=== PATIENT | female | born 1940 | race Caucasian/White ===

== ENCOUNTER 2022-05-01 08:39 | Outpatient (CLI) | payer MEDICARE, BC, SELFPAY ==
--- NOTE | 2022-05-01 | NM_ITS ---
Final Report Patient: ELISE GARCIA Facility:?[facility] Patient ID:?[id number] :?[id number] Study:?NM Cardiac Procedure MYOCARDIAL PERFUSION-05/01/2022 11:14:39 AM Ordering Physician:QUIANA MENDES Final Report: [facility] ? [facility] MYOCARDIAL PERFUSION SCAN, 05/01/2022 CLINICAL HISTORY: 81-year-old female. Dyspnea. Hypertension. Hyperlipidemia. Left bundle branch block. 5 feet 3 inches. 220 pounds. TECHNIQUE: (Resting SPECT and Stress Gated SPECT with wall motion and ejection fraction) Stress: Pharmacologic ? Walking Lexiscan (0.4 mg) (IV) Dose (Stress/Rest): 32.3 mCi / 8.2 mCi Tc-99m Sestamibi Comparison: None FINDINGS: There is good uptake of activity by the left ventricle. No left ventricular enlargement is noted. There is soft tissue attenuation. No other significant fixed or reversible defects are identified. The gated images demonstrate a normal left ventricular ejection fraction of 62 percent. No regional wall motion abnormalities are identified. IMPRESSION: 1) There is no evidence of significant myocardial ischemia or infarction. 2) Normal left ventricular ejection fraction of 62 percent. This study was jointly reviewed by radiology and cardiology. KALLIE NUNES M.D. [employer] [email or web address] VERO/josé luis D& Transcribed: 3:53 p.m. NIKO HARP M.D. Department of Cardiology josé luis/Dictated by: Kallie Nunes MD @ 05/01/2022 2:00:00 PM (Electronic Signature)
[2022-05-01 11:16] VITALS: BP 166/84; PULSE 82; RESP 16
[2022-05-01] MEDS: SODIUM CHLORIDE 0.9 % (FLUSH) 10 ML SYRINGE IVF (11:20)
[2022-05-01] MEDS: REGADENOSON 0.4 MG/5 ML SYRINGE IVP (11:21)
--- NOTE | 2022-05-01 14:55 | PM.ST ---
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 Blood pressure is 163/94 ventricular rate was 72. Standard Lexiscan protocol is done over the total 5 minute course. He had no symptoms at all was able to walk through these. There is no change of her pre-existing ST wave abnormality she saw. Impression: Negative a Lexiscan with no electrographic changes Follow up suggested: Await read from nuclear Medicine and Cardiology on nuclear portion, clinical correlation with this will be needed. Patient left this testing facility in excellent condition
== END 2022-05-01 08:40 | disposition home or self-care (01) ==
LOC: STRESS 08:39
PROVIDERS: PCP Nurse Practitioner Family; Visit Provider Nurse Practitioner Family
DX: R06.00 Dyspnea, unspecified (principal); I10 Essential (primary) hypertension; E78.5 Hyperlipidemia, unspecified; I44.7 Left bundle-branch block, unspecified
CPT/HCPCS: 78452; 93016; 93017; A9500; J2785

== ENCOUNTER 2022-05-23 14:21 | Outpatient (CLI) | payer MEDICARE, SELFPAY ==
--- NOTE | 2022-05-23 14:40 | CRLHL7_ITS ---
For Patients: As a result of the Cures Act, medical imaging exams and procedure reports are released immediately into your electronic medical record. You may view this report before your referring provider. If you have questions, please contact your health care provider. BILATERAL DIGITAL SCREENING MAMMOGRAM WITH COMPUTER-AIDED DETECTION AND TOMOSYNTHESIS, 05/23/2022 CLINICAL HISTORY: Routine screening exam. COMPARISON: 04/11/2020, 04/07/2019, 02/24/2018, 02/22/2017. TECHNIQUE: Digital mammogram in CC and MLO projections including computer-aided detection (CAD) and tomosynthesis. BREAST COMPOSITION: Scattered fibroglandular densities. FINDINGS: RIGHT Breast: No suspicious findings. LEFT Breast: Irregular lesion with distortion upper-outer quadrant 5 cm from the nipple. IMPRESSION: LEFT breast asymmetry/mass. RECOMMENDATIONS: Additional mammographic views of the LEFT breast including 3D spot-compression CC/MLO. LEFT breast ultrasound may also be required. The [facility] will contact the patient for follow-up. BI-RADS Category 0: Incomplete: Need Additional Imaging Evaluation and/or Prior Mammograms for Comparison Dictated by Jj Bates MD @ 06/12/2022 9:12:18 AM JR/Dictated by: Jj Bates MD @ 06/12/2022 9:12:00 AM (Electronically Signed)
== END 2022-05-23 14:22 | disposition home or self-care (01) ==
LOC: MAMMO 14:23
PROVIDERS: PCP Nurse Practitioner Family; Visit Provider Nurse Practitioner Family
DX: Z12.31 Encounter for screening mammogram for malignant neoplasm of breast (principal); N63.20 Unspecified lump in the left breast, unspecified quadrant
CPT/HCPCS: 77063; 77067

== ENCOUNTER 2022-06-19 10:30 | Outpatient (CLI) | payer MEDICARE, BC, SELFPAY ==
--- NOTE | 2022-06-19 10:45 | CRLHL7_ITS ---
For Patients: As a result of the Cures Act, medical imaging exams and procedure reports are released immediately into your electronic medical record. You may view this report before your referring provider. If you have questions, please contact your health care provider. LEFT DIGITAL DIAGNOSTIC MAMMOGRAM WITH TOMOSYNTHESIS AND COMPUTER-AIDED DETECTION, 06/19/2022 LEFT BREAST ULTRASOUND, 06/19/2022 CLINICAL HISTORY: LEFT breast mass/asymmetry. COMPARISON: 05/23/2022 TECHNIQUE: Digital LEFT mammogram in two projections with tomosynthesis and computer-aided detection. Real-time ultrasound imaging of LEFT breast with imaging documentation. BREAST COMPOSITION: There are scattered areas of fibroglandular density. FINDINGS: 3D spot compression CC/MLO LEFT breast mammogram submitted. Spiculated mass within the upper outer quadrant. Benign calcifications. Targeted sonogram performed to the upper outer quadrant LEFT breast at 2 o`clock 4 cm from the nipple. In this location, there is a taller than wide, hypoechoic, spiculated mass measuring 1.5 x 0.8 x 0.9 cm. LEFT axillary lymph node is present with preserved hilum. IMPRESSION: Suspicious spiculated, taller than wide mass in LEFT breast at 2 o`clock 4 cm from the nipple measuring 1.5 cm. RECOMMENDATION: Ultrasound-guided core needle biopsy. BI-RADS Category 5: Highly Suggestive of Malignancy Results and recommendations discussed with the patient. A lay language report of this examination will be provided to the patient. Dictated by Jj Bates MD @ 06/19/2022 11:46:23 AM CRL:aubrie RD/Dictated by: Jj Bates MD @ 06/19/2022 11:46:00 AM (Electronically Signed)
--- NOTE | 2022-06-19 11:15 | CRLHL7_ITS ---
For Patients: As a result of the Century Cures Act, medical imaging exams and procedure reports are released immediately into your electronic medical record. You may view this report before your referring provider. If you have questions, please contact your health care provider. PLEASE SEE LEFT DIAGNOSTIC MAMMOGRAM OF SAME DAY FOR COMBINED REPORT. CRL:aubrie RD/Dictated by: Jj Bates MD @ 06/19/2022 11:46:00 AM (Electronically Signed)
== END 2022-06-19 10:31 | disposition home or self-care (01) ==
LOC: MAMMO 10:34
PROVIDERS: PCP Nurse Practitioner Family; Visit Provider Nurse Practitioner Family
DX: N63.20 Unspecified lump in the left breast, unspecified quadrant (principal); R92.8 Other abnormal and inconclusive findings on diagnostic imaging of breast
CPT/HCPCS: 76642; 77065; G0279

== ENCOUNTER 2022-06-22 10:00 | Outpatient (CLI) | payer MEDICARE, BC, SELFPAY ==
--- NOTE | 2022-06-22 10:15 | CRLHL7_ITS ---
For Patients: As a result of the Century Cures Act, medical imaging exams and procedure reports are released immediately into your electronic medical record. You may view this report before your referring provider. If you have questions, please contact your health care provider. ULTRASOUND-GUIDED BREAST BIOPSY AND POST-BIOPSY DIGITAL MAMMOGRAM FOR BIOPSY MARKER PLACEMENT CLINICAL HISTORY: Suspicious lesion. COMPARISON STUDIES: 06/19/2022 TECHNIQUE: Real-time ultrasound with image documentation was used for targeting the breast lesion. Core biopsy specimens were obtained using an automated gun with a 18-gauge biopsy needle. Post-biopsy CC and ML digital mammograms were obtained to document position of the biopsy marker. CONSENT and TIME OUT: The procedure, risks, and alternatives were explained to the patient and a consent was signed. [place] Protocol was followed including pre-procedure verification that relevant information/documentation was available, reviewed and properly matched to the patient; consent accurate and complete; and equipment and supplies available. Time Out was conducted just prior to starting procedure to verify the four required elements: patient identity, correct side/site marked (if applicable), procedure, relevant images/results properly labeled and displayed (if applicable). PROCEDURE: The patient was positioned supine on the ultrasound table. The breast was prepped with ChloraPrep. 8 cc 1 percent lidocaine used for local anesthesia. Core samples were obtained. A sterile metal biopsy clip was placed percutaneously to narinder the lesion position within the breast. The specimens were placed in 10% formalin and sent to the pathology department. Pressure was held on the biopsy site until all bleeding subsided. The skin incision was closed with Steri-Strips. An ice pack was positioned over the biopsy site. Post-biopsy instructions were reviewed with the patient, and a written copy was given to her. LATERALITY: LEFT breast. LESION: Hypoechoic taller than wide spiculated mass measuring 1.5 x 0.8 x 0.9 cm at mid depth at 2 o`clock 4 cm from the nipple. SUSPICION FOR MALIGNANCY: High. NUMBER OF SAMPLES: 5 BIOPSY CLIP SHAPE: Coil. PROXIMITY OF CLIP TO TARGET: Within the lesion. IMPRESSION: Ultrasound-guided breast biopsy. When the pathology report is available, an addendum to this report will be made. ACR not applicable Dictated by Jj Bates MD @ 06/22/2022 11:03:13 AM/gamal RADHA/Dictated by: Jj Bates MD @ 06/22/2022 11:03:00 AM ----- ADDENDUM ----- Pathology consistent with invasive ductal carcinoma. This is concordant. Appropriate action recommended. Dictated by Jj Bates MD @ Jun 22 2022 11:03AM Signed by:?Jj Bates MD @06/22/2022 3:12:08 PM (Electronically Signed)
--- NOTE | 2022-06-22 10:30 | CRLHL7_ITS ---
For Patients: As a result of the Century Cures Act, medical imaging exams and procedure reports are released immediately into your electronic medical record. You may view this report before your referring provider. If you have questions, please contact your health care provider. PLEASE SEE LEFT ULTRASOUND-GUIDED BIOPSY OF SAME DAY. CRL:gamal RADHA/Dictated by: Jj Bates MD @ 06/22/2022 11:03:00 AM (Electronically Signed)
--- NOTE | 2022-07-02 15:50 | ONC.NURNOTE ---
Accompanied pt to surgical consult with Dr. Lamas and pt's son Anirudh and friend Betty. Per Dr. Lamas, pt to choose whether or not to have Breast MRI, as it would not likely affect surgical plan of either lumpectomy or mastectomy. Pt consider type of surgery and also whether to pursue genetic counseling as she does have a granddaughter. She will call BNN in a few days; BNN to f/u.
== END 2022-06-22 10:01 | disposition home or self-care (01) ==
PROVIDERS: PCP Nurse Practitioner Family; Visit Provider Nurse Practitioner Family
DX: C50.912 Malignant neoplasm of unspecified site of left female breast (principal); Z17.0 Estrogen receptor positive status [ER+]
CPT/HCPCS: 19083; 77065; 88305; 88360; 88361; A4648; A4649

== ENCOUNTER 2022-07-10 08:14 | Outpatient (CLI) | payer MEDICARE, BC, SELFPAY ==
--- OUTSIDE RECORDS SUMMARY | 2022-07-10 08:17 | XMS_ITS | Encounter Summary ---
:1940 Author Organization [facility] Address [address] [place] [address] Care Team Providers Name Role Phone Igor Horn P.A.-C. Primary Care Provider [phone] Encounter Details Date Type Department Care Team Description 10/23/2021 Clinical Communication Department of Igor Byrd, Medicine, Bertha Langley [facility], in [address] [address] [place], [place] [phone] (Work) [phone] Social History Tobacco Use Types Packs/Day Years Used Date Smoking Tobacco: Never Smokeless Tobacco: Never Alcohol Use Standard Drinks/Week Comments Yes 1 (1 standard drink = 0.6 oz pure alcoho l) very rarely Alcohol Habits Answer Date Recorded How often do you have a drink containing Monthly or less 03/16/2022 alcohol? How many drinks containing alcohol do you have Patient does not drink 03/16/2022 on a typical day when you are drinking? How often do you have six or more drinks on one Never 03/16/2022 occasion? Comment: very rarely 02/06/2018 Social Isolation Answer Date Recorded In a typical week, how many times do you More than three bisi es a week 03/16/2022 talk on the phone with family, friends, or neighbors? How often do you get together with friends Once a week 03/16/2022 or relatives? How often do you attend judaism or More than 4 times per year 03/16/2022 adventism services? Do you belong to any clubs or Yes 03/16/2022 organizations such as judaism groups, unions, fraternal or athletic groups, or school groups? How often do you attend meetings of the More than 4 times [facility] year 03/16/2022 clubs or organizations you belong to? Are you now , , , 03/16/2022 , never or living with a partner? Physical Activity Answer Date Recorded On average, how many days per week do you engage in moderate to 5 days 03/16/2022 strenuous exercise (like walking fast, running, jogging, dancing, swimming, biking, or other activities that cause a light or heavy sweat)? On average, how many minutes do you engage in exercise at is 30 min 03/16/2022 level? Stress Answer Date Recorded Do you feel stress - tense, restless, nervous, or Only a lit tle 03/16/2022 anxious, or unable to sleep at night because your mind is troubled all the time - these days? Financial Resource Strain Answer Date Recorded How hard is it for you to pay for the very basics like Not h sheyla at all 03/16/2022 food, housing, medical care, and heating? Intimate Partner Violence Answer Date Recorded Within the last year, have you been afraid of your partner o r No 03/16/2022 ex-partner? Within the last year, have you been humiliated or emotionall y No 03/16/2022 abused in other ways by your partner or ex-partner? Within the last year, have you been kicked, hit, slapped, or No 03/16/2022 otherwise physically hurt by your partner or ex-partner? Within the last year, have you been raped or forced to have any No 03/16/2022 kind of sexual activity by your partner or ex-partner? Food Insecurity Answer Date Recorded Within the past 12 months, you worried that your food would Never true 03/16/2022 run out before you got money to buy more. Within the past 12 months, the food you bought just didn't N ever true 03/16/2022 last and you didn't have money to get more. Transportation Needs Answer Date Recorded In the past 12 months, has lack of transportation kept you f rom No 03/16/2022 medical appointments or from getting medications? In the past 12 months, has lack of transportation kept you f rom No 03/16/2022 meetings, work, or getting things needed for daily living? Housing Stability Answer Date Recorded In the last 12 months, was there a time when you were not ab le No 03/16/2022 to pay the mortgage or rent on time? In the last 12 months, how many places have you lived? 2 02/15/2021 In the last 12 months, was there a time when you did not hav e a No 03/16/[address] or slept in a long term (including now)? Education Answer Date Recorded What is the highest level of school Master's degree (e.g., M Yady, MS, 02/15/2021 you have completed or the highest Roland, MEd, FINANCE OFFICER, MARIE) degree you have received? Sex Assigned at Date Recorded Female 06/26/2021 8:35 AM CDT documented as of this encounter Plan of Treatment Not on filedocumented as of this encounter Visit Diagnoses Not on filedocumented in this encounter Care Teams Supervisor [employer]umping [employer] Relationship Specialty Start Date End Date Igor Horn P.A.-C. PCP - General 06/14/18 03/15/22 [address] [place] [phone] documented as of this encounter
--- OUTSIDE RECORDS SUMMARY | 2022-07-10 08:17 | XMS_ITS | Encounter Summary ---
:1940 Author Organization [facility] Address [address] [place] [address] Care Team Providers Name Role Phone Igor Horn P.A.-C. Primary Care Provider [phone] Reason for Visit Reason Comments Med Refill Encounter Details Date Type Department Care Team Description 02/16/2022 Refill Department of Family Medicine, Igor Ross P.A.-C. Med Refill [facility], in [address] [place] [phone] [place] [address] [place] [address] [phone] Social History Tobacco Use Types Packs/Day Years [...] or relatives? How often do you attend mu-ism or More than 4 times per year 03/16/2022 methodist services? Do you belong to any clubs or Yes 03/16/2022 organizations such as mu-ism groups, unions, fraternal or athletic groups, or school groups? How often do you attend meetings of the More than 4 times pe r year 03/16/2022 clubs or organizations you belong [...] minutes do you engage in exercise at th is 30 min 03/16/2022 level? Stress Answer [...] place to sleep or slept in a penitentiary (including now)? Education Answer Date Recorded What is the highest level of school Master's degree (e.g., M A, MS, 02/15/2021 you have completed or the highest Roland, MEd, PROCUREMENT ENGINEER, MARIE) degree you have received? Sex Assigned at Date Recorded Female 06/26/2021 8:35 AM CDT documented as of this encounter Plan of Treatment Not on filedocumented as of this encounter Visit Diagnoses Not on filedocumented in this encounter Care Teams Mortgage Underwriter Relationship Specialty Start Date End Date Igor Horn P.A.-C. PCP - General 06/14/18 03/15/22 [address] [place] [phone] documented as of this encounter
--- OUTSIDE RECORDS SUMMARY | 2022-07-10 08:17 | XMS_ITS | Encounter Summary ---
:1940 Author Organization [facility] Address [address] [place] [address] Care Team Providers Name Role Phone Igor Horn P.A.-C. Primary Care Provider [phone] Reason for Visit Reason Comments Med Refill Encounter Details Date Type Department Care Team Description 02/17/2022 Refill Department of Family Medicine, Igor Ross P.A.-C. Med Refill [facility], in [address] [place] [phone] [place] [address] [place] [address] [phone] Social History Tobacco Use Types Packs/Day Years [...] or relatives? How often do you attend congregation or More than 4 times per year 03/16/2022 nondenominational services? Do you belong to any clubs or Yes 03/16/2022 organizations such as congregation groups, unions, fraternal or athletic groups, or [...] place to sleep or slept in a jail (including now)? Education Answer Date Recorded What is the highest level of school Master's degree (e.g., M A, MS, 02/15/2021 you have completed or the highest Roland, MEd, HOUSECALLS NURSE, MARIE) degree you have received? Sex Assigned at Date Recorded Female 06/26/2021 8:35 AM CDT documented as of this encounter Miscellaneous Notes Telephone Encounter - Jacob Parish - 02/19/2022 7:18 AM CDT Added to another encounter documented in this encounter Plan of Treatment Not on filedocumented as of this encounter Visit Diagnoses Not on filedocumented in this encounter Care Teams Broomcorn Scraper Relationship Specialty Start Date End Date Igor Horn P.A.-C. PCP - General 06/14/18 03/15/22 [address] [place] [phone] documented as of this encounter
--- OUTSIDE RECORDS SUMMARY | 2022-07-10 08:17 | XMS_ITS | Encounter Summary ---
:1940 Author Organization [facility] Address [address] [place] [address] Care Team Providers Name Role Phone Igor Horn P.A.-C. Primary Care Provider [phone] Encounter Details Date Type Department Care Team Description 02/19/2022 Clinical Communication Department of Igor Byrd, Medicine, Bertha Langley [facility], in [address] [address] [place], [place] [phone] (Work) [phone] Social History Tobacco Use Types Packs/Day Years [...] or relatives? How often do you attend synagogue or More than 4 times per year 03/16/2022 cheondoism services? Do you belong to any clubs or Yes 03/16/2022 organizations such as synagogue groups, unions, fraternal or athletic groups, or school groups? How often do you attend meetings of the More than 4 times [facility] year 03/16/2022 clubs or organizations you belong [...] place to sleep or slept in a fpc (including now)? Education Answer Date Recorded What is the highest level of school Master's degree (e.g., M A, MS, 02/15/2021 you have completed or the highest Roland, MEd, VOCATIONAL REHABILITATION CONSULTANT, MARIE) degree you have received? Sex Assigned at Date Recorded Female 06/26/2021 8:35 AM CDT documented as of this encounter Miscellaneous Notes Telephone Encounter - Clarice Reaves LAntwanP.N. - 02/19/2022 9:40 AM CDT Taken care of in a portal message. Telephone Encounter - Fide Ventura - 02/19/2022 9:30 AM CDT Reason for Communication: Patient calling states she was diagnosed with COVID. She does has asthma. Inquiring if she would be a candidate for the Paxlovid medication? Please advise. Current Can Nursing/Provider leave a detailed message?: no Did the patient refuse triage through Nurse line? (for symptom based concerns): n/a Action Needed: Call back Name of Medication (if relevant): [facility] Please send all scheduling replies to scheduling pool. documented in this encounter Plan of Treatment Not on filedocumented as of this encounter Visit Diagnoses Not on filedocumented in this encounter Care Teams Draw String Knotter Relationship Specialty Start Date End Date Igor Horn P.A.-C. PCP - General 06/14/18 03/15/22 [address] [place] [phone] documented as of this encounter
--- OUTSIDE RECORDS SUMMARY | 2022-07-10 08:17 | XMS_ITS | Encounter Summary ---
:1940 Author Organization [facility] Address [address] [place] [address] Care Team Providers Name Role Phone Igor Horn P.A.-C. Primary Care Provider [phone] Reason for Referral Outpatient (Routine) - Closed Specialty Diagnoses / Procedures Referred By Contact Refer red To Contact Diagnoses Asthma Intrinsic (HCC) Valdemar Ma M.D. [facility] Procedures Spirometry [address] [place] [phone] Referral ID Status Reason Start Date Expiration Date Visits Requ ested Visits Authorized [id number] Closed 02/12/2022 02/12/2023 1 1 Encounter Details Date Type Department Care Team Description 02/12/2022 Clinical Communication Division of Allergic Valdemar Ma Diseases in Geovani Ryder M.D. [address] [place] [phone] Social History Tobacco Use Types Packs/Day Years [...] or relatives? How often do you attend restoration or More than 4 times per year 03/16/2022 rastafarian services? Do you belong to any clubs or Yes 03/16/2022 organizations such as restoration groups, unions, fraternal or athletic groups, or [...] place to sleep or slept in a longterm (including now)? Education Answer Date Recorded What is the highest level of school Master's degree (e.g., M A, MS, 02/15/2021 you have completed or the highest Roland, MEd, WATER TREATMENT PLANT MECHANIC, MARIE) degree you have received? Sex Assigned at Date Recorded Female 06/26/2021 8:35 AM CDT documented as of this encounter Miscellaneous Notes Telephone Encounter - Fabiana Mejia - 02/12/2022 10:12 AM CDT Cale Ma, Patient is coming back to follow up with you. Last Seen: 03/07/21 Future Appointment Date: 03/20/22 Prior Indication(s):Asthma New Symptoms: No Testing Order: Please order breathing test Thank you! documented in this encounter Plan of Treatment Not on filedocumented as of this encounter Results Spirometry (03/20/2022 8:51 AM CDT) [facility] Time Signature VC MAX POST 2.57 L 03/20/2022 [place] [facility] 2:58 PM CDT SUITE PostFVC 2.31 L 03/20/2022 [place] [facility] 2:58 PM CDT SUITE PostFEV1 1.59 L 03/20/2022 [place] [facility] 2:58 PM CDT SUITE FEV1/FVC POST 68.91 % 03/20/2022 [place] [facility] 2:58 PM CDT SUITE FEF 25-75 % 0.97 L/s 03/20/2022 [place] [facility] 2:58 PM CDT SUITE PEF POST 4.78 L/s 03/20/2022 [place] 2:58 PM CDT SUITE FET POST 16.80 sec 03/20/2022 [place] [facility] 2:58 PM CDT SUITE VC MAX PRE 2.24 L 03/20/2022 [place] [facility] 2:58 PM CDT SUITE FVC 2.12 L 03/20/2022 [place] [facility] 2:58 PM CDT SUITE FEV1 1.40 L 03/20/2022 [place] 2:58 PM CDT SUITE FEV1/FVC 66.11 % 03/20/2022 [place] [facility] 2:58 PM CDT SUITE LLJ00-13% 0.82 L/s 03/20/2022 [place] [facility] 2:58 PM CDT SUITE PEF PRE 4.64 L/s 03/20/2022 [place] 2:58 PM CDT SUITE FET PRE 18.40 sec 03/20/2022 [place] 2:58 PM CDT SUITE SUBSTANCE POST Albuterol 03/20/2022 [place] 2:58 PM CDT SUITE DOSE POST 2 Puff 03/20/2022 [place] 2:58 PM CDT SUITE % PRED VC MAX 91 % % 03/20/2022 [place] 2:58 PM CDT SUITE FVC% 86 % % 03/20/2022 [place] 2:58 PM CDT SUITE FEV1% 75 % % 03/20/2022 [place] [facility] 2:58 PM CDT SUITE % PRED 86 % % 03/20/2022 [facility] FEV1/FVC 2:58 PM CDT SUITE % PRED FEF 54 % % 03/20/2022 [place] [facility] 25-75% 2:58 PM CDT SUITE % PRED PEF 91 % % 03/20/2022 [facility] 2:58 PM CDT SUITE PRED VC MAX 2.46 03/20/2022 [facility] 2:58 PM CDT SUITE PRED FVC 2.46 03/20/2022 [facility] 2:58 PM CDT SUITE PRED FEV 1 1.87 03/20/2022 [facility] 2:58 PM CDT SUITE PRED FEV1/FVC 77.2 03/20/2022 [facility] 2:58 PM CDT SUITE PRED FEF 1.53 03/20/2022 [facility] 25-75% 2:58 PM CDT SUITE PRED PEF 5.1 03/20/2022 [facility] 2:58 PM CDT SUITE Specimen (Source) Anatomical Collection Method Collection Time Re ceived Time Location / / Volume Laterality 03/20/2022 8:51 AM CDT Impressions [facility] - 03/20/2022 2:58 PM C DT within normal limits Narrative This result has an attachment that is no t available. Procedure Note Valdemar Ma M.D. - 03/20/2022For matting of this note might be different from the original. IMPRESSION: within normal limits Valdemar Ma M.D. PFT ORDERABLES Performing Organization Address City/State/ZIP Code Phon e Number [facility] NA documented in this encounter Visit Diagnoses Diagnosis Asthma Intrinsic (HCC) - Primary Asthma Intrinsic (HCC) documented in this encounter Care Teams Night Worker Relationship Specialty Start Date End Date Igor Horn P.A.-C. PCP - General 06/14/18 03/15/[address] [place] [phone] documented as of this encounter
--- OUTSIDE RECORDS SUMMARY | 2022-07-10 08:17 | XMS_ITS | Encounter Summary ---
:1940 Author Organization [facility] Address [address] [place] [address] Care Team Providers Name Role Phone Igor Horn P.A.-C. Primary Care Provider [phone] Reason for Visit Reason Onset Date Comments Testing For Upper Respiratory Virus Symptoms 10/23/2021 Encounter Details Date Type Department Care Team Description 10/23/2021 External Outreach Department of [facility] Kartik Jimenez Contact With And (Suspected) Exposure To COVID-19; Medicine, [facility] John Durant Infection Upper Respiratory Building, in [address] [place], [place] [address] [facility] [address] [place], [place] [phone] (Work) [phone] Social History Tobacco Use Types Packs/Day Years [...] or relatives? How often do you attend restorationist or More than 4 times per year 03/16/2022 jehovah's witness services? Do you belong to any clubs or Yes 03/16/2022 organizations such as restorationist groups, unions, fraternal or athletic groups, or [...] place to sleep or slept in a nursing home (including now)? Education Answer Date Recorded What is the highest level of school Master's degree (e.g., M A, MS, 02/15/2021 you have completed or the highest Roland, MEd, HISTOPATH TECH, MARIE) degree you have received? Sex Assigned at Date Recorded Female 06/26/2021 8:35 AM CDT documented as of this encounter Progress Notes Trang Bueno, R.N. - 10/23/2021 9:57 AM CST Encounter created for symptomatic infectious disease screening with possible COVID, Influenza, RSV, and/or Group A Strep testing. N MAKER HAND documented in this encounter Plan of Treatment Not on filedocumented as of this encounter Procedures Procedure Name Priority Date/Time Associated Diagnosis Comme nts SARS CORONAVIRUS-2 Routine 10/23/2021 2:57 PM Contact With And Results for this RNA, V CHAIN MAKER HAND (Suspected) Exposure procedu re are in To COVID-19 the results section. SARS-COV-2, FLU Routine 10/23/2021 2:56 PM Result s for this A+B, AND RSV PCR, V CHAIN MAKER HAND procedur e are in the results section. RSV RNA PCR DETECT, Routine 10/23/2021 2:56 PM Re sults for this V CHAIN MAKER HAND procedure are i n the results section. documented in this encounter Results SARS Coronavirus-2 RNA, V Symptomatic (10/23/2021 2:57 PM CHAIN MAKER HAND) [facility] gist Method Time Signature SARS-CoV-2 Swab, 10/24/2021 MKTO Specimen Nasopharynx 12:21 PM Source CHAIN MAKER HAND SARS CoV-2 Undetected Undetected 10/24/2021 MKTO RNA, TMA 12:21 PM CHAIN MAKER HAND Comment: SARS-CoV-2 RNA absent. This result does not rule out COVID-19 in the patient, as the sensitivity of the test depends o n the timing of the specimen collection and the quality of the specim en. Result should be correlated with patient's history and clinical presentat ion. ----ADDITIONAL INFORMATION---- This molecular amplification test was pe rformed using the Aptima SARS-CoV-2 assay ([employer] Inc[employer] on the Fu[employer] Solutionss tem under emergency use authorization (EUA) by the U.S. Food and Drug Administ ration. Fact sheets for this EUA assay can be fo und at the following links: For Healthcare Providers: https://www.fd a.gov/media/830971/download For Patients: https://www.fda.gov/media/ 178664/download Specimen Anatomical Collection Method Collection Time Receive d Time (Source) Location / / Volume Laterality Varies 10/23/2021 2:57 PM 2 (Nasopharynx) CHAIN MAKER HAND 10:30 PM CHAIN MAKER HAND Kartik Jimenez D.O. LAB MICROBIOLOGY - GENERAL O RDERABLES Performing Organization Address City/State/ZIP Code Phon e Number [facility]- [address] [place] [phone] [place] [address] System in [place] [address] [place] [address] RSV RNA PCR Detect, V (10/23/2021 2:56 PM CHAIN MAKER HAND) Analysis Performed At [facility] logist Time Signature RSV RNA PCR Undetected Undetected 10/25/2021 SDS 1:08 PM CHAIN MAKER HAND Comment: RSV RNA is absent. RSV Specimen Source Nasopharynx 10/25/2021 1:08 PM CHAIN MAKER HAND SDSC Comment: ----ADDITIONAL INFORMATION---- Testing was performed using the leann In fluenza A/B & RSV UC assay ([employer] on the leann 68 00 / 8800 System, and only the RSV portion of this assay has been validated for testing. This test was developed and its performa nce characteristics determined by [facility] in a manner consistent with CLIA requirements. This test has not been cleared or approved by the U.S. Mark d and Drug Administration. Specimen Anatomical Collection Method Collection Time Receive d Time (Source) Location / / Volume Laterality Varies 10/23/2021 2:56 PM 6:15 CHAIN MAKER HAND PM CHAIN MAKER HAND Kartik Jimenez D.O. LAB MICROBIOLOGY - GENERAL O RDERABLES Performing Organization Address City/State/ZIP Code Phon e Number [facility] [address] [place], [place] [address] SUPPORT CENTER [facility] [place] [address] Laboratory Medicine and Pathology [address] [place] (ABNORMAL) SARS-CoV-2, Flu A+B, and RSV PCR, V (10/23/2021 2:56 PM CHAIN MAKER HAND) [facility] Method Time Signature Influenza A Detected (A) Undetected 10/24/2021 [facility] RNA PCR 11:22 PM CHAIN MAKER HAND Comment: Influenza A RNA present. Influenza B RNA PCR Undetected Undetected 10/24/2021 11:22 P M CHAIN MAKER HAND [facility] Comment: Influenza B RNA absent. SARS CoV-2 RNA PCR Undetected Undetected 10/24/2021 11:22 PM CHAIN MAKER HAND [facility] Comment: SARS-CoV-2 RNA absent. This result does not rule out COVID-19 in the patient, as the sensitivity of the test depends o n the timing of the specimen collection and the quality of the specim en. Result should be correlated with patient's history and clinical presentat ion. SARS-CoV-2 & Flu A/B Specimen Source Nasopharynx 0 10/24/2021 11:22 PM CHAIN MAKER HAND [facility] Comment: ----ADDITIONAL INFORMATION---- This PCR test is performed using the cob as SARS-CoV-2 & Influenza A/B assay ([employer]enn[employer] on the c bala 6800 / 8800 Systems, and it has received Emergency Use Authorization (EU A) by the U.S. Food and Drug Administration. Fact sheets for this Emergency Use Autho rization (EUA) assay can be found at the following links: https://www.fda.gov/media/442185/downloa d for Healthcare Providers https://www.fda.gov/media/413337/downloa d for Patients Specimen Anatomical Collection Method Collection Time Receive d Time (Source) Location / / Volume Laterality Varies 10/23/2021 2:56 PM 6:15 CHAIN MAKER HAND PM CHAIN MAKER HAND Kartik Jimenez D.O. LAB MICROBIOLOGY - GENERAL O RDERAGIOVANI Performing Organization Address City/State/[facility] Code Phon e Number [facility] [address] [place], [place] [address] SUPPORT CENTER [facility] [address] Laboratory Medicine and Pathology [address] [place] documented in this encounter Visit Diagnoses Diagnosis Contact With And (Suspected) Exposure To COVID-19 Infection Upper Respiratory documented in this encounter Additional Health Concerns Infection Onset Date Last Indicated Resolved Time COVID19 Pending 10/23/2021 10/23/2021 10/24/2021 12:22 PM CHAIN MAKER HAND documented as of this encounter Care Teams Programming Development Project Manager Relationship Specialty Start Date End Date Igor Horn P.A.-C. PCP - General 06/14/18 03/15/22 [address] [place] [phone] documented as of this encounter
--- OUTSIDE RECORDS SUMMARY | 2022-07-10 08:17 | XMS_ITS | Encounter Summary ---
:1940 Author Organization [facility] Address [address] [place] [address] Care Team Providers Name Role Phone Igor Horn P.A.-C. Primary Care Provider [phone] Reason for Visit Reason Comments Med Refill Encounter Details Date Type Department Care Team Description 02/16/2022 Refill Department of Family Medicine, Igor Ross P.A.-C. Med Refill [facility], in [address] [place] [phone] [place] [address] [place] [address] [phone] Social History Tobacco Use Types Packs/Day Years [...] or relatives? How often do you attend sikh or More than 4 times per year 03/16/2022 taoism services? Do you belong to any clubs or Yes 03/16/2022 organizations such as sikh groups, unions, fraternal or athletic groups, or [...] place to sleep or slept in a care home (including now)? Education Answer Date Recorded What is the highest level of school Master's degree (e.g., M A, MS, 02/15/2021 you have completed or the highest Roland, MEd, DELICATESSEN DEPARTMENT MANAGER, MARIE) degree you have received? Sex Assigned at Date Recorded Female 06/26/2021 8:35 AM CDT documented as of this encounter Plan of Treatment Not on filedocumented as of this encounter Visit Diagnoses Not on filedocumented in this encounter Care Teams Transcription Specialist Relationship Specialty Start Date End Date Igor Horn P.A.-C. PCP - General 06/14/18 03/15/22 [address] [place] [phone] documented as of this encounter
--- OUTSIDE RECORDS SUMMARY | 2022-07-10 08:17 | XMS_ITS | Encounter Summary ---
:1940 Author Organization [facility] Address [address] [place] [address] Care Team Providers Name Role Phone Igor Horn P.A.-C. Primary Care Provider [phone] Reason for Visit Reason Comments Med Refill Encounter Details Date Type Department Care Team Description 02/18/2022 Refill Department of Family Medicine, Igor Ross P.A.-C. Med Refill [facility], in [address] [place] [phone] [place] [address] [place] [address] [phone] Social History Tobacco Use Types Packs/Day Years [...] or relatives? How often do you attend rastafarian or More than 4 times per year 03/16/2022 rastafari services? Do you belong to any clubs or Yes 03/16/2022 organizations such as rastafarian groups, unions, fraternal or athletic groups, or [...] have completed or the highest Roland, MEd, ALPACA FARMER, MARIE) degree you have received? Sex Assigned at Date Recorded Female 06/26/2021 8:35 AM CDT documented as of this encounter Miscellaneous Notes Telephone Encounter - Jacob Parish - 02/19/2022 7:19 AM CDT Pravastatin is Lab Results Component Value Date TSH 2.8 02/15/2021 TSH lab already scheduled documented in this encounter Plan of Treatment Not on filedocumented as of this encounter Visit Diagnoses Not on filedocumented in this encounter Care Teams Nursing Consultant Relationship Specialty Start Date End Date Igor Horn P.A.-C. PCP - General 06/14/18 03/15/22 [address] [place] [phone] documented as of this encounter
--- OUTSIDE RECORDS SUMMARY | 2022-07-10 08:17 | XMS_ITS | Encounter Summary ---
:1940 Author Organization [facility] Address [address] [place] [address] Care Team Providers Name Role Phone Elsewhere, Pcp Primary Care Provider Unavailable Reason for Visit Reason Comments Pre-visit Intake Encounter Details Date Type Department Care Team Description 03/16/2022 Clinical Communication Visit Review in Pr e-visit Intake [address] [address] Social History Tobacco Use Types Packs/Day Years [...] or relatives? How often do you attend holiness or More than 4 times per year 03/16/2022 mandaen services? Do you belong to any clubs or Yes 03/16/2022 organizations such as holiness groups, unions, fraternal or athletic groups, or [...] place to sleep or slept in a senior care (including now)? Education Answer Date Recorded What is the highest level of school Master's degree (e.g., Giuliano Conteh, MS, 02/15/2021 you have completed or the highest Roland, MEd, ENGINEERING PROJECT MANAGER, MARIE) degree you have received? Sex Assigned at Date Recorded Female 06/26/2021 8:35 AM CDT documented as of this encounter Plan of Treatment Not on filedocumented as of this encounter Visit Diagnoses Not on filedocumented in this encounter Additional Health Concerns Infection Onset Date Last Indicated Resolved Time COVID19 Pending 03/16/2022 03/16/2022 03/16/2022 11:54 PM CDT documented as of this encounter Care Teams Bicycle Repairman Relationship Specialty Start Date End Date Elsewhere, Pcp PCP - General Internal Medicine 03/16/22 documented as of this encounter
--- OUTSIDE RECORDS SUMMARY | 2022-07-10 08:17 | XMS_ITS | Encounter Summary ---
:1940 Author Organization [facility] Address [address] [place] [address] Care Team Providers Name Role Phone Elsewhere, Pcp Primary Care Provider Unavailable Reason for Visit Reason Comments Allergy Testing Spirometry Outpatient (Routine) - Closed Specialty Diagnoses / Procedures Referred By Contact Refer red To Contact Diagnoses Asthma Intrinsic ([facility]) Valdemar Ma M.D. [facility] Procedures Spirometry [address] [place] [phone] Referral ID Status Reason Start Date Expiration Date Visits Requ ested Visits Authorized [id number] Closed 02/12/2022 02/12/2023 1 1 Encounter Details Date Type Department Care Team Description 03/20/2022 Clinical Support Division of Allergic Valdemar Ma M.D. [address] [place] [phone] Asthma Intrinsic Diseases in [place] Dominique R.N. ([facility]) [place], [place] [address] [place] [phone] Social History Tobacco Use Types Packs/Day Years [...] or relatives? How often do you attend jain or More than 4 times per year 03/16/2022 synagogue services? Do you belong to any clubs or Yes 03/16/2022 organizations such as jain groups, unions, fraEpiSensor or athletic groups, or school groups? How [...] have completed or the highest Roland, MEd, SIGN MAINTENANCE, MARIE) degree you have received? Sex Assigned at Date Recorded Female 06/26/2021 8:35 AM CDT documented as of this encounter Plan of Treatment Not on filedocumented as of this encounter Procedures Procedure Name Priority Date/Time Associated Comments Diagnosis NC BRONCHODILATION Routine 03/20/2022 8:51 Asthma Intrinsic Re sults for this RESPONSIVENESS AM CDT (HCC) procedure are in the results section. documented in this encounter Results Spirometry (03/20/2022 8:51 AM CDT) Analysis Performed At Patho logist Time Signature VC MAX POST 2.57 L 03/20/2022 [facility] 2:58 PM CDT SUITE PostFVC 2.31 L 03/20/2022 [facility] 2:58 PM CDT SUITE PostFEV1 1.59 L 03/20/2022 [facility] 2:58 PM CDT SUITE FEV1/FVC POST 68.91 % 03/20/2022 [place] [facility] 2:58 PM CDT SUITE FEF 25-75 % 0.97 L/s 03/20/2022 [place] [facility] 2:58 PM CDT SUITE PEF POST 4.78 L/s 03/20/2022 [place] 2:58 PM CDT SUITE FET POST 16.80 sec 03/20/2022 [place] [facility] 2:58 PM CDT SUITE VC MAX PRE 2.24 L 03/20/2022 [place] [facility] 2:58 PM CDT SUITE FVC 2.12 L 03/20/2022 [place] [facility] 2:58 PM CDT SUITE FEV1 1.40 L 03/20/2022 [place] [facility] 2:58 PM CDT SUITE FEV1/FVC 66.11 % 03/20/2022 [place] [facility] 2:58 PM CDT SUITE PET25-97% 0.82 L/s 03/20/2022 [place] [facility] 2:58 PM CDT SUITE PEF PRE 4.64 L/s 03/20/2022 [place] [facility] 2:58 PM CDT SUITE FET PRE 18.40 sec 03/20/2022 [place] [facility] 2:58 PM CDT SUITE SUBSTANCE POST Albuterol 03/20/2022 [place] [facility] 2:58 PM CDT SU[address] DOSE POST 2 Puff 03/20/2022 [place] [facility] 2:58 PM CDT SUITE % PRED VC MAX 91 % % 03/20/2022 [place] [facility] 2:58 PM CDT SUITE FVC% 86 % % 03/20/2022 [place] [facility] 2:58 PM CDT SUITE FEV1% 75 % % 03/20/2022 [place] [facility] 2:58 PM CDT SUITE % PRED 86 % % 03/20/2022 [place] [facility] FEV1/FVC 2:58 PM CDT SUITE % PRED FEF 54 % % 03/20/2022 [facility] 25-75% 2:58 PM CDT SUITE % PRED PEF 91 % % 03/20/2022 [place] [facility] 2:58 PM CDT SUITE PRED VC MAX 2.46 03/20/2022 [place] [facility] 2:58 PM CDT SUITE PRED FVC 2.46 03/20/2022 [facility] 2:58 PM CDT SUITE PRED FEV 1 1.87 03/20/2022 [place] [facility] 2:58 PM CDT SUITE PRED FEV1/FVC 77.2 03/20/2022 [facility] 2:58 PM CDT SU[address] PRED FEF 1.53 03/20/2022 [facility] 25-75% 2:58 PM CD[address] SU[address] PRED PEF 5.1 03/20/2022 [facility] 2:58 PM CDT SUITE Specimen (Source) Anatomical Collection Method Collection Time Re ceived Time Location / / Volume Laterality 03/20/2022 8:51 AM CDT Impressions [facility] - 03/20/2022 2:58 PM C DT within normal limits Narrative This result has an attachment that is no t available. Procedure Note Valdemar Ma M.D. - 03/20/2022For matting of this note might be different from the original. IMPRESSION: within normal limits Valdemar Ma M.D. PFT ORDERABLES Performing Organization Address City/State/ZIP Code Phon e Number [facility] NA documented in this encounter Visit Diagnoses Diagnosis Asthma Intrinsic (HCC) documented in this encounter Care Teams Flexographic Printing Press Operator Relationship Specialty Start Date End Date Elsewhere, Pcp PCP - General Internal Medicine 03/16/22 documented as of this encounter
--- OUTSIDE RECORDS SUMMARY | 2022-07-10 08:17 | XMS_ITS | Encounter Summary ---
:1940 Author Organization [facility] Address [address] [place] [address] Care Team Providers Name Role Phone Elsewhere, Pcp Primary Care Provider Unavailable Reason for Visit Reason Comments Med Refill Encounter Details Date Type Department Care Team Description 02/19/2022 Refill Department of Family Medicine, Igor Ross P.A.-C. Med Refill [facility], in [address] [place] [phone] [place] [address] [place] [address] [phone] Social History Tobacco Use Types Packs/Day Years [...] or relatives? How often do you attend hindu or More than 4 times per year 03/16/2022 tenriism services? Do you belong to any clubs or Yes 03/16/2022 organizations such as hindu groups, unions, fraternal or athletic groups, or [...] place to sleep or slept in a fdc (including now)? Education Answer Date Recorded What is the highest level of school Master's degree (e.g., Giuliano Conteh, MS, 02/15/2021 you have completed or the highest Roland, MEd, MACHINE GUN MECHANIC, MARIE) degree you have received? Sex [...] documented as of this encounter Care Teams Oracle Database Developer Relationship Specialty Start Date End Date Elsewhere, Pcp PCP - General Internal Medicine 03/16/22 documented as of this encounter
--- OUTSIDE RECORDS SUMMARY | 2022-07-10 08:17 | XMS_ITS | Encounter Summary ---
:1940 Author Organization [facility] Address [address] [place] [address] Care Team Providers Name Role Phone Igor Horn P.A.-C. Primary Care Provider [phone] Encounter Details Date Type Department Care Team Description 10/25/2021 Orders Only [facility] Express Care Nimisha Deutsch at [facility] MISA, C.N.P., M.S.N. [address] [place] [address] [place] [address] [place] [address] [phone] (Wo rk) Social History Tobacco Use Types Packs/Day Years [...] or relatives? How often do you attend adventist or More than 4 times per year 03/16/2022 congregational services? Do you belong to any clubs or Yes 03/16/2022 organizations such as adventist groups, unions, fraternal or athletic groups, or [...] place to sleep or slept in a usp (including now)? Education Answer Date Recorded What is the highest level of school Master's degree (e.g., M A, MS, 02/15/2021 you have completed or the highest Roland, MEd, TERRAZZO MECHANIC, MARIE) degree you have received? Sex Assigned at Date Recorded Female 06/26/2021 8:35 AM CDT documented as of this encounter Plan of Treatment Not on filedocumented as of this encounter Visit Diagnoses Not on filedocumented in this encounter Care Teams Government Instructor Relationship Specialty Start Date End Date Igor Horn P.A.-C. PCP - General 06/14/18 03/15/22 [address] [place] [phone] documented as of this encounter
--- OUTSIDE RECORDS SUMMARY | 2022-07-10 08:17 | XMS_ITS | Encounter Summary ---
:1940 Author Organization [facility] Address [address] [place] [address] Care Team Providers Name Role Phone Igor Horn P.A.-C. Primary Care Provider [phone] Reason for Visit Reason Comments Med Refill Encounter Details Date Type Department Care Team Description 02/23/2022 Refill Department of Family Medicine, Igor Ross P.A.-C. Med Refill [facility], in [address] [place] [phone] [place] [address] [place] [address] [phone] Social History Tobacco Use Types Packs/Day Years [...] or relatives? How often do you attend pentecostalism or More than 4 times per year 03/16/2022 shinto services? Do you belong to any clubs or Yes 03/16/2022 organizations such as pentecostalism groups, unions, fraternal or athletic groups, or [...] place to sleep or slept in a half-way (including now)? Education Answer Date Recorded What is the highest level of school Master's degree (e.g., M A, MS, 02/15/2021 you have completed or the highest Roland, MEd, ELEMENTARY SCHOOL PRINCIPAL, MARIE) degree you have received? Sex Assigned at Date Recorded Female 06/26/2021 8:35 AM CDT documented as of this encounter Miscellaneous Notes Telephone Encounter - Lauren Hidalgo - 02/23/2022 10:06 AM CDT Rhett Alcantara - Pt will out on Saturday, please send to [facility] documented in this encounter Plan of Treatment Not on filedocumented as of this encounter Visit Diagnoses Not on filedocumented in this encounter Care Teams Morgue Technician Relationship Specialty Start Date End Date Igor Horn P.A.-C. PCP - General 06/14/18 03/15/22 [address] [place] [phone] documented as of this encounter
--- OUTSIDE RECORDS SUMMARY | 2022-07-10 08:17 | XMS_ITS | Clinical Summary ---
:1940 Author Organization [facility] Address [address] [place] [id number] Care Team Providers Name Role Phone Elsewhere, Pcp Primary Care Provider Unavailable Source Comments Patient records contain information from all sites at [facility]. For routine questions regarding patient records, call [phone] during business hours, M-F 8:00 AM - 5:00 PM Central Time. Record requests for emergency care only can be directed to [phone] at any time.[facility] Allergies Active Allergy Reactions Severity Noted Date Comments Animal Dander Shortness of breath 04/05/2016 Cat Dander Other (see comments) 12/21/2009 No reac tion noted in [facility] Codeine Other (see comments) 11/18/2014 No reac tion noted in [facility] House Dust Mite Other (see comments) 08/23/2010 No r eaction noted in [facility] Hydrocodone GI intolerance 02/06/2018 Prochlorperazine Other (see comments) 12/21/2009 No reaction noted in [facility] Medications Medication Sig Dispensed Refills Start Date End Date Status CALCIUM CARB/VIT Take 1 tablet by 0 11/05/2011 Active D3/MINERALS mouth 2 (two) (CALCIUM-VITAMIN D ORAL) times a day. DOCOSAHEXANOIC ACID/EPA 3 (three) times 0 12/21/2009 Active (FISH OIL ORAL) a day. 2 in AM 1 capsule in PM amoxicillin (AMOXIL) 500 Take 2,000 mg by 0 09/27/20 16 Active mg capsule mouth. celecoxib (CeleBREX) 200 Take 1 Capsule 90 capsule 3 1 Active mg capsule (200 mg) by mouth once daily with a meal. triamcinolone (KENALOG) Apply to 30 g 0 06/15/2021 Active 0.1 % cream affected area 1-2 times daily as needed. Avoid face and groin. triamcinolone (KENALOG) Apply to 30 g 0 06/14/2021 Active 0.1 % cream affected area 1-2 times daily as needed. Avoid face and groin. ketoconazole (NIZORAL) 2 Apply 1 60 g 06/30/2021 Active % creamIndications: application Intertrigo topically 2 (two) times a day. Apply to red areas between folds of skin. ketoconazole (NIZORAL) 2 Apply 1 120 mL 06/30/2021 Active % shampooIndications: application Intertrigo topically 3 (three) times a week. Apply to damp skin, lather, leave on 5 minutes, and rinse predniSONE (DELTASONE) Take 1 tablet 20 tablet 0 10/02/2021 Active 10 mg tabletIndications: (10 mg total) by Asthma Intrinsic (HCC) mouth daily. fluticasone propionate Administer 1 16 g 0 10/02/2021 Active (FLONASE) 50 spray into each mcg/actuation nasal nostril daily as sprayIndications: Asthma needed for Intrinsic (HCC) rhinitis or allergies. albuterol 90 Inhale 2 Puffs 54 g 02/16/2022 A ctive mcg/actuation inhaler by mouth every 4 hours if needed for wheezing. albuterol 90 Inhale 2 Puffs 54 g 3 02/16/2022 A ctive mcg/actuation inhaler by mouth every 4 hours if needed for wheezing. hydroCHLOROthiazide Take 1 Tablet 90 tablet 3 02/19/2022 Active (HYDRODIURIL) 25 mg (25 mg) by mouth tablet once daily. lisinopriL Take 1 Tablet 90 tablet 3 02/19/2022 Acti ve (PRINIVIL,ZESTRIL) 30 mg (30 mg) by mouth tablet once daily. levothyroxine Take 1 Tablet 90 tablet 3 02/19/2022 A ctive (SYNTHROID, LEVOTHROID) (75 mcg) by 75 mcg tablet mouth once daily. pravastatin (PRAVACHOL) Take 1 Tablet 90 tablet 3 02/19/2022 Active 40 mg tablet (40 mg) by mouth once daily. montelukast (SINGULAIR) Take 1 tablet 90 tablet 3 02/19/2022 Active 10 mg tablet (10 mg total) by mouth daily. fluticasone Inhale 1 Puff by 180 each 3 02/23/2022 Active propion-salmeteroL mouth once (Advair Diskus) 100-50 daily. mcg/actuation diskus inhaler azelastine (ASTELIN) 137 Administer 2 30 mL 12 03/20/2022 Active mcg/spray (0.1 %) nasal sprays into each spray nostril 2 (two) times a day. Use in each nostril as directed Active Problems Problem Noted Date Obesity Body Mass Index 30-39.9 Adult 09/28/2019 Bundle Branch Block Left 09/28/2019 Rhinitis Allergic 09/12/2012 Asthma Intrinsic 12/21/2009 Overview: Asthma, Instrinsic, unspecified Hypertension Essential Primary 12/21/2009 Overview: Hypertension Essential, Benign Hyperlipidemia 06/10/2003 Hypothyroidism Primary 06/10/2003 Resolved Problems Problem Noted Date Resolved Date Malignant Neoplasm Of Forearm Squamous Cell Carcinoma Right 02/05/2017 02/24/2020 Pain Knee Right 08/01/2012 09/28/2019 Asthma NOS 02/09/2010 08/25/2018 Adjustment disorder with mixed anxiety and depressed mood 08/25/2018 Encounters Date Type Specialty Care Team Description 05/29/2022 Office Visit Dermatology Mervat Guy A, Keratosi s Seborrheic (Primary Dx); RESOURCE ANALYST, C.N.P., D.N.P. Screeni ng Examination Skin Cancer; Dermatoheliosis ; Personal Histor y Of Other Malignant Neoplasm Of Skin from Last 3 Months Immunizations Name Administration Dates Next Due DTaP (Infanrix, Tripedia) 07/25/2007 H1N1 All Forms 09/22/2009 HZV (ZOSTAVAX) 07/26/2009 HepA Adult 02/12/2019, 03/19/2011 HepB Adult 02/12/2019 HepB, Unspecified 05/23/2011, 05/23/2011, 03/19/2011, 03/19/2011 IPV 03/19/2011 Influenza Split 07/07/2014, 07/31/2012, 08/23/2010, 08/28/1996 Influenza, Injectable, Quadrivalent 07/17/2016, 08/02/2015 Influenza, Quadrivalent, Adjuvanted, 06/29/2020 Preservative Free Influenza, Seasonal, Injectable 07/19/2011, 09/12/2004, 04/2004, 10/21/2000, 10/21/2000, 08/28/1996 Influenza, Unspecified 08/03/2015, 07/02/2014, 07/21/2012, 08/26/2011 MMR 03/19/2011 PCV13 06/10/2015 PPSV23 09/15/2008 RZV (SHINGRIX) 08/05/2020, 04/26/2020 Td Preservative Free (TENIVAC, 02/12/2019 DECAVAC) Td, (Adult) Unspecified 12/31/1997 Tdap 07/25/2007, 07/25/2007 influenza high dose (65 years or 07/21/2019, 07/28/2018, 03/2017 older) (PF) influenza vaccine quad 07/01/2014 (FLUZONE/FLUARIX) (6 months and older)(PF) Family History Medical History Relation Name Comments Asthma Brother Hypertension Brother Lung cancer Brother Asthma Father Hypertension Father Lung cancer Father Colon cancer Maternal Grandfather Heart attack Mother Relation Name Status Comments Brother Father Maternal Grandfather Mother Social History Tobacco Use Types Packs/Day Years Used Date Smoking Tobacco: Never Smokeless Tobacco: Never Tobacco Cessation: Counseling Given: No Alcohol Use Standard Drinks/Week Comments Yes 1 [...] or relatives? How often do you attend temple or More than 4 times per year 03/16/2022 anabaptism services? Do you belong to any clubs or Yes 03/16/2022 organizations such as temple groups, unions, fraternal or athletic groups, or [...] place to sleep or slept in a assisted (including now)? Education Answer Date Recorded What is the highest level of school Master's degree (e.g., M Yady, MS, 02/15/2021 you have completed or the highest Roland, MEd, CHORUS DANCER, MARIE) degree you have received? Sex Assigned at Date Recorded Female 06/26/2021 8:35 AM CDT Last Filed Vital Signs Vital Sign Reading Time Taken Comments Blood Pressure 130/62 02/15/2021 9:32 AM CDT Pulse 80 02/15/2021 9:32 AM CDT Temperature 36.9 ??C (98.4 ??F) 03/20/2022 8:54 AM CDT Respiratory Rate 12 02/15/2021 9:32 AM CDT Oxygen Saturation 97% 09/28/2019 10:15 AM ASSET PROTECTION LEAD Inhaled Oxygen Concentration - - Weight 99.5 kg (219 lb 4 oz) 03/20/2022 8:54 AM CDT Height 159.6 cm (5' 2.84) 03/20/2022 8:54 AM CDT Body Mass Index 39.04 03/20/2022 8:54 AM CDT Plan of Treatment Health Maintenance Due Date Last Done Comments Hepatitis C Screening 1940 COVID-19 Vaccine (4 - Booster for 09/25/2021 07/31/2021, , Moderna series) 11/18/2020 Depression Screening (Annual 10/07/2021 PHQ-2) Fall Risk Screen (Annual) 10/07/2021 Creatinine Level 02/15/2022 02/15/2021, 02/18/2020, 04/30/2019, Additional history exists Office Visit for Blood Pressure 02/15/2022 02/15/2021 Check / Re-check Potassium Level 02/15/2022 02/15/2021, 02/18/2020, 04/30/2019, Additional history exists Sodium Level 02/15/2022 02/15/2021, 02/18/2020, 04/30/2019, Additional history exists Thyroid Stimulating Hormone (TSH) 02/15/2022 02/15/2021, , test for thyroid function 02/09/2019, Additional history exists Influenza Vaccine (#1) 2022 07/06/2021, 06/29/2020, 07/21/2019, Additional history exists DTaP,Tdap,and Td Vaccines (4 - Td 02/12/2029 02/12/2019, , or Tdap) 07/25/2007, Additional history exists Pneumococcal vaccine (65+ years) Completed 06/10/2015, 07/2008 Zoster Vaccines Completed 08/05/2020, 04/26/2020, 07/26/2009 Procedures Procedure Name Priority Date/Time Associated Diagnosis Comme nts OUTSIDE MG Routine 05/23/2022 2:50 PM Results f or this MAMMOGRAM CDT procedure are i n the results section. from Last 3 Months Results MM screening mammo BI-Outside Mammogram (05/23/2022 2:50 PM CDT) Specimen (Source) Anatomical Location Collection Method / Collectio n Time Received Time / Laterality Volume Narrative IIMS - 06/04/2022 7:04 AM CDT This order has been created and auto-finalized to support the import of outside images. If available, original i nterpretation can be found on the Media Tab in Chart Review, in Document V iewer, or as an image in QREADS. If a re-interpretation or overread is re quired please follow defined workflow. ?? Provider Not In System IMG BI PROCEDURES Performing Organization Address City/State/ZIP Code Phon e Number IIMS IIMS NA from Last 3 Months Insurance Payer Benefit Plan Subscriber ID Effective Phone Address Typ e / Group Dates MEDICARE MEDICARE A [id number] 2007-Pres [address] [place] [address] BLUE CROSS BC[employer] [place] [id number] 2016-Pres [phone] [address] [place] X Cost Share BLUE SHIELD BLUE COST ent [phone] [facility] [place] [id number] Care Teams Med Dir Relationship Specialty Start Date End Date Elsewhere, Pcp PCP - General Internal Medicine 03/16/22
--- OUTSIDE RECORDS SUMMARY | 2022-07-10 08:17 | XMS_ITS | Encounter Summary ---
:1940 Author Organization [facility] Address [address] [place] [address] Care Team Providers Name Role Phone Elsewhere, Pcp Primary Care Provider Unavailable Reason for Referral Outpatient (Routine) - Authorized Specialty Diagnoses / Procedures Referred By Contact Refer red To Contact Allergy and Immunology Valdemar Ma [place] M.D. [address] [place] [address] Referral ID Status Reason Start Date Expiration Date Visits V isits Requested Authorized [id number] Authorized 03/20/2022 03/20/2023 1 1 Outpatient (Routine) - Authorized Specialty Diagnoses / Procedures Referred By Contact Refer red To Contact Diagnoses Asthma Intrinsic (HCC) Valdemar Ma M.D. [facility] Procedures Spirometry [address] [place], [place] [address] Referral ID Status Reason Start Date Expiration Date Visits V isits Requested Authorized [id number] Authorized 03/20/2022 03/20/2023 1 1 Reason for Visit Outpatient (Routine) - Closed Specialty Diagnoses / Procedures Referred By Contact Refer red To Contact Allergy and Immunology Valdemar Ma [place] M.D. [address] [place] [address] Referral ID Status Reason Start Date Expiration Date Visits Requ ested Visits Authorized [id number] Closed 03/07/2021 03/07/2022 1 1 Encounter Details Date Type Department Care Team Description 03/20/2022 Office Visit Division of Allergic Valdemar Ma hma Intrinsic (HCC) Diseases in Geovani Ryder M.D. (Primary Dx) [place] [address] [place] [phone] Social History Tobacco Use Types Packs/Day Years [...] More than 4 times per year 03/16/2022 buddhist services? Do you belong to any clubs [...] place to sleep or slept in a custodial (including now)? Education Answer Date Recorded What is the highest level of school Master's degree (e.g., Giuliano Conteh, , 02/15/2021 you have completed or the highest Roland, Katie, VEHICLE DISMANTLER, MARIE) degree you have received? Sex Assigned at Date Recorded Female 06/26/2021 8:35 AM CDT documented as of this encounter Last Filed Vital Signs Vital Sign Reading Time Taken Comments Blood Pressure - - Pulse - - Temperature 36.9 ??C (98.4 ??F) 03/20/2022 8:54 AM CDT Respiratory Rate - - Oxygen Saturation - - Inhaled Oxygen Concentration - - Weight 99.5 kg (219 lb 4 oz) 03/20/2022 8:54 AM CDT Height 159.6 cm (5' 2.84) 03/20/2022 8:54 AM CDT Body Mass Index 39.04 03/20/2022 8:54 AM CDT documented in this encounter Consult Notes Valdemar Ma M.D. - 03/20/2022 10:30 AM CDT SUBJECTIVE REASON FOR CONSULT Asthma, rhinitis. HISTORY OF PRESENT ILLNESS Ms. Cedeño is a 81-year-old female who spends March through August in [place] and the remaining months in [place] who was last seen in the division approximately 1 year ago. Overall, things have been relatively stable this past year, though she has noticed more shortness ofbreath with exertion. She will note this primarily when walking uphill or with inclines. She does not have trouble when walking level. In addition, she does chair aerobics that is combined with other aerobic activity for 45 minutes and does not have breathing problems with this. With the incline walking, she feels that after a couple minutes she will have shortness of breath and it takes about 2 minutes to recover. The longest time it took her to recover was approximately 5-10minutes. She does not note any obvious wheezing with this. At times she has used an albuterol inhaler and felt that it was helpful. For her asthma, she continues on her current usual regimen of Advair 100/50 one puff daily and montelukast 10 mg a day. She does feel that she is having more allergy-type symptoms, particularly in [place] and also here where she will notice increased postnasal drainage. For this she has been using primarily Claritin andfluticasone. This past February she noticed fatigue and because of the fatigue did get a COVID test and was positive on February 18 and February 25 with subsequent one negative. Fortunately, she does not feel that she had anyother COVID symptoms during that time. For her exertional shortness of breath she is getting further evaluated locally and reports that candice had a chest x-ray, EKG, and echo that all have not shown significant abnormalities. Past medical history, medications, review of systems were reviewed. OBJECTIVE PHYSICAL EXAMINATION Vital Signs: Temperature 36.9, respiratory rate 14. General: A very pleasant female in no distress. Skin: Negative. Eyes: Negative. ENT : There is cerumen in the left ear canal, the right is clear. Both tympanic membranes show good light reflex. Nose, no polyps are seen. Lungs: Clear to auscultation in all boyer. Heart: Regular rate and rhythm without murmur. DIAGNOSTICS Further evaluation includes current flow volume loop. Overall, this is essentially within normal limits with her FEV1 baseline 1.4 L or 75% of predicted. There is 13% improvement with bronchodilator to1.59 L. The FEV1/FVC ratio is 66.1, which is 86% of predicted. This is compared to her previous PFT from 2018. At that time, FEV1 was 72% of predicted with 8% improvement in bronchodilator and going back over the last few years she typically has run in the 70% of predicted range. ASSESSMENT / PLAN #1 Asthma, stable Overall, I do not think her asthma is likely playing a major role in her current dyspnea on exertiongiven the timing that occurs with this and the quick resolution. She is being evaluated further for this locally from a cardiac standpoint. We discussed our options at present. Given that she does have a bronchodilator response, we did discuss increasing her baseline regimen and we will start with using the Advair 100/50 one puff twice a day and to give this approximately a month trial to see if this makes a difference with her symptoms. She will continue to have the albuterol on hand for use on an as-needed basis. While here, her blood pressure was elevated. She is monitoring this and she was encouraged to keep monitoring this as this also has the potential to play a role with some of the symptoms that she has been having and she will be following up with her primary provider for that. #2 Rhinitis with postnasal drip She does a lot of outdoor activities and does get exposed. We discussed using Astelin nasal spray 2 squirts each nostril up to twice a day as this may help more from the postnasal drainage standpoint. Valdemar Ma M.D. CT CT Job ID: [id number] documented in this encounter Plan of Treatment Scheduled Orders Name Type Priority Associated Diagnoses Order S chedule Spirometry PFT Routine Asthma Intrinsic (HCC) Expec michelle: 03/20/2023 (Approximate), Expires: 2022 Scheduled Referrals Name Type Priority Associated Order Schedule Diagnoses Allergy and Outpatient Referral Routine Expected : Immunology office 03/20/2023 visit (clinic) (Approximate) , Expires: 06/20/2023 documented as of this encounter Visit Diagnoses Diagnosis Asthma Intrinsic (HCC) - Primary documented in this encounter Care Teams General Scrap Worker Relationship Specialty Start Date End Date Elsewhere, Pcp PCP - General Internal Medicine 03/16/22 documented as of this encounter
--- OUTSIDE RECORDS SUMMARY | 2022-07-10 08:17 | XMS_ITS | Encounter Summary ---
:1940 Author Organization [facility] Address [address] [place] [address] Care Team Providers Name Role Phone Elsewhere, Pcp Primary Care Provider Unavailable Reason for Visit Appointment Request (Routine) - Closed Specialty Diagnoses / Procedures Referred By Contact Refer red To Contact Dermatology Diagnoses Screening Examination Skin Cancer Referral ID Status Reason Start Date Expiration Date Visits Requ ested Visits Authorized [id number] Closed 04/12/2022 04/12/2023 1 1 Encounter Details Date Type Department Care Team Description 05/29/2022 Office Visit Department of Brooks, Mervat Keratosis Seborrheic (Primary Dx); Dermatology in [place], SUPERVISOR CAR AND YARD, C.N.P., Screening Examination Skin Cancer; [place], [place] D.N.P. Dermatoheliosis; [address] [facility] 200 [facility] Personal History Of Other Malignant [place] [phone] Social History Tobacco Use Types Packs/Day Years [...] or relatives? How often do you attend scientology or More than 4 times per year 03/16/2022 rastafarian services? Do you belong to any clubs or Yes 03/16/2022 organizations such as scientology groups, unions, fraternal or athletic groups, or [...] have completed or the highest Roland, MEd, HARD ROCK MINER, MARIE) degree you have received? Sex Assigned at Date Recorded Female 06/26/2021 8:35 AM CDT documented as of this encounter Consult Notes Mervat Guy APRN, D.N.P., M.S.N., R.N. - 05/29/2022 11:20 AM CDT REFERRED BY No ref. provider found CHIEF COMPLAINT/REASON FOR VISIT History of nonmelanoma skin cancer HISTORY OF PRESENT ILLNESS Ms. Ainsley Cedeño is a pleasant 81 y.o. female who presents today for a full skin cancer screening examination. The patient has a history of multiple nonmelanoma skin cancers, as detailed below. Concerns today involve a spot on the left shoulder. She states this was raised on the skin in itched. She does believe she scratched this off by accident. It is no longer present or bothersome. Allergies Allergen Reactions Animal Dander Shortness of breath Cat Dander Other (see comments) No reaction noted in [place] Codeine Other (see comments) No reaction noted in [facility] House Dust Mite Other (see comments) No reaction noted in [place] Hydrocodone GI intolerance Prochlorperazine Other (see comments) No reaction noted in [facility] PAST DERMATOLOGIC HISTORY 1. Basal cell carcinoma, left upper back, 1996 2. Basal cell carcinoma, right mid back, 1996 3. Metatypical basal cell carcinoma, left forehead, 1996 4. Squamous cell carcinoma in situ, right forearm, 2001 5. Superficial nodular basal cell carcinoma, right lower paraspinal back, 2020, s/p ED&C FAMILY DERMATOLOGIC HISTORY Negative for skin cancer PHYSICAL EXAM General: Awake, alert, in no acute distress, and with appropriate affect. Eyes: No scleral injection or icterus. No eyelid abnormalities. Lymph: No lower extremity edema. Skin: I have examined the scalp, face, neck, chest, abdomen, back, bilateral upper extremities, and bilateral lower extremities. Torres skin type II. There is evidence of dermatoheliosis in sun-exposed areas. Throughout the body are waxy brown, stuck on appearing papules. On the trunk and extremities are red dome-shaped papules consistent with salmeron angiomas. There is erythema involving the left inframammary. IMPRESSION/REPORT/PLAN #1 Skin cancer screening examination #2 Dermatoheliosis #3 History of nonmelanoma skin cancer Sun protection and sun avoidance were reviewed with the patient. Educational materials were providedregarding skin self-examination, the warning signs and symptoms of skin cancer, and the proper use of sunscreens. I would recommend a full skin cancer screening examination with an appropriately trained clinician every year. #4 Seborrheic keratoses #5 Salmeron angiomas The benign nature of the skin lesion(s) was discussed with the patient. No treatment is required. I recommend continued observation. Should symptoms or changes develop related to this condition, I would recommend a return visit for reassessment. #6 Intertrigo, breast and abdominal folds Utilizes ketoconazole 2% cream with good result. PATIENT EDUCATION Ready to learn. No apparent learning barriers were identified. Learning preferences include listening. Explained diagnosis and treatment plan; patient/guardian of patient expressed understanding of thecontent. documented in this encounter Plan of Treatment Not on filedocumented as of this encounter Visit Diagnoses Diagnosis Keratosis Seborrheic - Primary Screening Examination Skin Cancer Dermatoheliosis Personal History Of Other Malignant Neop lasm Of Skin documented in this encounter Care Teams Assortment Planner Relationship Specialty Start Date End Date Elsewhere, Pcp PCP - General Internal Medicine 03/16/22 documented as of this encounter
--- OUTSIDE RECORDS SUMMARY | 2022-07-10 08:17 | XMS_ITS | Encounter Summary ---
:1940 Author Organization [facility] Address [address] [place] [address] Care Team Providers Name Role Phone Igor Horn P.A.-C. Primary Care Provider [phone] Encounter Details Date Type Department Care Team Description 10/23/2021 Admin Visit Department of Family Medicine, [address] [address] [facility] [phone] Social History Tobacco Use Types Packs/Day Years [...] or relatives? How often do you attend samaritan or More than 4 times per year 03/16/2022 yazidi services? Do you belong to any clubs or Yes 03/16/2022 organizations such as samaritan groups, unions, fraternal or athletic groups, or [...] have completed or the highest Roland, MEd, RF MICROWAVE ENGINEER, MARIE) degree you have received? 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 PCP - General 06/14/18 03/15/22 [address] [place] [address] documented as of this encounter
--- OUTSIDE RECORDS SUMMARY | 2022-07-10 08:17 | XMS_ITS | Encounter Summary ---
:1940 Author Organization [facility] Address [address] [place] [address] Care Team Providers Name Role Phone Elsewhere, Pcp Primary Care Provider Unavailable Encounter Details Date Type Department Care Team Description 03/16/2022 [facility] [place], Encounter For [place] [facility] [address] Examination (COVID-19) [place] [address] [address] [place], [place] [phone] (Wo rk) Social History Tobacco Use Types [...] or relatives? How often do you attend evangelical or More than 4 times per year 03/16/2022 jewish services? Do you belong to any clubs or Yes 03/16/2022 organizations such as evangelical groups, unions, fraternal or athletic groups, or [...] place to sleep or slept in a snf (including now)? Education Answer Date Recorded What is the highest level of school Master's degree (e.g., M Yady, MS, 02/15/2021 you have completed or the highest Roland, MEd, AUTOMOBILE SERVICE WRITER, MARIE) degree you have received? Sex Assigned at Date Recorded Female 06/26/2021 8:35 AM CDT documented as of this encounter Plan of Treatment Not on filedocumented as of this encounter Procedures Procedure Name Priority Date/Time Associated Diagnosis Comme nts SARS CORONAVIRUS-2 STAT 03/16/2022 9:16 AM Encounter For Re sults for this RNA, V CDT Preprocedural procedure are in Laboratory Examination the r esults (COVID-19) section. documented in this encounter Results SARS Coronavirus-2 RNA, V Asymptomatic (03/16/2022 9:16 AM CDT) [facility] Method Time Signature SARS-CoV-2 Swab, 03/16/2022 MKTO Specimen Nasopharynx 11:53 PM Source CDT SARS CoV-2 Undetected Undetected 03/16/2022 MKTO RNA, TMA 11:53 PM CDT Comment: SARS-CoV-2 RNA absent. This result does not rule out COVID-19 in the patient, as the sensitivity of the test depends o n the timing of the specimen collection and the quality of the specim en. Result should be correlated with patient's history and clinical presentat ion. ----ADDITIONAL INFORMATION---- This molecular amplification test was pe rformed using the Aptima SARS-CoV-2 assay ([employer] on the Purchexts tem under emergency use authorization (EUA) by the U.S. Food and Drug Administ ration. Fact sheets for this EUA assay can be fo und at the following links: For Healthcare Providers: https://www.fd a.gov/media/003002/download For Patients: https://www.fda.gov/media/ 474998/download Specimen Anatomical Collection Method Collection Time Receive d Time (Source) Location / / Volume Laterality Varies 03/16/2022 9:16 AM 2:57 (Nasopharynx) CDT PM CDT Valdemar Ma M.D. LAB MICROBIOLOGY - GENERAL O RDERABLES Performing Organization Address City/State/[facility] Phon e Number [facility]- [address] [place] [address] [place] [address] System in [address] documented in this encounter Visit Diagnoses Diagnosis Encounter For Preprocedural Laboratory E xamination (COVID-19) documented in this encounter Additional Health Concerns Infection Onset Date Last Indicated Resolved Time COVID19 Pending 03/16/2022 03/16/2022 03/16/2022 11:54 PM CDT documented as of this encounter Care Teams Technology And Engineering Teacher Relationship Specialty Start Date End Date Elsewhere, Pcp PCP - General Internal Medicine 03/16/22 documented as of this encounter
--- OUTSIDE RECORDS SUMMARY | 2022-07-10 08:18 | XMS_ITS | Encounter Summary ---
:1940 Author Organization [facility] Address [address] [place] [address] Care Team Providers Name Role Phone Igor Horn P.A.-C. Primary Care Provider [phone] Reason for Visit Reason Comments Med Refill Encounter Details Date Type Department Care Team Description 05/22/2021 Refill Department of Family Medicine, Igor Ross P.A.-C. Med Refill [facility], in [address] [place] [phone] [place] [address] [place] [address] [phone] Social History Tobacco Use Types Packs/Day Years [...] or relatives? How often do you attend religion or More than 4 times per year 03/16/2022 episcopal services? Do you belong to any clubs or Yes 03/16/2022 organizations such as religion groups, unions, fraternal or athletic groups, or [...] place to sleep or slept in a correction (including now)? Education Answer Date Recorded What is the highest level of school Master's degree (e.g., M A, MS, 02/15/2021 you have completed or the highest Roland, MEd, OPHTHALMIC MEDICAL TECHNICIAN, MARIE) degree you have received? Sex Assigned at Date Recorded Female 06/26/2021 8:35 AM CDT documented as of this encounter Miscellaneous Notes Telephone Encounter - Kta Valenzuela, L.P.N. - 05/25/2021 4:19 PM CDT Patient responded to portal message her arthritis started bothering her when she came back to [place] and restarted the Celebrex 200 mg daily Telephone Encounter - Latonia Milligan - 05/24/2021 7:48 AM CDT Nurse review: Unable to forward request to provider; Discrepancy: Verification Required. Medication Discontinued. Primary Provider: Igor Horn P.A.-C. Requested Prescriptions Pending Prescriptions Disp Refills ??? celecoxib (CeleBREX) 200 mg capsule [Pharmacy Med Name: celecoxib 200 mg capsule (CELEBREX)] 90 capsule 3 Sig: Take 1 Capsule (200 mg) by mouth once daily with a meal. Pharmacy: [facility] documented in this encounter Plan of Treatment Not on filedocumented as of this encounter Visit Diagnoses Not on filedocumented in this encounter Care Teams Academic Support Coordinator Relationship Specialty Start Date End Date Igor Horn P.A.-C. PCP - General 06/14/18 03/15/22 [address] [place] [address] documented as of this encounter
--- OUTSIDE RECORDS SUMMARY | 2022-07-10 08:18 | XMS_ITS | Encounter Summary ---
:1940 Author Organization [facility] Address [address] [place] [address] Care Team Providers Name Role Phone Igor Horn P.A.-C. Primary Care Provider [phone] Reason for Visit Reason Comments COVID Inquiry Encounter Details Date Type Department Care Team Description 10/23/2021 Clinical Communication Department of MELANIA Byrd [facility], in [address] [address] [place], [place] [phone] (Work) [phone] Social History Tobacco Use Types Packs/Day Years [...] or relatives? How often do you attend latter-day or More than 4 times per year 03/16/2022 methodist services? Do you belong to any clubs or Yes 03/16/2022 organizations such as latter-day groups, unions, fraternal or athletic groups, or [...] place to sleep or slept in a skilled nursing (including now)? Education Answer Date Recorded What is the highest level of school Master's degree (e.g., M A, MS, 02/15/2021 you have completed or the highest Roland, MEd, KNOWLEDGE ARCHITECT, MARIE) degree you have received? Sex Assigned at Date Recorded Female 06/26/2021 8:35 AM CDT documented as of this encounter Miscellaneous Notes Telephone Encounter - Diana Lawson - 10/23/2021 8:32 AM CST What is the purpose of the call?: Symptomatic (Calling PCP Office) Calling [place] PCP Office What region is the patient calling from? : [place] Have you tested positive for COVID-19 in the last 20 days? : No In the past 14 days are any of the following symptoms new to you and not related to an existing health condition?: New shortness of breath, New cough, New sore throat, Fever*, New chills, New myalgias (muscle aches), New headache, New respiratory distress (fast breathing) (runny nose) Because of symptoms, transfer patient to: : [place] COVID Nurse Line (End Screening) Symptom Onset Date of symptom onset: 10/21/21 Plan: Endpoint recommendation: Transferred to Nursing/COVID Line/Care Team *Reminder if sending patient for testing in [facility] or [facility], route encounter to the correct testing pool. POUR SUPERVISOR documented in this encounter Plan of Treatment Not on filedocumented as of this encounter Visit Diagnoses Not on filedocumented in this encounter Care Teams Practice Professional Relationship Specialty Start Date End Date Igor Horn P.A.-C. PCP - General 06/14/18 03/15/22 [address] [place] [address] documented as of this encounter
--- OUTSIDE RECORDS SUMMARY | 2022-07-10 08:18 | XMS_ITS | Encounter Summary ---
:1940 Author Organization [facility] Address [address] [place] [address] Care Team Providers Name Role Phone Igor Horn P.A.-C. Primary Care Provider [phone] Reason for Referral Outpatient (Routine) - Closed Specialty Diagnoses / Procedures Referred By Contact Refer red To Contact Family Medicine Igor Horn P. A.-C. [facility] [address] [address] Referral ID Status Reason Start Date Expiration Date Visits Requ ested Visits Authorized [id number] Closed 02/15/2021 02/15/2022 1 1 Reason for Visit Reason Comments Med Management Discuss Pravastatin 1. Labs completed, No other concerns. Outpatient (Routine) - Closed Specialty Diagnoses / Procedures Referred By Contact Refer marifer To Contact Family Igor Winter P. A.-C. [facility] [address] [phone] Referral ID Status Reason Start Date Expiration Date Visits Requ ested Visits Authorized [id number] Closed 02/24/2020 02/23/2021 1 1 Encounter Details Date Type Department Care Team Description 02/15/2021 Comprehensive Visit Department of Coreen Horn (BREANNE) (Primary Dx); Family Igor Little Screening C ancer Colon; [facility], P.[facility].-C. Hypertension Essential Primary; in [place], [address] Hyperlipidemia; [place], [place] Hypothyroidism Primary; [address] [address] Rhinitis Allergic; [place], [place] [phone] General Medica l Examination Adult; [address] (Work) Screening Mammogram Breast Cancer [phone] Social History Tobacco Use Types Packs/Day Years [...] or relatives? How often do you attend sabianist or More than 4 times per year 03/16/2022 holiness services? Do you belong to any clubs or Yes 03/16/2022 organizations such as sabianist groups, unions, fraternal or athletic groups, or [...] place to sleep or slept in a halfway (including now)? Education Answer Date Recorded What is the highest level of school Master's degree (e.g., M Yady, MS, 02/15/2021 you have completed or the highest Roalnd, MEd, LONG WALL MINING MACHINE TENDER, MARIE) degree you have received? Sex Assigned at Date Recorded Female 06/26/2021 8:35 AM CDT documented as of this encounter Last Filed Vital Signs Vital Sign Reading Time Taken Comments Blood Pressure 130/62 02/15/2021 9:32 AM CDT Pulse 80 02/15/2021 9:32 AM CDT Temperature 36.8 ??C (98.2 ??F) 02/15/2021 9:32 AM CDT Respiratory Rate 12 02/15/2021 9:32 AM CDT Oxygen Saturation - - Inhaled Oxygen Concentration - - Weight 96.1 kg (211 lb 13.8 oz) 02/15/2021 9:32 AM CDT Height 165.5 cm (5' 5.16) 02/15/2021 9:32 AM CDT Body Mass Index 35.09 02/15/2021 9:32 AM CDT documented in this encounter H&P Notes Igor Horn P.A.-C. - 02/15/2021 9:30 AM CDT CHIEF COMPLAINT / REASON FOR VISIT Ainsley Cedeño is a 80 y.o. female who presents for evaluation of Med Management (Discuss Pravastatin 11.30.2020. Labs completed, No other concerns.). HISTORY OF PRESENT ILLNESS Ainsley presents today for her yearly medication review. She has asthma that has been bothering her but for the most part has been well controlled. It bothers her more when she was in [place]. Fortunately when she was in [place] her arthritis was much improved. She says this may be getting a little worse now that she is back in [place]. She has been trying some tumeric. She had her blood drawn prior to this visit. Unfortunately we do not yet have the results. She does need refills of her medications. We discussed preventative medicine and what she is due for as well. PAST MEDICAL HISTORY: Patient Active Problem List Diagnosis ??? Asthma Intrinsic (HCC) ??? Hypertension Essential Primary ??? Hyperlipidemia ??? Hypothyroidism Primary ??? Rhinitis Allergic ??? Obesity Body Mass Index 30-39.9 Adult ??? Bundle Branch Block Left PAST SURGICAL HISTORY: Past Surgical History: Procedure Laterality Date ??? DILATATION AND CURETTAGE ??? EPICONDYLECTOMY ELBOW Right 1986 right lateral ??? EXCISION OF PERIPHERAL NERVE N/A 03/21/1982 Excision of neuroma; digital nerve, 1 or both, same digit.. ??? EXTRACAPSULAR CATARACT EXTRACTION AND INSERTION OF INTRAOCULAR LENS Bilateral 2004 XCAPSL CTRC RMVL INSJ LENS PROSTH 1 STG ??? HYSTERECTOMY N/A 1990 Uterinectomy ??? JOINT REPLACEMENT Left 2015 Knee ??? OTHER CONVERTED SHX (SEE COMMENT) N/A 10/09/1991 Dilatation and curettage. >Vaginal hysterectomy. ??? OTHER CONVERTED SHX (SEE COMMENT) N/A 01/15/1994 Intra-oral exploration. >Excision of prominent orbicularis artery. ??? OTHER CONVERTED SHX (SEE COMMENT) N/A 12/07/1996 >Excision of biopsy site (4 mm), right suprabrow area. ??? OTHER CONVERTED SHX (SEE COMMENT) N/A 12/01/2007 >Injection. ??? OTHER CONVERTED SHX (SEE COMMENT) N/A 07/05/1993 >Laser photothermolysis. ??? OTHER CONVERTED SHX (SEE COMMENT) N/A 05/23/1993 >Removal. SOCIAL HISTORY: Social History Tobacco Use ??? Smoking status: Never Smoker ??? Smokeless tobacco: Never Used Substance Use Topics ??? Alcohol use: Yes Alcohol/week: 1.0 standard drinks Types: 1 Shots of liquor per week Comment: very rarely ??? Drug use: No FAMILY HISTORY: Family History Problem Relation Age of Onset ??? Hypertension Father ??? Asthma Father ??? Lung cancer Father ??? Lung cancer Brother ??? Hypertension Brother ??? Asthma Brother ??? Heart attack Mother ??? Colon cancer Maternal Grandfather REVIEW OF SYSTEMS: General: Denies recent fever, weight loss, or extreme fatigue. Eyes: Denies double vision or sudden loss of vision. ENT: Denies sore throat, runny nose, ear pain, or hearing loss. Heart:: Denies chest pain or irregular heartbeats. Respiratory: Denies cough, wheezing, shortness of breath. Digestion: Denies nausea, vomiting, diarrhea or constipation. Genito/Urinary: Denies frequent or painful urination. Skin: Denies rash, sores, excessive bruising, or change of a mole. Nerves/Brain: Denies headache, persistent weakness or numbness. Endocrine: Denies excessive thirst or urination, cold or heat intolerance. Blood: Denies unusual bruising or bleeding or enlarged lymph nodes. MEDICATIONS: Current Outpatient Medications Medication Sig Dispense Refill ??? Advair Diskus 100-50 mcg/act diskus inhaler Inhale 1 Puff by mouth once daily. 60 each 11 ??? albuterol (Ventolin HFA) 90 mcg/actuation inhaler Inhale 2 puffs every 4 (four) hours as needed for wheezing. 18 g 11 ??? amoxicillin (AMOXIL) 500 mg capsule Take 2,000 mg by mouth. ??? CALCIUM CARB/VIT D3/MINERALS (CALCIUM-VITAMIN D ORAL) Take 1 tablet by mouth 2 (two) times a day. ??? DOCOSAHEXANOIC ACID/EPA (FISH OIL ORAL) 3 (three) times a day. 2 in AM 1 capsule in PM ??? fluticasone propionate (FLONASE) 50 mcg/actuation nasal spray Daily as needed ??? hydroCHLOROthiazide (HYDRODIURIL) 25 mg tablet Take 1 tablet (25 mg total) by mouth daily. 90 tablet 3 ??? levothyroxine (SYNTHROID, LEVOTHROID) 75 mcg tablet Take 1 tablet (75 mcg total) by mouth daily.90 tablet 3 ??? lisinopriL (PRINIVIL,ZESTRIL) 30 mg tablet Take 1 tablet (30 mg total) by mouth daily. 90 tablet3 ??? montelukast (SINGULAIR) 10 mg tablet Take 1 tablet (10 mg total) by mouth daily. 90 tablet 3 ??? pravastatin (PRAVACHOL) 40 mg tablet Take 1 tablet (40 mg total) by mouth daily. 90 tablet 3 ??? predniSONE (DELTASONE) 10 mg tablet Take 1 tablet (10 mg total) by mouth daily. (Patient taking differently: Take 10 mg by mouth 2 (two) times a day as needed. ) 20 tablet 2 No current facility-administered medications for this visit. ALLERGIES: Allergies Allergen Reactions ??? Animal Dander Shortness of breath ??? Cat Dander Other (see comments) No reaction noted in Cerner ??? Codeine Other (see comments) No reaction noted in Cerner ??? House Dust Mite Other (see comments) No reaction noted in Cerner ??? Hydrocodone GI intolerance ??? Prochlorperazine Other (see comments) No reaction noted in Cerner OBJECTIVE Vitals: 02/15/21 0932 BP: 130/62 BP Location: Left arm Patient Position: Sitting Cuff Size: Large Pulse: 80 Resp: 12 Temp: 36.8 ??C TempSrc: Temporal Weight: 96.1 kg Height: 165.5 cm Body mass index is 35.09 kg/m??. PHYSICAL EXAMINATION General: Patient appears in no acute distress. ENT: TMs no erythema. Throat no erythema. Neck: No lymphadenopathy. No thyroid masses. Heart: Regular rate and rhythm. No murmurs. Lungs: Clear to auscultation. Abdomen: Soft and nontender to palpation. Breast exam deferred by patient IMPRESSION / REPORT / PLAN #1 Asthma Intrinsic (HCC) Asthma seems to be doing okay. Will have her continue on her current medical regimen she says this seems to be doing better when she is in [place] #2 Screening Cancer Colon We did discuss colon cancer screening. She is of average risk. She has had normal colonoscopy in [facility]. We did discuss continuing to do screening Will put through colo guard for her today. #3 Hypertension Essential Primary Blood pressure is well controlled continue her current medical regimen #4 Hyperlipidemia Continue on her statin. We recently cut this back from 60-40. Will wait to see what her lipids show today #5 Hypothyroidism Primary TSH was drawn do not have the results will keep her on the same dose of Synthroid for now #6 Rhinitis Allergic Continue on her current medical regimen #7 General Medical Examination Adult I stressed the importance of her continuing her active lifestyle #8 Screening Mammogram Breast Cancer She will continue with regular mammography. Total time spent 30 minutes Igor Horn P.A.-C. documented in this encounter Plan of Treatment Scheduled Orders Name Type Priority Associated Diagnoses Order S chedule Comprehensive Metabolic Lab Routine Hypertension Esse ntial Expected: 02/15/2022 Panel Primary (Approximate), Hyperlipidemia Expires: 02/15/2023 Hypothyroidism Primary Lipid Panel Lab Routine Hypertension Essential Expec michelle: 02/15/2022 Primary (Approximate), Hyperlipidemia Expires: 02/15/2023 Hypothyroidism Primary S-TSH (Thyroid-Stimulating Lab Routine Hypertension E ssential Expected: 02/15/2022 Hormone - Sensitive) Primary (Approximate), Hyperlipidemia Expires: 02/15/2023 Hypothyroidism Primary Scheduled Referrals Name Type Priority Associated Diagnoses [facility] Medicine Outpatient Referral Routine Expec michelle: office visit 02/15/2022 (clinic) (Approximate), Expires: 02/16/2024 documented as of this encounter Procedures Procedure Name Priority Date/Time Associated Diagnosis Comme nts COLOGUARD Routine 02/27/2021 9:55 PM Screening Cancer Resul ts for this CDT Colon procedure are i n the results section . documented in this encounter Results Cologuard-Sent Out Lab (02/27/2021 9:55 PM CDT) [facility] Signature Result Negative Not Applicable 03/03/2021 EXLI 5:13 PM CDT Comment: A negative result indicates a low likeli reddy that a colorectal cancer (CRC) or an advanced a denoma (adenomatous polyps with more advanced pre-malignant features) is present. The chance that a person with a negative Cologuard test has a colorectal cancer is less juan j n 1 in 1500 (negative predictive value >99.9%) or gant s an advanced adenoma is less than 5.3% (negative pred ictive value 94.7%). These data are based on a [facility] cross-sectional screening study of 10,00 0 individuals at average risk for colorectal cancer who w ere screened with both Cologuard and colonoscopy. (June Dumas et al, N Engl J Med 2014;370(14):8307-3787) The normal value (reference range) for this assay is negative. COLOG UARD RE-SCREENING RECOMMENDATION: Periodic routine colorec riya cancer screening is an important part of preven tive healthcare for asymptomatic persons at average risk for colorectal cancer. Following a negative Cologuard result, enoch ramirez [employer] Cancer Society and U.S. Multi-Society Task Forc e screening guidelines recommend a Cologuard re-scre ening interval of 3 years. References: [place] Cancer Socie ty (ACS). Colorectal cancer prevention and early d etection. [place], [place]: [place] [employer] Society; [updated Jan 28]. https://www.cancer.org/cancer/colon-rect al-cancer/detection- diagnosis-staging/acs-recommendations.ht ml. Accessed June 06, 2018; Yung DK, Med CR, Ernesto DurantK , Colorectal Cancer Screening: Recommendations for Physician s and Patients from the U.S. Multi-Society Task Force on Col orectal Cancer Screening, Am J Gastroenterology 2017; 1 12:3793-5560. TEST TYPE: Composite algorithmic analysi s of stool DNA-biomarkers with hemoglobin immunoass ay. ??Quantitative values of individual biomarkers are not reportable and are not associated with individual biomarker result reference ranges. PRECAUTIONS AND LIMITATIONS: Cologuard i s intended for colorectal cancer screening of adults of either sex, 45 years or older, who are at average-risk for colorectal cancer (CRC). Cologuard has been approve d for use by the U.S. FDA. Cologuard may produce a false negative or false positive result. A negative Cologuard te st result does not guarantee the absence of CRC or advanced adenoma (pre-cancer). Patients with a negative C ologuard test result should be advised to continue par ticipating in a colorectal cancer screening program. The screening interval for Cologuard is currently recommended a t an interval of every 3 years by the [place] Cancer Soc iety and U.S. Multi-Society Task Force. A false positi ve result occurs when Cologuard produces a positive resul t, even though a colonoscopy may not find colorectal canc er or precancerous polyps. The performance of Cologuard has been established in a cross sectional study (i.e., single point in time) of average-risk adults aged 50-84. Cologuar d performance in patients ages 45 to 49 years was estimat ed by sub-group analysis of near-age groups. Cologuard p erformance data in a 10,000 patient pivotal study using col onoscopy as the reference method can be accessed at the following location: www.[employer]/results. Additional de scription of the Cologuard test process, warnings and pre cautions can be found at www.cologuardtest.com. Rx only. Specimen Anatomical Collection Method Collection Time Receive d Time (Source) Location / / Volume Laterality Stool (Stool) 02/27/2021 9:55 PM 03/01/20 21 3:38 CDT PM CDT Igor Horn P.A.-C. LAB BODY FLUIDS AND STOOLS O RDERABLES Performing Organization Address City/State/ZIP Code Phon e Number [address] [place], [place] [address] [place] [address] Laboratories [address] [facility], [address] documented in this encounter Visit Diagnoses Diagnosis Asthma Intrinsic (HCC) - Primary Screening Cancer Colon Hypertension Essential Primary Hyperlipidemia Hypothyroidism Primary Rhinitis Allergic General Medical Examination Adult Screening Mammogram Breast Cancer documented in this encounter Care Teams City Councilman Relationship Specialty Start Date End Date Igor Horn P.A.-C. PCP - General 06/14/18 03/15/22 [address] [place] [address] documented as of this encounter
--- OUTSIDE RECORDS SUMMARY | 2022-07-10 08:18 | XMS_ITS | Encounter Summary ---
:1940 Author Organization [facility] Address [address] [place] [address] Care Team Providers Name Role Phone Igor Horn P.A.-C. Primary Care Provider [phone] Reason for Visit Reason Comments MELANIA Nurse Line Encounter Details Date Type Department Care Team Description 07/24/2020 Clinical Communication Division of MELANIA Crabtree Nurse [facility] Internal Cecilia Cordova Medicine, Kishore Gr, R.N. [facility], in [address] [place] [phone] [place] [address] [place], [place] (Work) [phone] Social History Tobacco Use Types Packs/Day Years [...] or relatives? How often do you attend advent or More than 4 times per year 03/16/2022 temple services? Do you belong to any clubs or Yes 03/16/2022 organizations such as advent groups, unions, fraternal or athletic groups, or school groups? How often do you attend meetings of the More than 4 times [facility] year 03/16/2022 clubs or organizations you belong [...] place to sleep or slept in a [place] health care facility (including now)? Education Answer Date Recorded What is the highest level of Professional school degree (e.g ., , 02/19/2020 school you have completed or the DDS, DVM, DEBORAH) highest degree you have received? Sex Assigned at Date Recorded Female 06/26/2021 8:35 AM CDT documented as of this encounter Miscellaneous Notes Telephone Encounter - Cecilia Crabtree R.N. - 07/24/2020 12:49 PM CDT COVID-19 Nurse Line Screening ASSESSMENT COVID 19 Screening Have you had close contact with a person who has a LABORATORY CONFIRMED case of COVID-19 in the past14 days?: Yes - Continue screening. In the last 48 hours have you had any of the following symptoms?: No - Complete screening. Symptom based testing criteria not met. Provided instructions to self-isolate for 14 days and contact their provider with any new symptoms. May have Asymptomatic testing for public health pre-determined criteria. PLAN Endpoint recommendation: Screening negative, testing not indicated at this time Care Points provided: STANDARD PRECAUTIONS FOR ALL PATIENTS: Wash hands often with soap and water for at least 20 seconds, especially after blowing your nose, coughing, sneezing, or having been in a public place. If soap and water aren't available, use a hand engineer chief that contains at least 60% alcohol. Avoid close contact with anyone who may be exhibiting respiratory symptoms such as coughing and sneezing. Avoid touching your eyes, nose and mouth. Clean and disinfect frequently touched surfaces daily. Cover your mouth and nose with a cloth face cover when around others or in public. The cloth face cover is not a substitute for social distancing. Continue to keep about 6 feet between yourself andothers. Monitor for symptoms. Do not take your temperature within 30 minutes of exercise. If your test or screen is negative and new symptoms develop please contact your provider if it has been greaterthan 72 hours since you were tested. Educational Resource: https://www.cdc.gov/coronavirus/2019-ncov/ otjvuou-nzydegd-fmxx/index.html Education: Patient/caregiver able to teach back Patient agreeable to plan of care: Yes The following references were used: [facility] novel coronavirus (COVID- 19) resources CDC web site https://www.cdc.gov/coronavirus/2019-ncov/summary.html Nursing judgement documented in this encounter Plan of Treatment Not on filedocumented as of this encounter Visit Diagnoses Not on filedocumented in this encounter Care Teams Crew Caller Relationship Specialty Start Date End Date Igor Horn P.A.-C. PCP - General 06/14/18 03/15/[address] [place] [phone] documented as of this encounter
--- OUTSIDE RECORDS SUMMARY | 2022-07-10 08:18 | XMS_ITS | Encounter Summary ---
:1940 Author Organization [facility] Address [address] [place] [address] Care Team Providers Name Role Phone Igor Horn P.A.-C. Primary Care Provider [phone] Encounter Details Date Type Department Care Team Description 05/16/2020 Orders Only Department of Family Tammy Garvin APR N, Medicine, [facility], C.N. P. in [facility] [address] [place] [phone] [place] [address] [phone] Social History Tobacco Use Types Packs/Day Years [...] or relatives? How often do you attend hoahaoism or More than 4 times per year 03/16/2022 catholic services? Do you belong to any clubs or Yes 03/16/2022 organizations such as hoahaoism groups, unions, fraternal or athletic groups, or [...] on filedocumented in this encounter Care Teams Brass Pickler Relationship Specialty Start Date End Date Igor Horn P.A.-C. PCP - General 06/14/18 03/15/22 [address] [place] [phone] documented as of this encounter
--- OUTSIDE RECORDS SUMMARY | 2022-07-10 08:18 | XMS_ITS | Encounter Summary ---
:1940 Author Organization [facility] Address [address] [place] [address] Care Team Providers Name Role Phone Igor Horn P.A.-C. Primary Care Provider [phone] Encounter Details Date Type Department Care Team Description 01/10/2021 Clinical Communication Division of Allergic [facility] in Geovani Ryder M.D. [address] [place] [phone] Social History Tobacco Use Types Packs/Day Years [...] or relatives? How often do you attend latter day or More than 4 times per year 03/16/2022 congregation services? Do you belong to any clubs or Yes 03/16/2022 organizations such as latter day groups, unions, fraternal or athletic groups, or [...] on filedocumented in this encounter Care Teams Mechanical Maintenance Technician Relationship Specialty Start Date End Date Igor Horn P.A.-C. PCP - General 06/14/18 03/15/22 [address] [place] [address] documented as of this encounter
--- OUTSIDE RECORDS SUMMARY | 2022-07-10 08:18 | XMS_ITS | Encounter Summary ---
:1940 Author Organization [facility] Address [address] [place] [address] Care Team Providers Name Role Phone Igor Horn P.A.-C. Primary Care Provider [phone] Reason for Visit Reason Comments COVID Nurse Line Triage Encounter Details Date Type Department Care Team Description 10/23/2021 Nurse Triage Department of [facility] Niharika Live C OVID Nurse Line; Medicine, [facility], in [place], [place] Contact At Once![facility]) [address] [place] [address] Social History Tobacco Use Types Packs/Day Years [...] More than 4 times per year 03/16/2022 latter day services? Do you belong to any clubs [...] have completed or the highest Roland, MEd, VETERINARY PARASITOLOGIST, MARIE) degree you have received? Sex Assigned at Date Recorded Female 06/26/2021 8:35 AM CDT documented as of this encounter Miscellaneous Notes Telephone Encounter - Niharika Evans, RAntwanN. - 10/23/2021 8:46 AM AREA SECRETARY Chief Complaint / Reason for Call Patient is a 80 y.o. female calling regarding COVID Nurse Line and Triage. Assessment Concern: Fever 101, cough Present for: Saturday Home cares tried: Mucinex Calling to request: Covid19 testing The recommended disposition is The following treatment or testing is indicated by a health care provider in the next 24 hours. COVID-19 Nurse Line Screening ASSESSMENT Initial Screening Pathway Select appropriate pathway: : Adult In the last 48 hours, have you had a fever* OR symptoms that are unrelated to a preexisting illness?: Fever, New cough, New shortness of breath, New sore throat, New chills Date of symptom onset: 10/21/21 COVID Symptomatic Screening Do you have any of the following urgent symptoms?: No urgent symptoms noted (Continue Screening) Have you received a COVID-19 vaccine in the last 72 hours? : No vaccine received (Continue Screening) Have you had close contact* with a person who has a LABORATORY CONFIRMED case of COVID-19 in the past 14 days?: No (Continue Screening) Have you tested positive for COVID-19 in the last 45 days?: No. COVID-19 testing is indicated (Continue Screening for Additional Testing) Additional Screening for Influenza, RSV and Strep Select appropriate region: : [place] Do you have any of the following respiratory syntonical virus (RSV) complications? : No complications noted (Continue Screening) Do you have any of the following high risk influenza criteria?: Age 65 years or older, Chronic pulmonary disease including asthma or COPD, 1 or more high risk flu complications are noted. (Continue Screening) Based on your last response, you are considered high risk for Influenza complications and may benefit taking a medication called Tamiflu?? (Oseltamivir). Are you interested in pursuing a prescription for Tamiflu?? (Oseltamivir)?: Yes and patient is an established [facility] patient*. When screening complete, run the Influenza Management protocol. (Continue Screening) Are all of the following Strep criteria met? : Age is between 18-75 years, No, all criteria are not met. Influenza testing is indicated. (End Screening) Symptom Onset Date of symptom onset: 10/21/21 Testing Recommendation Endpoint Is testing recommended? : Recommended to test PLAN Endpoint recommendation: Symptomatic testing indicated, advised to be swabbed for COVID-19 and Influenza, sent to [facility] located at [address] [place] [address] ([facility]). An appointment is required for testing, please call [phone] Saturday-Saturday 7am to 6pm and Saturday & Saturday 9am to 4pm to schedule an appointment. Testing hours are 8am - 4:30pm daily. You can also schedule via your Patient Online Services account., Please avoid using public transportation per CDC recommendation. If you do not have personal transportation please self-quarantine until a personal transportation option is available. Standard Care Points -Wash hands frequently with soap and water, use hand bisque cleaner if soap and water aren't available. -Wear a mask over your nose and mouth to help protect yourself and others if not fully vaccinated and having no symptoms -Stay 6 feet between yourself and others who don't live with you. -Avoid crowds and poorly ventilated indoor spaces. -Seek emergent care if any of the following occur Trouble breathing Bluish lips or face Persistent pain or pressure in the chest New confusion or inability to rouse. -Notify your regular care provider of any new or worsening symptoms. Symptomatic Carepoints: Stay home and separate yourself from others and stay in a specific sick room if able. Avoid sharing personal or household items. Rest. Hydrate. Take Acetaminophen/Ibuprofen asneeded to control fever and muscles aches. Use over the counter medications as needed for other symptoms. Gargle with 8 ounces of warm salt water several times a day for throat discomfort (1/4 tsp regular salt to 8 ounces or 1 cup warm water). Do not swallow the salt water. Throat lozenges will help keep the throat lubricated. Hard candy, lollipops, and throat lozenges are equally effective. Use a humidifier. If you have received a negative COVID-19 test result and continue to have new or worsening symptoms after 72 hours please call the COVID Nurse Line to assess if you need repeat testing or reach out to your Primary Care Provider for guidance. If you received a prescription for Oseltamivir (Tamiflu) and your influenza test result comes back negative, stop taking Tamiflu. Education: Patient/caregiver able to teach back Patient agreeable to plan of care: Yes The following references were used: [facility] novel coronavirus (COVID- 19) resources CDC web site https://www.cdc.gov/coronavirus/2019-ncov/your-health/index.html Nursing judgement SECRETARY documented in this encounter Plan of Treatment Not on filedocumented as of this encounter Visit Diagnoses Not on filedocumented in this encounter Care Teams Fish Agent Relationship Specialty Start Date End Date Igor Horn P.A.-C. PCP - General 06/14/18 03/15/22 [address] [place] [address] documented as of this encounter
--- OUTSIDE RECORDS SUMMARY | 2022-07-10 08:18 | XMS_ITS | Encounter Summary ---
:1940 Author Organization [facility] Address [address] [place] [address] Care Team Providers Name Role Phone Igor Horn P.A.-C. Primary Care Provider [phone] Encounter Details Date Type Department Care Team Description 05/12/2020 Orders Only Department of Family Igor Horn Dy suria (Primary Dx) Medicine, [place] [employer], in [address] [address] [place], [place] [phone] [address] (Work) [phone] Social History Tobacco Use Types Packs/Day Years [...] or relatives? How often do you attend christianity or More than 4 times per year 03/16/2022 jew services? Do you belong to any clubs or Yes 03/16/2022 organizations such as christianity groups, unions, fraternal or athletic groups, or [...] on filedocumented as of this encounter Results (ABNORMAL) Bacterial Culture, Aerobic + Susc, Urine (05/12/2020 11:31 AM CDT) [facility] gist Method Time Signature Urine Culture ESCHERICHIA COLI 05/14/2020 MKTO >100,000 cfu/mL 8:03 AM CDT (A) Specimen Anatomical Collection Method Collection Time Receive d Time (Source) Location / / Volume Laterality Urine (Urine, 05/12/2020 11:31 05/12/2020 2:07 Midstream) AM CDT PM CDT Comment: Specimen Source Site: Urine Organism Antibiotic Method Susceptibility Escherichia coli Ampicillin SUSCEPTIBILITY, <=2 mcg/mL: Barbara ceptible ALEJANDRA (MCG/ML) Escherichia coli Ampicillin + Sulbactam SUSCEPTIBILITY, <=2 mcg/ mL: Susceptible ALEJANDRA (MCG/ML) Escherichia coli Piperacillin + Tazobactam SUSCEPTIBILITY, <=4 m cg/mL: Susceptible ALEJANDRA (MCG/ML) Escherichia coli Cefazolin SUSCEPTIBILITY, <=4 mcg/mL: Barbara ceptible ALEJANDRA (MCG/ML) Escherichia coli Ceftazidime SUSCEPTIBILITY, <=1 mcg/mL: Barbara ceptible ALEJANDRA (MCG/ML) Escherichia coli Ceftriaxone SUSCEPTIBILITY, <=1 mcg/mL: Barabra ceptible ALEJANDRA (MCG/ML) Escherichia coli Cefepime SUSCEPTIBILITY, <=1 mcg/mL: Barbara ceptible ALEJANDRA (MCG/ML) Escherichia coli Aztreonam SUSCEPTIBILITY, <=1 mcg/mL: Barbara ceptible ALEJANDRA (MCG/ML) Escherichia coli Ertapenem SUSCEPTIBILITY, <=0.5 mcg/mL: ALEJANDRA (MCG/ML) Susceptible Escherichia coli Meropenem SUSCEPTIBILITY, <=0.25 mcg/mL: ALEJANDRA (MCG/ML) Susceptible Escherichia coli Gentamicin SUSCEPTIBILITY, <=1 mcg/mL: Barbara ceptible ALEJANDRA (MCG/ML) Escherichia coli Tobramycin SUSCEPTIBILITY, <=1 mcg/mL: Barbara ceptible ALEJANDRA (MCG/ML) Escherichia coli Levofloxacin SUSCEPTIBILITY, 0.25 mcg/mL: Ann sceptible ALEJANDRA (MCG/ML) Escherichia coli Nitrofurantoin SUSCEPTIBILITY, <=16 mcg/mL: Ann sceptible ALEJANDRA (MCG/ML) Escherichia coli Trimethoprim + SUSCEPTIBILITY, <=20 mcg/mL: Ann sceptible Sulfamethoxazole ALEJANDRA (MCG/ML) Igor Horn P.A.-C. LAB MICROBIOLOGY - GENERAL O RDERABLES Performing Organization Address City/State/ZIP Code Phon e Number [facility]- [address] [place] [address] [place] [address] System in [address] (ABNORMAL) Urinalysis with Microscopic if Indicated (05/12/2020 11:31 AM CDT) P athologist Signature Source Midstream 05/12/2020 FB60 11:41 AM CDT Clarity Cloudy (A) Clear 05/12/2020 FB60 11:41 AM CDT Color Yellow 05/12/2020 FB60 11:41 AM CDT Comment: ----REFERENCE VALUE---- Colorless Yellow Dayanna Blood Trace (A) Negative 05/12/2020 11:41 AM CDT FB60 Nitrite Positive (A) Negative 05/12/2020 11:41 AM CDT FB6 0 Leukocyte Esterase Large (A) Negative 05/12/2020 11:41 AM C DT FB60 Protein Negative mg/dL 05/12/2020 11:41 AM CDT FB60 Comment: ----REFERENCE VALUE---- Negative Trace Glucose Negative Negative mg/dL 05/12/2020 11:41 AM CDT F B60 Ketones, QI(U) Negative Negative mg/dL 05/12/2020 11:41 AM CDT FB60 Bilirubin Negative Negative 05/12/2020 11:41 AM CDT FB60 pH 7.0 5.0 - 8.0 05/12/2020 11:41 AM CDT FB60 Specific [place] 1.020 1.001 - 1.035 05/12/2020 11:41 AM CDT FB60 Urobilinogen 0.2 0.2 - 1.0 mg/dL 05/12/2020 11:41 AM C DT FB60 Specimen Anatomical Collection Method Collection Time Receive d Time (Source) Location / / Volume Laterality Urine (Urine, 05/12/2020 11:31 05/12/2020 Clean Catch) AM CDT 11:37 AM CDT Igor Horn P.A.-C. LAB URINE ORDERABLES Performing Organization Address City/State/ZIP Code Phon e Number [address] [place] [address] [facility] FB60 [place] [address] [address] documented in this encounter Visit Diagnoses Diagnosis Dysuria - Primary documented in this encounter Care Teams Certified Medical Coder Relationship Specialty Start Date End Date Igor Horn P.A.-C. PCP - General 06/14/18 03/15/22 [address] [place] [address] documented as of this encounter
--- OUTSIDE RECORDS SUMMARY | 2022-07-10 08:18 | XMS_ITS | Encounter Summary ---
:1940 Author Organization [facility] Address [address] [place] [address] Care Team Providers Name Role Phone Igor Horn P.A.-C. Primary Care Provider [phone] Encounter Details Date Type Department Care Team Description 03/03/2021 Clinical Communication Division of Allergic [facility] in [place]ani Ryder M.D. [address] [place] [phone] Social History Tobacco Use Types Packs/Day Years [...] or relatives? How often do you attend lutheran or More than 4 times per year 03/16/2022 mormon services? Do you belong to any clubs or Yes 03/16/2022 organizations such as lutheran groups, unions, fraternal or athletic groups, or [...] place to sleep or slept in a long-term (including now)? Education Answer Date Recorded What is the highest level of school Master's degree (e.g., M Yady, MS, 02/15/2021 you have completed or the highest Roland, MEd, LIFE SCIENCE TEACHER, MARIE) degree you have received? Sex Assigned at Date Recorded Female 06/26/2021 8:35 AM CDT documented as of this encounter Plan of Treatment Not on filedocumented as of this encounter Visit Diagnoses Not on filedocumented in this encounter Care Teams Reading Efficiency Course Director Relationship Specialty Start Date End Date Igor Horn P.A.-C. PCP - General 06/14/18 03/15/22 [address] [place] [phone] documented as of this encounter
--- OUTSIDE RECORDS SUMMARY | 2022-07-10 08:18 | XMS_ITS | Encounter Summary ---
:1940 Author Organization [facility] Address [address] [place] [address] Care Team Providers Name Role Phone Igor Horn P.A.-C. Primary Care Provider [phone] Encounter Details Date Type Department Care Team Description 05/10/2020 Nurse Triage Department of [facility] Rodriguez Mcneil [facility], [facility], [address] [place] [address] [place] [address] [address] [place] [address] Social History Tobacco Use Types Packs/Day Years [...] or relatives? How often do you attend mandaen or More than 4 times per year 03/16/2022 caodaism services? Do you belong to any clubs or Yes 03/16/2022 organizations such as mandaen groups, unions, fraternal or athletic groups, or [...] on filedocumented in this encounter Care Teams Cook Chili Relationship Specialty Start Date End Date Igor Horn P.A.-C. PCP - General 06/14/18 03/15/[address] [place] [phone] documented as of this encounter
--- OUTSIDE RECORDS SUMMARY | 2022-07-10 08:18 | XMS_ITS | Encounter Summary ---
:1940 Author Organization [facility] Address [address] [place] [address] Care Team Providers Name Role Phone Igor Horn P.A.-C. Primary Care Provider Reason for Visit Reason Comments Med Refill Encounter Details Date Type Department Care Team Description 02/06/2021 Refill Department of Family Medicine, Igor Ross P.A.-C. Med Refill [facility], in [address] [place] [phone] [place] [address] [place] [address] [phone] Social History Tobacco Use Types Packs/Day Years [...] or relatives? How often do you attend yazdanism or More than 4 times per year 03/16/2022 anglican services? Do you belong to any clubs or Yes 03/16/2022 organizations such as yazdanism groups, unions, fraternal or athletic groups, or [...] for the very basics like Not h shyela at all 03/16/2022 food, housing, medical care, [...] this encounter Miscellaneous Notes Telephone Encounter - Kristal Alva - 02/06/2021 12:56 PM CDT Lab Results Component Value Date TSH 1.9 02/18/2020 Labs currently scheduled 02/15 documented in this encounter Plan of Treatment Not on filedocumented as of this encounter Visit Diagnoses Not on filedocumented in this encounter Care Teams Seat Mender Relationship Specialty Start Date End Date Igor Horn P.A.-C. PCP - General 06/14/18 03/15/22 [address] [place] [address] documented as of this encounter
--- OUTSIDE RECORDS SUMMARY | 2022-07-10 08:18 | XMS_ITS | Encounter Summary ---
:1940 Author Organization [facility] Address [address] [place] [address] Care Team Providers Name Role Phone Igor Horn P.A.-C. Primary Care Provider [phone] Reason for Referral Outpatient (Routine) - Closed Specialty Diagnoses / Procedures Referred By Contact Refer red To Contact Allergy and Immunology Valdemar Ma [place] M.D. [address] [place] [phone] Referral ID Status Reason Start Date Expiration Date Visits Requ ested Visits Authorized [id number] Closed 01/10/2021 01/10/2022 1 1 Scheduling Instructions Patient prefers mid-morning appointments after February 09, 2021 Reason for Visit Reason Comments Symptom Assessment Encounter Details Date Type Department Care Team Description 01/09/2021 Clinical Communication Division of Kat Spain ptom Assessment Allergic Diseases D, R.N. in [place], [address] [place] [address] [place] [address] [place], [place] [phone] (Work) [phone] Social History Tobacco Use Types Packs/Day Years [...] or relatives? How often do you attend jewish or More than 4 times per year 03/16/2022 lutheran services? Do you belong to any clubs or Yes 03/16/2022 organizations such as jewish groups, unions, fraternal or athletic groups, or [...] place to sleep or slept in a intermediate (including now)? Education Answer Date Recorded What is the highest level of Professional school degree (e.g ., , 02/19/2020 school you have completed or the DDS, DVM, DEBORAH) highest degree you have received? Sex Assigned at Date Recorded Female 06/26/2021 8:35 AM CDT documented as of this encounter Miscellaneous Notes Telephone Encounter - Mai Abraham - 01/09/2021 1:24 PM CDT . Rosario Cedeño called to notify you that she did go to urgent care today. She was examinedby a Nurse Practitioner who thinks she has a sinus condition/infection that has settled down in her throat. Her larynx is swollen. She was not prescribed an anti-biotic since her sputum has been clear.She was prescribed 40mg Prednisone to take once daily for 1 week and to continue using her rescue inhaler as needed. Telephone Encounter - Kat Spain R.N. - 01/09/2021 11:12 AM CDT Return call to patient to provide an update. Explained to Rosario that Dr. Ma recommends that shebe seen in her local clinic today, given the thick, yellow sputum and increased need for albuterol to be sure that other causes like infection, are not missed. Patient expresses understanding and is agreeable to the plan. Patient states that she has access to a local urgent care center and will seek an appointment today. Reviewed signs/symptoms of an asthma attack and when to seek emergency care. Rosario expressed understanding of these symptoms and how to seek care. Additionally, Rosario will receive a call to schedule a follow-up appointment with Dr. Ma upon return to [place]. She expressed that she will return February 09 and prefers mid-morning appointments. Telephone Encounter - Valdemar Ma M.D. - 01/09/2021 11:10 AM CDT Reviewed. Given the combination of current symptoms, do not feel comfortable prescribing treatment without an examination. Recommend that she be seen locally to be assessed and managed. Thanks. Telephone Encounter - Kat Spain R.N. - 01/09/2021 10:41 AM CDT CHIEF COMPLAINT/REASON FOR VISIT Rosario Cedeño calling to report symptoms of asthma. HISTORY OF PRESENT ILLNESS Rosario Cedeño denies having emergency asthma symptoms of: persistent wheezing aftera treatment, difficulty breathing, weakness, listlessness, cyanosis of lips and/or nose, inability to complete full sentences, inability to breathe laying down or struggling to breathe several minutes after taking quick-relief medication. Rosario Cedeño was last seen in the Department of Allergic Diseases for asthma on August 19, [address] Valdemar Ma. Asthma symptoms include a cough and shortness of breath and symptoms are new and began one week ago. she has not been ill recently. Fever is not present. Patient has been coughing. Reports cough characteristics as productive of dark, thick and yellow sputum. Rosario Cedeño has been using Albuterol inhaler. Last dose was today at 10:30. She reports using Albuterol approx. 3-4 times per day a few days of this last week. she reports it did relieve asthma symptoms, but not completely. she is not waking at night with asthma symptoms. she is notable to walk across the room without getting winded. slightly more than at baseline. She does not use peak flow meter at baseline. Rosario Cedeño reports taking the following medications for asthma: short-acting beta-agonists, inhaled steroids and leukotriene inhibitors. Last oral steroid use was December 2019. she does not have a local primary care provider she can be seen for asthma symptoms while in [place] for the winter. ASSESSMENT/PLAN The following home care recommendations have been provided to the patient: Increase fluid intake; consume water and clear fluids. Avoid know triggers (I.e. animal dander, body and hair products and cleaning solvents) Disposition/Recommendation: notified provider and awaiting recommendations Education: patient/caller able to teach back Caller agreeable to plan of care: yes The following references were used: nursing clinical judgement and nursing guidelines/procedures: asthma triage documented in this encounter Plan of Treatment Scheduled Referrals Name Type Priority Associated Order Schedule Diagnoses Allergy and Outpatient Referral Routine Expected : Immunology office 03/10/2021 visit (clinic) (Approximate) , Expires: 01/10/2024 documented as of this encounter Visit Diagnoses Not on filedocumented in this encounter Care Teams Implant Coordinator Relationship Specialty Start Date End Date Igor Horn P.A.-C. PCP - General 06/14/18 03/15/22 [address] [place] [address] documented as of this encounter
--- OUTSIDE RECORDS SUMMARY | 2022-07-10 08:18 | XMS_ITS | Encounter Summary ---
:1940 Author Organization [facility] Address [address] [place] [address] Care Team Providers Name Role Phone Igor Horn P.A.-C. Primary Care Provider [phone] Encounter Details Date Type Department Care Team Description 12/02/2020 Orders Only Department of [facility] Igor Horn, Medicine, [facility], PNeda Jones in [facility] [address] [place] [address] [place] [address] [phone] Social History Tobacco Use Types Packs/Day Years [...] or relatives? How often do you attend taoism or More than 4 times per year 03/16/2022 sabianism services? Do you belong to any clubs or Yes 03/16/2022 organizations such as taoism groups, unions, fraternal or athletic groups, or school groups? How often do you attend meetings of the More than 4 times [facility] year 03/16/2022 clubs or organizations [...] place to sleep or slept in a [facility] (including now)? Education Answer Date Recorded What [...] on filedocumented in this encounter Care Teams Radiotelegrapher Relationship Specialty Start Date End Date Igor Horn P.A.-C. PCP - General 06/14/18 03/15/22 [address] [place] [address] documented as of this encounter
--- OUTSIDE RECORDS SUMMARY | 2022-07-10 08:18 | XMS_ITS | Encounter Summary ---
:[address] [facility] Address [address] [place] [address] Care Team Providers Name Role Phone Igor Horn P.A.-C. Primary Care Provider [phone] Encounter Details Date Type Department Care Team Description 08/01/2021 Orders Only [facility] PCP [facility] Sa tanisha Arora M.D. [address] [place], [place] [phone] (Wo rk) Social History Tobacco Use Types [...] More than 4 times per year 03/16/2022 religion services? Do you belong to any clubs [...] have completed or the highest Roland, MEd, ANIMAL CARE SERVICE WORKER, MARIE) degree you have received? Sex Assigned at Date Recorded Female 06/26/2021 8:35 AM CDT documented as of this encounter Plan of Treatment Not on filedocumented as of this encounter Visit Diagnoses Not on filedocumented in this encounter Care Teams Game Trapper Relationship Specialty Start Date End Date Igor Horn P.A.-C. PCP - General 06/14/18 03/15/22 [address] [place] [phone] documented as of this encounter
--- OUTSIDE RECORDS SUMMARY | 2022-07-10 08:18 | XMS_ITS | Encounter Summary ---
:1940 Author Organization [facility] Address [address] [place] [address] Care Team Providers Name Role Phone Igor Horn P.A.-C. Primary Care Provider [phone] Reason for Visit Reason Comments Med Refill Encounter Details Date Type Department Care Team Description 12/28/2020 Refill Department of Family Medicine, Igor Ross P.A.-C. Med Refill [facility], in [address] [place] [phone] [place] [address] [place] [address] [phone] Social History Tobacco Use Types Packs/Day Years [...] or relatives? How often do you attend zoroastrian or More than 4 times per year 03/16/2022 gnosticist services? Do you belong to any clubs or Yes 03/16/2022 organizations such as zoroastrian groups, unions, fraternal or athletic groups, or [...] on filedocumented in this encounter Care Teams Map Colorer Relationship Specialty Start Date End Date Igor Horn P.A.-C. PCP - General 06/14/18 03/15/22 [address] [place] [address] documented as of this encounter
--- OUTSIDE RECORDS SUMMARY | 2022-07-10 08:18 | XMS_ITS | Encounter Summary ---
:1940 Author Organization [facility] Address [address] [place] [address] Care Team Providers Name Role Phone Igor Horn P.A.-C. Primary Care Provider [phone] Reason for Visit Reason Comments Communication symptoms Encounter Details Date Type Department Care Team Description 05/10/2020 Clinical Department of Steve Horn [facility], [facility] [address] [facility] [address] [place], [place] [phone] (Work) [phone] Social History Tobacco Use Types Packs/Day Years [...] or relatives? How often do you attend gnosticism or More than 4 times per year 03/16/2022 yazidi services? Do you belong to any clubs or Yes 03/16/2022 organizations such as gnosticism groups, unions, fraternal or athletic groups, or [...] this encounter Miscellaneous Notes Telephone Encounter - Rhona Chatman R.N. - 05/10/2020 10:24 AM CDT Concern already addressed by Dr. Astorga via patient portal. Telephone Encounter - Diana Lawson - 05/10/2020 10:19 AM CDT Reason for Communication: Patient called and spoke to NL, NL triaged, see note regarding UTI symptoms. Nurseline asked to send a note to see if another antibiotic might need to be prescribed or if you would like a UC. Uses Olivia Rusk Current Can Nursing/Provider leave a detailed message: Did the patient refuse triage through Nurse line? (for symptom based concerns): Action Needed: please clal Name of Medication (if relevant): documented in this encounter Plan of Treatment Not on filedocumented as of this encounter Visit Diagnoses Not on filedocumented in this encounter Care Teams Clinical Nurse Occupational Medicine Relationship Specialty Start Date End Date Igor Horn P.A.-C. PCP - General 06/14/18 03/15/22 [address] [place] [phone] documented as of this encounter
--- OUTSIDE RECORDS SUMMARY | 2022-07-10 08:18 | XMS_ITS | Encounter Summary ---
:1940 Author Organization [facility] Address [address] [place] [address] Care Team Providers Name Role Phone Igor Horn P.A.-C. Primary Care Provider Encounter Details Date Type Department Care Team Description 05/12/2020 Hospital Encounter Department of Laboratory Igor Horn, Dysuria Medicine in [place] [address] [facility] [address] [place] [phone] (Wo rk) Social History Tobacco Use Types [...] AM CDT documented as of this encounter Medications at Time of Discharge Medication Sig Dispensed Refills Start Date End Date amoxicillin (AMOXIL) 500 mg Take 2,000 mg by 0 capsule mouth. CALCIUM CARB/VIT D3/MINERALS Take 1 tablet by 0 0 11/05/2011 (CALCIUM-VITAMIN D ORAL) mouth 2 (two) times a day. DOCOSAHEXANOIC ACID/EPA 3 (three) times 0 010 (FISH OIL ORAL) a day. 2 in AM 1 capsule in PM sulfamethoxazole-trimethopri Take 1 tablet by 14 tablet 0 0 05/12/2020 05/19/2020 m (BACTRIM DS) 800-160 mg mouth 2 (two) per tabletIndications: times a day for Infection Urinary Tract 7 days. albuterol (Ventolin HFA) Inhale 1 puff 1 Inhaler 12/28/1912/28/2020 inhaler every 4 (four) hours as needed for wheezing. celecoxib (CeleBREX) 200 mg Take 1 capsule 90 capsule 3 02/0502/06/2021 capsule (200 mg total) by mouth daily. With a meal. fluticasone Inhale 1 puff 3 each 12/28/2019 12/28/2020 propion-salmeteroL (Advair daily. Diskus) 100-50 mcg/actuation diskus inhaler hydroCHLOROthiazide Take 1 tablet by 90 tablet 3 02/10/2020 02/06/2021 (HYDRODIURIL) 25 mg tablet mouth once daily. levothyroxine (SYNTHROID, Take 1 tablet by 90 tablet 3 03/202002/06/2021 LEVOTHROID) 75 mcg tablet mouth once daily. lisinopriL Take 1 tablet by 90 tablet 3 02/10/2020 02/07/20 21 (PRINIVIL,ZESTRIL) 30 mg mouth once tablet daily. montelukast (SINGULAIR) 10 Take 1 tablet by 100 tablet 3 03/202002/06/2021 mg tablet mouth once daily. pravastatin (PRAVACHOL) 40 Take 1.5 tablets 135 tablet 3 03/202012/01/2020 mg tablet by mouth at bedtime. predniSONE (DELTASONE) 10 mg Take 1 tablet 20 tablet 2 12/0609/14/2021 tablet (10 mg total) by mouth daily. triamcinolone (KENALOG) 0.1 Apply to 30 g 0 12/28/19 20 02/15/2021 % cream affected area 1-2 times daily as needed. Avoid face and groin. documented as of this encounter Miscellaneous Notes Result Encounter Note - Fide Durant L.P.N. - 05/12/2020 1:30 PM CDT Name of person contacted: Patient Relationship to patient: Not applicable Call back number: [phone] Nurse Rn Bsn: Not applicable Information provided: Patient notified of results and recommendations as listed above by TORIE De Oliveira. Patient was instructed to continuous pickling line pickler and start the Bactrim. appraiser personal property/patient received and understood education/information provided: Yes appraiser personal property/patient agreed to the Plan of Care: Yes documented in this encounter Plan of Treatment Not on filedocumented as of this encounter Procedures Procedure Name Priority Date/Time Associated Comments Diagnosis URINALYSIS WITH Routine 05/12/2020 11:31 Dysuria Results for this MICROSCOPIC IF AM CDT procedure are in INDICATED, U the results section. [place] URINALYSIS AUTO WO Routine 05/12/2020 11:31 Re sults for this MICRO AM CDT procedure are i n the results section. BACTERIAL CULTURE, Routine 05/12/2020 11:31 Dysuria Resul ts for this AEROBIC + SUSC, URINE AM CDT proced ure are in the results section. documented in this encounter Results (ABNORMAL) Microscopic Manual (05/12/2020 11:31 AM CDT) Analysis Performed At Patho logist Time Signature White Blood 41-50 (A) /hpf 05/12/2020 FB60 Cells 11:49 AM CDT Comment: ----REFERENCE VALUE---- Males: 0-3 Females: 0-10 Unknown: 0-10 Red Blood Cells Occ-2 0 - 2 /hpf 05/12/2020 11:49 AM CDT FB60 Squamous Cells Occ-3 /hpf 05/12/2020 11:49 AM CDT F B60 Bacteria Present (A) None Seen 05/12/2020 11:49 AM CDT FB60 Specimen Anatomical Collection Method Collection Time Receive d Time (Source) Location / / Volume Laterality Urine 05/12/2020 11:31 05/12/2020 AM CDT 11:37 AM CDT Igro Horn P.A.-C. LAB URINE ORDERABLES Performing Organization Address City/State/ZIP Code Phon e Number [address] [place], [place] [phone] [place] [address] LAB FB60 [place] [address] System in [address] (ABNORMAL) Bacterial Culture, Aerobic + Susc, Urine (05/12/2020 11:31 AM CDT) Patholo gist Method Time Signature Urine Culture ESCHERICHIA [...] (MCG/ML) Escherichia coli Ceftriaxone SUSCEPTIBILITY, <=1 mcg/mL: Barbara ceptible ALEJANDRA (MCG/ML) Escherichia coli Cefepime SUSCEPTIBILITY, [...] Address City/State/ZIP Code Phon e Number [facility]- [address] [place] [phone] [place] [address] [place] [address] System [address] (ABNORMAL) Urinalysis with Microscopic if Indicated [...] 8.0 05/12/2020 11:41 AM CDT FB60 Specific [place] 1.020 1.001 - 1.035 05/12/2020 11:41 AM CDT FB60 Urobilinogen 0.2 0.2 - 1.0 mg/dL 05/12/2020 11:41 AM C DT FB60 Specimen Anatomical Collection Method Collection Time Receive d Time (Source) Location / / Volume Laterality Urine (Urine, 05/12/2020 11:31 05/12/2020 Clean Catch) AM CDT 11:37 AM CDT Igor Horn P.A.-C. LAB URINE ORDERABLES Performing Organization Address City/State/ZIP Code Phon e Number [place] [address] [place] [address] [facility] [place] [address] System in [address] documented in this encounter Visit Diagnoses Diagnosis Dysuria documented in this encounter Care Teams Aeronautical Project Engineer Relationship Specialty Start Date End Date Igor Horn P.A.-C. PCP - General 06/14/18 03/15/22 [address] [place] [phone] documented as of this encounter
--- OUTSIDE RECORDS SUMMARY | 2022-07-10 08:18 | XMS_ITS | Encounter Summary ---
:1940 Author Organization [facility] Address [address] [place] [address] Care Team Providers Name Role Phone Igor Horn P.A.-C. Primary Care Provider [phone] Encounter Details Date Type Department Care Team Description 12/01/2020 Orders Only Department of [facility] Igor Horn, Medicine, [facility], PNeda Jones in [facility] [address] [place] [address] [place] [address] [phone] Social History Tobacco Use Types Packs/Day Years [...] or relatives? How often do you attend worship or More than 4 times per year 03/16/2022 adventist services? Do you belong to any clubs or Yes 03/16/2022 organizations such as worship groups, unions, fraternal or athletic groups, or school groups? How often do you attend meetings of the More than 4 times [facility] year 03/16/2022 clubs or [...] on filedocumented in this encounter Care Teams Chief Creative Officer Relationship Specialty Start Date End Date Igor Horn P.A.-C. PCP - General 06/14/18 03/15/22 [address] [place] [address] documented as of this encounter
--- OUTSIDE RECORDS SUMMARY | 2022-07-10 08:18 | XMS_ITS | Encounter Summary ---
:1940 Author Organization [facility] Address [address] [place] [address] Care Team Providers Name Role Phone Igor Horn P.A.-C. Primary Care Provider [phone] Reason for Visit Reason Comments Follow-up question re prednisone Encounter Details Date Type Department Care Team Description 01/16/2021 Clinical Communication Division of Kang Ma w-up question Allergic Diseases Valdemar Olivo M.D. re prednisone in [place], [facility] [address] [place], [place] [address] [place] [address] [place], [place] [phone] (Work) [phone] Social History Tobacco Use Types Packs/Day Years [...] or relatives? How often do you attend yazidism or More than 4 times per year 03/16/2022 sikhism services? Do you belong to any clubs or Yes 03/16/2022 organizations such as yazidism groups, unions, fraternal or athletic groups, or [...] this encounter Miscellaneous Notes Telephone Encounter - Valdemar Ma M.D. - 01/16/2021 11:24 AM CDT Yes, I think this would be a reasonable approach. She should, though, check in with the clinic that saw her to also get their input. Thanks. Telephone Encounter - Kimberly Medel R.N. - 01/16/2021 11:16 AM CDT SUBJECTIVE CHIEF COMPLAINT / REASON FOR CALL Follow-up question re prednisone Information Discussed Patient called in last week regarding asthma and sinus symptoms. Patient was seen locally as directed by Dr. Ma and she was put on Prednisone 40mg daily for 7 days and an antibiotic. Patient saidshe is feeling much better, however she is wondering if she can taper the Prednisone. This patient was asked if she can call the local provider that prescribed this medication? Patient said she could try but didn't think it would work because it was an urgent care. Patient is wondering if she can taper her Prednisone eg; 20mg for two day sand then 10mg for two days and then stop. This nurse will pass along to Dr. Ma and if he doesn't think this is best then will reach backout to patient. PLAN Disposition/Recommendation: Will pass along message to provider. Information/Education: patient/caller able to teach back Caller agreeable to plan of care: yes The following references were used: nursing clinical judgement Telephone Encounter - Karina Perdomo - 01/16/2021 10:12 AM CDT She has a follow-up question about the prednisone dose from last week's asthma flare. documented in this encounter Plan of Treatment Not on filedocumented as of this encounter Visit Diagnoses Not on filedocumented in this encounter Care Teams Power Shear Operator Relationship Specialty Start Date End Date Igor Horn P.A.-C. PCP - General 06/14/18 03/15/22 [address] [place] [phone] documented as of this encounter
--- OUTSIDE RECORDS SUMMARY | 2022-07-10 08:18 | XMS_ITS | Encounter Summary ---
:1940 Author Organization [facility] Address [address] [place] [address] Care Team Providers Name Role Phone Igor Horn P.A.-C. Primary Care Provider [phone] Encounter Details Date Type Department Care Team Description 06/30/2021 Ancillary Procedure Department of Dermatology Social History Tobacco Use Types Packs/Day Years [...] or relatives? How often do you attend caodaism or More than 4 times per year 03/16/2022 islam services? Do you belong to any clubs or Yes 03/16/2022 organizations such as caodaism groups, unions, fraternal or athletic groups, or [...] have completed or the highest Roland, MEd, DIRECTOR PAYER, MARIE) degree you have received? Sex Assigned at Date Recorded Female 06/26/2021 8:35 AM CDT documented as of this encounter Plan of Treatment Not on filedocumented as of this encounter Procedures Procedure Name Priority Date/Time Associated Comments Diagnosis DERMATOLOGY IMAGE Routine 06/30/2021 12:00 Result s for this EXAM AM CDT procedure are i n the results section. documented in this encounter Results Back 527-Dermatology Image Exam (06/30/2021 12:00 AM CDT) Specimen (Source) Anatomical Location Collection Method / Collectio n Time Received Time / Laterality Volume Narrative [facility] - 06/30/2021 1:46 PM CDT This order has been created and auto-finalized to support the import of images acquired without order. The clini jacqueline documentation to support these images can be found on the encounter juan j t produced images. Provider Not In System IMG NON RAD IMAGING PROCEDUR ES Performing Organization Address City/State/ZIP Code Phon e Number [facility] NA documented in this encounter Visit Diagnoses Not on filedocumented in this encounter Care Teams Metal Tube Cutter Relationship Specialty Start Date End Date Igor Horn P.A.-C. PCP - General 06/14/18 03/15/22 [address] [place] [phone] documented as of this encounter
--- OUTSIDE RECORDS SUMMARY | 2022-07-10 08:18 | XMS_ITS | Encounter Summary ---
:1940 Author Organization [facility] Address [address] [place] [address] Care Team Providers Name Role Phone Igor Horn P.A.-C. Primary Care Provider [phone] Reason for Visit Reason Comments Medication Question Encounter Details Date Type Department Care Team Description 10/02/2021 Clinical Communication Division of Anil, Medic ation Question Allergic Diseases Valdemar Olivo M.D. in [address] [place] [phone] [place], [place] [phone] (Work) [phone] Social History Tobacco Use Types Packs/Day Years [...] or relatives? How often do you attend scientologist or More than 4 times per year 03/16/2022 sabianist services? Do you belong to any clubs or Yes 03/16/2022 organizations such as scientologist groups, unions, fraternal or athletic groups, or [...] have completed or the highest Roland, MEd, POST MANAGER, MARIE) degree you have received? Sex Assigned at Date Recorded Female 06/26/2021 8:35 AM CDT documented as of this encounter Miscellaneous Notes Addendum Note - John Paul Flores R.N. - 10/02/2021 12:56 PM RELATIONSHIP ASSOCIATE Addended by: JOHN PAUL FLORES on: 10/02/2021 12:56 PM Modules accepted: Orders TIONSHIP ASSOCIATE Telephone Encounter - Anitha Alexander R.N. - 10/02/2021 11:44 AM CST Question(s) to be answered: Would you be able to fill a one time refill for Advair and Prednisone to [place], [place]? Background: Patient is in [place] visiting her children. She is requesting a one time refill of the noted medications in case she would need them before she returns from her trip. She is taking prednisone 10 mgdaily, as her asthma acted up some while in [place]. Her symptoms have improved since taking thisdosage. Date last seen: 03/07/21 Diagnoses: Asthma Recommendations: Please fill one time refill of medications as you see fit. Medications pended for review. TIONSHIP ASSOCIATE Telephone Encounter - Karina Perdomo - 10/02/2021 11:39 AM CST She is currently in [facility] visiting family. She has an unusual medication question. TIONSHIP ASSOCIATE documented in this encounter Plan of Treatment Not on filedocumented as of this encounter Visit Diagnoses Diagnosis Asthma Intrinsic (HCC) - Primary documented in this encounter Care Teams Perioperative Nurse Relationship Specialty Start Date End Date Iogr Horn P.A.-C. PCP - General 06/14/18 03/15/22 [address] [place] [address] documented as of this encounter
--- OUTSIDE RECORDS SUMMARY | 2022-07-10 08:18 | XMS_ITS | Encounter Summary ---
:1940 Author Organization [facility] Address [address] [place] [address] Care Team Providers Name Role Phone Igor Horn P.A.-C. Primary Care Provider [phone] Reason for Visit Outpatient (Routine) - Closed Specialty Diagnoses / Procedures Referred By Contact Refer red To Contact Dermatology Diagnoses Lesion Skin Igor Horn P.A.-C. [place] [address] [place] [address] Referral ID Status Reason Start Date Expiration Date Visits V isits Requested Authorized [id number] Closed Specialty 05/15/2021 05/15/2022 1 1 Services Required Encounter Details Date Type Department Care Team Description 06/30/2021 Comprehensive Visit Department of Mervat Guy atosis Seborrheic (Primary Dx); Dermatology in A, CLOTH CARRIER, C.N.P., Cancer Sk in Basal Cell Personal History; Aleksey, D.N.P. Cancer Skin Squamous Cell Personal Histo ry; [place] [address] [facility] Tumor Skin Uncertain Behavior; [address] [place], [place] Dermatoheliosis; [place] [address] Angioma Salmeron; [id number] Intertrigo Social History Tobacco Use Types Packs/Day Years [...] More than 4 times per year 03/16/2022 taoist services? Do you belong to any clubs [...] have completed or the highest Roland, MEd, ELECTRICIAN FRONT, MARIE) degree you have received? Sex Assigned at Date Recorded Female 06/26/2021 8:35 AM CDT documented as of this encounter Progress Notes Kathryn Moreau, R.N. - 06/30/2021 10:00 AM CDT Shave biopsy with electrodesiccation and curettage on the lower back was/were performed as ordered and outlined by Mervat Guy ([phone]) CLOTH CARRIER, AWAKE OVERNIGHT COUNSELOR, MSN in the clinical note dated with today's date. documented in this encounter Consult Notes Mervat Guy APRN, C.NAntwanP., M.S.N. - 06/30/2021 10:00 AM CDT REFERRED BY Igor Horn P.A.-C. CHIEF COMPLAINT/REASON FOR VISIT History of nonmelanoma skin cancer HISTORY OF PRESENT ILLNESS Ms. Ainsley Cedeño is a pleasant 80 y.o. female who presents today for a full skin cancer screening examination. The patient has a history of multiple nonmelanoma skin cancers, as detailed below. I last evaluated Ms. Cedeño on 03/23/2020, at which time there was no clinical evidence of recurrence of skin cancer. Inflamed seborrheic keratoses x9 on the right upper cheek and back were treated with liquid nitrogen cryotherapy, as well as 2 actinic keratoses on the left forehead and left lower eyelid. Remaining skin findings were benign. Today, she reports bothersome spots of concern on the left shoulder and left breast. She also reports she is using triamcinolone under the breasts and under the abdomen for [id number] irritation, which worsened this summer. The patient does spend her ashley in [place], and tries to be diligent withphotoprotection. Allergies Allergen Reactions ??? Animal Dander Shortness [...] cell carcinoma in situ, right forearm, 2001 FAMILY DERMATOLOGIC HISTORY Negative for skin cancer [...] papules consistent with salmeron angiomas. There is bright red erythema involving the breast and abdominal folds. On the right lower paraspinal back is a 1.3 cm irregular pink, scaly papule with overlying telangiectasias. The spot of concern on the left shoulder is a brown, waxy,stuck-on appearing papule consistent with a seborrheic keratosis. IMPRESSION/REPORT/PLAN #1 Skin cancer screening examination #2 Dermatoheliosis #3 History of nonmelanoma skin cancer Sun protection and sun avoidance were reviewed with the patient. Educational materials were providedregarding skin self-examination, the warning signs and symptoms of skin cancer, and the proper use of sunscreens. I would recommend a full skin cancer screening examination with an appropriately trained clinician every year. #4 Skin tumor uncertain behavior, right lower paraspinal back, 06/30/2021 This is clinically significant for seborrheic keratosis vs superficial basal cell carcinoma. Photographs obtained. Shave biopsy performed. ED&C performed. CONSENT Discussed the risks, benefits, alternatives, and the necessity of other members of the healthcare team participating in the procedure. All questions answered and consent given. UNIVERSAL PROTOCOL Procedural pause conducted to verify: correct patient identity, procedure to be performed, and as applicable, correct side and site, correct patient position, and availability of implants, special equipment, or special requirements. PROCEDURE INFORMATION Shave biopsy. Performed by Kathryn Moreau RN. We explained the potential diagnosis and recommended that we obtain a biopsy. The risks and benefitsof the procedure were discussed, and the patient consented to these procedures. Using 1% lidocaine with epinephrine for local anesthesia, a shave biopsy was obtained from the right lower paraspinal back. Biopsy submitted to Dermatopathology for H&E. Special stains will be performed as indicated. The bleeding was well controlled with application of aluminum chloride. Dressing was applied, and wound care instructions were explained. Biopsy results and any further recommendations will be communicated to the patient by letter. Patient given pamphlet [id number]. The anesthesia used was 1% lidocaine with epinephrine 1:200,000. The skin was prepped in a sterile fashion with alcohol. The lesion was curetted with a 3-mm curette in three different directions and electrodessication of the base until clinically tumor-free margins were obtained. Postoperative size: 1.2 cm. Estimated blood loss: Minimal. Complications: None. Wound care: Routine. Specimen sent to Dermatopathology. Biopsy report is pending. #5 Inflamed seborrheic keratosis One inflamed seborrheic keratosis on the right shoulder was treated with liquid nitrogen cryotherapy. After explaining the procedure, discussing the associated risks, benefits, and alternatives, and obtaining verbal informed consent, the lesion(s) underwent treatment with liquid nitrogen cryotherapy in the standard fashion. Wound care was discussed. #6 Seborrheic keratoses #7 Salmeron angiomas The benign nature of the skin lesion(s) was discussed with the patient. No treatment is required. I recommend continued observation. Should symptoms or changes develop related to this condition, I would recommend a return visit for reassessment. #8 Intertrigo, breast and abdominal folds Intertrigo is a common skin infection that results when two skin surfaces rub together in a warm, moist area. The friction between the skin traps moisture and encourages the growth of bacteria or yeast. Intertrigo typically occurs beneath the breasts, armpits, abdominal skin folds, and groin area. Recommend ketoconazole 2% cream to be applied twice daily for 2-3 weeks, ideally treat one week pastresolution of the redness. May also use ketoconazole 2% shampoo 3 times weekly in the shower. OTC recommendations include Z-bar soap and Zeasorb AF powder. Prevention strategies: -Keep area dry. -Wear loose fitting clothing. -Dry yourself completely after bathing, swimming, or exercising. You can use a blow dryer on a low setting to completely dry the area. -Apply barrier ointments such as Vaseline, A&D Ointment, and Desitin to affected areas. -Moisture absorbing powders such as Gold Devries, talcum powder, or Zeasorb. PATIENT EDUCATION Ready to learn. No apparent learning barriers were identified. Learning preferences include listening. Explained diagnosis and treatment plan; patient/guardian of patient expressed understanding of thecontent. I personally performed the services described in this documentation, as scribed in my presence, and it is both accurate and complete. Scribed for Mervat Guy APRN, C.N.P., M.S.N. by Gay Buitrago, on 06/30/2021, 6:27 AM CDT. documented in this encounter Plan of Treatment Not on filedocumented as of this encounter Procedures Procedure Name Priority Date/Time Associated Diagnosis Comme nts DERMATOPATHOLOGY Routine 06/30/2021 10:01 AM Cancer Skin Basal Results for this CDT Cell Personal procedure are in History the results Cancer Skin Squamous section . Cell Personal History Keratosis Seborr heic Tumor Skin Uncertain Behavior documented in this encounter Results Dermatopathology (06/30/2021 10:01 AM CDT) Component Value Ref Test Analysis Performed At [facility] gist Range Method Time Signature 07/05/2021 [facility] 8:24 AM CDT Report Wicho Cameron 07/05/2021 [facility] electronically [place], 8:24 AM CDT signed by Cristiana Gross Description Received in formalin labeled with the patient's n vikram, 07/05/2021 [facility] medical record number, and right lower paraspinal back is 8:24 AM CDT a 1.4 x 0.6 x 0.1 cm pale mccarthy skin shave biopsy. No discrete lesion is grossly identified on the skin surface. The specimen is bisected and submitted entirely in cassette A1. ??Grossed by AJG. Interpretation FINAL DIAGNOSIS 07/05/2021 [facility] A. ??Right lower paraspinal back, Skin shave biopsy: 8:24 AM CDT Superficial and nodular basal cell carcinoma, involving biopsy border Specimen (Source) Anatomical Collection Method Collection Time Re ceived Time Location / / Volume Laterality Skin (Right lower 06/30/2021 10:01 paraspinal back) AM CDT Narrative This result has an attachment that is no t available. Mervat Guy APRN, C.N.P., D.N.P. LAB PATH DERM O RDERABLES Performing Organization Address City/State/ZIP Code Phon e Number [facility] - [address] [place], [place] [address] [place] [address] [facility] [address] documented in this encounter Visit Diagnoses Diagnosis Keratosis Seborrheic - Primary Cancer Skin Basal Cell Personal History Cancer Skin Squamous Cell Personal Histo ry Tumor Skin Uncertain Behavior Dermatoheliosis Angioma Salmeron Intertrigo documented in this encounter Care Teams Machine Set Up Relationship Specialty Start Date End Date Igor Horn P.A.-C. PCP - General 06/14/18 03/15/22 [address] [place] [phone] documented as of this encounter
--- OUTSIDE RECORDS SUMMARY | 2022-07-10 08:18 | XMS_ITS | Encounter Summary ---
:1940 Author Organization [facility] Address [address] [place] [address] Care Team Providers Name Role Phone Igor Horn P.A.-C. Primary Care Provider [phone] Encounter Details Date Type Department Care Team Description 11/21/2020 Orders Only [facility] PCP [facility] Sa tanisha Arora M.D. [address] [place], [place] [phone] (Wo rk) Social History [...] or relatives? How often do you attend nondenominational or More than 4 times per year 03/16/2022 synagogue services? Do you belong to any clubs or Yes 03/16/2022 organizations such as nondenominational groups, unions, fraternal or athletic groups, or [...] place to sleep or slept in a alf (including now)? Education Answer Date Recorded What [...] on filedocumented in this encounter Care Teams Medical Receptionist Biller Relationship Specialty Start Date End Date Igor Horn P.A.-C. PCP - General 06/14/18 03/15/22 [address] [place] [phone] documented as of this encounter
--- OUTSIDE RECORDS SUMMARY | 2022-07-10 08:18 | XMS_ITS | Encounter Summary ---
:1940 Author Organization [facility] Address [address] [place] [phone] Care Team Providers Name Role Phone Igor Horn P.A.-C. Primary Care Provider [phone] Reason for Referral Outpatient (Routine) - Closed Specialty Diagnoses / Procedures Referred By Contact Refer red To Contact Allergy and Immunology Valdemar Ma [place] M.D. [address] [place] [address] Referral ID Status Reason Start Date Expiration Date Visits Requ ested Visits Authorized [id number] Closed 03/07/2021 03/07/2022 1 1 Reason for Visit Outpatient (Routine) - Closed Specialty Diagnoses / Procedures Referred By Contact Refer red To Contact Allergy and Immunology Valdemar Ma [place] M.D. [address] [place] [address] Referral ID Status Reason Start Date Expiration Date Visits Requ ested Visits Authorized [id number] Closed 01/10/2021 01/10/2022 1 1 Encounter Details Date Type Department Care Team Description 03/07/2021 Office Visit Division of Valdemar Hanson Intrinsic (HCC) Diseases in Geovani Ryder M.D. (Primary Dx) [place] [address] [facility] [address] [place] [phone] Social History Tobacco Use Types Packs/Day Years [...] to sleep or slept in a senior living (including now)? Education Answer Date Recorded What is the highest level of school Master's degree (e.g., M A, MS, 02/15/2021 you have completed or the highest Roland, MEd, HARDWOOD FLOOR LAYER, MARIE) degree you have received? Sex Assigned at Date Recorded Female 06/26/2021 8:35 AM CDT documented as of this encounter Last Filed Vital Signs Vital Sign Reading Time Taken Comments Blood Pressure - - Pulse - - Temperature 36.2 ??C (97.2 ??F) 03/07/2021 10:06 AM CDT Respiratory Rate - - Oxygen Saturation - - Inhaled Oxygen Concentration - - Weight - - Height - - Body Mass Index - - documented in this encounter Consult Notes Valdemar Ma M.D. - 03/07/2021 10:00 AM CDT SUBJECTIVE REASON FOR CONSULT Asthma. HISTORY OF PRESENT ILLNESS Ms. Cedeño is a 80-year-old female from [place], [place], who ashley in [place] from August through February with longstanding history of asthma. She was last seen in the division in August of 2018. Over the course of the last year, in general she had done well except for the December time frame whilein [place]. At that time, she had increased cough, wheeze and was seen locally where she was treatedwith prednisone at 40 mg a day for a week and then she subsequently tapered and also an antibiotic. She improved with this regimen and overall feels that she is currently back to her baseline. At baseline, she is using the Advair 100/50 one puff daily and Singulair 10 mg a day. She typically only rarely has to use her albuterol. Unfortunately though, at times of flare, she will find if she increases the Advair that she will develop significant voice issues. She has noticed a pattern with typically worsening of her symptoms in December while in [place] and generally does better here in [place] from the breathing standpoint. Unfortunately, it is just the opposite for her arthritis type symptoms. She does walk 1-2 miles most mornings. She is able to do this without difficulty, though does note some dyspnea with elevations. Past medical history, medications, review of systems are reviewed. OBJECTIVE PHYSICAL EXAMINATION Vital Signs: Temperature 36.2, respiratory rate 14. General: A very pleasant female in no distress. Skin: Negative. Eyes: Negative. ENT: Normal TMs bilaterally. Nose minimal congestion. No polyps. Throat is clear without thrush. Heart: Regular rate and rhythm. Lungs: Clear to auscultation in all boyer. ASSESSMENT / PLAN #1 Asthma, currently controlled We discussed doing a spirometry. We are requiring COVID testing prior to spirometries. At present, we are going to hold on this and we will see how she does during the course of the summer. We did discuss that if there are any issues, we would want to do this prior to her going back to [place] in August. At present, we will continue with the Advair 100/50 one puff daily and Singulair 10 mg a day with albuterol on hand for use on an as-needed basis. In addition, we did discuss particularly in December instituting Zyrtec (cetirizine) 10 mg twice a day along with Flonase 2 squirts each nostril daily which could be increased to twice a day to try and keep allergy symptoms to a minimum and hopefully decrease risk of flare in the December time frame. Certainly these can be used throughout the year in the setting of any allergy or nasal symptoms. Valdemar Ma M.D. CT CT Job ID: [id number] documented in this encounter Plan of Treatment Scheduled Referrals Name Type Priority Associated Order Schedule Diagnoses Allergy and Outpatient Referral Routine Expected : Immunology office 03/07/2022 visit (clinic) (Approximate) , Expires: 03/07/2024 documented as of this encounter Visit Diagnoses Diagnosis Asthma Intrinsic (HCC) - Primary documented in this encounter Care Teams C Java Developer Relationship Specialty Start Date End Date Igor Horn P.A.-C. PCP - General 06/14/18 03/15/[address] [place] [phone] documented as of this encounter
--- OUTSIDE RECORDS SUMMARY | 2022-07-10 08:18 | XMS_ITS | Encounter Summary ---
:1940 Author Organization [facility] Address [address] [place] [address] Care Team Providers Name Role Phone Igor Horn P.A.-C. Primary Care Provider [phone] Reason for Visit Reason Comments Med Refill Encounter Details Date Type Department Care Team Description 09/13/2021 Refill Department of Family Medicine, Igor Ross P.A.-C. Med Refill [facility], in [address] [place] [phone] [place] [address] [place] [address] [phone] Social History Tobacco Use Types Packs/Day Years [...] More than 4 times per year 03/16/2022 mu-ism services? Do you belong to any clubs [...] place to sleep or slept in a fci (including now)? Education Answer Date Recorded What is the highest level of school Master's degree (e.g., M A, MS, 02/15/2021 you have completed or the highest Roland, MEd, AGRICULTURAL LABOR CAMP MANAGER, MARIE) degree you have received? Sex Assigned at Date Recorded Female 06/26/2021 8:35 AM CDT documented as of this encounter Miscellaneous Notes Addendum Note - Gerson Reaves L.P.N. - 09/14/2021 1:43 PM CABLE WIRER Addended by: GERSON REAVES on: 09/14/2021 01:43 PM Modules accepted: Orders E WIRER Telephone Encounter - Gerson Reaves L.P.NAntwan - 09/14/2021 1:40 PM CABLE WIRER SUBJECTIVE CHIEF COMPLAINT / REASON FOR CALL Med Refill Information Discussed Called and spoke to patient she uses the medication when she goes to visit her family because they have cats and they make her asthma act up. PLAN Disposition/Recommendation: notified provider and awaiting recommendations Information/Education: patient/caller able to teach back Caller agreeable to plan of care: yes The following references were used: provider Igor E WIRER documented in this encounter Plan of Treatment Not on filedocumented as of this encounter Visit Diagnoses Not on filedocumented in this encounter Care Teams Patient Transport Officer Relationship Specialty Start Date End Date Igor Horn P.A.-C. PCP - General 06/14/18 03/15/22 [address] [place] [phone] documented as of this encounter
--- OUTSIDE RECORDS SUMMARY | 2022-07-10 08:18 | XMS_ITS | Encounter Summary ---
:1940 Author Organization [facility] Address [address] [place] [address] Care Team Providers Name Role Phone Igor Horn P.A.-C. Primary Care Provider [phone] Encounter Details Date Type Department Care Team Description 05/12/2020 Orders Only Department of Family Igro Horn, In fection Urinary Medicine, [place] [facility], in [place], [address] [place] [address] [address] [facility] [address] [place], [place] [phone] (Work) [phone] Social History Tobacco Use Types Packs/Day Years [...] or relatives? How often do you attend tenriism or More than 4 times per year 03/16/2022 catholic services? Do you belong to any clubs or Yes 03/16/2022 organizations such as tenriism groups, unions, fraternal or athletic groups, or [...] as of this encounter Visit Diagnoses Diagnosis Infection Urinary Tract documented in this encounter Care Teams Box Car Checker Relationship Specialty Start Date End Date Igor Horn P.A.-C. PCP - General 06/14/18 03/15/22 [address] [place] [phone] documented as of this encounter
--- OUTSIDE RECORDS SUMMARY | 2022-07-10 08:18 | XMS_ITS | Encounter Summary ---
:1940 Author Organization [facility] Address [address] [place] [address] Care Team Providers Name Role Phone Igor Horn P.A.-C. Primary Care Provider [phone] Encounter Details Date Type Department Care Team Description 02/15/2021 Hospital Encounter Department of Melissa Horn Essential Primary; Laboratory Medicine Reyna Costa Hypothyroidism Primary; in [place], [address] [place] [address] Hyperlipidemia; [place], [place] Encounter For Screening For Cardiovascular Disorders [address] [address] [place], [place] [phone] [address] (Work) [phone] Social History Tobacco Use Types Packs/Day Years [...] More than 4 times per year 03/16/2022 presybeterian services? Do you belong to any clubs or Yes 03/16/2022 organizations such as jain groups, unions, fraternal or athletic groups, or [...] for the very basics like Not h shelya at all 03/16/2022 food, housing, medical care, [...] have completed or the highest Roland, MEd, WIRE STITCHER MACHINE, MARIE) degree you have received? Sex Assigned [...] 2 (two) times a day. DOCOSAHEXANOIC ACID/EPA (FISH 3 (three) times 0 0 12/21/2009 OIL ORAL) a day. 2 in AM 1 capsule in PM Advair Diskus 100-50 mcg/act Inhale 1 Puff by 60 each 11 0 12/28/2020 10/02/2021 diskus inhaler mouth once daily. albuterol (Ventolin HFA) 90 Inhale 2 puffs 18 g 11 02/0402/16/2022 mcg/actuation inhaler every 4 (four) hours as needed for wheezing. fluticasone propionate Daily as needed 0 07/04/2021 (FLONASE) 50 mcg/actuation nasal spray hydroCHLOROthiazide Take 1 tablet 90 tablet 3 02/15/2021 (HYDRODIURIL) 25 mg tablet (25 mg total) by mouth daily. levothyroxine (SYNTHROID, Take 1 tablet 90 tablet 3 021 02/19/2022 LEVOTHROID) 75 mcg tablet (75 mcg total) by mouth daily. lisinopriL (PRINIVIL,ZESTRIL) Take 1 tablet 90 tablet 3 09/202102/19/2022 30 mg tablet (30 mg total) by mouth daily. montelukast (SINGULAIR) 10 mg Take 1 tablet 90 tablet 3 09/202102/19/2022 tablet (10 mg total) by mouth daily. pravastatin (PRAVACHOL) 40 mg Take 1 tablet 90 tablet 3 09/202102/19/2022 tablet (40 mg total) by mouth daily. predniSONE (DELTASONE) 10 mg Take 1 tablet 20 tablet 2 12/0609/14/2021 tablet (10 mg total) by mouth daily. documented as of this encounter Plan of Treatment Not on filedocumented as of this encounter Procedures Procedure Name Priority Date/Time Associated Diagnosis Comme nts LIPID PANEL, S Routine 02/15/2021 8:46 Hypertension Essential Results for this AM CDT Primary procedure are in Hypothyroidism P rimary the results Hyperlipidemia section. Encounter For Screening For Cardiovascular Disorders THYROID-STIMULATING Routine 02/15/2021 8:46 Hypertension Essen tial Results for this HORMONE-SENSITIVE AM CDT Primary procedure are in (S-TSH) Hypothyroidism P rimary the results Hyperlipidemia section. Encounter For Screening For Cardiovascular Disorders COMPREHENSIVE Routine 02/15/2021 8:46 Hypertension Essential R esults for this METABOLIC PANEL, S/P AM CDT Primary procedure are in Hypothyroidism P rimary the results Hyperlipidemia section. Encounter For Screening For Cardiovascular Disorders documented in this encounter Results S-TSH (Thyroid-Stimulating Hormone - Sensitive) (02/15/2021 8:46 AM CDT) P athologist Signature TSH, Sensitive 2.8 0.3 - 4.2 02/15/2021 OW[facility] mIU/L 11:24 AM CDT Specimen Anatomical Collection Method Collection Time Receive d Time (Source) Location / / Volume Laterality Blood (Blood, 02/15/2021 8:46 AM 02/16/20 21 Venous) CDT 10:39 AM CDT Igor Horn P.A.-C. LAB BLOOD ADD-ON Performing Organization Address City/State/ZIP Code Phon e Number [facility]- [address] [place] [address] [place] [address] System in [place] [address] [facility] (ABNORMAL) Lipid Panel (02/15/2021 8:46 AM CDT) P athologist Signature Cholesterol, 150 mg/dL 02/15/2021 OW[facility] Total 11:23 AM CDT Comment: ----REFERENCE VALUE---- Desirable: < 200 Borderline high: 200 - 239 High: > or = 240 Triglycerides 121 mg/dL 02/15/2021 11:23 AM CDT OW AT Comment: ----REFERENCE VALUE---- Normal: <150 Borderline high: 150-199 High: 200-499 Very high: > or =500 Cholesterol, HDL 40 (L) >=50 mg/dL 02/15/2021 11:23 AM CD T OWAT Calculated LDL 86 mg/dL 02/15/2021 11:23 AM CDT O EBENEZER Comment: ----REFERENCE VALUE---- Desirable: <100 Above Desirable: 100-129 Borderline high: 130-159 High: 160-189 Very high: > or =190 Cholesterol, Non-HDL, Calculated 110 mg/dL 021 11:23 AM CDT OWAT Comment: ----REFERENCE VALUE---- Desirable: <130 Above Desirable: 130-159 Borderline high: 160-189 High: 190-219 Very high: > or =220 Specimen Anatomical Collection Method Collection Time Receive d Time (Source) Location / / Volume Laterality Blood (Blood, 02/15/2021 8:46 AM 02/16/20 21 Venous) CDT 10:39 AM CDT Igor Horn P.A.-C. LAB BLOOD ADD-ON Performing Organization Address City/State/ZIP Code Phon e Number [facility]- [address] [facility] [place] [address] [place] [place] [address] System in [place] [address] [facility] Comprehensive Metabolic Panel (02/15/2021 8:46 AM CDT) P athologist Signature Potassium, P 4.1 3.6 - 5.2 02/15/2021 OW[place] mmol/L 11:23 AM CDT Sodium, P 139 135 - 145 02/15/2021 OW[facility] mmol/L 11:23 AM CDT Chloride, P 100 98 - 107 02/15/2021 OW[place] mmol/L 11:23 AM CDT Bicarbonate, P 29 22 - 29 02/15/2021 [facility] mmol/L 11:23 AM CDT Anion Gap, P 10 7 - 15 02/15/2021 OWAT 11:23 AM CDT BUN (Blood Urea 12 6 - 21 02/15/2021 OW[place] Nitrogen), P mg/dL 11:23 AM CDT Creatinine 0.79 0.59 - 02/15/2021 OW[facility] 1.04 mg/dL 11:23 AM CDT eGFR-Black/Afric 83 >=60 02/15/2021 OW[facility] an Kazakh mL/min/BSA 11:23 AM CDT Comment: ----ADDITIONAL INFORMATION---- Estimated GFR calculated using the 2009 CKD_EPI creatinine equation. eGFR Non-Black/ 72 >=60 mL/min/BSA 02/15/2021 11:23 AM CDT OWAT Comment: ----ADDITIONAL INFORMATION---- Estimated GFR calculated using the 2009 CKD_EPI creatinine equation. Calcium, Total, P 9.6 8.8 - 10.2 mg/dL 02/15/2021 11:2 3 AM CDT OWAT Glucose, P 129 70 - 140 mg/dL 02/15/2021 11:23 AM CDT OW[facility] Protein, Total, P 7.2 6.3 - 7.9 g/dL 02/15/2021 11:23 AM CDT OW[facility] Albumin, P 4.3 3.5 - 5.0 g/dL 02/15/2021 11:23 AM CDT OWAT Aspartate Aminotransferase 24 8 - 43 U/L 02/15/2021 1 1:23 AM CDT OW[place] (AST), P Alkaline Phosphatase, P 82 35 - 104 U/L 02/15/2021 11 :23 AM CDT OW[facility] Alanine Aminotransferase (ALT), 19 7 - 45 U/L 05/12/2 021 11:23 AM CDT OWAT P Bilirubin, Total, P 0.5 <=1.2 mg/dL 02/15/2021 11:23 A M CDT OWAT Specimen Anatomical Collection Method Collection Time Receive d Time (Source) Location / / Volume Laterality Blood (Blood, 02/15/2021 8:46 AM 02/16/20 21 Venous) CDT 10:39 AM CDT Igor Horn P.A.-C. LAB BLOOD ADD-ON Performing Organization Address City/State/ZIP Code Phon e Number [facility]- [address] [place] [address] [place] [address] System in [place] [address] [facility] documented in this encounter Visit Diagnoses Diagnosis Hypertension Essential Primary Hypothyroidism Primary Hyperlipidemia Encounter For Screening For Cardiovascul ar Disorders documented in this encounter Care Teams Dresser Tender Relationship Specialty Start Date End Date Igor Horn P.A.-C. PCP - General 06/14/18 03/15/22 [address] [place] [address] documented as of this encounter
--- OUTSIDE RECORDS SUMMARY | 2022-07-10 08:18 | XMS_ITS | Encounter Summary ---
:1940 Author Organization [facility] Address [address] [place] [address] Care Team Providers Name Role Phone Apolonia Horn P.A.-C. Primary Care Provider [phone] Reason for Visit Reason Comments Communication Derm Encounter Details Date Type Department Care Team Description 05/10/2021 Clinical Department of Steve Horn (Derm) Communication [facility]pol[facility] [address] [address] [place], [place] [phone] [address] (Work) [phone] Social History Tobacco Use Types Packs/Day Years [...] More than 4 times per year 03/16/2022 hindu services? Do you belong to any clubs [...] this encounter Miscellaneous Notes Telephone Encounter - Hazel Subramanian - 05/11/2021 9:10 AM CDT Thank you! Patient contacted Addendum Note - Apolonia Horn P.A.-C. - 05/10/2021 5:01 PM CDT Addended by: APOLONIA HORN on: 05/10/2021 05:01 PM Modules accepted: Orders Telephone Encounter - Hazel Subramanian - 05/10/2021 3:14 PM CDT The patient would like to get a skin check. Would you mind placing an order for her to see Dermatology in [place]. Thank you. documented in this encounter Plan of Treatment Not on filedocumented as of this encounter Visit Diagnoses Diagnosis Rash - Primary documented in this encounter Care Teams Deli Associate Relationship Specialty Start Date End Date Apolonia Horn P.A.-C. PCP - General 06/14/18 03/15/22 [address] [place] [address] documented as of this encounter
--- OUTSIDE RECORDS SUMMARY | 2022-07-10 08:18 | XMS_ITS | Encounter Summary ---
:1940 Author Organization [facility] Address [address] [place] [address] Care Team Providers Name Role Phone Igor Horn P.A.-C. Primary Care Provider [phone] Reason for Visit Reason Comments Med Refill Encounter Details Date Type Department Care Team Description 07/04/2021 Refill Department of Family Medicine, Igor Ross P.A.-C. Med Refill [facility], in [address] [place] [address] [place] [address] [place] [address] [phone] Social History Tobacco Use Types Packs/Day Years [...] or relatives? How often do you attend denominational or More than 4 times per year 03/16/2022 confucianism services? Do you belong to any clubs or Yes 03/16/2022 organizations such as denominational groups, unions, fraternal or athletic groups, or [...] place to sleep or slept in a retirement (including now)? Education Answer Date Recorded What is the highest level of school Master's degree (e.g., M A, MS, 02/15/2021 you have completed or the highest Roland, MEd, HIGH SCHOOL GUIDANCE COUNSELOR, MARIE) degree you have received? Sex Assigned at Date Recorded Female 06/26/2021 8:35 AM CDT documented as of this encounter Miscellaneous Notes Telephone Encounter - Lashonda Samuel - 07/04/2021 1:48 PM CDT Images from the original note were not included. Nurse review: Unable to forward request to provider; Discrepancy; Verification Required. Directions on med list are incomplete Primary Provider: Igor Horn P.A.-C. Pharmacy: [facility] documented in this encounter Plan of Treatment Not on filedocumented as of this encounter Visit Diagnoses Not on filedocumented in this encounter Care Teams Bsa/Aml Compliance Officer Relationship Specialty Start Date End Date Igor Horn P.A.-C. PCP - General 06/14/18 03/15/22 [address] [place] [phone] documented as of this encounter
--- OUTSIDE RECORDS SUMMARY | 2022-07-10 08:18 | XMS_ITS | Encounter Summary ---
:1940 Author Organization [facility] Address [address] [place] [address] Care Team Providers Name Role Phone Igor Horn P.A.-C. Primary Care Provider [phone] Reason for Visit Reason Comments Med Refill Encounter Details Date Type Department Care Team Description 06/13/2021 Refill Department of Family Medicine, Igor Ross P.A.-C. Med Refill [facility], in [address] [place] [phone] [place] [address] [place] [address] [phone] Social History Tobacco Use Types Packs/Day Years [...] or relatives? How often do you attend sikhism or More than 4 times per year 03/16/2022 judaism services? Do you belong to any clubs or Yes 03/16/2022 organizations such as sikhism groups, unions, fraternal or athletic groups, or [...] have completed or the highest Roland, MEd, ABE TEACHER, MARIE) degree you have received? Sex Assigned at Date Recorded Female 06/26/2021 8:35 AM CDT documented as of this encounter Plan of Treatment Not on filedocumented as of this encounter Visit Diagnoses Not on filedocumented in this encounter Care Teams Brake Specialist Relationship Specialty Start Date End Date Igor Horn P.A.-C. PCP - General 06/14/18 03/15/22 [address] [place] [address] documented as of this encounter
--- OUTSIDE RECORDS SUMMARY | 2022-07-10 08:19 | XMS_ITS | Encounter Summary ---
:1940 Author Organization [facility] Address [address] [place] [address] Care Team Providers Name Role Phone Igor Horn P.A.-C. Primary Care Provider [phone] Encounter Details Date Type Department Care Team Description 04/19/2020 Orders Only Department of Family Anirudh Cronin Urinary Tract Medicine, Cl [facility], (Primar y Dx) Clinic, in [place] [address] [facility] [address] [place] [phone] Social History Tobacco Use Types Packs/Day Years [...] or relatives? How often do you attend catholic or More than 4 times per year 03/16/2022 shinto services? Do you belong to any clubs or Yes 03/16/2022 organizations such as catholic groups, unions, fraternal or athletic groups, or [...] encounter Visit Diagnoses Diagnosis Infection Urinary Tract - Primary documented in this encounter Care Teams Hatchery Helper Relationship Specialty Start Date End Date Igor Horn P.A.-C. PCP - General 06/14/18 03/15/22 [address] [place] [address] documented as of this encounter
--- OUTSIDE RECORDS SUMMARY | 2022-07-10 08:19 | XMS_ITS | Encounter Summary ---
:1940 Author Organization [facility] Address [address] [place] [address] Care Team Providers Name Role Phone Igor Horn P.A.-C. Primary Care Provider [phone] Encounter Details Date Type Department Care Team Description 04/19/2020 Clinical Communication Department of Igor Byrd [facility], [place] [facility], in [address] [address] [place], [place] [phone] [address] (Work) [phone] Social History Tobacco Use Types Packs/Day Years [...] More than 4 times per year 03/16/2022 buddhism services? Do you belong to any clubs or Yes 03/16/2022 organizations such as worship groups, unions, fraternal or athletic groups, or school groups? How often do you attend meetings of the More than 4 times [facility] year 03/16/2022 clubs or organizations [...] encounter Miscellaneous Notes Telephone Encounter - Lauren Payton L.P.N. - 04/19/2020 10:32 AM CDT Images from the original note were not included. SUBJECTIVE CHIEF COMPLAINT / REASON FOR CALL No chief complaint on file. PLAN The following information was provided: Anirudh Cronin M.B.B.S., M.D. You; [facility] Fbfb Nurse 19 minutes ago (10:11 AM) Urinalysis ordered. Message text Transferred to DOS to schedule. Information/Education: patient/caller able to teach back The following references were used: provider Dr. Cronin Telephone Encounter - Abiodun Dunn - 04/19/2020 9:08 AM CDT Reason for Communication: Nurse line calling in patient is requesting a urinalysis to check for a UTI patient has an odor. Current Can Nursing/Provider leave a detailed message: Did the patient refuse triage through Nurse line? (for symptom based concerns): Action Needed: Please call the patient back Name of Medication (if relevant): documented in this encounter Plan of Treatment Not on filedocumented as of this encounter Results (ABNORMAL) Urinalysis with Microscopic if Indicated (04/19/2020 1:52 PM CDT) P athologist Signature Source Midstream 04/19/2020 FB60 2:09 PM CDT Clarity Cloudy (A) Clear 04/19/2020 FB60 2:09 PM CDT Color Yellow 04/19/2020 FB60 2:09 PM CDT Comment: ----REFERENCE VALUE---- Colorless Yellow Dayanna Blood Trace (A) Negative 04/19/2020 2:09 PM CDT FB60 Nitrite Positive (A) Negative 04/19/2020 2:09 PM CDT FB60 Leukocyte Esterase Moderate (A) Negative 04/19/2020 2:09 PM CDT FB60 Protein Negative mg/dL 04/19/2020 2:09 PM CDT FB60 Comment: ----REFERENCE VALUE---- Negative Trace Glucose Negative Negative mg/dL 04/19/2020 2:09 PM CDT FB 60 Ketones, QI(U) Negative Negative mg/dL 04/19/2020 2:09 PM C DT FB60 Bilirubin Negative Negative 04/19/2020 2:09 PM CDT FB60 pH 6.5 5.0 - 8.0 04/19/2020 2:09 PM CDT FB60 Specific [place] 1.020 1.001 - 1.035 04/19/2020 2:09 PM CDT FB60 Urobilinogen 0.2 0.2 - 1.0 mg/dL 04/19/2020 2:09 PM CD T FB60 Specimen Anatomical Collection Method Collection Time Receive d Time (Source) Location / / Volume Laterality Urine (Urine, 04/19/2020 1:52 PM 04/19/20 2:01 Clean Catch) CDT PM CDT Anirudh Nevarez M.D. LAB URINE ORDERABLES Performing Organization Address City/State/ZIP Code Phon e Number [facility]- [address] [place] [address] [facility] [place] [address] System in [address] documented in this encounter Visit Diagnoses Diagnosis Dysuria - Primary documented in this encounter Care Teams Trailer Body Assembler Relationship Specialty Start Date End Date Igor Horn P.A.-C. PCP - General 06/14/18 03/15/22 [address] [place] [address] documented as of this encounter
--- OUTSIDE RECORDS SUMMARY | 2022-07-10 08:19 | XMS_ITS | Encounter Summary ---
:1940 Author Organization [facility] Address [address] [place] [address] Care Team Providers Name Role Phone Igor Horn P.A.-C. Primary Care Provider [phone] Encounter Details Date Type Department Care Team Description 03/14/2020 Clinical Communication Department of Igor Byrd [facility], [place] [facility], in [address] [address] [place], [place] [phone] (Work) [phone] Social History Tobacco Use Types Packs/Day Years [...] More than 4 times per year 03/16/2022 restoration services? Do you belong to any clubs or Yes 03/16/2022 organizations such as yazdanism groups, unions, fraternal or athletic groups, or school groups? How often do you attend meetings of the More than 4 times [facility] year 03/16/2022 clubs or [...] this encounter Miscellaneous Notes Telephone Encounter - Karla Martinez - 03/14/2020 4:24 PM CDT In the past 30 days have you had a swab for COVID that tested positive? no Route reply to: Scheduling Contact Number: [phone] documented in this encounter Plan of Treatment Not on filedocumented as of this encounter Visit Diagnoses Not on filedocumented in this encounter Care Teams Branch Banker Relationship Specialty Start Date End Date Igor Horn P.A.-C. PCP - General 06/14/18 03/15/22 [address] [place] [address] documented as of this encounter
--- OUTSIDE RECORDS SUMMARY | 2022-07-10 08:19 | XMS_ITS | Encounter Summary ---
:1940 Author Organization [facility] Address [address] [place] [address] Care Team Providers Name Role Phone Igor Horn P.A.-C. Primary Care Provider [phone] Reason for Visit Reason Comments MELANIA Nurse Line Triage Encounter Details Date Type Department Care Team Description 04/19/2020 [facility]; Medicine, Misha Rios Triage Clinic, [facility] [phone] [place] ([facility]) [address] [place] [address] Social History Tobacco Use Types Packs/Day Years [...] this encounter Miscellaneous Notes Telephone Encounter - Tasia Solomon R.N. - 04/19/2020 9:11 AM CDT COVID-19 Nurse Line Screening ASSESSMENT COVID 19 Screening Have you had close contact with a person who has a LABORATORY CONFIRMED case of COVID-19?: No - Continue screening. In the last 48 hours have you had any of the following symptoms?: No - Complete screening. Consider alternative diagnosis. We are not currently testing or isolating patients or visitors who have no symptoms and no close contact. PLAN Endpoint recommendation: Screening negative, testing not indicated at this time Care Points provided: STANDARD PRECAUTIONS FOR ALL PATIENTS: Wash hands often with soap and water for at least 20 seconds, especially after blowing your nose, coughing, sneezing, or having been in a public place. If soap and water aren't available, use a hand inspector welded parts that contains at least 60% alcohol. Avoid [...] and new symptoms develop please contact your provider. Educational Resource: https://www.cdc.gov/coronavirus/2019-ncov/widjnvn-ktsbgnx-wdex/index.html SELF CARE FOR ALL PATIENTS: Take breaks from watching, reading, or listening to news stories. Make time to unwind. Try to do some other activities you enjoy. Connect with others. Be creative in keepingconnected with loved ones, especially those at high risk. Try healthy coping strategies such as meditation, relaxation, exercise, healthy eating habits, and avoid alcohol and drugs. Education: patient/caregiver Patient/caregiver able to teach back Patient agreeable to plan of care: Yes The following references were used: [facility] novel coronavirus (COVID- 19) resources documented in this encounter Plan of Treatment Not on filedocumented as of this encounter Visit Diagnoses Not on filedocumented in this encounter Care Teams Spine Surgeon Relationship Specialty Start Date End Date Igor Horn P.A.-C. PCP - General 06/14/18 03/15/22 [address] [place] [address] documented as of this encounter
--- OUTSIDE RECORDS SUMMARY | 2022-07-10 08:19 | XMS_ITS | Encounter Summary ---
:[address] [facility] Address [address] [place] [address] Care Team Providers Name Role Phone Igor Horn P.A.-C. 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 [facility] [address] [place] [phone] Referral ID Status Reason Start Date Expiration Date Visits Requ ested Visits Authorized [id number] Closed 04/07/2019 04/06/2020 1 1 Encounter Details Date Type Department Care Team Description 03/23/2020 Office Visit Department of Mervat Guy Keratosis Actinic (Primary Dx); Dermatology in A, MISA, C.N.P., Malignant Neoplasm Of Forearm Squamous Cell Carcinoma Right; [place], [place] D.N.P. Keratosis Seborrheic Inflamed 200 [facility] 200 [place] [address] [phone] Social History Tobacco Use Types Packs/Day Years [...] or relatives? How often do you attend uatsdin or More than 4 times per year 03/16/2022 tenriism services? Do you belong to any clubs or Yes 03/16/2022 organizations such as uatsdin groups, unions, fraternal or athletic groups, or [...] as of this encounter Consult Notes Mervat Guy, MISA, C.N.P., M.S.N. - 03/23/2020 11:20 AM CDT REFERRED BY Ana Quezada M.D. CHIEF COMPLAINT/REASON FOR VISIT History of nonmelanoma skin cancer HISTORY OF PRESENT ILLNESS Ms. Ainsley Cedeño is a pleasant 79 y.o. female who presents today for a full skin cancer screening examination. The patient has a history of nonmelanoma skin cancer. Concerns today include rough scaly brown spots along the bra line. These are bothersome to her. She has a similar area on the right side of her nose that she would like evaluated. Allergies Allergen Reactions ??? Animal Dander Shortness of breath ??? Cat Dander Other (see comments) No reaction noted in Cerner ??? Codeine Other (see comments) No reaction noted in Cerner ??? House Dust Mite Other (see comments) No reaction noted in Cerner ??? Hydrocodone GI intolerance ??? Prochlorperazine Other (see comments) No reaction noted in Cerner PAST MEDICAL HISTORY 1. Basal cell carcinoma, left upper back, 1996 2. Metatypical basal cell carcinoma, left forehead, 1996 3. Squamous cell carcinoma in situ, right forearm, 2001 FAMILY HISTORY Negative for skin cancer PHYSICAL EXAM General: Awake, alert, in no acute distress, and with appropriate affect. Eyes: No scleral injection or icterus. No eyelid abnormalities. Lymph: No lower extremity edema. Skin: I have examined the scalp, face, neck, chest, abdomen, back, bilateral upper extremities, and bilateral lower extremities. Torres skin type II. Evidence of dermatoheliosis in sun-exposed areas. On the face, trunk, extremities are flesh-colored to waxy brown, stuck on appearing papules. On the trunk and extremities are red dome-shaped papules. On the left forehead in the left lower eyelid are red macules with overlying adherent scale. IMPRESSION/REPORT/PLAN #1 Skin cancer screening examination #2 Dermatoheliosis #3 History of nonmelanoma skin cancer Sun protection and sun avoidance were reviewed with the patient. Educational materials were providedregarding skin self-examination, the warning signs and symptoms of skin cancer, and the proper use of sunscreens. I would recommend a full skin cancer screening examination with an appropriately trained clinician every year. #4 Inflamed seborrheic keratosis A total of 9 seborrheic keratoses were treated with liquid nitrogen cryotherapy involving the right upper cheek as well as the back. After explaining the procedure, discussing the associated risks, benefits, and alternatives, and obtaining verbal informed consent, the lesion(s) underwent treatment with liquid nitrogen cryotherapy inthe standard fashion. Wound care was discussed. Patient offered educational materials. #5 Actinic keratosis A total of 2 actinic keratosis were treated with liquid nitrogen. Location: Left forehead and left lower eyelid. After explaining the procedure, discussing the associated risks, benefits, and alternatives, and obtaining verbal informed consent, the lesion(s) underwent treatment with liquid nitrogen cryotherapy inthe standard fashion. Wound care was discussed. #6 Seborrheic keratosis #7 Salmeron angiomas The benign nature of the skin lesion(s) was discussed with the patient. No treatment is required. I recommend continued observation. Should symptoms or changes develop related to this condition, I would recommend a return visit for reassessment. PATIENT EDUCATION Ready to learn. No apparent learning barriers were identified. Learning preferences include listening. Explained diagnosis and treatment plan; patient/guardian of patient expressed understanding of thecontent. documented in this encounter Plan of Treatment Not on filedocumented as of this encounter Visit Diagnoses Diagnosis Keratosis Actinic - Primary Malignant Neoplasm Of Forearm Squamous C ell Carcinoma Right Keratosis Seborrheic Inflamed documented in this encounter Care Teams Fire Fighters Dispatcher Relationship Specialty Start Date End Date Igor Horn P.A.-C. PCP - General 06/14/18 03/15/22 [address] [place] [phone] documented as of this encounter
--- OUTSIDE RECORDS SUMMARY | 2022-07-10 08:19 | XMS_ITS | Encounter Summary ---
:1940 Author Organization [facility] Address [address] [place] [address] Care Team Providers Name Role Phone Igor Horn P.A.-C. Primary Care Provider [phone] Reason for Visit Reason Comments COVID Nurse Line Encounter Details Date Type Department Care Team Description 02/15/2020 Clinical Communication Department of LUIS Casas Nurse Line Dermatology in Provider [place], [place] [address] [place] [address] Social History Tobacco Use Types Packs/Day Years [...] or relatives? How often do you attend yarsani or More than 4 times per year 03/16/2022 restorationist services? Do you belong to any clubs or Yes 03/16/2022 organizations such as yarsani groups, unions, fraternal or athletic groups, or school groups? How often do you attend meetings of the More than 4 times pe melanie year 03/16/2022 clubs or organizations you belong [...] school Master's degree (e.g., M A, MS, 03/23/2019 you have completed or the highest Roland, MEd, MANAGER [employer], MARIE) degree you have received? Sex Assigned at Date Recorded Female 06/26/2021 8:35 AM CDT documented as of this encounter Miscellaneous Notes Telephone Encounter - Amber Luther - 02/15/2020 4:00 PM CDT 1. In the past 14 days, have you been tested for COVID-19 with a positive or pending result? no 2. In the past 14 days, do you, anyone in the household, or anyone you have had prolonged exposure have (any of the following)? a. Fever = 38.0 C (100.5 F) lasting 24 hours? no b. New symptoms (Specifically: cough, shortness of breath, respiratory distress, sore throat, diarrhea, chills, myalgia's (muscle aches), loss of smell, or change or loss of taste sensation)? no c. Had close contact with persons who are under quarantine or isolation for COVID? no d. Had close contact with a patient with known or possible COVID-19? no Route reply to: Scheduling Contact Number: {Dept Phone Number documented in this encounter Plan of Treatment Not on filedocumented as of this encounter Visit Diagnoses Not on filedocumented in this encounter Care Teams Airplane Cabin Attendant Relationship Specialty Start Date End Date Igor Horn P.A.-C. PCP - General 06/14/18 03/15/[address] [place] [phone] documented as of this encounter
--- OUTSIDE RECORDS SUMMARY | 2022-07-10 08:19 | XMS_ITS | Encounter Summary ---
:1940 Author Organization [facility] Address [address] [place] [address] Care Team Providers Name Role Phone Igor Horn P.A.-C. Primary Care Provider [phone] Reason for Visit Reason Comments Medication Problem Encounter Details Date Type Department Care Team Description 04/19/2020 Clinical Communication Department of Ranulfo Cronin [facility], [facility] in [address] [address] [place], [place] [phone] (Work) [phone] Social History Tobacco Use Types Packs/Day Years [...] or relatives? How often do you attend sabianism or More than 4 times per year 03/16/2022 yarsanism services? Do you belong to any clubs or Yes 03/16/2022 organizations such as sabianism groups, unions, fraternal or athletic groups, or [...] place to sleep or slept in a chcf (including now)? Education Answer Date Recorded What is the highest level of Professional school degree (e.g ., , 02/19/2020 school you have completed or the DDS, DVM, DEBORAH) highest degree you have received? Sex Assigned at Date Recorded Female 06/26/2021 8:35 AM CDT documented as of this encounter Miscellaneous Notes Telephone Encounter - Rhona Chatman, R.N. - 04/20/2020 1:22 PM CDT SUBJECTIVE CHIEF COMPLAINT / REASON FOR CALL Medication Problem Information Discussed Patient calling regarding getting antibiotic and is at the pharmacy right now and would like to get it before the pharmacy closes. Rn Telehealth called and spoke with pharmacist who stated there was a flag on the antibiotic and patient's lisinopril for concern of increasing potassium levels. Rn Telehealth spoke with patient's PCP regarding the above concern who stated that since the patient is only taking the antibiotic for 3 days, this should not be of concern. Rn Telehealth notified both pharmacist and patient of PCP's response. PLAN Disposition/Recommendation: Patient to poultry picker Bactrim that was previously prescribed Information/Education: patient/caller able to teach back Caller agreeable to plan of care: yes The following references were used: provider Igor Horn Telephone Encounter - Karla Martinez - 04/19/2020 3:17 PM CDT Reason for Communication: Lashonda from [facility] calling, rx for Bactrim has drug interactions with patients Lisinopril, looking for an alternative Current Can Nursing/Provider leave a detailed message: Did the patient refuse triage through Nurse line? (for symptom based concerns): Action Needed: Name of Medication (if relevant): documented in this encounter Plan of Treatment Not on filedocumented as of this encounter Visit Diagnoses Not on filedocumented in this encounter Care Teams Logistics Planning Engineer Relationship Specialty Start Date End Date Igor Horn P.A.-C. PCP - General 06/14/18 03/15/22 [address] [place] [address] documented as of this encounter
--- OUTSIDE RECORDS SUMMARY | 2022-07-10 08:19 | XMS_ITS | Encounter Summary ---
:1940 Author Organization [facility] Address [address] [place] [address] Care Team Providers Name Role Phone Igor Horn P.A.-C. Primary Care Provider [phone] Reason for Visit Reason Comments COVID Inquiry Encounter Details Date Type Department Care Team Description 03/22/2020 Clinical Communication Department of Mervat Guy COVID Inquiry Dermatology in , INSPECTOR WATCH TRAIN, C.N.P.[place], [place] D.N.P. [address] [facility] 200 [place] [phone] [phone] Social History Tobacco Use Types Packs/Day Years [...] many times do you More than three biis es a week 03/16/2022 talk on the phone with family, friends, or neighbors? How often do you get together with friends Once a week 03/16/2022 or relatives? How often do you attend yazidi or More than 4 times per year 03/16/2022 baptist services? Do you belong to any clubs or Yes 03/16/2022 organizations such as yazidi groups, unions, fraternal or athletic groups, or [...] this encounter Miscellaneous Notes Telephone Encounter - Tuyet Chairez Angélica - 03/22/2020 12:52 PM CDT (Note for [facility] locations only: If the patient states they are asking for testing because attended a protest, serra, community cleanup or other mass gathering in the last 7 days and is asking for testing, complete the below questions and transfer to the COVID Nurse Line). 1. Do you have a pending COVID test because you had symptoms or exposure to someone with COVID or you have tested positive for COVID in the last 30 days? no 2. In the past 14 days, do you, anyone in the household, or anyone you have had prolonged exposure have any of the following? a. Fever greater than or equal to 37.8 C (100.0 F)? no b. New symptoms (Specifically: headache, cough, shortness of breath, respiratory distress, sore throat, diarrhea, nausea, vomiting, chills and repeated shaking with chills, myalgia's (muscle aches), loss of smell, or change or loss of taste sensation)? no c. Had close contact with a patient with known or possible COVID-19 in the last 14 days? no Route reply to: van lubin desk Scheduling Contact Number: [phone] documented in this encounter Plan of Treatment Not on filedocumented as of this encounter Visit Diagnoses Not on filedocumented in this encounter Care Teams Glass Science Engineer Relationship Specialty Start Date End Date Igor Horn P.A.-C. PCP - General 06/14/18 03/15/[address] [place] [phone] documented as of this encounter
--- OUTSIDE RECORDS SUMMARY | 2022-07-10 08:19 | XMS_ITS | Encounter Summary ---
:1940 Author Organization [facility] Address [address] [place] [address] Care Team Providers Name Role Phone Igor Horn P.A.-C. Primary Care Provider [phone] Reason for Referral Outpatient (Routine) - Closed Specialty Diagnoses / Procedures Referred By Contact Refer red To Contact Diagnoses Screening Mammogram Breast Cancer Igor Horn P.A.-C. [facility] Procedures BI Breast Screening Bilateral with Tomosynthesis [address] [place] [address] Referral ID Status Reason Start Date Expiration Date Visits Requ ested Visits Authorized [id number] Closed 03/14/2020 03/14/2021 1 1 Reason for Visit Outpatient (Routine) - Closed Specialty Diagnoses / Procedures Referred By Contact Refer red To Contact Diagnoses Screening Mammogram Breast Cancer Igor Horn P.A.-C. [facility] Procedures BI Breast Screening Bilateral with Tomosynthesis [address] [place] [address] Referral ID Status Reason Start Date Expiration Date Visits Requ ested Visits Authorized [id number] Closed 03/14/2020 03/14/2021 1 1 Encounter Details Date Type Department Care Team Description 04/11/2020 Hospital Encounter Department of Merlyn Horn Mammogram Radiology in [facility] Breast Cancer [place], [place] [address] [place], [place] [phone] Social History Tobacco Use Types Packs/Day Years [...] or relatives? How often do you attend episcopalian or More than 4 times per year 03/16/2022 mormon services? Do you belong to any clubs or Yes 03/16/2022 organizations such as episcopalian groups, unions, fraternal or athletic groups, or [...] place to sleep or slept in a prison (including now)? Education Answer Date Recorded What [...] 2 in AM 1 capsule in PM albuterol (Ventolin HFA) Inhale 1 puff 1 Inhaler 11 12/28/1912/28/2020 inhaler every 4 (four) hours as needed for wheezing. celecoxib (CeleBREX) 200 mg Take 1 capsule 90 capsule 3 02/0502/06/2021 capsule (200 mg total) by mouth daily. With a meal. fluticasone Inhale 1 puff 3 each 11 12/28/2019 12/28/2020 propion-salmeteroL (Advair daily. Diskus) 100-50 [...] and groin. documented as of this encounter Plan of Treatment Not on filedocumented as of this encounter Procedures Procedure Name Priority Date/Time Associated Comments Diagnosis BI BREAST SCREENING RAD - Routine 04/11/2020 1:50 Screening Resu lts for BILATERAL WITH (most inpatients PM CDT Mammogram Breast this procedure TOMOSYNTHESIS and all Cancer are in the outpatients) results section. documented in this encounter Results BI Breast Screening Bilateral with Tomosynthesis (04/11/2020 1:50 PM CDT) Anatomical Region Laterality Modality Breast, Breast Imaging [facility] LOS, Breast Imaging ARZ LOS, Haylee st Bilateral Mammography Imaging FLA LOS Specimen (Source) Anatomical Collection Method Collection Time Re ceived Time Location / / Volume Laterality 04/11/2020 1:52 PM CDT Impressions 04/11/2020 1:53 PM CDT Negative. RECOMMENDATION: ??Annual Screening Mammo gram ASSESSMENT: ??BI-RADS: 1: Negative. Narrative 04/11/2020 1:53 PM CDT EXAM: ??BI BREAST SCREENING BILATERAL WITH TOMOSYNTHESIS Current study was evaluated with a Instant APIu Stimatix GI Aided Detection (CAD) system. INDICATION: ??Screening mammogram. COMPARISON: ??Prior exam(s) were availab le and reviewed for comparison. DENSITY: ??c. The breast(s) are heteroge neously dense, which may obscure small masses. FINDINGS: ??No mammographic findings of malignancy. Procedure Note Abhi Hernandez M.D. - 04/11/2020Forma tting of this note might be different from the original. EXAM: BI BREAST SCREENING BILATERAL WITH TOMOSYNTHESIS Current study was evaluated with a Instant APIu Stimatix GI Aided Detection (CAD) system. INDICATION: Screening mammogram. COMPARISON: Prior exam(s) were available and reviewed for comparison. DENSITY: c. The breast(s) are heterogene ously dense, which may obscure small masses. FINDINGS: No mammographic findings of ma lignancy. IMPRESSION: Negative. RECOMMENDATION: Annual Screening Mammogr am ASSESSMENT: BI-RADS: 1: Negative. Igor Horn P.A.-C. IMG BI PROCEDURES documented in this encounter Visit Diagnoses Diagnosis Screening Mammogram Breast Cancer documented in this encounter Care Teams Lead Customer Service Representative Relationship Specialty Start Date End Date Igor Horn P.A.-C. PCP - General 06/14/18 03/15/22 [address] [facility] [place] [phone] documented as of this encounter
--- OUTSIDE RECORDS SUMMARY | 2022-07-10 08:19 | XMS_ITS | Encounter Summary ---
:1940 Author Organization [facility] Address [address] [place] [address] Care Team Providers Name Role Phone Igor Horn P.A.-C. Primary Care Provider [phone] Encounter Details Date Type Department Care Team Description 02/18/2020 Hospital Encounter Department of Justina, Hyperlip idemia; Laboratory Medicine Reyna Costa Hypothyroidism Primary; in [place], [address] [place] [address] Hypertension Essential Primary [place], [place] [address] [facility] [address] [place], [place] [phone] [address] (Work) [phone] Social History Tobacco Use Types Packs/Day Years [...] place to sleep or slept in a residential (including now)? Education Answer Date Recorded What is the highest level of school Master's degree (e.g., Giuliano Conteh, MS, 03/23/2019 you have completed or the highest Roland, MEd, LASERIST, MARIE) degree you have received? Sex Assigned [...] mg Take 1 capsule 90 capsule 3 0506/201902/24/2020 capsule (200 mg total) by mouth daily. [...] Procedure Name Priority Date/Time Associated Comments Diagnosis LIPID PANEL, S Routine 02/18/2020 9:05 AM Hyperlipidemi a Results for this CDT Hypothyroidism procedure are in Primary the results Hypertension section. Essential Primary THYROID-STIMULATING Routine 02/18/2020 9:05 AM Hyperlipi demia Results for this HORMONE-SENSITIVE CDT Hypothyroidism procedur e are in (S-TSH) Primary the results Hypertension section. Essential Primary COMPREHENSIVE Routine 02/18/2020 9:05 AM Hyperlipidemi a Results for this METABOLIC PANEL, S/P CDT Hypothyroidism proce dure are in Primary the results Hypertension section. Essential Primary documented in this encounter Results S-TSH (Thyroid-Stimulating Hormone - Sensitive) (02/18/2020 9:05 AM CDT) P athologist Signature TSH, Sensitive 1.9 0.3 - 4.2 02/18/2020 [facility] mIU/L 11:01 AM CDT Comment: Biotin has been identified by the lopez ruiz as a potential interfering substance. ??Higher concentr ations of biotin may be found in multivitamins, hair/nail supple ments, and workout supplements. ??If the result does not ma [facility] clinical observations, repeat testing after patient refrains fr om the use of supplements for at least 12 hours. Specimen Anatomical Collection Method Collection Time Receive d Time (Source) Location / / Volume Laterality Blood (Blood, 02/18/2020 9:05 AM 02/18/20 20 Venous) CDT 10:30 AM CDT Igor Horn P.A.-C. LAB BLOOD ADD-ON Performing Organization Address City/State/ZIP Code Phon e Number [facility]- [address] [place] [address] [facility] [place] [address] System in [place] [address] (ABNORMAL) Lipid Panel (02/18/2020 9:05 AM CDT) P athologist Signature Cholesterol, 159 mg/dL 02/18/2020 [facility] Total 11:02 AM CDT Comment: ----REFERENCE VALUE---- Desirable: < 200 Borderline high: 200 - 239 High: > or = 240 Triglycerides 153 (H) mg/dL 02/18/2020 11:02 AM CDT OW AT Comment: ----REFERENCE VALUE---- Normal: <150 Borderline high: 150-199 High: 200-499 Very high: > or =500 Cholesterol, HDL 39 (L) >=50 mg/dL 02/18/2020 11:02 AM CD T [facility] Calculated LDL 89 mg/dL 02/18/2020 11:02 AM CDT O EBENEZER Comment: ----REFERENCE VALUE---- Desirable: <100 Above Desirable: 100-129 Borderline high: 130-159 High: 160-189 Very high: > or =190 Cholesterol, Non-HDL, Calculated 120 mg/dL 020 11:02 AM CDT [facility] Comment: ----REFERENCE VALUE---- Desirable: <130 Above Desirable: 130-159 Borderline high: 160-189 High: 190-219 Very high: > or =220 Specimen Anatomical Collection Method Collection Time Receive d Time (Source) Location / / Volume Laterality Blood (Blood, 02/18/2020 9:05 AM 02/18/20 20 Venous) CDT 10:29 AM CDT Igor Horn P.A.-C. LAB BLOOD ADD-ON Performing Organization Address City/State/ZIP Code Phon e Number [facility]- [address] [place] [address] [facility] [place] [address] System in [place] [address] Comprehensive Metabolic Panel (02/18/2020 9:05 AM CDT) P athologist Signature Potassium, P 4.2 3.6 - 5.2 02/18/2020 [facility] mmol/L 11:02 AM CDT Sodium, P 139 135 - 145 02/18/2020 [facility] mmol/L 11:02 AM CDT Chloride, P 104 98 - 107 02/18/2020 [facility] mmol/L 11:02 AM CDT Bicarbonate, P 25 22 - 29 02/18/2020 [facility] mmol/L 11:02 AM CDT Anion Gap, P 10 7 - 15 02/18/2020 [facility] 11:02 AM CDT BUN (Blood Urea 16 6 - 21 02/18/2020 [facility] Nitrogen), P mg/dL 11:02 AM CDT Creatinine 0.75 0.59 - 02/18/2020 [facility] 1.04 mg/dL 11:02 AM CDT eGFR-Black/Afric 89 >=60 02/18/2020 [facility] an Citizen Of [place] mL/min/BSA 11:02 AM CDT Comment: ----ADDITIONAL INFORMATION---- Estimated GFR calculated using the 2009 CKD_EPI creatinine equation. eGFR Non-Black/ 77 >=60 mL/min/BSA 02/18/2020 11:02 AM CDT [facility] Comment: ----ADDITIONAL INFORMATION---- Estimated GFR calculated using the 2009 CKD_EPI creatinine equation. Calcium, Total, P 9.9 8.8 - 10.2 mg/dL 02/18/2020 11:0 2 AM CDT [facility] Glucose, P 119 70 - 140 mg/dL 02/18/2020 11:02 AM CDT [facility] Protein, Total, P 7.7 6.3 - 7.9 g/dL 02/18/2020 11:02 AM CDT [facility] Albumin, P 4.6 3.5 - 5.0 g/dL 02/18/2020 11:02 AM CDT [facility] Aspartate Aminotransferase 20 8 - 43 U/L 02/18/2020 1 1:02 AM CDT [facility] (AST), P Alkaline Phosphatase, P 90 35 - 104 U/L 02/18/2020 11 :02 AM CDT [facility] Alanine Aminotransferase (ALT), 19 7 - 45 U/L 020 11:02 AM CDT OW[facility] P Bilirubin, Total, P 0.5 <=1.2 mg/dL 02/18/2020 11:02 A M CDT [facility] Specimen Anatomical Collection Method Collection Time Receive d Time (Source) Location / / Volume Laterality Blood (Blood, 02/18/2020 9:05 AM 02/18/20 20 Venous) CDT 10:29 AM CDT Igor Horn P.A.-C. LAB BLOOD ADD-ON Performing Organization Address City/State/ZIP Code Phon e Number [facility]- [address] [place] [address] [place] [address] System in [place] [address] documented in this encounter Visit Diagnoses Diagnosis Hyperlipidemia Hypothyroidism Primary Hypertension Essential Primary documented in this encounter Care Teams Plisse Machine Operator Helper Relationship Specialty Start Date End Date Igor Horn P.A.-C. PCP - General 06/14/18 03/15/22 [address] [place] [phone] documented as of this encounter
--- OUTSIDE RECORDS SUMMARY | 2022-07-10 08:19 | XMS_ITS | Encounter Summary ---
:1940 Author Organization [facility] Address [address] [place] [address] Care Team Providers Name Role Phone Igor Horn P.A.-C. Primary Care Provider [phone] Encounter Details Date Type Department Care Team Description 04/19/2020 Hospital Encounter Department of Laboratory Anirudh Cronin I., Dysuria Medicine in [place] Stone M.D. [place] [address] [facility] [address] [place] [address] [phone] (Wo rk) Social History Tobacco Use Types [...] or relatives? How often do you attend buddhism or More than 4 times per year 03/16/2022 yazidism services? Do you belong to any clubs or Yes 03/16/2022 organizations such as buddhism groups, unions, fraternal or athletic groups, or [...] Take 1 tablet by 90 tablet 3 05/0 03/202002/06/2021 LEVOTHROID) 75 mcg tablet mouth once [...] tablet (10 mg total) by mouth daily. sulfamethoxazole-trimethopri Take 1 tablet by 6 tablet 0 0 04/19/2020 05/12/2020 m (BACTRIM DS) 800-160 mg mouth 2 (two) per tabletIndications: times a day. Infection Urinary Tract triamcinolone (KENALOG) 0.1 Apply to 30 g 0 12/28/19 20 02/15/2021 % cream affected area 1-2 times daily as needed. Avoid face and groin. documented as of this encounter Miscellaneous Notes Result Encounter Note - Fide Durant L.P.N. - 04/19/2020 3:01 PM CDT Name of person contacted: Patient Relationship to patient: Not applicable Call back number: [phone] Cotton Roll Packer: Not applicable Information provided: Patient notified of results and Dr. Cronin's recommendations. Patient will picker operator and begin Bactrim. service person/patient received and understood education/information provided: Yes service person/patient agreed to the Plan of Care: Yes Result Encounter Note - Anirudh Cronin M.B.B.S., M.D. - 04/19/2020 2:50 PM CDT Urinalysis indicates UTI. Will treat this with 3 days of Bactrim. Urine culture is pending as well. I have sent a prescription for Bactrim to her pharmacy. documented in this encounter Plan of Treatment Not on filedocumented as of this encounter Procedures Procedure Name Priority Date/Time Associated Comments Diagnosis URINALYSIS WITH Routine 04/19/2020 1:52 PM Dysuria Result s for this MICROSCOPIC IF CDT procedure are in INDICATED, U the results section. MT URINALYSIS AUTO WO Routine 04/19/2020 1:52 PM Results for this MICRO CDT procedure are i n the results section. documented in this encounter Results (ABNORMAL) Microscopic Manual (04/19/2020 1:52 PM CDT) Analysis Performed At Patho logist Time Signature White Blood 21-30 (A) /hpf 04/19/2020 FB60 Cells 2:22 PM CDT Comment: ----REFERENCE VALUE---- Males: 0-3 Females: 0-10 Unknown: 0-10 Red Blood Cells Occ-2 0 - 2 /hpf 04/19/2020 2:22 PM CDT FB60 Bacteria Present (A) None Seen 04/19/2020 2:22 PM CDT FB60 Specimen Anatomical Collection Method Collection Time Receive d Time (Source) Location / / Volume Laterality Urine 04/19/2020 1:52 PM 0 2:01 CDT PM CDT Anirudh Nevarez M.D. LAB URINE ORDERABLES Performing Organization Address City/State/ZIP Code Phon e Number [facility]- [address] [place] [address] [facility] [place] [address] System in [place] [address] (ABNORMAL) Urinalysis with Microscopic if Indicated (04/19/2020 1:52 PM CDT) athologist Signature Source Midstream 04/19/2020 FB60 2:09 [...] 8.0 04/19/2020 2:09 PM CDT FB60 Specific Rodman 1.020 1.001 - 1.035 04/19/2020 2:09 PM CDT FB60 Urobilinogen 0.2 0.2 - 1.0 mg/dL 04/19/2020 2:09 PM CD T FB60 Specimen Anatomical Collection Method Collection Time Receive d Time (Source) Location / / Volume Laterality Urine (Urine, 04/19/2020 1:52 PM 04/19/20 20 2:01 Clean Catch) CDT PM CDT Anirudh Nevarez M.D. LAB URINE ORDERABLES Performing Organization Address City/State/ZIP Code Phon e Number [address] [place] [address] [facility] [place] [address] System in [address] documented in this encounter Visit Diagnoses Diagnosis Dysuria documented in this encounter Care Teams Chair Installer Relationship Specialty Start Date End Date Igor Horn P.A.-C. PCP - General 06/14/18 03/15/22 [address] [place] [phone] documented as of this encounter
--- OUTSIDE RECORDS SUMMARY | 2022-07-10 08:19 | XMS_ITS | Encounter Summary ---
:1940 Author Organization [facility] Address [address] [place] [address] Care Team Providers Name Role Phone Igor Horn P.A.-C. Primary Care Provider [phone] Reason for Referral Outpatient (Routine) - Closed Specialty Diagnoses / Procedures Referred By Contact Refer red To Contact Family Medicine Igor Horn P. A.-C. [facility] [address] [phone] Referral ID Status Reason Start Date Expiration Date Visits Requ ested Visits Authorized [id number] Closed 02/24/2020 02/23/2021 1 1 Reason for Visit Reason Comments Annual Exam Labs done 02-18-20 Outpatient (Routine) - Closed Specialty Diagnoses / Procedures Referred By Contact Refer red To Contact Family Medicine Igor Horn P. A.-C. [facility] [address] [phone] Referral ID Status Reason Start Date Expiration Date Visits Requ ested Visits Authorized [id number] Closed 02/12/2019 02/12/2020 1 1 Encounter Details Date Type Department Care Team Description 02/24/2020 Comprehensive Visit Department of Jacey Horn Essential Primary (Primary Dx); Family MedicineIgor, Asthma Intr insic (HCC); [facility], P.A.-C. Bundle Branch Block Left; in [place], [address] Rhinitis Allergic; [place] Ankur, JOHN Hypothyroidism Primary; [address] [address] Hyperlipidemia; [facility] [place] [phone] Encounter For Screening For Cardiovascular Disorders [id number] (Work) [phone] Social History Tobacco Use Types Packs/Day Years [...] Sign Reading Time Taken Comments Blood Pressure 126/71 02/24/2020 2:01 PM CDT Pulse 82 02/24/2020 1:52 PM CDT Temperature 36.6 ??C (97.9 ??F) 02/24/2020 1:52 PM CDT Respiratory Rate 20 02/24/2020 1:52 PM CDT Oxygen Saturation - - Inhaled Oxygen Concentration - - Weight 95.6 kg (210 lb 12.2 oz) 02/24/2020 1:52 PM CDT Height 163 cm (5' 4.17) 02/24/2020 1:52 PM CDT Body Mass Index 35.98 02/24/2020 1:52 PM CDT documented in this encounter H&P Notes Igor Horn P.A.-C. - 02/24/2020 2:00 PM CDT CHIEF COMPLAINT / REASON FOR VISIT Ainsley BabcockRen is a 79 y.o. female who presents for evaluation of Annual Exam (Labs done 02-18-20). HISTORY OF PRESENT ILLNESS Ainsley presents today for review of her medical problems. Overall she is doing very well. She has lost considerable amount of weight due to working on her diet and exercise. I congratulated her on this.Her asthma has been well controlled her blood pressure is well controlled her lipids are well controlled and her hypothyroidism is well controlled. She has no other concerns she feels excellent now that she has lost some weight. Her back and knee have been doing much better PAST MEDICAL HISTORY: Patient Active Problem List [...] EXTRACTION AND INSERTION OF INTRAOCULAR LENS Bilateral 2003 XCAPSL CTRC RMVL INSJ LENS PROSTH 1 [...] Types: 1 Shots of liquor per week Frequency: Monthly or less Drinks per session: 1 or 2 Binge frequency: Never Comment: very rarely ??? Drug use: No [...] Outpatient Medications Medication Sig Dispense Refill ??? albuterol (Ventolin HFA) inhaler Inhale 1 puff every 4 (four) hours as needed for wheezing. 1 Inhaler 11 ??? celecoxib (CeleBREX) 200 mg capsule Take 1 capsule (200 mg total) by mouth daily. With a meal. 90 capsule 3 ??? fluticasone propion-salmeteroL (Advair Diskus) 100-50 mcg/actuation diskus inhaler Inhale 1 puffdaily. 3 each 11 ??? hydroCHLOROthiazide (HYDRODIURIL) 25 mg tablet Take 1 tablet by mouth once daily. 90 tablet 3 ??? levothyroxine (SYNTHROID, LEVOTHROID) 75 mcg tablet Take 1 tablet by mouth once daily. 90 tablet3 ??? lisinopriL (PRINIVIL,ZESTRIL) 30 mg tablet Take 1 tablet by mouth once daily. 90 tablet 3 ??? montelukast (SINGULAIR) 10 mg tablet Take 1 tablet by mouth once daily. 100 tablet 3 ??? pravastatin (PRAVACHOL) 40 mg tablet Take 1.5 tablets by mouth at bedtime. 135 tablet 3 ??? predniSONE (DELTASONE) 10 mg tablet Take 1 tablet (10 mg total) by mouth daily. (Patient taking differently: Take 10 mg by mouth 2 (two) times a day as needed. ) 20 tablet 2 ??? triamcinolone (KENALOG) 0.1 % cream Apply to affected area 1-2 times daily as needed. Avoid faceand groin. 30 g 0 ??? amoxicillin (AMOXIL) 500 mg capsule Take 2,000 mg by mouth. ??? CALCIUM CARB/VIT D3/MINERALS (CALCIUM-VITAMIN D ORAL) Take 1 tablet by mouth 2 (two) times a day. ??? DOCOSAHEXANOIC ACID/EPA (FISH OIL ORAL) 3 (three) times a day. 2 in AM 1 capsule in PM No current facility-administered medications for this visit. [...] No reaction noted in Cerner OBJECTIVE Vitals: 02/24/20 1352 02/24/20 1401 BP: 137/76 126/71 BP Location: Left arm Right arm Patient Position: Sitting Sitting Cuff Size: Regular Regular Pulse: 82 Resp: 20 Temp: 36.6 ??C TempSrc: Temporal Weight: 95.6 kg Height: 163 cm Body mass index is 35.98 kg/m??. PHYSICAL EXAMINATION General: Patient appears in no acute distress. Neck: No lymphadenopathy. No thyroid masses. Heart: Regular rate and rhythm. No murmurs. Lungs: Clear to auscultation. Abdomen: Soft and nontender to palpation. IMPRESSION / REPORT / PLAN #1 Hypertension Essential Primary This is well controlled continue with the current medicines #2 Asthma Intrinsic (HCC) Continue with her current inhalers #3 Bundle Branch Block Left She is not having any chest pain or shortness of breath #4 Rhinitis Allergic This is well controlled with loratadine #5 Hypothyroidism Primary Continue on her Synthroid #6 Hyperlipidemia Continue on her statin #7 Encounter For Screening For Cardiovascular Disorders Will check a lipid panel again next year as well as a metabolic panel. If she has any further questions or problems she will let us know. Total time spent with her was 25 minutes of which 15 was [id number] coordination of care and counseling Igor Horn P.A.-C. documented in this encounter Plan of Treatment Scheduled Referrals Name Type Priority Associated Diagnoses Order S [facility] Medicine Outpatient Referral Routine Expec michelle: office visit 02/23/2021 (clinic) (Approximate), Expires: 02/23/2023 documented as of this encounter Results S-TSH (Thyroid-Stimulating Hormone - Sensitive) (02/15/2021 8:46 AM CDT) athologist Signature TSH, Sensitive 2.8 0.3 - 4.2 02/15/2021 [facility] mIU/L 11:24 AM CDT Specimen Anatomical Collection Method Collection Time Receive d Time (Source) Location / / Volume Laterality Blood (Blood, 02/15/2021 8:46 AM 02/16/20 21 Venous) CDT 10:39 AM CDT Igor Horn P.A.-C. LAB BLOOD ADD-ON Performing Organization Address City/State/ZIP Code Phon e Number [facility]- [address] [facility] [place] [address] [place] [address] System in [place] [address] [facility] (ABNORMAL) Lipid Panel (02/15/2021 8:46 AM CDT) [...] Organization Address City/State/ZIP Code Phon e Number [facility]- [address] [facility] [place] [address] [place] [address] System in [place] [address] [facility] Comprehensive Metabolic Panel (02/15/2021 8:46 AM CDT) [...] CDT eGFR-Black/Afric 83 >=60 02/15/2021 [facility] an Portuguese mL/min/BSA 11:23 AM CDT Comment: ----ADDITIONAL INFORMATION---- [...] Aminotransferase (ALT), 19 7 - 45 U/L 021 11:23 AM CDT OW[facility] P Bilirubin, Total, P 0.5 <=1.2 mg/dL 02/15/2021 11:23 A M CDT OW[facility] Specimen Anatomical Collection Method Collection Time Receive d Time (Source) Location / / Volume Laterality Blood (Blood, 02/15/2021 8:46 AM 02/16/20 21 Venous) CDT 10:39 AM CDT Igor Horn P.A.-C. LAB BLOOD ADD-ON Performing Organization Address City/State/ZIP Code Phon e Number [facility]- [address] [place] [address] [place] [address] System in [place] [address] documented in this encounter Visit Diagnoses Diagnosis Hypertension Essential Primary - Primary Asthma Intrinsic (HCC) Bundle Branch Block Left Rhinitis Allergic Hypothyroidism Primary Hyperlipidemia Encounter For Screening For Cardiovascul ar Disorders documented in this encounter Care Teams Digital Media Coordinator Relationship Specialty Start Date End Date Igor Horn P.A.-C. PCP - General 06/14/18 03/15/22 [address] [place] [phone] documented as of this encounter
--- OUTSIDE RECORDS SUMMARY | 2022-07-10 08:20 | XMS_ITS | Encounter Summary ---
:1940 Author Organization [facility] Address [address] [place] [address] Care Team Providers Name Role Phone Igor Horn P.A.-C. Primary Care Provider [phone] Encounter Details Date Type Department Care Team Description 10/16/2019 Orders Only Department of Family Demian Page R.N. Medicine, [facility], [address] [place] [address] [place] [address] [place] [address] Social History Tobacco Use Types Packs/Day Years [...] More than 4 times per year 03/16/2022 gnosticism services? Do you belong to any clubs [...] level of school Master's degree (e.g., Giuliano Conteh MS, 03/23/2019 you have completed or the highest Roland, MEd, FISCAL MANAGER, MARIE) degree you have received? Sex Assigned at Date Recorded Female 06/26/2021 8:35 AM CDT documented as of this encounter Plan of Treatment Not on filedocumented as of this encounter Visit Diagnoses Not on filedocumented in this encounter Care Teams Collections Rep Relationship Specialty Start Date End Date Igor Horn P.A.-C. PCP - General 06/14/18 03/15/22 [address] [place] [phone] documented as of this encounter
--- OUTSIDE RECORDS SUMMARY | 2022-07-10 08:20 | XMS_ITS | Encounter Summary ---
:1940 Author Organization [facility] Address [address] [place] [address] Care Team Providers Name Role Phone Igor Horn P.A.-C. Primary Care Provider [phone] Reason for Visit Reason Comments Follow-up Follow up related to EKG res ults. Appointment Request (Routine) - Closed Specialty Diagnoses / Procedures Referred By Contact Refer red To Contact Family Medicine Referral ID Status Reason Start Date Expiration Date Visits Requ ested Visits Authorized [id number] Closed 05/04/2019 05/03/2020 1 1 Encounter Details Date Type Department Care Team Description 05/04/2019 Office Visit Department of Igor Byrd [facility] Medicine in [place], Shivam Left (Primary Dx) [address] [phone] [phone] Social History Tobacco Use Types Packs/Day Years [...] have completed or the highest Roland, MEd, CLARIFICATION OPERATOR, MARIE) degree you have received? Sex Assigned at Date Recorded Female 06/26/2021 8:35 AM CDT documented as of this encounter Last Filed Vital Signs Vital Sign Reading Time Taken Comments Blood Pressure 137/66 05/04/2019 10:09 AM CDT Pulse 91 05/04/2019 10:09 AM CDT Temperature 37.5 ??C (99.5 ??F) 05/04/2019 10:09 AM CDT Respiratory Rate 16 05/04/2019 10:09 AM CDT Oxygen Saturation - - Inhaled Oxygen Concentration - - Weight 102 kg (223 lb 15.8 oz) 05/04/2019 10:09 AM CDT Height - - Body Mass Index 39.15 04/30/2019 8:56 AM CDT documented in this encounter Progress Notes Igor Horn P.A.-C. - 05/04/2019 10:00 AM CDT CHIEF COMPLAINT / REASON FOR VISIT Ainsley Herman Gala is a 78 y.o. female who presents for evaluation of Follow-up (Follow up related to EKG results.). HISTORY OF PRESENT ILLNESS Ainsley presents today to discuss her left bundle-branch block. I did her preop history and physical last week and all of her workup was normal. With the exception of a new left bundle branch block. Thisis new since 1996 which was last time we have a record electrocardiogram. We had discussed this lastweek but she wanted to come in to talk about it some more. Overall she says that she is feeling wellshe denies chest pressure or shortness of breath. She has asthma and she says that shortness of breath is different. She is able to exert herself by walking 2 city blocks or climbing a flight of stairswithout any symptoms. She recently had a slight murmur and I ordered an echocardiogram showing normal left ventricular size and function and no regional wall motion abnormalities. OBJECTIVE Vitals: 05/04/19 1009 BP: 137/66 BP Location: Right arm Patient Position: Sitting Cuff Size: Large Pulse: 91 Resp: 16 Temp: 37.5 ??C TempSrc: Temporal Weight: 102 kg Body mass index is 39.15 kg/m??. PHYSICAL EXAM No further physical exam was done today IMPRESSION / REPORT / PLAN #1 Bundle Branch Block Left We had a good discussion I explained the physiology of a left bundle branch block as well as the potential causes. We talked about potential treatment options or further investigation and for this upcoming surgery no further evaluation is necessary. I did discuss this with Dr. Berg in Cardiology as well. In the future when her knee surgery is done and hopefully she is able to be more active., shecandicell let us know if she does develop any exertional symptoms at that point it may be worthwhile investigating this further with a stress test but at this time that is not necessary. She is in agreementwith this plan if she has any further questions or problems she will let us know. Igor Horn P.A.-C. documented in this encounter Plan of Treatment Not on filedocumented as of this encounter Visit Diagnoses Diagnosis Bundle Branch Block Left - Primary documented in this encounter Care Teams Television Maintenance Man Relationship Specialty Start Date End Date Igor Horn P.A.-C. PCP - General 06/14/18 03/15/22 [address] [place] [phone] documented as of this encounter
--- OUTSIDE RECORDS SUMMARY | 2022-07-10 08:20 | XMS_ITS | Encounter Summary ---
:1940 Author Organization [facility] Address [address] [place] [address] Care Team Providers Name Role Phone Igor Horn P.A.-C. Primary Care Provider [phone] Reason for Visit Reason Comments Pre-op Exam Preop for right TKA. [facility] with Dr. Nickerson on 05/05/19. Outpatient (Routine) - Closed Specialty Diagnoses / Procedures Referred By Contact Refer red To Contact General Surgery Diagnoses General Medical Examination Adult Igor Horn, [facility] P.A.-C. [address] [place] [address] Referral ID Status Reason Start Date Expiration Date Visits Requ ested Visits Authorized [id number] Closed 04/06/2019 04/05/2020 1 1 Encounter Details Date Type Department Care Team Description 04/30/2019 Office Visit Department of Family Igor Horn Pa in Knee Right (Primary Dx); Medicine in [facility]. General Medical Examination Adult; [place] [address] [facility] Bundle Branch [facility] Left [address] [place] [phone] Social History Tobacco Use Types Packs/Day Years [...] or relatives? How often do you attend confucianist or More than 4 times per year 03/16/2022 mosque services? Do you belong to any clubs or Yes 03/16/2022 organizations such as confucianist groups, unions, fraternal or athletic groups, or [...] have completed or the highest Roland, MEd, HOLLOW TILE PARTITION ERECTOR, MARIE) degree you have received? Sex Assigned at Date Recorded Female 06/26/2021 8:35 AM CDT documented as of this encounter Last Filed Vital Signs Vital Sign Reading Time Taken Comments Blood Pressure 137/69 04/30/2019 8:56 AM CDT Pulse 73 04/30/2019 8:56 AM CDT Temperature 36.6 ??C (97.9 ??F) 04/30/2019 8:56 AM CDT Respiratory Rate 18 04/30/2019 8:56 AM CDT Oxygen Saturation 98% 04/30/2019 8:56 AM CDT Inhaled Oxygen Concentration - - Weight 102 kg (224 lb 13.9 oz) 04/30/2019 8:56 AM CDT Height 161.1 cm (5' 3.43) 04/30/2019 8:56 AM CDT Body Mass Index 39.3 04/30/2019 8:56 AM CDT documented in this encounter H&P Notes Igor Horn P.A.-C. - 04/30/2019 9:00 AM CDT PREOPERATIVE HISTORY AND PHYSICAL CHIEF COMPLAINT / REASON FOR VISIT Ainsley Cedeño is a 78 y.o. female who presents for evaluation of Pre-op Exam (Preopfor right TKA. [facility]. with Dr. Nickerson on 05/05/19.). HISTORY OF PRESENT ILLNESS: Ainsley presents today for preop history and physical prior to right knee arthroplasty to be done on May 05. Overall she is feeling well. She has medical comorbidities but these have all been quite stable and she is feeling very well right now she has back pain but has been doing physical therapy andhas responded nicely to some core strengthening. She is able to climb a flight of stairs or walk 2 city blocks without limitations PAST MEDICAL HISTORY: Patient Active Problem List Diagnosis ??? Asthma Intrinsic (HCC) ??? Hypertension Essential Primary ??? 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 Hyperlipidemia ??? Hypothyroidism Primary ??? Pain Knee Right ??? Rhinitis Allergic PAST SURGICAL HISTORY: Past Surgical History: Procedure [...] Medications Medication Sig Dispense Refill ??? albuterol (VENTOLIN HFA) 90 mcg/actuation inhaler Inhale 1 puff every 4 (four) hours as needed for wheezing. 1 Inhaler 11 ??? celecoxib (CeleBREX) 200 mg capsule Take 1 capsule (200 mg total) by mouth daily. With a meal. 90 capsule 3 ??? DOCOSAHEXANOIC ACID/EPA (FISH OIL ORAL) 3 (three) times a day. 2 in AM 1 capsule in PM ??? fluticasone-salmeterol (ADVAIR DISKUS) 100-50 mcg/actuation diskus inhaler Inhale 1 puff daily. 3 each 11 ??? hydroCHLOROthiazide (HYDRODIURIL) 25 mg tablet Take 1 tablet (25 mg total) by mouth daily. 90 tablet 3 ??? levothyroxine (SYNTHROID, LEVOTHROID) 75 mcg tablet Take 1 tablet (75 mcg total) by mouth daily.90 tablet 3 ??? lisinopril (PRINIVIL,ZESTRIL) 30 mg tablet Take 1 tablet (30 mg total) by mouth daily. 90 tablet3 ??? montelukast (SINGULAIR) 10 mg tablet Take 1 tablet (10 mg total) by mouth daily. 100 tablet 3 ??? pravastatin (PRAVACHOL) 40 mg tablet Take 1.5 tablets (60 mg total) by mouth at bedtime. 90 tablet 3 ??? predniSONE (DELTASONE) 10 mg tablet ??? amoxicillin (AMOXIL) 500 mg capsule Take 2,000 mg by mouth. ??? CALCIUM CARB/VIT D3/MINERALS (CALCIUM-VITAMIN D ORAL) Take 1 tablet by mouth 2 (two) times a day. No current facility-administered medications for this visit. [...] (see comments) No reaction noted in [employer]ner VITALS: Vitals: 04/30/19 0856 BP: 137/69 BP Location: Left arm Patient Position: Sitting Cuff Size: Large Pulse: 73 Resp: 18 Temp: 36.6 ??C TempSrc: Temporal SpO2: 98% Weight: 102 kg Height: 161.1 cm Body mass index is 39.3 kg/m??. PHYSICAL EXAMINATION: General: Patient appears in no acute distress. ENT: TMs no erythema. Throat no erythema. Neck: No lymphadenopathy. No thyroid masses. Heart: Regular rate and rhythm. 2/6 holosystolic murmur that is stable Lungs: Clear to auscultation. Abdomen: Soft and nontender to palpation. IMPRESSION / REPORT / PLAN: #1 General Medical Examination Adult She is ASA class 2 for surgery follow-up as scheduled. Today we will do a CBC metabolic panel chest x-ray and EKG. If she has any questions or problems she will let us know. She is going to hold her Celebrex as of today. Her labs looked good, her electrocardiogram did show a left bundle branch block. Her last electrocardiogram was many years ago so it is unknown when this may have occurred. I did review her echocardiogram that was just recently done and there is no structural heart disease present. I discussed this with Dr. Berg in Cardiology and given her normal echocardiogram and her ability to exert herself without limiting symptoms she is okay to go for surgery. #2 Pain Knee Right Follow up as scheduled for surgery Igor Horn P.A.-C. documented in this encounter Plan of Treatment Not on filedocumented as of this encounter Procedures Procedure Name Priority Date/Time Associated Diagnosis Comme nts ECG Routine 04/30/2019 9:47 AM General Medical Result s for this CDT Examination Adul t procedure are in Pain Knee Right the results section. CBC WITH Routine 04/30/2019 9:42 AM General Medical Result s for this DIFFERENTIAL, B CDT Examination Adul t procedure are in Pain Knee Right the results section. BASIC METABOLIC Routine 04/30/2019 9:42 AM General Medical Res ults for this PANEL, S/P CDT Examination Adul t procedure are in Pain Knee Right the results section. documented in this encounter Results DX Chest AP or PA and Lateral 2 Views (05/01/2019 9:55 AM CDT) Anatomical Region Laterality Modality Chest, Thoracic RST LOS, Thoracic ARZ LOS, Thoracic N/A Digital Radiography FLA LOS Specimen (Source) Anatomical Collection Method Collection Time Re ceived Time Location / / Volume Laterality 05/01/2019 9:58 AM CDT Impressions 05/01/2019 9:58 AM CDT 1. No acute findings. Narrative 05/01/2019 9:58 AM CDT EXAM: DX CHEST AP OR PA AND LATERAL 2 VIEWS COMPARISON: October 24, 2015. FINDINGS: Small fat pads right cardiophr enic angle and cardiac apex. Small esophageal hiatal hernia. No focal areas of consolidation. No pneu mothorax. Chest otherwise negative for acute findi ngs. Procedure Note Abhi Hernandez M.D. - 05/01/2019Forma tting of this note might be different from the original. EXAM: DX CHEST AP OR PA AND LATERAL 2 EWS COMPARISON: October 24, 2015. FINDINGS: Small fat pads right cardiophr enic angle and cardiac apex. Small esophageal hiatal hernia. No focal areas of consolidation. No pneu mothorax. Chest otherwise negative for acute findi ngs. IMPRESSION: 1. No acute findings. Igor Horn P.A.-C. IMG DIAGNOSTIC IMAGING PROCE [facility] ECG 12 Lead (04/30/2019 9:47 AM CDT) P athologist Signature Ventricular Rate 63 BPM MUSE ECG/Min LA Interval 180 ms MUSE QRSD Interval 154 ms MUSE QT Interval 448 ms MUSE QTC Interval 458 ms MUSE P [place] 60 degrees MUSE R [place] -42 degrees MUSE T Wave [place] 81 degrees MUSE Specimen Anatomical Collection Method Collection Time Receive d Time (Source) Location / / Volume Laterality 04/30/2019 9:47 AM 9 1:57 CDT PM CDT Impressions MUSE - 04/30/2019 1:57 PM CDT Normal sinus rhythm Left axis deviation Left bundle branch block with secondary ST-T abnormalities When compared with ECG of 02-DEC-1996 14 :51, Left bundle branch block is now present QRS axis has changed Reviewed by KRISHNA Meneses Narrative This result has an attachment that is no t available. Procedure Note Stan Stevens M.D., Ph.D. - 04/30/2019Fo rmatting of this note might be different from the original. IMPRESSION: Normal sinus rhythm Left axis deviation Left bundle branch block with secondary ST-T abnormalities When compared with ECG of 02-DEC-1996 14 :51, Left bundle branch block is now present QRS axis has changed Reviewed by KRISHNA Meneses Igor Horn P.A.-C. ECG ORDERABLES Performing Organization Address City/State/ZIP Code Phon e Number MUSE MUSE NA CBC with Differential, Blood (04/30/2019 9:42 AM CDT) P athologist Signature Hemoglobin 12.0 11.6 - 04/30/2019 15.0 g/dL 11:15 AM CDT Hematocrit 38.0 35.5 - 04/30/2019 44.9 % 11:15 AM CDT Erythrocytes 4.24 3.92 - 04/30/2019 5.13 11:15 AM CDT x10(12)/L MCV 89.6 78.2 - 04/30/2019 97.9 fL 11:15 AM CDT RBC Distrib Width 14.9 12.2 - 04/30/2019 16.1 % 11:15 AM CDT Platelet Count 273 157 - 371 04/30/2019 x10(9)/L 11:15 AM CDT Leukocytes 6.6 3.4 - 9.6 04/30/2019 x10(9)/L 11:15 AM CDT Neutrophils 3.74 1.56 - 04/30/2019 6.45 11:15 AM CDT x10(9)/L Lymphocytes 2.12 0.95 - 04/30/2019 3.07 11:15 AM CDT x10(9)/L Monocytes 0.53 0.26 - 04/30/2019 0.81 11:15 AM CDT x10(9)/L Eosinophils 0.19 0.03 - 04/30/2019 0.48 11:15 AM CDT x10(9)/L Basophils 0.03 0.01 - 04/30/2019 0.08 11:15 AM CDT x10(9)/L Specimen Anatomical Collection Method Collection Time Receive d Time (Source) Location / / Volume Laterality Blood (Blood, 04/30/2019 9:42 AM 04/30/20 19 Venous) CDT 11:04 AM CDT Igor Horn P.A.-C. LAB BLOOD ADD-ON Performing Organization Address City/State/ZIP Code Phon e Number [facility] [address] [place] [address] LAB Basic Metabolic Panel (04/30/2019 9:42 AM CDT) P athologist Signature Potassium, S 4.0 3.6 - 5.2 04/30/2019 mmol/L 4:08 PM CDT Sodium, S 142 135 - 145 04/30/2019 mmol/L 4:08 PM CDT Chloride, S 103 98 - 107 04/30/2019 mmol/L 4:08 PM CDT Bicarbonate, S 27 22 - 29 04/30/2019 mmol/L 4:08 PM CDT Anion Gap 12 7 - 15 04/30/2019 4:08 PM CDT BUN (Blood Urea 15 6 - 21 04/30/2019 Nitrogen), S mg/dL 4:08 PM CDT Creatinine 0.71 0.59 - 04/30/2019 1.04 mg/dL 4:08 PM CDT eGFR-Non 83 >=60 04/30/2019 Black/ mL/min/BSA 4:08 PM CDT Colombian Comment: ----ADDITIONAL INFORMATION---- Estimated GFR calculated using the 2009 CKD_EPI creatinine equation. eGFR-Black/ >90 >=60 mL/min/BSA 2018 4:08 PM CDT Comment: ----ADDITIONAL INFORMATION---- Estimated GFR calculated using the 2009 CKD_EPI creatinine equation. Calcium, Total, S 9.4 8.8 - 10.2 mg/dL 04/30/2019 4:08 PM CDT Glucose, S 132 70 - 140 mg/dL 04/30/2019 4:08 PM CDT Specimen Anatomical Collection Method Collection Time Receive d Time (Source) Location / / Volume Laterality Blood (Blood, 04/30/2019 9:42 AM 04/30/20 19 3:29 Venous) CDT PM CDT Igor Horn P.A.-C. LAB BLOOD ADD-ON Performing Organization Address City/State/ZIP Code Phon e Number [facility] [address] [place] [address] LAB documented in this encounter Visit Diagnoses Diagnosis Pain Knee Right - Primary General Medical Examination Adult Bundle Branch Block Left General Medical Examination Adult Pain Knee Right documented in this encounter Care Teams Senior Net Application Developer Relationship Specialty Start Date End Date Igor Horn P.A.-C. PCP - General 06/14/18 03/15/22 [address] [place] [phone] documented as of this encounter
--- OUTSIDE RECORDS SUMMARY | 2022-07-10 08:20 | XMS_ITS | Encounter Summary ---
:1940 Author Organization [facility] Address [address] [place] [address] Care Team Providers Name Role Phone Igor Horn P.A.-C. Primary Care Provider [phone] Reason for Visit Reason Comments Med Refill Encounter Details Date Type Department Care Team Description 12/28/2019 Refill Department of Family Medicine, Igor Ross P.A.-C. Med Refill [facility], in [address] [place] [id number] [place] [address] [place] [address] [phone] Social History Tobacco Use Types Packs/Day Years [...] have completed or the highest Roland, MEd, DIRECT MARKETING MANAGER, MARIE) degree you have received? Sex Assigned at Date Recorded Female 06/26/2021 8:35 AM CDT documented as of this encounter Miscellaneous Notes Telephone Encounter - Kristal Alva - 12/28/2019 12:04 PM CDT Nurse review: Unable to forward request to provider; not on medication list Primary Provider: Igor Horn P.A.-C. Name of medication: Triamcinolone cream Strength: 0.1% Frequency: apply topically to affected area(s) 3 times daily Quantity: 30 Refills: 11 Last Refill: 08/25/2018 Pharmacy: [facility] documented in this encounter Plan of Treatment Not on filedocumented as of this encounter Visit Diagnoses Not on filedocumented in this encounter Care Teams System Validation Engineer Relationship Specialty Start Date End Date Igor Horn P.A.-C. PCP - General 06/14/18 03/15/22 [address] [place] [phone] documented as of this encounter
--- OUTSIDE RECORDS SUMMARY | 2022-07-10 08:20 | XMS_ITS | Encounter Summary ---
:1940 Author Organization [facility] Address [address] [place] [address] Care Team Providers Name Role Phone Igor Horn P.A.-C. Primary Care Provider [phone] Encounter Details Date Type Department Care Team Description 03/18/2019 Hospital Encounter Department of Igor Horn [facility] in [facility] [address] [facility] [address] [place] [phone] [phone] Social History Tobacco Use Types Packs/Day Years Used Date Smoking Tobacco: Never Smokeless Tobacco: Never Alcohol Use Standard Drinks/Week Comments No 0 (1 standard drink = 0.6 oz pure [...] More than 4 times per year 03/16/2022 druze services? Do you belong to any clubs [...] slept in a long term (including now)? Sex Assigned at Date Recorded Female 06/26/2021 8:35 AM CDT documented as of this encounter Medications at Time of Discharge Medication Sig Dispensed Refills Start Date End Date amoxicillin (AMOXIL) 500 mg Take 2,000 mg by 0 capsule mouth. CALCIUM CARB/VIT Take 1 tablet by 0 11/05/2011 D3/MINERALS mouth 2 (two) (CALCIUM-VITAMIN D ORAL) times a day. DOCOSAHEXANOIC ACID/EPA 3 (three) times a 0 12/21 (FISH OIL ORAL) day. 2 in AM 1 capsule in PM albuterol (VENTOLIN HFA) 90 Inhale 1 puff 1 Inhaler 08/2512/24/2019 mcg/actuation inhaler every 4 (four) hours as needed for wheezing. celecoxib (CeleBREX) 200 mg Take 1 capsule 90 capsule 3 06/201902/24/2020 capsule (200 mg total) by mouth daily. With a meal. fluticasone (FLONASE) 50 Administer 1 16 g 8 03/23/2019 mcg/actuation nasal spray spray into each nostril daily. fluticasone-salmeterol Inhale 1 puff 3 each 08/25/2018 12/24/2019 (ADVAIR DISKUS) 100-50 daily. mcg/actuation diskus inhaler hydroCHLOROthiazide Take 1 tablet (25 90 tablet 3 9 02/10/2020 (HYDRODIURIL) 25 mg tablet mg total) by mouth daily. levothyroxine (SYNTHROID, Take 1 tablet (75 90 tablet 3 06/201902/10/2020 LEVOTHROID) 75 mcg tablet mcg total) by mouth daily. lisinopril Take 1 tablet (30 90 tablet 3 02/12/2019 020 (PRINIVIL,ZESTRIL) 30 mg mg total) by tablet mouth daily. montelukast (SINGULAIR) 10 Take 1 tablet (10 100 tablet 3 02/10/2020 mg tablet mg total) by mouth daily. pravastatin (PRAVACHOL) 40 Take 1.5 tablets 90 tablet 3 06/201902/10/2020 mg tablet (60 mg total) by mouth at bedtime. predniSONE (DELTASONE) 10 Take 1 tablet (10 20 tablet 2 03/23/2019 mg tablet mg total) by mouth daily. triamcinolone (KENALOG) 0.1 Apply topically 3 30 g 11 1 10/25/2017 03/23/2019 % cream (three) times a day. documented as of this encounter Plan of Treatment Not on filedocumented as of this encounter Procedures Procedure Name Priority Date/Time Associated Diagnosis Comme nts (TTE) 2D ECHO Routine 03/18/2019 2:54 PM [facility] Results for this DOPPLER COLOR CDT procedure are in the results section. documented in this encounter Results (TTE) 2D ECHO DOPPLER COLOR (03/18/2019 2:54 PM CDT) [facility] gist Method Time Signature Ejection Fraction 66 MC CV EIMS Proximal Ascending 30 MC CV EIMS Aorta LV Mass Index 98 MC CV EIMS LV End-Diastolic 51 MC CV EIMS Diameter LV End-Systolic 31 MC CV EIMS Diameter LV End-Diastolic 118 MC CV EIMS Volume LV End-Systolic 40 MC CV EIMS Volume MV E Velocity 0.8 MC CV EIMS MV A Velocity 1.2 MC CV EIMS MV E/A 0.67 MC CV EIMS MV e' Velocity 0.17 MC CV EIMS Medial MV e' Velocity 0.08 MC CV EIMS Lateral MV E/e' Medial 4.7 MC CV EIMS MV E/e' Lateral 10.0 MC CV EIMS Left ventricular 41 MC CV EIMS stroke volume index Cardiac Output 5.79 MC CV EIMS Cardiac Index 2.84 MC CV EIMS LV Interventricular 11 MC CV EIMS Septal Wall Thickness LV Posterior Wall 10 MC CV EIMS Thickness LV Relative Wall 39 MC CV EIMS Thickness Tricuspid Annular S? 0.19 MC CV EIMS TR Vmax 2.39 MC CV EIMS RA Pressure 5 MC CV EIMS RV Systolic Pressure 28 MC CV EIM S AV mean gradient 7 MC CV EIMS Aortic valve area 2.25 MC CV EIMS Aortic Valve 0.72 MC CV EIMS Dimensionless Index LA Volume Index 25 MC CV EIMS Anatomical Region Laterality Modality Echocardiography Specimen (Source) Anatomical Collection Method Collection Time Re ceived Time Location / / Volume Laterality 03/18/2019 1:28 PM CDT Narrative 03/18/2019 3:30 PM CDT For the complete report, see the Order-L evel Documents below. Final Impressions 1. Aortic valve not well visualized to i dentify number of cusps. ??No aortic stenosis or regurgitation. 2. Trivial mitral valve regurgitation. ? ?Trivial tricuspid regurgitation. 3. Normal left ventricular chamber size. ??Calculated ejection fraction = 66%. ??No regional wall motion abnormalities. 4. Grade 1/4 left ventricular diastolic dysfunction, consistent with low to normal left ventricular filling pressure. 5. Normal right ventricular size and sys tolic function. ??Estimated right ventricular systolic pressure = 28 mmHg. 6. Normal inferior vena cava size with n ormal inspiratory collapse (>50%). Findings LEFT VENTRICLE: ??Normal left ventricula r chamber size. ??Calculated 2-D biplane volumetric left ventricular ejection fraction 66 %. ??No regional wall motion abnormalities. ??Normal left ventricular wall thickness. ??Grade 1/4 left ventricular diastolic dysfunction, consistent with low to normal left ventricular filling p ressure. ??RIGHT VENTRICLE: ??Normal right ventricular size. ??Normal right ventricular systoli c function. ??Estimated right ventricular systolic pressure 28 mmHg. ??ATRIA: ??Normal left atrial size. ??Left atrial volume index 25 ml/m^2. Normal right atrial size. ??CARDIAC VALV ES: ??Aortic valve not well visualized to identify number of cusps. ??No aortic valve stenosis. ?? No aortic valve regurgitation. ??Mildly thickened mitral valve. ??Trivial mitral valve regurgitat ion. ??Pulmonary valve not well visualized. ??Normal tricuspid valve. ??Trivial tricuspid nicolas ve regurgitation. ??OTHER ECHO FINDINGS: ??Normal ascending aorta dimension (proximally). ??Abdominal aorta incompletely visualized. ??Normal inferior vena cava size with normal insp iratory collapse (>50%). ??Imaging inadequate for detection of atrial level shunt by color flow imaging. ??No intracardiac mass or thrombus, but the left atrial appendage cannot be visu alized adequately with transthoracic echo to exclude thrombus in this location. ??No pericard ial effusion. For the complete report, see the Order-L evel Documents below. See PDF For Result Procedure Note Wicho Flores M.D. - 03/18/2019Form atting of this note might be different from the original. For the complete report, see the Order-L evel Documents below. Final Impressions 1. Aortic valve not well visualized to i dentify number of cusps. No aortic stenosis or regurgitation. 2. Trivial mitral valve regurgitation. T rivial tricuspid regurgitation. 3. Normal left ventricular chamber size. Calculated ejection fraction = 66%. No regional wall motion abnormalities. 4. Grade 1/4 left ventricular diastolic dysfunction, consistent with low to normal left ventricular filling pressure. 5. Normal right ventricular size and sys tolic function. Estimated right ventricular systolic pressure = 28 mmHg. 6. Normal inferior vena cava size with n ormal inspiratory collapse (>50%). Findings LEFT VENTRICLE: Normal left ventricular chamber size. Calculated 2-D biplane volumetric left ventricular ejection fraction 66 %. No r egional wall motion abnormalities. Normal left ventricular wall thickness. Grade 1/4 le ft ventricular diastolic dysfunction, consistent with low to normal left ventricular filling p ressure. RIGHT VENTRICLE: Normal right ventricular size. Normal right ventricular systolic function. Estimated right ventricular systolic pressure 28 mmHg. ATRIA: Normal left atr ial size. Left atrial volume index 25 ml/m^2. Normal right atrial size. CARDIAC VALVES : Aortic valve not well visualized to identify number of cusps. No aortic valve stenosis. No a ortic valve regurgitation. Mildly thickened mitral valve. Trivial mitral valve regurgitatio n. Pulmonary valve not well visualized. Normal tricuspid valve. Trivial tricuspid valve regurgitation. OTHER ECHO FINDINGS: Normal ascending aorta dimension (proximally). Abdominal aorta incompletely visualized. Normal inferior vena cava size with normal insp iratory collapse (>50%). Imaging inadequate for detection of atrial level shunt by color flow imaging. No intracardiac mass or thrombus, but the left atrial appendage cannot be visu alized adequately with transthoracic echo to exclude thrombus in this location. No pericardia l effusion. For the complete report, see the Order-L evel Documents below. See PDF For Result Igor Horn P.A.-C. CV ECHO PROCEDURES documented in this encounter Visit Diagnoses Diagnosis [facility]mur Heart documented in this encounter Care Teams Serology Technician Relationship Specialty Start Date End Date Igor Horn P.A.-C. PCP - General 06/14/18 03/15/22 [address] [place] [phone] documented as of this encounter
--- OUTSIDE RECORDS SUMMARY | 2022-07-10 08:20 | XMS_ITS | Encounter Summary ---
:1940 Author Organization [facility] Address [address] [place] [id number] Care Team Providers Name Role Phone Igor Horn P.A.-C. Primary Care Provider [phone] Reason for Referral Outpatient (Routine) - Closed Specialty Diagnoses / Procedures Referred By Contact Refer red To Contact Dermatology Diagnoses Malignant Neoplasm Of Forearm Squamous Cell Carcinoma Right Ana Quezada M.D. [facility] [address] [place] [phone] Referral ID Status Reason Start Date Expiration Date Visits Requ ested Visits Authorized [id number] Closed 04/07/2019 04/06/2020 1 1 Reason for Visit Outpatient (Routine) - Closed Specialty Diagnoses / Procedures Referred By Contact Refer red To Contact Dermatology Diagnoses Malignant Neoplasm Of Forearm Squamous Cell Carcinoma Right Igor Horn P.A.-C. [facility] [address] [place] [address] Referral ID Status Reason Start Date Expiration Date Visits V isits Requested Authorized [id number] Closed Specialty 03/23/2019 03/22/2020 1 1 Services Required Encounter Details Date Type Department Care Team Description 04/07/2019 Comprehensive Visit Department of Roro Mayes, Dermato heliosis (Primary Dx); D[place]atology in [place] Malignant Neoplasm Of Forearm Squamous C ell Carcinoma Right; [place], [address] Cancer Skin Per kassie History; [address] Keratosis Seborrheic Inflamed; [address] [place], [place] Keratosis Seborrheic; [place] [address] [place]; [phone] Adamaris Salmeron Social History Tobacco Use Types Packs/Day Years [...] or relatives? How often do you attend pentecostal or More than 4 times per year 03/16/2022 bahai services? Do you belong to any clubs or Yes 03/16/2022 organizations such as pentecostal groups, unions, fraternal or athletic groups, or [...] have completed or the highest Roland, MEd, BRIM STRETCHING MACHINE OPERATOR, MARIE) degree you have received? Sex Assigned at Date Recorded Female 06/26/2021 8:35 AM CDT documented as of this encounter Consult Notes Roro Mayes M.D. - 04/07/2019 3:40 PM CDT DERMATOLOGY CONSULT Supervised by: Dr. Dawna Quezada ([id number]). Patient seen and discussed with supervising network security consultant, Dr. Quezada, who evaluated the patient and concurs with the assessment and plan. Correspondence to me. REFERRAL Igor Horn P.A.-C. CHIEF COMPLAINT Personal history of nonmelanoma skin cancer HISTORY OF THE PRESENT ILLNESS Ainsley Cedeño is a pleasant 78 y.o. female who presents for skin cancer screening examination. She has a history of squamous cell carcinoma diagnosed in 2002. She has done well since then. She has noted a irritated lesion underneath her right breast and would like it removed today if possible. She otherwise has no concerns today. She tries to be diligent with photoprotective measures. REVIEW OF SYSTEMS Negative. PAST MEDICAL HISTORY Squamous cell carcinoma, 2002 Allergies Allergen Reactions ??? Animal Dander Shortness of breath ??? Cat Dander Other (see comments) No reaction noted in Cerner ??? Codeine Other (see comments) No reaction noted in Cerner ??? House Dust Mite Other (see comments) No reaction noted in [place]ner ??? Hydrocodone GI intolerance ??? Prochlorperazine Other (see comments) No reaction noted in [place] PHYSICAL EXAM Constitutional: Awake, alert, in no acute distress, and with appropriate affect. Eyes: Normal conjunctiva. No periorbital edema or rash. Mouth: Mucous membranes moist. No lesions on the lips. Cardio: No lower extremity edema. Skin: Full skin examination of the scalp, head, neck, chest, abdomen, back, upper extremities, lowerextremities and buttocks was performed per patient's request. Torres type 2 with moderate dermatoheliosis of sun-exposed areas. The patient has scattered light brown macules over the trunk, extremities, and face consistent with solar lentigines. Involving the right breast is an irritated waxy stuck on papule consistent the seborrheic keratosis. There are other waxy stuck on papules and plaques on the face, trunk and extremities consistent with seborrheic keratoses. There are numerous salmeron angiomas on the trunk and extremities. IMPRESSION AND PLAN #Personal history of skin cancer #Skin cancer screening examination #Dermatoheliosis No worrisome findings for skin cancer today. Sun protection and sun avoidance were reviewed with thepatient. Educational materials were provided regarding skin self-examination, the warning signs and symptoms of skin cancer, and the proper use of sunscreens. I would recommend a full skin cancer screening examination with an appropriately trained clinician every year. #Multiple benign appearing nevi The ABCDE criteria for melanoma was reviewed with the patient. None of the patient's nevi reach the clinical threshold for biopsy. I recommend continued sun protection, self-skin examinations, and observation. Should any of the patient's nevi change in size, color, texture, or shape or develop symptoms such as itching or bleeding, I recommend an immediate return visit for reassessment. #Inflamed seborrheic keratoses The benign nature of this lesion(s) was discussed with the patient. Given the inflamed nature of this lesion(s), its treatment is medically indicated. We treated a total of 1 lesion(s) with by numbing the lesion with 1% lidocaine and epinephrine, then curettage to remove the entirety of the lesion. The patient tolerated the procedure well. Aftercare instructions were provided in verbal form to the patient. Should any of these lesions recur, the patient should return for further evaluation. #Seborrheic keratoses #Salmeron angiomas #Solar lentigines The benign nature of the skin lesion(s) [...] patient/guardian of patient expressed understanding of thecontent. Associated attestation - Ana Quezada M.D. - 04/07/2019 4:51 PM CDT I saw and evaluated the patient, participating in the loaiza portions of the service. I reviewed the resident/fellow???s note. I agree with the resident/fellow???s findings and plan. documented in this encounter Plan of Treatment Scheduled Referrals Name Type Priority Associated Order Schedule Diagnoses Dermatology office Outpatient Referral Routine Malignant Neopl asm Expected: visit (clinic) Of Forearm Squamous 2019 Cell Carcinoma (Approximate) , Right Expires: 04/07/2022 documented as of this encounter Visit Diagnoses Diagnosis Dermatoheliosis - Primary Malignant Neoplasm Of Forearm Squamous C ell Carcinoma Right Personal History Of Other Malignant Neop lasm Of Skin Keratosis Seborrheic Inflamed Keratosis Seborrheic [place] Angioma Salmeron documented in this encounter Care Teams Purse Framer Relationship Specialty Start Date End Date Igor Horn P.A.-C. PCP - General 06/14/18 03/15/22 [address] [place] [address] documented as of this encounter
--- OUTSIDE RECORDS SUMMARY | 2022-07-10 08:20 | XMS_ITS | Encounter Summary ---
:1940 Author Organization [facility] Address [address] [place] [address] Care Team Providers Name Role Phone Igor Horn P.A.-C. Primary Care Provider [phone] Reason for Referral Outpatient (Routine) - Closed Specialty Diagnoses / Procedures Referred By Contact Refer red To Contact Dermatology Diagnoses Malignant Neoplasm Of Forearm Squamous Cell Carcinoma Right Igor Horn P.A.-C. [address] [phone] Referral ID Status Reason Start Date Expiration Date Visits V isits Requested Authorized [id number] Closed Specialty 03/23/2019 03/22/2020 1 1 Services Required Reason for Visit Reason Comments Results Echo results completed on 09/24. Outpatient (Routine) - Closed Specialty Diagnoses / Procedures Referred By Contact Refer red To Contact Family Medicine Igor Horn P. A.-C. [address] [phone] Referral ID Status Reason Start Date Expiration Date Visits Requ ested Visits Authorized [id number] Closed 02/12/2019 02/12/2020 1 1 Encounter Details Date Type Department Care Team Description 03/23/2019 Office Visit Department of Igor Byrd Pa in Knee Right (Primary Dx); Medicine in [place], P.A.-C. Regurgitation Mitral; [address] Screening Mammogram Breast Cancer; [address] [place], [place] Malignant Neoplasm Of Forear m Squamous Cell Carcinoma Right [place] [phone] [phone] Social History Tobacco Use Types Packs/Day Years [...] More than 4 times per year 03/16/2022 amish services? Do you belong to any clubs [...] school Master's degree (e.g., [employer] [place], [place], 03/23/2019 you have completed or the highest Roland, MEd, EARTH SCIENCE FACULTY MEMBER, MARIE) degree you have received? Sex Assigned at Date Recorded Female 06/26/2021 8:35 AM CDT documented as of this encounter Last Filed Vital Signs Vital Sign Reading Time Taken Comments Blood Pressure 132/70 03/23/2019 9:13 AM CDT Pulse 85 03/23/2019 9:13 AM CDT Temperature 37.3 ??C (99.1 ??F) 03/23/2019 9:13 AM CDT Respiratory Rate 16 03/23/2019 9:13 AM CDT Oxygen Saturation 97% 03/23/2019 9:13 AM CDT Inhaled Oxygen Concentration - - Weight 101 kg (223 lb 8.7 oz) 03/23/2019 9:13 AM CDT Height - - Body Mass Index 38.88 08/19/2018 2:24 PM IRONWORKER documented in this encounter Progress Notes Igor Horn P.A.-C. - 03/23/2019 9:00 AM CDT CHIEF COMPLAINT / REASON FOR VISIT Ainsley Cedeño is a 78 y.o. female who presents for evaluation of Results (Echo results completed on 03/18/19.). HISTORY OF PRESENT ILLNESS Ainsley presents today for follow-up of her echocardiogram as well as some other questions. She has a longstanding history of knee pain she is going to be following up with her orthopedic surgeon in the near future and may need a knee replacement. I reviewed her echocardiogram that was done prior to this visit and she does have some mild mitral regurgitation. She has no notable aortic stenosis. She also has a longstanding history of skin cancer with squamous cell carcinoma of her right arm in the pastshe would like to see Dermatology for a full skin exam. She also is due for a mammogram she wanted to have this done in [place] but there is some struggling with the scheduling I think it would be appropriate to have it done locally. She is in agreement with this plan OBJECTIVE Vitals: 03/23/19 0913 BP: 132/70 BP Location: Right arm Patient Position: Sitting Cuff Size: Large Pulse: 85 Resp: 16 Temp: 37.3 ??C TempSrc: Temporal SpO2: 97% Weight: 101 kg Body mass index is 38.88 kg/m??. PHYSICAL EXAM In general she appears in no acute distress Heart: Regular rate and rhythm with 2/6 systolic crescendo decrescendo murmur Lungs: Clear to auscultation IMPRESSION / REPORT / PLAN #1 Pain Knee Right She will follow up as scheduled with orthopedic surgeon she will need a preop if she decides to havesurgery #2 Regurgitation Mitral This is quite mild I reviewed her echocardiogram with her in detail today #3 Screening Mammogram Breast Cancer Will set her up for a mammogram with 3D in [place] #4 Malignant Neoplasm Of Forearm Squamous Cell Carcinoma Right I put through a consult for her to have a full skin exam in [place] with Dermatology. Total time spent with her today was 25 minutes of which 20 was [id number] coordination of care and counseling Igor Horn P.A.-C. documented in this encounter Plan of Treatment Scheduled Referrals Name Type Priority Associated Order Schedule Diagnoses Dermatology - General Outpatient Referral Routine Malignant Ne oplasm Expected: consult (clinic) Of Forearm Squamous 03/07 Cell Carcinoma (Approximate) , Right Expires: 03/23/2022 documented as of this encounter Results BI Breast Screening Bilateral with Tomosynthesis (04/07/2019 10:21 AM CDT) Anatomical Region Laterality Modality Breast, Breast Imaging RST LOS, Breast Imaging ARZ LOS, [place] [address] Bilateral Mammography Imaging FLA LOS Specimen (Source) Anatomical Collection Method Collection Time Re ceived Time Location / / Volume Laterality 04/07/2019 10:27 AM CDT Impressions 04/07/2019 10:28 AM CDT Negative. RECOMMENDATION: ??Annual Screening Mammo gram ASSESSMENT: ??BI-RADS: 1: Negative. Narrative 04/07/2019 10:28 AM CDT EXAM: ??BI BREAST SCREENING BILATERAL WITH TOMOSYNTHESIS Current study was evaluated with a Compu ter Aided Detection (CAD) system. INDICATION: ??Screening mammogram. COMPARISON: ??Prior exam(s) were availab le and reviewed for comparison. DENSITY: ??c. The breast(s) are heteroge neously dense, which may obscure small masses. FINDINGS: ??No mammographic findings of malignancy. Procedure Note Abhi Hernandez M.D. - 04/07/2019Forma tting of this note might be different from the original. EXAM: BI BREAST SCREENING BILATERAL WITH TOMOSYNTHESIS Current study was evaluated with a Compu ter Aided Detection (CAD) system. INDICATION: Screening mammogram. [...] Diagnoses Diagnosis Pain Knee Right - Primary Regurgitation Mitral Screening Mammogram Breast Cancer Malignant Neoplasm Of Forearm Squamous C ell Carcinoma Right Screening Mammogram Breast Cancer documented in this encounter Care Teams Rotary Veneer Machine Operator Relationship Specialty Start Date End Date Igor Horn P.A.-C. PCP - General 06/14/18 03/15/22 [address] [place] [address] documented as of this encounter
--- OUTSIDE RECORDS SUMMARY | 2022-07-10 08:20 | XMS_ITS | Encounter Summary ---
:1940 Author Organization [facility] Address [address] [place] [address] Care Team Providers Name Role Phone Igor Horn P.A.-C. Primary Care Provider [phone] Encounter Details Date Type Department Care Team Description 04/07/2019 Hospital Encounter Department of Merlyn Horn Mammogram Radiology in [place] Breast Cancer [place], [place] [address] [facility] [address] [place] [phone] [phone] Social History Tobacco Use Types Packs/Day Years [...] have completed or the highest Roland, MEd, MAINTENANCE REPAIRMAN, MARIE) degree you have received? Sex Assigned [...] total) by mouth daily. With a meal. fluticasone-salmeterol Inhale 1 puff 3 each 08/25/2018 12/24/2019 (ADVAIR DISKUS) 100-50 daily. mcg/actuation diskus inhaler hydroCHLOROthiazide Take 1 tablet 90 tablet 3 02/12/2019 (HYDRODIURIL) 25 mg tablet (25 mg total) by mouth daily. levothyroxine (SYNTHROID, Take 1 tablet 90 tablet 3 019 02/10/2020 LEVOTHROID) 75 mcg tablet (75 mcg total) by mouth daily. lisinopril Take 1 tablet 90 tablet 3 02/12/2019 02/10/2020 (PRINIVIL,ZESTRIL) 30 mg (30 mg total) by tablet mouth daily. montelukast (SINGULAIR) 10 Take 1 tablet 100 tablet 3 201802/10/2020 mg tablet (10 mg total) by mouth daily. pravastatin (PRAVACHOL) 40 Take 1.5 tablets 90 tablet 3 06/201902/10/2020 mg tablet (60 mg total) by mouth at bedtime. predniSONE (DELTASONE) 10 mg 0 019 12/24/2019 tablet documented as of this encounter Plan of Treatment Not on filedocumented as of this encounter Procedures Procedure Name Priority Date/Time Associated Comments Diagnosis BI BREAST SCREENING RAD - Routine 04/07/2019 10:21 Screening Res ults for BILATERAL WITH (most inpatients AM CDT Mammogram Breast this procedure TOMOSYNTHESIS and all Cancer are in the outpatients) results section. documented in this encounter Results BI Breast Screening Bilateral with Tomosynthesis (04/07/2019 10:21 AM CDT) Anatomical Region Laterality Modality Breast, Breast Imaging RST LOS, Breast Imaging ARZ LOS, [address] [facility] Bilateral Mammography Imaging FLA [facility] Specimen (Source) Anatomical Collection Method Collection Time [...] Cancer documented in this encounter Care Teams Customs Opener Verifier Packer Relationship Specialty Start Date End Date Igor Horn P.A.-C. PCP - General 06/14/18 03/15/22 [address] [place] [phone] documented as of this encounter
--- OUTSIDE RECORDS SUMMARY | 2022-07-10 08:20 | XMS_ITS | Encounter Summary ---
:[address] [facility] Address [address] [place] [address] Care Team Providers Name Role Phone Igor Horn P.A.-C. Primary Care Provider [phone] Encounter Details Date Type Department Care Team Description 12/24/2019 Refill Department of Family Medicine, Igor Ross P.A.-C. [facility], in [address] [place] [phone] [place] [address] [place] [address] [phone] Social History Tobacco Use Types Packs/Day Years [...] or relatives? How often do you attend amish or More than 4 times per year 03/16/2022 hinduism services? Do you belong to any clubs or Yes 03/16/2022 organizations such as amish groups, unions, fraternal or athletic groups, or school groups? How often do you attend meetings of the More than 4 times [facility] year 03/16/2022 clubs or [...] have completed or the highest Roland, MEd, STACKER DRIVER, MARIE) degree you have received? Sex Assigned at Date Recorded Female 06/26/2021 8:35 AM CDT documented as of this encounter Plan of Treatment Not on filedocumented as of this encounter Visit Diagnoses Not on filedocumented in this encounter Care Teams Sand System Operator Relationship Specialty Start Date End Date Igor Horn P.A.-C. PCP - General 06/14/18 03/15/22 [address] [place] [phone] documented as of this encounter
--- OUTSIDE RECORDS SUMMARY | 2022-07-10 08:20 | XMS_ITS | Encounter Summary ---
:1940 Author Organization [facility] Address [address] [place] [address] Care Team Providers Name Role Phone Igor Horn P.A.-C. Primary Care Provider [phone] Reason for Visit Reason Comments Other Has many questions she would like answered today, She brought a list with her. 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 Appointment Request (Routine) - Closed Specialty Diagnoses / Procedures Referred By Contact Refer red To Contact Family Medicine Referral ID Status Reason Start Date Expiration Date Visits Requ ested Visits Authorized [id number] Closed 09/15/2019 09/14/2020 1 1 Encounter Details Date Type Department Care Team Description 09/28/2019 Office Visit Department of Family Igor Horn Pa in Knee Right (Primary Dx); Medicine in [place], [place]. Pain Low Back; [address] Obesity Body Mass Index 30-39.9 Adult; [address] [place] [address] [place] [phone] [phone] Social History Tobacco Use Types Packs/Day Years [...] or relatives? How often do you attend shinto or More than 4 times per year 03/16/2022 druze services? Do you belong to any clubs or Yes 03/16/2022 organizations such as shinto groups, unions, fraDxO Labs or athletic groups, or school groups? How [...] have completed or the highest Roland, MEd, ASSEMBLY INSPECTOR HELPER, MARIE) degree you have received? Sex Assigned at Date Recorded Female 06/26/2021 8:35 AM CDT documented as of this encounter Last Filed Vital Signs Vital Sign Reading Time Taken Comments Blood Pressure 135/66 09/28/2019 10:18 AM WOODWORKING MACHINE FEEDER Pulse 76 09/28/2019 10:15 AM WOODWORKING MACHINE FEEDER Temperature 36 ??C (96.8 ??F) 09/28/2019 10:15 AM WOODWORKING MACHINE FEEDER Respiratory Rate 16 09/28/2019 10:15 AM WOODWORKING MACHINE FEEDER Oxygen Saturation 97% 09/28/2019 10:15 AM WOODWORKING MACHINE FEEDER Inhaled Oxygen Concentration - - Weight 101 kg (222 lb 7.1 oz) 09/28/2019 10:15 AM WOODWORKING MACHINE FEEDER Height 160.6 cm (5' 3.23) 09/28/2019 10:15 AM WOODWORKING MACHINE FEEDER Body Mass Index 39.12 09/28/2019 10:15 AM WOODWORKING MACHINE FEEDER documented in this encounter Progress Notes Igor Horn PLynn. - 09/28/2019 10:30 AM CST CHIEF COMPLAINT / REASON FOR VISIT Ainsley Cedeño is a 78 y.o. female who presents for evaluation of Other (Has many questions she would like answered today, She brought a list with her. Mainly questions about her heart and her Arthiritis.). HISTORY OF PRESENT ILLNESS Ainsley presents today to discuss her medical problems. She had knee surgery earlier this year she hassome chronic back pain as well she has been taking Celebrex for years and she is wanting about otherpotential alternatives. She also realizes that her body mass index is higher than it should be and she would be interested in weight loss. She is contemplating seeing a dietitian. She came in today with a list of questions to discuss further. Primarily this is involving her chronic pain issues. She isplanning to go to [place] for the winter and the warm air has been very beneficial for her in the past and she is excited about doing that she is planning to return to [place] in February. OBJECTIVE Vitals: 09/28/19 1015 09/28/19 1018 BP: 151/61 135/66 BP Location: Right arm Right arm Patient Position: Sitting Sitting Cuff Size: Large Large Pulse: 76 Resp: 16 Temp: 36 ??C TempSrc: Temporal SpO2: 97% Weight: 101 kg Height: 160.6 cm Body mass index is 39.12 kg/m??. PHYSICAL EXAM No further physical exam was done today IMPRESSION / REPORT / PLAN #1 Pain Knee Right We had a great discussion about this we talked about her chronic orthopedic issues. We talked about having her see Physical Medicine Rehabilitation and or continuing with her physical therapy once she returns to [place]. We stressed the importance of doing nonweightbearing activities as this will irritate her knee pain and her back pain we also stressed the importance of losing weight she is very interested in proceeding with this further. We talked about many strategies that could be beneficial in for this as well #2 Pain Low Back For her back pain she is currently on the Celebrex she is thinking of discontinuing this and trying glucosamine chondroitin. I think this is a reasonable approach. If she has further questions or problems she will let us know #3 Obesity Body Mass Index 30-39.9 Adult She is going to continue to work on her weight loss we discussed many strategies. I would certainly approve her seeing a dietitian and she will let us know if she wants a referral for anything further. #4 Left bundle branch block We discussed this in detail as well I previously did an echocardiogram and I reviewed that with her again today I reassured her that I don't think anything further needs to be done at this time I encouraged her to continue with her exercise regimen and if she notices any chest pain or shortness of breath she will let us know otherwise I'll have her follow up as needed. Total time spent with her todaywas 25 minutes of which 20 was [id number] coordination of care and counseling Igor Horn P.A.-C. WORKING MACHINE FEEDER documented in this encounter Plan of Treatment Not on filedocumented as of this encounter Visit Diagnoses Diagnosis Pain Knee Right - Primary Pain Low Back Unspecified Obesity Body Mass Index 30-39.9 Adult Bundle Branch Block Left documented in this encounter Care Teams Harbor Engineer Relationship Specialty Start Date End Date Igor Horn P.A.-C. PCP - General 06/14/18 03/15/22 [address] [place] [phone] documented as of this encounter
--- OUTSIDE RECORDS SUMMARY | 2022-07-10 08:20 | XMS_ITS | Encounter Summary ---
:1940 Author Organization [facility] Address [address] [place] [address] Care Team Providers Name Role Phone Igor Horn P.A.-C. Primary Care Provider [phone] Encounter Details Date Type Department Care Team Description 05/01/2019 Hospital Encounter Department of Justina, General Medical Examination Adult; Radiology in Shivam Costa Pain Knee Right [place], [place] [address] [place] [phone] Social History Tobacco Use Types Packs/Day Years [...] have completed or the highest Roland, MEd, INTERNAL WHOLESALER, MARIE) degree you have received? Sex Assigned [...] Procedure Name Priority Date/Time Associated Comments Diagnosis DX CHEST AP OR PA RAD - Routine 05/01/2019 9:55 General Medical Res ults for this AND LATERAL 2 (most inpatients AM CDT Examination Kirk lt procedure are in VIEWS and all Pain Knee Right the results outpatients) section. documented in this encounter Results DX [...] Igor Horn P.A.-C. IMG DIAGNOSTIC IMAGING PROCE DURJOSE documented in this encounter Visit Diagnoses Diagnosis General Medical Examination Adult Pain Knee Right documented in this encounter Care Teams Fire Patrol Relationship Specialty Start Date End Date Igor Horn P.A.-C. PCP - General 06/14/18 03/15/22 [address] [place] [phone] documented as of this encounter
--- OUTSIDE RECORDS SUMMARY | 2022-07-10 08:20 | XMS_ITS | Encounter Summary ---
:1940 Author Organization [facility] Address [address] [place] [address] Care Team Providers Name Role Phone Igor Horn P.A.-C. Primary Care Provider [phone] Reason for Visit Reason Comments Asthma plan Encounter Details Date Type Department Care Team Description 01/08/2020 Clinical Communication Division of Allergic Valdemar Ma [facility] [place] [address] [address] [facility] [address] [place] [phone] Social History Tobacco Use Types Packs/Day Years [...] or relatives? How often do you attend taoist or More than 4 times per year 03/16/2022 rastafari services? Do you belong to any clubs or Yes 03/16/2022 organizations such as taoist groups, unions, fraternal or athletic groups, or [...] have completed or the highest Roland, MEd, HISTORIC PRESERVATIONIST, MARIE) degree you have received? Sex Assigned at Date Recorded Female 06/26/2021 8:35 AM CDT documented as of this encounter Miscellaneous Notes Telephone Encounter - Kimberly Medel R.N. - 01/08/2020 4:59 PM CDT Called patient back and informed her that if she develops symptoms of COVID-19 she should be seen locally and tested. Patient also said that she is 40 minutes away from [place] so if she is unable to drive she would call 911. This nurse encouraged her to call 911 if she is affected by fevers, coughing,or shortness of breath. Patient was thankful for this information. Patient was in agreement with this plan. Telephone Encounter - Valdemar Ma M.D. - 01/08/2020 4:41 PM CDT If she would develop COVID symptoms she would need to seek local care as per the area's protocol. They would guide her on testing and where to go. Asthma would be treated basically the same as usual. There is potential for asthma flare with any viral infection including the COVID. The difficulty is that COVID itself can get severe very quickly, so it would be important to seek local care if its suspected. Thanks. Telephone Encounter - Kimberly Medel R.N. - 01/08/2020 2:45 PM CDT ASSESSMENT Called patient and addressed her questions regarding how she should take her medications if she starts developing COVID-19 symptoms. Patient was advised by this nurse that she would keep taking her asthma and allergy medications as prescribed. Patient also asked about Prednisone and said that since she doesn't have a provider in [place] if she should take her Prednisone if she starts having respiratory symptoms? This nurse said that a message will be sent to Dr. Ma seeking clarification for plan for patient if she gets COVID-19. Patient said she is feeling fine right now and is social distancing. This nurse advised her to keep doing this. PLAN Will send to Dr. Ma to see if he can develop a plan for patient per her request. Disposition/Recommendation: Will route message to Dr. Ma. . Information/Education: patient/caller able to teach back. Caller agreeable to plan of care: yes. The following references were used: nursing clinical judgment and Dr. ma. Telephone Encounter - Karina Perdomo - 01/08/2020 2:09 PM CDT She is in [place]. She asks how she should take her meds if she gets COVID-19. documented in this encounter Plan of Treatment Not on filedocumented as of this encounter Visit Diagnoses Not on filedocumented in this encounter Care Teams Information Security Manager Relationship Specialty Start Date End Date Igor Horn P.A.-C. PCP - General 06/14/18 03/15/22 [address] [place] [phone] documented as of this encounter
--- OUTSIDE RECORDS SUMMARY | 2022-07-10 08:20 | XMS_ITS | Encounter Summary ---
:1940 Author Organization [facility] Address [address] [place] [address] Care Team Providers Name Role Phone Igor Horn P.A.-C. Primary Care Provider [phone] Encounter Details Date Type Department Care Team Description 04/07/2019 Orders Only Department of Family Tammy Garvin APR N, Medicine, [facility], C.N. P. in [facility] [address] [place] [phone] [place] [address] [phone] Social History Tobacco Use Types Packs/Day Years [...] have completed or the highest Roland, MEd, WASTE SALVAGER, MARIE) degree you have received? Sex Assigned at Date Recorded Female 06/26/2021 8:35 AM CDT documented as of this encounter Plan of Treatment Not on filedocumented as of this encounter Visit Diagnoses Not on filedocumented in this encounter Care Teams Open Hearth Worker Relationship Specialty Start Date End Date Igor Horn P.A.-C. PCP - General 06/14/18 03/15/22 [address] [place] [phone] documented as of this encounter
--- OUTSIDE RECORDS SUMMARY | 2022-07-10 08:20 | XMS_ITS | Encounter Summary ---
:1940 Author Organization [facility] Address [address] [place] [address] Care Team Providers Name Role Phone Igor Horn P.A.-C. Primary Care Provider [phone] Encounter Details Date Type Department Care Team Description 04/30/2019 Orders Only Department of [facility] Igor Horn, Medicine, [facility], [facility]tw[place]twan -[place] in [facility] [address] [place] [address] [place] [address] [phone] Social History Tobacco Use Types Packs/Day Years [...] or relatives? How often do you attend anabaptism or More than 4 times per year 03/16/2022 jewish services? Do you belong to any clubs or Yes 03/16/2022 organizations such as anabaptism groups, unions, fraternal or athletic groups, or school groups? How often do you attend meetings of the More than 4 times [facility] year 03/16/2022 clubs or organizations you belong [...] have completed or the highest Roland, MEd, ACCOUNT AUDITOR, MARIE) degree you have received? Sex Assigned at Date Recorded Female 06/26/2021 8:35 AM CDT documented as of this encounter Plan of Treatment Not on filedocumented as of this encounter Visit Diagnoses Not on filedocumented in this encounter Care Teams Public Relations Associate Relationship Specialty Start Date End Date Igor Horn P.A.-C. PCP - General 06/14/18 03/15/22 [address] [place] [phone] documented as of this encounter
--- OUTSIDE RECORDS SUMMARY | 2022-07-10 08:20 | XMS_ITS | Encounter Summary ---
:1940 Author Organization [facility] Address [address] [place] [address] Care Team Providers Name Role Phone Igor Horn P.A.-C. Primary Care Provider [phone] Reason for Referral Outpatient (Routine) - Closed Specialty Diagnoses / Procedures Referred By Contact Refer red To Contact Family Medicine Igor Horn P. A.-C. [address] [address] Referral ID Status Reason Start Date Expiration Date Visits Requ ested Visits Authorized [id number] Closed 02/12/2019 02/12/2020 1 1 Outpatient (Routine) - Closed Specialty Diagnoses / Procedures Referred By Contact Refer red To Contact Family Medicine Igor Horn P. A.-C. [address] [phone] Referral ID Status Reason Start Date Expiration Date Visits Requ ested Visits Authorized [id number] Closed 02/12/2019 02/12/2020 1 1 Reason for Visit Reason Comments Med Refill Annual medication renewal/re viewed for the year. Would like 90 day supply with the 3 ref ills. Breast Cancer Screening Patient states she would lik e to get a mammogram in [place]. Order is already in chart. Outpatient (Routine) - Closed Specialty Diagnoses / Procedures Referred By Contact Refer red To Contact Family Medicine Igor Horn P. A.-C. [facility] [address] [place] [address] Referral ID Status Reason Start Date Expiration Date Visits Requ ested Visits Authorized [id number] Closed 08/25/2018 08/25/2019 1 1 Encounter Details Date Type Department Care Team Description 02/12/2019 Comprehensive Visit Department of Paige Hornli pidemia (Primary Dx); Family Medicine in [place], Hypothyro idism Primary; [place], [place] Shivam Pain Knee Right; [address] [facility] [address] [facility] Rhinitis Allergic; [place], [place] Asthma Intrinsi c ([facility]); [phone] Hypertension Essential Primary; [phone] [facility] (Work) Social History Tobacco Use Types Packs/Day Years [...] More than 4 times per year 03/16/2022 anabaptist services? Do you belong to any clubs or Yes 03/16/2022 organizations such as sabianist groups, unions, fraternal or athletic groups, or school groups? How often do you attend meetings of the More than 4 times charisma navarro year 03/16/2022 clubs or organizations you belong [...] or slept in a fpc (including now)? Sex Assigned at Date Recorded Female 06/26/2021 8:35 AM CDT documented as of this encounter Last Filed Vital Signs Vital Sign Reading Time Taken Comments Blood Pressure 138/72 02/12/2019 8:47 AM CDT Pulse 78 02/12/2019 8:39 AM CDT Temperature 36.6 ??C (97.9 ??F) 02/12/2019 8:39 AM CDT Respiratory Rate 16 02/12/2019 8:39 AM CDT Oxygen Saturation 98% 02/12/2019 8:39 AM CDT Inhaled Oxygen Concentration - - Weight 101 kg (221 lb 12.5 oz) 02/12/2019 8:39 AM CDT Height - - Body Mass Index 38.57 08/19/2018 2:24 PM GROWTH MEDIA MIXER MUSHROOM documented in this encounter H&P Notes Igor Horn P.A.-C. - 02/12/2019 8:45 AM CDT CHIEF COMPLAINT / REASON FOR VISIT Ainsley Cedeño is a 78 y.o. female who presents for evaluation of Med Refill (Annualmedication renewal/reviewed for the year. Would like 90 day supply with the 3 refills.) and Breast Cancer Screening (Patient states she would like to get a mammogram in [place]. Order is already in chart.). HISTORY OF PRESENT ILLNESS Ainsley presents today for her yearly history and physical. For the most part she has been in good health. She has asthma she sees a physician in [place] for this. She has hypertension this is well controlled she has hyperlipidemia this is well controlled she has hypothyroidism this is well controlled. She has multiple arthralgias particularly in her knees she is following with Orthopedics in [place] for this. She has allergies that are also pretty well controlled with Singulair. PAST MEDICAL HISTORY: Patient Active Problem List Diagnosis ??? Asthma Intrinsic (HCC) ??? Hypertension Essential Primary ??? 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 Hyperlipidemia ??? Hypothyroidism Primary ??? Pain Knee Right ??? Rhinitis Allergic PAST SURGICAL HISTORY: Past Surgical History: Procedure Laterality Date ??? DILATATION AND CURETTAGE ??? EPICONDYLECTOMY ELBOW Right 1985 right lateral ??? EXCISION OF PERIPHERAL NERVE [...] N/A 05/23/1993 >Removal. SOCIAL HISTORY: Social History Substance Use Topics ??? Smoking status: Never Smoker ??? Smokeless tobacco: Never Used ??? Alcohol use No Comment: very rarely FAMILY HISTORY: Family History Problem Relation Age [...] or enlarged lymph nodes. MEDICATIONS: Current Outpatient Prescriptions Medication Sig Dispense Refill ??? albuterol (VENTOLIN HFA) 90 mcg/actuation inhaler Inhale 1 puff every 4 (four) hours as needed for wheezing. 1 Inhaler 11 ??? amoxicillin (AMOXIL) 500 mg capsule Take 2,000 mg by mouth. ??? celecoxib (CeleBREX) 200 mg capsule Take 1 capsule (200 mg total) by mouth daily. With a meal. 90 capsule 3 ??? DOCOSAHEXANOIC ACID/EPA (FISH OIL ORAL) 3 (three) times a day. 2 in AM 1 capsule in PM ??? fluticasone (FLONASE) 50 mcg/actuation nasal spray Administer 1 spray into each nostril daily. (Patient taking differently: Administer 1 spray into each nostril as needed. ) 16 g 11 ??? fluticasone-salmeterol (ADVAIR DISKUS) 100-50 mcg/actuation diskus [...] taking differently: Take 10 mg by mouth as needed. ) 20 tablet 2 ??? triamcinolone (KENALOG) 0.1 % cream Apply topically 3 (three) times a day. (Patient taking differently: Apply topically 3 (three) times a day as needed. ) 30 g 11 ??? CALCIUM CARB/VIT D3/MINERALS (CALCIUM-VITAMIN D ORAL) [...] No reaction noted in Cerner OBJECTIVE Vitals: 02/12/19 0839 02/12/19 0847 BP: 144/72 138/72 BP Location: Left arm Left arm Patient Position: Sitting Sitting Cuff Size: Large Large Pulse: 78 Resp: 16 Temp: 36.6 ??C TempSrc: Temporal SpO2: 98% Weight: 101 kg Body mass index is 38.57 kg/m??. PHYSICAL EXAMINATION General: Patient appears in no acute distress. ENT: TMs no erythema. Throat no erythema. Neck: No lymphadenopathy. No thyroid masses. Heart: Regular rate and rhythm. 2/6 systolic crescendo decrescendo murmur auscultated best at the right sternal border No murmurs. Lungs: Clear to auscultation. Abdomen: Soft and nontender to palpation. Breast exam: Patient declined IMPRESSION / REPORT / PLAN #1 Hyperlipidemia This is well controlled I renewed her statin #2 Hypothyroidism Primary This is well controlled I renewed her Synthroid #3 Pain Knee Right She will continue to follow with Orthopedics #4 Rhinitis Allergic This is well controlled on Singulair #5 Asthma Intrinsic (HCC) She will continue to follow with her ring sewer in [place] she uses her inhalers regularly #6 Hypertension Essential Primary This is well controlled I renewed her medications today #7 Murmur Heart I am going to set her up with an echocardiogram am going to see her back to discuss the results and follow-up Igor Horn P.A.-C. documented in this encounter Miscellaneous Notes Addendum Note - Joshua Rubin L.P.N. - 02/12/2019 8:45 AM CDT Addended by: JOSHUA RUBIN on: 02/12/2019 11:31 AM Modules accepted: Orders documented in this encounter Plan of Treatment Scheduled Referrals Name Type Priority Associated Diagnoses Order S chedule Family Medicine Outpatient Referral Routine Expec michelle: office visit 02/13/2020 (clinic) (Approximate), Expires: 02/12/2022 Family Medicine Outpatient Referral Routine Expec michelle: office visit 02/12/2019 (clinic) (Approximate), Expires: 02/12/2022 documented as of this encounter Results S-TSH [...] supplements. ??If the result does not ma tch clinical observations, repeat testing after patient refrains fr om the use of supplements for at least 12 hours. Specimen Anatomical Collection Method Collection Time Receive d Time (Source) Location / / Volume Laterality Blood (Blood, 02/18/2020 9:05 AM 02/18/20 20 Venous) CDT 10:30 AM CDT Igor Horn P.A.-C. LAB BLOOD ADD-ON Performing Organization Address City/State/ZIP Code Phon e Number [facility]- [address] [place] [address] [place] [address] System in [place] [address] (ABNORMAL) Lipid Panel (02/18/2020 9:05 AM CDT) athologist Signature Cholesterol, 159 mg/dL 02/18/2020 OW[place] [...] Organization Address City/State/ZIP Code Phon e Number [facility]- [address] [place] [address] [place] [address] System in [place] [address] [facility] Comprehensive Metabolic Panel (02/18/2020 9:05 AM CDT) athologist Signature Potassium, P 4.2 3.6 - [...] CDT eGFR-Black/Afric 89 >=60 02/18/2020 OW[place] an [place] mL/min/BSA 11:02 AM CDT Comment: ----ADDITIONAL INFORMATION---- [...] 20 Venous) CDT 10:29 AM CDT Igor Roethler P.A.-C. LAB BLOOD ADD-ON Performing Organization Address City/State/ZIP Code Phon e Number [facility]- [address] [place] [address] [place] [address] System in [place] [address] (TTE) 2D ECHO DOPPLER COLOR (03/18/2019 2:54 PM CDT) [facility] Method Time Signature Ejection Fraction 66 MC [...] in this encounter Visit Diagnoses Diagnosis Hyperlipidemia - Primary Hypothyroidism Primary Pain Knee Right Rhinitis Allergic Asthma Intrinsic (HCC) Hypertension Essential Primary Murmur Heart Murmur Heart documented in this encounter Care Teams Board Filler Relationship Specialty Start Date End Date Igor Horn P.A.-C. PCP - General 06/14/18 03/15/22 [address] [place] [address] documented as of this encounter
--- OUTSIDE RECORDS SUMMARY | 2022-07-10 08:20 | XMS_ITS | Encounter Summary ---
:1940 Author Organization [facility] Address [address] [place] [address] Care Team Providers Name Role Phone Igor Horn P.A.-C. Primary Care Provider [phone] Reason for Visit Reason Comments Med Refill Encounter Details Date Type Department Care Team Description 02/09/2020 Refill Department of Family Medicine Igor Rodríguez P.A.-C. Med Refill in [place], [place] 225 [facility] [address] [place] [address] [place] [address] [phone] Social History Tobacco Use Types Packs/Day Years [...] More than 4 times per year 03/16/2022 pentecostalism services? Do you belong to any clubs [...] have completed or the highest Roland, MEd, BAKERY TEAM MEMBER, MARIE) degree you have received? Sex Assigned at Date Recorded Female 06/26/2021 8:35 AM CDT documented as of this encounter Plan of Treatment Not on filedocumented as of this encounter Visit Diagnoses Not on filedocumented in this encounter Care Teams Records Associate Relationship Specialty Start Date End Date Igor Horn P.A.-C. PCP - General 06/14/18 03/15/22 [address] [place] [phone] documented as of this encounter
--- OUTSIDE RECORDS SUMMARY | 2022-07-10 08:21 | XMS_ITS | Encounter Summary ---
:1940 Author Organization [facility] Address [address] [place] [address] Care Team Providers Name Role Phone Igor Horn P.A.-C. Primary Care Provider [phone] Reason for Visit Reason Onset Date Comments Asthma flare update 10/31/2018 Encounter Details Date Type Department Care Team Description 10/31/2018 Clinical Communication Division of Arnulfo Ma flare update Allergic Diseases Valdemar Olivo M.D. in [address] [place] [address] [place], [place] [phone] (Work) [phone] Social History Tobacco Use Types Packs/Day Years [...] this encounter Miscellaneous Notes Telephone Encounter - Jessi Parker R.N. - 10/31/2018 4:13 PM CST SUBJECTIVE CHIEF COMPLAINT / REASON FOR CALL Asthma flare update INFORMATION DISCUSSED Placed follow-up call to patient with Dr. Ma's recommendations as noted below: Notes reviewed. Would recommend continuing the prednisone 5 mg twice a day for the next 3 days, Then if doing well, can decrease to 5 mg once a day for three days, then can stop. ThanksDr. Ma Patient voiced understanding and is agreement with the plan. Patient requests a Patient Portal message with the same information to refer back to. Author will send online message as well. She had no further questions at this time. PLAN Disposition/Recommendation: self-care appropriate at this time . Education: patient/caller able to teach back Caller agreeable to plan of care: yes The following references were used: provider Dr. Ma IC TRANSPORTATION INSPECTOR Telephone Encounter - Valdemar Ma M.D. - 10/31/2018 3:54 PM PUBLIC TRANSPORTATION INSPECTOR Cale Parrish, Notes reviewed. Would recommend continuing the prednisone 5mg twice a day for the next 3 days, Then if doing well, can decrease to 5mg once a day for three days, then can stop. Thanks, Dr. Ma IC TRANSPORTATION INSPECTOR Telephone Encounter - Jodie Shaw R.N. - 10/31/2018 3:18 PM CST Returned a call to Ainsley to get an update on her asthma flare. She states that she is still taking her Advair one puff twice daily as recommended by Dr. Ma 10/28/18 along with the two extra days of 10 mg Prednisone. Ainsley denies fever, chest tightness/shortness of breath, and states that her wheezing has improved despite its brief recurrence last night after which she used her albuterol once. Ainsley states that she is using her albuterol less (none yet today and twice yesterday). Ainsley states that she is experiencing increased nose- blowing which is mainly clear in color along with throat clearing which improves as the day goes on. She states that she continues to use her Flonase one spray in eachnostril every day. Ainsley states that she did take another dose of Prednisone 10 mg this morning as she feels that she is not quite back to normal. Ainsley would like to know if Dr. Ma would agree to her taking 5 mg of Prednisone twice daily for a few more days, and if so should she quit all at once,or should she taper off of the prednisone. Ainsley was informed that Dr. Ma would be provided with her information to review; Ainsley is aware that Dr. Ma is not at the [facility] today. Ainsley is seeking his recommendations prior to the upcoming weekend. IC TRANSPORTATION INSPECTOR Telephone Encounter - Karina Perdomo - 10/31/2018 9:51 AM CST Calling with update on asthma flare. Need further guidance for the weekend. IC TRANSPORTATION INSPECTOR documented in this encounter Plan of Treatment Not on filedocumented as of this encounter Visit Diagnoses Not on filedocumented in this encounter Care Teams Vest Presser Relationship Specialty Start Date End Date Igor Horn P.A.-C. PCP - General 06/14/18 03/15/22 [address] [place] [address] documented as of this encounter
--- OUTSIDE RECORDS SUMMARY | 2022-07-10 08:21 | XMS_ITS | Encounter Summary ---
:1940 Author Organization [facility] Address [address] [place] [address] Care Team Providers Name Role Phone Igor Horn P.A.-C. Primary Care Provider [phone] Encounter Details Date Type Department Care Team Description 12/25/2018 Clinical Communication Department of [facility], Internal Medicine in [place], [place] [address] [address] [phone] Social History Tobacco Use Types Packs/Day Years [...] or relatives? How often do you attend christian or More than 4 times per year 03/16/2022 restoration services? Do you belong to any clubs or Yes 03/16/2022 organizations such as christian groups, unions, fraternal or athletic groups, or [...] or slept in a jail (including now)? Sex Assigned at Date Recorded Female 06/26/2021 8:35 AM CDT documented as of this encounter Plan of Treatment Not on filedocumented as of this encounter Visit Diagnoses Not on filedocumented in this encounter Care Teams Performance Consultant Relationship Specialty Start Date End Date Igor Horn P.A.-C. PCP - General 06/14/18 03/15/[address] [place] [phone] documented as of this encounter
--- OUTSIDE RECORDS SUMMARY | 2022-07-10 08:21 | XMS_ITS | Encounter Summary ---
:1940 Author Organization [facility] Address [address] [place] [address] Care Team Providers Name Role Phone Igor Horn P.A.-C. Primary Care Provider [phone] Reason for Visit Reason Onset Date Comments annual wellness scheduling 01/20/2019 Encounter Details Date Type Department Care Team Description 01/20/2019 Clinical Communication Department of carmelo Nj Family Medicine, [place] [facility], in [address] [phone] Social History Tobacco Use Types Packs/Day Years [...] More than 4 times per year 03/16/2022 scientology services? Do you belong to any clubs [...] or slept in a half-way (including now)? Sex Assigned at Date Recorded Female 06/26/2021 8:35 AM CDT documented as of this encounter Miscellaneous Notes Telephone Encounter - Alexia Nj R.N. - 01/20/2019 4:11 PM CDT Called patient to discuss scheduling a Medicare Annual Wellness Visit. Patient not interested at this time. Can call in one year. documented in this encounter Plan of Treatment Not on filedocumented as of this encounter Visit Diagnoses Not on filedocumented in this encounter Care Teams Thermo Processor Relationship Specialty Start Date End Date Igor Horn P.A.-C. PCP - General 06/14/18 03/15/22 [address] [place] [phone] documented as of this encounter
--- OUTSIDE RECORDS SUMMARY | 2022-07-10 08:21 | XMS_ITS | Encounter Summary ---
:1940 Author Organization [facility] Address [address] [place] [address] Care Team Providers Name Role Phone Igor Horn P.A.-C. Primary Care Provider [phone] Encounter Details Date Type Department Care Team Description 12/25/2018 Clinical Communication Department of Igor Byrd, [facility], [facility], in [address] [phone] [place], [place] [phone] (Work) [phone] Social History Tobacco Use Types Packs/Day Years [...] this encounter Miscellaneous Notes Telephone Encounter - Fide Durant L.P.N. - 12/26/2018 8:30 AM CDT Portal message sent to patient notifying her that the order has been placed. Telephone Encounter - Lauren Hidalgo - 12/25/2018 9:01 AM CDT Reason for Communication: Pt would like to do her mammo is [place] Current Can Nursing/Provider leave a detailed message:na Did the patient refuse triage through Nurse line? (for symptom based concerns):na Action Needed: Please switch mammo order to [facility], pt will check thru the portal, please add [place] number in message Name of Medication (if relevant): na documented in this encounter Plan of Treatment Not on filedocumented as of this encounter Visit Diagnoses Diagnosis Screening Mammogram Breast Cancer - Prim haroldo documented in this encounter Care Teams Production Clerks Supervisor Relationship Specialty Start Date End Date Igor Horn P.A.-C. PCP - General 06/14/18 03/15/[address] [place] [phone] documented as of this encounter
--- OUTSIDE RECORDS SUMMARY | 2022-07-10 08:21 | XMS_ITS | Encounter Summary ---
:1940 Author Organization [facility] Address [address] [place] [address] Care Team Providers Name Role Phone Aneta Whitaker APRN, C.N.Lizabeth, M.S.N. Primary Care Pr ovid Encounter Details Date Type Department Care Team Description 10/11/2017 Orders Only Urgent Care in [facility] [place] kate [place], [place] MISA C.N.Lizabeth, M.S.N. [address] [place] [address] [place] [phone] (Wo rk) Social History Tobacco Use Types Packs/Day Years Used Date Smoking Tobacco: Never Smokeless Tobacco: Never Alcohol Use Standard Drinks/Week Comments Defer 0 (1 standard drink = 0.6 oz pure alcoho l) Alcohol Habits Answer Date Recorded How often do you have a drink containing Monthly or less 03/16/2022 alcohol? How many drinks containing alcohol do you have Patient does not drink 03/16/2022 on a typical day when you are drinking? How often do you have six or more drinks on one Never 03/16/2022 occasion? Comment: Not asked Social Isolation Answer Date Recorded In a typical week, how many times do you More than three bisi es a week 03/16/2022 talk on the phone with family, friends, or neighbors? How often do you get together with friends Once a week 03/16/2022 or relatives? How often do you attend faith or More than 4 times per year 03/16/2022 buddhism services? Do you belong to any clubs or Yes 03/16/2022 organizations such as faith groups, unions, fraternal or athletic groups, or [...] or slept in a fci (including now)? Sex Assigned at Date Recorded Female 06/26/2021 8:35 AM CDT documented as of this encounter Plan of Treatment Not on filedocumented as of this encounter Visit Diagnoses Not on filedocumented in this encounter Care Teams Rn Discharge Relationship Specialty Start Date End Date Aneta Whitaker APRN, C.N.P., PCP - General 06/13/18 M.S.N. [address] [place] [address] documented as of this encounter
--- OUTSIDE RECORDS SUMMARY | 2022-07-10 08:21 | XMS_ITS | Encounter Summary ---
:1940 Author Organization [facility] Address [address] [place] [address] Care Team Providers Name Role Phone Aneta Whitaker APRN, C.N.P., M.S.N. Primary Care Pr ovider Reason for Visit Reason Comments Med Refill Encounter Details Date Type Department Care Team Description 11/05/2017 Refill Department of Family Medicine Aneta Whitaker, Med Refill in [place], [place] Renée BYNUM, M.S.N. [address] [place] [address] [place] [phone] (Wo rk) Social History Tobacco Use Types [...] More than 4 times per year 03/16/2022 yazdanism services? Do you belong to any clubs [...] place to sleep or slept in a detention (including now)? Sex Assigned at Date Recorded Female 06/26/2021 8:35 AM CDT documented as of this encounter Plan of Treatment Not on filedocumented as of this encounter Visit Diagnoses Not on filedocumented in this encounter Care Teams Building Coordinator Relationship Specialty Start Date End Date Aneta Whitaker APRN, C.N.P., PCP - General 06/13/18 M.S.N. [address] [place] [address] documented as of this encounter
--- OUTSIDE RECORDS SUMMARY | 2022-07-10 08:21 | XMS_ITS | Encounter Summary ---
:1940 Author Organization [facility] Address [address] [place] [address] Care Team Providers Name Role Phone Aneta Whitaker APRN C.N.PAntwan, M.S.N. Primary Care Pr ovider Encounter Details Date Type Department Care Team Description 10/14/2017 Abstract Department of Family Medicine, Provider, Historical [facility], in [place], [place] [address] [place] [address] Social History Tobacco Use Types Packs/Day Years [...] More than 4 times per year 03/16/2022 episcopalian services? Do you belong to any clubs [...] or slept in a retirement (including now)? Sex Assigned at Date Recorded Female 06/26/2021 8:35 AM CDT documented as of this encounter Plan of Treatment Not on filedocumented as of this encounter Visit Diagnoses Not on filedocumented in this encounter Care Teams Claims Collector Relationship Specialty Start Date End Date Aneta Whitaker APRN, C.N.P., PCP - General 06/13/18 M.S.N. [address] [place] [address] documented as of this encounter
--- OUTSIDE RECORDS SUMMARY | 2022-07-10 08:21 | XMS_ITS | Encounter Summary ---
:1940 Author Organization [facility] Address [address] [place] [address] Care Team Providers Name Role Phone Igor Horn P.A.-C. Primary Care Provider [phone] Reason for Visit Reason Onset Date Comments Recent asthma flare 10/27/2018 Encounter Details Date Type Department Care Team Description 10/27/2018 Clinical Communication Division of Selena Ma asthma flare Allergic Diseases Valdemar Olivo M.D. in [address] [place] [address] [place], [place] [phone] (Work) [phone] Social History Tobacco Use Types Packs/Day Years [...] More than 4 times per year 03/16/2022 yarsani services? Do you belong to any clubs [...] or slept in a halfway (including now)? Sex Assigned at Date Recorded Female 06/26/2021 8:35 AM CDT documented as of this encounter Miscellaneous Notes Telephone Encounter - Valdemar Ma M.D. - 10/28/2018 3:14 PM HIGH SCHOOL HISTORY TEACHER Note reviewed. Recommend continuing the prednisone 10mg day for two more days. If continuing to do well can stop then. Would keep the Advair at 1 puff twice daily for two weeks. Thanks, Dr. Ma SCHOOL HISTORY TEACHER Telephone Encounter - Alpa De R.N. - 10/27/2018 10:52 AM HIGH SCHOOL HISTORY TEACHER HISTORY OF PRESENT ILLNESS A phone call was returned to Ms. Cedeño who is currently wintering in [place], [place]. [facility] that one week ago she noted some wheeze at night. She would take a puff or two of albuterol and symptoms would resolve. She has also had some cough, mostly non-productive. Ms. Cedeño denies a fever or having symptoms of a cold. Yesterday she initiated prednisone, 5 mg in the am and 10 mg in the pm. She did not awaken with wheeze and feels much improved. She also increased her Advair to 1 puff twice daily. Ms. Cedeño was at her children's for approximately three weeks and was on oral prednisone during the extended stay. She returned to [place] on October 05, 2018. She is seeking recommendationsfrom Dr. Ma. She is aware that he is not in the [facility]. The following portions of the patient's history were reviewed and updated as appropriate: current medications, medical history and problem list. ASSESSMENT / PLAN Patient information will be forwarded to Dr. Ma for review. Disposition/Recommendation: provider notified and awaiting provider recommendations Education: patient/caller able to teach back Caller agreeable to plan of care: yes The following references were used: nursing clinical judgement SCHOOL HISTORY TEACHER Telephone Encounter - Karina Perdomo - 10/27/2018 10:41 AM CST She had an asthma flare but [place]. She wants to know what to do going forward. SCHOOL HISTORY TEACHER documented in this encounter Plan of Treatment Not on filedocumented as of this encounter Visit Diagnoses Not on filedocumented in this encounter Care Teams Pad Extractor Tender Relationship Specialty Start Date End Date Igor Horn P.A.-C. PCP - General 06/14/18 03/15/22 [address] [place] [phone] documented as of this encounter
--- OUTSIDE RECORDS SUMMARY | 2022-07-10 08:21 | XMS_ITS | Encounter Summary ---
:1940 Author Organization [facility] Address [address] [place] [address] Care Team Providers Name Role Phone Igor Horn P.A.-C. Primary Care Provider [phone] Reason for Visit Reason Comments Asthma Encounter Details Date Type Department Care Team Description 08/19/2018 Clinical Support Division of Allergic Valdemar Ma M.D. [address] [place] [phone] Asthma (HCC) Diseases in [place], Tanja Colmenares, R.N. [address] [place] [phone] [place] [address] [place] [phone] Social History Tobacco Use Types Packs/Day Years [...] slept in a nursing home (including now)? Sex Assigned at Date Recorded Female 06/26/2021 8:35 AM CDT documented as of this encounter Plan of Treatment Not on filedocumented as of this encounter Procedures Procedure Name Priority Date/Time Associated Diagnosis Comme nts ALI SPIROMETRY Routine 08/19/2018 1:35 PM Asthma (HCC) Results for this ERGONOMICS CONSULTANT procedure are i n the results section . documented in this encounter Results Spirometry (08/19/2018 1:35 PM ERGONOMICS CONSULTANT) P athologist Signature VC MAX POST 2.29 1.87 - 08/27/2018 [facility] 3.42 L 9:18 AM ERGONOMICS CONSULTANT SUITE PostFEV1 1.57 1.44 - 08/27/2018 [facility] 2.57 L 9:18 AM ERGONOMICS CONSULTANT SUITE FEV1/FVC POST 68.89 63.43 - 08/27/2018 [facility] 89.68 % 9:18 AM ERGONOMICS CONSULTANT SUITE PostFVC 2.28 1.87 - 08/27/2018 [facility] 3.42 L 9:18 AM ERGONOMICS CONSULTANT SUITE FET POST 7.68 sec 08/27/2018 [facility] 9:18 AM ERGONOMICS CONSULTANT SUITE PEF POST 4.51 2.65 - [facility]27[facility]2018 [facility]/s 9:18 AM ERGONOMICS CONSULTANT SUITE FEF 25-75 % 0.96 0.72 - 08/27/2018 [facility] POST 3.04 L/s 9:18 AM ERGONOMICS CONSULTANT SUITE VC MAX PRE 2.23 1.87 - 08/27/2018 [facility] 3.42 L 9:18 AM ERGONOMICS CONSULTANT SUITE FEV1 1.45 1.44 - 08/27/2018 [facility] 2.57 L 9:18 AM ERGONOMICS CONSULTANT SUITE FEV1/FVC 64.81 63.43 - 08/27/2018 [facility] 89.68 % 9:18 AM ERGONOMICS CONSULTANT SUITE FVC 2.23 1.87 - 08/27/2018 [facility] 3.42 L 9:18 AM ERGONOMICS CONSULTANT SUITE FET PRE 7.19 sec 08/27/2018 [facility] 9:18 AM ERGONOMICS CONSULTANT SUITE PEF PRE 4.20 2.65 - 08/27/2018 [facility] 7.95 L/s 9:18 AM ERGONOMICS CONSULTANT SUITE BJS69-74% 0.84 0.72 - 08/27/2018 [facility] 3.04 L/s 9:18 AM ERGONOMICS CONSULTANT SUITE SUBSTANCE POST NaN 08/27/2018 [facility] 9:18 AM ERGONOMICS CONSULTANT SUITE DOSE POST NaN 08/27/2018 [facility] 9:18 AM ERGONOMICS CONSULTANT SUITE % PRED VC MAX 2.23 1.87 - 08/27/2018 [facility] 3.42 % 9:18 AM ERGONOMICS CONSULTANT SUITE FEV1% 1.45 1.44 - 08/27/2018 [facility] 2.57 % 9:18 AM ERGONOMICS CONSULTANT SUITE % PRED FEV1/FVC 64.81 63.43 - 08/27/2018 [facility] 89.68 % 9:18 AM ERGONOMICS CONSULTANT SUITE FVC% 2.23 1.87 - 08/27/2018 [facility] 3.42 % 9:18 AM ERGONOMICS CONSULTANT SUITE % PRED PEF 4.20 2.65 - 08/27/2018 [facility] 7.95 % 9:18 AM ERGONOMICS CONSULTANT SUITE % PRED FEF 0.84 0.72 - 08/27/2018 [facility] 25-75% 3.04 % 9:18 AM ERGONOMICS CONSULTANT SUITE PRED VC MAX NaN 1.87 - 08/27/2018 [facility] 3.42 L 9:18 AM ERGONOMICS CONSULTANT SUITE PRED FEV 1 NaN 1.44 - 08/27/2018 [facility] 2.57 L 9:18 AM ERGONOMICS CONSULTANT SUITE PRED FEV1/FVC NaN 63.43 - 08/27/2018 [facility] 89.68 % 9:18 AM ERGONOMICS CONSULTANT SUITE PRED FVC NaN 1.87 - 08/27/2018 [facility] 3.42 L 9:18 AM ERGONOMICS CONSULTANT SUITE PRED PEF NaN 2.65 - 08/27/2018 [facility] 7.95 L/s 9:18 AM ERGONOMICS CONSULTANT SUITE PRED FEF 25-75% NaN 0.72 - 08/27/2018 [facility] 3.04 L/s 9:18 AM ERGONOMICS CONSULTANT SUITE Specimen (Source) Anatomical Collection Method Collection Time Re ceived Time Location / / Volume Laterality 08/19/2018 1:35 PM ERGONOMICS CONSULTANT Valdemar Ma M.D. PFT ORDERABLES Performing Organization Address City/State/ZIP Code Phon e Number [facility] [address] [facility] [facility] [address] documented in this encounter Visit Diagnoses Diagnosis Asthma (HCC) documented in this encounter Care Teams Rn Ostomy Relationship Specialty Start Date End Date Igor Horn P.A.-C. PCP - General 06/14/18 03/15/22 [address] [place] [phone] documented as of this encounter
--- OUTSIDE RECORDS SUMMARY | 2022-07-10 08:21 | XMS_ITS | Encounter Summary ---
:1940 Author Organization [facility] Address [address] [place] [address] Care Team Providers Name Role Phone Igor Horn P.A.-C. Primary Care Provider [phone] Encounter Details Date Type Department Care Team Description 07/28/2018 Nurse Only Department of Family Medicine Francesco De Jesus, [place], [place] L.P.N. [address] [facility] [address] [place] [address] [place], [place] [phone] Social History Tobacco Use Types Packs/Day [...] slept in a skilled nursing (including now)? Sex Assigned at Date Recorded Female 06/26/2021 8:35 AM CDT documented as of this encounter Plan of Treatment Not on filedocumented as of this encounter Visit Diagnoses Not on filedocumented in this encounter Care Teams Food And Beverage Assistant Manager Relationship Specialty Start Date End Date Igor Horn P.A.-C. PCP - General 06/14/18 03/15/[address] [place] [phone] documented as of this encounter
--- OUTSIDE RECORDS SUMMARY | 2022-07-10 08:21 | XMS_ITS | Encounter Summary ---
:1940 Author Organization [facility] Address [address] [place] [address] Care Team Providers Name Role Phone Aneta Whitaker APRN C.N.PAntwan, M.S.N. Primary Care Pr ovider Reason for Visit Reason Comments Medicare Annual Wellness Visit Subsequent Appointment Request (Routine) - Closed Specialty Diagnoses / Procedures Referred By Contact Refer red To Contact Family Medicine Referral ID Status Reason Start Date Expiration Date Visits Requ ested Visits Authorized [id number] Closed 01/23/2018 07/22/2018 1 1 Encounter Details Date Type Department Care Team Description 02/06/2018 Nurse Only Department of Family Anna Marie Babcock Med [facility] Annual Medicine, [place] B.SBenedict, R.N. Wellness Visit Clinic, in [address] [phone] Social History Tobacco Use Types Packs/Day Years [...] or slept in a usp (including now)? Sex Assigned at Date Recorded Female 06/26/2021 8:35 AM CDT documented as of this encounter Last Filed Vital Signs Vital Sign Reading Time Taken Comments Blood Pressure 138/76 02/06/2018 1:55 PM CDT Pulse 78 02/06/2018 1:24 PM CDT Temperature - - Respiratory Rate 16 02/06/2018 1:24 PM CDT Oxygen Saturation - - Inhaled Oxygen Concentration - - Weight 98 kg (216 lb 0.8 oz) 02/06/2018 1:24 PM CDT Height 163 cm (5' 4.17) 02/06/2018 1:24 PM CDT Body Mass Index 36.89 02/06/2018 1:24 PM CDT documented in this encounter Patient Instructions Patient InstructionsAnna Marie Babcock, R.N. - 02/06/2018 1:00 PM CDT Treatment plan: Continue with strenght training and water aerobics, maintain healthy diet. Recommendations: Follow up in one year with RN for annual wellness visit Provider follow up appt: None at this time. documented in this encounter Progress Notes Anna Marie Babcock, R.N. - 02/06/2018 1:00 PM CDT HEALTH ASSESSMENT SUBJECTIVE REASON FOR VISIT: Subsequent Annual Wellness Visit REVIEW OF SYSTEMS: Cardiovascular: none Respiratory:negative Known YOGI: No; NOT diagnosed with YOGI Gastrointestinal symptoms: None Genitourinary symptoms: no concerns Musculoskeletal symptoms: negative Skin symptoms: negative Neurological symptoms: negative Eye symptoms: No visual changes Visual acuity: Glasses, Vision screening - Date of last exam: 2016 and Gaucoma screen was completed at last eye exam: yes Ear symptoms: Other: no concerns, has bilateral hearing aids Nose symptoms: Other: no concerns LANGUAGES: [place] VITALS: BP 146/86 (BP Location: Left arm, Patient Position: Sitting, Cuff Size: Regular) Pulse 78 Resp 16 Ht 163 cm Wt 98 kg BMI 36.89 kg/m?? ALLERGIES: Allergies Allergen Reactions ??? Cat Dander Other (see comments) No reaction noted in [facility] ??? Codeine Other (see comments) No reaction noted in [place] ??? House Dust Mite Other (see comments) No reaction noted in [place] ??? Hydrocodone GI intolerance ??? Prochlorperazine Other (see comments) No reaction noted in [place] MEDICATION MANAGEMENT: How do you set up your medications? Without help- has separate container for daily and evening medications and it is set up weekly On how february days over the past week did you forget to take 1 or more medications as prescribed? 0 Current Outpatient Prescriptions Medication Sig Dispense Refill ??? ADVAIR DISKUS 100-50 mcg/act diskus inhaler 1 puff daily. ??? CALCIUM CARB/VIT D3/MINERALS (CALCIUM-VITAMIN D ORAL) Take 1 tablet by mouth 2 (two) times a day. ??? celecoxib (for_CeleBREX) 200 mg capsule Take 1 capsule (200 mg total) by mouth daily. With a meal. 90 capsule 3 ??? DOCOSAHEXANOIC ACID/EPA (FISH OIL ORAL) 3 (three) times a day. 2 in AM 1 capsule in PM ??? fluticasone (for_FLONASE) 50 mcg/actuation nasal spray 1 spray as needed. ??? hydroCHLOROthiazide (for_HYDRODIURIL) 25 mg tablet Take 1 tablet (25 mg total) by mouth daily. 90 tablet 3 ??? levothyroxine (for_SYNTHROID, LEVOTHROID) 75 mcg tablet Take 1 tablet (75 mcg total) by mouth daily. 90 tablet 3 ??? lisinopril (for_PRINIVIL,ZESTRIL) 30 mg tablet Take 1 tablet (30 mg total) by mouth daily. 90 tablet 3 ??? montelukast (for_SINGULAIR) 10 mg tablet Take 10 mg by mouth daily. ??? pravastatin (for_PRAVACHOL) 40 mg tablet Take 1.5 tablets (60 mg total) by mouth at bedtime. 90 tablet 3 ??? predniSONE (for_DELTASONE) 10 mg tablet Take 10 mg by mouth as needed. ??? triamcinolone (for_KENALOG) 0.1 % cream triamcinolone 0.1% topical cream See Instructions, 1 appTopical prn listed in doc by history, 15 gm, 0 Refill(s) ??? VENTOLIN HFA 90 mcg/actuation inhaler 1 puff as needed. ??? amoxicillin (for_AMOXIL) 500 mg capsule Take 2,000 mg by mouth. No current facility-administered medications for this visit. HISTORY: No past medical history on file. Past Surgical History: Procedure Laterality Date ??? EPICONDYLECTOMY ELBOW Right 1985 right lateral [...] CONVERTED SHX (SEE COMMENT) N/A 05/23/1993 >Removal. Family History Problem Relation Age of Onset ??? Hypertension Father ??? Asthma Father ??? Lung cancer Father ??? Lung cancer Brother ??? Hypertension Brother ??? Heart attack Mother DEPENDENT HABITS: Social History Substance Use Topics ??? Smoking status: Never Smoker ??? Smokeless tobacco: Never Used ??? 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 PHQ-2 PHQ-2 Score: 0 PHQ-9 Mini Cog Mini Cognitive Exam Word Recall: 3 Mini Cog Exam Result: Non-demented Mini Cog Exam Comment: clock drawn appropriately NUTRITION: Nutrition risk factors by history: None Home diet: Low carbohydrate Meal pattern: Breakfast everyday or most days and 2-3 meals per day Feeding ability: Complete independence Eating difficulties:None Appetite: Good Nutritional Plan: Limit dietary fat/cholesterol EXERCISE: cardiovascular workout on exercise equipment - 3 days/week for 60 minutes/day strength training - 3 days/week for 60 minutes/day FUNCTIONAL/HOME ENVIRONMENT History of falls: Fall Risk Scale and Assessments Have you fallen in the last year?: No Home Environment note: Lives in [place] for warm months, in the cooler months lives in [place]. Has railings in homes for balance and keeping steady, working CO2 and fire detectors, always has a seatbelt on in the car, no firearms present in the house. Living situation: lives at home with alone Current daily living assistance: None Home equipment: None Mobility assistance: Independent Gait: Steady, Other: always aware of being extra steady History of falls: no falls within the last year; Home Environment Note: see above Sensory Deficits: None Recent Visual Changes: None Corrective Devices: Glasses, Hearing aid, left and Hearing aid, right Vision, hearing, mobility adequate to meet safety needs: yes; Safety Comment: no concerns Current home treatments: None Special Services and Community Resources: None Professional services: None Timed Up and Go Test: Timed Up and Go (TUG): 12 SECONDS ADVANCE DIRECTIVE: No Advance Directive declined Goals None Treatment plan: Continue with strenght training and water aerobics, maintain healthy diet. Recommendations: Follow up in one year with RN for annual wellness visit Provider follow up appt: None at this time. Preventative screening checklist reviewed and updated: yes Provider notified: No Anna Marie Babcock R.N. documented in this encounter Plan of Treatment Not on filedocumented as of this encounter Visit Diagnoses Diagnosis Annual Medicare Examination Return - [facility] documented in this encounter Care Teams Bench Molder Apprentice Relationship Specialty Start Date End Date Sherman, Aneta Rodriguez APRN, C.N.P., PCP - General 06/13/18 M.S.N. [address] [place] [phone] documented as of this encounter
--- OUTSIDE RECORDS SUMMARY | 2022-07-10 08:21 | XMS_ITS | Encounter Summary ---
:1940 Author Organization [facility] Address [address] [place] [address] Care Team Providers Name Role Phone Igor Horn P.A.-C. Primary Care Provider [phone] Encounter Details Date Type Department Care Team Description 08/20/2018 Orders Only Department of [facility] Igor Horn, Medicine, [facility], PAntwanAAntwan Jones in [facility] [address] [place] [address] [place] [address] [phone] Social History Tobacco Use Types Packs/Day Years [...] or relatives? How often do you attend muslim or More than 4 times per year 03/16/2022 zoroastrianism services? Do you belong to any clubs or Yes 03/16/2022 organizations such as muslim groups, unions, fraternal or athletic groups, or school groups? How often do you attend meetings of the More than 4 times [facility] year 03/16/2022 clubs or organizations [...] on filedocumented in this encounter Care Teams Window Machine Operator Relationship Specialty Start Date End Date Igor Horn P.A.-C. PCP - General 06/14/18 03/15/22 [address] [place] [address] documented as of this encounter
--- OUTSIDE RECORDS SUMMARY | 2022-07-10 08:21 | XMS_ITS | Encounter Summary ---
:1940 Author Organization [facility] Address [address] [place] [address] Care Team Providers Name Role Phone Igor Horn P.A.-C. Primary Care Provider [phone] Encounter Details Date Type Department Care Team Description 12/25/2018 Clinical Communication Department of [facility] Fide Durant, Internal Medicine in [place], [place] [address] [address] [phone] Social History Tobacco Use Types Packs/Day Years [...] or slept in a alf (including now)? Sex Assigned at Date Recorded Female 06/26/2021 8:35 AM CDT documented as of this encounter Plan of Treatment Not on filedocumented as of this encounter Visit Diagnoses Not on filedocumented in this encounter Care Teams Sports Intern Relationship Specialty Start Date End Date Igor Horn P.A.-C. PCP - General 06/14/18 03/15/[address] [place] [phone] documented as of this encounter
--- OUTSIDE RECORDS SUMMARY | 2022-07-10 08:21 | XMS_ITS | Encounter Summary ---
:1940 Author Organization [facility] Address [address] [place] [address] Care Team Providers Name Role Phone Aneta Whitaker APRN C.N.PAntwan, M.S.N. Primary Care Pr ovid Encounter Details Date Type Department Care Team Description 10/09/2017 Orders Only Urgent Care in [facility], Dysuria (Prim haroldo Dx) [place], [place] Aneta Rodriguez APRN, [address] C.N.P., M.S.N. [place], [place] [address] [facility] [address] [place], [place] [phone] (Wo rk) Social History Tobacco Use Types [...] as of this encounter Visit Diagnoses Diagnosis Dysuria - Primary documented in this encounter Care Teams Hospital Mortician Relationship Specialty Start Date End Date Aneta Whitaker APRN, C.N.P., PCP - General 06/13/18 M.S.N. [address] [place] [address] documented as of this encounter
--- OUTSIDE RECORDS SUMMARY | 2022-07-10 08:21 | XMS_ITS | Encounter Summary ---
:1940 Author Organization [facility] Address [address] [place] [address] Care Team Providers Name Role Phone Aneta Whitaker APRN, C.N.P., M.S.N. Primary Care Pr ovid Reason for Visit Reason Comments Communication Encounter Details Date Type Department Care Team Description 01/17/2018 Clinical Communication Department of Family Cristóbal suarez Communication MedicineUlices APRN, Clinic, in Renée Elena, M.S .N. [place] [address] [facility] [address] [place] [phone] Social History Tobacco Use Types Packs/Day [...] or relatives? How often do you attend oriental orthodox or More than 4 times per year 03/16/2022 worship services? Do you belong to any clubs or Yes 03/16/2022 organizations such as oriental orthodox groups, unions, fraternal or athletic groups, or [...] on filedocumented in this encounter Care Teams Extractor Machine Operator Relationship Specialty Start Date End Date Aneta Whitaker APRN, C.N.P., PCP - General 06/13/18 M.S.N. [address] [place] [address] documented as of this encounter
--- OUTSIDE RECORDS SUMMARY | 2022-07-10 08:21 | XMS_ITS | Encounter Summary ---
:1940 Author Organization [facility] Address [address] [place] [address] Care Team Providers Name Role Phone Aneta Whitaker APRN, C.N.Lizabeth, M.S.N. Primary Care Pr ovider Reason for Visit Reason Comments Med Refill Encounter Details Date Type Department Care Team Description 10/08/2017 Refill Department of Family Medicine Aneta Whitaker Med Refill in [facility] Abelardo phillips APRN.N.P., M.S.N. [address] [place] [address] [place] [address] [phone] (Wo rk) Social History Tobacco Use Types [...] More than 4 times per year 03/16/2022 voodoo services? Do you belong to any clubs [...] on filedocumented in this encounter Care Teams Network Communications Engineer Relationship Specialty Start Date End Date Aneta Whitaker APRN, C.N.P., PCP - General 06/13/18 M.S.N. [address] [place] [address] documented as of this encounter
--- OUTSIDE RECORDS SUMMARY | 2022-07-10 08:21 | XMS_ITS | Encounter Summary ---
:1940 Author Organization [facility] Address [address] [place] [address] Care Team Providers Name Role Phone Igor Horn P.A.-C. Primary Care Provider [phone] Encounter Details Date Type Department Care Team Description 08/20/2018 Clinical Communication Department of Igor Byrd [facility], Bertha Langley [facility], in [address] [address] [place], [place] [phone] (Work) [phone] Social History Tobacco Use Types Packs/Day Years [...] or relatives? How often do you attend mormonism or More than 4 times per year 03/16/2022 christian services? Do you belong to any clubs or Yes 03/16/2022 organizations such as mormonism groups, unions, fraternal or athletic groups, or school groups? How often do you attend meetings of the More than 4 times [facility] year 03/16/2022 clubs or organizations you [...] this encounter Miscellaneous Notes Telephone Encounter - Radha Ashford L.P.N. - 08/22/2018 11:44 AM CST SUBJECTIVE CHIEF COMPLAINT / REASON FOR CALL No chief complaint on file. INFORMATION DISCUSSED Office Visit to establish care and set up medications for trip to [place] PLAN Disposition/Recommendation: patient to schedule appointment Information: patient/caller able to repeat back in their own words Caller agreeable to plan of care: yes The following references were used: provider Igor Horn HETICS INSTRUCTOR Telephone Encounter - Igor Horn P.A.-C. - 08/20/2018 5:34 PM AESTHETICS INSTRUCTOR I have never seen her so she should come and see me before she leaves for [place] HETICS INSTRUCTOR Telephone Encounter - Kelli Patel - 08/20/2018 2:18 PM CST Ainsley stopped by asking how to handle her med refills that will come due in September, since [place] until January 2019. Please contact Ainsley to advise her at [phone]. HETICS INSTRUCTOR documented in this encounter Plan of Treatment Not on filedocumented as of this encounter Visit Diagnoses Not on filedocumented in this encounter Care Teams Experimental Assembler Relationship Specialty Start Date End Date Igor Horn P.A.-C. PCP - General 06/14/18 03/15/22 [address] [place] [phone] documented as of this encounter
--- OUTSIDE RECORDS SUMMARY | 2022-07-10 08:21 | XMS_ITS | Encounter Summary ---
:1940 Author Organization [facility] Address [address] [place] [address] Care Team Providers Name Role Phone Aneta Whitaker APRN, C.N.Lizabeth, M.S.N. Primary Care Pr ovider Reason for Visit Reason Comments Annual Exam would like medications renew ed going out of town please refill all Appointment Request (Routine) - Closed Specialty Diagnoses / Procedures Referred By Contact Refer red To Contact Family Medicine Sherman, Aneta Rodriguez APRN, C.N.Lizabeth, M.S.N. [address] [place] [address] Referral ID Status Reason Start Date Expiration Date Visits Requ ested Visits Authorized [id number] Closed 08/22/2017 02/18/2018 1 1 Encounter Details Date Type Department Care Team Description 10/04/2017 Comprehensive Visit Department of [place], [facility] Family Medicine in [place] on Adult [place], [place] Abelardo BYNUM.N.PAntwan, (Primary Dx) [address] [facility] M.S.N. [place], [place] [address] [facility] [address] [place], [place] [phone] Social History Tobacco Use Types Packs/Day Years [...] or relatives? How often do you attend yarsanism or More than 4 times per year 03/16/2022 gnosticist services? Do you belong to any clubs or Yes 03/16/2022 organizations such as yarsanism groups, unions, fraFloq or athletic groups, or school groups? How [...] Reading Time Taken Comments Blood Pressure 132/70 10/04/2017 10:56 AM COSTUMER Pulse 78 10/04/2017 10:56 AM COSTUMER Temperature 36.4 ??C (97.5 ??F) 10/04/2017 10:56 AM COSTUMER Respiratory Rate 16 10/04/2017 10:56 AM COSTUMER Oxygen Saturation 97% 10/04/2017 10:56 AM COSTUMER Inhaled Oxygen Concentration - - Weight 96.3 kg (212 lb 4.9 oz) 10/04/2017 10:56 AM COSTUMER Height 160.8 cm (5' 3.31) 10/04/2017 10:56 AM COSTUMER Body Mass Index 37.24 10/04/2017 10:56 AM COSTUMER documented in this encounter H&P Notes Sherman, Aneta Rodriguez, DIRECTOR OF GOLF, ROTOR ASSEMBLER - 10/04/2017 11:00 AM CST SUBJECTIVE CHIEF COMPLAINT / REASON FOR VISIT Ainsley Cedeño is a 76 y.o. female who presents annual health maintenance exam. Patient lives half the year in [place] and half the year here in [place]. She is due for tetanus and breast cancer screening. She will take care of that when she gets back from her trip. She denies any recent illnesses no fevers,chills, headache, neck pain, chest pain, shortness of breath, abdominal pain, nausea, vomiting, or diarrhea. HISTORY OF PRESENT ILLNESS HPI The following portions of the patient's history were reviewed and updated as appropriate: current medications, family history, medical history, social history, surgical history and problem list. REVIEW OF SYSTEMS All other systems reviewed and are negative. OBJECTIVE PHYSICAL EXAM Constitutional: She is oriented to person, place, and time. She appears well- developed and well-nourished. Eyes: Conjunctivae and EOM are normal. Pupils are equal, round, and reactive to light. Neck: Normal range of motion. Neck supple. Cardiovascular: Normal rate, regular rhythm, normal heart sounds and intact distal pulses. Pulmonary/Chest: Effort normal, breath sounds normal and breasts normal. Abdominal: Soft. Bowel sounds are normal. Musculoskeletal: Normal range of motion. Neurological: She is alert and oriented to person, place, and time. She has normal reflexes. Skin: Skin is warm and dry. Capillary refill takes less than 2 seconds. Psychiatric: She has a normal mood and affect. Her behavior is normal. Judgment and thought content normal. Nursing note and vitals reviewed. ASSESSMENT / PLAN #1 Health Maintenance Examination Adult - patient had lipid profile, CMP and thyroid panel done. These were within normal limits. Overall she is doing well. She tries to exercise most days of the week.She tries to eat healthy diet by choosing lean meats and fish, and fresh fruits and vegetables. Encouraged her to follow up as needed for any healthcare concern or problem. She voiced good understanding. UMER documented in this encounter Plan of Treatment Not on filedocumented as of this encounter Visit Diagnoses Diagnosis Health Maintenance Examination Adult - P rimary documented in this encounter Care Teams Electronic Sales And Service Technician Relationship Specialty Start Date End Date Aneta Whitaker, DIRECTOR OF GOLF, C.N.P., PCP - General 06/13/18 M.S.N. [address] [place] [phone] documented as of this encounter
--- OUTSIDE RECORDS SUMMARY | 2022-07-10 08:21 | XMS_ITS | Encounter Summary ---
:1940 Author Organization [facility] Address [address] [place] [address] Care Team Providers Name Role Phone Sherman, Aneta Rodriguez APRN C.N.PAntwan, M.S.N. 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 How often do you attend mormon or More than 4 times per year 03/16/2022 evangelical services? Do you belong to any clubs or Yes 03/16/2022 organizations such as mormon groups, unions, fraternal or athletic groups, or [...] Start Date End Date amoxicillin (AMOXIL) 500 Take 2,000 mg by 0 09/27 mg capsule mouth. CALCIUM CARB/VIT Take 1 tablet by 0 11/05/2011 D3/MINERALS mouth 2 (two) times (CALCIUM-VITAMIN D ORAL) a day. DOCOSAHEXANOIC ACID/EPA 3 (three) times a 0 12/21 (FISH OIL ORAL) day. 2 in AM 1 capsule in PM ADVAIR DISKUS 100-50 1 puff daily. 0 09/12/2017 1 10/19/2017 mcg/act diskus inhaler amoxicillin (for_AMOXIL) Take 2,000 mg by 0 09/2708/25/2018 500 mg capsule mouth. celecoxib (for_CeleBREX) Take 1 capsule (200 90 capsule 3 08/25/2018 200 mg capsule mg total) by mouth daily. With a meal. fluticasone (for_FLONASE) 1 spray as needed. 0 08/25/2018 50 mcg/actuation nasal spray hydroCHLOROthiazide Take 1 tablet (25 90 tablet 3 8 08/25/2018 (for_HYDRODIURIL) 25 mg mg total) by mouth tablet daily. levothyroxine Take 1 tablet (75 90 tablet 3 11/06/201708/07 (for_SYNTHROID, mcg total) by mouth LEVOTHROID) 75 mcg tablet daily. lisinopril Take 1 tablet (30 90 tablet 3 10/08/2017 018 (for_PRINIVIL,ZESTRIL) 30 mg total) by mouth mg tablet daily. montelukast Take 10 mg by mouth 0 07/24/201708/07 (for_SINGULAIR) 10 mg daily. tablet pravastatin Take 1.5 tablets 90 tablet 3 10/08/2017 018 (for_PRAVACHOL) 40 mg (60 mg total) by tablet mouth at bedtime. predniSONE (for_DELTASONE) Take 10 mg by mouth 0 08/27/2017 08/19/2018 10 mg tablet as needed. triamcinolone triamcinolone 0.1% 0 02/15/2016 (for_KENALOG) 0.1 % cream topical cream See Instructions, 1 keiry Topical prn listed in doc by history, 15 gm, 0 Refill(s) VENTOLIN HFA 90 1 puff as needed. 0 08/27/2017 mcg/actuation inhaler documented as of this encounter Plan of Treatment Not on filedocumented as of this encounter Procedures Procedure Name Priority Date/Time Associated Comments Diagnosis BI BREAST SCREENING RAD - Routine 02/24/2018 2:53 Malignant Resu lts for BILATERAL WITH (most inpatients PM CDT Neoplasm Of this proc edure TOMOSYNTHESIS and all Forearm Squamous are in the outpatients) Cell Carcinoma results Right section. Screening Mammogram Average Risk Patient documented in this encounter Results BI Breast Screening Bilateral with Tomosynthesis (02/24/2018 2:53 PM CDT) Anatomical Region Laterality Modality Breast, Breast Imaging RST LOS Bilateral Mammograp hy Specimen (Source) Anatomical Collection Method Collection Time Re ceived Time Location / / Volume Laterality 02/24/2018 2:54 PM CDT Impressions 02/24/2018 3:04 PM CDT IMPRESSION: ??Negative. RECOMMENDATION: ??Annual Screening Mammo gram Annual screening mammogram. ASSESSMENT: ??BI-RADS: 1: Negative. Narrative 02/24/2018 3:04 PM CDT EXAM: ??BI BREAST SCREENING BILATERAL WITH TOMOSYNTHESIS Current study was evaluated with a Compu ter Aided Detection (CAD) system. INDICATION: ??Screening mammogram. COMPARISON: ??Prior exams were available for comparison. DENSITY: ??b. There are scattered areas of fibroglandular density. FINDINGS: ??No findings of malignancy. ? ?No significant change since prior exam. Procedure Note [place] M.D. - 02/24/2018Format ting of this note might be different from the original. EXAM: BI BREAST SCREENING BILATERAL WITH TOMOSYNTHESIS Current study was evaluated with a Compu ter Aided Detection (CAD) system. INDICATION: Screening mammogram. COMPARISON: Prior exams were available f or comparison. DENSITY: b. There are scattered areas of fibroglandular density. FINDINGS: No findings of malignancy. No significant change since prior exam. IMPRESSION: Negative. RECOMMENDATION: Annual Screening Mammogr am Annual screening mammogram. ASSESSMENT: BI-RADS: 1: Negative. Igor Horn P.A.-C. IMG BI PROCEDURES documented in this encounter Visit Diagnoses Diagnosis Malignant Neoplasm Of Forearm Squamous C ell Carcinoma Right Screening Mammogram Average Risk Patient documented in this encounter Care Teams Canvas Goods Maker Relationship Specialty Start Date End Date Whitaker, Aneta Rodriguez APRN, C.N.P., PCP - General 06/13/18 M.S.N. [address] [place] [address] documented as of this encounter
--- OUTSIDE RECORDS SUMMARY | 2022-07-10 08:21 | XMS_ITS | Encounter Summary ---
:1940 Author Organization [facility] Address [address] [place] [address] Care Team Providers Name Role Phone Sherman, Victor Hugo Marquis APRNNAvtar, M.S.N. Primary Care Pr ovider Reason for Referral Outpatient (Routine) - Closed Specialty Diagnoses / Procedures Referred By Contact Refer red To Contact Allergy and Immunology Diagnoses Asthma (HCC) Valdemar Ma, [facility] [address] [place] [address] Referral ID Status Reason Start Date Expiration Date Visits Requ ested Visits Authorized [id number] Closed 01/24/2018 07/23/2018 1 1 Encounter Details Date Type Department Care Team Description 01/24/2018 Orders Only Division of Allergic Valdemar Ma, Asthma (HCC) Diseases in [address] [place] [phone] (Wo rk) Social History Tobacco Use Types [...] or relatives? How often do you attend roman catholic or More than 4 times per year 03/16/2022 islam services? Do you belong to any clubs or Yes 03/16/2022 organizations such as roman catholic groups, unions, fraternal or athletic groups, [...] or slept in a residential (including now)? Sex Assigned at Date Recorded Female 06/26/2021 8:35 AM CDT documented as of this encounter Plan of Treatment Scheduled Referrals Name Type Priority Associated Order Schedule Diagnoses Allergy and Outpatient Referral Routine Asthma (HCC) Expected : Immunology - 08/22/2018 Mastocytosis consult (Approx imate), (clinic) Expires: 01/24/2021 documented as of this encounter Results Spirometry (08/19/2018 1:35 PM COAL HAULER OPERATOR) P athologist Signature VC MAX POST 2.29 1.87 - 08/27/2018 [place] 3.42 L 9:18 AM COAL HAULER OPERATOR SUITE PostFEV1 1.57 1.44 - 08/27/2018 [place] 2.57 L 9:18 AM COAL HAULER OPERATOR SUITE FEV1/FVC POST 68.89 63.43 - 08/27/2018 [place] 89.68 % 9:18 AM COAL HAULER OPERATOR SUITE PostFVC 2.28 1.87 - 08/27/2018 [place] 3.42 L 9:18 AM COAL HAULER OPERATOR SUITE FET POST 7.68 sec 08/27/2018 [place] 9:18 AM COAL HAULER OPERATOR SUITE PEF POST 4.51 2.65 - 08/27/2018 [place] 7.95 L/s 9:18 AM COAL HAULER OPERATOR SUITE FEF 25-75 % 0.96 0.72 - 08/27/2018 [place] POST 3.04 L/s 9:18 AM COAL HAULER OPERATOR SUITE VC MAX PRE 2.23 1.87 - 08/27/2018 [place] 3.42 L 9:18 AM COAL HAULER OPERATOR SUITE FEV1 1.45 1.44 - 08/27/2018 [place] 2.57 L 9:18 AM COAL HAULER OPERATOR SUITE FEV1/FVC 64.81 63.43 - 08/27/2018 [place] 89.68 % 9:18 AM COAL HAULER OPERATOR SUITE FVC 2.23 1.87 - 08/27/2018 [place] 3.42 L 9:18 AM COAL HAULER OPERATOR SUITE FET PRE 7.19 sec 08/27/2018 [place] 9:18 AM COAL HAULER OPERATOR SUITE PEF PRE 4.20 2.65 - 08/27/2018 [place] 7.95 L/s 9:18 AM COAL HAULER OPERATOR SUITE YOO01-55% 0.84 0.72 - 08/27/2018 [place] 3.04 L/s 9:18 AM COAL HAULER OPERATOR SUITE SUBSTANCE POST NaN 08/27/2018 [place] 9:18 AM COAL HAULER OPERATOR SUITE DOSE POST NaN 08/27/2018 [place] 9:18 AM COAL HAULER OPERATOR SUITE % PRED VC MAX 2.23 1.87 - 08/27/2018 [place] 3.42 % 9:18 AM COAL HAULER OPERATOR SUITE FEV1% 1.45 1.44 - 08/27/2018 [place] 2.57 % 9:18 AM COAL HAULER OPERATOR SUITE % PRED FEV1/FVC 64.81 63.43 - 08/27/2018 [place] 89.68 % 9:18 AM COAL HAULER OPERATOR SUITE FVC% 2.23 1.87 - 08/27/2018 [place] 3.42 % 9:18 AM COAL HAULER OPERATOR SUITE % PRED PEF 4.20 2.65 - 08/27/2018 [place] 7.95 % 9:18 AM COAL HAULER OPERATOR SUITE % PRED FEF 0.84 0.72 - 08/27/2018 [place] 25-75% 3.04 % 9:18 AM COAL HAULER OPERATOR SUITE PRED VC MAX NaN 1.87 - 08/27/2018 [place] 3.42 L 9:18 AM COAL HAULER OPERATOR SUITE PRED FEV 1 NaN 1.44 - 08/27/2018 [place] 2.57 L 9:18 AM COAL HAULER OPERATOR SUITE PRED FEV1/FVC NaN 63.43 - 08/27/2018 [place] 89.68 % 9:18 AM COAL HAULER OPERATOR SUITE PRED FVC NaN 1.87 - 08/27/2018 [place] 3.42 L 9:18 AM COAL HAULER OPERATOR SUITE PRED PEF NaN 2.65 - 08/27/2018 [place] 7.95 L/s 9:18 AM COAL HAULER OPERATOR SUITE PRED FEF 25-75% NaN 0.72 - 08/27/2018 [place] 3.04 L/s 9:18 AM COAL HAULER OPERATOR SUITE Specimen (Source) Anatomical Collection Method Collection Time Re ceived Time Location / / Volume Laterality 08/19/2018 1:35 PM COAL HAULER OPERATOR Valdemar Ma M.D. PFT ORDERABLES Performing Organization Address City/State/ZIP Code Phon e Number [place] [address] [place] [address] documented in this encounter Visit Diagnoses Diagnosis Asthma (HCC) documented in this encounter Care Teams Electronic Warfare Specialist Relationship Specialty Start Date End Date Whitaker, Aneta Rodriguez APRN, C.N.P., PCP - General 06/13/18 M.S.N. [address] [place] [address] documented as of this encounter
--- OUTSIDE RECORDS SUMMARY | 2022-07-10 08:21 | XMS_ITS | Encounter Summary ---
:1940 Author Organization [facility] Address [address] [place] [address] Care Team Providers Name Role Phone Aneta Whitaker APRN CAntwanNAvtar, M.S.N. Primary Care Pr ovider Reason for Referral Outpatient (Routine) - Closed Specialty Diagnoses / Procedures Referred By Contact Refer red To Contact Diagnoses Pain Joint Foot Bilateral Apolonia Horn [facility]twan [facility], [facility] [address] [place] [address] [place] [address] Phone: [phone] Referral ID Status Reason Start Date Expiration Visits Visits Date Requested Authorized [id number] Closed Patient 02/06/2018 08/05/2018 1 1 Preference Reason for Visit Reason Onset Date Comments Medicare Annual Wellness Visit 01/16/2018 Encounter Details Date Type Department Care Team Description 01/16/2018 Clinical Communication Department of Lashonda Page Annual Community Internal L, R.N. Wellness Visit Medicine in [address] [place], [place] [address] [address] [place], [place] [phone] (Work) [phone] Social History Tobacco Use Types Packs/Day Years [...] or relatives? How often do you attend protestant or More than 4 times per year 03/16/2022 taoism services? Do you belong to any clubs or Yes 03/16/2022 organizations such as protestant groups, unions, fraternal or athletic groups, or [...] or slept in a chcf (including now)? Sex Assigned at Date Recorded Female 06/26/2021 8:35 AM CDT documented as of this encounter Miscellaneous Notes Telephone Encounter - Joshua De Jesus L.PAntwanNAntwan - 02/06/2018 2:42 PM CDT Referral has been faxed. Addendum Note - Apolonia Horn P.A.-C. - 02/06/2018 2:17 PM CDT Addended by: APOLONIA HORN on: 02/06/2018 02:17 PM Modules accepted: Orders Telephone Encounter - Apolonia Horn P.A.-C. - 02/06/2018 2:14 PM CDT I saw her once 4 years ago. Should I see her at some point? I do not really know much about her. Should I put in these consult? Telephone Encounter - Anna Marie Babcock R.N. - 02/06/2018 2:06 PM CDT Patient here for her Medicare annual wellness visit. Overall good visit with minimal concerns. She would like to see podiatry and is open to going to [facility] Would like a referral there. Patient also mentioned doing a sleep study to test for sleep apnea. She is leaving in a couple days to go to [place] for a week to visit her niece. Telephone Encounter - Lashonda Page R.N. - 01/23/2018 10:49 AM CDT Patient requesting Derm referral for Full skin exam due to history of squamous cell carcinoma (2001). She has been to [place] for this in the past, but is requesting a referral to go again. She also requests to have her Mammos done in [place]. Patient preference. Telephone Encounter - Lashonda Page R.N. - 01/23/2018 9:27 AM CDT Spoke with patient, she was seen in September for a physical with Aneta, but it was not an Annual Wellness visit. She is interested in scheduling that. We also discussed that she will need to establish care with a new PCP as Aneta is no longer going to the [facility]. Patient will think about a new PCP. She is thinking she would prefer a female provider. She is wanting to get scheduled for a Mammogram and a Dermatology appointment in [place] on or after 02/21/18, she is asking if Apolonia would place these orders/referrals for her. Telephone Encounter - Lashonda Page R.N. - 01/16/2018 11:41 AM CDT Called patient to discuss scheduling a Medicare Annual Wellness Visit. Message left for patient to return my call. documented in this encounter Plan of Treatment Not on filedocumented as of this encounter Results BI Breast [...] Annual screening mammogram. ASSESSMENT: BI-RADS: 1: Negative. Apolonia Horn P.A.-C. IMJr BI PROCEDURES documented in this encounter Visit Diagnoses Diagnosis Malignant Neoplasm Of Forearm Squamous C ell Carcinoma Right - Primary Screening Mammogram Average Risk Patient Pain Joint Foot Bilateral Sleep Apnea Malignant Neoplasm Of Forearm Squamous C ell Carcinoma Right Screening Mammogram Average Risk Patient documented in this encounter Care Teams Personal Computer Network Analyst Relationship Specialty Start Date End Date Sherman, Aneta Rodriguez APRN, C.N.P., PCP - General 06/13/18 M.S.N. [address] [place] [phone] documented as of this encounter
--- OUTSIDE RECORDS SUMMARY | 2022-07-10 08:21 | XMS_ITS | Encounter Summary ---
:1940 Author Organization [facility] Address [address] [place] [address] Care Team Providers Name Role Phone Aneta Whitaker APRN, C.N.P., M.S.N. Primary Care Pr ovid Encounter Details Date Type Department Care Team Description 10/10/2017 Hospital Encounter Department of Whitaker, Dysuria Laboratory Medicine in Aneta Rodriguez APRN [place], [place] Renée, M.S.N. [address] [facility] [address] [place] [phone] [place] [phone] (Wo rk) Social History Tobacco Use Types [...] mg total) by mouth tablet daily. levothyroxine 0 07/24/2017 11/05/2017 (for_SYNTHROID, LEVOTHROID) 75 mcg tablet lisinopril Take 1 tablet (30 90 tablet 3 10/08/2017 018 (for_PRINIVIL,ZESTRIL) 30 mg total) by mouth mg tablet daily. loratadine (CLARITIN) 10 Take 1 tablet by 0 08/2302/06/2018 mg tablet mouth daily as needed. montelukast Take 10 mg by mouth 0 [...] Date/Time Associated Comments Diagnosis URINALYSIS WITH Routine 10/10/2017 9:43 AM Result s for this MICROSCOPIC IF MARKETING AMBASSADOR procedure are in INDICATED, U the results section. MICROSCOPIC MANUAL Routine 10/10/2017 9:43 AM Res ults for this MARKETING AMBASSADOR procedure are i n the results section. documented in this encounter Results (ABNORMAL) Microscopic Manual (10/10/2017 9:43 AM MARKETING AMBASSADOR) P athologist Signature White Blood 4-10 /hpf 10/10/2017 [facility] Cells 1:45 PM [facility] Comment: ----REFERENCE VALUE---- Males: 0-3 Females: 0-10 Unknown: 0-10 Red Blood Cells Occ-2 0 - 2 /hpf 10/10/2017 1:45 PM MARKETING AMBASSADOR [facility] Bacteria Present (A) None Seen 10/10/2017 1:45 PM MARKETING AMBASSADOR [facility] Specimen Anatomical Collection Method Collection Time Receive d Time (Source) Location / / Volume Laterality Urine 10/10/2017 9:43 AM 8 1:39 MARKETING AMBASSADOR PM MARKETING AMBASSADOR Victor Hugo Renteria APRNN.P., M.S.N. LAB URINE ORDERABLES Performing Organization Address City/State/ZIP Code Phon e Number [facility] [address] [place] [address] [facility] [address] [place] [address] [place], [place] [address] (ABNORMAL) Urinalysis with Microscopic if Indicated (10/10/2017 9:43 AM MARKETING AMBASSADOR) P athologist Signature Source Midstream 10/10/2017 [facility] 9:51 AM [facility] Clarity Clear Clear 10/10/2017 [facility] 9:51 AM [facility] Color Yellow 10/10/2017 [facility] 9:51 AM [facility] Comment: ----REFERENCE VALUE---- Colorless Yellow [place] Blood Negative Negative 10/10/2017 9:51 AM [facility] Nitrite Negative Negative 10/10/2017 9:51 AM [facility] Leukocyte Esterase Trace (A) Negative 10/10/2017 9:51 A [facility] Protein, U Negative mg/dL 10/10/2017 9:51 AM [facility] Comment: ----REFERENCE VALUE---- Negative Trace Glucose Negative Negative mg/dL 10/10/2017 9:51 AM [facility] Ketones, QL(U) Negative Negative mg/dL 10/10/2017 9:51 AM [facility] Bilirubin Negative Negative 10/10/2017 9:51 AM [facility] pH 7.5 5.0 - 8.0 10/10/2017 9:51 AM [facility] Specific [place] 1.015 1.001 - 1.035 10/10/2017 9:51 AM [facility] Urobilinogen 0.2 0.2 - 1.0 mg/dL 10/10/2017 9:51 AM [facility] Specimen Anatomical Collection Method Collection Time Receive d Time (Source) Location / / Volume Laterality Urine 10/10/2017 9:43 AM 8 9:47 MARKETING AMBASSADOR AM MARKETING AMBASSADOR Aneta Whitaker APRN, C.N.P., M.S.N. LAB URINE ORDERABLES Performing Organization Address City/State/ZIP Code Phon e Number [facility] 225 [place], [place] [address] LAB documented in this encounter Visit Diagnoses Diagnosis Dysuria documented in this encounter Care Teams Hopper Attendant Relationship Specialty Start Date End Date Aneta Whitaker APRN C.N.P., PCP - General 06/13/18 M.S.N. [address] [place] [phone] documented as of this encounter
--- OUTSIDE RECORDS SUMMARY | 2022-07-10 08:21 | XMS_ITS | Encounter Summary ---
:1940 Author Organization [facility] Address [address] [place] [address] Care Team Providers Name Role Phone Igor Horn P.A.-C. Primary Care Provider [phone] Reason for Visit Reason Comments Asthma Outpatient (Routine) - Closed Specialty Diagnoses / Procedures Referred By Contact Refer red To Contact Allergy and Immunology Diagnoses [facility] [address] [place] [phone] Referral ID Status Reason Start Date Expiration Date Visits Requ ested Visits Authorized [id number] Closed 01/24/2018 07/23/2018 1 1 Encounter Details Date Type Department Care Team Description 08/19/2018 Comprehensive Visit Division of Allergic Jose Ma Asthma (HCC) Diseases in [place] [address] [address] [facility] 200 [place] [phone] Social History Tobacco Use Types Packs/Day Years [...] or relatives? How often do you attend religious or More than 4 times per year 03/16/2022 denominational services? Do you belong to any clubs or Yes 03/16/2022 organizations such as religious groups, unions, fraternal or athletic groups, or [...] Sign Reading Time Taken Comments Blood Pressure 139/69 08/19/2018 2:24 PM STRATEGY CONSULTANT Pulse 77 08/19/2018 2:24 PM STRATEGY CONSULTANT Temperature 36.6 ??C (97.9 ??F) 08/19/2018 2:24 PM STRATEGY CONSULTANT Respiratory Rate - - Oxygen Saturation - - Inhaled Oxygen Concentration - - Weight 102 kg (225 lb 8.5 oz) 08/19/2018 2:24 PM STRATEGY CONSULTANT Height 161.5 cm (5' 3.58) 08/19/2018 2:24 PM STRATEGY CONSULTANT Body Mass Index 39.22 08/19/2018 2:24 PM STRATEGY CONSULTANT documented in this encounter Consult Notes Valdemar Ma M.D. - 08/19/2018 2:30 PM CST SUBJECTIVE REASON FOR CONSULT Asthma. HISTORY OF PRESENT ILLNESS Ms. Graves is a 77-year-old female with longstanding history of asthma. She was last seen in the Division approximately a year ago. When she visited her lvqgitwx-wx-sde last year, she did take the 10 mg of prednisone daily and did fine during that timeframe. All-in-all, she feels that she has done well throughout the year. She does currently have a mild upper respiratory infection and has felt some chest tightness with that but nothing that has been real marked. She has continued to use her Advair 100/50, 1 puff a day, and Singulair 10 mg a day. She feelsthat, at most, she would go through approximately 2 canisters of albuterol a year. She has not had any significant nasal symptoms. She will again be spending a significant amount of time in [place] this winter. She likely will be spending more time at her rpmwygwp-wv-tev's, up to a 14-day timeframe, and likely will come back from [place] in the February timeframe. Past medical history, medications reviewed. OBJECTIVE PHYSICAL EXAMINATION Vital Signs: Height 161.5 cm, weight 102.3 kilos, temperature 36.6, pulse 77, blood pressure 139/69,respiratory rate 14. General: Pleasant female in no distress. Skin : Negative. Eyes: Negative. ENT : Normal TMs bilaterally. Throat is clear. Lymph : Negative. Lungs : Clear to auscultation in all boyer. Further evaluation was performed with flow volume loop. Current FEV1 is 72% of predicted. This is unchanged from last year. ASSESSMENT / PLAN #1 Asthma, well controlled Overall, she is doing very well from the asthma standpoint. We will continue with the Advair 100/50,1 puff daily, and Singulair 10 mg a day. She could continue to use the albuterol on an as-needed basis. If she is having increased symptoms, such as with exposures or upper respiratory infection, etcetera, she could increase the Advair to 1 puff twice a day. For visiting her mcjbbvjm-ne-fhz, especially for the 1st go-round when she will have a longer stay, she can use the prednisone 10 mg a day for the first 7 days, and then it is anticipated she could drop to 5 mg a day for the remaining 7 days. When she goes later for a shorter time frame, another option would be to increase the Advair to 1 puff twice a day for 3 days ahead of the visit and continue that dosing during the visit. CT CT Job ID: [id number] TEGY CONSULTANT documented in this encounter Plan of Treatment Not on filedocumented as of this encounter Visit Diagnoses Diagnosis Asthma (HCC) documented in this encounter Care Teams Technical Staff Assistant Relationship Specialty Start Date End Date Igor Horn P.A.-C. PCP - General 06/14/18 03/15/[address] [place] [phone] documented as of this encounter
--- OUTSIDE RECORDS SUMMARY | 2022-07-10 08:21 | XMS_ITS | Encounter Summary ---
:1940 Author Organization [facility] Address [address] [place] [address] Care Team Providers Name Role Phone Aneta Whitaker APRN C.N.PAntwan, M.S.N. Primary Care Pr ovider Encounter Details Date Type Department Care Team Description 09/24/2017 Abstract Department of Family Medicine, Provider, Historical [facility], in [place], [place] [address] [place] [phone] Social History Tobacco Use Types Packs/Day Years Used Date Smoking Tobacco: Never Alcohol Habits Answer Date Recorded How often [...] or relatives? How often do you attend moravian or More than 4 times per year 03/16/2022 hoahaoism services? Do you belong to any clubs or Yes 03/16/2022 organizations such as moravian groups, unions, fraternal or athletic groups, or [...] on filedocumented in this encounter Care Teams Aircraft Loadmaster Superintendent Relationship Specialty Start Date End Date Aneta Whitaker APRN, C.N.P., PCP - General 06/13/18 M.S.N. [address] [place] [address] documented as of this encounter
--- OUTSIDE RECORDS SUMMARY | 2022-07-10 08:21 | XMS_ITS | Encounter Summary ---
:1940 Author Organization [facility] Address [address] [place] [address] Care Team Providers Name Role Phone Sherman, Aneta Rodriguez APRN C.N.PAntwan, M.S.N. Primary Care Pr ovider Encounter Details Date Type Department Care Team Description 02/06/2018 Orders Only Department of [facility] Igor Horn, Medicine, [facility]. in [facility] [address] [facility] [address] [facility] [address] [place] [address] [place] [address] [phone] Social History Tobacco Use Types Packs/Day Years [...] More than 4 times per year 03/16/2022 confucianist services? Do you belong to any clubs [...] slept in a senior care (including now)? Sex Assigned at Date Recorded Female 06/26/2021 8:35 AM CDT documented as of this encounter Plan of Treatment Not on filedocumented as of this encounter Visit Diagnoses Not on filedocumented in this encounter Care Teams Celery Wrapper Relationship Specialty Start Date End Date Aneta Whitaker APRN, C.N.P., PCP - General 06/13/18 M.S.N. [address] [place] [address] documented as of this encounter
--- OUTSIDE RECORDS SUMMARY | 2022-07-10 08:21 | XMS_ITS | Encounter Summary ---
:1940 Author Organization [facility] Address [address] [place] [address] Care Team Providers Name Role Phone Igor Horn P.A.-C. Primary Care Provider [phone] Reason for Referral Outpatient (Routine) - Closed Specialty Diagnoses / Procedures Referred By Contact Refer red To Contact Family Medicine Igor Horn P. A.-C. [facility] Region [address] [place] [address] Referral ID Status Reason Start Date Expiration Date Visits Requ ested Visits Authorized [id number] Closed 08/25/2018 08/25/2019 1 1 RIUM TANK ATTENDANT Reason for Visit Reason Comments Med Refill States annual exam is not du e until February 2019. Her prescriptions run out in Nov. She will be out of town and does not return until February. Encounter Details Date Type Department Care Team Description 08/25/2018 Office Visit Department of Paige Byrdli pidemia (Primary Dx); Medicine in Igor Pascual P.A. -C. Hypothyroidism Primary; [address] Pain Knee Right; [address] [place] [address] Asthma Intrinsic (HCC); [place] [phone] Screening Examination Diabetes Mellitus; [phone] Rhinitis Allerg ic; (Work) Hypertension Essential Primary Social History Tobacco Use Types Packs/Day Years [...] More than 4 times per year 03/16/2022 faith services? Do you belong to any clubs [...] Sign Reading Time Taken Comments Blood Pressure 136/78 08/25/2018 8:48 AM AQUARIUM TANK ATTENDANT Pulse 83 08/25/2018 8:48 AM AQUARIUM TANK ATTENDANT Temperature 36.7 ??C (98.1 ??F) 08/25/2018 8:48 AM AQUARIUM TANK ATTENDANT Respiratory Rate 16 08/25/2018 8:48 AM AQUARIUM TANK ATTENDANT Oxygen Saturation 96% 08/25/2018 8:48 AM AQUARIUM TANK ATTENDANT Inhaled Oxygen Concentration - - Weight 101 kg (223 lb 12.3 oz) 08/25/2018 8:48 AM AQUARIUM TANK ATTENDANT Height - - Body Mass Index 38.91 08/19/2018 2:24 PM AQUARIUM TANK ATTENDANT documented in this encounter H&P Notes Igor Horn P.A.-C. - 08/25/2018 8:45 AM CST CHIEF COMPLAINT / REASON FOR VISIT Ainsley Cedeño is a 77 y.o. female who presents for evaluation of Med Refill (Statesannual exam is not due until February 2019. Her prescriptions run out in Nov. She will be out of town anddoes not return until February.). HISTORY OF PRESENT ILLNESS Ainlsey is a very pleasant 77-year-old female who is a new patient to my practice. I did see her for preop history and physical 4 years ago but she is establishing care with me she had previously been seen by my colleagues. She has medical comorbidities but they have all been pretty well controlled withmedicine. She has a history of knee pain and she has had 1 knee replaced her other knee has been bothering her she has had injections she is considering another injection of platelet rich plasma. She is also considering doing another knee surgery. She continues to follow with her orthopedist about this. She has asthma but it is pretty well controlled she has to use occasional bursts of prednisone but otherwise for the most part is controlled with a steroid inhaler and albuterol and Singulair. She has hyperlipidemia that is been well controlled she has hypothyroidism that is been well controlled shewill be due for her labs coming up in the near future but she is moving to [place] for the winter and will check her labs and she gets back PAST MEDICAL HISTORY: Patient Active Problem List [...] ??? amoxicillin (AMOXIL) 500 mg capsule Take 4 capsules (2,000 mg total) by mouth once for 1 dose. 1hour before procedure 4 capsule 4 ??? CALCIUM CARB/VIT D3/MINERALS (CALCIUM-VITAMIN D ORAL) Take 1 tablet by mouth 2 (two) times a day. ??? celecoxib (CeleBREX) 200 mg capsule Take 1 capsule (200 mg total) by mouth daily. With a meal. 90 capsule 3 ??? DOCOSAHEXANOIC ACID/EPA (FISH OIL ORAL) 3 (three) times a day. 2 in AM 1 capsule in PM ??? fluticasone (FLONASE) 50 mcg/actuation nasal spray Administer 1 spray into each nostril daily. 16 g 11 ??? fluticasone-salmeterol (ADVAIR DISKUS) [...] tablet (10 mg total) by mouth daily. 20 tablet 2 ??? triamcinolone (KENALOG) 0.1 % cream Apply topically 3 (three) times a day. 30 g 11 No current facility-administered medications for this visit. ALLERGIES: Allergies Allergen Reactions ??? Cat Dander Other (see comments) No reaction noted in Cerner ??? Codeine Other (see comments) No reaction noted in Cerner ??? House Dust Mite Other (see comments) No reaction noted in Cerner ??? Hydrocodone GI intolerance ??? Prochlorperazine Other (see comments) No reaction noted in [employer]ner VITALS: Vitals: 08/25/18 0848 BP: 136/78 BP Location: Right arm Patient Position: Sitting Cuff Size: Large Pulse: 83 Resp: 16 Temp: 36.7 ??C TempSrc: Temporal SpO2: 96% Weight: 101.5 kg Body mass index is 38.91 kg/m??. OBJECTIVE Vitals: 08/25/18 0848 BP: 136/78 BP Location: Right arm Patient Position: Sitting Cuff Size: Large Pulse: 83 Resp: 16 Temp: 36.7 ??C TempSrc: Temporal SpO2: 96% Weight: 101.5 kg Body mass index is 38.91 kg/m??. PHYSICAL EXAM General: Patient appears in no acute distress. ENT: Throat no erythema. Neck: No lymphadenopathy. No thyroid masses. Heart: Regular rate and rhythm. No murmurs. Lungs: Clear to auscultation. Abdomen: Soft and nontender to palpation. IMPRESSION / REPORT / PLAN #1 Hyperlipidemia Will check a lipid panel when she gets back. 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 She also has her albuterol #5 Screening Examination Diabetes Mellitus Will check a metabolic panel when I see her back #6 Rhinitis Allergic She is going to start using her Flonase and antihistamine again as this is often helpful for her allergies with a flare up #7 Hypertension Essential Primary Blood pressure is well controlled I renewed her lisinopril and hydrochlorothiazide. I will check herlabs in 6 months I will see her back at that time if she has any questions or problems in the meantime she will let us know. Total time spent with her today was 30 min of which 20 was [id number] coordination of care and counseling Igor Horn P.A.-C. RIUM TANK ATTENDANT documented in this encounter Plan of Treatment Scheduled Referrals Name Type Priority Associated Diagnoses Order S [facility] Medicine Outpatient Referral Routine Expec michelle: office visit 02/22/2019 (clinic) (Approximate), Expires: 08/25/2021 documented as of this encounter Results S-TSH (Thyroid-Stimulating Hormone - Sensitive) (02/09/2019 8:32 AM CDT) athologist Signature TSH, Sensitive 2.5 0.3 - 4.2 02/09/2019 [facility] mIU/L 1:57 PM CDT [facility] Comment: Biotin has been identified by the lopez ruiz as a potential interfering substance. ??Higher concentr ations of biotin may be found in multivitamins, hair/nail supple ments, and workout supplements. ??If the result does not ma [facility] clinical observations, repeat testing after patient refrains fr om the use of supplements for at least 12 hours. Specimen Anatomical Collection Method Collection Time Receive d Time (Source) Location / / Volume Laterality Blood (Blood, 02/09/2019 8:32 AM 02/10/20 1:12 Venous) CDT PM CDT Igor Horn P.A.-C. LAB BLOOD ADD-ON Performing Organization Address City/State/ZIP Code Phon e Number [facility]- [facility] [address] [place] [id number] LAB (ABNORMAL) Lipid Panel (02/09/2019 8:32 AM CDT) athologist Signature Cholesterol, 166 mg/dL 02/09/2019 [facility] Total 1:57 PM CDT [facility]- [facility] Comment: ----REFERENCE VALUE---- Desirable: < 200 Borderline high: 200 - 239 High: > or = 240 Triglycerides 147 mg/dL 02/09/2019 1:57 PM CDT [facility] [place] [facility] Comment: ----REFERENCE VALUE---- Normal: <150 Borderline high: 150-199 High: 200-499 Very high: > or =500 Cholesterol, HDL, S 45 (L) >=50 mg/dL 02/09/2019 1:57 PM CDT [facility] [place] [facility] Calculated LDL 92 mg/dL 02/09/2019 1:57 PM CDT [facility] [place] [facility] Comment: ----REFERENCE VALUE---- Desirable: <100 Above Desirable: 100-129 Borderline high: 130-159 High: 160-189 Very high: > or =190 Cholesterol, Non-HDL, 121 mg/dL 02/09/2019 1:57 PM CDT [facility] [place] [facility] Comment: ----REFERENCE VALUE---- Desirable: <130 Above Desirable: 130-159 Borderline high: 160-189 High: 190-219 Very high: > or =220 Specimen Anatomical Collection Method Collection Time Receive d Time (Source) Location / / Volume Laterality Blood (Blood, 02/09/2019 8:32 AM 02/10/20 1:12 Venous) CDT PM CDT Igor Horn P.A.-C. LAB BLOOD ADD-ON Performing Organization Address City/State/ZIP Code Phon e Number [facility] [address] [place] [address] LAB Comprehensive Metabolic Panel (02/09/2019 8:32 AM CDT) athologist Signature Potassium, S 4.3 3.6 - 5.2 02/09/2019 [facility] mmol/L 1:57 PM [facility] Sodium, S 142 135 - 145 02/09/2019 [facility] mmol/L 1:57 PM [facility] Chloride, S 103 98 - 107 02/09/2019 [facility] mmol/L 1:57 PM [facility] Bicarbonate, S 28 22 - 29 02/09/2019 [facility] mmol/L 1:57 PM [facility] Anion Gap 11 7 - 15 02/09/2019 [facility] 1:57 PM [facility] BUN (Blood Urea 16 6 - 21 02/09/2019 [facility] Nitrogen), S mg/dL 1:57 PM [facility] Creatinine 0.76 0.59 - 02/09/2019 [facility] 1.04 mg/dL 1:57 PM [facility] eGFR-Non 76 >=60 02/09/2019 [facility] Black/ mL/min/BSA 1:57 PM [facility] [place] [facility] Comment: ----ADDITIONAL INFORMATION---- Estimated GFR calculated using the 2009 CKD_EPI creatinine equation. eGFR-Black/ 88 >=60 mL/min/BSA 2018 1:57 PM [facility] [place] [facility] Comment: ----ADDITIONAL INFORMATION---- Estimated GFR calculated using the 2009 CKD_EPI creatinine equation. Calcium, Total, S 9.8 8.8 - 10.2 02/09/2019 1:57 PM [facility] mg/dL [facility] [place] [facility] Glucose, S 117 70 - 140 mg/dL 02/09/2019 3:19 PM [facility] [place] [facility] Protein, Total, S 7.0 6.3 - 7.9 g/dL 02/09/2019 1:57 P [facility] Albumin, S 4.1 3.5 - 5.0 g/dL 02/09/2019 1:57 PM [facility] [place] [facility] Aspartate Aminotransferase 14 8 - 43 U/L 02/09/2019 1 :57 PM [facility] Alkaline Phosphatase, S 81 35 - 104 U/L 02/09/2019 2: 12 PM [facility] [place] [facility] Alanine Aminotransferase 19 7 - 45 U/L 02/09/2019 1:5 7 PM [facility] Bilirubin, Total, S 0.3 <=1.2 mg/dL 02/09/2019 1:57 PM [facility] [place] [facility] Specimen Anatomical Collection Method Collection Time Receive d Time (Source) Location / / Volume Laterality Blood (Blood, 02/09/2019 8:32 AM 02/10/20 19 1:12 Venous) [facility] CDT Igor Horn P.A.-C. LAB BLOOD ADD-ON Performing Organization Address City/State/ZIP Code Phon e Number [facility] [address] [place] [address] LAB documented in this encounter Visit Diagnoses Diagnosis Hyperlipidemia - Primary Hypothyroidism Primary Pain Knee Right Asthma Intrinsic (HCC) Screening Examination Diabetes Mellitus Rhinitis Allergic Hypertension Essential Primary documented in this encounter Care Teams Drywall Worker Relationship Specialty Start Date End Date Igor Horn P.A.-C. PCP - General 06/14/18 03/15/22 [address] [place] [address] documented as of this encounter
--- OUTSIDE RECORDS SUMMARY | 2022-07-10 08:21 | XMS_ITS | Encounter Summary ---
:1940 Author Organization [facility] Address [address] [place] [address] Care Team Providers Name Role Phone Aneta Whitaker APRN, C.N.P., M.S.N. Primary Care Pr ovider Encounter Details Date Type Department Care Team Description 09/17/2017 Hospital Encounter Department of [place], Hypothyr oidism; Laboratory Medicine Aneta Rodriguez APRN, Hyp erlipidemia; in [place], [place] CGuillermo., M.S.N. Hypertension NOS [address] [place] [phone] Social History Tobacco Use Types Packs/Day Years [...] or slept in a fdc (including now)? Sex Assigned at Date Recorded [...] 09/2708/25/2018 500 mg capsule mouth. celecoxib (for_CeleBREX) 0 07/24/2017 10/08/2017 200 mg capsule fluticasone (for_FLONASE) 1 spray as needed. 0 08/25/2018 50 mcg/actuation nasal spray hydroCHLOROthiazide 0 07/24/201710/08 (for_HYDRODIURIL) 25 mg tablet levothyroxine 0 07/24/2017 11/05/2017 (for_SYNTHROID, LEVOTHROID) 75 mcg tablet lisinopril 0 07/01/2017 10/08/2017 (for_PRINIVIL,ZESTRIL) 30 mg tablet loratadine (CLARITIN) 10 Take 1 tablet by 0 08/2302/06/2018 mg tablet mouth daily as needed. montelukast Take 10 mg by mouth 0 07/24/201708/07 (for_SINGULAIR) 10 mg daily. tablet pravastatin 0 08/19/2017 10/08/2017 (for_PRAVACHOL) 40 mg tablet predniSONE (for_DELTASONE) Take 10 mg by mouth [...] Diagnosis Comme nts LIPID PANEL, S Routine 09/17/2017 8:29 AM Hyperlipidemia Resul ts for this HELP AID procedure are i n the results section. THYROID-STIMULATING Routine 09/17/2017 8:29 AM Hypothyroidism Results for this HORMONE-SENSITIVE HELP AID procedure are in (S-TSH) the results section. BASIC METABOLIC Routine 09/17/2017 8:29 AM Hypertension NOS Re sults for this PANEL, S/P HELP AID procedure are i n the results section. documented in this encounter Results BMP (Basic Metabolic Panel) (09/17/2017 8:29 AM HELP AID) P athologist Signature Potassium, S 4.1 3.6 - 5.2 09/17/2017 [facility] mmol/L 11:32 AM [facility] Sodium, S 143 135 - 145 09/17/2017 [facility] mmol/L 11:32 AM [facility] Chloride, S 102 98 - 107 09/17/2017 [facility] mmol/L 11:32 AM [facility] Bicarbonate, S 27 22 - 29 09/17/2017 [facility] mmol/L 11:32 AM [facility] Anion Gap 14 7 - 15 09/17/2017 [facility] 11:32 AM [facility] BUN (Blood Urea 19 6 - 21 09/17/2017 [facility] Nitrogen), S mg/dL 11:32 AM [facility] [place] [facility] Creatinine 0.85 0.59 - 09/17/2017 [facility] 1.04 mg/dL 11:32 AM [facility] [place] [facility] eGFR 68 >=60 09/17/2017 [facility] Non-Black/Afric mL/min/BSA 11:32 AM [facility] [place] [facility] Comment: ----ADDITIONAL INFORMATION---- Estimated GFR calculated using the 2009 CKD_EPI creatinine equation. eGFR Black/ 78 >=60 mL/min/BSA 09/17/2017 11:3 2 AM [facility] [place] [facility] Comment: ----ADDITIONAL INFORMATION---- Estimated GFR calculated using the 2009 CKD_EPI creatinine equation. Calcium, Total, S 10.1 8.9 - 10.1 mg/dL 09/17/2017 11:3 2 AM [facility] Glucose, S 107 70 - 140 mg/dL 09/17/2017 11:32 AM [facility] Specimen Anatomical Collection Method Collection Time Receive d Time (Source) Location / / Volume Laterality Blood 09/17/2017 8:29 AM 7 [facility] 10:57 AM [facility] Aneta Whitaker APRN C.N.P., M.S.N. LAB BLOOD ADD-ON Performing Organization Address City/State/ZIP Code Phon e Number [facility] [address] [place] [id number] LAB (ABNORMAL) Lipid Panel (09/17/2017 8:29 AM [facility]) P athologist Signature Cholesterol, 176 mg/dL 09/17/2017 [facility] Total 11:32 AM [facility] [place] [facility] Comment: ----REFERENCE VALUE---- Desirable: < 200 Borderline high: 200 - 239 High: > or = 240 Triglycerides 186 (H) mg/dL 09/17/2017 11:32 AM [facility] [place] [facility] Comment: ----REFERENCE VALUE---- Normal: <150 Borderline high: 150-199 High: 200-499 Very high: > or =500 Cholesterol, HDL, S 45 (L) >=50 mg/dL 09/17/2017 11:32 AM [facility] LAB Calculated LDL 94 mg/dL 09/17/2017 11:[address] [facility] LAB Comment: ----REFERENCE VALUE---- Desirable: <100 Above Desirable: 100-129 Borderline high: 130-159 High: 160-189 Very high: > or =190 Cholesterol, Non-HDL, 131 mg/dL 09/17/2017 11:32 A M HELP A[facility] [place] B Comment: ----REFERENCE VALUE---- Desirable: <130 Above Desirable: 130-159 Borderline high: 160-189 High: 190-219 Very high: > or =220 Specimen Anatomical Collection Method Collection Time Receive d Time (Source) Location / / Volume Laterality Blood 09/17/2017 8:29 AM 7 [facility] 10:57 AM [facility] Abelardo Renteria APRN.N.P., M.S.N. LAB BLOOD ADD-ON Performing Organization Address City/State/[facility] Code Phon e Number [facility] [address] [place] [address] LAB S-TSH (Thyroid-Stimulating Hormone - Sensitive) (09/17/2017 8:29 AM [facility]) P athologist Signature TSH, Sensitive 1.8 0.3 - 4.2 09/17/2017 [facility] mIU/L 11:32 AM [facility] Comment: Biotin has been identified by the lopez ruiz as a potential interfering substance. ??Higher concentr ations of biotin may be found in multivitamins, hair/nail supple ments, and workout supplements. ??If the result does not ma [facility] clinical observations, repeat testing after patient refrains fr om the use of supplements for at least 12 hours. Specimen Anatomical Collection Method Collection Time Receive d Time (Source) Location / / Volume Laterality Blood 09/17/2017 8:29 AM 7 [facility] 10:57 AM [facility] Abelardo Renteria APRN.N.P., M.S.N. LAB BLOOD ADD-ON Performing Organization Address City/State/ZIP Code Phon e Number [facility] [place] [address] [place] [address] LAB documented in this encounter Visit Diagnoses Diagnosis Hypothyroidism Hyperlipidemia Hypertension NOS documented in this encounter Care Teams Genetic Coordinator Relationship Specialty Start Date End Date Aenta Whitaker APRN, C.N.P., PCP - General 06/13/18 M.S.N. [address] [place] [address] documented as of this encounter
--- OUTSIDE RECORDS SUMMARY | 2022-07-10 08:21 | XMS_ITS | Encounter Summary ---
:1940 Author Organization [facility] Address [address] [place] [address] Care Team Providers Name Role Phone Igor Horn P.A.-C. Primary Care Provider [phone] Encounter Details Date Type Department Care Team Description 02/09/2019 Hospital Encounter Department of [facility] Hyperlip idemia; Laboratory Medicine Reyna Costa Hypothyroidism Primary; in [facility] [address] Pain Knee Right; [place], [place] Asthma Intrinsic (HCC); [address] [address] Screening Examination Diabetes Mellitus; [place], [place] [phone] Hypertension Es sential Primary [id number] (Work) [phone] Social History Tobacco Use Types Packs/Day Years [...] 03/16/2022 organizations such as restoration groups, unions, [employer] or athletic groups, or school groups? How [...] HFA) 90 Inhale 1 puff 1 Inhaler 11 08/2512/24/2019 mcg/actuation inhaler every 4 (four) hours as needed for wheezing. celecoxib (CeleBREX) 200 mg Take 1 capsule 90 capsule 3 08/0702/12/2019 capsule (200 mg total) by mouth daily. With a meal. fluticasone (FLONASE) 50 Administer 1 16 g 11 8 03/23/2019 mcg/actuation nasal spray spray into each nostril daily. fluticasone-salmeterol Inhale 1 puff 3 each 08/25/2018 12/24/2019 (ADVAIR DISKUS) 100-50 daily. mcg/actuation diskus inhaler hydroCHLOROthiazide Take 1 tablet (25 90 tablet 3 8 02/12/2019 (HYDRODIURIL) 25 mg tablet mg total) by mouth daily. levothyroxine (SYNTHROID, Take 1 tablet (75 90 tablet 3 02/12/2019 LEVOTHROID) 75 mcg tablet mcg total) by mouth daily. lisinopril Take 1 tablet (30 90 tablet 3 08/25/2018 019 (PRINIVIL,ZESTRIL) 30 mg mg total) by tablet mouth daily. montelukast (SINGULAIR) 10 Take 1 tablet (10 100 tablet 3 02/12/2019 mg tablet mg total) by mouth daily. pravastatin (PRAVACHOL) 40 Take 1.5 tablets 90 tablet 3 02/12/2019 mg tablet (60 mg total) by mouth [...] Associated Comments Diagnosis LIPID PANEL, S Routine 02/09/2019 8:32 AM Hyperlipidemi a Results for this CDT Hypothyroidism procedure are in Primary the results Pain Knee Right section. Asthma Intrinsic (HCC) Screening Examination Diabetes Mellitu s Hypertension Essential Primary THYROID-STIMULATING Routine 02/09/2019 8:32 AM Hyperlipi demia Results for this HORMONE-SENSITIVE CDT Hypothyroidism procedur e are in (S-TSH) Primary the results Pain Knee Right section. Asthma Intrinsic (HCC) Screening Examination Diabetes Mellitu s Hypertension Essential Primary COMPREHENSIVE Routine 02/09/2019 8:32 AM Hyperlipidemi a Results for this METABOLIC PANEL, S/P CDT Hypothyroidism proce dure are in Primary the results Pain Knee Right section. Asthma Intrinsic (HCC) Screening Examination Diabetes Mellitu s Hypertension Essential Primary documented in this encounter Results S-TSH (Thyroid-Stimulating Hormone - Sensitive) (02/09/2019 8:32 AM CDT) P athologist Signature TSH, Sensitive 2.5 0.3 - 4.2 02/09/2019 [facility] mIU/L 1:57 PM CDT [facility] [place] [facility] Comment: Biotin has been identified by the lopez ruiz as a potential interfering substance. ??Higher concentr ations of biotin may be found in multivitamins, hair/nail supple ments, and workout supplements. ??If the result does not [facility] clinical observations, repeat testing after patient refrains fr om the use of supplements for at least 12 hours. Specimen Anatomical Collection Method Collection Time Receive d Time (Source) Location / / Volume Laterality Blood (Blood, 02/09/2019 8:32 AM 02/10/20 19 1:12 Venous) CDT PM CDT Igor Horn P.A.-C. LAB BLOOD ADD-ON Performing Organization Address City/State/ZIP Code Phon e Number [facility] [address] [place] [address] LAB (ABNORMAL) Lipid Panel (02/09/2019 8:32 AM CDT) athologist Signature Cholesterol, 166 mg/dL 02/09/2019 [facility] Total 1:57 PM CDT [facility] Comment: ----REFERENCE VALUE---- Desirable: < 200 Borderline high: 200 - 239 High: > or = 240 Triglycerides 147 mg/dL 02/09/2019 1:57 PM CDT [facility] Comment: ----REFERENCE VALUE---- Normal: <150 Borderline high: 150-199 High: 200-499 Very high: > or =500 Cholesterol, HDL, S 45 (L) >=50 mg/dL 02/09/2019 1:57 PM CDT [facility] Calculated LDL 92 mg/dL 02/09/2019 1:57 PM CDT [facility] [place] [facility] Comment: ----REFERENCE VALUE---- Desirable: <100 Above Desirable: 100-129 Borderline high: 130-159 High: 160-189 Very high: > or =190 Cholesterol, Non-HDL, 121 mg/dL 02/09/2019 1:57 PM CDT [facility] [place] LASHA Coronel Comment: ----REFERENCE VALUE---- Desirable: <130 Above Desirable: 130-159 Borderline high: 160-189 High: 190-219 Very high: > or =220 Specimen Anatomical Collection Method Collection Time Receive d Time (Source) Location / / Volume Laterality Blood (Blood, 02/09/2019 8:32 AM 02/10/20 1:12 Venous) CDT PM CDT Igor Horn P.A.-C. LAB BLOOD ADD-ON Performing Organization Address City/State/ZIP Code Phon e Number [facility] [address] [place] [address] LAB Comprehensive Metabolic Panel (02/09/2019 8:32 AM CDT) athologist Signature Potassium, S 4.3 3.6 - 5.2 02/09/2019 [facility] mmol/L 1:[address] [facility] Sodium, S 142 135 - 145 02/09/2019 [facility] mmol/L 1:57 PM [facility] Chloride, S 103 98 - 107 02/09/2019 [facility] mmol/L 1:57 PM [facility] Bicarbonate, S 28 22 - 29 02/09/2019 [facility] mmol/L 1:[address] [facility] Anion Gap 11 7 - 15 02/09/2019 [facility] 1:57 PM [facility] BUN (Blood Urea 16 6 - 21 02/09/2019 [facility] Nitrogen), S mg/dL 1:57 PM [facility] Creatinine 0.76 0.59 - 02/09/2019 [facility] 1.04 mg/dL 1:57 PM [facility] eGFR-Non 76 >=60 02/09/2019 [facility] Black/ mL/min/BSA 1:57 PM [facility] Comment: ----ADDITIONAL INFORMATION---- Estimated GFR calculated using the 2009 CKD_EPI creatinine equation. eGFR-Black/ 88 >=60 mL/min/BSA 2018 1:57 PM [facility] [place] Comment: ----ADDITIONAL INFORMATION---- Estimated GFR calculated using the 2009 CKD_EPI creatinine equation. Calcium, Total, S 9.8 8.8 - 10.2 02/09/2019 1:57 PM [facility] mg/dL [facility] Glucose, S 117 70 - 140 mg/dL 02/09/2019 3:19 PM [facility] [place] [facility] Protein, Total, S 7.0 6.3 - 7.9 g/dL 02/09/2019 1:57 P M [facility] [place] [facility] Albumin, S 4.1 3.5 - 5.0 g/dL 02/09/2019 1:57 PM [facility] [place] [facility] Aspartate Aminotransferase 14 8 - 43 U/L 02/09/2019 1 :57 PM [facility] Alkaline Phosphatase, S 81 35 - 104 U/L 02/09/2019 2: 12 PM [facility] Alanine Aminotransferase 19 7 - 45 U/L 02/09/2019 1:5 7 PM [facility] Bilirubin, Total, S 0.3 <=1.2 mg/dL 02/09/2019 1:57 PM [facility] Specimen Anatomical Collection Method Collection Time Receive d Time (Source) Location / / Volume Laterality Blood (Blood, 02/09/2019 8:32 AM 02/10/20 19 1:12 Venous) CDT PM CDT Igor Horn P.A.-C. LAB BLOOD ADD-ON Performing Organization Address City/State/ZIP Code Phon e Number [facility] [address] [place] [address] LAB documented in this encounter Visit Diagnoses Diagnosis Hyperlipidemia Hypothyroidism Primary Pain Knee Right Asthma Intrinsic (HCC) Screening Examination Diabetes Mellitus Hypertension Essential Primary documented in this encounter Care Teams Recycling Manager Relationship Specialty Start Date End Date Igor Horn P.A.-C. PCP - General 06/14/18 03/15/22 [address] [place] [address] documented as of this encounter
--- OUTSIDE RECORDS SUMMARY | 2022-07-10 08:22 | XMS_ITS | Encounter Summary ---
:1940 Author Organization [facility] Address [address] [place] [address] Care Team Providers Name Role Phone Unavailable Primary Care Provider Unavailable Encounter Details Date Type Department Care Team Description 09/21/2016 Hospital Encounter HX [facility] Delbert Whitaker APRN C.N.P., M.S.N. [address] [place] [address] (Wo rk) Social History Tobacco Use Types Packs/Day Years Used Date Smoking Tobacco: Never Assessed Alcohol Habits Answer Date Recorded How often [...] or slept in a custodial (including now)? Sex Assigned at Date Recorded Female 06/26/2021 8:35 AM CDT documented as of this encounter Last Filed Vital Signs Vital Sign Reading Time Taken Comments Blood Pressure 126/70 09/21/2016 10:28 AM FRONT END DRIVER Pulse 74 09/21/2016 10:28 AM FRONT END DRIVER Temperature - - Respiratory Rate 16 09/21/2016 10:28 AM FRONT END DRIVER Oxygen Saturation - - Inhaled Oxygen Concentration - - Weight 95.8 kg (211 lb 3.2 oz) 09/21/2016 10:28 AM FRONT END DRIVER Height 160.7 cm (5' 3.27) 09/21/2016 10:28 AM FRONT END DRIVER Body Mass Index 37.1 09/21/2016 10:28 AM FRONT END DRIVER documented in this encounter Medications at Time of Discharge Medication Sig Dispensed Refills Start Date End Date CALCIUM CARB/VIT Take 1 tablet by mouth 0 012 D3/MINERALS 2 (two) times a day. (CALCIUM-VITAMIN D ORAL) DOCOSAHEXANOIC ACID/EPA 3 (three) times a day. 0 12/21/2009 (FISH OIL ORAL) 2 in AM 1 capsule in PM loratadine (CLARITIN) Take 1 tablet by mouth 0 02/06/2018 10 mg tablet daily as needed. triamcinolone triamcinolone 0.1% 0 02/15/2016 (for_KENALOG) 0.1 % topical cream See cream Instructions, 1 keiry Topical prn listed in doc by history, 15 gm, 0 Refill(s) documented as of this encounter H&P Notes Sherman, Delbert Rodriguez, MISA, FREEZER OPERATOR - 09/21/2016 10:18 AM CST [id number] CHIEF COMPLAINT/REASON FOR VISIT Annual physical exam. HISTORY OF PRESENT ILLNESS A very pleasant 75-year-old female presents for annual physical exam. Overall patient is doing very well. She did have some knee surgery previously but has been doing quite well, exercising again, doing aerobics, walking, keeping busy, trying to eat better choosing fresh fruits and vegetables, lean meats and fish. She does have a history of hypertension, hyperlipidemia and hypothyroidism. She is taking medications for these problems with good results and without side effects. For her hypertension she takes hydrochlorothiazide and lisinopril. For hyperlipidemia she takes pravastatin. For hypothyroidism she takes Synthroid 75 mcg daily. She also has history of asthma which she takes albuterol inhaler as needed for rescue and then Advair Diskus 25 mcg-50 mcg 1 puff a 2 times a day. Patient also has a history of osteoarthritis and she takes Celebrex 200 mg daily with good results. Patient desires neda at her optimal health. She would like an annual skin check. She will be ordering a mammogram today as well as wanting to see Endocrinology for her bone health. She denies any recent illnesses. No fev ers, chills, headache, headache neck pain, chest pain, shortness of breath, abdominal pain, nausea, vomiting, or diarrhea. MEDICATIONS Reviewed today. See medication list tab in [employer]. ALLERGIES Reviewed today. See allergy tab in [employer]. SYSTEMS REVIEW Complete review of systems reviewed. All negative except for pertinent positives in HPI. PAST MEDICAL/SURGICAL HISTORY Reviewed today. See History and Procedures tab in [employer]. SOCIAL HISTORY Reviewed today. No changes. See Intake form under form browser in [employer]. FAMILY HISTORY Reviewed today. No changes. See Histories and Procedures tab in [employer]. VITAL SIGNS Refer to EMR vital signs flow sheet or summary tab in [employer]. PHYSICAL EXAMINATION GENERAL: Well-appearing adult, no acute distress. Grooming and hygiene appropriate. SKIN: Warm, dry and pink. No rashes, lesions or bruising. HEENT: Head normocephalic. Eyes: Conjunctivae clear. Sclerae white. Pupils equal, round, reactive tolight. EOMs intact. ENT: Ear canals are clear bilaterally. TMs dull. Nose: Nasal mucosa pink and moist. Posterior pharynx moist and pink. No lesions or exudate. Tongue is midline. Smile is even. Teeth i n okay repair. NECK: Supple. Trachea midline. No JVD. LYMPHATICS: No lymphadenopathy. THYROID: No thyromegaly. No tenderness with palpation. BREASTS: Symmetrical with no nipple inversion, discharge. No lesions or masses. Mammogram will be ordered today. PERIPHERAL VESSELS: Radial and dorsalis pedis +2, equal bilaterally. Capillary refill less than 3 seconds. HEART: Regular rate and rhythm. LUNGS: Clear to auscultation. No wheezes, rhonchi, or rales. BACK: No CVA tenderness. ABDOMEN: Round, soft. Bowel sounds present x4 quadrants. No bruits. No organomegaly. No masses felt or tenderness with palpation. GENITALIA: Deferred. SPINE: Straight and erect posture. JOINTS: Good range of motion, age-appropriate. EXTREMITIES: Warm and dry. No peripheral edema. Muscle strength equal bilaterally. Nontender. GAIT: Strong steady gait with coordinated movements. MENTAL: Alert and oriented to person, place and time. IMPRESSION/REPORT/PLAN 1. Health maintenance. Mammogram ordered for [facility]. Patient is going to [place]. Will have this done in February. Encouraged her to continue exercising and making healthy lifestyle choices. Labs reviewed with the patient, drawn earlier in the week. Lipid profile all within normal limits. Patient concerned about her bone health. She is supplementing with calcium and vitamin D3. Reviewed the importance of keeping this consistent. Patient is due for a bone scan in January and she will order that as well before going to Endocrinology. 2. Asthma inhalers ordered today. Asthma has been well controlled. She has no complaints. 3. Hyperlipidemia. Lipid profile within normal limits. Simvastatin renewed today. The patient tolerated medications well. Encouraged her to follow up for any muscle aches or pains. 4. Hypertension. Hypertensive medications ordered as mentioned in HPI. Again, patient tolerating well and doing well. Told her to go to ER or call 911 if she had any sudden onset of worst headache of her life, numbness or tingling, chest pain, shortness of breath, abdominal pain, nausea, vomiting, or diarrhea. She verbalized good understanding. 5. Allergic rhinitis. Singulair reordered today. She tolerates that well and it does control her symptoms. 6. Urinary symptoms. The patient had labs done a week or so ago. Urine did show signs of infection. Did discuss with the patient those results. She is currently taking ciprofloxacin 500 mg 2 times a day for 7 days. In 2 weeks from starting the antibiotic, patient will have another urine test. She willschedule that today to make sure that it has cleared. Jose Diaz.P,-C./tello Electronically Signed By: DELBERT WHITAKER CNP On: 10/16/2016 11:05 AM Source: [facility] MHSDOLHUESYS Document Id: [id number] T END DRIVER documented in this encounter Miscellaneous Notes Miscellaneous - Joshua Rubin L.P.N. - 09/21/2016 10:28 AM CST Adult Hitcher Intake/History Adult Hitcher Intake/History Entered On: 09/21/2016 10:30 FRONT END DRIVER Performed On: 09/21/2016 10:28 FRONT END DRIVER by JOSHUA RUBIN LPN Intake Chief Complaint : Annual Temperature Core : 36.3 DegC(Converted to: 97.3 DegF) (LOW) Peripheral Pulse Rate : 74 /min Respiratory Rate : 16 /min Systolic Blood Pressure : 126 mmHg Diastolic Blood Pressure : 70 mmHg NIBP Mean : 89 mmHg BP Location : Right upper extremity Blood Pressure Cuff Size : Regular Height : 160.7 cm(Converted to: 5 ft 3 inch(es), 63 inch(es)) Actual Weight : 95.8 kg(Converted to: 211 lb 3 oz) Weight Source : Standing scale Dosing Weight Clinic : 95.8 kg Clinic BSA : 2.07 Body Mass Index : 37.1 kg/m2 JOSHUA RUBIN LPN - 09/21/2016 10:28 FRONT END DRIVER General Info Information Given By : Patient Preferred Communication Mode : Verbal Languages : Grenadian Is Patient Female and 13-50 no hysterectomy : No JOSHUA RUBIN LPN - 09/21/2016 10:28 FRONT END DRIVER Subjective Pain Symptoms : No JOSHUA RUBIN LPN - 09/21/2016 10:28 FRONT END DRIVER Dependent Habits Exposure to Tobacco Smoke : Other: Never Smoked Smoking Status : Never smoker Tobacco 2A : No Tobacco Use/Currently Using : No Tobacco Use/Last 30 Days : No Tobacco Use/Last 12 months : No Alcohol Use : Yes JOSHUA RUBIN LPN - 09/21/2016 10:28 FRONT END DRIVER Caffeine Use Grid Caffeine Use : Current Type : Soft drinks Frequency : Daily Amount : 1 can diet soda Last Use : 09/21/16 JOSHUA RUBIN LPN - 09/21/2016 10:28 FRONT END DRIVER Recreational Drug Use Grid Drug Use : None JOSHUA RUBIN LPN - 09/21/2016 10:28 FRONT END DRIVER Source: [facility] POWERCHART Document Id: [id number] FRONT END DRIVER!42 T END DRIVER Miscellaneous - Joshua Rubin L.P.NAntwan - 09/21/2016 10:28 AM CST Health Assessment Health Assessment Entered On: 09/21/2016 10:31 FRONT END DRIVER Performed On: 09/21/2016 10:28 FRONT END DRIVER by JOSHUA RUBIN LPN Health Assessment Complete Health Assessment Complete or Modified : Annual Health Assessment Annual Health Assessment Completed : Yes JOSHUA RUBIN LPN - 09/21/2016 10:28 FRONT END DRIVER Nutrition Nutrition Risk Factors by History Adult : None JOSHUA RUBIN LPN - 09/21/2016 10:28 FRONT END DRIVER Functional Current Daily Living Assistance : None Mobility Assistance Prior to Admission : Independent JOSHUA RUBIN LPN - 09/21/2016 10:28 FRONT END DRIVER Dependent Habits Exposure to Tobacco Smoke : Other: Never Smoked Smoking Status : Never smoker Tobacco 2A : No Tobacco Use/Currently Using : No Tobacco Use/Last 30 Days : No Tobacco Use/Last 12 months : No Alcohol Use : Yes JOSHUA RUBIN LPN - 09/21/2016 10:28 FRONT END DRIVER Caffeine Use Grid Caffeine Use : Current Type : Soft drinks Frequency : Daily Amount : 1 can diet soda Last Use : 09/21/16 JOSHUA RUBIN LPN - 09/21/2016 10:28 FRONT END DRIVER Recreational Drug Use Grid Drug Use : None JOSHUA RUBIN LPN - 09/21/2016 10:28 FRONT END DRIVER AUDIT Tool How Often Do You Have A Drink : Monthly or less How Many Drinks in a Day When Drinking : 1 or 2 Six or More Drinks On One Occassion : Never Audit Phase 1 Score : 1 JOSHUA RUBIN LPN - 09/21/2016 10:28 FRONT END DRIVER Psychosocial Domestic Abuse Concerns : None Marital Status : Number of Children : 1 Behavioral Health Screen/Safety Assmt : No Faith Preference : JOSHUA Castellanos LPN - 09/21/2016 10:28 FRONT END DRIVER Advance Directive Advanced Directives : No Advance Directive Additional Information : No JOSHUA RUBIN LPN - 09/21/2016 10:28 FRONT END DRIVER Educ Needs Learning Style Preference Adult Grid Patient : Printed materials, Verbal explanation Family : Printed materials, Verbal explanation JOSHUA RUBIN LPN - 09/21/2016 10:28 FRONT END DRIVER Source: [facility] [employer] Document Id: [id number] FRONT END DRIVER!45 T END DRIVER documented in this encounter Plan of Treatment Not on filedocumented as of this encounter Visit Diagnoses Not on filedocumented in this encounter
--- OUTSIDE RECORDS SUMMARY | 2022-07-10 08:22 | XMS_ITS | Encounter Summary ---
:1940 Author Organization [facility] Address [address] [place] [address] Care Team Providers Name Role Phone Unavailable Primary Care Provider Unavailable Encounter Details Date Type Department Care Team Description 11/18/2014 Hospital Encounter HX NO MAPPING Anabella Root M.D. [address] [place], [place] [address] (Wo rk) Social History Tobacco Use Types [...] Date CALCIUM CARB/VIT Take 1 tablet by 0 11/05/2011 D3/MINERALS mouth 2 (two) times (CALCIUM-VITAMIN D ORAL) a day. DOCOSAHEXANOIC ACID/EPA 3 (three) times a 0 12/21 (FISH OIL ORAL) day. 2 in AM 1 capsule in PM loratadine (CLARITIN) 10 Take 1 tablet by 0 08/2302/06/2018 mg tablet mouth daily as needed. documented as of this encounter Miscellaneous Notes Miscellaneous - Conversion, Historical Provider Ser - 11/18/2014 11:59 PM NETWORK STRATEGIST Coding Summary-Paper Based CODING DATE: 11/25/2014 FINAL [facility] STATUS: * Discharged to Home or Self Care PAYOR: Medicare ADMIT DX: REASON FOR VISIT DX: FINAL DX: PRINCIPAL: 788.1 Dysuria SECONDARY: PROCEDURES DOCTOR NAME DATE NOTE: The code number assigned matches the documented diagnosis and / or procedure in the patient's chart. However, the narrative phrase printed from the coding software may appear abbreviated, or result in slightly different terminology. Coded By: REVA WHITMORE Date Saved: 11/25/2014 07:58 pm Source: [facility] POWERCHART Document Id: [id number] documented in this encounter Plan of Treatment Not on filedocumented as of this encounter Visit Diagnoses Not on filedocumented in this encounter Additional Health Concerns Assessment Noted Time PHQ-9 Depression Total Score: 1 09/16/2014 9:15 AM NETWORK STRATEGIST documented as of this encounter
--- OUTSIDE RECORDS SUMMARY | 2022-07-10 08:22 | XMS_ITS | Encounter Summary ---
:1940 Author Organization [facility] Address [address] [place] [address] Care Team Providers Name Role Phone Unavailable Primary Care Provider Unavailable Encounter Details Date Type Department Care Team Description 09/13/2016 Hospital Encounter HX [facility] Whitaker, Cecily Rodriguez APRN, C.N.P., M. S.N. [address] [place], [place] [phone] (Wo rk) Social History [...] More than 4 times per year 03/16/2022 church services? Do you belong to any clubs [...] or slept in a penitentiary (including now)? Sex Assigned at Date Recorded [...] 0 Refill(s) documented as of this encounter Plan of Treatment Not on filedocumented as of this encounter Procedures Procedure Name Priority Date/Time Associated Comments Diagnosis BACTERIAL CULTURE, Routine 09/13/2016 11:47 Resul ts for this AEROBIC, URINE AM MIRROR MAKER procedure are in the results section. URINALYSIS, MIDSTREAM, Routine 09/13/2016 11:43 R esults for this WITH CULTURE IF AM MIRROR MAKER procedure ar e in INDICATED the results section. LIPID PANEL, S Routine 09/13/2016 8:26 AM Results for this MIRROR MAKER procedure are i n the results section. VITAMIN B12 AND Routine 09/13/2016 8:26 AM Result s for this FOLATE, S MIRROR MAKER procedure are i n the results section. AUTOMATED Routine 09/13/2016 8:26 AM Results f or this DIFFERENTIAL, B MIRROR MAKER procedure ar e in the results section. 25-HYDROXYVITAMIN D2 Routine 09/13/2016 8:26 AM R esults for this AND D3, S MIRROR MAKER procedure are i n the results section. CBC WITH DIFFERENTIAL, Routine 09/13/2016 8:26 AM Results for this B MIRROR MAKER procedure are i n the results section. THYROID-STIMULATING Routine 09/13/2016 8:26 AM Re sults for this HORMONE-SENSITIVE MIRROR MAKER procedure are in (S-TSH) the results section. COMPREHENSIVE Routine 09/13/2016 8:26 AM Results for this METABOLIC PANEL, S/P MIRROR MAKER procedu re are in the results section. documented in this encounter Results (ABNORMAL) Bacterial Culture, Aerobic, Urine (09/13/2016 11:47 AM MIRROR MAKER) [facility] Method Time Signature Bacterial STASIM <=0.5 POWERCHART Culture, (POSITIVE) Aerobic, Urine HXPre STASIM POWERCHART Comment: >100,000 cfu/mL Staphylococcus simulans HXFinal STASIM POWERCHART Comment: >100,000 cfu/mL Staphylococcus simulans Specimen Anatomical Collection Method Collection Time Receive d Time (Source) Location / / Volume Laterality Urine, First 09/13/2016 11:47 09/13/2016 Voided AM MIRROR MAKER 11:47 AM MIRROR MAKER Organism Antibiotic Method Susceptibility Staphylococcus simulans Ciprofloxacin SUSCEPTIBILITY, <=0.5: S usceptible ALEJANDRA (MCG/ML) Staphylococcus simulans Daptomycin SUSCEPTIBILITY, <=0.12: Susceptible ALEJANDRA (MCG/ML) Staphylococcus simulans Doxycycline SUSCEPTIBILITY, <=0.5: S usceptible ALEJANDRA (MCG/ML) Staphylococcus simulans Gentamicin SUSCEPTIBILITY, <=0.5: S usceptible ALEJANDRA (MCG/ML) Staphylococcus simulans Levofloxacin SUSCEPTIBILITY, <=0.12: Susceptible ALEJANDRA (MCG/ML) Staphylococcus simulans Linezolid SUSCEPTIBILITY, 1: Susce ptible ALEJANDRA (MCG/ML) Staphylococcus simulans Moxifloxacin SUSCEPTIBILITY, <=0.25: Susceptible ALEJANDRA (MCG/ML) Staphylococcus simulans Oxacillin SUSCEPTIBILITY, <=0.25: Susceptible ALEJANDRA (MCG/ML) Staphylococcus simulans Rifampicin SUSCEPTIBILITY, <=0.5: S usceptible ALEJANDRA (MCG/ML) Staphylococcus simulans Trimethoprim + SUSCEPTIBILITY, <=10: Ann sceptible Sulfamethoxazole ALEJANDRA (MCG/ML) Staphylococcus simulans Tetracycline SUSCEPTIBILITY, <=1: Barbara ceptible ALEJANDRA (MCG/ML) Staphylococcus simulans Vancomycin SUSCEPTIBILITY, <=0.5: S usceptible ALEJANDRA (MCG/ML) Aneta Whitaker APRN, C.N.P., M.S.N. LAB MICROB IOLOGY - GENERAL ORDERABLES Performing Organization Address City/State/[facility] Code Phon e Number POWERCHART (ABNORMAL) Urinalysis, Midstream, with culture if indicated (09/13/2016 11:43 AM MIRROR MAKER) Patholo gist Method Time Signature HXUr Color Yellow POWERCHART Clarity Slightly POWERCHART Cloudy (A) Glucose Negative MGDL POWERCHART HXBILIRUBIN Negative POWERCHART Ketones, QL(U) Negative Negative POWERCHART MGDL Specific 1.020 POWERCHART [place], POCT, U Comment: Reference Range Specific [place]: 1.000-1.035 HXBLOOD Negative POWERCHART pH, POCT, Urine 7.5 POWERCHART Comment: Reference Range pH: 5.0-8.0 Protein, Ur, Dip Negative MGDL POWERCHART Urobilinogen 0.2 MGDL POWERCHART Comment: Reference Range Urobilinogen: 0.2-1.0 mg/dL HXNITRITE Positive (A) POWERCHART Leukocyte Esterase Large (A) POWERCHART HXUR WBC. 21-30 (A) None Seen HPF POWERCHART HXUR RBC. Occ-2 None Seen HPF POWERCHART Squamous Epithelial Occ-3 (A) None Seen HPF POWERC [place] HXUR Bacteria, Present (A) None Seen POWERCHART Specimen (Source) Anatomical Collection Method Collection Time Re ceived Time Location / / Volume Laterality Urine, First 09/13/2016 11:43 Voided AM MIRROR MAKER Aneta Whitaker APRN, C.N.P., M.S.N. LAB URINE ORDERABLES Performing Organization Address [facility] Phon e Number POWERCHART Automated Differential (09/13/2016 8:26 AM MIRROR MAKER) P athologist Signature Absolute 3.50 1.70 - POWERCHART Neutrophils 7.00 109L Lymphocytes 2.21 0.90 - POWERCHART 2.90 X109L Monocytes 0.51 0.30 - POWERCHART 0.90 X109L Eosinophils 0.12 0.05 - POWERCHART 0.50 X109L Absolute 0.03 0.00 - POWERCHART Basophil 0.30 X109L Specimen Anatomical Collection Method Collection Time Receive d Time (Source) Location / / Volume Laterality Blood 09/13/2016 8:26 AM 6 8:26 MIRROR MAKER AM MIRROR MAKER Aneta Whitaker APRN, C.N.P., M.S.N. LAB BLOOD ADD-ON Performing Organization Address City/State/ZIP Code Phon e Number POWERCHART CBC with Differential (09/13/2016 8:26 AM MIRROR MAKER) athologist Signature Leukocytes 6.4 3.4 - 10.5 POWERCHART X109L Erythrocytes 4.20 3.90 - POWERCHART 5.03 [id number] Hemoglobin 12.0 12.0 - POWERCHART 15.5 GDL Hematocrit 36.7 34.9 - POWERCHART 44.5 MCV 87.4 82.0 - POWERCHART 98.0 FL HX RDW 14.9 11.9 - POWERCHART 15.5 Platelet Count 306 150 - 450 POWERCHART X109L HXDifferential? Auto POWERCHART Specimen (Source) Anatomical Collection Method Collection Time Re ceived Time Location / / Volume Laterality Blood 09/13/2016 8:26 AM MIRROR MAKER Aneta Whitaker APRN, C.N.P., M.S.N. LAB BLOOD ADD-ON Performing Organization Address City/State/[facility] Code Phon e Number POWERCHART 25-Hydroxyvitamin D2 and D3 (09/13/2016 8:26 AM MIRROR MAKER) athologist Signature HX25 HYDROXY D2 <4.0 NGML POWERCHART 25-Hydroxy D3 34 NGML POWERCHART Vitamin D, S 34 NGML POWERCHART Comment: REFERENCE VALUE------ 25-HYDROXY D TOTAL (D2+D3) Optimum level s in the healthy population are 20-50, patients with bone disease may benefit from higher levels within this r anh. ADDITIONAL INFORMATIO N This test was developed and its performa nce characteristics determined by [facility] in a manner co nsistent with CLIA requirements. This test has not been lolis ared or approved by the U.S. Food and Drug Administration. Test Performed by: [address] [place] [address] Director Of Outside Sales: Hermes Lees II, M.D., Ph.D. Specimen (Source) Anatomical Collection Method Collection Time Re ceived Time Location / / Volume Laterality Blood 09/13/2016 8:26 AM MIRROR MAKER Aneta Whitaker APRN, C.N.P., M.S.N. LAB BLOOD ADD-ON Performing Organization Address City/State/[facility] Code Phon e Number POWERCHART Vitamin B12 Level and Folate (09/13/2016 8:26 AM MIRROR MAKER) athologist Signature Vitamin B12 289 180 - 914 POWERCHART Assay, S NGL Comment: Biotin has been identified by the [facility] ctdebbier as a potential interfering substance. Higher concentrations of biotin may be found in multivitamins, hair/nail supplements, and workout supplements. If the result does not match clinical observat ions, repeat testing after patient refrains from the use of supplements for at least 12 hours. Folate, S 11.7 >=4.6 MCGL POWERCHART Comment: Biotin has been identified by the [facility] cturer as a potential interfering substance. Higher concentrations of biotin may be found in multivitamins, hair/nail supplements, and workout supplements. If the result does not match clinical observat ions, repeat testing after patient refrains from the use of supplements for at least 12 hours. Specimen (Source) Anatomical Collection Method Collection Time Re ceived Time Location / / Volume Laterality Blood 09/13/2016 8:26 AM MIRROR MAKER Victor Hugo Renteria APRNN.P., M.S.N. LAB BLOOD NON ADD-ON Performing Organization Address City/[facility] Phon e Number POWERCHART Thyroid-Stimulating Hormone-Sensitive (s-TSH) (09/13/2016 8:26 AM MIRROR MAKER) P athologist Signature TSH 1.33 0.27 - 4.20 POWERCHART (Thyrotropin) MIUL Comment: Biotin has been identified by the [facility] cturer as a potential interfering substance. Higher concentrations of biotin may be found in multivitamins, hair/nail supplements, and workout supplements. If the result does not match clinical observat ions, repeat testing after patient refrains from the use of supplements for at least 12 hours. Specimen (Source) Anatomical Collection Method Collection Time Re ceived Time Location / / Volume Laterality Blood 09/13/2016 8:26 AM MIRROR MAKER Abelardo Renteria APRN.N.Amanda., M.S.N. LAB BLOOD ADD-ON Performing Organization Address City/State/ZIP Code Phon e Number POWERCHART (ABNORMAL) Lipid Panel (09/13/2016 8:26 AM MIRROR MAKER) P athologist Signature Cholesterol, 152 <=199 MGDL POWERCHART Total Comment: 2013 National Lipid Association recommen dations for Total Cholesterol in adults ages 18 and up: Desirable <200 mg/dL Borderline high 200-239 mg/dL High 240 mg/dL 2014 National Lipid Association recommen dations for Total Cholesterol in children ages 2 to 17. Acceptable <170 mg/dL Borderline High 170-199 mg/dL High 200 mg/dL HX HDL 44 (L) >=50 MGDL POWERCHART Comment: 2013 National Lipid Association recommen dations for HDL-C in adults ages 18 and up: Low <40 mg/dL (Men) Low <50 mg/dL (Women) 2014 National Lipid Association recommen dations for HDL-C in children ages 2 to 17. Low <40 mg/dL Borderline Low 40-45 mg/dL Acceptable >45 mg/dL Triglycerides 117 <=149 MGDL POWERCHART Comment: 2013 National Lipid Association recommen dations for Triglycerides in adults ages 18 and up: Normal <150 mg/dL Borderline High 150-199 mg/dL High 200-499 mg/dL Very High 500 mg/dL 2014 National Lipid Association recommen dations for Triglycerides in children ages 2 to 9. Acceptable <75 mg/dL Borderline High 75-99 mg/dL High 100 mg/dL 2014 National Lipid Association recommen dations for Triglycerides in children ages 10 to 17. Acceptable <90 mg/dL Borderline High 90-129 mg/dL High 130 mg/dL Trigs >400mg/dL: Triglycerides >400 mg/ dL. Calculated LDL cholesterol is not valid. Non-HDL cholesterol may be used for risk assessment when triglycerides are >400mg/dL. Calculated LDL 85 <=129 MGDL POWERCHART Comment: 2013 National Lipid Association recommen dations for LDL-C in adults ages 18 and up: Desirable <100 mg/dL Above desirable 100-129 mg/dL Borderline high 130-159 mg/dL High 160-189 mg/dL Very High 190 mg/dL 2014 National Lipid Association recommen dations for LDL-C in children ages 2 to 17. Acceptable <110 mg/dL Borderline High 110-129mg/dL High 130 mg/dL LDL-C >190mg/dL: The markedly elevated LDL level is suggestive of a genetic condition such as familial hypercholesterolemia(FH) or familial defective apolipoprotein B-100 (FDB). Molecular genetic t esting for FH and FDB is available [facility]: FH/ADH Genetic Reflex [place] (test ADHP). Acquired (non-genetic) causes of markedly increased LDL cholesterol include cholestatic liver disease due to the presence of LpX. If a genetic form of hypercholesterolemia is suspected, family studies including biochemical testing fo r lipids (total cholesterol,triglycerides, LDL cholesterol and HDL cholesterol) are recommended. ??Please contact the laboratory at or the on-line test catalog at [employer] for information about how to order these ghada ts or to speak with a genetic counselor. Further interpretation would require clinical information. Total Cholesterol/HDL Ratio 3.00 PO WERCHART HXLDL/HDL 2 POWERCHART Specimen (Source) Anatomical Collection Method Collection Time Re ceived Time Location / / Volume Laterality Blood 09/13/2016 8:26 AM MIRROR MAKER Aneta Whitaker APRN, C.N.P., M.S.N. LAB BLOOD ADD-ON Performing Organization Address City/State/ZIP Code Phon e Number POWERCHART (ABNORMAL) CMP (Comprehensive Metabolic Panel) (09/13/2016 8:26 AM MIRROR MAKER) [facility] gist Method Time Signature Alanine 20 7 - 45 POWERCHART Amniotransferase, LD UNITL Albumin, S 4.0 3.2 - 5.2 POWERCHART GDL Alkaline 73 35 - 105 POWERCHART Phosphatase, S UL Aspartate 21 8 - 43 POWERCHART Aminotransferase UNITL (AST), S Sodium, S 140 135 - 145 POWERCHART MMOLL Potassium, S 4.2 3.6 - 5.2 POWERCHART MMOLL Chloride, S 102 98 - 107 POWERCHART MMOLL CO2 Total 27 22 - 29 POWERCHART MMOLL Glucose, Fasting, S 110 (H) 70 - 99 POWERCHART MGDL BUN (Blood Urea 17 6 - 21 POWERCHART Nitrogen), S MGDL Creatinine 0.81 0.60 - POWERCHART 1.10 MGDL Calcium, Total, S 9.7 8.8 - POWERCHART 10.3 MGDL Anion Gap 11 7 - 15 POWERCHART MMOLL HXeGFR (MDRD) >60 >=60 POWERCHART [id number] 2 eGFR Black/ >60 >=60 POWERCHART [place] [id number] 2 Bilirubin, Total, S 0.5 <=1.2 POWERCHART MGDL Total Protein, S 7.1 6.4 - 8.3 POWERCHART GDL Specimen (Source) Anatomical Collection Method Collection Time Re ceived Time Location / / Volume Laterality Blood 09/13/2016 8:26 AM MIRROR MAKER Aneta Whitaker APRN C.N.P., M.S.N. LAB BLOOD ADD-ON Performing Organization Address City/State/ZIP Code Phon e Number POWERCHART documented in this encounter Visit Diagnoses Not on filedocumented in this encounter
--- OUTSIDE RECORDS SUMMARY | 2022-07-10 08:22 | XMS_ITS | Encounter Summary ---
:1940 Author Organization [facility] Address [address] [place] [address] Care Team Providers Name Role Phone Unavailable Primary Care Provider Unavailable Encounter Details Date Type Department Care Team Description 09/13/2016 Hospital Encounter HX NO MAPPING Aneta Whitaker APRN, C.N.P., M. S.N. [address] [place], [place] [phone] (Wo rk) Social History [...] or relatives? How often do you attend [employer] or More than 4 times per year 03/16/2022 latter day services? Do you belong to any clubs or Yes 03/16/2022 organizations such as [employer] groups, unions, fraternal or athletic groups, or [...] 0 Refill(s) documented as of this encounter Miscellaneous Notes Miscellaneous - Conversion, Historical Provider Ser - 09/13/2016 11:59 PM DATA ENTRY PROCESSOR Coding Summary-Paper Based CODING DATE: 09/25/2016 FINAL [facility] STATUS: * Discharged to Home or Self Care PAYOR: Medicare ADMIT DX: REASON FOR VISIT DX: FINAL DX: PRINCIPAL: Z00.00 Encounter for general adult medical examination without abnormal findings SECONDARY: E78.5 Hyperlipidemia, unspecified E03.9 Hypothyroidism, unspecified R73.03 Prediabetes PROCEDURES DOCTOR NAME DATE NOTE: The code number assigned matches the documented diagnosis and / or procedure in the patient's chart. However, the narrative phrase printed from the coding software may appear abbreviated, or result in slightly different terminology. Coded By: WIL ROSALES Date Saved: 09/25/2016 08:46 am [facility] Document Id: [id number] documented in this encounter Plan of Treatment Not on filedocumented as of this encounter Visit Diagnoses Not on filedocumented in this encounter
--- OUTSIDE RECORDS SUMMARY | 2022-07-10 08:22 | XMS_ITS | Encounter Summary ---
:1940 Author Organization [facility] Address [address] [place] [address] Care Team Providers Name Role Phone Unavailable Primary Care Provider Unavailable Encounter Details Date Type Department Care Team Description 10/16/2016 Hospital Encounter HX [facility] FAMILYPRA Delbert Whitaker APRN C.N.P., M.S.N. [address] [place] [address] (Wo rk) Social History Tobacco Use Types [...] 03/16/2022 organizations such as shinto groups, unions, fraternal or athletic groups, or [...] Sign Reading Time Taken Comments Blood Pressure 138/68 10/16/2016 2:24 PM BUSINESS CONTROLLER Pulse 68 10/16/2016 2:24 PM BUSINESS CONTROLLER Temperature - - Respiratory Rate 16 10/16/2016 2:24 PM BUSINESS CONTROLLER Oxygen Saturation - - Inhaled Oxygen Concentration - - Weight 96.9 kg (213 lb 10 oz) 10/16/2016 2:24 PM BUSINESS CONTROLLER Height - - Body Mass Index 37.52 09/21/2016 10:28 AM BUSINESS CONTROLLER documented in this encounter Medications at Time of Discharge Medication Sig Dispensed Refills Start Date End Date amoxicillin (AMOXIL) Take 2,000 mg by 0 6 500 mg capsule mouth. CALCIUM CARB/VIT Take 1 tablet by mouth 0 012 D3/MINERALS 2 (two) times a day. (CALCIUM-VITAMIN D ORAL) DOCOSAHEXANOIC ACID/EPA 3 (three) times a day. 0 12/21/2009 (FISH OIL ORAL) 2 in AM 1 capsule in PM amoxicillin Take 2,000 mg by 0 09/27/2016 018 (for_AMOXIL) 500 mg mouth. capsule loratadine (CLARITIN) Take 1 tablet by mouth 0 02/06/2018 10 mg tablet daily as needed. triamcinolone triamcinolone 0.1% 0 02/15/2016 (for_KENALOG) 0.1 % topical cream See cream Instructions, 1 keiry Topical prn listed in doc by history, 15 gm, 0 Refill(s) documented as of this encounter Progress Notes Sherman, Delbert Rodriguez APRN, PATTERN CLEANER - 10/16/2016 2:01 PM CST [id number] CHIEF COMPLAINT/REASON FOR VISIT Right ingrown toenail and rash. HISTORY OF PRESENT ILLNESS A very pleasant 75-year-old female presents for followup of right great toenail that had been ingrown. She has been doing some warm soaks with Epsom salts, applying some cream to the area. She has beenpulling the toenail away from the skin and cut it short and it appears to be resolving now. There isstill some mild tenderness but much improved from previous evaluation. No erythema. No exudate. No open areas. Patient also concerned about a rash she has on her bilateral ankles and feet. There are small, white, raised, rough, dry areas. Unknown what it is and how to treat. Denies any recent illnesses. No fevers, chills, headache, neck pain, chest pain, shortness of breath, abdominal pain, nausea, vomiting or diarrhea. MEDICATIONS Reviewed today. See medication [...] Cerner. PHYSICAL EXAMINATION GENERAL: Well-appearing adult, no distress. SKIN: Right great toe improved from previous visit. There is no erythema or edema. Toenail has been cut, not imbedded in the skin any longer towards the most distal end, it is now flat. Skin is smooth.Circular, raised, silvery, rough-marking rash to the bilateral ankles. There is no erythema. There are no open areas. No bleeding or scabbing. IMPRESSION/REPORT/PLAN 1. Ingrown toenail. This is resolving. Continue current treatment plan. Continue applying the cream and pulling nail away from the toe. 2. Tinea versicolor. Clotrimazole cream prescribed. Education regarding medication, side effects andapplication discussed. Apply to the area twice a day. Could take up to 3 to 4 weeks. If symptoms do not improve or worsen to let me know. The patient does have a dermatology appointment in January. Encouraged her to keep that appointment and to follow up for any other acute healthcare problem or concern. She verbalized good understanding and agreed to plan. Delbert Whitaker, F.N.P,-C./tello Electronically Signed By: DELBERT WHITAKER CNP On: 10/29/2016 05:17 PM Source: [facility] MHSDOLRAYMOND Document Id: [id number] NESS CONTROLLER documented in this encounter Miscellaneous Notes Miscellaneous - Joshua Rubin L.P.N. - 10/16/2016 2:24 PM CST Adult Pricing Specialist Intake/History Adult Pricing Specialist Intake/History Entered On: 10/16/2016 14:27 BUSINESS CONTROLLER Performed On: 10/16/2016 14:24 BUSINESS CONTROLLER by JOSHUA RUBIN LPN Intake Chief Complaint : Recheck right great toe Temperature Core : 36.7 DegC(Converted to: 98.1 DegF) Peripheral Pulse Rate : 68 /min Respiratory Rate : 16 /min Systolic Blood Pressure : 138 mmHg Diastolic Blood Pressure : 68 mmHg NIBP Mean : 91 mmHg BP Location : Right upper extremity Blood Pressure Cuff Size : Regular Actual Weight : 96.9 kg(Converted to: 213 lb 10 oz) Weight Source : Standing scale Dosing Weight Clinic : 96.9 kg JOSHUA RUBIN LPN - 10/16/2016 14:24 BUSINESS CONTROLLER General Info Information Given By : Patient Preferred Communication Mode : Verbal Languages : Spanish Is Patient Female and 13-50 no hysterectomy : No JOSHUA RUBIN LPN - 10/16/2016 14:24 BUSINESS CONTROLLER Subjective Pain Symptoms : No (Comment: states yes when she bumps it. [JOSHUA RUBIN LPN - 10/16/2016 14:24 BUSINESS CONTROLLER] ) JOSHUA RUBIN LPN - 10/16/2016 14:24 BUSINESS CONTROLLER Dependent Habits Exposure to Tobacco Smoke : Other: Never Smoked Smoking Status : Never smoker Tobacco 2A : No Tobacco Use/Currently Using : No Tobacco Use/Last 30 Days : No Tobacco Use/Last 12 months : No Alcohol Use : No JOSHUA RUBIN LPN - 10/16/2016 14:24 BUSINESS CONTROLLER Caffeine Use Grid Caffeine Use : Current Type : Soft drinks Frequency : Daily Amount : 1 can diet soda Last Use : 10/16/2016 JOSHUA RUBIN LPN - 10/16/2016 14:24 BUSINESS CONTROLLER Recreational Drug Use Grid Drug Use : None JOSHUA RUBIN LPN - 10/16/2016 14:24 BUSINESS CONTROLLER Source: [facility] [employer] Document Id: [id number] BUSINESS CONTROLLER!39 NESS CONTROLLER documented in this encounter Plan of Treatment Not on filedocumented as of this encounter Visit Diagnoses Not on filedocumented in this encounter
--- OUTSIDE RECORDS SUMMARY | 2022-07-10 08:22 | XMS_ITS | Encounter Summary ---
:1940 Author Organization [facility] Address [address] [place] [address] Care Team Providers Name Role Phone Unavailable Primary Care Provider Unavailable Encounter Details Date Type Department Care Team Description 07/01/2015 Hospital Encounter HX NO MAPPING Aneta Whitaker APRN, C.N.P., M. S.N. [address] [place], [place] [phone] (Wo rk) Social History [...] many times do you More than three bsii es a week 03/16/2022 talk on the phone with family, friends, or neighbors? How often do you get together with friends Once a week 03/16/2022 or relatives? How often do you attend buddhist or More than 4 times per year 03/16/2022 scientology services? Do you belong to any clubs or Yes 03/16/2022 organizations such as buddhist groups, unions, fraternal or athletic groups, or [...] slept in a senior living (including now)? Sex Assigned at Date Recorded [...] Miscellaneous - Conversion, Historical Provider Ser - 07/01/2015 11:59 PM CDT Coding Summary-Paper Based CODING DATE: 07/12/2015 FINAL [facility] STATUS: * Discharged to Home [...] result in slightly different terminology. Coded By: FRANCINE VIZCARRA Date Saved: 07/12/2015 01:20 pm Source: [employer] Document Id: [id number] documented in this encounter Plan of Treatment Not on filedocumented as of this encounter Visit Diagnoses Not on filedocumented in this encounter Additional Health Concerns Assessment Noted Time PHQ-9 Depression Total Score: 5 07/01/2015 8:48 AM CDT documented as of this encounter
--- OUTSIDE RECORDS SUMMARY | 2022-07-10 08:22 | XMS_ITS | Encounter Summary ---
:1940 [address] Organization [facility] Address [address] [place] [address] Care Team Providers Name Role Phone Unavailable Primary Care Provider Unavailable Encounter Details Date Type Department Care Team Description 09/20/2015 Hospital Encounter HX [facility] Aneta Whitaker APRN C.N.P., M.S.N. [address] [place] [address] (Wo rk) Social History Tobacco Use Types [...] or relatives? How often do you attend cheondoism or More than 4 times per year 03/16/2022 quaker services? Do you belong to any clubs or Yes 03/16/2022 organizations such as cheondoism groups, unions, fraternal or athletic groups, or [...] Sign Reading Time Taken Comments Blood Pressure 121/74 09/20/2015 8:29 AM SENIOR ADVISORY Pulse 72 09/20/2015 8:29 AM SENIOR ADVISORY Temperature - - Respiratory Rate 16 09/20/2015 8:29 AM SENIOR ADVISORY Oxygen Saturation - - Inhaled Oxygen Concentration - - Weight 95.6 kg (210 lb 12.2 oz) 09/20/2015 8:29 AM SENIOR ADVISORY Height 161.8 cm (5' 3.7) 09/20/2015 8:29 AM SENIOR ADVISORY Body Mass Index 36.52 09/20/2015 8:29 AM SENIOR ADVISORY documented in this encounter Medications at Time [...] as needed. documented as of this encounter H&P Notes Aneta Whitaker APRN, SLURRY BLENDER - 09/20/2015 8:23 AM CST [id number] CHIEF COMPLAINT/REASON FOR VISIT Annual exam. HISTORY OF PRESENT ILLNESS A very pleasant 74-year-old female presents for annual physical exam. She states she is doing very well. Did have recent left knee surgery and states it has been a long haul but she is doing much better. Started working out last month at the gym. She has a bilingual trainer and she says since she has been doingthat she has been feeling a lot better. She does have a history of hypertension, hyperlipidemia and hypothyroidism, taking medications for these and all have been well controlled. Reviewed her family history today. Patient, last week moving boxes moving to a new house. She lifted up a box wrong and states that her left medial wrist has some discomfort when she hyperextends or flexes her wrist. No redness. No edema. No warmth. No open areas. Denies any recent illnesses such as fevers, chills, headache, neck pain, chest pain, shortness of breath, abdominal pain, nausea, vomiting, diarrhea. MEDICATIONS Reviewed. See EMR medication list. ALLERGIES Reviewed. See EMR allergy list. SYSTEMS REVIEW Negative except for pertinent positives in HPI. PAST MEDICAL/SURGICAL HISTORY See EMR history and procedures. SOCIAL HISTORY Reviewed. No changes. FAMILY HISTORY Reviewed. No changes. Both father and brother of lung cancer, and mother of a heart attackat the age of 90. Heart attack was secondary to a fall. Discovered that she had a rare clotting problem when the weather turns cold. VITAL SIGNS Refer to EMR vital signs flowsheet. PHYSICAL EXAMINATION GENERAL: Well-appearing adult, no acute [...] No thyromegaly. No tenderness with palpation. BREASTS: This is deferred today according to current guidelines. However patient does do self-breastexams, has not felt any lumps. No abnormal mammogram in the past. PERIPHERAL VESSELS: Radial and dorsalis pedis +2, [...] peripheral edema. Muscle strength equal bilaterally. Nontender. Left wrist without erythema or edema or warmth over the medial aspect of the wrist. There is mild tenderness during flexion and extension. No tenderness on palpation. GAIT: Strong steady gait with coordinated movements. MENTAL: Alert and oriented to person, place and time. IMPRESSION/REPORT/PLAN 1. Health maintenance. Mammogram ordered for when she returns home from [place] in February. Strongly encouraged her to continue working out and doing cardiovascular work as well and making healthy lifestyle choices. All labs drawn and urine collected for analysis. 2. Left wrist sprain. Encouraged patient to wear splint type brace as needed during wrist activity and as-needed if symptoms worsen with increase in swelling, redness or warmth to either go to ER or return to clinic for further evaluation. The patient verbalized good understanding. 3. Hypothyroidism. Labs drawn today. Will notify patient of results and refill medication. 4. Hypertension. Blood pressure well controlled. Renewed all medications. Labs drawn today CBC, CMP. 5. Hyperlipidemia. She will continue on the pravastatin, tolerating it without any problems. Renewedmedications today. Lipid panel drawn today. Hemoglobin A1c also drawn today. Antolin Diaz -C./tello Electronically Signed By: ANETA WHITAKER CNP On: 10/18/2015 12:09 PM Source: [facility] MHSDOLBEYNONRADSYS Document Id: [id number] OR ADVISORY documented in this encounter Miscellaneous Notes Telephone Encounter - Conversion, Historical Provider Ser - 10/13/2015 9:54 AM CST *Phone Message Document Contains Addenda Addendum by STEPHEN RUBIN LPN on 13 October 2015 11:49:49 SENIOR ADVISORY From: STEPHEN RUBIN LPN ([facility] Nurse) To: ANETA WHITAKER CNP; Sent: 10/13/2015 11:49:49 SENIOR ADVISORY Subject: RE: *Phone Message FYI: Patient states she got a new order for her prednisone by her anesthesiologist and critical care in [place]. She states she is feeling congested on the half dose of prednisone. She states she is going to increase the dose andkeep taking it until she feels better, at that time she will then decrease the dose for the four days and then stop. She states she has an appointment with PCP on next Saturday, and at that time she will bring up if this works for her. From: JEREMIAH ELLSWORTH ([facility] Controller) [facility] Nurse; Sent: 10/13/2015 09:54:00 SENIOR ADVISORY Subject: *Phone Message Caller is: ( x) Patient ( ) Mother ( ) Father ( ) Spouse ( ) Daughter ( ) Son ( ) Pharmacy ( ) Other: Physician: Patient MRN #: Reason for Call: Patient is very congested. She is currently on Prednisone but has been on long enough for things to be better and they are not better. Should she keep taking it? [phone] Message: Advice/Action: Source used: ( ) Verbalizes understanding of instructions ( ) Instructed to call back if symptoms worsen or do not resolve ( ) Refused to see provider ( ) Appointment Scheduled ( ) OK to leave message on voice mail ( ) Patient told to expect return call: ( ) today ( ) tomorrow ( ) next work day ( ) Patient's email ( ) Patient told physician out of office, will call upon return call on ( ) ( ) Patient told physician out of office, routed to other physician ( ) Other ( ) Call back telephone number ( ) Call back cell phone number ( ) Source: [facility] POWERCHART Document Id: [id number] Miscellaneous - Aneta Whitaker APRN, SLURRY BLENDER - 09/27/2015 10:18 AM SENIOR ADVISORY Lab results Document Contains Addenda Addendum by STEPHEN RUBIN LPN on 27 September 2015 14:02:41 SENIOR ADVISORY Patient is aware and she is making an appointment at this time. From: ANETA WHITAKER CNP To: DAVID Pascual [facility] Medicine Nurse; Sent: 09/27/2015 10:18:33 SENIOR ADVISORY Subject: Lab results If possible please have patient follow up regarding labs. Prediabetic. Thank you. Source: [facility] [employer] Document Id: [id number] James - Stephen Rubin L.P.NAntwan - 09/20/2015 8:43 AM CST PHQ-9 PHQ-9 Entered On: 09/20/2015 8:43 SENIOR ADVISORY Performed On: 09/20/2015 8:43 SENIOR ADVISORY by STEPHEN RUBIN LPN PHQ-9 Little interest or pleasure in doing things : Not at all Feeling down, depressed, or hopeless : Not at all Trouble falling or staying asleep, or sleeping too much : Not at all Feeling tired or having little energy : Several days Poor appetite or overeating : Not at all Feeling bad about yourself or that you are a failure : Not at all Trouble concentrating on things : Not at all Moving or speaking slowly; restless or fidgety : Not at all Thoughts that you would be better off /hurting self : Not at all PHQ-9 Calculated Score : 1 Problems make work, home, or dealing with others : Not difficult at all STEPHEN RUBIN LPN - 09/20/2015 8:43 SENIOR ADVISORY Source: [facility] [employer] Document Id: [id number] SENIOR ADVISORY!13 OR ADVISORY Amandacellavani - Stephen Rubin L.P.NAntwan - 09/20/2015 8:29 AM CST Adult Enterostomal Nurse Intake/History Adult Enterostomal Nurse Intake/History Entered On: 09/20/2015 8:33 SENIOR ADVISORY Performed On: 09/20/2015 8:29 SENIOR ADVISORY by STEPHEN RUBIN LPN Intake Chief Complaint : physical Temperature Core : 36.6 DegC(Converted to: 97.9 DegF) Peripheral Pulse Rate : 72 /min Respiratory Rate : 16 /min Systolic Blood Pressure : 121 mmHg Diastolic Blood Pressure : 74 mmHg NIBP Mean : 90 mmHg BP Location : Right upper extremity Blood Pressure Cuff Size : Large Height : 161.8 cm(Converted to: 5 ft 4 inch(es), 64 inch(es)) Actual Weight : 95.6 kg(Converted to: 210 lb 12 oz) Weight Source : Standing scale Dosing Weight Clinic : 95.6 kg Clinic BSA : 2.07 Body Mass Index : 36.52 kg/m2 STEPHEN RUBIN LPN - 09/20/2015 8:29 SENIOR ADVISORY General Info Information Given By : Patient Preferred Communication Mode : Verbal Languages : Vietnamese Is Patient Female and 13-50 no hysterectomy : No STEPHEN RUBIN LPN - 09/20/2015 8:29 SENIOR ADVISORY Subjective Pain Symptoms : Yes STEPHEN RUBIN LPN - 09/20/2015 8:29 SENIOR ADVISORY Pain Scale Pain Scale Verbal 0-10 : Open STEPHEN RUBIN LPN - 09/20/2015 8:29 SENIOR ADVISORY Pain Pain Assessment Grid Pain 1 Location : Wrist Laterality : Left Intensity : 7 Duration : 1 day STEPHEN RUBIN LPN - 09/20/2015 8:29 SENIOR ADVISORY Dependent Habits Exposure to Tobacco Smoke : Other: Never Smoked Smoking Status : Never smoker Tobacco 2A : No Alcohol Use : Yes STEPHEN RUBIN LPN - 09/20/2015 8:29 SENIOR ADVISORY Caffeine Use Grid Caffeine Use : Current Type : Soft drinks Frequency : Daily Amount : 1 can diet soda Last Use : 09/19/15 STEPHEN RUBIN LPN - 09/20/2015 8:29 SENIOR ADVISORY Recreational Drug Use Grid Drug Use : None STEPHEN RUBIN LPN - 09/20/2015 8:29 SENIOR ADVISORY [facility] POWERCHART Document Id: [id number] SENIOR ADVISORY!48 OR ADVISORY Miscellaneous - Stephen Rubin L.P.N. - 09/20/2015 8:29 AM CST Health Assessment Health Assessment Entered On: 09/20/2015 8:35 SENIOR ADVISORY Performed On: 09/20/2015 8:29 SENIOR ADVISORY by STEPHEN RUBIN LPN Health Assessment Complete Health Assessment Complete or Modified : Annual Health Assessment Annual Health Assessment Completed : Yes STEPHEN RUBIN LPN - 09/20/2015 8:29 SENIOR ADVISORY Nutrition Nutrition Risk Factors by History Adult : None STEPHEN RUBIN LPN - 09/20/2015 8:29 SENIOR ADVISORY Functional Current Daily Living Assistance : None Mobility Assistance Prior to Admission : Independent STEPHEN RUBIN LPN - 09/20/2015 8:29 SENIOR ADVISORY Dependent Habits Exposure to Tobacco Smoke : Other: Never Smoked Smoking Status : Never smoker Tobacco 2A : No STEPHEN RUBIN LPN - 09/20/2015 8:29 SENIOR ADVISORY Caffeine Use Grid Caffeine Use : Current Type : Soft drinks Frequency : Daily Amount : 1 can diet soda Last Use : 09/19/15 STEPHEN RUBIN LPN - 09/20/2015 8:29 SENIOR ADVISORY Alcohol Use : Yes STEPHEN RUBIN LPN - 09/20/2015 8:29 SENIOR ADVISORY Recreational Drug Use Grid Drug Use : None STEPHEN RUBIN LPN - 09/20/2015 8:29 SENIOR ADVISORY AUDIT Tool How Often Do You Have A Drink : Monthly or less How Many Drinks in a Day When Drinking : 1 or 2 Six or More Drinks On One Occassion : Never Audit Phase 1 Score : 1 STEPHEN RUBIN LPN 09/20/2015 8:29 SENIOR ADVISORY Psychosocial Domestic Abuse Concerns : None Marital Status : Behavioral Health Screen/Safety Assmt : No Education : High School Graduate [employer] Preference : STEPHEN Castellanos LPN - 09/20/2015 8:29 SENIOR ADVISORY Advance Directive Advanced Directives : No Advance Directive Additional Information : No STEPHEN RUBIN LPN - 09/20/2015 8:29 SENIOR ADVISORY Educ Needs Learning Style Preference Adult Grid Patient : Printed materials, Verbal explanation Family : None STEPHEN RUBIN LPN 09/20/2015 8:29 SENIOR ADVISORY Source: [facility] POWERCHART Document Id: [id number] SENIOR ADVISORY!42 OR ADVISORY documented in this encounter Plan of Treatment Not on filedocumented as of this encounter Procedures Procedure Name Priority Date/Time Associated Comments Diagnosis BACTERIAL CULTURE, Routine 09/20/2015 10:14 Resul ts for this AEROBIC, URINE AM SENIOR ADVISORY procedure are in the results section. URINALYSIS, MIDSTREAM, Routine 09/20/2015 10:11 R esults for this WITH CULTURE IF AM SENIOR ADVISORY procedure ar e in INDICATED the results section. LIPID PANEL, S Routine 09/20/2015 9:10 AM Results for this SENIOR ADVISORY procedure are i n the results section. VITAMIN B12 AND Routine 09/20/2015 9:10 AM Result s for this FOLATE, S SENIOR ADVISORY procedure are i n the results section. AUTOMATED Routine 09/20/2015 9:10 AM Results f or this DIFFERENTIAL, B SENIOR ADVISORY procedure ar e in the results section. 25-HYDROXYVITAMIN D2 Routine 09/20/2015 9:10 AM R esults for this AND D3, S SENIOR ADVISORY procedure are i n the results section. CBC WITH DIFFERENTIAL, Routine 09/20/2015 9:10 AM Results for this B SENIOR ADVISORY procedure are i n the results section. THYROID-STIMULATING Routine 09/20/2015 9:10 AM Re sults for this HORMONE-SENSITIVE SENIOR ADVISORY procedure are in (S-TSH) the results section. HEMOGLOBIN A1C, B Routine 09/20/2015 9:10 AM Resu lts for this SENIOR ADVISORY procedure are i n the results section. COMPREHENSIVE Routine 09/20/2015 9:10 AM Results for this METABOLIC PANEL, S/P SENIOR ADVISORY procedu re are in the results section. documented in this encounter Results Bacterial Culture, Aerobic, Urine (09/20/2015 10:14 AM SENIOR ADVISORY) Analysis Performed At [facility] Time Signature Bacterial POWERCHART Culture, Aerobic, Urine HXFinal No growth POWERCHART Specimen Anatomical Collection Method Collection Time Receive d Time (Source) Location / / Volume Laterality Urine, First 09/20/2015 10:14 09/20/2015 Voided AM SENIOR ADVISORY 10:14 AM SENIOR ADVISORY Aneta Whitaker APRN, C.N.P., M.S.N. LAB MICROB IOLOGY - GENERAL ORDERABLES Performing Organization Address City/State/ZIP Code Phon e Number POWERCHART (ABNORMAL) Urinalysis, Midstream, with culture if indicated (09/20/2015 10:11 AM SENIOR ADVISORY) [facility] gist Method Time Signature Clarity Clear POWERCHART HXUr Color Yellow POWERCHART Specific 1.015 POWERCHART [place], POCT, U pH, POCT, Urine 7.0 POWERCHART Protein, Ur, Dip Negative MGDL POWERCHART Glucose Negative MGDL POWERCHART Ketones, QL(U) Negative MGDL POWERCHART HXBILIRUBIN Negative POWERCHART HXBLOOD Trace (A) POWERCHART Leukocyte Large (A) POWERCHART Esterase HXNITRITE Negative POWERCHART Urobilinogen 0.2 MGDL POWERCHART HXUR WBC. 4-10 None Seen POWERCHART HPF HXUR RBC. Occ-2 None Seen POWERCHART HPF Squamous 4-10 (A) None Seen POWERCHART Epithelial HPF HXUR Bacteria, None Seen None Seen POWERCHART Specimen (Source) Anatomical Collection Method Collection Time Re ceived Time Location / / Volume Laterality Urine, First 09/20/2015 10:11 Voided AM SENIOR ADVISORY Aneta Whitaker APRN, C.N.P., M.S.N. LAB URINE ORDERABLES Performing Organization Address City/State/ZIP Code Phon e Number POWERCHART Automated Differential (09/20/2015 9:10 AM SENIOR ADVISORY) athologist Signature Absolute 3.76 1.70 - POWERCHART Neutrophils 7.00 109L Lymphocytes 1.82 0.90 - POWERCHART 2.90 X109L Monocytes 0.47 0.30 - POWERCHART 0.90 X109L Eosinophils 0.16 0.05 - POWERCHART 0.50 X109L Absolute 0.02 0.00 - POWERCHART Basophil 0.30 X109L Specimen Anatomical Collection Method Collection Time Receive d Time (Source) Location / / Volume Laterality Blood 09/20/2015 9:10 AM 5 9:10 SENIOR ADVISORY AM SENIOR ADVISORY Aneta Whitaker APRN, C.N.P., M.S.N. LAB BLOOD ADD-ON Performing Organization Address City/State/ZIP Code Phon e Number POWERCHART CBC with Differential (09/20/2015 9:10 AM SENIOR ADVISORY) athologist Signature Leukocytes 6.2 3.4 - 10.5 POWERCHART X109L Erythrocytes 4.50 3.90 - 5.03 POWERCHART [id number] Hemoglobin 12.4 12.0 - 15.5 POWERCHART GDL Hematocrit 39.4 34.9 - 44.5 POWERCHART MCV 87.6 82.0 - 98.0 POWERCHART FL HX RDW 14.8 11.9 - 15.5 POWERCHART Platelet Count 315 150 - 450 POWERCHART X109L Specimen (Source) Anatomical Collection Method Collection Time Re ceived Time Location / / Volume Laterality Blood 09/20/2015 9:10 AM SENIOR ADVISORY Victor Hugo Renteria APRNN.Amanda., M.S.N. LAB BLOOD ADD-ON Performing Organization Address City/State/ZIP Code Phon e Number POWERCHART 25-Hydroxyvitamin D2 and D3 (09/20/2015 9:10 AM SENIOR ADVISORY) athologist Signature HX25 HYDROXY D2 <4.0 NGML POWERCHART 25-Hydroxy D3 30 NGML POWERCHART Vitamin D, S 30 NGML POWERCHART Comment: REFERENCE VALUE------ 25-HYDROXY D TOTAL (D2+D3) Optimum level s in the healthy population are 20-50, patients with bone disease may benefit from higher levels within this r anh. Test Performed by: [place] [id number] Office Clerk Routine: Hermes Lees II, M.D., Ph.D. Specimen (Source) Anatomical Collection Method Collection Time Re ceived Time Location / / Volume Laterality Blood 09/20/2015 9:10 AM SENIOR ADVISORY Abelardo Renteria APRN.N.P., M.S.N. LAB BLOOD ADD-ON Performing Organization Address City/State/ZIP Code Phon e Number POWERCHART Vitamin B12 Level and Folate (09/20/2015 9:10 AM SENIOR ADVISORY) athologist Signature Vitamin B12 245 180 - 914 POWERCHART Assay, S NGL Folate, S 10.9 >=4.0 NGML POWERCHART Specimen (Source) Anatomical Collection Method Collection Time Re ceived Time Location / / Volume Laterality Blood 09/20/2015 9:10 AM SENIOR ADVISORY Aneta Whitaker APRN C.N.P., M.S.N. LAB BLOOD NON ADD-ON Performing Organization Address City/State/ZIP Code Phon e Number POWERCHART (ABNORMAL) Lipid Panel (09/20/2015 9:10 AM SENIOR ADVISORY) P athologist Signature Calculated LDL 96 <=129 MGDL POWERCHART Comment: 2013 National Lipid [...] for FH and FDB is available maxim [facility]: FH/ADH Genetic Reflex [place] (test ADHP). Acquired (non-genetic) causes of markedly increased LDL cholesterol include cholestatic liver disease due to the presence of LpX. If a genetic form of hypercholesterolemia is suspected, family studies including biochemical testing fo r lipids (total cholesterol,triglycerides, LDL cholesterol and HDL cholesterol) are recommended. ??Please contact the laboratory at or the on-line test catalog at [employer] for information about how to order these ghada ts or to speak with a genetic counselor. Further interpretation would require clinical information. Total Cholesterol/HDL Ratio 4.05 PO WERCHART Cholesterol, Total 166 <=199 MGDL POWERCHART Comment: 2013 National Lipid Association recommen dations for Total Cholesterol in adults ages 18 and up: Desirable <200 mg/dL Borderline high 200-239 mg/dL High 240 mg/dL 2014 National Lipid Association recommen dations for Total Cholesterol in children ages 2 to 17. Acceptable <170 mg/dL Borderline High 170-199 mg/dL High 200 mg/dL HX HDL 41 (L) >=50 MGDL POWERCHART Comment: 2014 National Lipid Association recommen dations for HDL-C in adults ages 18 and up: Low <40 mg/dL (Men) Low <50 mg/dL (Women) 2013 National Lipid Association recommen dations for HDL-C in children ages 2 to 17. Low <40 mg/dL Borderline Low 40-45 mg/dL Acceptable >45 mg/dL Triglycerides 146 <=149 MGDL POWERCHART Comment: 2013 National Lipid Association recommen dations for Triglycerides in adults ages 18 and up: Normal <150 mg/dL Borderline High 150-199 mg/dL High 200-499 mg/dL Very High 500 mg/dL 2013 National Lipid Association recommen dations for [...] for risk assessment when triglycerides are >400mg/dL. HXLDL/HDL 2 POWERCHART Specimen (Source) Anatomical Collection Method Collection Time Re ceived Time Location / / Volume Laterality Blood 09/20/2015 9:10 AM SENIOR ADVISORY Abelardo Renteria APRN.N.Amanda., M.S.N. LAB BLOOD ADD-ON Performing Organization Address City/State/ZIP Code Phon e Number POWERCHART Thyroid-Stimulating Hormone-Sensitive (s-TSH) (09/20/2015 9:10 AM SENIOR ADVISORY) P athologist Signature TSH 2.68 0.27 - 4.20 POWERCHART (Thyrotropin) MIUL Specimen (Source) Anatomical Collection Method Collection Time Re ceived Time Location / / Volume Laterality Blood 09/20/2015 9:10 AM SENIOR ADVISORY Abelardo Renteria APRN.N.P., M.S.N. LAB BLOOD ADD-ON Performing Organization Address City/State/ZIP Code Phon e Number POWERCHART (ABNORMAL) Hemoglobin A1c (09/20/2015 9:10 AM SENIOR ADVISORY) P athologist Signature Hemoglobin A1c, 6.1 (H) <=5.6 A1C POWERCHART B Specimen (Source) Anatomical Collection Method Collection Time Re ceived Time Location / / Volume Laterality Blood 09/20/2015 9:10 AM SENIOR ADVISORY Aneta Whitaker APRN, C.N.P., M.S.N. LAB BLOOD ADD-ON Performing Organization Address City/State/ZIP Code Phon e Number POWERCHART (ABNORMAL) CMP (Comprehensive Metabolic Panel) (09/20/2015 9:10 AM SENIOR ADVISORY) [facility] gist Method Time Signature Anion Gap 9 7 - 15 POWERCHART MMOLL Alkaline 93 55 - 142 POWERCHART Phosphatase, S UNITL Alanine 20 7 - 45 POWERCHART Amniotransferase, LD UNITL Aspartate 19 8 - 43 POWERCHART Aminotransferase UNITL (AST), S Bilirubin, Total, S 0.4 0.1 - 1.0 POWERCHART MGDL BUN (Blood Urea 19 6 - 21 POWERCHART Nitrogen), S MGDL Chloride, S 102 98 - 107 POWERCHART MMOLL CO2 Total 30 (H) 22 - 29 POWERCHART MMOLL Creatinine 0.8 0.6 - 1.1 POWERCHART MGDL Glucose, Fasting, S 109 (H) 70 - 99 POWERCHART MGDL Total Protein, S 7.3 6.3 - 7.9 POWERCHART GDL Calcium, Total, S 10.2 8.8 - POWERCHART 10.3 MGDL Sodium, S 140 135 - 145 POWERCHART MMOLL Potassium, S 4.4 3.6 - 5.2 POWERCHART MMOLL Albumin, S 4.4 3.2 - 5.2 POWERCHART GDL HXeGFR (MDRD) >60 >=60 POWERCHART [id number] 2 eGFR Black/ >60 >=60 POWERCHART Filipino [id number] Specimen (Source) Anatomical Collection Method Collection Time Re ceived Time Location / / Volume Laterality Blood 09/20/2015 9:10 AM SENIOR ADVISORY Aneta Whitaker APRN, C.N.P., M.S.N. LAB BLOOD ADD-ON Performing Organization Address City/State/ZIP Code Phon e Number POWERCHART documented in this encounter Visit Diagnoses Not on filedocumented in this encounter Additional Health Concerns Assessment Noted Time PHQ-9 Depression Total Score: 1 09/20/2015 8:43 AM SENIOR ADVISORY documented as of this encounter
--- OUTSIDE RECORDS SUMMARY | 2022-07-10 08:22 | XMS_ITS | Encounter Summary ---
:1940 Author Organization [facility] Address [address] [place] [address] Care Team Providers Name Role Phone Unavailable Primary Care Provider Unavailable Encounter Details Date Type Department Care Team Description 11/26/2014 Hospital Encounter [facility]X [facility] Jack Apodaca i, M.D. [address] [place] [address] (Wo rk) Social History Tobacco Use Types [...] or relatives? How often do you attend orthodoxy or More than 4 times per year 03/16/2022 mormon services? Do you belong to any clubs or Yes 03/16/2022 organizations such as orthodoxy groups, unions, fraternal or athletic groups, or [...] Sign Reading Time Taken Comments Blood Pressure 134/80 11/26/2014 11:47 AM AGRICULTURE DEPARTMENT CHAIR Pulse 84 11/26/2014 11:47 AM AGRICULTURE DEPARTMENT CHAIR Temperature - - Respiratory Rate 16 11/26/2014 11:47 AM AGRICULTURE DEPARTMENT CHAIR Oxygen Saturation - - Inhaled Oxygen Concentration - - Weight 93 kg (205 lb 0.4 oz) 11/26/2014 11:47 AM AGRICULTURE DEPARTMENT CHAIR Height - - Body Mass Index 35.88 10/15/2014 11:45 AM AGRICULTURE DEPARTMENT CHAIR documented in this encounter Medications at Time [...] as needed. documented as of this encounter Progress Notes Jack Lopez M.D. - 11/26/2014 11:02 AM CST [id number] CHIEF COMPLAINT/ REASON FOR VISIT Followup knee arthroplasty HISTORY OF PRESENT ILLNESS Ainsley is a 74-year -old female who presents to the clinic today for followup knee arthroplasty. She was seen on 11/18 with a followup for a recent left knee arthroplasty where her prescription for Paterson was renewed. She notices that her knee is very tender and will be tender even with light brushing from clothing. She has questions regarding her medications for pain management. She is currently taking one Paterson twice daily with Tylenol at other times. She would like to taper to off if possible. She was also seen on 11/18 with dysuria. Her urinalysis was remarkable but culture appeared to be contaminant. She continues to have some mild cloudiness to her urine and wonders if the infection is cleared up. I explained to her that this did not appear to be an infection. She is not having abdominal pain or fevers. The patient denies any additional questions or concerns at this time. MEDICATIONS Post-visit Medication Reconciliation Reviewed and are as outlined in the EMR including 1. Paterson 0.5 tablet twice daily ALLERGIES Cats-unknown Prochlorperazine-unknown Codeine Dust mite SYSTEMS REVIEW See HPI. PAST MEDICAL/SURGICAL HISTORY 1. Candidal intertrigo. 2. Malignant neoplasm of skin of cheek, external. 3. Hypothyroidism NOS. 4. Hyperlipidemia NOS. 5. Hypertension essential, benign. 6. Rhinitis, allergic. 7. Asthma intrinsic NOS. 8. Asthma acute exacerbation. 9. Fibrocystic breast NOS. 10. Pain knee NOS. 11. Pain ankle NOS. 12. Right lateral epicondylectomy in 1985. 13. Neuroma removal from foot. 14. Vaginal hysterectomy with ovaries intact . 15. hemorrhage. 16. Left total knee arthroplasty 10/2014. 17. Constipation PREVENTIVE SERVICES Tobacco use: None VITAL SIGNS WEIGHT: 93 kg. TEMP: 37.0 Deg C. PULSE: 84 /min. RESP: 16 /min. SYSTOLIC: 134 mmHg. DIASTOLIC: 80 mmHg. PHYSICAL EXAMINATION GENERAL: Patient is alert and oriented times three, in no acute distress, good hygiene and is dressed appropriately. EXTREMITIES: Surgical scar over the left knee is healing well. There is mild erythema and indurationas expected. IMPRESSION/REPORT/PLAN 1. Followup of recent knee arthroplasty. Paterson medication was decreased as above. She may continue to taper from this dose. 2. Continued urinary cloudiness. Will culture urine and treat if positive. 3. Follow up: The patient will contact the clinic with any new or worsening symptoms. This document serves as a record of services personally performed by Jack Dorman MD. It was created on their behalf by Selin Holloway, a trained medical coding auditor. The creation of this record is based on the scribe's personal observations and the provider's statements to them. This document has been denise cked and approved by the attending provider. Jack Martin M.D./denis Electronically Signed By: JACK LOPEZ MD On: 12/10/2014 08:41 AM Source: [facility] MHSDOLBEYNONRADSYS Document Id: [id number] CULTURE DEPARTMENT CHAIR documented in this encounter Miscellaneous Notes Telephone Encounter - Conversion, Historical Provider Ser - 12/20/2014 3:18 PM CDT *Phone Message Document Contains Addenda Addendum by STEPHEN RUBIN LPN on 21 December 2014 16:05:33 CDT Spoke to radiology this afternoon, they took down the needed information and stated that they will now call the patient to set up appointment. Addendum by STEPHEN RUBIN LPN on 21 December 2014 11:23:20 CDT They will contact patient to set this up. Spoke to patient and she states she did get some automated phone call, but was told to push this button and that button and she did not get an outcome as to what the call was about as she had been on the phone for quite sometime. Will call Radiology and checkon appiontment status. From: JEREMIAH ELLSWORTH ([facility] [employer]) To: [facility] Family Medicine Nurse; Sent: 12/20/2014 15:18:15 CDT Subject: *Phone Message Caller is: (x ) Patient ( ) Mother ( ) Father ( ) Spouse ( ) Daughter ( ) Son ( ) Pharmacy ( ) Other: Physician: Patient MRN #: Reason for Call: Patient is wondering if her Mammogram in [place] was scheduled? What day and time? [phone] Message: Advice/Action: Source used: ( ) Verbalizes [...] back cell phone number ( ) Source: [facility] POWERCHART Document Id: [id number] Miscellaneous - Jack Lopez M.D. - 11/27/2014 12:07 AM AGRICULTURE DEPARTMENT CHAIR Ambulatory Patient Summary [address] [id number] Visit Information Name: AINSLEY AGUAYO [facility] Number: [id number] Current Date: 11/27/2014 00:07:18 Physicians Attending Provider: JACK LOPEZ MD Primary Care Provider: JACK LOPEZ MD AINSLEY AGUAYO has been given the following list of follow-up instructions, medication list, and patient education materials: Follow-up Instructions Your Medications Here is a list of your medications. It is important to take your medications as directed. Use a pillbox or chart to help remind you to take your medications. Please let your doctor or nurse know if you have problems taking your medications. Medication/Strength How to Take Indications/Special Instructions/Comments/Notes for Patient Medication Changes/Routing albuterol (albuterol CFC free 90 mcg/inh inhalation aerosol with adapter) 2 puff(s), Inhalation, every 4 hours as needed for Shortness of breath / Wheezing calcium-vitamin D (Calcium 600+D) 1 Tablet(s), Oral, three times a day celecoxib (celecoxib 200 mg oral capsule) 1 cap, Oral, once a day fluticasone nasal (Flonase 0.05 mg/inh nasal spray) 1 Arcadia(s), Nostrils(Both), once a day hydrochlorothiazide (hydrochlorothiazide 25 mg oral tablet) 1 Tablet(s), Oral, once a day HYDROcodone-acetaminophen (Paterson 5 mg-325 mg oral tablet) 1 Tablet(s), Oral, every 6 hours levothyroxine (Synthroid 75 mcg (0.075 mg) oral tablet) 1 Tablet(s), Oral, once a day lisinopril (lisinopril 30 mg oral tablet) 1 Tablet(s), Oral, once a day loratadine (Claritin 10 mg oral tablet) 1 Tablet(s), Oral, once a day as needed for Allergy symptoms montelukast (Singulair 10 mg oral tablet) 1 Tablet(s), Oral, every evening omega-3 polyunsaturated fatty acids (Fish Oil oral capsule) three times a day pravastatin (pravastatin 40 mg oral tablet) 1.5 Tablet(s), Oral, once a day (at bedtime) New Dose predniSONE (predniSONE 10 mg oral tablet) See Instructions 1 tab(s) PO Daily starting two days priorto trip continue through trip then upon return decresae to 5mg daily for 4 days then stop rivaroxaban (Xarelto) Oral, every evening triamcinolone topical (triamcinolone 0.1% topical cream) See Instructions 1 keiry Topical prn Stop Taking the Following Medications: Medication list as of 11-27-14 00:07 Attention: If you have any medications at home that are not on this list, DO NOT take them until youcontact your provider for clarification. Give a copy of your medication list to your primary care provider. Update your medication list any time medications or doses are changed and carry your medication list at all times in case of emergency. Electronically Signed By: JACK LOPEZ MD Signed On:27-NOV-2014 00:07:04 Your Allergies & Intolerances Substance Reaction Symptoms Category Comments codeine Drug prochlorperazine unknown Drug Dust Mite Drug Cats unknown Other Your Problem List Problem Status Onset Comments Hypertension Essential, Benign Active Hypothyroidism (acquired) Active Fibrocystic breast changes Active Asthma, Instrinsic, unspecified Active Malignant neoplasm of skin of cheek, external Active Hyperlipidemia Active Asthma with acute exacerbation Active Pain, Knee Active Pain, Ankle/foot Active Rhinitis, allergic* Active Candidal intertrigo Active Your Upcoming Appointments Date Time Location Provider No Appointments found Attention: Contact your local Clinic if further appointment detail needed. Your Goals/Additional instructions: Source: [facility] POWERCHART Document Id: [id number] CULTURE DEPARTMENT CHAIR Miscellaneous - Jack Lopez M.D. - 11/27/2014 12:07 AM AGRICULTURE DEPARTMENT CHAIR Ambulatory Discharge Medication List [address] [id number] Visit Information Name: AINSLEY AGUAYO [facility] Number: [id number] Visit Date: 11/27/2014 00:07:17 Attending Provider: JACK LOPEZ MD Primary Care Provider: JACK LOPEZ MD ARNOLBobbiGARCIA AINSLEY GAVIRIA has been given the following list of medications: Your Medications It is important to take your medications as directed. Use a pill box or chart to help remind you to take your medications. Please let your doctor or nurse know if you have problems taking your medications. Medication/Strength How to Take Indications/Special Instructions/Comments/Notes for Patient Medication Changes/Routing albuterol (albuterol CFC free 90 mcg/inh inhalation aerosol with adapter) 2 puff(s), Inhalation, every 4 hours as needed for Shortness of breath / Wheezing calcium-vitamin D (Calcium 600+D) 1 Tablet(s), Oral, three times a day celecoxib (celecoxib 200 mg oral capsule) 1 cap, Oral, once a day fluticasone nasal (Flonase 0.05 mg/inh nasal spray) 1 Arcadia(s), Nostrils(Both), once a day hydrochlorothiazide (hydrochlorothiazide 25 mg oral tablet) 1 Tablet(s), Oral, once a day HYDROcodone-acetaminophen (Paterson 5 mg-325 mg oral tablet) 1 Tablet(s), Oral, every 6 hours levothyroxine (Synthroid 75 mcg (0.075 mg) oral tablet) 1 Tablet(s), Oral, once a day lisinopril (lisinopril 30 mg oral tablet) 1 Tablet(s), Oral, once a day loratadine (Claritin 10 mg oral tablet) 1 Tablet(s), Oral, once a day as needed for Allergy symptoms montelukast (Singulair 10 mg oral tablet) 1 Tablet(s), Oral, every evening omega-3 polyunsaturated fatty acids (Fish Oil oral capsule) three times a day pravastatin (pravastatin 40 mg oral tablet) 1.5 Tablet(s), Oral, once a day (at bedtime) New Dose predniSONE (predniSONE 10 mg oral tablet) See Instructions 1 tab(s) PO Daily starting two days priorto trip continue through trip then upon return decresae to 5mg daily for 4 days then stop rivaroxaban (Xarelto) Oral, every evening triamcinolone topical (triamcinolone 0.1% topical cream) See Instructions 1 keiry Topical prn Stop Taking the Following Medications: Medication list as of 11-27-14 00:07 Attention: If you have any medications at home that are not on this list, DO NOT take them until youcontact your provider for clarification. Give a copy of your medication list to your primary care provider. Update your medication list any time medications or doses are changed and carry your medication list at all times in case of emergency. Electronically Signed By: JACK LOPEZ MD Signed On:27-NOV-2014 00:07:04 Additional Information: Source: [facility] POWERCHART Document Id: [id number] CULTURE DEPARTMENT CHAIR Miscellaneous - Conversion, Historical Provider Ser - 11/26/2014 11:47 AM AGRICULTURE DEPARTMENT CHAIR Adult Hi Teacher Intake/History Adult Hi Teacher Intake/History Entered On: 11/26/2014 11:48 AGRICULTURE DEPARTMENT CHAIR Performed On: 11/26/2014 11:47 AGRICULTURE DEPARTMENT CHAIR by JOE RAZA LPN Intake Chief Complaint : recheck after left knee surgery Temperature Core : 37.0 DegC(Converted to: 98.6 DegF) Peripheral Pulse Rate : 84 /min Respiratory Rate : 16 /min Systolic Blood Pressure : 134 mmHg Diastolic Blood Pressure : 80 mmHg NIBP Mean : 98 mmHg BP Location : Right upper extremity Blood Pressure Cuff Size : Regular Actual Weight : 93 kg(Converted to: 205 lb 0 oz) Dosing Weight Clinic : 93 kg JOE RAZA LPN 11/26/2014 11:47 AGRICULTURE DEPARTMENT CHAIR General Info Information Given By : Patient Languages : Guyanese Is Patient Female and 13-50 no hysterectomy : No JOE RAZA [facility] 11/26/2014 11:47 AGRICULTURE DEPARTMENT CHAIR Subjective Pain Symptoms : Yes JOE RAZA [facility] 11/26/2014 11:47 AGRICULTURE DEPARTMENT CHAIR Pain Scale Pain Scale Verbal 0-10 : Open JOE RAZA [facility] 11/26/2014 11:47 AGRICULTURE DEPARTMENT CHAIR Pain Pain Assessment Grid Pain 1 Location : Knee Laterality : Left JOE RAZA [facility] 11/26/2014 11:47 AGRICULTURE DEPARTMENT CHAIR Dependent Habits Tobacco Use/Currently Using : No Exposure to Tobacco Smoke : Other: Never Smoked Smoking Status : Never smoker JOE RAZA [facility] 11/26/2014 11:47 AGRICULTURE DEPARTMENT CHAIR Caffeine Use Grid Caffeine Use : Current Type : Soft drinks Frequency : Daily Amount : 1 can diet soda Last Use : 09/15/14 JOE RAZA [facility] 11/26/2014 11:47 AGRICULTURE DEPARTMENT CHAIR Recreational Drug Use Grid Drug Use : None JOE RAZA [facility] 11/26/2014 11:47 AGRICULTURE DEPARTMENT CHAIR ID Screen Drug Resistant Organism : No Travel Within Last 21 Days : No JOE RAZA [facility] 11/26/2014 11:47 AGRICULTURE DEPARTMENT CHAIR Source: [facility] [place] LS15CHART Document Id: [id number] AGRICULTURE DEPARTMENT CHAIR!43 documented in this encounter Plan of Treatment Not on filedocumented as of this encounter Procedures Procedure Name Priority Date/Time Associated Diagnosis Comme nts BACTERIAL CULTURE, Routine 11/26/2014 12:30 PM Re sults for this AEROBIC, URINE AGRICULTURE DEPARTMENT CHAIR procedure are in the results section. documented in this encounter Results Bacterial Culture, Aerobic, Urine (11/26/2014 12:30 PM AGRICULTURE DEPARTMENT CHAIR) [facility] gist Method Time Signature Bacterial POWERCHART Culture, Aerobic, Urine HXFinal Mixed eros. No POWERCHART further studies unless notified. [facility] [place] [facility] Microbiology laboratory [phone]. Specimen (Source) Anatomical Collection Method Collection Time Re ceived Time Location / / Volume Laterality Urine, First 11/26/2014 12:30 Voided PM AGRICULTURE DEPARTMENT CHAIR Jack Root M.D. LAB MICROBIOLOGY - GEN ERAL ORDERABLES Performing Organization Address City/State/ZIP Code Phon e Number POWERCHART documented in this encounter Visit Diagnoses Not on filedocumented in this encounter Additional Health Concerns Assessment Noted Time PHQ-9 Depression Total Score: 1 09/16/2014 9:15 AM AGRICULTURE DEPARTMENT CHAIR documented as of this encounter
--- OUTSIDE RECORDS SUMMARY | 2022-07-10 08:22 | XMS_ITS | Encounter Summary ---
:1940 Author Organization [facility] Address [address] [place] [address] Care Team Providers Name Role Phone Unavailable Primary Care Provider Unavailable Encounter Details Date Type Department Care Team Description 02/05/2017 Hospital Encounter HX [facility] FAMILY[facility] Delbert Whitaker APRN C.N.P., M.S.N. [address] [place] [address] (Wo rk) Social History Tobacco Use Types [...] or relatives? How often do you attend methodist or More than 4 times per year 03/16/2022 islam services? Do you belong to any clubs or Yes 03/16/2022 organizations such as methodist groups, unions, fraternal or athletic groups, or [...] Reading Time Taken Comments Blood Pressure 138/72 02/05/2017 10:05 AM CDT Pulse 68 02/05/2017 10:05 AM CDT Temperature - - Respiratory Rate 16 02/05/2017 10:05 AM CDT Oxygen Saturation - - Inhaled Oxygen Concentration - - Weight 96.9 kg (213 lb 10 oz) 02/05/2017 10:05 AM CDT Height - - Body Mass Index 37.52 09/21/2016 10:28 AM CURATOR documented in this encounter Medications at Time [...] Refill(s) documented as of this encounter Progress Delbert Weiss, MISA, TOOL PROFILING MACHINE SET UP OPERATOR - 02/05/2017 9:57 AM CDT [id number] CHIEF COMPLAINT/REASON FOR VISIT Bilateral ingrown toenails. HISTORY OF PRESENT ILLNESS A very pleasant 76-year-old female presents with bilateral ingrown toenails. States it has been ongoing for a few months but she went have a pedicure a couple months ago and they were actually able to pull part of the ingrown nail out and she has been fine ever since but now, over the last couple weeks, it is creeping up again. She is having some mild to moderate pain on her left great toe. She does have a blood blister from stubbing her toe but she does not feel like the nail is as bad as her rightgreat toe. Patient also concerned about her skin. She is having some brown, rough-textured growths on her right cheek and has an actinic keratoses, she believes, of her left cheek and it is getting paco er. 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 Denies any other complaints. There has been no fevers, chills, headache, neck pain, chest pain, shortness of breath, abdominal pain, nausea, vomiting, or diarrhea. There have been no red streaks up and down her legs, no foot swelling, erythema, edema, open areas or exudate from her nails. MEDICATIONS Reviewed today. See medication list tab [...] PHYSICAL EXAMINATION GENERAL: Well-appearing adult, no distress. LOWER EXTREMITIES: Bilateral great toenails are in-turned, slightly ingrown. Her right is worse thanleft. On the right both edges are starting to turn in. There is no erythema or edema. No exudate from the nail. On the left great toe there is a small blood blister right at the tip. IMPRESSION/REPORT/PLAN 1. Ingrown toenails. PLAN: Strongly encouraged patient to soak both feet in Epsom salts twice a day and to gently pull skin away from the nail, to see a business relationship manager and/or get a pedicure to see if they can help with the nail pulling it further. Try this for 2 weeks. See the only one, either the business relationship manager or the senior front end engineer, and then if that is unsuccessful to come back and see me and I can do a partial toenail removal. She verbalized good understanding and agreed to plan. 2. Basal cell, skin. 3. Squamous cell, history of, right forearm. PLAN: Dermatology referral done for [facility]. This will be ordered today and processed. Did advise patient that [facility] would call her for appointment times but to follow up with me if she had any future healthcare problem or concern. If she did not hear from [facility] to also let me know within the next few days and I would help her with the referral process. Antolin Diaz -C./tello Electronically Signed By: DELBERT WHITAKER CNP On: 02/16/2017 02:39 PM Source: [facility] MHSDOLBEYNONRADSYS Document Id: [id number] documented in this encounter Miscellaneous Notes Miscellaneous - Joshua Rubin, LAntwanPAntwanN. - 02/05/2017 10:07 AM CDT PHQ-9 PHQ-9 Entered On: 02/05/2017 10:08 CDT Performed On: 02/05/2017 10:07 CDT by JOSHUA RUBIN LPN PHQ-9 Little interest or pleasure in doing things : Not at all Feeling down, depressed, or hopeless : Not at all Trouble falling or staying asleep, or sleeping too much : Not at all Feeling tired or having little energy : Not at all Poor appetite or overeating : Not at all Feeling bad about yourself or that you are a failure : Not at all Trouble concentrating on things : Not at all Moving or speaking slowly; restless or fidgety : Not at all Thoughts that you would be better off /hurting self : Not at all PHQ-9 Calculated Score : 0 Problems make work, home, or dealing with others : Not difficult at all JOSHUA RUBIN LPN - 02/05/2017 10:07 CDT Source: [facility] POWERCHART Document Id: [id number] CDT!13 Miscellaneous - Joshua Rubin L.PAntwanNAntwan - 02/05/2017 10:05 AM CDT Adult Direct Sales Consultant Intake/History Adult Direct Sales Consultant Intake/History Entered On: 02/05/2017 10:07 CDT Performed On: 02/05/2017 10:05 CDT by JOSHUA RUBIN LPN Intake Chief Complaint : bilateral ingrown toenails great toe. Temperature Core : 36.6 DegC(Converted to: 97.9 DegF) Peripheral Pulse Rate : 68 /min Respiratory Rate : 16 /min Systolic Blood Pressure : 138 mmHg Diastolic Blood Pressure : 72 mmHg NIBP Mean : 94 mmHg BP Location : Right upper extremity Blood Pressure Cuff Size : Regular Actual Weight : 96.9 kg(Converted to: 213 lb 10 oz) Weight Source : Standing scale Dosing Weight Clinic : 96.9 kg JOSHUA RUBIN LPN - 02/05/2017 10:05 CDT General Info Information Given By : Patient Preferred Communication Mode : Verbal Languages : Persian Is Patient Female and 13-50 no hysterectomy : No JOSHUA RUBIN LPN - 02/05/2017 10:05 CDT Subjective Pain Symptoms : No (Comment: states only hurts when she hits it. [JOSHUA RUBIN LPN - 02/05/2017 10:05 CDT] ) JOSHUA RUBIN LPN - 02/05/2017 10:05 CDT Dependent Habits Exposure to Tobacco Smoke : Other: Never Smoked Smoking Status : Never smoker Tobacco 2A : No Tobacco Use/Currently Using : No Tobacco Use/Last 30 Days : No Tobacco Use/Last 12 months : No Alcohol Use : No JOSHUA RUBIN LPN - 02/05/2017 10:05 CDT Caffeine Use Grid Caffeine Use : Current Type : Soft drinks Frequency : Daily Amount : 1 can diet soda Last Use : 02/05/2017 JOSHUA RUBIN LPN - 02/05/2017 10:05 CDT Recreational Drug Use Grid Drug Use : None JOSHUA RUBIN LPN - 02/05/2017 10:05 CDT Source: [facility] [employer] Document Id: [id number] CDT!39 documented in this encounter Plan of Treatment Not on filedocumented as of this encounter Visit Diagnoses Not on filedocumented in this encounter
--- OUTSIDE RECORDS SUMMARY | 2022-07-10 08:22 | XMS_ITS | Encounter Summary ---
:1940 Author Organization [facility] Address [address] [place] [address] Care Team Providers Name Role Phone Unavailable Primary Care Provider Unavailable Encounter Details Date Type Department Care Team Description 10/24/2015 Hospital Encounter HX [facility] Luca Orona APRN, C.N.P., M. S.N. [address] [place], [place] [phone] (Wo rk) Social History [...] many times do you More than three ibsi es a week 03/16/2022 talk on the phone with family, friends, or neighbors? How often do you get together with friends Once a week 03/16/2022 or relatives? How often do you attend restorationism or More than 4 times per year 03/16/2022 worship services? Do you belong to any clubs or Yes 03/16/2022 organizations such as restorationism groups, unions, fraternal or athletic groups, or [...] or slept in a longterm (including now)? Sex Assigned at Date Recorded [...] as needed. documented as of this encounter Plan of Treatment Not on filedocumented as of this encounter Procedures Procedure Name Priority Date/Time Associated Diagnosis Comme nts DX CHEST AP OR PA Routine 10/24/2015 9:54 AM Resu lts for this AND LATERAL 2 VIEWS MANUFACTURING PRODUCTION TECHNICIAN procedur e are in the results section. documented in this encounter Results DX Chest Anterior Posterior or Posterior Anterior and Lateral 2 Views (10/24/2015 9:54 AM MANUFACTURING PRODUCTION TECHNICIAN) Anatomical Region Laterality Modality Chest N/A Radiographic Imaging Specimen (Source) Anatomical Collection Method Collection Time Re ceived Time Location / / Volume Laterality 10/24/2015 9:54 AM MANUFACTURING PRODUCTION TECHNICIAN Addenda Addendum by Provider, Cristiana Marino o duran 10/24/2015 9:54 AM MANUFACTURING PRODUCTION TECHNICIAN RAD^^^OW XR Chest 2 Views 10/24/2015 09:54:36 Impressions 10/24/2015 10:32 AM MANUFACTURING PRODUCTION TECHNICIAN No change. No focal consolidation or pleural effusion. Cardiac silhouette and pulmonary vascula rity are within the limits of normal. Narrative 10/24/2015 10:32 AM MANUFACTURING PRODUCTION TECHNICIAN EXAM: XR Chest 2 Views INDICATION: Hx lung Ca COMPARISON: 10/15/2014 Procedure Note Bernardino Lay M.D. / Zaire Rai M.D. - 02/08/2017 EXAM: XR Chest 2 Views INDICATION: Hx lung Ca COMPARISON: 10/15/2014 IMPRESSION: No change. No focal consolid ation or pleural effusion. Cardiac silhouette and pulmonary vascula rity are within the limits of normal. Chery Farmer(R), RSilver(R)(M) IMG DIAGNOSTIC IMAG ING PROCEDURES documented in this encounter Visit Diagnoses Not on filedocumented in this encounter Additional Health Concerns Assessment Noted Time PHQ-9 Depression Total Score: 1 09/20/2015 8:43 AM MANUFACTURING PRODUCTION TECHNICIAN documented as of this encounter
--- OUTSIDE RECORDS SUMMARY | 2022-07-10 08:22 | XMS_ITS | Encounter Summary ---
:1940 Author Organization [facility] Address [address] [place] [address] Care Team Providers Name Role Phone Unavailable Primary Care Provider Unavailable Encounter Details Date Type Department Care Team Description 07/01/2015 Hospital Encounter HX [facility] Delbert Whitaker APRN C.N.P., M.S.N. [address] [place] [address] (Wo rk) Social History Tobacco Use Types [...] Sign Reading Time Taken Comments Blood Pressure 132/76 07/01/2015 7:59 AM CDT Pulse 76 07/01/2015 7:59 AM CDT Temperature - - Respiratory Rate 16 07/01/2015 7:59 AM CDT Oxygen Saturation - - Inhaled Oxygen Concentration - - Weight 95.7 kg (210 lb 15.7 oz) 07/01/2015 7:59 AM CDT Height - - Body Mass Index 36.92 06/30/2015 9:07 AM CDT documented in this encounter Medications at Time [...] documented as of this encounter Progress Notes Delbert Whitaker APRN, FLIGHT AGENT - 07/01/2015 7:50 AM CDT [id number] CHIEF COMPLAINT/REASON FOR VISIT I think I have a UTI. HISTORY OF PRESENT ILLNESS A very pleasant, 74-year-old female presents with intermittent moderate dysuria over the last 2 days. Patient states she has had a UTI in the past, feels like she has another one. Last UTI was in 2013.Sulfa has worked well for her in the past and states that if she has a UTI that she would like that medication. She is going under a lot of stress right now trying to sell her home and she states that she feels that she is probably not paying close enough attention to herself, not drinking enough water, etc. She denies any fevers, flank pain, hematuria, pelvic pain, abdominal pain, nausea, vomiting or diarrhea, chest pain or shortness of breath. MEDICATIONS Reviewed. SYSTEMS REVIEW Negative except for HPI. ALLERGIES Reviewed. PAST MEDICAL/SURGICAL HISTORY See EMR. SOCIAL HISTORY No changes. See EMR. FAMILY HISTORY Noncontributory. VITAL SIGNS Refer to EMR. PHYSICAL EXAMINATION GENERAL: Well-appearing adult, no distress. ABDOMEN: Mild tenderness over mid pelvic region. No CVA tenderness. No other tenderness throughout abdomen, rebound or guarding. Normoactive bowel sounds. IMPRESSION/REPORT/PLAN 1. Dysuria. Urine collected for analysis. Positive for nitrites and leukocytes and blood and protein. Positive for urinary tract infection. 2. Urinary tract infection. Bactrim DS 2 times a day x7 days prescribed. Did educate patient that she could stop the medication on day 4 if symptoms improved. She may return to clinic for repeat urinalysis. An order was put in today for that. Education regarding urinary tract infections in women discussed and handouts provided for home care. Strongly encouraged fluids, always wipe front to back afterusing the restroom. Education regarding medications, side effects provided to patient. Strongly encouraged patient to follow up with primary care provider if symptoms persist after treatment. If symptoms worsen over the next 2 to 3 days such as high fever, chills, abdominal pain, nausea, vomiting, diarrhea, flank pain, hematuria, go to emergency room. The patient verbalized good understanding of these instructions. Antolin Diaz -C./tello Electronically Signed By: DELBERT WHITAKER CNP On: 07/10/2015 10:54 AM Source: [facility] MHSDOLBEYNONRADSYS Document Id: [id number] documented in this encounter Procedure Notes Joshua Rubin, L.P.N. - 07/01/2015 8:09 AM CDT Urine Dipstick Urine Dipstick Entered On: 07/01/2015 8:10 CDT Performed On: 07/01/2015 8:09 CDT by JOSHUA RUBIN LPN Urine Dipstick UA Color POC : Pale Yellow UA Appear POC : Cloudy UA Leuk POC : Negative UA Nitrite POC : Positive UA Urobilinogen POC : 0.2 mg/dl UA Protein POC : Negative UA pH POC : 7.0 UA Blood POC : 2+ MODERATE UA Spec Grav POC : 1.020 UA Ketones POC : Negative UA Bili POC : Negative UA Glucose POC : Negative Test Strip Lot # : [id number] Test Strip Expiration Date : 03/2018 JOSHUA RUBIN LPN - 07/01/2015 8:09 CDT Source: [facility] Document Id: [id number] CDT!16 documented in this encounter Miscellaneous Notes Miscellaneous - Joshua Rubin L.P.N. - 07/01/2015 8:48 AM CDT PHQ-9 PHQ-9 Entered On: 07/01/2015 8:49 CDT Performed On: 07/01/2015 8:48 CDT by JOSHUA RUBIN LPN PHQ-9 Little interest or pleasure in doing things : Several days Feeling down, depressed, or hopeless : Not at all Trouble falling or staying asleep, or sleeping too much : Not at all Feeling tired or having little energy : More than half the days Poor appetite or overeating : More than half the days Feeling bad about yourself or that you are a failure : Not at all Trouble concentrating on things : Not at all Moving or speaking slowly; restless or fidgety : Not at all Thoughts that you would be better off /hurting self : Not at all PHQ-9 Calculated Score : 5 Problems make work, home, or dealing with others : Somewhat difficult JOSHUA RUBIN LPN - 07/01/2015 8:48 CDT Source: [facility] Document Id: [id number] CDT!13 Miscellaneous - Joshua Rubin L.PAntwanNAntwan - 07/01/2015 7:59 AM CDT Adult Visual Basic Developer Intake/History Adult Visual Basic Developer Intake/History Entered On: 07/01/2015 8:00 CDT Performed On: 07/01/2015 7:59 CDT by JOSHUA RUBIN LPN Intake Chief Complaint : thinks UTI, denies pain, states urine cloudy and discomfort Onset of Symptoms : 06/29/15 Temperature Core : 36.8 DegC(Converted to: 98.2 DegF) Peripheral Pulse Rate : 76 /min Respiratory Rate : 16 /min Systolic Blood Pressure : 132 mmHg Diastolic Blood Pressure : 76 mmHg NIBP Mean : 95 mmHg BP Location : Right upper extremity Blood Pressure Cuff Size : Large Actual Weight : 95.7 kg(Converted to: 211 lb 0 oz) Weight Source : Standing scale Dosing Weight Clinic : 95.7 kg JOSHUA RUBIN LPN - 07/01/2015 7:59 CDT General Info Information Given By : Patient Preferred Communication Mode : Verbal Languages : Barbadian Is Patient Female and 13-50 no hysterectomy : No JOSHUA RUBIN LPN - 07/01/2015 7:59 CDT Subjective Pain Symptoms : No JOSHUA RUBIN LPN - 07/01/2015 7:59 CDT Dependent Habits Tobacco Use/Currently Using : No Tobacco Use/Last 12 months : No Tobacco Use/Advised to Quit : No Exposure to Tobacco Smoke : Other: Never Smoked Smoking Status : Never smoker Alcohol Use : No JOSHUA RUBIN LPN - 07/01/2015 7:59 CDT Caffeine Use Grid Caffeine Use : Current Type : Soft drinks Frequency : Daily Amount : 1 can diet soda Last Use : 06/30/15 JOSHUA RUBIN LPN - 07/01/2015 7:59 CDT Recreational Drug Use Grid Drug Use : None JOSHUA RUBIN LPN - 07/01/2015 7:59 CDT Source: [facility] POWERCHART Document Id: [id number] CDT!39 documented in this encounter Plan of Treatment Not on filedocumented as of this encounter Procedures Procedure Name Priority Date/Time Associated Diagnosis Comme nts BACTERIAL CULTURE, Routine 07/01/2015 9:41 AM Res ults for this AEROBIC, URINE CDT procedure are in the results section. POCT KETONE, URINE Routine 07/01/2015 8:09 AM Res ults for this CDT procedure are i n the results section. documented in this encounter Results (ABNORMAL) Bacterial Culture, Aerobic, Urine (07/01/2015 9:41 AM CDT) Analysis Performed At Patho logist Time Signature Bacterial EC >=32 POWERCHART Culture, (POSITIVE) Aerobic, Urine HXPre GNR POWERCHART Comment: >100,000 cfu/mL Gram Negative R ods HXFinal EC POWERCHART Comment: >100,000 cfu/mL Escherichia col i Specimen (Source) Anatomical Collection Method Collection Time Re ceived Time Location / / Volume Laterality Urine, First 07/01/2015 9:41 AM Voided CDT Organism Antibiotic Method Susceptibility Escherichia coli Ampicillin SUSCEPTIBILITY, ALEJANDRA >=32: Resis tant (MCG/ML) Escherichia coli Ampicillin + Sulbactam SUSCEPTIBILITY, ALEJANDRA 16: Intermediate (MCG/ML) Escherichia coli Aztreonam SUSCEPTIBILITY, ALEJANDRA <=1: Suscep tible (MCG/ML) Escherichia coli Cefazolin SUSCEPTIBILITY, ALEJANDRA <=4: Suscep tible (MCG/ML) Escherichia coli Cefepime SUSCEPTIBILITY, ALEJANDRA <=1: Suscep tible (MCG/ML) Escherichia coli Ceftazidime SUSCEPTIBILITY, ALEJANDRA <=1: Suscep tible (MCG/ML) Escherichia coli Ceftriaxone SUSCEPTIBILITY, ALEJANDRA <=1: Suscep tible (MCG/ML) Escherichia coli ESBL Confirmation Test SUSCEPTIBILITY, ALEJANDRA Neg: Negative (MCG/ML) Escherichia coli Ertapenem SUSCEPTIBILITY, ALEJANDRA <=0.5: Susc eptible (MCG/ML) Escherichia coli Gentamicin SUSCEPTIBILITY, ALEJANDRA <=1: Suscep tible (MCG/ML) Escherichia coli Levofloxacin SUSCEPTIBILITY, ALEJANDRA <=0.12: Barbara ceptible (MCG/ML) Escherichia coli Meropenem SUSCEPTIBILITY, ALEJANDRA <=0.25: Barbara ceptible (MCG/ML) Escherichia coli Nitrofurantoin SUSCEPTIBILITY, ALEJANDRA <=16: Susce ptible (MCG/ML) Escherichia coli Piperacillin + Tazobactam SUSCEPTIBILITY, ALEJANDRA < =4: Susceptible (MCG/ML) Escherichia coli Trimethoprim + SUSCEPTIBILITY, ALEJANDRA <=20: Susce ptible Sulfamethoxazole (MCG/ML) Escherichia coli Tobramycin SUSCEPTIBILITY, ALEJANDRA <=1: Suscep tible (MCG/ML) Victor Hugo Renteria APRNNAvtar, M.S.N. LAB MICROB IOLOGY - GENERAL ORDERABLES Performing Organization Address City/State/ZIP Code Phon e Number POWERCHART Ketone, Urine, POCT (07/01/2015 8:09 AM CDT) [facility] gist Method Time Signature Color Pale Yellow POWERCHART Appearance Cloudy POWERCHART Leukocytes, Negative POWERCHART POCT, U Nitrites, Positive POWERCHART POCT, U Urobilinogen, 0.2 mg/dl POWERCHART POCT, Urine Protein, POCT, Negative POWERCHART U pH, POCT, 7.0 5.0 - 9.0 POWERCHART Urine Blood, POCT, U 2+ MODERATE POWERCHART Specific 1.020 1.000 - POWERCHART Morse, POCT, 1.030 U Ketone, POCT, Negative POWERCHART U Bilirubin, Negative POWERCHART POCT, U Glucose, POCT, Negative POWERCHART U Specimen (Source) Anatomical Collection Method Collection Time Re ceived Time Location / / Volume Laterality 07/01/2015 8:09 AM CDT Victor Hugo Renteria APRNN.Lizabeth, M.S.N. LAB POCT O RDERABLES-MANUAL Performing Organization Address City/State/ZIP Code Phon e Number POWERCHART documented in this encounter Visit Diagnoses Not on filedocumented in this encounter Additional Health Concerns Assessment Noted Time PHQ-9 Depression Total Score: 5 07/01/2015 8:48 AM CDT documented as of this encounter
--- OUTSIDE RECORDS SUMMARY | 2022-07-10 08:22 | XMS_ITS | Encounter Summary ---
:1940 Author Organization [facility] Address [address] [place] [address] Care Team Providers Name Role Phone Aneta Whitaker APRN C.N.PAntwan, M.S.N. Primary Care Pr ovider Encounter Details Date Type Department Care Team Description 09/14/2017 Abstract Department of Family Medicine, Provider, Historical [facility], in [place], [place] [address] [place] [address] [facility] [phone] Social History Tobacco Use Types Packs/Day Years [...] or slept in a snf (including now)? Sex Assigned at Date Recorded Female 06/26/2021 8:35 AM CDT documented as of this encounter Plan of Treatment Not on filedocumented as of this encounter Visit Diagnoses Not on filedocumented in this encounter Care Teams Data Entry Relationship Specialty Start Date End Date Aneta Whitaker APRN, C.N.P., PCP - General 06/13/18 M.S.N. [address] [place] [address] documented as of this encounter
--- OUTSIDE RECORDS SUMMARY | 2022-07-10 08:22 | XMS_ITS | Encounter Summary ---
:1940 Author Organization [facility] Address [address] [place] [address] Care Team Providers Name Role Phone Unavailable Primary Care Provider Unavailable Encounter Details Date Type Department Care Team Description 03/13/2016 Hospital Encounter HX [facility] Whitaker, Cecily Rodriguez APRN, C.N.P., M. S.N. [address] [place], [place] [phone] (Wo rk) Social History [...] or relatives? How often do you attend alevism or More than 4 times per year 03/16/2022 jewish services? Do you belong to any clubs or Yes 03/16/2022 organizations such as alevism groups, unions, fraternal or athletic groups, or [...] Encounter - Conversion, Historical Provider Ser - 08/09/2016 1:28 PM CDT *Phone Message Document Contains Addenda Addendum by JEREMIAH ELLSWORTH on August 10, 2016 11:47:45 CDT From: JEREMIAH ELLSWORTH (DAVID Pascual Flight Surgeon) To: DELBERT WHITAKER CNP; Sent: 08/10/2016 11:47:45 CDT Subject: RE: *Phone Message Addendum by JEREMIAH ELLSWORTH on August 10, 2016 11:47:41 CDT Pt notified and will call back to schedule. Addendum by JEREMIAH ELLSWORTH on August 10, 2016 11:46:03 CDT thank you. will notify patient. Addendum by DELBERT WHITAKER CNP on August 10, 2016 07:37:49 CDT From: DELBERT WHITAKER CNP To: DAVID Pascual Flight Surgeon; Sent: 08/10/2016 07:37:49 CDT Subject: RE: *Phone Message Done From: JEREMIAH ELLSWORTH (DAVID Pascual Flight Surgeon) To: DELBERT WHITAKER CNP; Sent: 08/09/2016 13:28:27 CDT Subject: *Phone Message Caller is: ( x) Patient ( ) Mother ( ) Father ( ) Spouse ( ) Daughter ( ) Son ( ) Pharmacy ( ) Other: Physician: Patient MRN #: Reason for Call: Patient is coming in for her annual physical on Saturday. She would like tohave her labs done prior to appt. Please order labs needed. Please let me know when done and I can schedule the patient. Patient can be reached at [phone] Message: Advice/Action: Source used: ( ) Verbalizes [...] back cell phone number ( ) Source: [facility] POWERCHART Document Id: [id number] documented in this encounter Plan of Treatment Not on filedocumented as of this encounter Procedures Procedure Name Priority Date/Time Associated Comments Diagnosis LIPID PANEL, S Routine 03/13/2016 8:39 AM Results for this CDT procedure are i n the results section. 25-HYDROXYVITAMIN D2 Routine 03/13/2016 8:39 AM R esults for this AND D3, S CDT procedure are i n the results section. HEMOGLOBIN A1C, B Routine 03/13/2016 8:39 AM Resu lts for this CDT procedure are i n the results section. documented in this encounter Results (ABNORMAL) Lipid Panel (03/13/2016 8:39 AM CDT) P athologist Signature Calculated LDL 89 <=129 MGDL POWERCHART Comment: 2013 National Lipid [...] for FH and FDB is available maxim [facility]: FH/ADH Genetic Reflex [place] (test ADHP). Acquired (non-genetic) causes of markedly increased LDL cholesterol include cholestatic liver disease due to the presence of LpX. If a genetic form of hypercholesterolemia is suspected, family studies including biochemical testing fo r lipids (total cholesterol,triglycerides, LDL cholesterol and HDL cholesterol) are recommended. ??Please contact the laboratory at or the on-line test catalog at [facility] for information about how to order these ghada ts or to speak with a genetic counselor. Further interpretation would require clinical information. Total Cholesterol/HDL Ratio 3.91 PO WERCHART Cholesterol, Total 168 <=199 MGDL POWERCHART Comment: 2013 National Lipid Association recommen dations for Total Cholesterol in adults ages 18 and up: Desirable <200 mg/dL Borderline high 200-239 mg/dL High 240 mg/dL 2014 National Lipid Association recommen dations for Total Cholesterol in children ages 2 to 17. Acceptable <170 mg/dL Borderline High 170-199 mg/dL High 200 mg/dL HX HDL 43 (L) >=50 MGDL POWERCHART Comment: 2014 National Lipid Association recommen dations for HDL-C in adults ages 18 and up: Low <40 mg/dL (Men) Low <50 mg/dL (Women) 2014 National Lipid Association recommen dations for HDL-C in children ages 2 to 17. Low <40 mg/dL Borderline Low 40-45 mg/dL Acceptable >45 mg/dL Triglycerides 179 (H) <=149 MGDL POWERCHART Comment: 2013 National Lipid [...] Time Location / / Volume Laterality Blood 03/13/2016 8:39 AM CDT Delbert Whitaker APRN C.N.P., M.S.N. LAB BLOOD ADD-ON Performing Organization Address City/State/ZIP Code Phon e Number POWERCHART 25-Hydroxyvitamin D2 and D3 (03/13/2016 8:39 AM CDT) P athologist Signature HX25 HYDROXY D2 <4.0 NGML POWERCHART 25-Hydroxy D3 42 NGML POWERCHART Vitamin D, S 42 NGML POWERCHART Comment: REFERENCE VALUE------ 25-HYDROXY D TOTAL (D2+D3) Optimum level s in the healthy population are 20-50, patients with bone disease may benefit from higher levels within this r anh. Test Performed by: [address] [id number] [place]: Hermes Lees II, M.D., Ph.D. Specimen (Source) Anatomical Collection Method Collection Time Re ceived Time Location / / Volume Laterality Blood 03/13/2016 8:39 AM CDT Delbert Whitkaer APRN C.N.P., M.S.N. LAB BLOOD ADD-ON Performing Organization Address City/State/ZIP Code Phon e Number POWERCHART (ABNORMAL) Hemoglobin A1c (03/13/2016 8:39 AM CDT) P athologist Signature Hemoglobin A1c, 6.2 (H) <=5.6 A1C POWERCHART B Specimen (Source) Anatomical Collection Method Collection Time Re ceived Time Location / / Volume Laterality Blood 03/13/2016 8:39 AM CDT Abelardo Renteria APRN.N.Amanda., M.S.N. LAB BLOOD ADD-ON Performing Organization Address City/State/ZIP Code Phon e Number POWERCHART documented in this encounter Visit Diagnoses Not on filedocumented in this encounter
--- OUTSIDE RECORDS SUMMARY | 2022-07-10 08:22 | XMS_ITS | Encounter Summary ---
:1940 Author Organization [facility] Address [address] [place] [address] Care Team Providers Name Role Phone Unavailable Primary Care Provider Unavailable Encounter Details Date Type Department Care Team Description 06/10/2015 Hospital Encounter HX [facility] PRA eloRio PAntwanA.-Abelardo., P.A. [address] [place], [place] [address] (Wo rk) Social History Tobacco Use Types [...] More than 4 times per year 03/16/2022 [facility]? Do you belong to any clubs [...] Sign Reading Time Taken Comments Blood Pressure 136/72 06/10/2015 10:24 AM CDT Pulse 76 06/10/2015 10:24 AM CDT Temperature - - Respiratory Rate 16 06/10/2015 10:24 AM CDT Oxygen Saturation - - Inhaled Oxygen Concentration - - Weight 95 kg (209 lb 7 oz) 06/10/2015 10:24 AM CDT Height - - Body Mass Index 36.65 10/15/2014 11:45 AM SERVICE DELIVERY CONSULTANT documented in this encounter Medications at Time [...] documented as of this encounter Progress Notes Catia Hay P.A.-C., P.A. - 06/10/2015 10:12 AM CDT [id number] CHIEF COMPLAINT/REASON FOR VISIT Asthma and allergies HISTORY OF PRESENT ILLNESS Patient is a 74-year-old patient of Dr. Jack Dorman'cameron with environmental allergies, allergic rhinitis and asthma. She has been doing very well. However, she moved from her home of 36 years into a new home in early May and since that time, has had increasing tightness, wheezing and allergies/asthma symptoms. Normally she can use her rescue inhaler very infrequently. One canister will last her year. However, she has now been needing it a few times a day. She has had tightness and wheezing. Slight cough which is nonproductive. She has not had any hospitalizations or ER visits. Asthma control test today is 8. She does have an appointment to see her [facility] immigration case manager June 30. She is wondering about a steroid burst. She usually responds very well to a low dose of 10 mg. She has been tried on inhaled steroids in the past and discontinued these due to laryngitis and due to the fact that her asthma and allergies had been well controlled until recently. She denies any fever. She has recently restarted Flonase nasal spray and also does have loratadine; however, she is not taking thisregularly. She does take Singulair daily. She also would like a PCV-13 vaccine today which will be administered. MEDICATIONS Reviewed [facility] EMR dated 06/10/2015 and no changes. ALLERGIES Reviewed [facility] EMR dated 06/10/2015 and no changes. SYSTEMS REVIEW Complete review of systems is performed and is otherwise negative except as noted above. PHYSICAL EXAMINATION VITAL SIGNS: Reviewed [facility] EMR dated 06/10/2015 and no changes. GENERAL: Alert and cooperative in no acute distress. SKIN: Warm and dry without rashes. EYES: Normal conjunctivae and lids. ENT: TMs clear bilaterally. Nares without congestion. Oral mucosa moist. Pharynx without erythema. LYMPH: No cervical adenopathy. THYROID: Smooth without nodules. HEART: Regular rate and rhythm without murmur. LUNGS: Scattered expiratory wheezing throughout the left mid and lower lung boyer. Otherwise good air movement throughout. No rales or rhonchi. O2 sat 97% on room air. EXTREMITIES: No lower extremity edema. MENTAL: Mood and affect appropriate. IMPRESSION Asthma/allergic rhinitis. PLAN: Restart Advair 250/50 at 1 puff 2 times daily. To rinse mouth after use. She has responded well to prednisone low dose and I did renew her prednisone 10 mg tablets. She will take this once daily for 5 to 7 days and then discontinue as able. Continue the use of her rescue inhaler as 2 puffs every4 hours as needed. She will restart her antihistamines Zyrtec, Claritin or Paulette. Continue on her Singulair and her Flonase. She does have appointment to see her immigration case manager later this month. Symptoms to warrant more urgent evaluation were discussed. PCV-13 was administered today. Catia Hay P.A.-C./tello Electronically Signed By: CATIA HAY PA-C On: 06/10/2015 02:23 PM Source: [facility] MHSDOLBEYNONRADSYS Document Id: [id number] documented in this encounter Miscellaneous Notes Telephone Encounter - Conversion, Historical Provider Ser - 06/30/2015 10:24 AM CDT *Phone Message Document Contains Addenda Addendum by STEPHEN RUBIN LPN on 30 June 2015 16:22:14 CDT noted, thank you Hazel. Addendum by HAZEL ELLSWORTH on 30 June 2015 15:31:20 CDT From: HAZEL ELLSWORTH ( [place] Statistical Geneticist) To: [facility] Medicine Nurse; Sent: 06/30/2015 15:31:20 CDT Subject: FW: *Phone Message Addendum by HAZEL ELLSWORTH on 30 June 2015 15:31:09 CDT Patient is scheduled for 7:45 am on 07/01 Addendum by STEPHEN RUBIN LPN on 30 June 2015 13:07:48 CDT From: STEPHEN RUBIN LPN ([facility] Medicine Nurse) To: DAVID Pascual Statistical Geneticist; Sent: 06/30/2015 13:07:48 CDT Subject: FW: *Phone Message left patient a message. Could you please call patient back and schedule and appointment for her 07/01/15 with Aneta, or let her know she can go to express care if interested? Thank you. Addendum by APOLONIA PÉREZ PA-C on 30 June 2015 12:03:32 CDT From: APOLONIA PÉREZ PA-C To: [facility] Nurse; Sent: 06/30/2015 12:03:32 CDT Subject: RE: *Phone Message come in tomorrow am Addendum by STEPHEN RUBIN LPN on 30 June 2015 11:48:51 CDT From: STEPHEN RUBIN LPN ([facility] Nurse) To: APOLONIA PÉREZ PA-C; Sent: 06/30/2015 11:48:51 CDT Subject: FW: *Phone Message From: QUIANA FLORES ([place] [address] Statistical Geneticist) To: [facility] Nurse; Sent: 06/30/2015 10:24:34 CDT Subject: *Phone Message Caller is: ( x ) Patient ( ) Mother ( ) Father ( ) Spouse ( ) Daughter ( ) Son ( ) Pharmacy ( ) Other: Physician: Patient MRN #: Reason for Call: Message: S: Patient called B: She knows she has a UTI wants to know if she can drop off a sample today, or she will come in first thing in the am to see marcelle Cornell want to talk to RN Line. A: please call her back R: [phone] Advice/Action: Source used: ( ) Verbalizes understanding [...] back cell phone number ( ) Source: [facility] [employer] Document Id: [id number] Miscellaneous - Catia Hay P.A.-C., P.A. - 06/10/2015 12:08 PM CDT Ambulatory Patient Summary [address] [id number] Visit Information Name: AINSLEY AGUAYO [facility] Number: [phone] Current Date: 06/10/2015 12:08:29 Physicians Attending Provider: CATIA HAY PA-C Primary Care Provider: JACK LUO MD AINSLEY AGUAYO has been given the [...] nasal (Flonase 0.05 mg/inh nasal spray) 1 Brinson(s), Nostrils(Both), once a day fluticasone-salmeterol (Advair Diskus 250 mcg-50 mcg inhalation powder) 1 puff(s), Inhalation, two times a day New Routed to [address] [id number] hydrochlorothiazide (hydrochlorothiazide 25 mg oral tablet) 1 Tablet(s), Oral, once a day levothyroxine (Synthroid 75 mcg (0.075 mg) oral [...] 5mg daily for 4 days then stop Routed to [address] [id number] triamcinolone topical (triamcinolone 0.1% topical cream) See Instructions 1 keiry Topical prn Stop Taking the Following Medications: Medication list as of 06-10-15 12:08 Attention: If you have any medications at home that are not on this list, DO NOT take them until youcontact your provider for clarification. Give a copy of your medication list to your primary care provider. Update your medication list any time medications or doses are changed and carry your medication list at all times in case of emergency. Electronically Signed By: CATIA HAY PA-C Signed On:10-JUN-2015 12:08:11 Your Allergies & Intolerances Substance Reaction Symptoms [...] local Clinic if further appointment detail needed. Consider Using Patient Online Services Patient Online Services is a secure online and Mobile application that lets you: ?? View lab and test results ?? View portions of your medical record including clinical notes, immunizations and discharge summaries ?? Request an appointment or medication refill ?? Review your appointment schedule ?? Send secure messages to your care team Its easy to create an account if you dont have one. Go to [email or web address] and click on Create Your Account. Then, follow the directions to complete the online form. Youll be asked for your [facility] number which you can find at the top of this document. Your Goals/Additional instructions: Source: [facility] POWERCHART Document Id: [id number] Miscellaneous - Catia Hay P.A.-C., P.A. - 06/10/2015 12:08 PM CDT Ambulatory Discharge Medication List [address] [id number] Visit Information Name: AINSLEY AGUAYO [facility] Number: [phone] Visit Date: 06/10/2015 12:08:27 Attending Provider: CATIA HAY PA-C Primary Care Provider: JACK LUO MD AINSLEY AGUAYO has been given the [...] nasal (Flonase 0.05 mg/inh nasal spray) 1 Brinson(s), Nostrils(Both), once a day fluticasone-salmeterol (Advair Diskus 250 mcg-50 mcg inhalation powder) 1 puff(s), Inhalation, two times a day New Routed to [address] [id number] hydrochlorothiazide (hydrochlorothiazide 25 mg oral tablet) 1 Tablet(s), Oral, once a day levothyroxine (Synthroid 75 mcg (0.075 mg) oral [...] 5mg daily for 4 days then stop Routed to [address] [place] SANCHES [id number] triamcinolone topical (triamcinolone 0.1% topical cream) See Instructions 1 keiry Topical prn Stop Taking the Following Medications: Medication list as of 06-10-15 12:08 Attention: If you have any medications at home that are not on this list, DO NOT take them until youcontact your provider for clarification. Give a copy of your medication list to your primary care provider. Update your medication list any time medications or doses are changed and carry your medication list at all times in case of emergency. Electronically Signed By: CATIA HAY PA-C Signed On:10-JUN-2015 12:08:11 Additional Information: Source: [facility] POWERCHART Document Id: [id number] Miscellaneous - Stephen Rubin L.PAntwanNAntwan - 06/10/2015 10:24 AM CDT Adult Cream Tester Intake/History Adult Cream Tester Intake/History Entered On: 06/10/2015 10:34 CDT Performed On: 06/10/2015 10:24 CDT by STEPHEN RUBIN LPN Intake Chief Complaint : allergies kicking in, ever since she moved to a new home (brand new) Onset of Symptoms : May 09 Temperature Core : 36.9 DegC(Converted to: 98.4 DegF) Peripheral Pulse Rate : 76 /min Respiratory Rate : 16 /min Systolic Blood Pressure : 136 mmHg Diastolic Blood Pressure : 72 mmHg NIBP Mean : 93 mmHg BP Location : Right upper extremity Blood Pressure Cuff Size : Large SpO2 : 97 % Oxygen Therapy : Room air Actual Weight : 95.0 kg(Converted to: 209 lb 7 oz) Weight Source : Standing scale Dosing Weight Clinic : 95 kg STEPHEN RUBIN LPN - 06/10/2015 10:24 CDT General Info Information Given By : Patient Preferred Communication Mode : Verbal Languages : Japanese Is Patient Female and 13-50 no hysterectomy : No STEPHEN RUBIN LPN - 06/10/2015 10:24 CDT Subjective Pain Symptoms : No STEPHEN RUBIN LPN - 06/10/2015 10:24 CDT Dependent Habits Tobacco Use/Currently Using : No Tobacco Use/Last 12 months : No Tobacco Use/Advised to Quit : No Exposure to Tobacco Smoke : Other: Never Smoked Smoking Status : Never smoker Alcohol Use : No STEPHEN RUBIN LPN - 06/10/2015 10:24 CDT Caffeine Use Grid Caffeine Use : Current Type : Soft drinks Frequency : Daily Amount : 1 can diet soda Last Use : 06/10/15 STEPHEN RUBIN LPN - 06/10/2015 10:24 CDT Recreational Drug Use Grid Drug Use : None STEPHEN RUBIN LPN - 06/10/2015 10:24 CDT Source: [facility] Document Id: [id number] CDT!41 documented in this encounter Plan of Treatment Not on filedocumented as of this encounter Visit Diagnoses Not on filedocumented in this encounter Additional Health Concerns Assessment Noted Time PHQ-9 Depression Total Score: 1 09/16/2014 9:15 AM SERVICE DELIVERY CONSULTANT documented as of this encounter
--- OUTSIDE RECORDS SUMMARY | 2022-07-10 08:22 | XMS_ITS | Encounter Summary ---
:1940 Author Organization [facility] Address [address] [place] [address] Care Team Providers Name Role Phone Unavailable Primary Care Provider Unavailable Encounter Details Date Type Department Care Team Description 11/09/2014 Hospital Encounter HX NO MAPPING Donya Alexander V., APR N, C.N.P. [address] [place], [place] [phone] (Wo rk) Social History Tobacco Use Types [...] documented as of this encounter Progress Notes Dnoya Alexander V, MISA, C.N.P. - 11/09/2014 2:12 PM CST [id number] PHYSICIAN Dr. Zapien. HISTORY OF PRESENT ILLNESS I was asked to go speak with Ainsley regarding pain control. 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 She is doing well in the retirement and is actually planning on leaving on Saturday. She is pretty much independent in the retirement setting and is just receiving therapy here. She has two questions or complaints, the first one being she is asking for a laxative to be scheduled. The other thing is, she does not like the Percocet at all and would like to try and Marathon. I did tell her that she would get Senna-S 2 at bedtime tonight as senna given in the evening or at bedtime is to help promote a bowel movement in the morning. Her last BM was yesterday which was a medium. The Percocet will be discontinued, even though it was reduced yesterday. She will be started on Marathon 5/325 one for pain 1 to 5; 2 for pain 6 to 10 every 4 hours as needed. She is aware that she shouldstay on top of the pain. She states that she has pain during the night more than during the day, especially after she has been lying in bed and not moving around. She feels that the knee tightens. Nursing will continue to monitor, notify PLANT RELIABILITY ENGINEER/MD of changes. This was a face to face conversational visit for approximately 15 minutes. Donya Alexander CNP/tello cc: Senait [place] [address] Electronically Signed By: DONYA ALEXANDER CNP On: 11/17/2014 08:07 AM Source: [facility] MHSDOLBEYNONRADSYS Document Id: [id number] ING SPECIALIST documented in this encounter Plan of Treatment Not on filedocumented as of this encounter Visit Diagnoses Not on filedocumented in this encounter Additional Health Concerns Assessment Noted Time PHQ-9 Depression Total Score: 1 09/16/2014 9:15 AM SELLING SPECIALIST documented as of this encounter
--- OUTSIDE RECORDS SUMMARY | 2022-07-10 08:22 | XMS_ITS | Encounter Summary ---
:1940 Author Organization [facility] Address [address] [place] [address] Care Team Providers Name Role Phone Unavailable Primary Care Provider Unavailable Encounter Details Date Type Department Care Team Description 09/13/2016 Hospital Encounter HX NO MAPPING Jasmeet Cardenas M.D. [address], [place], [place] [address] Social History Tobacco Use Types Packs/Day Years [...]
--- OUTSIDE RECORDS SUMMARY | 2022-07-10 08:22 | XMS_ITS | Encounter Summary ---
:1940 Author Organization [facility] Address [address] [place] [address] Care Team Providers Name Role Phone Unavailable Primary Care Provider Unavailable Encounter Details Date Type Department Care Team Description 03/13/2016 Hospital Encounter HX [facility] FAMILYPRA Delbert Whitaker APRN C.N.P., M.S.N. [address] [place] [address] (Wo rk) Social History Tobacco Use Types [...] Sign Reading Time Taken Comments Blood Pressure 138/78 03/13/2016 8:44 AM CDT Pulse 68 03/13/2016 8:44 AM CDT Temperature - - Respiratory Rate 16 03/13/2016 8:44 AM CDT Oxygen Saturation - - Inhaled Oxygen Concentration - - Weight 96.4 kg (212 lb 8.4 oz) 03/13/2016 8:44 AM CDT Height - - Body Mass Index 36.6 02/07/2016 3:07 PM CDT documented in this encounter Medications at [...] of this encounter Progress Notes Sherman, Delbert Rodriguez, MISA, MAINTENANCE AND OPERATIONS SUPERVISOR - 03/13/2016 8:31 AM CDT [id number] CHIEF COMPLAINT/REASON FOR VISIT Low back pain and medication refill. HISTORY OF PRESENT ILLNESS A very pleasant 75-year-old female presents with intermittent low back pain. The patient had this off and on in the past. Feels like it is aggravated from walking recently and was worsening over the last couple of days. The patient says it is severe since yesterday. Patient does have history of arthritis. Patient was seen in Ortho by a surgeon that did some left knee surgery and that provider did recommend that she see Dr. Eliazar Maria for her back and that referral did go in. Patient does have an appointment on April 05. In the meantime patient states what has worked well for her arthritis in [facility] was Tylenol Arthritis. She does not take any at this time but will when the pain becomes severe. Patient states that she is going to a chiropractor and getting a massage today or tomorrow. Patientdenies that there is any radiating pain down through the legs. No numbness or tingling. No saddle paresthesias or incontinence of bowel or bladder. Patient also in need of prednisone renewal for allergy symptoms. Patient going on vacation, leaving on the , coming back on the . Where she is going, patient does have cats and she is allergic and the prednisone prescription is needed to help her through that allergy. Patient does have history of asthma, doing well at this time, well-controlled. Denies any recent illnesses such as high fever, severe headache, neck pain, chest pain, shortness of breath, abdominal pain, nausea, vomiting, or diarrhea. MEDICATIONS Reviewed today. See EMR medication list. ALLERGIES Reviewed today. See EMR allergy list. SYSTEMS REVIEW Negative except for pertinent positives in HPI. PAST MEDICAL/SURGICAL HISTORY Reviewed today. See EMR history and procedures. SOCIAL HISTORY Reviewed today. No changes. FAMILY HISTORY Reviewed today. No changes. VITAL SIGNS Refer to EMR vital signs flow sheet. PHYSICAL EXAMINATION GENERAL: Well appearing. No distress. NECK: Supple. Trachea midline. No lymphadenopathy. CARDIAC: Regular rate and rhythm. Normal S1, S2. No murmurs, rubs, or clicks. LUNGS: Lungs clear without wheezing, rhonchi, or rales. ABDOMEN: Soft. No tenderness on palpation. Normoactive bowel sounds. MUSCULOSKELETAL: Mild spasms palpated the lower lumbar paraspinal muscles. Mild tenderness to the area. No erythema or edema or ecchymoses. No step-off deformity or subluxation seen. IMPRESSION/REPORT/PLAN 1. Allergic rhinitis. Prednisone, prescribed refill for patient. Education regarding medication sideeffects discussed. 2. Low back pain. Physical therapy was also ordered today. Referral form given to patient. Six treatments, 2 times a week for 3 weeks, ordered. Patient states that she will seek physical therapy. She will keep her appointment scheduled with Dr. Maria on the . She will go to chiropractor also and receive massage as these treatments have helped in the past. Strongly encouraged patient to seek immediate medical attention or go to ER if she should have any paresthesias, weakness, numbness, tingling, incontinence of bowel or bladder, and she did verbalize good understanding. Antolin Diaz -C./tello Electronically Signed By: DELBERT WHITAKER [facility] On: 04/03/2016 11:12 AM Source: [facility] MHSDOLBEYNONRADSYS Document Id: [id number] documented in this encounter Miscellaneous Notes Miscellaneous - Joshua Rubin, LAntwanPAntwanNAntwan - 03/13/2016 8:44 AM CDT Adult Health Technician Hearing Intake/History Adult Health Technician Hearing Intake/History Entered On: 03/13/2016 8:47 CDT Performed On: 03/13/2016 8:44 CDT by JOSHUA RUBIN LPN Intake Chief Complaint : follow up on back justen has appointment on April [address] Elizalde Onset of Symptoms : December 2015 Temperature Core : 36.4 DegC(Converted to: 97.5 DegF) (LOW) Peripheral Pulse Rate : 68 /min Respiratory Rate : 16 /min Systolic Blood Pressure : 138 mmHg Diastolic Blood Pressure : 78 mmHg NIBP Mean : 98 mmHg BP Location : Right upper extremity Blood Pressure Cuff Size : Large Actual Weight : 96.4 kg(Converted to: 212 lb 8 oz) Weight Source : Standing scale Dosing Weight Clinic : 96.4 kg JOSHUA RUBIN LPN - 03/13/2016 8:44 CDT General Info Information Given By : Patient Preferred Communication Mode : Verbal Languages : Qatari Is Patient Female and 13-50 no hysterectomy : No JOSHUA RUBIN LPN - 03/13/2016 8:44 CDT Subjective Pain Symptoms : Yes JOSHUA RUBIN LPN - 03/13/2016 8:44 CDT Pain Scale Pain Scale Verbal 0-10 : Open JOSHUA RUBIN LPN - 03/13/2016 8:44 CDT Pain Pain Assessment Grid Pain 1 Location : Lower back Laterality : Right Intensity : 10 Duration : 24 hours JOSHUA RUBIN LPN - 03/13/2016 8:44 CDT Dependent Habits Exposure to Tobacco Smoke : Other: Never Smoked Smoking Status : Never smoker Tobacco 2A : No Tobacco Use/Currently Using : No Tobacco Use/Last 30 Days : No Tobacco Use/Last 12 months : No Alcohol Use : Yes JOSHUA RUBIN LPN - 03/13/2016 8:44 CDT Caffeine Use Grid Caffeine Use : Current Type : Soft drinks Frequency : Daily Amount : 1 can diet soda Last Use : 03/12/16 JOSHUA RUBIN LPN - 03/13/2016 8:44 CDT Recreational Drug Use Grid Drug Use : None JOSHUA RUBIN LPN - 03/13/2016 8:44 CDT Source: [employer] Document Id: [id number] CDT!49 Miscellaneous - Joshua Rubin, L.P.N. - 03/13/2016 8:44 AM CDT PHQ-9 PHQ-9 Entered On: 03/13/2016 8:47 CDT Performed On: 03/13/2016 8:44 CDT by JOSHUA RUBIN LPN PHQ-9 Little [...] difficult at all JOSHUA RUBIN LPN - 03/13/2016 8:44 CDT [facility] Document Id: [id number] CDT!13 documented in this encounter Plan of Treatment Not on filedocumented as of this encounter Visit Diagnoses Not on filedocumented in this encounter
--- OUTSIDE RECORDS SUMMARY | 2022-07-10 08:22 | XMS_ITS | Encounter Summary ---
:1940 Author Organization [facility] Address [address] [place] [address] Care Team Providers Name Role Phone Unavailable Primary Care Provider Unavailable Encounter Details Date Type Department Care Team Description 10/16/2016 Hospital Encounter HX [id number] Sherman, Cecily Rodriguez APRN, C.N.P., M. S.N. [address] [place], [place] [phone] (Wo rk) Social History [...] of this encounter Miscellaneous Notes Miscellaneous - Delbert Whitaker APRN, LOOM FIXER HELPER - 10/19/2016 8:53 AM CARAMEL CUTTER HELPER Normal Results Letter October 19, 2016 ELISE AGUAYO [address] [place] [id number] Dear ELISE AGUAYO, I am pleased to report that your results from the following diagnostic test(s) are normal. Please follow up with us as we discussed during your visit or sooner if you have any concerns. If you have questions or concerns, please do not hesitate to call our office. Result Name Current Result Previous Result Normal Range UA Color Yellow 10/16/2016 Yellow 09/13/2016 Colorless - UA Clarity Clear 10/16/2016 (*) Slightly Cloudy 09/13/2016 Clear - UA Spec Grav 1.015 10/16/2016 1.020 09/13/2016 UA pH 6.0 10/16/2016 7.5 09/13/2016 <5.0 - UA Protein (mg/dL) Negative 10/16/2016 Negative 09/13/2016 Negative - UA Glucose (mg/dL) Negative 10/16/2016 Negative 09/13/2016 Negative - UA Ketones (mg/dL) Negative 10/16/2016 Negative 09/13/2016 Negative - UA Bili Negative 10/16/2016 Negative 09/13/2016 Negative - UA Urobilinogen (mg/dL) 0.2 10/16/2016 0.2 09/13/2016 0.2 - UA Blood (*) Trace 10/16/2016 Negative 09/13/2016 Negative - UA Nitrite Negative 10/16/2016 (*) Positive 09/13/2016 Negative - UA Leuk Est (*) Trace 10/16/2016 (*) Large 09/13/2016 Negative - UR WBC (/HPF) Occ-3 10/16/2016 (*) 21-30 09/13/2016 None Seen - UR RBC (/HPF) Occ-2 10/16/2016 Occ-2 09/13/2016 None Seen - UR Squamous Epi Cells (/HPF) (*) Occ-3 10/16/2016 (*) Occ-3 09/13/2016 None Seen - Sincerely, DELBERT WHITAKER [address] [place] [id number] Electronic Signature Electronically Signed By: DELBERT WHITAKER CNP On: October 19, 2016 This document has images extracted. Source: [facility] POWERCHART Document Id: [id number] documented in this encounter Plan of Treatment Not on filedocumented as of this encounter Procedures Procedure Name Priority Date/Time Associated Diagnosis Comme nts URINALYSIS, Routine 10/16/2016 4:17 PM Results f or this MIDSTREAM, WITH CARAMEL CUTTER HELPER procedure ar e in CULTURE IF the results INDICATED section. documented in this encounter Results (ABNORMAL) Urinalysis, Midstream, with culture if indicated (10/16/2016 4:17 PM CARAMEL CUTTER HELPER) Patholo gist Method Time Signature HXUR WBC. Occ-3 None Seen HPF POWERCHART HXUR RBC. Occ-2 None Seen HPF POWERCHART Squamous Occ-3 (A) None Seen HPF POWERCHART Epithelial HXUr Color Yellow Colorless POWERCHART Clarity Clear Clear POWERCHART Glucose Negative Negative MGDL POWERCHART HXBILIRUBIN Negative Negative POWERCHART Ketones, QL(U) Negative Negative MGDL POWERCHART Specific 1.015 POWERCHART [place], POCT, U Comment: Reference Range Specific [place]: 1.000-1.035 HXBLOOD Trace (A) Negative POWERCHART pH, POCT, Urine 6.0 <5.0 POWERCHART Comment: Reference Range pH: 5.0-8.0 Protein, Ur, Dip Negative Negative MGDL POWERCHAR T Urobilinogen 0.2 0.2 MGDL POWERCHART Comment: Reference Range Urobilinogen: 0.2-1.0 mg/dL HXNITRITE Negative Negative POWERCHART Leukocyte Esterase Trace (A) Negative POWERCHART Specimen (Source) Anatomical Collection Method Collection Time Re ceived Time Location / / Volume Laterality Urine, First 10/16/2016 4:17 PM Voided CARAMEL CUTTER HELPER Delbert Whitaker APRN C.N.P., M.S.N. LAB URINE ORDERABLES Performing Organization Address City/State/ZIP Code Phon e Number POWERCHART documented in this encounter Visit Diagnoses Not on filedocumented in this encounter
--- OUTSIDE RECORDS SUMMARY | 2022-07-10 08:22 | XMS_ITS | Encounter Summary ---
:1940 Author Organization [facility] Address [address] [place] [address] Care Team Providers Name Role Phone Aneta Whitaker APRN, C.N.PAntwan, M.S.N. Primary Care Pr ovid Encounter Details Date Type Department Care Team Description 07/19/2017 Orders Only Department of [facility] Sherman, Arabella cruz Hypothyroidism; [facility] in [place], MISA Rodriguez C.N.PAntwan, Hype rlipidemia; [place] M.S.N. Hypertension NOS [address] [place] [address] [place], [place] [phone] (Wo rk) Social History Tobacco Use Types [...] on filedocumented as of this encounter Results BMP (Basic Metabolic Panel) (09/17/2017 8:29 AM [facility]) P athologist Signature Potassium, S 4.1 3.6 - 5.2 09/17/2017 [facility] mmol/L 11:32 [facility] Sodium, S 143 135 - 145 09/17/2017 [facility] mmol/L 11:32 AM [facility] Chloride, S 102 98 - 107 09/17/2017 [facility] mmol/L 11:32 AM [facility] Bicarbonate, S 27 22 - 29 09/17/2017 [facility] mmol/L 11:32 AM [facility] Anion Gap 14 7 - 15 09/17/2017 [facility] 11:32 AM [facility] BUN (Blood Urea 19 6 - 21 09/17/2017 [facility] Nitrogen), S mg/dL 11:32 AM [facility] Creatinine 0.85 0.59 - 09/17/2017 [facility] 1.04 mg/dL 11:32 AM [facility] eGFR 68 >=60 09/17/2017 [facility] Non-Black/Afric mL/min/BSA 11:32 AM [facility] [employer]- an Indian [place] [facility] Comment: ----ADDITIONAL INFORMATION---- Estimated GFR calculated using the 2009 CKD_EPI creatinine equation. eGFR Black/ 78 >=60 mL/min/BSA 09/17/2017 11:3 2 AM [facility] [place] [facility] Comment: ----ADDITIONAL INFORMATION---- Estimated GFR calculated using the 2009 CKD_EPI creatinine equation. Calcium, Total, S 10.1 8.9 - 10.1 mg/dL 09/17/2017 11:3 2 AM [facility] [place] [facility] Glucose, S 107 70 - 140 mg/dL 09/17/2017 11:32 AM [facility] [place] [facility] Specimen Anatomical Collection Method Collection Time Receive d Time (Source) Location / / Volume Laterality Blood 09/17/2017 8:29 AM 7 DAY CARE HOME PROVIDER 10:57 AM [facility] Aneta Whitaker APRN, C.N.P., M.S.N. LAB BLOOD ADD-ON Performing Organization Address City/State/ZIP Code Phon e Number [facility] [address] [place] [phone] LAB (ABNORMAL) Lipid Panel (09/17/2017 8:29 AM [facility]) P athologist Signature Cholesterol, 176 mg/dL 09/17/2017 [facility] Total 11:32 AM [facility] [place] [facility] Comment: ----REFERENCE VALUE---- Desirable: < 200 Borderline high: 200 - 239 High: > or = 240 Triglycerides 186 (H) mg/dL 09/17/2017 11:32 AM [facility] [place] [facility] Comment: ----REFERENCE VALUE---- Normal: <150 Borderline high: 150-199 High: 200-499 Very high: > or =500 Cholesterol, HDL, S 45 (L) >=50 mg/dL 09/17/2017 11:32 AM [facility] [place] [facility] Calculated LDL 94 mg/dL 09/17/2017 11:32 AM [facility] [place] [facility] Comment: ----REFERENCE VALUE---- Desirable: <100 Above Desirable: 100-129 Borderline high: 130-159 High: 160-189 Very high: > or =190 Cholesterol, Non-HDL, 131 mg/dL 09/17/2017 11:32 A M DAY CARE HOME PROVIDER [facility] Comment: ----REFERENCE VALUE---- Desirable: <130 Above Desirable: 130-159 Borderline high: 160-189 High: 190-219 Very high: > or =220 Specimen Anatomical Collection Method Collection Time Receive d Time (Source) Location / / Volume Laterality Blood 09/17/2017 8:29 AM 7 DAY CARE HOME PROVIDER 10:57 AM DAY CARE HOME PROVIDER Victor Hugo Renteria APRNN.P., M.S.N. LAB BLOOD ADD-ON Performing Organization Address City/[facility] Phon e Number [facility] [address] [place] [address] LAB S-TSH (Thyroid-Stimulating Hormone - Sensitive) (09/17/2017 8:29 AM DAY CARE HOME PROVIDER) athologist Signature TSH, Sensitive 1.8 0.3 - 4.2 09/17/2017 [facility] mIU/L 11:32 AM [facility] Comment: Biotin has been identified by the lopez ruiz as a potential interfering substance. ??Higher concentr ations of biotin may be found in multivitamins, hair/nail supple ments, and workout supplements. ??If the result does not [facility] clinical observations, repeat testing after patient refrains fr om the use of supplements for at least 12 hours. Specimen Anatomical Collection Method Collection Time Receive d Time (Source) Location / / Volume Laterality Blood 09/17/2017 8:29 AM 7 DAY CARE HOME PROVIDER 10:57 AM DAY CARE HOME PROVIDER Abelardo Renteria APRN.N.P., M.S.N. LAB BLOOD ADD-ON Performing Organization Address City/[facility]/ZIP Code Phon e Number [facility] [place] [address] [place] [address] LAB documented in this encounter Visit Diagnoses Diagnosis Hypothyroidism Hyperlipidemia Hypertension NOS documented in this encounter Care Teams Creative Lead Relationship Specialty Start Date End Date Aneta Whitaker APRN C.N.P., PCP - General 06/13/18 M.S.N. [address] [place] [phone] documented as of this encounter
--- OUTSIDE RECORDS SUMMARY | 2022-07-10 08:22 | XMS_ITS | Encounter Summary ---
:1940 Author Organization [facility] Address [address] [place] [address] Care Team Providers Name Role Phone Unavailable Primary Care Provider Unavailable Encounter Details Date Type Department Care Team Description 09/20/2015 Hospital Encounter HX NO MAPPING Aneta Whitaker APRN, C.N.P., M. S.N. [address] [place], [place] [phone] (Wo rk) Social History [...] More than 4 times per year 03/16/2022 jainism services? Do you belong to any clubs [...] Miscellaneous - Conversion, Historical Provider Ser - 09/20/2015 11:59 PM HEAT TREAT FURNACE OPERATOR Coding Summary-Paper Based CODING DATE: 10/06/2015 FINAL [facility] STATUS: * Discharged to Home or Self Care PAYOR: Medicare ADMIT DX: REASON FOR VISIT DX: FINAL DX: PRINCIPAL: Z00.00 Encounter for general adult medical examination without abnormal findings SECONDARY: PROCEDURES DOCTOR NAME DATE NOTE: The code number assigned matches the documented diagnosis and / or procedure in the patient's chart. However, the narrative phrase printed from the coding software may appear abbreviated, or result in slightly different terminology. Coded By: FRANCINE VIZCARRA Date Saved: 10/06/2015 02:57 pm [facility] POWERCH[facility] Document Id: [id number] documented in this encounter Plan of Treatment Not on filedocumented as of this encounter Visit Diagnoses Not on filedocumented in this encounter Additional Health Concerns Assessment Noted Time PHQ-9 Depression Total Score: 1 09/20/2015 8:43 AM HEAT TREAT FURNACE OPERATOR documented as of this encounter
--- OUTSIDE RECORDS SUMMARY | 2022-07-10 08:22 | XMS_ITS | Encounter Summary ---
:1940 Author Organization [facility] Address [address] [place] [address] Care Team Providers Name Role Phone Unavailable Primary Care Provider Unavailable Encounter Details Date Type Department Care Team Description 11/26/2014 Hospital Encounter HX NO MAPPING Anabella Root M.D. [address] [place], [place] [phone] (Wo rk) Social History [...] - Conversion, Historical Provider Ser - 11/26/2014 11:59 PM DIRECTOR OF DISTANCE LEARNING Coding Summary-Paper Based CODING DATE: 12/03/2014 FINAL [facility] STATUS: * Discharged to [...] result in slightly different terminology. Coded By: CHASIDY ALVARENGA Date Saved: 12/03/2014 06:42 pm Source: [facility]! Document Id: [id number] documented in this encounter Plan of Treatment Not on filedocumented as of this encounter Visit Diagnoses Not on filedocumented in this encounter Additional Health Concerns Assessment Noted Time PHQ-9 Depression Total Score: 1 09/16/2014 9:15 AM DIRECTOR OF DISTANCE LEARNING documented as of this encounter
--- OUTSIDE RECORDS SUMMARY | 2022-07-10 08:22 | XMS_ITS | Encounter Summary ---
:1940 Author Organization [facility] Address [address] [place] [address] Care Team Providers Name Role Phone Unavailable Primary Care Provider Unavailable Encounter Details Date Type Department Care Team Description 11/18/2014 Hospital Encounter HX [facility] Jack Apodaca i, M.D. [address] [place] [address] (Wo rk) Social History Tobacco [...] or relatives? How often do you attend adventism or More than 4 times per year 03/16/2022 anabaptism services? Do you belong to any clubs or Yes 03/16/2022 organizations such as adventism groups, unions, fraternal or athletic groups, or [...] place to sleep or slept in a mcc (including now)? Sex Assigned at Date Recorded Female 06/26/2021 8:35 AM CDT documented as of this encounter Last Filed Vital Signs Vital Sign Reading Time Taken Comments Blood Pressure 132/74 11/18/2014 1:47 PM BREAKER UNIT ASSEMBLER Pulse 76 11/18/2014 1:47 PM BREAKER UNIT ASSEMBLER Temperature - - Respiratory Rate 12 11/18/2014 1:47 PM BREAKER UNIT ASSEMBLER Oxygen Saturation - - Inhaled Oxygen Concentration - - Weight 93 kg (205 lb 0.4 oz) 11/18/2014 1:47 PM BREAKER UNIT ASSEMBLER Height - - Body Mass Index 35.88 10/15/2014 11:45 AM BREAKER UNIT ASSEMBLER documented in this encounter Medications at Time [...] encounter Progress Notes Jack Lopez M.D. - 11/18/2014 1:32 PM CST [id number] CHIEF COMPLAINT/ REASON FOR VISIT Possible UTI. HISTORY OF PRESENT ILLNESS Ainsley is a 74 year old female who presents to the clinic today for possible UTI. When Ainsley woke up this morning she experienced burning when she urinated and her back has been sore. She had had a left total knee arthroplasty on 2014 and she wants to clarify her pain medicationschedule. Ainsley also needs her Denver refilled. Ainsley has been constipated since her surgery. She has been taking over the counter Senna. The patientdenies any additional questions or concerns at this time. MEDICATIONS Post-visit Medication Reconciliation Reviewed and are as outlined in the EMR includin. Levaquin 250 mg, 1 tablet, PO, daily for 7 days, prescribed today. 2. Denver 5mg-325mg, 1 tablet, PO, q6hr, for pain, renewed today. ALLERGIES Cats-unknown Prochlorperazine-unknown Dust mite SYSTEMS REVIEW See HPI. PAST [...] hemorrhage. 16. Left total knee arthroplasty 10/2014. PREVENTIVE SERVICES Tobacco use: none, never smoker. VITAL SIGNS WEIGHT: 93 kg. TEMP: 37 Deg C. PULSE: 76 /min. RESP: 12 /min. SYSTOLIC: 132 mmHg. DIASTOLIC: 74 mmHg. PHYSICAL EXAMINATION GENERAL: Patient is alert and oriented times three, in no acute distress, good hygiene and is dressed appropriately. HEART: Regular rate and rhythm without murmur. LUNGS: Clear to auscultation. ABDOMEN: Soft and nontender with no masses. No tenderness in the suprapubic area. EXTREMITIES: Surgical over the right knee consistent with recent with arthroplasty it is healing well with mild swelling with no redness or drainage. DIAGNOSTICS: UA with culture: positive for UTI. IMPRESSION/REPORT/PLAN 1. UTI. I ordered a UA with culture. The UA came back positive. I am treating her with Levaquin 250 mg, once a day for 7 days. I encouraged increased fluid intake. 2. Recent left total knee arthroplasty. Her many questions about amount and timing about pain medications are answered prescription for Denver is renewed. 3. Constipation. She will continue to use a stool softener only on a daily basis and use the Senna product for acute needs. 4. Follow up: The patient will contact the clinic with any new or worsening symptoms. This document serves as a record of services personally performed by Jack Dorman MD. It was created on their behalf by Leila Alexandra, a trained medical billing supervisor. The creation of this record is based on the scribe's personal observations and the provider's statements to them. This document has been denise cked and approved by the attending provider. Jack Martin M.D./anson Electronically Signed By: JACK LOPEZ MD On: 11/21/2014 07:46 PM Source: [facility] MHSDOLBEYNONRADSYS Document Id: [id number] KER UNIT ASSEMBLER documented in this encounter Miscellaneous Notes Miscellaneous - Jack Lopez M.D. - 11/18/2014 11:30 PM BREAKER UNIT ASSEMBLER Ambulatory Patient Summary [address] [id number] Visit Information Name: AINSLEY AGUAYO [facility] Number: [id number] Current Date: 11/18/2014 23:30:21 Physicians Attending Provider: JACK LOPEZ MD Primary Care Provider: JACK LOPEZ MD AINSLEY AGUAYOZABETH has been given the following list of [...] nasal (Flonase 0.05 mg/inh nasal spray) 1 Hegins(s), Nostrils(Both), once a day hydrochlorothiazide (hydrochlorothiazide 25 mg oral tablet) 1 Tablet(s), Oral, once a day HYDROcodone-acetaminophen (Denver 5 mg-325 mg oral tablet) 1 Tablet(s), Oral, every 6 hours New Routed to [facility] levofloxacin (Levaquin 250 mg oral tablet) 1 Tablet(s), Oral, once a day x 7 day(s) New Routed to [place] [address] [place], [place] [phone] levothyroxine (Synthroid 75 mcg (0.075 mg) oral tablet) 1 Tablet(s), Oral, once a day lisinopril (lisinopril 30 mg oral tablet) 1 Tablet(s), Oral, once a day *loratadine (Claritin 10 mg oral tablet) 1 Tablet(s), [...] 5mg daily for 4 days then stop triamcinolone topical (triamcinolone 0.1% topical cream) See Instructions 1 keiry Topical prn * You have let us know that you are not taking this medication as listed. Please talk with your primary care provider or the health care provider who prescribed the medication as soon as possible. Stop Taking the Following Medications: Medication list as of 11-18-14 23:30 Attention: If you have any medications at [...] Electronically Signed By: JACK LOPEZ MD Signed On:18-NOV-2014 23:30:06 Your Allergies & Intolerances Substance Reaction Symptoms [...] Your Upcoming Appointments Date Time Location Provider 11/26/2014 11:00 [facility] Jack Dorman MD Attention: Contact your local Clinic if further appointment detail needed. Your Goals/Additional instructions: Source: [facility] POWERCHART Document Id: [id number] KER UNIT ASSEMBLER Miscellaneous - Jack Lopez M.D. - 11/18/2014 11:30 PM BREAKER UNIT ASSEMBLER Ambulatory Discharge Medication List [address] [id number] Visit Information Name: ARNOLAINSLEY HEALYZABETH [facility] Number: [id number] Visit Date: 11/18/2014 23:30:20 Attending Provider: JACK LOPEZ MD Primary Care Provider: JACK LOPEZ MD AINSLEY AGUAYOZABETH has been given the following list of [...] nasal (Flonase 0.05 mg/inh nasal spray) 1 Hegins(s), Nostrils(Both), once a day hydrochlorothiazide (hydrochlorothiazide 25 mg oral tablet) 1 Tablet(s), Oral, once a day HYDROcodone-acetaminophen (Denver 5 mg-325 mg oral tablet) 1 Tablet(s), Oral, every 6 hours New Routed to [place] levofloxacin (Levaquin 250 mg oral tablet) 1 Tablet(s), Oral, once a day x 7 day(s) New Routed to [address] [phone] levothyroxine (Synthroid 75 mcg (0.075 mg) oral tablet) 1 Tablet(s), Oral, once a day lisinopril (lisinopril 30 mg oral tablet) 1 Tablet(s), Oral, once a day *loratadine (Claritin 10 mg oral tablet) 1 Tablet(s), [...] 5mg daily for 4 days then stop triamcinolone topical (triamcinolone 0.1% topical cream) See Instructions 1 keiry Topical prn * You have let us know that you are not taking this medication as listed. Please talk with your primary care provider or the health care provider who prescribed the medication as soon as possible. Stop Taking the Following Medications: Medication list as of 11-18-14 23:30 Attention: If you have any medications at home that are not on this list, DO NOT take them until youcontact your provider for clarification. Give a copy of your medication list to your primary care provider. Update your medication list any time medications or doses are changed and carry your medication list at all times in case of emergency. Electronically Signed By: JACK LOPZE MD Signed On:18-NOV-2014 23:30:06 Additional Information: Source: [facility] POWERCHART Document Id: [id number] KER UNIT ASSEMBLER Miscellaneous - Miya Lutz L.PAntwanNAntwan - 11/18/2014 1:47 PM CST Adult Diver Helper Intake/History Adult Diver Helper Intake/History Entered On: 11/18/2014 13:50 BREAKER UNIT ASSEMBLER Performed On: 11/18/2014 13:47 BREAKER UNIT ASSEMBLER by MIYA LUTZ LPN Intake Chief Complaint : ?UTI Temperature Core : 37 DegC(Converted to: 98.6 DegF) Peripheral Pulse Rate : 76 /min Respiratory Rate : 12 /min (LOW) Heart Rhythm : Regular Systolic Blood Pressure : 132 mmHg Diastolic Blood Pressure : 74 mmHg NIBP Mean : 93 mmHg BP Location : Left upper extremity Blood Pressure Cuff Size : Large Actual Weight : 93 kg(Converted to: 205 lb 0 oz) Weight Source : Standing scale Dosing Weight Clinic : 93 kg MIYA LUTZ LPN - 11/18/2014 13:47 BREAKER UNIT ASSEMBLER General Info Information Given By : Patient Languages : Monegasque Is Patient Female and 13-50 no hysterectomy : No MIYA LUTZ LPN - 11/18/2014 13:47 BREAKER UNIT ASSEMBLER Subjective Pain Symptoms : Yes MIYA LUTZ LPN - 11/18/2014 13:47 BREAKER UNIT ASSEMBLER Dependent Habits Tobacco Use/Currently Using : No Exposure to Tobacco Smoke : Other: Never Smoked Smoking Status : Never smoker MIYA LUTZ LPN - 11/18/2014 13:47 BREAKER UNIT ASSEMBLER Caffeine Use Grid Caffeine Use : Current Type : Soft drinks Frequency : Daily Amount : 1 can diet soda Last Use : 09/15/14 MIYA LUTZ LPN - 11/18/2014 13:47 BREAKER UNIT ASSEMBLER Recreational Drug Use Grid Drug Use : None MIYA LUTZ LPN - 11/18/2014 13:47 BREAKER UNIT ASSEMBLER ID Screen Drug Resistant Organism : No Travel Within Last 21 Days : No MIYA LUTZ WORKERS' COMPENSATION CLAIMS SUPERVISOR - 11/18/2014 13:47 BREAKER UNIT ASSEMBLER Source: [facility] POWERCHART Document Id: [id number] BREAKER UNIT ASSEMBLER!38 KER UNIT ASSEMBLER documented in this encounter Plan of Treatment Not on filedocumented as of this encounter Procedures Procedure Name Priority Date/Time Associated Comments Diagnosis BACTERIAL CULTURE, Routine 11/18/2014 1:45 PM Res ults for this AEROBIC, URINE BREAKER UNIT ASSEMBLER procedure are in the results section. HXUR % DYSMORPHIC RBC Routine 11/18/2014 1:44 PM Results for this BREAKER UNIT ASSEMBLER procedure are i n the results section. URINALYSIS WITH Routine 11/18/2014 1:44 PM Result s for this MICROSCOPIC BREAKER UNIT ASSEMBLER procedure are i n the results section. documented in this encounter Results Bacterial Culture, Aerobic, Urine (11/18/2014 1:45 PM BREAKER UNIT ASSEMBLER) [facility] Method Time Signature Bacterial POWERCHART Culture, Aerobic, Urine HXFinal Mixed eros. No POWERCHART further studies unless notified. HXFinal [place] POWERCHART Microbiology laboratory [phone] Specimen (Source) Anatomical Collection Method Collection Time Re ceived Time Location / / Volume Laterality Urine, First 11/18/2014 1:45 PM Voided BREAKER UNIT ASSEMBLER Jack Root M.D. LAB MICROBIOLOGY - GEN ERAL ORDERABLES Performing Organization Address City/[facility]/ZIP Code Phon e Number POWERCHART HXUR % DYSMORPHIC RBC (11/18/2014 1:44 PM BREAKER UNIT ASSEMBLER) athologist Signature Dysmorphic RBC <=25 <=25 POWERCHART Specimen Anatomical Collection Method Collection Time Receive d Time (Source) Location / / Volume Laterality Urine, First 11/18/2014 1:44 PM 5 1:44 Voided BREAKER UNIT ASSEMBLER PM BREAKER UNIT ASSEMBLER Jack Root M.D. LAB HISTORICAL ORDERS Performing Organization Address City/[facility]/ZIP Code Phon e Number POWERCHART (ABNORMAL) Urinalysis, Complete, Includes Microscopic (11/18/2014 1:44 PM BREAKER UNIT ASSEMBLER) [facility] Method Time Signature Protein, Ur, Trace Negative POWERCHART Dip MGDL HXUr Color Yellow Colorless POWERCHART Glucose Negative Negative POWERCHART MGDL HXBILIRUBIN Negative Negative POWERCHART Ketones, QL(U) Negative Negative POWERCHART MGDL Specific 1.020 POWERCHART [place], POCT, U Clarity Cloudy (A) Clear POWERCHART pH, POCT, Urine 7.0 <5.0 POWERCHART HXBLOOD Moderate Negative POWERCHART (A) Urobilinogen 0.2 0.2 MGDL POWERCHART HXNITRITE Negative Negative POWERCHART Leukocyte Large (A) Negative POWERCHART Esterase HXUR WBC. 51-100 (A) None Seen POWERCHART HPF HXUR RBC. 21-30 (A) None Seen POWERCHART HPF HXUR Bacteria, Present (A) None Seen POWERCHART Squamous None Seen None Seen POWERCHART Epithelial HPF Specimen (Source) Anatomical Collection Method Collection Time Re ceived Time Location / / Volume Laterality Urine, First 11/18/2014 1:44 PM Voided BREAKER UNIT ASSEMBLER Jack Root M.D. LAB URINE ORDERABLES Performing Organization Address City/State/ZIP Code Phon e Number POWERCHART documented in this encounter Visit Diagnoses Not on filedocumented in this encounter Additional Health Concerns Assessment Noted Time PHQ-9 Depression Total Score: 1 09/16/2014 9:15 AM BREAKER UNIT ASSEMBLER documented as of this encounter
--- OUTSIDE RECORDS SUMMARY | 2022-07-10 08:22 | XMS_ITS | Encounter Summary ---
:1940 Author Organization [facility] Address [address] [place] [address] Care Team Providers Name Role Phone Unavailable Primary Care Provider Unavailable Encounter Details Date Type Department Care Team Description 10/18/2015 Hospital Encounter HX [facility] FBK[facility] FAMILYPRA Delbert Whitaker APRN C.N.P., M.S.N. [address] [place] [address] (Wo rk) Social History Tobacco Use Types [...] More than 4 times per year 03/16/2022 oriental orthodox services? Do you belong to any clubs [...] Sign Reading Time Taken Comments Blood Pressure 134/74 10/18/2015 9:45 AM CLAM DREDGE BOAT CAPTAIN Pulse 81 10/18/2015 9:45 AM CLAM DREDGE BOAT CAPTAIN Temperature - - Respiratory Rate 16 10/18/2015 9:45 AM CLAM DREDGE BOAT CAPTAIN Oxygen Saturation - - Inhaled Oxygen Concentration - - Weight 97.5 kg (214 lb 15.2 oz) 10/18/2015 9:45 AM CLAM DREDGE BOAT CAPTAIN Height - - Body Mass Index 37.24 09/20/2015 8:29 AM CLAM DREDGE BOAT CAPTAIN documented in this encounter Medications at Time [...] this encounter Progress Notes Delbert Whitaker APRN, SUPERINTENDENT CONCRETE MIXING PLANT - 10/18/2015 9:26 AM CST [id number] CHIEF COMPLAINT/REASON FOR VISIT Follow up on labs. HISTORY OF PRESENT ILLNESS A very pleasant 74-year-old female presents for followup on lab work. Patient, on 09/20, had annual lab work collected for review. The patient does have history of asthma. Said she has been having someasthma related issues, chest congestion and head cold, and states that she does see [facility] for her asthma and allergy and has appointment scheduled in November. States symptoms are improving. Denies any colored sputum or nasal discharge. She denies any high fevers, severe headache, neck pain, chest pain, shortness of breath, abdominal pain, nausea, vomiting, or diarrhea. MEDICATIONS Reviewed. See EMR medication list. ALLERGIES Reviewed. See EMR allergy list. SYSTEMS REVIEW Negative except for pertinent positives in HPI. PAST MEDICAL/SURGICAL HISTORY See EMR history and procedures. SOCIAL HISTORY Reviewed. No changes. FAMILY HISTORY Reviewed. No changes. VITAL SIGNS Refer to EMR vital signs flowsheet. PHYSICAL EXAMINATION Deferred. IMPRESSION/REPORT/PLAN 1. Hyperlipidemia. Reviewed results with patient. Lipid panel normal except for HDL which was low at41. Encouraged her to supplement with vitamin D and fish oil and to eat a low-fat diet, eating lean meats, fish, fruits and vegetables. Patient verbalized good understanding. [facility] States she knows she needs to lose weight and will help all of her issues, her high cholesterol and will help with potential for diabetes and her knee pain. 2. Hyperthyroidism. TSH within normal limits. Will check lab values again in March. Patient going to [place] for a few months next month. 3. Prediabetes. Patient's hemoglobin A1c was 6.1. Patient would like to try diet and exercise versusmedications at this time and based on values in March will decide whether or not to start medications. Agreeable to this. The patient will get back on the Weight Watchers plan and start exercising regularly now that her knee is feeling better. Encouraged patient to please follow up if no improvement or symptoms worsen in the next 5 to 7 days. Encouraged patient to go to ER if she develops a high fever 102.7 or greater, chills, severe headache, neck pain, chest pain, shortness of breath, abdominal pain, nausea, vomiting, or diarrhea. Patient verbalized good understanding of these instructions. Antolin Diaz -C./tello Electronically Signed By: DELBERT WHITAKER CNP On: 10/19/2015 07:45 AM Modified by and Electronically Signed by: DELBERT WHITAKER CNP On: 10/19/2015 07:45 AM Source: [facility] MHSDOLBEYNONRADSYS Document Id: [id number] DREDGE BOAT CAPTAIN documented in this encounter Nursing Notes Joshua Rubin L.PAntwanN. - 12/05/2015 4:13 PM CST Prior authorization request pravastatin Document Contains Addenda Addendum by JOSHUA RUBIN LPN on December 12, 2015 10:14 CLAM DREDGE BOAT CAPTAIN Prior authorization approved. from 10/07/2015 through 12/06/2016. Will alert pharmacy. Modified by and Electronically Signed by: JOSHUA RUBIN LPN On: 12/12/2015 10:14 AM Prior authorization request for Pravastatin completed through Cover My Meds,[place] [id number]. Time spent on form 20 minutes. Electronically Signed By: JOSHUA RUBIN LPN On: 12/05/2015 04:14 PM Source: [email or web address] Document Id: [id number] DREDGE BOAT CAPTAIN documented in this encounter Miscellaneous Notes Miscellaneous - Conversion, Historical Provider Ser - 03/12/2016 9:13 AM CDT [facility] March 12, 2016 Re: ELISE AMBROSEBobbiGARCIA 1940 MR# [id number] Date of Visit 10/18/2015 [facility] - Dr. Eliazar Elizalde, To Whom it May Concern, This patient is being referred for continuing care at your facility. Following your evaluation(s), Iwould appreciate hearing: Your findings and recommendations Notification regarding any medication changes Copies of lab radiology and other reports Please see included pertinent records. Thank you for your assistance with the evaluation and treatment of this patient. Sincerely, Delbert Whitaker SUPERINTENDENT CONCRETE MIXING PLANT This document has images extracted. [facility] [employer] [facility] Document Id: [id number] Miscellaneous - Joshua Rubin L.P.N. - 10/18/2015 9:45 AM CST Adult Program Support Specialist Intake/History Adult Program Support Specialist Intake/History Entered On: 10/18/2015 9:47 CLAM DREDGE BOAT CAPTAIN Performed On: 10/18/2015 9:45 CLAM DREDGE BOAT CAPTAIN by ERICHSEN, DWYN E WELDER PIPE MAKING Intake Chief Complaint : Lab results Temperature Core : 36.6 DegC(Converted to: 97.9 DegF) Peripheral Pulse Rate : 81 /min Respiratory Rate : 16 /min Systolic Blood Pressure : 134 mmHg Diastolic Blood Pressure : 74 mmHg NIBP Mean : 94 mmHg BP Location : Left upper extremity Blood Pressure Cuff Size : Large SpO2 : 95 % Oxygen Therapy : Room air Actual Weight : 97.5 kg(Converted to: 214 lb 15 oz) Weight Source : Standing scale Dosing Weight Clinic : 97.5 kg JOSHUA RUBIN LPN - 10/18/2015 9:45 CLAM DREDGE BOAT CAPTAIN General Info Information Given By : Patient Preferred Communication Mode : Verbal Languages : Mexican Is Patient Female and 13-50 no hysterectomy : No JOSHUA RUBIN LPN - 10/18/2015 9:45 CLAM DREDGE BOAT CAPTAIN Subjective Pain Symptoms : JOSHUA Gautam LPN - 10/18/2015 9:45 CLAM DREDGE BOAT CAPTAIN Dependent Habits Exposure to Tobacco Smoke : Other: Never Smoked Smoking Status : Never smoker Tobacco 2A : No Tobacco Use/Currently Using : No Tobacco Use/Last 30 Days : No Tobacco Use/Last 12 months : No Alcohol Use : Yes JOSHUA RUBIN LPN - 10/18/2015 9:45 CLAM DREDGE BOAT CAPTAIN Caffeine Use Grid Caffeine Use : Current Type : Soft drinks Frequency : Daily Amount : 1 can diet soda Last Use : 10/18/14 JOSHUA RUBIN LPN - 10/18/2015 9:45 CLAM DREDGE BOAT CAPTAIN Recreational Drug Use Grid Drug Use : None JOSHUA RUBIN LPN - 10/18/2015 9:45 CLAM DREDGE BOAT CAPTAIN Source: [facility] POWERCHART Document Id: [id number] CLAM DREDGE BOAT CAPTAIN!41 DREDGE BOAT CAPTAIN documented in this encounter Plan of Treatment Not on filedocumented as of this encounter Visit Diagnoses Not on filedocumented in this encounter Additional Health Concerns Assessment Noted Time PHQ-9 Depression Total Score: 1 09/20/2015 8:43 AM CLAM DREDGE BOAT CAPTAIN documented as of this encounter
--- OUTSIDE RECORDS SUMMARY | 2022-07-10 08:23 | XMS_ITS | Encounter Summary ---
:1940 Author Organization [facility] Address [address] [place] [address] Care Team Providers Name Role Phone Unavailable Primary Care Provider Unavailable Encounter Details Date Type Department Care Team Description 03/31/2014 Hospital Encounter HX [facility] FBKF FAMILYPRA Naomi Parker, MISA, C.N.P., D. N.P. [address] [place], [place] [address] (Wo rk) Social History Tobacco Use Types [...] More than 4 times per year 03/16/2022 mandaeism services? Do you belong to any clubs [...] Sign Reading Time Taken Comments Blood Pressure 130/80 03/31/2014 10:56 AM CDT Pulse 64 03/31/2014 10:55 AM CDT Temperature - - Respiratory Rate 16 03/31/2014 10:55 AM CDT Oxygen Saturation - - Inhaled Oxygen Concentration - - Weight - - Height - - Body Mass Index - - documented in this encounter Medications at Time [...] of this encounter Miscellaneous Notes Miscellaneous - Joshua Rubin, L.P.N. - 03/31/2014 10:56 AM CDT Ambulatory Vitals Height Weight Ambulatory Vitals Height Weight Entered On: 03/31/2014 10:56 CDT Performed On: 03/31/2014 10:56 CDT by JOSHUA RUBIN LPN Vitals/Ht/Wt Systolic Blood Pressure : 130 mmHg Diastolic Blood Pressure : 80 mmHg NIBP Mean : 97 mmHg BP Location : Left upper extremity Blood Pressure Cuff Size : Regular JOSHUA RUBIN LPN - 03/31/2014 10:56 CDT Source: [facility] POWERCHART Document Id: [id number] CDT!7 Miscellaneous - Joshua Rubin L.P.N. - 03/31/2014 10:55 AM CDT Ambulatory Vitals Height Weight Ambulatory Vitals Height Weight Entered On: 03/31/2014 10:56 CDT Performed On: 03/31/2014 10:55 CDT by JOSHUA RUBIN LPN Vitals/Ht/Wt Peripheral Pulse Rate : 64 /min Respiratory Rate : 16 /min Heart Rhythm : Regular Systolic Blood Pressure : 132 mmHg Diastolic Blood Pressure : 80 mmHg NIBP Mean : 97 mmHg BP Location : Left upper extremity Blood Pressure Cuff Size : Regular JOSHUA RUBIN LPN - 03/31/2014 10:55 CDT Source: [employer] Document Id: [id number] CDT!10 documented in this encounter Plan of Treatment Not on filedocumented as of this encounter Visit Diagnoses Not on filedocumented in this encounter
--- OUTSIDE RECORDS SUMMARY | 2022-07-10 08:23 | XMS_ITS | Encounter Summary ---
:1940 Author Organization [facility] Address [address] [place] [address] Care Team Providers Name Role Phone Unavailable Primary Care Provider Unavailable Encounter Details Date Type Department Care Team Description 07/01/2013 Hospital Encounter [facility]X [facility] Elizabeth Parker APRN, C.N.P., D.N.P. [address] [place], [place] [address] (Wo rk) Social History [...] as needed. documented as of this encounter Procedure Notes Conversion, Historical Provider Jose Enrique - 07/01/2013 3:50 PM CDT Urine Dipstick Urine Dipstick Entered On: 07/01/2013 15:51 CDT Performed On: 07/01/2013 15:50 CDT by TITA CALDWELL Urine Dipstick UA Color POC : Yellow UA Appear POC : Cloudy UA Leuk POC : 2+ Moderate UA Nitrite POC : Positive UA Urobilinogen POC : 0.2 mg/dl UA Protein POC : 2+ (100 mg/dl) UA pH POC : 6.0 UA Blood POC : 3+ LARGE UA Spec Grav POC : 1.030 UA Ketones POC : Trace (5 mg/dl) UA Bili POC : 1+ Small UA Glucose POC : Negative Test Strip Lot # : [id number] Test Strip Expiration Date : TITA CALDWELL - 07/01/2013 15:50 CDT [facility] POWERCHART Document Id: [id number] CDT!16 documented in this encounter Nursing Notes Conversion, Historical Provider Jose Enrique - 07/01/2013 3:52 PM CDT Nurse Only Documentation Nurse Only Documentation Entered On: 07/01/2013 15:54 CDT Performed On: 07/01/2013 15:52 CDT by TITA CALDWELL UTI Screening Protocol Initiated : yes Provider Notified : ELIZABETH POTTER CNP Provider Notified Date/Time : 07/01/2013 14:00 CDT Symptoms : Dysuria, Other: Dark cloudy urine. Onset of Symptoms : Last night Frequent UTI's : No Frequent UTI's : No UA Ordered : Yes UA Positive : Yes Patient Treated : Yes TITA CALDWELL - 07/01/2013 15:52 CDT UTI Fever Fever : No Low back pain : No Under 18 years of age : No Greater than 3 UTI's in past year : No First time with UTI symptoms : No Unusual vaginal discharge : No Nausea/Vomiting : No : No Abdominal pain : No TITA CALDWELL - 07/01/2013 15:52 CDT Source: [employer] Document Id: [id number] CDT!22 documented in this encounter Plan of Treatment Not on filedocumented as of this encounter Procedures Procedure Name Priority Date/Time Associated Diagnosis Comme nts HX UA NITRITE POC Routine 07/01/2013 3:51 PM Resu lts for this CDT procedure are i n the results section. HX UA GLUCOSE POC Routine 07/01/2013 3:51 PM Resu lts for this CDT procedure are i n the results section. HX UA APPEAR POC Routine 07/01/2013 3:51 PM Resul ts for this CDT procedure are i n the results section. DIPSTICK, POCT, U Routine 07/01/2013 3:51 PM Resu lts for this (DIPC1) CDT procedure are i n the results section. DIPSTICK, POCT, U Routine 07/01/2013 3:51 PM Resu lts for this (DIPC1) CDT procedure are i n the results section. DIPSTICK, POCT, U Routine 07/01/2013 3:51 PM Resu lts for this (DIPC1) CDT procedure are i n the results section. DIPSTICK, POCT, U Routine 07/01/2013 3:51 PM Resu lts for this (DIPC1) CDT procedure are i n the results section. DIPSTICK, POCT, U Routine 07/01/2013 3:51 PM Resu lts for this (DIPC1) CDT procedure are i n the results section. DIPSTICK, POCT, U Routine 07/01/2013 3:51 PM Resu lts for this (DIPC1) CDT procedure are i n the results section. DIPSTICK, POCT, U Routine 07/01/2013 3:51 PM Resu lts for this (DIPC1) CDT procedure are i n the results section. DIPSTICK, POCT, U Routine 07/01/2013 3:51 PM Resu lts for this (DIPC1) CDT procedure are i n the results section. POCT KETONE, URINE Routine 07/01/2013 3:51 PM Res ults for this CDT procedure are i n the results section. documented in this encounter Results HX UA GLUCOSE POC (07/01/2013 3:51 PM CDT) P athologist Signature Glucose, POCT, Negative POWERCHART U Specimen (Source) Anatomical Collection Method Collection Time Re ceived Time Location / / Volume Laterality 07/01/2013 3:51 PM CDT Historical Provider LAB HISTORICAL ORDERS Performing Organization Address City/[facility]/ZIP Code Phon e Number POWERCHART Dipstick, POCT, Urine (lab) (07/01/2013 3:51 PM CDT) P athologist Signature Bilirubin, 1+ Small POWERCHART POCT, U Specimen (Source) Anatomical Collection Method Collection Time Re ceived Time Location / / Volume Laterality 07/01/2013 3:51 PM CDT Historical Provider LAB POCT ORDERABLES - DEVICE Performing Organization Address City/State/ZIP Code Phon e Number POWERCHART Ketone, Urine, POCT (07/01/2013 3:51 PM CDT) Analysis Performed At Patho logist Time Signature Ketone, POCT, Trace (5 POWERCHART U mg/dl) Specimen (Source) Anatomical Collection Method Collection Time Re ceived Time Location / / Volume Laterality 07/01/2013 3:51 PM CDT Historical Provider LAB POCT ORDERABLES-MANUAL Performing Organization Address City/[facility]/ZIP Code Phon e Number POWERCHART Dipstick, POCT, Urine (lab) (07/01/2013 3:51 PM CDT) P athologist Signature Specific 1.030 POWERCHART [place], POCT, U Specimen (Source) Anatomical Collection Method Collection Time Re ceived Time Location / / Volume Laterality 07/01/2013 3:51 PM CDT Historical Provider LAB POCT ORDERABLES - DEVICE Performing Organization Address City/[facility]/ZIP Code Phon e Number POWERCHART Dipstick, POCT, Urine (lab) (07/01/2013 3:51 PM CDT) athologist Signature Blood, POCT, U 3+ LARGE POWERCHART Specimen (Source) Anatomical Collection Method Collection Time Re ceived Time Location / / Volume Laterality 07/01/2013 3:51 PM CDT Historical Provider LAB POCT ORDERABLES - DEVICE Performing Organization Address [facility] Phon e Number POWERCHART Dipstick, POCT, Urine (lab) (07/01/2013 3:51 PM CDT) athologist Signature pH, POCT, Urine 6.0 POWERCHART Specimen (Source) Anatomical Collection Method Collection Time Re ceived Time Location / / Volume Laterality 07/01/2013 3:51 PM CDT Historical Provider LAB POCT ORDERABLES - DEVICE Performing Organization Address [facility] Phon e Number POWERCHART Dipstick, POCT, Urine (lab) (07/01/2013 3:51 PM CDT) Analysis Performed At Patho logist Time Signature Protein, POCT, 2+ (100 POWERCHART U mg/dl) Specimen (Source) Anatomical Collection Method Collection Time Re ceived Time Location / / Volume Laterality 07/01/2013 3:51 PM CDT Historical Provider LAB POCT ORDERABLES - DEVICE Performing Organization Address [facility] Code Phon e Number POWERCHART Dipstick, POCT, Urine (lab) (07/01/2013 3:51 PM CDT) Analysis Performed At Patho logist Time Signature Urobilinogen, 0.2 mg/dl POWERCHART POCT, Urine Specimen (Source) Anatomical Collection Method Collection Time Re ceived Time Location / / Volume Laterality 07/01/2013 3:51 PM CDT Historical Provider LAB POCT ORDERABLES - DEVICE Performing Organization Address [facility] Phon e Number POWERCHART HX UA NITRITE POC (07/01/2013 3:51 PM CDT) P athologist Signature Nitrites, Positive POWERCHART POCT, U Specimen (Source) Anatomical Collection Method Collection Time Re ceived Time Location / / Volume Laterality 07/01/2013 3:51 PM CDT Historical Provider LAB HISTORICAL ORDERS Performing Organization Address [facility] Phon e Number POWERCHART Dipstick, POCT, Urine (lab) (07/01/2013 3:51 PM CDT) Patholo gist Method Time Signature Leukocytes, 2+ Moderate POWERCHART POCT, U Specimen (Source) Anatomical Collection Method Collection Time Re ceived Time Location / / Volume Laterality 07/01/2013 3:51 PM CDT Historical Provider LAB POCT ORDERABLES - DEVICE Performing Organization Address [facility] Phon e Number POWERCHART HX UA APPEAR POC (07/01/2013 3:51 PM CDT) P athologist Signature Appearance Cloudy POWERCHART Specimen (Source) Anatomical Collection Method Collection Time Re ceived Time Location / / Volume Laterality 07/01/2013 3:51 PM CDT Historical Provider LAB HISTORICAL ORDERS Performing Organization Address [facility] Phon e Number POWERCHART Dipstick, POCT, Urine (lab) (07/01/2013 3:51 PM CDT) P athologist Signature Color Yellow POWERCHART Specimen (Source) Anatomical Collection Method Collection Time Re ceived Time Location / / Volume Laterality 07/01/2013 3:51 PM CDT Historical Provider LAB POCT ORDERABLES - DEVICE Performing Organization Address [facility] Phon e Number POWERCHART documented in this encounter Visit Diagnoses Not on filedocumented in this encounter
--- OUTSIDE RECORDS SUMMARY | 2022-07-10 08:23 | XMS_ITS | Encounter Summary ---
:1940 Author Organization [facility] Address [address] [place] [address] Care Team Providers Name Role Phone Unavailable Primary Care Provider Unavailable Encounter Details Date Type Department Care Team Description 09/24/2012 Hospital Encounter [facility]X [facility]ILY[facility] Naomi Parker, MISA, C.N.P., D. N.P. [address] [place], [place] [address] (Wo rk) Social History [...] Reading Time Taken Comments Blood Pressure 130/80 09/24/2012 8:34 AM DIVISION TRAFFIC SUPERINTENDENT Pulse - - Temperature - - Respiratory Rate - - Oxygen Saturation - [...] as needed. documented as of this encounter Nursing Notes Conversion, Historical Provider Ser - 09/24/2012 8:33 AM CST Nurse Only Documentation Nurse Only Documentation Entered On: 09/24/2012 8:33 DIVISION TRAFFIC SUPERINTENDENT Performed On: 09/24/2012 8:33 DIVISION TRAFFIC SUPERINTENDENT by TITA CALDWELL Vitals/Ht/Wt Systolic Blood Pressure : 152mmHg (HI) Diastolic Blood Pressure : 92mmHg (>HHI) NIBP Mean : 112mmHg BP Location : Right upper extremity Blood Pressure Cuff Size : Regular TITA CALDWELL - 09/24/2012 8:33 DIVISION TRAFFIC SUPERINTENDENT Allergy Allergies (Active) Cats Estimated Onset Date: Unspecified ; Reactions: unknown ; Created By: PHILLIP JARAMILLO MD; Reaction Status: Active ; Category: Other ; Substance: Cats ; Type: Allergy ; Updated By: PHILLIP JARAMILLO; Reviewed Date: 09/12/2012 8:34 DIVISION TRAFFIC SUPERINTENDENT Dust Mite Estimated Onset Date: Unspecified ; Created By: KVNG PAULINO LPN; Reaction Status: Active ; Category: Drug ; Substance: Dust Mite ; Type: Allergy ; Updated By: KVNG PAULINO LPN; Reviewed Date: 09/12/2012 8:34 DIVISION TRAFFIC SUPERINTENDENT prochlorperazine Estimated Onset Date: Unspecified ; Reactions: unknown ; Created By: BRAD JARAMILLO MD; Reaction Status: Active ; Category: Drug ; Substance: prochlorperazine ; Type: Allergy ; Updated By: PHILLIP JARAMILLO MD; Reviewed Date: 09/12/2012 8:34 DIVISION TRAFFIC SUPERINTENDENT Source: [facility] POWERCHART Document Id: [id number] documented in this encounter Miscellaneous Notes Miscellaneous - Conversion, Historical Provider Ser - 12/23/2012 11:27 AM CDT Medication Refill Msg Document Contains Addenda Addendum by EBEN JC on 23 December 2012 14:53:55 CDT Rx faxed to pharmacy. Addendum by JONATHON POTTER CNP on 23 December 2012 11:56:58 CDT From: JONATHON POTTER CNP To: DAVID Pascual [facility] Nurse; Sent: 12/23/2012 11:56:58 CDT Subject: FW: Medication Refill Msg Need to refax. She wanted 90 instead of 30 From: KARELY CHOW To: JONATHON POTTER CNP; Sent: 12/23/2012 11:27:19 CDT Subject: Medication Refill Msg Caller is: ( ) Patient ( ) Mother ( ) Father ( ) Spouse ( ) Daughter ( ) Son ( ) Pharmacy ( ) Other: Provider: Pharmacy: [facility] fax# [phone] Name of Medications Needing Refill: Chlorthalidone 25mg tab - patient is requesting 90 day refill. Last refill 12/22/12, #30 Last Refill Date: Additional Information: Last / Future Appointment: Disposition: ( ) Send to Pharmacy ( ) Call to Pharmacy ( ) Patient will excelsior picker Script ( ) Mail Rx to Patient Source: [facility] [employer] Document Id: [id number] Miscellaneous - Conversion, Historical Provider Ser - 09/24/2012 3:14 PM DIVISION TRAFFIC SUPERINTENDENT General Message Document Contains Addenda Addendum by KARELY CHOW on 24 September 2012 16:02:46 DIVISION TRAFFIC SUPERINTENDENT From: KARELY CHOW To: JONATHON POTTER CNP; Sent: 09/24/2012 16:02:46 DIVISION TRAFFIC SUPERINTENDENT Subject: RE: General Message Thanks! Addendum by JONATHON POTTER CNP on 24 September 2012 15:58:34 DIVISION TRAFFIC SUPERINTENDENT From: JONATHON POTTER CNP To: KARELY CHOW; Sent: 09/24/2012 15:58:34 DIVISION TRAFFIC SUPERINTENDENT Subject: RE: General Message Called in 30 day supply to [facility]. From: KAERLY CHOW To: JONATHON POTTER CNP; Sent: 09/24/2012 15:14:51 DIVISION TRAFFIC SUPERINTENDENT Subject: General Message Patient requesting med refills for Lisinopril, levothyroxine, Atenolol from [facility] pharmacy. Looks like her meds were printed off on 09/12/12 but cannot tell if pt has hardcopies or if they were faxed to pharmacy. Called [facility] and they are confused as well since they do not have a current rx for the meds requested. Source: [facility] POWERCHART Document Id: [id number] Miscellaneous - Conversion, Historical Provider Ser - 09/24/2012 8:34 AM DIVISION TRAFFIC SUPERINTENDENT Ambulatory Vitals Height Weight Ambulatory Vitals Height Weight Entered On: 09/24/2012 8:35 DIVISION TRAFFIC SUPERINTENDENT Performed On: 09/24/2012 8:34 DIVISION TRAFFIC SUPERINTENDENT by TITA CALDWELL Vitals/Ht/Wt Systolic Blood Pressure : 130mmHg Diastolic Blood Pressure : 80mmHg NIBP Mean : 97mmHg BP Location : Right upper extremity Blood Pressure Cuff Size : Regular TITA CALDWELL - 09/24/2012 8:34 DIVISION TRAFFIC SUPERINTENDENT [facility] POWERCHART Document Id: [id number] documented in this encounter Plan of Treatment Not on filedocumented as of this encounter Visit Diagnoses Not on filedocumented in this encounter
--- OUTSIDE RECORDS SUMMARY | 2022-07-10 08:23 | XMS_ITS | Encounter Summary ---
:1940 Author Organization [facility] Address [address] [place] [address] Care Team Providers Name Role Phone Unavailable Primary Care Provider Unavailable Encounter Details Date Type Department Care Team Description 03/31/2014 Hospital Encounter [facility]X [facility] Elizabeth Parker APRN, C.N.P., D.N.P. [address] [place], [place] [address] (Wo rk) Social History [...] or relatives? How often do you attend gnosticist or More than 4 times per year 03/16/2022 scientologist services? Do you belong to any clubs or Yes 03/16/2022 organizations such as gnosticist groups, unions, fraternal or athletic groups, or [...] of this encounter Miscellaneous Notes Miscellaneous - Elizabeth Parker, MISA, C.N.P. - 03/31/2014 11:31 AM CDT General Message From: ELIZABETH POTTER WOOL HANKER To: ELISE AGUAYO Sent: 03/31/2014 11:31:27 CDT Subject: General Message labs look great Results: Date Result Name Value Ref Range 03/31/2014 09:05 Sodium Lvl 144 mmol/L (135 - 145) 03/31/2014 09:05 Potassium Lvl 3.9 mmol/L (3.5 - 4.8) 03/31/2014 09:05 Chloride 101 mmol/L (100 - 108) 03/31/2014 09:05 CO2 27 mmol/L (22 - 30) 03/31/2014 09:05 Glucose Lvl 82 03/31/2014 09:05 Creatinine 0.8 mg/dL (0.7 - 1.2) 03/31/2014 09:05 EGFR (MDRD) >60 mL/min 03/31/2014 09:05 EGFR (MDRD) >60 mL/min 03/31/2014 09:05 BUN 17 mg/dL (6 - 20) 03/31/2014 09:05 Calcium Lvl 10.0 mg/dL (8.5 - 10.5) Source: [facility] POWERCHART Document Id: [id number] documented in this encounter Plan of Treatment Not on filedocumented as of this encounter Procedures Procedure Name Priority Date/Time Associated Diagnosis Comme nts BASIC METABOLIC Routine 03/31/2014 9:05 AM Result s for this PANEL, S/P CDT procedure are i n the results section. documented in this encounter Results BMP (Basic Metabolic Panel) (03/31/2014 9:05 AM CDT) P athologist Signature BUN (Blood Urea 17 6 - 20 POWERCHART Nitrogen), S MGDL Creatinine 0.8 0.7 - 1.2 POWERCHART MGDL Glucose 82 POWERCHART Potassium, S 3.9 3.5 - 4.8 POWERCHART MMOLL Sodium, S 144 135 - 145 POWERCHART MMOLL Chloride, S 101 100 - 108 POWERCHART MMOLL CO2 Total 27 22 - 30 POWERCHART MMOLL Calcium, Total, 10.0 8.5 - 10.5 POWERCHART S MGDL HXeGFR (MDRD) >60 MLMIN POWERCHART eGFR >60 MLMIN POWERCHART Black/ Specimen (Source) Anatomical Collection Method Collection Time Re ceived Time Location / / Volume Laterality Blood 03/31/2014 9:05 AM CDT Elizabeth Parker APRN, C.N.P., D.N.P. LAB BLOOD ADD-ON Performing Organization Address City/State/ZIP Code Phon e Number POWERCHART documented in this encounter Visit Diagnoses Not on filedocumented in this encounter
--- OUTSIDE RECORDS SUMMARY | 2022-07-10 08:23 | XMS_ITS | Encounter Summary ---
:1940 Author Organization [facility] Address [address] [place] [address] Care Team Providers Name Role Phone Unavailable Primary Care Provider Unavailable Encounter Details Date Type Department Care Team Description 07/05/2014 Hospital Encounter [facility]X [facility] FAMILY[facility] Naomi Parker, MISA, C.N.P., D. N.P. [address] [place], [place] [address] (Wo rk) Social History [...] Reading Time Taken Comments Blood Pressure 138/78 07/05/2014 1:38 PM CDT Pulse 84 07/05/2014 1:38 PM CDT Temperature - - Respiratory Rate 16 07/05/2014 1:38 PM CDT Oxygen Saturation - - Inhaled Oxygen Concentration - - Weight 93.4 kg (205 lb 14.6 oz) 07/05/2014 1:38 PM CDT Height - - Body Mass Index 35.2 09/25/2013 8:26 AM SILK SCREEN OPERATOR documented in this encounter Medications at Time [...] documented as of this encounter Progress Notes Elizabeth Parker APRN, C.N.P. - 07/05/2014 1:27 PM CDT FM-LE CHIEF COMPLAINT/REASON FOR VISIT Left knee pain. HISTORY OF PRESENT ILLNESS The patient is a 73-year-old female who presents to the clinic for left knee pain. Patient really has some questions regarding starting Celebrex and NSAIDs. Patient is being [facility] and did have a left knee injection on June [address] Nickerson. Patient will also be starting physical therapy at [facility]. She denies fever, chills, nausea, vomiting, shortness of breath or chest pain. MEDICATIONS See depart summary. ALLERGIES See EMR. PAST MEDICAL/SURGICAL HISTORY Unchanged. See EMR. SOCIAL HISTORY Unchanged. See EMR. FAMILY HISTORY Unchanged. See EMR. VITAL SIGNS See EMR. PHYSICAL EXAMINATION GENERAL: Well-nourished female in no acute distress. MENTAL: Alert and oriented to person, place and time. IMPRESSION/REPORT/PLAN Left knee pain. Patient's questions and concerns were all addressed. Patient will go ahead and startthe Celebrex 1 capsule once a day. Patient will also complete physical therapy. Patient verbalizes understanding and agrees with plan of care. Elizabeth Skinner CNP/tello Electronically Signed By: ELIZABETH SKINNER CNP On: 08/29/2014 10:37 AM Source: [facility] MHSDOLBEYNONRADSYS Document Id: [id number] SCREEN OPERATOR documented in this encounter Miscellaneous Notes Telephone Encounter - Conversion, Historical Provider Ser - 09/07/2014 10:27 AM CST *Phone Message Document Contains Addenda Addendum by JEREMIAH ELLSWORTH on 07 September 2014 14:00:49 SILK SCREEN OPERATOR From: JEREMIAH ELLSWORTH ([facility] Neonatology) To: [facility] Nurse; Sent: 09/07/2014 14:00:49 SILK SCREEN OPERATOR Subject: RE: *Phone Message scheduled Addendum by JOSHUA RUBIN LPN on 07 September 2014 12:01:39 SILK SCREEN OPERATOR From: JOSHUA RUBIN LPN ([facility] Nurse) To: [facility]; Sent: 09/07/2014 12:01:39 SILK SCREEN OPERATOR Subject: FW: *Phone Message Addendum by ELIZABETH SKINNER CNP on 07 September 2014 11:36:25 SILK SCREEN OPERATOR From: ELIZABETH SKINNER CNP To: DAVID Pascual Family Medicine Nurse; Sent: 09/07/2014 11:36:25 SILK SCREEN OPERATOR Subject: RE: *Phone Message labs ordered based on last year if new concerns no gurantee additional labs may not be needed. BMP, TSH, Lipid panel, and AST From: JEREMIAH ELLSWORTH ([facility] Pascual Physician Neonatology) To: ELIZABETH SKINNER CNP; Sent: 09/07/2014 10:27:03 SILK SCREEN OPERATOR Subject: *Phone Message Caller is: ( x ) Patient ( ) Mother ( ) Father ( ) Spouse ( ) Daughter ( ) Son ( ) Pharmacy ( ) Other: Physician: Patient MRN #: Reason for Call: S: Patient would like her labs done prior to her physical B: Her physical is scheduled with Igor on 09/16. She said you would know what labs she needed done. A: R: Please order labs for patient and let me know when done so I can schedule on the . I will change ordering provider to Igor so he gets the results. Message: Advice/Action: Source used: ( ) Verbalizes [...] back cell phone number ( ) Source: [facility] [employer] Document Id: [id number] Miscellaneous - Joshua Rubin, L.P.N. - 07/05/2014 1:38 PM CDT Adult Siderographist Intake/History Adult Siderographist Intake/History Entered On: 07/05/2014 13:40 CDT Performed On: 07/05/2014 13:38 CDT by JOSHUA RUBIN SLATE PICKER Intake Chief Complaint : left knee pain Onset of Symptoms : 06/21/14 Temperature Core : 36.6 DegC(Converted to: 97.9 DegF) Peripheral Pulse Rate : 84 /min Respiratory Rate : 16 /min Systolic Blood Pressure : 138 mmHg Diastolic Blood Pressure : 78 mmHg NIBP Mean : 98 mmHg BP Location : Left upper extremity Blood Pressure Cuff Size : Regular Actual Weight : 93.4 kg(Converted to: 205 lb 15 oz) Weight Source : Standing scale Dosing Weight Clinic : 93.4 kg JOSHUA RUBIN LPN - 07/05/2014 13:38 CDT General Info Information Given By : Patient Preferred Communication Mode : Verbal Languages : Tristanian Is Patient Female and 13-50 no hysterectomy : No JOSHUA RUBIN LPN - 07/05/2014 13:38 CDT Subjective Pain Symptoms : Yes JOSHUA RUBIN LPN - 07/05/2014 13:38 CDT Pain Pain Assessment Grid Pain 1 Location : Knee Laterality : Left Intensity : 7 Duration : 06/21/14 JOSHUA RUBIN LPN - 07/05/2014 13:38 CDT Dependent Habits Tobacco Use/Currently Using : No Tobacco Use/Last 12 months : No Tobacco Use/Advised to Quit : No Exposure to Tobacco Smoke : Other: Never Smoked Smoking Status : Never smoker Alcohol Use : No JOSHUA RUBIN LPN - 07/05/2014 13:38 CDT Caffeine Use Grid Caffeine Use : Current Type : Soft drinks Frequency : Daily Amount : 1 can diet soda JOSHUA RUBIN LPN - 07/05/2014 13:38 CDT Recreational Drug Use Grid Drug Use : None JOSHUA RUBIN LPN - 07/05/2014 13:38 CDT Source: [employer] Document Id: [id number]!45 documented in this encounter Plan of Treatment Not on filedocumented as of this encounter Visit Diagnoses Not on filedocumented in this encounter
--- OUTSIDE RECORDS SUMMARY | 2022-07-10 08:23 | XMS_ITS | Encounter Summary ---
:1940 Author Organization [facility] Address [address] [place] [address] Care Team Providers Name Role Phone Unavailable Primary Care Provider Unavailable Encounter Details Date Type Department Care Team Description 04/22/2014 Hospital Encounter [facility]X [facility] Naomi Parker, MISA, C.N.P., D. N.P. [address] [place], [place] [address] (Wo rk) Social History [...] or relatives? How often do you attend episcopal or More than 4 times per year 03/16/2022 holiness services? Do you belong to any clubs or Yes 03/16/2022 organizations such as episcopal groups, unions, fraternal or athletic groups, or [...] Sign Reading Time Taken Comments Blood Pressure 120/80 04/22/2014 9:51 AM CDT Pulse 80 04/22/2014 9:51 AM CDT Temperature - - Respiratory Rate 16 04/22/2014 9:51 AM CDT Oxygen Saturation - - Inhaled Oxygen Concentration - - Weight 93.3 kg (205 lb 11 oz) 04/22/2014 9:51 AM CDT Height - - Body Mass Index 35.16 09/25/2013 8:26 AM PHARMACY TECHNICIAN documented in this encounter Medications at Time [...] documented as of this encounter Progress Notes Jonathon Parker APRN, C.N.P. - 04/22/2014 9:41 AM CDT [id number] CHIEF COMPLAINT/REASON FOR VISIT Sore hand. HISTORY OF PRESENT ILLNESS The patient is a 73-year-old female who presents to the clinic for left hand pain after falling 2013. Patient at first was icing it 2 to 3 times a day. However, she is no longer icing it. She also allowed for rest before resuming use. This past Saturday, she did attempt to go golfing and it caused her pain. The pain is at the base of her palm near the lateral side. There is pain on palpation. There is no redness or swelling. She denies fever, chills, nausea, vomiting, shortness of breath or chest pain. MEDICATIONS See depart summary. PAST MEDICAL/SURGICAL HISTORY Unchanged. See EMR. SOCIAL HISTORY Unchanged. See EMR. FAMILY HISTORY Unchanged. See EMR. VITAL SIGNS See EMR. PHYSICAL EXAMINATION GENERAL: Well-nourished female in no acute distress. EXTREMITIES: Patient has full range of motion of wrist. Patient has no pain with flexion or dorsiflexion of the wrist. Patient has no pain flexing her digits. Patient has pain on palpation of the proximate base of the 4th and 5th metacarpals. No pain in carpal bones or radial and ulnar bones. MENTAL: Alert and oriented to person, place and time. IMPRESSION/REPORT/PLAN Left hand sprain. Will obtain x-ray to rule out fracture. Once I have results available, I will notify her. Patient was given a brace to apply stability and compression. Patient should allow time for rest and resume icing 2 to 3 times a day. She can take Tylenol for discomfort. Patient was instructed that she will gradually be able to resume activities as tolerated. If anything causes pain, she should not complete that activity. If no fracture, I would assume this pain should resolve in 2 to 4 weeks. Patient can return if worsens or does not improve. Patient verbalizes understanding and agrees withplan of care. Jonathon Skinner CNP/tello Electronically Signed By: JONATHON SKINNER CNP On: 05/28/2014 04:37 PM Source: [facility] MHSDOLBEYNONRADSYS Document Id: [id number] documented in this encounter Miscellaneous Notes Miscellaneous - Jonathon Parker APRN, C.N.P. - 04/22/2014 11:37 AM CDT Ambulatory Patient Summary [address] [id number] Visit Information Name: DDEEAINSLEY [facility] Number: [id number] Visit Date: 04/22/2014 11:37:03 Attending Provider: JONATHON SKINNER CNP Primary Care Provider: JONATHON SKINNER CNP DEDE AINSLEY GAVIRIA has been given the following [...] 1 Tablet(s), Oral, three times a day fluticasone nasal (Flonase 0.05 mg/inh nasal spray) 1 [place]ana[address](s), Nostrils(Both), once a day hydrochlorothiazide (hydrochlorothiazide 25 mg oral tablet) 1 Tablet(s), Oral, once a day ibuprofen (ibuprofen 200 mg oral tablet) levothyroxine (Synthroid 75 mcg (0.075 mg) oral [...] once a day (at bedtime) New Dose triamcinolone topical (triamcinolone 0.1% topical cream) See Instructions 1 keiry Topical prn Stop Taking the Following Medications: Medication list as of 04-22-14 11:37 Attention: If you have any medications at home that are not on this list, DO NOT take them until youcontact your provider for clarification. Give a copy of your medication list to your primary care provider. Update your medication list any time medications or doses are changed and carry your medication list at all times in case of emergency. Electronically Signed By: JONATHON SKINNER CNP Signed On:22-APR-2014 11:36:51 Additional Information: Source: [facility] POWERCHART Document Id: [id number] Miscellaneous - Jonathon Parker APRN C.N.P. - 04/22/2014 11:37 AM CDT Ambulatory Discharge Medication List [address] [id number] Visit Information Name: AINSLEY AGUAYO [facility] Number: [id number] Visit Date: 04/22/2014 11:37:01 Attending Provider: JONATHON SKINNER CNP Primary Care Provider: JONATHON SKINNER CNP AINSLEY AGUAYOZABETH has been given the following [...] 1 Tablet(s), Oral, three times a day fluticasone nasal (Flonase 0.05 mg/inh nasal spray) 1 Spanaway(s), Nostrils(Both), once a day hydrochlorothiazide (hydrochlorothiazide 25 mg oral tablet) 1 Tablet(s), Oral, once a day ibuprofen (ibuprofen 200 mg oral tablet) levothyroxine (Synthroid 75 mcg (0.075 mg) oral [...] once a day (at bedtime) New Dose triamcinolone topical (triamcinolone 0.1% topical cream) See Instructions 1 keiry Topical prn Stop Taking the Following Medications: Medication list as of 04-22-14 11:37 Attention: If you have any medications at home that are not on this list, DO NOT take them until youcontact your provider for clarification. Give a copy of your medication list to your primary care provider. Update your medication list any time medications or doses are changed and carry your medication list at all times in case of emergency. Electronically Signed By: JONATHON SKINNER [employer]MP TRUCK DRIVER [address] Signed On:22-APR-2014 11:36:51 Additional Information: Source: [facility] POWERCHART Document Id: [id number] Miscellaneous - Stephen Rubin, L.P.N. 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 Fell on it on 04/06/14 from a standing position. Onset of Symptoms : 04/06/14 Temperature Core : 36.3 DegC(Converted to: 97.3 DegF) (LOW) Peripheral Pulse Rate : 80 /min Respiratory Rate : 16 /min Systolic Blood Pressure : 120 mmHg Diastolic Blood Pressure : 80 mmHg NIBP Mean : 93 mmHg BP Location : Right upper extremity Blood Pressure Cuff Size : Regular Actual Weight : 93.3 kg(Converted to: 205 lb 11 oz) Weight Source : Standing scale Dosing Weight Clinic : 93.3 kg STEPHEN RUBIN LPN - 04/22/2014 9:51 CDT General Info Information Given By : Patient Preferred Communication Mode : Verbal Languages : Korean STEPHEN RUBIN LPN - 04/22/2014 9:51 CDT Subjective Pain Symptoms : Yes STEPHEN RUBIN LPN 04/22/2014 9:51 CDT Pain Pain Assessment Grid Pain 1 Location : Hand Laterality : Left Intensity : 8 (Comment: states does not hurt if not moving it. States pain is a 8 with ROM [STEPHEN RUBIN LPN - 04/22/2014 9:51 CDT] ) Duration : 04/06/14 STEPHEN RUBIN LPN - 04/22/2014 9:51 CDT Dependent Habits Tobacco Use/Currently Using : No Tobacco Use/Last 12 months : No Tobacco Use/Advised to Quit : No Exposure to Tobacco Smoke : Other: Never Smoked Smoking Status : Never smoker STEPHEN RUBIN LPN - 04/22/2014 9:51 CDT Caffeine Use Grid Caffeine Use : Current Type : Soft drinks Frequency : Daily Amount : 1 can diet soda STEPHEN RUBIN LPN - 04/22/2014 9:51 CDT Recreational Drug Use Grid Drug Use : None STEPHEN RUBIN LPN - 04/22/2014 9:51 CDT Source: [facility] TimZonCHART Document Id: [id number]!43 documented in this encounter Plan of Treatment Not on filedocumented as of this encounter Procedures Procedure Name Priority Date/Time Associated Diagnosis Comme nts DX HAND LEFT 3+ Routine 04/22/2014 10:51 AM Resul ts for this VIEWS CDT procedure are i n the results section. documented in this encounter Results DX Hand Left 3+ Views (04/22/2014 10:51 AM CDT) Anatomical Region Laterality Modality Upper Extremity, Hand Left Radiographic Imagi ng Specimen (Source) Anatomical Collection Method Collection Time Re ceived Time Location / / Volume Laterality 04/22/2014 10:51 AM CDT Addenda Addendum by Provider, Cristiana Marino 04/22/2014 10:51 AM CDT RAD^^^OW XR Hand Left 3 or more views 04/22/2014 10:51:10 Addendum by Ned Rai M.D. o n 04/22/2014 10:51 AM CDT RAD^^^MA XR Hand Left 3 or more views 04/22/2014 10:51:10 Narrative 04/22/2014 10:41 AM CDT Exam: ?XR Hand Left 3 or more views Clinical history: ??Hand pain [id number] s/ p fall (pain as base of palm laterally) Comparison: None Findings: The visualized carpals, metaca rpals, and phalanges are intact and well aligned without cortical lucency to suggest fracture. The distal radius and ulna are intact as well. 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 There is joint space narrowing o f the PIP and PIP joints of the hand. There are moderate first carpa l metacarpal degenerative changes. There is slight irregularity of the base of the first metacarpal laterally seen on the oblique image. Impression: Question partially healed no ndisplaced fracture of the base of the first metacarpal. Otherwise degenerative changes of the hand and wrist as described above. Procedure Note Chaparro Vasquez M.D. / ProviderDaniel M.D. - 02/15/2017 Exam: XR Hand Left 3 or more views Clinical history: Hand pain [id number] s/p fall (pain as base of palm laterally) Comparison: None Findings: The visualized carpals, metaca rpals, and phalanges are intact and well aligned without cortical lucency to suggest fracture. The distal radius and ulna are intact as well. 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 There is joint space narrowing o f the PIP and PIP joints of the hand. There are moderate first carpa l metacarpal degenerative changes. There is slight irregularity of the base of the first metacarpal laterally seen on the oblique image. Impression: Question partially healed no ndisplaced fracture of the base of the first metacarpal. Otherwise degenerative changes of the hand and wrist as described above. Alison Farmer(R), RSilver(R)(M) IMG DIAGNOSTIC IM AGING PROCEDURES documented in this encounter Visit Diagnoses Not on filedocumented in this encounter
--- OUTSIDE RECORDS SUMMARY | 2022-07-10 08:23 | XMS_ITS | Encounter Summary ---
:1940 Author Organization [facility] Address [address] [place] [address] Care Team Providers Name Role Phone Unavailable Primary Care Provider Unavailable Encounter Details Date Type Department Care Team Description 09/14/2014 Hospital Encounter HX [facility] Catia Rios P.A.-Abelardo., P.A. [address] [place], [place] [address] (Wo rk) Social History [...] or relatives? How often do you attend jehovah's witness or More than 4 times per year 03/16/2022 yazdanism services? Do you belong to any clubs or Yes 03/16/2022 organizations such as jehovah's witness groups, unions, fraternal or athletic groups, or [...] Associated Comments Diagnosis LIPID PANEL, S Routine 09/14/2014 8:34 Results fo r this AM CLUTCH SPECIALIST procedure are i n the results section. ASPARTATE Routine 09/14/2014 8:34 Results for this AMINOTRANSFERASE (AST), AM CLUTCH SPECIALIST proc edure are in S/P the results section. THYROID-STIMULATING Routine 09/14/2014 8:34 Resul ts for this HORMONE-SENSITIVE AM [employer]UTCH SPECIALIST procedure are in (S-TSH) the results section. BASIC METABOLIC PANEL, Routine 09/14/2014 8:34 Re sults for this S/P AM CLUTCH SPECIALIST procedure are i n the results section. documented in this encounter Results (ABNORMAL) BMP (Basic Metabolic Panel) (09/14/2014 8:34 AM CLUTCH SPECIALIST) P athologist Signature BUN (Blood Urea 18 6 - 20 POWERCHART Nitrogen), S MGDL Creatinine 0.8 0.7 - 1.2 POWERCHART MGDL Potassium, S 4.1 3.5 - 4.8 POWERCHART MMOLL Sodium, S 144 135 - 145 POWERCHART MMOLL Chloride, S 103 100 - 108 POWERCHART MMOLL CO2 Total 30 22 - 30 POWERCHART MMOLL Calcium, Total, 10.3 8.5 - 10.5 POWERCHART S MGDL HXeGFR (MDRD) >60 MLMIN POWERCHART eGFR >60 >=60 POWERCHART Black/ [id number] [place] Glucose, 105 (H) 70 - 99 POWERCHART Fasting, S MGDL Specimen (Source) Anatomical Collection Method Collection Time Re ceived Time Location / / Volume Laterality Blood 09/14/2014 8:34 AM CLUTCH SPECIALIST [facility] LAB BLOOD ADD-ON Performing Organization Address City/State/ZIP Code Phon e Number POWERCHART Thyroid-Stimulating Hormone-Sensitive (s-TSH) (09/14/2014 8:34 AM CLUTCH SPECIALIST) P athologist Signature TSH 1.73 0.27 - 4.20 POWERCHART (Thyrotropin) MIUL Specimen (Source) Anatomical Collection Method Collection Time Re ceived Time Location / / Volume Laterality Blood 09/14/2014 8:34 AM CLUTCH SPECIALIST [facility] LAB BLOOD ADD-ON Performing Organization Address City/State/ZIP Code Phon e Number POWERCHART AST (Aspartate Aminotransferase) (09/14/2014 8:34 AM CLUTCH SPECIALIST) Patholo gist Method Time Signature Aspartate 21 8 - 43 POWERCHART Aminotransferase UNITL (AST), S Specimen (Source) Anatomical Collection Method Collection Time Re ceived Time Location / / Volume Laterality Blood 09/14/2014 8:34 AM CLUTCH SPECIALIST [facility] LAB BLOOD ADD-ON Performing Organization Address City/State/ZIP Code Phon e Number POWERCHART Lipid Panel (09/14/2014 8:34 AM CLUTCH SPECIALIST) Analysis Performed At Patho logist Time Signature Cholesterol, Total 157 0 - 200 POWERCHART MGDL HX HDL 45.0 40.0 - POWERCHART 60.0 MGDL Triglycerides 125 0 - 150 POWERCHART MGDL Calculated LDL 87 0 - 100 POWERCHART MGDL Total 3 POWERCHART Cholesterol/HDL Ratio Specimen (Source) Anatomical Collection Method Collection Time Re ceived Time Location / / Volume Laterality Blood 09/14/2014 8:34 AM CLUTCH SPECIALIST [facility] LAB BLOOD ADD-ON Performing Organization Address City/State/ZIP Code Phon e Number POWERCHART documented in this encounter Visit Diagnoses Not on filedocumented in this encounter
--- OUTSIDE RECORDS SUMMARY | 2022-07-10 08:23 | XMS_ITS | Encounter Summary ---
:1940 Author Organization [facility] Address [address] [place] [address] Care Team Providers Name Role Phone Unavailable Primary Care Provider Unavailable Encounter Details Date Type Department Care Team Description 09/25/2013 Hospital Encounter HX [facility] Naomi Parker, MISA, C.N.P., D. N.P. [address] [place], [place] [address] (Wo rk) Social History [...] or slept in a [facility] (including now)? Sex Assigned at Date Recorded Female 06/26/2021 8:35 AM CDT documented as of this encounter Last Filed Vital Signs Vital Sign Reading Time Taken Comments Blood Pressure 130/78 09/25/2013 8:26 AM HEALTH EVALUATOR Pulse 84 09/25/2013 8:26 AM HEALTH EVALUATOR Temperature - - Respiratory Rate 16 09/25/2013 8:26 AM HEALTH EVALUATOR Oxygen Saturation - - Inhaled Oxygen Concentration - - Weight 91.9 kg (202 lb 9.6 oz) 09/25/2013 8:26 AM HEALTH EVALUATOR Height 162.9 cm (5' 4.13) 09/25/2013 8:26 AM HEALTH EVALUATOR Body Mass Index 34.63 09/25/2013 8:26 AM HEALTH EVALUATOR documented in this encounter Medications at Time [...] documented as of this encounter H&P Notes Jonathon Parker APRN, C.N.P. - 09/25/2013 8:13 AM CST [id number] CHIEF COMPLAINT/REASON FOR VISIT Annual medication renewal HISTORY OF PRESENT ILLNESS The patient is a 72-year-old female who presents to the clinic for her annual medication renewal. She denies fever, chills, nausea, vomiting, shortness of breath or chest pain. 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 Patient did have a recent asthma exacerbation and is currently finishing a course of prednisone. Patient also has a history of hypertension and denies any lightheadedness, dizziness or palpitations. She currently takes lisinopril and chlorthalidone. She also has a history of hyperlipidemia and takes pravastatin. She denies any muscle aches. She also has a history of hypothyroidism and takes Synthroid 75 mcg. She is due for TSH. She denies any signs and symptoms of hypothyroidism. She also has a history of allergic rhinitis and takes Singulair, Flonase and Claritin. Patient does spend part of the winter in [place] from November to January. She exercises 4 days a week for 1 hour at the gym. She is on a Weight Watchers diet. She goes to the dentist every 6 months and has eye exams yearly. MEDICATIONS See depart summary. ALLERGIES See EMR. SYSTEMS REVIEW Pertinent positives as noted in HPI, otherwise reviewed in its entirety and remainder negative. PAST MEDICAL/SURGICAL HISTORY Unchanged see EMR. SOCIAL HISTORY The patient is and has 1 son. She is retired. Please see health assessment PowerForm for complete details. FAMILY HISTORY Unchanged see EMR. VITAL SIGNS See EMR. PHYSICAL EXAMINATION GENERAL: Well-nourished female in no acute distress. Grooming and hygiene appropriate. SKIN: Warm, dry and pink. Patient has generalized lesions, none that are worrisome. HEAD: Normocephalic. EYES: Conjunctivae clear. Sclerae white. Pupils equal round and reactive to light. EOMs intact. Optic discs round with clear margins. No lesions or hemorrhages. Red reflex present bilaterally. ENT: Ear canals are clear bilaterally. TMs dull. Nasal mucosa pink and moist. Posterior pharynx moist and pink. No lesions or exudate. Teeth in good repair. NECK: Supple trachea midline. LYMPH: No lymphadenopathy. THYROID: No thyromegaly. No tenderness with palpation. BREASTS: Dense. No galactorrhea. Breast symmetrical. No lesions, inflammation or dimpling. PERIPHERAL VESSELS: Radial and dorsalis pedis +2 equal bilaterally. Capillary refill less than 3 seconds. HEART: Regular rate and rhythm. No murmurs. LUNGS: Clear to auscultation bilaterally. No wheezes, rales or rhonchi. BACK: No CVA tenderness. ABDOMEN: Soft, flat and symmetrical. Bowel sounds present times 4 quadrants. No bruits. No organomegaly. No masses felt or tenderness with palpation. RECTUM: Deferred. GENITALIA: Deferred. SPINE: Straight and erect posture. JOINTS: Full range of motion in all joints without limitations. Movements smooth and symmetrical. Nocrepitus or tenderness. EXTREMITIES: Warm, dry without peripheral edema. Muscle strength equal bilaterally. Nontender. GAIT: Gait is steady and even coordinated movements. MENTAL: Alert and oriented person, place and time. PHQ-9 with a score of 0. NEURO: Patellar and ankle reflexes +2. Strength is 5 out of 5 both upper and lower extremities. IMPRESSION/REPORT/PLAN 1. Satisfactory health maintenance exam. Patient's immunizations are current. Patient will be due for mammogram in January 2014 and she would like this ordered at [facility]. Patient was encouraged to exercise 30 minutes most days a week. Patient was encouraged follow a low-fat diet. Patient was encouraged to wear sunscreen when outside. 2. Asthma control is not indicated today. Patient will continue her prednisone prescribed by [place]. Patient states she is feeling better; however when answering questions, she has not had 4 weeks since the exacerbation. 3. Hypertension. We will obtain EKG and BMP and notify her of the result. Patient will continue her current regimen. 4. Hyperlipidemia. We will obtain a lipid panel and AST and notify her of the results. She will continue her pravastatin at this time. 5. Hypothyroidism. We will obtain TSH and notify her of the results. She will continue her current dose unless instructed differently. 6. Allergic rhinitis. She will continue her Singulair, Flonase and Claritin. Patient should follow up annually and is needed. Patient verbalizes understanding and agrees with plan of care. Jonathon Skinner CNP/mauricio Electronically Signed By: JONATHON SKINNER CNP On: 10/02/2013 08:06 AM Source: [facility] MHSDOLBEYNONRADSYS Document Id: [id number] TH EVALUATOR documented in this encounter Procedure Notes Stephen Rubin L.P.N. - 10/14/2013 1:57 PM CST Asthma Control Test (12 yrs and older) Asthma Control Test (12 yrs and older) Entered On: 10/28/2013 13:57 HEALTH EVALUATOR Performed On: 10/14/2013 13:57 HEALTH EVALUATOR by STEPHEN RUBIN ACT Past 4 weeks asthma interfered with work, school, or home : A little of the Time Past 4 weeks how often short of breath : Not at all Past 4 weeks symptoms effect sleep : Not at all Past 4 weeks how often inhaler or nebulizer used : Once a week or less Past 4 weeks rate your asthma control : Completely controlled ACT Score : 23 STEPHEN RUBIN - 10/28/2013 13:57 HEALTH EVALUATOR Source: [employer] Document Id: [id number] HEALTH EVALUATOR!8 TH EVALUATOR Stephen Rubin L.P.N. - 09/25/2013 8:30 AM CST Asthma Control Test (12 yrs and older) Asthma Control Test (12 yrs and older) Entered On: 09/25/2013 8:31 HEALTH EVALUATOR Performed On: 09/25/2013 8:30 HEALTH EVALUATOR by STEPHEN RUBIN ACT Past 4 weeks asthma interfered with work, school, or home : Some of the Time Past 4 weeks how often short of breath : Once a day Past 4 weeks symptoms effect sleep : 4 or more nights a week Past 4 weeks how often inhaler or nebulizer used : 3 or more times per day Past 4 weeks rate your asthma control : Somewhat controlled ACT Score : 10 STEPHEN RUBIN - 09/25/2013 8:30 HEALTH EVALUATOR Source: [employer] Document Id: [id number] HEALTH EVALUATOR!8 TH EVALUATOR documented in this encounter Miscellaneous Notes Miscellaneous - Jonathon Parker APRN, C.N.P. - 09/28/2013 9:06 AM HEALTH EVALUATOR Results Notification From: JONATHON SKINNER PRIMARY SPECIAL EDUCATOR To: DAVID Pascual Family Medicine Nurse; Sent: 09/28/2013 09:06:41 HEALTH EVALUATOR ! Show up: 09/28/2013 15:06:41 [facility] Subject: Results Notification Actions: Notify patient of results Reminder Comments: Impaired fasting glucose (prediabetes zone), LDL 102 just slightly above goal, TSH 1.0 (wnl). [facility] labs ok. Work on exercising 30-60 minutes most days of week, low fat diet, and healthy BMI. Results: Date Result Name Ind Value Ref Range 09/25/2013 09:39 Sodium Lvl 144 mmol/L (135 - 145) 09/25/2013 09:39 Potassium Lvl 3.8 mmol/L (3.5 - 4.8) 09/25/2013 09:39 Chloride 103 mmol/L (100 - 108) 09/25/2013 09:39 CO2 29 mmol/L (22 - 30) 09/25/2013 09:39 Glucose Fasting (H) 104 mg/dL (70 - 99) 09/25/2013 09:39 Creatinine 0.7 mg/dL (0.7 - 1.2) 09/25/2013 09:39 EGFR (MDRD) >60 mL/min 09/25/2013 09:39 EGFR (MDRD) >60 mL/min 09/25/2013 09:39 BUN 16 mg/dL (6 - 20) 09/25/2013 09:39 Calcium Lvl 10.0 mg/dL (8.5 - 10.5) 09/25/2013 09:39 AST 18 unit/L (8 - 43) 09/25/2013 09:39 Cholesterol 178 mg/dL (0 - 200) 09/25/2013 09:39 Trig (H) 172 mg/dL (0 - 150) 09/25/2013 09:39 HDL 42.0 mg/dL (40.0 - 60.0) 09/25/2013 09:39 LDL Calculated (H) 102 mg/dL (0 - 100) 09/25/2013 09:39 TSH, Sensitive-Campos 1.0 mIU/L (0.3-5.0 - ) Source: [facility] POWERCHART Document Id: [id number] Electronically signed by Conversion, [facility] Flight Control Tower Operator [id number] at 03/06/2017 8:38 PM CDT Miscellaneous - Jonathon Parker APRN, C.N.P. - 09/25/2013 9:04 AM HEALTH EVALUATOR Ambulatory Patient Summary [facility] [address] [place] [address] Visit Information Name: AINSLEY AGUAYO [facility] Number: [id number] Visit Date: 09/25/2013 09:04:24 Attending Provider: JONATHON SKINNER CNP Primary Care Provider: JONATHON SKINNER CNP AINSLEY AGUAYO has been given the following [...] needed for Shortness of breath / Wheezing Routed to [address] [id number] aspirin (aspirin 81 mg oral enteric coated tablet) 1 Tablet(s), Oral, once a day calcium-vitamin D (Calcium 600+D) 1 Tablet(s), Oral, three times a day chlorthalidone (chlorthalidone 25 mg oral tablet) 1 Tablet(s), Oral, once a day Routed to [address] [id number] fluticasone nasal (Flonase 0.05 mg/inh nasal spray) 1 Gaines(s), Nostrils(Both), once a day Routed [address] [id number] ibuprofen (ibuprofen 200 mg oral tablet) levothyroxine (Synthroid 75 mcg (0.075 mg) oral tablet) 1 Tablet(s), Oral, once a day Routed to [address] [id number] lisinopril (lisinopril 30 mg oral tablet) 1 Tablet(s), Oral, once a day Routed to [place] [address] [place], [place] [id number] loratadine (Claritin 10 mg oral tablet) 1 Tablet(s), Oral, once a day as needed for Allergy symptoms montelukast (Singulair 10 mg oral tablet) 1 Tablet(s), Oral, every evening omega-3 polyunsaturated fatty acids (Fish Oil oral capsule) three times a day pravastatin (pravastatin 40 mg oral tablet) 1.5 Tablet(s), Oral, once a day (at bedtime) New Dose Routed to [place] [address] [place], [place] [id number] predniSONE (predniSONE 10 mg oral tablet) See Instructions 1 tab(s) PRN with episode of asthma triamcinolone topical (triamcinolone 0.1% topical cream) See Instructions 1 keiry Topical prn Stop Taking the Following Medications: Medication list as of 09-25-13 09:04 Attention: If you have any medications at home that are not on this list, DO NOT take them until youcontact your provider for clarification. Give a copy of your medication list to your primary care provider. Update your medication list any time medications or doses are changed and carry your medication list at all times in case of emergency. Additional Information: Source: [facility] POWERCHART Document Id: [id number] TH EVALUATOR Miscellaneous - Jonathon Parker APRN, C.N.P. - 09/25/2013 9:04 AM HEALTH EVALUATOR Ambulatory Depart Summary [address] [address] Visit Information Name: DEDE JOSI [facility] Number: [id number] Visit Date: 09/25/2013 09:04:20 Attending Provider: JONATHON SKINNER CNP Primary Care Provider: JONATHON SKINNER CNP AINSLEY AGUAYOBETH has been given the following list of [...] needed for Shortness of breath / Wheezing Routed to [address] [id number] aspirin (aspirin 81 mg oral enteric coated tablet) 1 Tablet(s), Oral, once a day calcium-vitamin D (Calcium 600+D) 1 Tablet(s), Oral, three times a day chlorthalidone (chlorthalidone 25 mg oral tablet) 1 Tablet(s), Oral, once a day Routed to [address] [id number] fluticasone nasal (Flonase 0.05 mg/inh nasal spray) 1 Gaines(s), Nostrils(Both), once a day Routed [address] [id number] ibuprofen (ibuprofen 200 mg oral tablet) levothyroxine (Synthroid 75 mcg (0.075 mg) oral tablet) 1 Tablet(s), Oral, once a day Routed to [address] [id number] lisinopril (lisinopril 30 mg oral tablet) 1 Tablet(s), Oral, once a day Routed to [address] [id number] loratadine (Claritin 10 mg oral tablet) 1 Tablet(s), Oral, once a day as needed for Allergy symptoms montelukast (Singulair 10 mg oral tablet) 1 Tablet(s), Oral, every evening omega-3 polyunsaturated fatty acids (Fish Oil oral capsule) three times a day pravastatin (pravastatin 40 mg oral tablet) 1.5 Tablet(s), Oral, once a day (at bedtime) New Dose Routed to [place] [address] [place], [place] [phone] predniSONE (predniSONE 10 mg oral tablet) See Instructions 1 tab(s) PRN with episode of asthma triamcinolone topical (triamcinolone 0.1% topical cream) See Instructions 1 keiry Topical prn Stop Taking the Following Medications: Medication list as of 09-25-13 09:04 Attention: If you have any medications at home that are not on this list, DO NOT take them until youcontact your provider for clarification. Give a copy of your medication list to your primary care provider. Update your medication list any time medications or doses are changed and carry your medication list at all times in case of emergency. Additional Information: Source: [facility] POWERCHART Document Id: [id number] TH EVALUATOR Miscellaneous - Stephen Rubin, L.P.N. - 09/25/2013 9:00 AM CST PHQ-9 PHQ-9 Entered On: 09/25/2013 11:01 HEALTH EVALUATOR Performed On: 09/25/2013 9:00 HEALTH EVALUATOR by STEPHEN RUBIN PHQ-9 Little interest or pleasure in doing [...] with others : Not difficult at all STEHPEN RUBIN - 09/25/2013 11:01 HEALTH EVALUATOR Source: [facility] POWERCHART Document Id: [id number] HEALTH EVALUATOR!13 TH EVALUATOR Miscellaneous - Jonathon Parker APRN, C.NAntwanPAntwan - 09/25/2013 8:40 AM HEALTH EVALUATOR Reminder Msg Document Contains Addenda Addendum by STEPHEN RUBIN LPN on 04 January 2014 14:19:15 CDT completed. From: JONATHON SKINNER PRIMARY SPECIAL EDUCATOR To: DAVID Pascual [facility] Medicine Nurse; Sent: 09/25/2013 08:40:11 HEALTH EVALUATOR Show up: 12/19/2013 08:38:00 CDT Subject: Reminder Msg Please Remember to: Please call patient and set up Mammogram in [facility]. (last one was 20 January 2014, so after this date) PATIENT: ( ) Call Patient ( ) Ask Patient to ( ) ( ) Call Relative ( ) Schedule Patient ( ) ( ) Call for Coordinate Measuring Machine Operator ( ) Follow up on Results ( ) Other: PROVIDER: ( ) Call Physician ( ) Call Pharmacist ( ) Call Lab ( ) Other: Special Instructions: Comments: Source: [facility] [employer] Document Id: [id number] Electronically signed by Nikos [facility] Flight Control Tower Operator [id number] at 03/06/2017 8:38 PM CDT Miscellaneous - Stehpen Rubin, L.P.N. - 09/25/2013 8:26 AM CST Adult Social Media Coordinator Intake/History Adult Social Media Coordinator Intake/History Entered On: 09/25/2013 8:28 HEALTH EVALUATOR Performed On: 09/25/2013 8:26 HEALTH EVALUATOR by STEPHEN RUBIN Intake Chief Complaint : med recheck and wants to schedule routine mammogram Temperature Core : 36.7 DegC(Converted to: 98.1 DegF) Peripheral Pulse Rate : 84 /min Respiratory Rate : 16 /min Systolic Blood Pressure : 130 mmHg Diastolic Blood Pressure : 78 mmHg NIBP Mean : 95 mmHg BP Location : Left upper extremity Blood Pressure Cuff Size : Large Height : 162.9 cm(Converted to: 5 ft 4 inch(es), 64.13 inch(es)) Actual Weight : 91.9 kg(Converted to: 202 lb 10 oz) Weight Source : Standing scale Dosing Weight Clinic : 91.9 kg Clinic BSA : 2.04 Body Mass Index : 34.63 kg/m2 STEPHEN RUBIN - 09/25/2013 8:26 HEALTH EVALUATOR General Info Information Given By : Patient Languages : Mexican STEPHEN RUBIN 09/25/2013 8:26 HEALTH EVALUATOR Subjective Pain Symptoms : No STEPHEN RUBIN - 09/25/2013 8:26 HEALTH EVALUATOR Dependent Habits Tobacco Use/Currently Using : No Tobacco Use/Last 12 months : No Tobacco Use/Advised to Quit : No Exposure to Tobacco Smoke : Other: Never Smoked Smoking Status : Never smoker STEPHEN RUBIN 09/25/2013 8:26 HEALTH EVALUATOR Caffeine Use Grid Caffeine Use : Current Type : Coffee, Soft drinks Frequency : Daily Amount : 1 cup & 2 cans STEPHEN RUBIN - 09/25/2013 8:26 HEALTH EVALUATOR Recreational Drug Use Grid Drug Use : None STEPHEN RUBIN - 09/25/2013 8:26 HEALTH EVALUATOR Source: [employer] Document Id: [id number] HEALTH EVALUATOR!37 TH EVALUATOR Miscellaneous - Stephen Rubin L.P.N. - 09/25/2013 8:26 AM CST Health Assessment Health Assessment Entered On: 09/25/2013 8:30 HEALTH EVALUATOR Performed On: 09/25/2013 8:26 HEALTH EVALUATOR by STEPHEN RUBIN Health Assessment Complete Health Assessment Complete or Modified : Annual Health Assessment Annual Health Assessment Completed : Yes STEPHEN RUBIN - 09/25/2013 8:26 HEALTH EVALUATOR Nutrition Nutrition Risk Factors by History Adult : None STEPHEN RUBIN 09/25/2013 8:26 HEALTH EVALUATOR Functional Current Daily Living Assistance : None STEPHEN RUBIN 09/25/2013 8:26 HEALTH EVALUATOR Dependent Habits Tobacco Use/Currently Using : No Tobacco Use/Last 12 months : No Tobacco Use/Advised to Quit : No Exposure to Tobacco Smoke : Other: Never Smoked Smoking Status : Never smoker Alcohol Use : Yes STEPHEN RUBIN - 09/25/2013 8:26 HEALTH EVALUATOR Caffeine Use Grid Caffeine Use : Current Type : Soft drinks Frequency : Daily Amount : 1 can diet soda STEPHEN RUBIN 09/25/2013 8:26 HEALTH EVALUATOR Recreational Drug Use Grid Drug Use : None STEPHEN RUBIN 09/25/2013 8:26 HEALTH EVALUATOR AUDIT Tool How Often Do You Have A Drink : 2 to 4 times a month How Many Drinks in a Day When Drinking : 1 or 2 Six or More Drinks On One Occassion : Never Audit Phase 1 Score : 2 STEPHEN RUBIN 09/25/2013 8:26 HEALTH EVALUATOR Psychosocial Domestic Abuse Concerns : None Marital Status : Years of Marriage : 3 Number of Children : 1 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 STEPHEN RUBIN 09/25/2013 8:26 HEALTH EVALUATOR Advance Directive Advanced Directives : No STEPHEN RUBIN 09/25/2013 8:26 HEALTH EVALUATOR Educ Needs Learning Style Preference Adult Grid Patient : Demonstration, Printed materials, Verbal explanation, Video/Educational TV Family : Demonstration, Printed materials, Verbal explanation, Video/Educational TV STEPHEN RUBIN 09/25/2013 8:26 HEALTH EVALUATOR Source: [facility] [employer] Document Id: [id number] HEALTH EVALUATOR!42 TH EVALUATOR documented in this encounter Plan of Treatment Not on filedocumented as of this encounter Procedures Procedure Name Priority Date/Time Associated Comments Diagnosis LIPID PANEL, S Routine 09/25/2013 9:39 Results fo r this AM HEALTH EVALUATOR procedure are i n the results section. THYROID FUNCTION Routine 09/25/2013 9:39 Results for this CASCADE, S AM HEALTH EVALUATOR procedure are i n the results section. ASPARTATE Routine 09/25/2013 9:39 Results for this AMINOTRANSFERASE (AST), AM HEALTH EVALUATOR proc edure are in S/P the results section. BASIC METABOLIC PANEL, Routine 09/25/2013 9:39 Re sults for this S/P AM HEALTH EVALUATOR procedure are i n the results section. documented in this encounter Results Thyroid Function [place] (09/25/2013 9:39 AM HEALTH EVALUATOR) athologist Signature TSH, Sensitive 1.0 0.3 - 5.0 POWERCHART MIUL Comment: Test Performed by: [place] [address] Pharmacy Clinical Coordinator: Michael marquis III, M.D. Specimen (Source) Anatomical Collection Method Collection Time Re ceived Time Location / / Volume Laterality Blood 09/25/2013 9:39 AM HEALTH EVALUATOR Jonathon Parker APRN, C.N.P., D.N.P. LAB BLOOD ADD-ON Performing Organization Address City/State/ZIP Code Phon e Number POWERCHART (ABNORMAL) BMP (Basic Metabolic Panel) (09/25/2013 9:39 AM HEALTH EVALUATOR) athologist Signature BUN (Blood Urea 16 6 - 20 POWERCHART Nitrogen), S MGDL Chloride, S 103 100 - 108 POWERCHART [place] CO2 Total 29 22 - 30 POWERCHART [place] Creatinine 0.7 0.7 - 1.2 POWERCHART MGDL Glucose, 104 (H) 70 - 99 POWERCHART Fasting, S MGDL Calcium, Total, 10.0 8.5 - 10.5 POWERCHART S MGDL Sodium, S 144 135 - 145 POWERCHART [place] Potassium, S 3.8 3.5 - 4.8 POWERCHART [place] HXeGFR (MDRD) >60 MLMIN POWERCHART eGFR >60 MLMIN POWERCHART Black/ Specimen (Source) Anatomical Collection Method Collection Time Re ceived Time Location / / Volume Laterality Blood 09/25/2013 9:39 AM HEALTH EVALUATOR Jonathon Parker APRN, C.N.P., D.N.P. LAB BLOOD ADD-ON Performing Organization Address City/State/ZIP Code Phon e Number POWERCHART AST (Aspartate Aminotransferase) (09/25/2013 9:39 AM HEALTH EVALUATOR) Patholo gist Method Time Signature Aspartate 18 8 - 43 POWERCHART Aminotransferase UNITL (AST), S Specimen (Source) Anatomical Collection Method Collection Time Re ceived Time Location / / Volume Laterality Blood 09/25/2013 9:39 AM HEALTH EVALUATOR Jonathon Parker APRN, C.N.P., D.N.P. LAB BLOOD ADD-ON Performing Organization Address City/State/ZIP Code Phon e Number POWERCHART (ABNORMAL) Lipid Panel (09/25/2013 9:39 AM HEALTH EVALUATOR) [facility] Method Time Signature Cholesterol, Total 178 0 - 200 POWERCHART MGDL HX HDL 42.0 40.0 - POWERCHART 60.0 MGDL Triglycerides 172 (H) 0 - 150 POWERCHART MGDL Calculated LDL 102 (H) 0 - 100 POWERCHART MGDL Specimen (Source) Anatomical Collection Method Collection Time Re ceived Time Location / / Volume Laterality Blood 09/25/2013 9:39 AM HEALTH EVALUATOR Jonathon Parker APRN, C.N.P., D.N.P. LAB BLOOD ADD-ON Performing Organization Address City/State/ZIP Code Phon e Number POWERCHART documented in this encounter Visit Diagnoses Not on filedocumented in this encounter
--- OUTSIDE RECORDS SUMMARY | 2022-07-10 08:23 | XMS_ITS | Encounter Summary ---
:1940 Author Organization [facility] Address [address] [place] [address] Care Team Providers Name Role Phone Unavailable Primary Care Provider Unavailable Encounter Details Date Type Department Care Team Description 09/16/2014 Hospital Encounter HX [facility] Tino Horn P.A.-C. [address] [place] [address] (Wo rk) Social History Tobacco Use Types [...] Sign Reading Time Taken Comments Blood Pressure 120/78 09/16/2014 9:15 AM MONOGRAM MAKER Pulse 78 09/16/2014 9:15 AM MONOGRAM MAKER Temperature - - Respiratory Rate 16 09/16/2014 9:15 AM MONOGRAM MAKER Oxygen Saturation - - Inhaled Oxygen Concentration - - Weight 93.6 kg (206 lb 5.6 oz) 09/16/2014 9:15 AM MONOGRAM MAKER Height 162 cm (5' 3.78) 09/16/2014 9:15 AM MONOGRAM MAKER Body Mass Index 35.66 09/16/2014 9:15 AM MONOGRAM MAKER documented in this encounter Medications at Time [...] documented as of this encounter H&P Notes Apolonia Horn P.A.-C. - 09/16/2014 8:49 AM CST [id number] CHIEF COMPLAINT/REASON FOR VISIT History and physical exam. HISTORY OF PRESENT ILLNESS Ainsley is a very pleasant 73-year-old female, who comes in today for history and physical exam. In general, she has been doing okay. Her biggest problem has been complaints of some knee pain. She just recently had an MRI and is following with Dr. Nickerson. She likely is going to need a meniscectomy and she is going to follow up with him in the near future for this. She has a history of hypertension that is well controlled, hyperlipidemia that has been well controlled as well as hypothyroidism. These problems have all been well controlled with medication. I reviewed her family history today. SOCIAL HISTORY She does not drink, smoke or do drugs. Her diet is quite good. She tries to be active but her knee pain has been limiting her. SYSTEMS REVIEW The pertinent positives include her knee pain. The rest of the review of systems is negative. PHYSICAL EXAMINATION VITAL SIGNS: Noted in EMR. GENERAL: She appears in no acute distress. ENT: TMs are not erythematous. Throat no erythema. NECK: No lymphadenopathy. No thyroid masses. HEART: Regular rate and rhythm. No murmurs. LUNGS: Clear to auscultation. ABDOMEN: Soft, and nontender to palpation. BREASTS: Breasts are symmetrical. No masses appreciated. No axillary lymphadenopathy noted. VASCULAR EXAMINATION: Radial pulses palpable and symmetrical. Carotid pulses are palpable. No bruitsauscultated. LOWER EXTREMITIES: Without edema. IMPRESSION/REPORT/PLAN 1. Health maintenance. We will set her up for her mammogram and her DEXA scan. These will need to bedone in the spring of the year. I stressed the importance of her working on her active lifestyle. She says that she recently had to move many boxes which may have been what irritated her knee but I stressed the importance of her continuing to be active as much as possible. 2. Knee pain. She will follow up with Dr. Nickerson for this. She is likely going to need surgery for her knee. She will follow up as scheduled with Dr. Nickerson. She will need a preoperative history and physical prior to her surgery. We could consider this her preoperative assuming she has her surgery within the next month. She would be [place] [employer] Class 2 for surgery. 3. Hypothyroidism. Her TSH was checked. This is well controlled. I refilled her Synthroid for a year. 4. Hypertension, her blood pressure is well controlled. I renewed her medication for a year. 5. Hyperlipidemia. She will continue on the Pravachol. She is tolerating this well without any problems. Apolonia Horn PA-C/tello Electronically Signed By: APOLONIA HORN PA-C On: 09/16/2014 01:36 PM Source: [facility] MHSDOLBEYNONRADSYS Document Id: [id number] GRAM MAKER documented in this encounter Miscellaneous Notes Miscellaneous - Joshua Rubin L.P.N. - 09/16/2014 9:15 AM CST Adult Network Security Architect Intake/History Adult Network Security Architect Intake/History Entered On: 09/16/2014 9:17 MONOGRAM MAKER Performed On: 09/16/2014 9:15 MONOGRAM MAKER by JOSHUA RUBIN LPN Intake Chief Complaint : Annual Temperature Core : 36.6 DegC(Converted to: 97.9 DegF) Peripheral Pulse Rate : 78 /min Respiratory Rate : 16 /min Systolic Blood Pressure : 120 mmHg Diastolic Blood Pressure : 78 mmHg NIBP Mean : 92 mmHg BP Location : Left upper extremity Blood Pressure Cuff Size : Large Height : 162.0 cm(Converted to: 5 ft 4 inch(es), 64 inch(es)) Actual Weight : 93.6 kg(Converted to: 206 lb 6 oz) Weight Source : Standing scale Dosing Weight Clinic : 93.6 kg Clinic BSA : 2.05 Body Mass Index : 35.67 kg/m2 JOSHUA RUBIN LPN - 09/16/2014 9:15 MONOGRAM MAKER General Info Information Given By : Patient Preferred Communication Mode : Verbal Languages : [place] Is Patient Female and 13-50 no hysterectomy : No JOSHUA RUBIN LPN - 09/16/2014 9:15 MONOGRAM MAKER Subjective Pain Symptoms : Yes JOSHUA RUBIN LPN - 09/16/2014 9:15 MONOGRAM MAKER Pain Pain Assessment Grid Pain 1 Pain 2 Location : Knee Laterality : Left Intensity : 9 Duration : months JOSHUA RUBIN LPN - 09/16/2014 9:15 MONOGRAM MAKER JOSHUA RUBIN LPN - 09/16/2014 9:15 MONOGRAM MAKER Dependent Habits Tobacco Use/Currently Using : No Tobacco Use/Last 12 months : No Tobacco Use/Advised to Quit : No Exposure to Tobacco Smoke : Other: Never Smoked Smoking Status : Never smoker JOSHUA RUBIN LPN - 09/16/2014 9:15 MONOGRAM MAKER Caffeine Use Grid Caffeine Use : Current Type : Soft drinks Frequency : Daily Amount : 1 can diet soda JOSHUA RUBIN LPN - 09/16/2014 9:15 MONOGRAM MAKER Recreational Drug Use Grid Drug Use : None JOSHUA RUBIN LPN - 09/16/2014 9:15 MONOGRAM MAKER ID Screen Drug Resistant Organism : No Travel Within Last 21 Days : No JOSHUA RUBIN LPN - 09/16/2014 9:15 MONOGRAM MAKER Source: [facility] POWERCHART Document Id: [id number] MONOGRAM MAKER!50 GRAM MAKER Miscellaneous - Joshua Rubin L.P.NAntwan - 09/16/2014 9:15 AM CST Health Assessment Health Assessment Entered On: 09/16/2014 9:18 MONOGRAM MAKER Performed On: 09/16/2014 9:15 MONOGRAM MAKER by JOSHUA RUBIN LPN Health Assessment Complete Health Assessment Complete or Modified : Annual Health Assessment Annual Health Assessment Completed : Yes JOSHUA RUBIN LPN - 09/16/2014 9:15 MONOGRAM MAKER Nutrition Nutrition Risk Factors by History Adult : None JOSHUA RUBIN LPN - 09/16/2014 9:15 MONOGRAM MAKER Functional Current Daily Living Assistance : None Mobility Assistance Prior to Admission : Independent JOSHUA RUBIN LPN - 09/16/2014 9:15 MONOGRAM MAKER Dependent Habits Tobacco Use/Currently Using : No Tobacco Use/Last 12 months : No Tobacco Use/Advised to Quit : No Exposure to Tobacco Smoke : Other: Never Smoked Smoking Status : Never smoker Alcohol Use : Yes JOSHUA RUBIN LPN - 09/16/2014 9:15 MONOGRAM MAKER Caffeine Use Grid Caffeine Use : Current Type : Soft drinks Frequency : Daily Amount : 1 can diet soda Last Use : 09/15/14 JOSHUA RUBIN LPN - 09/16/2014 9:15 MONOGRAM MAKER Recreational Drug Use Grid Drug Use : None JOSUHA RUBIN LPN - 09/16/2014 9:15 MONOGRAM MAKER AUDIT Tool How Often Do You Have A Drink : 2 to 4 times a month How Many Drinks in a Day When Drinking : 1 or 2 Six or More Drinks On One Occassion : Never Audit Phase 1 Score : 2 JOSHUA RUBIN LPN - 09/16/2014 9:15 MONOGRAM MAKER Psychosocial Domestic Abuse Concerns : None Marital Status : Number of Children : 1 Employment Status : Retired Education : College Graduate Jain Preference : Unknown JOSHUA RUBIN LPN - 09/16/2014 9:15 MONOGRAM MAKER Advance Directive Advanced Directives : No Advance Directive Additional Information : No JOSHUA RUBIN LPN - 09/16/2014 9:15 MONOGRAM MAKER Educ Needs Learning Style Preference Adult Grid Patient : Printed materials, Verbal explanation Family : Verbal explanation, Printed materials JOSHUA RUBIN LPN - 09/16/2014 9:15 MONOGRAM MAKER Source: [employer] Document Id: [id number] MONOGRAM MAKER!45 GRAM MAKER Miscellaneous - Joshua Rubin L.P.N. - 09/16/2014 9:15 AM CST PHQ-9 PHQ-9 Entered On: 09/16/2014 9:18 MONOGRAM MAKER Performed On: 09/16/2014 9:15 MONOGRAM MAKER by JOSHUA RUBIN LPN PHQ-9 Little interest or pleasure in doing things : Not at all Feeling down, depressed, or hopeless : Not at all Trouble falling or staying asleep, or sleeping too much : Several days Feeling tired or having little energy : [...] : Somewhat difficult JOSHUA RUBIN LPN - 09/16/2014 9:15 MONOGRAM MAKER Source: [employer] Document Id: [id number] MONOGRAM MAKER!13 GRAM MAKER documented in this encounter Plan of Treatment Not on filedocumented as of this encounter Visit Diagnoses Not on filedocumented in this encounter Additional Health Concerns Assessment Noted Time PHQ-9 Depression Total Score: 1 09/16/2014 9:15 AM MONOGRAM MAKER documented as of this encounter
--- OUTSIDE RECORDS SUMMARY | 2022-07-10 08:23 | XMS_ITS | Encounter Summary ---
:1940 Author Organization [facility] Address [address] [place] [address] Care Team Providers Name Role Phone Unavailable Primary Care Provider Unavailable Encounter Details Date Type Department Care Team Description 09/12/2012 Hospital Encounter HX [facility] Naomi Parker, MISA, C.N.P., D. N.P. [address] [place], [place] [address] (Wo rk) Social History [...] Sign Reading Time Taken Comments Blood Pressure 130/84 09/12/2012 8:37 AM METHODS TIME ANALYST Pulse 68 09/12/2012 8:37 AM METHODS TIME ANALYST Temperature - - Respiratory Rate 16 09/12/2012 8:37 AM METHODS TIME ANALYST Oxygen Saturation - - Inhaled Oxygen Concentration - - Weight 88.5 kg (195 lb 1.7 oz) 09/12/2012 8:37 AM METHODS TIME ANALYST Height 162.2 cm (5' 3.86) 09/12/2012 8:37 AM METHODS TIME ANALYST Body Mass Index 33.64 09/12/2012 8:37 AM METHODS TIME ANALYST documented in this encounter Medications at Time [...] H&P Notes Jonathon Parker APRN, C.N.P. - 09/12/2012 8:28 AM CST [id number] CHIEF COMPLAINT/REASON FOR VISIT Annual exam HISTORY OF PRESENT ILLNESS The patient is a 71-year-old female who presents to the clinic for her annual exam. Patient has a history of obesity and is currently following the Weight Watchers diet. Patient is also exercising fivetimes a week by using treadmill and weights. Patient's mammogram is due in October. However, she will be in [place] at this time. Patient is debating whether or not to have her mammogram done in [place] or when she returns in January. Patient has had her vision checked within the last year. Patient was recently to the dentist. Patient has a history of hypertension and denies dizziness, palpitations, chest pain or lightheadedness. She currently takes lisinopril and chlorthalidone. She also has a history of hypothyroidism and denies any signs and symptoms of hypothyroidism. She also has a history of asthma and is followed by [facility] tip scourer. She also has a history of hyperlipidemia and denies muscle aches. Patient does have a history of allergic rhinitis and uses Claritin as needed and Flonase as needed. She denies fever, chills, nausea, vomiting, chest pain, or shortness of breath. CURRENT MEDICATIONS See depart summary. ALLERGIES See EMR SYSTEMS REVIEW Pertinent positives as noted in HPI, plus redness under her breast occasionally and right foot pain,otherwise negative. PAST MEDICAL/SURGICAL HISTORY See EMR SOCIAL HISTORY The patient is and has 1 son. She is retired. Please see health assessment PowerForm completed today for complete details. FAMILY HISTORY Unchanged and see EMR. VITAL SIGNS See EMR PHYSICAL EXAMINATION GENERAL: Well-nourished female in no acute distress. Grooming and hygiene appropriate. SKIN: Warm, dry and pink. No rashes, lesions or bruising. HEAD: Normocephalic. EYES: Conjunctivae clear. Sclerae white. Pupils equal, round, reactive to light. Peripheral vision intact. EOMs intact. Optic discs round with clear margins. No lesions or hemorrhages. Red reflex present bilaterally. ENT: Ear canals are clear bilaterally. TMs intact, loco shiny bilaterally with light reflex present.Nasal mucosa pink and moist. Posterior pharynx moist and pink. No lesions or exudate. Teeth in good repair. LYMPH NODES: Neck supple, trachea midline. No JVD. No lymphadenopathy. THYROID: No thyromegaly. No tenderness to palpation. BREASTS: Dense. No galactorrhea. Breast symmetrical. No lesions, inflammation or dimpling. PERIPHERAL VESSELS: Radial and dorsalis pedis +2 equal bilaterally. Capillary refill less than 3 seconds. HEART: Regular rate and rhythm. No murmurs. LUNGS: Clear to auscultation. No wheezes. ABDOMEN: Soft, flat and symmetrical. Bowel sounds present x4 quadrants. No bruits. No organomegaly. No masses felt or tenderness with palpation. GENITALIA: Deferred. SPINE: Back: No CVA tenderness. Straight and erect posture. JOINTS: Full range of motion in all joints without limitations. EXTREMITIES: Warm and dry without peripheral edema. Muscle strength equal bilaterally. Nontender. GAIT: Steady and even coordinated movements. MENTAL: Alert and oriented to person, place and time. NEURO: Patellar and ankle reflexes +2. Strength is equal in both upper and lower extremities. IMPRESSION/REPORT/PLAN 1. Satisfactory health maintenance exam. Patient was encouraged to exercise 30 minutes most days of the week. Patient was also encouraged to continue to follow a low-fat diet. Patient was reminded to drink 6 to 8 glasses of water a day. Patient's immunizations are current. Patient will schedule her mammogram in [place] in October, otherwise she will complete it when she returns. 2. Hypertension. We will obtain a BMP and notify her of the results. Patient's blood pressure is 130/84. Patient would prefer tighter control. We will increase her lisinopril to 30 mg daily. Patient will return in 1 week for a nurse-only blood pressure recheck. If she notices any problems at home, shewill notify me. 3. Hypothyroidism. We will obtain a TSH and notify her of the results. She will continue her currentdose. 4. Asthma controlled at this time. Her asthma action plan was updated and scanned into EMR. 5. Hyperlipidemia. We will obtain a lipid panel and AST and notify her of the results. She will continue her current dose at this time. 6. Allergic rhinitis. She will continue to use Claritin and Flonase as needed. 7. Intertrigo. Patient was given a prescription for Nystatin to apply under her breasts when red. She can use this as needed. Patient will follow up annually and if needed. Patient verbalizes understanding and agrees with plan of care. Jonathon Skinner CNP/sofy Electronically Signed By: JONATHON SKINNER CNP On: 09/15/2012 10:06 AM Source: [facility] MHSDOLBEYNONRADSYS Document Id: [id number] ODS TIME ANALYST documented in this encounter Miscellaneous Notes Miscellaneous - Alexia Nj, RAntwanNAntwan - 04/27/2013 9:54 AM CDT Medication Refill Msg Document Contains Addenda Addendum by JONATHON SKINNER CNP on 27 April 2013 12:44:46 CDT Triamcinolone cream and nystatin cream given. From: ALEXIA [place] To: JONATHON SKINNER CNP; Sent: 04/27/2013 09:54:50 CDT Subject: Medication Refill Msg Caller is: ( ) Patient ( ) Mother ( ) Father ( ) Spouse ( ) Daughter ( ) Son ( ) Pharmacy ( ) Other: Provider: [facility]acy: [facility] Name of Medications Needing Refill:triamcinolone Last Refill Date: Additional Information:had been using the powder and doesn't like it - can you fill the cream. Listed in doc by history. 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 Nurse Midwife [id number] at 03/10/2017 12:45 AM CDT Miscellaneous - Jonathon Parker APRN, C.N.P. - 09/12/2012 12:10 PM METHODS TIME ANALYST Quality Measures Quality Measures Entered On: 09/12/2012 12:11 METHODS TIME ANALYST Performed On: 09/12/2012 12:10 METHODS TIME ANALYST by JONATHON SKINNER CNP Asthma Asthma Control Test (ACT) Score : 23 ED visits past yr for asthma w/o hospital stay : 0 Hospitalizations/Overnight Stays in Past yr for Asthma : 0 Asthma Action Plan Provided/Reviewed : Reviewed with the patient Asthma Action Plan Copy : Scanned into EMR JONATHON SKINNER CNP - 09/12/2012 12:10 METHODS TIME ANALYST Source: [facility] OnepagerCHART Document Id: [id number] ODS TIME ANALYST Miscellaneous - Jonathon Parker APRN C.N.P. - 09/12/2012 12:03 PM METHODS TIME ANALYST Ambulatory Patient Summary [facility] [address] [place] [address] Visit Information Name: AINSLEY AGUAYO [facility] Number: [id number] Current Date: 09/12/2012 12:02:59 Physicians Attending Provider: JONATHON SKINNER CNP Primary Care Provider: JONATHON SKINNER CNP Your Medications Here is a list of your medications. It is important to take your medications as directed. Use a pillbox or chart to help remind you to take your medications. Please let your doctor or nurse know if you have problems taking your medications. Medication/Strength Dose Route Frequency Indications/Special Instructions/Comments pravastatin (pravastatin 40 mg oral tablet) 60 mg Oral once a day (at bedtime) New Dose nystatin topical (nystatin 100,000 units/g topical powder) 1 keiry Topical three times a day for 30 Days albuterol (albuterol CFC free 90 mcg/inh inhalation aerosol with adapter) 2 puff(s) Inhalation every4 hours as needed for Shortness of breath / Wheezing chlorthalidone (chlorthalidone 25 mg oral tablet) 25 mg Oral once a day fluticasone nasal (Flonase 0.05 mg/inh nasal spray) 1 spray(s) Nostrils(Both) once a day levothyroxine (Synthroid 75 mcg (0.075 mg) oral tablet) 75 mcg Oral once a day lisinopril (lisinopril 30 mg oral tablet) 30 mg Oral once a day calcium-vitamin D (Calcium 600+D) 1 tab(s) Oral three times a day aspirin (aspirin 81 mg oral enteric coated tablet) 81 mg Oral once a day loratadine (Claritin 10 mg oral tablet) 1 tab(s) Oral once a day as needed for Allergy symptoms omega-3 polyunsaturated fatty acids (Fish Oil oral capsule) three times a day ibuprofen (ibuprofen 200 mg oral tablet) Attention: If you have any medications at home that are not on this list, DO NOT take them until youcontact your provider for clarification. Your Allergies & Intolerances Substance Reaction Symptoms Category Comments prochlorperazine unknown Drug Dust Mite Drug Cats unknown Other Your Problem List Problem Status Onset Comments Hypertension Essential, Benign Active Hypothyroidism (acquired) Active Fibrocystic breast changes Active Asthma, Instrinsic, unspecified Active Malignant neoplasm of skin of cheek, external Active Hyperlipidemia Active Asthma with acute exacerbation Active Pain, Knee Active Pain, Ankle/foot Active Your Upcoming Appointments Date Time Location Reason Provider 09/18/2012 08:15 [facility] BP Recheck Your Goals/Additional instructions: Source: [facility] POWERCHART Document Id: [id number] ODS TIME ANALYST Miscellaneous - Jonathon Parker APRN, C.N.P. - 09/12/2012 12:02 PM METHODS TIME ANALYST Ambulatory Depart Summary [address] [address] Visit Information Name: AINSLEY AGUAYO [facility] Number: [id number] Visit Date: 09/12/2012 12:02:58 Attending Provider: JONATHON SKINNER CNP Primary Care Provider: JONATHON SKINNER CNP AINSLEY AGUAYOZABETH has been given the following list of medications: Your Medications It is important to take your medications as directed. Use a pill box or chart to help remind you to take your medications. Please let your doctor or nurse know if you have problems taking your medications. Medication/Strength Dose Route Frequency Indications/Special Instructions/Comments pravastatin (pravastatin 40 mg oral tablet) 60 mg Oral once a day (at bedtime) New Dose nystatin topical (nystatin 100,000 units/g topical powder) 1 keiry Topical three times a day for 30 Days albuterol (albuterol CFC free 90 mcg/inh inhalation aerosol with adapter) 2 puff(s) Inhalation every4 hours as needed for Shortness of breath / Wheezing chlorthalidone (chlorthalidone 25 mg oral tablet) 25 mg Oral once a day fluticasone nasal (Flonase 0.05 mg/inh nasal spray) 1 spray(s) Nostrils(Both) once a day levothyroxine (Synthroid 75 mcg (0.075 mg) oral tablet) 75 mcg Oral once a day lisinopril (lisinopril 30 mg oral tablet) 30 mg Oral once a day calcium-vitamin D (Calcium 600+D) 1 tab(s) Oral three times a day aspirin (aspirin 81 mg oral enteric coated tablet) 81 mg Oral once a day loratadine (Claritin 10 mg oral tablet) 1 tab(s) Oral once a day as needed for Allergy symptoms omega-3 polyunsaturated fatty acids (Fish Oil oral capsule) three times a day ibuprofen (ibuprofen 200 mg oral tablet) Attention: If you have any medications at home that are not on this list, DO NOT take them until youcontact your provider for clarification. Additional Information: Source: [facility] POWERCHART Document Id: [id number] ODS TIME ANALYST Miscellaneous - Conversion, Historical Provider Ser - 09/12/2012 8:43 AM METHODS TIME ANALYST Health Assessment Health Assessment Entered On: 09/12/2012 8:44 METHODS TIME ANALYST Performed On: 09/12/2012 8:43 METHODS TIME ANALYST by TITA CALDWELL Health Assessment Complete Health Assessment Complete or Modified : Modified Health Assessment TITA CALDWELL - 09/12/2012 8:43 METHODS TIME ANALYST Nutrition Nutrition Risk Factors by History Adult : None TITA CALDWELL - 09/12/2012 8:43 METHODS TIME ANALYST Functional Living Situation : Home independently Current Daily Living Assistance : None TITA CALDWELL - 09/12/2012 8:43 METHODS TIME ANALYST Dependent Habits Tobacco Use/Currently Using : No Exposure to Tobacco Smoke : Other: Never Smoked Smoking Status : Never smoker Alcohol Use : Yes TITA CALDWELL - 09/12/2012 8:43 METHODS TIME ANALYST Caffeine Use Grid Caffeine Use : Current Type : Coffee, Soft drinks Frequency : Daily Amount : 1 cup & 2 cans TITA CALDWELL - 09/12/2012 8:43 METHODS TIME ANALYST Recreational Drug Use Grid Drug Use : None HUAHSANAYLASACHA Lindsay - 09/12/2012 8:43 METHODS TIME ANALYST AUDIT Tool How Often Do You Have A Drink : Monthly or less How Many Drinks in a Day When Drinking : 1 or 2 Six or More Drinks On One Occassion : Never Audit Phase 1 Score : 1 AYLA CALDWELLSACHA Lindsay 09/12/2012 8:43 METHODS TIME ANALYST Psychosocial Domestic Abuse Concerns : None Number of Children : 1 son 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 TITA CALDWELL 09/12/2012 8:43 METHODS TIME ANALYST Advance Directive Advanced Directives : No TITA CALDWELL 09/12/2012 8:43 METHODS TIME ANALYST Educ Needs Learning Style Preference Adult Grid Patient : None Family : None TITA CALDWELL 09/12/2012 8:43 METHODS TIME ANALYST [facility] Document Id: [id number] Miscellaneous - Conversion, Historical Provider Ser - 09/12/2012 8:37 AM METHODS TIME ANALYST Adult Blue Crabber Intake/History Adult Blue Crabber Intake/History Entered On: 09/12/2012 8:42 METHODS TIME ANALYST Performed On: 09/12/2012 8:37 METHODS TIME ANALYST by TITA CALDWELL Intake Chief Complaint : annual Temperature Core : 36.0C(Converted to: 96.8DegF) (LOW) Peripheral Pulse Rate : 68/min Respiratory Rate : 16/min Systolic Blood Pressure : 130mmHg Diastolic Blood Pressure : 84mmHg NIBP Mean : 99mmHg BP Location : Right upper extremity Blood Pressure Cuff Size : Regular Height : 162.2cm(Converted to: 5ft 4inch(es), 63.86inch(es)) Actual Weight : 88.5kg(Converted to: 195lb 2oz) Weight Source : Standing scale Dosing Weight Clinic : 88.50kg Clinic BSA : 2.00 Body Mass Index : 33.64kg/m2 JAVI AYLASACHA Lindsay 09/12/2012 8:37 METHODS TIME ANALYST Subjective Pain Symptoms : No TITA CALDWELL 09/12/2012 8:37 METHODS TIME ANALYST Dependent Habits Tobacco Use/Currently Using : No Exposure to Tobacco Smoke : Other: Never Smoked Smoking Status : Never smoker TITA CALDWELL - 09/12/2012 8:37 METHODS TIME ANALYST Caffeine Use Grid Caffeine Use : Current Type : Coffee, Soft drinks Frequency : Daily Amount : 1 cup & 2 cans Last Use : yesterday after noon TITA CALDWELL - 09/12/2012 8:37 METHODS TIME ANALYST Recreational Drug Use Grid Drug Use : None TITA CALDWELL 09/12/2012 8:37 METHODS TIME ANALYST Allergy Allergies (Active) Cats Estimated Onset Date: Unspecified ; Reactions: unknown ; Created By: PHILLIP JARAMILLO MD; Reaction Status: Active ; Category: Other ; Substance: Cats ; Type: Allergy ; Updated By: PHILLIP JARAMILLO; Reviewed Date: 09/12/2012 8:34 METHODS TIME ANALYST Dust Mite Estimated Onset Date: Unspecified ; Created By: KVNG PAULINO LPN; Reaction Status: Active ; Category: Drug ; Substance: Dust Mite ; Type: Allergy ; Updated By: KVNG PAULINO LPN; Reviewed Date: 09/12/2012 8:34 METHODS TIME ANALYST prochlorperazine Estimated Onset Date: Unspecified ; Reactions: unknown ; Created By: BRAD JARAMILLO MD; Reaction Status: Active ; Category: Drug ; Substance: prochlorperazine ; Type: Allergy ; Updated By: PHILLIP JARAMILLO MD; Reviewed Date: 09/12/2012 8:34 METHODS TIME ANALYST Source: [facility] POWERCHART Document Id: [id number] documented in this encounter Plan of Treatment Not on filedocumented as of this encounter Visit Diagnoses Not on filedocumented in this encounter
--- OUTSIDE RECORDS SUMMARY | 2022-07-10 08:23 | XMS_ITS | Encounter Summary ---
:1940 Author Organization [facility] Address [address] [place] [address] Care Team Providers Name Role Phone Unavailable Primary Care Provider Unavailable Encounter Details Date Type Department Care Team Description 10/15/2014 Hospital Encounter [facility] Jack Apodaca i, M.D. [address] [place] [address] (Wo rk) Social History Tobacco [...] More than 4 times per year 03/16/2022 spiritism services? Do you belong to any clubs [...] Sign Reading Time Taken Comments Blood Pressure 136/76 10/15/2014 11:45 AM CITY [employer]NCIL MEMBER Pulse 72 10/15/2014 11:45 AM [employer]BER Temperature - - Respiratory Rate 16 10/15/2014 11:45 AM [employer]BER Oxygen Saturation - - Inhaled Oxygen Concentration - - Weight 96 kg (211 lb 10.3 oz) 10/15/2014 11:45 AM CITY [employer]NCIL MEMBER Height 161 cm (5' 3.39) 10/15/2014 11:45 AM CITY [employer]IL [employer]BER Body Mass Index 37.04 10/15/2014 11:45 AM [employer] COUNCIL MEMBER documented in this encounter Medications at Time [...] documented as of this encounter H&P Notes Jack Luo M.D. - 10/15/2014 11:08 AM CST [id number] CHIEF COMPLAINT/ REASON FOR VISIT Proposed surgery date: 11/02/14 Surgeon: Dr. Nickerson Proposed surgery: Left total knee arthroplasty Location: [facility] HISTORY OF PRESENT ILLNESS Ainsley is a 73-year-old female who presents to the clinic today for a preanesthetic medical evaluationfor left total knee arthroplasty. I am asked by Dr. Nickerson to assess whether the patient is an adequate candidate for anesthesia. There are no further concerns at this time. MEDICATIONS Post-visit Medication Reconciliation Prednisone 10mg oral tablet see instructions, 1 tablet PO daily starting two days prior to trip continue through trip when upon return decrease to 5mg daily for 4 days then stop Pravastatin 40mg oral tablet 1.5 tablet PO, bedtime, new dose Albuterol CFC free 90mcg/inh inhalation aerosol with adapter 2 puffs, inhalation, q4hr, PRN shortness of breath/wheezing Celecoxib 200mg oral capsule 1 capsule PO, daily Flonase 0.05mg/inh nasal spray 1 spray, both nostrils, daily Synthroid 75mcg (0.075mg) oral tablet 1 tablet PO, daily Hydrochlorothiazide 25mg oral tablet 1 tablet PO, daily Lisinopril 30mg oral tablet 1 tablet PO, daily Singulair 10mg oral tablet 1 tablet PO, daily PM Triamcinolone 0.1% topical cream see instructions, 1 keiry topical prn, maintenance Calcium 600+D 1 tablet PO, t.i.d. Claritin 10mg oral tablet 1 tablet PO, daily, PRN allergy symptoms, tab (s) Fish oil oral capsule t.i.d. ALLERGIES Cats-unknown Prochlorperazine-unknown Dust mite SYSTEMS REVIEW She is having progressively worsening pain in the left knee and finds this incompatible with her active lifestyle. She otherwise has no complaints. No headaches, numbness or tingling. No changes in vision or hearing. No sore throat, runny nose, earache or cough. No shortness of breath or chest pain. No abdominal pain or change in bowel habits. No hematuria or dysuria. No lymph node swelling. No easy bruising or bleeding. No excessive thirst or hunger. No mood or behavioral difficulties. No vaginal discharge or dyspareunia. Cardiac risk factors: none Pulmonary risk factors: none Sleep Apnea: none Steroid use within the past 12 months: none Diabetes: none Bleeding risk factors: none Anesthesia reactions: none Need for prophylactic antibiotics: none Beta juwan: none The remainder of the review of systems is negative. PAST MEDICAL/SURGICAL HISTORY Candidal intertrigo Malignant neoplasm of skin of cheek, external Hypothyroidism NOS Hyperlipidemia NOS Hypertension essential, benign Rhinitis, allergic Asthma intrinsic NOS Asthma acute exacerbation Fibrocystic breast NOS Pain knee NOS Pain ankle NOS Right lateral epicondylectomy in 1985 Neuroma removal from foot Vaginal hysterectomy with ovaries intact hemorrhage PREVENTIVE SERVICES Tobacco use: None, never smoker Mammogram: to be completed. Lipid panel: 09/14/14 Colonoscopy: 08/18/09 Influenza: 07/02/14 Tetanus booster: 07/25/07 SOCIAL HISTORY She has a grown son. She lives in [place]. FAMILY HISTORY Mother at age 90 of coronary disease. Mother had cold agglutinin disease. Father at 70 of lung cancer. Brother at 66 of lung cancer. VITAL SIGNS HEIGHT: 161 cm. WEIGHT: 96 kg. BMI: 37.04 kg/m2. TEMP: 36.8 Deg C. PULSE: 72 /min. RESP: 16 /min. SpO2: 98 %. SYSTOLIC: 136 mmHg. DIASTOLIC: 76 mmHg. PHYSICAL EXAMINATION GENERAL: Alert and orientated x3, good hygiene, appropriately dressed. HEENT: Tympanic membranes are normal bilaterally. Oropharynx is without erythema or exudate. Inferior nasal turbinates are without injection. Neck is without adenopathy. LYMPH NODES: Not palpably enlarged and no nodules are palpated. HEART: Regular rate and rhythm without murmur. LUNGS: Clear to auscultation. ABDOMEN: Soft and nontender with no masses. EXTREMITIES: Within normal limits. IMPRESSION/REPORT/PLAN 1. Preoperative evaluation for surgery: The patient is ASA category 1. There is no contraindication to proceeding with anesthesia and surgery as planned. EKG and lab work will be completed and reviewedprior to surgery. Further recommendations per Dr. Nickerson. 2. Follow up: The patient will contact the clinic with any new or worsening symptoms. This document serves as a record of services personally performed by Jack Dorman MD. It was created on their behalf by Selin Holloway, a trained director of medical review. The creation of this record is based on the scribe's personal observations and the provider's statements to them. This document has been denise cked and approved by the attending provider. Jack Dorman M.D./denis Electronically Signed By: JACK LUO MD On: 11/01/2014 12:08 PM Source: [facility]OL[facility] Document Id: [id number] COUNCIL MEMBER documented in this encounter Nursing Notes Conversion, Historical Provider Ser - 11/01/2014 3:13 PM CST pre-op Pre-op faxed to [facility]. Electronically Signed By: PRAKASH ACEVEDO On: 11/01/2014 03:14 PM Source: [employer] Document Id: [id number] documented in this encounter Miscellaneous Notes Telephone Encounter - Conversion, Historical Provider Ser - 11/15/2014 10:42 AM CST *Phone Message Document Contains Addenda Addendum by JOE RAZA LPN on 15 November 2014 10:50:59 [employer] MEMBER will fax after provider fills out and signs order From: JEREMIAH ELLSWORTH (DAVID [employer] Materials Research Engineer) To: DAVID Dorman Nurse; Sent: 11/15/2014 10:42:52 [employer] MEMBER Subject: *Phone Message Caller is: ( x ) Patient ( ) Mother ( ) Father ( ) Spouse ( ) Daughter ( ) Son ( ) Pharmacy ( ) Other: Physician: Patient MRN #: Reason for Call: S: Patient needs a referral sent to [facility] so she can follow up on her physical therapy. B: Patient has an appt there tomorrow 11/16/14 A: R: Any questions she can be reached at [phone] Message: Advice/Action: Source used: ( ) Verbalizes [...] back cell phone number ( ) [facility] Document Id: [id number] Miscellaneous - Jack Luo M.D. - 10/15/2014 8:48 PM [employer]BER Ambulatory [address] Summary [address] [place] [id number] Visit Information Name: AINSLEY CEDEÑO [facility] Number: [id number] Current Date: 10/15/2014 20:48:33 Physicians Attending Provider: JACK LUO MD Primary Care Provider: PCP, UNASSIGNED - FB ARNOLALEX AINSLEY GAVIRIA has been given the following [...] nasal (Flonase 0.05 mg/inh nasal spray) 1 [place](s), Nostrils(Both), once a day hydrochlorothiazide (hydrochlorothiazide 25 [...] the Following Medications: Medication list as of 10-15-14 20:48 Attention: If you have any medications at home that are not on this list, DO NOT take them until youcontact your provider for clarification. Give a copy of your medication list to your primary care provider. Update your medication list any time medications or doses are changed and carry your medication list at all times in case of emergency. Electronically Signed By: JACK LUO MD Signed On:15-OCT-2014 20:48:23 Your Allergies & Intolerances Substance Reaction Symptoms [...] appointment detail needed. Your Goals/Additional instructions: Source: [facility] POWERCHART Document Id: [id number] COUNCIL MEMBER Miscellaneous - Jack Luo M.D. - 10/15/2014 8:48 PM [employer]BER Ambulatory Discharge Medication List [address] [id number] Visit Information Name: DEDE AINSLEY GAVIRIA [facility] Number: [id number] Visit Date: 10/15/2014 20:48:32 Attending Provider: JACK LUO MD Primary Care Provider: PCP, UNASSIGNED - FB AINSLEY CEDEÑO has been given the following list of [...] nasal (Flonase 0.05 mg/inh nasal spray) 1 [place](s), Nostrils(Both), once a day hydrochlorothiazide (hydrochlorothiazide 25 [...] the Following Medications: Medication list as of 10-15-14 20:48 Attention: If you have any medications at home that are not on this list, DO NOT take them until youcontact your provider for clarification. Give a copy of your medication list to your primary care provider. Update your medication list any time medications or doses are changed and carry your medication list at all times in case of emergency. Electronically Signed By: JACK LUO MD Signed On:15-OCT-2014 20:48:23 Additional Information: Source: [facility] Document Id: [id number] COUNCIL MEMBER Miscellaneous - Conversion, Historical Provider Ser - 10/15/2014 11:45 AM [employer] MEMBER Adult Treasury Specialist Intake/History Adult Treasury Specialist Intake/History Entered On: 10/15/2014 11:46 [employer]BER Performed On: 10/15/2014 11:45 [employer] MEMBER by JOE RAZA LPN Intake Chief Complaint : pre op physical Temperature Core : 36.8 DegC(Converted to: 98.2 DegF) Peripheral Pulse Rate : 72 /min Respiratory Rate : 16 /min Systolic Blood Pressure : 136 mmHg Diastolic Blood Pressure : 76 mmHg NIBP Mean : 96 mmHg BP Location : Right upper extremity Blood Pressure Cuff Size : Large SpO2 : 98 % Oxygen Therapy : Room air Height : 161 cm(Converted to: 5 ft 3 inch(es), 63 inch(es)) Actual Weight : 96 kg(Converted to: 211 lb 10 oz) Dosing Weight Clinic : 96 kg Clinic BSA : 2.07 Body Mass Index : 37.04 kg/m2 JOE RAZA LPN - 10/15/2014 11:45 [employer] General Info Information Given By : Patient Languages : Vietnamese Is Patient Female and 13-50 no hysterectomy : No JOE RAZA LPN - 10/15/2014 11:45 [employer] Subjective Pain Symptoms : Yes JOE RAZA LPN - 10/15/2014 11:45 [employer]BER Pain Scale Pain Scale Verbal 0-10 : Open JOE RAZA LPN - 10/15/2014 11:45 [employer]BER Pain Pain Assessment Grid Pain 1 Location : Knee Laterality : Left JOE RAZA LPN - 10/15/2014 11:45 [employer] MEMBER Dependent Habits Tobacco Use/Currently Using : No Exposure to Tobacco Smoke : Other: Never Smoked Smoking Status : Never smoker JOE RAZA NAVNEET LECHUGA - 10/15/2014 11:45 [employer] MEMBER Caffeine Use Grid Caffeine Use : Current Type : Soft drinks Frequency : Daily Amount : 1 can diet soda Last Use : 09/15/14 JOE RAZA NAVNEET LECHUGA - 10/15/2014 11:45 [employer] MEMBER Recreational Drug Use Grid Drug Use : None OLVIN MONTESNAJOE NAVNEET LECHUGA - 10/15/2014 11:45 [employer] MEMBER ID Screen Drug Resistant Organism : No Travel Within Last 21 Days : No JOE RAZA NAVNEET LECHUGA - 10/15/2014 11:45 [employer]IL MEMBER Source: [employer] Document Id: [id number] CITY COUNCIL MEMBER!48 Miscellaneous - Conversion, Historical Provider Ser - 10/15/2014 11:45 AM [employer]BER Obstructive Sleep Apnea Obstructive Sleep Apnea Entered On: 10/15/2014 11:47 [employer]BER Performed On: 10/15/2014 11:45 [employer] MEMBER by JOE RAZA LPN YOGI Screening Known Obstructive Sleep Apnea : No - NOT diagnosed with OYGI OLVIN MICHELLE, JOEANGIE TOTH LPN - 10/15/2014 11:45 [employer] MEMBER YOGI Assessment Do you have high blood pressure or have you been told to take medication for high blood pressure? : Yes Frequency of Snoring HTN : Never Frequency of Gasping, Choking, Snorting HTN : Occasionally (4-8 times per year) Total Number of Historical Features HTN : 0 Neck Circumference - YOGI - HTN : 38/39 Total Sleep Apnea Clinical Score HTN Calc : 5 OLVIN MICHELLE, JOEANGIE TOTH LPN - 10/15/2014 11:45 [employer]IL MEMBER Source: [employer] Document Id: [id number] CITY COUNCIL MEMBER!10 documented in this encounter Plan of Treatment Not on filedocumented as of this encounter Procedures Procedure Name Priority Date/Time Associated Diagnosis Comme nts AUTOMATED Routine 10/15/2014 12:36 PM Results for this DIFFERENTIAL, B [employer] MEMBER procedure ar e in the results section. CBC WITH Routine 10/15/2014 12:36 PM Results for this DIFFERENTIAL, B [employer] MEMBER procedure ar e in the results section. DX CHEST 1 VIEW Routine 10/15/2014 12:07 PM Resul ts for this [employer] MEMBER procedure are i n the results section. documented in this encounter Results (ABNORMAL) Automated Differential (10/15/2014 12:36 PM [employer]IL MEMBER) Patholo gist Method Time Signature Absolute 4.48 1.70 - POWERCHART Neutrophils 7.00 109L Lymphocytes 3.58 (H) 0.90 - POWERCHART 2.90 X109L Monocytes 0.75 0.30 - POWERCHART 0.90 X109L Eosinophils 0.17 0.05 - POWERCHART 0.50 X109L Absolute 0.05 0.00 - POWERCHART Basophil 0.30 X109L Specimen Anatomical Collection Method Collection Time Receive d Time (Source) Location / / Volume Laterality Blood 10/15/2014 12:36 10/15/2014 PM [employer]BER 12:36 PM [employer]BER Jack Root M.D. LAB BLOOD ADD-ON Performing Organization Address City/State/ZIP Code Phon e Number POWERCHART CBC with Differential (10/15/2014 12:36 PM [employer]IL MEMBER) P athologist Signature Leukocytes 9.0 3.4 - 10.5 POWERCHART X109L Erythrocytes 4.30 3.90 - POWERCHART 5.03 [id number] Hemoglobin 12.1 12.0 - POWERCHART 15.5 GDL Hematocrit 38.4 34.9 - POWERCHART 44.5 MCV 89.3 82.0 - POWERCHART 98.0 FL Platelet Count 282 150 - 450 POWERCHART X109L HX RDW 14.3 11.9 - POWERCHART 15.5 HXDifferential? Auto POWERCHART Specimen (Source) Anatomical Collection Method Collection Time Re ceived Time Location / / Volume Laterality Blood 10/15/2014 12:36 PM [employer] MEMBER Jack Root M.D. LAB BLOOD ADD-ON Performing Organization Address City/State/ZIP Code Phon e Number POWERCHART DX Chest 1 View (10/15/2014 12:07 PM [employer] MEMBER) Anatomical Region Laterality Modality Chest N/A Radiographic Imaging Specimen (Source) Anatomical Collection Method Collection Time Re ceived Time Location / / Volume Laterality 10/15/2014 12:07 PM [employer]BER Addenda Addendum by Provider, Cristiana Marino o n 10/15/2014 12:07 PM [employer] MEMBER RAD^^^OW XR Chest 1 view 10/15/2014 12:07:50 Addendum by Provider, Cristiana Marino o n 10/15/2014 12:07 PM [employer] MEMBER RAD^^^MA XR Chest 1 view 10/15/2014 12:07:50 Impressions 10/15/2014 12:57 PM [employer]IL MEMBER Stable chest, no active cardiopulmonary disease. Narrative 10/15/2014 12:57 PM [employer]IL MEMBER EXAM: XR Chest 1 view INDICATION: preop COMPARISON: 10/20/2009. FINDINGS: Heart size and pulmonary vascu larity are within normal limits. No acute appearing infiltrates o r effusions are identified. There is no significant interval change compared with 10/20/2009. Procedure Note Immanuel Hu Jr., M.D. / Ned Duke M.D. - 02/13/2017 EXAM: XR Chest 1 view INDICATION: preop COMPARISON: 10/20/2009. FINDINGS: Heart size and pulmonary vascu larity are within normal limits. No acute appearing infiltrates o r effusions are identified. There is no significant interval change compared with 10/20/2009. IMPRESSION: Stable chest, no active card iopulmonary disease. Alison Farmer(R), R.TAntwan(R)(M) IMG DIAGNOSTIC IM AGING PROCEDURES documented in this encounter Visit Diagnoses Not on filedocumented in this encounter Additional Health Concerns Assessment Noted Time PHQ-9 Depression Total Score: 1 09/16/2014 9:15 AM [employer] COUNCIL MEMBER documented as of this encounter
--- OUTSIDE RECORDS SUMMARY | 2022-07-10 08:23 | XMS_ITS | Encounter Summary ---
:1940 Author Organization [facility] Address [address] [place] [address] Care Team Providers Name Role Phone Unavailable Primary Care Provider Unavailable Encounter Details Date Type Department Care Team Description 08/06/2012 Hospital Encounter [facility]X [facility] Naomi Parker, MISA, C.N.P., D. N.P. [address] [place], [place] [address] (Wo rk) Social History [...] Sign Reading Time Taken Comments Blood Pressure 130/68 08/06/2012 8:51 AM CDT Pulse 78 08/06/2012 8:47 AM CDT Temperature - - Respiratory Rate - - [...] documented as of this encounter Nursing Notes Radha Ling L.PAntwanN. - 08/06/2012 8:50 AM CDT Nurse Only Documentation Nurse Only Documentation Entered On: 08/06/2012 8:50 CDT Performed On: 08/06/2012 8:50 CDT by RADHA RUCKER Vitals/Ht/Wt Systolic Blood Pressure : 130mmHg Diastolic Blood Pressure : 68mmHg NIBP Mean : 89mmHg BP Location : Left upper extremity Blood Pressure Cuff Size : Regular RADHA RUCKER - 08/06/2012 8:50 CDT Allergy Allergies (Active) Cats Estimated Onset Date: Unspecified ; Reactions: unknown ; Created By: PHILLIP JARAMILLO MD; Reaction Status: Active ; Category: Other ; Substance: Cats ; Type: Allergy ; Updated By: PHILLIP JARAMILLO; Reviewed Date: 08/01/2012 10:35 CDT Dust Mite Estimated Onset Date: Unspecified ; Created By: KVNG PAULINO LPN; Reaction Status: Active ; Category: Drug ; Substance: Dust Mite ; Type: Allergy ; Updated By: KVNG PAULINO LPN; Reviewed Date: 08/01/2012 10:35 CDT prochlorperazine Estimated Onset Date: Unspecified ; Reactions: unknown ; Created By: BRAD JARAMILLO MD; Reaction Status: Active ; Category: Drug ; Substance: prochlorperazine ; Type: Allergy ; Updated By: PHILLIP JARAMILLO MD; Reviewed Date: 08/01/2012 10:35 CDT Source: [facility] Signpost Document Id: [id number] Radha Ling L.PAntwanNAntwan - 08/06/2012 8:47 AM CDT Nurse Only Documentation Nurse Only Documentation Entered On: 08/06/2012 8:50 CDT Performed On: 08/06/2012 8:47 CDT by RADHA RUCKER Nurse Only Documentation Nurse Only Visit Documentation : Pt had an Nurse only Blood Pressure check 132/72 130/68 pulse 78 RADHA RUCKER - 08/06/2012 8:47 CDT Vitals/Ht/Wt Peripheral Pulse Rate : 78/min Systolic Blood Pressure : 132mmHg Diastolic Blood Pressure : 72mmHg NIBP Mean : 92mmHg BP Location : Left upper extremity Blood Pressure Cuff Size : Regular SpO2 : 99% Oxygen Therapy : Room air RADHA RUCKER - 08/06/2012 8:47 CDT Allergy Allergies (Active) Cats Estimated Onset Date: Unspecified ; Reactions: unknown ; Created By: PHILLIP JARAMILLO MD; Reaction Status: Active ; Category: Other ; Substance: Cats ; Type: Allergy ; Updated By: PHILLIP JARAMILLO; Reviewed Date: 08/01/2012 10:35 CDT Dust Mite Estimated Onset Date: Unspecified ; Created By: KVNG PAULINO LPN; Reaction Status: Active ; Category: Drug ; Substance: Dust Mite ; Type: Allergy ; Updated By: KVNG PAULINO LPN; Reviewed Date: 08/01/2012 10:35 CDT prochlorperazine Estimated Onset Date: Unspecified ; Reactions: unknown ; Created By: BRAD JARAMILLO MD; Reaction Status: Active ; Category: Drug ; Substance: prochlorperazine ; Type: Allergy ; Updated By: PHILLIP JARAMILLO MD; Reviewed Date: 08/01/2012 10:35 CDT Source: [employer] Document Id: [id number] documented in this encounter Miscellaneous Notes Miscellaneous - Radha Ling L.PAntwanN. - 08/06/2012 8:51 AM CDT Ambulatory Vitals Height Weight Ambulatory Vitals Height Weight Entered On: 08/06/2012 8:52 CDT Performed On: 08/06/2012 8:51 CDT by RADHA RUCKER Vitals/Ht/Wt Systolic Blood Pressure : 130mmHg Diastolic Blood Pressure : 68mmHg NIBP Mean : 89mmHg BP Location : Left upper extremity Blood Pressure Cuff Size : Regular RADHA RUCKER - 08/06/2012 8:51 CDT Source: [employer] Document Id: [id number] documented in this encounter Plan of Treatment Not on filedocumented as of this encounter Visit Diagnoses Not on filedocumented in this encounter
--- OUTSIDE RECORDS SUMMARY | 2022-07-10 08:23 | XMS_ITS | Encounter Summary ---
:1940 Author Organization [facility] Address [address] [place] [address] Care Team Providers Name Role Phone Unavailable Primary Care Provider Unavailable Encounter Details Date Type Department Care Team Description 10/04/2011 Hospital Encounter [facility]X [facility] Naomi Parker, MISA, C.N.P., D. N.P. [address] [place], [place] [address] (Wo rk) Social History [...] or slept in a intermediate (including now)? Sex Assigned at Date Recorded Female 06/26/2021 8:35 AM CDT documented as of this encounter Medications at Time of Discharge Medication Sig Dispensed Refills Start Date End Date DOCOSAHEXANOIC ACID/EPA 3 (three) times a 0 12/21 (FISH OIL ORAL) day. 2 in AM 1 capsule in PM loratadine (CLARITIN) 10 Take 1 tablet by 0 08/2302/06/2018 mg tablet mouth daily as needed. documented as of this encounter Progress Notes Elizabeth Parker APRN, C.N.P. - 10/04/2011 12:00 AM CST [id number] CHIEF COMPLAINT/ REASON FOR VISIT Asthma exacerbation. HISTORY OF PRESENT ILLNESS The patient is a 70-year-old female who presents to the clinic for an asthma exacerbation. Patient was having coughing attacks and shortness of breath. Patient was wheezing. She is seen at [facility] at the allergy and asthma clinic. Yesterday she called them and she began taking her prednisone 40 milligrams for 5 days. She has been using her albuterol inhaler. She is now requesting Tessalon Perles at nighttime to help with sleep. She did not tolerate Robitussin with codeine. She also has a history of a recent UTI after returning from [facility] for a mission trip. She started Cipro prior to being seen and was given a prescription for Cipro. She states she still has cloudy urine, but denies urgency, frequency or burning. Patient also denies fever, chills, nausea, vomiting, chest pain or flank pain. CURRENT MEDICATIONS See depart summary. ALLERGIES See EMR. PAST MEDICAL/SURGICAL HISTORY See EMR. VITAL SIGNS See EMR. PHYSICAL EXAM GENERAL: Well-appearing female in no acute distress. SKIN: Warm, dry and pink. HEAD: Normocephalic. EYES: Conjunctive clear. Sclerae white. No drainage. EARS: Ear canals clear bilaterally. Tympanic membranes intact, loco and shiny. Light reflex present. NOSE: Nasal mucosa pink and moist. THROAT: Posterior pharynx injected and moist. LYMPH NODES: No cervical lymphadenopathy. LUNGS: Clear to auscultation. No wheezes. HEART: Regular rate and rhythm. MENTAL: Alert and oriented to person, place and time. IMPRESSION/REPORT/PLAN 1. Asthma exacerbation. Patient will continue her prednisone given to her from [facility] from her asthma action plan. She will continue to take albuterol. She was given a prescription for Tessalon Perles. 2. UTI. Patient has recently been under a lot of stress with a in the family and has been very busy. She admits to not drinking very much water. Patient was given reassurance. Her cloudy urine could be from dehydration. If she develops symptoms of urgency, frequency or burning, she will return to the clinic for a UA. Patient verbalizes understanding and agrees with plan of care. JMS/nmd Signed Elizabeth Skinner CNP Nurse Practitioner Electronically Signed By: ELIZABETH SKINNER CNP On: 10/09/2011 08:58 AM Source: [facility] MHSDOLBEYNONRADSYS Document Id: [id number] CENTER MANAGER documented in this encounter Nursing Notes Conversion, Historical Provider Ser - 10/19/2011 12:53 PM CST Urine culture sensatives received Notified patient (by cell #) of need to change antibotic again - not normal strain of E-coli seen here; not sensitive to either antibotics given, now have sensative received to changed new antibotic that it is sensative to. Prescription sent to [facility] Electronically Signed By: KVNG PAULINO LPN On: 10/19/2011 12:56 PM Source: [facility] POWERCHART Document Id: [id number] documented in this encounter Miscellaneous Notes Miscellaneous - Elizabeth Parker APRN, C.N.P. - 10/04/2011 10:19 AM DATA CENTER MANAGER Ambulatory Patient Summary [address] [address] Visit Information Name: ELISE GANDHI Current Date: 10/04/2011 10:19:10 Primary Care Provider: ELIZABETH SKINNER CNP Your Medications Here is a list of your medications. It is important to take your medications as directed. Use a pillbox or chart to help remind you to take your medications. Please let your doctor or nurse know if you have problems taking your medications. Medication/Strength Dose Route Frequency Indications/Special Instructions/Comments predniSONE (predniSONE 20 mg oral tablet) 40 mg Oral once a day for 5 Days benzonatate (Tessalon Perles 100 mg oral capsule) 100 mg Oral three times a day as needed for Cough ciprofloxacin (Cipro 250 mg oral tablet) 250 mg Oral two times a day for 7 Days aspirin (aspirin 81 mg oral enteric coated tablet) 81 mg Oral once a day pravastatin (Pravachol 40 mg oral tablet) 40 mg Oral once a day lisinopril (lisinopril 20 mg oral tablet) 20 mg Oral once a day levothyroxine (Synthroid 75 mcg (0.075 mg) oral tablet) 75 mcg Oral once a day fluticasone nasal (Flonase 0.05 mg/inh nasal spray) 1 spray(s) Nostrils(Both) once a day chlorthalidone (chlorthalidone 25 mg oral tablet) 25 mg Oral once a day atenolol (atenolol 25 mg oral tablet) 25 mg Oral once a day Needs appointment albuterol (albuterol CFC free 90 mcg/inh inhalation aerosol with adapter) 2 puff(s) Inhalation every4 hours as needed for Shortness of breath / Wheezing loratadine (Claritin 10 mg oral tablet) 1 tab(s) Oral once a day as needed for Allergy symptoms omega-3 polyunsaturated fatty acids (Fish Oil oral capsule) three times a day ibuprofen (ibuprofen 200 mg oral tablet) Your Allergies & Intolerances Substance Reaction Symptoms Category Comments prochlorperazine unknown Drug Dust Mite Drug Cats unknown Other Your Problem List Problem Status Onset Comments Hypertension Essential, Benign Active Hypothyroidism (acquired) Active Fibrocystic breast changes Active Asthma, Instrinsic, unspecified Active Malignant neoplasm of skin of cheek, external Active Hyperlipidemia Active Routine general medical exam Active Your Recommendations We want to make sure you get the tests, immunizations, and guidance you need to stay healthy. Here is a customized list of recommendations, based on information we have in your medical record. Your doctor may have additional recommendations for you, based on your personal medical history and risk factors. You can help us by calling us to make an appointment when you are due for your tests. Additional information regarding recommendations: Test/Treatment Last Done Next Due Additional Information Health Assessment every 1 year 10/04/2011 Screening Bone Density Once Women greater than age 64 10/04/2011 Checks for bone loss and osteoporosis. Screening Colonoscopy or Flex Sig or Occult Blood 08/18/2009 08/16/2019 Checks for signs of cancer of the colon. Screening Mammogram every 1 year Women 40-75 09/07/2010 09/08/2011 X-rays of breast to check for breast cancer. Lipid Panel every 5 years Age 20-75 09/03/2011 09/01/2016 Checks blood for good (HDL) and bad (LDL) cholesterol. Know your numbers, they are one indicator of your risk for heart attack and stroke. Vaccine: Flu every 1 year 08/26/2011 08/25/2012 Immunization to help prevent you from getting the flu strain expected to be a problem for that year's flu season. Vaccine: Pneumococcal Once 09/15/2008 Completed Immunization to help prevent you from getting 23 kinds of pneumococcal bacteria that can lead to pneumonia, bacteremia and meningitis. Vaccine: Tetanus every 10 years 07/25/2007 07/22/2017 Immunization to help prevent you from getting the serious disease Tetanus (Lockjaw). Your Upcoming Appointments Date Time Location Reason Provider No Appointments found Your Goals/Additional instructions: Source: [facility] POWERCHART Document Id: [id number] CENTER MANAGER Miscellaneous - Elizabeth Parker APRN, C.N.P. - 10/04/2011 10:19 AM DATA CENTER MANAGER Ambulatory Depart Summary [address] [address] Visit Information Name: ELISE GANDHI Current Date: 10/04/2011 10:19:07 Physicians Attending Physician: ELIZABETH SKINNER CNP Primary Care Provider: ELIZABETH SKINNER CNP ELISE GANDHI has been given the following list of medications: Your Medications It is important to take your medications as directed. Use a pill box or chart to help remind you to take your medications. Please let your doctor or nurse know if you have problems taking your medications. Medication/Strength Dose Route Frequency Indications/Special Instructions/Comments predniSONE (predniSONE 20 mg oral tablet) 40 mg Oral once a day for 5 Days benzonatate (Tessalon Perles 100 mg oral capsule) 100 mg Oral three times a day as needed for Cough ciprofloxacin (Cipro 250 mg oral tablet) 250 mg Oral two times a day for 7 Days aspirin (aspirin 81 mg oral enteric coated tablet) 81 mg Oral once a day pravastatin (Pravachol 40 mg oral tablet) 40 mg Oral once a day lisinopril (lisinopril 20 mg oral tablet) 20 mg Oral once a day levothyroxine (Synthroid 75 mcg (0.075 mg) oral tablet) 75 mcg Oral once a day fluticasone nasal (Flonase 0.05 mg/inh nasal spray) 1 spray(s) Nostrils(Both) once a day chlorthalidone (chlorthalidone 25 mg oral tablet) 25 mg Oral once a day atenolol (atenolol 25 mg oral tablet) 25 mg Oral once a day Needs appointment albuterol (albuterol CFC free 90 mcg/inh inhalation aerosol with adapter) 2 puff(s) Inhalation every4 hours as needed for Shortness of breath / Wheezing loratadine (Claritin 10 mg oral tablet) 1 tab(s) Oral once a day as needed for Allergy symptoms omega-3 polyunsaturated fatty acids (Fish Oil oral capsule) three times a day ibuprofen (ibuprofen 200 mg oral tablet) Additional Information: Source: [facility] POWERCHART Document Id: [id number] CENTER MANAGER Miscellaneous - Conversion, Historical Provider Ser - 10/04/2011 9:55 AM DATA CENTER MANAGER Adult Bander And Cellophaner Machine Intake/History Adult Bander And Cellophaner Machine Intake/History Entered On: 10/04/2011 9:57 DATA CENTER MANAGER Performed On: 10/04/2011 9:55 DATA CENTER MANAGER by PRAKASH ACEVEDO Intake Chief Complaint : Bronchitis Temperature Core : 36.2C(Converted to: 97.2DegF) (LOW) Apical Heart Rate : 70/min Respiratory Rate : 16/min Heart Rhythm : Regular Systolic Blood Pressure : 104mmHg Diastolic Blood Pressure : 76mmHg NIBP Mean : 85mmHg BP Location : Right upper extremity Blood Pressure Cuff Size : Large SpO2 : 98% Oxygen Therapy : Room air Actual Weight : 87.6kg(Converted to: 193lb 2oz) Weight Source : Standing scale Dosing Weight Clinic : 87.60kg PRAKASH ACEVEDO - 10/04/2011 9:55 DATA CENTER MANAGER Subjective Pain Symptoms : No PRAKASH ACEVEDO - 10/04/2011 9:55 DATA CENTER MANAGER Dependent Habits Tobacco Use/Currently Using : No Smoking Status : Never smoker Alcohol Use : Yes PRAKASH ACEVEDO - 10/04/2011 9:55 DATA CENTER MANAGER Caffeine Use Grid Caffeine Use : Current Type : Coffee, Soft drinks Frequency : Daily Amount : 1 cup & 2 cans Last Use : yesterday after noon PRAKASH ACEVEDO - 10/04/2011 9:55 DATA CENTER MANAGER Recreational Drug Use Grid Drug Use : None PRAKASH ACEVEDO - 10/04/2011 9:55 DATA CENTER MANAGER Allergy Allergies (Active) Cats Estimated Onset Date: Unspecified ; Reactions: unknown ; Created By: PHILLIP JARAMILLO MD; Reaction Status: Active ; Category: Other ; Substance: Cats ; Type: Allergy ; Updated By: PHILLIP JARAMILLO; Reviewed Date: 04/13/2011 9:12 CDT Dust Mite Estimated Onset Date: Unspecified ; Created By: KVNG PAULINO LPN; Reaction Status: Active ; Category: Drug ; Substance: Dust Mite ; Type: Allergy ; Updated By: KVNG PAULINO LPN; Reviewed Date: 04/13/2011 9:12 CDT prochlorperazine Estimated Onset Date: Unspecified ; Reactions: unknown ; Created By: BRAD JARAMILLO MD; Reaction Status: Active ; Category: Drug ; Substance: prochlorperazine ; Type: Allergy ; Updated By: PHILLIP JARAMILLO MD; Reviewed Date: 04/13/2011 9:12 CDT Source: [facility] POWERCHART Document Id: [id number] DATA CENTER MANAGER!33 documented in this encounter Plan of Treatment Not on filedocumented as of this encounter Visit Diagnoses Not on filedocumented in this encounter
--- OUTSIDE RECORDS SUMMARY | 2022-07-10 08:23 | XMS_ITS | Encounter Summary ---
:1940 Author Organization [facility] Address [address] [place] [address] Care Team Providers Name Role Phone Unavailable Primary Care Provider Unavailable Encounter Details Date Type Department Care Team Description 11/05/2011 Hospital Encounter HX [facility] Naomi Parker, MISA, C.N.P., D. N.P. [address] [place], [place] [address] (Wo rk) Social History [...] or relatives? How often do you attend hinduism or More than 4 times per year 03/16/2022 caodaism services? Do you belong to any clubs or Yes 03/16/2022 organizations such as hinduism groups, unions, fraternal or athletic groups, or [...] or slept in a long-term (including now)? Sex Assigned at Date Recorded Female 06/26/2021 8:35 AM CDT documented as of this encounter Last Filed Vital Signs Vital Sign Reading Time Taken Comments Blood Pressure 120/80 11/05/2011 11:14 AM WELDER TECH Pulse 68 11/05/2011 11:14 AM WELDER TECH Temperature - - Respiratory Rate 20 11/05/2011 11:14 AM WELDER TECH Oxygen Saturation - - Inhaled Oxygen Concentration - - Weight 86.5 kg (190 lb 11.2 oz) 11/05/2011 11:14 AM WELDER TECH Height - - Body Mass Index - [...] Progress Notes Jonathon Parker APRN, C.N.P. - 11/05/2011 12:00 AM CST [id number] CHIEF COMPLAINT/ REASON FOR VISIT Cold. HISTORY OF PRESENT ILLNESS The patient is a 71-year-old female who presents to the clinic for cold symptoms for one month. Patient states she had an asthma exacerbation starting October 02, 2011. She did take a course of prednisone at that time. She has been using her albuterol inhaler as needed. She states she got a little better but now it is worse. She has had a fever, chills and sinus pressure and full head. She denies shortness of breath, chest pain or nausea or vomiting. CURRENT MEDICATIONS See depart summary. ALLERGIES See EMR. PAST MEDICAL/SURGICAL HISTORY See EMR. VITAL SIGNS See EMR. PHYSICAL EXAM GENERAL: Ill appearing female in no acute distress. SKIN: Warm, dry and pink. HEAD: Normocephalic. Tender with palpation over the frontal maxillary sinuses. EYES: Conjunctivae clear. Sclerae white no drainage. EENT: EARS: Ear canals clear bilaterally. TMs intact loco shiny light reflex present. NOSE: Nasal mucosa edematous and erythematous. THROAT: Posterior pharynx injected and postnasal discharge noted. LYMPH: Mild cervical lymphadenopathy. LUNGS: Clear to auscultation. No wheezes, rales or rhonchi. HEART: Regular rate and rhythm. MENTAL: Alert and oriented to person, place and time. IMPRESSION/REPORT/PLAN 1. Acute sinusitis. Patient will be treated with amoxicillin 875 milligrams twice a day for 10 days. Patient was encouraged to rest, increase her fluids and take Tylenol and ibuprofen as needed. Patient was also encouraged to use Mucinex to help break up the congestion and expel it. Patient verbalizes understanding and agrees with plan of care. EMELY/corey Signed Jonathon Skinner CNP Nurse Practitioner Electronically Signed By: JONATHON SKINNER CNP On: 11/06/2011 10:57 AM Source: [facility] MHSDOLBEYNONRADSYS Document Id: [id number] ER TECH documented in this encounter Nursing Notes Conversion, Historical Provider Ser - 06/04/2012 4:47 PM CDT Change pharmacy Pt called wanting to change pharmacy to [facility] fax# [phone]. Pravastatin, Lisinopril, Atenolol, Chlorothalidone, Synthroid. [facility]# [id number] along with on coverletter. Will fax rx's to [facility]. Electronically Signed By: KARELY CHOW On: 06/04/2012 04:49 PM Source: [facility] POWERCHART Document Id: [id number] Conversion, Historical Provider Ser - 11/09/2011 3:22 PM CST Prior Authorization Called [facility] for a Prior authorization for Nitrofurantioin Reference # [id number] , I did this over the phone today, will know the outcome in a few day. I called . Electronically Signed By: PRAKASH ACEVEDO On: 11/09/2011 03:27 PM Source: [facility] POWERCHART Document Id: [id number] documented in this encounter Miscellaneous Notes Telephone Encounter - Duc Ling L.P.N. - 11/14/2011 9:21 AM WELDER TECH Phone Message From: DUC RUCKER Sent: 11/14/2011 09:21:25 WELDER TECH Subject: Phone Message Caller is: ( ) Patient ( ) Mother ( ) Father ( ) Spouse ( ) Daughter ( ) Son ( ) Pharmacy ( X ) Other: Physician: Jonathon Skinner CNP Patient Reason for Call: Message: Appeal for prescribed medication that is not sensitive to bacteria vs what [facility] companysuggests. Advice/Action: Called Cinder Crane Operator at [employer] on Nov 12, 2011 10:20am and left a message regarding the patient's sensitivities to ciprofloaxin, cephalexin sulfamethoxzole etc. And Microbid that was prescibed was not sensitive to the bacteria and can be used. Attemped to call again [employer] Crane Operator at [employer] on Nov 14, 2011 9:05am. Left a message and our contact number. Will try to reach them with fax . Source used: ( ) Verbalizes understanding of [...] back cell phone number ( ) Source: [facility] POWERCHART Document Id: [id number] Miscellaneous - Jonathon Parker APRN, C.N.P. - 11/05/2011 11:45 AM WELDER TECH Ambulatory Patient Summary [address] [address] Visit Information Name: AINSLEY GANDHI Current Date: 11/05/2011 11:45:05 Primary Care Provider: JONATHON SKINNER [facility] Your Medications Here is a list of your medications. It is important to take your medications as directed. Use a pillbox or chart to help remind you to take your medications. Please let your doctor or nurse know if you have problems taking your medications. Medication/Strength Dose Route Frequency Indications/Special Instructions/Comments amoxicillin (amoxicillin 875 mg oral tablet) 875 mg Oral two times a day for 10 Days calcium-vitamin D (Calcium 600+D) 1 tab(s) Oral three times a day fluticasone-salmeterol (Advair HFA 115 mcg-21 mcg/inh inhalation aerosol with adapter) 2 puff(s) Inhalation two times a day predniSONE (predniSONE) 40 mg Oral once a day benzonatate (Tessalon Perles) 100 mg Oral three times a day aspirin (aspirin [...] Hyperlipidemia Active Routine general medical exam Active Asthma with acute exacerbation Active Sinusitis, acute NOS Active Your Recommendations We want to make [...] Additional Information Health Assessment every 1 year 11/05/2011 Screening Bone Density Once Women greater than age 64 10/16/2011 Completed Checks for bone loss and osteoporosis. Screening Colonoscopy or Flex Sig or Occult Blood 08/18/2009 08/16/2019 Checks for signs of cancer of the colon. Screening Mammogram every 1 year Women 40-75 10/16/2011 10/16/2012 X-rays of breast to check for breast [...] you from getting the serious disease Tetanus (Cassie). Your Upcoming Appointments Date Time Location Reason Provider No Appointments found Your Goals/Additional instructions: Source: [facility] POWERCHART Document Id: [id number] ER TECH Miscellaneous - Jonathon Parker APRN, C.N.P. - 11/05/2011 11:45 AM WELDER TECH Ambulatory Depart Summary [address] [address] Visit Information Name: AINSLEY GANDHI Current Date: 11/05/2011 11:45:02 Attending Provider: JONATHON SKINNER CNP Primary Care Provider: JONATHON SKINNER COMMODITY BUYER AINSLEY GANDHI has been given the following list of medications: Your Medications It is important to take your medications as directed. Use a pill box or chart to help remind you to take your medications. Please let your doctor or nurse know if you have problems taking your medications. Medication/Strength Dose Route Frequency Indications/Special Instructions/Comments amoxicillin (amoxicillin 875 mg oral tablet) 875 mg Oral two times a day for 10 Days calcium-vitamin D (Calcium 600+D) 1 tab(s) Oral three times a day fluticasone-salmeterol (Advair HFA 115 mcg-21 mcg/inh inhalation aerosol with adapter) 2 puff(s) Inhalation two times a day predniSONE (predniSONE) 40 mg Oral once a day benzonatate (Tessalon Perles) 100 mg Oral three times a day aspirin (aspirin [...] 200 mg oral tablet) Additional Information: Source: [facility] POWERCHART Document Id: [id number] ER TECH Miscellaneous - Duc Ling LAntwanPAntwanN. - 11/05/2011 11:14 AM CST Adult Drop Clipper Intake/History Adult Drop Clipper Intake/History Entered On: 11/05/2011 11:19 WELDER TECH Performed On: 11/05/2011 11:14 WELDER TECH by DUC RUCKER Intake Chief Complaint : Allergies or Asthma Temperature Core : 37.2C(Converted to: 99.0DegF) Peripheral Pulse Rate : 68/min Respiratory Rate : 20/min Heart Rhythm : Regular Systolic Blood Pressure : 120mmHg Diastolic Blood Pressure : 80mmHg NIBP Mean : 93mmHg BP Location : Right upper extremity Blood Pressure Cuff Size : Regular Actual Weight : 86.5kg(Converted to: 190lb 11oz) Weight Source : Standing scale Dosing Weight Clinic : 86.50kg DUC RUCKER - 11/05/2011 11:14 WELDER TECH Subjective Pain Symptoms : No DUC RUCKER - 11/05/2011 11:14 WELDER TECH Dependent Habits Tobacco Use/Currently Using : No Exposure to Tobacco Smoke : Other: Never Smoked Smoking Status : Never smoker DUC RUCKER - 11/05/2011 11:14 WELDER TECH Caffeine Use Grid Caffeine Use : Current Type : Coffee, Soft drinks Frequency : Daily Amount : 1 cup & 2 cans Last Use : yesterday after noon DUC RUCKER - 11/05/2011 11:14 WELDER TECH Recreational Drug Use Grid Drug Use : None DUC RUCKER - 11/05/2011 11:14 WELDER TECH Allergy Allergies (Active) Cats Estimated Onset Date: Unspecified ; Reactions: unknown ; Created By: PHILLIP JARAMILLO MD; Reaction Status: Active ; Category: Other ; Substance: Cats ; Type: Allergy ; Updated By: PHILLIP JARAMILLO; Reviewed Date: 11/05/2011 11:09 WELDER TECH Dust Mite Estimated Onset Date: Unspecified ; Created By: KVNG PAULINO LPN; Reaction Status: Active ; Category: Drug ; Substance: Dust Mite ; Type: Allergy ; Updated By: KVNG PAULINO LPN; Reviewed Date: 11/05/2011 11:09 WELDER TECH prochlorperazine Estimated Onset Date: Unspecified ; Reactions: unknown ; Created By: BRAD JARAMILLO MD; Reaction Status: Active ; Category: Drug ; Substance: prochlorperazine ; Type: Allergy ; Updated By: PHILLIP JARAMILLO MD; Reviewed Date: 11/05/2011 11:09 WELDER TECH Source: [facility] POWERCHART Document Id: [id number] WELDER TECH!31 ER TECH documented in this encounter Plan of Treatment Not on filedocumented as of this encounter Visit Diagnoses Not on filedocumented in this encounter
--- OUTSIDE RECORDS SUMMARY | 2022-07-10 08:23 | XMS_ITS | Encounter Summary ---
:1940 [facility] Organization [facility] Address [address] [place] [address] Care Team Providers Name Role Phone Unavailable Primary Care Provider Unavailable Encounter Details Date Type Department Care Team Description 09/18/2012 Hospital Encounter HX [facility] Naomi Parker, MISA, C.N.P., D. N.P. [address] [place], [place] [address] (Wo rk) Social History [...] Sign Reading Time Taken Comments Blood Pressure 140/70 09/18/2012 8:39 AM HOTEL SERVER Pulse - - Temperature - - Respiratory [...] Nursing Notes Conversion, Historical Provider Ser - 09/26/2012 4:29 PM CST B/p check 12 8 min. after meds. 126/77 pulse 73 12-16-12 10 min after meds 123/81 pulse 68 12-17-12 no meds 144/82 pulse 67, 15 min. later no meds 129/75 pulse 66, 13 min later afrer meds. 113/75 pulse 64 12-18-12 no meds 137/83 pulse 72, 15 min. later no meds 112/74 pulse 71, 15 min later after meds. 137/76 pulse 67 Electronically Signed By: TITA CALDWELL On: 09/26/2012 04:33 PM Source: [facility] POWERCHART Document Id: [id number] Conversion, Historical Provider Ser - 09/18/2012 8:35 AM CST Nurse Only Documentation Nurse Only Documentation Entered On: 09/18/2012 8:35 HOTEL SERVER Performed On: 09/18/2012 8:35 HOTEL SERVER by TITA CALDWELL V[employer]eron/Ht/Wt Systolic Blood Pressure : 140mmHg Diastolic Blood Pressure : 70mmHg NIBP Mean : 93mmHg BP Location : Right upper extremity Blood Pressure Cuff Size : Regular TITA CALDWELL - 09/18/2012 8:35 HOTEL SERVER Allergy Allergies (Active) Cats Estimated Onset Date: Unspecified ; Reactions: unknown ; Created By: PHILLIP JARAMILLO MD; Reaction Status: Active ; Category: Other ; Substance: Cats ; Type: Allergy ; Updated By: PHILLIP JARAMILLO; Reviewed Date: 09/12/2012 8:34 HOTEL SERVER Dust Mite Estimated Onset Date: Unspecified ; Created By: KVNG PAULINO LPN; Reaction Status: Active ; Category: Drug ; Substance: Dust Mite ; Type: Allergy ; Updated By: KVNG PAULINO LPN; Reviewed Date: 09/12/2012 8:34 HOTEL SERVER prochlorperazine Estimated Onset Date: Unspecified ; Reactions: unknown ; Created By: BRAD JARAMILLO MD; Reaction Status: Active ; Category: Drug ; Substance: prochlorperazine ; Type: Allergy ; Updated By: PHILLIP JARAMILLO MD; Reviewed Date: 09/12/2012 8:34 HOTEL SERVER Source: [employer] Document Id: [id number] documented in this encounter Miscellaneous Notes Miscellaneous - Conversion, Historical Provider Ser - 09/18/2012 8:39 AM HOTEL SERVER Ambulatory Vitals Height Weight Ambulatory Vitals Height Weight Entered On: 09/18/2012 8:39 HOTEL SERVER Performed On: 09/18/2012 8:39 HOTEL SERVER by TITA CALDWELL/Ht/Wt Systolic Blood Pressure : 140mmHg Diastolic Blood Pressure : 70mmHg NIBP Mean : 93mmHg BP Location : Right upper extremity Blood Pressure Cuff Size : Regular Weight Source : Standing scale TITA CALDWELL - 09/18/2012 8:39 HOTEL SERVER Source: [facility] POWERCHART Document Id: [id number] documented in this encounter Plan of Treatment Not on filedocumented as of this encounter Visit Diagnoses Not on filedocumented in this encounter
--- OUTSIDE RECORDS SUMMARY | 2022-07-10 08:23 | XMS_ITS | Encounter Summary ---
:1940 Author Organization [facility] Address [address] [place] [address] Care Team Providers Name Role Phone Unavailable Primary Care Provider Unavailable Encounter Details Date Type Department Care Team Description 03/09/2014 Hospital Encounter HX [facility] Naomi Parker, MISA, C.N.P., D. N.P. [address] [place], [place] [phone] (Wo rk) Social History [...] Sign Reading Time Taken Comments Blood Pressure 120/70 03/09/2014 3:00 PM CDT Pulse 80 03/09/2014 3:00 PM CDT Temperature - - Respiratory Rate 16 03/09/2014 3:00 PM CDT Oxygen Saturation - - Inhaled Oxygen Concentration - - Weight 93.4 kg (205 lb 14.6 oz) 03/09/2014 3:00 PM CDT Height - - Body Mass Index 35.2 09/25/2013 8:26 AM SEAT COVER CUTTER documented in this encounter Medications at Time [...] Progress Notes Elizabeth Parker APRN, C.N.P. - 03/09/2014 2:53 PM CDT FM-LE CHIEF COMPLAINT/REASON FOR VISIT Left knee pain. HISTORY OF PRESENT ILLNESS The patient is a 73-year-old female who presents to the clinic for left knee pain. She was previously seen for this and had x-ray that revealed degenerative joint disease and small effusion. Patient was offered knee injection at last visit, but at that time had declined. She is now interested in obtaining this. She denies fever, chills, nausea, vomiting, shortness of breath, or chest pain. MEDICATIONS See depart summary. ALLERGIES See EMR. PAST MEDICAL/SURGICAL HISTORY Unchanged, see EMR. SOCIAL HISTORY Unchanged, see EMR. FAMILY HISTORY Unchanged, see EMR. VITAL SIGNS See EMR. PHYSICAL EXAMINATION GENERAL: Well-nourished female in no acute distress. LYMPH NODES: No cervical lymphadenopathy. EXTREMITIES: Left knee exam reveals a patella that moves freely. She has pain on full extension. Shehas negative anterior or posterior drawer tests. There is no redness. There is some swelling. MENTAL: Alert and oriented to person, place, and time. IMPRESSION/REPORT/PLAN Left knee pain. Osteoarthritis is present. She was instructed the disease will continue to slowly progress. At this time she can take Tylenol as needed for discomfort. With osteoarthritis, it is important to remain as active as possible. Patient was counseled on steroid injection and she would like to proceed. PROCEDURE After obtaining a verbal consent and discussing risks versus benefits, the area was prepped. The medial aspect of the knee was cleansed with Betadine and alcohol. Under sterile conditions, 3 mL of 1% lidocaine and 40 mg of Kenalog were injected. Band-Aid was applied. No complications. [place] protocol was followed and please see universal protocol sheet scanned into EMR. Patient was instructed to call immediately if she develops redness, pain, or swelling. Patient verbalizes understanding and agrees with plan of care. Elizabeth Skinner CNP/tello Electronically Signed By: ELIZABETH SKINNER CNP On: 05/27/2014 06:24 PM Modified by and Electronically Signed by: ELIZABETH SKINNER CNP On: 05/27/2014 06:24 PM Source: [facility] MHSDOLBEYNONRADSYS Document Id: [id number] documented in this encounter Miscellaneous Notes Miscellaneous - Joshua Rubin, L.P.N. - 03/09/2014 3:00 PM CDT Adult Patented Hogshead Assembler Intake/History Adult Patented Hogshead Assembler Intake/History Entered On: 03/09/2014 15:01 CDT Performed On: 03/09/2014 15:00 CDT by ERICHSEN, DWYN E MANUFACTURING MANAGER Intake Chief Complaint : cortisone injection in left knee Temperature Core : 37.0 DegC(Converted to: 98.6 DegF) Peripheral Pulse Rate : 80 /min Respiratory Rate : 16 /min Systolic Blood Pressure : 120 mmHg Diastolic Blood Pressure : 70 mmHg NIBP Mean : 87 mmHg BP Location : Right upper extremity Blood Pressure Cuff Size : Regular Actual Weight : 93.4 kg(Converted to: 205 lb 15 oz) Weight Source : Standing scale Dosing Weight Clinic : 93.4 kg JOSHUA RUBIN LPN - 03/09/2014 15:00 CDT General Info Information Given By : Patient Preferred Communication Mode : Verbal Languages : Persian JOSHUA RUBIN LPN - 03/09/2014 15:00 CDT Subjective Pain Symptoms : Yes JOSHUA RUBIN LPN - 03/09/2014 15:00 CDT Pain Pain Assessment Grid Pain 1 Location : Knee Intensity : 4 Duration : 11/2013 JOSHUA RUBIN LPN - 03/09/2014 15:00 CDT Dependent Habits Tobacco Use/Currently Using : No Tobacco Use/Last 12 months : No Tobacco Use/Advised to Quit : No Exposure to Tobacco Smoke : Other: Never Smoked Smoking Status : Never smoker JOSHUA RUBIN LPN - 03/09/2014 15:00 CDT Caffeine Use Grid Caffeine Use : Current Type : Soft drinks Frequency : Daily Amount : 1 can diet soda JOSHUA RUBIN LPN - 03/09/2014 15:00 CDT Recreational Drug Use Grid Drug Use : None JOSHUA RUBIN LPN - 03/09/2014 15:00 CDT Source: [facility] Document Id: [id number] documented in this encounter Plan of Treatment Not on filedocumented as of this encounter Visit Diagnoses Not on filedocumented in this encounter
--- OUTSIDE RECORDS SUMMARY | 2022-07-10 08:23 | XMS_ITS | Encounter Summary ---
:1940 Author Organization [facility] Address [address] [place] [address] Care Team Providers Name Role Phone Unavailable Primary Care Provider Unavailable Encounter Details Date Type Department Care Team Description 10/17/2011 Hospital Encounter HX [facility] Srinivas Andrade M.D. [address] [place] [phone] (Wo rk) Social History Tobacco Use Types [...] Miscellaneous - Elizabeth Parker, MISA, C.N.P. - 10/17/2011 11:26 AM ICE SKATING INSTRUCTOR Results Notification Document Contains Addenda Addendum by VKNG PAULINO LPN on 17 October 2011 16:44:20 ICE SKATING INSTRUCTOR Spoke with patient earlier & given below results & information prescription sent to [facility] From: ELIZABETH POTTER PAINT SUPERVISOR To: KVNG PAULINO LPN Sent: 10/17/2011 11:26:03 ICE SKATING INSTRUCTOR ! Show up: 10/17/2011 17:26:03 [facility] Subject: Results Notification Actions: Notify patient of results Source: [facility] POWERCHART Document Id: [id number] documented in this encounter Plan of Treatment Not on filedocumented as of this encounter Procedures Procedure Name Priority Date/Time Associated Diagnosis Comme nts DIPSTICK, U Routine 10/17/2011 9:09 AM Results f or this ICE SKATING INSTRUCTOR procedure are i n the results section. BACTERIAL CULTURE, Routine 10/17/2011 9:09 AM Res ults for this AEROBIC, URINE ICE SKATING INSTRUCTOR procedure are in the results section. documented in this encounter Results (ABNORMAL) Dipstick, Urine (10/17/2011 9:09 AM ICE SKATING INSTRUCTOR) [facility] Method Time Signature Source Clean Void POWERCHART Urine HXUr Color Yellow POWERCHART Appearance Cloudy (A) POWERCHART Glucose Negative Negative POWERCHART HXBILIRUBIN Negative Negative POWERCHART Ketones, QL(U) Negative Negative POWERCHART Specific 1.020 1.020 POWERCHART [place], POCT, U HXBLOOD Small (A) Negative POWERCHART pH, POCT, Urine 6.0 5.0 - 8.0 POWERCHART Protein, Ur, Dip Negative Negative POWERCHART Urobilinogen 0.2 0.2 - 1.0 POWERCHART HXNITRITE Positive (A) Negative POWERCHART Leukocyte Large (A) Negative POWERCHART Esterase Specimen (Source) Anatomical Collection Method Collection Time Re ceived Time Location / / Volume Laterality Urine 10/17/2011 9:09 AM ICE SKATING INSTRUCTOR Elizabeth Parker APRN, C.N.P., D.N.P. LAB URINE ORDERA BLES Performing Organization Address City/State/ZIP Code Phon e Number POWERCHART Bacterial Culture, Aerobic, Urine (10/17/2011 9:09 AM ICE SKATING INSTRUCTOR) [facility] Method Time Signature Bacterial POWERCHART Culture, Aerobic, Urine HXFinal See POWERCHART scanned/paper report. Test performed at [facility]. Specimen (Source) Anatomical Collection Method Collection Time Re ceived Time Location / / Volume Laterality Urine, Clean 10/17/2011 9:09 AM Catch ICE SKATING INSTRUCTOR Elizabeth Parker APRN, C.N.P., D.N.P. LAB MICROBIOLOGY - GENERAL ORDERABLES Performing Organization Address City/State/ZIP Code Phon e Number POWERCHART documented in this encounter Visit Diagnoses Not on filedocumented in this encounter
--- OUTSIDE RECORDS SUMMARY | 2022-07-10 08:23 | XMS_ITS | Encounter Summary ---
:1940 Author Organization [facility] Address [address] [place] [address] Care Team Providers Name Role Phone Unavailable Primary Care Provider Unavailable Encounter Details Date Type Department Care Team Description 08/01/2012 Hospital Encounter HX [facility]ILY[facility] Naomi Parker, MISA, C.N.P., D. N.P. [address] [place], [place] [address] (Wo rk) Social History [...] or relatives? How often do you attend rastafari or More than 4 times per year 03/16/2022 alevism services? Do you belong to any clubs or Yes 03/16/2022 organizations such as rastafari groups, unions, fraternal or athletic groups, or [...] Taken Comments Blood Pressure - - Pulse 72 08/01/2012 10:38 AM CDT Temperature - - Respiratory Rate 20 08/01/2012 10:38 AM CDT Oxygen Saturation - - Inhaled Oxygen Concentration - - Weight 89.8 kg (197 lb 15.6 oz) 08/01/2012 10:38 AM CDT Height 161.8 cm (5' 3.7) 08/01/2012 10:38 AM CDT Body Mass Index 34.3 08/01/2012 10:38 AM CDT documented in this encounter Medications [...] Progress Notes Jonathon Parker APRN, C.N.P. - 08/01/2012 10:28 AM CDT [id number] CHIEF COMPLAINT/REASON FOR VISIT UTI. HISTORY OF PRESENT ILLNESS The patient is a 71-year-old female who presents for dysuria for 3 days. She also complains of frequency and urgency. She denies blood in her urine. She denies flank pain. She denies fever, chills, nausea, vomiting, chest pain or shortness of breath. Patient also has a history of hypertension and blood pressures noted to be108/60 today and she is wondering if she is able to decrease any of her blood pressure medications. She denies lightheadedness or dizziness. She also has a history of right knee and foot pain and she was seen at the orthopedic fracture clinic. She states she has not been taking Aleve as stated to do by Dr. Nickerson. She states they were unable to find anything wrong. This is frustrating to her because she continues to have right foot pain. Patient also will be traveling to [place] from October 07 to January 05 and is due for her mammogram in October. We have been arranging to have her mammogram completed in [place] while she is snowboarding. Patient will follow up next month for her complete physical. CURRENT MEDICATIONS See depart summary. ALLERGIES See EMR PAST MEDICAL/SURGICAL HISTORY See EMR SOCIAL HISTORY Unchanged and see EMR please see health assessment PowerForm completed today for complete details. FAMILY HISTORY Unchanged and see EMR. VITAL SIGNS See EMR PHYSICAL EXAMINATION GENERAL: Well-appearing obese female in no acute distress. SKIN: Warm, dry and pink. HEAD: Normocephalic. EYES: Conjunctive clear. Sclerae white. No drainage. ENT: EARS ear canals clear bilaterally. TMs intact, loco shiny and light reflex present bilaterally.Nose: Nasal mucosa pink and moist. Throat: Posterior pharynx moist and pink. LYMPHS: No cervical lymphadenopathy. LUNGS: Clear to auscultation. HEART: Regular rate and rhythm. ABDOMEN: Flat, soft, nondistended. No organomegaly or masses. No tenderness on palpation. Bowel sounds times 4 quadrants. BACK: No CVA tenderness. MENTAL: Alert and oriented person, place and time. IMPRESSION/REPORT/PLAN 1. Urinary tract infection. UA was obtained and positive. Urine culture pending. Will treat patient with Macrobid 100 mg twice a day for 7 days. Patient should increase her fluids, wipe front to back and avoid tub baths. If she has worsening symptoms or does not improve she can return. 2. Hypertension. At this time, we will go ahead and discontinue her atenolol 25 mg once daily. She will return next week for nurse-only blood pressure and heart rate check. She will follow up in 1 month for reassessment if blood pressure is still controlled. If she notes elevation she will let me knowsooner. 3. Right foot pain. Patient was instructed that she can take scheduled Tylenol on a regular basis for pain control. Patient was instructed not to take more than 3600 mg of Tylenol and 1 day. Patient was also instructed if she uses Aleve on a regular basis. She should take it with food to prevent GI upset or bleed. Patient verbalizes understanding and agrees with plan of care. Jonathon Skinner CNP/sean Electronically Signed By: JONATHON SKINNER CNP On: 09/14/2012 08:54 PM Source: [facility] MHSDOLBEYNONRADSYS Document Id: [id number] PRE COOLER documented in this encounter Procedure Notes Duc Ling L.PAntwanNAntwan - 08/01/2012 11:15 AM CDT Urine Dipstick Urine Dipstick Entered On: 08/01/2012 11:16 CDT Performed On: 08/01/2012 11:15 CDT by DUC RUCKER Urine Dipstick UA Color POC : Yellow UA Appear POC : Cloudy UA Leuk POC : 3+ Large UA Nitrite POC : Negative UA Urobilinogen POC : 0.2 mg/dl UA Protein POC : 3+ (300 mg/dl) UA pH POC : 6.0 UA Blood POC : 3+ LARGE UA Spec Grav POC : 1.030 UA Ketones POC : Negative UA Bili POC : 1+ Small UA Glucose POC : Negative Test Strip Lot # : [id number] Test Strip Expiration Date : 05/21/2013 DUC RUCKER - 08/01/2012 11:15 CDT Source: [facility] POWERCHART Document Id: [id number] documented in this encounter Nursing Notes Duc Ling L.PKerrie. - 08/05/2012 4:03 PM CDT Mammo Screening Scheduled 10/20/2012 [facility] Document Contains Addenda Addendum by SE LOPEZ [facility], INBOX [id number] on December 15, 2015 15:49 CAR PRE COOLER The nurse who authored this document is no longer available to authenticate. The document will be filed without authentication. Modified by and Electronically Signed by: DUC RUCKER On: 12/15/2015 03:49 PM Electronically Signed by Proxy by: SE JOHN GILL, INBOX Mammo Screening Scheduled 10/20/2012 [facility]. [place] Referring Physicians fax [phone] and phone number [phone] or [phone] Electronically Signed By: DUC RUCKER On: 12/15/2015 03:49 PM Electronically Signed by Proxy by: SE JOHN GILL, INBOX Source: [facility] POWERCHART Document Id: [id number] PRE COOLER documented in this encounter Miscellaneous Notes Miscellaneous - Jonathon Parker APRN, C.N.P. - 08/07/2012 10:25 AM CDT Results Notification Document Contains Addenda Addendum by DUC RUCKER on 12 August 2012 13:47:44 CAR PRE COOLER being treated From: JONATHON SKINNER DIGITAL MARKETING ASSISTANT To: DAVID Pascual Nurse Sent: 08/07/2012 10:25:36 CDT ! Show up: 08/07/2012 15:25:36 [facility] Subject: Results Notification Actions: Notify patient-refer to General Message Source: [facility] POWERCHART Document Id: [id number] Electronically signed by Nikos [facility] Pediatric Genetic Counselor [id number] at 03/09/2017 10:55 PM CDT Miscellaneous - Jonathon Parker APRN, C.N.P. - 08/01/2012 11:24 AM CDT Ambulatory Patient Summary [address] [place] [address] Visit Information Name: AINSLEY GANDHI Visit Date: 08/01/2012 11:24:00 Attending Provider: JONATHON SKINNER CNP Primary Care Provider: JONATHON SKINNER CNP AINSLEY GANDHI has been given the following list of medications: Your Medications It is important to take your medications as directed. Use a pill box or chart to help remind you to take your medications. Please let your doctor or nurse know if you have problems taking your medications. Medication/Strength Dose Route Frequency Indications/Special Instructions/Comments nitrofurantoin (Macrobid 100 mg oral capsule) 100 mg Oral two times a day for 7 Days *calcium-vitamin D (Calcium 600+D) 1 tab(s) Oral three times a day fluticasone-salmeterol (Advair HFA 115 mcg-21 mcg/inh inhalation aerosol with adapter) 2 puff(s) Inhalation two times a day aspirin (aspirin 81 mg [...] day ibuprofen (ibuprofen 200 mg oral tablet) * You have let us know that you are not taking this medication as listed. Please talk with your primary care provider or the health care provider who prescribed the medication as soon as possible. Attention: If you have any medications at home that are not on this list, DO NOT take them until youcontact your provider for clarification. Additional Information: Source: [facility] POWERCHART Document Id: [id number] Miscellaneous - Jonathon Parker APRN, C.N.P. - 08/01/2012 11:24 AM CDT Ambulatory Depart Summary [address] [address] Visit Information Name: AINSLEY GANDHI Visit Date: 08/01/2012 11:23:59 Attending Provider: JONATHON SKINNER CNP Primary Care Provider: JONATHON SKINNER [facility] AINSLEY GANDHIZABETH has been given the following list of medications: Your Medications It is important to take your medications as directed. Use a pill box or chart to help remind you to take your medications. Please let your doctor or nurse know if you have problems taking your medications. Medication/Strength Dose Route Frequency Indications/Special Instructions/Comments nitrofurantoin (Macrobid 100 mg oral capsule) 100 mg Oral two times a day for 7 Days *calcium-vitamin D (Calcium 600+D) 1 tab(s) Oral three times a day fluticasone-salmeterol (Advair HFA 115 mcg-21 mcg/inh inhalation aerosol with adapter) 2 puff(s) Inhalation two times a day aspirin (aspirin 81 mg [...] day ibuprofen (ibuprofen 200 mg oral tablet) * You have let us know that you are not taking this medication as listed. Please talk with your primary care provider or the health care provider who prescribed the medication as soon as possible. Attention: If you have any medications at home that are not on this list, DO NOT take them until youcontact your provider for clarification. Additional Information: Source: [facility] POWERCHART Document Id: [id number] Miscellaneous - Duc Ling L.P.N. - 08/01/2012 10:38 AM CDT Adult Sap Bods Developer Intake/History Adult Sap Bods Developer Intake/History Entered On: 08/01/2012 10:40 CDT Performed On: 08/01/2012 10:38 CDT by DUC RUCKER Intake Chief Complaint : uti Temperature Core : 37.0C(Converted to: 98.6DegF) Peripheral Pulse Rate : 72/min Respiratory Rate : 20/min Heart Rhythm : Regular BP Location : Right upper extremity Blood Pressure Cuff Size : Regular SpO2 : 97% Oxygen Therapy : Room air Height : 161.8cm(Converted to: 5ft 4inch(es), 63.70inch(es)) Actual Weight : 89.8kg(Converted to: 198lb 0oz) Weight Source : Standing scale Dosing Weight Clinic : 89.80kg Clinic BSA : 2.01 Body Mass Index : 34.30kg/m2 DUC RUCKER - 08/01/2012 10:38 CDT Subjective Pain Symptoms : No DUC RUCKER - 08/01/2012 10:38 CDT Dependent Habits Tobacco Use/Currently Using : No Exposure to Tobacco Smoke : Other: Never Smoked Smoking Status : Never smoker Alcohol Use : Yes DUC RUCKER - 08/01/2012 10:38 CDT Caffeine Use Grid Caffeine Use : Current Type : Coffee, Soft drinks Frequency : Daily Amount : 1 cup & 2 cans Last Use : yesterday after noon DUC RUCKER - 08/01/2012 10:38 CDT Recreational Drug Use Grid Drug Use : None DUC RUCKER - 08/01/2012 10:38 CDT Allergy Allergies (Active) Cats Estimated Onset [...] MD; Reviewed Date: 08/01/2012 10:35 CDT Source: [facility] Coridea Document Id: [id number] Miscellaneous - Duc Ling LAntwanPAntwanNAntwan - 08/01/2012 10:38 AM CDT Health Assessment Health Assessment Entered On: 08/01/2012 10:42 CDT Performed On: 08/01/2012 10:38 CDT by DUC RUCKER Health Assessment Complete Health Assessment Complete or Modified : Annual Health Assessment Annual Health Assessment Completed : Yes DUC RUCKER - 08/01/2012 10:38 CDT Nutrition Nutrition Risk Factors by History Adult : None Home Diet : Regular Meal Pattern : Breakfast everyday or most days, 2-3 meals per day Feeding Ability : Complete independence Eating Difficulties : None Appetite : Excellent ALKA DUC Cordova 08/01/2012 10:38 CDT Functional Living Situation : Home independently Current Daily Living Assistance : None OCEMILEE DUC Cordova 08/01/2012 10:38 CDT Dependent Habits Tobacco Use/Currently Using : No Exposure to Tobacco Smoke : Other: Never Smoked Smoking Status : Never smoker Alcohol Use : Yes DUC RUCKER 08/01/2012 10:38 CDT Caffeine Use Grid Caffeine Use : Current Type : Coffee, Soft drinks Frequency : Daily Amount : 1 cup & 2 cans Last Use : yesterday after noon DUC RUCKER 08/01/2012 10:38 CDT Recreational Drug Use Grid Drug Use : None DUC RUCKER 08/01/2012 10:38 CDT AUDIT Tool How Often Do You Have A Drink : 2 to 4 times a month How Many Drinks in a Day When Drinking : 3 or 4 Six or More Drinks On One Occassion : Never Audit Phase 1 Score : 3 DUC RUCKER 08/01/2012 10:38 CDT Psychosocial Domestic Abuse Concerns : None Marital Status : Number of Children : 1 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 Education : College Graduate Exercise Type : Aerobics, Walking, Weight training Exercise Duration per Session : 30-60 minutes Exercise Frequency : 2-3 times per week DUC RUCKER 08/01/2012 10:38 CDT Advance Directive Advanced Directives : No DUC RUCKER 08/01/2012 10:38 CDT Educ Needs Learning Style Preference Adult Grid Patient : Demonstration, Printed materials, Verbal explanation Family : None DUC RUCKER 08/01/2012 10:38 CDT Source: Digital Folio Document Id: [id number] documented in this encounter Plan of Treatment Not on filedocumented as of this encounter Procedures Procedure Name Priority Date/Time Associated Diagnosis Comme nts BACTERIAL CULTURE, Routine 08/01/2012 11:52 AM Re sults for this AEROBIC, URINE CDT procedure are in the results section. HX UA NITRITE POC Routine 08/01/2012 11:16 AM Res ults for this CDT procedure are i n the results section. HX UA NITRITE POC Routine 08/01/2012 11:16 AM Res ults for this CDT procedure are i n the results section. HX UA GLUCOSE POC Routine 08/01/2012 11:16 AM Res ults for this CDT procedure are i n the results section. HX UA GLUCOSE POC Routine 08/01/2012 11:16 AM Res ults for this CDT procedure are i n the results section. HX UA APPEAR POC Routine 08/01/2012 11:16 AM Resu lts for this CDT procedure are i n the results section. HX UA APPEAR POC Routine 08/01/2012 11:16 AM Resu lts for this CDT procedure are i n the results section. DIPSTICK, POCT, U Routine 08/01/2012 11:16 AM Res ults for this (DIPC1) CDT procedure are i n the results section. DIPSTICK, POCT, U Routine 08/01/2012 11:16 AM Res ults for this (DIPC1) CDT procedure are i n the results section. DIPSTICK, POCT, U Routine 08/01/2012 11:16 AM Res ults for this (DIPC1) CDT procedure are i n the results section. DIPSTICK, POCT, U Routine 08/01/2012 11:16 AM Res ults for this (DIPC1) CDT procedure are i n the results section. DIPSTICK, POCT, U Routine 08/01/2012 11:16 AM Res ults for this (DIPC1) CDT procedure are i n the results section. DIPSTICK, POCT, U Routine 08/01/2012 11:16 AM Res ults for this (DIPC1) CDT procedure are i n the results section. DIPSTICK, POCT, U Routine 08/01/2012 11:16 AM Res ults for this (DIPC1) CDT procedure are i n the results section. DIPSTICK, POCT, U Routine 08/01/2012 11:16 AM Res ults for this (DIPC1) CDT procedure are i n the results section. DIPSTICK, POCT, U Routine 08/01/2012 11:16 AM Res ults for this (DIPC1) CDT procedure are i n the results section. DIPSTICK, POCT, U Routine 08/01/2012 11:16 AM Res ults for this (DIPC1) CDT procedure are i n the results section. DIPSTICK, POCT, U Routine 08/01/2012 11:16 AM Res ults for this (DIPC1) CDT procedure are i n the results section. DIPSTICK, POCT, U Routine 08/01/2012 11:16 AM Res ults for this (DIPC1) CDT procedure are i n the results section. DIPSTICK, POCT, U Routine 08/01/2012 11:16 AM Res ults for this (DIPC1) CDT procedure are i n the results section. DIPSTICK, POCT, U Routine 08/01/2012 11:16 AM Res ults for this (DIPC1) CDT procedure are i n the results section. DIPSTICK, POCT, U Routine 08/01/2012 11:16 AM Res ults for this (DIPC1) CDT procedure are i n the results section. DIPSTICK, POCT, U Routine 08/01/2012 11:16 AM Res ults for this (DIPC1) CDT procedure are i n the results section. POCT KETONE, URINE Routine 08/01/2012 11:16 AM Re sults for this CDT procedure are i n the results section. POCT KETONE, URINE Routine 08/01/2012 11:16 AM Re sults for this CDT procedure are i n the results section. documented in this encounter Results Bacterial Culture, Aerobic, Urine (08/01/2012 11:52 AM CDT) [facility] gist Method Time Signature Bacterial POWERCHART Culture, Aerobic, Urine HXFinal See POWERCHART scanned/paper report. Test performed at [facility]. Specimen (Source) Anatomical Collection Method Collection Time Re ceived Time Location / / Volume Laterality Urine, Clean 08/01/2012 11:52 Catch AM CDT Jonathon Parker APRN, C.N.P., D.N.P. LAB MICROBIOLOGY - GENERAL ORDERABLES Performing Organization Address City/State/ZIP Code Phon e Number POWERCHART HX UA GLUCOSE POC (08/01/2012 11:16 AM CDT) P athologist Signature Glucose, POCT, Negative POWERCHART U Specimen (Source) Anatomical Collection Method Collection Time Re ceived Time Location / / Volume Laterality 08/01/2012 11:16 AM CDT Historical Provider LAB HISTORICAL ORDERS Performing Organization Address City/State/ZIP Code Phon e Number POWERCHART Dipstick, POCT, Urine (lab) (08/01/2012 11:16 AM CDT) P athologist Signature Bilirubin, 1+ Small POWERCHART POCT, U Specimen (Source) Anatomical Collection Method Collection Time Re ceived Time Location / / Volume Laterality 08/01/2012 11:16 AM CDT Historical Provider LAB POCT ORDERABLES - DEVICE Performing Organization Address City/State/ZIP Code Phon e Number POWERCHART Ketone, Urine, POCT (08/01/2012 11:16 AM CDT) P athologist Signature Ketone, POCT, Negative POWERCHART U Specimen (Source) Anatomical Collection Method Collection Time Re ceived Time Location / / Volume Laterality 08/01/2012 11:16 AM CDT Historical Provider LAB POCT ORDERABLES-MANUAL Performing Organization Address City/[facility]/ZIP Code Phon e Number POWERCHART Dipstick, POCT, Urine (lab) (08/01/2012 11:16 AM CDT) P athologist Signature Specific 1.030 POWERCHART [place], POCT, U Specimen (Source) Anatomical Collection Method Collection Time Re ceived Time Location / / Volume Laterality 08/01/2012 11:16 AM CDT Historical Provider LAB POCT ORDERABLES - DEVICE Performing Organization Address City/State/ZIP Code Phon e Number POWERCHART Dipstick, POCT, Urine (lab) (08/01/2012 11:16 AM CDT) P athologist Signature Blood, POCT, U 3+ LARGE POWERCHART Specimen (Source) Anatomical Collection Method Collection Time Re ceived Time Location / / Volume Laterality 08/01/2012 11:16 AM CDT Historical Provider LAB POCT ORDERABLES - DEVICE Performing Organization Address City/State/ZIP Code Phon e Number POWERCHART Dipstick, POCT, Urine (lab) (08/01/2012 11:16 AM CDT) P athologist Signature pH, POCT, Urine 6.0 POWERCHART Specimen (Source) Anatomical Collection Method Collection Time Re ceived Time Location / / Volume Laterality 08/01/2012 11:16 AM CDT Historical Provider LAB POCT ORDERABLES - DEVICE Performing Organization Address [facility]/ZIP Code Phon e Number POWERCHART Dipstick, POCT, Urine (lab) (08/01/2012 11:16 AM CDT) Analysis Performed At [facility] Time Signature Protein, POCT, 3+ (300 POWERCHART U mg/dl) Specimen (Source) Anatomical Collection Method Collection Time Re ceived Time Location / / Volume Laterality 08/01/2012 11:16 AM CDT Historical Provider LAB POCT ORDERABLES - DEVICE Performing Organization Address [facility]/ZIP Code Phon e Number POWERCHART Dipstick, POCT, Urine (lab) (08/01/2012 11:16 AM CDT) Analysis Performed At [facility] Time Signature Urobilinogen, 0.2 mg/dl POWERCHART POCT, Urine Specimen (Source) Anatomical Collection Method Collection Time Re ceived Time Location / / Volume Laterality 08/01/2012 11:16 AM CDT Historical Provider LAB POCT ORDERABLES - DEVICE Performing Organization Address City/[facility]/ZIP Code Phon e Number POWERCHART HX UA NITRITE POC (08/01/2012 11:16 AM CDT) P athologist Signature Nitrites, Negative POWERCHART POCT, U Specimen (Source) Anatomical Collection Method Collection Time Re ceived Time Location / / Volume Laterality 08/01/2012 11:16 AM CDT Historical Provider LAB HISTORICAL ORDERS Performing Organization Address City/State/ZIP Code Phon e Number POWERCHART Dipstick, POCT, Urine (lab) (08/01/2012 11:16 AM CDT) P athologist Signature Leukocytes, 3+ Large POWERCHART POCT, U Specimen (Source) Anatomical Collection Method Collection Time Re ceived Time Location / / Volume Laterality 08/01/2012 11:16 AM CDT Historical Provider LAB POCT ORDERABLES - DEVICE Performing Organization Address City/State/ZIP Code Phon e Number POWERCHART HX UA APPEAR POC (08/01/2012 11:16 AM CDT) P athologist Signature Appearance Cloudy POWERCHART Specimen (Source) Anatomical Collection Method Collection Time Re ceived Time Location / / Volume Laterality 08/01/2012 11:16 AM CDT Historical Provider LAB HISTORICAL ORDERS Performing Organization Address City/State/ZIP Code Phon e Number POWERCHART Dipstick, POCT, Urine (lab) (08/01/2012 11:16 AM CDT) P athologist Signature Color Yellow POWERCHART Specimen (Source) Anatomical Collection Method Collection Time Re ceived Time Location / / Volume Laterality 08/01/2012 11:16 AM CDT Historical Provider LAB POCT ORDERABLES - DEVICE Performing Organization Address City/[facility]/ZIP Code Phon e Number POWERCHART HX UA GLUCOSE POC (08/01/2012 11:16 AM CDT) P athologist Signature Glucose, POCT, Negative POWERCHART U Specimen (Source) Anatomical Collection Method Collection Time Re ceived Time Location / / Volume Laterality 08/01/2012 11:16 AM CDT Historical Provider LAB HISTORICAL ORDERS Performing Organization Address City/[facility]/ZIP Code Phon e Number POWERCHART Dipstick, POCT, Urine (lab) (08/01/2012 11:16 AM CDT) P athologist Signature Bilirubin, 1+ Small POWERCHART POCT, U Specimen (Source) Anatomical Collection Method Collection Time Re ceived Time Location / / Volume Laterality 08/01/2012 11:16 AM CDT Historical Provider LAB POCT ORDERABLES - DEVICE Performing Organization Address City/State/ZIP Code Phon e Number POWERCHART Ketone, Urine, POCT (08/01/2012 11:16 AM CDT) P athologist Signature Ketone, POCT, Negative POWERCHART U Specimen (Source) Anatomical Collection Method Collection Time Re ceived Time Location / / Volume Laterality 08/01/2012 11:16 AM CDT Historical Provider LAB POCT ORDERABLES-MANUAL Performing Organization Address City/State/ZIP Code Phon e Number POWERCHART Dipstick, POCT, Urine (lab) (08/01/2012 11:16 AM CDT) P athologist Signature Specific 1.030 POWERCHART [place], POCT, U Specimen (Source) Anatomical Collection Method Collection Time Re ceived Time Location / / Volume Laterality 08/01/2012 11:16 AM CDT Historical Provider LAB POCT ORDERABLES - DEVICE Performing Organization Address City/State/ZIP Code Phon e Number POWERCHART Dipstick, POCT, Urine (lab) (08/01/2012 11:16 AM CDT) athologist Signature Blood, POCT, U 3+ LARGE POWERCHART Specimen (Source) Anatomical Collection Method Collection Time Re ceived Time Location / / Volume Laterality 08/01/2012 11:16 AM CDT Historical Provider LAB POCT ORDERABLES - DEVICE Performing Organization Address [facility]/ZIP Code Phon e Number POWERCHART Dipstick, POCT, Urine (lab) (08/01/2012 11:16 AM CDT) athologist Signature pH, POCT, Urine 6.0 POWERCHART Specimen (Source) Anatomical Collection Method Collection Time Re ceived Time Location / / Volume Laterality 08/01/2012 11:16 AM CDT Historical Provider LAB POCT ORDERABLES - DEVICE Performing Organization Address [facility]/ZIP Code Phon e Number POWERCHART Dipstick, POCT, Urine (lab) (08/01/2012 11:16 AM CDT) Analysis Performed At Patho logist Time Signature Protein, POCT, 3+ (300 POWERCHART U mg/dl) Specimen (Source) Anatomical Collection Method Collection Time Re ceived Time Location / / Volume Laterality 08/01/2012 11:16 AM CDT Historical Provider LAB POCT ORDERABLES - DEVICE Performing Organization Address City/[facility]/ZIP Code Phon e Number POWERCHART Dipstick, POCT, Urine (lab) (08/01/2012 11:16 AM CDT) Analysis Performed At Patho logist Time Signature Urobilinogen, 0.2 mg/dl POWERCHART POCT, Urine Specimen (Source) Anatomical Collection Method Collection Time Re ceived Time Location / / Volume Laterality 08/01/2012 11:16 AM CDT Historical Provider LAB POCT ORDERABLES - DEVICE Performing Organization Address City/[facility]/ZIP Code Phon e Number POWERCHART HX UA NITRITE POC (08/01/2012 11:16 AM CDT) P athologist Signature Nitrites, Negative POWERCHART POCT, U Specimen (Source) Anatomical Collection Method Collection Time Re ceived Time Location / / Volume Laterality 08/01/2012 11:16 AM CDT Historical Provider LAB HISTORICAL ORDERS Performing Organization Address City/[facility]/ZIP Code Phon e Number POWERCHART Dipstick, POCT, Urine (lab) (08/01/2012 11:16 AM CDT) P athologist Signature Leukocytes, 3+ Large POWERCHART POCT, U Specimen (Source) Anatomical Collection Method Collection Time Re ceived Time Location / / Volume Laterality 08/01/2012 11:16 AM CDT Historical Provider LAB POCT ORDERABLES - DEVICE Performing Organization Address City/[facility]/ZIP Code Phon e Number POWERCHART HX UA APPEAR POC (08/01/2012 11:16 AM CDT) P athologist Signature Appearance Cloudy POWERCHART Specimen (Source) Anatomical Collection Method Collection Time Re ceived Time Location / / Volume Laterality 08/01/2012 11:16 AM CDT Historical Provider LAB HISTORICAL ORDERS Performing Organization Address City/[facility]/ZIP Code Phon e Number POWERCHART Dipstick, POCT, Urine (lab) (08/01/2012 11:16 AM CDT) P athologist Signature Color Yellow POWERCHART Specimen (Source) Anatomical Collection Method Collection Time Re ceived Time Location / / Volume Laterality 08/01/2012 11:16 AM CDT Historical Provider LAB POCT ORDERABLES - DEVICE Performing Organization Address City/[facility]/ZIP Code Phon e Number POWERCHART documented in this encounter Visit Diagnoses Not on filedocumented in this encounter
--- OUTSIDE RECORDS SUMMARY | 2022-07-10 08:23 | XMS_ITS | Encounter Summary ---
:1940 Author Organization [facility] Address [address] [place] [address] Care Team Providers Name Role Phone Unavailable Primary Care Provider Unavailable Encounter Details Date Type Department Care Team Description 09/12/2012 Hospital Encounter HX [facility] Srinivas Andrade M.D. [address] [place] [address] [phone] (Wo rk) Social History Tobacco [...] or slept in a assisted (including now)? Sex Assigned at Date Recorded [...] Miscellaneous - Elizabeth Parker APRN, C.N.P. - 09/14/2012 7:16 PM WARPING MACHINE OPERATOR Results Notification Document Contains Addenda Addendum by PIYUSH ALVAREZ on 16 September 2012 15:31:28 WARPING MACHINE OPERATOR Notified From: ELIZABETH POTTER CIRCULAR SAW EDGE FUSER To: DAVID Pascual Nurse Sent: 09/14/2012 19:16:56 WARPING MACHINE OPERATOR ! Show up: 09/15/2012 01:16:56 [facility] Subject: Results Notification Actions: Notify patient-refer to General Message Source: [facility] POWERCHART Document Id: [id number] Miscellaneous - Elizabeth Parker APRN, C.N.P. - 09/12/2012 11:55 AM WARPING MACHINE OPERATOR Results Notification Document Contains Addenda Addendum by PIYUSH ALVAREZ on 16 September 2012 15:18:41 WARPING MACHINE OPERATOR Spoke with patient. She will picking supervisor a paper copy of rx and is also requesting lab results to be printed. Will leave at the net front end developer for her to picking supervisor. Addendum by TITA CALDWELL on 15 September 2012 17:11:13 WARPING MACHINE OPERATOR Unable to reach faxed RX to [facility]. From: ELIZABETH POTTER CIRCULAR SAW EDGE FUSER To: DAIVD Pascual Nurse Sent: 09/12/2012 11:55:31 WARPING MACHINE OPERATOR ! Show up: 09/12/2012 17:55:31 [facility] Subject: Results Notification Actions: Notify patient-refer to General Message Source: [facility] POWERCHART Document Id: [id number] Electronically signed by Conversion, [facility] Body Make Up Artist [id number] at 03/10/2017 12:45 AM CDT documented in this encounter Plan of Treatment Not on filedocumented as of this encounter Procedures Procedure Name Priority Date/Time Associated Comments Diagnosis LIPID PANEL, S Routine 09/12/2012 9:36 Results fo r this AM WARPING MACHINE OPERATOR procedure are i n the results section. ASPARTATE Routine 09/12/2012 9:36 Results for this AMINOTRANSFERASE (AST), AM WARPING MACHINE OPERATOR proc edure are in S/P the results section. THYROID-STIMULATING Routine 09/12/2012 9:36 Resul ts for this HORMONE-SENSITIVE AM WARPING MACHINE OPERATOR procedure are in (S-TSH) the results section. BASIC METABOLIC PANEL, Routine 09/12/2012 9:36 Re sults for this S/P AM WARPING MACHINE OPERATOR procedure are i n the results section. documented in this encounter Results Thyroid-Stimulating Hormone-Sensitive (s-TSH) (09/12/2012 9:36 AM WARPING MACHINE OPERATOR) athologist Signature TSH, Sensitive 1.2 0.3 - 5.0 POWERCHART MIYENNY Comment: Test Performed by: [address] [address] Trust Manager: Michael marquis III, M.D. Specimen (Source) Anatomical Collection Method Collection Time Re ceived Time Location / / Volume Laterality Blood 09/12/2012 9:36 AM WARPING MACHINE OPERATOR Abelardo Bullock APRN.N.P., D.N.P. LAB BLOOD ADD-ON Performing Organization Address City/State/ZIP Code Phon e Number POWERCHART AST (Aspartate Aminotransferase) (09/12/2012 9:36 AM WARPING MACHINE OPERATOR) [facility] Method Time Signature Aspartate 24 8 - 43 POWERCHART Aminotransferase UNITL (AST), S Specimen (Source) Anatomical Collection Method Collection Time Re ceived Time Location / / Volume Laterality Blood 09/12/2012 9:36 AM WARPING MACHINE OPERATOR Abelardo Bullock APRN.N.P., D.N.P. LAB BLOOD ADD-ON Performing Organization Address City/State/ZIP Code Phon e Number POWERCHART (ABNORMAL) Lipid Panel (09/12/2012 9:36 AM WARPING MACHINE OPERATOR) [facility] Method Time Signature Cholesterol, Total 190 0 - 200 POWERCHART MGDL HX HDL 47.0 40.0 - POWERCHART 60.0 MGDL Triglycerides 124 0 - 150 POWERCHART MGDL Calculated LDL 118 (H) 0 - 100 POWERCHART MGDL Specimen (Source) Anatomical Collection Method Collection Time Re ceived Time Location / / Volume Laterality Blood 09/12/2012 9:36 AM WARPING MACHINE OPERATOR Elizabeth Parker APRN C.N.P., D.N.P. LAB BLOOD ADD-ON Performing Organization Address City/State/ZIP Code Phon e Number POWERCHART BMP (Basic Metabolic Panel) (09/12/2012 9:36 AM WARPING MACHINE OPERATOR) P athologist Signature BUN (Blood Urea 17 6 - 20 POWERCHART Nitrogen), S MGDL Creatinine 0.8 0.7 - 1.2 POWERCHART MGDL Potassium, S 3.7 3.5 - 4.8 POWERCHART MMOLL Sodium, S 141 135 - 145 POWERCHART MMOLL Chloride, S 101 100 - 108 POWERCHART MMOLL CO2 Total 29 22 - 29 POWERCHART MMOLL Calcium, Total, 9.9 8.5 - 10.5 POWERCHART S MGDL BUN/Creatinine 21 POWERCHART Ratio HXeGFR (MDRD) >60 MLMIN POWERCHART eGFR >60 MLMIN POWERCHART Black/ Glucose, 99 70 - 99 POWERCHART Fasting, S MGDL Specimen (Source) Anatomical Collection Method Collection Time Re ceived Time Location / / Volume Laterality Blood 09/12/2012 9:36 AM WARPING MACHINE OPERATOR Elizabeth Parker APRN, C.N.P., D.N.P. LAB BLOOD ADD-ON Performing Organization Address City/State/ZIP Code Phon e Number POWERCHART documented in this encounter Visit Diagnoses Not on filedocumented in this encounter
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
--- OUTSIDE RECORDS SUMMARY | 2022-07-10 08:24 | XMS_ITS | Encounter Summary ---
:1940 Author Organization [facility] Address [address] [place] [address] Care Team Providers Name Role Phone Unavailable Primary Care Provider Unavailable Encounter Details Date Type Department Care Team Description 06/18/2003 Hospital Encounter HX NO MAPPING Social History Tobacco Use Types Packs/Day Years [...] More than 4 times per year 03/16/2022 orthodoxy services? Do you belong to any clubs [...] Name Priority Date/Time Associated Diagnosis Comme nts FL COLON SINGLE Routine 06/18/2003 1:26 PM Result s for this CONTRAST CDT procedure are i n the results section. documented in this encounter Results FL Colon Single Contrast (06/18/2003 1:26 PM CDT) Anatomical Region Laterality Modality Gastro Intestinal N/A Radiographic Imaging Specimen (Source) Anatomical Collection Method Collection Time Re ceived Time Location / / Volume Laterality 06/18/2003 1:26 PM CDT Narrative 06/18/2003 1:56 PM CDT 18-Jun-2003 13:26:00 ??Exam: [id number]-[id number] Indications: screening ORIGINAL REPORT - 18-Jun-2003 13:56:00 Diverticulosis. ??Patulous ileocecal nicolas ve. ??Otherwise normal colon and terminal ileum. Electronically signed by: ?? Mely Lyon MD, [phone] 18-Jun-2003 13:56 ?Nisha Gudino ?? [phone] 18-Jun-2003 13:56 Procedure Note Tommy Gudino M.D. - 01/14/2018Formattin g of this note might be different from the original. 18-Jun-2003 13:26:00 Exam: [id number] nostic Indications: screening ORIGINAL REPORT - 18-Jun-2003 13:56:00 Diverticulosis. Patulous ileocecal valve . Otherwise normal colon and terminal ileum. Electronically signed by: Mely Lyon MD, [phone] 18-Jun-2003 13:56 Nisha Gudino MD [phone] 18-Jun-2003 13:56 Anusha Pacheco APRN, C.N.P., D.N.P. IMG FLUOROSCOPY PRO CEDURES documented in this encounter Visit Diagnoses Not on filedocumented in this encounter
--- OUTSIDE RECORDS SUMMARY | 2022-07-10 08:24 | XMS_ITS | Encounter Summary ---
:1940 Author Organization [facility] Address [address] [place] [address] Care Team Providers Name Role Phone Unavailable Primary Care Provider Unavailable Encounter Details Date Type Department Care Team Description 04/13/2011 Hospital Encounter [facility]X [facility] Tino Horn P.A.-C. [address] [place] [address] (Wo rk) Social History Tobacco [...] documented as of this encounter Progress Notes Apolonia Horn P.A.-C. - 04/13/2011 12:00 AM CDT [id number] CHIEF COMPLAINT/REASON FOR VISIT Followup of her lesion removal from her right leg. HISTORY OF PRESENT ILLNESS Ainsley is a very pleasant 70-year-old female. I removed a lesion from her right lower leg nine days ago and she comes in today for suture removal. Dermatopathology showed an irritated seborrheic keratosis. VITAL SIGNS Noted in the electronic medical record. PHYSICAL EXAM AREA EXAM TEXT GENERAL SKIN This incision site is healing very nicely. I removed the simple sutures today. There are no signs of infection. I covered her with an antibiotic ointment and did close is tight with Steri-Strips. IMPRESSION/REPORT/PLAN 1. Irritated seborrheic keratosis. Plan: At this time she needs no further followup. I told her to leave the Steri-Strips on for a couple days. As they start to come off on their own she can help peel them off. If she has any questions or any problems in the meantime, she will let us know. Otherwise, will have her followup as needed. CEASAR/corey Signed [facility] Electronically Signed By: APOLONIA HORN PA-C On: 04/16/2011 01:24 PM Source[facility] Document Id: [id number] documented in this encounter Miscellaneous Notes Miscellaneous - Apolonia Horn P.A.-C. - 04/13/2011 9:39 AM CDT Ambulatory Patient Summary [address] [address] Visit Information Name: AINSLEY GANDHI Current Date: 04/13/2011 09:39:25 Primary Care Provider: APOLONIA HORN PA-C Your Medications Here is a list of your medications. It is important to take your medications as directed. Use a pillbox or chart to help remind you to take your medications. Please let your doctor or nurse know if you have problems taking your medications. Medication/Strength Dose Route Frequency Indications/Special Instructions/Comments fluticasone nasal (Flonase 0.05 mg/inh nasal spray) 2 spray(s) Nostrils(Both) once a day lisinopril (lisinopril 20 mg oral tablet) 20 mg Oral once a day albuterol (albuterol CFC free 90 mcg/inh inhalation aerosol with adapter) 2 puff(s) Inhalation every4 hours as needed for Shortness of breath / Wheezing chlorthalidone (chlorthalidone 25 mg oral tablet) 25 mg Oral once a day levothyroxine (Synthroid 75 mcg (0.075 mg) oral tablet) 75 mcg Oral once a day pravastatin (Pravachol 40 mg oral tablet) 40 mg Oral once a day loratadine (Claritin 10 mg oral tablet) 1 tab(s) Oral once a day as needed for Allergy symptoms budesonide-formoterol (Symbicort 160/4.5 inhalation aerosol with adapter) 2 puff(s) Inhalation two times a day atenolol (atenolol 25 mg oral tablet) 25 mg Oral once a day omega-3 polyunsaturated fatty acids (Fish Oil oral capsule) three times a day triamcinolone topical (triamcinolone topical 0.1% cream) 1 keiry Topical three times a day benzonatate (Tessalon Perles 100 mg oral capsule) 1 cap(s) Oral three times a day ibuprofen (ibuprofen 200 mg oral tablet) aspirin (aspirin 81 mg oral enteric coated tablet) Your Allergies & Intolerances Substance Reaction Symptoms Category Comments prochlorperazine unknown Drug Dust Mite Drug Cats unknown Other Your Problem List Problem Status Onset Comments Hypertension Essential, Benign Active Hypothyroidism (acquired) Active Fibrocystic breast changes Active Asthma, Instrinsic, unspecified Active Malignant neoplasm of skin of cheek, external Active Hyperlipidemia Active Your Recommendations We want to make [...] Test/Treatment Last Done Next Due Additional Information Screening Bone Density Once Women greater than age 64 04/13/2011 Checks for bone loss and osteoporosis. Screening Colonoscopy or Flex Sig or Occult Blood X3 08/18/2009 08/16/2019 Checks for signs of cancer of the colon. Screening Mammogram every 1 year Women 40-75 09/07/2010 09/07/2011 X-rays of breast to check for breast cancer. Lipid Panel every 5 years Age 20-75 08/23/2010 08/22/2015 Checks blood for good (HDL) and bad (LDL) cholesterol. Know your numbers, they are one indicator of your risk for heart attack and stroke. Vaccine: Flu every 1 year 08/23/2010 08/23/2011 Immunization to help prevent you from getting [...] No Appointments found Your Goals/Additional instructions: Source: [facility] POWERCHART Document Id: [id number] Miscellaneous - Apolonia Horn P.A.-C. - 04/13/2011 9:39 AM CDT Ambulatory Depart Summary [address] [address] Visit Information Name: AINSLEY GANDHI Current Date: 04/13/2011 09:39:24 Primary Care Provider: APOLONIA HORN PA-C AINSLEY GANDHI has been given the following list of medications: Your Medications It is important to take your medications as directed. Use a pill box or chart to help remind you to take your medications. Please let your doctor or nurse know if you have problems taking your medications. Medication/Strength Dose Route Frequency Indications/Special Instructions/Comments fluticasone nasal (Flonase 0.05 mg/inh nasal spray) 2 spray(s) Nostrils(Both) once a day lisinopril (lisinopril 20 mg oral tablet) 20 mg Oral once a day albuterol (albuterol CFC free 90 mcg/inh inhalation aerosol with adapter) 2 puff(s) Inhalation every4 hours as needed for Shortness of breath / Wheezing chlorthalidone (chlorthalidone 25 mg oral tablet) 25 mg Oral once a day levothyroxine (Synthroid 75 mcg (0.075 mg) oral tablet) 75 mcg Oral once a day pravastatin (Pravachol 40 mg oral tablet) 40 mg Oral once a day loratadine (Claritin 10 mg oral tablet) 1 tab(s) Oral once a day as needed for Allergy symptoms budesonide-formoterol (Symbicort 160/4.5 inhalation aerosol with adapter) 2 puff(s) Inhalation two times a day atenolol (atenolol 25 mg oral tablet) 25 mg Oral once a day omega-3 polyunsaturated fatty acids (Fish Oil oral capsule) three times a day triamcinolone topical (triamcinolone topical 0.1% cream) 1 keiry Topical three times a day benzonatate (Tessalon Perles 100 mg oral capsule) 1 cap(s) Oral three times a day ibuprofen (ibuprofen 200 mg oral tablet) aspirin (aspirin 81 mg oral enteric coated tablet) Additional Information: Yes - Current list of reconciled medications is provided and explained to the patient and/or family, guardian/caregiver. Source: [facility] POWER[facility]ART Document Id: [id number] Electronically signed by Conversion, [facility] Cell Plasterer [id number] at 03/10/2017 3:00 PM CDT Miscellaneous - Conversion, Historical Provider Ser - 04/13/2011 9:14 AM CDT Adult Slider Assembler Intake/History Adult Slider Assembler Intake/History Entered On: 04/13/2011 9:19 CDT Performed On: 04/13/2011 9:14 CDT by KVNG PAULINO LPN Intake Chief Complaint: Suture removal leg & F/U Temperature Core: 36.9C(Converted to: 98.4DegF) Peripheral Pulse Rate: 60/min Respiratory Rate: 16/min Systolic Blood Pressure: 114mmHg Diastolic Blood Pressure: 66mmHg NIBP Mean: 82mmHg BP Location: Right upper extremity Heart Rhythm: Regular Actual Weight: 85.636kg(Converted to: 188lb 13oz) Weight Source: Standing scale Dosing Weight Clinic: 85.64kg KVNG PAULINO LPN - 04/13/2011 9:14 CDT Subjective Pain Symptoms: No KVNG PAULINO LPN - 04/13/2011 9:14 CDT Dependent Habits Tobacco Use/Currently Using: No Tobacco Use/Last 12 months: No Alcohol Use: Yes KVNG PAULINO LPN - 04/13/2011 9:14 CDT Caffeine Use Grid Caffeine Use: Current Type: Coffee, Soft drinks Frequency: Daily Amount: 1 cup & 2 cans Last Use: this morning KVNG PAULINO LPN - 04/13/2011 9:14 CDT Recreational Drug Use Grid Drug Use: None KVNG PAULINO LPN - 04/13/2011 9:14 CDT Allergy Allergies (Active) Cats Estimated Onset [...] MD; Reviewed Date: 04/13/2011 9:12 CDT Source: [facility] Document Id: [id number] CDT!30 documented in this encounter Plan of Treatment Not on filedocumented as of this encounter Visit Diagnoses Not on filedocumented in this encounter
--- OUTSIDE RECORDS SUMMARY | 2022-07-10 08:24 | XMS_ITS | Encounter Summary ---
:1940 Author Organization [facility] Address [address] [place] [address] Care Team Providers Name Role Phone Unavailable Primary Care Provider Unavailable Encounter Details Date Type Department Care Team Description 02/05/2011 Hospital Encounter HX [facility] Michelle Chi, C.N.P., R.N. Social History Tobacco Use Types Packs/Day Years [...] documented as of this encounter Progress Notes Michelle Chi C.N.P. - 02/05/2011 12:00 AM CDT [id number] IMPRESSION/REPORT/PLAN 1. Asthma. ACT score today is an 11. I did review asthma action plan with her today and she will continue on her Prednisone up through 7 days. She will follow up if gets worse with wheezing or shortness of breath. She will also follow up in one month either here or with her primary at [facility] for recheck of her asthma and to update her ACT score since it is so low. 2. Allergic rhinitis. Will have her takes Claritin on a continued daily basis as well as Flonase nasal spray which she is fairly certain that she has at home and that would be two sprays each nostril once a day. She follow up if she is getting worse or if not getting better and certainly if she develops fever or chills, she will follow up as well. CHIEF COMPLAINT/REASON FOR VISIT Asthma HISTORY OF PRESENT ILLNESS Elise is a 70 year old female that comes to the clinic today for a check up after an asthma flare up. She was recently in the [facility] with her son who has cats and she did get what she calls an asthma flare. She started prednisone 20 mg daily and is currently on day 6 of that. She will continue for one more day per the recommendation of her physician at [facility]. She is also continuing to use Albuterol as well. She does [facility] for her primary care and for her asthma actions plans. She does report a night time cough and significant sneezing and runny nose clear discharge. She is currently taken Symbicort and has been for quite some time. Her ACT have been normal for her and she has rarely used her Albuterol inhaler the past years. She has not had any fever or chills or other concerns. CURRENT MEDICATIONS Post-visit Medication Reconciliation Reviewed per Powerchart 1. Albuterol two puffs q4hrs PRN 2. Aspirin 81 mg daily 3. Atenolol 25 mg one daily 4. Chlorthalidone 25 mg one tab. 5. Claritin 10 mg one daily 6. Fish oil cap t.i.d. 7. Ibuprofen PRN 8. Lisinopril 20 mg one daily 9. Pravachol 40 mg one daily 10. Symbicort 160/4.5 inhalation aerosol two puffs b.i.d. 11. Synthroid 75 mcg one daily 12. Tessalon Perles 100 mg daily t.i.d. PRN 13. Triamcinolone topical t.i.d. PRN ALLERGIES Reviewed per Powerchart Cats, dust mites and prochlorperazine SYSTEMS REVIEW Otherwise negative PAST MEDICAL/SURGICAL HISTORY Reviewed per Powerchart 1. Asthma 2. Fibrocystic breast changes 3. Hyperlipidemia 4. Hypertension 5. Hypothyroidism 6. Malignant neoplasm of the skin PREVENTIVE SERVICES Age 70 Tobacco use: None Mammogram: 09/07/10 Colon screenin08/18/09 Asthma: yes, action plan and ACT done today Lipids: 08/23/10 Tdap booster: 07/25/07 Pneumovax: 09/15/08 Shingles 07/26/09 Influenza: 08/23/10 VITAL SIGNS DATE/TIME 02/05/2011 WEIGHT 85.4 kg TEMPERATURE 37.1 degreesC RESP RATE 16/ min PULSE 56 SYSTOLIC 110 DIASTOLIC 70 PHYSICAL EXAM AREA EXAM TEXT GENERAL Mildly overweight female in no acute distress. SKIN Warm, dry and pink. HEAD Normocephalic. No areas of tenderness. EYES Conjunctiva clear. Sclera white. No drainage. ENT Tympanic membranes intact, loco, shiny and light reflex present. No effusions. Nasal mucosa pink and boggy with clear nasal drainage noted. Posterior pharynx pink. Tonsils 1+ without exudates or lesions. LYMPH NODES No cervical lymphadenopathy. HEART Regular rate and rhythm. No murmurs, rubs or gallops. Normal S1 and S2 heart sounds. LUNGS O2 sat is 98% on room air. Clear to auscultation bilaterally. ABDOMEN Flat, soft and nondistended. No hepatosplenomegaly or masses. No tenderness. EXTREMITIES Warm, dry without peripheral edema. MENTAL Alert and oriented to person, place and time. NLP/cmt Signed Michelle Cordova. Michele Gould DNP, CNP Family Nurse Practitioner Electronically Signed By: MICHELLE CHI CNP On: 02/08/2011 08:21 Source: [facility] Document Id: [id number] documented in this encounter Miscellaneous Notes Miscellaneous - Michelle Chi C.N.P. - 02/05/2011 4:39 PM CDT Quality Measures Quality Measures Entered On: 02/05/2011 16:39 CDT Performed On: 02/05/2011 16:39 CDT by MICHELLE CHI CNP Asthma Asthma Control Test (ACT) Score: 11 Asthma Action Plan Provided/Reviewed: Provided to the patient Asthma Action Plan Copy: Scanned into EMR MICHELLE CHI CNP - 02/05/2011 16:39 CDT Source: [facility] POWERCHART Document Id: [id number] CDT!5 Miscellaneous - Michelle Chi C.N.P. - 02/05/2011 4:32 PM CDT Ambulatory Patient Summary [address] [address] Visit Information Name: ELISE GANDHI Current Date: 02/05/2011 16:32:15 Primary Care Provider: MICHELLE CHI CNP Your Medications Here is a list of your medications. It is important to take your medications as directed. Use a pillbox or chart to help remind you to take your medications. Please let your doctor or nurse know if you have problems taking your medications. Medication/Strength Dose Route Frequency Indications/Special Instructions/Comments lisinopril (lisinopril 20 mg oral tablet) 20 [...] Density Once Women greater than age 64 02/05/2011 Checks for bone loss and osteoporosis. Screening Colonoscopy or Flex Sig or Barium Enema or Occult Blood X3 08/18/2009 08/16/2019 Checks [...] No Appointments found Your Goals/Additional instructions: Source: [facility] POWERCHART Document Id: [id number] Miscellaneous - Michelle Chi, C.N.P. - 02/05/2011 4:32 PM CDT Ambulatory Depart Summary [address] [address] Visit Information Name: ELISE GANDHI Current Date: 02/05/2011 16:32:14 Primary Care Provider: MICHELLE CHI [facility] ELISE GANDHI has been given the following list of medications: Your Medications It is important to take your medications as directed. Use a pill box or chart to help remind you to take your medications. Please let your doctor or nurse know if you have problems taking your medications. Medication/Strength Dose Route Frequency Indications/Special Instructions/Comments lisinopril (lisinopril 20 mg oral tablet) 20 [...] mg oral enteric coated tablet) Additional Information: follow up if worse. or if not getting better. either follow up at [facility] or here in one month for recheck of the asthma action plan. Yes - Current list of reconciled medications is provided and explained to the patient and/or family, guardian/caregiver. Source: [facility] POWERCHART Document Id: [id number] Miscellaneous - Conversion, Historical Provider Ser - 02/05/2011 4:00 PM CDT Adult 3D Designer Intake/History Adult 3D Designer Intake/History Entered On: 02/05/2011 16:05 CDT Performed On: 02/05/2011 16:00 CDT by KVNG PAULINO LPN Intake Chief Complaint: Asthma attack - taking predinsone for 1 week Temperature Core: 37.1C(Converted to: 98.8DegF) Peripheral Pulse Rate: 56/min (LOW) Respiratory Rate: 16/min Systolic Blood Pressure: 110mmHg Diastolic Blood Pressure: 70mmHg NIBP Mean: 83mmHg BP Location: Left upper extremity SpO2: 98% Heart Rhythm: Regular Oxygen Therapy: Room air Actual Weight: 85.400kg(Converted to: 188lb 4oz) Weight Source: Standing scale Dosing Weight Clinic: 85.40kg KVNG PAULINO LPN - 02/05/2011 16:00 CDT Subjective Pain Symptoms: No Respiratory Symptoms: Cough, Shortness of breath, Wheezing KVNG PAULINO LPN - 02/05/2011 16:00 CDT Dependent Habits Tobacco Use/Currently Using: No Tobacco Use/Last 12 months: No Alcohol Use: Yes KVNG PAULINO LPN - 02/05/2011 16:00 CDT Caffeine Use Grid Caffeine Use: Current Type: Coffee, Soft drinks Frequency: Daily Amount: 1 cup & 2 cans Last Use: about 2:30 pm KVNG PAULINO LPN 02/05/2011 16:00 CDT Recreational Drug Use Grid Drug Use: None KVNG PAULINO LPN 02/05/2011 16:00 CDT Allergy Allergies (Active) Cats Estimated Onset Date: Unspecified ; Reactions: unknown ; Created By: PHILLIP JARAMILLO MD; Reaction Status: Active ; Category: Other ; Substance: Cats ; Type: Allergy ; Updated By: PHILLIP JARAMILLO; Reviewed Date: 02/05/2011 15:57 CDT Dust Mite Estimated Onset Date: Unspecified ; Created By: KVNG PAULINO LPN; Reaction Status: Active ; Category: Drug ; Substance: Dust Mite ; Type: Allergy ; Updated By: KVNG PAULINO LPN; Reviewed Date: 02/05/2011 15:57 CDT prochlorperazine Estimated Onset Date: Unspecified ; Reactions: unknown ; Created By: BRAD JARAMILLO MD; Reaction Status: Active ; Category: Drug ; Substance: prochlorperazine ; Type: Allergy ; Updated By: PHILLIP JARAMILLO MD; Reviewed Date: 02/05/2011 15:57 CDT [facility] Document Id: [id number] CDT!33 documented in this encounter Plan of Treatment Not on filedocumented as of this encounter Visit Diagnoses Not on filedocumented in this encounter
--- OUTSIDE RECORDS SUMMARY | 2022-07-10 08:24 | XMS_ITS | Encounter Summary ---
:1940 Author Organization [facility] Address [address] [place] [address] Care Team Providers Name Role Phone Unavailable Primary Care Provider Unavailable Encounter Details Date Type Department Care Team Description 08/23/2010 Hospital Encounter HX [facility] Michelle [...] encounter Progress Notes Michelle Chi C.N.P. - 08/23/2010 12:00 AM CST [id number] IMPRESSION/REPORT/PLAN 1. Physical exam satisfactory. Will schedule fro screening mammogram and screening dermatology appointment down at [facility]. She was given a flu shot today. 2. Hypertension 3. Hyperlipidemia 4. Hypothyroidism. TSH, lipid panel and comprehensive panel pending. Will continue her medications of atenolol, Lisinopril, chlorthalidone, levothyroxine and Pravachol. Those will be renewed today. 5. Asthma. ACT 23 done at [facility] August 21, 2010. The patient is on Symbicort and Albuterol. She will follow up as needed. Asthma action plan was given to her at that visit at [facility] and she has no questions or concerns. Patient will follow up as needed. CHIEF COMPLAINT/REASON FOR VISIT Physical and refill of chronic illness medications HISTORY OF PRESENT ILLNESS Elise is a 69 year old female that comes to the clinic today by herself for a physical exam. She needs refills on her chronic illness medications. She has a history of asthma and was seen in [place] for a recheck of that earlier this week. They changed her medicines from Flovent to Symbicort based upon pulmonary function testing. She offers no complaints. She has a history of hypertension, hypolipidemia, and hypothyroidism. She takes medicines for all three and has no complaints. She has no dizziness or weakness. No muscle aches or excessive fatigue. CURRENT MEDICATIONS Post-visit Medication Reconciliation Reviewed per Powerchart 1. Albuterol inhaler two puffs q4hrs PRN 2. Aspirin 81 mg daily 3. Atenolol 25 mg one daily 4. Chlorthalidone 25 mg daily 5. Fish oil cap t.i.d. 6. Claritin 10 mg one daily 7. Ibuprofen PRN 8. Lisinopril 20 mg one tab daily 9. Pravachol 40 mg one tab daily 10. Symbicort 160/4.5 inhaler two puffs quite daily 11. Synthroid 75 micrograms one daily 12. Tessalon Perles 100 mg PRN 13. Triamcinolone cream PRN ALLERGIES Reviewed per Powerchart Cats, dust mites and Prochlorperazine SYSTEMS REVIEW Otherwise negative PAST MEDICAL/SURGICAL HISTORY Reviewed per Powerchart 1. Asthma 2. Fibrocystic breast changes 3. Hyperlipidemia 4. Hypertension 5. Hyperthyroidism 6. History of skin cancer on her face Surgical history: Abdominal hysterectomy, cataract removal and neuroma PREVENTIVE SERVICES Tobacco use: None Mammogram: Will be scheduled Pap smear: N/A Colon screenin08/18/09 at [facility] Depression: No Asthma: Yes. ACT score of 23 Lipids: 09/14 Tdap booster: 07/25/07 Pneumovax: 09/15/08 Influenza: Will done today VITAL SIGNS DATE/TIME 08/23/2010 WEIGHT 84.8 kg TEMPERATURE [id number] BMI 32 RESP RATE 18/ min PULSE 72 SYSTOLIC 118 DIASTOLIC 78 PHYSICAL EXAM AREA EXAM TEXT GENERAL Well appearing female in no acute distress. Grooming and hygiene appropriate. SKIN Warm, dry and pink. No rashes, lesions or bruising. No clubbing or cyanosis of nailbeds. HEAD Normocephalic. No tenderness to palpation. TMJ movements symmetrical and smooth. No clicks or pains. No maxillary or frontal sinus tenderness. EYES Conjunctiva clear. Sclera white. PERRLA. Peripheral vision intact. No nystagmus or lid lag. Optic discs round with clear margins. No lesions or hemorrhages. Red reflex present bilaterally. ENT Tympanic membranes intact, loco and shiny bilaterally with light reflex present. No effusions. Nasal mucosa pink and moist. Septum midline. Posterior pharynx pink. No lesions or exudates. Tonsils 1+. Uvula and tongue midline. Buccal mucosa pink. No lesions. LYMPH NODES Neck supple. Trachea midline. No lymphadenopathy. No masses or tenderness. No JVD. THYROID No thyromegaly. No tenderness with palpation. BREASTS No lumps or masses. No galactorrhea. Breasts symmetrical. No lesions, inflammation or dimpling. PERIPHERAL Radial, femoral, popliteal, posterior tibial and dorsalis pedis VESSELS 2+ equal bilaterally. HEART Heart regular rate and rhythm. No murmurs, rub or gallop. Normal S1 and S2 heart sounds PMI fifth ICS, MCL. LUNGS Chest expansion symmetrical. Lungs clear and equal bilaterally. ABDOMEN Soft, flat and symmetrical. No scars or striae. Bowel sounds present times four quadrants. No bruits. No hepatosplenomegaly. No masses felt or tenderness with palpation. PELVIS No pain with range of motion. GENITALIA FEMALE: External genitalia appropriate for age. No swelling, lesions or discharge noted from Bartholin's, Storden's or urethra. Bimanual exam performed. No CMT. No uterine enlargement or masses. Ovaries not palpated. No adnexal tenderness. SPINE Straight erect posture. Full range of motion with flexion, extension, lateral bending and backward bending. No tenderness along cervical, thoracic or lumbar spine or paravertebral muscles. JOINTS Full range of motion in all joints without limitations. Movements smooth and symmetric. No crepitus or tenderness. EXTREMITIES Warm and dry without peripheral edema or varicosities. Muscle strength equal bilaterally and nontender. GAIT Steady and even. Coordinated movements. MENTAL Alert and oriented to person, place and time. NEURO Negative Romberg. Sharp dull sensation intact. Triceps, biceps, brachioradialis, patellar and ankle reflexes 2+. NLP/cmt Signed Michelle Gould RN, IVORY CARVER Family Nurse Practitioner Electronically Signed By:MICHELLE CHI CNP On 08/25/2010 11:13 AM Source: [facility] MHSDOLBEYNONRADSYS Document Id: [id number] K SUPERVISOR documented in this encounter Nursing Notes Conversion, Historical Provider Ser - 09/08/2010 2:33 PM CST mammogram results from [facility] Called patient - informed of normal mammogram results. Electronically Signed By:KVNG PAULINO LPN On 09/08/2010 02:34 pm Source: [facility] POWERCHART Document Id: [id number] Michelle Chi C.N.P. - 08/23/2010 9:40 AM CST Asthma Assessment Asthma Assessment Entered On: 08/23/2010 9:41 STACK SUPERVISOR Performed On: 08/23/2010 9:40 STACK SUPERVISOR by MICHELLE CHI CNP History Co-Morbidities Asthma: Allergic rhinitis, Obesity, Sinusitis ED visits past yr for asthma w/o hospital stay: 0 Hospitalizations/Overnight Stays in Past yr for Asthma: 0 Number of Endotracheal Intubations: 0 B-2 Agonist Use: None Severity Classification: Mild Intermittent MICHELLE CHI CNP - 08/23/2010 9:40 STACK SUPERVISOR Asthma Precipitating Factors Grid Airborne Particles: Yes Animals: Yes House Dust: Yes Mold: Yes Upper Respiratory Infection: Yes MICHELLE CHI CNP - 08/23/2010 9:40 STACK SUPERVISOR Source: [employer] Document Id: [id number] STACK SUPERVISOR!14 K SUPERVISOR documented in this encounter Miscellaneous Notes Miscellaneous - Michelle Chi C.N.P. - 08/23/2010 9:41 AM CST Quality Measures Quality Measures Entered On: 08/23/2010 9:42 STACK SUPERVISOR Performed On: 08/23/2010 9:41 STACK SUPERVISOR by MICHELLE CHI CNP BP/Tobacco/Misc Systolic Blood Pressure: 118mmHg Diastolic Blood Pressure: 78mmHg Tobacco Use/Currently Using: No Tobacco Use/Last 12 months: No MICHELLE CHI CNP - 08/23/2010 9:41 STACK SUPERVISOR Asthma Asthma Control Test (ACT) Score: 23 Asthma Action Plan Provided/Reviewed: Reviewed with the patient Asthma Action Plan Copy: Other: in [facility] chart from Aug 21, 2010 MICHELLE CHI CNP - 08/23/2010 9:41 STACK SUPERVISOR Source: [employer] Document Id: [id number] STACK SUPERVISOR!10 K SUPERVISOR Miscellaneous - Michelle Chi C.N.P. - 08/23/2010 9:04 AM CST Ambulatory Patient Summary [address] [address] Visit Information Name: ELISE GANDHI Current Date: 08/23/2010 09:04:21 Primary Care Provider: [facility] Your Medications Here is a list [...] Density Once Women greater than age 64 Completed Checks for bone loss and osteoporosis. Screening Colonoscopy or Flex Sig or Barium Enema or Occult Blood X3 08/18/2009 08/16/2019 Checks for signs of cancer of the colon. Screening Mammogram every 1 year Women 40-75 08/23/2010 X-rays of breast to check for breast cancer. Vaccine: Flu every 1 year 08/23/2010 08/23/2011 [...] No Appointments found Your Goals/Additional instructions: Source: [facility] POWERCHART Document Id: [id number] Electronically signed by Conversion, [facility] Aquatic Life Laborer [id number] at 03/11/2017 4:13 AM CDT Miscellaneous - Michelle Chi, C.N.P. - 08/23/2010 9:04 AM CST Ambulatory Depart Summary [address] [address] Visit Information Name: ELISE GANDHI Current Date: 08/23/2010 09:04:20 Primary Care Provider: MICHELLE CHI [facility] ARNOL GARCIA ELISE GAVIRIA has been given the following list [...] enteric coated tablet) Additional Information: follow up as needed. Yes - Current list of reconciled medications is provided and explained to the patient and/or family, guardian/caregiver. Source: [facility] POWERCHART Document Id: [id number] Electronically signed by Nikos, [facility] Aquatic Life Laborer [id number] at 03/11/2017 4:13 AM CDT Miscellaneous - Conversion, Historical Provider Ser - 08/23/2010 8:18 AM STACK SUPERVISOR Ambulatory Vitals Height Weight Ambulatory Vitals Height Weight Entered On: 08/23/2010 8:20 STACK SUPERVISOR Performed On: 08/23/2010 8:18 STACK SUPERVISOR by KVNG PAULINO LPN Vitals/Ht/Wt Systolic Blood Pressure: 118mmHg Diastolic Blood Pressure: 78mmHg NIBP Mean: 91mmHg BP Location: Right upper extremity KVNG PAULINO LPN - 08/23/2010 8:18 STACK SUPERVISOR Source: [facility] POWERCHART Document Id: [id number] STACK SUPERVISOR!6 Miscellaneous - Conversion, Historical Provider Ser - 08/23/2010 8:14 AM STACK SUPERVISOR Adult Senior Marketing Data Analyst Intake/History Adult Senior Marketing Data Analyst Intake/History Entered On: 08/23/2010 8:18 STACK SUPERVISOR Performed On: 08/23/2010 8:14 STACK SUPERVISOR by KVNG PAULINO LPN Intake Chief Complaint: Needs labs & mammogram Temperature Core: 36.8C(Converted to: 98.2DegF) Peripheral Pulse Rate: 72/min Respiratory Rate: 18/min Systolic Blood Pressure: 132mmHg Diastolic Blood Pressure: 82mmHg NIBP Mean: 99mmHg BP Location: Right upper extremity Heart Rhythm: Regular Height: 162.70cm(Converted to: 5ft 4in, 64.06in) Actual Weight: 84.800kg Actual Weight Conversion to Pounds: 186.560lb Weight Source: Standing scale Dosing Weight Clinic: 84.80kg Clinic BSA: 1.96 Body Mass Index: 32kg/m2 KVNG PAULINO LPN - 08/23/2010 8:14 STACK SUPERVISOR Subjective Pain Symptoms: No KVNG PAULINO LPN - 08/23/2010 8:14 STACK SUPERVISOR Dependent Habits Tobacco Use/Currently Using: No Tobacco Use/Last 12 months: No Alcohol Use: Yes KVNG PAULINO LPN - 08/23/2010 8:14 STACK SUPERVISOR Caffeine Use Grid Caffeine Use: Current Type: Coffee, Soft drinks Frequency: Daily Amount: 1 cup & 2 cans Last Use: yesterday 4:30 pm KVNG PAULINO LPN - 08/23/2010 8:14 STACK SUPERVISOR Recreational Drug Use Grid Drug Use: None KNVG PAULINO LPN - 08/23/2010 8:14 STACK SUPERVISOR Allergies Allergies (Active) Cats Estimated Onset Date: Unspecified ; Reactions: unknown ; Created By: PHILLIP JARAMILLO MD; Reaction Status: Active ; Category: Other ; Substance: Cats ; Type: Allergy ; Updated By: PHILLIP JARAMILLO; Reviewed Date: 08/23/2010 8:13 STACK SUPERVISOR Dust Mite Estimated Onset Date: Unspecified ; Created By: KVNG PAULINO LPN; Reaction Status: Active ; Category: Drug ; Substance: Dust Mite ; Type: Allergy ; Updated By: KVNG PAULINO LPN; Reviewed Date: 08/23/2010 8:13 STACK SUPERVISOR prochlorperazine Estimated Onset Date: Unspecified ; Reactions: unknown ; Created By: BRAD JARAMILLO MD; Reaction Status: Active ; Category: Drug ; Substance: prochlorperazine ; Type: Allergy ; Updated By: PHILLIP JARAMILLO MD; Reviewed Date: 08/23/2010 8:13 STACK SUPERVISOR Source: [facility] POWERCHART Document Id: [id number] STACK SUPERVISOR!34 documented in this encounter Plan of Treatment Not on filedocumented as of this encounter Visit Diagnoses Not on filedocumented in this encounter
--- OUTSIDE RECORDS SUMMARY | 2022-07-10 08:24 | XMS_ITS | Encounter Summary ---
:1940 Author Organization [facility] Address [address] [place] [address] Care Team Providers Name Role Phone Unavailable Primary Care Provider Unavailable Encounter Details Date Type Department Care Team Description 05/23/2011 Hospital Encounter [facility]X [facility] Naomi Parker, MISA, C.N.P., D. N.P. [address] [place], [place] [address] (Wo rk) Social History [...]
--- OUTSIDE RECORDS SUMMARY | 2022-07-10 08:24 | XMS_ITS | Encounter Summary ---
:1940 Author Organization [facility] Address [address] [place] [address] Care Team Providers Name Role Phone Unavailable Primary Care Provider Unavailable Encounter Details Date Type Department Care Team Description 04/04/2011 Hospital Encounter HX [facility] Tino Horn P.A.-C. [address] [place] [address] (Wo rk) Social History Tobacco [...] encounter Progress Notes Apolonia Horn P.A.-C. - 04/04/2011 12:00 AM CDT [id number] CHIEF COMPLAINT/REASON FOR VISIT Lesion on her right leg. HISTORY OF PRESENT ILLNESS Ainsley is a very pleasant female who has a history of skin cancer. She has had some lesions removed from her arm in the past and she now has had a lesion on her right leg that has been present now for the last few months and she has picked at it a couple times and caused it to bleed. She is unsure of what it is and would like to have it removed. PHYSICAL EXAM AREA EXAM TEXT SKIN On physical examination today of her right lower leg she has a raised lesion that is somewhat warty in appearance and there are no signs of infection surrounding this area. There is another very small pinpoint sized lesion just inferior to this that has a very similar appearance. She has a few other flat lesions on her lower legs that have a flat, darkish discoloration. She says these have been present for quite sometime. We talked about the potential etiologies of the lesions on her leg and given her history of skin cancer she was concerned and would like to have it removed. After discussing the risks and benefits of this we opted to do this today. I anesthetized the area with 2% lidocaine with epinephrine and cleansed it thoroughly with Betadine and alcohol and under a sterile fashion I made an elliptical incision and removed the large lesion that was 5 mm and the smaller lesion that was 1-2 mm, then I undermined the surrounding tissue, cleansed thoroughly and closed the incision with 7 simple sutures. I then cleansed the area thoroughly with alcohol and covered it with Bacitracin ointment and a Band-Aid. IMPRESSION/REPORT/PLAN 1. Right lower leg lesion. Plan: At this time I will have her keep this area clean and dry for the next couple days and she may wash it and keep it covered with an antibiotic ointment and a Band-Aid. If she notes any signs of infection such as redness or exudate I should see her sooner. Otherwise, I will see her back in 10 days for suture removal and we will discuss the results of her lesion. If she has any questions or problems in the meantime, let us know. CEASAR/kln Signed [facility] Electronically Signed By: APOLONIA HORN PA-C On: 04/11/2011 09:58 AM Source: [facility] MHSDOLBEYNONRADSYS Document Id: [id number] documented in this encounter Miscellaneous Notes Miscellaneous - Apolonia Horn P.A.-C. - 04/04/2011 1:40 PM CDT Ambulatory Patient Summary [address] [address] Visit Information Name: AINSLEY GANDHI Current Date: 04/04/2011 13:40:46 Primary Care Provider: APOLONIA HORN PA-C Your [...] Density Once Women greater than age 64 04/04/2011 Checks for bone loss and osteoporosis. Screening [...] Upcoming Appointments Date Time Location Reason Provider 04/13/2011 09:00 FBKF FamilyPrac suture removal and f/u FB Ankur Visiting Provider Your Goals/Additional instructions: Source: [facility] POWERCHART Document Id: [id number] Miscellaneous - Apolonia Horn P.A.-C. - 04/04/2011 1:40 PM CDT Ambulatory Depart Summary [address] [address] Visit Information Name: ARNOL GARCIAAINSLEYJOSI Current Date: 04/04/2011 13:40:44 Primary Care Provider: APOLONIA HORN PA-C AINSLEY GANDHIZABETH has been given the following [...] to the patient and/or family, guardian/caregiver. Source: [facility] POWERCHART Document Id: [id number] Miscellaneous - Conversion, Historical Provider Ser - 04/04/2011 10:07 AM CDT Adult Analytics Leader Intake/History Adult Analytics Leader Intake/History Entered On: 04/04/2011 10:11 CDT Performed On: 04/04/2011 10:07 CDT by KVNG PAULINO LPN Intake Chief Complaint: Check growth on right lower leg & remove Temperature Core: 37.0C(Converted to: 98.6DegF) Peripheral Pulse Rate: 64/min Respiratory Rate: 16/min Systolic Blood Pressure: 102mmHg Diastolic Blood Pressure: 62mmHg NIBP Mean: 75mmHg BP Location: Right upper extremity Heart Rhythm: Regular Actual Weight: 85.200kg(Converted to: 187lb 13oz) Weight Source: Standing scale Dosing Weight Clinic: 85.20kg KVNG PAULINO LPN - 04/04/2011 10:07 CDT Subjective Pain Symptoms: No Respiratory Symptoms: Difficulty breathing with activity JORDANA PAULINOLENARDElida Norris LPN - 04/04/2011 10:07 CDT Dependent Habits Tobacco Use/Currently Using: No Tobacco Use/Last 12 months: No Alcohol Use: Yes KVNG PAULINO FLOOR DIRECTOR - 04/04/2011 10:07 CDT Caffeine Use Grid Caffeine Use: Current Type: Coffee, Soft drinks Frequency: Daily Amount: 1 cup & 2 cans Last Use: 4 pm yesterday afternoon KVNG PAULINO LPN - 04/04/2011 10:07 CDT Recreational Drug Use Grid Drug Use: None LORAJORDANA CarrollLENARDElida Norris LPN - 04/04/2011 10:07 CDT Allergy Allergies (Active) Cats Estimated Onset Date: Unspecified ; Reactions: unknown ; Created By: PHILLIP JARAMILLO MD; Reaction Status: Active ; Category: Other ; Substance: Cats ; Type: Allergy ; Updated By: PHILLIP JARAMILLO; Reviewed Date: 04/04/2011 10:07 CDT Dust Mite Estimated Onset Date: Unspecified ; Created By: KVNG PAULINO LPN; Reaction Status: Active ; Category: Drug ; Substance: Dust Mite ; Type: Allergy ; Updated By: KVNG PAULINO LPN; Reviewed Date: 04/04/2011 10:07 CDT prochlorperazine Estimated Onset Date: Unspecified ; Reactions: unknown ; Created By: BRAD JARAMILLO MD; Reaction Status: Active ; Category: Drug ; Substance: prochlorperazine ; Type: Allergy ; Updated By: PHILLIP JARAMILLO MD; Reviewed Date: 04/04/2011 10:07 CDT Source: [facility] [employer] Document Id: [id number] CDT!31 documented in this encounter Plan of Treatment Not on filedocumented as of this encounter Procedures Procedure Name Priority Date/Time Associated Comments Diagnosis DERMATOPATHOLOGY CONSULT Routine 04/04/2011 11:00 Results for this AM CDT procedure are i n the results section. SURGICAL PATHOLOGY Routine 04/04/2011 11:00 Resul ts for this AM CDT procedure are i n the results section. documented in this encounter Results Surgical Pathology (04/04/2011 11:00 AM CDT) Analysis Performed At Patho logist Time Signature HXLvl IV Surg Performed POWERCHART [facility] Comment: Test Performed by: [facility] Dpt of Lab Med and Pathology [address] [place] [address] Assistant Health Educator: Michael marquis III, M.D. Specimen Anatomical Collection Method Collection Time Receive d Time (Source) Location / / Volume Laterality Tissue 04/04/2011 11:00 04/05/2011 6:49 AM CDT AM CDT Historical Provider LAB SURG PATH ORDERABLES Performing Organization Address City/State/ZIP Code Phon e Number POWERCHART Dermatopathology Consult (04/04/2011 11:00 AM CDT) [facility] gist Method Time Signature HXDrm Exam [id number] POWERCHART [facility] HXDrm Exam See Comment POWERCHART [facility] Comment: RESULT: Apolonia Horn M.D. HXDrm Exam Addr-[place] See Comment POWERCH ART Comment: [facility]-[address] [address] HXDrm Exam Site-[place] See Comment POWERCH ART Comment: A. ??Received in formalin labeled with t he patient's name and medical record number as [id number] labeled rig ht leg is a 2.5 x 0.6 cm pale mccarthy unoriented skin ellipse excised to a depth of 0.3 cm. There is a 1.0 x 0.1 cm ill-defined lesi on centrally located on the skin surface. ??The specimen is inked, s erially sectioned and submitted as follows A1 tips; A2 remaini ng specimen. HXDrm Exam [facility] See Comment POWERCH ART Comment: RESULT: A. Right Leg, Skin: Irr itated seborrheic keratosis HXDrm Exam [facility] See Comment POWERCH ART Comment: RESULT: 04/10/2011 12:27 ??Interpreted by: Francesco Spangler Report electronically signed by Inocencia Pendleton DO Transcribed by: [email or web address] 04/10/2011 12:10:17 Test Performed by: [facility] Dpt of Lab Med and Pathology [address] [place] [id number] Assistant Health Educator: Michael marquis III, M.D. Specimen (Source) Anatomical Collection Method Collection Time Re ceived Time Location / / Volume Laterality Tissue 04/04/2011 11:00 AM CDT Apolonia Horn P.A.-C. LAB PATH DERM ORDERABLES Performing Organization Address City/State/ZIP Code Phon e Number POWERCHART documented in this encounter Visit Diagnoses Not on filedocumented in this encounter
--- OUTSIDE RECORDS SUMMARY | 2022-07-10 08:24 | XMS_ITS | Encounter Summary ---
:1940 Author Organization [facility] Address [address] [place] [address] Care Team Providers Name Role Phone Unavailable Primary Care Provider Unavailable Encounter Details Date Type Department Care Team Description 09/03/2011 Hospital Encounter HX [facility] Naomi Parker, MISA, C.N.P., D. N.P. [address] [place], [place] [address] (Wo rk) Social History [...] this encounter H&P Notes Jonathon Parker APRN, C.NAvtar - 09/03/2011 12:00 AM CST [id number] CHIEF COMPLAINT/ REASON FOR VISIT Annual medication renewal HISTORY OF PRESENT ILLNESS The patient is a 70-year-old female who presents to the clinic for her annual exam. Patient has a history of hypertension. It is well controlled on three blood pressure medications. She denies headache, dizziness, lightheadedness, chest pain or palpitations. Patient also has a history of hypothyroidism. She denies signs and symptoms of hypothyroidism. She takes Synthroid for this. She also has a history of asthma. She also sees an fruit pitter at [place]. Patient takes Flonase, albuterol, Claritin and Advair for her asthma and allergies. Patient also has a history of hyperlipidemia. The patient takes Pravachol for this. Patient follows a Weight Watchers diet. She exercises five times a week for at least 1 hour. She is frustrated because she can not lose more weight. Patient offers no other complaints today. CURRENT MEDICATIONS See depart summary ALLERGIES See EMR SYSTEMS REVIEW GENERAL: Denies fever, chills, sweats, feeling poor, difficulty sleeping or headache. SKIN/HAIR: Denies hair loss, hair thinning, rashes, lesions or itching. HEENT: Denies change in vision or eye pain. Patient does have an annual eye exam. Her vision is corrected. She denies ringing in her ears. She does note some hearing loss. She denies mouth pain or sores. She has an annual dental exam. BREASTS: Lumpy but denies pain or discharge. RESPIRATORY: Denies shortness of breath, cough, wheezing, snoring or apnea. She does have asthma but well controlled. CARDIOVASCULAR: Denies chest pain, pedal edema, syncope, rapid or irregular heartbeats. GI: Denies heartburn, nausea, vomiting, constipation, diarrhea or change in stools. : Denies blood in urine. Denies burning, frequency or urgency with urination. She does have stress incontinence at times. MUSCULOSKELETAL: She denies joint pain, swelling, redness, back pain or muscle aches. HEM: Denies abnormal bleeding or bruising. ENDO: Denies polyuria, polydipsia or polyphagia. NEURO: Denies change in level of consciousness, seizures, numbness, dizziness, balance problems or tremors. MENTAL: Denies feeling sad, depressed or having anxiety. PAST MEDICAL/SURGICAL HISTORY See EMR SOCIAL HISTORY The patient is and has one son. She denies alcohol, drugs or tobacco use. 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 FAMILY HISTORY Updated and see EMR VITAL SIGNS See EMR PHYSICAL EXAM GENERAL: Well-nourished female in no acute distress. Grooming and hygiene appropriate. SKIN: Warm, dry and pink. No rashes, lesions or bruising. HEAD: Normocephalic. No maxillary or frontal tenderness. EYES: Conjunctivae clear. Sclerae white. Pupils equal, round, reactive to light. Peripheral vision intact. EOMs intact. Optic disks round with clear margins. No lesions or hemorrhages. Red reflex present bilaterally. ENT: Ear canals are clear bilaterally. TMs intact, loco and shiny bilaterally with light reflex present. No effusions. Nasal mucosa pink and moist. Posterior pharynx moist and pink. No lesions or exudate. Teeth in good repair. LYMPH NODES: Neck supple. Trachea midline. No JVD. Lymph: No lymphadenopathy. THYROID: No thyromegaly. No tenderness with palpation. BREASTS: Lumpy. No galactorrhea. Breast symmetrical. No lesions, inflammation or dimpling. PERIPHERAL VESSELS: Radial and dorsalis pedis +2, equal bilaterally. Capillary refill less than 3 seconds. HEART: Regular rate and rhythm. No murmurs, rubs or gallops. Normal S1-S2. LUNGS: Clear to auscultation bilaterally. No wheezes, rales or rhonchi. ABDOMEN: Soft, flat and symmetrical. Bowel sounds present x4 quadrants. No bruits. No organomegaly. No masses felt or tenderness with palpation. GENITALIA: Deferred. SPINE: Back: No CVA tenderness. Straight and erect posture. Full range of motion with flexion, extension, lateral and backward bending. JOINTS: Full range of motion in all joints without limitations. Movements smooth and symmetrical. EXTREMITIES: Warm and dry without peripheral edema. Muscle strength equal bilaterally, nontender. GAIT: Steady and even. Coordinated movements. MENTAL: Alert and oriented to person, place and time. NEURO: Patellar and ankle reflexes +2. Strength is 5/5 in both upper and lower extremities. IMPRESSION/REPORT/PLAN 1. Satisfactory health maintenance exam. Patient's mammogram is due in September. Patient's immunizations are up-to-date. Patient is traveling and recently saw a travel clinic and has appropriate immunizations as required for her destination. 2. Hypertension. We will obtain a BMP and notify her of the results. She will continue her atenolol, chlorthalidone and lisinopril. Prescription renewed for 1 year. 3. Hypothyroidism. TSH will be obtained and we will notify the patient of the results. Her Synthroid 75 mcg will be renewed for 1 year. 4. Asthma. Her asthma is well controlled. Her ACT score is 24 today. Her asthma action plan was updated and reviewed. See EMR for scanned in form. 5. Hyperlipidemia. Lipid panel and AST will be obtained and we will notify the patient of the results. She will continue her Pravachol. She will continue to follow a low-fat diet as well. 6. Allergic rhinitis. She will continue her Flonase at this time. Prescription was given for 1 year. Patient was instructed to return for annual exam or as needed. Patient verbalizes understanding and accepts this plan. EMELY/sofy Signed Jonathon Skinner CNP Nurse Practitioner Electronically Signed By: JONATHON SKINNER CNP On: 09/14/2011 11:46 AM Source: [facility] MHSDOLBEYNONRADSYS Document Id: [id number] CTURAL FITTER documented in this encounter Nursing Notes Conversion, Historical Provider Ser - 09/06/2011 10:36 AM CST Appointments at [facility] Document Contains Addenda Addendum by KVNG PAULINO LPN on 06 September 2011 10:48 STRUCTURAL FITTER Bone Density : 10:am Mammogram: 11:15 am Modified by and Electronically Signed by: KVNG PAULINO LPN On: 09/06/2011 10:48 AM Appointments scheduled for [facility] : Mammogram screening & bone density screening 10/16/2011; along with Dermatology with Gonzalez Briceño, [facility] 5th floor, desk East 5 at 1:05 pm Electronically Signed By: KVNG PAULINO LPN On: 09/06/2011 10:39 AM Source: [facility] Guitar Party Document Id: [id number] documented in this encounter Miscellaneous Notes Miscellaneous - Jonathon Parker APRN, C.NAvtar - 09/04/2011 3:32 PM STRUCTURAL FITTER Results Notification Document Contains Addenda Addendum by KVNG PAULINO LPN on 05 September 2011 15:04:05 STRUCTURAL FITTER Stopped in given results. Addendum by KVNG PAULINO LPN on 04 September 2011 17:55:42 STRUCTURAL FITTER Attempted to reach - no answer, will try again tomorrow. From: JONATHON SKINNER VOCATIONAL SERVICES SPECIALIST To: KVNG PAULINO LPN Sent: 09/04/2011 15:32:59 STRUCTURAL FITTER ! Show up: 09/04/2011 21:32:59 [facility] Subject: Results Notification Actions: Notify patient of results Due Date/Time: 09/04/2011 16:32:00 STRUCTURAL FITTER Source: [facility] Guitar Party Document Id: [id number] Electronically signed by Conversion, [facility] Curator Of Manuscripts [id number] at 03/10/2017 12:23 PM CDT Jonathon Paz APRN, C.N.P. - 09/03/2011 11:23 AM STRUCTURAL FITTER Results Notification Document Contains Addenda Addendum by KVNG PAULINO LPN on 04 September 2011 15:18:55 STRUCTURAL FITTER Return call received - will poultry picker copy of results tomorrow - at front end developer javascript html css. Addendum by KVNG PAULINO LPN on 03 September 2011 17:07:43 STRUCTURAL FITTER Attempted to reach - no answer, left voice message & # if further questions. From: JONATHON SKINNER CNP To: KVNG PAULINO LPN Sent: 09/03/2011 11:23:16 STRUCTURAL FITTER ! Show up: 09/03/2011 17:23:16 [facility] Subject: Results Notification Actions: Notify patient of results Due Date/Time: 09/03/2011 12:22:00 STRUCTURAL FITTER Source: [facility] Guitar Party Document Id: [id number] Electronically signed by Conversion, [facility] Curator Of Manuscripts [id number] at 03/10/2017 12:23 PM CDT Jonathon Paz APRN, C.N.P. - 09/03/2011 11:00 AM STRUCTURAL FITTER Quality Measures Quality Measures Entered On: 09/10/2011 8:48 STRUCTURAL FITTER Performed On: 09/03/2011 11:00 STRUCTURAL FITTER by JONATHON SKINNER CNP Asthma Asthma Control Test (ACT) Score : 24 ED visits past yr for asthma w/o hospital stay : 0 Hospitalizations/Overnight Stays in Past yr for Asthma : 0 Asthma Action Plan Provided/Reviewed : Reviewed with the patient Asthma Action Plan Copy : Scanned into EMR JONATHON SKINNER CNP - 09/10/2011 8:47 STRUCTURAL FITTER Source: [facility] POWERCHART Document Id: [id number] STRUCTURAL FITTER!7 CTURAL FITTER Miscellaneous - Conversion, Historical Provider Ser - 09/03/2011 8:38 AM STRUCTURAL FITTER Adult Fruit Grader Intake/History Adult Fruit Grader Intake/History Entered On: 09/03/2011 8:40 STRUCTURAL FITTER Performed On: 09/03/2011 8:38 STRUCTURAL FITTER by KVNG PAULINO LPN Intake Temperature Oral : 36.7C(Converted to: 98.1DegF) Peripheral Pulse Rate : 64/min Respiratory Rate : 16/min Systolic Blood Pressure : 126mmHg Diastolic Blood Pressure : 74mmHg NIBP Mean : 91mmHg BP Location : Right upper extremity Heart Rhythm : Regular KVNG PAULINO LPN - 09/03/2011 8:40 STRUCTURAL FITTER Chief Complaint : Refill meds Actual Weight : 85.7kg(Converted to: 188lb 15oz) Weight Source : Standing scale Dosing Weight Clinic : 85.70kg KVNG PAULINO LPN - 09/03/2011 8:38 STRUCTURAL FITTER Subjective Pain Symptoms : No KVNG PAULINO LPN - 09/03/2011 8:38 STRUCTURAL FITTER Dependent Habits Tobacco Use/Currently Using : No Tobacco Use/Last 12 months : No Smoking Status : Never smoker Alcohol Use : Yes KVNG PAULINO LPN - 09/03/2011 8:38 STRUCTURAL FITTER Caffeine Use Grid Caffeine Use : Current Type : Coffee, Soft drinks Frequency : Daily Amount : 1 cup & 2 cans Last Use : yesterday after noon KVNG PAULINO LPN - 09/03/2011 8:38 STRUCTURAL FITTER Recreational Drug Use Grid Drug Use : None KVNG PAULINO LPN - 09/03/2011 8:38 STRUCTURAL FITTER Allergy Allergies (Active) Cats Estimated Onset Date: [...] MD; Reviewed Date: 04/13/2011 9:12 CDT Source: [facility] Guitar Party Document Id: [id number] STRUCTURAL FITTER!10 documented in this encounter Plan of Treatment Not on filedocumented as of this encounter Visit Diagnoses Not on filedocumented in this encounter
--- OUTSIDE RECORDS SUMMARY | 2022-07-10 08:24 | XMS_ITS | Encounter Summary ---
:1940 Author Organization [facility] Address [address] [place] [address] Care Team Providers Name Role Phone Unavailable Primary Care Provider Unavailable Encounter Details Date Type Department Care Team Description 10/20/2009 Hospital Encounter HX NO MAPPING Jennifer Deal M.D. [address] [place] [phone] (Wo rk) Social History Tobacco Use Types [...] nts DX CHEST AP OR PA Routine 10/20/2009 3:16 PM Resu lts for this AND LATERAL 2 VIEWS GROCERY CLERK MARKING procedur e are in the results section. documented in this encounter Results DX Chest AP or PA and Lateral 2 Views (10/20/2009 3:16 PM GROCERY CLERK MARKING) Anatomical Region Laterality Modality Chest N/A Radiographic Imaging Specimen (Source) Anatomical Collection Method Collection Time Re ceived Time Location / / Volume Laterality 10/20/2009 3:16 PM GROCERY CLERK MARKING Addenda Addendum by Ned Rai M.D. o n 10/20/2009 3:16 PM GROCERY CLERK MARKING RAD^^^OW XR Chest 2 Views 10/20/2009 15:16:00 Addendum by ProviderNed M.D. o n 10/20/2009 3:16 PM GROCERY CLERK MARKING RAD^^^MA XR CHEST 2 VIEWS 10/20/2009 15:16:00 Impressions 10/20/2009 3:34 PM GROCERY CLERK MARKING No acute findings. Mild cardiomegaly. Narrative 10/20/2009 3:34 PM GROCERY CLERK MARKING HISTORY: Asthma. ?? COMPARISON: None. ?? FINDINGS: Heart size is mildly enlarged. There is no vascular congestion. No pneumothorax or pleural f luid. No pulmonary edema or consolidating infiltrates. No hyperinfla tion. No peribronchial thickening. No acute bony findings. Mild aortic arch atherosclerosis. ?? Procedure Note Piter Hdz M.D. / ProviderKristi M.D. - 02/28/2017 HISTORY: Asthma. COMPARISON: None. FINDINGS: Heart size is mildly enlarged. There is no vascular congestion. No pneumothorax or pleural f luid. No pulmonary edema or consolidating infiltrates. No hyperinfla tion. No peribronchial thickening. No acute bony findings. Mild aortic arch atherosclerosis. IMPRESSION: No acute findings. Mild card iomegaly. Otis Farmer(R) IMG DIAGNOSTIC IMAGING PROCE DURES documented in this encounter Visit Diagnoses Not on filedocumented in this encounter
--- OUTSIDE RECORDS SUMMARY | 2022-07-10 08:24 | XMS_ITS | Encounter Summary ---
:1940 Author Organization [facility] Address [address] [place] [address] Care Team Providers Name Role Phone Unavailable Primary Care Provider Unavailable Encounter Details Date Type Department Care Team Description 03/19/2011 Hospital Encounter HX [facility] Tino Horn P.A.-C. [address] [place] [address] (Wo rk) Social History Tobacco [...] encounter Progress Notes Apolonia Horn P.A.-C. - 03/19/2011 12:00 AM CDT [id number] CHIEF COMPLAINT/REASON FOR VISIT Travel immunizations. 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 She in general has been in good health. She is a . Her in [place] and she has decided that she wants to travel to [facility] because she has not been there. She is excited about this opportunity. She is up to date on her tetanus immunization but after review on the travel web site from the [facility] [employer] she will need her typhoid vaccine. She also needs the hepatitis A and hepatitis B series and she also will need malaria prophylaxis and should be updated on her IPV and MMR. IMPRESSION/REPORT/PLAN 1. Travel immunizations. Today she was given her first hepatitis A and hepatitis B vaccine. We also updated her IPV and MMR which will confirm that she has immunity for these prior to her departure. She does not need the yellow fever vaccine but she will need the typhoid vaccine which should be given closer to her period of departure. I recommended that she come in and get this about a month before she leaves. At that time same time she could picker packer her malaria prophylaxis which could be mefloquine 250 mg one tablet once weekly to start two weeks before departure and take while she is there and then continue it for four weeks following arrival home. She will return in two months to receive her second hepatitis B but will not be able to get her third hepatitis B or her second hepatitis A prior to departure. We spent some time discussing this in detail today. We also talked about malaria prophylaxis. If she has any further questions or problems she will let us know. TLR/kln Signed Apolonia Cordova. [facility] Electronically Signed By: APOLONIA HORN PA-C On: 03/21/2011 08:39 AM Source: [facility] MHSDOLBEYNONRADSYS Document Id: [id number] documented in this encounter Miscellaneous Notes Miscellaneous - Apolonia Horn P.A.-C. - 03/19/2011 5:16 PM CDT Ambulatory Patient Summary [address] [address] Visit Information Name: AINSLEY GANDHI Current Date: 03/19/2011 17:16:38 Primary Care Provider: LESTER CHI CNP Your Medications Here is a [...] Density Once Women greater than age 64 03/19/2011 Checks for bone loss and osteoporosis. Screening [...] you from getting the serious disease Tetanus (Ghassanvalentín). Your Upcoming Appointments Date Time Location Reason Provider No Appointments found Your Goals/Additional instructions: Source: [facility] POWERCHART Document Id: [id number] Miscellaneous - Apolonia Horn P.A.-C. - 03/19/2011 5:16 PM CDT Ambulatory Depart Summary [address] [address] Visit Information Name: AINSLEY GANDHI Current Date: 03/19/2011 17:16:37 Primary Care Provider: LESTER CHI [facility] AINSLEY GANDHI has been given the following [...] to the patient and/or family, guardian/caregiver. Source: [facility] Usound Document Id: [id number] Miscellaneous - Conversion, Historical Provider Ser - 03/19/2011 1:46 PM CDT Ambulatory Vitals Height Weight Ambulatory Vitals Height Weight Entered On: 03/19/2011 13:48 CDT Performed On: 03/19/2011 13:46 CDT by KVNG PAULINO LPN Vitals/Ht/Wt Systolic Blood Pressure: 122mmHg Diastolic Blood Pressure: 70mmHg NIBP Mean: 87mmHg BP Location: Left upper extremity SpO2: 99% Oxygen Therapy: Room air KVNG PAULINO LPN - 03/19/2011 13:46 CDT [facility] Id: [id number] CDT!8 Miscellaneous - Conversion, Historical Provider Ser - 03/19/2011 1:41 PM CDT Advance Directive Advance Directive Entered On: 03/19/2011 13:41 CDT Performed On: 03/19/2011 13:41 CDT by KVNG PAULINO LPN Advance Directive Advanced Directives: No KVNG PAULINO LPN - 03/19/2011 13:41 CDT [facility] Document Id: [id number] CDT!3 Miscellaneous - Conversion, Historical Provider Ser - 03/19/2011 1:41 PM CDT Adult Delivery Recruiter Intake/History Adult Delivery Recruiter Intake/History Entered On: 03/19/2011 13:46 CDT Performed On: 03/19/2011 13:41 CDT by KVNG PAULINO LPN Intake Chief Complaint: Need shots for trip to [facility] - Sep.10. + check spot on lower right leg Temperature Core: 36.8C(Converted to: 98.2DegF) Peripheral Pulse Rate: 56/min (LOW) Respiratory Rate: 16/min Systolic Blood Pressure: 136mmHg Diastolic Blood Pressure: 66mmHg NIBP Mean: 89mmHg BP Location: Left upper extremity Heart Rhythm: Regular Actual Weight: 85.700kg(Converted to: 188lb 15oz) Weight Source: Standing scale Dosing Weight Clinic: 85.70kg KVNG PAULINO LPN - 03/19/2011 13:41 CDT Subjective Pain Symptoms: No Respiratory Symptoms: Difficulty breathing with activity KVNG PAULINO LPN - 03/19/2011 13:41 CDT Dependent Habits Tobacco Use/Currently Using: No Tobacco Use/Last 12 months: No Alcohol Use: Yes KVNG PAULINO LPN - 03/19/2011 13:41 CDT Caffeine Use Grid Caffeine Use: Current Type: Coffee, Soft drinks Frequency: Daily Amount: 1 cup & 2 cans Last Use: 7 am this morngin KVNG PAULINO LPN - 03/19/2011 13:41 CDT Recreational Drug Use Grid Drug Use: None KVNG PAULINO LPN - 03/19/2011 13:41 CDT Allergy Allergies (Active) Cats Estimated Onset Date: Unspecified ; Reactions: unknown ; Created By: PHILLIP JARAMILLO MD; Reaction Status: Active ; Category: Other ; Substance: Cats ; Type: Allergy ; Updated By: PHILLIP JARAMILLO; Reviewed Date: 03/19/2011 13:40 CDT Dust Mite Estimated Onset Date: Unspecified ; Created By: KVNG PAULINO LPN; Reaction Status: Active ; Category: Drug ; Substance: Dust Mite ; Type: Allergy ; Updated By: KVNG PAULINO LPN; Reviewed Date: 03/19/2011 13:40 CDT prochlorperazine Estimated Onset Date: Unspecified ; Reactions: unknown ; Created By: BRAD JARAMILLO MD; Reaction Status: Active ; Category: Drug ; Substance: prochlorperazine ; Type: Allergy ; Updated By: PHILLIP JARAMILLO MD; Reviewed Date: 03/19/2011 13:40 CDT Source: [facility] Usound Document Id: [id number] CDT!31 documented in this encounter Plan of Treatment Not on filedocumented as of this encounter Visit Diagnoses Not on filedocumented in this encounter
--- OUTSIDE RECORDS SUMMARY | 2022-07-10 08:24 | XMS_ITS | Encounter Summary ---
:1940 Author Organization [facility] Address [address] [place] [address] Care Team Providers Name Role Phone Unavailable Primary Care Provider Unavailable Encounter Details Date Type Department Care Team Description 06/17/2003 Hospital Encounter HX NO MAPPING Social History [...] or slept in a prison (including now)? Sex Assigned at Date Recorded Female 06/26/2021 8:35 AM CDT documented as of this encounter Plan of Treatment Not on filedocumented as of this encounter Procedures Procedure Name Priority Date/Time Associated Comments Diagnosis BI ULTRASOUND EXAM Routine 06/17/2003 2:05 PM Res ults for this CDT procedure are i n the results section. BI BREAST DIAGNOSTIC Routine 06/17/2003 1:01 PM R esults for this CDT procedure are i n the results section. ECHOCARDIOGRAM Routine 06/17/2003 9:59 AM CDT documented in this encounter Results BI Ultrasound Exam (06/17/2003 2:05 PM CDT) Anatomical Region Laterality Modality Breast N/A Ultrasound Specimen (Source) Anatomical Collection Method Collection Time Re ceived Time Location / / Volume Laterality 06/17/2003 2:05 PM CDT Narrative 06/17/2003 3:04 PM CDT 17-Jun-2003 14:05:00 ??Exam: B MG /Ultrasound Exam Indications: breast exam abnormal ORIGINAL REPORT - 17-Jun-2003 15:04:00 The patient presents for bilateral diagn ostic mammography and bilateral breast ultrasound with a clinical report of thickening in the breast in the upper midline of the right breast and the upper outer quadrant of the left breast. Comparison is made with the previous bilateral mammography of 03-14-01 and 05-08-02. There is a heterogeneously dense breast pattern that has slightly decreased in overall breas t parenchymal density since 03-14-01. No m ammographic features of malignancy. The high resolution real time sonography of the upper outer quadrant left breast and upper inner quadrant/upper outer quadrant right breast demonstrates normal anatom y. No sonographic evidence of malignancy. Impression: There is no evidence of geovanna gnancy. Since there are no imaging correlates to the abnormalities noted on physical examination, I would recommend continued clinical management that includes fo llow-up physical examination. Also recom mended annual screening mammography. Findings and recommendations were discussed with the patient. ?? Assessment: ??Negative. P1,P4,U0,D2,M1, L1D Ultrasound Electronic Images Only Electronically signed by: ?? Yovany Shanks MD. [id number] 17-Jun-20 03 15:04 Procedure Note Yovany Shanks M.D. - 01/14/2018Fo rmatting of this note might be different from the original. 17-Jun-2003 14:05:00 Exam: B MG /Ultraso und Exam Indications: breast exam abnormal ORIGINAL REPORT - 17-Jun-2003 15:04:00 The patient presents for bilateral diagn ostic mammography and bilateral breast ultrasound with a clinical report of thickening in the breast in the upper midline of the right breast and the upper outer quadrant of the left breast. Comparison is made with the previous bilateral mammography of 03-14-01 and 05-08-02. There is a heterogeneously dense breast pattern that has slightly decreased in overall breast parenchymal density since 03-14-01. No mammographic features of malignancy. The high resolution real time sonography of the upper outer quadrant left breast and upper inner quadrant/upper outer quadrant right breast demonstrates normal anatomy. No sonographic evidence of malignancy. Impression: There is no evidence of geovanna gnancy. Since there are no imaging correlates to the abnormalities noted on physical examination, I would recommend continued clinical management that includes follow-up physical examination. Also recommended annual scr eening mammography. Findings and recommendations were discussed with the patient. Assessment: Negative. P1,P4,U0,D2,M1, L1 D Ultrasound Electronic Images Only Electronically signed by: Yovany Shanks MD. [id number] 17-Jun-20 03 15:04 Anusha Pacheco APRN, C.N.P., D.N.P. IMG BI PROCEDURES BI Breast Diagnostic (06/17/2003 1:01 PM CDT) Anatomical Region Laterality Modality Mammography Specimen (Source) Anatomical Collection Method Collection Time Re ceived Time Location / / Volume Laterality 06/17/2003 1:01 PM CDT Narrative 06/17/2003 3:04 PM CDT 17-Jun-2003 13:01:00 ??Exam: B MG /Diagnostic Exam Indications: breast exam abnormal ORIGINAL REPORT - 17-Jun-2003 15:04:00 The patient presents for bilateral diagn ostic mammography and bilateral breast ultrasound with a clinical report of thickening in the breast in the upper midline of the right breast and the upper outer quadrant of the left breast. Comparison is made with the previous bilateral mammography of 03-14-01 and 05-08-02. There is a heterogeneously dense breast pattern that has slightly decreased in overall breas t parenchymal density since 03-14-01. No m ammographic features of malignancy. The high resolution real time sonography of the upper outer quadrant left breast and upper inner quadrant/upper outer quadrant right breast demonstrates normal anatom y. No sonographic evidence of malignancy. Impression: There is no evidence of geovanna gnancy. Since there are no imaging correlates to the abnormalities noted on physical examination, I would recommend continued clinical management that includes fo llow-up physical examination. Also recom mended annual screening mammography. Findings and recommendations were discussed with the patient. ?? Assessment: ??Negative. P1,P4,U0,D2,M1, L1D Ultrasound Electronic Images Only Electronically signed by: ?? Yovany Shanks MD. [id number] 17-Jun-20 03 15:04 Procedure Note Yovany Shanks M.D. - 01/14/2018Fo rmatting of this note might be different from the original. 17-Jun-2003 13:01:00 Exam: B MG /Diagnos tic Exam Indications: breast exam abnormal ORIGINAL REPORT - 17-Jun-2003 15:04:00 The patient presents for bilateral diagn ostic mammography and bilateral breast ultrasound with a clinical report of thickening in the breast in the upper midline of the right breast and the upper outer quadrant of the left breast. Comparison is made with the previous bilateral mammography of 03-14-01 and 05-08-02. There is a heterogeneously dense breast pattern that has slightly decreased in overall breast parenchymal density since 03-14-01. No mammographic features of malignancy. The high resolution real time sonography of the upper outer quadrant left breast and upper inner quadrant/upper outer quadrant right breast demonstrates normal anatomy. No sonographic evidence of malignancy. Impression: There is no evidence of geovanna gnancy. Since there are no imaging correlates to the abnormalities noted on physical examination, I would recommend continued clinical management that includes follow-up physical examination. Also recommended annual scr eening mammography. Findings and recommendations were discussed with the patient. Assessment: Negative. P1,P4,U0,D2,M1, L1 D Ultrasound Electronic Images Only Electronically signed by: Yovany Shanks MD. [id number] 17-Jun-20 03 15:04 Anusha Pacheco APRN, C.N.P., D.N.P. IMG BI PROCEDURES Echocardiogram (06/17/2003 9:59 AM CDT) Anatomical Region Laterality Modality Echocardiography Specimen (Source) Anatomical Collection Method Collection Time Re ceived Time Location / / Volume Laterality 06/17/2003 9:59 AM CDT Historical Provider CV ECHO PROCEDURES documented in this encounter Visit Diagnoses Not on filedocumented in this encounter
--- OUTSIDE RECORDS SUMMARY | 2022-07-10 08:25 | XMS_ITS | Clinical Summary ---
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 calcium Take 1 tablet 0 Active carbonate-vitamin D3, by mouth 3 600 mg-400 unit, times daily (CALCIUM 600 + D) 600 with meals. mg(1,500mg) -400 unit tablet ondansetron (ZOFRAN) 4 Take 1 tablet 10 tablet 0 11/05/19 Active mg tablet by mouth every 15 8 hours if needed for Nausea/Vomitin g. clotrimazole Apply 60 g 1 10/16/19 Active (LOTRIMIN) 1 % cream topically to 17 affected area(s) 2 times daily. sennosides (SENNA) 8.6 Take 1-2 20 tablet 0 20 Active mg tablet tablets by 19 mouth 2 times daily if needed. ondansetron (ZOFRAN Place 1 tablet 10 tablet 0 05/07/20 Active ODT) 4 mg on the tongue 19 disintegrating tablet every 6 hours if needed for nausea. acetaminophen (TYLENOL Take 1-2 100 tablet 0 08/01/20 Active EXTRA STRGTH) 500 mg tablets by 19 tabletIndications: mouth every 6 Presence of right hours if artificial knee joint needed. HYDROcodone-acetaminop Take 1 to 2 20 tablet 0 05/14/20 Active hen, 5-325 mg, (NORCO) tablets by 19 per tablet mouth every 4 to 6 hours if needed for pain predniSONE (DELTASONE) Take 1 tablet 20 tablet 2 12/28/19 Active 10 mg tablet by mouth once 20 daily with a meal. triamcinolone Apply 30 g 0 06/14/20 Active (ARISTOCORT; KENALOG) topically to 21 0.1 % cream affected area(s) 1-2 times daily if needed. Avoid face and groin. triamcinolone Apply to 30 g 0 06/15/20 Active (ARISTOCORT; KENALOG) affected area 21 0.1 % cream 1-2 times daily as needed. Avoid face and groin. ketoconazole 2% Apply 1 120 mL 06/30/20 Acti ve shampoo (NIZORAL) 2 % application 21 shampooIndications: topically 3 Erythema intertrigo (three) times a week. Apply to damp skin, lather, leave on 5 minutes, and rinse ketoconazole 2% Apply 1 60 g 06/30/20 Acti ve topical (NIZORAL) application 21 creamIndications: topically 2 Erythema intertrigo (two) times a day. Apply to red areas between folds of skin. fluticasone (50 mcg Inhale 1 [place] 16 g 07/04/20 Active per actuation) nasal to both 21 solution (FLONASE) nostrils once daily if needed for rhinitis or allergies. albuterol HFA Inhale 2 Puffs 54 g 02/17/20 A ctive (PRO-AIR; VENTOLIN; by mouth every 22 PROVENTIL) 90 4 hours if mcg/actuation inhaler needed for wheezing. montelukast Take 1 Tablet 90 Tablet 3 02/20/20 Acti ve (SINGULAIR) 10 mg (10 mg) by 22 tablet mouth once daily. pravastatin Take 1 Tablet 90 Tablet 3 02/20/20 Acti ve (PRAVACHOL) 40 mg (40 mg) by 22 tablet mouth once daily. fluticasone Inhale 1 Puff 180 Each 3 02/24/20 Acti ve propion-salmeteroL by mouth once 22 (Advair Diskus) 100-50 daily. mcg/dose diskus inhaler celecoxib (CELEBREX) Take 1 Capsule 90 Capsule 3 03/01/20 Active 200 mg capsule (200 mg) by 22 mouth once daily with a meal. hydroCHLOROthiazide Take 1 Tablet 90 Tablet 3 03/01/20 Active (HCTZ) 25 mg tablet (25 mg) by 22 mouth once daily. levothyroxine Take 1 Tablet 90 Tablet 3 03/01/20 Ac tive (SYNTHROID) 75 mcg (75 mcg) by 22 tablet mouth once daily. azelastine 137 Inhale 2 30 mL 12 03/20/20 Activ e mcg/actuation Sprays into 22 (ASTELIN) nasal spray affected nostril(s) in the morning and 2 Sprays in the evening. lisinopriL (PRINIVIL; Take 1 Tablet 90 Tablet 3 07/09/20 Active ZESTRIL) 40 mg tablet (40 mg) by 22 mouth once daily. lisinopriL (PRINIVIL; Take 1 Tablet 90 Tablet 3 03/01/20/ Discontinued ZESTRIL) 30 mg tablet (30 mg) by 22 022 (*Medication mouth once adjustmen t) daily. Active Problems Problem Noted Date Spondylolisthesis of lumbar region 04/06/2016 Lumbar facet arthropathy 04/06/2016 Lumbar foraminal stenosis 04/06/2016 Adjustment disorder with mixed anxiety and depressed m ood 01/23/2007 Resolved Problems Problem Noted Date Resolved Date Bereavement, uncomplicated 01/23/2007 04/06/2016 Encounters Date Type Specialty Care Team Description 07/09/2022 Transcribe Orders Barbra Lamas MD 06/23/2022 Lab Requisition Unknown, Doctor from Last 3 Months Social History Tobacco Use Types Packs/Day Years Used Date Never Smoker Smokeless Tobacco: Never Used Tobacco Cessation: Counseling Given: Yes Alcohol Use Standard Drinks/Week Comments No 0.8 (1 standard drink = 0.6 oz pure alco hol) Sex Assigned at Date Recorded Not on file Obstetrics History Last Filed Vital Signs Vital Sign Reading Time Taken Comments Blood Pressure 130/73 03/23/2019 11:30 AM CDT Pulse 73 03/23/2019 11:30 AM CDT Temperature 36.8 ??C (98.2 ??F) 03/23/2019 11:30 AM CDT Respiratory Rate 16 11/05/2014 8:14 AM PROGRAM FACILITATOR Oxygen Saturation 96% 03/23/2019 11:30 AM CDT Inhaled Oxygen Concentration - - Weight 101.2 kg (223 lb) 03/23/2019 11:30 AM CDT Height 161 cm (5' 3.39) 2014 7:04 AM PROGRAM FACILITATOR Body Mass Index 39.02 2014 7:04 AM PROGRAM FACILITATOR Plan of Treatment Upcoming Encounters Date Type Specialty Care Team Description 07/26/2022 Orders Only Yahaira Aguero Health Maintenance Due Date Last Done Comments Tdap 1953 Depression screening for age 12+ 1954 BMI (ht and wt on same day) for age 18+ 1960 Hepatitis C screening for age 18-79 1960 Tetanus booster 1962 Zoster (shingles) series for age 50+ (1 of 2) 1992 DEXA/DXA scan for age 65+ 2007 Medicare Wellness for age 65+ 2007 Pneumococcal series for age 65+ (1 - PCV) 2007 COVID-19 vaccine series (2 - Moderna series) 08/28/2021 Influenza for age 65+ 06/07/2022 Medical Devices Implanted Type Area Human Resources Vice President Device Shelf Model / Identifier Expiration Serial / Date Lot [id number] - [id number] Ortho Left: DEPUY 01/07 [id number] / Implanted: Qty: 1 on 2014 by Babatunde Mclain MD at [facility] Total Knee / Joint [id number] Description: Attune Patella Medialized D ome 35mm Cemented AOX [id number] - [id number] Left: Knee DEPUY [id number] / Implanted: Qty: 1 on 2014 by Babatunde Mclain MD at [facility] / [id number] Description: Attune Tibial Insert Fixed Bearing Posterior Stabilized Procedures Procedure Name Priority Date/Time Associated Diagnosis Comme nts LAB TRACKING EVENT Routine 06/22/2022 10:41 AM CDT PATH BREAST CORE Routine 06/22/2022 10:41 AM Resu lts for this BIOPSY CDT procedure are i n the results section. from Last 3 Months Results LAB TRACKING EVENT (06/22/2022 10:41 AM CDT) Specimen Anatomical Collection Method Collection Time Receive d Time (Source) Location / / Volume Laterality Other (Other) Client Collect / 06/22/2022 10:41 2021 3:46 Unknown AM CDT AM CDT Doctor Unknown LAB BILL ONLY Performing Organization Address City/State/ZIP Code Phon e Number [facility] [address] [place] [address] LABORATORY-CENTRAL 2000 LABORATORY PATH BREAST CORE BIOPSY (06/22/2022 10:41 AM CDT) Component Value Ref Test Analysis Performed At [facility] gist Range Method Time Signature Case Report Pathology Report ?Case: [id number] ? 06/27/2022 [facility] Authorizing Provider: ??Unkn own, Doctor ?Collected: ? 06/22/2022 1041 ? 1:18 PM HEAL TH Ordering Location: ? [facility] CENTRAL LAB ?Received: ?06/23/2022 0748 ? CDT LASHA MELGAR Pathologist: ? Jj Lema MD ? ENTRAL Specimen: ?Left Breast ? LABORATORY Amendment 06/27/2022 - 06/27/2022 [facility] Amendment issued 1:18 PM HEALTH to incorporate CDT LABORATORY-C ancillary ENTRAL studies. LABORATORY Final A) LEFT BREAST, 2:00, 4 CM FROM NIPPLE, ULTRASOUND-GABRIELA DED CORE BIOPSY: 06/27/2022 [facility] Amendment Diagnosis 1. Invasive ductal carcinoma 1:18 PM H [facility] electronically ?? a. [place] grade: I of III; [place] score: 5 of 9 CDT LABORATORY-C signed by Torey, ?? b. Angio-lymphatic invasion: Absent ENTRAL Jj Stevens MD on ?? c. Associated DCIS: Present LABORATORY 06/27/2022 at ?? d. Subtype: Solid ?? 1:18 PM ?? e. Grade of DCIS: 2 of 3 Electronically 2. Breast Ancillary Testing: signed by Chris, ?a. Hormone Receptors: Clemencia Chavez MD ?Estrogen receptor: Positive (99%, strong stai wilfrido) for Jj Lema ?Progesterone receptor: Positive (98%, strong staining) MD Rodney on ?b. HER2 by IHC: Negative (1+ by manual morphometry) ? 06/25/2022 at ?c. Ki-67: 7% by image analysis 11:00 AM Comment A) This is an image-guided b reast biopsy. The pathologic findings should be correlated with radiologic and clinical findings prior to treatment decisions. 06/27/2022 [facility] 1:18 PM HEALTH Case seen in consultation with Dr. Perez. CDT LABORATORY-C ENTRAL LABORATORY Clinical Left breast 06/27/2022 [facility] Information irregular, 1:18 PM HEALTH spiculated, solid CDT LABORATORY-C and hypoechoic ENTRAL lesion in left LABORATORY breast, 2 o'clock, 4 cm from the nipple measuring 1.5 x 0.8 x 0.9 cm Gross A) Label: ??Patient's name and left breast 06/27/2022 [facility] Description Description: 5 Fibrofatty core biopsies 1:18 PM HEALTH Size: 0.7-1.2 cm in length by 0.2 cm in diameter CDT LABORATORY-C Ink color: Green ENTRAL The specimen is submitted in toto in one cassette. LABORATORY Cold ischemic time: Less juan j n 60 minutes, meets current ASCO/CAP guidelines. ?? The specimen was fixed in formalin for a minimum of 6 hours and not longer than 72 hours. STN 06/23/2022 Microscopic The final diagnosis is based on microscopic examination of appropriate sections of all specimens. 06/27/2022 [facility] Description A) The presence of green ink is confirmed on tissue se ctions. 1:18 PM HEALTH CDT LABORATORY-C ENTRAL LABORATORY SYNOPTIC Breast Biomarker Reporting Template 06/08 [facility] REPORTING Left Breast - A 1:18 PM HEALTH Protocol posted: 08/16/2021 CDT [facility] BORATORY-C ENTRAL ?? Test(s) Performed: ? L ABORATORY ? Estrogen Receptor (ER ) Status: ?Positive (greater than 10% of cells demonstrate nuclear positivity) ? Percentage of Cells with Nuclear Positivity: ? 99 % ? Average Intensity of Staining: ?Strong ? Test Type: ?Laboratory-developed test ? Primary Antibody: ?SP1 ?? Test(s) Performed: ? Progesterone Receptor (PgR) Status: ?Positive ? Percentage of Cells with Nuclear Positivity: ? 98 % ? Average Intensity of Staining: ?Strong ? Test Type: ?Laboratory-developed test ? Primary Antibody: ?636 ?? Test(s) Performed: ? HER2 by Immunohistochemistry: ?Negative (Score 1+ ) ? Test Type: ?Food and Drug Administration (FDA) cleared (test / vendor): [place] ? Primary Antibody: ?4B5 ?? Test(s) Performed: ?Ki-67 ? Percentage of Cells with Nuclear Positivity: ?7 % ? Primary Antibody: ?MIB1 ?? Cold Ischemia and Fixati on Times: ?Meet requirements specified in latest version of the ASCO / CAP Guidelines ?? Testing Performed on Block Number(s): ?A1 METHODS ?? Fixative: ?Formalin ?? Image Analysis: ?Performed ? Method: ?[place] morphometric analysis ? Biomarkers Scored by Image Analysis: ?ER ? Biomarkers Scored by Image Analysis: ?PgR ? Biomarkers Scored by Image Analysis: ?Ki-67 ?? Comment(s): ?2,368 nuclei analyzed for Ki-67. Additional 06/27/2022 [facility] Information Interpreted at [facility], Central Laboratory - [address], [place] [address] 1:18 PM HEALTH CDT LABORATORY-C ENTRAL LABORATORY Specimen Anatomical Collection Method Collection Time Receive d Time (Source) Location / / Volume Laterality Other (Left 06/22/2022 10:41 06/23/2022 7:48 Breast) AM CDT AM CDT Doctor Unknown PATHOLOGY/CYTOLOGY Performing Organization Address City/State/ZIP Code Phon e Number [facility] [address] [place] [address] LABORATORY-CENTRAL 2000 LABORATORY from Last 3 Months Insurance Payer Benefit Plan / Subscriber ID Effective Dates Phone Addre ss Type Group MEDICARE PART A MEDICARE PART A [id number] 2007-[facility] ATTN: CLAIMS - HB USE ONLY HB ONLY t [address] [facility] [place] [address] MEDICARE PART B MEDICARE PART B [id number] 2007-[employer] ATTN: CLAIMS - HB USE ONLY HB ONLY t [address] [facility] [place] [address] BLUE CROSS MR MR BC JAMUL [id number] 2014-Presen [address] [place] [address] BLUE [place]OSS MR BL[place]OSS [id number] 2016-[employer]en [address] [address] JAMUL BLUE t [place], [place] MR PB ONLY [id number] Sadiq Personal/Family Self 1940 [address] (Home) [place] [id number] Care Teams Binder Caser Relationship Specialty Start Date End Date Varsha Garcia CHILDHOOD DEVELOPMENT TEACHER PCP - General Emergency Medicine 03/07/[address] [place] [address] [place] [id number]
[2022-07-10 13:38] LABS: Chloride* 100 mmol/L (96-114); Potassium* 4.5 mmol/L (3.6-5.1); Sodium* 139 mmol/L (135-149)
[2022-07-10 13:41] LABS: Blood Urea Nitrogen* 15 mg/dL (7-30); Calcium* 10.3 mg/dL (8.4-10.6); Carbon Dioxide* 28 mmol/L (20-32); Creatinine* 0.8 mg/dL (0.5-1.5); Estimated Glomerular Filt Rate 75 ml/min; Glucose* 136 mg/dL (60-115)
== END 2022-07-10 08:15 | disposition home or self-care (01) ==
LOC: KYNREF 08:15
PROVIDERS: PCP Nurse Practitioner Family; Visit Provider Nurse Practitioner Family
DX: Z01.818 Encounter for other preprocedural examination (principal); R73.09 Other abnormal glucose
CPT/HCPCS: 36415; 80048

== ENCOUNTER 2022-07-24 10:03 | Outpatient (CLI) | payer MEDICARE, BC, SELFPAY ==
--- OUTSIDE RECORDS SUMMARY | 2022-07-24 10:04 | XMS_ITS | Encounter Summary ---
:1940 Author Organization [facility] Address [address] [place] [address] Care Team Providers Name Role Phone Elsewhere, Pcp Primary Care Provider Unavailable Reason for Referral Outpatient (Routine) - Authorized Specialty Diagnoses / Procedures Referred By Contact Refer red To Contact Allergy and Immunology Valdemar Ma [place] M.D. [address] [place] [address] Referral ID Status Reason Start Date Expiration Date Visits V isits Requested Authorized [id number] Authorized 03/20/2022 03/20/2023 1 1 Outpatient (Routine) - Authorized Specialty Diagnoses / Procedures Referred By Contact Refer red To Contact Diagnoses Asthma Intrinsic (HCC) Valdemar Ma M.D. [facility] Procedures Spirometry 200 [place], [place] [phone] Referral ID Status Reason Start Date Expiration Date Visits V isits Requested Authorized [id number] Authorized 03/20/2022 03/20/2023 1 1 Reason for Visit Outpatient (Routine) - Closed Specialty Diagnoses / Procedures Referred By Contact Refer red To Contact Allergy and Immunology Valdemar Ma [place] M.D. [address] [place] [address] Referral ID Status Reason Start Date Expiration Date Visits Requ ested Visits Authorized [id number] Closed 03/07/2021 03/07/2022 1 1 Encounter Details Date Type Department Care Team Description 03/20/2022 Office Visit Division of Allergic Valdemar Ma Ast hma Intrinsic (HCC) Diseases in [place]ani Ryder M.D. (Primary Dx) [place] [address] [place] [address] [phone] Social History Tobacco Use Types Packs/Day Years [...] more drinks on one Never 03/16/2022 occasion? Social Isolation Answer Date Recorded In a [...] have completed or the highest Roland, MEd, SAS ARCHITECT, MARIE) degree you have received? Sex [...] female who spends March through August in [place] and the remaining months in [place] who was last seen in the division [...] is having more allergy-type symptoms, particularly in [place] and also here where she will notice increased postnasal drainage. For this she has been using primarily Claritin andfluticasone. This past May she noticed fatigue and because of the fatigue did get a COVID test and was positive on February 18 and February 25 with subsequent one negative. Fortunately, she does not feel that she had anyother COVID symptoms during that time. For her exertional shortness of breath she is getting further evaluated locally and reports that kristihas had a chest x-ray, EKG, and echo [...] Valdemar Ma M.D. CT CT Job ID: [id number] documented in this encounter Plan of Treatment [...] Primary documented in this encounter Care Teams Senior Field Service Engineer Relationship Specialty Start Date End Date Elsewhere, Pcp PCP - General Internal Medicine 03/16/22 documented as of this encounter
--- OUTSIDE RECORDS SUMMARY | 2022-07-24 10:04 | XMS_ITS | Encounter Summary ---
:1940 Author Organization [facility] Address [address] [place] [address] Care Team Providers Name Role Phone Elsewhere, Pcp Primary Care Provider Unavailable Reason for Visit Reason Comments Allergy Testing Spirometry Outpatient (Routine) - Closed Specialty Diagnoses / Procedures Referred By Contact Refer red To Contact Diagnoses Asthma Intrinsic ([facility]) Valdemar Ma M.D. [facility] Procedures Spirometry [address] [place] [phone] Referral ID Status Reason Start Date Expiration Date Visits Requ ested Visits Authorized [id number] Closed 02/12/2022 02/12/2023 1 1 Encounter Details Date Type Department Care Team Description 03/20/2022 Clinical Support Division of Allergic Valdemar Ma M.D. [address] [place] [phone] Asthma Intrinsic Diseases in [place] Dominique R.N. ([facility]) [place], [place] [address] [place] [phone] Social History Tobacco Use Types Packs/Day Years [...] or relatives? How often do you attend mosque or More than 4 times per year 03/16/2022 yarsani services? Do you belong to any clubs or Yes 03/16/2022 organizations such as mosque groups, unions, fraternal or athletic groups, or [...] have completed or the highest Roland, MEd, FREEZER TUNNEL OPERATOR, MARIE) degree you have received? Sex Assigned at Date Recorded Female 06/26/2021 8:35 AM CDT documented as of this encounter Plan of Treatment Not on filedocumented as of this encounter Procedures Procedure Name Priority Date/Time Associated Comments Diagnosis IL BRONCHODILATION Routine 03/20/2022 8:51 Asthma Intrinsic Re sults for this RESPONSIVENESS AM CDT (HCC) procedure are in the results section. documented in this encounter Results Spirometry (03/20/2022 8:51 AM CDT) Analysis Performed At Patho logist Time Signature VC MAX POST 2.57 L 03/20/2022 [facility] 2:58 PM CDT SU[address] PostFVC 2.31 L 03/20/2022 [facility] 2:58 PM CDT SUITE PostFEV1 1.59 L 03/20/2022 [facility] 2:58 PM CDT SUITE FEV1/FVC POST 68.91 % 03/20/2022 [facility] 2:58 PM CDT SUITE FEF 25-75 % 0.97 L/s 03/20/2022 [facility] 2:58 PM CDT SUITE PEF POST 4.78 L/s 03/20/2022 [facility] 2:58 PM CDT SUITE FET POST 16.80 sec 03/20/2022 [facility] 2:58 PM CDT SUITE VC MAX PRE 2.24 L 03/20/2022 [facility] 2:58 PM CDT SUITE FVC 2.12 L 03/20/2022 [facility] 2:58 PM CDT SUITE FEV1 1.40 L 03/20/2022 [facility] 2:58 PM CDT SUITE FEV1/FVC 66.11 % 03/20/2022 [facility] 2:58 PM CDT SUITE ILB98-48% 0.82 L/s 03/20/2022 [facility] 2:58 PM CDT SUITE PEF PRE 4.64 L/s 03/20/2022 [facility] 2:58 PM CDT SUITE FET PRE 18.40 sec 03/20/2022 [facility] 2:58 PM CDT SUITE SUBSTANCE POST Albuterol 03/20/2022 [facility] 2:58 PM CD[address] SU[address] DOSE POST 2 Puff 03/20/2022 [facility] 2:58 PM CDT SUITE % PRED VC MAX 91 % % 03/20/2022 [facility] 2:58 PM CDT SUITE FVC% 86 % % 03/20/2022 [facility] 2:58 PM CDT SUITE FEV1% 75 % % 03/20/2022 [facility] 2:58 PM CDT SUITE % PRED 86 % % 03/20/2022 [facility] FEV1/FVC 2:58 PM CDT SUITE % PRED FEF 54 % % 03/20/2022 [facility] 25-75% 2:58 PM CDT SUITE % PRED PEF 91 % % 03/20/2022 [facility] 2:58 PM CDT SUITE PRED VC MAX 2.46 03/20/2022 [facility] 2:58 PM CDT SUITE PRED FVC 2.46 03/20/2022 [facility] 2:58 PM CDT SUITE PRED FEV 1 1.87 03/20/2022 [facility] 2:58 PM CDT SUITE PRED FEV1/FVC 77.2 03/20/2022 [facility] 2:[address] PRED FEF 1.53 03/20/2022 [facility] 25-75% 2:[address] PRED PEF 5.1 03/20/2022 [facility] 2:58 PM CDT SUITE Specimen (Source) Anatomical Collection Method Collection Time Re ceived Time Location / / Volume Laterality 03/20/2022 8:51 AM CDT Impressions [facility] - 03/20/2022 2:58 PM C DT within normal limits Narrative This result has an attachment that is no t available. Procedure Note Valdemar Ma M.D. - 03/20/2022For matting of this note might be different from the original. IMPRESSION: within normal limits Valdemar Ma M.D. PFT ORDERABLES Performing Organization Address City/State/ZIP Code Phon e Number [facility] NA documented in this encounter Visit Diagnoses Diagnosis Asthma Intrinsic (HCC) documented in this encounter Care Teams Computerized Machine Fabric Cutter Relationship Specialty Start Date End Date Elsewhere, Pcp PCP - General Internal Medicine 03/16/22 documented as of this encounter
--- OUTSIDE RECORDS SUMMARY | 2022-07-24 10:04 | XMS_ITS | Encounter Summary ---
:1940 Author Organization [facility] Address [address] [place] [address] Care Team Providers Name Role Phone Elsewhere, Pcp Primary Care Provider Unavailable Reason for Visit Reason Comments Pre-visit Intake Encounter Details Date Type Department Care Team Description 03/16/2022 Clinical Communication Visit Review in Pr e-visit Intake [place], [place] [address] [place] [address] Social History Tobacco Use Types Packs/Day Years [...] More than 4 times per year 03/16/2022 roman catholic services? Do you belong to any [...] have completed or the highest Roland, MEd, SILK SCREEN PRINTER HELPER, MARIE) degree you have received? Sex [...] documented as of this encounter Care Teams Manager Latin Relationship Specialty Start Date End Date Elsewhere, Pcp PCP - General Internal Medicine 03/16/22 documented as of this encounter
--- OUTSIDE RECORDS SUMMARY | 2022-07-24 10:04 | XMS_ITS | Encounter Summary ---
:1940 Author Organization [facility] Address [address] [place] [address] Care Team Providers Name Role Phone Elsewhere, Pcp Primary Care Provider Unavailable Reason for Visit Appointment Request (Routine) - Closed Specialty Diagnoses / Procedures Referred By Contact Refer red To Contact Dermatology Diagnoses Screening Examination Skin Cancer Referral ID Status Reason Start Date Expiration Date Visits Requ ested Visits Authorized [id number] Closed 04/12/2022 04/12/2023 1 1 Encounter Details Date Type Department Care Team Description 05/29/2022 Office Visit Department of Brooks, Mervat Keratosis Seborrheic (Primary Dx); Dermatology in A, JET INSPECTOR, C.N.P., Screening Examination Skin Cancer; [place], [place] D.N.P. Dermatoheliosis; 200 [facility] 200 [facility] Personal History Of Other Malignant [place] [address] [phone] Social History Tobacco Use Types Packs/Day Years [...] have completed or the highest Roland, MEd, SYSTEM SPECIALIST, MARIE) degree you have received? Sex Assigned [...] Skin documented in this encounter Care Teams Vaccine Key Customer Leader Relationship Specialty Start Date End Date Elsewhere, Pcp PCP - General Internal Medicine 03/16/22 documented as of this encounter
--- OUTSIDE RECORDS SUMMARY | 2022-07-24 10:04 | XMS_ITS | Encounter Summary ---
:1940 Author Organization [facility] Address [address] [place] [address] Care Team Providers Name Role Phone Elsewhere, Pcp Primary Care Provider Unavailable Encounter Details Date Type Department Care Team Description 03/16/2022 Lab [facility] [place], Encounter For [place] [facility] Preprocedural Laboratory [address] 200 [facility] Examination (COVID-19) [place] [address] [place], [place] [phone] (Wo rk) Social History Tobacco Use Types [...] have completed or the highest Roland, MEd, NEIGHBORHOOD AIDE, MARIE) degree you have received? Sex Assigned [...] RNA, V Asymptomatic (03/16/2022 9:16 AM CDT) [facility] Method Time Signature SARS-CoV-2 Swab, 03/16/2022 [...] pe rformed using the Aptima SARS-CoV-2 assay ([employer] on the Darby Smarts tem under emergency use authorization (EUA) by the U.S. Food and Drug Administ ration. Fact sheets for this EUA assay can be fo und at the following links: For Healthcare Providers: https://www.fd a.gov/media/228832/download For Patients: https://www.fda.gov/media/ 606861/download Specimen Anatomical Collection Method Collection Time Receive d Time (Source) Location / / Volume Laterality Varies 03/16/2022 9:16 AM 2:57 (Nasopharynx) CDT PM CDT Valdemar Ma M.D. LAB MICROBIOLOGY - GENERAL O RDERABLES Performing Organization Address City/State/[facility] Phon e Number [facility]- [address] [place] [address] [place] [address] System [address] documented in this encounter Visit Diagnoses Diagnosis Encounter For Preprocedural Laboratory E xamination (COVID-19) documented in this encounter Additional Health Concerns Infection Onset Date Last Indicated Resolved Time COVID19 Pending 03/16/2022 03/16/2022 03/16/2022 11:54 PM CDT documented as of this encounter Care Teams Supervisor Welding Equipment Repairer Relationship Specialty Start Date End Date Elsewhere, Pcp PCP - General Internal Medicine 03/16/22 documented as of this encounter
--- OUTSIDE RECORDS SUMMARY | 2022-07-24 10:04 | XMS_ITS | Clinical Summary ---
:1940 Author Organization [facility] Address [address] [place] [address] Care Team Providers Name Role Phone Elsewhere, Pcp Primary Care Provider Unavailable Source Comments Patient records contain information from all sites at [facility]. For routine questions regarding patient records, call [phone] during business hours, M-F 8:00 AM - 5:00 PM Central Time. Record requests for emergency care only can be directed to [phone] at any time.[facility] Allergies Active Allergy Reactions Severity Noted [...] Guy A, Keratosi s Seborrheic (Primary Dx); ETHOLOGIST, C.N.P., D.N.P. Screeni ng Examination Skin Cancer; [...] or relatives? How often do you attend quaker or More than 4 times per year 03/16/2022 jain services? Do you belong to any clubs or Yes 03/16/2022 organizations such as quaker groups, unions, fraternal or athletic groups, or school groups? How often do you attend meetings of the More than 4 times [facility] year 03/16/2022 clubs or organizations [...] have completed or the highest Roland, MEd, NUISANCE WILDLIFE CONTROL OPERATOR, MARIE) degree you have received? Sex Assigned at Date Recorded Female 06/26/2021 8:35 AM CDT Last Filed Vital Signs Vital Sign Reading Time Taken Comments Blood Pressure 130/62 02/15/2021 9:32 AM CDT Pulse 80 02/15/2021 9:32 AM CDT Temperature 36.9 ??C (98.4 ??F) 03/20/2022 8:54 AM CDT Respiratory Rate 12 02/15/2021 9:32 AM CDT Oxygen Saturation 97% 09/28/2019 10:15 AM CAFE HELPER Inhaled Oxygen Concentration - - Weight 99.5 [...] , or Tdap) 07/25/2007, Additional history exists Colonoscopy Discontinued 08/18/2009 Pneumococcal vaccine (65+ years) Completed 06/10/2015, 07/2008 Hepatitis B Vaccines Completed 02/12/2019, 05/23/2011, 05/23/2011, Additional history exists Zoster Vaccines Completed 08/05/2020, 04/26/2020, 07/26/2009 Cologuard Discontinued 02/27/2021 Colorectal Cancer Surveillance Discontinued CT Colonography Discontinued Procedures Procedure Name Priority Date/Time Associated Diagnosis [...] e / Group Dates MEDICARE MEDICARE A [id number] 2007-Pres [address] [place] [address] BLUE CROSS BCBS [place] [id number] 2016-Pres [phone] PO TURNER X Cost Share BLUE SHIELD BLUE COST ent [phone] [place] [address] Care Teams Shipping Weigher Relationship Specialty Start Date End Date Elsewhere, Pcp PCP - General Internal Medicine 03/16/22
--- OUTSIDE RECORDS SUMMARY | 2022-07-24 10:05 | XMS_ITS | Encounter Summary ---
:1940 Author Organization [facility] Address [address] [place] [address] Care Team Providers Name Role Phone Igor Horn P.A.-C. Primary Care Provider [phone] Reason for Visit Outpatient (Routine) - Closed Specialty Diagnoses / Procedures Referred By Contact Refer red To Contact Dermatology Diagnoses Lesion Skin Igor Horn P.A.-C. [place] [address] [place] [address] Referral ID Status Reason Start Date Expiration Date Visits V isits Requested Authorized [id number] Closed Specialty 05/15/2021 05/15/2022 1 1 Services Required Encounter Details Date Type Department Care Team Description 06/30/2021 Comprehensive Visit Department of Mervat Guy atosis Seborrheic (Primary Dx); Dermatology in A, RESEARCH HYDROLOGIST, C.N.P., Cancer Sk in Basal Cell Personal History; [place], D.N.P. Cancer Skin Squamous Cell Personal Histo ry; [place] 200 [facility] Tumor Skin Uncertain Behavior; [address] [place] [address] Dermatoheliosis; [place] [address] Angioma Salmeron; [phone] Intertrigo Social History Tobacco Use Types Packs/Day [...] 03/16/2022 organizations such as moravian groups, unions, fraPicosun or athletic groups, or school groups? How [...] have completed or the highest Roland, MEd, UNIFORM ROOM ATTENDANT, MARIE) degree you have received? Sex Assigned at Date Recorded Female 06/26/2021 8:35 AM CDT documented as of this encounter Progress Notes Kathryn Moreau RAntwanN. - 06/30/2021 10:00 AM CDT Shave biopsy with electrodesiccation and curettage on the lower back was/were performed as ordered and outlined by Mervat Guy ([id number]) RESEARCH HYDROLOGIST, BLENDING SUPERVISOR, MSN in the clinical note dated with today's date. documented in this encounter Consult Notes Mervat Guy APRN, C.N.P., M.S.N. - 06/30/2021 10:00 AM CDT REFERRED [...] the breasts and under the abdomen for [id number] irritation, which worsened this summer. The patient does spend her ashley in [place], and tries to be diligent withphotoprotection. Allergies [...] the patient by letter. Patient given pamphlet [id number]. The anesthesia used was 1% lidocaine with [...] Component Value Ref Test Analysis Performed At [facility] gist Range Method Time Signature 07/05/2021 [facility] 8:24 AM CDT Report Wicho Cameron 07/05/2021 [facility] electronically [place], 8:24 AM CDT signed by Cristiana Gross Description Received in formalin labeled with the patient's n vikram, 07/05/2021 [facility] medical record number, and right lower paraspinal back is 8:24 AM CDT a 1.4 x 0.6 x 0.1 cm pale mccarthy skin shave biopsy. No discrete lesion is grossly identified on the skin surface. The specimen is bisected and submitted entirely in cassette A1. ??Grossed by AJG. Interpretation FINAL DIAGNOSIS 07/05/2021 PDR A. ??Right lower paraspinal back, Skin shave biopsy: 8:24 AM CDT Superficial and nodular basal cell carcinoma, involving biopsy border Specimen (Source) Anatomical Collection Method Collection Time Re ceived Time Location / / Volume Laterality Skin (Right lower 06/30/2021 10:01 paraspinal back) AM CDT Narrative This result has an attachment that is no t available. Mervat Guy APRN, C.N.P., Francesco.N.P. LAB PATH DERM O RDERABLES Performing Organization Address City/State/ZIP Code Phon e Number [facility] - [address] [place], [place] [address] [address] [place] [address] [facility] [address] documented in this encounter Visit Diagnoses Diagnosis Keratosis Seborrheic - Primary Cancer Skin Basal Cell Personal History Cancer Skin Squamous Cell Personal Histo ry Tumor Skin Uncertain Behavior Dermatoheliosis Angioma [place]meron Intertrigo documented in this encounter Care Teams Furniture And Bedding Inspector Relationship Specialty Start Date End Date Igor Horn P.A.-C. PCP - General 06/14/18 03/15/22 [address] [place] [phone] documented as of this encounter
--- OUTSIDE RECORDS SUMMARY | 2022-07-24 10:05 | XMS_ITS | Encounter Summary ---
:1940 Author Organization [facility] Address [address] [place] [address] Care Team Providers Name Role Phone Igor Horn P.A.-C. Primary Care Provider [phone] Reason for Visit Reason Comments Medication Question Encounter Details Date Type Department Care Team Description 10/02/2021 Clinical Communication Division of Anil, Medic ation Question Allergic Diseases Valdemar Olivo M.D. in [address] [place] [address] [place], [place] [phone] (Work) [phone] Social History Tobacco Use Types Packs/Day Years [...] More than 4 times per year 03/16/2022 zoroastrian services? Do you belong to any clubs [...] have completed or the highest Roland, MEd, BRICK CHIMNEY SUPERVISOR, MARIE) degree you have received? Sex Assigned at Date Recorded Female 06/26/2021 8:35 AM CDT documented as of this encounter Miscellaneous Notes Addendum Note - John Paul Flores R.N. - 10/02/2021 12:56 PM TANK STAVE ASSEMBLER Addended by: JOHN PAUL FLORES on: 10/02/2021 12:56 PM Modules accepted: Orders STAVE ASSEMBLER Telephone Encounter - Anitha Alexander R.N. - 10/02/2021 11:44 AM CST Question(s) to be answered: Would you be able to fill a one time refill for Advair and Prednisone to [place], [place]? Background: Patient is in [place] visiting her children. She is requesting a one time refill of the noted medications in case she would need them before she returns from her trip. She is taking prednisone 10 mgdaily, as her asthma acted up some while in [place]. Her symptoms have improved since taking thisdosage. Date last seen: 03/07/21 Diagnoses: Asthma Recommendations: Please fill one time refill of medications as you see fit. Medications pended for review. STAVE ASSEMBLER Telephone Encounter - Karina Perdomo - 10/02/2021 11:39 AM CST She is currently in [facility] visiting family. She has an unusual medication question. STAVE ASSEMBLER documented in this encounter Plan of Treatment Not on filedocumented as of this encounter Visit Diagnoses Diagnosis Asthma Intrinsic (HCC) - Primary documented in this encounter Care Teams Executive Chairman Relationship Specialty Start Date End Date Igor Horn P.A.-C. PCP - General 06/14/18 03/15/22 [address] [place] [address] documented as of this encounter
--- OUTSIDE RECORDS SUMMARY | 2022-07-24 10:05 | XMS_ITS | Encounter Summary ---
:1940 Author Organization [facility] Address 200 [place] [address] Care Team Providers Name Role Phone Igor Horn P.A.-C. Primary Care Provider [phone] Reason for Visit Reason Comments Med Refill Encounter Details Date Type Department Care Team Description 05/22/2021 Refill Department of Family Medicine, Igor Ross P.A.-C. Med Refill [facility], in [address] [place] [address] [place] [address] [place] [address] [phone] Social History Tobacco Use Types Packs/Day Years [...] have completed or the highest Roland, MEd, RAILROAD CROSSING PROTECTION MAINTAINER, MARIE) degree you have received? Sex Assigned at Date Recorded Female 06/26/2021 8:35 AM CDT documented as of this encounter Miscellaneous Notes Telephone Encounter - Kta Valenzuela, L.P.N. - 05/25/2021 4:19 PM CDT Patient responded to portal message her arthritis started bothering her when she came back to [place] and restarted the Celebrex 200 mg daily [...] mouth once daily with a meal. Pharmacy: [facility] documented in this encounter Plan of Treatment Not on filedocumented as of this encounter Visit Diagnoses Not on filedocumented in this encounter Care Teams Enforcement Manager Relationship Specialty Start Date End Date Igor Horn P.A.-C. PCP - General 06/14/18 03/15/22 [address] [place] [address] documented as of this encounter
--- OUTSIDE RECORDS SUMMARY | 2022-07-24 10:05 | XMS_ITS | Encounter Summary ---
:1940 Author Organization [facility] Address [address] [place] [address] Care Team Providers Name Role Phone Igor Horn P.A.-C. Primary Care Provider [phone] Reason for Visit Reason Comments Follow-up question re prednisone Encounter Details Date Type Department Care Team Description 01/16/2021 Clinical Communication Division of Kang Ma w-up question Allergic Diseases Valdemar Olivo M.D. re prednisone in [place], [address] [place] [address] [place] [address] [place], [place] [phone] (Work) [phone] Social History Tobacco Use Types Packs/Day Years [...] on filedocumented in this encounter Care Teams Microbial Specialist Relationship Specialty Start Date End Date Iogr Horn P.A.-C. PCP - General 06/14/18 03/15/[address] [place] [address] documented as of this encounter
--- OUTSIDE RECORDS SUMMARY | 2022-07-24 10:05 | XMS_ITS | Encounter Summary ---
:1940 Author Organization [facility] Address [address] [place] [address] Care Team Providers Name Role Phone Igor Horn P.A.-C. Primary Care Provider [phone] Reason for Referral Outpatient (Routine) - Closed Specialty Diagnoses / Procedures Referred By Contact Refer red To Contact Allergy and Immunology Valdemar [facility] [place] M.D. 200 [place] [address] Referral ID Status Reason Start Date Expiration Date Visits Requ ested Visits Authorized [id number] Closed 03/07/2021 03/07/2022 1 1 Reason for Visit Outpatient (Routine) - Closed Specialty Diagnoses / Procedures Referred By Contact Refer red To Contact Allergy and Immunology Valdemar Ma [place] M.D. 200 [place] [address] Referral ID Status Reason Start Date Expiration Date Visits Requ ested Visits Authorized [id number] Closed 01/10/2021 01/10/2022 1 1 Encounter Details Date Type Department Care Team Description 03/07/2021 Office Visit Division of Valdeamr Hanson Intrinsic (HCC) Diseases in Geovani Ryder M.D. (Primary Dx) [place] [address] [facility] 200 [place] [phone] Social History Tobacco Use Types Packs/Day Years [...] have completed or the highest Roland, MEd, COOK MANAGER, MARIE) degree you have received? Sex [...] Ms. Cedeño is a 80-year-old female from [place], [place], who ashley in [place] from August through February with longstanding history of asthma. She was last seen in the division in August of 2018. Over the course of the last year, in general she had done well except for the December time frame whilein [place]. At that time, she had increased cough, [...] of her symptoms in December while in [place] and generally does better here in [place] from the breathing standpoint. Unfortunately, it is [...] this prior to her going back to [place] in August. At present, we will continue [...] Valdemar Ma M.D. CT CT Job ID: [id number] documented in this encounter Plan of Treatment Scheduled Referrals Name Type Priority Associated Order Schedule Diagnoses Allergy and Outpatient Referral Routine Expected : Immunology office 03/07/2022 visit (clinic) (Approximate) , Expires: 03/07/2024 documented as of this encounter Visit Diagnoses Diagnosis Asthma Intrinsic (HCC) - Primary documented in this encounter Care Teams Supervisor Mattress And Boxsprings Relationship Specialty Start Date End Date Igor Horn P.A.-C. PCP - General 06/14/18 03/15/[address] [place] [address] documented as of this encounter
--- OUTSIDE RECORDS SUMMARY | 2022-07-24 10:05 | XMS_ITS | Encounter Summary ---
:1940 Author Organization [facility] Address 200 [place] [address] Care Team Providers Name Role Phone Igor Horn P.A.-C. Primary Care Provider [phone] Reason for Visit Reason Comments Med Refill Encounter Details Date Type Department Care Team Description 02/16/2022 Refill Department of Family Medicine, Igor Ross P.A.-C. Med Refill [facility], in [address] [place] [address] [place] [address] [place] [address] [phone] Social History Tobacco Use Types Packs/Day Years [...] have completed or the highest Roland, MEd, FITTER HELPER, MARIE) degree you have received? Sex Assigned at Date Recorded Female 06/26/2021 8:35 AM CDT documented as of this encounter Plan of Treatment Not on filedocumented as of this encounter Visit Diagnoses Not on filedocumented in this encounter Care Teams Document Imaging Specialist Relationship Specialty Start Date End Date Igor Horn P.A.-C. PCP - General 06/14/18 03/15/22 [address] [place] [address] documented as of this encounter
--- OUTSIDE RECORDS SUMMARY | 2022-07-24 10:05 | XMS_ITS | Encounter Summary ---
:1940 Author Organization [facility] Address 200 [place] [address] Care Team Providers Name Role Phone Igor Horn P.A.-C. Primary Care Provider [phone] Reason for Visit Reason Comments COVID Inquiry Encounter Details Date Type Department Care Team Description 10/23/2021 Clinical Communication Department of MELANIA Byrd [facility] Reyna [facility], in [address] [address] [place], [place] [phone] (Work) [phone] Social History Tobacco Use Types Packs/Day Years [...] have completed or the highest Roland, MEd, NURSE RECRUITER, MARIE) degree you have received? Sex Assigned at Date Recorded Female 06/26/2021 8:35 AM CDT documented as of this encounter Miscellaneous Notes Telephone Encounter - Diana Lawson - 10/23/2021 8:32 AM CST What is the purpose of the call?: Symptomatic (Calling PCP Office) Calling [place] PCP Office What region is the patient calling from? : [place] Have you tested positive for COVID-19 in [...] Because of symptoms, transfer patient to: : [place] COVID Nurse Line (End Screening) Symptom Onset Date of symptom onset: 10/21/21 Plan: Endpoint recommendation: Transferred to Nursing/COVID Line/Care Team *Reminder if sending patient for testing in [facility] or [facility], route encounter to the correct testing pool. MS ANALYST documented in this encounter Plan of Treatment Not on filedocumented as of this encounter Visit Diagnoses Not on filedocumented in this encounter Care Teams Leader Tier Relationship Specialty Start Date End Date Igor Horn P.A.-C. PCP - General 06/14/18 03/15/22 225 [place] [address] documented as of this encounter
--- OUTSIDE RECORDS SUMMARY | 2022-07-24 10:05 | XMS_ITS | Encounter Summary ---
:1940 Author Organization [facility] Address 200 [place] [address] Care Team Providers Name Role Phone Igor Horn P.A.-C. Primary Care Provider [phone] Encounter Details Date Type Department Care Team Description 10/23/2021 Admin Visit Department of Family Medicine, [address] [address] [facility] [phone] Social History Tobacco Use Types Packs/Day Years [...] place to sleep or slept in a group home (including now)? Education Answer Date Recorded What is the highest level of school Master's degree (e.g., M A, MS, 02/15/2021 you have completed or the highest Roland, MEd, HAND ENDBAND CUTTER, MARIE) degree you have received? Sex Assigned at Date Recorded Female 06/26/2021 8:35 AM CDT documented as of this encounter Plan of Treatment Not on filedocumented as of this encounter Visit Diagnoses Not on filedocumented in this encounter Additional Health Concerns Infection Onset Date Last Indicated Resolved Time COVID19 Pending 10/23/2021 10/23/2021 10/24/2021 12:22 PM SALES ACCOUNT SPECIALIST documented as of this encounter Care Teams Wind Turbine Design Engineer Relationship Specialty Start Date End Date Igor Horn P.A.-C. PCP - General 06/14/18 03/15/22 [address] [place] [phone] documented as of this encounter
--- OUTSIDE RECORDS SUMMARY | 2022-07-24 10:05 | XMS_ITS | Encounter Summary ---
:1940 Author Organization [facility] Address 200 [place] [address] Care Team Providers Name Role Phone Igor Horn P.A.-C. Primary Care Provider [phone] Reason for Visit Reason Comments COVID Nurse Line Triage Encounter Details Date Type Department Care Team Description 10/23/2021 Nurse Triage Department of [facility] Niharika Live C OVID Nurse Line; Medicine, [facility], in [place], [place] [facility] [address] [place] [address] Social History Tobacco Use Types Packs/Day Years [...] have completed or the highest Roland, MEd, GEAR GRINDING MACHINE OPERATOR, MARIE) degree you have received? Sex Assigned at Date Recorded Female 06/26/2021 8:35 AM CDT documented as of this encounter Miscellaneous Notes Telephone Encounter - Niharika Evans, RAntwanN. - 10/23/2021 8:46 AM HOSPICE COMMUNITY LIAISON Chief Complaint / Reason for Call Patient [...] RSV and Strep Select appropriate region: : [place] Do you have any of the following [...] (Oseltamivir)?: Yes and patient is an established [facility] patient*. When screening complete, run the Influenza [...] swabbed for COVID-19 and Influenza, sent to [facility] located at [address] [place] [address] ([facility]). An appointment is required for testing, please call [phone] Saturday-Saturday 7am to 6pm and Saturday & [...] frequently with soap and water, use hand fiber drier operator if soap and water aren't available. -Wear [...] care: Yes The following references were used: [facility] novel coronavirus (COVID- 19) resources CDC web site https://www.cdc.gov/coronavirus/2019-ncov/your-health/index.html Nursing judgement ICE COMMUNITY LIAISON documented in this encounter Plan of Treatment Not on filedocumented as of this encounter Visit Diagnoses Not on filedocumented in this encounter Care Teams Seed Sorter Relationship Specialty Start Date End Date Igor Horn P.A.-C. PCP - General 06/14/18 03/15/22 [address] [place] [address] documented as of this encounter
--- OUTSIDE RECORDS SUMMARY | 2022-07-24 10:05 | XMS_ITS | Encounter Summary ---
:1940 Author Organization [facility] Address [address] [place] [address] Care Team Providers Name Role Phone Igor Horn P.A.-C. Primary Care Provider [phone] Encounter Details Date Type Department Care Team Description 10/25/2021 Orders Only [facility] Express Care Nimisha Deutsch at [facility] MISA, C.N.P., M.S.N. [address] [place] [address] [place] [address] [place] [address] [phone] (Wo rk) Social History Tobacco Use Types [...] or slept in a detention (including now)? Education Answer Date Recorded What is the highest level of school Master's degree (e.g., M Yady, MS, 02/15/2021 you have completed or the highest Roland, MEd, VETERINARIAN LABORATORY ANIMAL CARE, MARIE) degree you have received? Sex Assigned at Date Recorded Female 06/26/2021 8:35 AM CDT documented as of this encounter Plan of Treatment Not on filedocumented as of this encounter Visit Diagnoses Not on filedocumented in this encounter Care Teams Head Grinder Relationship Specialty Start Date End Date Igor Horn P.A.-C. PCP - General 06/14/18 03/15/22 [address] [place] [address] documented as of this encounter
--- OUTSIDE RECORDS SUMMARY | 2022-07-24 10:05 | XMS_ITS | Encounter Summary ---
:1940 Author Organization [facility] Address 200 [place] [address] Care Team Providers Name Role Phone Igor Horn P.A.-C. Primary Care Provider [phone] Reason for Visit Reason Comments Med Refill Encounter Details Date Type Department Care Team Description 02/16/2022 Refill Department of Family Medicine, Igor Ross P.A.-C. Med Refill [facility], in [address] [place] [phone] [place] [address] [place] [address] [phone] Social History Tobacco Use Types Packs/Day Years [...] have completed or the highest Roland, MEd, KALSOMINER, MARIE) degree you have received? Sex Assigned at Date Recorded Female 06/26/2021 8:35 AM CDT documented as of this encounter Plan of Treatment Not on filedocumented as of this encounter Visit Diagnoses Not on filedocumented in this encounter Care Teams Impregnating Machine Operator Relationship Specialty Start Date End Date Igor Horn P.A.-C. PCP - General 06/14/18 03/15/22 [address] [place] [address] documented as of this encounter
--- OUTSIDE RECORDS SUMMARY | 2022-07-24 10:05 | XMS_ITS | Encounter Summary ---
:1940 Author Organization [facility] Address [address] [place] [address] Care Team Providers Name Role Phone Igor Horn P.A.-C. Primary Care Provider [phone] Encounter Details Date Type Department Care Team Description 03/03/2021 Clinical Communication Division of Allergic Volcheck Valdemar Diseases in Geovani Ryder M.D. [address] 200 [place] [phone] [phone] Social History Tobacco Use Types Packs/Day Years [...] have completed or the highest Roland, Katie, CAPACITY PLANNER, MARIE) degree you have received? Sex Assigned at Date Recorded Female 06/26/2021 8:35 AM CDT documented as of this encounter Plan of Treatment Not on filedocumented as of this encounter Visit Diagnoses Not on filedocumented in this encounter Care Teams Blower Insulator Relationship Specialty Start Date End Date Igor Horn P.A.-C. PCP - General 06/14/18 03/15/22 [address] [place] [address] documented as of this encounter
--- OUTSIDE RECORDS SUMMARY | 2022-07-24 10:05 | XMS_ITS | Encounter Summary ---
:1940 Author Organization [facility] Address 200 [place] [address] Care Team Providers Name Role Phone Igor Horn P.A.-C. Primary Care Provider [phone] Encounter Details Date Type Department Care Team Description 02/15/2021 Hospital Encounter Department of Melissa Horn Essential Primary; Laboratory Medicine Reyna Costa Hypothyroidism Primary; in [place], [address] [place] [address] Hyperlipidemia; [place], [place] Encounter For Screening For Cardiovascular Disorders [address] [facility] [address] [place], [place] [phone] [phone] (Work) [phone] Social History Tobacco Use Types Packs/Day Years [...] have completed or the highest Roland, MEd, WRAPPER AND PRESERVER, MARIE) degree you have received? Sex Assigned [...] Organization Address City/State/ZIP Code Phon e Number [facility] [address] [facility] [place] [address] [place] [address] System in [place] [address] [facility] (ABNORMAL) Lipid Panel (02/15/2021 8:46 AM CDT) athologist Signature Cholesterol, 150 mg/dL 02/15/2021 [place] [...] Organization Address City/State/ZIP Code Phon e Number [facility] [address] [facility] [place] [address] [facility] [place] [address] System in [place] [address] [facility] Comprehensive Metabolic Panel (02/15/2021 8:46 AM [...] CDT eGFR-Black/Afric 83 >=60 02/15/2021 [facility] an Pakistani mL/min/BSA 11:23 AM CDT Comment: ----ADDITIONAL INFORMATION---- [...] Organization Address City/State/ZIP Code Phon e Number [facility]- [address] [place] [address] [place] [address] System in [place] [address] [facility] documented in this encounter Visit Diagnoses Diagnosis Hypertension Essential Primary Hypothyroidism Primary Hyperlipidemia Encounter For Screening For Cardiovascul ar Disorders documented in this encounter Care Teams Center Specialists Relationship Specialty Start Date End Date Igor Horn P.A.-C. PCP - General 06/14/18 03/15/[address] [place] [address] documented as of this encounter
--- OUTSIDE RECORDS SUMMARY | 2022-07-24 10:05 | XMS_ITS | Encounter Summary ---
:1940 Author Organization [facility] Address 200 [place] [address] Care Team Providers Name Role Phone Apolonia Horn P.A.-C. Primary Care Provider [phone] Reason for Visit Reason Comments Communication Derm Encounter Details Date Type Department Care Team Description 05/10/2021 Clinical Department of Steve Horn (Derm) Communication Family MedicineApolonia [facility] [facility] [address] [address] [place], [place] [phone] [phone] (Work) [phone] Social History Tobacco Use Types Packs/Day Years [...] have completed or the highest Roland, MEd, MEDICAL BILLER CODER, MARIE) degree you have received? Sex Assigned at Date Recorded Female 06/26/2021 8:35 AM CDT documented as of this encounter Miscellaneous Notes Telephone Encounter - Hazel Subramanian - 05/11/2021 9:10 AM CDT Thank you! Patient contacted Addendum Note - Apolonia Horn P.A.-C. - 05/10/2021 5:01 PM CDT Addended by: AOPLONIA HORN on: 05/10/2021 05:01 PM Modules accepted: Orders Telephone Encounter - Hazel Subramanian - 05/10/2021 3:14 PM CDT The patient would like to get a skin check. Would you mind placing an order for her to see Dermatology in [place]. Thank you. documented in this encounter Plan of Treatment Not on filedocumented as of this encounter Visit Diagnoses Diagnosis Rash - Primary documented in this encounter Care Teams Line Service Attendant Relationship Specialty Start Date End Date Apolonia Horn P.A.-C. PCP - General 06/14/18 03/15/22 [address] [place] [address] documented as of this encounter
--- OUTSIDE RECORDS SUMMARY | 2022-07-24 10:05 | XMS_ITS | Encounter Summary ---
:1940 Author Organization [facility] Address [address] [place] [address] Care Team Providers Name Role Phone Igor Horn P.A.-C. Primary Care Provider [phone] Encounter Details Date Type Department Care Team Description 10/23/2021 Clinical Communication Department of Igor Byrd, Medicine, [facility], in [address] [address] [place], [place] [phone] (Work) [phone] Social History Tobacco Use Types Packs/Day Years [...] meetings of the More than 4 times r year 03/16/2022 clubs or organizations you [...] have completed or the highest Roland, MEd, PLANNING ANALYST, MARIE) degree you have received? Sex Assigned at Date Recorded Female 06/26/2021 8:35 AM CDT documented as of this encounter Plan of Treatment Not on filedocumented as of this encounter Visit Diagnoses Not on filedocumented in this encounter Care Teams Hand Cell Tuber Relationship Specialty Start Date End Date Igor Horn P.A.-C. PCP - General 06/14/18 03/15/22 [address] [place] [address] documented as of this encounter
--- OUTSIDE RECORDS SUMMARY | 2022-07-24 10:05 | XMS_ITS | Encounter Summary ---
:1940 Author Organization [facility] Address [address] [place] [address] Care Team Providers Name Role Phone Igor Horn P.A.-C. Primary Care Provider [phone] Reason for Visit Reason Comments Med Refill Encounter Details Date Type Department Care Team Description 09/13/2021 Refill Department of Family Medicine, Igor Ross P.A.-C. Med Refill [facility], in [address] [place] [phone] [place] [address] [place] [address] [phone] Social History Tobacco Use Types Packs/Day Years [...] have completed or the highest Roland, MEd, PROTOTYPER, MARIE) degree you have received? Sex Assigned at Date Recorded Female 06/26/2021 8:35 AM CDT documented as of this encounter Miscellaneous Notes Addendum Note - Gerson Reaves L.P.N. - 09/14/2021 1:43 PM FIRE CONTROLMAN Addended by: GERSON REAVES on: 09/14/2021 01:43 PM Modules accepted: Orders CONTROLMAN Telephone Encounter - Gerson Reaves L.P.NAntwan - 09/14/2021 1:40 PM FIRE CONTROLMAN SUBJECTIVE CHIEF COMPLAINT / REASON FOR CALL [...] The following references were used: provider Igor CONTROLMAN documented in this encounter Plan of Treatment Not on filedocumented as of this encounter Visit Diagnoses Not on filedocumented in this encounter Care Teams Housekeeper Home Relationship Specialty Start Date End Date Igor Horn P.A.-C. PCP - General 06/14/18 03/15/22 [address] [place] [phone] documented as of this encounter
--- OUTSIDE RECORDS SUMMARY | 2022-07-24 10:05 | XMS_ITS | Encounter Summary ---
:1940 Author Organization [facility] Address [address] [place] [address] Care Team Providers Name Role Phone Igor Horn P.A.-C. Primary Care Provider [phone] Reason for Visit Reason Comments Med Refill Encounter Details Date Type Department Care Team Description 02/18/2022 Refill Department of Family Medicine, Igor Ross P.A.-C. Med Refill [facility], in [address] [place] [phone] [place] [address] [place] [address] [phone] Social History Tobacco Use Types Packs/Day Years [...] have completed or the highest Roland, MEd, WET PROCESS MILLER HEAD, MARIE) degree you have received? Sex Assigned [...] on filedocumented in this encounter Care Teams Market Risk Specialist Relationship Specialty Start Date End Date Igor Horn P.A.-C. PCP - General 06/14/18 03/15/22 [address] [place] [phone] documented as of this encounter
--- OUTSIDE RECORDS SUMMARY | 2022-07-24 10:05 | XMS_ITS | Encounter Summary ---
:1940 Author Organization [facility] Address [address] [place] [address] Care Team Providers Name Role Phone Igor Horn P.A.-C. Primary Care Provider [phone] Reason for Referral Outpatient (Routine) - Closed Specialty Diagnoses / Procedures Referred By Contact Refer red To Contact Family Medicine Igor Horn P. A.-[facility]. [facility] [address] [address] Referral ID Status Reason Start Date Expiration Date Visits Requ ested Visits Authorized [id number] Closed 02/15/2021 02/15/2022 1 1 Reason for Visit Reason Comments Med Management Discuss Pravastatin 1. Labs completed, No other concerns. Outpatient (Routine) - Closed Specialty Diagnoses / Procedures Referred By Contact Refer marifer To Contact Family Igor Winter P. A.-C. [facility] [address] [address] Referral ID Status Reason Start Date Expiration Date Visits Requ ested Visits Authorized [id number] Closed 02/24/2020 02/23/2021 1 1 Encounter Details Date Type Department Care Team Description 02/15/2021 Comprehensive Visit Department of Coreen Horn (BREANNE) (Primary Dx); Family Igor Little Screening C ancer Colon; [facility], P.[facility].-C. Hypertension Essential Primary; in [place], [address] Hyperlipidemia; [place], [place] Hypothyroidism Primary; [address] [address] Rhinitis Allergic; [place], [place] [phone] General Medica l Examination Adult; [phone] (Work) Screening Mammogram Breast Cancer [phone] Social History Tobacco Use Types Packs/Day Years [...] have completed or the highest Roland, MEd, PARTS TECHNICIAN, MARIE) degree you have received? Sex [...] bothers her more when she was in [place]. Fortunately when she was in [place] her arthritis was much improved. She says this may be getting a little worse now that she is back in [place]. She has been trying some tumeric. She [...] be doing better when she is in [place] #2 Screening Cancer Colon We did discuss colon cancer screening. She is of average risk. She [facility]. We did discuss continuing to do [...] Name Type Priority Associated Diagnoses Order S [facility] Medicine Outpatient Referral Routine Expec michelle: office visit 02/15/2022 (clinic) (Approximate), Expires: 02/16/2024 documented as of this encounter Procedures Procedure Name Priority Date/Time Associated Diagnosis Comme nts COLOGUARD Routine 02/27/2021 9:55 PM Screening Cancer Resul ts for this CDT Colon procedure are i n the results section . documented in this encounter Results Cologuard-Sent Out Lab (02/27/2021 9:55 PM CDT) [facility] Time Signature Result Negative Not Applicable 03/03/2021 [...] 94.7%). These data are based on a national jewish health cross-sectional screening study of 10,00 0 individuals at average risk for colorectal cancer who w ere screened with both Cologuard and colonoscopy. (June Dumas et al, N Engl J Med 2014;370(14):5755-6025) The normal value (reference range) for this assay is negative. COLOG UARD RE-SCREENING RECOMMENDATION: Periodic routine colorec riya cancer screening is an important part of preven tive healthcare for asymptomatic persons at average risk for colorectal cancer. Following a negative Cologuard result, enoch ramirez [place] Cancer Society and U.S. Multi-Society Task Forc e screening guidelines recommend a Cologuard re-scre ening interval of 3 years. References: [place] Cancer Socie ty (ACS). Colorectal cancer prevention and early d etection. [place], [place]: [place] Cancer Society; [updated Jan 28]. https://www.cancer.org/cancer/colon-rect al-cancer/detection- diagnosis-staging/acs-recommendations.ht ml. Accessed June 06, 2018; Yung DK, Med CR, Ernesto DurantK , Colorectal Cancer Screening: Recommendations for Physician s and Patients from the U.S. Multi-Society Task Force on Col orectal Cancer Screening, Am J Gastroenterology 2017; 1 12:5050-1255. TEST TYPE: Composite algorithmic analysi s of [...] interval of every 3 years by the [place] Cancer Soc iety and U.S. Multi-Society Task [...] can be accessed at the following location: www.99.co.com/results. Additional de scription of the Cologuard test process, warnings and pre cautions can be found at www.cologuardtest.com. Rx only. Specimen Anatomical Collection Method Collection Time Receive d Time (Source) Location / / Volume Laterality Stool (Stool) 02/27/2021 9:55 PM 03/01/20 21 3:38 CDT PM CDT Igor Horn P.A.-C. LAB BODY FLUIDS AND STOOLS O RDERABLES Performing Organization Address City/State/ZIP Code Phon e Number [facility] [address] [place], [place] [address] [place] [address] Laboratories [address] [facility], [address] documented in this encounter Visit Diagnoses Diagnosis Asthma Intrinsic (HCC) - Primary Screening Cancer Colon Hypertension Essential Primary Hyperlipidemia Hypothyroidism Primary Rhinitis Allergic General Medical Examination Adult Screening Mammogram Breast Cancer documented in this encounter Care Teams Coach Operator Relationship Specialty Start Date End Date Igor Horn P.A.-C. PCP - General 06/14/18 03/15/22 [address] [place] [address] documented as of this encounter
--- OUTSIDE RECORDS SUMMARY | 2022-07-24 10:05 | XMS_ITS | Encounter Summary ---
:1940 Author Organization [facility] Address [address] [place] [address] Care Team Providers Name Role Phone Igor Horn P.A.-C. Primary Care Provider Reason for Visit Reason Onset Date Comments Testing For Upper Respiratory Virus Symptoms 10/23/2021 Encounter Details Date Type Department Care Team Description 10/23/2021 External Outreach Department of [facility] Kartik Jimenez Contact With And (Suspected) Exposure To COVID-19; Medicine, [facility] John Durant Infection Upper Respiratory Building, in [address] [place], [place] [address] [facility] [address] [place], [place] [phone] [address] (Work) [phone] Social History Tobacco Use Types Packs/Day Years [...] or relatives? How often do you attend confucianism or More than 4 times per year 03/16/2022 synagogue services? Do you belong to any clubs or Yes 03/16/2022 organizations such as confucianism groups, unions, fraternal or athletic groups, or [...] have completed or the highest Roland, MEd, RETAIL ROUTE SUPERVISOR, MARIE) degree you have received? Sex Assigned at Date Recorded Female 06/26/2021 8:35 AM CDT documented as of this encounter Progress Notes Trang Bueno, R.N. - 10/23/2021 9:57 AM CST Encounter created for symptomatic infectious disease screening with possible COVID, Influenza, RSV, and/or Group A Strep testing. NCED REGISTERED NURSE documented in this encounter Plan of Treatment Not on filedocumented as of this encounter Procedures Procedure Name Priority Date/Time Associated Diagnosis Comme nts SARS CORONAVIRUS-2 Routine 10/23/2021 2:57 PM Contact With And Results for this RNA, V ADVANCED REGISTERED NURSE (Suspected) Exposure procedu re are in To COVID-19 the results section. SARS-COV-2, FLU Routine 10/23/2021 2:56 PM Result s for this A+B, AND RSV PCR, V ADVANCED REGISTERED NURSE procedur e are in the results section. RSV RNA PCR DETECT, Routine 10/23/2021 2:56 PM Re sults for this V ADVANCED REGISTERED NURSE procedure are i n the results section. documented in this encounter Results SARS Coronavirus-2 RNA, V Symptomatic (10/23/2021 2:57 PM ADVANCED REGISTERED NURSE) [facility] Method Time Signature SARS-CoV-2 Swab, 10/24/2021 MKTO Specimen Nasopharynx 12:21 PM Source ADVANCED REGISTERED NURSE SARS CoV-2 Undetected Undetected 10/24/2021 MKTO RNA, TMA 12:21 PM ADVANCED REGISTERED NURSE Comment: SARS-CoV-2 RNA absent. This result does not rule out COVID-19 in the patient, as the sensitivity of the test depends o n the timing of the specimen collection and the quality of the specim en. Result should be correlated with patient's history and clinical presentat ion. ----ADDITIONAL INFORMATION---- This molecular amplification test was pe rformed using the Aptima SARS-CoV-2 assay ([employer] on the Techtiums tem under emergency use authorization (EUA) by the U.S. Food and Drug Administ ration. Fact sheets for this EUA assay can be fo und at the following links: For Healthcare Providers: https://www.[employer] a.gov/media/539997/download For Patients: https://www.fda.gov/media/ 771488/download Specimen Anatomical Collection Method Collection Time Receive d Time (Source) Location / / Volume Laterality Varies 10/23/2021 2:57 PM 2 (Nasopharynx) ADVANCED REGISTERED NURSE 10:30 PM ADVANCED REGISTERED NURSE Kartik Jimenez D.O. LAB MICROBIOLOGY - GENERAL O RDERABLES Performing Organization Address City/State/ZIP Code Phon e Number [facility]- [address] [place] [address] [place] [address] System in [place] [address] [place] [address] RSV RNA PCR Detect, V (10/23/2021 2:56 PM ADVANCED REGISTERED NURSE) Analysis Performed At [facility] logist Time Signature RSV RNA PCR Undetected Undetected 10/25/2021 SDSC 1:08 PM ADVANCED REGISTERED NURSE Comment: RSV RNA is absent. RSV Specimen Source Nasopharynx 10/25/2021 1:08 PM ADVANCED REGISTERED NURSE SDSC Comment: ----ADDITIONAL INFORMATION---- Testing was performed using the leann In fluenza A/B & RSV UC assay (Jenniffer [employer] Inc[employer] on the leann 68 00 / 8800 System, and only the RSV portion of this assay has been validated for testing. This test was developed and its performa nce characteristics determined by [facility] in a manner consistent with CLIA requirements. This test has not been cleared or approved by the U.S. Mark d and Drug Administration. Specimen Anatomical Collection Method Collection Time Receive d Time (Source) Location / / Volume Laterality Varies 10/23/2021 2:56 PM 6:15 ADVANCED REGISTERED NURSE PM ADVANCED REGISTERED NURSE Kartik Jimenez D.O. LAB MICROBIOLOGY - GENERAL O RDERABLES Performing Organization Address City/State/ZIP Code Phon e Number [facility] [address] [place], [place] [address] [facility] [place] [address] Laboratory Medicine and Pathology [address] [place] (ABNORMAL) SARS-CoV-2, Flu A+B, and RSV PCR, V (10/23/2021 2:56 PM ADVANCED REGISTERED NURSE) [facility] Method Time Signature Influenza A Detected (A) Undetected 10/24/2021 [facility] RNA PCR 11:22 PM ADVANCED REGISTERED NURSE Comment: Influenza A RNA present. Influenza B RNA PCR Undetected Undetected 10/24/2021 11:22 P M ADVANCED REGISTERED NURSE SDS Comment: Influenza B RNA absent. SARS CoV-2 RNA PCR Undetected Undetected 10/24/2021 11:22 PM ADVANCED REGISTERED NURSE SDS Comment: SARS-CoV-2 RNA absent. This result does not rule out COVID-19 in the patient, as the sensitivity of the test depends o n the timing of the specimen collection and the quality of the specim en. Result should be correlated with patient's history and clinical presentat ion. SARS-CoV-2 & Flu A/B Specimen Source Nasopharynx 0 10/24/2021 11:22 PM ADVANCED REGISTERED NURSE SDS Comment: ----ADDITIONAL INFORMATION---- This PCR test is performed using the cob as SARS-CoV-2 & Influenza A/B assay (Jenniffer [employer] on the c bala 6800 / 8800 Systems, and it has received Emergency Use Authorization (EU A) by the U.S. Food and Drug Administration. Fact sheets for this Emergency Use Autho rization (EUA) assay can be found at the following links: https://www.fda.gov/media/955088/downloa d for Healthcare Providers https://www.fda.gov/media/030532/downloa d for Patients Specimen Anatomical Collection Method Collection Time Receive d Time (Source) Location / / Volume Laterality Varies 10/23/2021 2:56 PM 6:15 ADVANCED REGISTERED NURSE PM ADVANCED REGISTERED NURSE Kartik Jimenez D.O. LAB MICROBIOLOGY - GENERAL O MELINA Performing Organization Address City/State/ZIP Code Phon e Number [facility] [address] [place], [place] [address] [facility] [place] [address] Laboratory Medicine and Pathology [address] [place] documented in this encounter Visit Diagnoses Diagnosis Contact With And (Suspected) Exposure To COVID-19 Infection Upper Respiratory documented in this encounter Additional Health Concerns Infection Onset Date Last Indicated Resolved Time COVID19 Pending 10/23/2021 10/23/2021 10/24/2021 12:22 PM ADVANCED REGISTERED NURSE documented as of this encounter Care Teams Geospatial Engineer Relationship Specialty Start Date End Date Igor Horn P.A.-C. PCP - General 06/14/18 03/15/22 [address] [place] [address] documented as of this encounter
--- OUTSIDE RECORDS SUMMARY | 2022-07-24 10:05 | XMS_ITS | Encounter Summary ---
:1940 Author Organization [facility] Address [address] [place] [address] Care Team Providers Name Role Phone Igor Horn P.A.-C. Primary Care Provider [phone] Reason for Visit Reason Comments Med Refill Encounter Details Date Type Department Care Team Description 06/13/2021 Refill Department of Family Medicine, Igor Ross P.A.-C. Med Refill [facility], in [address] [place] [phone] [place] [address] [place] [address] [phone] Social History Tobacco Use Types Packs/Day Years [...] have completed or the highest Roland, MEd, PADDED BOX SEWER, MARIE) degree you have received? Sex Assigned at Date Recorded Female 06/26/2021 8:35 AM CDT documented as of this encounter Plan of Treatment Not on filedocumented as of this encounter Visit Diagnoses Not on filedocumented in this encounter Care Teams Recreation Attendant Relationship Specialty Start Date End Date Igor Horn P.A.-C. PCP - General 06/14/18 03/15/22 [address] [place] [address] documented as of this encounter
--- OUTSIDE RECORDS SUMMARY | 2022-07-24 10:05 | XMS_ITS | Encounter Summary ---
:1940 Author Organization [facility] Address [address] [place] [address] Care Team Providers Name Role Phone Igor Horn P.A.-C. Primary Care Provider [phone] Reason for Referral Outpatient (Routine) - Closed Specialty Diagnoses / Procedures Referred By Contact Refer red To Contact Diagnoses Asthma Intrinsic (HCC) Valdemar Ma M.D. [facility] Procedures Spirometry [address] [place] [phone] Referral ID Status Reason Start Date Expiration Date Visits Requ ested Visits Authorized [id number] Closed 02/12/2022 02/12/2023 1 1 Encounter Details Date Type Department Care Team Description 02/12/2022 Clinical Communication Division of Allergic Valdemar Ma Diseases in Geovani Ryder M.D. [address] [place] [phone] Social History Tobacco Use Types Packs/Day Years [...] have completed or the highest Roland, MEd, SAP ANALYST, MARIE) degree you have received? Sex [...] Signature VC MAX POST 2.57 L 03/20/2022 [place] 2:58 PM CDT SUITE PostFVC 2.31 L 03/20/2022 [place] 2:58 PM CDT SUITE PostFEV1 1.59 L 03/20/2022 [place] 2:58 PM CDT SUITE FEV1/FVC POST 68.91 % 03/20/2022 [place] 2:58 PM CDT SUITE FEF 25-75 % 0.97 L/s 03/20/2022 [place] 2:58 PM CDT SUITE PEF POST 4.78 L/s 03/20/2022 [place] 2:58 PM CDT SUITE FET POST 16.80 sec 03/20/2022 [place] 2:58 PM CDT SUITE VC MAX PRE 2.24 L 03/20/2022 [place] 2:58 PM CDT SUITE FVC 2.12 L 03/20/2022 [place] 2:58 PM CDT SUITE FEV1 1.40 L 03/20/2022 [place] 2:58 PM CDT SUITE FEV1/FVC 66.11 % 03/20/2022 [place] 2:58 PM CDT SUITE OBI81-06% 0.82 L/s 03/20/2022 [place] 2:58 PM CDT SUITE PEF PRE 4.64 L/s 03/20/2022 [place] 2:58 PM CDT SUITE FET PRE 18.40 sec 03/20/2022 [place] 2:58 PM CDT SUITE SUBSTANCE POST Albuterol 03/20/2022 [place] 2:58 PM CDT SUITE DOSE POST 2 Puff 03/20/2022 [place] 2:58 PM CDT SUITE % PRED VC MAX 91 % % 03/20/2022 [place] 2:58 PM CDT SUITE FVC% 86 % % 03/20/2022 [place] 2:58 PM CDT SUITE FEV1% 75 % % 03/20/2022 [place] 2:58 PM CDT SUITE % PRED 86 % % 03/20/2022 [facility] FEV1/FVC 2:58 PM CDT SUITE % PRED FEF 54 % % 03/20/2022 [place] 25-75% 2:58 PM CDT SUITE % PRED PEF 91 % % 03/20/2022 [facility] 2:58 PM CDT SUITE PRED VC MAX 2.46 03/20/2022 [facility] 2:58 PM CDT SUITE PRED FVC 2.46 03/20/2022 [facility] 2:58 PM CDT SUITE PRED FEV 1 1.87 03/20/2022 [facility] 2:58 PM CDT SUITE PRED FEV1/FVC 77.2 03/20/2022 [facility] 2:58 PM CDT SUITE PRED FEF 1.53 03/20/2022 [facility] 25-75% 2:[address] PRED PEF 5.1 03/20/2022 [facility] 2:58 PM CDT SUITE Specimen (Source) Anatomical Collection Method Collection Time Re ceived Time Location / / Volume Laterality 03/20/2022 8:51 AM CDT Impressions [facility] - 03/20/2022 2:58 PM C DT within normal limits Narrative This result has an attachment that is no t available. Procedure Note Valdemar Ma M.D. - 03/20/2022For matting of this note might be different from the original. IMPRESSION: within normal limits Valdemar Ma M.D. PFT ORDERABLES Performing Organization Address City/State/ZIP Code Phon e Number [facility] documented in this encounter Visit Diagnoses Diagnosis Asthma Intrinsic (HCC) - Primary Asthma Intrinsic (HCC) documented in this encounter Care Teams Claim Representative Relationship Specialty Start Date End Date Igor Horn P.A.-C. PCP - General 06/14/18 03/15/[address] [place] [phone] documented as of this encounter
--- OUTSIDE RECORDS SUMMARY | 2022-07-24 10:05 | XMS_ITS | Encounter Summary ---
:1940 Author Organization [facility] Address [address] [place] [address] Care Team Providers Name Role Phone Igor Horn P.A.-C. Primary Care Provider [phone] Encounter Details Date Type Department Care Team Description 02/19/2022 Clinical Communication Department of Igor Byrd, Medicine, [facility], in [address] [address] [place], [place] [phone] [address] (Work) [phone] Social History Tobacco Use Types Packs/Day Years [...] have completed or the highest Roland, MEd, MIMEOGRAPHER, MARIE) degree you have received? Sex Assigned [...] Call back Name of Medication (if relevant): [facility] Please send all scheduling replies to scheduling pool. documented in this encounter Plan of Treatment Not on filedocumented as of this encounter Visit Diagnoses Not on filedocumented in this encounter Care Teams Regional Sales Coordinator Relationship Specialty Start Date End Date Igor Horn P.A.-C. PCP - General 06/14/18 03/15/22 [address] [place] [phone] documented as of this encounter
--- OUTSIDE RECORDS SUMMARY | 2022-07-24 10:05 | XMS_ITS | Encounter Summary ---
:1940 Author Organization [facility] Address [address] [place] [address] Care Team Providers Name Role Phone Iogr Horn P.A.-C. Primary Care Provider [phone] Reason for Visit Reason Comments Med Refill Encounter Details Date Type Department Care Team Description 02/06/2021 Refill Department of Family Medicine, Igor Ross P.A.-C. Med Refill [facility], in [address] [place] [phone] [place] [address] [place] [address] [phone] Social History Tobacco Use Types Packs/Day Years [...] or slept in a mcc (including now)? Education Answer Date Recorded What [...] on filedocumented in this encounter Care Teams Professional System Administrator Relationship Specialty Start Date End Date Igor Horn P.A.-C. PCP - General 06/14/18 03/15/22 [address] [place] [address] documented as of this encounter
--- OUTSIDE RECORDS SUMMARY | 2022-07-24 10:05 | XMS_ITS | Encounter Summary ---
:1940 Author Organization [facility] Address [address] [place] [address] Care Team Providers Name Role Phone Igor Horn P.A.-C. Primary Care Provider [phone] Reason for Visit Reason Comments Med Refill Encounter Details Date Type Department Care Team Description 07/04/2021 Refill Department of Family Medicine, Igor Ross P.A.-C. Med Refill [facility], in [address] [place] [phone] [place] [address] [place] [address] [phone] Social History Tobacco Use Types Packs/Day Years [...] have completed or the highest Roland, MEd, AUTOMATION OPERATOR, MARIE) degree you have received? Sex [...] incomplete Primary Provider: Igor Horn P.A.-C. Pharmacy: [facility] documented in this encounter Plan of Treatment Not on filedocumented as of this encounter Visit Diagnoses Not on filedocumented in this encounter Care Teams Orthotic And Prosthetic Technician Relationship Specialty Start Date End Date Igor Horn P.A.-C. PCP - General 06/14/18 03/15/22 [address] [place] [address] documented as of this encounter
--- OUTSIDE RECORDS SUMMARY | 2022-07-24 10:05 | XMS_ITS | Encounter Summary ---
:1940 Author Organization [facility] Address [address] [place] [address] Care Team Providers Name Role Phone Elsewhere, Pcp Primary Care Provider Unavailable Reason for Visit Reason Comments Med Refill Encounter Details Date Type Department Care Team Description 02/19/2022 Refill Department of Family Medicine, Igor Ross P.A.-C. Med Refill [facility], in [address] [place] [address] [place] [address] [place] [address] [phone] Social History Tobacco Use Types Packs/Day Years [...] or relatives? How often do you attend druze or More than 4 times per year 03/16/2022 mormon services? Do you belong to any clubs or Yes 03/16/2022 organizations such as druze groups, unions, fraternal or athletic groups, or [...] have completed or the highest Roland, Katie, BEEF GRINDER, MARIE) degree you have received? Sex Assigned at Date Recorded Female 06/26/2021 8:35 AM CDT documented as of this encounter Plan of Treatment Not on filedocumented as of this encounter Visit Diagnoses Not on filedocumented in this encounter Additional Health Concerns Infection Onset Date Last Indicated Resolved Time COVID19 Pending 03/16/2022 03/16/2022 03/16/2022 11:54 PM CDT documented as of this encounter Care Teams Trial Judge Relationship Specialty Start Date End Date Elsewhere, Pcp PCP - General Internal Medicine 03/16/22 documented as of this encounter
--- OUTSIDE RECORDS SUMMARY | 2022-07-24 10:05 | XMS_ITS | Encounter Summary ---
:[address] [facility] Address [address] [place] [address] Care Team Providers Name Role Phone Igor Horn P.A.-C. Primary Care Provider [phone] Reason for Visit Reason Comments Med Refill Encounter Details Date Type Department Care Team Description 02/17/2022 Refill Department of Family Medicine, Igor Ross P.A.-C. Med Refill [facility], in [address] [place] [phone] [place] [address] [place] [address] [phone] Social History Tobacco Use Types Packs/Day Years [...] have completed or the highest Roland, MEd, TUBE AND MANIFOLD BUILDER, MARIE) degree you have received? Sex Assigned at Date Recorded Female 06/26/2021 8:35 AM CDT documented as of this encounter Miscellaneous Notes Telephone Encounter - Jacob Parish - 02/19/2022 7:18 AM CDT Added to another encounter documented in this encounter Plan of Treatment Not on filedocumented as of this encounter Visit Diagnoses Not on filedocumented in this encounter Care Teams Methods Examiner Relationship Specialty Start Date End Date Igor Horn P.A.-C. PCP - General 06/14/18 03/15/22 [address] [place] [address] documented as of this encounter
--- OUTSIDE RECORDS SUMMARY | 2022-07-24 10:05 | XMS_ITS | Encounter Summary ---
:1940 Author Organization [facility] Address [address] [place] [address] Care Team Providers Name Role Phone Igor Horn P.A.-C. Primary Care Provider [phone] Encounter Details Date Type Department Care Team Description 08/01/2021 Orders Only [facility] Sa tanisha Arora M.D. [address] [place], [place] [phone] (Wo rk) Social History [...] have completed or the highest Roland, MEd, GRADER OPERATOR, MARIE) degree you have received? Sex Assigned at Date Recorded Female 06/26/2021 8:35 AM CDT documented as of this encounter Plan of Treatment Not on filedocumented as of this encounter Visit Diagnoses Not on filedocumented in this encounter Care Teams Avian Keeper Relationship Specialty Start Date End Date Igor Horn P.A.-C. PCP - General 06/14/18 03/15/22 [address] [place] [address] documented as of this encounter
--- OUTSIDE RECORDS SUMMARY | 2022-07-24 10:05 | XMS_ITS | Encounter Summary ---
:1940 Author Organization [facility] Address [address] [place] [address] Care Team Providers Name Role Phone Igor Horn P.A.-C. Primary Care Provider [phone] Reason for Visit Reason Comments Med Refill Encounter Details Date Type Department Care Team Description 02/23/2022 Refill Department of Family Medicine, Igor Ross P.A.-C. Med Refill [facility], in [address] [place] [phone] [place] [address] [place] [address] [phone] Social History Tobacco Use Types Packs/Day Years [...] have completed or the highest Roland, MEd, STEAM SHOVEL OILER, MARIE) degree you have received? Sex Assigned at Date Recorded Female 06/26/2021 8:35 AM CDT documented as of this encounter Miscellaneous Notes Telephone Encounter - Lauren Hidalgo - 02/23/2022 10:06 AM CDT Rhett Parkus - Pt will out on Saturday, please send to [facility] documented in this encounter Plan of Treatment Not on filedocumented as of this encounter Visit Diagnoses Not on filedocumented in this encounter Care Teams Deputy Insurance Commissioner Relationship Specialty Start Date End Date Igor Horn P.A.-C. PCP - General 06/14/18 03/15/22 [address] [place] [address] documented as of this encounter
--- OUTSIDE RECORDS SUMMARY | 2022-07-24 10:05 | XMS_ITS | Encounter Summary ---
:1940 Author Organization [facility] Address [address] [place] [address] Care Team Providers Name Role Phone Igor Horn P.A.-C. Primary Care Provider [phone] Encounter Details Date Type Department Care [...] have completed or the highest Roland, MEd, SALES SERVICE PROMOTER, MARIE) degree you have received? Sex Assigned [...] on filedocumented in this encounter Care Teams Editor House Organ Relationship Specialty Start Date End Date Igor Horn P.A.-C. PCP - General 06/14/18 03/15/[address] [place] [phone] documented as of this encounter
--- OUTSIDE RECORDS SUMMARY | 2022-07-24 10:06 | XMS_ITS | Encounter Summary ---
:1940 Author Organization [facility] Address [address] [place] [address] Care Team Providers Name Role Phone Igor Horn P.A.-C. Primary Care Provider [phone] Encounter Details Date Type Department Care Team Description 04/19/2020 Orders Only Department of Family Anirudh Cronin Urinary Tract Medicine, Cl [place]tw[place], (Primar y Dx) Clinic, in Cristiana Stone [place] [address] [facility] 300 [place] [phone] Social History Tobacco Use Types Packs/Day Years [...] Primary documented in this encounter Care Teams Information Technology Coordinator Relationship Specialty Start Date End Date Igor Horn P.A.-C. PCP - General 06/14/18 03/15/22 [address] [place] [address] documented as of this encounter
--- OUTSIDE RECORDS SUMMARY | 2022-07-24 10:06 | XMS_ITS | Encounter Summary ---
:1940 Author Organization [facility] Address [address] [place] [address] Care Team Providers Name Role Phone Igor Horn P.A.-C. Primary Care Provider [phone] Encounter Details Date Type Department Care Team Description 05/12/2020 Hospital Encounter Department of Laboratory Igor Horn, Dysuria Medicine in Shivam Stone [place] 225 [facility] 300 [place] [phone] (Wo rk) Social History Tobacco Use Types [...] Miscellaneous Notes Result Encounter Note - Fide Durant, LAntwanP.N. - 05/12/2020 1:30 PM CDT Name of person contacted: Patient Relationship to patient: Not applicable Call back number: [phone] Apprentice Carpenter: Not applicable Information provided: Patient notified of results and recommendations as listed above by TORIE De Oliveira. Patient was instructed to hand picker and start the Bactrim. retail salesperson/patient received and understood education/information provided: Yes retail salesperson/patient agreed to the Plan of Care: Yes documented in this encounter Plan of Treatment Not on filedocumented as of this encounter Procedures Procedure Name Priority Date/Time Associated Comments Diagnosis URINALYSIS WITH Routine 05/12/2020 11:31 Dysuria Results for this MICROSCOPIC IF AM CDT procedure are in INDICATED, U the results section. CA URINALYSIS AUTO WO Routine 05/12/2020 11:31 Re [...] 11:31 05/12/2020 AM CDT 11:37 AM CDT Igor Horn P.A.-C. LAB URINE ORDERABLES Performing Organization Address City/State/ZIP Code Phon e Number [address] LAB [address] [place] [address] [address] (ABNORMAL) Bacterial Culture, Aerobic + [...] coli Ampicillin SUSCEPTIBILITY, <=2 mcg/mL: Barbara ceptible ALEJNADRA (MCG/ML) Escherichia coli Ampicillin + Sulbactam SUSCEPTIBILITY, [...] Organization Address City/State/ZIP Code Phon e Number [facility]- [address] [place] [id number] [place] [address] [place] [address] System in [address] (ABNORMAL) Urinalysis with Microscopic if Indicated (05/12/2020 11:31 AM CDT) athologist Signature Source Midstream 05/12/2020 FB60 11:41 [...] 8.0 05/12/2020 11:41 AM CDT FB60 Specific [place] 1.020 1.001 - 1.035 05/12/2020 11:41 AM CDT FB60 Urobilinogen 0.2 0.2 - 1.0 mg/dL 05/12/2020 11:41 AM C DT FB60 Specimen Anatomical Collection Method Collection Time Receive d Time (Source) Location / / Volume Laterality Urine (Urine, 05/12/2020 11:31 05/12/2020 Clean Catch) AM CDT 11:37 AM CDT Igor Horn P.A.-C. LAB URINE ORDERABLES Performing Organization Address City/State/ZIP Code Phon e Number [address] [place] [address] [facility] [address] [place] [address] System [address] documented in this encounter Visit Diagnoses Diagnosis Dysuria documented in this encounter Care Teams Induction Coordination Engineer Relationship Specialty Start Date End Date Igor Horn P.A.-C. PCP - General 06/14/18 03/15/22 [address] [place] [phone] documented as of this encounter
--- OUTSIDE RECORDS SUMMARY | 2022-07-24 10:06 | XMS_ITS | Encounter Summary ---
:1940 Author Organization [facility] Address [address] [place] [address] Care Team Providers Name Role Phone Igor Horn P.A.-C. Primary Care Provider [phone] Reason for Referral Outpatient (Routine) - Closed Specialty Diagnoses / Procedures Referred By Contact Refer red To Contact Family Medicine Igor Horn P. A.-C. [facility] [address] [phone] Referral ID Status Reason Start Date Expiration Date Visits Requ ested Visits Authorized [id number] Closed 02/24/2020 02/23/2021 1 1 Reason for Visit Reason Comments Annual Exam Labs done 02-18-20 Outpatient (Routine) - Closed Specialty Diagnoses / Procedures Referred By Contact Refer red To Contact Family Medicine Igor Horn P. A.-C. [facility] [address] [phone] Referral ID Status Reason Start Date Expiration Date Visits Requ ested Visits Authorized [id number] Closed 02/12/2019 02/12/2020 1 1 Encounter Details Date Type Department Care Team Description 02/24/2020 Comprehensive Visit Department of Jacey Horn Essential Primary (Primary Dx); Family MedicineIgor, Asthma Intr insic (HCC); [facility], P.A.-C. Bundle Branch Block Left; in [place], [address] Rhinitis Allergic; [place] Ankur, JOHN Hypothyroidism Primary; [address] [address] Hyperlipidemia; [facility] [place] [phone] Encounter For Screening For Cardiovascular Disorders [phone] (Work) [phone] Social History Tobacco Use Types Packs/Day Years [...] was 25 minutes of which 15 was [id number] coordination of care and counseling Igor Horn P.A.-C. documented in this encounter Plan of Treatment Scheduled Referrals Name Type Priority Associated Diagnoses Order [facility] Medicine Outpatient Referral Routine Expec michelle: [...] Organization Address City/State/ZIP Code Phon e Number [facility]- [address] [facility] [address] [place] [address] System in [place] [address] [facility] (ABNORMAL) Lipid Panel (02/15/2021 8:46 [...] Organization Address City/State/ZIP Code Phon e Number [facility]- [address] [facility] [place] [address] [facility] [facility] [place] [facility] [place] [address] System in [place] [address] [facility] Comprehensive Metabolic Panel (02/15/2021 8:46 [...] CDT eGFR-Black/Afric 83 >=60 02/15/2021 [place] an Greek mL/min/BSA 11:23 AM CDT Comment: ----ADDITIONAL INFORMATION---- [...] Organization Address City/State/ZIP Code Phon e Number [facility]- [address] [place] [address] [facility] [place] [address] System in [place] [address] [facility] documented in this encounter Visit Diagnoses Diagnosis Hypertension Essential Primary - Primary Asthma Intrinsic (HCC) Bundle Branch Block Left Rhinitis Allergic Hypothyroidism Primary Hyperlipidemia Encounter For Screening For Cardiovascul ar Disorders documented in this encounter Care Teams Special Education Administrator Relationship Specialty Start Date End Date Igor Horn P.A.-C. PCP - General 06/14/18 03/15/22 [address] [place] [address] documented as of this encounter
--- OUTSIDE RECORDS SUMMARY | 2022-07-24 10:06 | XMS_ITS | Encounter Summary ---
:1940 Author Organization [facility] Address [address] [place] [address] Care Team Providers Name Role Phone Igor Horn P.A.-C. Primary Care Provider [phone] Encounter Details Date Type Department Care Team Description 11/21/2020 Orders Only [facility] PCP [facility] Sa tanisha Arora M.D. [address] [place], [place] [phone] (Wo rk) Social History [...] on filedocumented in this encounter Care Teams Ambulatory Care Coordinator Relationship Specialty Start Date End Date Igor Horn P.A.-C. PCP - General 06/14/18 03/15/[address] [place] [phone] documented as of this encounter
--- OUTSIDE RECORDS SUMMARY | 2022-07-24 10:06 | XMS_ITS | Encounter Summary ---
:1940 Author Organization [facility] Address [address] [place] [address] Care Team Providers Name Role Phone Igor Horn P.A.-C. Primary Care Provider [phone] Encounter Details Date Type Department Care Team Description 12/02/2020 Orders Only Department of [facility] Igor Horn, Medicine, [facility], PNeda Jones in [facility] [address] [place] [address] [place] [address] [phone] Social History Tobacco Use Types Packs/Day Years [...] filedocumented in this encounter Care Teams Academic Guidance Specialist Relationship Specialty Start Date End Date Igor Horn P.A.-C. PCP - General 06/14/18 03/15/22 [address] [place] [phone] documented as of this encounter
--- OUTSIDE RECORDS SUMMARY | 2022-07-24 10:06 | XMS_ITS | Encounter Summary ---
:1940 Author Organization [facility] Address [address] [place] [address] Care Team Providers Name Role Phone Igor Horn P.A.-C. Primary Care Provider [phone] Encounter Details Date Type Department Care Team Description 12/01/2020 Orders Only Department of [facility] Igor Horn, Medicine, [facility], PNeda Jones in [facility] [address] [place] [address] [place] [address] [phone] Social History Tobacco Use Types Packs/Day Years [...] on filedocumented in this encounter Care Teams Thermostat Mechanic Relationship Specialty Start Date End Date Igor Horn P.A.-C. PCP - General 06/14/18 03/15/22 [address] [place] [address] documented as of this encounter
--- OUTSIDE RECORDS SUMMARY | 2022-07-24 10:06 | XMS_ITS | Encounter Summary ---
:1940 Author Organization [facility] Address [address] [place] [address] Care Team Providers Name Role Phone Igor Horn P.A.-C. Primary Care Provider [phone] Encounter Details Date Type Department Care Team Description 01/10/2021 Clinical Communication Division of Allergic Volcheck [facility] in Geovani Ryder M.D. [address] [place] [phone] Social History Tobacco Use Types Packs/Day Years [...] on filedocumented in this encounter Care Teams Tiler'S Assistant Relationship Specialty Start Date End Date Igor Horn P.A.-C. PCP - General 06/14/18 03/15/22 [address] [place] [phone] documented as of this encounter
--- OUTSIDE RECORDS SUMMARY | 2022-07-24 10:06 | XMS_ITS | Encounter Summary ---
:1940 Author Organization [facility] Address [address] [place] [address] Care Team Providers Name Role Phone Igor Horn P.A.-C. Primary Care Provider [phone] Reason for Visit Reason Comments MELANIA Nurse Line Triage Encounter Details Date Type Department Care Team Description 04/19/2020 [facility]; [facility], Misha Rios Triage Clinic, [facility] [phone] [place] ([facility]) [address] [place] [address] Social History Tobacco Use Types Packs/Day Years [...] and water aren't available, use a hand guest relations associate that contains at least 60% alcohol. Avoid [...] develop please contact your provider. Educational Resource: https://www.cdc.gov/coronavirus/2019-ncov/dcngfog-ghfbihs-klkh/index.html SELF CARE FOR ALL PATIENTS: Take breaks [...] care: Yes The following references were used: [facility] novel coronavirus (COVID- 19) resources documented in this encounter Plan of Treatment Not on filedocumented as of this encounter Visit Diagnoses Not on filedocumented in this encounter Care Teams Manager Car Relationship Specialty Start Date End Date Igor Horn P.A.-C. PCP - General 06/14/18 03/15/22 [address] [place] [phone] documented as of this encounter
--- OUTSIDE RECORDS SUMMARY | 2022-07-24 10:06 | XMS_ITS | Encounter Summary ---
:1940 Author Organization [facility] Address [address] [place] [address] Care Team Providers Name Role Phone Igor Horn P.A.-C. 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 Keratosis Seborrheic Inflamed 200 [facility] 200 [place] [phone] Social History Tobacco Use Types Packs/Day Years [...] or relatives? How often do you attend voodoo or More than 4 times per year 03/16/2022 baptist services? Do you belong to any clubs or Yes 03/16/2022 organizations such as voodoo groups, unions, fraternal or athletic groups, or [...] Inflamed documented in this encounter Care Teams Honey Blender Relationship Specialty Start Date End Date Igor Horn P.A.-C. PCP - General 06/14/18 03/15/[address] [place] [phone] documented as of this encounter
--- OUTSIDE RECORDS SUMMARY | 2022-07-24 10:06 | XMS_ITS | Encounter Summary ---
:1940 Author Organization [facility] Address [address] [place] [address] Care Team Providers Name Role Phone Igor Horn P.A.-C. Primary Care Provider Encounter Details Date Type Department Care Team Description 02/18/2020 Hospital Encounter Department of Justina, Hyperlip idemia; Laboratory Medicine Reyna Costa Hypothyroidism Primary; in [place], [address] [place] [address] Hypertension Essential Primary [place], [place] 300 [facility] [address] [place], [place] [phone] [address] (Work) [phone] Social History Tobacco Use Types Packs/Day Years [...] meetings of the More than [address] [facility] year 03/16/2022 clubs or organizations you [...] have completed or the highest Roland, MEd, BOLT HEADER, MARIE) degree you have received? Sex Assigned [...] mg Take 1 capsule 90 capsule 3 05/06/201902/24/2020 capsule (200 mg total) by mouth daily. With a meal. fluticasone Inhale 1 puff 3 each 12/28/2019 12/28/2020 propion-salmeteroL (Advair daily. Diskus) 100-50 mcg/actuation diskus inhaler hydroCHLOROthiazide Take 1 tablet by 90 tablet 3 02/10/2020 02/06/2021 (HYDRODIURIL) 25 mg tablet mouth once daily. levothyroxine (SYNTHROID, Take 1 tablet by 90 tablet 3 /03/202002/06/2021 LEVOTHROID) 75 mcg tablet mouth once daily. [...] supplements. ??If the result does not [facility] clinical observations, repeat testing after patient refrains fr om the use of supplements for at least 12 hours. Specimen Anatomical Collection Method Collection Time Receive d Time (Source) Location / / Volume Laterality Blood (Blood, 02/18/2020 9:05 AM 02/18/20 20 Venous) CDT 10:30 AM CDT Igor Horn P.A.-C. LAB BLOOD ADD-ON Performing Organization Address City/State/ZIP Code Phon e Number [facility]- [address] [place] [address] [place] [address] System in [place] [address] (ABNORMAL) Lipid Panel (02/18/2020 9:05 AM CDT) [...] Organization Address City/State/ZIP Code Phon e Number [facility]- [address] [facility] [place] [address] [place] [address] System in [place] [address] Comprehensive Metabolic Panel (02/18/2020 9:05 [...] CDT eGFR-Black/Afric 89 >=60 02/18/2020 [place] an Trinidadian mL/min/BSA 11:02 AM CDT Comment: ----ADDITIONAL INFORMATION---- [...] Organization Address City/State/ZIP Code Phon e Number [facility]- [address] [place] [address] [place] [address] System in [place] [address] [facility] documented in this encounter Visit Diagnoses Diagnosis Hyperlipidemia Hypothyroidism Primary Hypertension Essential Primary documented in this encounter Care Teams Operations Director Relationship Specialty Start Date End Date Igor Horn P.A.-C. PCP - General 06/14/18 03/15/22 [address] [place] [address] documented as of this encounter
--- OUTSIDE RECORDS SUMMARY | 2022-07-24 10:06 | XMS_ITS | Encounter Summary ---
:1940 Author Organization [facility] Address [address] [place] [address] Care Team Providers Name Role Phone Igor Horn P.A.-C. Primary Care Provider [phone] Reason for Referral Outpatient (Routine) - Closed Specialty Diagnoses / Procedures Referred By Contact Refer red To Contact Allergy and Immunology Valdemar Ma [place] M.D. [address] [place] [phone] Referral ID Status Reason Start Date Expiration Date Visits Requ ested Visits Authorized [id number] Closed 01/10/2021 01/10/2022 1 1 Scheduling Instructions Patient prefers mid-morning appointments after February 09, 2021 Reason for Visit Reason Comments Symptom Assessment Encounter Details Date Type Department Care Team Description 01/09/2021 Clinical Communication Division of Kat Spain ptom Assessment Allergic Diseases D, R.N. in [place], [address] [place] [address] [place] [address] [place], [place] [phone] (Work) [phone] Social History Tobacco Use Types Packs/Day Years [...] or relatives? How often do you attend orthodox or More than 4 times per year 03/16/2022 hoahaoism services? Do you belong to any clubs or Yes 03/16/2022 organizations such as orthodox groups, unions, fraternal or athletic groups, [...] appointment with Dr. Ma upon return to [place]. She expressed that she will return February [...] be seen for asthma symptoms while in [place] for the winter. ASSESSMENT/PLAN The following home [...] on filedocumented in this encounter Care Teams Biofuels Operations Manager Relationship Specialty Start Date End Date Igor Horn P.A.-C. PCP - General 06/14/18 03/15/22 225 [place] [address] documented as of this encounter
--- OUTSIDE RECORDS SUMMARY | 2022-07-24 10:06 | XMS_ITS | Encounter Summary ---
:1940 Author Organization [facility] Address [address] [place] [address] Care Team Providers Name Role Phone Igor Horn P.A.-C. Primary Care Provider [phone] Reason for Visit Reason Comments MELANIA Nurse Line Encounter Details Date Type Department Care Team Description 07/24/2020 Clinical Communication Division of MELANIA Crabtree Nurse Telma [facility] Internal Cecilia Cordova Medicine, Kishore Gr, R.N. [facility], in [address] [place] [address] [place] [address] [place], [place] (Work) [phone] Social History Tobacco Use Types Packs/Day Years [...] and water aren't available, use a hand retirement specialist that contains at least 60% alcohol. Avoid [...] since you were tested. Educational Resource: https://www.cdc.gov/coronavirus/2019-ncov/ smhvlql-gqaklgz-wqgg/index.html Education: Patient/caregiver able to teach back Patient agreeable to plan of care: Yes The following references were used: [facility] novel coronavirus (COVID- 19) resources CDC web site https://www.cdc.gov/coronavirus/2019-ncov/summary.html Nursing judgement documented in this encounter Plan of Treatment Not on filedocumented as of this encounter Visit Diagnoses Not on filedocumented in this encounter Care Teams Electric Meter Installer Relationship Specialty Start Date End Date Igor Horn P.A.-C. PCP - General 06/14/18 03/15/22 225 [place] [phone] documented as of this encounter
--- OUTSIDE RECORDS SUMMARY | 2022-07-24 10:06 | XMS_ITS | Encounter Summary ---
:1940 Author Organization [facility] Address 200 [place] [address] Care Team Providers Name Role Phone Igor Horn P.A.-C. Primary Care Provider [phone] Encounter Details Date Type Department Care Team Description 05/12/2020 Orders Only Department of Family Igor Horn Dy suria (Primary Dx) Medicine, [place] Shivam [facility], in [address] [address] [place], [place] [phone] [address] (Work) [phone] Social History Tobacco Use Types Packs/Day Years [...] + Susc, Urine (05/12/2020 11:31 AM CDT) [facility] Method Time Signature Urine Culture ESCHERICHIA [...] Horn P.A.-C. LAB MICROBIOLOGY - GENERAL O MADYERABLES Performing Organization Address City/State/ZIP Code Phon e Number [facility]- [address] [place] [address] [place] [address] [address] (ABNORMAL) Urinalysis with Microscopic if Indicated [...] 8.0 05/12/2020 11:41 AM CDT FB60 Specific [place] 1.020 1.001 - 1.035 05/12/2020 11:41 AM CDT FB60 Urobilinogen 0.2 0.2 - 1.0 mg/dL 05/12/2020 11:41 AM C DT FB60 Specimen Anatomical Collection Method Collection Time Receive d Time (Source) Location / / Volume Laterality Urine (Urine, 05/12/2020 11:31 05/12/2020 Clean Catch) AM CDT 11:37 AM CDT Igor Horn P.A.-C. LAB URINE ORDERABLES Performing Organization Address City/State/ZIP Code Phon e Number [address] [place] [address] [facility] [address] [place] [address] System in [address] documented in this encounter Visit Diagnoses Diagnosis Dysuria - Primary documented in this encounter Care Teams Radio Frequency Technician Relationship Specialty Start Date End Date Igor Horn P.A.-C. PCP - General 06/14/18 03/15/22 225 [facility] [place] [address] documented as of this encounter
--- OUTSIDE RECORDS SUMMARY | 2022-07-24 10:06 | XMS_ITS | Encounter Summary ---
:1940 Author Organization [facility] Address [address] [place] [address] Care Team Providers Name Role Phone Igor Horn P.A.-C. Primary Care Provider [phone] Encounter Details Date Type Department Care Team Description 05/12/2020 Orders Only Department of Family Igor Horn, In fection Urinary Medicine, [place] [facility], in [place], [address] [place] [address] 300 [facility] [address] [place], [place] [phone] [address] (Work) [phone] Social History Tobacco Use Types Packs/Day Years [...] of the More than 4 times [facility] year 03/16/2022 clubs or organizations [...] Tract documented in this encounter Care Teams Tax Collection Coordinator Relationship Specialty Start Date End Date Igor Horn P.A.-C. PCP - General 06/14/18 03/15/22 225 [place] [phone] documented as of this encounter
--- OUTSIDE RECORDS SUMMARY | 2022-07-24 10:06 | XMS_ITS | Encounter Summary ---
:1940 Author Organization [facility] Address 200 [place] [address] Care Team Providers Name Role Phone Igor Horn P.A.-C. Primary Care Provider [phone] Encounter Details Date Type Department Care Team Description 04/19/2020 Hospital Encounter Department of Laboratory Anirudh Cronin I., Dysuria Medicine in Roque Stone M.D. [place] 300 [facility] 300 [place] [address] [phone] (Wo rk) Social History Tobacco Use Types [...] or relatives? How often do you attend spiritism or More than 4 times per year 03/16/2022 yarsanism services? Do you belong to any clubs or Yes 03/16/2022 organizations such as spiritism groups, unions, fraternal or athletic groups, or school groups? How often do you attend meetings of the More than 4 times [facility] year 03/16/2022 clubs or organizations you belong [...] Take 1 tablet by 90 tablet 3 05/03/202002/06/2021 LEVOTHROID) 75 mcg tablet mouth once daily. [...] patient: Not applicable Call back number: [phone] Hospice Superintendent: Not applicable Information provided: Patient notified of results and Dr. Cronin's recommendations. Patient will poultry picker and begin Bactrim. crewman armoured personnel carrier m113/patient received and understood education/information provided: Yes crewman armoured personnel carrier m113/patient agreed to the Plan of Care: Yes Result Encounter Note - Anirudh Cronin M.B.B.S., MSimon. - 04/19/2020 2:50 PM CDT Urinalysis indicates [...] are in INDICATED, U the results section. ME URINALYSIS AUTO WO Routine 04/19/2020 1:52 PM [...] Organization Address City/State/ZIP Code Phon e Number [facility]- [address] [place] [address] [facility] [place] [address] System in [place] [address] (ABNORMAL) Urinalysis with Microscopic [...] 8.0 04/19/2020 2:09 PM CDT FB60 Specific [place] 1.020 1.001 - 1.035 04/19/2020 2:09 PM [...] Address City/State/ZIP Code Phon e Number [address] [place] [address] [facility] [place] [address] System [address] documented in this encounter Visit Diagnoses Diagnosis Dysuria documented in this encounter Care Teams Locomotive Boilermaker Relationship Specialty Start Date End Date Igor Horn P.A.-C. PCP - General 06/14/18 03/15/22 225 [place] [address] documented as of this encounter
--- OUTSIDE RECORDS SUMMARY | 2022-07-24 10:06 | XMS_ITS | Encounter Summary ---
:1940 Author Organization [facility] Address 200 [place] [address] Care Team Providers Name Role Phone Igor Horn P.A.-C. Primary Care Provider [phone] Reason for Visit Reason Comments Med Refill Encounter Details Date Type Department Care Team Description 02/09/2020 Refill Department of Family Medicine Igor Rodríguez P.A.-C. Med Refill in [place], [place] 225 [facility] 225 [place] [address] [place] [address] [phone] Social History Tobacco Use Types Packs/Day Years [...] or relatives? How often do you attend baptism or More than 4 times per year 03/16/2022 spiritism services? Do you belong to any clubs or Yes 03/16/2022 organizations such as baptism groups, unions, fraternal or athletic groups, or school groups? How often do you attend meetings of the More than 4 times [facility] year 03/16/2022 clubs or organizations you belong [...] have completed or the highest Roland, MEd, QUILTING SUPERVISOR, MARIE) degree you have received? Sex Assigned at Date Recorded Female 06/26/2021 8:35 AM CDT documented as of this encounter Plan of Treatment Not on filedocumented as of this encounter Visit Diagnoses Not on filedocumented in this encounter Care Teams Lead Sprinkler Relationship Specialty Start Date End Date Igor Horn P.A.-C. PCP - General 06/14/18 03/15/22 225 [place] [address] documented as of this encounter
--- OUTSIDE RECORDS SUMMARY | 2022-07-24 10:06 | XMS_ITS | Encounter Summary ---
:1940 Author Organization [facility] Address [address] [place] [address] Care Team Providers Name Role Phone Igor Horn P.A.-C. Primary Care Provider [phone] Encounter Details Date Type Department Care Team Description 04/19/2020 Clinical Communication Department of Igor Byrd [place] [facility], Bertha Langley [facility], in [address] [address] [place], [place] [phone] [phone] (Work) [phone] Social History Tobacco Use Types Packs/Day Years [...] More than 4 times per year 03/16/2022 advent services? Do you belong to any clubs or Yes 03/16/2022 organizations such as yarsanism groups, unions, fraternal or athletic groups, or [...] level of Professional school degree (e.g ., MD, 02/19/2020 school you have completed or the DDS, DVM, DEBORAH) highest degree you have received? Sex Assigned at Date Recorded Female 06/26/2021 8:35 AM CDT documented as of this encounter Miscellaneous Notes Telephone Encounter - Lauren Payton L.PAntwanN. - 04/19/2020 10:32 AM CDT Images from the original note were not included. SUBJECTIVE CHIEF COMPLAINT / REASON FOR CALL No chief complaint on file. PLAN The following information was provided: Anirudh Cronin M.B.B.S., MAde [place]; [facility] Fbfb Nurse 19 minutes ago [...] 8.0 04/19/2020 2:09 PM CDT FB60 Specific [place] 1.020 1.001 - 1.035 04/19/2020 2:09 PM CDT FB60 Urobilinogen 0.2 0.2 - 1.0 mg/dL 04/19/2020 2:09 PM CD T FB60 Specimen Anatomical Collection Method Collection Time Receive d Time (Source) Location / / Volume Laterality Urine (Urine, 04/19/2020 1:52 PM 04/19/20 2:01 Clean Catch) CDT PM CDT Anirudh Nevarez M.D. LAB URINE ORDERABLES Performing Organization Address City/State/ZIP Code Phon e Number [facility] [address] [place] [address] [facility]60 [facility] [place] [address] System [address] documented in this encounter Visit Diagnoses Diagnosis Dysuria - Primary documented in this encounter Care Teams Lead Burner Supervisor Relationship Specialty Start Date End Date Igor Horn P.A.-C. PCP - General 06/14/18 03/15/22 225 [place] [address] documented as of this encounter
--- OUTSIDE RECORDS SUMMARY | 2022-07-24 10:06 | XMS_ITS | Encounter Summary ---
:1940 Author Organization [facility] Address [address] [place] [address] Care Team Providers Name Role Phone Igor Horn P.A.-C. Primary Care Provider [phone] Reason for Visit Reason Comments COVID Inquiry Encounter Details Date Type Department Care Team Description 03/22/2020 Clinical Communication Department of Mervat Guy COVID Inquiry Dermatology in , HOGSHEAD PACKER, C.N.P.[place], [place] D.N.P. [address] [facility] 200 [place] [address] [phone] Social History Tobacco Use Types Packs/Day Years [...] - 03/22/2020 12:52 PM CDT (Note for [facility] locations only: If the patient states they [...] last 14 days? no Route reply to: rst rossy rogo desk Scheduling Contact Number: [phone] documented in this encounter Plan of Treatment Not on filedocumented as of this encounter Visit Diagnoses Not on filedocumented in this encounter Care Teams Executive Sales Assistant Relationship Specialty Start Date End Date Igor Horn P.A.-C. PCP - General 06/14/18 03/15/[address] [place] [phone] documented as of this encounter
--- OUTSIDE RECORDS SUMMARY | 2022-07-24 10:06 | XMS_ITS | Encounter Summary ---
:1940 Author Organization [facility] Address [address] [place] [address] Care Team Providers Name Role Phone Igor Horn P.A.-C. Primary Care Provider [phone] Reason for Visit Reason Comments Communication symptoms Encounter Details Date Type Department Care Team Description 05/10/2020 Clinical Department of Steve Horn Family MedicineIgor, (symptoms) [facility] [address] [address] [place], [place] [phone] (Work) [phone] Social History Tobacco Use Types Packs/Day Years [...] meetings of the More than [address] [facility] year 03/16/2022 clubs or organizations [...] you would like a UC. Uses Olivia Stone Current Can Nursing/Provider leave a detailed message: Did the patient refuse triage through Nurse line? (for symptom based concerns): Action Needed: please clal Name of Medication (if relevant): documented in this encounter Plan of Treatment Not on filedocumented as of this encounter Visit Diagnoses Not on filedocumented in this encounter Care Teams Radiology Interventional Physician Relationship Specialty Start Date End Date Roethler, Igor, P.A.-C. PCP - General 06/14/18 03/15/22 225 [place] [phone] documented as of this encounter
--- OUTSIDE RECORDS SUMMARY | 2022-07-24 10:06 | XMS_ITS | Encounter Summary ---
:1940 Author Organization [facility] Address [address] [place] [address] Care Team Providers Name Role Phone Igor Horn P.A.-C. Primary Care Provider [phone] Reason for Visit Reason Comments COVID Nurse Line Encounter Details Date Type Department Care Team Description 02/15/2020 Clinical Communication Department of LUIS Casas Nurse Line Dermatology in Provider [place], [place] [address] [place] [address] Social History Tobacco Use Types Packs/Day Years [...] have completed or the highest Roland, MEd, SENIOR TELECOMMUNICATIONS SPECIALIST, MARIE) degree you have received? Sex [...] on filedocumented in this encounter Care Teams Analytics Architect Relationship Specialty Start Date End Date Igor Horn P.A.-C. PCP - General 06/14/18 03/15/[address] [place] [phone] documented as of this encounter
--- OUTSIDE RECORDS SUMMARY | 2022-07-24 10:06 | XMS_ITS | Encounter Summary ---
:1940 Author Organization [facility] Address [address] [place] [address] Care Team Providers Name Role Phone Igor Horn P.A.-C. Primary Care Provider [phone] Encounter Details Date Type Department Care Team Description 05/10/2020 Nurse Triage Department of [facility], [facility], [address] [place] [address] [place] [address] [place] [address] Social History Tobacco Use Types Packs/Day Years [...] filedocumented in this encounter Care Teams Public Address System Mechanic Relationship Specialty Start Date End Date Igor Horn P.A.-C. PCP - General 06/14/18 03/15/22 225 [place] [address] documented as of this encounter
--- OUTSIDE RECORDS SUMMARY | 2022-07-24 10:06 | XMS_ITS | Encounter Summary ---
:1940 Author Organization [facility] Address [address] [place] [address] Care Team Providers Name Role Phone Igor Horn P.A.-C. Primary Care Provider [phone] Encounter Details Date Type Department Care Team Description 03/14/2020 Clinical Communication Department of Igor Byrd [facility], Bertha Langley [facility], in [address] [address] [place], [place] [phone] (Work) [phone] Social History Tobacco Use Types Packs/Day Years [...] no Route reply to: Scheduling Contact Number: [phone] documented in this encounter Plan of Treatment Not on filedocumented as of this encounter Visit Diagnoses Not on filedocumented in this encounter Care Teams Paving Block Cutter Relationship Specialty Start Date End Date Igor Horn P.A.-C. PCP - General 06/14/18 03/15/[address] [place] [phone] documented as of this encounter
--- OUTSIDE RECORDS SUMMARY | 2022-07-24 10:06 | XMS_ITS | Encounter Summary ---
:1940 Author Organization [facility] Address [address] [place] [address] Care Team Providers Name Role Phone Igor Horn P.A.-C. Primary Care Provider [phone] Encounter Details Date Type Department Care Team Description 05/16/2020 Orders Only Department of Family Tammy Garvin APR N, Medicine, [facility], C.N. P. in [facility] [address] [place] [address] [place], [place] [phone] Social History Tobacco Use Types Packs/Day Years [...] meetings of the More than [address] [facility] year 03/16/2022 clubs or organizations you [...] on filedocumented in this encounter Care Teams Gum Machine Filler Relationship Specialty Start Date End Date Igor Horn P.A.-C. PCP - General 06/14/18 03/15/22 225 [place] [phone] documented as of this encounter
--- OUTSIDE RECORDS SUMMARY | 2022-07-24 10:06 | XMS_ITS | Encounter Summary ---
:1940 Author Organization [facility] Address 200 [place] [address] Care Team Providers Name Role Phone Igor Horn P.A.-C. Primary Care Provider [phone] Reason for Referral Outpatient (Routine) - Closed Specialty Diagnoses / Procedures Referred By Contact Refer red To Contact Diagnoses Screening Mammogram Breast Cancer Igor Horn P.A.-C. [facility] Region Procedures BI Breast Screening Bilateral with Tomosynthesis 225 [place] [address] Referral ID Status Reason Start Date Expiration Date Visits Requ ested Visits Authorized [id number] Closed 03/14/2020 03/14/2021 1 1 Reason for Visit Outpatient (Routine) - Closed Specialty Diagnoses / Procedures Referred By Contact Refer red To Contact Diagnoses Screening Mammogram Breast Cancer Igor Horn P.A.-C. [facility] Region Procedures BI Breast Screening Bilateral with Tomosynthesis 225 [place] [address] Referral ID Status Reason Start Date Expiration Date Visits Requ ested Visits Authorized [id number] Closed 03/14/2020 03/14/2021 1 1 Encounter Details Date Type Department Care Team Description 04/11/2020 Hospital Encounter Department of Merlyn Horn Mammogram Radiology in Shivam Costa Breast Cancer [place], [place] [address] [place], [place] [phone] Social History Tobacco Use Types Packs/Day [...] More than 4 times per year 03/16/2022 pentecostal services? Do you belong to any clubs [...] TOMOSYNTHESIS Current study was evaluated with a [employer] Aided Detection (CAD) system. INDICATION: ??Screening mammogram. [...] TOMOSYNTHESIS Current study was evaluated with a [employer] Aided Detection (CAD) system. INDICATION: Screening mammogram. [...] Cancer documented in this encounter Care Teams Radiology Nurse Relationship Specialty Start Date End Date Igor Horn P.A.-C. PCP - General 06/14/18 03/15/22 225 [place] [phone] documented as of this encounter
--- OUTSIDE RECORDS SUMMARY | 2022-07-24 10:06 | XMS_ITS | Encounter Summary ---
:1940 Author Organization [facility] Address 200 [place] [address] Care Team Providers Name Role Phone Igor Horn P.A.-C. Primary Care Provider [phone] Reason for Visit Reason Comments Medication Problem Encounter Details Date Type Department Care Team Description 04/19/2020 Clinical Communication Department of Ranulfo Cronin Family Medicine, [facility] in [address] [address] [place], [place] [phone] (Work) [phone] Social History Tobacco Use Types Packs/Day Years [...] to get it before the pharmacy closes. Clin Application Specialist called and spoke with pharmacist who stated there was a flag on the antibiotic and patient's lisinopril for concern of increasing potassium levels. Clin Application Specialist spoke with patient's PCP regarding the above concern who stated that since the patient is only taking the antibiotic for 3 days, this should not be of concern. Clin Application Specialist notified both pharmacist and patient of PCP's response. PLAN Disposition/Recommendation: Patient to mixing picker tender Bactrim that was previously prescribed Information/Education: patient/caller able to teach back Caller agreeable to plan of care: yes The following references were used: provider Igor Horn Telephone Encounter - Karla Martinez - 04/19/2020 3:17 PM CDT Reason for Communication: Lashonda from [facility] calling, rx for Bactrim has drug [...] on filedocumented in this encounter Care Teams Internist Medical Doctor Md Relationship Specialty Start Date End Date Igor Horn P.A.-C. PCP - General 06/14/18 03/15/22 225 [place] [phone] documented as of this encounter
--- OUTSIDE RECORDS SUMMARY | 2022-07-24 10:06 | XMS_ITS | Encounter Summary ---
:1940 Author Organization [facility] Address 200 [place] [address] Care Team Providers Name Role Phone Igor Horn P.A.-C. Primary Care Provider [phone] Reason for Visit Reason Comments Med Refill Encounter Details Date Type Department Care Team Description 12/28/2020 Refill Department of Family Medicine, Igor Ross P.A.-C. Med Refill [facility], in [address] [place] [phone] [place] [address] [place] [address] [phone] Social History Tobacco Use Types Packs/Day Years [...] More than 4 times per year 03/16/2022 mormonism services? Do you belong to any clubs [...] on filedocumented in this encounter Care Teams Pulverizer Operator Relationship Specialty Start Date End Date Igor Horn P.A.-C. PCP - General 06/14/18 03/15/22 [address] [place] [phone] documented as of this encounter
--- OUTSIDE RECORDS SUMMARY | 2022-07-24 10:07 | XMS_ITS | Encounter Summary ---
:1940 Author Organization [facility] Address [address] [place] [address] Care Team Providers Name Role Phone Igor Horn P.A.-C. Primary Care Provider [phone] Reason for Visit Reason Onset Date Comments Recent asthma flare 10/27/2018 Encounter Details Date Type Department Care Team Description 10/27/2018 Clinical Communication Division of Selena Ma asthma flare Allergic Diseases Valdemar Olivo M.D. in [address] [place] [address] [place], [place] [phone] (Work) [phone] Social History Tobacco Use Types Packs/Day Years [...] meetings of the More than 4 times [facility] year 03/16/2022 clubs or organizations you belong [...] Valdemar Ma M.D. - 10/28/2018 3:14 PM STRIPPER CUTTER MACHINE Note reviewed. Recommend continuing the prednisone 10mg day for two more days. If continuing to do well can stop then. Would keep the Advair at 1 puff twice daily for two weeks. Thanks, Dr. Ma PPER CUTTER MACHINE Telephone Encounter - Alpa De R.N. - 10/27/2018 10:52 AM STRIPPER CUTTER MACHINE HISTORY OF PRESENT ILLNESS A phone call was returned to Ms. Cedeño who is currently wintering in [place], [place]. [facility] that one week ago she noted some [...] during the extended stay. She returned to [place] on October 05, 2018. She is seeking recommendationsfrom Dr. Ma. She is aware that he is not in the [facility]. The following portions of the patient's history were reviewed and updated as appropriate: current medications, medical history and problem list. ASSESSMENT / PLAN Patient information will be forwarded to Dr. Ma for review. Disposition/Recommendation: provider notified and awaiting provider recommendations Education: patient/caller able to teach back Caller agreeable to plan of care: yes The following references were used: nursing clinical judgement PPER CUTTER MACHINE Telephone Encounter - Karina Perdomo - 10/27/2018 10:41 AM CST She had an asthma flare but [place] She wants to know what to do going forward. PPER CUTTER MACHINE documented in this encounter Plan of Treatment Not on filedocumented as of this encounter Visit Diagnoses Not on filedocumented in this encounter Care Teams Caramel Candy Maker Helper Relationship Specialty Start Date End Date Igor Horn P.A.-C. PCP - General 06/14/18 03/15/22 [address] [place] [phone] documented as of this encounter
--- OUTSIDE RECORDS SUMMARY | 2022-07-24 10:07 | XMS_ITS | Encounter Summary ---
:1940 Author Organization [facility] Address [address] [place] [address] Care Team Providers Name Role Phone Igor Horn P.A.-C. Primary Care Provider [phone] Reason for Referral Outpatient (Routine) - Closed Specialty Diagnoses / Procedures Referred By Contact Refer red To Contact Family Medicine Igor Horn P. A.-C. [address] [address] Referral ID Status Reason Start Date Expiration Date Visits Requ ested Visits Authorized [id number] Closed 02/12/2019 02/12/2020 1 1 Outpatient (Routine) - Closed Specialty Diagnoses / Procedures Referred By Contact Refer red To Contact Family Medicine Igor Horn P. A.-C. [address] [address] Referral ID Status Reason Start Date Expiration Date Visits Requ ested Visits Authorized [id number] Closed 02/12/2019 02/12/2020 1 1 Reason for Visit Reason Comments Med Refill Annual medication renewal/re viewed for the year. Would like 90 day supply with the 3 ref ills. Breast Cancer Screening Patient states she would lik e to get a mammogram in [place]. Order is already in chart. Outpatient (Routine) - Closed Specialty Diagnoses / Procedures Referred By Contact Refer red To Contact Family Medicine Igor Horn P. A.-C. [facility] Region [address] [place] [address] Referral ID Status Reason Start Date Expiration Date Visits Requ ested Visits Authorized [id number] Closed 08/25/2018 08/25/2019 1 1 Encounter Details Date Type Department Care Team Description 02/12/2019 Comprehensive Visit Department of Paige Hornli pidemia (Primary Dx); Family Medicine in [place], Hypothyro idism Primary; [place], [place] Shivam Pain Knee Right; [address] [facility] 225 [facility] Rhinitis Allergic; [place], [place] Asthma Intrinsi c ([facility]); [phone] Hypertension Essential Primary; [phone] [facility] (Work) Social History Tobacco Use [...] More than 4 times per year 03/16/2022 uatsdin services? Do you belong to any clubs [...] Body Mass Index 38.57 08/19/2018 2:24 PM FINGERPRINT CLASSIFIER documented in this encounter H&P Notes Igor Horn P.A.-C. - 02/12/2019 8:45 AM CDT CHIEF COMPLAINT / REASON FOR VISIT Ainsley Cedeño is a 78 y.o. female who presents for evaluation of Med Refill (Annualmedication renewal/reviewed for the year. Would like 90 day supply with the 3 refills.) and Breast Cancer Screening (Patient states she would like to get a mammogram in [place]. Order is already in chart.). HISTORY OF PRESENT ILLNESS Ainsley presents today for her yearly history and physical. For the most part she has been in good health. She has asthma she sees a physician in [place] for this. She has hypertension this is well controlled she has hyperlipidemia this is well controlled she has hypothyroidism this is well controlled. 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 She has allergies that are [...] She will continue to follow with her portable pinch riveter in [place] she uses her inhalers regularly #6 Hypertension [...] Hormone - Sensitive) (02/18/2020 9:05 AM CDT) athologist Signature TSH, Sensitive 1.9 0.3 - [...] Organization Address City/State/ZIP Code Phon e Number [facility] [address] [place] [address] [place] [address] System in [place] [address] (ABNORMAL) Lipid Panel [...] Organization Address City/State/ZIP Code Phon e Number [facility] [address] [place] [address] [place] [address] System in [place] [address] [facility] Comprehensive Metabolic Panel (02/18/2020 9:05 AM CDT) [...] 89 >=60 02/18/2020 [place] an Citizen [place] mL/min/BSA 11:02 AM CDT Comment: ----ADDITIONAL INFORMATION---- [...] Organization Address City/State/ZIP Code Phon e Number [facility]- [address] [place] [address] [place] [address] System in [place] [address] (TTE) 2D ECHO DOPPLER COLOR (03/18/2019 2:54 PM CDT) [facility] Method Time Signature Ejection Fraction 66 [...] effusion. For the complete report, see the [employer] Documents below. See PDF For Result Procedure Note Wicho Flores M.D. - 03/18/2019Form atting of this note might be different from the original. For the complete report, see the [employer] Documents below. Final Impressions 1. Aortic valve [...] Heart documented in this encounter Care Teams Psychotherapist Counselor Relationship Specialty Start Date End Date Igor Horn P.A.-C. PCP - General 06/14/18 03/15/22 [address] [place] [address] documented as of this encounter
--- OUTSIDE RECORDS SUMMARY | 2022-07-24 10:07 | XMS_ITS | Encounter Summary ---
:1940 Author Organization [facility] Address 200 [place] [address] Care Team Providers Name Role Phone Igor Horn P.A.-C. Primary Care Provider [phone] Reason for Visit Reason Comments Med Refill Encounter Details Date Type Department Care Team Description 12/28/2019 Refill Department of Family Medicine, Igor Ross P.A.-C. Med Refill [facility], in [address] [place] [phone] [place] [address] [place] [address] [phone] Social History Tobacco Use Types Packs/Day Years [...] of the More than 4 times [facility] year 03/16/2022 clubs or organizations [...] have completed or the highest Roland, MEd, PILOT BOAT OPERATOR, MARIE) degree you have received? Sex [...] on filedocumented in this encounter Care Teams Alum Mixer Relationship Specialty Start Date End Date gIor Horn P.A.-C. PCP - General 06/14/18 03/15/22 [address] [place] [address] documented as of this encounter
--- OUTSIDE RECORDS SUMMARY | 2022-07-24 10:07 | XMS_ITS | Encounter Summary ---
:1940 Author Organization [facility] Address [address] [place] [address] Care Team Providers Name Role Phone Igor Horn P.A.-C. Primary Care Provider [phone] Encounter Details Date Type Department Care Team Description 12/25/2018 Clinical Communication Department of [facility], Internal Medicine in [place], [place] [address] [phone] [phone] Social History Tobacco Use Types Packs/Day Years [...] on filedocumented in this encounter Care Teams Kst Operator Relationship Specialty Start Date End Date Igor Horn P.A.-C. PCP - General 06/14/18 03/15/22 [address] [place] [address] documented as of this encounter
--- OUTSIDE RECORDS SUMMARY | 2022-07-24 10:07 | XMS_ITS | Encounter Summary ---
:1940 Author Organization [facility] Address [address] [place] [address] Care Team Providers Name Role Phone Igor Horn P.A.-C. Primary Care Provider [phone] Encounter Details Date Type Department Care Team Description 08/20/2018 Orders Only Department of [facility] Igor Horn, Medicine, [facility], P.AAntwan -[place] in [facility] [address] [place] [address] [place] [address] [phone] Social History Tobacco Use Types Packs/Day Years [...] on filedocumented in this encounter Care Teams Tear Down Worker Relationship Specialty Start Date End Date Igor Horn P.A.-C. PCP - General 06/14/18 03/15/[address] [place] [phone] documented as of this encounter
--- OUTSIDE RECORDS SUMMARY | 2022-07-24 10:07 | XMS_ITS | Encounter Summary ---
:1940 Author Organization [facility] Address [address] [place] [address] Care Team Providers Name Role Phone Igor Horn P.A.-C. Primary Care Provider [phone] Encounter Details Date Type Department Care Team Description 12/24/2019 Refill Department of Family Medicine, [place] Ross P.A.-C. [facility], in [address] [place] [phone] [place] [address] [place] [address] [phone] Social History Tobacco Use Types Packs/Day Years [...] have completed or the highest Roland, MEd, CRAYON GRADER, MARIE) degree you have received? Sex Assigned at Date Recorded Female 06/26/2021 8:35 AM CDT documented as of this encounter Plan of Treatment Not on filedocumented as of this encounter Visit Diagnoses Not on filedocumented in this encounter Care Teams Congregational Care Pastor Relationship Specialty Start Date End Date Igor Horn P.A.-C. PCP - General 06/14/18 03/15/22 [address] [place] [phone] documented as of this encounter
--- OUTSIDE RECORDS SUMMARY | 2022-07-24 10:07 | XMS_ITS | Encounter Summary ---
:1940 Author Organization [facility] Address [address] [place] [address] Care Team Providers Name Role Phone Igor Horn P.A.-C. Primary Care Provider [phone] Encounter Details Date Type Department Care Team Description 04/07/2019 Orders Only Department of Family Tammy Garvin APR N, Medicine, [facility], C.N. P. in [facility] [address] [place] [address] [place], [place] [address] [phone] Social History Tobacco Use Types Packs/Day Years [...] More than 4 times per year 03/16/2022 baptism services? Do you belong to any clubs or Yes 03/16/2022 organizations such as druze groups, unions, fraternal or athletic groups, or school groups? How often do you attend meetings of the More than 4 times [facility] year 03/16/2022 clubs or organizations [...] have completed or the highest Roland, MEd, FITNESS AND WELLNESS DIRECTOR, MARIE) degree you have received? Sex Assigned at Date Recorded Female 06/26/2021 8:35 AM CDT documented as of this encounter Plan of Treatment Not on filedocumented as of this encounter Visit Diagnoses Not on filedocumented in this encounter Care Teams Jewel Bearing Polisher Relationship Specialty Start Date End Date Igor Horn P.A.-C. PCP - General 06/14/18 03/15/22 [address] [place] [address] documented as of this encounter
--- OUTSIDE RECORDS SUMMARY | 2022-07-24 10:07 | XMS_ITS | Encounter Summary ---
:1940 Author Organization [facility] Address [address] [place] [address] Care Team Providers Name Role Phone Igor Horn P.A.-C. Primary Care Provider [phone] Encounter Details Date Type Department Care Team Description 04/30/2019 Orders Only Department of [facility] Igor Horn, Medicine, [facility], P.AAntwan -[place] in [facility] [address] [facility] [address] [place] [address] [place] [address] [phone] Social History Tobacco Use Types Packs/Day Years [...] have completed or the highest Roland, MEd, CROSS TIE CUTTER, MARIE) degree you have received? Sex Assigned at Date Recorded Female 06/26/2021 8:35 AM CDT documented as of this encounter Plan of Treatment Not on filedocumented as of this encounter Visit Diagnoses Not on filedocumented in this encounter Care Teams Hide Tanner Relationship Specialty Start Date End Date Igor Horn P.A.-C. PCP - General 06/14/18 03/15/22 [address] [place] [phone] documented as of this encounter
--- OUTSIDE RECORDS SUMMARY | 2022-07-24 10:07 | XMS_ITS | Encounter Summary ---
:1940 Author Organization [facility] Address [address] [place] [address] Care Team Providers Name Role Phone Igor Horn P.A.-C. Primary Care Provider [phone] Encounter Details Date Type Department Care Team Description 05/01/2019 Hospital Encounter Department of Justina, General Medical Examination Adult; Radiology in Shivam Costa Pain Knee Right [place], [place] [address] [place] [address] [phone] Social History Tobacco Use Types Packs/Day Years [...] have completed or the highest Roland, MEd, HYDROELECTRIC PLANT STRUCTURAL ENGINEER, MARIE) degree you have received? Sex [...] Igor Horn P.A.-C. IMG DIAGNOSTIC IMAGING PROCE REY documented in this encounter Visit Diagnoses Diagnosis General Medical Examination Adult Pain Knee Right documented in this encounter Care Teams Irrigation Equipment Remover Relationship Specialty Start Date End Date Igor Horn P.A.-C. PCP - General 06/14/18 03/15/22 [address] [place] [address] documented as of this encounter
--- OUTSIDE RECORDS SUMMARY | 2022-07-24 10:07 | XMS_ITS | Encounter Summary ---
:1940 Author Organization [facility] Address [address] [place] [address] Care Team Providers Name Role Phone Igor Horn P.A.-C. 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 [facility] [address] [place] [address] Referral ID Status Reason Start Date Expiration Date Visits V isits Requested Authorized [id number] Closed Specialty 03/23/2019 03/22/2020 1 1 Services Required Encounter Details Date Type Department Care Team Description 04/07/2019 Comprehensive Visit Department of Roro Mayes, Dermato heliosis (Primary Dx); Dermatology in [place] Malignant Neoplasm Of Forearm Squamous C ell Carcinoma Right; [place], [address] [facility] Skin Per kassie History; [address] Keratosis Seborrheic Inflamed; [address] [place], [place] Keratosis Seborrheic; [place] [address] [place]; [phone] Adamaris Salmeron Social History Tobacco Use Types [...] have completed or the highest Roland, MEd, CREATIVE ASSISTANT, MARIE) degree you have received? Sex Assigned at Date Recorded Female 06/26/2021 8:35 AM CDT documented as of this encounter Consult Notes Roro Mayes M.D. - 04/07/2019 3:40 PM CDT DERMATOLOGY CONSULT Supervised by: Dr. Dawna Quezada ([id number]). Patient seen and discussed with supervising email production consultant, Dr. Quezada, who evaluated the patient [...] Salmeron documented in this encounter Care Teams Heel Builder Machine Relationship Specialty Start Date End Date Igor Horn P.A.-C. PCP - General 06/14/18 03/15/22 [address] [place] [address] documented as of this encounter
--- OUTSIDE RECORDS SUMMARY | 2022-07-24 10:07 | XMS_ITS | Encounter Summary ---
:1940 Author Organization [facility] Address [address] [place] [address] Care Team Providers Name Role Phone Igor Horn P.A.-C. Primary Care Provider [phone] Encounter Details Date Type Department Care Team Description 03/18/2019 Hospital Encounter Department of [place] Horn Mur mur Heart Cardiovascular Diseases PO[place] in [facility] 300 [place] [address] [phone] Social History Tobacco Use Types Packs/Day Years [...] ECHO DOPPLER COLOR (03/18/2019 2:54 PM CDT) [facility] Method Time Signature Ejection Fraction 66 [...] Heart documented in this encounter Care Teams Veterinary Surgery Technologist Relationship Specialty Start Date End Date Igor Horn P.A.-C. PCP - General 06/14/18 03/15/22 [address] [place] [address] documented as of this encounter
--- OUTSIDE RECORDS SUMMARY | 2022-07-24 10:07 | XMS_ITS | Encounter Summary ---
:1940 Author Organization [facility] Address [address] [place] [address] Care Team Providers Name Role Phone Igor Horn P.A.-C. Primary Care Provider [phone] Reason for Visit Reason Comments Other Has many questions she would like answered today, She brought a list with her. 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 Appointment Request (Routine) - Closed Specialty Diagnoses / Procedures Referred By Contact Refer red To Contact Family Medicine Referral ID Status Reason Start Date Expiration Date Visits Requ ested Visits Authorized [id number] Closed 09/15/2019 09/14/2020 1 1 Encounter Details Date Type Department Care Team Description 09/28/2019 Office Visit Department of Family [place] Horn Pa in Knee Right (Primary Dx); Medicine in [place], [place]. Pain Low Back; [address] Body Mass Index 30-39.9 Adult; [address] [place], [place] [address] [phone] Social History Tobacco Use Types Packs/Day Years [...] 03/16/2022 organizations such as orthodoxy groups, unions, fraTerraWi or athletic groups, or school groups? How [...] have completed or the highest Roland, MEd, THERAPY TECHNICIAN, MARIE) degree you have received? Sex Assigned at Date Recorded Female 06/26/2021 8:35 AM CDT documented as of this encounter Last Filed Vital Signs Vital Sign Reading Time Taken Comments Blood Pressure 135/66 09/28/2019 10:18 AM BODS DEVELOPER Pulse 76 09/28/2019 10:15 AM BODS DEVELOPER Temperature 36 ??C (96.8 ??F) 09/28/2019 10:15 AM BODS DEVELOPER Respiratory Rate 16 09/28/2019 10:15 AM BODS DEVELOPER Oxygen Saturation 97% 09/28/2019 10:15 AM BODS DEVELOPER Inhaled Oxygen Concentration - - Weight 101 kg (222 lb 7.1 oz) 09/28/2019 10:15 AM BODS DEVELOPER Height 160.6 cm (5' 3.23) 09/28/2019 10:15 AM BODS DEVELOPER Body Mass Index 39.12 09/28/2019 10:15 AM BODS DEVELOPER documented in this encounter Progress Notes Igor Horn P.A.-C. - 09/28/2019 10:30 AM CST CHIEF COMPLAINT [...] pain issues. She isplanning to go to [place] for the winter and the warm air has been very beneficial for her in the past and she is excited about doing that she is planning to return to [place] in February. OBJECTIVE Vitals: 09/28/19 1015 09/28/19 [...] her physical therapy once she returns to [place]. We stressed the importance of doing nonweightbearing [...] todaywas 25 minutes of which 20 was [id number] coordination of care and counseling Igor Horn P.A.-C. DEVELOPER documented in this encounter Plan of Treatment Not on filedocumented as of this encounter Visit Diagnoses Diagnosis Pain Knee Right - Primary Pain Low Back Unspecified Obesity Body Mass Index 30-39.9 Adult Bundle Branch Block Left documented in this encounter Care Teams Multimedia Editor Relationship Specialty Start Date End Date Igor Horn P.A.-C. PCP - General 06/14/18 03/15/22 [address] [place] [phone] documented as of this encounter
--- OUTSIDE RECORDS SUMMARY | 2022-07-24 10:07 | XMS_ITS | Encounter Summary ---
:1940 Author Organization [facility] Address [address] [place] [address] Care Team Providers Name Role Phone Igor Horn P.A.-C. Primary Care Provider [phone] Reason for Visit Reason Onset Date Comments Asthma flare update 10/31/2018 Encounter Details Date Type Department Care Team Description 10/31/2018 Clinical Communication Division of Arnulfo Ma flare update Allergic Diseases Valdemar Olivo M.D. in [address] [place] [address] [place], [place] [phone] (Work) [phone] Social History Tobacco Use Types Packs/Day Years [...] of the More than 4 times [facility] year 03/16/2022 clubs or organizations [...] following references were used: provider Dr. Ma ST COATER DEVELOPER Telephone Encounter - Valdemar Ma M.D. - 10/31/2018 3:54 PM RESIST COATER DEVELOPER Cale Parrish, Notes reviewed. Would recommend continuing the prednisone 5mg twice a day for the next 3 days, Then if doing well, can decrease to 5mg once a day for three days, then can stop. Thanks, Dr. Ma ST COATER DEVELOPER Telephone Encounter - Jodie Shaw R.N. - [...] [facility] Ainsley is seeking his recommendations prior to the upcoming weekend. ST COATER DEVELOPER Telephone Encounter - Karina Perdomo - 10/31/2018 9:51 AM CST Calling with update on asthma flare. Need further guidance for the weekend. ST COATER DEVELOPER documented in this encounter Plan of Treatment Not on filedocumented as of this encounter Visit Diagnoses Not on filedocumented in this encounter Care Teams Orchard Sprayer Relationship Specialty Start Date End Date Igor Horn P.A.-C. PCP - General 06/14/18 03/15/[address] [place] [address] [place] [address] documented as of this encounter
--- OUTSIDE RECORDS SUMMARY | 2022-07-24 10:07 | XMS_ITS | Encounter Summary ---
:1940 Author Organization [facility] Address 200 [place] [address] Care Team Providers Name Role Phone Igor Horn P.A.-C. Primary Care Provider [phone] Encounter Details Date Type Department Care Team Description 10/16/2019 Orders Only Department of Family Demian Page R.N. Medicine, [facility], [address] [place] [address] [place] [address] [place] [address] Social History Tobacco Use [...] More than 4 times per year 03/16/2022 orthodox services? Do you belong to any [...] 03/23/2019 you have completed or the highest oRland, Katie, FUNDING SPECIALIST, MARIE) degree you have received? Sex Assigned at Date Recorded Female 06/26/2021 8:35 AM CDT documented as of this encounter Plan of Treatment Not on filedocumented as of this encounter Visit Diagnoses Not on filedocumented in this encounter Care Teams Chief Librarian Branch Relationship Specialty Start Date End Date Igor Horn P.A.-C. PCP - General 06/14/18 03/15/22 [address] [place] [address] documented as of this encounter
--- OUTSIDE RECORDS SUMMARY | 2022-07-24 10:07 | XMS_ITS | Encounter Summary ---
:1940 Author Organization [facility] Address [address] [place] [address] Care Team Providers Name Role Phone Igor Horn P.A.-C. Primary Care Provider [phone] Reason for Visit Reason Comments Pre-op Exam Preop for right TKA. [facility]. with Dr. Nickerson on 05/05/19. Outpatient (Routine) - Closed Specialty Diagnoses / Procedures Referred By Contact Refer red To Contact General Surgery Diagnoses General Medical Examination Adult Igor Horn, [facility] P.A.-C. [address] [place] [address] Referral ID Status Reason Start Date Expiration Date Visits Requ ested Visits Authorized [id number] Closed 04/06/2019 04/05/2020 1 1 Encounter Details Date Type Department Care Team Description 04/30/2019 Office Visit Department of Family Igor Horn Pa in Knee Right (Primary Dx); Medicine in [facility] General Medical Examination Adult; [place] [address] [facility] Left [address] [place] [address] Social History Tobacco Use Types [...] 03/16/2022 organizations such as denominational groups, unions, fraUniversity of [place] or athletic groups, or school groups? How [...] have completed or the highest Roland, MEd, HOSIERY PAIRER, MARIE) degree you have received? Sex Assigned [...] evaluation of Pre-op Exam (Preopfor right TKA. [facility]. with Dr. Nickerson on 05/05/19.). HISTORY OF [...] Igor Horn P.A.-C. IMG DIAGNOSTIC IMAGING PROCE DURES ECG 12 Lead (04/30/2019 9:47 AM CDT) P athologist Signature Ventricular Rate 63 BPM MUSE ECG/Min LA Interval 180 ms MUSE QRSD Interval 154 ms MUSE QT Interval 448 ms MUSE QTC Interval 458 ms MUSE P [place] 60 degrees MUSE R [place] -42 degrees MUSE T Wave [place] 81 degrees MUSE Specimen Anatomical Collection Method [...] Address City/State/ZIP Code Phon e Number [facility] [address] [place] [address] LAB Basic Metabolic Panel (04/30/2019 9:42 AM [...] >=60 04/30/2019 Black/ mL/min/BSA 4:08 PM CDT Slovak Comment: ----ADDITIONAL INFORMATION---- Estimated GFR calculated using [...] Organization Address City/State/ZIP Code Phon e Number [facility] [address] [place] [address] LAB documented in this encounter Visit Diagnoses Diagnosis Pain Knee Right - Primary General Medical Examination Adult Bundle Branch Block Left General Medical Examination Adult Pain Knee Right documented in this encounter Care Teams Side Guider Relationship Specialty Start Date End Date Igor Horn P.A.-C. PCP - General 06/14/18 03/15/22 [address] [place] [address] documented as of this encounter
--- OUTSIDE RECORDS SUMMARY | 2022-07-24 10:07 | XMS_ITS | Encounter Summary ---
:1940 Author Organization [facility] Address [address] [place] [address] Care Team Providers Name Role Phone Igor Horn P.A.-C. Primary Care Provider [phone] Reason for Referral Outpatient (Routine) - Closed Specialty Diagnoses / Procedures Referred By Contact Refer red To Contact Family Medicine Igor Horn P. A.-C. [facility] [address] [place] [address] Referral ID Status Reason Start Date Expiration Date Visits Requ ested Visits Authorized [id number] Closed 08/25/2018 08/25/2019 1 1 MENT MAN Reason for Visit Reason Comments Med Refill States annual exam is not du e until February 2019. Her prescriptions run out in Nov. She will be out of town and does not return until February. Encounter Details Date Type Department Care Team Description 08/25/2018 Office Visit Department of Paige Byrdli pidemia (Primary Dx); Medicine in Igor Pascual P.A. -C. Hypothyroidism Primary; [address] Pain Knee Right; [address] [place] [address] Asthma Intrinsic (HCC); [place] [phone] Screening Examination Diabetes Mellitus; [phone] Rhinitis Allerg ic; (Work) Hypertension Essential Primary [...] Comments Blood Pressure 136/78 08/25/2018 8:48 AM EASEMENT MAN Pulse 83 08/25/2018 8:48 AM EASEMENT MAN Temperature 36.7 ??C (98.1 ??F) 08/25/2018 8:48 AM EASEMENT MAN Respiratory Rate 16 08/25/2018 8:48 AM EASEMENT MAN Oxygen Saturation 96% 08/25/2018 8:48 AM EASEMENT MAN Inhaled Oxygen Concentration - - Weight 101 kg (223 lb 12.3 oz) 08/25/2018 8:48 AM EASEMENT MAN Height - - Body Mass Index 38.91 08/19/2018 2:24 PM EASEMENT MAN documented in this encounter H&P Notes Igor Horn P.A.-C. - 08/25/2018 8:45 AM CST CHIEF COMPLAINT / REASON FOR VISIT Ainsley Cedeño is a 77 y.o. female who presents for evaluation of Med Refill (Statesannual exam is not due until February 2019. Her prescriptions run out in Nov. She will be out of town anddoes not return until February.). HISTORY OF PRESENT ILLNESS Ainsley is a very pleasant 77-year-old female who [...] near future but she is moving to [place] for the winter and will check her [...] N/A 1990 Uterinectomy ??? JOINT REPLACEMENT Left 2014 Knee ??? OTHER CONVERTED SHX (SEE COMMENT) [...] Asthma Intrinsic (HCC) She just saw her sort line in [place] for this I reviewed the note she [...] was 30 min of which 20 was [id number] coordination of care and counseling Igor Horn P.A.-C. MENT MAN documented in this encounter Plan of Treatment Scheduled Referrals Name Type Priority Associated Diagnoses Order S [facility] Medicine Outpatient Referral Routine Expec michelle: office visit 02/22/2019 (clinic) (Approximate), Expires: 08/25/2021 documented as of this encounter Results S-TSH (Thyroid-Stimulating Hormone - Sensitive) (02/09/2019 8:32 AM CDT) athologist Signature TSH, Sensitive 2.5 0.3 - 4.2 02/09/2019 [facility] mIU/L 1:57 PM CDT [facility] Comment: Biotin has been identified by [...] City/State/ZIP Code Phon e Number [facility] [address] [place] [address] LAB (ABNORMAL) Lipid Panel (02/09/2019 8:32 AM CDT) athologist Signature Cholesterol, 166 mg/dL 02/09/2019 [facility] Total 1:57 PM CDT [facility] Comment: ----REFERENCE VALUE---- Desirable: < 200 Borderline high: 200 - 239 High: > or = 240 Triglycerides 147 mg/dL 02/09/2019 1:57 PM CDT [facility] [place] [facility] Comment: ----REFERENCE VALUE---- Normal: <150 Borderline high: 150-199 High: 200-499 Very high: > or =500 Cholesterol, HDL, S 45 (L) >=50 mg/dL 02/09/2019 1:[address] [facility] [place] [facility] Calculated LDL 92 mg/dL 02/09/2019 1:57 PM CDT [facility] [place] [facility] Comment: ----REFERENCE VALUE---- Desirable: <100 Above Desirable: 100-129 Borderline high: 130-159 High: 160-189 Very high: > or =190 Cholesterol, Non-HDL, 121 mg/dL 02/09/2019 1:[address] [facility] [place] [facility] [place] Comment: ----REFERENCE VALUE---- Desirable: <130 Above Desirable: 130-159 Borderline high: 160-189 High: 190-219 Very high: > or =220 Specimen Anatomical Collection Method Collection Time Receive d Time (Source) Location / / Volume Laterality Blood (Blood, 02/09/2019 8:32 AM 02/10/20 1:12 Venous) CDT PM CDT Igor Honr P.A.-C. LAB BLOOD ADD-ON Performing Organization Address City/State/ZIP Code Phon e Number [facility] [address] [place] [address] LAB Comprehensive Metabolic Panel (02/09/2019 8:32 AM CDT) athologist Signature Potassium, S 4.3 3.6 - 5.2 02/09/2019 [facility] mmol/L 1:57 PM [facility] Sodium, S 142 135 - 145 02/09/2019 [facility] mmol/L 1:57 PM [facility] Chloride, S 103 98 - 107 02/09/2019 [facility] mmol/L 1:57 PM [facility] Bicarbonate, S 28 22 - 29 02/09/2019 [facility] mmol/L 1:57 PM [facility] Anion Gap 11 7 - 15 02/09/2019 [facility] 1:57 PM [facility] BUN (Blood Urea 16 6 - 21 02/09/2019 [facility] Nitrogen), S mg/dL 1:57 PM [facility] Creatinine 0.76 0.59 - 02/09/2019 [facility] 1.04 mg/dL 1:57 PM [facility] eGFR-Non 76 >=60 02/09/2019 [facility] Black/ mL/min/BSA 1:57 PM [facility] [place] [facility] Comment: ----ADDITIONAL INFORMATION---- Estimated GFR calculated using the 2009 CKD_EPI creatinine equation. eGFR-Black/ 88 >=60 mL/min/BSA 2018 1:57 PM [facility] [place] [facility] Comment: ----ADDITIONAL INFORMATION---- Estimated GFR calculated using the 2009 CKD_EPI creatinine equation. Calcium, Total, S 9.8 8.8 - 10.2 02/09/2019 1:57 PM [facility] mg/dL [facility] Glucose, S 117 70 - 140 mg/dL 02/09/2019 3:19 PM [facility] Protein, Total, S 7.0 6.3 - 7.9 g/dL 02/09/2019 1:57 P M [facility] Albumin, S 4.1 3.5 - 5.0 g/dL 02/09/2019 1:57 PM [facility] [place] [facility] Aspartate Aminotransferase 14 8 - 43 U/L 02/09/2019 1 :57 PM [facility] Alkaline Phosphatase, S 81 35 - 104 U/L 02/09/2019 2: 12 PM [facility] Alanine Aminotransferase 19 7 - 45 U/L 02/09/2019 1:5 7 PM [facility] Bilirubin, Total, S 0.3 <=1.2 mg/dL 02/09/2019 1:57 PM [facility] Specimen Anatomical Collection Method Collection Time Receive d Time (Source) Location / / Volume Laterality Blood (Blood, 02/09/2019 8:32 AM 02/10/20 1:12 Venous) CDT PM CDT Igor Horn P.A.-C. LAB BLOOD ADD-ON Performing Organization Address City/State/ZIP Code Phon e Number [facility] [address] [place] [address] LAB documented in this encounter Visit Diagnoses Diagnosis Hyperlipidemia - Primary Hypothyroidism Primary Pain Knee Right Asthma Intrinsic (HCC) Screening Examination Diabetes Mellitus Rhinitis Allergic Hypertension Essential Primary documented in this encounter Care Teams Program Facilitator Relationship Specialty Start Date End Date Igor Horn P.A.-C. PCP - General 06/14/18 03/15/22 [address] [place] [address] documented as of this encounter
--- OUTSIDE RECORDS SUMMARY | 2022-07-24 10:07 | XMS_ITS | Encounter Summary ---
:1940 Author Organization [facility] Address [address] [place] [address] Care Team Providers Name Role Phone Igor Horn P.A.-C. 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 [address] [phone] Referral ID Status Reason Start Date Expiration Date Visits V isits Requested Authorized [id number] Closed Specialty 03/23/2019 03/22/2020 1 1 Services Required Reason for Visit Reason Comments Results Echo results completed on 09/24. Outpatient (Routine) - Closed Specialty Diagnoses / Procedures Referred By Contact Refer red To Contact Family Medicine Igor Horn P. A.-C. [address] [phone] Referral ID Status Reason Start Date Expiration Date Visits Requ ested Visits Authorized [id number] Closed 02/12/2019 02/12/2020 1 1 Encounter Details Date Type Department Care Team Description 03/23/2019 Office Visit Department of Igor Byrd Pa in Knee Right (Primary Dx); Medicine in [place], P.A.-C. Regurgitation Mitral; [address] Screening Mammogram Breast Cancer; [address] [place], [place] Malignant Neoplasm Of Forear m Squamous Cell Carcinoma Right [place] [address] [phone] Social History Tobacco Use Types Packs/Day Years [...] have completed or the highest Roland, MEd, INFUSION NURSE, MARIE) degree you have received? 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 Total time spent with her today was 25 minutes of which 20 was dihj-ej-fwur coordination of care and counseling Igor Horn [...] TOMOSYNTHESIS Current study was evaluated with a [employer] ter Aided Detection (CAD) system. INDICATION: ??Screening [...] Cancer documented in this encounter Care Teams Bank Clerk Relationship Specialty Start Date End Date Igor Horn P.A.-C. PCP - General 06/14/18 03/15/22 [address] [place] [address] documented as of this encounter
--- OUTSIDE RECORDS SUMMARY | 2022-07-24 10:07 | XMS_ITS | Encounter Summary ---
:1940 Author Organization [facility] Address [address] [place] [address] Care Team Providers Name Role Phone Igor Horn P.A.-C. Primary Care Provider Encounter Details Date Type Department Care Team Description 12/25/2018 Clinical Communication Department of Igor Byrd, [facility], [facility], in [address] [address] [place], [place] [phone] [address] (Work) [phone] Social History Tobacco Use Types Packs/Day Years [...] More than 4 times per year 03/16/2022 muslim services? Do you belong to any clubs or Yes 03/16/2022 organizations such as pentecostal groups, unions, fraternal or athletic groups, or school groups? How often do you attend meetings of the More than 4 times [facility] year 03/16/2022 clubs or [...] would like to do her mammo is [facility] Current Can Nursing/Provider leave a detailed message:na Did the patient refuse triage through Nurse line? (for symptom based concerns):na Action Needed: Please switch mammo order to [place], pt will check thru the portal, please add [place] number in message Name of Medication (if relevant): na documented in this encounter Plan of Treatment Not on filedocumented as of this encounter Visit Diagnoses Diagnosis Screening Mammogram Breast Cancer - Prim haroldo documented in this encounter Care Teams Motocross Racer Relationship Specialty Start Date End Date Igor Horn P.A.-C. PCP - General 06/14/18 03/15/22 [address] [place] [address] documented as of this encounter
--- OUTSIDE RECORDS SUMMARY | 2022-07-24 10:07 | XMS_ITS | Encounter Summary ---
:1940 Author Organization [facility] Address [address] [place] [address] Care Team Providers Name Role Phone Igor Horn P.A.-C. Primary Care Provider [phone] Reason for Visit Reason Comments Follow-up Follow up related to EKG res ults. Appointment Request (Routine) - Closed Specialty Diagnoses / Procedures Referred By Contact Refer red To Contact Family Medicine Referral ID Status Reason Start Date Expiration Date Visits Requ ested Visits Authorized [id number] Closed 05/04/2019 05/03/2020 1 1 Encounter Details Date Type Department Care Team Description 05/04/2019 Office Visit Department of Igor Byrd [facility] Medicine in [place], Shivam Left (Primary Dx) [address] [address] [phone] Social History Tobacco Use Types Packs/Day Years [...] have completed or the highest Roland, MEd, SPRAY MIXER, MARIE) degree you have received? Sex Assigned [...] Primary documented in this encounter Care Teams Cryptography Teacher Relationship Specialty Start Date End Date Igor Horn P.A.-C. PCP - General 06/14/18 03/15/22 [address] [place] [address] documented as of this encounter
--- OUTSIDE RECORDS SUMMARY | 2022-07-24 10:07 | XMS_ITS | Encounter Summary ---
:1940 Author Organization [facility] Address [address] [place] [address] Care Team Providers Name Role Phone Igor Horn P.A.-C. Primary Care Provider [phone] Encounter Details Date Type Department Care Team Description 02/09/2019 Hospital Encounter Department of Justina Hyperlip idemia; Laboratory Medicine Reyna Costa Hypothyroidism Primary; in [address] Pain Knee Right; [place], [place] Asthma Intrinsic (HCC); [address] [facility] [address] Screening Examination Diabetes Mellitus; [place], [place] [phone] Hypertension Es sential Primary [id number] (Work) [phone] Social History Tobacco Use Types Packs/Day Years [...] TSH, Sensitive 2.5 0.3 - 4.2 02/09/2019 [facility] mIU/L 1:57 PM CDT [facility] LAB Comment: Biotin has been identified by the lopez ruiz as a potential interfering substance. ??Higher concentr ations of biotin may be found in multivitamins, hair/nail supple ments, and workout supplements. ??If the result does not [facility] clinical observations, repeat testing after patient refrains fr om the use of supplements for at least 12 hours. Specimen Anatomical Collection Method Collection Time Receive d Time (Source) Location / / Volume Laterality Blood (Blood, 02/09/2019 8:32 AM 02/10/20 1:12 Venous) CDT PM CDT Igor Horn P.A.-C. LAB BLOOD ADD-ON Performing Organization Address City/State/ZIP Code Phon e Number [facility] [address] [place] [address] LAB (ABNORMAL) Lipid Panel (02/09/2019 8:32 AM CDT) P athologist Signature Cholesterol, 166 mg/dL 02/09/2019 [facility] Total 1:57 PM CDT [facility] LAB Comment: ----REFERENCE VALUE---- Desirable: < 200 Borderline high: 200 - 239 High: > or = 240 Triglycerides 147 mg/dL 02/09/2019 1:57 PM CDT [facility] [employer] [facility] LAB Comment: ----REFERENCE VALUE---- Normal: <150 Borderline high: 150-199 High: 200-499 Very high: > or =500 Cholesterol, HDL, S 45 (L) >=50 mg/dL 02/09/2019 1:57 PM CDT [facility] Calculated LDL 92 mg/dL 02/09/2019 1:57 PM CDT [facility] [place] [facility] Comment: ----REFERENCE VALUE---- Desirable: <100 Above Desirable: 100-129 Borderline high: 130-159 High: 160-189 Very high: > or =190 Cholesterol, Non-HDL, 121 mg/dL 02/09/2019 1:57 PM CDT [facility] [place] B Comment: ----REFERENCE VALUE---- Desirable: <130 Above Desirable: 130-159 Borderline high: 160-189 High: 190-219 Very high: > or =220 Specimen Anatomical Collection Method Collection Time Receive d Time (Source) Location / / Volume Laterality Blood (Blood, 02/09/2019 8:32 AM 02/10/20 19 1:12 Venous) CDT PM CDT Igor Horn P.A.-C. LAB BLOOD ADD-ON Performing Organization Address City/State/ZIP Code Phon e Number [facility] [address] [place] [address] LAB Comprehensive Metabolic Panel (02/09/2019 8:32 AM CDT) athologist Signature Potassium, S 4.3 3.6 - 5.2 02/09/2019 [facility] mmol/L 1:57 PM [facility] Sodium, S 142 135 - 145 02/09/2019 [facility] mmol/L 1:57 PM [facility] Chloride, S 103 98 - 107 02/09/2019 [facility] mmol/L 1:57 PM [facility] Bicarbonate, S 28 22 - 29 02/09/2019 [facility] mmol/L 1:57 PM [facility] Anion Gap 11 7 - 15 02/09/2019 [facility] 1:57 PM [facility] BUN (Blood Urea 16 6 - 21 02/09/2019 [facility] Nitrogen), S mg/dL 1:57 PM [facility] Creatinine 0.76 0.59 - 02/09/2019 [facility] 1.04 mg/dL 1:57 PM [facility] eGFR-Non 76 >=60 02/09/2019 [facility] Black/ mL/min/BSA 1:57 PM [facility] [place] [place] [facility] Comment: ----ADDITIONAL INFORMATION---- Estimated GFR calculated using the 2009 CKD_EPI creatinine equation. eGFR-Black/ 88 >=60 mL/min/BSA 2018 1:57 PM [facility] [place] [facility] Comment: ----ADDITIONAL INFORMATION---- Estimated GFR calculated using the 2009 CKD_EPI creatinine equation. Calcium, Total, S 9.8 8.8 - 10.2 02/09/2019 1:57 PM [facility] mg/dL [facility] [place] [facility] Glucose, S 117 70 - 140 mg/dL 02/09/2019 3:19 PM [facility] [place] [facility] Protein, Total, S 7.0 6.3 - 7.9 g/dL 02/09/2019 1:57 P M [facility] [place] [facility] Albumin, S 4.1 3.5 - 5.0 g/dL 02/09/2019 1:57 PM [facility] [place] [facility] Aspartate Aminotransferase 14 8 - 43 U/L 02/09/2019 1 :57 PM [facility] ([facility] [place] [facility] Alkaline Phosphatase, S 81 35 - 104 U/L 02/09/2019 2: 12 PM [facility] [place] [facility] Alanine Aminotransferase 19 7 - 45 U/L 02/09/2019 1:5 7 PM [facility] ([facility] [place] [facility] Bilirubin, Total, S 0.3 <=1.2 mg/dL 02/09/2019 1:57 PM [facility] [place] [facility] Specimen Anatomical Collection Method Collection Time Receive d Time (Source) Location / / Volume Laterality Blood (Blood, 02/09/2019 8:32 AM 02/10/20 19 1:12 Venous) CDT PM CDT Igor Horn P.A.-C. LAB BLOOD ADD-ON Performing Organization Address City/State/ZIP Code Phon e Number [facility] [address] [place] [address] LAB documented in this encounter Visit Diagnoses Diagnosis Hyperlipidemia Hypothyroidism Primary Pain Knee Right Asthma Intrinsic (HCC) Screening Examination Diabetes Mellitus Hypertension Essential Primary documented in this encounter Care Teams Digital Production Operator Relationship Specialty Start Date End Date Igor Horn P.A.-C. PCP - General 06/14/18 03/15/22 [address] [place] [phone] documented as of this encounter
--- OUTSIDE RECORDS SUMMARY | 2022-07-24 10:07 | XMS_ITS | Encounter Summary ---
:1940 Author Organization [facility] Address [address] [place] [address] Care Team Providers Name Role Phone Igor Horn P.A.-C. Primary Care Provider [phone] Reason for Visit Reason Comments Asthma plan Encounter Details Date Type Department Care Team Description 01/08/2020 Clinical Communication Division of Allergic Valdemar Ma Asthma plan Diseases in [place] [address] [facility] [address] [place] [address] [phone] Social History Tobacco Use Types Packs/Day Years [...] have completed or the highest Roland, MEd, SERVICE DESK DIRECTOR, MARIE) degree you have received? Sex [...] that she is 40 minutes away from [place] so if she is unable to drive [...] since she doesn't have a provider in [place] if she should take her Prednisone if [...] 01/08/2020 2:09 PM CDT She is in [place]. She asks how she should take her meds if she gets COVID-19. documented in this encounter Plan of Treatment Not on filedocumented as of this encounter Visit Diagnoses Not on filedocumented in this encounter Care Teams Boilermaking Supervisor Relationship Specialty Start Date End Date Igor Horn P.A.-C. PCP - General 06/14/18 03/15/[address] [place] [phone] documented as of this encounter
--- OUTSIDE RECORDS SUMMARY | 2022-07-24 10:07 | XMS_ITS | Encounter Summary ---
:1940 Author Organization [facility] Address [address] [place] [address] Care Team Providers Name Role Phone Igor Horn P.A.-C. Primary Care Provider [phone] Reason for Visit Reason Onset Date Comments annual wellness scheduling 01/20/2019 Encounter Details Date Type Department Care Team Description 01/20/2019 Clinical Communication Department of car[place]o [place] Family Medicine, [place] [facility] [place] [facility], in [address] [address] Social History Tobacco Use Types Packs/Day Years [...] on filedocumented in this encounter Care Teams Make Ready Worker Relationship Specialty Start Date End Date Igor Horn P.A.-C. PCP - General 06/14/18 03/15/22 [address] [place] [address] documented as of this encounter
--- OUTSIDE RECORDS SUMMARY | 2022-07-24 10:07 | XMS_ITS | Encounter Summary ---
:1940 Author Organization [facility] Address [address] [place] [address] Care Team Providers Name Role Phone Igor Horn P.A.-C. Primary Care Provider [phone] Encounter Details Date Type Department Care Team Description 04/07/2019 Hospital Encounter Department of Merlyn Horn Mammogram Radiology in Shivam Costa Breast Cancer [place], [place] 225 [facility] [address], [place] [address] [phone] Social History Tobacco Use Types Packs/Day Years [...] the More than 4 times [facility] year 03/16/2022 clubs or organizations [...] completed or the highest Roland, MEd, BOLT MACHINE OPERATOR, MARIE) degree you have received? [...] LOS, Haylee st Bilateral Mammography Imaging [facility] Specimen (Source) Anatomical Collection Method [...] Cancer documented in this encounter Care Teams Manager Of Exhibitions And Collections Relationship Specialty Start Date End Date Igor Horn P.A.-C. PCP - General 06/14/18 03/15/22 [address] [place] [address] documented as of this encounter
--- OUTSIDE RECORDS SUMMARY | 2022-07-24 10:07 | XMS_ITS | Encounter Summary ---
:1940 Author Organization [facility] Address [address] [place] [address] Care Team Providers Name Role Phone Igor Horn P.A.-C. Primary Care Provider [phone] Encounter Details Date Type Department Care Team Description 12/25/2018 Clinical Communication Department of [facility] Fide [place], Internal Medicine in [place], [place] [address] [address] [phone] Social History Tobacco Use Types Packs/Day Years [...] on filedocumented in this encounter Care Teams Tuber Helper Relationship Specialty Start Date End Date Igor Horn P.A.-C. PCP - General 06/14/18 03/15/22 [address] [place] [address] documented as of this encounter
--- OUTSIDE RECORDS SUMMARY | 2022-07-24 10:08 | XMS_ITS | Encounter Summary ---
:1940 Author Organization [facility] Address [address] [place] [address] Care Team Providers Name Role Phone Sherman, Aneta Rodriguez APRN C.N.PAntwan, M.S.N. Primary Care Pr ovider Encounter Details Date Type Department Care Team Description 02/06/2018 Orders Only Department of [facility] Igor Horn, Medicine, [facility] -C. in [facility] [address] [place] [address] [place] [address] [phone] Social History Tobacco Use Types Packs/Day Years [...] on filedocumented in this encounter Care Teams Women'S Basketball Coach Relationship Specialty Start Date End Date Aneta Whitaker APRN, C.N.P., PCP - General 06/13/18 M.S.N. [address] [place] [address] documented as of this encounter
--- OUTSIDE RECORDS SUMMARY | 2022-07-24 10:08 | XMS_ITS | Encounter Summary ---
:1940 Author Organization [facility] Address [address] [place] [address] Care Team Providers Name Role Phone Aneta Whitaker APRN, C.N.P., M.S.N. Primary Care Pr ovider Encounter Details Date Type Department Care Team Description 09/17/2017 Hospital Encounter Department of Sherman, Hypothyr oidism; Laboratory Medicine Aneta Rodriguez APRN, Hyp erlipidemia; in [place], [place] CGuillermo., M.S.N. Hypertension NOS [address] [place] [address] [phone] Social History Tobacco Use Types Packs/Day Years [...] 8:29 AM Hyperlipidemia Resul ts for this MANAGER HEART procedure are i n the results section. THYROID-STIMULATING Routine 09/17/2017 8:29 AM Hypothyroidism Results for this HORMONE-SENSITIVE MANAGER HEART procedure are in (S-TSH) the results section. BASIC METABOLIC Routine 09/17/2017 8:29 AM Hypertension NOS Re sults for this PANEL, S/P MANAGER HEART procedure are i n the results section. documented in this encounter Results BMP (Basic Metabolic Panel) (09/17/2017 8:29 AM MANAGER HEART) P athologist Signature Potassium, S 4.1 3.6 - 5.2 09/17/2017 [facility] mmol/L 11:32 AM [facility] LAB Sodium, S 143 135 - 145 09/17/2017 [facility] mmol/L 11:32 AM [facility] Chloride, S 102 98 - 107 09/17/2017 [facility] mmol/L 11:32 AM [facility] Bicarbonate, S 27 22 - 29 09/17/2017 [facility] mmol/L 11:32 AM [facility] Anion Gap 14 7 - 15 09/17/2017 [facility] 11:32 AM [facility] BUN (Blood Urea 19 6 - 21 09/17/2017 [facility] Nitrogen), S mg/dL 11:32 AM [facility] [place] [facility] Creatinine 0.85 0.59 - 09/17/2017 [facility] 1.04 mg/dL 11:32 AM [facility] [place] [facility] eGFR 68 >=60 09/17/2017 [facility] Non-Black/Afric mL/min/BSA 11:32 AM [facility] marion [place] LAB Comment: ----ADDITIONAL INFORMATION---- Estimated GFR calculated using the 2009 CKD_EPI creatinine equation. eGFR Black/ 78 >=60 mL/min/BSA 09/17/2017 11:3 2 AM [facility] [place] LAB Comment: ----ADDITIONAL INFORMATION---- Estimated GFR calculated using the 2009 CKD_EPI creatinine equation. Calcium, Total, S 10.1 8.9 - 10.1 mg/dL 09/17/2017 11:3 2 AM [facility] [place] [facility] Glucose, S 107 70 - 140 mg/dL 09/17/2017 11:32 AM [facility] [place] [facility] Specimen Anatomical Collection Method Collection Time Receive d Time (Source) Location / / Volume Laterality Blood 09/17/2017 8:29 AM 7 [facility] 10:57 AM [facility] Aneta Whitaker APRN C.N.P., M.S.N. LAB BLOOD ADD-ON Performing Organization Address City/State/ZIP Code Phon e Number [facility] [employer] [place] [address] [place] [address] LAB (ABNORMAL) Lipid Panel (09/17/2017 8:29 AM [facility]) athologist Signature Cholesterol, 176 mg/dL 09/17/2017 [facility] Total 11:32 AM [facility] [place] LAB Comment: ----REFERENCE VALUE---- Desirable: < 200 Borderline high: 200 - 239 High: > or = 240 Triglycerides 186 (H) mg/dL 09/17/2017 11:32 AM [facility] [place] [facility] Comment: ----REFERENCE VALUE---- Normal: <150 Borderline high: 150-199 High: 200-499 Very high: > or =500 Cholesterol, HDL, S 45 (L) >=50 mg/dL 09/17/2017 11:32 AM [facility] Calculated LDL 94 mg/dL 09/17/2017 11:[address] [facility] [place] [facility] Comment: ----REFERENCE VALUE---- Desirable: <100 Above Desirable: 100-129 Borderline high: 130-159 High: 160-189 Very high: > or =190 Cholesterol, Non-HDL, 131 mg/dL 09/17/2017 11:32 A M MANAGER HEART [facility] [place] B Comment: ----REFERENCE VALUE---- Desirable: <130 Above Desirable: 130-159 Borderline high: 160-189 High: 190-219 Very high: > or =220 Specimen Anatomical Collection Method Collection Time Receive d Time (Source) Location / / Volume Laterality Blood 09/17/2017 8:29 AM 7 MANA[facility] HEART 10:57 AM MANA[facility] HEART Aneta Whitaker APRN C.N.P., M.S.N. LAB BLOOD ADD-ON Performing Organization Address City/State/[facility] Code Phon e Number [facility] [address] [place] [address] LAB S-TSH (Thyroid-Stimulating Hormone - Sensitive) (09/17/2017 8:29 AM MANAGER HEART) P athologist Signature TSH, Sensitive 1.8 0.3 - 4.2 09/17/2017 [facility] mIU/L 11:32 AM [facility] LAB Comment: Biotin has been identified by the lopez ruiz as a potential interfering substance. ??Higher concentr ations of biotin may be found in multivitamins, hair/nail supple ments, and workout supplements. ??If the result does not [facility] clinical observations, repeat testing after patient refrains fr om the use of supplements for at least 12 hours. Specimen Anatomical Collection Method Collection Time Receive d Time (Source) Location / / Volume Laterality Blood 09/17/2017 8:29 AM 7 MANAGER HEART 10:57 AM MANAGER HEART Aneta Whitaker APRN C.N.P., M.S.N. LAB BLOOD ADD-ON Performing Organization Address City/State/ZIP Code Phon e Number [facility] [place] [address] [place] [address] LAB documented in this encounter Visit Diagnoses Diagnosis Hypothyroidism Hyperlipidemia Hypertension NOS documented in this encounter Care Teams Learning Manager Relationship Specialty Start Date End Date Aneta Whitaker APRN, C.N.P., PCP - General 06/13/18 M.S.N. [address] [place] [phone] documented as of this encounter
--- OUTSIDE RECORDS SUMMARY | 2022-07-24 10:08 | XMS_ITS | Encounter Summary ---
:1940 Author Organization [facility] Address [address] [place] [address] Care Team Providers Name Role Phone Aneta Whitaker APRN, C.N.PAntwan, M.S.N. Primary Care Pr ovid Encounter Details Date Type Department Care Team Description 07/19/2017 Orders Only Department of [facility] Sherman, Arabella cruz Hypothyroidism; Medicine in [place], MISA Rodriguez C.N.PAntwan, Hype rlipidemia; [place] M.S.N. Hypertension NOS [address] [place] [address] [place], [place] [phone] (Wo rk) Social History Tobacco Use Types [...] BMP (Basic Metabolic Panel) (09/17/2017 8:29 AM [facility]) P athologist Signature Potassium, S 4.1 3.6 - 5.2 09/17/2017 [facility] mmol/L 11:32 AM [facility] LAB Sodium, S 143 135 - 145 09/17/2017 [facility] mmol/L 11:32 AM [facility] Chloride, S 102 98 - 107 09/17/2017 [facility] mmol/L 11:32 AM [facility] LAB Bicarbonate, S 27 22 - 29 09/17/2017 [facility] mmol/L 11:32 AM [facility] Anion Gap 14 7 - 15 09/17/2017 [facility] 11:32 AM [facility] BUN (Blood Urea 19 6 - 21 09/17/2017 [facility] Nitrogen), S mg/dL 11:32 AM [facility] Creatinine 0.85 0.59 - 09/17/2017 [facility] 1.04 mg/dL 11:32 AM [facility] LAB eGFR 68 >=60 09/17/2017 [facility] Non-Black/Afric mL/min/BSA 11:32 AM [facility] [employer]- an [place] LAB Comment: ----ADDITIONAL INFORMATION---- Estimated GFR calculated using the 2009 CKD_EPI creatinine equation. eGFR Black/ 78 >=60 mL/min/BSA 09/17/2017 11:3 2 AM [facility] [place] LAB Comment: ----ADDITIONAL INFORMATION---- Estimated GFR calculated using the 2009 CKD_EPI creatinine equation. Calcium, Total, S 10.1 8.9 - 10.1 mg/dL 09/17/2017 11:3 2 AM [facility] [place] [facility] Glucose, S 107 70 - 140 mg/dL 09/17/2017 11:32 AM [facility] [place] [facility] Specimen Anatomical Collection Method Collection Time Receive d Time (Source) Location / / Volume Laterality Blood 09/17/2017 8:29 AM 7 NEWS ANALYST 10:57 AM [facility] Aneta Whitaker APRN, C.N.P., M.S.N. LAB BLOOD ADD-ON Performing Organization Address City/State/ZIP Code Phon e Number [facility]istics[facility] [address] [place] [address] LAB (ABNORMAL) Lipid Panel (09/17/2017 8:29 AM [facility]) athologist Signature Cholesterol, 176 mg/dL 09/17/2017 [facility] Total 11:32 AM [facility] [place] LAB Comment: ----REFERENCE VALUE---- Desirable: < 200 Borderline high: 200 - 239 High: > or = 240 Triglycerides 186 (H) mg/dL 09/17/2017 11:32 AM [facility] [place] LAB Comment: ----REFERENCE VALUE---- Normal: <150 Borderline high: 150-199 High: 200-499 Very high: > or =500 Cholesterol, HDL, S 45 (L) >=50 mg/dL 09/17/2017 11:[address] [facility] [place] LAB Calculated LDL 94 mg/dL 09/17/2017 11:32 AM [facility] [place] [facility] Comment: ----REFERENCE VALUE---- Desirable: <100 Above Desirable: 100-129 Borderline high: 130-159 High: 160-189 Very high: > or =190 Cholesterol, Non-HDL, 131 mg/dL 09/17/2017 11:32 A M NEWS ANALYST [facility] LASHA Coronel Comment: ----REFERENCE VALUE---- Desirable: <130 Above Desirable: 130-159 Borderline high: 160-189 High: 190-219 Very high: > or =220 Specimen Anatomical Collection Method Collection Time Receive d Time (Source) Location / / Volume Laterality Blood 09/17/2017 8:29 AM 7 NEWS ANALYST 10:57 AM NEWS ANALYST Aneta Whitaker APRN C.N.P., M.S.N. LAB BLOOD ADD-ON Performing Organization Address City/[facility] Phon e Number [facility] [address] [place] [address] LAB S-TSH (Thyroid-Stimulating Hormone - Sensitive) (09/17/2017 8:29 AM NEWS ANALYST) athologist Signature TSH, Sensitive 1.8 0.3 - 4.2 09/17/2017 [facility] mIU/L 11:32 AM NEWS ANALYST [facility] LAB Comment: Biotin has been identified by the lopez ruiz as a potential interfering substance. ??Higher concentr ations of biotin may be found in multivitamins, hair/nail supple ments, and workout supplements. ??If the result does not [facility] clinical observations, repeat testing after patient refrains fr om the use of supplements for at least 12 hours. Specimen Anatomical Collection Method Collection Time Receive d Time (Source) Location / / Volume Laterality Blood 09/17/2017 8:29 AM 7 NEWS ANALYST 10:57 AM NEWS ANALYST Aneta Whitaker APRN C.N.P., M.S.N. LAB BLOOD ADD-ON Performing Organization Address City/[facility]/ZIP Code Phon e Number [facility] [address] [place] [address] LAB documented in this encounter Visit Diagnoses Diagnosis Hypothyroidism Hyperlipidemia Hypertension NOS documented in this encounter Care Teams Sports Doctor Relationship Specialty Start Date End Date Aneta Whitaker APRN C.N.P., PCP - General 06/13/18 M.S.N. [address] [place] [address] documented as of this encounter
--- OUTSIDE RECORDS SUMMARY | 2022-07-24 10:08 | XMS_ITS | Encounter Summary ---
:1940 Author Organization [facility] Address [address] [place] [address] Care Team Providers Name Role Phone Aneta Whitaker APRN, C.N.P., M.S.N. Primary Care Pr ovider Reason for Visit Reason Comments Med Refill Encounter Details Date Type Department Care Team Description 11/05/2017 Refill Department of Family Medicine Aneta Whitaker, Med Refill in [place], [place] Renée BYNUM, M.S.N. [address] [facility] [address] [address] [place] [address] [place] [address] [phone] (Wo rk) Social History Tobacco Use Types [...] on filedocumented in this encounter Care Teams Banquet Chef Relationship Specialty Start Date End Date Aneta Whitaker APRN, C.N.P., PCP - General 06/13/18 M.S.N. [address] [place] [address] documented as of this encounter
--- OUTSIDE RECORDS SUMMARY | 2022-07-24 10:08 | XMS_ITS | Encounter Summary ---
:1940 Author Organization [facility] Address [address] [place] [address] Care Team Providers Name Role Phone Igor oHrn P.A.-C. Primary Care Provider [phone] Reason for Visit Reason Comments Asthma Encounter Details Date Type Department Care Team Description 08/19/2018 Clinical Support Division of Allergic Valdemar Ma M.D. [address] [place] [address] [phone] Asthma (HCC) Diseases in [place], Tanja Colmenares, R.N. [address] [place] [phone] [place] [address] [place], [place] [phone] Social History Tobacco Use Types Packs/Day [...] 03/16/2022 organizations such as adventist groups, unions, fraCobase or athletic groups, or school groups? How [...] 1:35 PM Asthma (HCC) Results for this PROCESS TRAINER procedure are i n the results section . documented in this encounter Results Spirometry (08/19/2018 1:35 PM PROCESS TRAINER) P athologist Signature VC MAX POST 2.29 1.87 - 08/27/2018 [facility] 3.42 L 9:18 AM PROCESS TRAINER SUITE PostFEV1 1.57 1.44 - 08/27/2018 [facility] 2.57 L 9:18 AM PROCESS TRAINER SUITE FEV1/FVC POST 68.89 63.43 - 08/27/2018 [facility] 89.68 % 9:18 AM PROCESS TRAINER SUITE PostFVC 2.28 1.87 - 08/27/2018 [facility] 3.42 L 9:18 AM PROCESS TRAINER SUITE FET POST 7.68 sec 08/27/2018 [facility] 9:18 AM PROCESS TRAINER SUITE PEF POST 4.51 2.65 - 08/27/2018 [facility] 7.95 L/s 9:18 AM PROCESS TRAINER SUITE FEF 25-75 % 0.96 0.72 - 08/27/2018 [facility] 3.04 L/s 9:18 AM PROCESS TRAINER SUITE VC MAX PRE 2.23 1.87 - 08/27/2018 [facility] 3.42 L 9:18 AM PROCESS TRAINER SUITE FEV1 1.45 1.44 - 08/27/2018 [facility] 2.57 L 9:18 AM PROCESS TRAINER SUITE FEV1/FVC 64.81 63.43 - 08/27/2018 [facility] 89.68 % 9:18 AM PROCESS TRAINER SUITE FVC 2.23 1.87 - 08/27/2018 [facility] 3.42 L 9:18 AM PROCESS TRAINER SUITE FET PRE 7.19 sec 08/27/2018 [facility] 9:18 AM PROCESS TRAINER SUITE PEF PRE 4.20 2.65 - 08/27/2018 [facility] 7.95 L/s 9:18 AM PROCESS TRAINER SUITE TDY44-86% 0.84 0.72 - 08/27/2018 [facility] 3.04 L/s 9:18 AM PROCESS TRAINER SUITE SUBSTANCE POST NaN 08/27/2018 [facility] 9:18 AM PROCESS TRAINER SUITE DOSE POST NaN 08/27/2018 [facility] 9:18 AM PROCESS TRAINER SUITE % PRED VC MAX 2.23 1.87 - 08/27/2018 [facility] 3.42 % 9:18 AM PROCESS TRAINER SUITE FEV1% 1.45 1.44 - 08/27/2018 [facility] 2.57 % 9:18 AM PROCESS TRAINER SUITE % PRED FEV1/FVC 64.81 63.43 - 08/27/2018 [facility] 89.68 % 9:18 AM PROCESS TRAINER SUITE FVC% 2.23 1.87 - 08/27/2018 [facility] 3.42 % 9:18 AM PROCESS TRAINER SUITE % PRED PEF 4.20 2.65 - 08/27/2018 [facility] 7.95 % 9:18 AM PROCESS TRAINER SUITE % PRED FEF 0.84 0.72 - 08/27/2018 [facility] 25-75% 3.04 % 9:18 AM PROCESS TRAINER SUITE PRED VC MAX NaN 1.87 - 08/27/2018 [facility] 3.42 L 9:18 AM PROCESS TRAINER SUITE PRED FEV 1 NaN 1.44 - 08/27/2018 [facility] 2.57 L 9:18 AM PROCESS TRAINER SUITE PRED FEV1/FVC NaN 63.43 - 08/27/2018 [facility] 89.68 % 9:18 AM PROCESS TRAINER SUITE PRED FVC NaN 1.87 - 08/27/2018 [facility] 3.42 L 9:18 AM PROCESS TRAINER SUITE PRED PEF NaN 2.65 - 08/27/2018 [facility] 7.95 L/s 9:18 AM PROCESS TRAINER SUITE PRED FEF 25-75% NaN 0.72 - 08/27/2018 [facility] 3.04 L/s 9:18 AM PROCESS TRAINER SUITE Specimen (Source) Anatomical Collection Method Collection Time Re ceived Time Location / / Volume Laterality 08/19/2018 1:35 PM PROCESS TRAINER Valdemar Ma M.D. PFT ORDERABLES Performing Organization Address City/State/ZIP Code Phon e Number [facility] SU[address] [facility] [address] NA documented in this encounter Visit Diagnoses Diagnosis Asthma (HCC) documented in this encounter Care Teams Visual Merchandising Manager Relationship Specialty Start Date End Date Igor Horn P.A.-C. PCP - General 06/14/18 03/15/22 [address] [place] [phone] documented as of this encounter
--- OUTSIDE RECORDS SUMMARY | 2022-07-24 10:08 | XMS_ITS | Encounter Summary ---
:[address] [facility] Address [address] [place] [address] Care Team Providers Name Role Phone Unavailable Primary Care Provider Unavailable Encounter Details Date Type Department Care Team Description 10/16/2016 Hospital Encounter HX [facility] Whitaker, Cecily Rodriguez APRN, C.N.P., M. S.N. 200 [place], [place] [phone] (Wo rk) Social History [...] Miscellaneous Notes Miscellaneous - Delbert Whitaker APRN, RECREATIONAL THERAPY TECHNICIAN - 10/19/2016 8:53 AM PILE HEADER Normal Results Letter October 19, 2016 ELISE AGUAYO [address] [place] [id number] Dear ELISE AGUAYO, I am pleased to [...] 09/13/2016 None Seen - Sincerely, DELBERT WHITAKER [address] [place] [id number] Electronic Signature Electronically Signed By: DELBERT WHITAKER CNP On: October 19, 2016 This document has images extracted. Source: [facility] POWERCHART Document Id: [id number] documented in this encounter Plan of Treatment Not on filedocumented as of this encounter Procedures Procedure Name Priority Date/Time Associated Diagnosis Comme nts URINALYSIS, Routine 10/16/2016 4:17 PM Results f or this MIDSTREAM, WITH PILE HEADER procedure ar e in CULTURE IF the results INDICATED section. documented in this encounter Results (ABNORMAL) Urinalysis, Midstream, with culture if indicated (10/16/2016 4:17 PM PILE HEADER) [facility] Method Time Signature HXUR WBC. Occ-3 None Seen HPF POWERCHART HXUR RBC. Occ-2 None Seen HPF POWERCHART Squamous Occ-3 (A) None Seen HPF POWERCHART Epithelial HXUr Color Yellow Colorless POWERCHART Clarity Clear Clear POWERCHART Glucose Negative Negative MGDL POWERCHART HXBILIRUBIN Negative Negative POWERCHART Ketones, QL(U) Negative Negative MGDL POWERCHART Specific 1.015 POWERCHART Left Hand, POCT, U Comment: Reference Range Specific Left Hand: 1.000-1.035 HXBLOOD Trace (A) Negative POWERCHART pH, [...] Laterality Urine, First 10/16/2016 4:17 PM Voided PILE HEADER Delbert Whitaker APRN, C.N.P., M.S.N. LAB URINE ORDERABLES Performing Organization Address City/State/ZIP Code Phon e Number POWERCHART documented in this encounter Visit Diagnoses Not on filedocumented in this encounter
--- OUTSIDE RECORDS SUMMARY | 2022-07-24 10:08 | XMS_ITS | Encounter Summary ---
:1940 Author Organization [facility] Address [address] [place] [address] Care Team Providers Name Role Phone Sherman, Aneta Rodriguez APRN C.N.PAntwan, M.S.N. 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 [address] [place] [address] documented as of this encounter
--- OUTSIDE RECORDS SUMMARY | 2022-07-24 10:08 | XMS_ITS | Encounter Summary ---
:[address] [facility] Address [address] [place] [address] Care Team Providers Name Role Phone Sherman, Victor Hugo Marquis APRNNAvtar, M.S.N. Primary Care Pr ovider Reason for Referral Outpatient (Routine) - Closed Specialty Diagnoses / Procedures Referred By Contact Refer red To Contact Allergy and Immunology Diagnoses Asthma (HCC) Valdemar Ma, [facility] [address] [place] [address] Referral ID Status Reason Start Date Expiration Date Visits Requ ested Visits Authorized [id number] Closed 01/24/2018 07/23/2018 1 1 Encounter Details Date Type Department Care Team Description 01/24/2018 Orders Only Division of Allergic Valdemar Ma, Asthma (HCC) Diseases in [place] [address] [facility] 200 [place] [phone] (Wo rk) Social History Tobacco Use Types [...] this encounter Results Spirometry (08/19/2018 1:35 PM ENGRAVER PANTOGRAPH) P athologist Signature VC MAX POST 2.29 1.87 - 08/27/2018 [facility] 3.42 L 9:18 AM ENGRAVER PANTOGRAPH SUITE PostFEV1 1.57 1.44 - 08/27/2018 [facility] 2.57 L 9:18 AM ENGRAVER PANTOGRAPH SUITE FEV1/FVC POST 68.89 63.43 - 08/27/2018 [facility] 89.68 % 9:18 AM ENGRAVER PANTOGRAPH SUITE PostFVC 2.28 1.87 - 08/27/2018 [facility] 3.42 L 9:18 AM ENGRAVER PANTOGRAPH SUITE FET POST 7.68 sec 08/27/2018 [facility] 9:18 AM ENGRAVER PANTOGRAPH SUITE PEF POST 4.51 2.65 - 08/27/2018 [facility] 7.95 L/s 9:18 AM ENGRAVER PANTOGRAPH SUITE FEF 25-75 % 0.96 0.72 - 08/27/2018 [facility] 3.04 L/s 9:18 AM ENGRAVER PANTOGRAPH SUITE VC MAX PRE 2.23 1.87 - 08/27/2018 [facility] 3.42 L 9:18 AM ENGRAVER PANTOGRAPH SUITE FEV1 1.45 1.44 - 08/27/2018 [facility] 2.57 L 9:18 AM ENGRAVER PANTOGRAPH SUITE FEV1/FVC 64.81 63.43 - 08/27/2018 [facility] 89.68 % 9:18 AM ENGRAVER PANTOGRAPH SUITE FVC 2.23 1.87 - 08/27/2018 [facility] 3.42 L 9:18 AM ENGRAVER PANTOGRAPH SUITE FET PRE 7.19 sec 08/27/2018 [facility] 9:18 AM ENGRAVER PANTOGRAPH SUITE PEF PRE 4.20 2.65 - 08/27/2018 [facility] 7.95 L/s 9:18 AM ENGRAVER PANTOGRAPH SUITE CIS09-71% 0.84 0.72 - 08/27/2018 [facility] 3.04 L/s 9:18 AM ENGRAVER PANTOGRAPH SUITE SUBSTANCE POST NaN 08/27/2018 [facility] 9:18 AM ENGRAVER PANTOGRAPH SUITE DOSE POST NaN 08/27/2018 [facility] 9:18 AM ENGRAVER PANTOGRAPH SUITE % PRED VC MAX 2.23 1.87 - 08/27/2018 [facility] 3.42 % 9:18 AM ENGRAVER PANTOGRAPH SUITE FEV1% 1.45 1.44 - 08/27/2018 [facility] 2.57 % 9:18 AM ENGRAVER PANTOGRAPH SUITE % PRED FEV1/FVC 64.81 63.43 - 08/27/2018 [facility] 89.68 % 9:18 AM ENGRAVER PANTOGRAPH SUITE FVC% 2.23 1.87 - 08/27/2018 [facility] 3.42 % 9:18 AM ENGRAVER PANTOGRAPH SUITE % PRED PEF 4.20 2.65 - 08/27/2018 [facility] 7.95 % 9:18 AM ENGRAVER PANTOGRAPH SUITE % PRED FEF 0.84 0.72 - 08/27/2018 [facility] 25-75% 3.04 % 9:18 AM ENGRAVER PANTOGRAPH SUITE PRED VC MAX NaN 1.87 - 08/27/2018 [facility] 3.42 L 9:18 AM ENGRAVER PANTOGRAPH SUITE PRED FEV 1 NaN 1.44 - 08/27/2018 [facility] 2.57 L 9:18 AM ENGRAVER PANTOGRAPH SUITE PRED FEV1/FVC NaN 63.43 - 08/27/2018 [facility] 89.68 % 9:18 AM ENGRAVER PANTOGRAPH SUITE PRED FVC NaN 1.87 - 08/27/2018 [facility] 3.42 L 9:18 AM ENGRAVER PANTOGRAPH SUITE PRED PEF NaN 2.65 - 08/27/2018 [facility] 7.95 L/s 9:18 AM ENGRAVER PANTOGRAPH SUITE PRED FEF 25-75% NaN 0.72 - 08/27/2018 [facility] 3.04 L/s 9:18 AM ENGRAVER PANTOGRAPH SUITE Specimen (Source) Anatomical Collection Method Collection Time Re ceived Time Location / / Volume Laterality 08/19/2018 1:35 PM ENGRAVER PANTOGRAPH Valdemar Ma M.D. PFT ORDERABLES Performing Organization Address City/State/ZIP Code Phon e Number [facility] [address] [facility] [address] NA documented in this encounter Visit Diagnoses Diagnosis Asthma (HCC) documented in this encounter Care Teams Navigation Teacher Relationship Specialty Start Date End Date Aneta Whitaker APRN, C.N.P., PCP - General 06/13/18 M.S.N. [address] [place] [phone] documented as of this encounter
--- OUTSIDE RECORDS SUMMARY | 2022-07-24 10:08 | XMS_ITS | Encounter Summary ---
:1940 Author Organization [facility] Address [address] [place] [address] Care Team Providers Name Role Phone Unavailable Primary Care Provider Unavailable Encounter Details Date Type Department Care Team Description 02/05/2017 Hospital Encounter HX [facility] FAMILYPRA Delbert Whitaker APRN, C.N.P., M.S.N. [address] [place] [address] (Wo rk) Social History Tobacco Use Types [...] or relatives? How often do you attend jainism or More than 4 times per year 03/16/2022 mormon services? Do you belong to any clubs or Yes 03/16/2022 organizations such as jainism groups, unions, fraternal or athletic groups, or [...] Body Mass Index 37.52 09/21/2016 10:28 AM REORDERING CLERK documented in this encounter Medications at Time [...] this encounter Progress Notes Delbert Whitaker APRN, RETURN AGENT - 02/05/2017 9:57 AM CDT [id number] CHIEF COMPLAINT/REASON FOR VISIT Bilateral ingrown toenails. [...] away from the nail, to see a creasing machine operator and/or get a pedicure to see if they can help with the nail pulling it further. Try this for 2 weeks. See the only one, either the creasing machine operator or the registered nurse surgical services, and then if that is unsuccessful to come back and see me and I can do a partial toenail removal. She verbalized good understanding and agreed to plan. 2. Basal cell, skin. 3. Squamous cell, history of, right forearm. PLAN: Dermatology referral done for [facility]. This will be ordered today and processed. Did advise patient that [facility] would call her for appointment times but to follow up with me if she had any future healthcare problem or concern. If she did not hear from [facility] to also let me know within the next few days and I would help her with the referral process. Antolin Diaz -C./tello Electronically Signed By: DELBERT WHITAKER CNP On: 02/16/2017 02:39 PM Source: [facility] MHSDOLBEYNONRADSYS Document Id: [id number] documented in this encounter Miscellaneous Notes Miscellaneous - Joshua Rubin, LAntwanP.N. - 02/05/2017 10:07 AM CDT PHQ-9 PHQ-9 [...] RUBIN LPN - 02/05/2017 10:07 CDT Source: [facility] POWERCHART Document Id: [id number] CDT!13 Miscellaneous - Joshua Rubin L.PBenedict - 02/05/2017 10:05 AM CDT Adult Transit Vehicle Inspector Intake/History Adult Transit Vehicle Inspector Intake/History Entered On: 02/05/2017 10:07 CDT Performed [...] Preferred Communication Mode : Verbal Languages : Moroccan Is Patient Female and 13-50 no hysterectomy [...] RUBIN LPN - 02/05/2017 10:05 CDT Source: [facility] Blockchain Document Id: [id number] CDT!39 documented in this encounter Plan of Treatment Not on filedocumented as of this encounter Visit Diagnoses Not on filedocumented in this encounter
--- OUTSIDE RECORDS SUMMARY | 2022-07-24 10:08 | XMS_ITS | Encounter Summary ---
:1940 Author Organization [facility] Address [address] [place] [address] Care Team Providers Name Role Phone Unavailable Primary Care Provider Unavailable Encounter Details Date Type Department Care Team Description 10/16/2016 Hospital Encounter HX [facility] FAMILYPRA Delbert Whitaker APRN, C.N.P., M.S.N. [address] [place] [address] (Wo rk) Social History Tobacco Use Types [...] or relatives? How often do you attend anabaptist or More than 4 times per year 03/16/2022 orthodoxy services? Do you belong to any clubs or Yes 03/16/2022 organizations such as anabaptist groups, unions, fraternal or athletic groups, or [...] Comments Blood Pressure 138/68 10/16/2016 2:24 PM CLIENT SERVICES ASSISTANT Pulse 68 10/16/2016 2:24 PM CLIENT SERVICES ASSISTANT Temperature - - Respiratory Rate 16 10/16/2016 2:24 PM CLIENT SERVICES ASSISTANT Oxygen Saturation - - Inhaled Oxygen Concentration - - Weight 96.9 kg (213 lb 10 oz) 10/16/2016 2:24 PM CLIENT SERVICES ASSISTANT Height - - Body Mass Index 37.52 09/21/2016 10:28 AM CLIENT SERVICES ASSISTANT documented in this encounter Medications at Time [...] as of this encounter Progress Notes Delbert Whitaker, MISA, TELEVISION DIRECTOR - 10/16/2016 2:01 PM CST [id number] CHIEF COMPLAINT/REASON FOR VISIT Right ingrown toenail [...] WHITAKER CNP On: 10/29/2016 05:17 PM Source: [facility] MHSDOLBEVIVIENNE Document Id: [id number] NT SERVICES ASSISTANT documented in this encounter Miscellaneous Notes Miscellaneous - Joshua Rubin L.P.N. - 10/16/2016 2:24 PM CST Adult Quality Control Analyst Intake/History Adult Quality Control Analyst Intake/History Entered On: 10/16/2016 14:27 CLIENT SERVICES ASSISTANT Performed On: 10/16/2016 14:24 CLIENT SERVICES ASSISTANT by JOSHUA RUBIN LPN Intake Chief Complaint [...] kg JOSHUA RUBIN LPN - 10/16/2016 14:24 CLIENT SERVICES ASSISTANT General Info Information Given By : Patient Preferred Communication Mode : Verbal Languages : Slovenian Is Patient Female and 13-50 no hysterectomy : No JOSHUA RUBIN LPN - 10/16/2016 14:24 CLIENT SERVICES ASSISTANT Subjective Pain Symptoms : No (Comment: states yes when she bumps it. [JOSHUA RUBIN LPN - 10/16/2016 14:24 CLIENT SERVICES ASSISTANT] ) JOSHUA RUBIN LPN - 10/16/2016 14:24 CLIENT SERVICES ASSISTANT Dependent Habits Exposure to Tobacco Smoke : Other: Never Smoked Smoking Status : Never smoker Tobacco 2A : No Tobacco Use/Currently Using : No Tobacco Use/Last 30 Days : No Tobacco Use/Last 12 months : No Alcohol Use : No JOSHUA RUBIN LPN - 10/16/2016 14:24 CLIENT SERVICES ASSISTANT Caffeine Use Grid Caffeine Use : Current Type : Soft drinks Frequency : Daily Amount : 1 can diet soda Last Use : 10/16/2016 JOSHUA RUBIN LPN - 10/16/2016 14:24 CLIENT SERVICES ASSISTANT Recreational Drug Use Grid Drug Use : None JOSHUA RUBIN LPN - 10/16/2016 14:24 CLIENT SERVICES ASSISTANT Source: [facility] [employer] Document Id: [id number] CLIENT SERVICES ASSISTANT!39 NT SERVICES ASSISTANT documented in this encounter Plan of Treatment Not on filedocumented as of this encounter Visit Diagnoses Not on filedocumented in this encounter
--- OUTSIDE RECORDS SUMMARY | 2022-07-24 10:08 | XMS_ITS | Encounter Summary ---
:1940 Author Organization [facility] Address [address] [place] [address] Care Team Providers Name Role Phone Aneta Whitaker APRN, C.N.Lizabeth, M.S.N. Primary Care Pr ovider Reason for Visit Reason Comments Med Refill Encounter Details Date Type Department Care Team Description 10/08/2017 Refill Department of Family Medicine Aneta Whitaker Med Refill in [facility] Abelardo phillips APRN.N.P., M.S.N. [address] [place] [address] [place] [address] [phone] (Wo rk) Social History Tobacco Use Types [...] on filedocumented in this encounter Care Teams Seafood Preparer Relationship Specialty Start Date End Date Aneta Whitaker APRN, C.N.P., PCP - General 06/13/18 M.S.N. [address] [place] [address] documented as of this encounter
--- OUTSIDE RECORDS SUMMARY | 2022-07-24 10:08 | XMS_ITS | Encounter Summary ---
:1940 Author Organization [facility] Address [address] [place] [address] Care Team Providers Name Role Phone Unavailable Primary Care Provider Unavailable Encounter Details Date Type Department Care Team Description 09/21/2016 Hospital Encounter HX [facility] FAMILYPRA Delbert Whitaker APRN C.N.P., M.S.N. [address] [place] [address] (Wo rk) Social History Tobacco Use Types [...] More than 4 times per year 03/16/2022 christianity services? Do you belong to any clubs [...] Comments Blood Pressure 126/70 09/21/2016 10:28 AM LAND LEVELER Pulse 74 09/21/2016 10:28 AM LAND LEVELER Temperature - - Respiratory Rate 16 09/21/2016 10:28 AM LAND LEVELER Oxygen Saturation - - Inhaled Oxygen Concentration - - Weight 95.8 kg (211 lb 3.2 oz) 09/21/2016 10:28 AM LAND LEVELER Height 160.7 cm (5' 3.27) 09/21/2016 10:28 AM LAND LEVELER Body Mass Index 37.1 09/21/2016 10:28 AM LAND LEVELER documented in this encounter Medications at Time [...] of this encounter H&P Notes Sherman, Delbert Rodriguez APRN, STORE WAREHOUSE ASSOCIATE - 09/21/2016 10:18 AM CST [id number] CHIEF COMPLAINT/REASON FOR VISIT Annual physical exam. [...] IMPRESSION/REPORT/PLAN 1. Health maintenance. Mammogram ordered for [place]. Patient is going to [place]. Will have this done in February. Encouraged [...] to make sure that it has cleared. Kendall DiazP,Nicho./aos Electronically Signed By: DELBERT WHITAKER CNP On: 10/16/2016 11:05 AM Source: [facility] MHSDOLBEPORFIRIOSYS Document Id: [id number] LEVELER documented in this encounter Miscellaneous Notes Miscellaneous - Joshua Rubin L.PAntwanNAntwan - 09/21/2016 10:28 AM CST Adult Pad Machine Offbearer Intake/History Adult Pad Machine Offbearer Intake/History Entered On: 09/21/2016 10:30 LAND LEVELER Performed On: 09/21/2016 10:28 LAND LEVELER by JOSHUA RUBIN LPN Intake Chief Complaint [...] kg/m2 JOSHUA RUBIN LPN - 09/21/2016 10:28 LAND LEVELER General Info Information Given By : Patient Preferred Communication Mode : Verbal Languages : Barbadian Is Patient Female and 13-50 no hysterectomy : No JOSHUA RUBIN LPN - 09/21/2016 10:28 LAND LEVELER Subjective Pain Symptoms : No JOSHUA RUBIN LPN - 09/21/2016 10:28 LAND LEVELER Dependent Habits Exposure to Tobacco Smoke : Other: Never Smoked Smoking Status : Never smoker Tobacco 2A : No Tobacco Use/Currently Using : No Tobacco Use/Last 30 Days : No Tobacco Use/Last 12 months : No Alcohol Use : Yes JOSHUA RUBIN LPN - 09/21/2016 10:28 LAND LEVELER Caffeine Use Grid Caffeine Use : Current Type : Soft drinks Frequency : Daily Amount : 1 can diet soda Last Use : 12/16/16 JOSHUA RUBIN LPN - 09/21/2016 10:28 LAND LEVELER Recreational Drug Use Grid Drug Use : None JOSHUA RUBIN LPN - 09/21/2016 10:28 LAND LEVELER Source: [facility] Hip[employer] Document Id: [id number] LAND LEVELER!42 LEVELER Miscellaneous - Joshua Rubin L.P.NAntwan - 09/21/2016 10:28 AM CST Health Assessment Health Assessment Entered On: 09/21/2016 10:31 LAND LEVELER Performed On: 09/21/2016 10:28 LAND LEVELER by JOSHUA RUBIN LPN Health Assessment Complete Health Assessment Complete or Modified : Annual Health Assessment Annual Health Assessment Completed : Yes JOSHUA RUBIN LPN - 09/21/2016 10:28 LAND LEVELER Nutrition Nutrition Risk Factors by History Adult : None JOSHUA RUBIN LPN - 09/21/2016 10:28 LAND LEVELER Functional Current Daily Living Assistance : None Mobility Assistance Prior to Admission : Independent JOSHUA RUBIN LPN - 09/21/2016 10:28 LAND LEVELER Dependent Habits Exposure to Tobacco Smoke : Other: Never Smoked Smoking Status : Never smoker Tobacco 2A : No Tobacco Use/Currently Using : No Tobacco Use/Last 30 Days : No Tobacco Use/Last 12 months : No Alcohol Use : Yes JOSHUA RUBIN LPN - 09/21/2016 10:28 LAND LEVELER Caffeine Use Grid Caffeine Use : Current Type : Soft drinks Frequency : Daily Amount : 1 can diet soda Last Use : 09/21/16 JOSHUA RUBIN LPN - 09/21/2016 10:28 LAND LEVELER Recreational Drug Use Grid Drug Use : None JOSHUA RUBIN LPN - 09/21/2016 10:28 LAND LEVELER AUDIT Tool How Often Do You Have A Drink : Monthly or less How Many Drinks in a Day When Drinking : 1 or 2 Six or More Drinks On One Occassion : Never Audit Phase 1 Score : 1 JOSHUA RUBIN LPN - 09/21/2016 10:28 LAND LEVELER Psychosocial Domestic Abuse Concerns : None Marital Status : Number of Children : 1 Behavioral Health Screen/Safety Assmt : No Samaritan Preference : JOSHUA Castellanos LPN - 09/21/2016 10:28 LAND LEVELER Advance Directive Advanced Directives : No Advance Directive Additional Information : No JOSHUA RUBIN LPN - 09/21/2016 10:28 LAND LEVELER Educ Needs Learning Style Preference Adult Grid Patient : Printed materials, Verbal explanation Family : Printed materials, Verbal explanation JOSHUA RUBIN LPN - 09/21/2016 10:28 LAND LEVELER Source: [facility] Hipbone Document Id: [id number] LAND LEVELER!45 LEVELER documented in this encounter Plan of Treatment Not on filedocumented as of this encounter Visit Diagnoses Not on filedocumented in this encounter
--- OUTSIDE RECORDS SUMMARY | 2022-07-24 10:08 | XMS_ITS | Encounter Summary ---
:1940 Author Organization [facility] Address [address] [place] [address] Care Team Providers Name Role Phone Aneta Whitaker APRN, C.N.Lizabeth, M.S.N. Primary Care Pr ovid Encounter Details Date Type Department Care Team Description 10/11/2017 Orders Only Urgent Care [facility] [place], [place] MISA C.N.Lizabeth, M.S.N. [address] [place] [address] [place] [address] [phone] (Wo rk) Social History Tobacco Use Types [...] on filedocumented in this encounter Care Teams Staff Reporter Relationship Specialty Start Date End Date Aneta Whitaker APRN, C.N.P., PCP - General 06/13/18 M.S.N. [address] [place] [address] documented as of this encounter
--- OUTSIDE RECORDS SUMMARY | 2022-07-24 10:08 | XMS_ITS | Encounter Summary ---
:1940 Author Organization [facility] Address [address] [place] [address] Care Team Providers Name Role Phone Aneta Whitaker APRN C.N.PAntwan, M.S.N. Primary Care Pr ovider Encounter Details Date Type Department Care Team Description 10/14/2017 Abstract Department of Family Medicine, Provider, Historical [facility], in [place], [place] [address] [place] [address] Social History Tobacco Use Types Packs/Day [...] More than 4 times per year 03/16/2022 protestant services? Do you belong to any clubs [...] on filedocumented in this encounter Care Teams Classics Teacher Relationship Specialty Start Date End Date Aneta Whitaker APRN, C.N.P., PCP - General 06/13/18 M.S.N. [address] [place] [address] documented as of this encounter
--- OUTSIDE RECORDS SUMMARY | 2022-07-24 10:08 | XMS_ITS | Encounter Summary ---
:1940 Author Organization [facility] Address [address] [place] [address] Care Team Providers Name Role Phone Aneta Whitaker APRN C.N.PAntwan, M.S.N. Primary Care Pr ovid Encounter Details Date Type Department Care Team Description 10/09/2017 Orders Only Urgent Care in [facility], Dysuria (Prim haroldo Dx) [place], [place] Aneta Rodriguez APRN, [address]P., M.S.N. [place], [place] [address] [facility] [address] [place], [place] [phone] (Wo rk) Social History Tobacco Use Types [...] Primary documented in this encounter Care Teams Trim Carpenter Relationship Specialty Start Date End Date Aneta Whitaker APRN, C.N.P., PCP - General 06/13/18 M.S.N. [address] [place] [address] documented as of this encounter
--- OUTSIDE RECORDS SUMMARY | 2022-07-24 10:08 | XMS_ITS | Encounter Summary ---
:1940 Author Organization [facility] Address [address] [place] [address] Care Team Providers Name Role Phone Igor Horn P.A.-C. Primary Care Provider [phone] Encounter Details Date Type Department Care Team Description 07/28/2018 Nurse Only Department of Family Medicine Francesco De Jesus, [place], [place] L.P.N. [address] [facility] [address] [place] [address] [place], [place] [phone] [address] Social History Tobacco Use Types Packs/Day [...] on filedocumented in this encounter Care Teams Vacuum Tank Tender Relationship Specialty Start Date End Date Igor Horn P.A.-C. PCP - General 06/14/18 03/15/22 [address] [place] [phone] documented as of this encounter
--- OUTSIDE RECORDS SUMMARY | 2022-07-24 10:08 | XMS_ITS | Encounter Summary ---
:1940 Author Organization [facility] Address [address] [place] [address] Care Team Providers Name Role Phone Aneta Whitaker APRN CAntwanNAvtar, M.S.N. Primary Care Pr ovider Reason for Referral Outpatient (Routine) - Closed Specialty Diagnoses / Procedures Referred By Contact Refer red To Contact Diagnoses Pain Joint Foot Bilateral Apolonia Horn [facility] P.A.-CAntwan [facility], [facility] [address] [address] [place] [address] Phone: [phone] Referral ID Status Reason Start Date Expiration Visits Visits Date Requested Authorized [id number] Closed Patient 02/06/2018 08/05/2018 1 1 Preference Reason for Visit Reason Onset Date Comments Medicare Annual Wellness Visit 01/16/2018 Encounter Details Date Type Department Care Team Description 01/16/2018 Clinical Communication Department of Lashonda Page Annual Community Internal L, R.N. Wellness Visit Medicine in [address] [place], [place] [address] [address] [place], [place] [phone] [address] (Work) [phone] Social History Tobacco Use Types Packs/Day Years [...] Notes Telephone Encounter - Joshua De Jesus L.P.NAntwan - 02/06/2018 2:42 PM CDT Referral has [...] in a couple days to go to [place] for a week to visit her niece. Telephone Encounter - Lashonda Page R.N. - 01/23/2018 10:49 AM CDT Patient requesting Derm referral for Full skin exam due to history of squamous cell carcinoma (2001). She has been to [place] for this in the past, but is requesting a referral to go again. She also requests to have her Mammos done in [place]. Patient preference. Telephone Encounter - Lashonda Page R.N. - 01/23/2018 9:27 AM CDT Spoke with patient, she was seen in September for a physical with Aneta, but it was not an Annual Wellness visit. She is interested in scheduling that. We also discussed that she will need to establish care with a new PCP as Aneta is no longer going to the [facility]. Patient will think about a new PCP. She is thinking she would prefer a female provider. She is wanting to get scheduled for a Mammogram and a Dermatology appointment in [place] on or after 02/21/18, she is asking [...] Patient documented in this encounter Care Teams Core Mounter Relationship Specialty Start Date End Date Whitaker, Aneta Rodriguez APRN, C.N.P., PCP - General 06/13/18 M.S.N. [address] [place] [address] documented as of this encounter
--- OUTSIDE RECORDS SUMMARY | 2022-07-24 10:08 | XMS_ITS | Encounter Summary ---
:1940 Author Organization [facility] Address [address] [place] [address] Care Team Providers Name Role Phone Aneta Whitaker APRN C.N.PAntwan, M.S.N. Primary Care Pr ovider Encounter Details Date Type Department Care Team Description 09/24/2017 Abstract Department of Family Medicine, Provider, Historical [facility], in [place], [place] [address] [place] [address] Social History Tobacco Use Types Packs/Day [...] on filedocumented in this encounter Care Teams Musical Instrument Maker Or Repairer Relationship Specialty Start Date End Date Aneta Whitaker APRN, C.N.P., PCP - General 06/13/18 M.S.N. [address] [place] [address] documented as of this encounter
--- OUTSIDE RECORDS SUMMARY | 2022-07-24 10:08 | XMS_ITS | Encounter Summary ---
:1940 Author Organization [facility] Address [address] [place] [address] Care Team Providers Name Role Phone Aneta Whitaker APRN, C.N.P., M.S.N. Primary Care Pr ovid Encounter Details Date Type Department Care Team Description 10/10/2017 Hospital Encounter Department of Whitaker, Dysuria Laboratory Medicine in Aneta Rodriguez APRN [place], [place] Renée, M.S.N. [address] [facility] [address] [place] [address] [place] [phone] (Wo rk) Social History Tobacco Use Types [...] AM Result s for this MICROSCOPIC IF GUARD MUSEUM procedure are in INDICATED, U the results section. MICROSCOPIC MANUAL Routine 10/10/2017 9:43 AM Res ults for this GUARD MUSEUM procedure are i n the results section. documented in this encounter Results (ABNORMAL) Microscopic Manual (10/10/2017 9:43 AM [facility]) P athologist Signature White Blood 4-10 /hpf 10/10/2017 [facility] Cells 1:45 PM [facility] [employer] [facility] Comment: ----REFERENCE VALUE---- Males: 0-3 Females: 0-10 Unknown: 0-10 Red Blood Cells Occ-2 0 - 2 /hpf 10/10/2017 1:45 PM [facility] Bacteria Present (A) None Seen 10/10/2017 1:45 PM [facility] [employer] [facility] Specimen Anatomical Collection Method Collection Time Receive d Time (Source) Location / / Volume Laterality Urine 10/10/2017 9:43 AM 8 1:39 [facility] PM [facility] Aneta Whitaker APRN C.N.P., M.S.N. LAB URINE ORDERABLES Performing Organization Address City/State/ZIP Code Phon e Number [facility]- [address], [place] [address] [place] [facility]- 4 [facility] [place], [place] [address] [place] [facility] (ABNORMAL) Urinalysis with Microscopic if Indicated (10/10/2017 9:43 AM [facility]) P athologist Signature Source Midstream 10/10/2017 [facility] 9:51 AM [facility] Clarity Clear Clear 10/10/2017 [facility] 9:51 AM [facility] Color Yellow 10/10/2017 [facility] 9:51 AM [facility] Comment: ----REFERENCE VALUE---- Colorless Yellow [place] Blood Negative Negative 10/10/2017 9:51 AM [facility] Nitrite Negative Negative 10/10/2017 9:51 AM [facility] Leukocyte Esterase Trace (A) Negative 10/10/2017 9:51 A [facility] Protein, U Negative mg/dL 10/10/2017 9:51 AM [facility] Comment: ----REFERENCE VALUE---- Negative Trace Glucose Negative Negative mg/dL 10/10/2017 9:51 AM [facility] Ketones, QL(U) Negative Negative mg/dL 10/10/2017 9:51 AM [facility] Bilirubin Negative Negative 10/10/2017 9:51 AM [facility] pH 7.5 5.0 - 8.0 10/10/2017 9:51 AM [facility] Specific [place] 1.015 1.001 - 1.035 10/10/2017 9:51 AM [facility] Urobilinogen 0.2 0.2 - 1.0 mg/dL 10/10/2017 9:51 AM [facility] Specimen Anatomical Collection Method Collection Time Receive d Time (Source) Location / / Volume Laterality Urine 10/10/2017 9:43 AM 8 9:47 [facility] AM [facility] Aneta Whitaker APRN, C.N.P., M.S.N. LAB URINE ORDERABLES Performing Organization Address City/State/ZIP Code Phon e Number [facility] [address] [place], [place] [address] LAB documented in this encounter Visit Diagnoses Diagnosis Dysuria documented in this encounter Care Teams Dinkey Locomotive Engineer Relationship Specialty Start Date End Date Aneta Whitaker APRN, C.N.P., PCP - General 06/13/18 M.S.N. [address] [place] [address] documented as of this encounter
--- OUTSIDE RECORDS SUMMARY | 2022-07-24 10:08 | XMS_ITS | Encounter Summary ---
:1940 Author Organization [facility] Address [address] [place] [address] Care Team Providers Name Role Phone Igor Horn P.A.-C. Primary Care Provider [phone] Reason for Visit Reason Comments Asthma Outpatient (Routine) - Closed Specialty Diagnoses / Procedures Referred By Contact Refer red To Contact Allergy and Immunology Diagnoses Ast[facility]HCC) [facility] [address] [place] [phone] Referral ID Status Reason Start Date Expiration Date Visits Requ ested Visits Authorized [id number] Closed 01/24/2018 07/23/2018 1 1 Encounter Details Date Type Department Care Team Description 08/19/2018 Comprehensive Visit Division of Allergic Jose Ma Asthma (HCC) Diseases in [place] [address] [facility] 200 [place] [phone] Social History Tobacco Use Types Packs/Day Years [...] 03/16/2022 organizations such as worship groups, unions, fraGulf States Cryotherapy or athletic groups, or school groups? How [...] Comments Blood Pressure 139/69 08/19/2018 2:24 PM APPLICATION SUPPORT INTERN Pulse 77 08/19/2018 2:24 PM APPLICATION SUPPORT INTERN Temperature 36.6 ??C (97.9 ??F) 08/19/2018 2:24 PM APPLICATION SUPPORT INTERN Respiratory Rate - - Oxygen Saturation - - Inhaled Oxygen Concentration - - Weight 102 kg (225 lb 8.5 oz) 08/19/2018 2:24 PM APPLICATION SUPPORT INTERN Height 161.5 cm (5' 3.58) 08/19/2018 2:24 PM APPLICATION SUPPORT INTERN Body Mass Index 39.22 08/19/2018 2:24 PM APPLICATION SUPPORT INTERN documented in this encounter Consult Notes Valdemar Ma M.D. - 08/19/2018 2:30 PM CST SUBJECTIVE REASON FOR CONSULT Asthma. HISTORY OF PRESENT ILLNESS Ms. Graves is a 77-year-old female with longstanding history of asthma. She was last seen in the Division approximately a year ago. When she visited her fgdydzpp-dh-kek last year, she did take the 10 [...] spending a significant amount of time in [place] this winter. She likely will be spending more time at her widsezdl-ew-uxt's, up to a 14-day timeframe, and likely will come back from [place] in the February timeframe. Past medical history, [...] puff twice a day. For visiting her rncrjqmc-wd-mom, especially for the 1st go-round when she [...] during the visit. CT CT Job ID: [id number] ICATION SUPPORT INTERN documented in this encounter Plan of Treatment Not on filedocumented as of this encounter Visit Diagnoses Diagnosis Asthma (HCC) documented in this encounter Care Teams Yarder Operator Relationship Specialty Start Date End Date Igor Horn P.A.-C. PCP - General 06/14/18 03/15/[address] [place] [phone] documented as of this encounter
--- OUTSIDE RECORDS SUMMARY | 2022-07-24 10:08 | XMS_ITS | Encounter Summary ---
:1940 Author Organization [facility] Address [address] [place] [address] Care Team Providers Name Role Phone Aneta Whitaker APRN, C.N.Lizabeth, M.S.N. Primary Care Pr ovider Reason for Visit Reason Comments Annual Exam would like medications renew ed going out of town please refill all Appointment Request (Routine) - Closed Specialty Diagnoses / Procedures Referred By Contact Refer red To Contact Family Medicine Sherman, Aneta Rodriguez APRN, C.N.Lizabeth, M.S.N. [address] [place] [address] Referral ID Status Reason Start Date Expiration Date Visits Requ ested Visits Authorized [id number] Closed 08/22/2017 02/18/2018 1 1 Encounter Details Date Type Department Care Team Description 10/04/2017 Comprehensive Visit Department of Sherman, [facility] Family Medicine in [place] on [place], [place] MISA C.N.PAntwan, (Primary Dx) [address] [facility] [place], [place] [address] [facility] [address] [place], [place] [phone] Social History Tobacco Use Types Packs/Day [...] Comments Blood Pressure 132/70 10/04/2017 10:56 AM MUSIC JOURNALIST Pulse 78 10/04/2017 10:56 AM MUSIC JOURNALIST Temperature 36.4 ??C (97.5 ??F) 10/04/2017 10:56 AM MUSIC JOURNALIST Respiratory Rate 16 10/04/2017 10:56 AM MUSIC JOURNALIST Oxygen Saturation 97% 10/04/2017 10:56 AM MUSIC JOURNALIST Inhaled Oxygen Concentration - - Weight 96.3 kg (212 lb 4.9 oz) 10/04/2017 10:56 AM MUSIC JOURNALIST Height 160.8 cm (5' 3.31) 10/04/2017 10:56 AM MUSIC JOURNALIST Body Mass Index 37.24 10/04/2017 10:56 AM MUSIC JOURNALIST documented in this encounter H&P Notes Sherman, Aneta Rodriguez, VP SALES, SENIOR MEDICAL TRANSCRIPTIONIST - 10/04/2017 11:00 AM CST SUBJECTIVE CHIEF COMPLAINT / REASON FOR VISIT Ainsley Cedeño is a 76 y.o. female who presents annual health maintenance exam. Patient lives half the year in [place] and half the year here in [place]. She is due for tetanus and breast [...] concern or problem. She voiced good understanding. C JOURNALIST documented in this encounter Plan of Treatment Not on filedocumented as of this encounter Visit Diagnoses Diagnosis Health Maintenance Examination Adult - P rimary documented in this encounter Care Teams Bullet Maker Relationship Specialty Start Date End Date Aneta Whitaker APRN, C.N.P., PCP - General 06/13/18 M.S.N. [address] [place] [phone] documented as of this encounter
--- OUTSIDE RECORDS SUMMARY | 2022-07-24 10:08 | XMS_ITS | Encounter Summary ---
:1940 Author Organization [facility] Address [address] [place] [address] Care Team Providers Name Role Phone Aneta Whitaker APRN C.N.PAntwan, M.S.N. Primary Care Pr ovider Encounter Details Date Type Department Care Team Description 09/14/2017 Abstract Department of Family Medicine, Provider, Historical [facility], in [place], [place] [address] [place] [address] [facility] [phone] Social History Tobacco Use Types Packs/Day Years [...] on filedocumented in this encounter Care Teams Coke Wheeler Relationship Specialty Start Date End Date Aneta Whitaker APRN, C.N.P., PCP - General 06/13/18 M.S.N. [address] [place] [address] documented as of this encounter
--- OUTSIDE RECORDS SUMMARY | 2022-07-24 10:08 | XMS_ITS | Encounter Summary ---
:1940 Author Organization [facility] Address [address] [place] [address] Care Team Providers Name Role Phone Aneta Whitaker APRN, C.N.P., M.S.N. Primary Care Pr ovid Reason for Visit Reason Comments Communication Encounter Details Date Type Department Care Team Description 01/17/2018 Clinical Communication Department of Family Cristóbal suarez Communication MedicineUlices APRN, Clinic, in Renée Elena, M.S .N. [place] [address] [facility] [address] [place] [phone] Social History Tobacco Use Types Packs/Day [...] on filedocumented in this encounter Care Teams Waste/Materials Exchange Specialist Relationship Specialty Start Date End Date Aneta Whitaker APRN, C.N.P., PCP - General 06/13/18 M.S.N. [address] [place] [address] documented as of this encounter
--- OUTSIDE RECORDS SUMMARY | 2022-07-24 10:08 | XMS_ITS | Encounter Summary ---
:1940 Author Organization [facility] Address [address] [place] [address] Care Team Providers Name Role Phone Aneta Whitaker APRN C.N.PAntwan, M.S.N. Primary Care Pr ovider Reason for Visit Reason Comments Medicare Annual Wellness Visit Subsequent Appointment Request (Routine) - Closed Specialty Diagnoses / Procedures Referred By Contact Refer red To Contact Family Medicine Referral ID Status Reason Start Date Expiration Date Visits Requ ested Visits Authorized [id number] Closed 01/23/2018 07/22/2018 1 1 Encounter Details Date Type Department Care Team Description 02/06/2018 Nurse Only Department of Family Anna Marie Babcock Med [facility] Annual Medicine, [place] B.SBenedict, R.N. Wellness Visit Clinic, in [address] [phone] Social History Tobacco Use Types Packs/Day Years [...] aids Nose symptoms: Other: no concerns LANGUAGES: Prydeinig VITALS: BP 146/86 (BP Location: Left arm, [...] of Children: 1- son who lives in [place] Special concerns reagding family members at home: [...] year?: No Home Environment note: Lives in [place] for warm months, in the cooler months lives in [place]. Has railings in homes for balance and [...] Hospital documented in this encounter Care Teams Refining Supervisor Relationship Specialty Start Date End Date Whitaker, Aneta Rodriguez APRN, C.N.P., PCP - General 06/13/18 M.S.N. [address] [place] [address] documented as of this encounter
--- OUTSIDE RECORDS SUMMARY | 2022-07-24 10:08 | XMS_ITS | Encounter Summary ---
:1940 Author Organization [facility] Address [address] [place] [address] Care Team Providers Name Role Phone Igor Horn P.A.-C. Primary Care Provider [phone] Encounter Details Date Type Department Care Team Description 08/20/2018 Clinical Communication Department of Igor Byrd [facility], [facility], in [address] [address] [place], [place] [phone] (Work) [phone] Social History Tobacco Use Types Packs/Day Years [...] and set up medications for trip to [place] PLAN Disposition/Recommendation: patient to schedule appointment Information: patient/caller able to repeat back in their own words Caller agreeable to plan of care: yes The following references were used: provider Igor Horn SPRING STRIP INSPECTOR Telephone Encounter - Igor Horn P.A.-C. - 08/20/2018 5:34 PM MAINSPRING STRIP INSPECTOR I have never seen her so she should come and see me before she leaves for [place] SPRING STRIP INSPECTOR Telephone Encounter - Kelli Patel - 08/20/2018 2:18 PM CST Ainsley stopped by asking how to handle her med refills that will come due in September, since [place]18 until January 2019. Please contact Ainsley to advise her at [phone]. SPRING STRIP INSPECTOR documented in this encounter Plan of Treatment Not on filedocumented as of this encounter Visit Diagnoses Not on filedocumented in this encounter Care Teams Commercial Appraiser Relationship Specialty Start Date End Date Igor Horn P.A.-C. PCP - General 06/14/18 03/15/22 [address] [place] [address] documented as of this encounter
--- OUTSIDE RECORDS SUMMARY | 2022-07-24 10:09 | XMS_ITS | Encounter Summary ---
:1940 Author Organization [facility] Address [address] [place] [address] Care Team Providers Name Role Phone Unavailable Primary Care Provider Unavailable Encounter Details Date Type Department Care Team Description 04/22/2014 Hospital Encounter [facility]X [facility] Naomi Parker, MISA, C.N.P., D. N.P. [address] [place], [place] [address] (Wo rk) Social History [...] slept in a care home (including now)? Sex Assigned at Date [...] Body Mass Index 35.16 09/25/2013 8:26 AM PILOT STEAM YACHT documented in this encounter Medications at Time [...] APRN, C.N.P. - 04/22/2014 9:41 AM CDT [id number] CHIEF COMPLAINT/REASON FOR VISIT Sore hand. HISTORY [...] SKINNER CNP On: 05/28/2014 04:37 PM Source: [facility] MHSDOLBEYNONRADSYS Document Id: [id number] documented in this encounter Miscellaneous Notes Miscellaneous - Jonathon Parker APRN, C.N.P. - 04/22/2014 11:37 AM CDT Ambulatory Patient Summary [address] [id number] Visit Information Name: AINSLEY AGUAYO [facility] Number: [id number] Visit Date: 04/22/2014 11:37:03 Attending [...] nasal (Flonase 0.05 mg/inh nasal spray) 1 [place](s), Nostrils(Both), once a day hydrochlorothiazide (hydrochlorothiazide 25 [...] CNP Signed On:22-APR-2014 11:36:51 Additional Information: Source: [facility] POWERCHART Document Id: [id number] Miscellaneous - Jonathon Parker APRN, C.N.P. - 04/22/2014 11:37 AM CDT Ambulatory Discharge Medication List [address] [id number] Visit Information Name: AINSLEY AGUAYO [facility] Number: [id number] Visit Date: 04/22/2014 11:37:01 Attending Provider: JONATHON SKINNER CNP Primary Care Provider: JONATHON SKINNER CNP AINSLEY AGUAYO ELIZABETH has been given the following list of [...] nasal (Flonase 0.05 mg/inh nasal spray) 1 [place](s), Nostrils(Both), once a day hydrochlorothiazide (hydrochlorothiazide 25 [...] of emergency. Electronically Signed By: JONATHON SKINNER LOADING INSPECTOR Signed On:22-APR-2014 11:36:51 Additional Information: Source: [facility] POWERCHART Document Id: [id number] Miscellaneous - Stephen Rubin, L.P.N. - 04/22/2014 9:51 AM CDT Adult Computer Systems Technology Instructor Intake/History Adult Computer Systems Technology Instructor Intake/History Entered On: 04/22/2014 9:53 CDT Performed On: 04/22/2014 9:51 CDT by STEPHEN RUBIN SENIOR PRODUCT INTEGRITY ENGINEER Intake Chief Complaint : sore left lateral [...] scale Dosing Weight Clinic : 93.3 kg JAYASHREEKAYLAHLEENA STEPHEN Haynes LPN - 04/22/2014 9:51 CDT General Info Information Given By : Patient Preferred Communication Mode : Verbal Languages : Danish MARIELEENA STEPHEN Haynes LPN - 04/22/2014 9:51 CDT Subjective Pain Symptoms : Yes JAYASHREEKAYLAHLEENASTEPHEN LPN - 04/22/2014 9:51 CDT Pain Pain Assessment Grid Pain 1 Location : Hand Laterality : Left Intensity : 8 (Comment: states does not hurt if not moving it. States pain is a 8 with ROM [MARIELEENASTEPHEN LPN - 04/22/2014 9:51 CDT] ) Duration [...] RUBIN LPN - 04/22/2014 9:51 CDT Source: [employer] Document Id: [id number] CDT!43 documented in this encounter Plan of [...] or more views 04/22/2014 10:51:10 Addendum by Provider, Cristiana Marino o n 04/22/2014 10:51 AM CDT RAD^^^MA XR Hand Left 3 or more views 04/22/2014 10:51:10 Narrative 04/22/2014 10:41 AM CDT Exam: ?XR Hand Left 3 or more views Clinical history: ??Hand pain [id number] s/ p fall (pain as base of [...] above. Procedure Note Chaparro Vasquez M.D. / Provider, Daniel alonso M.D. - 02/15/2017 Exam: XR Hand Left 3 or more views Clinical history: Hand pain [id number] s/p fall (pain as base of palm [...]
--- OUTSIDE RECORDS SUMMARY | 2022-07-24 10:09 | XMS_ITS | Encounter Summary ---
:1940 Author Organization [facility] Address [address] [place] [address] Care Team Providers Name Role Phone Unavailable Primary Care Provider Unavailable Encounter Details Date Type Department Care Team Description 09/16/2014 Hospital Encounter HX [facility] Tino Horn P.A.-C. [address] [place] [address] (Wo rk) Social History Tobacco [...] or slept in a correction (including now)? Sex Assigned at Date Recorded Female 06/26/2021 8:35 AM CDT documented as of this encounter Last Filed Vital Signs Vital Sign Reading Time Taken Comments Blood Pressure 120/78 09/16/2014 9:15 AM BUSINESS INTELLIGENCE DEVELOPER Pulse 78 09/16/2014 9:15 AM BUSINESS INTELLIGENCE DEVELOPER Temperature - - Respiratory Rate 16 09/16/2014 9:15 AM BUSINESS INTELLIGENCE DEVELOPER Oxygen Saturation - - Inhaled Oxygen Concentration - - Weight 93.6 kg (206 lb 5.6 oz) 09/16/2014 9:15 AM BUSINESS INTELLIGENCE DEVELOPER Height 162 cm (5' 3.78) 09/16/2014 9:15 AM BUSINESS INTELLIGENCE DEVELOPER Body Mass Index 35.66 09/16/2014 9:15 AM BUSINESS INTELLIGENCE DEVELOPER documented in this encounter Medications at Time [...] Horn P.A.-C. - 09/16/2014 8:49 AM CST [id number] CHIEF COMPLAINT/REASON FOR VISIT History and physical [...] within the next month. She would be [place] Society of Anesthesiologists Class 2 for surgery. [...] HORN PA-C On: 09/16/2014 01:36 PM Source: [facility] MHSDOLBEYNONRADSYS Document Id: [id number] NESS INTELLIGENCE DEVELOPER documented in this encounter Miscellaneous Notes Miscellaneous - Joshua Rubin L.P.N. - 09/16/2014 9:15 AM CST Adult Manager Leadership Development Intake/History Adult Manager Leadership Development Intake/History Entered On: 09/16/2014 9:17 BUSINESS INTELLIGENCE DEVELOPER Performed On: 09/16/2014 9:15 BUSINESS INTELLIGENCE DEVELOPER by JOSHUA RUBIN LPN Intake Chief Complaint [...] kg/m2 JOSHUA RUBIN LPN - 09/16/2014 9:15 BUSINESS INTELLIGENCE DEVELOPER General Info Information Given By : Patient Preferred Communication Mode : Verbal Languages : Italian Is Patient Female and 13-50 no hysterectomy : No JOSHUA RUBIN LPN - 09/16/2014 9:15 BUSINESS INTELLIGENCE DEVELOPER Subjective Pain Symptoms : Yes JOSHUA RUBIN LPN - 09/16/2014 9:15 BUSINESS INTELLIGENCE DEVELOPER Pain Pain Assessment Grid Pain 1 Pain 2 Location : Knee Laterality : Left Intensity : 9 Duration : months JOSHUA RUBIN LPN - 09/16/2014 9:15 BUSINESS INTELLIGENCE DEVELOPER JOSHUA RUBIN LPN - 09/16/2014 9:15 BUSINESS INTELLIGENCE DEVELOPER Dependent Habits Tobacco Use/Currently Using : No Tobacco Use/Last 12 months : No Tobacco Use/Advised to Quit : No Exposure to Tobacco Smoke : Other: Never Smoked Smoking Status : Never smoker JOSHUA RUBIN LPN - 09/16/2014 9:15 BUSINESS INTELLIGENCE DEVELOPER Caffeine Use Grid Caffeine Use : Current Type : Soft drinks Frequency : Daily Amount : 1 can diet soda JOSHUA RUBIN LPN - 09/16/2014 9:15 BUSINESS INTELLIGENCE DEVELOPER Recreational Drug Use Grid Drug Use : None JOSHUA RUBIN LPN - 09/16/2014 9:15 BUSINESS INTELLIGENCE DEVELOPER ID Screen Drug Resistant Organism : No Travel Within Last 21 Days : No JOSHUA RUBIN LPN - 09/16/2014 9:15 BUSINESS INTELLIGENCE DEVELOPER Source: [facility] [employer] Document Id: [id number] BUSINESS INTELLIGENCE DEVELOPER!50 NESS INTELLIGENCE DEVELOPER Miscellaneous - Joshua Rubin, L.P.N. - 09/16/2014 9:15 AM CST Health Assessment Health Assessment Entered On: 09/16/2014 9:18 BUSINESS INTELLIGENCE DEVELOPER Performed On: 09/16/2014 9:15 BUSINESS INTELLIGENCE DEVELOPER by JOSHUA RUBIN LPN Health Assessment Complete Health Assessment Complete or Modified : Annual Health Assessment Annual Health Assessment Completed : Yes JOSHUA RUBIN LPN - 09/16/2014 9:15 BUSINESS INTELLIGENCE DEVELOPER Nutrition Nutrition Risk Factors by History Adult : None JOSHUA RUBIN LPN - 09/16/2014 9:15 BUSINESS INTELLIGENCE DEVELOPER Functional Current Daily Living Assistance : None Mobility Assistance Prior to Admission : Independent JOSHUA RUBIN LPN - 09/16/2014 9:15 BUSINESS INTELLIGENCE DEVELOPER Dependent Habits Tobacco Use/Currently Using : No Tobacco Use/Last 12 months : No Tobacco Use/Advised to Quit : No Exposure to Tobacco Smoke : Other: Never Smoked Smoking Status : Never smoker Alcohol Use : Yes JOSHUA RUBIN LPN - 09/16/2014 9:15 BUSINESS INTELLIGENCE DEVELOPER Caffeine Use Grid Caffeine Use : Current Type : Soft drinks Frequency : Daily Amount : 1 can diet soda Last Use : 09/15/14 JOSHUA RUBIN LPN - 09/16/2014 9:15 BUSINESS INTELLIGENCE DEVELOPER Recreational Drug Use Grid Drug Use : None JOSHUA RUBIN LPN - 09/16/2014 9:15 BUSINESS INTELLIGENCE DEVELOPER AUDIT Tool How Often Do You Have A Drink : 2 to 4 times a month How Many Drinks in a Day When Drinking : 1 or 2 Six or More Drinks On One Occassion : Never Audit Phase 1 Score : 2 JOSHUA RUBIN LPN - 09/16/2014 9:15 BUSINESS INTELLIGENCE DEVELOPER Psychosocial Domestic Abuse Concerns : None Marital Status : Number of Children : 1 Employment Status : Retired Education : College Graduate Muslim Preference : Unknown JOSHUA RUBIN LPN - 09/16/2014 9:15 BUSINESS INTELLIGENCE DEVELOPER Advance Directive Advanced Directives : No Advance Directive Additional Information : No JOSHUA RUBIN LPN - 09/16/2014 9:15 BUSINESS INTELLIGENCE DEVELOPER Educ Needs Learning Style Preference Adult Grid Patient : Printed materials, Verbal explanation Family : Verbal explanation, Printed materials JOSHUA RUBIN LPN - 09/16/2014 9:15 BUSINESS INTELLIGENCE DEVELOPER Source: [employer] Document Id: [id number] BUSINESS INTELLIGENCE DEVELOPER!45 NESS INTELLIGENCE DEVELOPER Miscellaneous - Joshua Rubin L.P.N. - 09/16/2014 9:15 AM CST PHQ-9 PHQ-9 Entered On: 09/16/2014 9:18 BUSINESS INTELLIGENCE DEVELOPER Performed On: 09/16/2014 9:15 BUSINESS INTELLIGENCE DEVELOPER by JOSHUA RUBIN LPN PHQ-9 Little interest [...] difficult JOSHUA RUBIN LPN - 09/16/2014 9:15 BUSINESS INTELLIGENCE DEVELOPER Source: [employer] Document Id: [id number] BUSINESS INTELLIGENCE DEVELOPER!13 NESS INTELLIGENCE DEVELOPER documented in this encounter Plan of Treatment Not on filedocumented as of this encounter Visit Diagnoses Not on filedocumented in this encounter Additional Health Concerns Assessment Noted Time PHQ-9 Depression Total Score: 1 09/16/2014 9:15 AM BUSINESS INTELLIGENCE DEVELOPER documented as of this encounter
--- OUTSIDE RECORDS SUMMARY | 2022-07-24 10:09 | XMS_ITS | Encounter Summary ---
:1940 Author Organization [facility] Address [address] [place] [address] Care Team Providers Name Role Phone Unavailable Primary Care Provider Unavailable Encounter Details Date Type Department Care Team Description 11/09/2014 Hospital Encounter HX NO MAPPING Donya Alexander V., APR N, C.N.P. [address] [place], [place] [phone] (Wo rk) Social History [...] documented as of this encounter Progress Notes Donya Alexander V, MISA, C.N.P. - 11/09/2014 2:12 PM CST [id number] PHYS[address]IAN Dr. Zapien. HISTORY OF PRESENT ILLNESS I was asked to go speak with Ainsley regarding pain control. 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 She is doing well in the care home and is actually planning on leaving on Saturday. She is pretty much independent in the care home setting and is just receiving therapy here. She has two questions or complaints, the first one being she is asking for a laxative to be scheduled. The other thing is, she does not like the Percocet at all and would like to try and Cardington. I did tell her that she would get Senna-S 2 at bedtime tonight as senna given in the evening or at bedtime is to help promote a bowel movement in the morning. Her last BM was yesterday which was a medium. The Percocet will be discontinued, even though it was reduced yesterday. She will be started on Cardington 5/325 one for pain 1 to 5; [...] tightens. Nursing will continue to monitor, notify RECEIVING WORKER/MD of changes. This was a face to face conversational visit for approximately 15 minutes. Donya Alexander CNP/tello cc: [place] [address] Electronically Signed By: DONYA ALEXANDER CNP On: 11/17/2014 08:07 AM Source: [facility] MHSDOLBEYNONRADSYS Document Id: [id number] [place] MORTGAGE BANKER documented in this encounter Plan of Treatment Not on filedocumented as of this encounter Visit Diagnoses Not on filedocumented in this encounter Additional Health Concerns Assessment Noted Time PHQ-9 Depression Total Score: 1 09/16/2014 9:15 AM RETAIL MORTGAGE BANKER documented as of this encounter
--- OUTSIDE RECORDS SUMMARY | 2022-07-24 10:09 | XMS_ITS | Encounter Summary ---
:1940 Author Organization [facility] Address [address] [place] [address] Care Team Providers Name Role Phone Unavailable Primary Care Provider Unavailable Encounter Details Date Type Department Care Team Description 11/26/2014 Hospital Encounter HX NO MAPPING Anabella Root M.D. [address] [place], [place] [phone] (Wo rk) Social History [...] a [place] (including now)? Sex Assigned at Date Recorded [...] Historical Provider Ser - 11/26/2014 11:59 PM MEDICAL TRANSCRIPTION RADIOLOGY Coding Summary-Paper Based CODING DATE: 12/03/2014 FINAL [facility] STATUS: * Discharged to Home or Self [...] ALVARENGA Date Saved: 12/03/2014 06:42 pm [facility] Document Id: [id number] documented in this encounter Plan of Treatment Not on filedocumented as of this encounter Visit Diagnoses Not on filedocumented in this encounter Additional Health Concerns Assessment Noted Time PHQ-9 Depression Total Score: 1 09/16/2014 9:15 AM MEDICAL TRANSCRIPTION RADIOLOGY documented as of this encounter
--- OUTSIDE RECORDS SUMMARY | 2022-07-24 10:09 | XMS_ITS | Encounter Summary ---
:1940 Author Organization [facility] Address [address] [place] [address] Care Team Providers Name Role Phone Unavailable Primary Care Provider Unavailable Encounter Details Date Type Department Care Team Description 11/26/2014 Hospital Encounter HX [facility] FBHB FAMILYPRA Jack Apodaca i, M.D. [address] [place] [address] (Wo rk) Social History Tobacco [...] Comments Blood Pressure 134/80 11/26/2014 11:47 AM LINK TRAINER Pulse 84 11/26/2014 11:47 AM LINK TRAINER Temperature - - Respiratory Rate 16 11/26/2014 11:47 AM LINK TRAINER Oxygen Saturation - - Inhaled Oxygen Concentration - - Weight 93 kg (205 lb 0.4 oz) 11/26/2014 11:47 AM LINK TRAINER Height - - Body Mass Index 35.88 10/15/2014 11:45 AM LINK TRAINER documented in this encounter Medications at Time [...] Lopez M.D. - 11/26/2014 11:02 AM CST [id number] CHIEF COMPLAINT/ REASON FOR VISIT Followup knee arthroplasty HISTORY OF PRESENT ILLNESS Ainsley is a 74-year -old female who presents to the clinic today for followup knee arthroplasty. She was seen on 11/18 with a followup for a recent left knee arthroplasty where her prescription for Colchester was renewed. She notices that her knee is very tender and will be tender even with light brushing from clothing. She has questions regarding her medications for pain management. She is currently taking one [place] twice daily with Tylenol at other times. [...] as outlined in the EMR including 1. Colchester 0.5 tablet twice daily ALLERGIES Cats-unknown Prochlorperazine-unknown [...] IMPRESSION/REPORT/PLAN 1. Followup of recent knee arthroplasty. Colchester medication was decreased as above. She may [...] behalf by Selin Holloway, a trained medical auditor. The creation of this record is based on the scribe's personal observations and the provider's statements to them. This document has been denise cked and approved by the attending provider. Jack Martin M.D./denis Electronically Signed By: JACK LOPEZ MD On: 12/10/2014 08:41 AM Source: [facility] MHSDOLRAYMOND Document Id: [id number] TRAINER documented in this encounter Miscellaneous Notes Telephone [...] appiontment status. From: JEREMIAH ELLSWORTH (DAVID Pascual Curriculum Coordinator) To: DAVID Pascual Family Medicine Nurse; Sent: 12/20/2014 15:18:15 CDT Subject: *Phone Message Caller is: (x ) Patient ( ) Mother ( ) Father ( ) Spouse ( ) Daughter ( ) Son ( ) Pharmacy ( ) Other: Physician: Patient MRN #: Reason for Call: Patient is wondering if her Mammogram in [place] was scheduled? What day and time? [phone] Message: Advice/Action: Source used: ( ) Verbalizes [...] back cell phone number ( ) Source: [facility] POWERCHART Document Id: [id number] Miscellaneous - Jack Lopez M.D. - 11/27/2014 12:07 AM LINK TRAINER Ambulatory Patient Summary [id number] [place], [place] [phone] Visit Information Name: AINSLEY AGUAYO [facility] Number: [id number] Current Date: 11/27/2014 00:07:18 Physicians [...] nasal (Flonase 0.05 mg/inh nasal spray) 1 [place](s), Nostrils(Both), once a day hydrochlorothiazide (hydrochlorothiazide 25 mg oral tablet) 1 Tablet(s), Oral, once a day HYDROcodone-acetaminophen ([place] 5 mg-325 mg oral tablet) 1 Tablet(s), [...] appointment detail needed. Your Goals/Additional instructions: Source: [facility] POWERCHART Document Id: [id number] TRAINER Miscellaneous - Jack Lopez M.D. - 11/27/2014 12:07 AM LINK TRAINER Ambulatory Discharge Medication List [address] [id number] Visit Information Name: AINSLEY AGUAYO [facility] Number: [id number] Visit Date: 11/27/2014 00:07:17 Attending [...] nasal (Flonase 0.05 mg/inh nasal spray) 1 [place](s), Nostrils(Both), once a day hydrochlorothiazide (hydrochlorothiazide 25 mg oral tablet) 1 Tablet(s), Oral, once a day HYDROcodone-acetaminophen ([place] 5 mg-325 mg oral tablet) 1 Tablet(s), [...] MD Signed On:27-NOV-2014 00:07:04 Additional Information: Source: [facility] POWERCHART Document Id: [id number] TRAINER Miscellaneous - Conversion, Historical Provider Ser - 11/26/2014 11:47 AM LINK TRAINER Adult Blood Donor Recruiter Intake/History Adult Blood Donor Recruiter Intake/History Entered On: 11/26/2014 11:48 LINK TRAINER Performed On: 11/26/2014 11:47 LINK TRAINER by JOE RAZA LPN Intake Chief Complaint [...] Clinic : 93 kg JOE RAZA LPN - 11/26/2014 11:47 LINK TRAINER General Info Information Given By : Patient Languages : Macedonian Is Patient Female and 13-50 no hysterectomy : No JOE RAZA [facility] - 11/26/2014 11:47 LINK TRAINER Subjective Pain Symptoms : Yes JOE RAZA [facility] - 11/26/2014 11:47 LINK TRAINER Pain Scale Pain Scale Verbal 0-10 : Open JOE RAZA [facility] - 11/26/2014 11:47 LINK TRAINER Pain Pain Assessment Grid Pain 1 Location : Knee Laterality : Left JOE RAZA [facility] - 11/26/2014 11:47 LINK TRAINER Dependent Habits Tobacco Use/Currently Using : No Exposure to Tobacco Smoke : Other: Never Smoked Smoking Status : Never smoker JOE RAZA [facility] 11/26/2014 11:47 LINK TRAINER Caffeine Use Grid Caffeine Use : Current Type : Soft drinks Frequency : Daily Amount : 1 can diet soda Last Use : 09/15/14 JOE RAZA [facility] - 11/26/2014 11:47 LINK TRAINER Recreational Drug Use Grid Drug Use : None JOE RAZA [facility] 11/26/2014 11:47 LINK TRAINER ID Screen Drug Resistant Organism : No Travel Within Last 21 Days : No JOE RAZA [facility] 11/26/2014 11:47 LINK TRAINER Source: [facility] [employer] Document Id: [id number] LINK TRAINER!43 documented in this encounter Plan of Treatment Not on filedocumented as of this encounter Procedures Procedure Name Priority Date/Time Associated Diagnosis Comme nts BACTERIAL CULTURE, Routine 11/26/2014 12:30 PM Re sults for this AEROBIC, URINE LINK TRAINER procedure are in the results section. documented in this encounter Results Bacterial Culture, Aerobic, Urine (11/26/2014 12:30 PM LINK TRAINER) [facility] Method Time Signature Bacterial POWERCHART Culture, Aerobic, Urine HXFinal Mixed eros. No POWERCHART further studies unless notified. [facility] POWER[facility] Microbiology laboratory [phone]. Specimen (Source) Anatomical Collection Method Collection Time Re ceived Time Location / / Volume Laterality Urine, First 11/26/2014 12:30 Voided PM LINK TRAINER Jack Root M.D. LAB MICROBIOLOGY - GEN ERAL ORDERABLES Performing Organization Address City/State/ZIP Code Phon e Number POWERCHART documented in this encounter Visit Diagnoses Not on filedocumented in this encounter Additional Health Concerns Assessment Noted Time PHQ-9 Depression Total Score: 1 09/16/2014 9:15 AM LINK TRAINER documented as of this encounter
--- OUTSIDE RECORDS SUMMARY | 2022-07-24 10:09 | XMS_ITS | Encounter Summary ---
:[address] [facility] Address [address] [place] [address] Care Team Providers Name Role Phone Unavailable Primary Care Provider Unavailable Encounter Details Date Type Department Care Team Description 03/13/2016 Hospital Encounter HX [facility] FBKF FAMILYPRA Delbert Whitaker APRN C.N.P., M.S.N. [address] [place] [address] (Wo rk) Social History Tobacco Use Types [...] this encounter Progress Notes Delbert Whitaker APRN, IMAGING AIDE - 03/13/2016 8:31 AM CDT [id number] CHIEF COMPLAINT/REASON FOR VISIT Low back pain [...] has worked well for her arthritis in [facility] was Tylenol Arthritis. She does not take [...] Diaz -C./tello Electronically Signed By: DELBERT WHITAKER [facility] On: 04/03/2016 11:12 AM Source: [facility] MHSDOLBEYNONRADSYS Document Id: [id number] documented in this encounter Miscellaneous Notes Miscellaneous - Joshua Rubin, L.PAntwanNAntwan - 03/13/2016 8:44 AM CDT Adult Business Area Manager Intake/History Adult Business Area Manager Intake/History Entered On: 03/13/2016 8:47 CDT Performed [...] Preferred Communication Mode : Verbal Languages : Maltese Is Patient Female and 13-50 no hysterectomy [...] RUBIN LPN - 03/13/2016 8:44 CDT Source: [facility] Document Id: [id number] CDT!49 Miscellaneous - Joshua Rubin L.P.N. - 03/13/2016 8:44 AM CDT PHQ-9 [...] RUBIN LPN - 03/13/2016 8:44 CDT Source: [facility] [employer] Document Id: [id number] CDT!13 documented in this encounter Plan of Treatment Not on filedocumented as of this encounter Visit Diagnoses Not on filedocumented in this encounter
--- OUTSIDE RECORDS SUMMARY | 2022-07-24 10:09 | XMS_ITS | Encounter Summary ---
:1940 Author Organization [facility] Address [address] [place] [address] Care Team Providers Name Role Phone Unavailable Primary Care Provider Unavailable Encounter Details Date Type Department Care Team Description 09/13/2016 Hospital Encounter HX NO MAPPING Aneta Whitaker APRN, C.N.P., M. S.N. [address] [place], [place] [phone] (Wo rk) Social History [...] More than 4 times per year 03/16/2022 latter-day services? Do you belong to any clubs [...] Historical Provider Ser - 09/13/2016 11:59 PM GROCERY CARRIER Coding Summary-Paper Based CODING DATE: 09/25/2016 FINAL [facility] STATUS: * Discharged to Home [...] ROSALES Date Saved: 09/25/2016 08:46 am [facility] Document Id: [id number] documented in this encounter Plan of Treatment Not on filedocumented as of this encounter Visit Diagnoses Not on filedocumented in this encounter
--- OUTSIDE RECORDS SUMMARY | 2022-07-24 10:09 | XMS_ITS | Encounter Summary ---
:1940 Author Organization [facility] Address [address] [place] [address] Care Team Providers Name Role Phone Unavailable Primary Care Provider Unavailable Encounter Details Date Type Department Care Team Description 07/01/2015 Hospital Encounter HX [facility] Delbert Whitaker APRN C.N.P., M.S.N. [address] [place] [address] (Wo rk) Social History Tobacco Use Types [...] this encounter Progress Notes Delbert Whitaker APRN, HOME ECONOMIST CONSUMER SERVICE - 07/01/2015 7:50 AM CDT [id number] CHIEF COMPLAINT/REASON FOR VISIT I think I [...] WHITAKER CNP On: 07/10/2015 10:54 AM Source: [facility] MHSDOLBEYNONRADSYS Document Id: [id number] documented in this encounter Procedure Notes Joshua [...] : Negative Test Strip Lot # : [id number] Test Strip Expiration Date : 03/2018 JOSHUA RUBIN LPN - 07/01/2015 8:09 CDT Source: [place] Document Id: [id number] CDT!16 documented in this encounter Miscellaneous Notes [...] RUBIN LPN - 07/01/2015 8:48 CDT Source: [place] Document Id: [id number] CDT!13 Miscellaneous - Joshua Rubin L.PAntwanNAntwan - 07/01/2015 7:59 AM CDT Adult Squad Boss Intake/History Adult Squad Boss Intake/History Entered On: 07/01/2015 8:00 CDT Performed [...] Preferred Communication Mode : Verbal Languages : Welsh Is Patient Female and 13-50 no hysterectomy [...] RUBIN LPN - 07/01/2015 7:59 CDT [facility] Document Id: [id number] CDT!39 documented in this encounter Plan of [...] Tobramycin SUSCEPTIBILITY, ALEJANDRA <=1: Suscep tible (MCG/ML) Delbert Whitaker APRN, C.N.P., M.S.N. LAB MICROB IOLOGY - GENERAL ORDERABLES Performing Organization Address City/State/ZIP Code Phon e Number POWERCHART Ketone, Urine, POCT (07/01/2015 8:09 AM CDT) [facility] gist Method Time Signature Color Pale Yellow POWERCHART Appearance Cloudy POWERCHART Leukocytes, Negative POWERCHART POCT, U Nitrites, Positive POWERCHART POCT, U Urobilinogen, 0.2 mg/dl POWERCHART POCT, Urine Protein, POCT, Negative POWERCHART U pH, POCT, 7.0 5.0 - 9.0 POWERCHART Urine Blood, POCT, U 2+ MODERATE POWERCHART Specific 1.020 1.000 - POWERCHART [place], POCT, 1.030 U Ketone, POCT, Negative POWERCHART U Bilirubin, Negative POWERCHART POCT, U Glucose, POCT, Negative POWERCHART U Specimen (Source) Anatomical Collection Method Collection Time Re ceived Time Location / / Volume Laterality 07/01/2015 8:09 AM CDT Delbert Whitaker APRN, C.N.P., M.S.N. LAB POCT O RDERABLES-MANUAL Performing Organization Address City/State/[facility] Code Phon e Number POWERCHART documented in this encounter Visit Diagnoses Not on filedocumented in this encounter Additional Health Concerns Assessment Noted Time PHQ-9 Depression Total Score: 5 07/01/2015 8:48 AM CDT documented as of this encounter
--- OUTSIDE RECORDS SUMMARY | 2022-07-24 10:09 | XMS_ITS | Encounter Summary ---
:1940 Author Organization [facility] Address [address] [place] [address] Care Team Providers Name Role Phone Unavailable Primary Care Provider Unavailable Encounter Details Date Type Department Care Team Description 09/13/2016 Hospital Encounter HX [facility] LAB Whitaker, Cecily Rodriguez APRN, C.N.P., M. S.N. [address] [place], [place] [phone] (Wo rk) Social History [...] Resul ts for this AEROBIC, URINE AM EXTENSION PROFESSOR procedure are in the results section. URINALYSIS, MIDSTREAM, Routine 09/13/2016 11:43 R esults for this WITH CULTURE IF AM EXTENSION PROFESSOR procedure ar e in INDICATED the results section. LIPID PANEL, S Routine 09/13/2016 8:26 AM Results for this EXTENSION PROFESSOR procedure are i n the results section. VITAMIN B12 AND Routine 09/13/2016 8:26 AM Result s for this FOLATE, S EXTENSION PROFESSOR procedure are i n the results section. AUTOMATED Routine 09/13/2016 8:26 AM Results f or this DIFFERENTIAL, B EXTENSION PROFESSOR procedure ar e in the results section. 25-HYDROXYVITAMIN D2 Routine 09/13/2016 8:26 AM R esults for this AND D3, S EXTENSION PROFESSOR procedure are i n the results section. CBC WITH DIFFERENTIAL, Routine 09/13/2016 8:26 AM Results for this B EXTENSION PROFESSOR procedure are i n the results section. THYROID-STIMULATING Routine 09/13/2016 8:26 AM Re sults for this HORMONE-SENSITIVE EXTENSION PROFESSOR procedure are in (S-TSH) the results section. COMPREHENSIVE Routine 09/13/2016 8:26 AM Results for this METABOLIC PANEL, S/P EXTENSION PROFESSOR procedu re are in the results section. documented in this encounter Results (ABNORMAL) Bacterial Culture, Aerobic, Urine (09/13/2016 11:47 AM EXTENSION PROFESSOR) [facility] gist Method Time Signature Bacterial STASIM <=0.5 POWERCHART Culture, (POSITIVE) Aerobic, Urine HXPre STASIM POWERCHART Comment: >100,000 cfu/mL Staphylococcus simulans HXFinal STASIM POWERCHART Comment: >100,000 cfu/mL Staphylococcus simulans Specimen Anatomical Collection Method Collection Time Receive d Time (Source) Location / / Volume Laterality Urine, First 09/13/2016 11:47 09/13/2016 Voided AM EXTENSION PROFESSOR 11:47 AM EXTENSION PROFESSOR Organism Antibiotic Method Susceptibility Staphylococcus simulans Ciprofloxacin [...] with culture if indicated (09/13/2016 11:43 AM EXTENSION PROFESSOR) Patholo gist Method Time Signature HXUr Color Yellow POWERCHART Clarity Slightly POWERCHART Cloudy (A) Glucose Negative MGDL POWERCHART HXBILIRUBIN Negative POWERCHART Ketones, QL(U) Negative Negative POWERCHART MGDL Specific 1.020 POWERCHART [place], POCT, U Comment: Reference Range Specific [place]: 1.000-1.035 HXBLOOD Negative POWERCHART pH, POCT, Urine [...] Laterality Urine, First 09/13/2016 11:43 Voided AM EXTENSION PROFESSOR Aneta Whitaker APRN C.N.P., M.S.N. LAB URINE ORDERABLES Performing Organization Address [facility] Phon e Number POWERCHART Automated Differential (09/13/2016 8:26 AM EXTENSION PROFESSOR) P athologist Signature Absolute 3.50 1.70 - POWERCHART Neutrophils 7.00 109L Lymphocytes 2.21 0.90 - POWERCHART 2.90 X109L Monocytes 0.51 0.30 - POWERCHART 0.90 X109L Eosinophils 0.12 0.05 - POWERCHART 0.50 X109L Absolute 0.03 0.00 - POWERCHART Basophil 0.30 X109L Specimen Anatomical Collection Method Collection Time Receive d Time (Source) Location / / Volume Laterality Blood 09/13/2016 8:26 AM 6 8:26 EXTENSION PROFESSOR AM EXTENSION PROFESSOR Aneta Whitaker APRN C.N.P., M.S.N. LAB BLOOD ADD-ON Performing Organization Address City/State/ZIP Code Phon e Number POWERCHART CBC with Differential (09/13/2016 8:26 AM EXTENSION PROFESSOR) athologist Signature Leukocytes 6.4 3.4 - 10.5 POWERCHART X109L Erythrocytes 4.20 3.90 - POWERCHART 5.03 [id number] Hemoglobin 12.0 12.0 - POWERCHART 15.5 GDL Hematocrit 36.7 34.9 - POWERCHART 44.5 MCV 87.4 82.0 - POWERCHART 98.0 FL HX RDW 14.9 11.9 - POWERCHART 15.5 Platelet Count 306 150 - 450 POWERCHART X109L HXDifferential? Auto POWERCHART Specimen (Source) Anatomical Collection Method Collection Time Re ceived Time Location / / Volume Laterality Blood 09/13/2016 8:26 AM EXTENSION PROFESSOR Aneta Whitaker APRN, C.N.P., M.S.N. LAB BLOOD ADD-ON Performing Organization Address City/[facility] Code Phon e Number POWERCHART 25-Hydroxyvitamin D2 and D3 (09/13/2016 8:26 AM EXTENSION PROFESSOR) athologist Signature HX25 HYDROXY D2 <4.0 NGML POWERCHART 25-Hydroxy D3 34 NGML POWERCHART Vitamin D, S 34 NGML POWERCHART Comment: REFERENCE VALUE------ 25-HYDROXY D TOTAL (D2+D3) Optimum level s in the healthy population are 20-50, patients with bone disease may benefit from higher levels within this r anh. ADDITIONAL INFORMATIO N This test was developed and its performa nce characteristics determined by [facility] in a manner co nsistent with CLIA requirements. This test has not been lolis ared or approved by the U.S. Food and Drug Administration. Test Performed by: [address] [address] Warp Changer: Hermes Lees II, M.D., Ph.D. Specimen (Source) Anatomical Collection Method Collection Time Re ceived Time Location / / Volume Laterality Blood 09/13/2016 8:26 AM EXTENSION PROFESSOR Aneta Whitaker APRN, C.N.P., M.S.N. LAB BLOOD ADD-ON Performing Organization Address City/[facility] Code Phon e Number POWERCHART Vitamin B12 Level and Folate (09/13/2016 8:26 AM EXTENSION PROFESSOR) athologist Signature Vitamin B12 289 180 - 914 POWERCHART Assay, S NGL Comment: Biotin has been identified by the [facility] ctdebbier as a potential interfering substance. Higher concentrations of biotin may be found in multivitamins, hair/nail supplements, and workout supplements. If the result does not match clinical observat ions, repeat testing after patient refrains from the use of supplements for at least 12 hours. Folate, S 11.7 >=4.6 MCGL POWERCHART Comment: Biotin has been identified by the [facility] ctdebbier as a potential interfering substance. [...] / Volume Laterality Blood 09/13/2016 8:26 AM EXTENSION PROFESSOR Victor Hugo Renteria APRNNAvtar, M.S.N. LAB BLOOD NON ADD-ON Performing Organization Address City/[facility] Phon e Number POWERCHART Thyroid-Stimulating Hormone-Sensitive (s-TSH) (09/13/2016 8:26 AM EXTENSION PROFESSOR) athologist Signature TSH 1.33 0.27 - 4.20 POWERCHART (Thyrotropin) MIUL Comment: Biotin has been identified by the [facility] cturer as a potential interfering substance. [...] / Volume Laterality Blood 09/13/2016 8:26 AM EXTENSION PROFESSOR Victor Hugo Renteria APRNN.Amanda., M.S.N. LAB BLOOD ADD-ON Performing Organization Address City/State/ZIP Code Phon e Number POWERCHART (ABNORMAL) Lipid Panel (09/13/2016 8:26 AM EXTENSION PROFESSOR) P athologist Signature Cholesterol, 152 <=199 MGDL [...] esting for FH and FDB is available [facility]: FH/ADH Genetic Reflex [place] (test ADHP). Acquired (non-genetic) causes of markedly increased LDL cholesterol include cholestatic liver disease due to the presence of LpX. If a genetic form of hypercholesterolemia is suspected, family studies including biochemical testing fo r lipids (total cholesterol,triglycerides, LDL cholesterol and HDL cholesterol) are recommended. ??Please contact the laboratory at or the on-line test catalog at [employer] for information about how to order these ghada ts or to speak with a genetic counselor. Further interpretation would require clinical information. Total Cholesterol/HDL Ratio 3.00 PO WERCHART HXLDL/HDL 2 POWERCHART Specimen (Source) Anatomical Collection Method Collection Time Re ceived Time Location / / Volume Laterality Blood 09/13/2016 8:26 AM EXTENSION PROFESSOR Aneta Whitaker APRN, C.N.P., M.S.N. LAB BLOOD ADD-ON Performing Organization Address City/State/ZIP Code Phon e Number POWERCHART (ABNORMAL) CMP (Comprehensive Metabolic Panel) (09/13/2016 8:26 AM EXTENSION PROFESSOR) [facility] gist Method Time Signature Alanine 20 [...] POWERCHART MMOLL HXeGFR (MDRD) >60 >=60 POWERCHART [id number] 2 eGFR Black/ >60 >=60 POWERCHART [place] [id number] 2 Bilirubin, Total, S 0.5 <=1.2 POWERCHART MGDL Total Protein, S 7.1 6.4 - 8.3 POWERCHART GDL Specimen (Source) Anatomical Collection Method Collection Time Re ceived Time Location / / Volume Laterality Blood 09/13/2016 8:26 AM EXTENSION PROFESSOR Aneta Whitaker APRN, C.N.P., M.S.N. LAB BLOOD ADD-ON Performing Organization Address City/State/ZIP Code Phon e Number POWERCHART documented in this encounter Visit Diagnoses Not on filedocumented in this encounter
--- OUTSIDE RECORDS SUMMARY | 2022-07-24 10:09 | XMS_ITS | Encounter Summary ---
:1940 Author Organization [facility] Address [address] [place] [address] Care Team Providers Name Role Phone Unavailable Primary Care Provider Unavailable Encounter Details Date Type Department Care Team Description 10/24/2015 Hospital Encounter HX [facility] Luca Orona APRN, C.N.P., M. S.N. [address] [place], [place] [phone] (Wo rk) Social History [...] lts for this AND LATERAL 2 VIEWS PERFORMANCE REPORTER procedur e are in the results section. documented in this encounter Results DX Chest Anterior Posterior or Posterior Anterior and Lateral 2 Views (10/24/2015 9:54 AM PERFORMANCE REPORTER) Anatomical Region Laterality Modality Chest N/A Radiographic Imaging Specimen (Source) Anatomical Collection Method Collection Time Re ceived Time Location / / Volume Laterality 10/24/2015 9:54 AM PERFORMANCE REPORTER Addenda Addendum by Provider, Cristiana Marino 10/24/2015 9:54 AM PERFORMANCE REPORTER RAD^^^OW XR Chest 2 Views 10/24/2015 09:54:36 Impressions 10/24/2015 10:32 AM PERFORMANCE REPORTER No change. No focal consolidation or pleural effusion. Cardiac silhouette and pulmonary vascula rity are within the limits of normal. Narrative 10/24/2015 10:32 AM PERFORMANCE REPORTER EXAM: XR Chest 2 Views INDICATION: Hx lung Ca COMPARISON: 10/15/2014 Procedure Note Bernardino Lay M.D. / ProviderZaire M.D. - 02/08/2017 EXAM: XR Chest 2 [...] Depression Total Score: 1 09/20/2015 8:43 AM PERFORMANCE REPORTER documented as of this encounter
--- OUTSIDE RECORDS SUMMARY | 2022-07-24 10:09 | XMS_ITS | Encounter Summary ---
:1940 Author Organization [facility] Address [address] [place] [address] Care Team Providers Name Role Phone Unavailable Primary Care Provider Unavailable Encounter Details Date Type Department Care Team Description 09/20/2015 Hospital Encounter HX [facility] Aneta Whitaker APRN C.N.P., M.S.N. [address] [place] [address] (Wo rk) Social History Tobacco Use Types [...] Comments Blood Pressure 121/74 09/20/2015 8:29 AM SIDE STITCHING MACHINE OPERATOR Pulse 72 09/20/2015 8:29 AM SIDE STITCHING MACHINE OPERATOR Temperature - - Respiratory Rate 16 09/20/2015 8:29 AM SIDE STITCHING MACHINE OPERATOR Oxygen Saturation - - Inhaled Oxygen Concentration - - Weight 95.6 kg (210 lb 12.2 oz) 09/20/2015 8:29 AM SIDE STITCHING MACHINE OPERATOR Height 161.8 cm (5' 3.7) 09/20/2015 8:29 AM SIDE STITCHING MACHINE OPERATOR Body Mass Index 36.52 09/20/2015 8:29 AM SIDE STITCHING MACHINE OPERATOR documented in this encounter Medications at [...] this encounter H&P Notes Aneta Whitaker APRN, ASSIGNMENT OFFICER - 09/20/2015 8:23 AM CST [id number] CHIEF COMPLAINT/REASON FOR VISIT Annual exam. HISTORY OF PRESENT ILLNESS A very pleasant 74-year-old female presents for annual physical exam. She states she is doing very well. Did have recent left knee surgery and states it has been a long haul but she is doing much better. Started working out last month at the gym. She has a racehorse trainer and she says since she has [...] ordered for when she returns home from [place] in February. Strongly encouraged her to continue [...] WHITAKER CNP On: 10/18/2015 12:09 PM Source: [facility] MHSDOLBEYNONRADSYS Document Id: [id number] STITCHING MACHINE OPERATOR documented in this encounter Miscellaneous Notes Telephone Encounter - Conversion, Historical Provider Ser - 10/13/2015 9:54 AM CST *Phone Message Document Contains Addenda Addendum by STEPHEN RUBIN LPN on 13 October 2015 11:49:49 SIDE STITCHING MACHINE OPERATOR From: STEPHEN RUBIN LPN ([facility] Medicine Nurse) To: ANETA WHITAKER CNP; Sent: 10/13/2015 11:49:49 SIDE STITCHING MACHINE OPERATOR Subject: RE: *Phone Message FYI: Patient states she got a new order for her prednisone by her coordinating producer in [place]. She states she is feeling congested on [...] this works for her. From: JEREMIAH ELLSWORTH ([facility] Production Miner) To: [facility] Nurse; Sent: 10/13/2015 09:54:00 SIDE STITCHING MACHINE OPERATOR Subject: *Phone Message Caller is: ( x) [...] not better. Should she keep taking it? [phone] Message: Advice/Action: Source used: ( ) Verbalizes [...] back cell phone number ( ) Source: [facility] PrecisionDemand Document Id: [id number] Miscellaneous - Aneta Whitaker APRN, ASSIGNMENT OFFICER - 09/27/2015 10:18 AM SIDE STITCHING MACHINE OPERATOR Lab results Document Contains Addenda Addendum by STEPHEN RUBIN LPN on 27 September 2015 14:02:41 SIDE STITCHING MACHINE OPERATOR Patient is aware and she is making an appointment at this time. From: ANETA WHITAKER CNP To: DAVID Pascual [facility] Medicine Nurse; Sent: 09/27/2015 10:18:33 SIDE STITCHING MACHINE OPERATOR Subject: Lab results If possible please have patient follow up regarding labs. Prediabetic. Thank you. Source: [facility] [employer]Dem[employer] Document Id: [id number] Electronically signed by Nikos [facility] Foreman [id number] at 03/04/2017 5:04 PM CDT Miscellavani - Stephen Rubin L.P.NAntwan - 09/20/2015 8:43 AM CST PHQ-9 PHQ-9 Entered On: 09/20/2015 8:43 SIDE STITCHING MACHINE OPERATOR Performed On: 09/20/2015 8:43 SIDE STITCHING MACHINE OPERATOR by STEPHEN RUBIN LPN PHQ-9 Little interest [...] all STEPHEN RUBIN LPN - 09/20/2015 8:43 SIDE STITCHING MACHINE OPERATOR Source: [facility] [employer] Document Id: [id number] SIDE STITCHING MACHINE OPERATOR!13 STITCHING MACHINE OPERATOR Amandacellavani - Stephen Rubin L.P.NAntwan - 09/20/2015 8:29 AM CST Adult Patent Engineer Intake/History Adult Patent Engineer Intake/History Entered On: 09/20/2015 8:33 SIDE STITCHING MACHINE OPERATOR Performed On: 09/20/2015 8:29 SIDE STITCHING MACHINE OPERATOR by STEPHEN RUBIN LPN Intake Chief Complaint [...] kg/m2 STEPHEN RUBIN LPN - 09/20/2015 8:29 SIDE STITCHING MACHINE OPERATOR General Info Information Given By : Patient Preferred Communication Mode : Verbal Languages : [place] Is Patient Female and 13-50 no hysterectomy : No STEPHEN RUBIN LPN - 09/20/2015 8:29 SIDE STITCHING MACHINE OPERATOR Subjective Pain Symptoms : Yes STEPHEN RUBIN LPN - 09/20/2015 8:29 SIDE STITCHING MACHINE OPERATOR Pain Scale Pain Scale Verbal 0-10 : Open STEPHEN RUBIN LPN - 09/20/2015 8:29 SIDE STITCHING MACHINE OPERATOR Pain Pain Assessment Grid Pain 1 Location : Wrist Laterality : Left Intensity : 7 Duration : 1 day STEPHEN RUBIN LPN - 09/20/2015 8:29 SIDE STITCHING MACHINE OPERATOR Dependent Habits Exposure to Tobacco Smoke : Other: Never Smoked Smoking Status : Never smoker Tobacco 2A : No Alcohol Use : Yes STEPHEN RUBIN LPN - 09/20/2015 8:29 SIDE STITCHING MACHINE OPERATOR Caffeine Use Grid Caffeine Use : Current Type : Soft drinks Frequency : Daily Amount : 1 can diet soda Last Use : 09/19/15 STEPHEN RUBIN LPN - 09/20/2015 8:29 SIDE STITCHING MACHINE OPERATOR Recreational Drug Use Grid Drug Use : None STEPHEN RUBIN LPN - 09/20/2015 8:29 SIDE STITCHING MACHINE OPERATOR [facility] POWERCHART Document Id: [id number] SIDE STITCHING MACHINE OPERATOR!48 STITCHING MACHINE OPERATOR Miscellaneous - Stephen Rubin L.P.NAntwan - 09/20/2015 8:29 AM CST Health Assessment Health Assessment Entered On: 09/20/2015 8:35 SIDE STITCHING MACHINE OPERATOR Performed On: 09/20/2015 8:29 SIDE STITCHING MACHINE OPERATOR by STEPHEN RUBIN LPN Health Assessment Complete Health Assessment Complete or Modified : Annual Health Assessment Annual Health Assessment Completed : Yes STEPHEN RUBIN LPN - 09/20/2015 8:29 SIDE STITCHING MACHINE OPERATOR Nutrition Nutrition Risk Factors by History Adult : None STEPHEN RUBIN LPN - 09/20/2015 8:29 SIDE STITCHING MACHINE OPERATOR Functional Current Daily Living Assistance : None Mobility Assistance Prior to Admission : Independent STEPHEN RUBIN LPN - 09/20/2015 8:29 SIDE STITCHING MACHINE OPERATOR Dependent Habits Exposure to Tobacco Smoke : Other: Never Smoked Smoking Status : Never smoker Tobacco 2A : No STEPHEN RUBIN LPN - 09/20/2015 8:29 SIDE STITCHING MACHINE OPERATOR Caffeine Use Grid Caffeine Use : Current Type : Soft drinks Frequency : Daily Amount : 1 can diet soda Last Use : 09/19/15 STEPHEN RUBIN LPN - 09/20/2015 8:29 SIDE STITCHING MACHINE OPERATOR Alcohol Use : Yes STEPHEN RUBIN LPN - 09/20/2015 8:29 SIDE STITCHING MACHINE OPERATOR Recreational Drug Use Grid Drug Use : None STEPHEN RUBIN LPN 09/20/2015 8:29 SIDE STITCHING MACHINE OPERATOR AUDIT Tool How Often Do You Have A Drink : Monthly or less How Many Drinks in a Day When Drinking : 1 or 2 Six or More Drinks On One Occassion : Never Audit Phase 1 Score : 1 STEPHEN RUBIN COOK SEAFOOD 09/20/2015 8:29 SIDE STITCHING MACHINE OPERATOR Psychosocial Domestic Abuse Concerns : None Marital Status : Behavioral Health Screen/Safety Assmt : No Education : High School Graduate [employer] Preference : STEPHEN Castellanos LPN - 09/20/2015 8:29 SIDE STITCHING MACHINE OPERATOR Advance Directive Advanced Directives : No Advance Directive Additional Information : No STEPHEN RUBIN LPN - 09/20/2015 8:29 SIDE STITCHING MACHINE OPERATOR Educ Needs Learning Style Preference Adult Grid Patient : Printed materials, Verbal explanation Family : None STEPHEN RUBIN LPN 09/20/2015 8:29 SIDE STITCHING MACHINE OPERATOR Source: [facility] POWERCHART Document Id: [id number] SIDE STITCHING MACHINE OPERATOR!42 STITCHING MACHINE OPERATOR documented in this encounter Plan of Treatment Not on filedocumented as of this encounter Procedures Procedure Name Priority Date/Time Associated Comments Diagnosis BACTERIAL CULTURE, Routine 09/20/2015 10:14 Resul ts for this AEROBIC, URINE AM SIDE STITCHING MACHINE OPERATOR procedure are in the results section. URINALYSIS, MIDSTREAM, Routine 09/20/2015 10:11 R esults for this WITH CULTURE IF AM SIDE STITCHING MACHINE OPERATOR procedure ar e in INDICATED the results section. LIPID PANEL, S Routine 09/20/2015 9:10 AM Results for this SIDE STITCHING MACHINE OPERATOR procedure are i n the results section. VITAMIN B12 AND Routine 09/20/2015 9:10 AM Result s for this FOLATE, S SIDE STITCHING MACHINE OPERATOR procedure are i n the results section. AUTOMATED Routine 09/20/2015 9:10 AM Results f or this DIFFERENTIAL, B SIDE STITCHING MACHINE OPERATOR procedure ar e in the results section. 25-HYDROXYVITAMIN D2 Routine 09/20/2015 9:10 AM R esults for this AND D3, S SIDE STITCHING MACHINE OPERATOR procedure are i n the results section. CBC WITH DIFFERENTIAL, Routine 09/20/2015 9:10 AM Results for this B SIDE STITCHING MACHINE OPERATOR procedure are i n the results section. THYROID-STIMULATING Routine 09/20/2015 9:10 AM Re sults for this HORMONE-SENSITIVE SIDE STITCHING MACHINE OPERATOR procedure are in (S-TSH) the results section. HEMOGLOBIN A1C, B Routine 09/20/2015 9:10 AM Resu lts for this SIDE STITCHING MACHINE OPERATOR procedure are i n the results section. COMPREHENSIVE Routine 09/20/2015 9:10 AM Results for this METABOLIC PANEL, S/P SIDE STITCHING MACHINE OPERATOR procedu re are in the results section. documented in this encounter Results Bacterial Culture, Aerobic, Urine (09/20/2015 10:14 AM SIDE STITCHING MACHINE OPERATOR) Analysis Performed At Patho logist Time Signature Bacterial POWERCHART Culture, Aerobic, Urine HXFinal No growth POWERCHART Specimen Anatomical Collection Method Collection Time Receive d Time (Source) Location / / Volume Laterality Urine, First 09/20/2015 10:14 09/20/2015 Voided AM SIDE STITCHING MACHINE OPERATOR 10:14 AM SIDE STITCHING MACHINE OPERATOR Aneta Whitaker APRN, C.N.P., M.S.N. LAB MICROB IOLOGY - GENERAL ORDERABLES Performing Organization Address City/State/ZIP Code Phon e Number POWERCHART (ABNORMAL) Urinalysis, Midstream, with culture if indicated (09/20/2015 10:11 AM SIDE STITCHING MACHINE OPERATOR) Patholo gist Method Time Signature Clarity Clear POWERCHART HXUr Color Yellow POWERCHART Specific 1.015 POWERCHART [place], POCT, U pH, POCT, Urine 7.0 POWERCHART [...] Laterality Urine, First 09/20/2015 10:11 Voided AM SIDE STITCHING MACHINE OPERATOR Aneta Whitaker APRN C.N.P., M.S.N. LAB URINE ORDERABLES Performing Organization Address City/State/[facility] Code Phon e Number POWERCHART Automated Differential (09/20/2015 9:10 AM SIDE STITCHING MACHINE OPERATOR) athologist Signature Absolute 3.76 1.70 - POWERCHART Neutrophils 7.00 109L Lymphocytes 1.82 0.90 - POWERCHART 2.90 X109L Monocytes 0.47 0.30 - POWERCHART 0.90 X109L Eosinophils 0.16 0.05 - POWERCHART 0.50 X109L Absolute 0.02 0.00 - POWERCHART Basophil 0.30 X109L Specimen Anatomical Collection Method Collection Time Receive d Time (Source) Location / / Volume Laterality Blood 09/20/2015 9:10 AM 5 9:10 SIDE STITCHING MACHINE OPERATOR AM SIDE STITCHING MACHINE OPERATOR Aneta Whitaker APRN, C.N.P., M.S.N. LAB BLOOD ADD-ON Performing Organization Address City/State/ZIP Code Phon e Number POWERCHART CBC with Differential (09/20/2015 9:10 AM SIDE STITCHING MACHINE OPERATOR) athologist Signature Leukocytes 6.2 3.4 - 10.5 POWERCHART X109L Erythrocytes 4.50 3.90 - 5.03 POWERCHART Q2193S Hemoglobin 12.4 12.0 - 15.5 POWERCHART GDL Hematocrit 39.4 34.9 - 44.5 POWERCHART MCV 87.6 82.0 - 98.0 POWERCHART FL HX RDW 14.8 11.9 - 15.5 POWERCHART Platelet Count 315 150 - 450 POWERCHART X109L Specimen (Source) Anatomical Collection Method Collection Time Re ceived Time Location / / Volume Laterality Blood 09/20/2015 9:10 AM SIDE STITCHING MACHINE OPERATOR Aneta Whitaker APRN, C.N.P., M.S.N. LAB BLOOD ADD-ON Performing Organization Address City/State/ZIP Code Phon e Number POWERCHART 25-Hydroxyvitamin D2 and D3 (09/20/2015 9:10 AM SIDE STITCHING MACHINE OPERATOR) athologist Signature HX25 HYDROXY D2 <4.0 NGML POWERCHART 25-Hydroxy D3 30 NGML POWERCHART Vitamin D, S 30 NGML POWERCHART Comment: REFERENCE VALUE------ 25-HYDROXY D TOTAL (D2+D3) Optimum level s in the healthy population are 20-50, patients with bone disease may benefit from higher levels within this r anh. Test Performed by: [place] [address] High Lift Mule Operator: Hermes Lees II, M.D., Ph.D. Specimen (Source) Anatomical Collection Method Collection Time Re ceived Time Location / / Volume Laterality Blood 09/20/2015 9:10 AM SIDE STITCHING MACHINE OPERATOR Victor Hugo Renteria APRNN.Lizabeth, M.S.N. LAB BLOOD ADD-ON Performing Organization Address City/State/ZIP Code Phon e Number POWERCHART Vitamin B12 Level and Folate (09/20/2015 9:10 AM SIDE STITCHING MACHINE OPERATOR) athologist Signature Vitamin B12 245 180 - 914 POWERCHART Assay, S NGL Folate, S 10.9 >=4.0 NGML POWERCHART Specimen (Source) Anatomical Collection Method Collection Time Re ceived Time Location / / Volume Laterality Blood 09/20/2015 9:10 AM SIDE STITCHING MACHINE OPERATOR Victor Hugo Renteria APRNN.P., M.S.N. LAB BLOOD NON ADD-ON Performing Organization Address City/State/ZIP Code Phon e Number POWERCHART (ABNORMAL) Lipid Panel (09/20/2015 9:10 AM SIDE STITCHING MACHINE OPERATOR) P athologist Signature Calculated LDL 96 <=129 [...] for FH and FDB is available maxim [facility]: FH/ADH Genetic Reflex [place] (test ADHP). Acquired (non-genetic) causes of markedly increased LDL cholesterol include cholestatic liver disease due to the presence of LpX. If a genetic form of hypercholesterolemia is suspected, family studies including biochemical testing fo r lipids (total cholesterol,triglycerides, LDL cholesterol and HDL cholesterol) are recommended. ??Please contact the laboratory at or the on-line test catalog at [employer] for information about how to order these [...] HDL 41 (L) >=50 MGDL POWERCHART Comment: 2013 National [...] / Volume Laterality Blood 09/20/2015 9:10 AM SIDE STITCHING MACHINE OPERATOR Abelardo Renteria APRN.N.P., M.S.N. LAB BLOOD ADD-ON Performing Organization Address City/State/ZIP Code Phon e Number POWERCHART Thyroid-Stimulating Hormone-Sensitive (s-TSH) (09/20/2015 9:10 AM SIDE STITCHING MACHINE OPERATOR) P athologist Signature TSH 2.68 0.27 - 4.20 POWERCHART (Thyrotropin) MIUL Specimen (Source) Anatomical Collection Method Collection Time Re ceived Time Location / / Volume Laterality Blood 09/20/2015 9:10 AM SIDE STITCHING MACHINE OPERATOR Aneta Whitaker APRN C.N.P., M.S.N. LAB BLOOD ADD-ON Performing Organization Address City/State/ZIP Code Phon e Number POWERCHART (ABNORMAL) Hemoglobin A1c (09/20/2015 9:10 AM SIDE STITCHING MACHINE OPERATOR) P athologist Signature Hemoglobin A1c, 6.1 (H) <=5.6 A1C POWERCHART B Specimen (Source) Anatomical Collection Method Collection Time Re ceived Time Location / / Volume Laterality Blood 09/20/2015 9:10 AM SIDE STITCHING MACHINE OPERATOR Aneta Whitaker APRN, C.N.P., M.S.N. LAB BLOOD ADD-ON Performing Organization Address City/State/ZIP Code Phon e Number POWERCHART (ABNORMAL) CMP (Comprehensive Metabolic Panel) (09/20/2015 9:10 AM SIDE STITCHING MACHINE OPERATOR) [facility] gist Method Time Signature Anion Gap 9 [...] POWERCHART GDL HXeGFR (MDRD) >60 >=60 POWERCHART [id number] 2 eGFR Black/ >60 >=60 POWERCHART [place] [id number] 2 Specimen (Source) Anatomical Collection Method Collection Time Re ceived Time Location / / Volume Laterality Blood 09/20/2015 9:10 AM SIDE STITCHING MACHINE OPERATOR Aneta Whitaker APRN, C.N.P., M.S.N. LAB BLOOD ADD-ON Performing Organization Address City/State/ZIP Code Phon e Number POWERCHART documented in this encounter Visit Diagnoses Not on filedocumented in this encounter Additional Health Concerns Assessment Noted Time PHQ-9 Depression Total Score: 1 09/20/2015 8:43 AM SIDE STITCHING MACHINE OPERATOR documented as of this encounter
--- OUTSIDE RECORDS SUMMARY | 2022-07-24 10:09 | XMS_ITS | Encounter Summary ---
:1940 Author Organization [facility] Address [address] [place] [address] Care Team Providers Name Role Phone Unavailable Primary Care Provider Unavailable Encounter Details Date Type Department Care Team Description 06/10/2015 Hospital Encounter HX [facility] PRA [place] Hay P.A.-Abelardo., P.A. One [facility] [place] [address] Social History Tobacco Use Types Packs/Day Years [...] Body Mass Index 36.65 10/15/2014 11:45 AM CONVEX GRINDER documented in this encounter Medications at Time [...] P.A.-C., P.A. - 06/10/2015 10:12 AM CDT [id number] CHIEF COMPLAINT/REASON FOR VISIT Asthma and allergies [...] does have an appointment to see her [facility] seamless tube roller June 30. She is wondering about a [...] today which will be administered. MEDICATIONS Reviewed [facility] EMR dated 06/10/2015 and no changes. ALLERGIES Reviewed [facility] EMR dated 06/10/2015 and no changes. SYSTEMS REVIEW Complete review of systems is performed and is otherwise negative except as noted above. PHYSICAL EXAMINATION VITAL SIGNS: Reviewed [facility] EMR dated 06/10/2015 and no changes. GENERAL: [...] She does have appointment to see her seamless tube roller later this month. Symptoms to warrant more urgent evaluation were discussed. PCV-13 was administered today. Catia Hay P.A.-C./tello Electronically Signed By: CATIA HAY PA-C On: 06/10/2015 02:23 PM Source: [facility] MHSDOLBEYNONRADSYS Document Id: [id number] documented in this encounter Miscellaneous Notes Telephone Encounter - Conversion, Historical Provider Ser - 06/30/2015 10:24 AM CDT *Phone Message Document Contains Addenda Addendum by STEPHEN RUBIN LPN on 30 June 2015 16:22:14 CDT noted, thank you Hazel. Addendum by HAZEL ELLSWORTH on 30 June 2015 15:31:20 CDT From: HAZEL ELLSWORTH (DAVID Pascual Director Of Financial Planning) To: DAVID Pascual Family Medicine Nurse; Sent: 06/30/2015 15:31:20 CDT Subject: FW: *Phone Message Addendum by HAZEL ELLSWORTH on 30 June 2015 15:31:09 CDT Patient is scheduled for 7:45 am on 07/01 Addendum by STEPHEN RUBIN LPN on 30 June 2015 13:07:48 CDT From: STEPHEN RUBIN LPN ([facility]) To: DAVID Pascual Director Of Financial Planning; Sent: 06/30/2015 13:07:48 CDT Subject: FW: *Phone Message left patient a message. Could you please call patient back and schedule and appointment for her 07/01/15 with Aneta, or let her know she can go to express care if interested? Thank you. Addendum by APOLONIA PÉREZ PA-C on 30 June 2015 12:03:32 CDT From: APOLONIA PÉREZ PA-C To: DAVID Pascual Family Medicine Nurse; Sent: 06/30/2015 12:03:32 CDT Subject: RE: *Phone Message come in tomorrow am Addendum by STEPHEN RUBIN LPN on 30 June 2015 11:48:51 CDT From: STEPHEN RUBIN LPN ([facility] Nurse) To: APOLONIA PÉREZ PA-C; Sent: 06/30/2015 11:48:51 CDT Subject: FW: *Phone Message From: QUIANA FLORES ([facility] 60 Director Of Financial Planning) To: [facility] Nurse; Sent: 06/30/2015 10:24:34 CDT Subject: *Phone [...] Line. A: please call her back R: [phone] Advice/Action: Source used: ( ) Verbalizes understanding [...] back cell phone number ( ) [facility] Document Id: [id number] Miscellaneous - Catia Hay P.A.-C., P.A. - 06/10/2015 12:08 PM CDT Ambulatory Patient Summary [address] [id number] Visit Information Name: AINSLEY AGUAYO [facility] Number: [phone] Current Date: 06/10/2015 12:08:29 Physicians [...] nasal (Flonase 0.05 mg/inh nasal spray) 1 Inola(s), Nostrils(Both), once a day fluticasone-salmeterol (Advair Diskus 250 mcg-50 mcg inhalation powder) 1 puff(s), Inhalation, two times a day New Routed to [address] [id number] hydrochlorothiazide (hydrochlorothiazide 25 mg oral tablet) 1 [...] for 4 days then stop Routed to [address] [id number] triamcinolone topical (triamcinolone 0.1% topical cream) See [...] if you dont have one. Go to [email or web address] and click on Create Your Account. Then, follow the directions to complete the online form. Youll be asked for your [facility] number which you can find at the top of this document. Your Goals/Additional instructions: Source: [facility] POWERCHART Document Id: [id number] Miscellaneous - Catia Hay P.A.-C., P.A. - 06/10/2015 12:08 PM CDT Ambulatory Discharge Medication List [address] [id number] Visit Information Name: DEDE JOSI [facility] Number: [phone] Visit Date: 06/10/2015 12:08:27 Attending [...] nasal (Flonase 0.05 mg/inh nasal spray) 1 Inola(s), Nostrils(Both), once a day fluticasone-salmeterol (Advair Diskus 250 mcg-50 mcg inhalation powder) 1 puff(s), Inhalation, two times a day New Routed to [address] [id number] hydrochlorothiazide (hydrochlorothiazide 25 mg oral tablet) 1 [...] for 4 days then stop Routed to [address] [id number] triamcinolone topical (triamcinolone 0.1% topical cream) See [...] PA-C Signed On:10-JUN-2015 12:08:11 Additional Information: Source: [facility] POWERCHART Document Id: [id number] Miscellaneous - Stephen Rubin L.P.N. - 06/10/2015 10:24 AM CDT Adult Chargeback Specialist Intake/History Adult Chargeback Specialist Intake/History Entered On: 06/10/2015 10:34 CDT Performed [...] 06/10/2015 10:24 CDT Subjective Pain Symptoms : STEPHEN Gautam LPN - 06/10/2015 10:24 CDT Dependent Habits [...] RUBIN LPN - 06/10/2015 10:24 CDT Source: [facility] POWERCHART Document Id: [id number] CDT!41 documented in this encounter Plan of Treatment Not on filedocumented as of this encounter Visit Diagnoses Not on filedocumented in this encounter Additional Health Concerns Assessment Noted Time PHQ-9 Depression Total Score: 1 09/16/2014 9:15 AM CONVEX GRINDER documented as of this encounter
--- OUTSIDE RECORDS SUMMARY | 2022-07-24 10:09 | XMS_ITS | Encounter Summary ---
:1940 Author Organization [facility] Address [address] [place] [address] Care Team Providers Name Role Phone Unavailable Primary Care Provider Unavailable Encounter Details Date Type Department Care Team Description 07/05/2014 Hospital Encounter HX [facility] FAMILYPRA Naomi Parker, MISA, C.N.P., D. N.P. [address] [place], [place] [address] (Wo rk) Social History [...] Body Mass Index 35.2 09/25/2013 8:26 AM SEGREGATOR documented in this encounter Medications at Time [...] SKINNER CNP On: 08/29/2014 10:37 AM Source: [facility] MHSDOLBEYNONRADSYS Document Id: [id number] EGATOR documented in this encounter Miscellaneous Notes Telephone Encounter - Conversion, Historical Provider Ser - 09/07/2014 10:27 AM CST *Phone Message Document Contains Addenda Addendum by JEREMIAH ELLSWORTH on 07 September 2014 14:00:49 SEGREGATOR From: JEREMIAH ELLSWORTH ([facility] Electric Blanket Packer) To: [facility] Family Medicine Nurse; Sent: 09/07/2014 14:00:49 SEGREGATOR Subject: RE: *Phone Message scheduled Addendum by JOSHUA RUBIN LPN on 07 September 2014 12:01:39 SEGREGATOR From: JOSHUA RUBIN LPN ([facility] Family Medicine Nurse) To: [facility] Electric Blanket Packer; Sent: 09/07/2014 12:01:39 SEGREGATOR Subject: FW: *Phone Message Addendum by ELIZABETH SKINNER CNP on 07 September 2014 11:36:25 SEGREGATOR From: ELIZABETH SKINNER CNP To: [facility] Family Medicine Nurse; Sent: 09/07/2014 11:36:25 SEGREGATOR Subject: RE: *Phone Message labs ordered based on last year if new concerns no gurantee additional labs may not be needed. BMP, TSH, Lipid panel, and AST From: JEREMIAH ELLSWORTH (DAVID Pascual Electric Blanket Packer) To: ELIZABETH SKINNER CNP; Sent: 09/07/2014 10:27:03 SEGREGATOR Subject: *Phone Message Caller is: ( x [...] back cell phone number ( ) Source: [facility] POWERCHART Document Id: [id number] Miscellaneous - Joshua Rubin, L.P.N. - 07/05/2014 1:38 PM CDT Adult Cotton Inspector Intake/History Adult Cotton Inspector Intake/History Entered On: 07/05/2014 13:40 CDT Performed On: 07/05/2014 13:38 CDT by JOSHUA RUBIN LPN Intake Chief Complaint : left knee pain [...] RUBIN LPN - 07/05/2014 13:38 CDT [facility] Document Id: [id number] CDT!45 documented in this encounter Plan of Treatment Not on filedocumented as of this encounter Visit Diagnoses Not on filedocumented in this encounter
--- OUTSIDE RECORDS SUMMARY | 2022-07-24 10:09 | XMS_ITS | Encounter Summary ---
:[address] [facility] Address [address] [place] [address] Care Team Providers Name Role Phone Unavailable Primary Care Provider Unavailable Encounter Details Date Type Department Care Team Description 11/18/2014 Hospital Encounter HX [facility] FBHB FAMILYPRA Anabella Apodaca i, M.D. [address] [place] [address] (Wo rk) Social History Tobacco [...] Comments Blood Pressure 132/74 11/18/2014 1:47 PM GUEST SERVICES MANAGER Pulse 76 11/18/2014 1:47 PM GUEST SERVICES MANAGER Temperature - - Respiratory Rate 12 11/18/2014 1:47 PM GUEST SERVICES MANAGER Oxygen Saturation - - Inhaled Oxygen Concentration - - Weight 93 kg (205 lb 0.4 oz) 11/18/2014 1:47 PM GUEST SERVICES MANAGER Height - - Body Mass Index 35.88 10/15/2014 11:45 AM GUEST SERVICES MANAGER documented in this encounter Medications at Time [...] documented as of this encounter Progress Notes Anabella Lopez M.D. - 11/18/2014 1:32 PM CST [id number] CHIEF COMPLAINT/ REASON FOR VISIT Possible UTI. HISTORY OF PRESENT ILLNESS Elise is a 74 year old female who presents to the clinic today for possible UTI. When Elise woke up this morning she experienced burning when she urinated and her back has been sore. She had had a left total knee arthroplasty on 2014 and she wants to clarify her pain medicationschedule. Elise also needs her Oakman refilled. Elise has been constipated since her surgery. She has been taking over the counter Senna. The patientdenies any additional questions or concerns at this time. MEDICATIONS Post-visit Medication Reconciliation Reviewed and are as outlined in the EMR includin. Levaquin 250 mg, 1 tablet, PO, daily for 7 days, prescribed today. 2. Oakman 5mg-325mg, 1 tablet, PO, q6hr, for pain, [...] about pain medications are answered prescription for Oakman is renewed. 3. Constipation. She will continue to use a stool softener only on a daily basis and use the Senna product for acute needs. 4. Follow up: The patient will contact the clinic with any new or worsening symptoms. This document serves as a record of services personally performed by Anabella Dorman MD. It was created on their behalf by Leila Alexandra, a trained medical attendant. The creation of this record is based on the scribe's personal observations and the provider's statements to them. This document has been denise cked and approved by the attending provider. Anabella Mratin M.D./sp Electronically Signed By: ANABELLA LOPEZ MD On: 11/21/2014 07:46 PM Source: [facility] MHSDOLBEYNONRADSYS Document Id: [id number] T SERVICES MANAGER documented in this encounter Miscellaneous Notes Miscellaneous - Anabella Lopez M.D. - 11/18/2014 11:30 PM GUEST SERVICES MANAGER Ambulatory Patient Summary [address] [id number] Visit Information Name: ELISE AGUAYO [facility] Number: [id number] Current Date: 11/18/2014 23:30:21 Physicians Attending Provider: ANABELLA LOPEZ MD Primary Care Provider: ANABELLA LOPEZ MD ELISE AGUAYO has been given the following list [...] nasal (Flonase 0.05 mg/inh nasal spray) 1 Primghar(s), Nostrils(Both), once a day hydrochlorothiazide (hydrochlorothiazide 25 mg oral tablet) 1 Tablet(s), Oral, once a day HYDROcodone-acetaminophen (Oakman 5 mg-325 mg oral tablet) 1 Tablet(s), Oral, every 6 hours New Routed to [facility] levofloxacin (Levaquin 250 mg oral tablet) 1 Tablet(s), Oral, once a day x 7 day(s) New Routed to [facility] [address] [place], [place] [id number] levothyroxine (Synthroid 75 mcg (0.075 mg) oral [...] in case of emergency. Electronically Signed By: ANABELLA LOPEZ MD Signed On:18-NOV-2014 23:30:06 Your Allergies [...] Appointments Date Time Location Provider 11/26/2014 11:00 [facility] Anabella Dorman MD Attention: Contact your local Clinic if further appointment detail needed. Your Goals/Additional instructions: Source: [facility] POWERCHART Document Id: [id number] T SERVICES MANAGER Miscellaneous - Anabella Lopez M.D. - 11/18/2014 11:30 PM GUEST SERVICES MANAGER Ambulatory Discharge Medication List [address] [id number] Visit Information Name: ELISE AGUAYOBETH [facility] Number: [id number] Visit Date: 11/18/2014 23:30:20 Attending Provider: ANABELLA LOPEZ MD Primary Care Provider: ANABELLA LOPEZ MD ELISE AGUAYOZABETH has been given the following list [...] nasal (Flonase 0.05 mg/inh nasal spray) 1 Primghar(s), Nostrils(Both), once a day hydrochlorothiazide (hydrochlorothiazide 25 mg oral tablet) 1 Tablet(s), Oral, once a day HYDROcodone-acetaminophen (Oakman 5 mg-325 mg oral tablet) 1 Tablet(s), Oral, every 6 hours New Routed to [facility] levofloxacin (Levaquin 250 mg oral tablet) 1 Tablet(s), Oral, once a day x 7 day(s) New Routed to [address] [id number] levothyroxine (Synthroid 75 mcg (0.075 mg) oral [...] in case of emergency. Electronically Signed By: ANABELLA LOPEZ MD Signed On:18-NOV-2014 23:30:06 Additional Information: Source: [facility] POWERCHART Document Id: [id number] T SERVICES MANAGER Miscellaneous - Cristina Lutz LAntwanPAntwanNAntwan - 11/18/2014 1:47 PM CST Adult Skating Carhop Intake/History Adult Skating Carhop Intake/History Entered On: 11/18/2014 13:50 GUEST SERVICES MANAGER Performed On: 11/18/2014 13:47 GUEST SERVICES MANAGER by CRISTINA LUTZ LPN Intake Chief Complaint : ?UTI [...] scale Dosing Weight Clinic : 93 kg CRISTINA LUTZ LPN - 11/18/2014 13:47 GUEST SERVICES MANAGER General Info Information Given By : Patient Languages : Luxembourger Is Patient Female and 13-50 no hysterectomy : No CRISTINA LUTZ LPN - 11/18/2014 13:47 GUEST SERVICES MANAGER Subjective Pain Symptoms : Yes CRITSINA LUTZ LPN - 11/18/2014 13:47 GUEST SERVICES MANAGER Dependent Habits Tobacco Use/Currently Using : No Exposure to Tobacco Smoke : Other: Never Smoked Smoking Status : Never smoker CRISTINA LUTZ LPN - 11/18/2014 13:47 GUEST SERVICES MANAGER Caffeine Use Grid Caffeine Use : Current Type : Soft drinks Frequency : Daily Amount : 1 can diet soda Last Use : 09/15/14 CRISTINA LUTZ LPN - 11/18/2014 13:47 GUEST SERVICES MANAGER Recreational Drug Use Grid Drug Use : None CRISTINA LUTZ LPN - 11/18/2014 13:47 GUEST SERVICES MANAGER ID Screen Drug Resistant Organism : No Travel Within Last 21 Days : No CRISTINA LUTZ LPN - 11/18/2014 13:47 GUEST SERVICES MANAGER Source: [facility] POWERCHART Document Id: [id number] GUEST SERVICES MANAGER!38 T SERVICES MANAGER documented in this encounter Plan of Treatment Not on filedocumented as of this encounter Procedures Procedure Name Priority Date/Time Associated Comments Diagnosis BACTERIAL CULTURE, Routine 11/18/2014 1:45 PM Res ults for this AEROBIC, URINE GUEST SERVICES MANAGER procedure are in the results section. HXUR % DYSMORPHIC RBC Routine 11/18/2014 1:44 PM Results for this GUEST SERVICES MANAGER procedure are i n the results section. URINALYSIS WITH Routine 11/18/2014 1:44 PM Result s for this MICROSCOPIC GUEST SERVICES MANAGER procedure are i n the results section. documented in this encounter Results Bacterial Culture, Aerobic, Urine (11/18/2014 1:45 PM GUEST SERVICES MANAGER) [facility] Method Time Signature Bacterial POWERCHART Culture, Aerobic, Urine HXFinal Mixed eros. No POWERCHART further studies unless notified. HXFinal [place] POWERCHART Microbiology laboratory [phone] Specimen (Source) Anatomical Collection Method Collection Time Re ceived Time Location / / Volume Laterality Urine, First 11/18/2014 1:45 PM Voided GUEST SERVICES MANAGER Anabella Root M.D. LAB MICROBIOLOGY - GEN ERAL ORDERABLES Performing Organization Address City/[facility]/ZIP Code Phon e Number POWERCHART HXUR % DYSMORPHIC RBC (11/18/2014 1:44 PM GUEST SERVICES MANAGER) athologist Signature Dysmorphic RBC <=25 <=25 POWERCHART Specimen Anatomical Collection Method Collection Time Receive d Time (Source) Location / / Volume Laterality Urine, First 11/18/2014 1:44 PM 5 1:44 Voided GUEST SERVICES MANAGER PM GUEST SERVICES MANAGER Anabella Root M.D. LAB HISTORICAL ORDERS Performing Organization Address City/State/ZIP Code Phon e Number POWERCHART (ABNORMAL) Urinalysis, Complete, Includes Microscopic (11/18/2014 1:44 PM GUEST SERVICES MANAGER) [facility] Method Time Signature Protein, Ur, Trace Negative POWERCHART Dip MGDL HXUr Color Yellow Colorless POWERCHART Glucose Negative Negative POWERCHART MGDL HXBILIRUBIN Negative Negative POWERCHART Ketones, QL(U) Negative Negative POWERCHART MGDL Specific 1.020 POWERCHART Glynn, POCT, U Clarity Cloudy (A) Clear POWERCHART [...] Laterality Urine, First 11/18/2014 1:44 PM Voided GUEST SERVICES MANAGER Anabella Root M.D. LAB URINE ORDERABLES Performing Organization Address City/State/ZIP Code Phon e Number POWERCHART documented in this encounter Visit Diagnoses Not on filedocumented in this encounter Additional Health Concerns Assessment Noted Time PHQ-9 Depression Total Score: 1 09/16/2014 9:15 AM GUEST SERVICES MANAGER documented as of this encounter
--- OUTSIDE RECORDS SUMMARY | 2022-07-24 10:09 | XMS_ITS | Encounter Summary ---
:1940 Author Organization [facility] Address [address] [place] [address] Care Team Providers Name Role Phone Unavailable Primary Care Provider Unavailable Encounter Details Date Type Department Care Team Description 03/13/2016 Hospital Encounter HX [facility] FBKF LAB Whitaker, Cecily Rodriguez APRN, C.N.P., M. S.N. [address] [place], [place] [phone] (Wo rk) Social History [...] 11:47:45 CDT From: JEREMIAH ELLSWORTH (DAVID Pascual Chief Operator Lock Tender) To: DELBERT WHITAKER CNP; Sent: 08/10/2016 11:47:45 CDT Subject: RE: *Phone Message Addendum by JEREMIAH ELLSWORTH on August 10, 2016 11:47:41 CDT Pt notified and will call back to schedule. Addendum by JEREMIAH ELLSWORTH on August 10, 2016 11:46:03 CDT thank you. will notify patient. Addendum by DELBERT WHITAKER CNP on August 10, 2016 07:37:49 CDT From: DELBERT WHITAKER CNP To: DAVID Pascual Chief Operator Lock Tender; Sent: 08/10/2016 07:37:49 CDT Subject: RE: *Phone Message Done From: JEREMIAH ELLSWORTH (DAVID Pascual Chief Operator Lock Tender) To: DELBERT WHITAKER CNP; Sent: 08/09/2016 13:28:27 [...] the patient. Patient can be reached at [phone] Message: Advice/Action: Source used: ( ) Verbalizes [...] cell phone number ( ) [facility] Document Id: [id number] documented in this encounter Plan of Treatment [...] esting [facility] FH and FDB [facility]: FH/ADH Genetic Reflex [place] (test ADHP). Acquired (non-genetic) causes of markedly increased LDL cholesterol include cholestatic liver disease due to the presence of LpX. If a genetic form of hypercholesterolemia is suspected, family studies including biochemical testing fo r lipids (total cholesterol,triglycerides, LDL cholesterol and HDL cholesterol) are recommended. ??Please contact the laboratory at or the on-line test catalog at [employer] for information about how to order these [...] within this r anh. Test Performed by: [address] [address] Garment Liner: Hermes Lees II, M.D., Ph.D. Specimen (Source) Anatomical Collection Method Collection Time Re ceived Time Location / / Volume Laterality Blood 03/13/2016 8:39 AM CDT Victor Hugo Renteria APRNNAvtar, M.S.N. LAB BLOOD ADD-ON Performing Organization Address City/State/ZIP Code Phon e Number POWERCHART (ABNORMAL) Hemoglobin A1c (03/13/2016 8:39 AM CDT) P athologist Signature Hemoglobin A1c, 6.2 (H) <=5.6 A1C POWERCHART B Specimen (Source) Anatomical Collection Method Collection Time Re ceived Time Location / / Volume Laterality Blood 03/13/2016 8:39 AM CDT Victor Hugo Renteria APRNNAvtar, M.S.N. LAB BLOOD ADD-ON Performing Organization Address City/State/ZIP Code Phon e Number POWERCHART documented in this encounter Visit Diagnoses Not on filedocumented in this encounter
--- OUTSIDE RECORDS SUMMARY | 2022-07-24 10:09 | XMS_ITS | Encounter Summary ---
:1940 Author Organization [facility] Address [address] [place] [address] Care Team Providers Name Role Phone Unavailable Primary Care Provider Unavailable Encounter Details Date Type Department Care Team Description 11/18/2014 Hospital Encounter HX NO MAPPING Anabella Root M.D. [address] [place], [place] [phone] (Wo rk) Social History [...] Historical Provider Ser - 11/18/2014 11:59 PM DENTAL PRACTICE MANAGER Coding Summary-Paper Based CODING DATE: 11/25/2014 FINAL [facility] STATUS: * Discharged to Home or Self [...] WHITMORE Date Saved: 11/25/2014 07:58 pm Source: [email or web address] POWERCHART Document Id: [id number] documented in this encounter Plan of Treatment Not on filedocumented as of this encounter Visit Diagnoses Not on filedocumented in this encounter Additional Health Concerns Assessment Noted Time PHQ-9 Depression Total Score: 1 09/16/2014 9:15 AM DENTAL PRACTICE MANAGER documented as of this encounter
--- OUTSIDE RECORDS SUMMARY | 2022-07-24 10:09 | XMS_ITS | Encounter Summary ---
:1940 Author Organization [facility] Address [address] [place] [address] Care Team Providers Name Role Phone Unavailable Primary Care Provider Unavailable Encounter Details Date Type Department Care Team Description 09/14/2014 Hospital Encounter HX [facility] FBKF Catia Rios P.A.-C., P.A. [address] [facility] [place] [address] Social History Tobacco Use Types [...] 09/14/2014 8:34 Results fo r this AM ORACLE DISTRIBUTION CONSULTANT procedure are i n the results section. ASPARTATE Routine 09/14/2014 8:34 Results for this AMINOTRANSFERASE (AST), AM ORACLE DISTRIBUTION CONSULTANT proc edure are in S/P the results section. THYROID-STIMULATING Routine 09/14/2014 8:34 Resul ts for this HORMONE-SENSITIVE AM ORACLE DISTRIBUTION CONSULTANT procedure are in (S-TSH) the results section. BASIC METABOLIC PANEL, Routine 09/14/2014 8:34 Re sults for this S/P AM ORACLE DISTRIBUTION CONSULTANT procedure are i n the results section. documented in this encounter Results (ABNORMAL) BMP (Basic Metabolic Panel) (09/14/2014 8:34 AM ORACLE DISTRIBUTION CONSULTANT) P athologist Signature BUN (Blood Urea 18 [...] MLMIN POWERCHART eGFR >60 >=60 POWERCHART Black/ [id number] Congolese Glucose, 105 (H) 70 - 99 POWERCHART Fasting, S MGDL Specimen (Source) Anatomical Collection Method Collection Time Re ceived Time Location / / Volume Laterality Blood 09/14/2014 8:34 AM ORACLE DISTRIBUTION CONSULTANT Igor Horn P.A.-C. LAB BLOOD ADD-ON Performing Organization Address City/State/ZIP Code Phon e Number POWERCHART Thyroid-Stimulating Hormone-Sensitive (s-TSH) (09/14/2014 8:34 AM ORACLE DISTRIBUTION CONSULTANT) P athologist Signature TSH 1.73 0.27 - 4.20 POWERCHART (Thyrotropin) MIUL Specimen (Source) Anatomical Collection Method Collection Time Re ceived Time Location / / Volume Laterality Blood 09/14/2014 8:34 AM ORACLE DISTRIBUTION CONSULTANT Igor Horn P.A.-C. LAB BLOOD ADD-ON Performing Organization Address City/[facility]/ZIP Code Phon e Number POWERCHART AST (Aspartate Aminotransferase) (09/14/2014 8:34 AM ORACLE DISTRIBUTION CONSULTANT) Patholo gist Method Time Signature Aspartate 21 8 - 43 POWERCHART Aminotransferase UNITL (AST), S Specimen (Source) Anatomical Collection Method Collection Time Re ceived Time Location / / Volume Laterality Blood 09/14/2014 8:34 AM ORACLE DISTRIBUTION CONSULTANT Igor Horn P.A.-C. LAB BLOOD ADD-ON Performing Organization Address City/State/ZIP Code Phon e Number POWERCHART Lipid Panel (09/14/2014 8:34 AM ORACLE DISTRIBUTION CONSULTANT) Analysis Performed At Patho logist Time Signature Cholesterol, Total 157 0 - 200 POWERCHART MGDL HX HDL 45.0 40.0 - POWERCHART 60.0 MGDL Triglycerides 125 0 - 150 POWERCHART MGDL Calculated LDL 87 0 - 100 POWERCHART MGDL Total 3 POWERCHART Cholesterol/HDL Ratio Specimen (Source) Anatomical Collection Method Collection Time Re ceived Time Location / / Volume Laterality Blood 09/14/2014 8:34 AM ORACLE DISTRIBUTION CONSULTANT Igor Horn P.A.-C. LAB BLOOD ADD-ON Performing Organization Address City/State/ZIP Code Phon e Number POWERCHART documented in this encounter Visit Diagnoses Not on filedocumented in this encounter
--- OUTSIDE RECORDS SUMMARY | 2022-07-24 10:09 | XMS_ITS | Encounter Summary ---
:1940 Author Organization [facility] Address [address] [place] [address] Care Team Providers Name Role Phone Unavailable Primary Care Provider Unavailable Encounter Details Date Type Department Care Team Description 10/18/2015 Hospital Encounter HX [facility] FAMILYPRA Delbert Whitaker APRN C.N.P., M.S.N. [address] [place] [address] (Wo rk) Social History Tobacco Use Types [...] Comments Blood Pressure 134/74 10/18/2015 9:45 AM [facility] Pulse 81 10/18/2015 9:45 AM [facility]ST OR[facility] Temperature - - Respiratory Rate 16 10/18/2015 9:45 AM [facility]ATRI[facility] OR[facility] Oxygen Saturation - - Inhaled Oxygen Concentration - - Weight 97.5 kg (214 lb 15.2 oz) 10/18/2015 9:45 AM [facility] Height - - Body Mass Index 37.24 09/20/2015 8:29 AM [facility] documented in this encounter Medications at Time [...] this encounter Progress Notes Delbert Whitaker, MISA, CONSTRUCTION ACCOUNTANT - 10/18/2015 9:26 AM CST [id number] CHIEF COMPLAINT/REASON FOR VISIT Follow up on labs. HISTORY OF PRESENT ILLNESS A very pleasant 74-year-old female presents for followup on lab work. Patient, on 09/20, had annual lab work collected for review. The patient does have history of asthma. Said she has been having someasthma related issues, chest congestion and head cold, and states that she does see [facility] for her asthma and allergy and has [...] understanding. Will be attending [facility] [employer] session [facility]. States she knows she needs to lose weight and will help all of her issues, her high cholesterol and will help with potential for diabetes and her knee pain. 2. Hyperthyroidism. TSH within normal limits. Will check lab values again in March. Patient going to [place] for a few months next month. 3. [...] Patient verbalized good understanding of these instructions. Kendall DiazPNicho./tello Electronically Signed By: DELBERT WHITAKER CNP On: 10/19/2015 07:45 AM Modified by and Electronically Signed by: DELBERT WHITAKER CNP On: 10/19/2015 07:45 AM Source: [facility] MHSDOLBEYNKRYSTASYS Document Id: [id number] [facility] documented in this encounter Nursing Notes Joshua Rubin L.P.N. - 12/05/2015 4:13 PM CST Prior authorization request pravastatin Document Contains Addenda Addendum by JOSHUA RUBNI LPN on December 12, 2015 10:14 [facility] Prior authorization approved. from 10/07/2015 through 12/06/2016. Will alert pharmacy. Modified by and Electronically Signed by: JOSHUA RUBIN LPN On: 12/12/2015 10:14 AM Prior authorization request for Pravastatin completed through Cover [employer] Meds,[place] [id number]. Time spent on form 20 minutes. Electronically Signed By: JOSHUA RUBIN LPN On: 12/05/2015 04:14 PM Source: [employer] Document Id: [id number] [facility] documented in this encounter Miscellaneous Notes Miscellaneous - Conversion, Historical Provider Ser - 03/12/2016 9:13 AM CDT [facility] March 12, 2016 [facility] 1940 MR# [id number] Date of Visit 10/18/2015 [facility] - Dr. Elaizar Elizalde, To Whom it May Concern, This patient is being referred for continuing care at your facility. Following your evaluation(s), Iwould appreciate hearing: Your findings and recommendations Notification regarding any medication changes Copies of lab radiology and other reports Please see included pertinent records. Thank you for your assistance with the evaluation and treatment of this patient. Sincerely, Delbert Whitaker CONSTRUCTION ACCOUNTANT This document has images extracted. Source: [facility] Document Id: [id number] Miscellaneous - Joshua Rubin L.P.N. - 10/18/2015 9:45 AM CST Adult Baker Chef Intake/History Adult Baker Chef Intake/History Entered On: 10/18/2015 9:47 [facility] Performed On: 10/18/2015 9:45 [facility] by JOSHUA RUBIN LPN Intake Chief Complaint : Lab results Temperature [...] kg JOSHUA RUBIN LPN - 10/18/2015 9:45 [facility] General Info Information Given By : Patient Preferred Communication Mode : Verbal Languages : Urdu Is Patient Female and 13-50 no hysterectomy : No JOSHUA RUBIN LPN - 10/18/2015 9:45 [facility] Subjective Pain Symptoms : No JOSHUA RUBIN LPN - 10/18/2015 9:45 [facility] Dependent Habits Exposure to Tobacco Smoke : Other: Never Smoked Smoking Status : Never smoker Tobacco 2A : No Tobacco Use/Currently Using : No Tobacco Use/Last 30 Days : No Tobacco Use/Last 12 months : No Alcohol Use : Yes JOSHUA RUBIN LPN - 10/18/2015 9:45 [facility] Caffeine Use Grid Caffeine Use : Current Type : Soft drinks Frequency : Daily Amount : 1 can diet soda Last Use : 10/18/14 JOSHUA RUBIN LPN - 10/18/2015 9:45 [facility] Recreational Drug Use Grid Drug Use : None JOSHUA RUBIN LPN - 10/18/2015 9:45 [facility] Source: [facility] Document Id: [id number] [facility]!41 [facility] documented in this encounter Plan of Treatment Not on filedocumented as of this encounter Visit Diagnoses Not on filedocumented in this encounter Additional Health Concerns Assessment Noted Time PHQ-9 Depression Total Score: 1 09/20/2015 8:43 AM [facility] documented as of this encounter
--- OUTSIDE RECORDS SUMMARY | 2022-07-24 10:09 | XMS_ITS | Encounter Summary ---
:1940 Author Organization [facility] Address [address] [place] [address] Care Team Providers Name Role Phone Unavailable Primary Care Provider Unavailable Encounter Details Date Type Department Care Team Description 10/15/2014 Hospital Encounter HX [facility] FBHB FAMILYPRA Jack Apodaca i, M.D. [address] [place] [address] (Wo rk) Social History Tobacco [...] Comments Blood Pressure 136/76 10/15/2014 11:45 AM WINDOWS SOFTWARE ENGINEER Pulse 72 10/15/2014 11:45 AM WINDOWS SOFTWARE ENGINEER Temperature - - Respiratory Rate 16 10/15/2014 11:45 AM WINDOWS SOFTWARE ENGINEER Oxygen Saturation - - Inhaled Oxygen Concentration - - Weight 96 kg (211 lb 10.3 oz) 10/15/2014 11:45 AM WINDOWS SOFTWARE ENGINEER Height 161 cm (5' 3.39) 10/15/2014 11:45 AM WINDOWS SOFTWARE ENGINEER Body Mass Index 37.04 10/15/2014 11:45 AM WINDOWS SOFTWARE ENGINEER documented in this encounter Medications at Time [...] Luo M.D. - 10/15/2014 11:08 AM CST [id number] CHIEF COMPLAINT/ REASON FOR VISIT Proposed surgery date: 11/02/14 Surgeon: Dr. Nickerson Proposed surgery: Left total knee arthroplasty Location: [facility] HISTORY OF PRESENT ILLNESS Ainsley is a [...] to be completed. Lipid panel: 09/14/14 Colonoscopy: 11/12/09 Influenza: 07/02/14 Tetanus booster: 07/25/07 SOCIAL HISTORY She has a grown son. She lives in [place]. FAMILY HISTORY Mother at age 90 of [...] behalf by Selin Holloway, a trained medical staff manager. The creation of this record is based on the scribe's personal observations and the provider's statements to them. This document has been denise cked and approved by the attending provider. Jack Dorman M.D./denis Electronically Signed By: JACK LUO MD On: 11/01/2014 12:08 PM Source: [facility] MHSDOLBEYNONRADSYS Document Id: [id number] OWS SOFTWARE ENGINEER documented in this encounter Nursing Notes Conversion, Historical Provider Ser - 11/01/2014 3:13 PM CST pre-op Pre-op faxed to [facility]. Electronically Signed By: RPAKASH ACEVEDO On: 11/01/2014 03:14 PM Source: [facility] Document Id: [id number] documented in this encounter Miscellaneous Notes Telephone Encounter - Conversion, Historical Provider Ser - 11/15/2014 10:42 AM CST *Phone Message Document Contains Addenda Addendum by JOE RAZA LPN on 15 November 2014 10:50:59 WINDOWS SOFTWARE ENGINEER will fax after provider fills out and signs order From: JEREMIAH ELLSWORTH ([employer] Design Drafter) To: DAVID Dorman Nurse; Sent: 11/15/2014 10:42:52 WINDOWS SOFTWARE ENGINEER Subject: *Phone Message Caller is: ( x [...] Any questions she can be reached at [phone] Message: Advice/Action: Source used: ( ) Verbalizes [...] back cell phone number ( ) [facility] Document Id: [id number] Miscellaneous - Jack Luo M.D. - 10/15/2014 8:48 PM WINDOWS SOFTWARE ENGINEER Ambulatory Patient Summary [address] [id number] Visit Information Name: ARNOL-GARCIAAINSLEY [facility] Number: [id number] Current Date: 10/15/2014 20:48:33 Physicians Attending Provider: JACK LUO MD Primary Care Provider: PCP, UNASSIGNED - FB ARNOLAINSLEY JOHNSON ELIZABETH has been given the following list [...] nasal (Flonase 0.05 mg/inh nasal spray) 1 Jefferson(s), Nostrils(Both), once a day hydrochlorothiazide (hydrochlorothiazide 25 [...] appointment detail needed. Your Goals/Additional instructions: Source: [facility] POWERCHART Document Id: [id number] OWS SOFTWARE ENGINEER Miscellaneous - Jack Luo M.D. - 10/15/2014 8:48 PM WINDOWS SOFTWARE ENGINEER Ambulatory Discharge Medication List [address] [id number] Visit Information Name: AINSLEY CEDEÑO [facility] Number: [id number] Visit Date: 10/15/2014 20:48:32 Attending Provider: JACK LUO MD Primary Care Provider: PCP, UNASSIGNED - FB AINSLEY CDEEÑO has been given the following list of [...] nasal (Flonase 0.05 mg/inh nasal spray) 1 Jefferson(s), Nostrils(Both), once a day hydrochlorothiazide (hydrochlorothiazide 25 [...] MD Signed On:15-OCT-2014 20:48:23 Additional Information: Source: [facility] POWERCHART Document Id: [id number] OWS SOFTWARE ENGINEER Miscellaneous - Conversion, Historical Provider Ser - 10/15/2014 11:45 AM WINDOWS SOFTWARE ENGINEER Adult Professional Poker Player Intake/History Adult Professional Poker Player Intake/History Entered On: 10/15/2014 11:46 WINDOWS SOFTWARE ENGINEER Performed On: 10/15/2014 11:45 WINDOWS SOFTWARE ENGINEER by JOE RAZA LPN Intake Chief Complaint [...] kg/m2 JOE RAZA LPN - 10/15/2014 11:45 WINDOWS SOFTWARE ENGINEER General Info Information Given By : Patient Languages : Bermudian Is Patient Female and 13-50 no hysterectomy : No JOE RAZA LPN - 10/15/2014 11:45 WINDOWS SOFTWARE ENGINEER Subjective Pain Symptoms : Yes JOE RAZA LPN - 10/15/2014 11:45 WINDOWS SOFTWARE ENGINEER Pain Scale Pain Scale Verbal 0-10 : Open JOE RAZA LPN - 10/15/2014 11:45 WINDOWS SOFTWARE ENGINEER Pain Pain Assessment Grid Pain 1 Location : Knee Laterality : Left JOE RAZA LPN - 10/15/2014 11:45 WINDOWS SOFTWARE ENGINEER Dependent Habits Tobacco Use/Currently Using : No Exposure to Tobacco Smoke : Other: Never Smoked Smoking Status : Never smoker JOE RAZA NAVNEET LECHUGA - 10/15/2014 11:45 WINDOWS SOFTWARE ENGINEER Caffeine Use Grid Caffeine Use : Current Type : Soft drinks Frequency : Daily Amount : 1 can diet soda Last Use : 09/15/14 JOE RAZA NAVNEET LECHUGA - 10/15/2014 11:45 WINDOWS SOFTWARE ENGINEER Recreational Drug Use Grid Drug Use : None OLVIN MICHELLE, JOE NAVNEET LECHUGA - 10/15/2014 11:45 WINDOWS SOFTWARE ENGINEER ID Screen Drug Resistant Organism : No Travel Within Last 21 Days : No OLVIN MONTESNAJEO NAVNEET LECHUGA - 10/15/2014 11:45 WINDOWS SOFTWARE ENGINEER Source: [facility] Document Id: [id number] WINDOWS SOFTWARE ENGINEER!48 Miscellaneous - Conversion, Historical Provider Ser - 10/15/2014 11:45 AM WINDOWS SOFTWARE ENGINEER Obstructive Sleep Apnea Obstructive Sleep Apnea Entered On: 10/15/2014 11:47 WINDOWS SOFTWARE ENGINEER Performed On: 10/15/2014 11:45 WINDOWS SOFTWARE ENGINEER by JOE RAZA LPN YOGI Screening Known Obstructive Sleep Apnea : No - NOT diagnosed with YOGI OLVIN MARTINEZ JOEANGIE TOTH LPN - 10/15/2014 11:45 WINDOWS SOFTWARE ENGINEER YOGI Assessment Do you have high blood [...] MICHELLE, JOEANGIE TOTH LPN - 10/15/2014 11:45 WINDOWS SOFTWARE ENGINEER Source: [facility] Document Id: [id number] WINDOWS SOFTWARE ENGINEER!10 documented in this encounter Plan of Treatment Not on filedocumented as of this encounter Procedures Procedure Name Priority Date/Time Associated Diagnosis Comme nts AUTOMATED Routine 10/15/2014 12:36 PM Results for this DIFFERENTIAL, B WINDOWS SOFTWARE ENGINEER procedure ar e in the results section. CBC WITH Routine 10/15/2014 12:36 PM Results for this DIFFERENTIAL, B WINDOWS SOFTWARE ENGINEER procedure ar e in the results section. DX CHEST 1 VIEW Routine 10/15/2014 12:07 PM Resul ts for this WINDOWS SOFTWARE ENGINEER procedure are i n the results section. documented in this encounter Results (ABNORMAL) Automated Differential (10/15/2014 12:36 PM WINDOWS SOFTWARE ENGINEER) Patholo gist Method Time Signature Absolute 4.48 1.70 - POWERCHART Neutrophils 7.00 109L Lymphocytes 3.58 (H) 0.90 - POWERCHART 2.90 X109L Monocytes 0.75 0.30 - POWERCHART 0.90 X109L Eosinophils 0.17 0.05 - POWERCHART 0.50 X109L Absolute 0.05 0.00 - POWERCHART Basophil 0.30 X109L Specimen Anatomical Collection Method Collection Time Receive d Time (Source) Location / / Volume Laterality Blood 10/15/2014 12:36 10/15/2014 PM WINDOWS SOFTWARE ENGINEER 12:36 PM WINDOWS SOFTWARE ENGINEER Jack Root M.D. LAB BLOOD ADD-ON Performing Organization Address City/State/ZIP Code Phon e Number POWERCHART CBC with Differential (10/15/2014 12:36 PM WINDOWS SOFTWARE ENGINEER) P athologist Signature Leukocytes 9.0 3.4 - 10.5 POWERCHART X109L Erythrocytes 4.30 3.90 - POWERCHART 5.03 [id number] Hemoglobin 12.1 12.0 - POWERCHART 15.5 GDL Hematocrit 38.4 34.9 - POWERCHART 44.5 MCV 89.3 82.0 - POWERCHART 98.0 FL Platelet Count 282 150 - 450 POWERCHART X109L HX RDW 14.3 11.9 - POWERCHART 15.5 HXDifferential? Auto POWERCHART Specimen (Source) Anatomical Collection Method Collection Time Re ceived Time Location / / Volume Laterality Blood 10/15/2014 12:36 PM WINDOWS SOFTWARE ENGINEER Jack Root M.D. LAB BLOOD ADD-ON Performing Organization Address City/State/ZIP Code Phon e Number POWERCHART DX Chest 1 View (10/15/2014 12:07 PM WINDOWS SOFTWARE ENGINEER) Anatomical Region Laterality Modality Chest N/A Radiographic Imaging Specimen (Source) Anatomical Collection Method Collection Time Re ceived Time Location / / Volume Laterality 10/15/2014 12:07 PM WINDOWS SOFTWARE ENGINEER Addenda Addendum by Provider, Cristiana Marino o n 10/15/2014 12:07 PM WINDOWS SOFTWARE ENGINEER RAD^^^OW XR Chest 1 view 10/15/2014 12:07:50 Addendum by Provider, Cristiana Marino o n 10/15/2014 12:07 PM WINDOWS SOFTWARE ENGINEER RAD^^^MA XR Chest 1 view 10/15/2014 12:07:50 Impressions 10/15/2014 12:57 PM WINDOWS SOFTWARE ENGINEER Stable chest, no active cardiopulmonary disease. Narrative 10/15/2014 12:57 PM WINDOWS SOFTWARE ENGINEER EXAM: XR Chest 1 view INDICATION: preop [...] no active card iopulmonary disease. Alison Farmer(R), RAntwanTAntwan(R)(M) IMG DIAGNOSTIC IM AGING PROCEDURES documented in this encounter Visit Diagnoses Not on filedocumented in this encounter Additional Health Concerns Assessment Noted Time PHQ-9 Depression Total Score: 1 09/16/2014 9:15 AM WINDOWS SOFTWARE ENGINEER documented as of this encounter
--- OUTSIDE RECORDS SUMMARY | 2022-07-24 10:09 | XMS_ITS | Encounter Summary ---
:1940 Author Organization [facility] Address [address] [place] [address] Care Team Providers Name Role Phone Unavailable Primary Care Provider Unavailable Encounter Details Date Type Department Care Team Description 09/13/2016 Hospital Encounter HX NO MAPPING Jasmeet Cardenas M.D. [address] [place] [address] [place], [place] [address] Social History Tobacco Use Types [...]
--- OUTSIDE RECORDS SUMMARY | 2022-07-24 10:09 | XMS_ITS | Encounter Summary ---
:1940 Author Organization [facility] Address [address] [place] [address] Care Team Providers Name Role Phone Unavailable Primary Care Provider Unavailable Encounter Details Date Type Department Care Team Description 09/20/2015 Hospital Encounter HX NO MAPPING Aneta Whitaker APRN, C.N.P., M. S.N. [address] [place], [place] [phone] (Wo rk) Social History [...] Historical Provider Ser - 09/20/2015 11:59 PM PHYSICIAN RELATIONS REPRESENTATIVE Coding Summary-Paper Based CODING DATE: 10/06/2015 FINAL [facility] STATUS: * [...] VIZCARRA Date Saved: 10/06/2015 02:57 pm Source: [employer] Document Id: [id number] documented in this encounter Plan of Treatment Not on filedocumented as of this encounter Visit Diagnoses Not on filedocumented in this encounter Additional Health Concerns Assessment Noted Time PHQ-9 Depression Total Score: 1 09/20/2015 8:43 AM PHYSICIAN RELATIONS REPRESENTATIVE documented as of this encounter
--- OUTSIDE RECORDS SUMMARY | 2022-07-24 10:09 | XMS_ITS | Encounter Summary ---
:1940 Author Organization [facility] Address [address] [place] [address] Care Team Providers Name Role Phone Unavailable Primary Care Provider Unavailable Encounter Details Date Type Department Care Team Description 07/01/2015 Hospital Encounter HX NO MAPPING Aneta Whitaker APRN, C.N.P., M. S.N. [address] [place], [place] [phone] (Wo rk) Social History [...] Coding Summary-Paper Based CODING DATE: 07/12/2015 FINAL [facility] STATUS: * Discharged to Home or Self [...] VIZCARRA Date Saved: 07/12/2015 01:20 pm [facility] Document Id: [id number] documented in this encounter Plan of Treatment Not on filedocumented as of this encounter Visit Diagnoses Not on filedocumented in this encounter Additional Health Concerns Assessment Noted Time PHQ-9 Depression Total Score: 5 07/01/2015 8:48 AM CDT documented as of this encounter
--- OUTSIDE RECORDS SUMMARY | 2022-07-24 10:10 | XMS_ITS | Encounter Summary ---
:1940 Author Organization [facility] Address [address] [place] [address] Care Team Providers Name Role Phone Unavailable Primary Care Provider Unavailable Encounter Details Date Type Department Care Team Description 05/23/2011 Hospital Encounter HX [facility] FBKF FAMILYPRA Naomi Parker, MISA, C.N.P., D. N.P. [address] [place], [place] [address] (Wo rk) Social History [...]
--- OUTSIDE RECORDS SUMMARY | 2022-07-24 10:10 | XMS_ITS | Encounter Summary ---
:1940 Author Organization [facility] Address [address] [place] [address] Care Team Providers Name Role Phone Unavailable Primary Care Provider Unavailable Encounter Details Date Type Department Care Team Description 08/01/2012 Hospital Encounter HX [facility]ILY[facility] Naomi Parker, MISA, C.N.P., D. N.P. [address] [place], [place] [address] (Wo rk) Social History [...] APRN, C.N.P. - 08/01/2012 10:28 AM CDT [id number] CHIEF COMPLAINT/REASON FOR VISIT UTI. HISTORY OF [...] pain. Patient also will be traveling to [place] from October 07 to January 05 and is due for her mammogram in October. We have been arranging to have her mammogram completed in [place] while she is snowboarding. Patient will follow [...] SKINNER CNP On: 09/14/2012 08:54 PM Source: [facility] MHSDOLBEYNONRADSY Document Id: [id number] L ERECTING PUSHER documented in this encounter Procedure Notes Duc [...] : Negative Test Strip Lot # : [id number] Test Strip Expiration Date : 05/21/2013 DUC RUCKER - 08/01/2012 11:15 CDT Source: [facility] POWERCHART Document Id: [id number] documented in this encounter Nursing Notes Duc Ling L.PAntwanN. - 08/05/2012 4:03 PM CDT Mammo Screening Scheduled 10/20/2012 [facility] Document Contains Addenda Addendum by SE [facility], INBOX [id number] on December 15, 2015 15:49 STEEL ERECTING PUSHER The nurse who authored this document is no longer available to authenticate. The document will be filed without authentication. Modified by and Electronically Signed by: DUC RUCKER On: 12/15/2015 03:49 PM Electronically Signed by Proxy by: SE JOHN GILL, INBOX Mammo Screening Scheduled 10/20/2012 [facility]. [place] Referring Physicians fax [phone] and phone number [phone] or [phone] Electronically Signed By: DUC RUCKER On: 12/15/2015 03:49 PM Electronically Signed by Proxy by: SE JOHN GILL, INBOX Source: [facility] POWERCHART Document Id: [id number] L ERECTING PUSHER documented in this encounter Miscellaneous Notes Miscellaneous - Jonathon Parker APRN, C.N.P. - 08/07/2012 10:25 AM CDT Results Notification Document Contains Addenda Addendum by DUC RUCKER on 12 August 2012 13:47:44 STEEL ERECTING PUSHER being treated From: JONATHON SKINNER BOOT TRIMMER To: DAVID Pascual Nurse Sent: 08/07/2012 10:25:36 CDT ! Show up: 08/07/2012 15:25:36 [facility] Subject: Results Notification Actions: Notify patient-refer to General Message Source: [facility] POWERCHART Document Id: [id number] Miscellaneous - Jonathon Parker APRN, C.N.P. - 08/01/2012 11:24 AM CDT Ambulatory Patient Summary [address] [address] Visit Information Name: AINSLEY GANDHI Visit Date: [...] your provider for clarification. Additional Information: Source: [facility] POWERCHART Document Id: [id number] Miscellaneous - Jonathon Parker APRN C.N.P. - 08/01/2012 11:24 AM CDT Ambulatory Depart Summary [address] [address] Visit Information Name: AINSLEY GANDHI Visit Date: 08/01/2012 11:23:59 Attending Provider: JONATHON SKINNER CNP Primary Care Provider: JONATHON SKINNER CNP AINSLEY GADNHI has been given the following list of [...] your provider for clarification. Additional Information: Source: [facility] POWERCHART Document Id: [id number] Miscellaneous - Duc Ling L.P.N. - 08/01/2012 10:38 AM CDT Adult Fire Inspector Intake/History Adult Fire Inspector Intake/History Entered On: 08/01/2012 10:40 CDT Performed [...] cans Last Use : yesterday after noon UDC RUCKER - 08/01/2012 10:38 CDT Recreational Drug [...] MD; Reviewed Date: 08/01/2012 10:35 CDT Source: 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 Test performed at [facility]. Specimen (Source) Anatomical Collection Method Collection Time [...] CDT) P athologist Signature Specific 1.030 POWERCHART [place], POCT, U Specimen (Source) Anatomical Collection Method [...] POCT ORDERABLES - DEVICE Performing Organization Address [facility] Phon e Number POWERCHART Dipstick, POCT, Urine (lab) (08/01/2012 11:16 AM CDT) Analysis Performed At [facility] Time Signature Protein, POCT, 3+ (300 POWERCHART U mg/dl) Specimen (Source) Anatomical Collection Method Collection Time Re ceived Time Location / / Volume Laterality 08/01/2012 11:16 AM CDT Historical Provider LAB POCT ORDERABLES - DEVICE Performing Organization Address [facility] Phon e Number POWERCHART Dipstick, POCT, Urine (lab) (08/01/2012 11:16 AM CDT) Analysis Performed At [facility] Time Signature Urobilinogen, 0.2 mg/dl POWERCHART POCT, Urine Specimen (Source) Anatomical Collection Method Collection Time Re ceived Time Location / / Volume Laterality 08/01/2012 11:16 AM CDT Historical Provider LAB POCT ORDERABLES - DEVICE Performing Organization Address [facility] Phon e Number POWERCHART HX UA NITRITE POC (08/01/2012 11:16 AM CDT) P athologist Signature Nitrites, Negative POWERCHART POCT, U Specimen (Source) Anatomical Collection Method Collection Time Re ceived Time Location / / Volume Laterality 08/01/2012 11:16 AM CDT Historical Provider LAB HISTORICAL ORDERS Performing Organization Address City/[facility]/ZIP Code Phon e Number POWERCHART Dipstick, POCT, [...] POCT ORDERABLES - DEVICE Performing Organization Address [facility]/ZIP Code Phon e Number POWERCHART HX UA [...] CDT) P athologist Signature Specific 1.030 POWERCHART [place], POCT, U Specimen (Source) Anatomical Collection Method Collection Time Re ceived Time Location / / Volume Laterality 08/01/2012 11:16 AM CDT Historical Provider LAB POCT ORDERABLES - DEVICE Performing Organization Address City/[facility]/ZIP Code Phon e Number POWERCHART Dipstick, POCT, Urine (lab) (08/01/2012 11:16 AM CDT) athologist Signature Blood, POCT, U 3+ LARGE POWERCHART Specimen (Source) Anatomical Collection Method Collection Time Re ceived Time Location / / Volume Laterality 08/01/2012 11:16 AM CDT Historical Provider LAB POCT ORDERABLES - DEVICE Performing Organization Address [facility] Code Phon e Number POWERCHART Dipstick, POCT, Urine (lab) (08/01/2012 11:16 AM CDT) P athologist Signature pH, POCT, Urine 6.0 POWERCHART Specimen (Source) Anatomical Collection Method Collection Time Re ceived Time Location / / Volume Laterality 08/01/2012 11:16 AM CDT Historical Provider LAB POCT ORDERABLES - DEVICE Performing Organization Address [facility]/ZIP Code Phon e Number POWERCHART Dipstick, POCT, Urine (lab) (08/01/2012 11:16 AM CDT) Analysis Performed At Patho logist Time Signature Protein, POCT, 3+ (300 POWERCHART U mg/dl) Specimen (Source) Anatomical Collection Method Collection Time Re ceived Time Location / / Volume Laterality 08/01/2012 11:16 AM CDT Historical Provider LAB POCT ORDERABLES - DEVICE Performing Organization Address City/[facility]/ZIP Code Phon e Number POWERCHART Dipstick, POCT, Urine (lab) (08/01/2012 11:16 AM CDT) Analysis Performed At [facility]o logist Time Signature Urobilinogen, 0.2 mg/dl POWERCHART POCT, Urine Specimen (Source) Anatomical Collection Method Collection Time Re ceived Time Location / / Volume Laterality 08/01/2012 11:16 AM CDT Historical Provider LAB POCT ORDERABLES - DEVICE Performing Organization Address [facility]/ZIP Code Phon e Number POWERCHART HX UA NITRITE POC (08/01/2012 11:16 AM CDT) P athologist Signature Nitrites, Negative POWERCHART POCT, U Specimen (Source) Anatomical Collection Method Collection Time Re ceived Time Location / / Volume Laterality 08/01/2012 11:16 AM CDT Historical Provider LAB HISTORICAL ORDERS Performing Organization Address City/[facility]/ZIP Code Phon e Number POWERCHART Dipstick, POCT, Urine (lab) (08/01/2012 11:16 AM CDT) P athologist Signature Leukocytes, 3+ Large POWERCHART POCT, U Specimen (Source) Anatomical Collection Method Collection Time Re ceived Time Location / / Volume Laterality 08/01/2012 11:16 AM CDT Historical Provider LAB POCT ORDERABLES - DEVICE Performing Organization Address [facility]/ZIP Code Phon e Number POWERCHART HX UA APPEAR POC (08/01/2012 11:16 AM CDT) P athologist Signature Appearance Cloudy POWERCHART Specimen (Source) Anatomical Collection Method Collection Time Re ceived Time Location / / Volume Laterality 08/01/2012 11:16 AM CDT Historical Provider LAB HISTORICAL ORDERS Performing Organization Address City/[facility]/ZIP Code Phon e Number POWERCHART Dipstick, POCT, [...]
--- OUTSIDE RECORDS SUMMARY | 2022-07-24 10:10 | XMS_ITS | Encounter Summary ---
:1940 Author Organization [facility] Address [address] [place] [address] Care Team Providers Name Role Phone Unavailable Primary Care Provider Unavailable Encounter Details Date Type Department Care Team Description 03/19/2011 Hospital Encounter HX [facility] FAMILYPRA Tino Horn P.A.-C. [address] [place] [address] (Wo rk) Social History Tobacco [...] Horn P.A.-C. - 03/19/2011 12:00 AM CDT [id number] CHIEF COMPLAINT/REASON FOR VISIT Travel immunizations. 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 She in general has been in good health. She is a . Her in [place] and she has decided that she wants to travel to [facility] because she has not been there. 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 TLR/kln Signed [facility] Electronically Signed By: APOLONIA HORN PA-C On: 03/21/2011 08:39 AM Source: [facility] MHSDOLBEYNONRADSYS Document Id: [id number] documented in this encounter Miscellaneous Notes Miscellaneous - Apolonia Horn P.A.-C. - 03/19/2011 5:16 PM CDT Ambulatory Patient Summary [address] [address] Visit Information Name: ELISE GANDHI Current Date: 03/19/2011 17:16:38 Primary Care [...] you from getting the serious disease Tetanus (Ghassanw). Your Upcoming Appointments Date Time Location Reason Provider No Appointments found Your Goals/Additional instructions: Source: [facility] POWERCHART Document Id: [id number] Miscellaneous - Apolonia Horn P.A.-C. - 03/19/2011 5:16 PM CDT Ambulatory Depart Summary [address] [address] Visit Information Name: ELISE GANDHI Current Date: 03/19/2011 17:16:37 Primary Care Provider: [facility] ELISE GANDHI has been given the following [...] to the patient and/or family, guardian/caregiver. Source: [facility] [employer] Document Id: [id number] Miscellaneous - Conversion, Historical Provider Ser - [...] PAULINO LPN - 03/19/2011 13:46 CDT [facility] Document Id: [id number] CDT!8 Miscellaneous - Conversion, Historical Provider Ser - 03/19/2011 1:41 PM CDT Advance Directive Advance Directive Entered On: 03/19/2011 13:41 CDT Performed On: 03/19/2011 13:41 CDT by KVNG PAULINO LPN Advance Directive Advanced Directives: No KVNG PAULINO LPN - 03/19/2011 13:41 CDT [facility] Document Id: [id number] CDT!3 Miscellaneous - Conversion, Historical Provider Ser - 03/19/2011 1:41 PM CDT Adult Automobile Contract Clerk Intake/History Adult Automobile Contract Clerk Intake/History Entered On: 03/19/2011 13:46 CDT Performed On: 03/19/2011 13:41 CDT by KVNG PAULINO LPN Intake Chief Complaint: Need shots for trip to [facility] - Sep.10. + check spot on [...] MD; Reviewed Date: 03/19/2011 13:40 CDT Source: [facility] [employer]CHART Document Id: [id number] CDT!31 documented in this encounter Plan of Treatment Not on filedocumented as of this encounter Visit Diagnoses Not on filedocumented in this encounter
--- OUTSIDE RECORDS SUMMARY | 2022-07-24 10:10 | XMS_ITS | Encounter Summary ---
:1940 Author Organization [facility] Address [address] [place] [address] Care Team Providers Name Role Phone Unavailable Primary Care Provider Unavailable Encounter Details Date Type Department Care Team Description 03/09/2014 Hospital Encounter HX [facility] FBKF FAMILYPRA Naomi Parker, MISA, C.N.P., D. N.P. 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 Band-Aid was applied. No complications. [place] protocol was followed and please see universal protocol sheet scanned into EMR. Patient was instructed to call immediately if she develops redness, pain, or swelling. Patient verbalizes understanding and agrees with plan of care. Elizabeth Skinner CNP/tello Electronically Signed By: ELIZABETH SKINNER CNP On: 05/27/2014 06:24 PM Modified by and Electronically Signed by: ELIZABETH SKINNER CNP On: 05/27/2014 06:24 PM Source: [facility] MHSDOLBEYNONRADSYS Document Id: [id number] documented in this encounter Miscellaneous Notes Miscellaneous - Joshua Rubin, L.P.N. - 03/09/2014 3:00 PM CDT Adult Program Scheduler Intake/History Adult Program Scheduler Intake/History Entered On: 03/09/2014 15:01 CDT Performed On: 03/09/2014 15:00 CDT by JOSHUA RUBIN LPN Intake Chief Complaint : cortisone injection in [...] Preferred Communication Mode : Verbal Languages : Frisian JOSHUA RUBIN LPN - 03/09/2014 15:00 CDT [...] RUBIN LPN - 03/09/2014 15:00 CDT Source: [employer] Document Id: [id number] CDT!41 documented in this encounter Plan of Treatment Not on filedocumented as of this encounter Visit Diagnoses Not on filedocumented in this encounter
--- OUTSIDE RECORDS SUMMARY | 2022-07-24 10:10 | XMS_ITS | Encounter Summary ---
:1940 Author Organization [facility] Address [address] [place] [address] Care Team Providers Name Role Phone Unavailable Primary Care Provider Unavailable Encounter Details Date Type Department Care Team Description 09/12/2012 Hospital Encounter HX [facility] FBKF FAMILYPRA Naomi Parker, MISA, C.N.P., D. N.P. [address] [place], [place] [address] (Wo rk) Social History [...] Comments Blood Pressure 130/84 09/12/2012 8:37 AM PSYCHOLOGY INTERN Pulse 68 09/12/2012 8:37 AM PSYCHOLOGY INTERN Temperature - - Respiratory Rate 16 09/12/2012 8:37 AM PSYCHOLOGY INTERN Oxygen Saturation - - Inhaled Oxygen Concentration - - Weight 88.5 kg (195 lb 1.7 oz) 09/12/2012 8:37 AM PSYCHOLOGY INTERN Height 162.2 cm (5' 3.86) 09/12/2012 8:37 AM PSYCHOLOGY INTERN Body Mass Index 33.64 09/12/2012 8:37 AM PSYCHOLOGY INTERN documented in this encounter Medications at Time [...] APRN, C.N.P. - 09/12/2012 8:28 AM CST [id number] CHIEF COMPLAINT/REASON FOR VISIT Annual exam HISTORY OF PRESENT ILLNESS The patient is a 71-year-old female who presents to the clinic for her annual exam. Patient has a history of obesity and is currently following the Weight Watchers diet. Patient is also exercising fivetimes a week by using treadmill and weights. Patient's mammogram is due in October. However, she will be in [place] at this time. Patient is debating whether or not to have her mammogram done in [place] or when she returns in January. Patient [...] history of asthma and is followed by [facility] entertainment dancer. She also has a history of hyperlipidemia [...] current. Patient will schedule her mammogram in [place] in October, otherwise she will complete it [...] SKINNER CNP On: 09/15/2012 10:06 AM Source: [facility] MHSDOLBEYNONRADSYS Document Id: [id number] HOLOGY INTERN documented in this encounter Miscellaneous Notes Miscellaneous - Alexia Nj, R.NAntwan - 04/27/2013 9:54 AM CDT Medication Refill [...] Call to Pharmacy ( ) Patient will sheepskin pickler Script ( ) Mail Rx to Patient Source: [facility] POWERCHART Document Id: [id number] Miscellaneous - Jonathon Parker APRN, C.N.P. - 09/12/2012 12:10 PM PSYCHOLOGY INTERN Quality Measures Quality Measures Entered On: 09/12/2012 12:11 PSYCHOLOGY INTERN Performed On: 09/12/2012 12:10 PSYCHOLOGY INTERN by JONATHON SKINNER CNP Asthma Asthma Control Test (ACT) Score : 23 ED visits past yr for asthma w/o hospital stay : 0 Hospitalizations/Overnight Stays in Past yr for Asthma : 0 Asthma Action Plan Provided/Reviewed : Reviewed with the patient Asthma Action Plan Copy : Scanned into EMR JONATHON SKINNER CNP - 09/12/2012 12:10 PSYCHOLOGY INTERN Source: [facility] POWERCHART Document Id: [id number] HOLOGY INTERN Miscellaneous - Jonathon Parker APRN, C.N.P. - 09/12/2012 12:03 PM PSYCHOLOGY INTERN Ambulatory Patient Summary [facility] [address] [place] [address] Visit Information Name: AINSLEY AGUAYO [facility] Number: [id number] Current Date: 09/12/2012 12:02:59 Physicians [...] FamilyPrac BP Recheck Your Goals/Additional instructions: Source: [facility] POWERCHART Document Id: [id number] HOLOGY INTERN Miscellaneous - Jonathon Parker APRN, C.N.P. - 09/12/2012 12:02 PM PSYCHOLOGY INTERN Ambulatory Depart Summary [address] [address] Visit Information Name: ARNOLBbobiRADHA JOSI [facility] Number: [id number] Visit Date: 09/12/2012 12:02:58 Attending [...] your provider for clarification. Additional Information: Source: [facility] POWERCHART Document Id: [id number] HOLOGY INTERN Miscellaneous - Conversion, Historical Provider Ser - 09/12/2012 8:43 AM PSYCHOLOGY INTERN Health Assessment Health Assessment Entered On: 09/12/2012 8:44 PSYCHOLOGY INTERN Performed On: 09/12/2012 8:43 PSYCHOLOGY INTERN by TITA CALDWELL Health Assessment Complete Health Assessment Complete or Modified : Modified Health Assessment TITA CALDWELL - 09/12/2012 8:43 PSYCHOLOGY INTERN Nutrition Nutrition Risk Factors by History Adult : None TITA CALDWELL - 09/12/2012 8:43 PSYCHOLOGY INTERN Functional Living Situation : Home independently Current Daily Living Assistance : None TITA CALDWELL - 09/12/2012 8:43 PSYCHOLOGY INTERN Dependent Habits Tobacco Use/Currently Using : No Exposure to Tobacco Smoke : Other: Never Smoked Smoking Status : Never smoker Alcohol Use : Yes TITA CALDWELL - 09/12/2012 8:43 PSYCHOLOGY INTERN Caffeine Use Grid Caffeine Use : Current Type : Coffee, Soft drinks Frequency : Daily Amount : 1 cup & 2 cans TITA CALDWELL - 09/12/2012 8:43 PSYCHOLOGY INTERN Recreational Drug Use Grid Drug Use : None TITA CALDWELL S 09/12/2012 8:43 PSYCHOLOGY INTERN AUDIT Tool How Often Do You Have A Drink : Monthly or less How Many Drinks in a Day When Drinking : 1 or 2 Six or More Drinks On One Occassion : Never Audit Phase 1 Score : 1 PARESHALVAROCarlyJAYCEAYLASACHA Martines 09/12/2012 8:43 PSYCHOLOGY INTERN Psychosocial Domestic Abuse Concerns : None Number of Children : 1 son 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 TITA CALDWELL 09/12/2012 8:43 PSYCHOLOGY INTERN Advance Directive Advanced Directives : No TITA CALDWELL 09/12/2012 8:43 PSYCHOLOGY INTERN Educ Needs Learning Style Preference Adult Grid Patient : None Family : None TITA CALDWELL 09/12/2012 8:43 PSYCHOLOGY INTERN Source: [email or web address] Document Id: [id number] Miscellaneous - Conversion, Historical Provider Ser - 09/12/2012 8:37 AM PSYCHOLOGY INTERN Adult Ross Furnace Operator Intake/History Adult Ross Furnace Operator Intake/History Entered On: 09/12/2012 8:42 PSYCHOLOGY INTERN Performed On: 09/12/2012 8:37 PSYCHOLOGY INTERN by TITA CALDWELL Intake Chief Complaint : [...] : 2.00 Body Mass Index : 33.64kg/m2 TITA CALDWELL 09/12/2012 8:37 PSYCHOLOGY INTERN Subjective Pain Symptoms : No TITA CALDWELL 09/12/2012 8:37 PSYCHOLOGY INTERN Dependent Habits Tobacco Use/Currently Using : No Exposure to Tobacco Smoke : Other: Never Smoked Smoking Status : Never smoker TITA CALDWELL - 09/12/2012 8:37 PSYCHOLOGY INTERN Caffeine Use Grid Caffeine Use : Current Type : Coffee, Soft drinks Frequency : Daily Amount : 1 cup & 2 cans Last Use : yesterday after noon TITA CALDWELL - 09/12/2012 8:37 PSYCHOLOGY INTERN Recreational Drug Use Grid Drug Use : None TITA CALDWELL - 09/12/2012 8:37 PSYCHOLOGY INTERN Allergy Allergies (Active) Cats Estimated Onset Date: Unspecified ; Reactions: unknown ; Created By: PHILLIP JARAMILLO MD; Reaction Status: Active ; Category: Other ; Substance: Cats ; Type: Allergy ; Updated By: PHILLIP JARAMILLO; Reviewed Date: 09/12/2012 8:34 PSYCHOLOGY INTERN Dust Mite Estimated Onset Date: Unspecified ; Created By: KVNG PAULINO LPN; Reaction Status: Active ; Category: Drug ; Substance: Dust Mite ; Type: Allergy ; Updated By: KVNG PAULINO LPN; Reviewed Date: 09/12/2012 8:34 PSYCHOLOGY INTERN prochlorperazine Estimated Onset Date: Unspecified ; Reactions: unknown ; Created By: BRAD JARAMILLO MD; Reaction Status: Active ; Category: Drug ; Substance: prochlorperazine ; Type: Allergy ; Updated By: PHILLIP JARAMILLO MD; Reviewed Date: 09/12/2012 8:34 PSYCHOLOGY INTERN Source: [facility] [employer] Document Id: [id number] documented in this encounter Plan of Treatment Not on filedocumented as of this encounter Visit Diagnoses Not on filedocumented in this encounter
--- OUTSIDE RECORDS SUMMARY | 2022-07-24 10:10 | XMS_ITS | Encounter Summary ---
:1940 Author Organization [facility] Address [address] [place] [address] Care Team Providers Name Role Phone Unavailable Primary Care Provider Unavailable Encounter Details Date Type Department Care Team Description 08/06/2012 Hospital Encounter HX [facility] FAMILYPRA Naomi Parker, MISA, C.N.P., D. N.P. [address] [place], [place] [address] (Wo rk) Social History [...] as of this encounter Nursing Notes Radha Ling, BenitoPAntwanN. - 08/06/2012 8:50 AM CDT Nurse Only [...] MD; Reviewed Date: 08/01/2012 10:35 CDT Source: [facility] [employer] Document Id: [id number] Radha Ling LAntwanP.NAntwan - 08/06/2012 8:47 AM CDT Nurse Only [...] MD; Reviewed Date: 08/01/2012 10:35 CDT Source: [employer] Document Id: [id number] documented in this encounter Miscellaneous Notes Miscellaneous [...] RADHA RUCKER - 08/06/2012 8:51 CDT Source: [employer] Document Id: [id number] documented in this encounter Plan of Treatment Not on filedocumented as of this encounter Visit Diagnoses Not on filedocumented in this encounter
--- OUTSIDE RECORDS SUMMARY | 2022-07-24 10:10 | XMS_ITS | Encounter Summary ---
:1940 Author Organization [facility] Address [address] [place] [address] Care Team Providers Name Role Phone Unavailable Primary Care Provider Unavailable Encounter Details Date Type Department Care Team Description 03/31/2014 Hospital Encounter HX [facility] Elizabeth Parker, MISA, C.N.P., D.N.P. [address] [place], [place] [address] (Wo rk) Social History [...] AM CDT General Message From: ELIZABETH POTTER PARAPLANNER To: ELISE AGUAYO Sent: 03/31/2014 11:31:27 CDT [...] Lvl 10.0 mg/dL (8.5 - 10.5) Source: [facility] POWERCHART Document Id: [id number] Electronically signed by Conversion, [facility] Accounts Payable Technician [id number] at 03/05/2017 1:50 AM CDT documented in this encounter Plan [...]
--- OUTSIDE RECORDS SUMMARY | 2022-07-24 10:10 | XMS_ITS | Encounter Summary ---
:1940 Author Organization [facility] Address [address] [place] [address] Care Team Providers Name Role Phone Unavailable Primary Care Provider Unavailable Encounter Details Date Type Department Care Team Description 09/18/2012 Hospital Encounter HX [facility] FAMILYPRA Naomi Parker, MISA, C.N.P., D. N.P. 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 after meds. 126/77 pulse 73 1216-12 10 min after meds 123/81 pulse 68 12-17-12 no meds 144/82 pulse 67, 15 min. later no meds 129/75 pulse 66, 13 min later afrer meds. 113/75 pulse 64 12-18-12 no meds 137/83 pulse 72, 15 min. later no meds 112/74 pulse 71, 15 min later after meds. 137/76 pulse 67 Electronically Signed By: TITA CALDWELL On: 09/26/2012 04:33 PM Source[facility] POWERCHART Document Id: [id number] Conversion, Historical Provider Ser - 09/18/2012 8:35 AM CST Nurse Only Documentation Nurse Only Documentation Entered On: 09/18/2012 8:35 SWIMMING POOL SERVICE TECHNICIAN Performed On: 09/18/2012 8:35 SWIMMING POOL SERVICE TECHNICIAN by TITA CALDWELL Vitals/Ht/Wt Systolic Blood Pressure : 140mmHg Diastolic Blood Pressure : 70mmHg NIBP Mean : 93mmHg BP Location : Right upper extremity Blood Pressure Cuff Size : Regular TITA CALDWELL - 09/18/2012 8:35 SWIMMING POOL SERVICE TECHNICIAN Allergy Allergies (Active) Cats Estimated Onset Date: Unspecified ; Reactions: unknown ; Created By: PHILLIP JARAMILLO MD; Reaction Status: Active ; Category: Other ; Substance: Cats ; Type: Allergy ; Updated By: PHILLIP JARAMILLO; Reviewed Date: 09/12/2012 8:34 SWIMMING POOL SERVICE TECHNICIAN Dust Mite Estimated Onset Date: Unspecified ; Created By: KVNG PAULINO LPN; Reaction Status: Active ; Category: Drug ; Substance: Dust Mite ; Type: Allergy ; Updated By: KVNG PAULINO LPN; Reviewed Date: 09/12/2012 8:34 SWIMMING POOL SERVICE TECHNICIAN prochlorperazine Estimated Onset Date: Unspecified ; Reactions: unknown ; Created By: BRAD JARAMILLO MD; Reaction Status: Active ; Category: Drug ; Substance: prochlorperazine ; Type: Allergy ; Updated By: PHILLIP JARAMILLO MD; Reviewed Date: 09/12/2012 8:34 SWIMMING POOL SERVICE TECHNICIAN Source: [employer] Document Id: [id number] documented in this encounter Miscellaneous Notes Miscellaneous - Conversion, Historical Provider Ser - 09/18/2012 8:39 AM SWIMMING POOL SERVICE TECHNICIAN Ambulatory Vitals Height Weight Ambulatory Vitals Height Weight Entered On: 09/18/2012 8:39 SWIMMING POOL SERVICE TECHNICIAN Performed On: 09/18/2012 8:39 SWIMMING POOL SERVICE TECHNICIAN by TITA CALDWELL Vitalcameron/Ht/Wt Systolic Blood Pressure : 140mmHg Diastolic Blood Pressure : 70mmHg NIBP Mean : 93mmHg BP Location : Right upper extremity Blood Pressure Cuff Size : Regular Weight Source : Standing scale TITA CALDWELL - 09/18/2012 8:39 SWIMMING POOL SERVICE TECHNICIAN Source: [employer] Document Id: [id number] documented in this encounter Plan of Treatment Not on filedocumented as of this encounter Visit Diagnoses Not on filedocumented in this encounter
--- OUTSIDE RECORDS SUMMARY | 2022-07-24 10:10 | XMS_ITS | Encounter Summary ---
:1940 Author Organization [facility] Address [address] [place] [address] Care Team Providers Name Role Phone Unavailable Primary Care Provider Unavailable Encounter Details Date Type Department Care Team Description 04/04/2011 Hospital Encounter HX [facility] FAMILYPRA Tino oHrn P.A.-C. [address] [place] [address] (Wo rk) Social History Tobacco [...] Horn P.A.-C. - 04/04/2011 12:00 AM CDT [id number] CHIEF COMPLAINT/REASON FOR VISIT Lesion on her [...] problems in the meantime, let us know. TLR/kln Signed [facility] Electronically Signed By: APOLONIA HORN PA-C On: 04/11/2011 09:58 AM Source: [facility] [employer] Document Id: [id number] documented in this encounter Miscellaneous Notes Miscellaneous - Apolonia Horn P.A.-C. - 04/04/2011 1:40 PM CDT Ambulatory Patient Summary [address] [address] Visit Information Name: ARNOL RADHA AINSLEY GAVIRIA Current Date: 04/04/2011 13:40:46 Primary Care Provider: [...] Time Location Reason Provider 04/13/2011 09:00 FBKF FamilyPra suture removal and f/u FB Ankur Visiting Provider Your Goals/Additional instructions: Source: [facility] [employer] Document Id: [id number] Electronically signed by Nikos, [facility] Gear Repair Supervisor [id number] at 03/10/2017 9:00 PM CDT Miscellaneous - Apolonia Horn P.A.-C. - 04/04/2011 1:40 PM CDT Ambulatory Depart Summary [address] [address] Visit Information Name: AINSLEY GANDHI Current Date: 04/04/2011 13:40:44 Primary Care Provider: [...] to the patient and/or family, guardian/caregiver. Source: [facility] [employer] Document Id: [id number] Miscellaneous - Conversion, Historical Provider Ser - 04/04/2011 10:07 AM CDT Adult Berry Picker Intake/History Adult Berry Picker Intake/History Entered On: 04/04/2011 10:11 CDT Performed [...] breathing with activity KVNG PAULINO LPN - 04/04/2011 10:07 CDT Dependent Habits Tobacco Use/Currently Using: No Tobacco Use/Last 12 months: No Alcohol Use: Yes KVNG PAULINO LPN - 04/04/2011 10:07 CDT Caffeine Use Grid Caffeine Use: Current Type: Coffee, Soft drinks Frequency: Daily Amount: 1 cup & 2 cans Last Use: 4 pm yesterday afternoon KVNG PAULINO LPN - 04/04/2011 10:07 CDT Recreational Drug Use Grid Drug Use: None KVNG PAULINO LPN - 04/04/2011 10:07 CDT Allergy Allergies [...] MD; Reviewed Date: 04/04/2011 10:07 CDT Source: [facility] [employer] Document Id: [id number]!31 documented in this encounter Plan of [...] Time Signature HXLvl IV Surg Performed POWERCHART [facility] Comment: Test Performed by: [facility] Dpt of Lab Med and Pathology [address] [place] [address] Advanced Practice Psychiatric Nurse: Michael marquis III, M.D. Specimen Anatomical Collection Method Collection Time Receive d Time (Source) Location / / Volume Laterality Tissue 04/04/2011 11:00 04/05/2011 6:49 AM CDT AM CDT Historical Provider LAB SURG PATH ORDERABLES Performing Organization Address City/State/ZIP Code Phon e Number POWERCHART Dermatopathology Consult (04/04/2011 11:00 AM CDT) [facility] gist Method Time Signature HXDrm Exam [id number] POWERCHART [facility] HXDrm Exam See Comment POWERCHART [facility] Comment: RESULT: Apolonia Horn M.D. [facility] [employer]OWER[employer] Comment: [address] [address] HXDrm Exam [place] See Comment [employer]OWER[employer] Comment: A. ??Received in formalin labeled with t he patient's name and medical record number as [id number] labeled rig ht leg is a 2.5 x 0.6 cm pale mccarthy unoriented skin ellipse excised to a depth of 0.3 cm. There is a 1.0 x 0.1 cm ill-defined lesi on centrally located on the skin surface. ??The specimen is inked, s erially sectioned and submitted as follows A1 tips; A2 remaini ng specimen. HXDrm Exam [facility] See Comment POWERCH ART Comment: RESULT: A. Right Leg, Skin: Irr itated seborrheic keratosis HXDrm Exam [facility] See Comment POWERCH ART Comment: RESULT: 04/10/2011 12:27 ??Interpreted by: Francesco Spangler Report electronically signed by Inocencia Pendleton DO Transcribed by: [email or web address] 04/10/2011 12:10:17 Test Performed by: [facility] Dpt of Lab Med and Pathology [address] [place] [address] Advanced Practice Psychiatric Nurse: Michael marquis III, M.D. Specimen (Source) Anatomical Collection Method Collection Time Re ceived Time Location / / Volume Laterality Tissue 04/04/2011 11:00 AM CDT Apolonia Horn P.A.-C. LAB PATH DERM ORDERABLES Performing Organization Address City/State/ZIP Code Phon e Number POWERCHART documented in this encounter Visit Diagnoses Not on filedocumented in this encounter
--- OUTSIDE RECORDS SUMMARY | 2022-07-24 10:10 | XMS_ITS | Encounter Summary ---
:1940 Author Organization [facility] Address [address] [place] [address] Care Team Providers Name Role Phone Unavailable Primary Care Provider Unavailable Encounter Details Date Type Department Care Team Description 03/08/2014 Hospital Encounter HX [facility] FAMILYPRA Naomi Parker, MISA, C.N.P., D. N.P. [address] [place], [place] [address] (Wo rk) Social History [...] slept in a group home (including now)? Sex Assigned at Date [...] Body Mass Index 34.86 09/25/2013 8:26 AM HOLLOW WARE MAKER documented in this encounter Medications at [...] APRN, C.N.P. - 03/08/2014 9:00 AM CDT [id number] CHIEF COMPLAINT/REASON FOR VISIT Knee pain. HISTORY [...] SKINNER CNP On: 05/27/2014 06:10 PM Source: [facility] MHSDOLBEYNONRADSYS Document Id: [id number] documented in this encounter Miscellaneous Notes Miscellaneous - Jonathon Parker APRN, C.N.P. - 03/08/2014 10:54 AM CDT Results [...] Radiology XR Knee Left 3 views Source: [facility] [employer]CHART Document Id: [id number] Miscellaneous - Jonathon Parker APRN, C.N.P. - 03/08/2014 9:32 AM CDT Ambulatory Patient Summary [address] [id number] Visit Information Name: AINSLEY AGUAYO [facility] Number: [id number] Visit Date: 03/08/2014 09:32:58 Attending [...] nasal (Flonase 0.05 mg/inh nasal spray) 1 [place](s), Nostrils(Both), once a day ibuprofen (ibuprofen 200 [...] CNP Signed On:08-MAR-2014 09:32:42 Additional Information: Source: [facility] P[employer]CHART Document Id: [id number] Miscellaneous - Jonathon Parker APRN, C.N.P. - 03/08/2014 9:32 AM CDT Ambulatory Discharge Medication List [address] [id number] Visit Information Name: AINSLEY AGUAYO [facility] Number: [id number] Visit Date: 03/08/2014 09:32:56 Attending [...] nasal (Flonase 0.05 mg/inh nasal spray) 1 [place](s), Nostrils(Both), once a day ibuprofen (ibuprofen 200 [...] of emergency. Electronically Signed By: JONATHON SKINNER SYSTEM DESIGNER Signed On:08-MAR-2014 09:32:42 Additional Information: Source: [facility] POWERCHART Document Id: [id number] Miscellaneous - Stephen Rubin, L.P.N. - 03/08/2014 9:11 AM CDT Adult Gamma Ray Operator Intake/History Adult Gamma Ray Operator Intake/History Entered On: 03/08/2014 9:14 CDT Performed On: 03/08/2014 9:11 CDT by ERICHSEN, DWYN E HYDROGEOLOGIST Intake Chief Complaint : Left knee bothers [...] Preferred Communication Mode : Verbal Languages : [place] Verdean STEPHEN RUBIN LPN 03/08/2014 9:11 CDT Subjective Pain Symptoms : Yes STEPHEN RUBIN LPN 03/08/2014 9:11 CDT Pain Pain Assessment Grid Pain 1 Pain 2 Location : Knee Hand Laterality : Bilateral (Comment: left more than right. Hurts mosst with ROM [STEPHEN RUBIN LPN 03/08/2014 9:11 CDT] ) Left (Comment: inner [STEPHEN RUBIN LPN 03/08/2014 9:11 CDT] ) Intensity : 2 0 Duration : 1 week STEPHEN RUBIN LPN 03/08/2014 9:11 CDT STEPHEN RUBIN LPN 03/08/2014 9:11 CDT (Comment: Hurts as a 10/10 when you touch the area, if not touching it has no pain [STEPHEN RUBIN [facility] 03/08/2014 9:11 CDT] ) Dependent Habits Tobacco [...] 1 can diet soda STEPHEN RUBIN LPN 03/08/2014 9:11 CDT Recreational Drug Use Grid Drug Use : None STEPHEN RUBIN LPN 03/08/2014 9:11 CDT Source: [facility] POWERCHART Document Id: [id number] CDT!48 documented in this encounter Plan of [...] 03/08/2014 10:17 AM CDT Addenda Addendum by ProviderNed M.D. o n 03/08/2014 [...] moderate medial compartment degenerative change. Alison Farmer(R), RSilver(R)(M) IMG DIAGNOSTIC IM AGING PROCEDURES documented in this encounter Visit Diagnoses Not on filedocumented in this encounter
--- OUTSIDE RECORDS SUMMARY | 2022-07-24 10:10 | XMS_ITS | Encounter Summary ---
:1940 Author Organization [facility] Address [address] [place] [address] Care Team Providers Name Role Phone Unavailable Primary Care Provider Unavailable Encounter Details Date Type Department Care Team Description 09/03/2011 Hospital Encounter HX [facility] FBK[facility] FAMILYPRA Naomi Parker, MISA, C.N.P., D. N.P. [address] [place], [place] [address] (Wo rk) Social History [...] documented as of this encounter H&P Notes Elizabeth Parker APRN CAntwanN.P. - 09/03/2011 12:00 AM CST [id number] CHIEF COMPLAINT/ REASON FOR VISIT Annual medication [...] history of asthma. She also sees an certified ophthalmic medical technician at [facility]. Patient takes Flonase, albuterol, Claritin and Advair [...] understanding and accepts this plan. EMELY/sofy Signed Elizabeth Skinner CNP Nurse Practitioner Electronically Signed By: ELIZABETH SKINNER CNP On: 09/14/2011 11:46 AM Source: [facility] [employer]OL[employer]YNONRADSYS Document Id: [id number] ICER documented in this encounter Nursing Notes Conversion, Historical Provider Ser - 09/06/2011 10:36 AM CST Appointments at [facility] Document Contains Addenda Addendum by KVNG PAULINO LPN on 06 September 2011 10:48 CAKE ICER Bone Density : 10:am Mammogram: 11:15 am Modified by and Electronically Signed by: KVNG PAULINO LPN On: 09/06/2011 10:48 AM Appointments scheduled for [facility] : Mammogram screening & bone density screening 10/16/2011; along with Dermatology with Gonzalez Briceño, [facility] 5th floor, desk East 5 at 1:05 pm Electronically Signed By: KVNG PAULINO LPN On: 09/06/2011 10:39 AM Source: [email or web address] Document Id: [id number] documented in this encounter Miscellaneous Notes Miscellaneous - Elizabeth Parker APRN, CAntwanNAntwanP. - 09/04/2011 3:32 PM CAKE ICER Results Notification Document Contains Addenda Addendum by KVNG PAULINO LPN on 05 September 2011 15:04:05 CAKE ICER Stopped in given results. Addendum by KVNG PAULINO LPN on 04 September 2011 17:55:42 CAKE ICER Attempted to reach - no answer, will try again tomorrow. From: ELIZABETH SKINNER VARNISHING MACHINE OPERATOR To: KVNG PAULINO LPN Sent: 09/04/2011 15:32:59 CAKE ICER ! Show up: 09/04/2011 21:32:59 [facility] Subject: Results Notification Actions: Notify patient of results Due Date/Time: 09/04/2011 16:32:00 CAKE ICER Source: [employer] Document Id: [id number] Electronically signed by Conversion, [facility] Ladle Filler [id number] at 03/10/2017 12:23 PM CDT Elizabeth Paz APRN, C.N.P. - 09/03/2011 11:23 AM CAKE ICER Results Notification Document Contains Addenda Addendum by KVNG PAULINO LPN on 04 September 2011 15:18:55 CAKE ICER Return call received - will moss picker copy of results tomorrow - at front desk officer. Addendum by KVNG PAULINO LPN on 03 September 2011 17:07:43 CAKE ICER Attempted to reach - no answer, left voice message & # if further questions. From: ELIZABETH SKINNER CNP To: KVNG PAULINO LPN Sent: 09/03/2011 11:23:16 CAKE ICER ! Show up: 09/03/2011 17:23:16 [facility] Subject: Results Notification Actions: Notify patient of results Due Date/Time: 09/03/2011 12:22:00 CAKE ICER Source: [facility] [employer] Document Id: [id number] Electronically signed by Conversion, [facility] Ladle Filler [id number] at 03/10/2017 12:23 PM CDT Elizabeth Paz APRN, C.N.P. - 09/03/2011 11:00 AM CAKE ICER Quality Measures Quality Measures Entered On: 09/10/2011 8:48 CAKE ICER Performed On: 09/03/2011 11:00 CAKE ICER by ELIZABETH SKINNER CNP Asthma Asthma Control Test (ACT) Score : 24 ED visits past yr for asthma w/o hospital stay : 0 Hospitalizations/Overnight Stays in Past yr for Asthma : 0 Asthma Action Plan Provided/Reviewed : Reviewed with the patient Asthma Action Plan Copy : Scanned into EMR ELIZABETH SKINNER CNP - 09/10/2011 8:47 CAKE ICER Source: [facility] POWERCHART Document Id: [id number] CAKE ICER!7 ICER Miscellaneous - Conversion, Historical Provider Ser - 09/03/2011 8:38 AM CAKE ICER Adult Operations Manager/Coordinator Intake/History Adult Operations Manager/Coordinator Intake/History Entered On: 09/03/2011 8:40 CAKE ICER Performed On: 09/03/2011 8:38 CAKE ICER by KVNG PAULINO LPN Intake Temperature Oral : 36.7C(Converted to: 98.1DegF) Peripheral Pulse Rate : 64/min Respiratory Rate : 16/min Systolic Blood Pressure : 126mmHg Diastolic Blood Pressure : 74mmHg NIBP Mean : 91mmHg BP Location : Right upper extremity Heart Rhythm : Regular KVNG PAULINO LPN - 09/03/2011 8:40 CAKE ICER Chief Complaint : Refill meds Actual Weight : 85.7kg(Converted to: 188lb 15oz) Weight Source : Standing scale Dosing Weight Clinic : 85.70kg KVNG PAULINO LPN - 09/03/2011 8:38 CAKE ICER Subjective Pain Symptoms : No KVNG PAULINO LPN - 09/03/2011 8:38 CAKE ICER Dependent Habits Tobacco Use/Currently Using : No Tobacco Use/Last 12 months : No Smoking Status : Never smoker Alcohol Use : Yes KVNG PAULINO LPN - 09/03/2011 8:38 CAKE ICER Caffeine Use Grid Caffeine Use : Current Type : Coffee, Soft drinks Frequency : Daily Amount : 1 cup & 2 cans Last Use : yesterday after noon KVNG PAULINO LPN - 09/03/2011 8:38 CAKE ICER Recreational Drug Use Grid Drug Use : None KVNG PAULINO LPN 09/03/2011 8:38 CAKE ICER Allergy Allergies (Active) Cats Estimated Onset Date: [...] 04/13/2011 9:12 CDT Source: [facility] [employer] Document Id: [id number] CAKE ICER!10 documented in this encounter Plan of Treatment Not on filedocumented as of this encounter Visit Diagnoses Not on filedocumented in this encounter
--- OUTSIDE RECORDS SUMMARY | 2022-07-24 10:10 | XMS_ITS | Encounter Summary ---
:1940 Author Organization [facility] Address [address] [place] [address] Care Team Providers Name Role Phone Unavailable Primary Care Provider Unavailable Encounter Details Date Type Department Care Team Description 09/25/2013 Hospital Encounter HX [facility] FAMILYPRA Naomi Parker, MISA, C.N.P., D. N.P. [address] [place], [place] [address] (Wo rk) Social History [...] More than 4 times per year 03/16/2022 sikh services? Do you belong to any clubs [...] Comments Blood Pressure 130/78 09/25/2013 8:26 AM FAMILY MANAGER Pulse 84 09/25/2013 8:26 AM FAMILY MANAGER Temperature - - Respiratory Rate 16 09/25/2013 8:26 AM FAMILY MANAGER Oxygen Saturation - - Inhaled Oxygen Concentration - - Weight 91.9 kg (202 lb 9.6 oz) 09/25/2013 8:26 AM FAMILY MANAGER Height 162.9 cm (5' 4.13) 09/25/2013 8:26 AM FAMILY MANAGER Body Mass Index 34.63 09/25/2013 8:26 AM FAMILY MANAGER documented in this encounter Medications at [...] APRN, C.N.P. - 09/25/2013 8:13 AM CST [id number] CHIEF COMPLAINT/REASON FOR VISIT Annual medication renewal HISTORY OF PRESENT ILLNESS The patient is a 72-year-old female who presents to the clinic for her annual medication renewal. She denies fever, chills, nausea, vomiting, shortness of breath or chest pain. Patient does have history of asthma and is followed by [facility] street car mechanic. Patient did have a recent asthma exacerbation [...] does spend part of the winter in [place] from November to January. She exercises 4 [...] and she would like this ordered at [facility]. Patient was encouraged to exercise 30 minutes most days a week. Patient was encouraged follow a low-fat diet. Patient was encouraged to wear sunscreen when outside. 2. Asthma control is not indicated today. Patient will continue her prednisone prescribed by [place]. Patient states she is feeling better; however [...] SKINNER CNP On: 10/02/2013 08:06 AM Source: [facility] MHSDOLBEYNONRADSYS Document Id: [id number] LY MANAGER documented in this encounter Procedure Notes Stephen Rubin L.P.N. - 10/14/2013 1:57 PM CST Asthma Control Test (12 yrs and older) Asthma Control Test (12 yrs and older) Entered On: 10/28/2013 13:57 FAMILY MANAGER Performed On: 10/14/2013 13:57 FAMILY MANAGER by STEPHEN RUBIN ACT Past 4 weeks [...] : 23 STEPHEN RUBIN - 10/28/2013 13:57 FAMILY MANAGER Source: [employer] Document Id: [id number] FAMILY MANAGER!8 LY MANAGER Stephen Rubin L.P.N. - 09/25/2013 8:30 AM CST Asthma Control Test (12 yrs and older) Asthma Control Test (12 yrs and older) Entered On: 09/25/2013 8:31 FAMILY MANAGER Performed On: 09/25/2013 8:30 FAMILY MANAGER by STEPHEN RUBIN ACT Past 4 weeks [...] : 10 STEPHEN RUBIN - 09/25/2013 8:30 FAMILY MANAGER Source: [employer] Document Id: [id number] FAMILY MANAGER!8 LY MANAGER documented in this encounter Miscellaneous Notes Miscellaneous - Jonathon Parker APRN, C.N.P. - 09/28/2013 9:06 AM FAMILY MANAGER Results Notification From: JONATHON SKINNER CRANKSHAFT GRINDER To: DAVID Pascual [facility] Medicine Nurse; Sent: 09/28/2013 09:06:41 FAMILY MANAGER ! Show up: 09/28/2013 15:06:[address] [facility] Subject: Results Notification Actions: Notify [...] Sensitive-Campos 1.0 mIU/L (0.3-5.0 - ) Source: [facility] POWERCHART Document Id: [id number] Electronically signed by Conversion, [facility] Director Of Orthopedics [id number] at 03/06/2017 8:38 PM CDT Miscellaneous - Jonathon Parker APRN, C.N.P. - 09/25/2013 9:04 AM FAMILY MANAGER Ambulatory Patient Summary [facility] [address] [place] [address] Visit Information Name: AINSLEY AGUAYO [facility] Number: [id number] Visit Date: 09/25/2013 09:04:24 Attending [...] Shortness of breath / Wheezing Routed to [address] [id number] aspirin (aspirin 81 mg oral enteric coated tablet) 1 Tablet(s), Oral, once a day calcium-vitamin D (Calcium 600+D) 1 Tablet(s), Oral, three times a day chlorthalidone (chlorthalidone 25 mg oral tablet) 1 Tablet(s), Oral, once a day Routed to [address] [id number] fluticasone nasal (Flonase 0.05 mg/inh nasal spray) 1 [place](s), Nostrils(Both), once a day Routed [address] [id number] ibuprofen (ibuprofen 200 mg oral tablet) levothyroxine (Synthroid 75 mcg (0.075 mg) oral tablet) 1 Tablet(s), Oral, once a day Routed to [address] [id number] lisinopril (lisinopril 30 mg oral tablet) 1 Tablet(s), Oral, once a day Routed to [address] [id number] loratadine (Claritin 10 mg oral tablet) 1 Tablet(s), Oral, once a day as needed for Allergy symptoms montelukast (Singulair 10 mg oral tablet) 1 Tablet(s), Oral, every evening omega-3 polyunsaturated fatty acids (Fish Oil oral capsule) three times a day pravastatin (pravastatin 40 mg oral tablet) 1.5 Tablet(s), Oral, once a day (at bedtime) New Dose Routed to [address] [id number] predniSONE (predniSONE 10 mg oral tablet) See [...] in case of emergency. Additional Information: Source: [facility] POWERCHART Document Id: [id number] LY MANAGER Miscellaneous - Jonathon Parker APRN, C.N.P. - 09/25/2013 9:04 AM FAMILY MANAGER Ambulatory Depart Summary [address] [address] Visit Information Name: AINSLEY AGUAYO [facility] Number: [id number] Visit Date: 09/25/2013 09:04:20 Attending Provider: JONATHON SKINNER CNP Primary Care Provider: JONATHON SKINNER CRANKSHAFT GRINDER AINSLEY AGUAYOBETH has been given the following [...] Shortness of breath / Wheezing Routed to [address] [id number] aspirin (aspirin 81 mg oral enteric coated tablet) 1 Tablet(s), Oral, once a day calcium-vitamin D (Calcium 600+D) 1 Tablet(s), Oral, three times a day chlorthalidone (chlorthalidone 25 mg oral tablet) 1 Tablet(s), Oral, once a day Routed to [address] [id number] fluticasone nasal (Flonase 0.05 mg/inh nasal spray) 1 [place]lake(s), Nostrils(Both), once a day Routed [address] [id number] ibuprofen (ibuprofen 200 mg oral tablet) levothyroxine (Synthroid 75 mcg (0.075 mg) oral tablet) 1 Tablet(s), Oral, once a day Routed to [address] [id number] lisinopril (lisinopril 30 mg oral tablet) 1 Tablet(s), Oral, once a day Routed to [address] [id number] loratadine (Claritin 10 mg oral tablet) 1 Tablet(s), Oral, once a day as needed for Allergy symptoms montelukast (Singulair 10 mg oral tablet) 1 Tablet(s), Oral, every evening omega-3 polyunsaturated fatty acids (Fish Oil oral capsule) three times a day pravastatin (pravastatin 40 mg oral tablet) 1.5 Tablet(s), Oral, once a day (at bedtime) New Dose Routed to [facility] [address] [place], [place] [phone] predniSONE (predniSONE 10 mg oral tablet) See [...] in case of emergency. Additional Information: Source: [facility] POWERCHART Document Id: [id number] LY MANAGER Miscellaneous - Stephen Rubin, L.P.N. - 09/25/2013 9:00 AM CST PHQ-9 PHQ-9 Entered On: 09/25/2013 11:01 FAMILY MANAGER Performed On: 09/25/2013 9:00 FAMILY MANAGER by STEPHEN RUBIN PHQ-9 Little interest or [...] : Not difficult at all STEPHEN RUBIN - 09/25/2013 11:01 FAMILY MANAGER Source: [facility] POWERCHART Document Id: [id number] FAMILY MANAGER!13 LY MANAGER Miscellaneous - Jonathon Parker APRN, C.N.PAntwan - 09/25/2013 8:40 AM FAMILY MANAGER Reminder Msg Document Contains Addenda Addendum by STEPHEN RUBIN LPN on 04 January 2014 14:19:15 CDT completed. From: JONATHON SKINNER CRANKSHAFT GRINDER To: DAVID Pascual [facility] Medicine Nurse; Sent: 09/25/2013 08:40:11 FAMILY MANAGER Show up: 12/19/2013 08:38:00 CDT Subject: Reminder Msg Please Remember to: Please call patient and set up Mammogram in [facility]. (last one was 20 January 2014, so after this date) PATIENT: ( ) Call Patient ( ) Ask Patient to ( ) ( ) Call Relative ( ) Schedule Patient ( ) ( ) Call for Salon Supervisor ( ) Follow up on Results ( ) Other: PROVIDER: ( ) Call Physician ( ) Call Pharmacist ( ) Call Lab ( ) Other: Special Instructions: Comments: Source: [facility] POWERCHART Document Id: [id number] Electronically signed by Nikos [facility] Director Of Orthopedics [id number] at 03/06/2017 8:38 PM CDT Miscellaneous - Stephen Rubin, L.P.N. - 09/25/2013 8:26 AM CST Adult Cane Flume Watcher Intake/History Adult Cane Flume Watcher Intake/History Entered On: 09/25/2013 8:28 FAMILY MANAGER Performed On: 09/25/2013 8:26 FAMILY MANAGER by STEPHEN RUBIN Intake Chief Complaint : [...] 34.63 kg/m2 STEPHEN RUBIN - 09/25/2013 8:26 FAMILY MANAGER General Info Information Given By : Patient Languages : Hebrew STEPHEN RUBIN - 09/25/2013 8:26 FAMILY MANAGER Subjective Pain Symptoms : No STEPHEN RUBIN - 09/25/2013 8:26 FAMILY MANAGER Dependent Habits Tobacco Use/Currently Using : No Tobacco Use/Last 12 months : No Tobacco Use/Advised to Quit : No Exposure to Tobacco Smoke : Other: Never Smoked Smoking Status : Never smoker STEPHEN RUBIN - 09/25/2013 8:26 FAMILY MANAGER Caffeine Use Grid Caffeine Use : Current Type : Coffee, Soft drinks Frequency : Daily Amount : 1 cup & 2 cans STEPHEN RUBIN - 09/25/2013 8:26 FAMILY MANAGER Recreational Drug Use Grid Drug Use : None STEPHEN RUBIN - 09/25/2013 8:26 FAMILY MANAGER Source: [employer] Document Id: [id number] FAMILY MANAGER!37 LY MANAGER Miscellaneous - Stephen Rubin L.P.N. - 09/25/2013 8:26 AM CST Health Assessment Health Assessment Entered On: 09/25/2013 8:30 FAMILY MANAGER Performed On: 09/25/2013 8:26 FAMILY MANAGER by STEPHEN RUBIN Health Assessment Complete Health Assessment Complete or Modified : Annual Health Assessment Annual Health Assessment Completed : Yes STEPHEN RUBIN - 09/25/2013 8:26 FAMILY MANAGER Nutrition Nutrition Risk Factors by History Adult : None STEPHEN RUBIN - 09/25/2013 8:26 FAMILY MANAGER Functional Current Daily Living Assistance : None STEPHEN RUBIN - 09/25/2013 8:26 FAMILY MANAGER Dependent Habits Tobacco Use/Currently Using : No Tobacco Use/Last 12 months : No Tobacco Use/Advised to Quit : No Exposure to Tobacco Smoke : Other: Never Smoked Smoking Status : Never smoker Alcohol Use : Yes STEPHEN RUBIN - 09/25/2013 8:26 FAMILY MANAGER Caffeine Use Grid Caffeine Use : Current Type : Soft drinks Frequency : Daily Amount : 1 can diet soda STEPHEN RUBIN - 09/25/2013 8:26 FAMILY MANAGER Recreational Drug Use Grid Drug Use : None STEPHEN RUBIN - 09/25/2013 8:26 FAMILY MANAGER AUDIT Tool How Often Do You Have A Drink : 2 to 4 times a month How Many Drinks in a Day When Drinking : 1 or 2 Six or More Drinks On One Occassion : Never Audit Phase 1 Score : 2 STEPHEN RUBIN - 09/25/2013 8:26 FAMILY MANAGER Psychosocial Domestic Abuse Concerns : None Marital Status : Years of Marriage : 3 Number of Children : 1 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 STEPHEN RUBIN - 09/25/2013 8:26 FAMILY MANAGER Advance Directive Advanced Directives : No STEPHEN RUBIN - 09/25/2013 8:26 FAMILY MANAGER Educ Needs Learning Style Preference Adult Grid Patient : Demonstration, Printed materials, Verbal explanation, Video/Educational TV Family : Demonstration, Printed materials, Verbal explanation, Video/Educational TV STEPHEN RUBIN - 09/25/2013 8:26 FAMILY MANAGER Source: [facility] POWERCHART Document Id: [id number] FAMILY MANAGER!42 LY MANAGER documented in this encounter Plan of Treatment Not on filedocumented as of this encounter Procedures Procedure Name Priority Date/Time Associated Comments Diagnosis LIPID PANEL, S Routine 09/25/2013 9:39 Results fo r this AM FAMILY MANAGER procedure are i n the results section. THYROID FUNCTION Routine 09/25/2013 9:39 Results for this CASCADE, S AM FAMILY MANAGER procedure are i n the results section. ASPARTATE Routine 09/25/2013 9:39 Results for this AMINOTRANSFERASE (AST), AM FAMILY MANAGER proc edure are in S/P the results section. BASIC METABOLIC PANEL, Routine 09/25/2013 9:39 Re sults for this S/P AM FAMILY MANAGER procedure are i n the results section. documented in this encounter Results Thyroid Function [place] (09/25/2013 9:39 AM FAMILY MANAGER) athologist Signature TSH, Sensitive 1.0 0.3 - 5.0 POWERCHART MIUL Comment: Test Performed by: [place] [address] Auto Accessories Installer: Michael marquis III, M.D. Specimen (Source) Anatomical Collection Method Collection Time Re ceived Time Location / / Volume Laterality Blood 09/25/2013 9:39 AM FAMILY MANAGER Jonathon Parker APRN, C.N.P., D.N.P. LAB BLOOD ADD-ON Performing Organization Address City/State/ZIP Code Phon e Number POWERCHART (ABNORMAL) BMP (Basic Metabolic Panel) (09/25/2013 9:39 AM FAMILY MANAGER) P athologist Signature BUN (Blood Urea 16 6 [...] / Volume Laterality Blood 09/25/2013 9:39 AM FAMILY MANAGER Jonathon Parker APRN, C.N.P., D.N.P. LAB BLOOD ADD-ON Performing Organization Address City/State/ZIP Code Phon e Number POWERCHART AST (Aspartate Aminotransferase) (09/25/2013 9:39 AM FAMILY MANAGER) [facility] Time Signature Aspartate 18 8 - 43 POWERCHART Aminotransferase UNITL (AST), S Specimen (Source) Anatomical Collection Method Collection Time Re ceived Time Location / / Volume Laterality Blood 09/25/2013 9:39 AM FAMILY MANAGER Jonathon Parker APRN, C.N.P., D.N.P. LAB BLOOD ADD-ON Performing Organization Address City/State/ZIP Code Phon e Number POWERCHART (ABNORMAL) Lipid Panel (09/25/2013 9:39 AM FAMILY MANAGER) [facility] Method Time Signature Cholesterol, Total 178 0 - 200 POWERCHART MGDL HX HDL 42.0 40.0 - POWERCHART 60.0 MGDL Triglycerides 172 (H) 0 - 150 POWERCHART MGDL Calculated LDL 102 (H) 0 - 100 POWERCHART MGDL Specimen (Source) Anatomical Collection Method Collection Time Re ceived Time Location / / Volume Laterality Blood 09/25/2013 9:39 AM FAMILY MANAGER Jonathon Parker APRN, C.N.P., D.N.P. LAB BLOOD ADD-ON Performing Organization Address City/State/ZIP Code Phon e Number POWERCHART documented in this encounter Visit Diagnoses Not on filedocumented in this encounter
--- OUTSIDE RECORDS SUMMARY | 2022-07-24 10:10 | XMS_ITS | Encounter Summary ---
:1940 Author Organization [facility] Address [address] [place] [address] Care Team Providers Name Role Phone Unavailable [...] Chi C.N.P. - 02/05/2011 12:00 AM CDT [id number] IMPRESSION/REPORT/PLAN 1. Asthma. ACT score today is an 11. I did review asthma action plan with her today and she will continue on her Prednisone up through 7 days. She will follow up if gets worse with wheezing or shortness of breath. She will also follow up in one month either here or with her primary at [facility] for recheck of her asthma and to [...] flare up. She was recently in the [facility] with her son who has cats and she did get what she calls an asthma flare. She started prednisone 20 mg daily and is currently on day 6 of that. She will continue for one more day per the recommendation of her physician at [facility]. She is also continuing to use Albuterol as well. She does [place] for her primary care and for her [...] MICHELLE CHI CNP On: 02/08/2011 08:21 Source: [facility] MHSDOLBEYNONRADSYS Document Id: [id number] documented in this encounter Miscellaneous Notes Miscellaneous [...] CHI CNP - 02/05/2011 16:39 CDT Source: [facility] POWERCHART Document Id: [id number] CDT!5 Miscellaneous - Michelle Chi C.N.P. - 02/05/2011 4:32 PM CDT Ambulatory Patient Summary [address] [address] Visit Information Name: ELISE GANDHI Current Date: [...] No Appointments found Your Goals/Additional instructions: Source: [facility] POWERCHART Document Id: [id number] Electronically signed by Conversion, [facility] Transportation Services Representative [id number] at 03/10/2017 6:33 PM CDT Miscellaneous - Michelle Chi, C.N.P. - 02/05/2011 4:32 PM CDT Ambulatory Depart Summary [address] [address] Visit Information Name: ELISE GANDHI Current Date: 02/05/2011 16:32:14 Primary Care Provider: MICHELLE CHI [facility] ELISE GANDHI has been given the following [...] not getting better. either follow up at [place] or here in one month for recheck of the asthma action plan. Yes - Current list of reconciled medications is provided and explained to the patient and/or family, guardian/caregiver. Source: [facility] POWERCHART Document Id: [id number] Electronically signed by Conversion, [facility] Transportation Services Representative [id number] at 03/10/2017 6:33 PM CDT Miscellaneous - Conversion, Historical Provider Ser - 02/05/2011 4:00 PM CDT Adult Orchestra Teacher Intake/History Adult Orchestra Teacher Intake/History Entered On: 02/05/2011 16:05 CDT Performed [...] Use: about 2:30 pm KVNG PAULINO LPN - 02/05/2011 16:00 CDT Recreational Drug Use Grid Drug Use: None KVNG PAULINO LPN - 02/05/2011 16:00 CDT Allergy Allergies (Active) Cats [...] MD; Reviewed Date: 02/05/2011 15:57 CDT [facility] Document Id: [id number] CDT!33 documented in this encounter Plan of Treatment Not on filedocumented as of this encounter Visit Diagnoses Not on filedocumented in this encounter
--- OUTSIDE RECORDS SUMMARY | 2022-07-24 10:10 | XMS_ITS | Encounter Summary ---
:1940 [address] Organization [facility] Address [address] [place] [address] Care Team Providers Name Role Phone Unavailable Primary Care Provider Unavailable Encounter Details Date Type Department Care Team Description 09/12/2012 Hospital Encounter HX [facility] Srinivas Andrade M.D. [address] [place], [place] [address] (Wo rk) Social History Tobacco [...] Parker APRN, C.N.P. - 09/14/2012 7:16 PM VOICE PROFESSOR Results Notification Document Contains Addenda Addendum by PIYUSH ALVAREZ on 16 September 2012 15:31:28 VOICE PROFESSOR Notified From: ELIZABETH POTTER BIOPHYSICS PROFESSOR To: DAVID Pascual Nurse Sent: 09/14/2012 19:16:56 VOICE PROFESSOR ! Show up: 09/15/2012 01:16:56 RUST Subject: Results Notification Actions: Notify patient-refer to General Message Source: [facility] POWERCHART Document Id: [id number] Electronically signed by Nikos [facility] Pharmacy Aide [id number] at 03/10/2017 12:45 AM CDT Miscellaneous - Elizabeth Parker APRN, C.N.P. - 09/12/2012 11:55 AM VOICE PROFESSOR Results Notification Document Contains Addenda Addendum by PIYUSH ALVAREZ on 16 September 2012 15:18:41 VOICE PROFESSOR Spoke with patient. She will warp picker a paper copy of rx and is also requesting lab results to be printed. Will leave at the restaurant front manager for her to warp picker. Addendum by TITA CALDWELL on 15 September 2012 17:11:13 VOICE PROFESSOR Unable to reach faxed RX to [facility]. From: ELIZABETH POTTER BIOPHYSICS PROFESSOR To: DAVID Pascual Nurse Sent: 09/12/2012 11:55:31 VOICE PROFESSOR ! Show up: 09/12/2012 17:55:31 RUST Subject: Results Notification Actions: Notify patient-refer to General Message Source: [facility] POWERCHART Document Id: [id number] Electronically signed by Conversion, [facility] Pharmacy Aide [id number] at 03/10/2017 12:45 AM CDT documented in this encounter Plan of Treatment Not on filedocumented as of this encounter Procedures Procedure Name Priority Date/Time Associated Comments Diagnosis LIPID PANEL, S Routine 09/12/2012 9:36 Results fo r this AM VOICE PROFESSOR procedure are i n the results section. ASPARTATE Routine 09/12/2012 9:36 Results for this AMINOTRANSFERASE (AST), AM VOICE PROFESSOR proc edure are in S/P the results section. THYROID-STIMULATING Routine 09/12/2012 9:36 Resul ts for this HORMONE-SENSITIVE AM VOICE PROFESSOR procedure are in (S-TSH) the results section. BASIC METABOLIC PANEL, Routine 09/12/2012 9:36 Re sults for this S/P AM VOICE PROFESSOR procedure are i n the results section. documented in this encounter Results Thyroid-Stimulating Hormone-Sensitive (s-TSH) (09/12/2012 9:36 AM VOICE PROFESSOR) athologist Signature TSH, Sensitive 1.2 0.3 - 5.0 POWERCHART MIYENNY Comment: Test Performed by: [address] [address] Photographer Motion Picture: Michael marquis III, M.D. Specimen (Source) Anatomical Collection Method Collection Time Re ceived Time Location / / Volume Laterality Blood 09/12/2012 9:36 AM VOICE PROFESSOR Abelardo Bullock APRN.N.P., D.N.P. LAB BLOOD ADD-ON Performing Organization Address City/State/ZIP Code Phon e Number POWERCHART AST (Aspartate Aminotransferase) (09/12/2012 9:36 AM VOICE PROFESSOR) [facility] gist Method Time Signature Aspartate 24 8 - 43 POWERCHART Aminotransferase UNITL (AST), S Specimen (Source) Anatomical Collection Method Collection Time Re ceived Time Location / / Volume Laterality Blood 09/12/2012 9:36 AM VOICE PROFESSOR Abelardo Bullock APRN.N.P., D.N.P. LAB BLOOD ADD-ON Performing Organization Address City/State/ZIP Code Phon e Number POWERCHART (ABNORMAL) Lipid Panel (09/12/2012 9:36 AM VOICE PROFESSOR) [facility] gist Method Time Signature Cholesterol, Total 190 0 - 200 POWERCHART MGDL HX HDL 47.0 40.0 - POWERCHART 60.0 MGDL Triglycerides 124 0 - 150 POWERCHART MGDL Calculated LDL 118 (H) 0 - 100 POWERCHART MGDL Specimen (Source) Anatomical Collection Method Collection Time Re ceived Time Location / / Volume Laterality Blood 09/12/2012 9:36 AM VOICE PROFESSOR Elizabeth Parker APRN C.N.P., D.N.P. LAB BLOOD ADD-ON Performing Organization Address City/State/ZIP Code Phon e Number POWERCHART BMP (Basic Metabolic Panel) (09/12/2012 9:36 AM VOICE PROFESSOR) P athologist Signature BUN (Blood Urea 17 [...] / Volume Laterality Blood 09/12/2012 9:36 AM VOICE PROFESSOR Elizabeth Parker APRN, C.N.P., D.N.P. LAB BLOOD ADD-ON Performing Organization Address City/State/ZIP Code Phon e Number POWERCHART documented in this encounter Visit Diagnoses Not on filedocumented in this encounter
--- OUTSIDE RECORDS SUMMARY | 2022-07-24 10:10 | XMS_ITS | Encounter Summary ---
:1940 Author Organization [facility] Address [address] [place] [address] Care Team Providers Name Role Phone Unavailable Primary Care Provider Unavailable Encounter Details Date Type Department Care Team Description 07/01/2013 Hospital Encounter [facility]X [facility] Elizabeth Parker, MISA, C.N.P., D.N.P. [address] [place], [place] [address] (Wo rk) Social History [...] : Negative Test Strip Lot # : [id number] Test Strip Expiration Date : TITA CALDWELL - 07/01/2013 15:50 CDT Source: [employer] Document Id: [id number] CDT!16 documented in this encounter Nursing Notes Conversion, Historical Provider Ser - 07/01/2013 3:52 PM CDT Nurse Only [...] Positive : Yes Patient Treated : Yes TIAT CALDWELL - 07/01/2013 15:52 CDT UTI Fever Fever : No Low back pain : No Under 18 years of age : No Greater than 3 UTI's in past year : No First time with UTI symptoms : No Unusual vaginal discharge : No Nausea/Vomiting : No : No Abdominal pain : No TITA CALDWELL - 07/01/2013 15:52 CDT Source: [employer] Document Id: [id number] [id number]!22 documented in this encounter Plan of [...] Provider LAB POCT ORDERABLES-MANUAL Performing Organization Address City/[facility]/ZIP Code Phon e Number POWERCHART Dipstick, POCT, Urine (lab) (07/01/2013 3:51 PM CDT) athologist Signature Specific 1.030 POWERCHART [place], POCT, U Specimen (Source) Anatomical Collection Method Collection Time Re ceived Time Location / / Volume Laterality 07/01/2013 3:51 PM CDT Historical Provider LAB POCT ORDERABLES - DEVICE Performing Organization Address [facility] Phon e Number POWERCHART Dipstick, POCT, Urine (lab) (07/01/2013 3:51 PM CDT) athologist Signature Blood, POCT, U 3+ LARGE POWERCHART Specimen (Source) Anatomical Collection Method Collection Time Re ceived Time Location / / Volume Laterality 07/01/2013 3:51 PM CDT Historical Provider LAB POCT ORDERABLES - DEVICE Performing Organization Address [facility] Phon e Number POWERCHART Dipstick, POCT, Urine (lab) (07/01/2013 3:51 PM CDT) athologist Signature pH, POCT, Urine 6.0 POWERCHART Specimen (Source) Anatomical Collection Method Collection Time Re ceived Time Location / / Volume Laterality 07/01/2013 3:51 PM CDT Historical Provider LAB POCT ORDERABLES - DEVICE Performing Organization Address [facility] Code Phon e Number POWERCHART Dipstick, POCT, Urine (lab) (07/01/2013 3:51 PM CDT) Analysis Performed At Patho logist Time Signature Protein, POCT, 2+ (100 POWERCHART U mg/dl) Specimen (Source) Anatomical Collection Method Collection Time Re ceived Time Location / / Volume Laterality 07/01/2013 3:51 PM CDT Historical Provider LAB POCT ORDERABLES - DEVICE Performing Organization Address [facility]/ZIP Code Phon e Number POWERCHART Dipstick, POCT, Urine (lab) (07/01/2013 3:51 PM CDT) Analysis Performed At Patho logist Time Signature Urobilinogen, 0.2 mg/dl POWERCHART POCT, Urine Specimen (Source) Anatomical Collection Method Collection Time Re ceived Time Location / / Volume Laterality 07/01/2013 3:51 PM CDT Historical Provider LAB POCT ORDERABLES - DEVICE Performing Organization Address [facility] Phon e Number POWERCHART HX UA NITRITE POC (07/01/2013 3:51 PM CDT) P athologist Signature Nitrites, Positive POWERCHART POCT, U Specimen (Source) Anatomical Collection Method Collection Time Re ceived Time Location / / Volume Laterality 07/01/2013 3:51 PM CDT Historical Provider LAB HISTORICAL ORDERS Performing Organization Address [facility] Phon e Number POWERCHART Dipstick, POCT, Urine (lab) (07/01/2013 3:51 PM CDT) [facility] gist Method Time Signature Leukocytes, 2+ Moderate POWERCHART POCT, U Specimen (Source) Anatomical Collection Method Collection Time Re ceived Time Location / / Volume Laterality 07/01/2013 3:51 PM CDT Historical Provider LAB POCT ORDERABLES - DEVICE Performing Organization Address [facility] Phon e Number POWERCHART HX UA APPEAR POC (07/01/2013 3:51 PM CDT) P athologist Signature Appearance Cloudy POWERCHART Specimen (Source) Anatomical Collection Method Collection Time Re ceived Time Location / / Volume Laterality 07/01/2013 3:51 PM CDT Historical Provider LAB HISTORICAL ORDERS Performing Organization Address [facility] Phon e Number POWERCHART Dipstick, POCT, Urine (lab) (07/01/2013 3:51 PM CDT) P athologist Signature Color Yellow POWERCHART Specimen (Source) Anatomical Collection Method Collection Time Re ceived Time Location / / Volume Laterality 07/01/2013 3:51 PM CDT Historical Provider LAB POCT ORDERABLES - DEVICE Performing Organization Address [facility] Phon e Number POWERCHART documented in this encounter Visit Diagnoses Not on filedocumented in this encounter
--- OUTSIDE RECORDS SUMMARY | 2022-07-24 10:10 | XMS_ITS | Encounter Summary ---
:1940 Author Organization [facility] Address [address] [place] [address] Care Team Providers Name Role Phone Unavailable Primary Care Provider Unavailable Encounter Details Date Type Department Care Team Description 10/04/2011 Hospital Encounter [facility]X [facility] FAMILYPRA Naomi Parker, MISA, C.N.P., D. N.P. [address] [place], [place] [address] (Wo rk) Social History [...] APRN, C.N.P. - 10/04/2011 12:00 AM CST [id number] CHIEF COMPLAINT/ REASON FOR VISIT Asthma exacerbation. HISTORY OF PRESENT ILLNESS The patient is a 70-year-old female who presents to the clinic for an asthma exacerbation. Patient was having coughing attacks and shortness of breath. Patient was wheezing. She is seen at [facility] at the allergy and asthma clinic. Yesterday she called them and she began taking her prednisone 40 milligrams for 5 days. She has been using her albuterol inhaler. She is now requesting Tessalon Perles at nighttime to help with sleep. She did not tolerate Robitussin with codeine. She also has a history of a recent UTI after returning from [facility] for a mission trip. She started Cipro [...] continue her prednisone given to her from [facility] from her asthma action plan. She will [...] SKINNER CNP On: 10/09/2011 08:58 AM Source: [facility] MHSDOLBEYNONRADSYS Document Id: [id number] LIANCE ASSOCIATE documented in this encounter Nursing Notes Conversion, Historical Provider Ser - 10/19/2011 12:53 PM CST Urine culture sensatives received Notified patient (by cell #) of need to change antibotic again - not normal strain of E-coli seen here; not sensitive to either antibotics given, now have sensative received to changed new antibotic that it is sensative to. Prescription sent to [facility] Electronically Signed By: KVNG PAULINO LPN On: 10/19/2011 12:56 PM Source: [facility] POWERCHART Document Id: [id number] documented in this encounter Miscellaneous Notes Miscellaneous - Elizabeth Parker APRN, C.N.P. - 10/04/2011 10:19 AM COMPLIANCE ASSOCIATE Ambulatory Patient Summary [address] [address] Visit Information Name: ELISE GANDHI Current Date: [...] No Appointments found Your Goals/Additional instructions: Source: [facility] POWERCHART Document Id: [id number] LIANCE ASSOCIATE Miscellaneous - Elizabeth Parker APRN, C.N.P. - 10/04/2011 10:19 AM COMPLIANCE ASSOCIATE Ambulatory Depart Summary [address] [address] Visit Information Name: ELISE GANDHI [...] 200 mg oral tablet) Additional Information: Source: [facility] POWERCHART Document Id: [id number] LIANCE ASSOCIATE Miscellaneous - Conversion, Historical Provider Ser - 10/04/2011 9:55 AM COMPLIANCE ASSOCIATE Adult Nicu Rn Intake/History Adult Nicu Rn Intake/History Entered On: 10/04/2011 9:57 COMPLIANCE ASSOCIATE Performed On: 10/04/2011 9:55 COMPLIANCE ASSOCIATE by PRAKASH ACEVEDO Intake Chief Complaint : [...] : 87.60kg PRAKASH ACEVEDO - 10/04/2011 9:55 COMPLIANCE ASSOCIATE Subjective Pain Symptoms : No PRAKASH ACEVEDO - 10/04/2011 9:55 COMPLIANCE ASSOCIATE Dependent Habits Tobacco Use/Currently Using : No Smoking Status : Never smoker Alcohol Use : Yes PRAKASH ACEVEDO - 10/04/2011 9:55 COMPLIANCE ASSOCIATE Caffeine Use Grid Caffeine Use : Current Type : Coffee, Soft drinks Frequency : Daily Amount : 1 cup & 2 cans Last Use : yesterday after noon PRAKASH ACEVEDO - 10/04/2011 9:55 COMPLIANCE ASSOCIATE Recreational Drug Use Grid Drug Use : None PRAKASH ACEVEDO - 10/04/2011 9:55 COMPLIANCE ASSOCIATE Allergy Allergies (Active) Cats Estimated Onset Date: [...] MD; Reviewed Date: 04/13/2011 9:12 CDT Source: [facility] POWERCHART Document Id: [id number] COMPLIANCE ASSOCIATE!33 documented in this encounter Plan of Treatment Not on filedocumented as of this encounter Visit Diagnoses Not on filedocumented in this encounter
--- OUTSIDE RECORDS SUMMARY | 2022-07-24 10:10 | XMS_ITS | Encounter Summary ---
:1940 Author Organization [facility] Address [address] [place] [address] Care Team Providers Name Role Phone Unavailable Primary Care Provider Unavailable Encounter Details Date Type Department Care Team Description 03/31/2014 Hospital Encounter [facility]X [facility] FAMILYPRA Naomi Parker, MISA, C.N.P., D. N.P. [address] [place], [place] [address] (Wo rk) Social History [...] or relatives? How often do you attend zoroastrianism or More than 4 times per year 03/16/2022 buddhist services? Do you belong to any clubs or Yes 03/16/2022 organizations such as zoroastrianism groups, unions, fraternal or athletic groups, or [...] RUBIN LPN - 03/31/2014 10:56 CDT [facility] POWERCHART Document Id: [id number] CDT!7 Miscellaneous - Joshua Rubin L.P.N. - [...] RUBIN LPN - 03/31/2014 10:55 CDT Source: [employer] Document Id: [id number] CDT!10 documented in this encounter Plan of Treatment Not on filedocumented as of this encounter Visit Diagnoses Not on filedocumented in this encounter
--- OUTSIDE RECORDS SUMMARY | 2022-07-24 10:10 | XMS_ITS | Encounter Summary ---
:1940 Author Organization [facility] Address [address] [place] [address] Care Team Providers Name Role Phone Unavailable Primary Care Provider Unavailable Encounter Details Date Type Department Care Team Description 09/24/2012 Hospital Encounter HX [facility] FAMILYPRA Naomi Parker, MISA, C.N.P., D. N.P. [address] [place], [place] [address] (Wo rk) Social History [...] Comments Blood Pressure 130/80 09/24/2012 8:34 AM PERSONAL COMPUTER SPECIALIST Pulse - - Temperature - - Respiratory [...] Nurse Only Documentation Entered On: 09/24/2012 8:33 PERSONAL COMPUTER SPECIALIST Performed On: 09/24/2012 8:33 PERSONAL COMPUTER SPECIALIST by TITA CALDWELL Vitals/Ht/Wt Systolic Blood Pressure : 152mmHg (HI) Diastolic Blood Pressure : 92mmHg (>HHI) NIBP Mean : 112mmHg BP Location : Right upper extremity Blood Pressure Cuff Size : Regular TITA CALDWELL - 09/24/2012 8:33 PERSONAL COMPUTER SPECIALIST Allergy Allergies (Active) Cats Estimated Onset Date: Unspecified ; Reactions: unknown ; Created By: PHILLIP JARAMILLO MD; Reaction Status: Active ; Category: Other ; Substance: Cats ; Type: Allergy ; Updated By: PHILLIP JARAMILLO; Reviewed Date: 09/12/2012 8:34 PERSONAL COMPUTER SPECIALIST Dust Mite Estimated Onset Date: Unspecified ; Created By: KVNG PAULINO LPN; Reaction Status: Active ; Category: Drug ; Substance: Dust Mite ; Type: Allergy ; Updated By: KVNG PAULINO LPN; Reviewed Date: 09/12/2012 8:34 PERSONAL COMPUTER SPECIALIST prochlorperazine Estimated Onset Date: Unspecified ; Reactions: unknown ; Created By: BRAD JARAMILLO MD; Reaction Status: Active ; Category: Drug ; Substance: prochlorperazine ; Type: Allergy ; Updated By: PHILLIP JARAMILLO MD; Reviewed Date: 09/12/2012 8:34 PERSONAL COMPUTER SPECIALIST Source: [facility] POWERCHART Document Id: [id number] documented in this encounter Miscellaneous Notes Miscellaneous - Conversion, Historical Provider Ser - 12/23/2012 11:27 AM CDT Medication Refill Msg Document Contains Addenda Addendum by EBEN JC on 23 December 2012 14:53:55 CDT Rx faxed to pharmacy. Addendum by JONATHON POTTER CNP on 23 December 2012 11:56:58 CDT From: JONATHON POTTER CNP To: DAVID Pascual [facility] Medicine Nurse; Sent: 12/23/2012 11:56:58 CDT Subject: FW: Medication Refill Msg Need to refax. She wanted 90 instead of 30 From: KARELY CHOW To: JONATHON POTTER CNP; Sent: 12/23/2012 11:27:19 CDT Subject: Medication Refill Msg Caller is: ( ) Patient ( ) Mother ( ) Father ( ) Spouse ( ) Daughter ( ) Son ( ) Pharmacy ( ) Other: Provider: Pharmacy: [facility] fax# [phone] Name of Medications Needing Refill: Chlorthalidone 25mg tab - patient is requesting 90 day refill. Last refill 12/22/12, #30 Last Refill Date: Additional Information: Last / Future Appointment: Disposition: ( ) Send to Pharmacy ( ) Call to Pharmacy ( ) Patient will picking supervisor Script ( ) Mail Rx to Patient Source: [facility] FNZ Document Id: [id number] Miscellaneous - Conversion, Historical Provider Ser - 09/24/2012 3:14 PM PERSONAL COMPUTER SPECIALIST General Message Document Contains Addenda Addendum by KARELY CHOW on 24 September 2012 16:02:46 PERSONAL COMPUTER SPECIALIST From: KARELY CHOW To: JONATHON POTTER CNP; Sent: 09/24/2012 16:02:46 PERSONAL COMPUTER SPECIALIST Subject: RE: General Message Thanks! Addendum by JONATHON POTTER CNP on 24 September 2012 15:58:34 PERSONAL COMPUTER SPECIALIST From: JONATHON POTTER CNP To: KARELY CHOW; Sent: 09/24/2012 15:58:34 PERSONAL COMPUTER SPECIALIST Subject: RE: General Message Called in 30 day supply to [facility]. From: KARELY CHOW To: JONATHON POTTER CNP; Sent: 09/24/2012 15:14:51 PERSONAL COMPUTER SPECIALIST Subject: General Message Patient requesting med refills for Lisinopril, levothyroxine, Atenolol from [facility] pharmacy. Looks like her meds were printed off on 09/12/12 but cannot tell if pt has hardcopies or if they were faxed toa pharmacy. Called [facility] and they are confused as well since they do not have a current rx for the meds requested. Source: [facility] TechozCHART Document Id: [id number] Miscellaneous - Conversion, Historical Provider Ser - 09/24/2012 8:34 AM PERSONAL COMPUTER SPECIALIST Ambulatory Vitals Height Weight Ambulatory Vitals Height Weight Entered On: 09/24/2012 8:35 PERSONAL COMPUTER SPECIALIST Performed On: 09/24/2012 8:34 PERSONAL COMPUTER SPECIALIST by TITA CALDWELL Vitals/Ht/Wt Systolic Blood Pressure : 130mmHg Diastolic Blood Pressure : 80mmHg NIBP Mean : 97mmHg BP Location : Right upper extremity Blood Pressure Cuff Size : Regular TITA CALDWELL - 09/24/2012 8:34 PERSONAL COMPUTER SPECIALIST [facility] [employer] Document Id: [id number] documented in this encounter Plan of Treatment Not on filedocumented as of this encounter Visit Diagnoses Not on filedocumented in this encounter
--- OUTSIDE RECORDS SUMMARY | 2022-07-24 10:10 | XMS_ITS | Encounter Summary ---
:1940 Author Organization [facility] Address [address] [place] [address] Care Team Providers Name Role Phone Unavailable Primary Care Provider Unavailable Encounter Details Date Type Department Care Team Description 10/17/2011 Hospital Encounter HX [facility] Srinivas Andrade M.D. [address] [place], [place] [address] (Wo rk) Social History [...] or relatives? How often do you attend jew or More than 4 times per year 03/16/2022 confucianism services? Do you belong to any clubs or Yes 03/16/2022 organizations such as jew groups, unions, fraternal or athletic groups, or [...] Miscellaneous - Elizabeth Parker APRN, C.N.P. - 10/17/2011 11:26 AM GROUND CREWMAN AIRCRAFT SUPPORT Results Notification Document Contains Addenda Addendum by KVNG PAULINO LPN on 17 October 2011 16:44:20 GROUND CREWMAN AIRCRAFT SUPPORT Spoke with patient earlier & given below results & information prescription sent to [facility] From: ELIZABETH POTTER DAY HABILITATION SPECIALIST To: KVNG PAULINO LPN Sent: 10/17/2011 11:26:03 GROUND CREWMAN AIRCRAFT SUPPORT ! Show up: 10/17/2011 17:26:03 [facility] Subject: Results Notification Actions: Notify patient of results Source: [facility] POWERCHART Document Id: [id number] Electronically signed by Conversion, [facility] Program Strategist [id number] at 03/09/2017 1:23 PM CDT documented in this encounter Plan of Treatment Not on filedocumented as of this encounter Procedures Procedure Name Priority Date/Time Associated Diagnosis Comme nts DIPSTICK, U Routine 10/17/2011 9:09 AM Results f or this GROUND CREWMAN AIRCRAFT SUPPORT procedure are i n the results section. BACTERIAL CULTURE, Routine 10/17/2011 9:09 AM Res ults for this AEROBIC, URINE GROUND CREWMAN AIRCRAFT SUPPORT procedure are in the results section. documented in this encounter Results (ABNORMAL) Dipstick, Urine (10/17/2011 9:09 AM GROUND CREWMAN AIRCRAFT SUPPORT) [facility] Method Time Signature Source Clean Void POWERCHART Urine HXUr Color Yellow POWERCHART Appearance Cloudy (A) POWERCHART Glucose Negative Negative POWERCHART HXBILIRUBIN Negative Negative POWERCHART Ketones, QL(U) Negative Negative POWERCHART Specific 1.020 1.020 POWERCHART [place], POCT, U HXBLOOD Small (A) Negative POWERCHART pH, POCT, Urine 6.0 5.0 - 8.0 POWERCHART Protein, Ur, Dip Negative Negative POWERCHART Urobilinogen 0.2 0.2 - 1.0 POWERCHART HXNITRITE Positive (A) Negative POWERCHART Leukocyte Large (A) Negative POWERCHART Esterase Specimen (Source) Anatomical Collection Method Collection Time Re ceived Time Location / / Volume Laterality Urine 10/17/2011 9:09 AM GROUND CREWMAN AIRCRAFT SUPPORT Elizabeth Parker APRN, C.N.P., D.N.P. LAB URINE ORDERA BLES Performing Organization Address City/State/ZIP Code Phon e Number POWERCHART Bacterial Culture, Aerobic, Urine (10/17/2011 9:09 AM GROUND CREWMAN AIRCRAFT SUPPORT) [facility] Method Time Signature Bacterial POWERCHART Culture, Aerobic, Urine HXFinal See POWERCHART scanned/paper report. Test performed at [facility]. Specimen (Source) Anatomical Collection Method Collection Time Re ceived Time Location / / Volume Laterality Urine, Clean 10/17/2011 9:09 AM Catch GROUND CREWMAN AIRCRAFT SUPPORT Elizabeth Parker APRN, C.N.P., D.N.P. LAB MICROBIOLOGY - GENERAL ORDERABLES Performing Organization Address City/State/ZIP Code Phon e Number POWERCHART documented in this encounter Visit Diagnoses Not on filedocumented in this encounter
--- OUTSIDE RECORDS SUMMARY | 2022-07-24 10:10 | XMS_ITS | Encounter Summary ---
:1940 Author Organization [facility] Address [address] [place] [address] Care Team Providers Name Role Phone Unavailable Primary Care Provider Unavailable Encounter Details Date Type Department Care Team Description 04/13/2011 Hospital Encounter HX [facility] FAMILYPRA Tino Horn P.A.-C. [address] [place] [address] (Wo rk) Social History Tobacco [...] Horn P.A.-C. - 04/13/2011 12:00 AM CDT [id number] CHIEF COMPLAINT/REASON FOR VISIT Followup of her [...] HORN PA-C On: 04/16/2011 01:24 PM [facility] Document Id: [id number] documented in this encounter Miscellaneous Notes Miscellaneous - Apolonia Horn P.A.-C. - 04/13/2011 9:39 AM CDT Ambulatory Patient Summary [address] [address] Visit Information Name: AINSLEY GANDHI Current Date: [...] No Appointments found Your Goals/Additional instructions: Source: [facility] POWERCHART Document Id: [id number] Electronically signed by Conversion, [facility] Radio Survey Worker [id number] at 03/10/2017 3:00 PM CDT Miscellaneous - Apolonia Horn P.A.-Abelardo. - 04/13/2011 9:39 AM CDT Ambulatory Depart Summary [address] [address] Visit Information Name: AINSLEY GANDHI Current Date: [...] to the patient and/or family, guardian/caregiver. Source: [facility] POWERCHART Document Id: [id number] Electronically signed by Conversion, [facility] Radio Survey Worker [id number] at 03/10/2017 3:00 PM CDT Miscellaneous - Conversion, Historical Provider Ser - 04/13/2011 9:14 AM CDT Adult Surgery Teacher Intake/History Adult Surgery Teacher Intake/History Entered On: 04/13/2011 9:19 CDT Performed [...] MD; Reviewed Date: 04/13/2011 9:12 CDT Source: [facility] Pre[employer] DermatologyCHART Document Id: [id number] CDT!30 documented in this encounter Plan of Treatment Not on filedocumented as of this encounter Visit Diagnoses Not on filedocumented in this encounter
--- OUTSIDE RECORDS SUMMARY | 2022-07-24 10:10 | XMS_ITS | Encounter Summary ---
:1940 Author Organization [facility] Address [address] [place] [address] Care Team Providers Name Role Phone Unavailable Primary Care Provider Unavailable Encounter Details Date Type Department Care Team Description 11/05/2011 Hospital Encounter HX [facility] Naomi Parker, MISA, C.N.P., D. N.P. [address] [place], [place] [address] (Wo rk) Social History [...] or relatives? How often do you attend congregational or More than 4 times per year 03/16/2022 jehovah's witness services? Do you belong to any clubs or Yes 03/16/2022 organizations such as congregational groups, unions, fraternal or athletic groups, or [...] Comments Blood Pressure 120/80 11/05/2011 11:14 AM HOME VISITOR HOME BASE HEAD START Pulse 68 11/05/2011 11:14 AM HOME VISITOR HOME BASE HEAD START Temperature - - Respiratory Rate 20 11/05/2011 11:14 AM HOME VISITOR HOME BASE HEAD START Oxygen Saturation - - Inhaled Oxygen Concentration - - Weight 86.5 kg (190 lb 11.2 oz) 11/05/2011 11:14 AM HOME VISITOR HOME BASE HEAD START Height - - Body Mass Index - [...] APRN, C.N.P. - 11/05/2011 12:00 AM CST [id number] CHIEF COMPLAINT/ REASON FOR VISIT Cold. HISTORY [...] SKINNER CNP On: 11/06/2011 10:57 AM Source: [facility] MHSDOLBEYNONRADSYS Document Id: [id number] VISITOR HOME BASE HEAD START documented in this encounter Nursing Notes Conversion, Historical Provider Ser - 06/04/2012 4:47 PM CDT Change pharmacy Pt called wanting to change pharmacy to [facility] fax# [phone]. Pravastatin, Lisinopril, Atenolol, Chlorothalidone, Synthroid. [facility]# [phone] along with on coverletter. Will fax rx's to [facility]. Electronically Signed By: KARELY CHOW On: 06/04/2012 04:49 PM Source: [facility] POWERCHART Document Id: [id number] Conversion, Historical Provider Ser - 11/09/2011 3:22 PM CST Prior Authorization Called [facility] for a Prior authorization for Nitrofurantioin Reference # [id number] , I did this over the phone today, will know the outcome in a few day. I called . Electronically Signed By: PRAKASH ACEVEDO On: 11/09/2011 03:27 PM Source: [facility] POWERCHART Document Id: [id number] documented in this encounter Miscellaneous Notes Telephone Encounter - Duc Ling L.P.N. - 11/14/2011 9:21 AM HOME VISITOR HOME BASE HEAD START Phone Message From: DUC RUCKER Sent: 11/14/2011 09:21:25 HOME VISITOR HOME BASE HEAD START Subject: Phone Message Caller is: ( ) Patient ( ) Mother ( ) Father ( ) Spouse ( ) Daughter ( ) Son ( ) Pharmacy ( X ) Other: Physician: Jonathon Skinner CNP Patient Reason for Call: Message: Appeal for prescribed medication that is not sensitive to bacteria vs what [employer] compan[employer]uggests. Advice/Action: Called Technical Operations Specialist at [employer] on Nov 12, 2011 10:20am and left a message regarding the patient's sensitivities to ciprofloaxin, cephalexin sulfamethoxzole etc. And Microbid that was prescibed was not sensitive to the bacteria and can be used. Attemped to call again Technical Operations Specialist at [employer] on Nov 14, 2011 9:05am. Left a [...] back cell phone number ( ) Source: [facility] POWERCHART Document Id: [id number] Electronically signed by Nikos, [facility] Systems Software Developer [id number] at 03/09/2017 10:02 PM CDT Miscellaneous - Jonathon Parker, MISA, C.N.P. - 11/05/2011 11:45 AM HOME VISITOR HOME BASE HEAD START Ambulatory Patient Summary [address] [address] Visit Information Name: AINSLEY GANDHI Current Date: 11/05/2011 11:45:05 Primary Care Provider: JONATHON SKINNER [facility] Your Medications Here is a list of [...] No Appointments found Your Goals/Additional instructions: Source: [facility] POWERCHART Document Id: [id number] VISITOR HOME BASE HEAD START Miscellaneous - Jonathon Parker APRN, C.N.P. - 11/05/2011 11:45 AM HOME VISITOR HOME BASE HEAD START Ambulatory Depart Summary [address] [address] Visit Information Name: AINSLEY GANDHI Current Date: 11/05/2011 11:45:02 Attending Provider: JONATHON SKINNER CNP Primary Care Provider: JONATHON SKINNER [facility] AINSLEY GANDHIZABETH has been given the following [...] 200 mg oral tablet) Additional Information: Source: [facility] POWERCHART Document Id: [id number] VISITOR HOME BASE HEAD START Miscellaneous - Duc Ling L.P.N. - 11/05/2011 11:14 AM CST Adult All Around Patternmaker Intake/History Adult All Around Patternmaker Intake/History Entered On: 11/05/2011 11:19 HOME VISITOR HOME BASE HEAD START Performed On: 11/05/2011 11:14 HOME VISITOR HOME BASE HEAD START by DUC RUCKER Intake Chief Complaint : [...] : 86.50kg DUC RUCKER - 11/05/2011 11:14 HOME VISITOR HOME BASE HEAD START Subjective Pain Symptoms : No DUC RUCKER - 11/05/2011 11:14 HOME VISITOR HOME BASE HEAD START Dependent Habits Tobacco Use/Currently Using : No Exposure to Tobacco Smoke : Other: Never Smoked Smoking Status : Never smoker DUC RUCKER - 11/05/2011 11:14 HOME VISITOR HOME BASE HEAD START Caffeine Use Grid Caffeine Use : Current Type : Coffee, Soft drinks Frequency : Daily Amount : 1 cup & 2 cans Last Use : yesterday after noon DUC RUCKER - 11/05/2011 11:14 HOME VISITOR HOME BASE HEAD START Recreational Drug Use Grid Drug Use : None DUC RUCKER - 11/05/2011 11:14 HOME VISITOR HOME BASE HEAD START Allergy Allergies (Active) Cats Estimated Onset Date: Unspecified ; Reactions: unknown ; Created By: PHILLPI JARAMILLO MD; Reaction Status: Active ; Category: Other ; Substance: Cats ; Type: Allergy ; Updated By: PHILLIP JARAMILLO; Reviewed Date: 11/05/2011 11:09 HOME VISITOR HOME BASE HEAD START Dust Mite Estimated Onset Date: Unspecified ; Created By: KVNG PAULINO LPN; Reaction Status: Active ; Category: Drug ; Substance: Dust Mite ; Type: Allergy ; Updated By: KVNG PAULINO LPN; Reviewed Date: 11/05/2011 11:09 HOME VISITOR HOME BASE HEAD START prochlorperazine Estimated Onset Date: Unspecified ; Reactions: unknown ; Created By: BRAD JARAMILLO MD; Reaction Status: Active ; Category: Drug ; Substance: prochlorperazine ; Type: Allergy ; Updated By: PHILLIP JARAMILLO MD; Reviewed Date: 11/05/2011 11:09 HOME VISITOR HOME BASE HEAD START Source: [facility] POWERCHART Document Id: [id number] HOME VISITOR HOME BASE HEAD START!31 VISITOR HOME BASE HEAD START documented in this encounter Plan of Treatment Not on filedocumented as of this encounter Visit Diagnoses Not on filedocumented in this encounter
--- OUTSIDE RECORDS SUMMARY | 2022-07-24 10:11 | XMS_ITS | Encounter Summary ---
:1940 Author Organization [facility] Address [address] [place] [address] Care Team Providers Name Role Phone Unavailable [...] Chi C.N.P. - 08/23/2010 12:00 AM CST [id number] IMPRESSION/REPORT/PLAN 1. Physical exam satisfactory. Will schedule fro screening mammogram and screening dermatology appointment down at [place]. She was given a flu shot today. 2. Hypertension 3. Hyperlipidemia 4. Hypothyroidism. TSH, lipid panel and comprehensive panel pending. Will continue her medications of atenolol, Lisinopril, chlorthalidone, levothyroxine and Pravachol. Those will be renewed today. 5. Asthma. ACT 23 done at [place] August 21, 2010. The patient is on Symbicort and Albuterol. She will follow up as needed. Asthma action plan was given to her at that visit at [place] and she has no questions or concerns. [...] history of asthma and was seen in [place] for a recheck of that earlier this [...] scheduled Pap smear: N/A Colon screenin08/18/09 at [place] Depression: No Asthma: Yes. ACT score of 23 Lipids: 09/14 Tdap booster: 07/25/07 Pneumovax: 09/15/08 Influenza: Will done today VITAL SIGNS DATE/TIME 08/23/2010 WEIGHT 84.8 kg TEMPERATURE qcipssr15.8C BMI 32 RESP RATE 18/ min PULSE [...] swelling, lesions or discharge noted from [place]'s, [place]'s or urethra. Bimanual exam performed. No CMT. [...] reflexes 2+. NLP/cmt Signed Michelle Gould RN, MICRO PHOTOGRAPHER Family Nurse Practitioner Electronically Signed By:MICHELLE CHI CNP On 08/25/2010 11:13 AM Source: [facility] MHSDOLBEYNONRADSYS Document Id: [id number] IER ASSISTANT documented in this encounter Nursing Notes Conversion, Historical Provider Ser - 09/08/2010 2:33 PM CST mammogram results from [facility] Called patient - informed of normal mammogram results. Electronically Signed By:KVNG PAULINO LPN On 09/08/2010 02:34 pm Source: [facility] POWERCHART Document Id: [id number] Michelle Chi C.N.P. - 08/23/2010 9:40 AM CST Asthma Assessment Asthma Assessment Entered On: 08/23/2010 9:41 CASHIER ASSISTANT Performed On: 08/23/2010 9:40 CASHIER ASSISTANT by MICHELLE CHI CNP History Co-Morbidities Asthma: Allergic rhinitis, Obesity, Sinusitis ED visits past yr for asthma w/o hospital stay: 0 Hospitalizations/Overnight Stays in Past yr for Asthma: 0 Number of Endotracheal Intubations: 0 B-2 Agonist Use: None Severity Classification: Mild Intermittent MICHELLE CHI CNP - 08/23/2010 9:40 CASHIER ASSISTANT Asthma Precipitating Factors Grid Airborne Particles: Yes Animals: Yes House Dust: Yes Mold: Yes Upper Respiratory Infection: Yes MICHELLE CHI CNP - 08/23/2010 9:40 CASHIER ASSISTANT Source: [facility] Document Id: [id number] CASHIER ASSISTANT!14 IER ASSISTANT documented in this encounter Miscellaneous Notes Miscellaneous - Michelle Chi C.N.P. - 08/23/2010 9:41 AM CST Quality Measures Quality Measures Entered On: 08/23/2010 9:42 CASHIER ASSISTANT Performed On: 08/23/2010 9:41 CASHIER ASSISTANT by MICHELLE CHI CNP BP/Tobacco/Misc Systolic Blood Pressure: 118mmHg Diastolic Blood Pressure: 78mmHg Tobacco Use/Currently Using: No Tobacco Use/Last 12 months: No MICHELLE CHI CNP - 08/23/2010 9:41 CASHIER ASSISTANT Asthma Asthma Control Test (ACT) Score: 23 Asthma Action Plan Provided/Reviewed: Reviewed with the patient Asthma Action Plan Copy: Other: in [facility] chart from Aug 21, 2010 MICHELLE CHI CNP - 08/23/2010 9:41 CASHIER ASSISTANT Source: [facility] Document Id: [id number] CASHIER ASSISTANT!10 IER ASSISTANT Miscellaneous - Michelle Chi C.N.P. - 08/23/2010 9:04 AM CST Ambulatory Patient Summary [address] [address] Visit Information Name: ELISE GANDHI Current Date: 08/23/2010 09:04:21 Primary Care Provider: MICHELLE CHI [facility] Your Medications Here is a list of [...] No Appointments found Your Goals/Additional instructions: Source: [facility] POWERCHART Document Id: [id number] Miscellaneous - Michelle Chi, C.N.P. - 08/23/2010 9:04 AM CST Ambulatory Depart Summary [address] [address] Visit Information Name: ELISE GANDHI Current Date: 08/23/2010 09:04:20 Primary Care Provider: MICHELLE CHI [facility] ARNOL GARCIA ELISE GAVIRIA has been given [...] to the patient and/or family, guardian/caregiver. Source: [facility] POWERCHART Document Id: [id number] Electronically signed by Conversion, [facility] Castings Drafter [id number] at 03/11/2017 4:13 AM CDT Miscellaneous - Conversion, Historical Provider Ser - 08/23/2010 8:18 AM CASHIER ASSISTANT Ambulatory Vitals Height Weight Ambulatory Vitals Height Weight Entered On: 08/23/2010 8:20 CASHIER ASSISTANT Performed On: 08/23/2010 8:18 CASHIER ASSISTANT by KVNG PAULINO LPN Vitals/Ht/Wt Systolic Blood Pressure: 118mmHg Diastolic Blood Pressure: 78mmHg NIBP Mean: 91mmHg BP Location: Right upper extremity KVNG PAULINO LPN - 08/23/2010 8:18 CASHIER ASSISTANT Source: [facility] POWERCHART Document Id: [id number] CASHIER ASSISTANT!6 Miscellaneous - Conversion, Historical Provider Ser - 08/23/2010 8:14 AM CASHIER ASSISTANT Adult Knockdown Man Intake/History Adult Knockdown Man Intake/History Entered On: 08/23/2010 8:18 CASHIER ASSISTANT Performed On: 08/23/2010 8:14 CASHIER ASSISTANT by KVNG PAULINO LPN Intake Chief Complaint: [...] 32kg/m2 KVNG PAULINO LPN - 08/23/2010 8:14 CASHIER ASSISTANT Subjective Pain Symptoms: No KVNG PAULINO LPN - 08/23/2010 8:14 CASHIER ASSISTANT Dependent Habits Tobacco Use/Currently Using: No Tobacco Use/Last 12 months: No Alcohol Use: Yes KVNG PAULINO LPN - 08/23/2010 8:14 CASHIER ASSISTANT Caffeine Use Grid Caffeine Use: Current Type: Coffee, Soft drinks Frequency: Daily Amount: 1 cup & 2 cans Last Use: yesterday 4:30 pm KVNG PAULINO LPN - 08/23/2010 8:14 CASHIER ASSISTANT Recreational Drug Use Grid Drug Use: None KVNG PAULINO LPN - 08/23/2010 8:14 CASHIER ASSISTANT Allergies Allergies (Active) Cats Estimated Onset Date: Unspecified ; Reactions: unknown ; Created By: PHILLIP JARAMILLO MD; Reaction Status: Active ; Category: Other ; Substance: Cats ; Type: Allergy ; Updated By: PHILLIP JARAMILLO; Reviewed Date: 08/23/2010 8:13 CASHIER ASSISTANT Dust Mite Estimated Onset Date: Unspecified ; Created By: KVNG PAULINO LPN; Reaction Status: Active ; Category: Drug ; Substance: Dust Mite ; Type: Allergy ; Updated By: KVGN PAULINO LPN; Reviewed Date: 08/23/2010 8:13 CASHIER ASSISTANT prochlorperazine Estimated Onset Date: Unspecified ; Reactions: unknown ; Created By: BRAD JARAMILLO MD; Reaction Status: Active ; Category: Drug ; Substance: prochlorperazine ; Type: Allergy ; Updated By: PHILLIP JARAMILLO MD; Reviewed Date: 08/23/2010 8:13 CASHIER ASSISTANT Source: [facility] POWERCHART Document Id: [id number] CASHIER ASSISTANT!34 documented in this encounter Plan of Treatment Not on filedocumented as of this encounter Visit Diagnoses Not on filedocumented in this encounter
--- OUTSIDE RECORDS SUMMARY | 2022-07-24 10:11 | XMS_ITS | Encounter Summary ---
:1940 Author Organization [facility] Address [address] [place] [address] Care Team Providers Name Role Phone Unavailable [...]
--- OUTSIDE RECORDS SUMMARY | 2022-07-24 10:11 | XMS_ITS | Encounter Summary ---
:1940 Author Organization [facility] Address [address] [place] [address] Care Team Providers Name Role Phone Unavailable [...] 06/18/2003 1:56 PM CDT 18-Jun-2003 13:26:00 ??Exam: [id number] Indications: screening ORIGINAL REPORT - 18-Jun-2003 13:56:00 Diverticulosis. ??Patulous ileocecal nicolas ve. ??Otherwise normal colon and terminal ileum. Electronically signed by: ?? Mely Lyon MD, [phone] 18-Jun-2003 13:56 ?Nisha Gudino ?? -[id number] 18-Jun-2003 13:56 Procedure Note Tommy Gudino M.D. - 01/14/2018Formattin g of this note might be different from the original. 18-Jun-2003 13:26:00 Exam: [id number] nostic Indications: screening ORIGINAL REPORT - 18-Jun-2003 13:56:00 Diverticulosis. Patulous ileocecal valve . Otherwise normal colon and terminal ileum. Electronically signed by: Mely Lyon MD, [phone] 18-Jun-2003 13:56 Nisha Gudino MD [phone] 18-Jun-2003 13:56 Anusha Pacheco APRN, C.N.P., D.N.P. IMG FLUOROSCOPY PRO CEDURES documented in this encounter Visit Diagnoses Not on filedocumented in this encounter
--- OUTSIDE RECORDS SUMMARY | 2022-07-24 10:11 | XMS_ITS | Encounter Summary ---
:1940 Author Organization [facility] Address [address] [place] [address] Care Team Providers Name Role Phone Unavailable Primary Care Provider Unavailable Encounter Details Date Type Department Care Team Description 10/20/2009 Hospital Encounter HX NO MAPPING Jennifer Deal M.D. [address] [place] [phone] (Wo rk) Social History Tobacco Use [...] lts for this AND LATERAL 2 VIEWS DAMPPROOFER procedur e are in the results section. documented in this encounter Results DX Chest AP or PA and Lateral 2 Views (10/20/2009 3:16 PM DAMPPROOFER) Anatomical Region Laterality Modality Chest N/A Radiographic Imaging Specimen (Source) Anatomical Collection Method Collection Time Re ceived Time Location / / Volume Laterality 10/20/2009 3:16 PM DAMPPROOFER Addenda Addendum by Ned Rai M.D. o n 10/20/2009 3:16 PM DAMPPROOFER RAD^^^OW XR Chest 2 Views 10/20/2009 15:16:00 Addendum by Ned Rai M.D. o n 10/20/2009 3:16 PM DAMPPROOFER RAD^^^MA XR CHEST 2 VIEWS 10/20/2009 15:16:00 Impressions 10/20/2009 3:34 PM DAMPPROOFER No acute findings. Mild cardiomegaly. Narrative 10/20/2009 3:34 PM DAMPPROOFER HISTORY: Asthma. ?? COMPARISON: None. ?? FINDINGS: Heart size is mildly enlarged. There is no vascular congestion. No pneumothorax or pleural f luid. No pulmonary edema or consolidating infiltrates. No hyperinfla tion. No peribronchial thickening. No acute bony findings. Mild aortic arch atherosclerosis. ?? Procedure Note Piter Hdz M.D. / ProviderrKisti M.D. - 02/28/2017 HISTORY: Asthma. COMPARISON: None. [...]
--- OUTSIDE RECORDS SUMMARY | 2022-07-24 10:12 | XMS_ITS | Clinical Summary ---
:1940 Author Organization [facility] [place] [address] Care Team Providers Name Role Phone Varsha Garcia STOCK PULLER Primary Care Provider Allergies Active Allergy Reactions [...] of skin. fluticasone (50 mcg Inhale 1 Rose Bud 16 g 07/04/20 Active per actuation) nasal [...] (PRINIVIL; Take 1 Tablet 90 Tablet 3 03/01/20 10/0 / Discontinued ZESTRIL) 30 mg tablet (30 mg) by 22 022 (*Medication mouth once adjustmen t) daily. amoxicillin (AMOXIL) Take 4 12 Capsule 0 07/16/20 500 mg capsule Capsules 22 022 (2,000 mg) by mouth one time 1 hour prior to dental appointment. Active Problems Problem Noted Date Spondylolisthesis of [...] CDT Respiratory Rate 16 11/05/2014 8:14 AM REFINERY SUPERINTENDENT Oxygen Saturation 96% 03/23/2019 11:30 AM CDT Inhaled Oxygen Concentration - - Weight 101.2 kg (223 lb) 03/23/2019 11:30 AM CDT Height 161 cm (5' 3.39) 2014 7:04 AM REFINERY SUPERINTENDENT Body Mass Index 39.02 2014 7:04 AM REFINERY SUPERINTENDENT Plan of Treatment Upcoming Encounters Date Type Specialty Care Team Description 07/26/2022 Orders Only Yahaira Aguero 10/15/2022 Telemedicine Alexandra Jeff , MS, [facility] [address] [place] [address] [place] [facility] [address]IP [address] [place] [address] (Wo rk) Health Maintenance Due Date Last Done Comments [...] 65+ 06/07/2022 Medical Devices Implanted Type Area Hygiene Teacher Device Shelf Model / Identifier Expiration Serial / Date Lot [id number] - [id number] Ortho Left: DEPUY 01/07 1518-20-035 / Implanted: Qty: 1 on 2014 by Babatunde Mclain MD at [facility] Total Knee / Joint [id number] Description: Attune Patella Medialized D ome 35mm Cemented AOX [id number] - [id number] Left: Knee DEPUY [id number] / Implanted: Qty: 1 on 2014 by Babatunde Mclain MD at [facility] / [id number] Description: Attune Tibial Insert Fixed Bearing Posterior [...] Organization Address City/State/ZIP Code Phon e Number [facility] [address] [place] [address] LABORATORY-CENTRAL 2000 LABORATORY PATH BREAST CORE BIOPSY (06/22/2022 10:41 AM CDT) Component Value Ref Test Analysis Performed At [facility] gist Range Method Time Signature Case Report Pathology Report ?Case: [id number] ? 06/27/2022 [facility] Authorizing Provider: ??Unkn own, Doctor ?Collected: ? 06/22/2022 1041 ? 1:18 PM HEAL TH Ordering Location: ? L CENTRAL LAB ?Received: ?06/23/2022 0748 ? CDT [place] BORATORY-C Pathologist: ? Jj Lema MD ? ENTRAL Specimen: ?Left Breast ? LABORATORY Amendment 06/27/2022 - 06/27/2022 [facility] Amendment issued 1:18 PM HEALTH to incorporate CDT LABORATORY-C ancillary ENTRAL studies. LABORATORY Final A) LEFT BREAST, 2:00, 4 CM FROM NIPPLE, ULTRASOUND-GABRIELA DED CORE BIOPSY: 06/27/2022 [facility] Amendment Diagnosis 1. Invasive ductal carcinoma 1:18 PM H EALTH electronically ?? a. [place] grade: I of III; [place] score: 5 of 9 CDT LABORATORY-C signed [...] Drug Administration (FDA) cleared (test / vendor): Zebulon ? Primary Antibody: ?4B5 ?? Test(s) Performed: [...] ?2,368 nuclei analyzed for Ki-67. Additional 06/27/2022 [facility] Information Interpreted at [facility], Central Laboratory - [address], [place] [address] 1:18 PM HEALTH CDT LABORATORY-C ENTRAL LABORATORY Specimen Anatomical Collection Method Collection Time Receive d Time (Source) Location / / Volume Laterality Other (Left 06/22/2022 10:41 06/23/2022 7:48 Breast) AM CDT AM CDT Doctor Unknown PATHOLOGY/CYTOLOGY Performing Organization Address City/State/ZIP Code Phon e Number [facility] [address] [place] [address] LABORATORY-CENTRAL 2000 LABORATORY from Last 3 Months Insurance Payer Benefit Plan / Subscriber ID Effective Dates Phone Addre ss Type Group MEDICARE PART A MEDICARE PART A [id number] 2007-[employer] ATTN: CLAIMS - HB USE ONLY HB ONLY t [address] [facility] [place] [address] MEDICARE PART B MEDICARE PART B [id number] 2007-[employer] ATTN: CLAIMS - HB USE ONLY HB ONLY t [address] [place] [address] BLUE CROSS MR MR [place] [id number] 2014-Presen [address] [place] [address] BLUE CROSS MR PEREZ [place]OSS [id number] 2016-Presen [address] [address] [place] BL[place] [id number] Sadiq Personal/Family Self 1940 [address] (Home) [place] [address] Care Teams Card Hand Relationship Specialty Start Date End Date Varsha Garcia, STOCK PULLER PCP - General Emergency Medicine 03/07/22 [address] [facility] JOHN Pascual [phone]
[2022-07-24 16:59] LABS: SARS PCR* Negative SARS-CoV-2 (Negative)
== END 2022-07-24 10:04 | disposition home or self-care (01) ==
LOC: KYNREF 10:03
PROVIDERS: PCP Nurse Practitioner Family; Visit Provider Nurse Practitioner Family
DX: Z20.822 Contact with and (suspected) exposure to COVID-19 (principal)
CPT/HCPCS: 87635

== ENCOUNTER 2022-07-26 06:31 | Day surgery (SDC) | payer MEDICARE, BC, SELFPAY ==
[2022-07-26] VITALS (20 sets, daily range): BP systolic 128–161; BP diastolic 64–92; PULSE 85–103; RESP 15–18; TEMP 36.8–37.6; O2SAT 91–98; BMI 38.9
--- NOTE | 2022-07-26 | CRLHL7_ITS ---
For Patients: As a result of the Cures Act, medical imaging exams and procedure reports are released immediately into your electronic medical record. You may view this report before your referring provider. If you have questions, please contact your health care provider. LEFT BREAST SPECIMEN RADIOGRAPH CLINICAL HISTORY: LEFT breast cancer. COMPARISON: 06/19/2022. FINDINGS: Two-view specimen film submitted. Specimen contains the localization wire, biopsy clip and biopsy-proven malignancy. IMPRESSION: Specimen contains the wire, clip and malignancy. ACR not applicable Dictated by Jj Bates MD @ 07/26/2022 10:42:34 AM jj/Dictated by: Jj Bates MD @ 07/26/2022 10:42:00 AM (Electronically Signed)
--- NOTE | 2022-07-26 07:09 | CRLHL7_ITS ---
For Patients: As a result of the Cures Act, medical imaging exams and procedure reports are released immediately into your electronic medical record. You may view this report before your referring provider. If you have questions, please contact your health care provider. PLEASE SEE ULTRASOUND-GUIDED WIRE LOCALIZATION PERFORMED SAME DAY CRL:josé luis ordonez/Dictated by: Jj Bates MD @ 07/26/2022 10:10:00 AM (Electronically Signed)
[2022-07-26] MEDS: LACTATED RINGERS 1000 ML 1,000 ML 100 ML IV (07:24)
[2022-07-26] MEDS: SODIUM CHLORIDE 0.9 % (FLUSH) 10 ML SYRINGE IVF (07:27)
--- NOTE | 2022-07-26 07:45 | CRLHL7_ITS ---
For Patients: As a result of the Century Cures Act, medical imaging exams and procedure reports are released immediately into your electronic medical record. You may view this report before your referring provider. If you have questions, please contact your health care provider. HISTORY: 81-year-old female. Left breast cancer. TECHNIQUE: 530 microcuries of [id number] sulfur colloid was injected in the left breast for sentinel lymph node localization. Images were not obtained. Dictated by Joseph Ray MD @ 07/26/2022 10:53:57 AM (Electronically Signed)
--- NOTE | 2022-07-26 08:15 | CRLHL7_ITS ---
For Patients: As a result of the Cures Act, medical imaging exams and procedure reports are released immediately into your electronic medical record. You may view this report before your referring provider. If you have questions, please contact your health care provider. BREAST WIRE LOCALIZATION USING ULTRASOUND GUIDANCE CLINICAL HISTORY: LEFT breast cancer. LATERALITY: LEFT breast. LESION: Solid hypoechoic mass LEFT breast 2 o`clock 4 cm from the nipple measuring 1.5 x 0.8 x 0.9 cm. LOCALIZATION WIRE: [place] hookwire. TECHNIQUE: The localization wire was placed using real-time ultrasound guidance with image documentation. Cranial-caudal and medial-lateral digital mammograms were obtained after localization wire placement. CONSENT and TIME OUT: The procedure, risks, and alternatives were explained to the patient and a consent was signed. [place] Protocol was followed including pre-procedure verification that relevant information/documentation was available, reviewed and properly matched to the patient; consent accurate and complete; and equipment and supplies available. Time Out was conducted just prior to starting procedure to verify the four required elements: patient identity, correct side/site marked (if applicable), procedure, relevant images/results properly labeled and displayed (if applicable). PROCEDURE: The skin was prepped with ChloraPrep and 8 cc of 1% lidocaine was injected for local anesthesia. The localization wire was placed within or near the targeted breast lesion using ultrasound guidance. The patient tolerated the procedure well. PROXIMITY OF WIRE TO LESION: Within the lesion immediately adjacent to the clip. IMPRESSION: Successful breast wire localization. ACR not applicable Dictated by Jj Bates MD @ 07/26/2022 10:10:16 AM jj/Dictated by: Jj Bates MD @ 07/26/2022 10:10:00 AM (Electronically Signed)
[2022-07-26] MEDS: ISOSULFAN BLUE 5 ML VIAL INJECTION (09:19)
[2022-07-26] MEDS: BUPIVACAINE 0.25% 30 ML INJECTION (09:30)
[2022-07-26] MEDS: LIDOCAINE 1% MDV 20 ML INJECTION (09:36)
--- NOTE | 2022-07-26 09:38 | W.ANESCHARGE ---
Anesthesia Charges Start Date/Time Anesthesia Start Date: 07/26/22 Anesthesia Start Time: 09:05 Stop Date/Time Anesthesia Stop Date: 07/26/22 Anesthesia Stop Time: 11:34 Summary Emergency: No Extremes of Age: Over 72-CPT 59638
--- NOTE | 2022-07-26 11:26 | PM.GSPRC ---
Operative Note Date of procedure: 07/26/22 Type of Procedure: 1. Left lumpectomy with preoperative wire localization 2. Left axillary sentinel lymph node biopsy Procedure Description: After discussing the risks and benefits of the procedure, the patient signed informed consent.? The operative site was marked. 1 hour prior to incision, I injected 530 microcuries of [id number]-dluutmik sulfur colloid?into the dermis above the nipple-areolar complex and massaged for 3 minutes. The patient was brought to the operating room and placed on the operating table in supine position.? Care was taken to pad the patient's pressure points.?? The patient was then given sedation by anesthesia.?10 minutes prior to incision 3 cc isosulfan blue dye was injected into the dermis and massaged in place to promote lymphatic drainage.? The operative site was then prepped and draped in the usual sterile fashion.? A time-out was then performed. Local anesthetic was injected into the skin and subcutaneous tissue at the area of planned incision. A curvilinear incision was then created at the superior lateral aspect of the nipple-areolar complex. Dissection was taken down into the subcutaneous tissue using cautery. A subcutaneous plane was continued until the localizing wire was encountered. This was then grasped and pulled into the incision. Care was then taken to removed the specimen with the wire intact. Dissection was 1st taken down to the chest wall. The patient's breast was quite large and the chest wall was palpable at the deep margin of dissection. I then dissected inferiorly at the border of the nipple areolar complex and, after creating a subcutaneous plane below the area of tumor, from 12 o o'clock to 3 o'clock, I took the dissection down again to the chest wall at the superior aspect. Once this was done, I dissected the mass posteriorly, leaving only the medial aspect. At this point, despite adding local anesthetic, the patient did require increasing amounts of sedation. Given this, the decision was made to intubate the patient. I paused my dissection while Anesthesia performed the intubation without difficulty. The patient remained stable throughout the procedure. Please see anesthesia notes for details. I dissected using cautery medial aspect again down to the palpable chest wall though I did not visualize fascia as the tumor was somewhat superficial and the patient's breast was quite large. This was then removed and inked for margins and sent for x-ray. The clip and wire were both present. This was then sent for gross margins which were widely negative. The closest margin was anteriorly, however measured 7 mm grossly. I then turned my attention to the sentinel node biopsy. There was no signal noted in the axilla with the probe on the skin, however I made the standard incision just below the hairline. I dissected down to the subcutaneous fat using cautery. The axillary fat was encountered. I was able to identify a signal at this point. I dissected down into the axillary fat. As I did this, I encountered another rishi type structure. I did remove this. It was not blue and did not have any radio activity. I sent it to pathology as an axillary lymph node. I then was able to identify and blue lymph node. I dissected this free and clipped the small lymphatic going to it. I measured this ex vivo and it measured 1300. There were no further blue nodes noted in the axilla and there was no further signal in the axilla once this node was removed. Hemostasis appeared excellent. Both the breast and the axillary wound were then closed with 3 0 Vicryl dermal and 4 0 Monocryl running subcuticular suture. . ?Sterile dressings were then applied. ? The patient was then woken and transported to the recovery area in stable condition. ? The patient tolerated the procedure well. Findings: Clip and wire present within the breast specimen. Grossly negative margins. 1 additional axillary node sent for pathology One sentinel lymph node identified Anesthesia: GETA Surgeon: Barbra Lamas MD Estimated blood loss (mL): 15 Condition: stable Disposition: PACU
[2022-07-26] MEDS: ALBUTEROL SULFATE 2.5 MG/3 ML VIAL.NEB NEB (11:40)
--- NOTE | 2022-07-26 11:46 | W.ANESCHARGE ---
Anesthesia Charges Start Date/Time Anesthesia Start Date: 07/26/22 Anesthesia Start Time: 09:05 Stop Date/Time Anesthesia Stop Date: 07/26/22 Anesthesia Stop Time: 11:34 Summary Emergency: No Extremes of Age: Over 72-CPT 25228
--- NOTE | 2022-07-26 12:32 | SUR.PHASEI ---
Patient was labored and wheezing upon entering PACU, patient receieved nebulizer which relieved the labored and wheezing. This brought her back to baseline and have SPO2 within normal limits. Transitioned to nasal cannula at 4 liters to SDS.
--- NOTE | 2022-07-26 13:14 | SUR.PHASEII ---
1248: Patient assisted with use of bedpan. Urine output. Patient declines bringing son and friend back but would like them updated that she is resting. Patient states she has a headache-declines ice pack. Patient states her throat hurts and is unable to put a number on her discomfort. Ice chips help per patient. Lights off for comfort and call light within reach for patient. Dionne jaquez applied.
[2022-07-26] MEDS: HYDROCODONE-ACETAMIN 5-325 MG 1 TAB PO (14:15)
[2022-07-26] MEDS: BENZOCAINE/MENTHOL 1 EACH LOZENGE 2 EACH MUCOUS MEM (14:30)
== END 2022-07-26 15:42 | disposition home or self-care (01) ==
PROVIDERS: PCP Nurse Practitioner Family; Visit Provider Surgery
PROC: (CPT 19301; principal; 2022-07-26 08:30)
DX: C50.912 Malignant neoplasm of unspecified site of left female breast (principal); Z17.0 Estrogen receptor positive status [ER+]
CPT/HCPCS: 19301; 38500; 00400; 19285; 38792; 77066; 94640; 99100; A9270; A9541; C1769; J0330; J2250; J2704; J2710; J3010; J3490; J7120

== ENCOUNTER 2022-08-14 22:14 | Outpatient (CLI) | payer MEDICARE, BC, SELFPAY ==
--- OUTSIDE RECORDS SUMMARY | 2022-08-14 22:16 | XMS_ITS | Encounter Summary ---
:1940 Author Organization [facility] Address [address] [place] [address] Care Team Providers Name Role Phone Elsewhere, Pcp Primary Care Provider Unavailable Encounter Details Date Type Department Care Team Description 03/16/2022 Lab Urgent [facility] in [place] [facility] Gerald W, Encounter For [place] Giuliano.Madeleine Preprocedural Laboratory [address] [facility] Examination (COVID-19) [place] [address] [place], [place] [phone] (Wo rk) Social History Tobacco Use Types [...] have completed or the highest Roland, MEd, LINEMAN A CLASS, MARIE) degree you have received? Sex Assigned at Date Recorded Female 06/26/2021 8:35 AM CDT documented as of this encounter Plan of Treatment Upcoming Encounters Date Type Specialty Care Team Description 08/22/2022 Clinical Communication Admitting/Central Scheduling 08/24/2022 Appointment Radiation Oncology Sue Barry M.D. [address] [place] [address] documented as of this encounter Procedures Procedure Name Priority Date/Time Associated Diagnosis Comme nts SARS CORONAVIRUS-2 STAT 03/16/2022 9:16 AM Encounter For Re sults for this RNA, V CDT Preprocedural procedure are in Laboratory Examination the r esults (COVID-19) section. documented in this encounter Results SARS Coronavirus-2 RNA, V Asymptomatic (03/16/2022 9:16 AM CDT) [facility] Method Time Signature SARS-CoV-2 Swab, 03/16/2022 MKTO [...] pe rformed using the Aptima SARS-CoV-2 assay ([employer] on the SourceDNAs tem under emergency use authorization (EUA) by the U.S. Food and Drug Administ annabella. Fact sheets for this EUA assay can be fo und at the following links: For Healthcare Providers: https://www.EnteGreat a.gov/media/933257/download For Patients: https://www.fda.gov/media/ 237486/download Specimen Anatomical Collection Method Collection Time Receive d Time (Source) Location / / Volume Laterality Varies 03/16/2022 9:16 AM 2:57 (Nasopharynx) CDT PM CDT Valdemar Ma M.D. LAB MICROBIOLOGY - GENERAL O RDERABLES Performing Organization Address City/State/[facility] Phon e Number [facility]- [address] [place] [address] [place] [address] [address] documented in this encounter Visit Diagnoses Diagnosis Encounter For Preprocedural Laboratory E xamination (COVID-19) documented in this encounter Additional Health Concerns Infection Onset Date Last Indicated Resolved Time COVID19 Pending 03/16/2022 03/16/2022 03/16/2022 11:54 PM CDT documented as of this encounter Care Teams Call Center Rn Relationship Specialty Start Date End Date Elsewhere, Pcp PCP - General Internal Medicine 03/16/22 documented as of this encounter
--- OUTSIDE RECORDS SUMMARY | 2022-08-14 22:16 | XMS_ITS | Encounter Summary ---
:1940 Author Organization [facility] Address [address] [place] [address] Care Team Providers Name Role Phone Elsewhere, Pcp Primary Care Provider Unavailable Reason for Referral Outpatient (Routine) - Authorized Specialty Diagnoses / Procedures Referred By Contact Refer red To Contact Allergy and Immunology Vadlemar Ma [place] M.D. [address] [place] [address] Referral ID Status Reason Start Date Expiration Date Visits V isits Requested Authorized [id number] Authorized 03/20/2022 03/20/2023 1 1 Outpatient (Routine) - Authorized Specialty Diagnoses / Procedures Referred By Contact Refer red To Contact Diagnoses Asthma Intrinsic (HCC) Valdemar Ma M.D. [facility] Procedures Spirometry [address] [place], [place] [address] Referral ID Status Reason Start Date Expiration Date Visits V isits Requested Authorized [id number] Authorized 03/20/2022 03/20/2023 1 1 Reason for Visit Outpatient (Routine) - Closed Specialty Diagnoses / Procedures Referred By Contact Refer red To Contact Allergy and Immunology Valdemar Ma [place] M.D. [address] [place] [address] Referral ID Status Reason Start Date Expiration Date Visits Requ ested Visits Authorized [id number] Closed 03/07/2021 03/07/2022 1 1 Encounter Details Date Type Department Care Team Description 03/20/2022 Office Visit Division of Allergic Valdemar Ma hma Intrinsic (HCC) Diseases in Ge[place]ani Ryder M.D. (Primary Dx) [place] [address] [place] [phone] Social History Tobacco Use Types Packs/Day Years [...] school Master's degree (e.g., Giuliano Conteh MS, 02/15/2021 you have completed or the highest Roland, Katie, SERVICE DESK DIRECTOR, MARIE) degree you have [...] female who spends March through August in [place] and the remaining months in [place] who was last seen in the division [...] is having more allergy-type symptoms, particularly in [place] and also here where she will notice [...] Valdemar Ma M.D. CT CT Job ID: [id number] documented in this encounter Plan of Treatment Upcoming Encounters Date Type Specialty Care Team Description 08/22/2022 Clinical Communication Admitting/Central Scheduling 08/24/2022 Appointment Radiation Oncology Sue Barry M.D. [address] [place] [address] Scheduled Orders Name Type Priority Associated Diagnoses [...] Primary documented in this encounter Care Teams Cloth Weigher Relationship Specialty Start Date End Date Elsewhere, Pcp PCP - General Internal Medicine 03/16/22 documented as of this encounter
--- OUTSIDE RECORDS SUMMARY | 2022-08-14 22:16 | XMS_ITS | Encounter Summary ---
:1940 Author Organization [facility] Address [address] [place] [address] Care Team Providers Name Role Phone Elsewhere, Pcp Primary Care Provider Unavailable Reason for Visit Reason Comments Allergy Testing Spirometry Outpatient (Routine) - Closed Specialty Diagnoses / Procedures Referred By Contact Refer red To Contact Diagnoses Asthma Intrinsic ([facility]) Valdemar Ma M.D. [facility] Procedures Spirometry [address] [place] [phone] Referral ID Status Reason Start Date Expiration Date Visits Requ ested Visits Authorized [id number] Closed 02/12/2022 02/12/2023 1 1 Encounter Details Date Type Department Care Team Description 03/20/2022 Clinical Support Division of Allergic Valdemar Ma M.D. [address] [place] [phone] Asthma Intrinsic Diseases in [place] Dominique R.N. ([facility]) [place], [place] [address] [place] [address] Social History Tobacco Use Types Packs/Day Years [...] 03/16/2022 organizations such as orthodox groups, unions, [employer] or athletic groups, or school groups? How [...] have completed or the highest Roland, MEd, CLAM SHOVEL OPERATOR, MARIE) degree you have received? Sex Assigned at Date Recorded Female 06/26/2021 8:35 AM CDT documented as of this encounter Plan of Treatment Upcoming Encounters Date Type Specialty Care Team Description 08/22/2022 Clinical Communication Admitting/Central Scheduling 08/24/2022 Appointment Radiation Oncology Sue Barry M.D. [address] [place] [address] documented as of this encounter Procedures Procedure Name Priority Date/Time Associated Comments Diagnosis CO BRONCHODILATION Routine 03/20/2022 8:51 Asthma Intrinsic Re sults for this RESPONSIVENESS AM CDT ([facility]) procedure are in the results section. documented in this encounter Results Spirometry (03/20/2022 8:51 AM CDT) Analysis Performed At Patho logist Time Signature VC MAX POST 2.57 L 03/20/2022 [place] 2:58 PM CDT SUITE PostFVC 2.31 L 03/20/2022 [place] [facility] 2:58 PM CDT SUITE PostFEV1 1.59 L 03/20/2022 [place] [facility] 2:58 PM CDT SUITE FEV1/FVC POST 68.91 % 03/20/2022 [place] [facility] 2:58 PM CDT SUITE FEF 25-75 % 0.97 L/s 03/20/2022 [place] [facility] 2:58 PM CDT SUITE PEF POST 4.78 L/s 03/20/2022 [place] [facility] 2:58 PM CDT SUITE FET POST 16.80 sec 03/20/2022 [place] [facility] 2:58 PM CDT SU[address] VC MAX PRE 2.24 L 03/20/2022 [place] [facility] 2:58 PM CDT SUITE FVC 2.12 L 03/20/2022 [place] [facility] 2:58 PM CDT SUITE FEV1 1.40 L 03/20/2022 [place] [facility] 2:58 PM CDT SUITE FEV1/FVC 66.11 % 03/20/2022 [place] [facility] 2:58 PM CDT SUITE QOS79-87% 0.82 L/s 03/20/2022 [place] [facility] 2:58 PM CDT SUITE PEF PRE 4.64 L/s 03/20/2022 [place] [facility] 2:58 PM CDT SUITE FET PRE 18.40 sec 03/20/2022 [place] [facility] 2:58 PM CDT SUITE SUBSTANCE POST Albuterol 03/20/2022 [place] [facility] 2:58 PM CD[address] SU[address] DOSE POST 2 Puff 03/20/2022 [place] [facility] 2:58 PM CDT SUITE % PRED VC MAX 91 % % 03/20/2022 [place] [facility] 2:58 PM CDT SUITE FVC% 86 % % 03/20/2022 [place] [facility] 2:58 PM CDT SUITE FEV1% 75 % % 03/20/2022 [place] [facility] 2:58 PM CDT SUITE % PRED 86 % % [facility] 2:58 PM CDT SUITE % PRED FEF 54 % % 03/20/2022 [place] [facility] 25-75% 2:58 PM CDT SUITE % PRED PEF 91 % % 03/20/2022 [place] [facility] 2:58 PM CDT SUITE PRED VC MAX 2.46 03/20/2022 [facility] 2:58 PM CDT SU[address] PRED FVC 2.46 03/20/2022 [facility] 2:58 PM CDT [address] PRED FEV 1 1.87 03/20/2022 [facility] 2:58 PM CDT [address] PRED FEV1/FVC 77.2 03/20/2022 [facility] 2:58 PM [address] PRED FEF 1.53 03/20/2022 [facility] 25-75% 2:58 PM [address]T [address] PRED PEF 5.1 03/20/2022 [facility] 2:58 PM CDT SUITE Specimen (Source) Anatomical Collection Method Collection Time Re ceived Time Location / / Volume Laterality 03/20/2022 8:51 AM CDT Impressions [facility] - 03/20/2022 2:58 PM C DT within normal limits Narrative This result has an attachment that is no t available. Procedure Note Valdemar Ma M.D. - 03/20/2022For matting of this note might be different from the original. IMPRESSION: within normal limits Valdemar Ma M.D. PFT ORDERABLES Performing Organization Address City/State/ZIP Code Phon e Number [facility] NA documented in this encounter Visit Diagnoses Diagnosis Asthma Intrinsic (HCC) documented in this encounter Care Teams Radiation Oncologist Relationship Specialty Start Date End Date Elsewhere, Pcp PCP - General Internal Medicine 03/16/22 documented as of this encounter
--- OUTSIDE RECORDS SUMMARY | 2022-08-14 22:16 | XMS_ITS | Encounter Summary ---
:1940 Author Organization [facility] Address [address] [place] [address] Care Team Providers Name Role Phone Elsewhere, Pcp Primary Care Provider Unavailable Reason for Visit Reason Comments Prednisone refill - flare Encounter Details Date Type Department Care Team Description 08/03/2022 Clinical Communication Division of Vasiliy Ma refill - Allergic Diseases Valdemar Olivo M.D. flare in [place], [address] [place] [address] [place] [address] [place], [place] [phone] (Work) [phone] Social History Tobacco Use Types Packs/Day Years [...] have completed or the highest Roland, MEd, CONSULTING IT ARCHITECT, MARIE) degree you have received? Sex Assigned at Date Recorded Female 06/26/2021 8:35 AM CDT documented as of this encounter Miscellaneous Notes Telephone Encounter - Homer Adrian M.S.N., R.N. - 08/03/2022 11:55 AM CDT CHIEF COMPLAINT/REASON FOR VISIT Ainsley Cedeño calling to report symptoms of asthma. HISTORY OF PRESENT ILLNESS Ainsley Cedeño denies having emergency asthma symptoms of: persistent wheezing aftera treatment, difficulty breathing, weakness, listlessness, cyanosis of lips and/or nose, inability to complete full sentences, inability to breathe laying down or struggling to breathe several minutes after taking quick-relief medication. Asthma symptoms include a cough and wheezing. Symptoms are new and began July 26, 2022. Patientreports being intubated during surgery on 07/26/22, as a result, a lot of phlegm was built up and asthma flare started. Patient started taking prednisone 10 mg daily on Saturday (07/30/22). Patient does not have enough prednisone and would like a prescription to help her get through the flare. Reports cough characteristics as productive. Ainsley Cedeño has been using Albuterol inhaler. Last dose was in the morning. she reports it did relieve asthma symptoms. she is waking at night with asthma symptoms. she is able walk a flight of stairs. and is able to walk across the room without getting winded. . Ainsley Herman Gala reports taking the following medications for asthma: Advair 100/50 one puff once a day. Patient stopped the 1 puff twice daily Advair trial because it did not work. ASSESSMENT/PLAN The following home care recommendations have been provided to the patient: Treat symptoms early to decrease severity of asthma attack. Use preventive medications as prescribed. Follow Asthma Action Plan. Disposition/Recommendation: notified provider and awaiting recommendations Education: patient/caller able to teach back Caller agreeable to plan of care: yes The following references were used: other Asthma Triage Kaleb Fortune., R.N. Telephone Encounter - Karina Perdomo - 08/03/2022 11:50 AM CDT Needs refill of prednisone 10 mg (she is having a flare). I note we received an electronic request for this from the pharmacy. Patient states pharmacy is closed this weekend and she needs by 4 pm today. Please call her. documented in this encounter Plan of Treatment Upcoming Encounters Date Type Specialty Care Team Description 08/22/2022 Clinical Communication Admitting/Central Scheduling 08/24/2022 Appointment Radiation Oncology Sue Barry M.D. [address] [place] [address] documented as of this encounter Visit Diagnoses Not on filedocumented in this encounter Care Teams Lining Setter Relationship Specialty Start Date End Date Elsewhere, Pcp PCP - General Internal Medicine 03/16/22 documented as of this encounter
--- OUTSIDE RECORDS SUMMARY | 2022-08-14 22:16 | XMS_ITS | Encounter Summary ---
:1940 Author Organization [facility] Address [address] [place] [address] Care Team Providers Name Role Phone Elsewhere, Pcp Primary Care Provider Unavailable Reason for Visit Appointment Request (Routine) - Closed Specialty Diagnoses / Procedures Referred By Contact Refer red To Contact Dermatology Diagnoses Screening Examination Skin Cancer Referral ID Status Reason Start Date Expiration Date Visits Requ ested Visits Authorized [id number] Closed 04/12/2022 04/12/2023 1 1 Encounter Details Date Type Department Care Team Description 05/29/2022 Office Visit Department of Brooks, Mervat Keratosis Seborrheic (Primary Dx); Dermatology in [place], BIOSTATISTICS TEACHER, C.N.P., Screening Examination Skin Cancer; [place], [place] D.N.P. Dermatoheliosis; 200 [facility] 200 [facility] Personal History Of Other [place] [phone] [phone] Social History Tobacco Use Types Packs/Day Years [...] have completed or the highest Roland, MEd, WORM FARMER, MARIE) degree you have received? Sex [...] Radiation Oncology Sue Barry M.D. [address] [place] [address] documented as of this encounter Visit Diagnoses Diagnosis Keratosis Seborrheic - Primary Screening Examination Skin Cancer Dermatoheliosis Personal History Of Other Malignant Neop lasm Of Skin documented in this encounter Care Teams Reel Assembler Relationship Specialty Start Date End Date Elsewhere, Pcp PCP - General Internal Medicine 03/16/22 documented as of this encounter
--- OUTSIDE RECORDS SUMMARY | 2022-08-14 22:16 | XMS_ITS | Clinical Summary ---
:1940 Author Organization [facility] Address [address] [place] [address] Care Team Providers Name Role Phone Elsewhere, Pcp Primary Care Provider Unavailable Source Comments Patient records contain information from all sites at [facility]. For routine questions regarding patient records, call [phone] during business hours, M-F 8:00 AM - 5:00 PM Central Time. Record requests for emergency care only can be directed to [phone] at any time.[facility] Allergies Active Allergy Reactions Severity Noted [...] Cerner Medications Medication Sig Dispensed Refills Start End Status Date Date CALCIUM CARB/VIT Take 1 tablet 0 11/05/19 Active D3/MINERALS by mouth 2 12 (CALCIUM-VITAMIN D (two) times a ORAL) day. DOCOSAHEXANOIC ACID/EPA 3 (three) times 0 12/22/19 Active (FISH OIL ORAL) a day. 2 in AM 10 1 capsule in PM amoxicillin (AMOXIL) Take 2,000 mg 0 09/27/20 Active 500 mg capsule by mouth. 16 celecoxib (CeleBREX) Take 1 Capsule 90 capsule 3 05/25/20 Active 200 mg capsule (200 mg) by 21 mouth once daily with a meal. triamcinolone (KENALOG) Apply to 30 g 0 06/15/20 Active 0.1 % cream affected area 21 1-2 times daily as needed. Avoid face and groin. triamcinolone (KENALOG) Apply to 30 g 0 06/14/20 Active 0.1 % cream affected area 21 1-2 times daily as needed. Avoid face and groin. ketoconazole (NIZORAL) Apply 1 60 g 06/30/20 Active 2 % creamIndications: application 21 Intertrigo topically 2 (two) times a day. Apply to red areas between folds of skin. ketoconazole (NIZORAL) Apply 1 120 mL 06/30/20 Active 2 % shampooIndications: application 21 Intertrigo topically 3 (three) times a week. Apply to damp skin, lather, leave on 5 minutes, and rinse fluticasone propionate Administer 1 16 g 0 10/02/20 Active (FLONASE) 50 spray into each 21 mcg/actuation nasal nostril daily sprayIndications: as needed for Asthma Intrinsic (HCC) rhinitis or allergies. albuterol 90 Inhale 2 Puffs 54 g 02/17/20 Ac tive mcg/actuation inhaler by mouth every 22 4 hours if needed for wheezing. albuterol 90 Inhale 2 Puffs 54 g 02/17/20 Ac tive mcg/actuation inhaler by mouth every 22 4 hours if needed for wheezing. hydroCHLOROthiazide Take 1 Tablet 90 tablet 02/20/20 Active (HYDRODIURIL) 25 mg (25 mg) by 22 tablet mouth once daily. lisinopriL Take 1 Tablet 90 tablet 02/20/20 Activ e (PRINIVIL,ZESTRIL) 30 (30 mg) by 22 mg tablet mouth once daily. levothyroxine Take 1 Tablet 90 tablet 02/20/20 Ac tive (SYNTHROID, LEVOTHROID) (75 mcg) by 22 75 mcg tablet mouth once daily. pravastatin (PRAVACHOL) Take 1 Tablet 90 tablet 02/20/20 Active 40 mg tablet (40 mg) by 22 mouth once daily. montelukast (SINGULAIR) Take 1 tablet 90 tablet 02/20/20 Active 10 mg tablet (10 mg total) 22 by mouth daily. fluticasone Inhale 1 Puff 180 each 3 02/24/20 Acti ve propion-salmeteroL by mouth once 22 (Advair Diskus) 100-50 daily. mcg/actuation diskus inhaler azelastine (ASTELIN) Administer 2 30 mL 12 03/20/20 Active 137 mcg/spray (0.1 %) sprays into 22 nasal spray each nostril 2 (two) times a day. Use in each nostril as directed predniSONE (DELTASONE) Take 1 tablet a 20 tablet 0 08/03/20 Active 10 mg day for 3 days 22 tabletIndications: then 1/2 tablet Asthma Intrinsic (HCC) a day for 4 days predniSONE (DELTASONE) Take 1 tablet 20 tablet 0 10/02/2004/12 Discontinued 10 mg (10 mg total) 21 022 tabletIndications: by mouth daily. Asthma Intrinsic (HCC) Active Problems Problem Noted Date Obesity Body [...] Encounters Date Type Specialty Care Team Description 08/03/2022 Documentation Allergy and Valdemar Ma Immunology Cristiana Olivo 08/03/2022 Clinical Allergy and Valdemar Ma Prednisone refill Communication Immunology Cristiana Olivo - flare 08/03/2022 Refill Allergy and Valdemar Ma Med Refill Immunology Cristiana Olivo 05/29/2022 Office Visit Dermatology Brooks Mervat Keratosis S eborrheic (Primary Dx); A, TRAIN OPERATIONS SUPERVISOR, C.N.P., Screening E xamination Skin Cancer; D.N.P. Dermatoheliosis ; Personal Histor y Of Other [...] have completed or the highest Roland, MEd, TOILET ATTENDANT, MARIE) degree you have received? Sex Assigned at Date Recorded Female 06/26/2021 8:35 AM CDT Last Filed Vital Signs Vital Sign Reading Time Taken Comments Blood Pressure 130/62 02/15/2021 9:32 AM CDT Pulse 80 02/15/2021 9:32 AM CDT Temperature 36.9 ??C (98.4 ??F) 03/20/2022 8:54 AM CDT Respiratory Rate 12 02/15/2021 9:32 AM CDT Oxygen Saturation 97% 09/28/2019 10:15 AM INTERNET MARKETING INTERN Inhaled Oxygen Concentration - - Weight 99.5 kg (219 lb 4 oz) 03/20/2022 8:54 AM CDT Height 159.6 cm (5' 2.84) 03/20/2022 8:54 AM CDT Body Mass Index 39.04 03/20/2022 8:54 AM CDT Plan of Treatment Upcoming Encounters Date Type Specialty Care Team Description 08/22/2022 Clinical Communication Admitting/Central Scheduling 08/24/2022 Appointment Radiation Oncology Sue Barry M.D. [address] [place] [address] Health Maintenance Due Date Last Done Comments [...] Associated Diagnosis Comme nts OUTSIDE MG Routine 07/26/2022 10:25 AM Results for this MAMMOGRAM CDT procedure are i n the results section. OUTSIDE MG Routine 07/26/2022 8:45 AM Results f or this MAMMOGRAM CDT procedure are i n the results section. OUTSIDE US BREAST Routine 07/26/2022 8:30 AM Resu lts for this CDT procedure are i n the results section. OUTSIDE MG Routine 06/22/2022 10:50 AM Results for this MAMMOGRAM CDT procedure are i n the results section. OUTSIDE US BREAST Routine 06/22/2022 10:25 AM Res ults for this CDT procedure are i n the results section. OUTSIDE US BREAST Routine 06/19/2022 11:25 AM Res ults for this CDT procedure are i n the results section. OUTSIDE MG Routine 06/19/2022 10:55 AM Results for this MAMMOGRAM CDT procedure are i n the results section. OUTSIDE MG Routine 05/23/2022 2:50 PM Results f or this MAMMOGRAM CDT procedure are i n the results section. from Last 3 Months Results MM surgical specimen LT-Outside Mammogram (07/26/2022 10:25 AM CDT)Only the most recent of5 resultswithin the time period is included. Specimen (Source) Anatomical Location Collection Method / Collectio n Time Received Time / Laterality Volume Narrative IINM - 08/14/2022 1:28 PM INTERNET MARKETING INTERN This order has been created and auto-finalized [...] Code Phon e Number IIMS IIMS NA US BREAST NEEDLE LOC LT-Outside US Breast (07/26/2022 8:30 AM CDT)Only the most recent of3 resultswithin the time period is included. Specimen (Source) Anatomical Location Collection Method / Collectio n Time Received Time / Laterality Volume Narrative IIMS - 08/14/2022 1:28 PM INTERNET MARKETING INTERN This order has been created and auto-finalized [...] e / Group Dates MEDICARE MEDICARE A [id number] 2007-Pres [address] [place] [address] BLUE CROSS BCBS [place] [id number] 2016-Pres [phone] PO TURNER X Cost Share BLUE SHIELD BLUE COST ent [phone] [place] [address] (Home) JOHN Pascual [phone] Care Teams Marketing Project Lead Relationship Specialty Start Date End Date Elsewhere, Pcp PCP - General Internal Medicine 03/16/22
--- OUTSIDE RECORDS SUMMARY | 2022-08-14 22:16 | XMS_ITS | Encounter Summary ---
:1940 Author Organization [facility] Address [address] [place] [address] Care Team Providers Name Role Phone Elsewhere, Pcp Primary Care Provider Unavailable Reason for Visit Reason Comments Med Refill Encounter Details Date Type Department Care Team Description 08/03/2022 Refill Division of Allergic Diseases Valdemar Snowden M.D. Med Refill in [facility] [address] [facility] [address] [place] [address] [place] [address] [phone] Social History Tobacco Use Types Packs/Day Years [...] have completed or the highest Roland, MEd, COMPUTER ENGINEERING PROFESSOR, MARIE) degree you have received? Sex Assigned at Date Recorded Female 06/26/2021 8:35 AM CDT documented as of this encounter Plan of Treatment Upcoming Encounters Date Type Specialty Care Team Description 08/22/2022 Clinical Communication Admitting/Central Scheduling 08/24/2022 Appointment Radiation Oncology Sue Barry M.D. [address] [place] [address] documented as of this encounter Visit Diagnoses Diagnosis Asthma Intrinsic (HCC) documented in this encounter Care Teams Weld Engineer Relationship Specialty Start Date End Date Elsewhere, Pcp PCP - General Internal Medicine 03/16/22 documented as of this encounter
--- OUTSIDE RECORDS SUMMARY | 2022-08-14 22:16 | XMS_ITS | Encounter Summary ---
:1940 Author Organization [facility] Address [address] [place] [address] Care Team Providers Name Role Phone Elsewhere, Pcp Primary Care Provider Unavailable Encounter Details Date Type Department Care Team Description 08/03/2022 Documentation Division of Allergic Valdemar Ma, Diseases in [place] [address] [facility] [address] [place] [phone] (Wo rk) Social History Tobacco Use Types [...] have completed or the highest Roland, MEd, METALLURGICAL SPECIALIST, MARIE) degree you have received? Sex Assigned at Date Recorded Female 06/26/2021 8:35 AM CDT documented as of this encounter Progress Notes Valdemar Ma M.D. - 08/03/2022 4:01 PM CDT I spoke with Antwan FergusonGraves on the phone today. She reports that on July 26, she had surgery performed for breast cancer. This included lumpectomy and lymph node biopsy. This started off as via sedation and then did require general anesthesia. She was discharged the day of the surgery; therewas no overnight stay. She immediately noticed afterwards increasing phlegm and, with this, cough. Because this persisted for a few days after the surgery and was similar to her previous asthma flares, she started ellhtsvuht34 mg a day 5 days ago. Overall, she has noticed significant improvement with this and feels that the cough and wheeze is markedly decreased. She was able to walk around outdoors today at the school track without any difficulty. With this, she has not had any fever. She has not had any purulent sputum. Fortunately, she is much improved. At present, we will plan on continuing the prednisone for 10 mg aday for 3 more days and then decreasing to 5 mg a day for 4 days and then discontinuing. She is going to be following up with her surgeon in 3 days. If there are any problems or questions in the interim, she will let us know. If there is any acute worsening of symptoms, she knows to seek emergent care. Valdemar Ma M.D. CT CT Job ID: [id number] documented in this encounter Plan of Treatment Upcoming Encounters Date Type Specialty Care Team Description 08/22/2022 Clinical Communication Admitting/Central Scheduling 08/24/2022 Appointment Radiation Oncology Sue Barry M.D. [address] [place] [address] documented as of this encounter Visit Diagnoses Not on filedocumented in this encounter Care Teams Circuits Engineer Relationship Specialty Start Date End Date Elsewhere, Pcp PCP - General Internal Medicine 03/16/22 documented as of this encounter
--- OUTSIDE RECORDS SUMMARY | 2022-08-14 22:17 | XMS_ITS | Encounter Summary ---
:1940 Author Organization [facility] Address [address] [place] [address] Care Team Providers Name Role Phone Igor Horn P.A.-C. Primary Care Provider [phone] Reason for Visit Reason Comments Med Refill Encounter Details Date Type Department Care Team Description 07/04/2021 Refill Department of Family Medicine, Igor Ross P.A.-C. Med Refill [facility], in [address] [place] [phone] [place] [address] [place] [address] [phone] Social History Tobacco Use Types Packs/Day Years [...] have completed or the highest Roland, MEd, SUMMER BABYSITTER, MARIE) degree you have received? Sex Assigned at Date Recorded Female 06/26/2021 8:35 AM CDT documented as of this encounter Miscellaneous Notes Telephone Encounter - Lashonda Samuel - 07/04/2021 1:48 PM CDT Images from the original note were not included. Nurse review: Unable to forward request to provider; Discrepancy; Verification Required. Directions on med list are incomplete Primary Provider: Igor Horn P.A.-C. Pharmacy: [facility] [address] documented in this encounter Plan of Treatment Upcoming Encounters Date Type Specialty Care Team Description 08/22/2022 Clinical Communication Admitting/Central Scheduling 08/24/2022 Appointment Radiation Oncology Sue Barry M.D. [address] [place] [phone] documented as of this encounter Visit Diagnoses Not on filedocumented in this encounter Care Teams Dub Room Engineer Relationship Specialty Start Date End Date Igor Horn P.A.-C. PCP - General 06/14/18 03/15/[address] [place] [phone] documented as of this encounter
--- OUTSIDE RECORDS SUMMARY | 2022-08-14 22:17 | XMS_ITS | Encounter Summary ---
:1940 Author Organization [facility] Address [address] [place] [address] Care Team Providers Name Role Phone Igor Horn P.A.-C. Primary Care Provider [phone] Encounter Details Date Type Department Care [...] have completed or the highest Roland, MEd, CELLAR PUMPER, MARIE) degree you have received? Sex Assigned at Date Recorded Female 06/26/2021 8:35 AM CDT documented as of this encounter Plan of Treatment Upcoming Encounters Date Type Specialty Care Team Description 08/22/2022 Clinical Communication Admitting/Central Scheduling 08/24/2022 Appointment Radiation Oncology Sue Barry M.D. [address] [place] [address] documented as of this encounter Procedures Procedure [...] on filedocumented in this encounter Care Teams Perfect Binder Operator Relationship Specialty Start Date End Date Igor Horn P.A.-C. PCP - General 06/14/18 03/15/22 [address] [place] [address] documented as of this encounter
--- OUTSIDE RECORDS SUMMARY | 2022-08-14 22:17 | XMS_ITS | Encounter Summary ---
:1940 Author Organization [facility] Address [address] [place] [address] Care Team Providers Name Role Phone Igor Horn P.A.-C. Primary Care Provider [phone] Reason for Visit Reason Comments COVID Inquiry Encounter Details Date Type Department Care Team Description 10/23/2021 Clinical Communication Department of MELANIA Byrd [facility] Reyna Costa [facility], in [address] [address] [place], [place] [phone] (Work) [phone] Social History Tobacco Use Types Packs/Day Years [...] have completed or the highest Roland, MEd, COMPRESSOR OPERATOR ADJUSTER, MARIE) degree you have received? Sex Assigned at Date Recorded Female 06/26/2021 8:35 AM CDT documented as of this encounter Miscellaneous Notes Telephone Encounter - Diana Lawson - 10/23/2021 8:32 AM CST What is the purpose of the call?: Symptomatic (Calling PCP Office) Calling [place] PCP Office What region is the patient calling from? : [place] Have you tested positive for COVID-19 in [...] Because of symptoms, transfer patient to: : [place] COVID Nurse Line (End Screening) Symptom Onset Date of symptom onset: 10/21/21 Plan: Endpoint recommendation: Transferred to Nursing/COVID Line/Care Team *Reminder if sending patient for testing in [facility] or [facility], route encounter to the correct testing pool. TAL COMMUNICATIONS MANAGER documented in this encounter Plan of Treatment Upcoming Encounters Date Type Specialty Care Team Description 08/22/2022 Clinical Communication Admitting/Central Scheduling 08/24/2022 Appointment Radiation Oncology Sue Barry M.D. [address] [place] [address] documented as of this encounter Visit Diagnoses Not on filedocumented in this encounter Care Teams Graphite Pan Drier Tender Relationship Specialty Start Date End Date Igor Horn P.A.-C. PCP - General 06/14/18 03/15/[address] [place] [phone] documented as of this encounter
--- OUTSIDE RECORDS SUMMARY | 2022-08-14 22:17 | XMS_ITS | Encounter Summary ---
:1940 Author Organization [facility] Address [address] [place] [address] Care Team Providers Name Role Phone Igor Horn P.A.-C. Primary Care Provider [phone] Reason for Referral Outpatient (Routine) - Closed Specialty Diagnoses / Procedures Referred By Contact Refer red To Contact Diagnoses Asthma Intrinsic (HCC) Valdemar Ma M.D. [facility] Procedures Spirometry [address] [place] [phone] Referral ID Status Reason Start Date Expiration Date Visits Requ ested Visits Authorized [id number] Closed 02/12/2022 02/12/2023 1 1 Encounter Details Date Type Department Care Team Description 02/12/2022 Clinical Communication Division of Allergic Valdemar Ma Diseases in Geovani Ryder M.D. [place] [address] [facility] [address] [place] [phone] Social History Tobacco Use Types Packs/Day Years [...] have completed or the highest Roland, MEd, OPERATIONAL TRAINER, MARIE) degree you have received? Sex Assigned [...] Radiation Oncology Sue Barry M.D. [address] [place] [address] documented as of this encounter Results Spirometry (03/20/2022 8:51 AM CDT) [facility] VC MAX POST 2.57 L 03/20/2022 [facility] 2:58 PM CDT SUITE PostFVC 2.31 L 03/20/2022 [facility] 2:58 PM CDT SUITE PostFEV1 1.59 L 03/20/2022 [facility] 2:58 PM CDT SUITE FEV1/FVC POST 68.91 % 03/20/2022 [facility] 2:58 PM CDT SUITE FEF 25-75 % 0.97 L/s 03/20/2022 [facility] POST 2:58 PM CDT SU[address] PEF POST 4.78 L/s 03/20/2022 [facility] 2:58 PM CDT SU[address] FET POST 16.80 sec 03/20/2022 [facility] 2:58 PM CDT [address] VC MAX PRE 2.24 L 03/20/2022 [facility] 2:58 PM CDT SUITE FVC 2.12 L 03/20/2022 [facility] 2:58 PM CDT SUITE FEV1 1.40 L 03/20/2022 [facility] 2:58 PM CDT SUITE FEV1/FVC 66.11 % 03/20/2022 [facility] 2:58 PM CDT SUITE FLF61-73% 0.82 L/s 03/20/2022 [facility] 2:58 PM CDT [address] PEF PRE 4.64 L/s 03/20/2022 [facility] 2:58 PM [address]T [address] FET PRE 18.40 sec 03/20/2022 [facility] 2:58 PM CDT SU[address] SUBSTANCE POST Albuterol 03/20/2022 [facility] 2:[address] DOSE POST 2 Puff 03/20/2022 [facility] 2:58 PM CDT SUITE % PRED VC MAX 91 % % 03/20/2022 [facility] 2:58 PM CDT SU[address] FVC% 86 % % 03/20/2022 [facility] 2:58 PM CDT SUITE FEV1% 75 % % 03/20/2022 [facility] 2:58 PM CDT SUITE % PRED 86 % % 03/20/2022 [facility] FEV1/FVC 2:58 PM CDT SUITE % PRED FEF 54 % % 03/20/2022 [facility] 25-75% 2:58 PM CDT SUITE % PRED PEF 91 % % 03/20/2022 [facility] 2:58 PM CDT SUITE PRED VC MAX 2.46 03/20/2022 [facility] 2:58 PM CDT SUITE PRED FVC 2.46 03/20/2022 [facility] 2:58 PM CDT SUITE PRED FEV 1 1.87 03/20/2022 [facility] 2:58 PM CDT SUITE PRED FEV1/FVC 77.2 03/20/2022 [facility] 2:58 PM CDT SU[address] PRED FEF 1.53 03/20/2022 [facility] 25-75% 2:58 PM CDT SU[address] PRED PEF 5.1 03/20/2022 [facility] 2:58 PM CDT SUITE Specimen (Source) Anatomical Collection Method Collection Time Re ceived Time Location / / Volume Laterality 03/20/2022 8:51 AM CDT Impressions [facility] SUITE - 03/20/2022 2:58 PM C DT within normal limits Narrative This result has an attachment that is no t available. Procedure Note Valdemar Ma M.D. - 03/20/2022For matting of this note might be different from the original. IMPRESSION: within normal limits Valdemar Ma M.D. PFT ORDERABLES Performing Organization Address City/State/ZIP Code Phon e Number [facility] [address] documented in this encounter Visit Diagnoses Diagnosis Asthma Intrinsic (HCC) - Primary Asthma Intrinsic (HCC) documented in this encounter Care Teams Attendant Coin Operated Laundry Relationship Specialty Start Date End Date Igor Horn P.A.-C. PCP - General 06/14/18 03/15/22 [address] [place] [address] documented as of this encounter
--- OUTSIDE RECORDS SUMMARY | 2022-08-14 22:17 | XMS_ITS | Encounter Summary ---
:1940 Author Organization [facility] Address [address] [place] [address] Care Team Providers Name Role Phone Igor Horn P.A.-C. Primary Care Provider [phone] Encounter Details Date Type Department Care Team Description 03/03/2021 Clinical Communication Division of Allergic Volcheck Valdemar Diseases in [place]ani Ryder M.D. [address] [place] [phone] Social History Tobacco Use Types Packs/Day Years [...] More than 4 times per year 03/16/2022 [employer] services? Do you belong to any clubs [...] have completed or the highest Roland, MEd, CURATOR OF EDUCATION, MARIE) degree you have received? Sex Assigned at Date Recorded Female 06/26/2021 8:35 AM CDT documented as of this encounter Plan of Treatment Upcoming Encounters Date Type Specialty Care Team Description 08/22/2022 Clinical Communication Admitting/Central Scheduling 08/24/2022 Appointment Radiation Oncology Sue Barry M.D. [address] [place] [address] documented as of this encounter Visit Diagnoses Not on filedocumented in this encounter Care Teams Fruit Farmer Relationship Specialty Start Date End Date Igor Horn P.A.-C. PCP - General 06/14/18 03/15/22 [address] [place] [address] documented as of this encounter
--- OUTSIDE RECORDS SUMMARY | 2022-08-14 22:17 | XMS_ITS | Encounter Summary ---
:1940 Author Organization [facility] Address [address] [place] [address] Care Team Providers Name Role Phone Igor Horn P.A.-C. Primary Care Provider [phone] Reason for Visit Reason Comments Med Refill Encounter Details Date Type Department Care Team Description 09/13/2021 Refill Department of Family Medicine, Igor Ross P.A.-C. Med [facility] in [address] [place] [phone] [place] [address] [place] [address] [phone] Social History Tobacco Use Types Packs/Day Years [...] have completed or the highest Roland, MEd, CHOCOLATIER, MARIE) degree you have received? Sex Assigned at Date Recorded Female 06/26/2021 8:35 AM CDT documented as of this encounter Miscellaneous Notes Addendum Note - Gerson Reaves L.P.N. - 09/14/2021 1:43 PM MAINTENANCE PLANNER Addended by: GERSON REAVES on: 09/14/2021 01:43 PM Modules accepted: Orders TENANCE PLANNER Telephone Encounter - Gerson Reaves L.P.NAntwan - 09/14/2021 1:40 PM MAINTENANCE PLANNER SUBJECTIVE CHIEF COMPLAINT / REASON FOR CALL [...] The following references were used: provider Igor TENANCE PLANNER documented in this encounter Plan of Treatment Upcoming Encounters Date Type Specialty Care Team Description 08/22/2022 Clinical Communication Admitting/Central Scheduling 08/24/2022 Appointment Radiation Oncology Sue Barry M.D. [address] [place] [address] documented as of this encounter Visit Diagnoses Not on filedocumented in this encounter Care Teams Traffic Signal Repairer Relationship Specialty Start Date End Date Igor Horn P.A.-C. PCP - General 06/14/18 03/15/22 [address] [place] [address] documented as of this encounter
--- OUTSIDE RECORDS SUMMARY | 2022-08-14 22:17 | XMS_ITS | Encounter Summary ---
:1940 Author Organization [facility] Address [address] [place] [address] Care Team Providers Name Role Phone Igor Horn P.A.-C. Primary Care Provider [phone] Reason for Visit Reason Comments Med Refill Encounter Details Date Type Department Care Team Description 05/22/2021 Refill Department of Family Medicine, Igor Ross P.A.-C. Med Refill [facility], in [address] [place] [phone] [place] [address] [place] [address] [phone] Social History Tobacco Use Types Packs/Day Years [...] have completed or the highest Roland, MEd, ESCORT CAR DRIVER, MARIE) degree you have received? Sex Assigned at Date Recorded Female 06/26/2021 8:35 AM CDT documented as of this encounter Miscellaneous Notes Telephone Encounter - Kat Valenzuela L.P.N. - 05/25/2021 4:19 PM CDT Patient responded to portal message her arthritis started bothering her when she came back to [place] and restarted the Celebrex 200 mg daily [...] mouth once daily with a meal. Pharmacy: [facility] documented in this encounter Plan of Treatment Upcoming Encounters Date Type Specialty Care Team Description 08/22/2022 Clinical Communication Admitting/Central Scheduling 08/24/2022 Appointment Radiation Oncology Sue Barry M.D. [address] [place] [address] documented as of this encounter Visit Diagnoses Not on filedocumented in this encounter Care Teams E/M Engineer Relationship Specialty Start Date End Date Igor Horn P.A.-C. PCP - General 06/14/18 03/15/22 [address] [place] [address] documented as of this encounter
--- OUTSIDE RECORDS SUMMARY | 2022-08-14 22:17 | XMS_ITS | Encounter Summary ---
:1940 Author Organization [facility] Address [address] [place] [address] Care Team Providers Name Role Phone Igor Horn P.A.-C. Primary Care Provider [phone] Encounter Details Date Type Department Care Team Description 10/23/2021 Admin Visit Department of Family Medicine, [address] [address] [facility] [phone] Social History Tobacco Use Types Packs/Day Years [...] have completed or the highest Roland, MEd, DIESEL MECHANIC, MARIE) degree you have received? Sex Assigned at Date Recorded Female 06/26/2021 8:35 AM CDT documented as of this encounter Plan of Treatment Upcoming Encounters Date Type Specialty Care Team Description 08/22/2022 Clinical Communication Admitting/Central Scheduling 08/24/2022 Appointment Radiation Oncology Sue Barry M.D. [address] [place] [address] documented as of this encounter Visit Diagnoses Not on filedocumented in this encounter Additional Health Concerns Infection Onset Date Last Indicated Resolved Time COVID19 Pending 10/23/2021 10/23/2021 10/24/2021 12:22 PM CLINICAL EDITOR documented as of this encounter Care Teams Physical Education Professor Relationship Specialty Start Date End Date Igor Horn P.A.-C. PCP - General 06/14/18 03/15/22 [address] [place] [address] documented as of this encounter
--- OUTSIDE RECORDS SUMMARY | 2022-08-14 22:17 | XMS_ITS | Encounter Summary ---
:1940 Author Organization [facility] Address [address] [place] [address] Care Team Providers Name Role Phone Igor Horn P.A.-C. Primary Care Provider [phone] Encounter Details Date Type Department Care Team Description 10/25/2021 Orders Only [facility] Nimisha Deutsch at [facility] MISA, C.N.PAntwan, M.S.N. [address] [place] [address] [place] [address] [place] [phone] (Wo rk) Social History Tobacco Use Types [...] meetings of the More than 4 times [facility] year 03/16/2022 clubs or organizations you [...] have completed or the highest Roland, MEd, MANUFACTURING QUALITY INSPECTOR, MARIE) degree you have received? Sex Assigned at Date Recorded Female 06/26/2021 8:35 AM CDT documented as of this encounter Plan of Treatment Upcoming Encounters Date Type Specialty Care Team Description 08/22/2022 Clinical Communication Admitting/Central Scheduling 08/24/2022 Appointment Radiation Oncology Sue Barry M.D. [address] [place] [address] documented as of this encounter Visit Diagnoses Not on filedocumented in this encounter Care Teams Installment Dealer Relationship Specialty Start Date End Date Igor Horn P.A.-C. PCP - General 06/14/18 03/15/22 [address] [place] [address] documented as of this encounter
--- OUTSIDE RECORDS SUMMARY | 2022-08-14 22:17 | XMS_ITS | Encounter Summary ---
:1940 Author Organization [facility] Address [address] [place] [address] Care Team Providers Name Role Phone Igor Horn P.A.-C. Primary Care Provider [phone] Reason for Visit Reason Comments Med Refill Encounter Details Date Type Department Care Team Description 02/17/2022 Refill Department of Family Medicine, Igor Ross P.A.-C. Med Refill [facility], in [address] [place] [phone] [place] [address] [place] [address] [phone] Social History Tobacco Use Types Packs/Day Years [...] have completed or the highest Roland, MEd, TOW PICKER, MARIE) degree you have received? Sex Assigned [...] Radiation Oncology Sue Barry M.D. [address] [place] [address] documented as of this encounter Visit Diagnoses Not on filedocumented in this encounter Care Teams Grain Broker Relationship Specialty Start Date End Date Igor Horn P.A.-C. PCP - General 06/14/18 03/15/22 [address] [place] [address] documented as of this encounter
--- OUTSIDE RECORDS SUMMARY | 2022-08-14 22:17 | XMS_ITS | Encounter Summary ---
:1940 Author Organization [facility] Address [address] [place] [address] Care Team Providers Name Role Phone Igor Horn P.A.-C. Primary Care Provider [phone] Reason for Visit Reason Comments Medication Question Encounter Details Date Type Department Care Team Description 10/02/2021 Clinical Communication Division of Anil, Medic ation Question Allergic Diseases Valdemar Olivo M.D. in [address] [place] [address] [place], [place] [phone] (Work) [phone] Social History Tobacco Use Types Packs/Day Years [...] have completed or the highest Roland, MEd, UNDERWRITING TECHNICIAN, MARIE) degree you have received? Sex Assigned at Date Recorded Female 06/26/2021 8:35 AM CDT documented as of this encounter Miscellaneous Notes Addendum Note - John Paul Flores R.N. - 10/02/2021 12:56 PM CATEGORY SPECIALIST Addended by: JONH PAUL FLORES on: 10/02/2021 12:56 PM Modules accepted: Orders GORY SPECIALIST Telephone Encounter - Anitha Alexander R.N. - 10/02/2021 11:44 AM CST Question(s) to be answered: Would you be able to fill a one time refill for Advair and Prednisone to [place], [place]? Background: Patient is in [place] visiting her children. She is requesting a one time refill of the noted medications in case she would need them before she returns from her trip. She is taking prednisone 10 mgdaily, as her asthma acted up some while in [place]. Her symptoms have improved since taking thisdosage. Date last seen: 03/07/21 Diagnoses: Asthma Recommendations: Please fill one time refill of medications as you see fit. Medications pended for review. GORY SPECIALIST Telephone Encounter - Karina Perdomo - 10/02/2021 11:39 AM CST She is currently in [facility] visiting family. She has an unusual medication question. GORY SPECIALIST documented in this encounter Plan of Treatment Upcoming Encounters Date Type Specialty Care Team Description 08/22/2022 Clinical Communication Admitting/Central Scheduling 08/24/2022 Appointment Radiation Oncology Sue Barry M.D. [address] [place] [address] documented as of this encounter Visit Diagnoses Diagnosis Asthma Intrinsic (HCC) - Primary documented in this encounter Care Teams Assisted Living Home Director Relationship Specialty Start Date End Date Igor Horn P.A.-C. PCP - General 06/14/18 03/15/[address] [place] [address] documented as of this encounter
--- OUTSIDE RECORDS SUMMARY | 2022-08-14 22:17 | XMS_ITS | Encounter Summary ---
:1940 Author Organization [facility] Address [address] [place] [address] Care Team Providers Name Role Phone Igor Horn P.A.-C. Primary Care Provider [phone] Reason for Referral Outpatient (Routine) - Closed Specialty Diagnoses / Procedures Referred By Contact Refer red To Contact Allergy and Immunology Valdemar [place] M.D. [address] [place] [address] Referral ID Status Reason Start Date Expiration Date Visits Requ ested Visits Authorized [id number] Closed 03/07/2021 03/07/2022 1 1 Reason for Visit Outpatient (Routine) - Closed Specialty Diagnoses / Procedures Referred By Contact Refer red To Contact Allergy parmjit Immunology Valdemar Ma [place] [address] Referral ID Status Reason Start Date Expiration Date Visits Requ ested Visits Authorized [id number] Closed 01/10/2021 01/10/2022 1 1 Encounter Details Date Type Department Care Team Description 03/07/2021 Office Visit Division of Allergic Valdemar Maa Intrinsic (HCC) Diseases in Geovani Ryder M.D. (Primary Dx) [place] [address] [facility] 200 [place] [address] [phone] Social History Tobacco Use Types Packs/Day Years [...] have completed or the highest Roland, MEd, SYSTEMS ARCHITECT, MARIE) degree you have received? Sex [...] Ms. Cedeño is a 80-year-old female from [place], [place], who ashley in [place] from August through February with longstanding history of asthma. She was last seen in the division in August of 2018. Over the course of the last year, in general she had done well except for the December time frame whilein [place]. At that time, she had increased cough, [...] of her symptoms in December while in [place] and generally does better here in [place] from the breathing standpoint. Unfortunately, it is [...] this prior to her going back to [place] in August. At present, we will continue [...] Valdemar Ma M.D. CT CT Job ID: [id number] documented in this encounter Plan of Treatment Upcoming Encounters Date Type Specialty Care Team Description 08/22/2022 Clinical Communication Admitting/Central Scheduling 08/24/2022 Appointment Radiation Oncology Sue Barry M.D. [address] [place] [address] Scheduled Referrals Name Type Priority Associated Order Schedule Diagnoses Allergy and Outpatient Referral Routine Expected : Immunology office 03/07/2022 visit (clinic) (Approximate) , Expires: 03/07/2024 documented as of this encounter Visit Diagnoses Diagnosis Asthma Intrinsic (HCC) - Primary documented in this encounter Care Teams Warp Knitter Helper Relationship Specialty Start Date End Date Igor Horn P.A.-C. PCP - General 06/14/18 03/15/22 [address] [place] [address] documented as of this encounter
--- OUTSIDE RECORDS SUMMARY | 2022-08-14 22:17 | XMS_ITS | Encounter Summary ---
:1940 Author Organization [facility] Address [address] [place] [address] Care Team Providers Name Role Phone Igor Horn P.A.-C. Primary Care Provider [phone] Reason for Visit Reason Comments Med Refill Encounter Details Date Type Department Care Team Description 06/13/2021 Refill Department of Family Medicine, Iogr Ross P.A.-C. Med Refill [facility], in [address] [place] [address] [place] [address] [place] [address] [phone] Social History Tobacco Use Types Packs/Day Years [...] have completed or the highest Roland, MEd, AUTOMATIC I THREADING MACHINE FEEDER, MARIE) degree you have received? Sex Assigned at Date Recorded Female 06/26/2021 8:35 AM CDT documented as of this encounter Plan of Treatment Upcoming Encounters Date Type Specialty Care Team Description 08/22/2022 Clinical Communication Admitting/Central Scheduling 08/24/2022 Appointment Radiation Oncology Sue Barry M.D. [address] [place] [address] documented as of this encounter Visit Diagnoses Not on filedocumented in this encounter Care Teams Teachers' Aide Relationship Specialty Start Date End Date Igor Horn P.A.-C. PCP - General 06/14/18 03/15/22 [address] [place] [address] documented as of this encounter
--- OUTSIDE RECORDS SUMMARY | 2022-08-14 22:17 | XMS_ITS | Encounter Summary ---
:1940 Author Organization [facility] Address [address] [place] [address] Care Team Providers Name Role Phone Igor Horn P.A.-C. Primary Care Provider [phone] Reason for Visit Reason Comments Med Refill Encounter Details Date Type Department Care Team Description 02/23/2022 Refill Department of Family Medicine, Igor Ross P.A.-C. Med Refill [facility], in [address] [place] [address] [place] [address] [place] [address] [phone] Social History Tobacco Use Types Packs/Day Years [...] have completed or the highest Roland, MEd, EMERGENCY MEDICINE PHYSICIAN, MAREI) degree you have received? Sex Assigned at Date Recorded Female 06/26/2021 8:35 AM CDT documented as of this encounter Miscellaneous Notes Telephone Encounter - Lauren Hidalgo - 02/23/2022 10:06 AM CDT Rhett Diskus - Pt will out on Saturday, please send to [facility] documented in this encounter Plan of Treatment Upcoming Encounters Date Type Specialty Care Team Description 08/22/2022 Clinical Communication Admitting/Central Scheduling 08/24/2022 Appointment Radiation Oncology Sue Barry M.D. [address] [place] [address] documented as of this encounter Visit Diagnoses Not on filedocumented in this encounter Care Teams Mixer Operator Helper Hot Metal Relationship Specialty Start Date End Date Igor Horn P.A.-C. PCP - General 06/14/18 03/15/22 [address] [place] [address] documented as of this encounter
--- OUTSIDE RECORDS SUMMARY | 2022-08-14 22:17 | XMS_ITS | Encounter Summary ---
:1940 Author Organization [facility] Address [address] [place] [address] Care Team Providers Name Role Phone Igor Horn P.A.-C. Primary Care Provider [phone] Reason for Visit Outpatient (Routine) - Closed Specialty Diagnoses / Procedures Referred By Contact Refer red To Contact Dermatology Diagnoses Lesion Skin Igor Horn P.A.-C. 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 Cancer Skin Squamous Cell Personal Histo ry; [place] [address] [place] [address] Tumor Skin Uncertain Behavior; [address] [place] [address] Dermatoheliosis; [place] [address] Angioma Salmeron; [phone] [facility] Social History Tobacco Use Types Packs/Day [...] 03/16/2022 organizations such as christian groups, unions, fraWorthPoint or athletic groups, or school groups? How [...] have completed or the highest Roland, MEd, CARPET TECHNICIAN, MARIE) degree you have received? Sex Assigned at Date Recorded Female 06/26/2021 8:35 AM CDT documented as of this encounter Progress Notes Kathryn Moreau, R.N. - 06/30/2021 10:00 AM CDT Shave biopsy with electrodesiccation and curettage on the lower back was/were performed as ordered and outlined by Mervat Guy ([id number]) TOUR ESCORT, HEALTHCARE BUSINESS ANALYST, MSN in the clinical note dated with [...] the breasts and under the abdomen for corf-qu-ljzi irritation, which worsened this summer. The patient does spend her ashley in [place], and tries to be diligent withphotoprotection. Allergies [...] the patient by letter. Patient given pamphlet HR9311. The anesthesia used was 1% lidocaine with [...] Radiation Oncology Sue Barry M.D. [address] [place] [address] documented as of this encounter Procedures Procedure Name Priority Date/Time Associated Diagnosis [facility] DERMATOPATHOLOGY Routine 06/30/2021 10:01 AM Cancer Skin Basal Results for this CDT Cell Personal procedure are in History the results Cancer Skin Squamous section . Cell Personal History Keratosis Seborr heic Tumor Skin Uncertain Behavior documented in this encounter Results Dermatopathology (06/30/2021 10:01 AM CDT) Component Value Ref Test Analysis Performed At [facility] gist Range Method Time Signature 07/05/2021 [facility] 8:24 AM CDT Report Wicho Cameron 07/05/2021 [facility] electronically Camilleri, 8:24 AM CDT signed by Cristiana Gross Description Received in formalin labeled with the patient's n vikram, 07/05/2021 [facility] medical record number, and right lower paraspinal [...] PATH DERM O RDERABLES Performing Organization Address City/State/[facility] Code Phon e Number [facility] - [address] [place], [place] [address] [facility] [place] [address] 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 PCP - General 06/14/18 03/15/22 [address] [place] [phone] documented as of this encounter
--- OUTSIDE RECORDS SUMMARY | 2022-08-14 22:17 | XMS_ITS | Encounter Summary ---
:1940 Author Organization [facility] Address [address] [place] [address] Care Team Providers Name Role Phone Igor Horn P.A.-C. Primary Care Provider [phone] Reason for Visit Reason Comments Med Refill Encounter Details Date Type Department Care Team Description 02/16/2022 Refill Department of Family Medicine, Igor Ross P.A.-C. Med Refill [facility], in [address] [place] [phone] [place] [address] [place] [address] [phone] Social History Tobacco Use Types Packs/Day Years [...] have completed or the highest Roland, MEd, FEATURES REPORTER, MARIE) degree you have received? Sex Assigned at Date Recorded Female 06/26/2021 8:35 AM CDT documented as of this encounter Plan of Treatment Upcoming Encounters Date Type Specialty Care Team Description 08/22/2022 Clinical Communication Admitting/Central Scheduling 08/24/2022 Appointment Radiation Oncology Sue Barry M.D. [address] [place] [address] documented as of this encounter Visit Diagnoses Not on filedocumented in this encounter Care Teams General Office Dispatcher Relationship Specialty Start Date End Date Igor Horn P.A.-C. PCP - General 06/14/18 03/15/22 [address] [place] [address] documented as of this encounter
--- OUTSIDE RECORDS SUMMARY | 2022-08-14 22:17 | XMS_ITS | Encounter Summary ---
:1940 Author Organization [facility] Address [address] [place] [address] Care Team Providers Name Role Phone Igor Horn P.A.-C. Primary Care Provider [phone] Reason for Visit Reason Comments COVID Nurse Line Triage Encounter Details Date Type Department Care Team Description 10/23/2021 Nurse Triage Department of [facility] Niharika Live C OVID Nurse Line; Medicine, [facility], in [place], [place] (Work) [address] [place] [address] Social History Tobacco Use Types Packs/Day Years [...] have completed or the highest Roland, MEd, DEBURRING TECHNICIAN, MARIE) degree you have received? Sex Assigned at Date Recorded Female 06/26/2021 8:35 AM CDT documented as of this encounter Miscellaneous Notes Telephone Encounter - Niharika Evans, RAntwanN. - 10/23/2021 8:46 AM MICROSOFT DYNAMICS CONSULTANT Chief Complaint / Reason for Call Patient [...] RSV and Strep Select appropriate region: : [place] Do you have any of the following [...] (Oseltamivir)?: Yes and patient is an established [facility] patient*. When screening complete, [...] swabbed for COVID-19 and Influenza, sent to [place] located at [address] [place] [address] ([facility]). An appointment is required for testing, please call [phone] Saturday-Saturday 7am to 6pm and Saturday & [...] frequently with soap and water, use hand final armature tester if soap and water aren't available. -Wear [...] Yes The following references were used: [facility] novel coronavirus (COVID- 19) resources CDC web site https://www.cdc.gov/coronavirus/2019-ncov/your-health/index.html Nursing judgement OSOFT DYNAMICS CONSULTANT documented in this encounter Plan of Treatment Upcoming Encounters Date Type Specialty Care Team Description 08/22/2022 Clinical Communication Admitting/Central Scheduling 08/24/2022 Appointment Radiation Oncology Sue Barry M.D. [address] [place] [address] documented as of this encounter Visit Diagnoses Not on filedocumented in this encounter Care Teams Content Manager Relationship Specialty Start Date End Date Igor Horn P.A.-C. PCP - General 06/14/18 03/15/22 [address] [place] [address] documented as of this encounter
--- OUTSIDE RECORDS SUMMARY | 2022-08-14 22:17 | XMS_ITS | Encounter Summary ---
:1940 Author Organization [facility] Address [address] [place] [address] Care Team Providers Name Role Phone Igor Horn P.A.-C. Primary Care Provider [phone] Encounter Details Date Type Department Care Team Description 08/01/2021 Orders Only [facility] PCP [facility] Sa tanisha Arora M.D. [address] [place], [place] [phone] (Wo rk) Social History [...] have completed or the highest [place], MEd, FLORAL CLERK, MARIE) degree you have received? Sex Assigned at Date Recorded Female 06/26/2021 8:35 AM CDT documented as of this encounter Plan of Treatment Upcoming Encounters Date Type Specialty Care Team Description 08/22/2022 Clinical Communication Admitting/Central Scheduling 08/24/2022 Appointment Radiation Oncology Sue Barry M.D. [address] [place] [address] documented as of this encounter Visit Diagnoses Not on filedocumented in this encounter Care Teams Oyster Washer Relationship Specialty Start Date End Date Igor Horn P.A.-C. PCP - General 06/14/18 03/15/22 [address] [place] [address] documented as of this encounter
--- OUTSIDE RECORDS SUMMARY | 2022-08-14 22:17 | XMS_ITS | Encounter Summary ---
:1940 Author Organization [facility] Address [address] [place] [address] Care Team Providers Name Role Phone Igor Horn P.A.-C. Primary Care Provider Reason for Visit Reason Comments Med Refill Encounter Details Date Type Department Care Team Description 02/18/2022 Refill Department of Family Medicine, Igor Ross P.A.-C. Med Refill [facility], in [address] [place] [phone] [place] [address] [place] [address] [phone] Social History Tobacco Use Types Packs/Day Years [...] have completed or the highest [place], MEd, BRONZE PLATER, MARIE) degree you have received? Sex Assigned [...] Radiation Oncology Sue Barry M.D. [address] [place] [address] documented as of this encounter Visit Diagnoses Not on filedocumented in this encounter Care Teams Supercharger Mechanic Relationship Specialty Start Date End Date Igor Horn P.A.-C. PCP - General 06/14/18 03/15/22 [address] [place] [address] documented as of this encounter
--- OUTSIDE RECORDS SUMMARY | 2022-08-14 22:17 | XMS_ITS | Encounter Summary ---
:[address] [facility] Address [address] [place] [address] Care Team Providers Name Role Phone Igor Horn P.A.-C. Primary Care Provider [phone] Encounter Details Date Type Department Care Team Description 10/23/2021 Clinical Communication Department of Igor Byrd, Medicine, Bertha Langley [facility], in [address] [address] [place], [place] [phone] [address] (Work) [phone] Social History Tobacco Use Types Packs/Day Years [...] have completed or the highest Roland, MEd, PRESS MACHINE FEEDER, MARIE) degree you have received? Sex Assigned at Date Recorded Female 06/26/2021 8:35 AM CDT documented as of this encounter Plan of Treatment Upcoming Encounters Date Type Specialty Care Team Description 08/22/2022 Clinical Communication Admitting/Central Scheduling 08/24/2022 Appointment Radiation Oncology Sue Barry M.D. [address] [place] [address] documented as of this encounter Visit Diagnoses Not on filedocumented in this encounter Care Teams Pool Technician Relationship Specialty Start Date End Date Igor Horn P.A.-C. PCP - General 06/14/18 03/15/22 [address] [place] [address] documented as of this encounter
--- OUTSIDE RECORDS SUMMARY | 2022-08-14 22:17 | XMS_ITS | Encounter Summary ---
:1940 Author Organization [facility] Address [address] [place] [address] Care Team Providers Name Role Phone Igor Horn P.A.-C. Primary Care Provider [phone] Reason for Visit Reason Onset Date Comments Testing For Upper Respiratory Virus Symptoms 10/23/2021 Encounter Details Date Type Department Care Team Description 10/23/2021 External Outreach Department of [facility] Kartik Jimenez Contact With And (Suspected) Exposure To COVID-19; Medicine, [facility] John Durant Infection Upper Respiratory Building, in [address] [address] [place], [place] [phone] [address] (Work) [phone] Social History Tobacco Use Types Packs/Day Years [...] have completed or the highest Roland, MEd, HOME AND SCHOOL VISITOR, MARIE) degree you have received? Sex Assigned at Date Recorded Female 06/26/2021 8:35 AM CDT documented as of this encounter Progress Notes Trang Bueno R.N. - 10/23/2021 9:57 AM CST Encounter created for symptomatic infectious disease screening with possible COVID, Influenza, RSV, and/or Group A Strep testing. OL EXAMINER documented in this encounter Plan of Treatment Upcoming Encounters Date Type Specialty Care Team Description 08/22/2022 Clinical Communication Admitting/Central Scheduling 08/24/2022 Appointment Radiation Oncology Seu Barry M.D. [address] [place] [address] documented as of this encounter Procedures Procedure Name Priority Date/Time Associated Diagnosis Comme nts SARS CORONAVIRUS-2 Routine 10/23/2021 2:57 PM Contact With And Results for this RNA, V SCHOOL EXAMINER (Suspected) Exposure procedu re are in To COVID-19 the results section. SARS-COV-2, FLU Routine 10/23/2021 2:56 PM Result s for this A+B, AND RSV PCR, V SCHOOL EXAMINER procedur e are in the results section. RSV RNA PCR DETECT, Routine 10/23/2021 2:56 PM Re sults for this V SCHOOL EXAMINER procedure are i n the results section. documented in this encounter Results SARS Coronavirus-2 RNA, V Symptomatic (10/23/2021 2:57 PM SCHOOL EXAMINER) Patholo gist Method Time Signature SARS-CoV-2 Swab, 10/24/2021 MKTO Specimen Nasopharynx 12:21 PM Source SCHOOL EXAMINER SARS CoV-2 Undetected Undetected 10/24/2021 MKTO RNA, TMA 12:21 PM SCHOOL EXAMINER Comment: SARS-CoV-2 RNA absent. This result does not rule out COVID-19 in the patient, as the sensitivity of the test depends o n the timing of the specimen collection and the quality of the specim en. Result should be correlated with patient's history and clinical presentat ion. ----ADDITIONAL INFORMATION---- This molecular amplification test was pe rformed using the Aptima SARS-CoV-2 assay ([employer] on the PingStamps tem under emergency use authorization (EUA) by the U.S. Food and Drug Administ ration. Fact sheets for this EUA assay can be fo und at the following links: For Healthcare Providers: https://www.fd a.gov/media/293761/download For Patients: https://www.fda.gov/media/ 684460/download Specimen Anatomical Collection Method Collection Time Receive d Time (Source) Location / / Volume Laterality Varies 10/23/2021 2:57 PM (Nasopharynx) SCHOOL EXAMINER 10:30 PM SCHOOL EXAMINER Kartik Jimenez D.O. LAB MICROBIOLOGY - GENERAL O RDERABLES Performing Organization Address City/State/ZIP Code Phon e Number [facility]- [address] [place] [id number] [place] [address] RSV RNA PCR Detect, V (10/23/2021 2:56 PM SCHOOL EXAMINER) Analysis Performed At [facility] logist Time Signature RSV RNA PCR Undetected Undetected 10/25/2021 [facility] 1:08 PM SCHOOL EXAMINER Comment: RSV RNA is absent. RSV Specimen Source Nasopharynx 10/25/2021 1:08 PM SCHOOL EXAMINER [facility] Comment: ----ADDITIONAL INFORMATION---- Testing was performed using the leann In fluenza A/B & RSV UC assay ([employer] on the leann 68 00 / 8800 System, and only the RSV portion of this assay has been validated for testing. This test was developed and its performa nce characteristics determined by [facility] in a manner consistent with CLIA requirements. This test has not been cleared or approved by the U.S. Mark d and Drug Administration. Specimen Anatomical Collection Method Collection Time Receive d Time (Source) Location / / Volume Laterality Varies 10/23/2021 2:56 PM 6:15 SCHOOL EXAMINER PM SCHOOL EXAMINER Kartik Jimenez D.O. LAB MICROBIOLOGY - GENERAL O RDERABLES Performing Organization Address City/State/ZIP Code Phon e Number [facility] [address] [place] [id number] [place], [place] [address]t. [place] [address] Laboratory Medicine and Pathology [address] [place] (ABNORMAL) SARS-CoV-2, Flu A+B, and RSV PCR, V (10/23/2021 2:56 PM SCHOOL EXAMINER) [facility] Method Time Signature Influenza A Detected (A) Undetected 10/24/2021 [facility] RNA PCR 11:22 PM SCHOOL EXAMINER Comment: Influenza A RNA present. Influenza B RNA PCR Undetected Undetected 10/24/2021 11:22 P M SCHOOL EXAMINER SDS Comment: Influenza B RNA absent. SARS CoV-2 RNA PCR Undetected Undetected 10/24/2021 11:22 PM SCHOOL EXAMINER SDS Comment: SARS-CoV-2 RNA absent. This result does not rule out COVID-19 in the patient, as the sensitivity of the test depends o n the timing of the specimen collection and the quality of the specim en. Result should be correlated with patient's history and clinical presentat ion. SARS-CoV-2 & Flu A/B Specimen Source Nasopharynx 0 10/24/2021 11:22 PM SCHOOL EXAMINER SDS Comment: ----ADDITIONAL INFORMATION---- This PCR test is performed using the cob as SARS-CoV-2 & Influenza A/B assay ([employer] on the Mdundoas 6800 / 8800 Systems, and it has received Emergency Use Authorization (EU A) by the U.S. Food and Drug Administration. Fact sheets for this Emergency Use Autho rization (EUA) assay can be found at the following links: https://www.fda.gov/media/360124/downloa d for Healthcare Providers https://www.fda.gov/media/089158/downloa d for Patients Specimen Anatomical Collection Method Collection Time Receive d Time (Source) Location / / Volume Laterality Varies 10/23/2021 2:56 PM 6:15 SCHOOL EXAMINER PM SCHOOL EXAMINER Kartik Jimenez D.O. LAB MICROBIOLOGY - GENERAL O RDERABLES Performing Organization Address City/State/[facility] Code Phon e Number [facility] [address] [place] [address] [place] [address] Laboratory Medicine and Pathology [address] [place] documented in this encounter Visit Diagnoses Diagnosis Contact With And (Suspected) Exposure To COVID-19 Infection Upper Respiratory documented in this encounter Additional Health Concerns Infection Onset Date Last Indicated Resolved Time COVID19 Pending 10/23/2021 10/23/2021 10/24/2021 12:22 PM SCHOOL EXAMINER documented as of this encounter Care Teams Hypercil Core Transformer Assembler Relationship Specialty Start Date End Date Igor Horn P.A.-C. PCP - General 06/14/18 03/15/22 [address] [place] [address] documented as of this encounter
--- OUTSIDE RECORDS SUMMARY | 2022-08-14 22:17 | XMS_ITS | Encounter Summary ---
:1940 Author Organization [facility] Address [address] [place] [address] Care Team Providers Name Role Phone Igor Horn P.A.-C. Primary Care Provider [phone] Encounter Details Date Type Department Care Team Description 02/19/2022 Clinical Communication Department of Igor Byrd, Medicine, Bertha Langley [facility], in [address] [address] [place], [place] [phone] [address] (Work) [phone] Social History Tobacco Use Types Packs/Day Years [...] have completed or the highest Roland, MEd, EXECUTIVE ACCOUNT MANAGER, MARIE) degree you have received? Sex [...] Call back Name of Medication (if relevant): [facility] Please send all scheduling replies to scheduling pool. documented in this encounter Plan of Treatment Upcoming Encounters Date Type Specialty Care Team Description 08/22/2022 Clinical Communication Admitting/Central Scheduling 08/24/2022 Appointment Radiation Oncology Sue Barry M.D. [address] [place] [address] documented as of this encounter Visit Diagnoses Not on filedocumented in this encounter Care Teams Vacuum Conditioner Operator Relationship Specialty Start Date End Date Igor Horn P.A.-C. PCP - General 06/14/18 03/15/22 [address] [place] [address] documented as of this encounter
--- OUTSIDE RECORDS SUMMARY | 2022-08-14 22:17 | XMS_ITS | Encounter Summary ---
:1940 Author Organization [facility] Address [address] [place] [address] Care Team Providers Name Role Phone Apolonia Horn P.A.-C. Primary Care Provider [phone] Reason for Visit Reason Comments Communication Derm Encounter Details Date Type Department Care Team Description 05/10/2021 Clinical Department of Steve Horn (Derm) Communication [facility] Medicine[facility]polonia [facility] [place], [address] [place] [address] [address] [facility] [address] [place], [place] [phone] [address] (Work) [phone] Social History Tobacco Use Types Packs/Day Years [...] or relatives? How often do you attend mandaeism or More than 4 times per year 03/16/2022 druze services? Do you belong to any clubs or Yes 03/16/2022 organizations such as mandaeism groups, unions, fraternal or athletic groups, or [...] completed or the highest Roland, MEd, MEDICAL SPECIALIST, MARIE) degree you have received? Sex [...] order for her to see Dermatology in [place]. Thank you. documented in this encounter Plan of Treatment Upcoming Encounters Date Type Specialty Care Team Description 08/22/2022 Clinical Communication Admitting/Central Scheduling 08/24/2022 Appointment Radiation Oncology Sue Barry M.D. [address] [place] [address] documented as of this encounter Visit Diagnoses Diagnosis Rash - Primary documented in this encounter Care Teams Loss Control Consultant Relationship Specialty Start Date End Date Apolonia Horn P.A.-C. PCP - General 06/14/18 03/15/22 [address] [place] [address] documented as of this encounter
--- OUTSIDE RECORDS SUMMARY | 2022-08-14 22:17 | XMS_ITS | Encounter Summary ---
:1940 Author Organization [facility] Address [address] [place] [address] Care Team Providers Name Role Phone Elsewhere, Pcp Primary Care Provider Unavailable Reason for Visit Reason Comments Med Refill Encounter Details Date Type Department Care Team Description 02/19/2022 Refill Department of Family Medicine, Igor Ross P.A.-C. Med Refill [facility], in [address] [place] [address] [place] [address] [place] [address] [phone] Social History Tobacco Use Types Packs/Day Years [...] have completed or the highest Roland, MEd, PET CARE WORKER, MARIE) degree you have received? Sex Assigned at Date Recorded Female 06/26/2021 8:35 AM CDT documented as of this encounter Plan of Treatment Upcoming Encounters Date Type Specialty Care Team Description 08/22/2022 Clinical Communication Admitting/Central Scheduling 08/24/2022 Appointment Radiation Oncology Sue Barry M.D. [address] [place] [address] documented as of this encounter Visit Diagnoses Not on filedocumented in this encounter Additional Health Concerns Infection Onset Date Last Indicated Resolved Time COVID19 Pending 03/16/2022 03/16/2022 03/16/2022 11:54 PM CDT documented as of this encounter Care Teams Welfare Supervisor Relationship Specialty Start Date End Date Elsewhere, Pcp PCP - General Internal Medicine 03/16/22 documented as of this encounter
--- OUTSIDE RECORDS SUMMARY | 2022-08-14 22:17 | XMS_ITS | Encounter Summary ---
:1940 Author Organization [facility] Address [address] [place] [address] Care Team Providers Name Role Phone Elsewhere, Pcp Primary Care Provider Unavailable Reason for Visit Reason Comments Pre-visit Intake Encounter Details Date Type Department Care Team Description 03/16/2022 Clinical Communication Visit Review in Pr e-visit Intake [place], [place] [address] [place], [place] [address] Social History Tobacco Use Types Packs/Day Years [...] have completed or the highest Roland, MEd, TAKE AWAY MAN, MARIE) degree you have received? Sex Assigned at Date Recorded Female 06/26/2021 8:35 AM CDT documented as of this encounter Plan of Treatment Upcoming Encounters Date Type Specialty Care Team Description 08/22/2022 Clinical Communication Admitting/Central Scheduling 08/24/2022 Appointment Radiation Oncology Sue Barry M.D. [address] [place] [address] documented as of this encounter Visit Diagnoses Not on filedocumented in this encounter Additional Health Concerns Infection Onset Date Last Indicated Resolved Time COVID19 Pending 03/16/2022 03/16/2022 03/16/2022 11:54 PM CDT documented as of this encounter Care Teams Mold Repairer Relationship Specialty Start Date End Date Elsewhere, Pcp PCP - General Internal Medicine 03/16/22 documented as of this encounter
--- OUTSIDE RECORDS SUMMARY | 2022-08-14 22:17 | XMS_ITS | Encounter Summary ---
:1940 Author Organization [facility] Address [address] [place] [address] Care Team Providers Name Role Phone Igor Horn P.A.-C. Primary Care Provider [phone] Reason for Visit Reason Comments Med Refill Encounter Details Date Type Department Care Team Description 02/16/2022 Refill Department of Family Medicine, Igor Ross P.A.-C. Med Refill [facility], in [address] [place] [address] [place] [address] [place] [address] [phone] Social History Tobacco Use Types Packs/Day Years [...] have completed or the highest Roland, MEd, SEAM RUBBING MACHINE OPERATOR, MARIE) degree you have received? Sex Assigned at Date Recorded Female 06/26/2021 8:35 AM CDT documented as of this encounter Plan of Treatment Upcoming Encounters Date Type Specialty Care Team Description 08/22/2022 Clinical Communication Admitting/Central Scheduling 08/24/2022 Appointment Radiation Oncology Sue Barry M.D. [address] [place] [address] documented as of this encounter Visit Diagnoses Not on filedocumented in this encounter Care Teams Paper Cutter Operator Relationship Specialty Start Date End Date Igor Horn P.A.-C. PCP - General 06/14/18 03/15/22 [address] [place] [address] documented as of this encounter
--- OUTSIDE RECORDS SUMMARY | 2022-08-14 22:17 | XMS_ITS | Encounter Summary ---
:1940 Author Organization [facility] Address [address] [place] [address] Care Team Providers Name Role Phone Igor Horn P.A.-C. Primary Care Provider [phone] Reason for Referral Outpatient (Routine) - Closed Specialty Diagnoses / Procedures Referred By Contact Refer red To Contact Family Medicine Igor Horn P. A.-C. [facility] [address] [address] Referral ID Status Reason Start Date Expiration Date Visits Requ ested Visits Authorized [id number] Closed 02/15/2021 02/15/2022 1 1 Reason for Visit Reason Comments Med Management Discuss Pravastatin 1. Labs completed, No other concerns. Outpatient (Routine) - Closed Specialty Diagnoses / Procedures Referred By Contact Refer red To Contact Family Igor Winter P. A.-C. [facility] [address] [address] Referral ID Status Reason Start Date Expiration Date Visits Requ ested Visits Authorized [id number] Closed 02/24/2020 02/23/2021 1 1 Encounter Details Date Type Department Care Team Description 02/15/2021 Comprehensive Visit Department of Coreen Horn (BREANNE) (Primary Dx); Family Igor Little Screening C ancfox Colon; [facility], P.A.-C. Hypertension Essential Primary; in [place], [address] Hyperlipidemia; [place], [place] Hypothyroidism Primary; [address] [address] Rhinitis Allergic; [place], [place] [phone] General Medica l Examination Adult; [phone] (Work) Screening Mammogram Breast Cancer [phone] Social History Tobacco Use Types Packs/Day Years [...] have completed or the highest Roland, MEd, HISTOLOGY MANAGER, MARIE) degree you have received? Sex [...] bothers her more when she was in [place]. Fortunately when she was in [place] her arthritis was much improved. She says this may be getting a little worse now that she is back in [place]. She has been trying some tumeric. She [...] be doing better when she is in [place] #2 Screening Cancer Colon We did discuss colon cancer screening. She is of average risk. She has had normal colonoscopy in [facility]. We did discuss continuing to do screening [...] Radiation Oncology Sue Barry M.D. [address] [place] [address] Scheduled Orders Name Type Priority Associated Diagnoses [...] Type Priority Associated Diagnoses Order S [facility] Medicine Outpatient Referral Routine Expec michelle: [...] (02/27/2021 9:55 PM CDT) Analysis Performed At [facility] Time Signature Result Negative Not Applicable 03/03/2021 [...] 94.7%). These data are based on a craig hospitalive cross-sectional screening study of ,00 0 individuals at average risk for colorectal cancer who w ere screened with both Cologuard and colonoscopy. (June Dumas et al, N Engl J Med 2014;370(14):3007-8045) The normal value (reference range) for this assay is negative. COLOG UARD RE-SCREENING RECOMMENDATION: Periodic routine colorec riya cancer screening is an important part of preven tive healthcare for asymptomatic persons at average risk for colorectal cancer. Following a negative Cologuard result, enoch ramirez [place] Cancer Society and U.S. Multi-Society Task Forc e screening guidelines recommend a Cologuard re-scre ening interval of 3 years. References: [place] Cancer Socie ty (ACS). Colorectal cancer prevention and early d etection. [place], [place]: [place] [employer] Society; [updated 20 Jan 28]. https://www.cancer.org/cancer/colon-rect al-cancer/detection- diagnosis-staging/acs-recommendations.ht ml. Accessed June 06, 2018; Yung DK, Med CR, Ernesto DurantK , Colorectal Cancer Screening: Recommendations for Physician s and Patients from the U.S. Multi-Society Task Force on Col orectal Cancer Screening, Am J Gastroenterology 2017; 1 12:3849-4927. TEST TYPE: Composite algorithmic analysi s of [...] interval of every 3 years by the [place] Cancer Soc iety and U.S. Multi-Society Task [...] can be accessed at the following location: www.Fundrise/results. Additional de scription of the Cologuard test process, warnings and pre cautions can be found at www.cologuardtest.com. Rx only. Specimen Anatomical Collection Method Collection Time Receive d Time (Source) Location / / Volume Laterality Stool (Stool) 02/27/2021 9:55 PM 03/01/20 3:38 CDT PM CDT Igor Horn P.A.-C. LAB BODY FLUIDS AND STOOLS O RDERABLES Performing Organization Address City/State/ZIP Code Phon e Number [facility] [address] [place] [address] [address] [place] [address] Laboratories [address] [facility], [address] documented in this encounter Visit Diagnoses Diagnosis Asthma Intrinsic (HCC) - Primary Screening Cancer Colon Hypertension Essential Primary Hyperlipidemia Hypothyroidism Primary Rhinitis Allergic General Medical Examination Adult Screening Mammogram Breast Cancer documented in this encounter Care Teams Field Agronomist Relationship Specialty Start Date End Date Igor Horn P.A.-C. PCP - General 06/14/18 03/15/22 [address] [place] [address] documented as of this encounter
--- OUTSIDE RECORDS SUMMARY | 2022-08-14 22:18 | XMS_ITS | Encounter Summary ---
:1940 Author Organization [facility] Address [address] [place] [address] Care Team Providers Name Role Phone Igor Horn P.A.-C. Primary Care Provider [phone] Encounter Details Date Type Department Care Team Description 11/21/2020 Orders Only [facility] SEMN PCP [facility] Sa tanisha Arora M.D. [address] [place], [place] [phone] (Wo rk) Social History [...] Radiation Oncology Sue Barry M.D. [address] [place] [address] documented as of this encounter Visit Diagnoses Not on filedocumented in this encounter Care Teams Telegraph Service Rater Relationship Specialty Start Date End Date Igor Horn P.A.-C. PCP - General 06/14/18 03/15/22 [address] [place] [address] documented as of this encounter
--- OUTSIDE RECORDS SUMMARY | 2022-08-14 22:18 | XMS_ITS | Encounter Summary ---
:1940 Author Organization [facility] Address [address] [place] [address] Care Team Providers Name Role Phone Igor Horn P.A.-C. Primary Care Provider [phone] Reason for Visit Reason Comments Med Refill Encounter Details Date Type Department Care Team Description 02/06/2021 Refill Department of Family Medicine, Igor Ross P.A.-C. Med Refill [facility], in [address] [place] [phone] [place] [address] [place] [address] [phone] Social History Tobacco Use Types Packs/Day Years [...] Radiation Oncology Sue Barry M.D. [address] [place] [address] documented as of this encounter Visit Diagnoses Not on filedocumented in this encounter Care Teams Assessment Nurse Relationship Specialty Start Date End Date Igor Horn P.A.-C. PCP - General 06/14/18 03/15/22 [address] [place] [address] documented as of this encounter
--- OUTSIDE RECORDS SUMMARY | 2022-08-14 22:18 | XMS_ITS | Encounter Summary ---
:1940 Author Organization [facility] Address [address] [place] [address] Care Team Providers Name Role Phone Igor Horn P.A.-C. Primary Care Provider [phone] Reason for Visit Reason Comments COVMARIE Nurse Line Triage Encounter Details Date Type Department Care Team Description 04/19/2020 [facility]; Medicine, Misha [facility], in [facility] [phone] [place] [facility] [address] [place] [address] Social History Tobacco Use Types Packs/Day Years [...] and water aren't available, use a hand imaging specialist that contains at least 60% alcohol. [...] develop please contact your provider. Educational Resource: https://www.cdc.gov/coronavirus/2019-ncov/jlqbjgf-kwxouwy-sxay/index.html SELF CARE FOR ALL PATIENTS: Take breaks [...] The following references were used: [facility] novel coronavirus (COVID- 19) resources documented in this encounter Plan of Treatment Upcoming Encounters Date Type Specialty Care Team Description 08/22/2022 Clinical Communication Admitting/Central Scheduling 08/24/2022 Appointment Radiation Oncology Sue Barry M.D. [address] [place] [address] documented as of this encounter Visit Diagnoses Not on filedocumented in this encounter Care Teams Net Architect Relationship Specialty Start Date End Date Igor Horn P.A.-C. PCP - General 06/14/18 03/15/22 225 [place] [address] documented as of this encounter
--- OUTSIDE RECORDS SUMMARY | 2022-08-14 22:18 | XMS_ITS | Encounter Summary ---
:1940 Author Organization [facility] Address [address] [place] [address] Care Team Providers Name Role Phone Igor Horn P.A.-C. Primary Care Provider [phone] Encounter Details Date Type Department Care Team Description 12/02/2020 Orders Only Department of [facility] Igor Horn, Medicine, [facility], PNeda Jones in [facility] [address] [place] [address] [place] [address] [phone] Social History Tobacco Use Types Packs/Day Years [...] Radiation Oncology Sue Barry M.D. [address] [place] [address] documented as of this encounter Visit Diagnoses Not on filedocumented in this encounter Care Teams Refrigeration Plant Operator Relationship Specialty Start Date End Date Igor Horn P.A.-C. PCP - General 06/14/18 03/15/22 225 [place] [address] documented as of this encounter
--- OUTSIDE RECORDS SUMMARY | 2022-08-14 22:18 | XMS_ITS | Encounter Summary ---
:1940 Author Organization [facility] Address [address] [place] [address] Care Team Providers Name Role Phone Igor Horn P.A.-C. Primary Care Provider [phone] Reason for Referral Outpatient (Routine) - Closed Specialty Diagnoses / Procedures Referred By Contact Refer red To Contact Allergy and Immunology Valdemar Ma [place] M.D. [address] [place] [address] Referral ID Status Reason Start Date Expiration Date Visits Requ ested Visits Authorized [id number] Closed 01/10/2021 01/10/2022 1 1 Scheduling Instructions Patient prefers mid-morning appointments after February 09, 2021 Reason for Visit Reason Comments Symptom Assessment Encounter Details Date Type Department Care Team Description 01/09/2021 Clinical Communication Division of Kat Spain ptom Assessment Allergic Diseases D, R.N. in [place], [address] [place] [address] [place] [address] [place], [place] [phone] [address] (Work) [phone] Social History Tobacco Use Types Packs/Day Years [...] appointment with Dr. Ma upon return to [place]. She expressed that she will return February [...] be seen for asthma symptoms while in [place] for the winter. ASSESSMENT/PLAN The following home [...] Radiation Oncology Sue Barry M.D. [address] [place] [address] Scheduled Referrals Name Type Priority Associated Order Schedule Diagnoses Allergy and Outpatient Referral Routine Expected : Immunology office 03/10/2021 visit (clinic) (Approximate) , Expires: 01/10/2024 documented as of this encounter Visit Diagnoses Not on filedocumented in this encounter Care Teams Tour Consultant Relationship Specialty Start Date End Date Igor Horn P.A.-C. PCP - General 06/14/18 03/15/22 [address] [place] [address] documented as of this encounter
--- OUTSIDE RECORDS SUMMARY | 2022-08-14 22:18 | XMS_ITS | Encounter Summary ---
:1940 Author Organization [facility] Address [address] [place] [address] Care Team Providers Name Role Phone Igor Horn P.A.-C. Primary Care Provider [phone] Reason for Referral Outpatient (Routine) - Closed Specialty Diagnoses / Procedures Referred By Contact Refer red To Contact Family Medicine Igor Horn P. A.-C. [facility] [address] [address] Referral ID Status Reason Start Date Expiration Date Visits Requ ested Visits Authorized [id number] Closed 02/24/2020 02/23/2021 1 1 Reason for Visit Reason Comments Annual Exam Labs done 02-18-20 Outpatient (Routine) - Closed Specialty Diagnoses / Procedures Referred By Contact Refer red To Contact Family Igor Winter P. A.-C. [facility] [address] [address] Referral ID Status Reason Start Date Expiration Date Visits Requ ested Visits Authorized [id number] Closed 02/12/2019 02/12/2020 1 1 Encounter Details Date Type Department Care Team Description 02/24/2020 Comprehensive Visit Department of Jacey Horn Essential Primary (Primary Dx); Igor Ma, Asthma Intr insic (HCC); [facility], P.A.-C. Bundle Branch Block Left; in [place], [address] Rhinitis Allergic; [facility] [place], [place] Hypothyroidism Primary; [address] [address] Hyperlipidemia; [facility] [place] [phone] Encounter For Screening For Cardiovascular Disorders [phone] (Work) [phone] Social History Tobacco Use Types Packs/Day Years [...] or relatives? How often do you attend anglican or More than 4 times per year 03/16/2022 anabaptist services? Do you belong to any clubs or Yes 03/16/2022 organizations such as anglican groups, unions, fraternal or athletic groups, or [...] was 25 minutes of which 15 was brot-rp-ftig coordination of care and counseling Igor Horn P.A.-C. documented in this encounter Plan of Treatment Upcoming Encounters Date Type Specialty Care Team Description 08/22/2022 Clinical Communication Admitting/Central Scheduling 08/24/2022 Appointment Radiation Oncology Sue Barry M.D. [address] [place] [address] Scheduled Referrals Name Type Priority Associated Diagnoses Order [facility] Outpatient Referral Routine Expec michelle: [...] Organization Address City/State/ZIP Code Phon e Number [facility]- [address] [place] [facility] [place] [address] [facility] [place] [address] System in [place] [address] (ABNORMAL) Lipid Panel (02/15/2021 8:46 AM CDT) [...] Laterality Blood (Blood, 02/15/2021 8:46 AM 02/16/20 Venous) CDT 10:39 AM CDT Igor Horn P.A.-C. LAB BLOOD ADD-ON Performing Organization Address City/State/ZIP Code Phon e Number [facility]- [address] [place] [address] [facility] [place] [address] System in [place] [address] Comprehensive Metabolic Panel (02/15/2021 8:46 AM CDT) [...] CDT eGFR-Black/Afric 83 >=60 02/15/2021 OWAT an Stateless mL/min/BSA 11:23 AM CDT Comment: ----ADDITIONAL INFORMATION---- [...] Organization Address City/State/ZIP Code Phon e Number [facility] [address] [place] [address] [facility] [place] [address] System in [place] [address] documented in this encounter Visit Diagnoses Diagnosis Hypertension Essential Primary - Primary Asthma Intrinsic (HCC) Bundle Branch Block Left Rhinitis Allergic Hypothyroidism Primary Hyperlipidemia Encounter For Screening For Cardiovascul ar Disorders documented in this encounter Care Teams Textile Screen Maker Relationship Specialty Start Date End Date Igor Horn P.A.-C. PCP - General 06/14/18 03/15/22 [address] [place] [phone] documented as of this encounter
--- OUTSIDE RECORDS SUMMARY | 2022-08-14 22:18 | XMS_ITS | Encounter Summary ---
:1940 Author Organization [facility] Address [address] [place] [address] Care Team Providers Name Role Phone Igor Horn P.A.-C. Primary Care Provider [phone] Encounter Details Date Type Department Care Team Description 05/12/2020 Orders Only Department of Family Igor Horn Dy suria (Primary Dx) Medicine, [place] Shivam [facility], in [address] [facility] [address] [place], [place] [phone] [address] (Work) [phone] Social History Tobacco Use Types Packs/Day Years [...] Radiation Oncology Sue Barry M.D. [address] [place] [address] documented as of this encounter Results (ABNORMAL) Bacterial Culture, Aerobic + Susc, Urine (05/12/2020 11:31 AM CDT) [facility] Method Time Signature Urine Culture ESCHERICHIA COLI [...] Organization Address City/State/ZIP Code Phon e Number [facility]- [address] [place] [address] [place] [address] System [address] (ABNORMAL) Urinalysis with Microscopic if Indicated [...] 8.0 05/12/2020 11:41 AM CDT FB60 Specific [place] 1.020 1.001 - 1.035 05/12/2020 11:41 AM CDT FB60 Urobilinogen 0.2 0.2 - 1.0 mg/dL 05/12/2020 11:41 AM C DT FB60 Specimen Anatomical Collection Method Collection Time Receive d Time (Source) Location / / Volume Laterality Urine (Urine, 05/12/2020 11:31 05/12/2020 Clean Catch) AM CDT 11:37 AM CDT Igor Horn P.A.-C. LAB URINE ORDERABLES Performing Organization Address City/State/ZIP Code Phon e Number [address] [place] [address] [facility] [place] [address] System in [address] documented in this encounter Visit Diagnoses Diagnosis Dysuria - Primary documented in this encounter Care Teams Varnish Melter Helper Relationship Specialty Start Date End Date Igor Horn P.A.-C. PCP - General 06/14/18 03/15/22 [address] [place] [address] documented as of this encounter
--- OUTSIDE RECORDS SUMMARY | 2022-08-14 22:18 | XMS_ITS | Encounter Summary ---
:1940 Author Organization [facility] Address [address] [place] [address] Care Team Providers Name Role Phone Igor Horn P.A.-C. Primary Care Provider [phone] Encounter Details Date Type Department Care Team Description 04/19/2020 Orders Only Department of Family Anirudh Cronin Urinary Tract Medicine, Cl MelgarSAntwan, (Primar y Dx) Clinic, in Cristiana [place] 300 [facility] [address] [place] [phone] Social History Tobacco Use Types Packs/Day Years [...] Radiation Oncology Sue Barry M.D. [address] [place] [address] documented as of this encounter Visit Diagnoses Diagnosis Infection Urinary Tract - Primary documented in this encounter Care Teams Scrap Iron Cutter Relationship Specialty Start Date End Date Igor Horn P.A.-C. PCP - General 06/14/18 03/15/22 [address] [place] [address] documented as of this encounter
--- OUTSIDE RECORDS SUMMARY | 2022-08-14 22:18 | XMS_ITS | Encounter Summary ---
:1940 Author Organization [facility] Address [address] [place] [address] Care Team Providers Name Role Phone Igor Horn P.A.-C. Primary Care Provider [phone] Encounter Details Date Type Department Care Team Description 01/10/2021 Clinical Communication Division of Allergic Volcheck Valdemar Diseases in Geovani Ryder M.D. [address] [place] [address] [phone] Social History Tobacco Use Types Packs/Day Years [...] Radiation Oncology Sue Barry M.D. [address] [place] [address] documented as of this encounter Visit Diagnoses Not on filedocumented in this encounter Care Teams Director Merit System Relationship Specialty Start Date End Date Igor Horn P.A.-C. PCP - General 06/14/18 03/15/22 225 [place] [address] documented as of this encounter
--- OUTSIDE RECORDS SUMMARY | 2022-08-14 22:18 | XMS_ITS | Encounter Summary ---
:1940 Author Organization [facility] Address [address] [place] [address] Care Team Providers Name Role Phone Igor Horn P.A.-C. 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 Keratosis Seborrheic Inflamed 200 [facility] 200 [place] [address] [phone] Social History Tobacco Use Types Packs/Day Years [...] Radiation Oncology Sue Barry M.D. [address] [place] [address] documented as of this encounter Visit Diagnoses Diagnosis Keratosis Actinic - Primary Malignant Neoplasm Of Forearm Squamous C ell Carcinoma Right Keratosis Seborrheic Inflamed documented in this encounter Care Teams Claim Review Medical Director Relationship Specialty Start Date End Date Igor Horn P.A.-C. PCP - General 06/14/18 03/15/22 [address] [place] [address] documented as of this encounter
--- OUTSIDE RECORDS SUMMARY | 2022-08-14 22:18 | XMS_ITS | Encounter Summary ---
:1940 Author Organization [facility] Address [address] [place] [address] Care Team Providers Name Role Phone Igor Horn P.A.-C. Primary Care Provider [phone] Reason for Visit Reason Comments Med Refill Encounter Details Date Type Department Care Team Description 12/28/2020 Refill Department of Family Medicine, Igor Ross P.A.-C. Med Refill [facility], in [address] [place] [address] [place] [address] [place] [address] [phone] Social History Tobacco Use Types Packs/Day Years [...] Radiation Oncology Sue Barry M.D. [address] [place] [address] documented as of this encounter Visit Diagnoses Not on filedocumented in this encounter Care Teams Stull Hewer Relationship Specialty Start Date End Date Igor Horn P.A.-C. PCP - General 06/14/18 03/15/22 [address] [place] [address] documented as of this encounter
--- OUTSIDE RECORDS SUMMARY | 2022-08-14 22:18 | XMS_ITS | Encounter Summary ---
:1940 Author Organization [facility] Address [address] [place] [address] Care Team Providers Name Role Phone Igor Horn P.A.-C. Primary Care Provider [phone] Encounter Details Date Type Department Care Team Description 04/19/2020 Clinical Communication Department of Igor Byrd, Medicine, [place] L[facility], in [address] [address] [place], [place] [phone] [address] (Work) [phone] Social History Tobacco Use Types Packs/Day Years [...] of the More than 4 times [facility] year 03/16/2022 clubs or organizations [...] following information was provided: Anirudh Cronin M.B.B.S., Cristiana You; [facility] Nurse 19 minutes ago (10:11 AM) Urinalysis [...] Radiation Oncology Sue Barry M.D. [address] [place] [address] documented as of this encounter Results (ABNORMAL) Urinalysis [...] 8.0 04/19/2020 2:09 PM CDT FB60 Specific [place] 1.020 1.001 - 1.035 04/19/2020 2:09 PM CDT FB60 Urobilinogen 0.2 0.2 - 1.0 mg/dL 04/19/2020 2:09 PM CD T FB60 Specimen Anatomical Collection Method Collection Time Receive d Time (Source) Location / / Volume Laterality Urine (Urine, 04/19/2020 1:52 PM 04/19/20 20 2:01 Clean Catch) CDT PM CDT Anirudh Nevarez M.D. LAB URINE ORDERABLES Performing Organization Address City/State/ZIP Code Phon e Number [place] [address] [place] [address] [facility] [place] [address] System in [address] documented in this encounter Visit Diagnoses Diagnosis Dysuria - Primary documented in this encounter Care Teams Vehicle Operator Relationship Specialty Start Date End Date Igor Horn P.A.-C. PCP - General 06/14/18 03/15/22 [address] [place] [address] documented as of this encounter
--- OUTSIDE RECORDS SUMMARY | 2022-08-14 22:18 | XMS_ITS | Encounter Summary ---
:1940 Author Organization [facility] Address [address] [place] [address] Care Team Providers Name Role Phone Igor Horn P.A.-C. Primary Care Provider [phone] Encounter Details Date Type Department Care Team Description 05/10/2020 Nurse Triage Department of [facility] Rodriguez [facility], [facility], [address] [place] [address] [place] [address] [place] [address] Social History Tobacco Use Types Packs/Day Years [...] Radiation Oncology Sue Barry M.D. [address] [place] [address] documented as of this encounter Visit Diagnoses Not on filedocumented in this encounter Care Teams Sales Applications Engineer Relationship Specialty Start Date End Date Igor Horn P.A.-C. PCP - General 06/14/18 03/15/22 225 [place] [address] documented as of this encounter
--- OUTSIDE RECORDS SUMMARY | 2022-08-14 22:18 | XMS_ITS | Encounter Summary ---
:1940 Author Organization [facility] Address [address] [place] [address] Care Team Providers Name Role Phone Igor Horn P.A.-C. Primary Care Provider [phone] Reason for Visit Reason Comments COVID Inquiry Encounter Details Date Type Department Care Team Description 03/22/2020 Clinical Communication Department of Mervat GuyID Inquiry Dermatology in A, CHIEF CLERK, C.N.P., [place], [place] D.N.P. [address] [place] [address] [address] [place] [address] [phone] Social History Tobacco Use Types Packs/Day Years [...] meetings of the More than 4 times [facility] year 03/16/2022 clubs or organizations you [...] - 03/22/2020 12:52 PM CDT (Note for [facility] locations only: If the patient states they [...] Radiation Oncology Sue Barry M.D. [address] [place] [address] documented as of this encounter Visit Diagnoses Not on filedocumented in this encounter Care Teams Gun Perforator Relationship Specialty Start Date End Date Igor Horn P.A.-C. PCP - General 06/14/18 03/15/22 225 [place] [address] documented as of this encounter
--- OUTSIDE RECORDS SUMMARY | 2022-08-14 22:18 | XMS_ITS | Encounter Summary ---
:1940 Author Organization [facility] Address [address] [place] [address] Care Team Providers Name Role Phone Igor Horn P.A.-C. Primary Care Provider [phone] Encounter Details Date Type Department Care Team Description 05/12/2020 Hospital Encounter Department of Laboratory Igor Horn, Dysuria Medicine in [place] 225 [facility] [address] [place] [address] [phone] (Wo rk) Social History Tobacco Use Types [...] patient: Not applicable Call back number: [phone] Car Pick Up Driver: Not applicable Information provided: Patient notified of results and recommendations as listed above by TORIE De Oliveira. Patient was instructed to milk pickup driver and start the Bactrim. personal property appraiser/patient received and understood education/information provided: Yes personal property appraiser/patient agreed to the Plan of Care: Yes documented in this encounter Plan of Treatment Upcoming Encounters Date Type Specialty Care Team Description 08/22/2022 Clinical Communication Admitting/Central Scheduling 08/24/2022 Appointment Radiation Oncology Sue Barry M.D. [address] [place] [phone] documented as of this encounter Procedures Procedure Name Priority Date/Time Associated Comments Diagnosis URINALYSIS WITH Routine 05/12/2020 11:31 Dysuria Results for this MICROSCOPIC IF AM CDT procedure are in INDICATED, U the results section. LA URINALYSIS AUTO WO Routine 05/12/2020 11:31 Re [...] Address City/State/ZIP Code Phon e Number [facility]- [address] [place] [address] [facility] [place] [address] System in [place] [address] (ABNORMAL) Bacterial Culture, Aerobic + Susc, [...] Address City/State/ZIP Code Phon e Number [facility]- [address] [place] [id number] [place] [address] [place] [address] System in [address] (ABNORMAL) Urinalysis with Microscopic if Indicated [...] 8.0 05/12/2020 11:41 AM CDT FB60 Specific [place] 1.020 1.001 - 1.035 05/12/2020 11:41 AM CDT FB60 Urobilinogen 0.2 0.2 - 1.0 mg/dL 05/12/2020 11:41 AM C DT FB60 Specimen Anatomical Collection Method Collection Time Receive d Time (Source) Location / / Volume Laterality Urine (Urine, 05/12/2020 11:31 05/12/2020 Clean Catch) AM CDT 11:37 AM CDT Igor Horn P.A.-C. LAB URINE ORDERABLES Performing Organization Address City/State/ZIP Code Phon e Number [facility]- [facility] [place] [address] [facility] [place] [address] System in [place] [address] documented in this encounter Visit Diagnoses Diagnosis Dysuria documented in this encounter Care Teams Solar Installer Technician Relationship Specialty Start Date End Date Igor Horn P.A.-C. PCP - General 06/14/18 03/15/22 [address] [place] [phone] documented as of this encounter
--- OUTSIDE RECORDS SUMMARY | 2022-08-14 22:18 | XMS_ITS | Encounter Summary ---
:1940 Author Organization [facility] Address [address] [place] [address] Care Team Providers Name Role Phone Igor Horn P.A.-C. Primary Care Provider [phone] Encounter Details Date Type Department Care Team Description 05/16/2020 Orders Only Department of Family Tammy Garvin, APR N, Medicine, [facility], C.N. P. in [facility] [address] [place] [address] [place] [address] [phone] Social History Tobacco Use Types Packs/Day Years [...] meetings of the More than 4 times [facility] year 03/16/2022 clubs or organizations [...] Radiation Oncology Sue Barry M.D. [address] [place] [address] documented as of this encounter Visit Diagnoses Not on filedocumented in this encounter Care Teams Pocket Operator Relationship Specialty Start Date End Date Igor Horn P.A.-C. PCP - General 06/14/18 03/15/22 225 [place] [address] documented as of this encounter
--- OUTSIDE RECORDS SUMMARY | 2022-08-14 22:18 | XMS_ITS | Encounter Summary ---
:1940 Author Organization [facility] Address [address] [place] [address] Care Team Providers Name Role Phone Igor Horn P.A.-C. Primary Care Provider [phone] Encounter Details Date Type Department Care Team Description 02/15/2021 Hospital Encounter Department of Melissa Horn Essential Primary; Laboratory Medicine Reyna Costa Hypothyroidism Primary; in [place], [address] [place] [address] Hyperlipidemia; [place], [place] Encounter For Screening For Cardiovascular Disorders [address] [facility] [address] [place], [place] [phone] [address] (Work) [phone] Social History Tobacco Use Types Packs/Day Years [...] or the highest Roland, MEd, SILK SCREEN FRAME ASSEMBLER, MARIE) degree you have received? Sex Assigned [...] Radiation Oncology Sue Barry M.D. [address] [place] [address] documented as of this encounter Procedures Procedure [...] Code Phon e Number [facility]- [address] [place] [address] [place] [address] System in [place] [address] (ABNORMAL) Lipid Panel (02/15/2021 8:46 AM CDT) [...] e Number [facility]- [address] [place] [address] [facility] [place] [facility] [place] [address] System in [place] [address] [facility] Comprehensive Metabolic Panel (02/15/2021 8:46 AM CDT) [...] CDT eGFR-Black/Afric 83 >=60 02/15/2021 OWAT an Burmese mL/min/BSA 11:23 AM CDT Comment: ----ADDITIONAL INFORMATION---- [...] Code Phon e Number [facility]- [address] [place] [address] [facility] [place] [address] System in [place] [address] [facility] documented in this encounter Visit Diagnoses Diagnosis Hypertension Essential Primary Hypothyroidism Primary Hyperlipidemia Encounter For Screening For Cardiovascul ar Disorders documented in this encounter Care Teams Crown Assembly Machine Operator Relationship Specialty Start Date End Date Igor Horn P.A.-C. PCP - General 06/14/18 03/15/22 [address] [place] [address] documented as of this encounter
--- OUTSIDE RECORDS SUMMARY | 2022-08-14 22:18 | XMS_ITS | Encounter Summary ---
:1940 Author Organization [facility] Address [address] [place] [address] Care Team Providers Name Role Phone gIor Horn P.A.-C. Primary Care Provider [phone] Encounter Details Date Type Department Care Team Description 03/14/2020 Clinical Communication Department of [facility] Igor Horn, Medicine, Bertha [facility], in [address] [address] [place], [place] [phone] [address] (Work) [phone] Social History Tobacco Use Types Packs/Day Years [...] meetings of the More than 4 times [facility] year 03/16/2022 clubs or [...] no Route reply to: Scheduling Contact Number: [phone] documented in this encounter Plan of Treatment Upcoming Encounters Date Type Specialty Care Team Description 08/22/2022 Clinical Communication Admitting/Central Scheduling 08/24/2022 Appointment Radiation Oncology Sue Barry M.D. [address] [place] [address] documented as of this encounter Visit Diagnoses Not on filedocumented in this encounter Care Teams Cook Specialty Relationship Specialty Start Date End Date Igor Horn P.A.-C. PCP - General 06/14/18 03/15/22 [address] [place] [address] documented as of this encounter
--- OUTSIDE RECORDS SUMMARY | 2022-08-14 22:18 | XMS_ITS | Encounter Summary ---
:1940 Author Organization [facility] Address [address] [place] [address] Care Team Providers Name Role Phone Igor Horn P.A.-C. Primary Care Provider [phone] Encounter Details Date Type Department Care Team Description 12/01/2020 Orders Only Department of [facility] Igor Horn, Medicine, [facility], PNeda Jones in [facility] [address] [place] [address] [place] [address] [phone] Social History Tobacco Use Types Packs/Day Years [...] Radiation Oncology Sue Barry M.D. [address] [place] [address] documented as of this encounter Visit Diagnoses Not on filedocumented in this encounter Care Teams Fine Craft Artist Relationship Specialty Start Date End Date Igor Horn P.A.-C. PCP - General 06/14/18 03/15/22 [address] [place] [address] documented as of this encounter
--- OUTSIDE RECORDS SUMMARY | 2022-08-14 22:18 | XMS_ITS | Encounter Summary ---
:1940 Author Organization [facility] Address [address] [place] [address] Care Team Providers Name Role Phone Igor Horn P.A.-C. Primary Care Provider [phone] Reason for Visit Reason Comments Medication Problem Encounter Details Date Type Department Care Team Description 04/19/2020 Clinical Communication Department of Ranulfo Cronin Family Medicine, [facility] in [address] [address] [place], [place] [phone] [address] (Work) [phone] Social History Tobacco Use Types Packs/Day Years [...] to get it before the pharmacy closes. Artificial Candy Maker called and spoke with pharmacist who stated there was a flag on the antibiotic and patient's lisinopril for concern of increasing potassium levels. Artificial Candy Maker spoke with patient's PCP regarding the above concern who stated that since the patient is only taking the antibiotic for 3 days, this should not be of concern. Artificial Candy Maker notified both pharmacist and patient of PCP's response. PLAN Disposition/Recommendation: Patient to order picker Bactrim that was previously prescribed Information/Education: patient/caller able to teach back Caller agreeable to plan of care: yes The following references were used: provider Igor Horn Telephone Encounter - Karla Martinez - 04/19/2020 3:17 PM CDT Reason for Communication: Lashonda from [facility] calling, rx for Bactrim has drug [...] Radiation Oncology Sue Barry M.D. [address] [place] [address] documented as of this encounter Visit Diagnoses Not on filedocumented in this encounter Care Teams Beater Dumper Relationship Specialty Start Date End Date Igor Horn P.A.-C. PCP - General 06/14/18 03/15/22 [address] [place] [address] documented as of this encounter
--- OUTSIDE RECORDS SUMMARY | 2022-08-14 22:18 | XMS_ITS | Encounter Summary ---
:1940 Author Organization [facility] Address [address] [place] [address] Care Team Providers Name Role Phone Igor Horn P.A.-C. Primary Care Provider [phone] Reason for Visit Reason Comments Communication symptoms Encounter Details Date Type Department Care Team Description 05/10/2020 Clinical Department of Steve Horn Family MedicineIgor, (symptoms) [facility] [address] [facility] [address] [place], [place] [phone] [address] (Work) [phone] Social History Tobacco Use Types Packs/Day Years [...] you would like a UC. Uses [facility] [place] Current Can Nursing/Provider leave a detailed message: Did the patient refuse triage through Nurse line? (for symptom based concerns): Action Needed: please clal Name of Medication (if relevant): documented in this encounter Plan of Treatment Upcoming Encounters Date Type Specialty Care Team Description 08/22/2022 Clinical Communication Admitting/Central Scheduling 08/24/2022 Appointment Radiation Oncology Sue Barry M.D. [address] [place] [address] documented as of this encounter Visit Diagnoses Not on filedocumented in this encounter Care Teams Unindentured Apprentice Relationship Specialty Start Date End Date Igor Horn P.A.-C. PCP - General 06/14/18 03/15/22 [address] [place] [address] documented as of this encounter
--- OUTSIDE RECORDS SUMMARY | 2022-08-14 22:18 | XMS_ITS | Encounter Summary ---
:1940 Author Organization [facility] Address [address] [place] [address] Care Team Providers Name Role Phone Igor Horn P.A.-C. Primary Care Provider [phone] Reason for Visit Reason Comments MELANIA Nurse Line Encounter Details Date Type Department Care Team Description 07/24/2020 Clinical Communication Division of MELANIA [place] Nurse Telma [facility] Internal Cecilia Cordova Medicine, Kishore BYNUM, C.N.P., [facility], in D.N.P. [place], [address] [place], [place] [address] [place] [address] [place], [place] [phone] [phone] (Work) [phone] Social History Tobacco Use Types Packs/Day Years [...] More than 4 times per year 03/16/2022 restorationism services? Do you belong to any clubs [...] and water aren't available, use a hand signal processing engineer that contains at least 60% alcohol. Avoid [...] since you were tested. Educational Resource: https://www.cdc.gov/coronavirus/2019-ncov/ wgyectp-bnmsvno-qoij/index.html Education: Patient/caregiver able to teach back Patient agreeable to plan of care: Yes The following references were used: [facility] novel coronavirus (COVID- 19) resources CDC web site https://www.cdc.gov/coronavirus/2019-ncov/summary.html Nursing judgement documented in this encounter Plan of Treatment Upcoming Encounters Date Type Specialty Care Team Description 08/22/2022 Clinical Communication Admitting/Central Scheduling 08/24/2022 Appointment Radiation Oncology Sue Barry M.D. [address] [place] [address] documented as of this encounter Visit Diagnoses Not on filedocumented in this encounter Care Teams Comic Writer Relationship Specialty Start Date End Date Igor Horn P.A.-C. PCP - General 06/14/18 03/15/22 [address] [place] [address] documented as of this encounter
--- OUTSIDE RECORDS SUMMARY | 2022-08-14 22:18 | XMS_ITS | Encounter Summary ---
:1940 Author Organization [facility] Address [address] [place] [address] Care Team Providers Name Role Phone Igor Horn P.A.-C. Primary Care Provider [phone] Encounter Details Date Type Department Care Team Description 04/19/2020 Hospital Encounter Department of Laboratory Anirudh Cronin I., Dysuria Medicine in Roque Stone M.D. [place] 300 [facility] 300 [place] [address] [phone] (Wo rk) Social History Tobacco Use Types [...] Take 1 tablet by 90 tablet 3 /0 03/202002/06/2021 LEVOTHROID) 75 mcg tablet mouth once [...] Notes Result Encounter Note - Fide Durant LAntwanP.N. - 04/19/2020 3:01 PM CDT Name of person contacted: Patient Relationship to patient: Not applicable Call back number: [phone] Special Procedures Nurse: Not applicable Information provided: Patient notified of results and Dr. Cronin's recommendations. Patient will hot die picker and begin Bactrim. yard person/patient received and understood education/information provided: Yes yard person/patient agreed to the Plan of Care: Yes Result Encounter Note - Anirudh Cronin M.B.B.S., MAde - 04/19/2020 2:50 PM CDT Urinalysis indicates UTI. Will treat this with 3 days of Bactrim. Urine culture is pending as well. I have sent a prescription for Bactrim to her pharmacy. documented in this encounter Plan of Treatment Upcoming Encounters Date Type Specialty Care Team Description 08/22/2022 Clinical Communication Admitting/Central Scheduling 08/24/2022 Appointment Radiation Oncology Sue Barry M.D. [address] [place] [address] documented as of this encounter Procedures Procedure Name Priority Date/Time Associated Comments Diagnosis URINALYSIS WITH Routine 04/19/2020 1:52 PM Dysuria Result s for this MICROSCOPIC IF CDT procedure are in INDICATED, U the results section. SD URINALYSIS AUTO WO Routine 04/19/2020 1:52 PM [...] Code Phon e Number [facility]- [address] [place] [address] [facility] [address] [place] [address] System in [place] [address] (ABNORMAL) Urinalysis with Microscopic [...] 8.0 04/19/2020 2:09 PM CDT FB60 Specific [place] 1.020 1.001 - 1.035 04/19/2020 2:09 PM CDT FB60 Urobilinogen 0.2 0.2 - 1.0 mg/dL 04/19/2020 2:09 PM CD T FB60 Specimen Anatomical Collection Method Collection Time Receive d Time (Source) Location / / Volume Laterality Urine (Urine, 04/19/2020 1:52 PM 04/19/20 20 2:01 Clean Catch) CDT PM CDT Anirudh Nevarez M.D. LAB URINE ORDERABLES Performing Organization Address City/State/ZIP Code Phon e Number [place] [address] [place] [address] [facility] [address] [place] [address] System in [place] [address] documented in this encounter Visit Diagnoses Diagnosis Dysuria documented in this encounter Care Teams Electric Meter Repairer Relationship Specialty Start Date End Date Igor Horn P.A.-C. PCP - General 06/14/18 03/15/22 [address] [place] [address] documented as of this encounter
--- OUTSIDE RECORDS SUMMARY | 2022-08-14 22:18 | XMS_ITS | Encounter Summary ---
:1940 Author Organization [facility] Address [address] [place] [address] Care Team Providers Name Role Phone Igor Horn P.A.-C. Primary Care Provider [phone] Reason for Visit Reason Comments Follow-up question re prednisone Encounter Details Date Type Department Care Team Description 01/16/2021 Clinical Communication Division of Kang Ma-up question Allergic Diseases Valdemar Olivo M.D. re prednisone in [place], [address] [place] [address] [place] [address] [place], [place] [phone] (Work) [phone] Social History Tobacco Use Types Packs/Day Years [...] meetings of the More than 4 times [facility] year 03/16/2022 clubs or organizations you belong [...] Radiation Oncology Sue Barry M.D. [address] [place] [address] documented as of this encounter Visit Diagnoses Not on filedocumented in this encounter Care Teams Business English Instructor Relationship Specialty Start Date End Date Igor Horn P.A.-C. PCP - General 06/14/18 03/15/22 225 [place] [address] documented as of this encounter
--- OUTSIDE RECORDS SUMMARY | 2022-08-14 22:18 | XMS_ITS | Encounter Summary ---
:1940 Author Organization [facility] Address [address] [place] [address] Care Team Providers Name Role Phone Igor Horn P.A.-C. Primary Care Provider [phone] Encounter Details Date Type Department Care Team Description 05/12/2020 Orders Only Department of Family Igor Horn, In [facility] Urinary Medicine, [place] [facility], in [place], [address] [place] [address] 300 [facility] [address] [place], [place] [phone] [address] (Work) [phone] Social History Tobacco Use Types Packs/Day Years [...] Radiation Oncology Sue Barry M.D. [address] [place] [address] documented as of this encounter Visit Diagnoses Diagnosis Infection Urinary Tract documented in this encounter Care Teams Senior Business Development Analyst Relationship Specialty Start Date End Date Igor Horn P.A.-C. PCP - General 06/14/18 03/15/22 [address] [place] [address] documented as of this encounter
--- OUTSIDE RECORDS SUMMARY | 2022-08-14 22:18 | XMS_ITS | Encounter Summary ---
:1940 Author Organization [facility] Address [address] [place] [address] Care Team Providers Name Role Phone Iogr Horn P.A.-C. Primary Care Provider [phone] Reason for Referral Outpatient (Routine) - Closed Specialty Diagnoses / Procedures Referred By Contact Refer red To Contact Diagnoses Screening Mammogram Breast Cancer Igor Horn P.A.-C. [facility] Procedures BI Breast Screening Bilateral with Tomosynthesis [address] [place] [address] Referral ID Status Reason Start Date Expiration Date Visits Requ ested Visits Authorized [id number] Closed 03/14/2020 03/14/2021 1 1 Reason for Visit Outpatient (Routine) - Closed Specialty Diagnoses / Procedures Referred By Contact Refer red To Contact Diagnoses Screening Mammogram Breast Cancer Igor Horn P.A.-C. [facility] Procedures BI Breast Screening Bilateral with Tomosynthesis [address] [place] [address] Referral ID Status Reason Start Date Expiration Date Visits Requ ested Visits Authorized [id number] Closed 03/14/2020 03/14/2021 1 1 Encounter Details Date Type Department Care Team Description 04/11/2020 Hospital Encounter Department of Merlyn Horn Mammogram Radiology in Shivam Costa Breast Cancer [place], [place] [address] [place], [place] JOHN FARRAR [address] Social History Tobacco Use Types Packs/Day [...] Oncology Sue Barry M.D. [address] [place] [address] documented as of this encounter Procedures Procedure [...] Imaging RST LOS, Breast Imaging ARZ LOS, [address] st Bilateral Mammography Imaging FLA LOS Specimen [...] TOMOSYNTHESIS Current study was evaluated with a Vidableu Myndnet Aided Detection (CAD) system. INDICATION: Screening mammogram. [...] Cancer documented in this encounter Care Teams Processing Supervisor Relationship Specialty Start Date End Date Igor Horn P.A.-C. PCP - General 06/14/18 03/15/[address] [place] [address] documented as of this encounter
--- OUTSIDE RECORDS SUMMARY | 2022-08-14 22:19 | XMS_ITS | Encounter Summary ---
:1940 Author Organization [facility] Address [address] [place] [address] Care Team Providers Name Role Phone Igor Horn P.A.-C. Primary Care Provider [phone] Encounter Details Date Type Department Care Team Description 04/07/2019 Hospital Encounter Department of Merlyn Horn Mammogram Radiology in Shivam Costa Breast Cancer [place], [place] 225 [facility] [address] [place] [address] [phone] Social History Tobacco Use Types Packs/Day Years [...] of the More than 4 times [facility] year 03/16/2022 clubs or organizations [...] have completed or the highest Roland, MEd, EQUIPMENT CLEANER, MARIE) degree you have received? Sex Assigned [...] Radiation Oncology Sue Barry M.D. [address] [place] [address] documented as of this encounter Procedures Procedure [...] LOS, [address]lee st Bilateral Mammography Imaging FLA [facility] Specimen (Source) Anatomical Collection Method Collection Time [...] TOMOSYNTHESIS Current study was evaluated with a Genii Technologiesu ter Aided Detection (CAD) system. INDICATION: Screening [...] Cancer documented in this encounter Care Teams Vp Communications Relationship Specialty Start Date End Date Igor Horn P.A.-C. PCP - General 06/14/18 03/15/22 [address] [place] [address] documented as of this encounter
--- OUTSIDE RECORDS SUMMARY | 2022-08-14 22:19 | XMS_ITS | Encounter Summary ---
:1940 Author Organization [facility] Address [address] [place] [address] Care Team Providers Name Role Phone Igor Horn P.A.-C. Primary Care Provider [phone] Encounter Details Date Type Department Care Team Description 04/30/2019 Orders Only Department of [facility] Igor Horn, Medicine, [facility], PNeda Jones in [facility] [address] [place] [address] [place] [address] [phone] Social History Tobacco Use Types Packs/Day Years [...] or relatives? How often do you attend islam or More than 4 times per year 03/16/2022 adventism services? Do you belong to any clubs or Yes 03/16/2022 organizations such as islam groups, unions, fraternal or athletic groups, or school groups? How often do you attend meetings of the More than 4 times [facility] year 03/16/2022 clubs or organizations [...] have completed or the highest Roland, MEd, FORECLOSURE FIELD INSPECTOR, MARIE) degree you have received? Sex Assigned at Date Recorded Female 06/26/2021 8:35 AM CDT documented as of this encounter Plan of Treatment Upcoming Encounters Date Type Specialty Care Team Description 08/22/2022 Clinical Communication Admitting/Central Scheduling 08/24/2022 Appointment Radiation Oncology Sue Barry M.D. [address] [place] [address] documented as of this encounter Visit Diagnoses Not on filedocumented in this encounter Care Teams Director Of Technology Relationship Specialty Start Date End Date Igor Horn P.A.-C. PCP - General 06/14/18 03/15/22 [address] [place] [address] documented as of this encounter
--- OUTSIDE RECORDS SUMMARY | 2022-08-14 22:19 | XMS_ITS | Encounter Summary ---
:1940 Author Organization [facility] Address [address] [place] [address] Care Team Providers Name Role Phone Igor Horn P.A.-C. Primary Care Provider [phone] Reason for Visit Reason Comments COVID Nurse Line Encounter Details Date Type Department Care Team Description 02/15/2020 Clinical Communication Department of LUIS Casas Nurse Line Dermatology in Provider [place], [place] [address] [place] [address] Social History Tobacco Use Types Packs/Day Years [...] or relatives? How often do you attend baptist or More than 4 times per year 03/16/2022 quaker services? Do you belong to any clubs or Yes 03/16/2022 organizations such as baptist groups, unions, fraternal or athletic groups, or [...] or the highest Roland, MEd, HIGH SCHOOL TEACHER, MARIE) degree you have received? Sex [...] Appointment Radiation Oncology Sue Barry M.D. [address] [place] [address] documented as of this encounter Visit Diagnoses Not on filedocumented in this encounter Care Teams Clean Up Worker Relationship Specialty Start Date End Date Igor Horn P.A.-C. PCP - General 06/14/18 03/15/22 [address] [place] [address] documented as of this encounter
--- OUTSIDE RECORDS SUMMARY | 2022-08-14 22:19 | XMS_ITS | Encounter Summary ---
:1940 Author Organization [facility] Address [address] [place] [address] Care Team Providers Name Role Phone Igor Horn P.A.-C. Primary Care Provider [phone] Encounter Details Date Type Department Care Team Description 10/16/2019 Orders Only Department of Family Demian Page R.N. Medicine, [facility], [address] [place] [address] [place] [address] [place] [address] Social History Tobacco Use [...] have completed or the highest Roland, MEd, SOUND ENGINEER, MARIE) degree you have received? Sex Assigned at Date Recorded Female 06/26/2021 8:35 AM CDT documented as of this encounter Plan of Treatment Upcoming Encounters Date Type Specialty Care Team Description 08/22/2022 Clinical Communication Admitting/Central Scheduling 08/24/2022 Appointment Radiation Oncology Sue Barry M.D. [address] [place] [address] documented as of this encounter Visit Diagnoses Not on filedocumented in this encounter Care Teams Organic Section Technical Lead Relationship Specialty Start Date End Date Igor Horn P.A.-C. PCP - General 06/14/18 03/15/22 [address] [place] [address] documented as of this encounter
--- OUTSIDE RECORDS SUMMARY | 2022-08-14 22:19 | XMS_ITS | Encounter Summary ---
:1940 Author Organization [facility] Address [address] [place] [address] Care Team Providers Name Role Phone Igor Horn P.A.-C. Primary Care Provider [phone] Reason for Visit Reason Comments Med Refill Encounter Details Date Type Department Care Team Description 12/28/2019 Refill Department of Family Medicine, Igor Ross P.A.-C. Med Refill [facility], in [address] [place] [address] [place] [address] [place] [address] [phone] Social History Tobacco Use Types Packs/Day Years [...] have completed or the highest Roland, MEd, MILL MANAGER, MARIE) degree you have received? Sex [...] Radiation Oncology Sue Barry M.D. [address] [place] [address] documented as of this encounter Visit Diagnoses Not on filedocumented in this encounter Care Teams Punch Press Operator Relationship Specialty Start Date End Date Igor Horn P.A.-C. PCP - General 06/14/18 03/15/22 [address] [place] [address] documented as of this encounter
--- OUTSIDE RECORDS SUMMARY | 2022-08-14 22:19 | XMS_ITS | Encounter Summary ---
:1940 Author Organization [facility] Address [address] [place] [address] Care Team Providers Name Role Phone Igor Horn P.A.-C. Primary Care Provider [phone] Encounter Details Date Type Department Care Team Description 02/09/2019 Hospital Encounter Department of Justina Hyperlip idemia; Laboratory Medicine Reyna Costa Hypothyroidism Primary; in [address] Pain Knee Right; [place], [place] Asthma Intrinsic (HCC); [address] [facility] [address] Screening Examination Diabetes Mellitus; [place], [place] [phone] Hypertension Es sential Primary [address] (Work) [phone] Social History Tobacco Use Types Packs/Day Years [...] Radiation Oncology Sue Barry M.D. [address] [place] [address] documented as of this encounter Procedures Procedure [...] 2.5 0.3 - 4.2 02/09/2019 [facility] mIU/L 1:57 PM CDT [facility] Comment: Biotin has been identified by the lopez ruiz as a potential interfering substance. ??Higher concentr ations of biotin may be found in multivitamins, hair/nail supple ments, and workout supplements. ??If the result does not [facility] clinical observations, repeat testing after patient refrains fr om the use of supplements for at least 12 hours. Specimen Anatomical Collection Method Collection Time Receive d Time (Source) Location / / Volume Laterality Blood (Blood, 02/09/2019 8:32 AM 02/10/20 19 1:12 Venous) CDT PM CDT Igor Horn P.A.-C. LAB BLOOD ADD-ON Performing Organization Address City/State/ZIP Code Phon e Number [facility] [address] [place] [address] LAB (ABNORMAL) Lipid Panel (02/09/2019 8:32 AM CDT) athologist Signature Cholesterol, 166 mg/dL 02/09/2019 [facility] Total 1:57 PM CDT [facility] Comment: ----REFERENCE VALUE---- Desirable: < 200 Borderline high: 200 - 239 High: > or = 240 Triglycerides 147 mg/dL 02/09/2019 1:[address] [facility] Comment: ----REFERENCE VALUE---- Normal: <150 Borderline high: 150-199 High: 200-499 Very high: > or =500 Cholesterol, HDL, S 45 (L) >=50 mg/dL 02/09/2019 1:[address] [facility] Calculated LDL 92 mg/dL 02/09/2019 1:57 PM CDT [facility] Comment: ----REFERENCE VALUE---- Desirable: <100 Above Desirable: 100-129 Borderline high: 130-159 High: 160-189 Very high: > or =190 Cholesterol, Non-HDL, 121 mg/dL 02/09/2019 1:57 PM CDT [facility] Comment: ----REFERENCE VALUE---- Desirable: <130 Above Desirable: 130-159 Borderline high: 160-189 High: 190-219 Very high: > or =220 Specimen Anatomical Collection Method Collection Time Receive d Time (Source) Location / / Volume Laterality Blood (Blood, 02/09/2019 8:32 AM 02/10/20 19 1:12 Venous) CDT PM CDT Igor Horn P.A.-C. LAB BLOOD ADD-ON Performing Organization Address City/State/ZIP Code Phon e Number [facility] [address] [place] [address] LAB Comprehensive Metabolic Panel (02/09/2019 8:32 AM CDT) P athologist Signature Potassium, S 4.3 3.6 - 5.2 02/09/2019 [facility] mmol/L 1:57 PM [facility] Sodium, S 142 135 - 145 02/09/2019 [facility] mmol/L 1:57 PM [facility] Chloride, S 103 98 - 107 02/09/2019 [facility] mmol/L 1:57 PM [facility] Bicarbonate, S 28 22 - 29 02/09/2019 [facility] mmol/L 1:57 PM [facility] Anion Gap 11 7 - 15 02/09/2019 [facility] 1:57 PM [facility] BUN (Blood Urea 16 6 - 21 02/09/2019 [facility] Nitrogen), S mg/dL 1:57 PM [facility] Creatinine 0.76 0.59 - 02/09/2019 [facility] 1.04 mg/dL 1:57 PM [facility] eGFR-Non 76 >=60 02/09/2019 [facility] Black/ mL/min/BSA 1:57 PM [facility] Comment: ----ADDITIONAL INFORMATION---- Estimated GFR calculated using the 2009 CKD_EPI creatinine equation. eGFR-Black/ 88 >=60 mL/min/BSA 2018 1:57 PM [facility] Comment: ----ADDITIONAL INFORMATION---- Estimated GFR calculated using the 2009 CKD_EPI creatinine equation. Calcium, Total, S 9.8 8.8 - 10.2 02/09/2019 1:57 PM [facility] mg/dL [facility] Glucose, S 117 70 - 140 mg/dL 02/09/2019 3:19 PM [facility] Protein, Total, S 7.0 6.3 - 7.9 g/dL 02/09/2019 1:57 P [facility] Albumin, S 4.1 3.5 - 5.0 g/dL 02/09/2019 1:57 PM [facility] Aspartate Aminotransferase 14 8 - 43 U/L 02/09/2019 1 :57 PM [facility] Alkaline Phosphatase, S 81 35 - 104 U/L 02/09/2019 2: 12 PM [facility] Alanine Aminotransferase 19 7 - 45 U/L 02/09/2019 1:5 7 PM [facility] Bilirubin, Total, S 0.3 <=1.2 mg/dL 02/09/2019 1:57 PM [facility] Specimen Anatomical Collection Method Collection Time Receive d Time (Source) Location / / Volume Laterality Blood (Blood, 02/09/2019 8:32 AM 02/10/20 19 1:12 Venous) CDT PM CDT Igor Horn P.A.-C. LAB BLOOD ADD-ON Performing Organization Address City/State/ZIP Code Phon e Number [facility] [address] [place] [address] LAB documented in this encounter Visit Diagnoses Diagnosis Hyperlipidemia Hypothyroidism Primary Pain Knee Right Asthma Intrinsic (HCC) Screening Examination Diabetes Mellitus Hypertension Essential Primary documented in this encounter Care Teams Quarter Section Ironer Relationship Specialty Start Date End Date Igor Horn P.A.-C. PCP - General 06/14/18 03/15/22 [address] [place] [phone] documented as of this encounter
--- OUTSIDE RECORDS SUMMARY | 2022-08-14 22:19 | XMS_ITS | Encounter Summary ---
:1940 Author Organization [facility] Address [address] [place] [address] Care Team Providers Name Role Phone Igor Horn P.A.-C. 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 [facility] [address] [place] [address] Referral ID Status Reason Start Date Expiration Date Visits V isits Requested Authorized [id number] Closed Specialty 03/23/2019 03/22/2020 1 1 Services Required Encounter Details Date Type Department Care Team Description 04/07/2019 Comprehensive Visit Department of Roro Mayes, Dermato heliosis (Primary Dx); Dermatology in [place]. Malignant Neoplasm Of Forearm Squamous C ell Carcinoma Right; [place], [address] [place] Cancer Skin Per kassie History; [address] Keratosis Seborrheic Inflamed; [address] [place], [place] Keratosis Seborrheic; [place] [address] [place]; [phone] Angiomadeline Salmeron Social History Tobacco Use Types Packs/Day [...] have completed or the highest Roland, MEd, COMMERCIAL PRINT SALESMAN, MARIE) degree you have received? Sex Assigned at Date Recorded Female 06/26/2021 8:35 AM CDT documented as of this encounter Consult Notes Roro Mayes M.D. - 04/07/2019 3:40 PM CDT DERMATOLOGY CONSULT Supervised by: Dr. Dawna Quezada ([id number]). Patient seen and discussed with supervising tax credit leasing consultant, Dr. Quezada, who evaluated the patient [...] Radiation Oncology Sue Barry M.D. [address] [place] [address] Scheduled Referrals Name Type Priority Associated Order [...] Salmeron documented in this encounter Care Teams Telemarketer Relationship Specialty Start Date End Date Igor Horn P.A.-C. PCP - General 06/14/18 03/15/22 [address] [place] [address] documented as of this encounter
--- OUTSIDE RECORDS SUMMARY | 2022-08-14 22:19 | XMS_ITS | Encounter Summary ---
:1940 Author Organization [facility] Address [address] [place] [address] Care Team Providers Name Role Phone Igor Horn P.A.-C. 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 [address] [address] Referral ID Status Reason Start Date Expiration Date Visits V isits Requested Authorized [id number] Closed Specialty 03/23/2019 03/22/2020 1 1 Services Required Reason for Visit Reason Comments Results Echo results completed on 09/24. Outpatient (Routine) - Closed Specialty Diagnoses / Procedures Referred By Contact Refer red To Contact Family Medicine Igor Horn P. A.-C. [address] [phone] Referral ID Status Reason Start Date Expiration Date Visits Requ ested Visits Authorized [id number] Closed 02/12/2019 02/12/2020 1 1 Encounter Details Date Type Department Care Team Description 03/23/2019 Office Visit Department of Igor Byrd Pa in Knee Right (Primary Dx); Medicine in [place], P.A.-C. Regurgitation [place]; [place] 225 [facility] Screening Mammogram Breast Cancer; [address] [place], [place] Malignant Neoplasm Of Forear m Squamous Cell Carcinoma Right [place] PANG [address] [phone] Social History Tobacco Use Types Packs/Day Years [...] have completed or the highest Roland, MEd, ORDER TAKERS SUPERVISOR, MARIE) degree you have received? Sex [...] Body Mass Index 38.88 08/19/2018 2:24 PM BROADCAST ENGINEER documented in this encounter Progress Notes Igor [...] she wanted to have this done in [place] but there is some struggling with the [...] up for a mammogram with 3D in [place] Malignant Neoplasm Of Forearm Squamous Cell Carcinoma Right I put through a consult for her to have a full skin exam in [place] with Dermatology. Total time spent with her today was 25 minutes of which 20 was [id number] coordination of care and counseling Igor Horn P.A.-C. documented in this encounter Plan of Treatment Upcoming Encounters Date Type Specialty Care Team Description 08/22/2022 Clinical Communication Admitting/Central Scheduling 08/24/2022 Appointment Radiation Oncology Sue Barry M.D. [address] [place] [address] Scheduled Referrals Name Type Priority Associated Order Schedule Diagnoses Dermatology - General Outpatient Referral Routine Malignant Ne oplasm Expected: consult (clinic) Of Forearm Squamous 03/07 Cell Carcinoma (Approximate) , Right Expires: 03/23/2022 documented as of this encounter Results BI Breast Screening Bilateral with Tomosynthesis (04/07/2019 10:21 AM CDT) Anatomical Region Laterality Modality Breast, Breast Imaging RST LOS, Breast Imaging [facility], [facility] Bilateral Mammography Imaging [facility] Specimen (Source) Anatomical Collection Method Collection [...] Cancer documented in this encounter Care Teams Pricing Actuary Relationship Specialty Start Date End Date Igor Horn P.A.-C. PCP - General 06/14/18 03/15/22 [address] [place] [address] documented as of this encounter
--- OUTSIDE RECORDS SUMMARY | 2022-08-14 22:19 | XMS_ITS | Encounter Summary ---
:1940 Author Organization [facility] Address [address] [place] [address] Care Team Providers Name Role Phone Igor Horn P.A.-C. Primary Care Provider [phone] Reason for Visit Reason Comments Follow-up Follow up related to EKG res ults. Appointment Request (Routine) - Closed Specialty Diagnoses / Procedures Referred By Contact Refer red To Contact Family Medicine Referral ID Status Reason Start Date Expiration Date Visits Requ ested Visits Authorized [id number] Closed 05/04/2019 05/03/2020 1 1 Encounter Details Date Type Department Care Team Description 05/04/2019 Office Visit Department of Igor Byrd Bu [facility] in [place], [place]inda Left (Primary Dx) [address] [address] [phone] Social History Tobacco Use Types Packs/Day Years [...] have completed or the highest Roland, MEd, ASSISTANT CLINICAL DIRECTOR, MARIE) degree you have received? Sex [...] she is able to be more active., shewill let us know if she does develop [...] Appointment Radiation Oncology Sue Barry M.D. [address] [place] [phone] documented as of this encounter Visit Diagnoses Diagnosis Bundle Branch Block Left - Primary documented in this encounter Care Teams Photographer Lithographic Relationship Specialty Start Date End Date Igor Horn P.A.-C. PCP - General 06/14/18 03/15/22 [address] [place] [address] documented as of this encounter
--- OUTSIDE RECORDS SUMMARY | 2022-08-14 22:19 | XMS_ITS | Encounter Summary ---
:1940 Author Organization [facility] Address [address] [place] [address] Care Team Providers Name Role Phone Igor Horn P.A.-C. Primary Care Provider [phone] Encounter Details Date Type Department Care Team Description 04/07/2019 Orders Only Department of Family Tammy Garvin, APR N, Medicine, [facility], C.N. P. in [facility] [address] [place] [address] [place] [address] [phone] Social History Tobacco Use Types Packs/Day Years [...] meetings of the More than 4 times [facility] year 03/16/2022 clubs or organizations you [...] have completed or the highest Roland, MEd, LEGAL SUPPORT ASSISTANT, MARIE) degree you have received? Sex Assigned at Date Recorded Female 06/26/2021 8:35 AM CDT documented as of this encounter Plan of Treatment Upcoming Encounters Date Type Specialty Care Team Description 08/22/2022 Clinical Communication Admitting/Central Scheduling 08/24/2022 Appointment Radiation Oncology Sue Barry M.D. [address] [place] [address] documented as of this encounter Visit Diagnoses Not on filedocumented in this encounter Care Teams Set Up Mold Technician Relationship Specialty Start Date End Date Igor Horn P.A.-C. PCP - General 06/14/18 03/15/22 [address] [place] [address] documented as of this encounter
--- OUTSIDE RECORDS SUMMARY | 2022-08-14 22:19 | XMS_ITS | Encounter Summary ---
:1940 Author Organization [facility] Address [address] [place] [address] Care Team Providers Name Role Phone Igor Horn P.A.-C. Primary Care Provider [phone] Reason for Visit Reason Comments Asthma plan Encounter Details Date Type Department Care Team Description 01/08/2020 Clinical Communication Division of Allergic Valdemar Ma Asthma plan Diseases in [place] [address] [address] [facility] [address] [place] [address] [phone] Social History Tobacco Use Types Packs/Day Years [...] have completed or the highest Roland, MEd, REMOTE RUBY ON RAILS DEVELOPER, MARIE) degree you have received? Sex Assigned at Date Recorded Female 06/26/2021 8:35 AM CDT documented as of this encounter Miscellaneous Notes Telephone Encounter - Kimberly Medel R.N. - 01/08/2020 4:59 PM CDT Called patient back and informed her that if she develops symptoms of COVID-19 she should be seen locally and tested. Patient also said that she is 40 minutes away from [place] so if she is unable to drive [...] since she doesn't have a provider in [place] if she should take her Prednisone if [...] 01/08/2020 2:09 PM CDT She is in [place]. She asks how she should take her meds if she gets COVID-19. documented in this encounter Plan of Treatment Upcoming Encounters Date Type Specialty Care Team Description 08/22/2022 Clinical Communication Admitting/Central Scheduling 08/24/2022 Appointment Radiation Oncology Sue Barry M.D. 200 [place] [address] documented as of this encounter Visit Diagnoses Not on filedocumented in this encounter Care Teams Cnc Manufacturing Engineer Relationship Specialty Start Date End Date Igor Horn P.A.-C. PCP - General 06/14/18 03/15/22 [address] [facility] [address] documented as of this encounter
--- OUTSIDE RECORDS SUMMARY | 2022-08-14 22:19 | XMS_ITS | Encounter Summary ---
:1940 Author Organization [facility] Address [address] [place] [address] Care Team Providers Name Role Phone Igor Horn P.A.-C. Primary Care Provider [phone] Encounter Details Date Type Department Care Team Description 02/18/2020 Hospital Encounter Department of Justina Hyperlip idemia; Laboratory Medicine Reyna Costa Hypothyroidism Primary; in [place], [address] [place] [address] Hypertension Essential Primary [place], [place] 300 [facility] [address] [place], [place] [phone] [address] (Work) [phone] Social History Tobacco Use Types Packs/Day Years [...] have completed or the highest Roland, MEd, LOGISTICS ANALYTICS MANAGER, MARIE) degree you have received? Sex [...] Radiation Oncology Sue Barry M.D. [address] [place] [address] documented as of this encounter Procedures Procedure [...] Organization Address City/State/ZIP Code Phon e Number [facility]- [address] [place] [address] [facility] [place] [place] [address] System in [place] [address] (ABNORMAL) Lipid Panel (02/18/2020 9:05 AM [...] Organization Address City/State/ZIP Code Phon e Number [facility] [address] [place] [address] [place] [address] System in [place] [address] Comprehensive Metabolic Panel (02/18/2020 9:05 [...] CDT eGFR-Black/Afric 89 >=60 02/18/2020 [place] mL/min/BSA 11:02 AM CDT Comment: ----ADDITIONAL INFORMATION---- [...] Organization Address City/State/ZIP Code Phon e Number [facility] [address] [place] [address] [place] [address] System in [place] [address] [facility] documented in this encounter Visit Diagnoses Diagnosis Hyperlipidemia Hypothyroidism Primary Hypertension Essential Primary documented in this encounter Care Teams Sewing Machine Bobbin Winder Relationship Specialty Start Date End Date Igor Horn P.A.-C. PCP - General 06/14/18 03/15/22 [address] [place] [address] documented as of this encounter
--- OUTSIDE RECORDS SUMMARY | 2022-08-14 22:19 | XMS_ITS | Encounter Summary ---
:1940 Author Organization [facility] Address [address] [place] [address] Care Team Providers Name Role Phone Igor Horn P.A.-C. Primary Care Provider [phone] Reason for Visit Reason Onset Date Comments annual wellness scheduling 01/20/2019 Encounter Details Date Type Department Care Team Description 01/20/2019 Clinical Communication Department of car[place]o [place] Family Medicine, [place] [facility], in [address] [phone] Social History Tobacco Use Types Packs/Day Years [...] Radiation Oncology Sue Barry M.D. [address] [place] [address] documented as of this encounter Visit Diagnoses Not on filedocumented in this encounter Care Teams Couture Alterations Dressmaker Relationship Specialty Start Date End Date Igor Horn P.A.-C. PCP - General 06/14/18 03/15/22 [address] [place] [address] documented as of this encounter
--- OUTSIDE RECORDS SUMMARY | 2022-08-14 22:19 | XMS_ITS | Encounter Summary ---
:1940 Author Organization [facility] Address [address] [place] [address] Care Team Providers Name Role Phone Igor Horn P.A.-C. Primary Care Provider [phone] Reason for Visit Reason Comments Med Refill Encounter Details Date Type Department Care Team Description 02/09/2020 Refill Department of Family Medicine Igor Rodríguez P.A.-C. Med Refill in [place], [place] 225 [facility] [address] [place] [address] [place] [address] [phone] Social History Tobacco Use Types Packs/Day Years [...] of the More than 4 times [facility] year 03/16/2022 clubs or organizations you [...] for the very basics like Not h sheyal at all 03/16/2022 food, housing, medical care, [...] have completed or the highest Roland, MEd, GUITAR TECHNICIAN, MARIE) degree you have received? Sex Assigned at Date Recorded Female 06/26/2021 8:35 AM CDT documented as of this encounter Plan of Treatment Upcoming Encounters Date Type Specialty Care Team Description 08/22/2022 Clinical Communication Admitting/Central Scheduling 08/24/2022 Appointment Radiation Oncology Sue Barry M.D. [address] [place] [address] documented as of this encounter Visit Diagnoses Not on filedocumented in this encounter Care Teams Medical Records Tech Relationship Specialty Start Date End Date Igor Horn P.A.-C. PCP - General 06/14/18 03/15/22 [address] [place] [address] documented as of this encounter
--- OUTSIDE RECORDS SUMMARY | 2022-08-14 22:19 | XMS_ITS | Encounter Summary ---
:1940 Author Organization [facility] Address [address] [place] [address] Care Team Providers Name Role Phone Igor Horn P.A.-C. Primary Care Provider [phone] Encounter Details Date Type Department Care Team Description 03/18/2019 Hospital Encounter Department of Igor Horn [facility] Heart Cardiovascular Diseases POlinda in [facility] [place] [facility] [address] [facility] [address] [place] [address] [phone] Social History Tobacco Use Types Packs/Day Years [...] Radiation Oncology Sue Barry M.D. [address] [place] [address] documented as of this encounter Procedures Procedure Name Priority Date/Time Associated Diagnosis Comme nts (TTE) 2D ECHO Routine 03/18/2019 2:54 PM [facility] Results for this DOPPLER COLOR CDT procedure are in the results section. documented in this encounter Results (TTE) 2D ECHO DOPPLER COLOR (03/18/2019 2:54 PM CDT) [facility] gist Method Time Signature Ejection Fraction 66 [...] effusion. For the complete report, see the [email or web address] Documents below. See PDF For Result Procedure Note Wicho Flores M.D. - 03/18/2019Form atting of this note might be different from the original. For the complete report, see the [employer] Documents below. Final Impressions 1. Aortic valve [...] Heart documented in this encounter Care Teams Lot Worker Relationship Specialty Start Date End Date Igor Horn P.A.-C. PCP - General 06/14/18 03/15/22 [address] [place] [address] documented as of this encounter
--- OUTSIDE RECORDS SUMMARY | 2022-08-14 22:19 | XMS_ITS | Encounter Summary ---
:1940 Author Organization [facility] Address [address] [place] [address] Care Team Providers Name Role Phone Igor Horn P.A.-C. Primary Care Provider Reason for Visit Reason Comments Other Has many questions she would like answered today, She brought a list with her. 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 Appointment Request (Routine) - Closed Specialty Diagnoses / Procedures Referred By Contact Refer red To Contact Family Medicine Referral ID Status Reason Start Date Expiration Date Visits Requ ested Visits Authorized [id number] Closed 09/15/2019 09/14/2020 1 1 Encounter Details Date Type Department Care Team Description 09/28/2019 Office Visit Department of Family Igor Horn Pa in Knee Right (Primary Dx); Medicine in [place], [place]. Pain Low Back; [address] Body Mass Index 30-39.9 Adult; [address] [place], [place] [address] [phone] Social History Tobacco Use Types Packs/Day Years [...] 03/16/2022 organizations such as islam groups, unions, fraPoup or athletic groups, or school groups? How [...] have completed or the highest Roland, MEd, CNC MANAGER, MARIE) degree you have received? Sex Assigned at Date Recorded Female 06/26/2021 8:35 AM CDT documented as of this encounter Last Filed Vital Signs Vital Sign Reading Time Taken Comments Blood Pressure 135/66 09/28/2019 10:18 AM DIETARY AID Pulse 76 09/28/2019 10:15 AM DIETARY AID Temperature 36 ??C (96.8 ??F) 09/28/2019 10:15 AM DIETARY AID Respiratory Rate 16 09/28/2019 10:15 AM DIETARY AID Oxygen Saturation 97% 09/28/2019 10:15 AM DIETARY AID Inhaled Oxygen Concentration - - Weight 101 kg (222 lb 7.1 oz) 09/28/2019 10:15 AM DIETARY AID Height 160.6 cm (5' 3.23) 09/28/2019 10:15 AM DIETARY AID Body Mass Index 39.12 09/28/2019 10:15 AM DIETARY AID documented in this encounter Progress Notes Igor [...] pain issues. She isplanning to go to [place] for the winter and the warm air has been very beneficial for her in the past and she is excited about doing that she is planning to return to [place] in February. OBJECTIVE Vitals: 09/28/19 1015 09/28/19 [...] her physical therapy once she returns to [place]. We stressed the importance of doing nonweightbearing [...] todaywas 25 minutes of which 20 was rtim-to-ibjn coordination of care and counseling Igor Horn P.A.-C. ARY AID documented in this encounter Plan of Treatment Upcoming Encounters Date Type Specialty Care Team Description 08/22/2022 Clinical Communication Admitting/Central Scheduling 08/24/2022 Appointment Radiation Oncology Sue Barry M.D. [address] [place] [address] documented as of this encounter Visit Diagnoses Diagnosis Pain Knee Right - Primary Pain Low Back Unspecified Obesity Body Mass Index 30-39.9 Adult Bundle Branch Block Left documented in this encounter Care Teams International Editorial Producer Relationship Specialty Start Date End Date Igor Horn P.A.-C. PCP - General 06/14/18 03/15/22 [address] [place] [address] documented as of this encounter
--- OUTSIDE RECORDS SUMMARY | 2022-08-14 22:19 | XMS_ITS | Encounter Summary ---
:1940 Author Organization [facility] Address [address] [place] [address] Care Team Providers Name Role Phone Igor Horn P.A.-C. Primary Care Provider [phone] Reason for Referral Outpatient (Routine) - Closed Specialty Diagnoses / Procedures Referred By Contact Refer red To Contact Family Medicine Igor Horn P. A.-C. [facility] [address] [address] Referral ID Status Reason Start Date Expiration Date Visits Requ ested Visits Authorized [id number] Closed 02/12/2019 02/12/2020 1 1 Outpatient (Routine) - Closed Specialty Diagnoses / Procedures Referred By Contact Refer red To Contact Family Igor Winter P. A.-C. [facility] [address] [address] Referral ID Status Reason Start Date Expiration Date Visits Requ ested Visits Authorized [id number] Closed 02/12/2019 02/12/2020 1 1 Reason for Visit Reason Comments Med Refill Annual medication renewal/re viewed for the year. Would like 90 day supply with the 3 ref ills. Breast Cancer Screening Patient states she would lik e to get a mammogram in [place]. Order is already in chart. Outpatient (Routine) - Closed Specialty Diagnoses / Procedures Referred By Contact Refer red To Contact Family Medicine Igor Horn P. A.-C. [facility] Region [address] [place] [address] Referral ID Status Reason Start Date Expiration Date Visits Requ ested Visits Authorized [id number] Closed 08/25/2018 08/25/2019 1 1 Encounter Details Date Type Department Care Team Description 02/12/2019 Comprehensive Visit Department of Paige Hornli pidemia (Primary Dx); Family Medicine in [place], Hypothyro idism Primary; [place], [place] Shivam Pain Knee Right; [address] [facility] 225 [facility] Rhinitis Allergic; [place], [place] Asthma Intrinsi c ([facility]); [phone] Hypertension Essential Primary; [phone] [facility] (Work) Social History Tobacco Use [...] Body Mass Index 38.57 08/19/2018 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 - 02/12/2019 8:45 AM CDT CHIEF COMPLAINT / REASON FOR VISIT Ainsley Cedeño is a 78 y.o. female who presents for evaluation of Med Refill (Annualmedication renewal/reviewed for the year. Would like 90 day supply with the 3 refills.) and Breast Cancer Screening (Patient states she would like to get a mammogram in [place]. Order is already in chart.). HISTORY OF PRESENT ILLNESS Ainsley presents today for her yearly history and physical. For the most part she has been in good health. She has asthma she sees a physician in [place] for this. She has hypertension this is well controlled she has hyperlipidemia this is well controlled she has hypothyroidism this is well controlled. 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 She has allergies that are [...] She will continue to follow with her display and banner designer in [place] she uses her inhalers regularly #6 Hypertension Essential Primary This is well controlled I renewed her medications today #7 [facility] I am going to set her up with an echocardiogram am going to see her back to discuss the results and follow-up Igor Horn P.A.-C. documented in this encounter Miscellaneous Notes Addendum Note - Stephen Rubin LAntwanP.N. - 02/12/2019 8:45 AM CDT Addended by: STEPHEN RUBIN on: 02/12/2019 11:31 AM Modules accepted: Orders documented in this encounter Plan of Treatment Upcoming Encounters Date Type Specialty Care Team Description 08/22/2022 Clinical Communication Admitting/Central Scheduling 08/24/2022 Appointment Radiation Oncology Sue Barry M.D. [address] [place] [phone] Scheduled Referrals Name Type Priority Associated Diagnoses [facility] Outpatient Referral Routine Expec michelle: [...] supplements. ??If the result does not [facility] clinical observations, repeat testing after patient refrains fr om the use of supplements for at least 12 hours. Specimen Anatomical Collection Method Collection Time Receive d Time (Source) Location / / Volume Laterality Blood (Blood, 02/18/2020 9:05 AM 02/18/20 20 Venous) CDT 10:30 AM CDT Igor Horn P.A.-C. LAB BLOOD ADD-ON Performing Organization Address City/State/ZIP Code Phon e Number [facility] [address] [facility] [place] [address] [place] [address] System in [place] [address] [facility] (ABNORMAL) Lipid Panel (02/18/2020 9:05 AM CDT) [...] Address City/State/ZIP Code Phon e Number [facility] [address] [place] [address] [facility] [place] [address] System in [place] [address] Comprehensive Metabolic Panel (02/18/2020 9:05 [...] CDT eGFR-Black/Afric 89 >=60 02/18/2020 OW[place] an [place] mL/min/BSA 11:02 AM CDT Comment: ----ADDITIONAL INFORMATION---- [...] Organization Address City/State/ZIP Code Phon e Number [facility]- [address] [place] [address] [place] [address] System in [place] [address] (TTE) 2D ECHO DOPPLER COLOR (03/18/2019 2:54 PM CDT) [facility] Method Time Signature Ejection Fraction 66 MC [...] Heart documented in this encounter Care Teams Heavy Duty Mechanic Relationship Specialty Start Date End Date Igor Horn P.A.-C. PCP - General 06/14/18 03/15/22 [address] [place] [address] documented as of this encounter
--- OUTSIDE RECORDS SUMMARY | 2022-08-14 22:19 | XMS_ITS | Encounter Summary ---
:1940 Author Organization [facility] Address [address] [place] [address] Care Team Providers Name Role Phone Igor Horn P.A.-C. Primary Care Provider [phone] Encounter Details Date Type Department Care Team Description 05/01/2019 Hospital Encounter Department of Justina General Medical Examination Adult; Radiology in Shivam Costa Pain Knee Right [place], [place] [address] [place] [phone] [phone] Social History Tobacco Use Types Packs/Day Years [...] meetings of the More than 4 times [facility] year 03/16/2022 clubs or organizations you belong [...] have completed or the highest Roland, MEd, GUM MAKER, MARIE) degree you have received? Sex Assigned [...] Radiation Oncology Sue Barry M.D. [address] [place] [address] documented as of this encounter Procedures Procedure [...] Right documented in this encounter Care Teams Manager Of Marketing Relationship Specialty Start Date End Date Igor Horn P.A.-C. PCP - General 06/14/18 03/15/22 [address] [place] [address] documented as of this encounter
--- OUTSIDE RECORDS SUMMARY | 2022-08-14 22:19 | XMS_ITS | Encounter Summary ---
:1940 Author Organization [facility] Address [address] [place] [address] Care Team Providers Name Role Phone Igor Horn P.A.-C. Primary Care Provider [phone] Reason for Visit Reason Comments Pre-op Exam Preop for right TKA. [facility] with Dr. Nickerson on 05/05/19. Outpatient (Routine) - Closed Specialty Diagnoses / Procedures Referred By Contact Refer red To Contact General Surgery Diagnoses General Medical Examination Adult Igor Horn, [facility] P.A.-C. [address] [place] [address] Referral ID Status Reason Start Date Expiration Date Visits Requ ested Visits Authorized [id number] Closed 04/06/2019 04/05/2020 1 1 Encounter Details Date Type Department Care Team Description 04/30/2019 Office Visit Department of Family Igor Horn Pa in Knee Right (Primary Dx); Medicine in [place], [place]. General Medical Examination Adult; [place] [address] [facility] Branch Block Left [address] [place] [phone] Social History Tobacco Use Types [...] 03/16/2022 organizations such as yarsani groups, unions, fraHari [employer] or athletic groups, or school groups? How [...] have completed or the highest Roland, MEd, FILAMENT CUTTER, MARIE) degree you have received? Sex [...] evaluation of Pre-op Exam (Preopfor right TKA. [facility]. with Dr. Nickerson on 05/05/19.). HISTORY OF [...] Radiation Oncology Sue Barry M.D. [address] [place] [address] documented as of this encounter Procedures Procedure [...] Igor Horn P.A.-C. IMG DIAGNOSTIC IMAGING PROCE [facility] ECG 12 Lead (04/30/2019 9:47 AM CDT) P athologist Signature Ventricular Rate 63 BPM MUSE ECG/Min WA Interval 180 ms MUSE QRSD Interval 154 ms MUSE QT Interval 448 ms MUSE QTC Interval 458 ms MUSE P [place] 60 degrees MUSE R [place] -42 degrees MUSE T Wave [place] 81 degrees MUSE Specimen Anatomical Collection Method [...] present QRS axis has changed Reviewed by Paula Yahaira, CRAT Igor Horn P.A.-C. ECG ORDERABLES Performing Organization [...] Address City/State/ZIP Code Phon e Number [facility] [address] [place] [address] LAB Basic Metabolic Panel (04/30/2019 9:42 AM [...] >=60 04/30/2019 Black/ mL/min/BSA 4:08 PM CDT Micronesian Comment: ----ADDITIONAL INFORMATION---- Estimated GFR calculated using [...] Address City/State/ZIP Code Phon e Number [facility] [address] [place] [address] LAB documented in this encounter Visit Diagnoses Diagnosis Pain Knee Right - Primary General Medical Examination Adult Bundle Branch Block Left General Medical Examination Adult Pain Knee Right documented in this encounter Care Teams Dishroom Attendant Relationship Specialty Start Date End Date Igor Horn P.A.-C. PCP - General 06/14/18 03/15/[address] [place], [place] [address], [place] [address] documented as of this encounter
--- OUTSIDE RECORDS SUMMARY | 2022-08-14 22:19 | XMS_ITS | Encounter Summary ---
:1940 Author Organization [facility] Address [address] [place] [address] Care Team Providers Name Role Phone Igor Horn P.A.-C. Primary Care Provider [phone] Encounter Details Date Type Department Care Team Description 12/25/2018 Clinical Communication Department of [facility] Fide Durant, Internal Medicine in [place], [place] [address] [phone] [phone] Social History Tobacco Use Types Packs/Day Years [...] Radiation Oncology Sue Barry M.D. [address] [place] [address] documented as of this encounter Visit Diagnoses Not on filedocumented in this encounter Care Teams Aerial Photographer Relationship Specialty Start Date End Date Igor Horn P.A.-C. PCP - General 06/14/18 03/15/22 [address] [place] [address] documented as of this encounter
--- OUTSIDE RECORDS SUMMARY | 2022-08-14 22:19 | XMS_ITS | Encounter Summary ---
:1940 Author Organization [facility] Address [address] [place] [address] Care Team Providers Name Role Phone Igor Horn P.A.-C. Primary Care Provider [phone] Encounter Details Date Type Department Care Team Description 12/24/2019 Refill Department of Family Medicine, Igor Ross P.A.-C. [facility], in [address] [place] [address] [place] [address] [place] [address] [phone] Social History Tobacco Use Types Packs/Day Years [...] of the More than 4 times [facility] year 03/16/2022 clubs or organizations you belong [...] have completed or the highest Roland, MEd, SCOUT LEASER, MARIE) degree you have received? Sex Assigned at Date Recorded Female 06/26/2021 8:35 AM CDT documented as of this encounter Plan of Treatment Upcoming Encounters Date Type Specialty Care Team Description 08/22/2022 Clinical Communication Admitting/Central Scheduling 08/24/2022 Appointment Radiation Oncology Sue Barry M.D. [address] [place] [address] documented as of this encounter Visit Diagnoses Not on filedocumented in this encounter Care Teams Wind Turbine Sheet Metal Worker Relationship Specialty Start Date End Date Igor Horn P.A.-C. PCP - General 06/14/18 03/15/22 [address] [place] [address] documented as of this encounter
--- OUTSIDE RECORDS SUMMARY | 2022-08-14 22:20 | XMS_ITS | Encounter Summary ---
:1940 Author Organization [facility] Address [address] [place] [address] Care Team Providers Name Role Phone Igor Horn P.A.-C. Primary Care Provider [phone] Reason for Visit Reason Onset Date Comments Recent asthma flare 10/27/2018 Encounter Details Date Type Department Care Team Description 10/27/2018 Clinical Communication Division of Selena Ma asthma flare Allergic Diseases Valdemar Olivo M.D. in [address] [place] [address] [place], [place] [phone] (Work) [phone] Social History Tobacco Use Types Packs/Day Years [...] Valdemar Ma M.D. - 10/28/2018 3:14 PM CNC OPERATOR Note reviewed. Recommend continuing the prednisone 10mg day for two more days. If continuing to do well can stop then. Would keep the Advair at 1 puff twice daily for two weeks. Thanks, Dr. Ma OPERATOR Telephone Encounter - Alpa De RBenedict - 10/27/2018 10:52 AM CNC OPERATOR HISTORY OF PRESENT ILLNESS A phone call was returned to Ms. Cedeño who is currently wintering in [place], [place]. [facility] one [facility] she noted some [...] during the extended stay. She returned to [place] on October 05, 2018. She is seeking recommendationsfrom Dr. Ma. She is aware that he is not in the [facility]. The following portions of the patient's history were reviewed and updated as appropriate: current medications, medical history and problem list. ASSESSMENT / PLAN Patient information will be forwarded to Dr. Ma for review. Disposition/Recommendation: provider notified and awaiting provider recommendations Education: patient/caller able to teach back Caller agreeable to plan of care: yes The following references were used: nursing clinical judgement OPERATOR Telephone Encounter - Karina Perdomo - 10/27/2018 10:41 AM CST She had an asthma flare but [place]. She wants to know what to do going forward. OPERATOR documented in this encounter Plan of Treatment Upcoming Encounters Date Type Specialty Care Team Description 08/22/2022 Clinical Communication Admitting/Central Scheduling 08/24/2022 Appointment Radiation Oncology Sue Barry M.D. [address] [place] [address] documented as of this encounter Visit Diagnoses Not on filedocumented in this encounter Care Teams Label Paster Relationship Specialty Start Date End Date Igor Horn P.A.-C. PCP - General 06/14/18 03/15/22 [address] [place] [address] documented as of this encounter
--- OUTSIDE RECORDS SUMMARY | 2022-08-14 22:20 | XMS_ITS | Encounter Summary ---
:1940 Author Organization [facility] Address [address] [place] [address] Care Team Providers Name Role Phone Aneta Whitaker APRN, C.N.PAntwan, M.S.N. Primary Care Pr ovider Encounter Details Date Type Department Care Team Description 10/11/2017 Orders Only Ur[facility] [place], [place] MISA C.N.PAntwan, M.S.N. [address] [place] [address] [place] [address] [phone] (Wo rk) Social History Tobacco Use Types [...] Appointment Radiation Oncology Sue Barry M.D. [address] [place] [address] documented as of this encounter Visit Diagnoses Not on filedocumented in this encounter Care Teams Spindle Setter Relationship Specialty Start Date End Date Aneta Whitaker APRN, C.N.P., PCP - General 06/13/18 M.S.N. [address] [place] [address] documented as of this encounter
--- OUTSIDE RECORDS SUMMARY | 2022-08-14 22:20 | XMS_ITS | Encounter Summary ---
:1940 Author Organization [facility] Address [address] [place] [address] Care Team Providers Name Role Phone Whitaker, Abelardo Marquis APRN.NAvtar, M.S.N. Primary Care Pr ovider Reason for Referral Outpatient (Routine) - Closed Specialty Diagnoses / Procedures Referred By Contact Refer red To Contact Allergy and Immunology Diagnoses Asthma (HCC) Valdemar Ma, [facility] [address] [place] [address] Referral ID Status Reason Start Date Expiration Date Visits Requ ested Visits Authorized [id number] Closed 01/24/2018 07/23/2018 1 1 Encounter Details Date Type Department Care Team Description 01/24/2018 Orders Only Division of Allergic Valdemar Ma, Asthma (HCC) Diseases in [facility] [address] [facility] 200 [place] [phone] (Wo rk) Social History Tobacco Use Types [...] Appointment Radiation Oncology Sue Barry M.D. [address] [place] [address] Scheduled Referrals Name Type Priority Associated Order Schedule Diagnoses Allergy and Outpatient Referral Routine Asthma (HCC) Expected : Immunology - 08/22/2018 Mastocytosis consult (Approx imate), (clinic) Expires: 01/24/2021 documented as of this encounter Results Spirometry (08/19/2018 1:35 PM COSMETICS DEMONSTRATOR) P athologist Signature VC MAX POST 2.29 1.87 - 08/27/2018 [place] 3.42 L 9:18 AM COSMETICS DEMONSTRATOR SUITE PostFEV1 1.57 1.44 - 08/27/2018 [place] 2.57 L 9:18 AM COSMETICS DEMONSTRATOR SUITE FEV1/FVC POST 68.89 63.43 - 08/27/2018 [place] 89.68 % 9:18 AM COSMETICS DEMONSTRATOR SUITE PostFVC 2.28 1.87 - 08/27/2018 [place] 3.42 L 9:18 AM COSMETICS DEMONSTRATOR SUITE FET POST 7.68 sec 08/27/2018 [place] 9:18 AM COSMETICS DEMONSTRATOR SUITE PEF POST 4.51 2.65 - 08/27/2018 [place] 7.95 L/s 9:18 AM COSMETICS DEMONSTRATOR SUITE FEF 25-75 % 0.96 0.72 - 08/27/2018 [place] POST 3.04 L/s 9:18 AM COSMETICS DEMONSTRATOR SUITE VC MAX PRE 2.23 1.87 - 08/27/2018 [place] 3.42 L 9:18 AM COSMETICS DEMONSTRATOR SUITE FEV1 1.45 1.44 - 08/27/2018 [place] 2.57 L 9:18 AM COSMETICS DEMONSTRATOR SUITE FEV1/FVC 64.81 63.43 - 08/27/2018 [place] 89.68 % 9:18 AM COSMETICS DEMONSTRATOR SUITE FVC 2.23 1. - 08/27/2018 [place] 3.42 L 9:18 AM COSMETICS DEMONSTRATOR SUITE FET PRE 7.19 sec 08/27/2018 [place] 9:18 AM COSMETICS DEMONSTRATOR SUITE PEF PRE 4.20 2.65 - 08/27/2018 [place] 7.95 L/s 9:18 AM COSMETICS DEMONSTRATOR SUITE BHV40-84% 0.84 0.72 - 08/27/2018 [place] 3.04 L/s 9:18 AM COSMETICS DEMONSTRATOR SUITE SUBSTANCE POST NaN 08/27/2018 [place] 9:18 AM COSMETICS DEMONSTRATOR SUITE DOSE POST NaN 08/27/2018 [place] 9:18 AM COSMETICS DEMONSTRATOR SUITE % PRED VC MAX 2.23 1.87 - 08/27/2018 [place] 3.42 % 9:18 AM COSMETICS DEMONSTRATOR SUITE FEV1% 1.45 1.44 - 08/27/2018 [place] 2.57 % 9:18 AM COSMETICS DEMONSTRATOR SUITE % PRED FEV1/FVC 64.81 63.43 - 08/27/2018 [place] 89.68 % 9:18 AM COSMETICS DEMONSTRATOR SUITE FVC% 2.23 1.87 - 08/27/2018 [place] 3.42 % 9:18 AM COSMETICS DEMONSTRATOR SUITE % PRED PEF 4.20 2.65 - 08/27/2018 [place] 7.95 % 9:18 AM COSMETICS DEMONSTRATOR SUITE % PRED FEF 0.84 0.72 - 08/27/2018 [place] 25-75% 3.04 % 9:18 AM COSMETICS DEMONSTRATOR SUITE PRED VC MAX NaN 1.87 - 08/27/2018 [place] 3.42 L 9:18 AM COSMETICS DEMONSTRATOR SUITE PRED FEV 1 NaN 1.44 - 08/27/2018 [place] 2.57 L 9:18 AM COSMETICS DEMONSTRATOR SUITE PRED FEV1/FVC NaN 63.43 - 08/27/2018 [place] 89.68 % 9:18 AM COSMETICS DEMONSTRATOR SUITE PRED FVC NaN 1.87 - 08/27/2018 [place] 3.42 L 9:18 AM COSMETICS DEMONSTRATOR SUITE PRED PEF NaN 2.65 - 08/27/2018 [place] 7.95 L/s 9:18 AM COSMETICS DEMONSTRATOR SUITE PRED FEF 25-75% NaN 0.72 - 08/27/2018 [place] 3.04 L/s 9:18 AM COSMETICS DEMONSTRATOR SUITE Specimen (Source) Anatomical Collection Method Collection Time Re ceived Time Location / / Volume Laterality 08/19/2018 1:35 PM COSMETICS DEMONSTRATOR Valdemar Ma M.D. PFT ORDERABLES Performing Organization Address City/State/ZIP Code Phon e Number [place] [address] [facility] [address] documented in this encounter Visit Diagnoses Diagnosis Asthma (HCC) documented in this encounter Care Teams Timekeeping Supervisor Relationship Specialty Start Date End Date Whitaker, Aneta Rodriguez APRN, C.N.P., PCP - General 06/13/18 M.S.N. [address] [place] [phone] documented as of this encounter
--- OUTSIDE RECORDS SUMMARY | 2022-08-14 22:20 | XMS_ITS | Encounter Summary ---
:1940 Author Organization [facility] Address [address] [place] [address] Care Team Providers Name Role Phone Igor Horn P.A.-C. Primary Care Provider [phone] Reason for Visit Reason Comments Asthma Encounter Details Date Type Department Care Team Description 08/19/2018 Clinical Support Division of Allergic Valdemar aM M.D. [address] [place] [address] [phone] Asthma (HCC) Diseases in [place], Tanja Colmenares, R.N. [address] [place] [address] [phone] [place] [address] [place] [phone] Social History Tobacco Use Types Packs/Day [...] Radiation Oncology Sue Barry M.D. [address] [place] [address] documented as of this encounter Procedures Procedure Name Priority Date/Time Associated Diagnosis Comme nts ALI SPIROMETRY Routine 08/19/2018 1:35 PM Asthma (HCC) Results for this FINANCIAL SERVICES ASSOCIATE procedure are i n the results section . documented in this encounter Results Spirometry (08/19/2018 1:35 PM FINANCIAL SERVICES ASSOCIATE) P athologist Signature VC MAX POST 2.29 1.87 - 08/27/2018 [facility] 3.42 L 9:18 AM FINANCIAL SERVICES ASSOCIATE SUITE PostFEV1 1.57 1.44 - 08/27/2018 [facility] 2.57 L 9:18 AM FINANCIAL SERVICES ASSOCIATE SUITE FEV1/FVC POST 68.89 63.43 - [facility].68 % 9:18 AM FINANCIAL SERVICES ASSOCIATE SUITE PostFVC 2.28 1.87 - 08/27/2018 [facility] 3.42 L 9:18 AM FINANCIAL SERVICES ASSOCIATE SUITE FET POST 7.68 sec 08/27/2018 [facility] 9:18 AM FINANCIAL SERVICES ASSOCIATE SUITE PEF POST 4.51 2.65 - 08/27/2018 [facility] 7.95 L/s 9:18 AM FINANCIAL SERVICES ASSOCIATE SUITE FEF 25-75 % 0.96 0.72 - 08/27/2018 [facility] POST 3.04 L/s 9:18 AM FINANCIAL SERVICES ASSOCIATE SUITE VC MAX PRE 2.23 1.87 - 08/27/2018 [facility] 3.42 L 9:18 AM FINANCIAL SERVICES ASSOCIATE SUITE FEV1 1.45 1.44 - 08/27/2018 [facility] 2.57 L 9:18 AM FINANCIAL SERVICES ASSOCIATE SUITE FEV1/FVC 64.81 63.43 - 08/27/2018 [facility] 89.68 % 9:18 AM FINANCIAL SERVICES ASSOCIATE SUITE FVC 2.23 1.87 - 08/27/2018 [facility] 3.42 L 9:18 AM FINANCIAL SERVICES ASSOCIATE SUITE FET PRE 7.19 sec 08/27/2018 [place] 9:18 AM FINANCIAL SERVICES ASSOCIATE SUITE PEF PRE 4.20 2.65 - 08/27/2018 [facility] 7.95 L/s 9:18 AM FINANCIAL SERVICES ASSOCIATE SUITE YUL56-98% 0.84 0.72 - 08/27/2018 [facility] 3.04 L/s 9:18 AM FINANCIAL SERVICES ASSOCIATE SUITE SUBSTANCE POST NaN 08/27/2018 [facility] 9:18 AM FINANCIAL SERVICES ASSOCIATE SUITE DOSE POST NaN 08/27/2018 [facility] 9:18 AM FINANCIAL SERVICES ASSOCIATE SUITE % PRED VC MAX 2.23 1. - 08/27/2018 [facility] 3.42 % 9:18 AM FINANCIAL SERVICES ASSOCIATE SUITE FEV1% 1.45 1.44 - 08/27/2018 [facility] 2.57 % 9:18 AM FINANCIAL SERVICES ASSOCIATE SUITE % PRED FEV1/FVC 64.81 63.43 - 08/27/2018 [facility] 89.68 % 9:18 AM FINANCIAL SERVICES ASSOCIATE SUITE FVC% 2.23 1.87 - 08/27/2018 [facility] 3.42 % 9:18 AM FINANCIAL SERVICES ASSOCIATE SUITE % PRED PEF 4.20 2.65 - 08/27/2018 [facility] 7.95 % 9:18 AM FINANCIAL SERVICES ASSOCIATE SUITE % PRED FEF 0.84 0.72 - 08/27/2018 [facility] 25-75% 3.04 % 9:18 AM FINANCIAL SERVICES ASSOCIATE SUITE PRED VC MAX NaN . - 08/27/2018 [facility] 3.42 L 9:18 AM FINANCIAL SERVICES ASSOCIATE SUITE PRED FEV 1 NaN 1.44 - 08/27/2018 [facility] 2.57 L 9:18 AM FINANCIAL SERVICES ASSOCIATE SUITE PRED FEV1/FVC NaN 63.43 - 08/27/2018 [facility] 89.68 % 9:18 AM FINANCIAL SERVICES ASSOCIATE SUITE PRED FVC NaN 1.87 - 08/27/2018 [facility] 3.42 L 9:18 AM FINANCIAL SERVICES ASSOCIATE SUITE PRED PEF NaN 2.65 - 08/27/2018 [facility] 7.95 L/s 9:18 AM FINANCIAL SERVICES ASSOCIATE SUITE PRED FEF 25-75% NaN 0.72 - 08/27/2018 [facility] 3.04 L/s 9:18 AM FINANCIAL SERVICES ASSOCIATE SUITE Specimen (Source) Anatomical Collection Method Collection Time Re ceived Time Location / / Volume Laterality 08/19/2018 1:35 PM FINANCIAL SERVICES ASSOCIATE Valdemar Ma M.D. PFT ORDERABLES Performing Organization Address City/State/ZIP Code Phon e Number [place] [facility] SUITE [facility] SU[address] NA documented in this encounter Visit Diagnoses Diagnosis Asthma (HCC) documented in this encounter Care Teams Import Export Coordinator Relationship Specialty Start Date End Date Igor Horn P.A.-C. PCP - General 06/14/18 03/15/22 [address] [place] [phone] documented as of this encounter
--- OUTSIDE RECORDS SUMMARY | 2022-08-14 22:20 | XMS_ITS | Encounter Summary ---
:1940 Author Organization [facility] Address [address] [place] [address] Care Team Providers Name Role Phone Aneta Whitaker APRN, C.N.PAntwan, M.S.N. Primary Care Pr ovider Encounter Details Date Type Department Care Team Description 10/09/2017 Orders Only Urgent Care in [facility], Dysuria (Prim haroldo Dx) [place], [place] Aneta Rodriguez APRN, [address] C.N.P., M.S.N. [place], [place] [address] [facility] [phone] [place], [place] [phone] (Wo rk) Social History Tobacco Use Types [...] Radiation Oncology Sue Barry M.D. [address] [place] [address] documented as of this encounter Visit Diagnoses Diagnosis Dysuria - Primary documented in this encounter Care Teams Partner Integration Planner Relationship Specialty Start Date End Date Sherman, Aneta Rodriguez APRN, C.N.P., PCP - General 06/13/18 M.S.N. [address] [place] [phone] documented as of this encounter
--- OUTSIDE RECORDS SUMMARY | 2022-08-14 22:20 | XMS_ITS | Encounter Summary ---
:1940 Author Organization [facility] Address [address] [place] [address] Care Team Providers Name Role Phone Igor Horn P.A.-C. Primary Care Provider [phone] Encounter Details Date Type Department Care Team Description 12/25/2018 Clinical Communication Department of [facility], [place], [place] [address] [phone] Social History Tobacco Use Types Packs/Day Years [...] Radiation Oncology Sue Barry M.D. [address] [place] [address] documented as of this encounter Visit Diagnoses Not on filedocumented in this encounter Care Teams Bow Maker Gift Wrapping Relationship Specialty Start Date End Date Igor Horn P.A.-C. PCP - General 06/14/18 03/15/22 [address] [place] [phone] documented as of this encounter
--- OUTSIDE RECORDS SUMMARY | 2022-08-14 22:20 | XMS_ITS | Encounter Summary ---
:1940 Author Organization [facility] Address [address] [place] [address] Care Team Providers Name Role Phone Aneta Whitaker APRN C.N.PAntwan, M.S.N. Primary Care Pr ovider Encounter Details Date Type Department Care Team Description 10/14/2017 Abstract Department of Family Medicine, Provider, Historical [facility], in [place], [place] [address] [place], [place] [phone] Social History Tobacco Use Types Packs/Day [...] Radiation Oncology Sue Barry M.D. [address] [place] [address] documented as of this encounter Visit Diagnoses Not on filedocumented in this encounter Care Teams Hot Packer Relationship Specialty Start Date End Date Aneta Whitaker APRN, C.N.P., PCP - General 06/13/18 M.S.NAntwna [address] [place] [address] documented as of this encounter
--- OUTSIDE RECORDS SUMMARY | 2022-08-14 22:20 | XMS_ITS | Encounter Summary ---
:1940 Author Organization [facility] Address [address] [place] [address] Care Team Providers Name Role Phone Sherman, Aneta Rodriguez APRN C.N.P., M.S.N. Primary Care Pr ovider Encounter Details Date Type Department Care Team Description 02/06/2018 Orders Only Department of [facility] Igor Horn, Medicine, [facility] -[facility]. in [facility] [address] [place] [address] [place] [address] [phone] Social History Tobacco Use Types Packs/Day Years [...] Appointment Radiation Oncology Sue Barry M.D. [address] [place] [phone] documented as of this encounter Visit Diagnoses Not on filedocumented in this encounter Care Teams Cafe Cook Relationship Specialty Start Date End Date Aneta Whitaker APRN, C.N.P., PCP - General 06/13/18 M.S.NAntwan [address] [place] [phone] documented as of this encounter
--- OUTSIDE RECORDS SUMMARY | 2022-08-14 22:20 | XMS_ITS | Encounter Summary ---
:1940 Author Organization [facility] Address [address] [place] [address] Care Team Providers Name Role Phone Igor Horn P.A.-C. Primary Care Provider [phone] Encounter Details Date Type Department Care Team Description 08/20/2018 Clinical Communication Department of Igor Byrd, Medicine, [facility], in [address] [address] [place], [place] [phone] (Work) [phone] Social History Tobacco Use Types Packs/Day Years [...] and set up medications for trip to [place] PLAN Disposition/Recommendation: patient to schedule appointment Information: patient/caller able to repeat back in their own words Caller agreeable to plan of care: yes The following references were used: provider Igor Horn TICAL ORGANIZER Telephone Encounter - Igor Horn P.A.-C. - 08/20/2018 5:34 PM POLITICAL ORGANIZER I have never seen her so she should come and see me before she leaves for [place] TICAL ORGANIZER Telephone Encounter - Kelli Patel - 08/20/2018 2:18 PM CST Ainsley stopped by asking how to handle her med refills that will come due in September, since [place] 09[place]18 until January 2019. Please contact Ainsley to advise her at [phone]. TICAL ORGANIZER documented in this encounter Plan of Treatment Upcoming Encounters Date Type Specialty Care Team Description 08/22/2022 Clinical Communication Admitting/Central Scheduling 08/24/2022 Appointment Radiation Oncology Sue Barry M.D. [address] [place] [address] documented as of this encounter Visit Diagnoses Not on filedocumented in this encounter Care Teams Barrel Bander Relationship Specialty Start Date End Date Igor Horn P.A.-C. PCP - General 06/14/18 03/15/22 [address] [place] [address] documented as of this encounter
--- OUTSIDE RECORDS SUMMARY | 2022-08-14 22:20 | XMS_ITS | Encounter Summary ---
:1940 Author Organization [facility] Address [address] [place] [address] Care Team Providers Name Role Phone Igor Horn P.A.-C. Primary Care Provider Reason for Visit Reason Comments Asthma Outpatient (Routine) - Closed Specialty Diagnoses / Procedures Referred By Contact Refer red To Contact Allergy and Immunology Diagnoses [facility]HCC[facility] [address] [place] [address] Referral ID Status Reason Start Date Expiration Date Visits Requ ested Visits Authorized [id number] Closed 01/24/2018 07/23/2018 1 1 Encounter Details Date Type Department Care Team Description 08/19/2018 Comprehensive Visit Division of Allergic Jose Ma Asthma (HCC) Diseases in [facility] [address] [facility] [address] [place] [phone] Social History Tobacco Use Types Packs/Day Years [...] 03/16/2022 organizations such as methodist groups, unions, fraSEC Watch or athletic groups, or school groups? How [...] Comments Blood Pressure 139/69 08/19/2018 2:24 PM SPEECH LANGUAGE PATHOLOGIST Pulse 77 08/19/2018 2:24 PM SPEECH LANGUAGE PATHOLOGIST Temperature 36.6 ??C (97.9 ??F) 08/19/2018 2:24 PM SPEECH LANGUAGE PATHOLOGIST Respiratory Rate - - Oxygen Saturation - - Inhaled Oxygen Concentration - - Weight 102 kg (225 lb 8.5 oz) 08/19/2018 2:24 PM SPEECH LANGUAGE PATHOLOGIST Height 161.5 cm (5' 3.58) 08/19/2018 2:24 PM SPEECH LANGUAGE PATHOLOGIST Body Mass Index 39.22 08/19/2018 2:24 PM SPEECH LANGUAGE PATHOLOGIST documented in this encounter Consult Notes Valdemar Ma M.D. - 08/19/2018 2:30 PM CST SUBJECTIVE REASON FOR CONSULT Asthma. HISTORY OF PRESENT ILLNESS Ms. Graves is a 77-year-old female with longstanding history of asthma. She was last seen in the Division approximately a year ago. When she visited her skupinhd-ah-hnh last year, she did take the 10 [...] spending a significant amount of time in [place] this winter. She likely will be spending more time at her shosekcw-yg-eib's, up to a 14-day timeframe, and likely will come back from [place] in the February timeframe. Past medical history, [...] puff twice a day. For visiting her uhuptyfq-wg-gpz, especially for the 1st go-round when she [...] during the visit. CT CT Job ID: [id number] [place] LANGUAGE PATHOLOGIST documented in this encounter Plan of Treatment Upcoming Encounters Date Type Specialty Care Team Description 08/22/2022 Clinical Communication Admitting/Central Scheduling 08/24/2022 Appointment Radiation Oncology Sue Barry M.D. [address] [place] [address] documented as of this encounter Visit Diagnoses Diagnosis Asthma (HCC) documented in this encounter Care Teams Traffic Control Operator Relationship Specialty Start Date End Date Igor Horn P.A.-C. PCP - General 06/14/18 03/15/22 [address] [place] [address] documented as of this encounter
--- OUTSIDE RECORDS SUMMARY | 2022-08-14 22:20 | XMS_ITS | Encounter Summary ---
:1940 Author Organization [facility] Address [address] [place] [address] Care Team Providers Name Role Phone Aneta Whitaker APRN CAntwanNAntwanPAntwan, M.S.N. Primary Care Pr ovider Reason for Referral Outpatient (Routine) - Closed Specialty Diagnoses / Procedures Referred By Contact Refer red To Contact Diagnoses Pain Joint Foot Bilateral Apolonia Horn [facility] P.[facility].-CAntwan [facility], [facility] [address] [phone] [place] [phone] Phone: [phone] Referral ID Status Reason Start Date Expiration Visits Visits Date Requested Authorized [id number] Closed Patient 02/06/2018 08/05/2018 1 1 Preference Reason for Visit Reason Onset Date Comments Medicare Annual Wellness Visit 01/16/2018 Encounter Details Date Type Department Care Team Description 01/16/2018 Clinical Communication Department of Lashonda Page Annual Community Internal L, R.N. Wellness Visit Medicine in [address] [place], [place] [address] [address] [place], [place] [phone] (Work) [phone] Social History Tobacco Use Types Packs/Day Years [...] in a couple days to go to [place] for a week to visit her niece. Telephone Encounter - Lashonda Page R.N. - 01/23/2018 10:49 AM CDT Patient requesting Derm referral for Full skin exam due to history of squamous cell carcinoma (2001). She has been to [place] for this in the past, but is requesting a referral to go again. She also requests to have her Mammos done in [place]. Patient preference. Telephone Encounter - Lashonda Page R.N. - 01/23/2018 9:27 AM CDT Spoke with patient, she was seen in September for a physical with Aneta, but it was not an Annual Wellness visit. She is interested in scheduling that. We also discussed that she will need to establish care with a new PCP as Aneta is no longer going to the [facility]. Patient will think about a new PCP. She is thinking she would prefer a female provider. She is wanting to get scheduled for a Mammogram and a Dermatology appointment in [place] on or after 02/21/18, she is asking [...] Radiation Oncology Sue Barry M.D. [address] [place] [address] documented as of this encounter Results BI [...] TOMOSYNTHESIS Current study was evaluated with a VasoNovau ter Aided Detection (CAD) system. INDICATION: ??Screening [...] ASSESSMENT: BI-RADS: 1: Negative. Apolonia Horn P.A.-C. IMG BI PROCEDURES documented in this encounter Visit Diagnoses Diagnosis Malignant Neoplasm Of Forearm Squamous C ell Carcinoma Right - Primary Screening Mammogram Average Risk Patient Pain Joint Foot Bilateral Sleep Apnea Malignant Neoplasm Of Forearm Squamous C ell Carcinoma Right Screening Mammogram Average Risk Patient documented in this encounter Care Teams Beater Worker Helper Relationship Specialty Start Date End Date Whitaker, Aneta Rodriguez APRN, C.N.P., PCP - General 06/13/18 M.S.N. [address] [place] [phone] documented as of this encounter
--- OUTSIDE RECORDS SUMMARY | 2022-08-14 22:20 | XMS_ITS | Encounter Summary ---
:1940 Author Organization [facility] Address [address] [place] [address] Care Team Providers Name Role Phone Sherman, Aneta Rodriguez APRN C.N.PAntwan, M.S.N. Primary Care Pr ovider Reason for Visit Reason Comments Medicare Annual Wellness Visit Subsequent Appointment Request (Routine) - Closed Specialty Diagnoses / Procedures Referred By Contact Refer red To Contact Family Medicine Referral ID Status Reason Start Date Expiration Date Visits Requ ested Visits Authorized [id number] Closed 01/23/2018 07/22/2018 1 1 Encounter Details Date Type Department Care Team Description 02/06/2018 Nurse Only Department of Family [facility] Annual Medicine, [place] B.SBenedict, R.N. Wellness Visit Clinic, in [address] [phone] Social History Tobacco Use Types Packs/Day Years [...] aids Nose symptoms: Other: no concerns LANGUAGES: Icelandic VITALS: BP 146/86 (BP Location: Left arm, [...] of Children: 1- son who lives in [place] Special concerns reagding family members at home: [...] year?: No Home Environment note: Lives in [place] for warm months, in the cooler months lives in [place]. Has railings in homes for balance and [...] Radiation Oncology Sue Barry M.D. [address] [place] [address] documented as of this encounter Visit Diagnoses Diagnosis Annual Medicare Examination Return - [facility] documented in this encounter Care Teams Fur Trimming Machine Operator Relationship Specialty Start Date End Date Sherman, Aneta Rodriguez APRN, C.N.P., PCP - General 06/13/18 M.S.N. [address] [place] [phone] documented as of this encounter
--- OUTSIDE RECORDS SUMMARY | 2022-08-14 22:20 | XMS_ITS | Encounter Summary ---
:1940 Author Organization [facility] Address [address] [place] [address] Care Team Providers Name Role Phone Igor Horn P.A.-C. Primary Care Provider [phone] Reason for Referral Outpatient (Routine) - Closed Specialty Diagnoses / Procedures Referred By Contact Refer red To Contact Family Medicine Igor Horn P. A.-C. [facility] Region [address] [place] [phone] Referral ID Status Reason Start Date Expiration Date Visits Requ ested Visits Authorized [id number] Closed 08/25/2018 08/25/2019 1 1 CTIVE SUPERVISOR Reason for Visit Reason Comments Med Refill States annual exam is not du e until February 2019. Her prescriptions run out in Nov. She will be out of town and does not return until February. Encounter Details Date Type Department Care Team Description 08/25/2018 Office Visit Department of Paige Byrdli pidemia (Primary Dx); [place] P[place] -C. Hypothyroidism Primary; [address] Pain Knee Right; [address] [place] [address] Asthma Intrinsic (HCC); [place] [phone] Screening Examination Diabetes Mellitus; [phone] Rhinitis Allerg ic; (Work) Hypertension Essential Primary [...] Comments Blood Pressure 136/78 08/25/2018 8:48 AM DETECTIVE SUPERVISOR Pulse 83 08/25/2018 8:48 AM DETECTIVE SUPERVISOR Temperature 36.7 ??C (98.1 ??F) 08/25/2018 8:48 AM DETECTIVE SUPERVISOR Respiratory Rate 16 08/25/2018 8:48 AM DETECTIVE SUPERVISOR Oxygen Saturation 96% 08/25/2018 8:48 AM DETECTIVE SUPERVISOR Inhaled Oxygen Concentration - - Weight 101 kg (223 lb 12.3 oz) 08/25/2018 8:48 AM DETECTIVE SUPERVISOR Height - - Body Mass Index 38.91 08/19/2018 2:24 PM DETECTIVE SUPERVISOR documented in this encounter H&P Notes Igor [...] near future but she is moving to [place] for the winter and will check her [...] Asthma Intrinsic (HCC) She just saw her chief green officer in [place] for this I reviewed the note she [...] was 30 min of which 20 was sonm-ga-apum coordination of care and counseling Igor Horn P.A.-C. CTIVE SUPERVISOR documented in this encounter Plan of Treatment Upcoming Encounters Date Type Specialty Care Team Description 08/22/2022 Clinical Communication Admitting/Central Scheduling 08/24/2022 Appointment Radiation Oncology Sue Barry M.D. [address] [place] [phone] Scheduled Referrals Name Type Priority Associated Diagnoses Order S jessica Family Medicine Outpatient Referral Routine Expec michelle: office visit 02/22/2019 (clinic) (Approximate), Expires: 08/25/2021 documented as of this encounter Results S-TSH (Thyroid-Stimulating Hormone - Sensitive) (02/09/2019 8:32 AM CDT) athologist Signature TSH, Sensitive 2.5 0.3 - 4.2 02/09/2019 [facility] mIU/L 1:57 PM CDT [facility] Comment: Biotin has been identified by the lopez ruiz as a potential interfering substance. ??Higher concentr ations of biotin may be found in multivitamins, hair/nail supple ments, and workout supplements. ??If the result does not [facility] clinical observations, repeat testing after patient refrains fr om the use of supplements for at least 12 hours. Specimen Anatomical Collection Method Collection Time Receive d Time (Source) Location / / Volume Laterality Blood (Blood, 02/09/2019 8:32 AM 02/10/20 1:12 Venous) CDT PM CDT Igor Horn P.A.-C. LAB BLOOD ADD-ON Performing Organization Address City/State/ZIP Code Phon e Number [facility] [address] [place] [address] LAB (ABNORMAL) Lipid Panel (02/09/2019 8:32 AM CDT) athologist Signature Cholesterol, 166 mg/dL 02/09/2019 [facility] Total 1:57 PM CDT [facility] [place] [facility] Comment: ----REFERENCE VALUE---- Desirable: < 200 Borderline high: 200 - 239 High: > or = 240 Triglycerides 147 mg/dL 02/09/2019 1:57 PM CDT [facility] [place] [facility] Comment: ----REFERENCE VALUE---- Normal: <150 Borderline high: 150-199 High: 200-499 Very high: > or =500 Cholesterol, HDL, S 45 (L) >=50 mg/dL 02/09/2019 1:57 PM CDT [facility] [place] [facility] Calculated LDL 92 mg/dL 02/09/2019 1:57 PM CDT [facility] [place] [facility] Comment: ----REFERENCE VALUE---- Desirable: <100 Above Desirable: 100-129 Borderline high: 130-159 High: 160-189 Very high: > or =190 Cholesterol, Non-HDL, 121 mg/dL 02/09/2019 1:57 PM CDT [facility] [place] [facility] Comment: ----REFERENCE VALUE---- Desirable: <130 Above Desirable: 130-159 Borderline high: 160-189 High: 190-219 Very high: > or =220 Specimen Anatomical Collection Method Collection Time Receive d Time (Source) Location / / Volume Laterality Blood (Blood, 02/09/2019 8:32 AM 02/10/20 1:12 Venous) CDT PM CDT Igor Horn P.A.-C. LAB BLOOD ADD-ON Performing Organization Address City/State/ZIP Code Phon e Number [facility] [place] [address] [place] [address] LAB Comprehensive Metabolic Panel (02/09/2019 8:32 AM CDT) P athologist Signature Potassium, S 4.3 3.6 - 5.2 02/09/2019 [facility] mmol/L 1:[address] [facility] [place] [facility] Sodium, S 142 135 - 145 02/09/2019 [facility] mmol/L 1:57 PM CDT [facility] Chloride, S 103 98 - 107 02/09/2019 [facility] mmol/L 1:57 PM CDT [facility] Bicarbonate, S 28 22 - 29 02/09/2019 [facility] mmol/L 1:57 PM T [facility] Anion Gap 11 7 - 15 02/09/2019 [facility] 1:57 PM CDT [facility] BUN (Blood Urea 16 6 - 21 02/09/2019 [facility] Nitrogen), S mg/dL 1:57 PM CDT [facility] [place] [facility] Creatinine 0.76 0.59 - 02/09/2019 [facility] 1.04 mg/dL 1:57 PM [facility] [place] [facility] eGFR-Non 76 >=60 02/09/2019 [facility] Black/ mL/min/BSA 1:57 PM [facility] [place] [facility] Comment: ----ADDITIONAL INFORMATION---- Estimated GFR calculated using the 2009 CKD_EPI creatinine equation. eGFR-Black/ 88 >=60 mL/min/BSA 2018 1:57 PM [facility] [place] [facility] Comment: ----ADDITIONAL INFORMATION---- Estimated GFR calculated using the 2009 CKD_EPI creatinine equation. Calcium, Total, S 9.8 8.8 - 10.2 02/09/2019 1:57 PM [facility] mg/dL [facility] [place] [facility] Glucose, S 117 70 - 140 mg/dL 02/09/2019 3:19 PM [facility] [place] [facility] Protein, Total, S 7.0 6.3 - 7.9 g/dL 02/09/2019 1:57 P M [facility] [place] [facility] Albumin, S 4.1 3.5 - 5.0 g/dL 02/09/2019 1:57 PM [facility] [place] [facility] Aspartate Aminotransferase 14 8 - 43 U/L 02/09/2019 1 :57 PM [facility] S [facility] [place] [facility] Alkaline Phosphatase, S 81 35 - 104 U/L 02/09/2019 2: 12 PM [facility] [place] [facility] Alanine Aminotransferase 19 7 - 45 U/L 02/09/2019 1:5 7 PM [facility] [place] [facility] Bilirubin, Total, S 0.3 <=1.2 mg/dL 02/09/2019 1:57 PM [facility] [place] [facility] Specimen Anatomical Collection Method Collection Time Receive d Time (Source) Location / / Volume Laterality Blood (Blood, 02/09/2019 8:32 AM 02/10/20 1:12 Venous) CDT PM CDT Igor Horn P.A.-C. LAB BLOOD ADD-ON Performing Organization Address City/State/ZIP Code Phon e Number [facility] [address], [place] [address] LAB documented in this encounter Visit Diagnoses Diagnosis Hyperlipidemia - Primary Hypothyroidism Primary Pain Knee Right Asthma Intrinsic (HCC) Screening Examination Diabetes Mellitus Rhinitis Allergic Hypertension Essential Primary documented in this encounter Care Teams Research Nutritionist Relationship Specialty Start Date End Date Igor Horn P.A.-C. PCP - General 06/14/18 03/15/22 [address] [place] [phone] documented as of this encounter
--- OUTSIDE RECORDS SUMMARY | 2022-08-14 22:20 | XMS_ITS | Encounter Summary ---
:1940 Author Organization [facility] Address [address] [place] [address] Care Team Providers Name Role Phone Aneta Whitaker APRN, C.NAvtar, M.S.N. Primary Care Pr ovider Encounter Details Date Type Department Care Team Description 10/10/2017 Hospital Encounter Department of [place], Dysuria Laboratory Medicine in Aneta Rodriguez APRN, [place], [place] C.Brando, M.S.N. [address] [facility] [address] [place] [address] [place], [place] [phone] (Wo rk) Social History Tobacco Use Types [...] Oncology Sue Barry M.D. [address] [place] [address] documented as of this encounter Procedures Procedure Name Priority Date/Time Associated Comments Diagnosis URINALYSIS WITH Routine 10/10/2017 9:43 AM Result s for this MICROSCOPIC IF TILE INSPECTOR procedure are in INDICATED, U the results section. MICROSCOPIC MANUAL Routine 10/10/2017 9:43 AM Res ults for this TILE INSPECTOR procedure are i n the results section. documented in this encounter Results (ABNORMAL) Microscopic Manual (10/10/2017 9:43 AM TILE INSPECTOR) P athologist Signature White Blood 4-10 /hpf 10/10/2017 [facility] Cells 1:45 PM [facility] [place] [facility] Comment: ----REFERENCE VALUE---- Males: 0-3 Females: 0-10 Unknown: 0-10 Red Blood Cells Occ-2 0 - 2 /hpf 10/10/2017 1:45 PM [facility] [place] [facility] Bacteria Present (A) None Seen 10/10/2017 1:45 PM [facility] [place] [facility] Specimen Anatomical Collection Method Collection Time Receive d Time (Source) Location / / Volume Laterality Urine 10/10/2017 9:43 AM 8 1:39 TILE INSPECTOR PM TILE INSPECTOR Aneta Whitaker APRN C.N.P., M.S.N. LAB URINE ORDERABLES Performing Organization Address City/State/ZIP Code Phon e Number [facility]- [address] [place] [address] [facility]- [address] [place], [place] [address] [place] LAB (ABNORMAL) Urinalysis with Microscopic if Indicated (10/10/2017 9:43 AM TILE INSPECTOR) athologist Signature Source Midstream 10/10/2017 [facility] 9:51 AM [facility] Clarity Clear Clear 10/10/2017 [facility] 9:51 AM [facility] Color Yellow 10/10/2017 [facility] 9:51 AM [facility] Comment: ----REFERENCE VALUE---- Colorless Yellow [place] Blood Negative Negative 10/10/2017 9:51 AM [facility] Nitrite Negative Negative 10/10/2017 9:51 AM [facility] Leukocyte Esterase Trace (A) Negative 10/10/2017 9:51 A M [facility] [place] [facility] Protein, U Negative mg/dL 10/10/2017 9:51 AM [facility] [place] [facility] Comment: ----REFERENCE VALUE---- Negative Trace Glucose Negative Negative mg/dL 10/10/2017 9:51 AM [facility] [place] Ketones, QL(U) Negative Negative mg/dL 10/10/2017 9:51 AM [facility] [place] [facility] Bilirubin Negative Negative 10/10/2017 9:51 AM [facility] [place] pH 7.5 5.0 - 8.0 10/10/2017 9:51 AM [facility] Specific Bates 1.015 1.001 - 1.035 10/10/2017 9:51 AM [facility] LAB Urobilinogen 0.2 0.2 - 1.0 mg/dL 10/10/2017 9:51 AM [facility] Specimen Anatomical Collection Method Collection Time Receive d Time (Source) Location / / Volume Laterality Urine 10/10/2017 9:43 AM 8 9:47 TILE INSPECTOR AM TILE INSPECTOR Aneta Whitaker APRN, C.N.P., M.S.N. LAB URINE ORDERABLES Performing Organization Address City/State/ZIP Code Phon e Number [facility] [address] [place] [address] LAB documented in this encounter Visit Diagnoses Diagnosis Dysuria documented in this encounter Care Teams Terrazzo Finisher Relationship Specialty Start Date End Date Aneta Whitaker APRN C.N.P., PCP - General 06/13/18 M.S.N. [address] [place] [phone] documented as of this encounter
--- OUTSIDE RECORDS SUMMARY | 2022-08-14 22:20 | XMS_ITS | Encounter Summary ---
:1940 Author Organization [facility] Address [address] [place] [address] Care Team Providers Name Role Phone Igor Horn P.A.-C. Primary Care Provider [phone] Encounter Details Date Type Department Care Team Description 12/25/2018 Clinical Communication Department of Igor Byrd, Medicine, Exchange Shiv[facility], in [address] [facility] [address] [place], [place] [phone] (Work) [phone] Social History Tobacco Use Types Packs/Day Years [...] of the More than 4 times [facility] year 03/16/2022 clubs or organizations you [...] will check thru the portal, please add [place] number in message Name of Medication (if relevant): na documented in this encounter Plan of Treatment Upcoming Encounters Date Type Specialty Care Team Description 08/22/2022 Clinical Communication Admitting/Central Scheduling 08/24/2022 Appointment Radiation Oncology Sue Barry M.D. [address] [place] [address] documented as of this encounter Visit Diagnoses Diagnosis Screening Mammogram Breast Cancer - Prim haroldo documented in this encounter Care Teams Vp Of Marketing Relationship Specialty Start Date End Date Igor Horn P.A.-C. PCP - General 06/14/18 03/15/22 [address] [place] [address] documented as of this encounter
--- OUTSIDE RECORDS SUMMARY | 2022-08-14 22:20 | XMS_ITS | Encounter Summary ---
:1940 Author Organization [facility] Address [address] [place] [address] Care Team Providers Name Role Phone Igor Horn P.A.-C. Primary Care Provider [phone] Encounter Details Date Type Department Care Team Description 08/20/2018 Orders Only Department of [facility] Igor Horn, Medicine, [facility], PNeda Jones in [facility] [address] [place] [address] [place] [address] [phone] Social History Tobacco Use Types Packs/Day Years [...] the More than 4 times [facility] year 03/16/2022 clubs or organizations [...] Radiation Oncology Sue Barry M.D. [address] [place] [address] documented as of this encounter Visit Diagnoses Not on filedocumented in this encounter Care Teams Crm Marketing Executive Relationship Specialty Start Date End Date Igor Horn P.A.-C. PCP - General 06/14/18 03/15/22 [address] [place] [address] documented as of this encounter
--- OUTSIDE RECORDS SUMMARY | 2022-08-14 22:20 | XMS_ITS | Encounter Summary ---
:1940 Author Organization [facility] Address [address] [place] [address] Care Team Providers Name Role Phone Aneta Whitaker APRN, C.N.P., M.S.N. Primary Care Pr ovider Reason for Visit Reason Comments Communication Encounter Details Date Type Department Care Team Description 01/17/2018 Clinical Communication Department of Family Cristóbal suarez Communication MedicineUlices APRN, Clinic, in Renée Elena, M.S .N. [place] [address] [address] [facility] [address] [place] [phone] Social History Tobacco Use Types Packs/Day [...] Radiation Oncology Sue Barry M.D. [address] [place] [address] documented as of this encounter Visit Diagnoses Not on filedocumented in this encounter Care Teams Warrant Clerk Relationship Specialty Start Date End Date Aneta Whitaker APRN, C.N.P., PCP - General 06/13/18 M.S.N. [address] [place] [address] documented as of this encounter
--- OUTSIDE RECORDS SUMMARY | 2022-08-14 22:20 | XMS_ITS | Encounter Summary ---
:1940 Author Organization [facility] Address [address] [place] [address] Care Team Providers Name Role Phone Aneta Whitaker APRN, C.N.P., M.S.N. Primary Care Pr ovider Reason for Visit Reason Comments Med Refill Encounter Details Date Type Department Care Team Description 11/05/2017 Refill Department of Family Medicine Aneta Whitaker, Med Refill in [place], [place] Renée BNYUM, M.S.N. [address] [facility] [address] [place] [address] [place] [address] [phone] (Wo rk) Social History Tobacco Use Types [...] Radiation Oncology Sue Barry M.D. [address] [place] [address] documented as of this encounter Visit Diagnoses Not on filedocumented in this encounter Care Teams Catering Convention Services Manager Relationship Specialty Start Date End Date Whitaker, Aneta Rodriguez APRN, C.N.P., PCP - General 06/13/18 M.S.N. [address] [place] [address] documented as of this encounter
--- OUTSIDE RECORDS SUMMARY | 2022-08-14 22:20 | XMS_ITS | Encounter Summary ---
:1940 Author Organization [facility] Address [address] [place] [address] Care Team Providers Name Role Phone Igor Horn P.A.-C. Primary Care Provider [phone] Encounter Details Date Type Department Care Team Description 07/28/2018 Nurse Only Department of Family Medicine Francesco De Jesus, [place], [place] L.P.N. [address] [facility] [address], [place] [address] [place], [place] [phone] Social History Tobacco Use Types Packs/Day [...] Radiation Oncology Sue Barry M.D. [address] [place] [address] documented as of this encounter Visit Diagnoses Not on filedocumented in this encounter Care Teams Store Hand Relationship Specialty Start Date End Date Igor Horn P.A.-C. PCP - General 06/14/18 03/15/22 [address] [place] [phone] documented as of this encounter
--- OUTSIDE RECORDS SUMMARY | 2022-08-14 22:20 | XMS_ITS | Encounter Summary ---
:1940 Author Organization [facility] Address [address] [place] [address] Care Team Providers Name Role Phone Igor Horn P.A.-C. Primary Care Provider [phone] Reason for Visit Reason Onset Date Comments Asthma flare update 10/31/2018 Encounter Details Date Type Department Care Team Description 10/31/2018 Clinical Communication Division of Arnulfo Ma flare update Allergic Diseases Valdemar Olivo M.D. in [address] [place] [address] [place], [place] [phone] (Work) [phone] Social History Tobacco Use Types Packs/Day Years [...] meetings of the More than 4 times [facility] year 03/16/2022 clubs or organizations you [...] following references were used: provider Dr. Ma TION MANAGER Telephone Encounter - Valdemar Ma M.D. - 10/31/2018 3:54 PM ADOPTION MANAGER Cale Parrish, Notes reviewed. Would recommend continuing the prednisone 5mg twice a day for the next 3 days, Then if doing well, can decrease to 5mg once a day for three days, then can stop. Thanks, Dr. Ma TION MANAGER Telephone Encounter - Jodie Shaw R.N. - [...] that Dr. Ma is not at the [facility] today. Ainsley is seeking his recommendations prior to the upcoming weekend. TION MANAGER Telephone Encounter - Karina Perdomo - 10/31/2018 9:51 AM CST Calling with update on asthma flare. Need further guidance for the weekend. TION MANAGER documented in this encounter Plan of Treatment Upcoming Encounters Date Type Specialty Care Team Description 08/22/2022 Clinical Communication Admitting/Central Scheduling 08/24/2022 Appointment Radiation Oncology Sue Barry M.D. [address] [place] [phone] documented as of this encounter Visit Diagnoses Not on filedocumented in this encounter Care Teams Eyeglass Lens Grinder Relationship Specialty Start Date End Date Igor Horn P.A.-C. PCP - General 06/14/18 03/15/22 [address] [place] [address] documented as of this encounter
--- OUTSIDE RECORDS SUMMARY | 2022-08-14 22:20 | XMS_ITS | Encounter Summary ---
:1940 Author Organization [facility] Address [address] [place] [address] Care Team Providers Name Role Phone [place], Aneta Rodriguez APRN C.N.PAntwan, M.S.N. Primary Care Pr ovider Encounter Details Date Type Department Care Team Description 02/24/2018 Hospital Encounter Department of Mariama Horn Neoplasm Of Forearm Squamous Cell Carcinoma Right; Radiology in Shivam Costa Screening Mammogram Average Risk Patient [place], [place] [address] [place] [address] [phone] Social History Tobacco Use Types Packs/Day Years [...] Appointment Radiation Oncology Sue Barry M.D. [address] [place] [phone] documented as of this encounter Procedures Procedure [...] Patient documented in this encounter Care Teams Flute Polisher Relationship Specialty Start Date End Date Whitaker, Aneta Rodriguez APRN, C.N.P., PCP - General 06/13/18 M.S.N. [address] [place] [phone] documented as of this encounter
--- OUTSIDE RECORDS SUMMARY | 2022-08-14 22:21 | XMS_ITS | Encounter Summary ---
:1940 Author Organization [facility] Address [address] [place] [address] Care Team Providers Name Role Phone Unavailable Primary Care Provider Unavailable Encounter Details Date Type Department Care Team Description 10/16/2016 Hospital Encounter HX [facility] Delbert Whitaker APRN, C.N.P., M.S.N. [address] [place] [address] (Wo rk) Social History Tobacco Use Types [...] Comments Blood Pressure 138/68 10/16/2016 2:24 PM WHITE WORK CLEANER Pulse 68 10/16/2016 2:24 PM WHITE WORK CLEANER Temperature - - Respiratory Rate 16 10/16/2016 2:24 PM WHITE WORK CLEANER Oxygen Saturation - - Inhaled Oxygen Concentration - - Weight 96.9 kg (213 lb 10 oz) 10/16/2016 2:24 PM WHITE WORK CLEANER Height - - Body Mass Index 37.52 09/21/2016 10:28 AM WHITE WORK CLEANER documented in this encounter Medications at Time [...] encounter Progress Notes [place], Delbert Rodriguez APRN, COMPUTERIZED TABLE CUTTER - 10/16/2016 2:01 PM CST [id number] CHIEF COMPLAINT/REASON FOR VISIT Right ingrown toenail [...] WHITAKER CNP On: 10/29/2016 05:17 PM Source: [facility] MHSDOLRAYMOND Document Id: [id number] E WORK CLEANER documented in this encounter Miscellaneous Notes Miscellaneous - Joshua Rubin L.P.N. - 10/16/2016 2:24 PM CST Adult Embedded Software Development Engineer Intake/History Adult Embedded Software Development Engineer Intake/History Entered On: 10/16/2016 14:27 WHITE WORK CLEANER Performed On: 10/16/2016 14:24 WHITE WORK CLEANER by JOSHUA RUBIN LPN Intake Chief Complaint [...] kg JOSHUA RUBIN LPN - 10/16/2016 14:24 WHITE WORK CLEANER General Info Information Given By : Patient Preferred Communication Mode : Verbal Languages : Tajik Is Patient Female and 13-50 no hysterectomy : No JOSHUA RUBIN LPN - 10/16/2016 14:24 WHITE WORK CLEANER Subjective Pain Symptoms : No (Comment: states yes when she bumps it. [JOSHUA RUBIN LPN - 10/16/2016 14:24 WHITE WORK CLEANER] ) JOSHUA RUBIN LPN - 10/16/2016 14:24 WHITE WORK CLEANER Dependent Habits Exposure to Tobacco Smoke : Other: Never Smoked Smoking Status : Never smoker Tobacco 2A : No Tobacco Use/Currently Using : No Tobacco Use/Last 30 Days : No Tobacco Use/Last 12 months : No Alcohol Use : No JOSHUA RUBIN LPN - 10/16/2016 14:24 WHITE WORK CLEANER Caffeine Use Grid Caffeine Use : Current Type : Soft drinks Frequency : Daily Amount : 1 can diet soda Last Use : 10/16/2016 JOSHUA RUBIN LPN - 10/16/2016 14:24 WHITE WORK CLEANER Recreational Drug Use Grid Drug Use : None JOSHUA RUBIN LPN - 10/16/2016 14:24 WHITE WORK CLEANER Source: [facility] POWERCHART Document Id: [id number] WHITE WORK CLEANER!39 E WORK CLEANER documented in this encounter Plan of Treatment Upcoming Encounters Date Type Specialty Care Team Description 08/22/2022 Clinical Communication Admitting/Central Scheduling 08/24/2022 Appointment Radiation Oncology Sue Barry M.D. [address] [place] [phone] documented as of this encounter Visit Diagnoses Not on filedocumented in this encounter
--- OUTSIDE RECORDS SUMMARY | 2022-08-14 22:21 | XMS_ITS | Encounter Summary ---
:1940 Author Organization [facility] Address [address] [place] [address] Care Team Providers Name Role Phone Unavailable Primary Care Provider Unavailable Encounter Details Date Type Department Care Team Description 10/16/2016 Hospital Encounter [facility]X [facility] Whitaker, Cecily Rodriguez, MISA, C.N.P., M. S.N. [address] [place], [place] [phone] (Wo rk) Social History [...] Miscellaneous Notes Miscellaneous - Delbert Whitaker APRN, CEMENTER MACHINE - 10/19/2016 8:53 AM COUNTY PROGRAM TECHNICIAN Normal Results Letter October 19, 2016 ELISE AGUAYO [address] [place] [address] [id number] Dear ELISE AGUAYO, I am pleased to [...] 09/13/2016 None Seen - Sincerely, DELBERT WHITAKER [address] [place] [id number] Electronic Signature Electronically Signed By: DELBERT WHITAKER CNP On: October 19, 2016 This document has images extracted. Source: [facility] POWERCHART Document Id: [id number] Electronically signed by Conversion, [facility] Personnel Representative [id number] at 03/18/2017 9:35 PM CDT documented in this encounter Plan of Treatment Upcoming Encounters Date Type Specialty Care Team Description 08/22/2022 Clinical Communication Admitting/Central Scheduling 08/24/2022 Appointment Radiation Oncology Sue Barry M.D. [address] [place] [address] documented as of this encounter Procedures Procedure Name Priority Date/Time Associated Diagnosis Comme nts URINALYSIS, Routine 10/16/2016 4:17 PM Results f or this MIDSTREAM, WITH COUNTY PROGRAM TECHNICIAN procedure ar e in CULTURE IF the results INDICATED section. documented in this encounter Results (ABNORMAL) Urinalysis, Midstream, with culture if indicated (10/16/2016 4:17 PM COUNTY PROGRAM TECHNICIAN) [facility] Method Time Signature HXUR WBC. Occ-3 None Seen HPF POWERCHART HXUR RBC. Occ-2 None Seen HPF POWERCHART Squamous Occ-3 (A) None Seen HPF POWERCHART Epithelial HXUr Color Yellow Colorless POWERCHART Clarity Clear Clear POWERCHART Glucose Negative Negative MGDL POWERCHART HXBILIRUBIN Negative Negative POWERCHART Ketones, QL(U) Negative Negative MGDL POWERCHART Specific 1.015 POWERCHART [place], POCT, U Comment: Reference Range Specific [place]: 1.000-1.035 HXBLOOD Trace (A) Negative POWERCHART pH, [...] Laterality Urine, First 10/16/2016 4:17 PM Voided COUNTY PROGRAM TECHNICIAN Delbert Whitaker APRN C.N.P., M.S.N. LAB URINE ORDERABLES Performing Organization Address City/State/ZIP Code Phon e Number POWERCHART documented in this encounter Visit Diagnoses Not on filedocumented in this encounter
--- OUTSIDE RECORDS SUMMARY | 2022-08-14 22:21 | XMS_ITS | Encounter Summary ---
:[address] [facility] Address [address] [place] [address] Care Team Providers Name Role Phone Unavailable Primary Care Provider Unavailable Encounter Details Date Type Department Care Team Description 10/18/2015 Hospital Encounter HX [facility] FAMILYPRA Delbert Whitaker APRN, C.N.P., M.S.N. [address] [place] [address] (Wo rk) Social History Tobacco Use Types [...] Comments Blood Pressure 134/74 10/18/2015 9:45 AM JOB SETTER Pulse 81 10/18/2015 9:45 AM JOB SETTER Temperature - - Respiratory Rate 16 10/18/2015 9:45 AM JOB SETTER Oxygen Saturation - - Inhaled Oxygen Concentration - - Weight 97.5 kg (214 lb 15.2 oz) 10/18/2015 9:45 AM JOB SETTER Height - - Body Mass Index 37.24 09/20/2015 8:29 AM JOB SETTER documented in this encounter Medications at Time [...] this encounter Progress Notes Delbert Whitaker APRN, HAND SAMPLE MAKER - 10/18/2015 9:26 AM CST [id number] CHIEF COMPLAINT/REASON FOR VISIT Follow up on labs. HISTORY OF PRESENT ILLNESS A very pleasant 74-year-old female presents for followup on lab work. Patient, on 09/20, had annual lab work collected for review. The patient does have history of asthma. Said she has been having someasthma related issues, chest congestion and head cold, and states that she does see [facility] for her asthma and allergy and [...] understanding. [facility] States she knows she needs to lose weight and will help all of her issues, her high cholesterol and will help with potential for diabetes and her knee pain. 2. Hyperthyroidism. TSH within normal limits. Will check lab values again in March. Patient going to [place] for a few months next month. 3. [...] WHITAKER CNP On: 10/19/2015 07:45 AM Source: [facility] MHSDOLBEYNONRADSYS Document Id: [id number] SETTER documented in this encounter Nursing Notes Joshua Rubin L.PAntwanN. - 12/05/2015 4:13 PM CST Prior authorization request pravastatin Document Contains Addenda Addendum by JOSHUA RUBIN LPN on December 12, 2015 10:14 JOB SETTER Prior authorization approved. from 10/07/2015 through 12/06/2016. Will alert pharmacy. Modified by and Electronically Signed by: JOSHUA RUBIN LPN On: 12/12/2015 10:14 AM Prior authorization request for Pravastatin completed through Cover My Meds,[place] [id number]. Time spent on form 20 minutes. Electronically Signed By: JOSHUA RUBIN LPN On: 12/05/2015 04:14 PM Source: [employer] Document Id: [id number] SETTER documented in this encounter Miscellaneous Notes Miscellaneous - Conversion, Historical Provider Ser - 03/12/2016 9:13 AM CDT [facility] March 12, 2016 Re: ELISE AMBROSEBobbiGARCIA 1940 MR# [id number] Date of Visit 10/18/2015 [facility] - Dr. Eliazar Elizalde, To [...] treatment of this patient. Sincerely, Delbert Whitaker HAND SAMPLE MAKER This document has images extracted. Source: [facility] Document Id: [id number] Miscellaneous - Joshua Rubin L.P.N. - 10/18/2015 9:45 AM CST Adult Assistant Operator Intake/History Adult Assistant Operator Intake/History Entered On: 10/18/2015 9:47 JOB SETTER Performed On: 10/18/2015 9:45 JOB SETTER by ERICHSEN, DWYN E DIRECTOR PRISON Intake Chief Complaint : Lab results Temperature [...] kg JOSHUA RUBIN LPN - 10/18/2015 9:45 JOB SETTER General Info Information Given By : Patient Preferred Communication Mode : Verbal Languages : Swedish Is Patient Female and 13-50 no hysterectomy : No JOSHUA RUBIN LPN - 10/18/2015 9:45 JOB SETTER Subjective Pain Symptoms : JOSHUA Gautam LPN - 10/18/2015 9:45 JOB SETTER Dependent Habits Exposure to Tobacco Smoke : Other: Never Smoked Smoking Status : Never smoker Tobacco 2A : No Tobacco Use/Currently Using : No Tobacco Use/Last 30 Days : No Tobacco Use/Last 12 months : No Alcohol Use : Yes JOSHUA RUBIN LPN - 10/18/2015 9:45 JOB SETTER Caffeine Use Grid Caffeine Use : Current Type : Soft drinks Frequency : Daily Amount : 1 can diet soda Last Use : 10/18/14 JOSHUA RUBIN LPN - 10/18/2015 9:45 JOB SETTER Recreational Drug Use Grid Drug Use : None JOSHUA RUBIN LPN - 10/18/2015 9:45 JOB SETTER Source: [facility] POWERCHART Document Id: [id number] JOB SETTER!41 SETTER documented in this encounter Plan of Treatment Upcoming Encounters Date Type Specialty Care Team Description 08/22/2022 Clinical Communication Admitting/Central Scheduling 08/24/2022 Appointment Radiation Oncology Sue Barry M.D. [address] [place] [address] documented as of this encounter Visit Diagnoses Not on filedocumented in this encounter Additional Health Concerns Assessment Noted Time PHQ-9 Depression Total Score: 1 09/20/2015 8:43 AM JOB SETTER documented as of this encounter
--- OUTSIDE RECORDS SUMMARY | 2022-08-14 22:21 | XMS_ITS | Encounter Summary ---
:1940 Author Organization [facility] Address [address] [place] [address] Care Team Providers Name Role Phone Aneta Whitaker APRN C.N.PAntwan, M.S.N. Primary Care Pr ovider Encounter Details Date Type Department Care Team Description 09/24/2017 Abstract Department of Family Medicine, Provider, Historical [facility], in [place], [place] [address] [place], [place] [phone] Social History Tobacco Use Types Packs/Day [...] Appointment Radiation Oncology Sue Barry M.D. [address] [place] [phone] documented as of this encounter Visit Diagnoses Not on filedocumented in this encounter Care Teams Visitor Services Assistant Relationship Specialty Start Date End Date Aneta Whitaker APRN, C.N.P., PCP - General 06/13/18 M.S.N. [address] [place] [phone] documented as of this encounter
--- OUTSIDE RECORDS SUMMARY | 2022-08-14 22:21 | XMS_ITS | Encounter Summary ---
:1940 Author Organization [facility] Address [address] [place] [address] Care Team Providers Name Role Phone Unavailable Primary Care Provider Unavailable Encounter Details Date Type Department Care Team Description 09/21/2016 Hospital Encounter [facility]X [facility] FAMILYPRA Aneta Whitaker APRN, C.N.P., M.S.N. [address] [place] [address] (Wo rk) Social History Tobacco Use Types [...] Comments Blood Pressure 126/70 09/21/2016 10:28 AM PET CARE ASSOCIATE Pulse 74 09/21/2016 10:28 AM PET CARE ASSOCIATE Temperature - - Respiratory Rate 16 09/21/2016 10:28 AM PET CARE ASSOCIATE Oxygen Saturation - - Inhaled Oxygen Concentration - - Weight 95.8 kg (211 lb 3.2 oz) 09/21/2016 10:28 AM PET CARE ASSOCIATE Height 160.7 cm (5' 3.27) 09/21/2016 10:28 AM PET CARE ASSOCIATE Body Mass Index 37.1 09/21/2016 10:28 AM PET CARE ASSOCIATE documented in this encounter Medications at Time [...] as of this encounter H&P Notes Sherman, Aneta Rodriguez, MISA, COMMUNITY OUTREACH SPECIALIST - 09/21/2016 10:18 AM CST [id number] CHIEF COMPLAINT/REASON FOR VISIT Annual physical exam. [...] IMPRESSION/REPORT/PLAN 1. Health maintenance. Mammogram ordered for Arnold. Patient is going to [place]. Will have this done in February. Encouraged [...] has cleared. Jose Diaz.P,-C./tello Electronically Signed By: ANETA WHITAKER CNP On: 10/16/2016 11:05 AM Source: [facility] MHSDOLHUESYS Document Id: [id number] CARE ASSOCIATE documented in this encounter Miscellaneous Notes Miscellaneous - Stephen Rubin L.P.N. - 09/21/2016 10:28 AM CST Adult Clinical Program Director Intake/History Adult Clinical Program Director Intake/History Entered On: 09/21/2016 10:30 PET CARE ASSOCIATE Performed On: 09/21/2016 10:28 PET CARE ASSOCIATE by STEPHEN RUBIN LPN Intake Chief Complaint : Annual [...] 2.07 Body Mass Index : 37.1 kg/m2 STEPHEN RUBIN LPN - 09/21/2016 10:28 PET CARE ASSOCIATE General Info Information Given By : Patient Preferred Communication Mode : Verbal Languages : Salvadorean Is Patient Female and 13-50 no hysterectomy : No STEPHEN RUBIN LPN - 09/21/2016 10:28 PET CARE ASSOCIATE Subjective Pain Symptoms : No STEPHEN RUBIN LPN - 09/21/2016 10:28 PET CARE ASSOCIATE Dependent Habits Exposure to Tobacco Smoke : Other: Never Smoked Smoking Status : Never smoker Tobacco 2A : No Tobacco Use/Currently Using : No Tobacco Use/Last 30 Days : No Tobacco Use/Last 12 months : No Alcohol Use : Yes STEPHEN RUBIN LPN - 09/21/2016 10:28 PET CARE ASSOCIATE Caffeine Use Grid Caffeine Use : Current Type : Soft drinks Frequency : Daily Amount : 1 can diet soda Last Use : 09/21/16 STEPHEN RUBIN LPN - 09/21/2016 10:28 PET CARE ASSOCIATE Recreational Drug Use Grid Drug Use : None STEPHEN RUBIN LPN - 09/21/2016 10:28 PET CARE ASSOCIATE Source: [facility] POWERCHART Document Id: [id number] PET CARE ASSOCIATE!42 CARE ASSOCIATE Miscellaneous - Stephen Rubin L.P.NAntwan - 09/21/2016 10:28 AM CST Health Assessment Health Assessment Entered On: 09/21/2016 10:31 PET CARE ASSOCIATE Performed On: 09/21/2016 10:28 PET CARE ASSOCIATE by STEPHEN RUBIN LPN Health Assessment Complete Health Assessment Complete or Modified : Annual Health Assessment Annual Health Assessment Completed : Yes STEPHEN RUBIN LPN - 09/21/2016 10:28 PET CARE ASSOCIATE Nutrition Nutrition Risk Factors by History Adult : None STEPHEN RUBIN LPN - 09/21/2016 10:28 PET CARE ASSOCIATE Functional Current Daily Living Assistance : None Mobility Assistance Prior to Admission : Independent STEPHEN RUBIN LPN - 09/21/2016 10:28 PET CARE ASSOCIATE Dependent Habits Exposure to Tobacco Smoke : Other: Never Smoked Smoking Status : Never smoker Tobacco 2A : No Tobacco Use/Currently Using : No Tobacco Use/Last 30 Days : No Tobacco Use/Last 12 months : No Alcohol Use : Yes STEPHEN RUBIN LPN - 09/21/2016 10:28 PET CARE ASSOCIATE Caffeine Use Grid Caffeine Use : Current Type : Soft drinks Frequency : Daily Amount : 1 can diet soda Last Use : 09/21/16 STEPHEN RUBIN LPN - 09/21/2016 10:28 PET CARE ASSOCIATE Recreational Drug Use Grid Drug Use : None STEPHEN RUBIN LPN - 09/21/2016 10:28 PET CARE ASSOCIATE AUDIT Tool How Often Do You Have A Drink : Monthly or less How Many Drinks in a Day When Drinking : 1 or 2 Six or More Drinks On One Occassion : Never Audit Phase 1 Score : 1 STEPHEN RUBIN LPN - 09/21/2016 10:28 PET CARE ASSOCIATE Psychosocial Domestic Abuse Concerns : None Marital Status : Number of Children : 1 Behavioral Health Screen/Safety Assmt : No Sikhism Preference : STEPHEN Castellanos LPN - 09/21/2016 10:28 PET CARE ASSOCIATE Advance Directive Advanced Directives : No Advance Directive Additional Information : No STEPHEN RUBIN LPN - 09/21/2016 10:28 PET CARE ASSOCIATE Educ Needs Learning Style Preference Adult Grid Patient : Printed materials, Verbal explanation Family : Printed materials, Verbal explanation STEPHEN RUBIN LPN - 09/21/2016 10:28 PET CARE ASSOCIATE Source: [facility] [employer] Document Id: [id number] PET CARE ASSOCIATE!45 CARE ASSOCIATE documented in this encounter Plan of Treatment Upcoming Encounters Date Type Specialty Care Team Description 08/22/2022 Clinical Communication Admitting/Central Scheduling 08/24/2022 Appointment Radiation Oncology Sue Barry M.D. [address] [place] [phone] documented as of this encounter Visit Diagnoses Not on filedocumented in this encounter
--- OUTSIDE RECORDS SUMMARY | 2022-08-14 22:21 | XMS_ITS | Encounter Summary ---
:1940 Author Organization [facility] Address [address] [place] [address] Care Team Providers Name Role Phone Unavailable Primary Care Provider Unavailable Encounter Details Date Type Department Care Team Description 09/20/2015 Hospital Encounter HX NO MAPPING Aneta Whitaker APRN, C.N.P., M. S.N. [address] [place], [place] [phone] (Wo rk) Social History [...] Historical Provider Ser - 09/20/2015 11:59 PM CONCRETE LAYER Coding Summary-Paper Based CODING DATE: 10/06/2015 FINAL [facility] STATUS: * Discharged to Home or Self [...] VIZCARRA Date Saved: 10/06/2015 02:57 pm Source: [facility] POWERCH[facility] Document Id: [id number] documented in this encounter Plan of Treatment Upcoming Encounters Date Type Specialty Care Team Description 08/22/2022 Clinical Communication Admitting/Central Scheduling 08/24/2022 Appointment Radiation Oncology Sue Barry M.D. [address] [place] [address] documented as of this encounter Visit Diagnoses Not on filedocumented in this encounter Additional Health Concerns Assessment Noted Time PHQ-9 Depression Total Score: 1 09/20/2015 8:43 AM CONCRETE LAYER documented as of this encounter
--- OUTSIDE RECORDS SUMMARY | 2022-08-14 22:21 | XMS_ITS | Encounter Summary ---
:1940 Author Organization [facility] Address [address] [place] [address] Care Team Providers Name Role Phone Unavailable Primary Care Provider Unavailable Encounter Details Date Type Department Care Team Description 07/01/2015 Hospital Encounter HX NO MAPPING Aneta Whitaker APRN, C.N.P., M. S.N. [address] [place], [place] [phone] (Wo rk) Social History [...] Coding Summary-Paper Based CODING DATE: 07/12/2015 FINAL [facility] STATUS: * Discharged to Home [...] VIZCARRA Date Saved: 07/12/2015 01:20 pm Source: [facility] Document Id: [id number] documented in this encounter Plan of Treatment Upcoming Encounters Date Type Specialty Care Team Description 08/22/2022 Clinical Communication Admitting/Central Scheduling 08/24/2022 Appointment Radiation Oncology Sue Barry M.D. [address] [place] [address] documented as of this encounter Visit Diagnoses Not on filedocumented in this encounter Additional Health Concerns Assessment Noted Time PHQ-9 Depression Total Score: 5 07/01/2015 8:48 AM CDT documented as of this encounter
--- OUTSIDE RECORDS SUMMARY | 2022-08-14 22:21 | XMS_ITS | Encounter Summary ---
:1940 Author Organization [facility] Address [address] [place] [address] Care Team Providers Name Role Phone Unavailable Primary Care Provider Unavailable Encounter Details Date Type Department Care Team Description 10/24/2015 Hospital Encounter HX [facility] FB Luca Orona APRN, C.N.P., M. S.N. [address] [place], [place] [phone] (Wo rk) Social History [...] Radiation Oncology Sue Barry M.D. [address] [place] [address] documented as of this encounter Procedures Procedure Name Priority Date/Time Associated Diagnosis Comme nts DX CHEST AP OR PA Routine 10/24/2015 9:54 AM Resu lts for this AND LATERAL 2 VIEWS GROUNDS AND NURSERY SPECIALIST procedur e are in the results section. documented in this encounter Results DX Chest Anterior Posterior or Posterior Anterior and Lateral 2 Views (10/24/2015 9:54 AM GROUNDS AND NURSERY SPECIALIST) Anatomical Region Laterality Modality Chest N/A Radiographic Imaging Specimen (Source) Anatomical Collection Method Collection Time Re ceived Time Location / / Volume Laterality 10/24/2015 9:54 AM GROUNDS AND NURSERY SPECIALIST Addenda Addendum by Provider, Cristiana Marino 10/24/2015 9:54 AM GROUNDS AND NURSERY SPECIALIST RAD^^^OW XR Chest 2 Views 10/24/2015 09:54:36 Impressions 10/24/2015 10:32 AM GROUNDS AND NURSERY SPECIALIST No change. No focal consolidation or pleural effusion. Cardiac silhouette and pulmonary vascula rity are within the limits of normal. Narrative 10/24/2015 10:32 AM GROUNDS AND NURSERY SPECIALIST EXAM: XR Chest 2 Views INDICATION: Hx lung Ca COMPARISON: 10/15/2014 Procedure Note Bernardino Lay M.D. / Provider, Zaire phillips M.D. - 02/08/2017 EXAM: XR Chest 2 Views INDICATION: Hx lung Ca COMPARISON: 10/15/2014 IMPRESSION: No change. No focal consolid ation or pleural effusion. Cardiac silhouette and pulmonary vascula rity are within the limits of normal. Chery Farmer(R), RAntwanTAntwan(R)(M) IMG DIAGNOSTIC IMAG ING PROCEDURES documented in this encounter Visit Diagnoses Not on filedocumented in this encounter Additional Health Concerns Assessment Noted Time PHQ-9 Depression Total Score: 1 09/20/2015 8:43 AM GROUNDS AND NURSERY SPECIALIST documented as of this encounter
--- OUTSIDE RECORDS SUMMARY | 2022-08-14 22:21 | XMS_ITS | Encounter Summary ---
:1940 Author Organization [facility] Address [address] [place] [address] Care Team Providers Name Role Phone Unavailable Primary Care Provider Unavailable Encounter Details Date Type Department Care Team Description 09/13/2016 Hospital Encounter HX NO MAPPING Jasmeet Cardenas M.D. [address] [place], [place] [address] Social History Tobacco Use Types [...] Appointment Radiation Oncology Sue Barry M.D. [address] [place] [address] documented as of this encounter Visit Diagnoses Not on filedocumented in this encounter
--- OUTSIDE RECORDS SUMMARY | 2022-08-14 22:21 | XMS_ITS | Encounter Summary ---
:1940 Author Organization [facility] Address [address] [place] [address] Care Team Providers Name Role Phone Aneta Whitaker APRN, C.N.Lizabeth, M.S.N. Primary Care Pr ovider Reason for Visit Reason Comments Annual Exam would like medications renew ed going out of town please refill all Appointment Request (Routine) - Closed Specialty Diagnoses / Procedures Referred By Contact Refer red To Contact Family Medicine Whitaker, Aneta Rodriguez APRN, C.N.P., M.S.N. [address] [place] [phone] Referral ID Status Reason Start Date Expiration Date Visits Requ ested Visits Authorized [id number] Closed 08/22/2017 02/18/2018 1 1 Encounter Details Date Type Department Care Team Description 10/04/2017 Comprehensive Visit Department of [place], [facility] Family Medicine in [place] on Adult [place], [place] Abelardo BYNUM.N.PAntwan, (Primary Dx) [address] [facility] M.S.N. [place], [place] [address] [facility] [address] [place], [place] [phone] Social History Tobacco Use Types Packs/Day [...] 03/16/2022 organizations such as spiritism groups, unions, fraMutual Aid Labs or athletic groups, or school groups? [...] Comments Blood Pressure 132/70 10/04/2017 10:56 AM SATIN FINISHER Pulse 78 10/04/2017 10:56 AM SATIN FINISHER Temperature 36.4 ??C (97.5 ??F) 10/04/2017 10:56 AM SATIN FINISHER Respiratory Rate 16 10/04/2017 10:56 AM SATIN FINISHER Oxygen Saturation 97% 10/04/2017 10:56 AM SATIN FINISHER Inhaled Oxygen Concentration - - Weight 96.3 kg (212 lb 4.9 oz) 10/04/2017 10:56 AM SATIN FINISHER Height 160.8 cm (5' 3.31) 10/04/2017 10:56 AM SATIN FINISHER Body Mass Index 37.24 10/04/2017 10:56 AM SATIN FINISHER documented in this encounter H&P Notes Sherman, Aneta Rodriguez, REVIEWER SALES, FIELD SUPPORT REP - 10/04/2017 11:00 AM CST SUBJECTIVE CHIEF COMPLAINT / REASON FOR VISIT Ainsley Cedeño is a 76 y.o. female who presents annual health maintenance exam. Patient lives half the year in [place] and half the year here in [place]. [...] concern or problem. She voiced good understanding. N FINISHER documented in this encounter Plan of Treatment Upcoming Encounters Date Type Specialty Care Team Description 08/22/2022 Clinical Communication Admitting/Central Scheduling 08/24/2022 Appointment Radiation Oncology Sue Barry M.D. [address] [place] [phone] documented as of this encounter Visit Diagnoses Diagnosis Health Maintenance Examination Adult - P rimary documented in this encounter Care Teams Filenet Developer Relationship Specialty Start Date End Date Sherman, Aneta Rodriguez APRN, C.N.P., PCP - General 06/13/18 M.S.N. [address] [place] [phone] documented as of this encounter
--- OUTSIDE RECORDS SUMMARY | 2022-08-14 22:21 | XMS_ITS | Encounter Summary ---
:1940 Author Organization [facility] Address [address] [place] [address] Care Team Providers Name Role Phone Unavailable Primary Care Provider Unavailable Encounter Details Date Type Department Care Team Description 09/13/2016 Hospital Encounter HX NO MAPPING Aneta Whitaker APRN, C.N.P., M. S.N. [address] [place], [place] [phone] (Wo rk) Social History [...] Historical Provider Ser - 09/13/2016 11:59 PM SITE LEAD Coding Summary-Paper Based CODING DATE: 09/25/2016 FINAL [facility] STATUS: * Discharged to Home or Self [...] ROSALES Date Saved: 09/25/2016 08:46 am Source: [facility] Document Id: [id number] documented in this encounter Plan of Treatment Upcoming Encounters Date Type Specialty Care Team Description 08/22/2022 Clinical Communication Admitting/Central Scheduling 08/24/2022 Appointment Radiation Oncology Sue Barry M.D. [address] [place] [phone] documented as of this encounter Visit Diagnoses Not on filedocumented in this encounter
--- OUTSIDE RECORDS SUMMARY | 2022-08-14 22:21 | XMS_ITS | Encounter Summary ---
:1940 Author Organization [facility] Address [address] [place] [address] Care Team Providers Name Role Phone Aneta Whitaker APRN, C.N.P., M.S.N. Primary Care Pr ovider Encounter Details Date Type Department Care Team Description 09/17/2017 Hospital Encounter Department of [place], Hypothyr oidism; Laboratory Medicine Aneta Rodriguez APRN, Hyp erlipidemia; in [place], [place] Renée, M.S.N. Hypertension NOS [address] [place] [phone] Social History Tobacco Use Types Packs/Day Years [...] Radiation Oncology Sue Barry M.D. [address] [place] [address] documented as of this encounter Procedures Procedure Name Priority Date/Time Associated Diagnosis Comme nts LIPID PANEL, S Routine 09/17/2017 8:29 AM Hyperlipidemia Resul ts for this HOSPITAL FOOD SERVICE WORKER procedure are i n the results section. THYROID-STIMULATING Routine 09/17/2017 8:29 AM Hypothyroidism Results for this HORMONE-SENSITIVE HOSPITAL FOOD SERVICE WORKER procedure are in (S-TSH) the results section. BASIC METABOLIC Routine 09/17/2017 8:29 AM Hypertension NOS Re sults for this PANEL, S/P HOSPITAL FOOD SERVICE WORKER procedure are i n the results section. documented in this encounter Results BMP (Basic Metabolic Panel) (09/17/2017 8:29 AM HOSPITAL FOOD SERVICE WORKER) P athologist Signature Potassium, S 4.1 3.6 - 5.2 09/17/2017 [facility] mmol/L 11:32 AM [facility] [place] [facility] Sodium, S 143 135 - 145 09/17/2017 [facility] mmol/L 11:32 AM [facility] [place] [facility] Chloride, S 102 98 - 107 09/17/2017 [facility] mmol/L 11:32 AM [facility] [place] [facility] Bicarbonate, S 27 22 - 29 09/17/2017 [facility] mmol/L 11:32 AM [facility] [employer] [facility] Anion Gap 14 7 - 15 09/17/2017 [facility] 11:32 AM [facility] [employer] [facility] BUN (Blood Urea 19 6 - 21 09/17/2017 [facility] Nitrogen), S mg/dL 11:32 AM [facility] [employer] [facility] Creatinine 0.85 0.59 - 09/17/2017 [facility] 1.04 mg/dL 11:32 AM [facility] [facility] eGFR 68 >=60 09/17/2017 [facility] Non-Black/Afric mL/min/BSA 11:32 AM [facility] [employer] [facility]- an Cuban [place] [facility] Comment: ----ADDITIONAL INFORMATION---- Estimated GFR calculated using the 2009 CKD_EPI creatinine equation. eGFR Black/ 78 >=60 mL/min/BSA 09/17/2017 11:3 2 AM [facility] [place] [facility] Comment: ----ADDITIONAL INFORMATION---- Estimated GFR calculated using the 2009 CKD_EPI creatinine equation. Calcium, Total, S 10.1 8.9 - 10.1 mg/dL 09/17/2017 11:3 2 AM [facility] [employer] [facility] Glucose, S 107 70 - 140 mg/dL 09/17/2017 11:32 AM [facility] Specimen Anatomical Collection Method Collection Time Receive d Time (Source) Location / / Volume Laterality Blood 09/17/2017 8:29 AM 7 HOSPITAL FOOD SERVICE WORKER 10:57 AM [facility] Aneta Whitaker APRN, C.N.P., M.S.N. LAB BLOOD ADD-ON Performing Organization Address City/State/ZIP Code Phon e Number [facility] [address] [place] [address] LAB (ABNORMAL) Lipid Panel (09/17/2017 8:29 AM [facility]) athologist Signature Cholesterol, 176 mg/dL 09/17/2017 [facility] Total 11:32 AM [facility] [place] [facility] Comment: ----REFERENCE VALUE---- Desirable: < 200 Borderline high: 200 - 239 High: > or = 240 Triglycerides 186 (H) mg/dL 09/17/2017 11:32 AM HOSPITAL FOOD SERVICE WORKER [facility] [place] [facility] Comment: ----REFERENCE VALUE---- Normal: <150 Borderline high: 150-199 High: 200-499 Very high: > or =500 Cholesterol, HDL, S 45 (L) >=50 mg/dL 09/17/2017 11:32 AM [facility] FOOD SERVICE [facility] Calculated LDL 94 mg/dL 09/17/2017 11:32 AM HOSPITAL FOOD SERVICE WORKER [facility] [place] [facility] Comment: ----REFERENCE VALUE---- Desirable: <100 Above Desirable: 100-129 Borderline high: 130-159 High: 160-189 Very high: > or =190 Cholesterol, Non-HDL, 131 mg/dL 09/17/2017 11:32 A [facility] [place] B Comment: ----REFERENCE VALUE---- Desirable: <130 Above Desirable: 130-159 Borderline high: 160-189 High: 190-219 Very high: > or =220 Specimen Anatomical Collection Method Collection Time Receive d Time (Source) Location / / Volume Laterality Blood 09/17/2017 8:29 AM 7 HOSPITAL FOOD SERVICE WORKER 10:57 AM HOSPITAL FOOD SERVICE WORKER Aneta Whitaker APRN, C.N.P., M.S.N. LAB BLOOD ADD-ON Performing Organization Address City/State/ZIP Code Phon e Number [facility] [address] [place] [address] LAB S-TSH (Thyroid-Stimulating Hormone - Sensitive) (09/17/2017 8:29 AM HOSPITAL FOOD SERVICE WORKER) P athologist Signature TSH, Sensitive 1.8 0.3 - 4.2 09/17/2017 [facility] mIU/L 11:32 AM [facility] Comment: Biotin has been identified by the lopez ruiz as a potential interfering substance. ??Higher concentr ations of biotin may be found in multivitamins, hair/nail supple ments, and workout supplements. ??If the result does not [facility] clinical observations, repeat testing after patient refrains fr om the use of supplements for at least 12 hours. Specimen Anatomical Collection Method Collection Time Receive d Time (Source) Location / / Volume Laterality Blood 09/17/2017 8:29 AM 7 HOSPITAL FOOD SERVICE WORKER 10:57 AM HOSPITAL FOOD SERVICE WORKER Aneta Whitaker APRN, C.N.P., M.S.N. LAB BLOOD ADD-ON Performing Organization Address City/State/ZIP Code Phon e Number [facility] [address] [place] [address] LAB documented in this encounter Visit Diagnoses Diagnosis Hypothyroidism Hyperlipidemia Hypertension NOS documented in this encounter Care Teams Assembler Piano Relationship Specialty Start Date End Date Aneta Whitaker APRN, C.N.Amanda., PCP - General 06/13/18 M.S.N. [address] [place] [address] documented as of this encounter
--- OUTSIDE RECORDS SUMMARY | 2022-08-14 22:21 | XMS_ITS | Encounter Summary ---
:1940 Author Organization [facility] Address [address] [place] [address] Care Team Providers Name Role Phone Aneta Whitaker APRN C.N.PAntwan, M.S.N. Primary Care Pr ovider Encounter Details Date Type Department Care Team Description 09/14/2017 Abstract Department of Family Medicine, Provider, Historical [facility], in [place], [place] [address] [place] [address] Social History Tobacco Use Types Packs/Day Years [...] Radiation Oncology Sue Barry M.D. [address] [place] [phone] documented as of this encounter Visit Diagnoses Not on filedocumented in this encounter Care Teams Business Economist Relationship Specialty Start Date End Date Aneta Whitaker APRN, C.N.P., PCP - General 06/13/18 M.S.N. [address] [place] [phone] documented as of this encounter
--- OUTSIDE RECORDS SUMMARY | 2022-08-14 22:21 | XMS_ITS | Encounter Summary ---
:1940 Author Organization [facility] Address [address] [place] [address] Care Team Providers Name Role Phone Unavailable Primary Care Provider Unavailable Encounter Details Date Type Department Care Team Description 09/13/2016 Hospital Encounter HX [facility] Whitaker, Cecily Rodriguez, MISA, C.N.P., M. S.N. [address] [place], [place] [phone] (Wo rk) Social History [...] Radiation Oncology Sue Barry M.D. [address] [place] [address] documented as of this encounter Procedures Procedure Name Priority Date/Time Associated Comments Diagnosis BACTERIAL CULTURE, Routine 09/13/2016 11:47 Resul ts for this AEROBIC, URINE AM MECHANICAL OPERATOR procedure are in the results section. URINALYSIS, MIDSTREAM, Routine 09/13/2016 11:43 R esults for this WITH CULTURE IF AM MECHANICAL OPERATOR procedure ar e in INDICATED the results section. LIPID PANEL, S Routine 09/13/2016 8:26 AM Results for this MECHANICAL OPERATOR procedure are i n the results section. VITAMIN B12 AND Routine 09/13/2016 8:26 AM Result s for this FOLATE, S MECHANICAL OPERATOR procedure are i n the results section. AUTOMATED Routine 09/13/2016 8:26 AM Results f or this DIFFERENTIAL, B MECHANICAL OPERATOR procedure ar e in the results section. 25-HYDROXYVITAMIN D2 Routine 09/13/2016 8:26 AM R esults for this AND D3, S MECHANICAL OPERATOR procedure are i n the results section. CBC WITH DIFFERENTIAL, Routine 09/13/2016 8:26 AM Results for this B MECHANICAL OPERATOR procedure are i n the results section. THYROID-STIMULATING Routine 09/13/2016 8:26 AM Re sults for this HORMONE-SENSITIVE MECHANICAL OPERATOR procedure are in (S-TSH) the results section. COMPREHENSIVE Routine 09/13/2016 8:26 AM Results for this METABOLIC PANEL, S/P MECHANICAL OPERATOR procedu re are in the results section. documented in this encounter Results (ABNORMAL) Bacterial Culture, Aerobic, Urine (09/13/2016 11:47 AM MECHANICAL OPERATOR) [facility] gist Method Time Signature Bacterial STASIM <=0.5 POWERCHART Culture, (POSITIVE) Aerobic, Urine HXPre STASIM POWERCHART Comment: >100,000 cfu/mL Staphylococcus simulans HXFinal STASIM POWERCHART Comment: >100,000 cfu/mL Staphylococcus simulans Specimen Anatomical Collection Method Collection Time Receive d Time (Source) Location / / Volume Laterality Urine, First 09/13/2016 11:47 09/13/2016 Voided AM MECHANICAL OPERATOR 11:47 AM MECHANICAL OPERATOR Organism Antibiotic Method Susceptibility Staphylococcus simulans Ciprofloxacin [...] Vancomycin SUSCEPTIBILITY, <=0.5: S usceptible ALEJANDRA (MCG/ML) Victor Hugo Renteria APRNN.Lizabeth, M.S.N. LAB MICROB IOLOGY - GENERAL ORDERABLES Performing Organization Address [facility] Phon e Number POWERCHART (ABNORMAL) Urinalysis, Midstream, with culture if indicated (09/13/2016 11:43 AM MECHANICAL OPERATOR) [facility] gist Method Time Signature HXUr Color Yellow POWERCHART Clarity Slightly POWERCHART Cloudy (A) Glucose Negative MGDL POWERCHART HXBILIRUBIN Negative POWERCHART Ketones, QL(U) Negative Negative POWERCHART MGDL Specific 1.020 POWERCHART [place], POCT, U Comment: Reference Range Specific [place]: 1.000-1.035 HXBLOOD Negative POWERCHART pH, POCT, Urine [...] Laterality Urine, First 09/13/2016 11:43 Voided AM MECHANICAL OPERATOR Abelardo Renteria APRN.N.Lizabeth, M.S.N. LAB URINE ORDERABLES Performing Organization Address [facility] Phon e Number POWERCHART Automated Differential (09/13/2016 8:26 AM MECHANICAL OPERATOR) athologist Signature Absolute 3.50 1.70 - POWERCHART Neutrophils 7.00 109L Lymphocytes 2.21 0.90 - POWERCHART 2.90 X109L Monocytes 0.51 0.30 - POWERCHART 0.90 X109L Eosinophils 0.12 0.05 - POWERCHART 0.50 X109L Absolute 0.03 0.00 - POWERCHART Basophil 0.30 X109L Specimen Anatomical Collection Method Collection Time Receive d Time (Source) Location / / Volume Laterality Blood 09/13/2016 8:26 AM 8:26 MECHANICAL OPERATOR AM MECHANICAL OPERATOR Victor Hugo Renteria APRNNAvtar, M.S.N. LAB BLOOD ADD-ON Performing Organization Address City/[facility] Phon e Number POWERCHART CBC with Differential (09/13/2016 8:26 AM MECHANICAL OPERATOR) athologist Signature Leukocytes 6.4 3.4 - 10.5 POWERCHART X109L Erythrocytes 4.20 3.90 - POWERCHART 5.03 [id number] Hemoglobin 12.0 12.0 - POWERCHART 15.5 GDL Hematocrit 36.7 34.9 - POWERCHART 44.5 MCV 87.4 82.0 - POWERCHART 98.0 FL HX RDW 14.9 11.9 - POWERCHART 15.5 Platelet Count 306 150 - 450 POWERCHART X109L HXDifferential? Auto POWERCHART Specimen (Source) Anatomical Collection Method Collection Time Re ceived Time Location / / Volume Laterality Blood 09/13/2016 8:26 AM MECHANICAL OPERATOR Victor Hugo Renteria APRNN.P., M.S.N. LAB BLOOD ADD-ON Performing Organization Address [facility] Phon e Number POWERCHART 25-Hydroxyvitamin D2 and D3 (09/13/2016 8:26 AM MECHANICAL OPERATOR) athologist Signature HX25 HYDROXY D2 <4.0 NGML POWERCHART 25-Hydroxy D3 34 NGML POWERCHART Vitamin D, S 34 NGML POWERCHART Comment: REFERENCE VALUE------ 25-HYDROXY D TOTAL (D2+D3) Optimum level s in the healthy population are 20-50, patients with bone disease may benefit from higher levels within this r anh. ADDITIONAL INFORMATIO N This test was developed and its performa nce characteristics determined by [facility] in a manner co nsistent with CLIA requirements. This test has not been lolis ared or approved by the U.S. Food and Drug Administration. Test Performed by: [address] [address] Aircraft Cleaner: Hermes Lees II, M.D., Ph.D. Specimen (Source) Anatomical Collection Method Collection Time Re ceived Time Location / / Volume Laterality Blood 09/13/2016 8:26 AM MECHANICAL OPERATOR Aneta Whitaker APRN, C.N.P., M.S.N. LAB BLOOD ADD-ON Performing Organization Address City/State/ZIP Code Phon e Number POWERCHART Vitamin B12 Level and Folate (09/13/2016 8:26 AM MECHANICAL OPERATOR) athologist Signature Vitamin B12 289 180 915 POWERCHART Assay, S NGL Comment: Biotin has been identified by the [facility] as a potential interfering substance. Higher concentrations of biotin may be found in multivitamins, hair/nail supplements, and workout supplements. If the result does not match clinical observat ions, repeat testing after patient refrains from the use of supplements for at least 12 hours. Folate, S 11.7 >=4.6 MCGL POWERCHART Comment: Biotin has been identified by the [facility] as a potential interfering substance. Higher concentrations of biotin may be found in multivitamins, hair/nail supplements, and workout supplements. If the result does not match clinical observat ions, repeat testing after patient refrains from the use of supplements for at least 12 hours. Specimen (Source) Anatomical Collection Method Collection Time Re ceived Time Location / / Volume Laterality Blood 09/13/2016 8:26 AM MECHANICAL OPERATOR Abelardo Renteria APRN.N.P., M.S.N. LAB BLOOD NON ADD-ON Performing Organization Address City/State/ZIP Code Phon e Number POWERCHART Thyroid-Stimulating Hormone-Sensitive (s-TSH) (09/13/2016 8:26 AM MECHANICAL OPERATOR) athologist Signature TSH 1.33 0.27 - 4.20 POWERCHART (Thyrotropin) MIUL Comment: Biotin has been identified by the lopez ruiz as a potential interfering substance. Higher concentrations of biotin may be found in multivitamins, hair/nail supplements, and workout supplements. If the result does not match clinical observat ions, repeat testing after patient refrains from the use of supplements for at least 12 hours. Specimen (Source) Anatomical Collection Method Collection Time Re ceived Time Location / / Volume Laterality Blood 09/13/2016 8:26 AM MECHANICAL OPERATOR Aneta Whitaker APRN, C.N.P., M.S.N. LAB BLOOD ADD-ON Performing Organization Address City/State/ZIP Code Phon e Number POWERCHART (ABNORMAL) Lipid Panel (09/13/2016 8:26 AM MECHANICAL OPERATOR) P athologist Signature Cholesterol, 152 <=199 MGDL POWERCHART Total Comment: 2014 National Lipid Association recommen dations for Total Cholesterol in adults ages 18 and up: Desirable <200 mg/dL Borderline high 200-239 mg/dL High 240 mg/dL 2014 National Lipid Association recommen dations for Total Cholesterol in children ages 2 to 17. Acceptable <170 mg/dL Borderline High 170-199 mg/dL High 200 mg/dL HX HDL 44 (L) >=50 MGDL POWERCHART Comment: 2014 National Lipid Association recommen dations for HDL-C in adults ages 18 and up: Low <40 mg/dL (Men) Low <50 mg/dL (Women) 2014 National Lipid Association recommen dations for HDL-C in children ages 2 to 17. Low <40 mg/dL Borderline Low 40-45 mg/dL Acceptable >45 mg/dL Triglycerides 117 <=149 MGDL POWERCHART Comment: 2014 National Lipid Association [...] High 160-189 mg/dL Very High 190 mg/dL 2013 National Lipid Association recommen dations for LDL-C in children ages 2 to 17. Acceptable <110 mg/dL Borderline High 110-129mg/dL High 130 mg/dL LDL-C >190mg/dL: The markedly elevated LDL level is suggestive of a genetic condition such as familial hypercholesterolemia(FH) or familial defective apolipoprotein B-100 (FDB). Molecular genetic t esting for FH and FDB is available druu [facility]: FH/ADH Genetic Reflex Gan [place] (test ADHP). Acquired (non-genetic) causes of markedly increased LDL cholesterol include cholestatic liver disease due to the presence of LpX. If a genetic form of hypercholesterolemia is suspected, family studies including biochemical testing fo r lipids (total cholesterol,triglycerides, LDL cholesterol and HDL cholesterol) are recommended. ??Please contact the laboratory at or the on-line test catalog at [facility] for information about how to order these ghada ts or to speak with a genetic counselor. Further interpretation would require clinical information. Total Cholesterol/HDL Ratio 3.00 PO WERCHART HXLDL/HDL 2 POWERCHART Specimen (Source) Anatomical Collection Method Collection Time Re ceived Time Location / / Volume Laterality Blood 09/13/2016 8:26 AM MECHANICAL OPERATOR Aneta Whitaker APRN C.N.P., M.S.N. LAB BLOOD ADD-ON Performing Organization Address City/State/ZIP Code Phon e Number POWERCHART (ABNORMAL) CMP (Comprehensive Metabolic Panel) (09/13/2016 8:26 AM MECHANICAL OPERATOR) [facility] Method Time Signature Alanine 20 7 - [...] POWERCHART MMOLL HXeGFR (MDRD) >60 >=60 POWERCHART [id number] 2 eGFR Black/ >60 >=60 POWERCHART [place] [id number] 2 Bilirubin, Total, S 0.5 <=1.2 POWERCHART MGDL Total Protein, S 7.1 6.4 - 8.3 POWERCHART GDL Specimen (Source) Anatomical Collection Method Collection Time Re ceived Time Location / / Volume Laterality Blood 09/13/2016 8:26 AM MECHANICAL OPERATOR Aneta Whitaker APRN, C.N.P., M.S.N. LAB BLOOD ADD-ON Performing Organization Address City/State/ZIP Code Phon e Number POWERCHART documented in this encounter Visit Diagnoses Not on filedocumented in this encounter
--- OUTSIDE RECORDS SUMMARY | 2022-08-14 22:21 | XMS_ITS | Encounter Summary ---
:1940 Author Organization [facility] Address [address] [place] [address] Care Team Providers Name Role Phone Unavailable Primary Care Provider Unavailable Encounter Details Date Type Department Care Team Description 03/13/2016 Hospital Encounter HX [facility] FAMILYPRA Aneta hWitaker APRN, C.N.P., M.S.N. [address] [place] [address] (Wo rk) Social History Tobacco Use Types [...] as of this encounter Progress Notes Sherman, Aneta Rodriguez, MISA, TECHNOLOGY INSTRUCTOR - 03/13/2016 8:31 AM CDT [id number] CHIEF COMPLAINT/REASON FOR VISIT Low back pain [...] has worked well for her arthritis in [facility] was Tylenol Arthritis. She does not take [...] understanding. Antolin Diaz -C./tello Electronically Signed By: ANETA WHITAKER [facility] On: 04/03/2016 11:12 AM Source: [facility] MHSDOLBEYNONRADSYS Document Id: [id number] documented in this encounter Miscellaneous Notes Miscellaneous - Stephen Rubin, LAntwanPAntwanNAntwan - 03/13/2016 8:44 AM CDT Adult Radiologic Therapist Intake/History Adult Radiologic Therapist Intake/History Entered On: 03/13/2016 8:47 CDT Performed On: 03/13/2016 8:44 CDT by STEPHEN RUBIN LPN Intake Chief Complaint : follow [...] scale Dosing Weight Clinic : 96.4 kg STEPHEN RUBIN LPN - 03/13/2016 8:44 CDT General Info Information Given By : Patient Preferred Communication Mode : Verbal Languages : Salvadorean Is Patient Female and 13-50 no hysterectomy : No STEPHEN RUBIN LPN - 03/13/2016 8:44 CDT Subjective Pain Symptoms : Yes STEPHEN RUBIN LPN - 03/13/2016 8:44 CDT Pain Scale Pain Scale Verbal 0-10 : Open STEPHEN RUBIN LPN - 03/13/2016 8:44 CDT Pain Pain Assessment Grid Pain 1 Location : Lower back Laterality : Right Intensity : 10 Duration : 24 hours STEPHEN RUBIN LPN - 03/13/2016 8:44 CDT Dependent Habits Exposure to Tobacco Smoke : Other: Never Smoked Smoking Status : Never smoker Tobacco 2A : No Tobacco Use/Currently Using : No Tobacco Use/Last 30 Days : No Tobacco Use/Last 12 months : No Alcohol Use : Yes STEPHEN RUBIN LPN - 03/13/2016 8:44 CDT Caffeine Use Grid Caffeine Use : Current Type : Soft drinks Frequency : Daily Amount : 1 can diet soda Last Use : 03/12/16 STEPHEN RUBIN LPN - 03/13/2016 8:44 CDT Recreational Drug Use Grid Drug Use : None STEPHEN RUBIN LPN - 03/13/2016 8:44 CDT Source: [employer] Document Id: [id number] CDT!49 Miscellaneous - Stephen Rubin, L.P.N. - 03/13/2016 8:44 AM CDT PHQ-9 PHQ-9 Entered On: 03/13/2016 8:47 CDT Performed On: 03/13/2016 8:44 CDT by STEPHEN RUBIN LPN PHQ-9 Little interest [...] difficult at all STEPHEN RUBIN LPN - 03/13/2016 8:44 CDT Source: [facility] [employer] Document Id: [id number] CDT!13 documented in this encounter Plan of Treatment Upcoming Encounters Date Type Specialty Care Team Description 08/22/2022 Clinical Communication Admitting/Central Scheduling 08/24/2022 Appointment Radiation Oncology Sue Barry M.D. [address] [place] [phone] documented as of this encounter Visit Diagnoses Not on filedocumented in this encounter
--- OUTSIDE RECORDS SUMMARY | 2022-08-14 22:21 | XMS_ITS | Encounter Summary ---
:1940 Author Organization [facility] Address [address] [place] [address] Care Team Providers Name Role Phone Unavailable Primary Care Provider Unavailable Encounter Details Date Type Department Care Team Description 07/01/2015 Hospital Encounter HX [facility] Aneta Whitaker APRN, C.N.P., M.S.N. [address] [place] [address] (Wo rk) Social History Tobacco Use Types [...] documented as of this encounter Progress Notes Aneta Whitaker APRN, SUPERVISOR [employer]UMENT [employer]CHANICS - 07/01/2015 7:50 AM CDT [id number] CHIEF COMPLAINT/REASON FOR VISIT I think I [...] instructions. Antolin Diaz -C./tello Electronically Signed By: ANETA WHITAKER CNP On: 07/10/2015 10:54 AM Source: [facility] MHSDOLBEYNONRADSYS Document Id: [id number] documented in this encounter Procedure Notes Stephen Rubin, L.P.N. - 07/01/2015 8:09 AM CDT Urine Dipstick Urine Dipstick Entered On: 07/01/2015 8:10 CDT Performed On: 07/01/2015 8:09 CDT by STEPHEN RUBIN LPN Urine Dipstick UA Color POC [...] : Negative Test Strip Lot # : [id number] Test Strip Expiration Date : 03/2018 STEPHEN RUBIN LPN - 07/01/2015 8:09 CDT Source: [employer] Document Id: [id number]!16 documented in this encounter Miscellaneous Notes Miscellaneous - Stephen Rubin L.P.N. 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 [employer] Intake/History Entered On: 07/01/2015 8:00 CDT Performed On: 07/01/2015 7:59 CDT by STEPHEN RUBIN LPN Intake Chief Complaint : thinks [...] scale Dosing Weight Clinic : 95.7 kg STEPHEN RUBIN LPN - 07/01/2015 7:59 CDT General Info Information Given By : Patient Preferred Communication Mode : Verbal Languages : Palauan Is Patient Female and 13-50 no hysterectomy : No STEPHEN RUBIN LPN - 07/01/2015 7:59 CDT Subjective Pain Symptoms : No STEPHEN RUBIN LPN - 07/01/2015 7:59 CDT Dependent Habits Tobacco Use/Currently Using : No Tobacco Use/Last 12 months : No Tobacco Use/Advised to Quit : No Exposure to Tobacco Smoke : Other: Never Smoked Smoking Status : Never smoker Alcohol Use : No STEPHEN RUBIN LPN - 07/01/2015 7:59 CDT Caffeine Use Grid Caffeine Use : Current Type : Soft drinks Frequency : Daily Amount : 1 can diet soda Last Use : 06/30/15 STEPHEN RUBIN LPN - 07/01/2015 7:59 CDT Recreational Drug Use Grid Drug Use : None STEPHEN RUBIN LPN - 07/01/2015 7:59 CDT Source: [facility] POWERCHART Document Id: [id number] CDT!39 documented in this encounter Plan of Treatment Upcoming Encounters Date Type Specialty Care Team Description 08/22/2022 Clinical Communication Admitting/Central Scheduling 08/24/2022 Appointment Radiation Oncology Sue Barry M.D. [address] [place] [address] documented as of this encounter Procedures Procedure [...] Tobramycin SUSCEPTIBILITY, ALEJANDRA <=1: Suscep tible (MCG/ML) Aneta Whitaker APRN, C.N.P., M.S.N. LAB MICROB IOLOGY - GENERAL ORDERABLES Performing Organization Address City/[facility]/ZIP Code Phon e Number POWERCHART Ketone, Urine, POCT (07/01/2015 8:09 AM CDT) [facility] gist Method Time Signature Color Pale Yellow POWERCHART Appearance Cloudy POWERCHART Leukocytes, Negative POWERCHART POCT, U Nitrites, Positive POWERCHART POCT, U Urobilinogen, 0.2 mg/dl POWERCHART POCT, Urine Protein, POCT, Negative POWERCHART U pH, POCT, 7.0 5.0 - 9.0 POWERCHART Urine Blood, POCT, U 2+ MODERATE POWERCHART Specific 1.020 1.000 - POWERCHART [place], POCT, 1.030 U Ketone, POCT, Negative POWERCHART U Bilirubin, Negative POWERCHART POCT, U Glucose, POCT, Negative POWERCHART U Specimen (Source) Anatomical Collection Method Collection Time Re ceived Time Location / / Volume Laterality 07/01/2015 8:09 AM CDT Victor Hugo Renteria APRNNAvtar, M.S.N. LAB POCT O RDERABLES-MANUAL Performing Organization Address City/State/ZIP Code Phon e Number POWERCHART documented in this encounter Visit Diagnoses Not on filedocumented in this encounter Additional Health Concerns Assessment Noted Time PHQ-9 Depression Total Score: 5 07/01/2015 8:48 AM CDT documented as of this encounter
--- OUTSIDE RECORDS SUMMARY | 2022-08-14 22:21 | XMS_ITS | Encounter Summary ---
:1940 Author Organization [facility] Address [address] [place] [address] Care Team Providers Name Role Phone Aneta Whitaker APRN C.N.PAntwan, M.S.N. Primary Care Pr ovider Encounter Details Date Type Department Care Team Description 07/19/2017 Orders Only Department of [facility] [place], Arabella cruz Hypothyroidism; Medicine in [place] APRN, C.N.PAntwan, Hype rlipidemia; [place] M.S.N. Hypertension NOS [address] [place] [address] [place], [place] [phone] (Wo rk) Social History Tobacco Use Types [...] Radiation Oncology Sue Barry M.D. [address] [place] [address] documented as of this encounter Results BMP (Basic Metabolic Panel) (09/17/2017 8:29 AM STAMPING OPERATOR) athologist Signature Potassium, S 4.1 3.6 - 5.2 09/17/2017 [facility] mmol/L 11:32 AM [facility] [place] [facility] Sodium, S 143 135 - 145 09/17/2017 [facility] mmol/L 11:32 AM [facility] [place] Chloride, S 102 98 - 107 09/17/2017 [facility] mmol/L 11:32 AM [facility] [place] [facility] Bicarbonate, S 27 22 - 29 09/17/2017 [facility] mmol/L 11:32 AM [facility] Anion Gap 14 7 - 15 09/17/2017 [facility] 11:32 AM [facility] BUN (Blood Urea 19 6 - 21 09/17/2017 [facility] Nitrogen), S mg/dL 11:32 AM [facility] Creatinine 0.85 0.59 - 09/17/2017 [facility] 1.04 mg/dL 11:32 AM [facility] [place] [facility] eGFR 68 >=60 09/17/2017 [facility] Non-Black/Afric mL/min/BSA 11:32 AM [facility] [employer]- an [place] [facility] Comment: ----ADDITIONAL INFORMATION---- Estimated GFR calculated using the 2009 CKD_EPI creatinine equation. eGFR Black/ 78 >=60 mL/min/BSA 09/17/2017 11:3 2 AM [facility] [place] [facility] Comment: ----ADDITIONAL INFORMATION---- Estimated GFR calculated using the 2009 CKD_EPI creatinine equation. Calcium, Total, S 10.1 8.9 - 10.1 mg/dL 09/17/2017 11:3 2 AM [facility] [place] [facility] Glucose, S 107 70 - 140 mg/dL 09/17/2017 11:32 AM [facility] [place] [facility] Specimen Anatomical Collection Method Collection Time Receive d Time (Source) Location / / Volume Laterality Blood 09/17/2017 8:29 AM 7 STAMPING OPERATOR 10:57 AM STAMPING OPERATOR Aneta Whitaker APRN, C.N.P., M.S.N. LAB BLOOD ADD-ON Performing Organization Address City/State/ZIP Code Phon e Number [facility] [address] [place] [phone] LAB (ABNORMAL) Lipid Panel (09/17/2017 8:29 AM [facility]) P athologist Signature Cholesterol, 176 mg/dL 09/17/2017 [facility] Total 11:32 AM [facility] [place] [facility] Comment: ----REFERENCE VALUE---- Desirable: < 200 Borderline high: 200 - 239 High: > or = 240 Triglycerides 186 (H) mg/dL 09/17/2017 11:32 AM [facility] [place] [facility] Comment: ----REFERENCE VALUE---- Normal: <150 Borderline high: 150-199 High: 200-499 Very high: > or =500 Cholesterol, HDL, S 45 (L) >=50 mg/dL 09/17/2017 11:[address] [facility] [place] [facility] Calculated LDL 94 mg/dL 09/17/2017 11:32 AM [facility] [place] [facility] Comment: ----REFERENCE VALUE---- Desirable: <100 Above Desirable: 100-129 Borderline high: 130-159 High: 160-189 Very high: > or =190 Cholesterol, Non-HDL, 131 mg/dL 09/17/2017 11:32 A M STAMPING OPERATOR [facility] [place] B Comment: ----REFERENCE VALUE---- Desirable: <130 Above Desirable: 130-159 Borderline high: 160-189 High: 190-219 Very high: > or =220 Specimen Anatomical Collection Method Collection Time Receive d Time (Source) Location / / Volume Laterality Blood 09/17/2017 8:29 AM 7 STAMPING OPERATOR 10:57 AM STAMPING OPERATOR Aneta Whitaker APRN, C.N.P., M.S.N. LAB BLOOD ADD-ON Performing Organization Address City/[facility]/ZIP Code Phon e Number [facility] [address] [place] [address] LAB S-TSH (Thyroid-Stimulating Hormone - Sensitive) (09/17/2017 8:29 AM STAMPING OPERATOR) P athologist Signature TSH, Sensitive 1.8 0.3 - 4.2 09/17/2017 [facility] mIU/L 11:32 AM [facility] LAB Comment: Biotin has been identified by the lopez ruiz as a potential interfering substance. ??Higher concentr ations of biotin may be found in multivitamins, hair/nail supple ments, and workout supplements. ??If the result does not ma [facility] clinical observations, repeat testing after patient refrains fr om the use of supplements for at least 12 hours. Specimen Anatomical Collection Method Collection Time Receive d Time (Source) Location / / Volume Laterality Blood 09/17/2017 8:29 AM 7 STAMPING OPERATOR 10:57 AM STAMPING OPERATOR Aneta Whitaker APRN, C.N.P., M.S.N. LAB BLOOD ADD-ON Performing Organization Address City/State/ZIP Code Phon e Number [facility] [address] [place] [address] LAB documented in this encounter Visit Diagnoses Diagnosis Hypothyroidism Hyperlipidemia Hypertension NOS documented in this encounter Care Teams Senior Salesforce Developer Relationship Specialty Start Date End Date Whitaker, Aneta Rodriguez APRN, C.N.P., PCP - General 06/13/18 M.S.N. [address] [place] [address] documented as of this encounter
--- OUTSIDE RECORDS SUMMARY | 2022-08-14 22:21 | XMS_ITS | Encounter Summary ---
:1940 Author Organization [facility] Address [address] [place] [address] Care Team Providers Name Role Phone Unavailable Primary Care Provider Unavailable Encounter Details Date Type Department Care Team Description 03/13/2016 Hospital Encounter HX [facility] LAB Whitaker, Cecily Rodriguez, MISA, C.N.P., M. S.N. [address] [place], [place] [phone] (Wo rk) Social History [...] 11:47:45 CDT From: JEREMIAH ELLSWORTH (DAVID Pascual Banking Assistant) To: ANETA WHITAKER CNP; Sent: 08/10/2016 11:47:45 CDT Subject: RE: *Phone Message Addendum by JEREMIAH ELLSWORTH on August 10, 2016 11:47:41 CDT Pt notified and will call back to schedule. Addendum by JEREMIAH ELLSWORTH on August 10, 2016 11:46:03 CDT thank you. will notify patient. Addendum by ANETA WHITAKER CNP on August 10, 2016 07:37:49 CDT From: ANETA WHITAKER CNP To: DAVID Pascual Banking Assistant; Sent: 08/10/2016 07:37:49 CDT Subject: RE: *Phone Message Done From: JEREMIAH ELLSWORTH (DAVID Pascual Banking Assistant) To: ANETA WHITAKER CNP; Sent: 08/09/2016 13:28:27 CDT Subject: [...] the patient. Patient can be reached at [phone] Message: Advice/Action: Source used: ( ) Verbalizes [...] back cell phone number ( ) Source: [facility] POWERCHART Document Id: [id number] documented in this encounter Plan of Treatment Upcoming Encounters Date Type Specialty Care Team Description 08/22/2022 Clinical Communication Admitting/Central Scheduling 08/24/2022 Appointment Radiation Oncology Sue Barry M.D. [address] [place] [address] documented as of this encounter Procedures Procedure [...] Calculated LDL 89 <=129 MGDL POWERCHART Comment: 2014 National Lipid Association [...] esting for FH and FDB is available throu [facility]: FH/ADH Genetic Reflex [place] (test ADHP). Acquired (non-genetic) causes of markedly increased LDL cholesterol include cholestatic liver disease due to the presence of LpX. If a genetic form of hypercholesterolemia is suspected, family studies including biochemical testing fo r lipids (total cholesterol,triglycerides, LDL cholesterol and HDL cholesterol) are recommended. ??Please contact the laboratory at or the on-line test catalog at [employer] for information about how to order these [...] HDL 43 (L) >=50 MGDL POWERCHART Comment: 2013 National [...] Volume Laterality Blood 03/13/2016 8:39 AM CDT Aneta Whitaker APRN C.N.P., M.S.N. LAB BLOOD [...] within this r anh. Test Performed by: [address] [id number] [employer] Making Machine Operator: Hermes Lees II, M.D., Ph.D. Specimen (Source) Anatomical Collection Method Collection Time Re ceived Time Location / / Volume Laterality Blood 03/13/2016 8:39 AM CDT Abelardo Renteria APRN.N.P., M.S.N. LAB BLOOD ADD-ON Performing Organization Address City/State/[facility] Code Phon e Number POWERCHART (ABNORMAL) Hemoglobin A1c (03/13/2016 8:39 AM CDT) P athologist Signature Hemoglobin A1c, 6.2 (H) <=5.6 A1C POWERCHART B Specimen (Source) Anatomical Collection Method Collection Time Re ceived Time Location / / Volume Laterality Blood 03/13/2016 8:39 AM CDT Aneta Whitaker APRN C.N.P., M.S.N. LAB BLOOD ADD-ON Performing Organization Address City/State/[facility] Code Phon e Number POWERCHART documented in this encounter Visit Diagnoses Not on filedocumented in this encounter
--- OUTSIDE RECORDS SUMMARY | 2022-08-14 22:21 | XMS_ITS | Encounter Summary ---
:1940 Author Organization [facility] Address [address] [place] [address] Care Team Providers Name Role Phone Aneta Whitaker APRN, C.NAvtar, M.S.N. Primary Care Pr ovider Reason for Visit Reason Comments Med Refill Encounter Details Date Type Department Care Team Description 10/08/2017 Refill Department of Family Medicine Aneta Whitaker, Med Refill in [facility] a Victor Hugo BYNUMNAvtar, M.S.N. [address] [place] [address] [place] [address] [phone] (Wo rk) Social History Tobacco Use Types [...] Radiation Oncology Sue Barry M.D. [address] [place] [address] documented as of this encounter Visit Diagnoses Not on filedocumented in this encounter Care Teams Wire Frame Lamp Shade Maker Relationship Specialty Start Date End Date Whitaker, Aneta Rodriguez APRN, C.N.P., PCP - General 06/13/18 M.S.N. [address] [place] [address] documented as of this encounter
--- OUTSIDE RECORDS SUMMARY | 2022-08-14 22:21 | XMS_ITS | Encounter Summary ---
:1940 Author Organization [facility] Address [address] [place] [address] Care Team Providers Name Role Phone Unavailable Primary Care Provider Unavailable Encounter Details Date Type Department Care Team Description 09/20/2015 Hospital Encounter [facility]X [facility] Aneta Whitaker APRN, C.N.P., M.S.N. [address] [place] [address] (Wo rk) Social History Tobacco Use Types [...] Comments Blood Pressure 121/74 09/20/2015 8:29 AM LIBRARY HISTORIAN Pulse 72 09/20/2015 8:29 AM LIBRARY HISTORIAN Temperature - - Respiratory Rate 16 09/20/2015 8:29 AM LIBRARY HISTORIAN Oxygen Saturation - - Inhaled Oxygen Concentration - - Weight 95.6 kg (210 lb 12.2 oz) 09/20/2015 8:29 AM LIBRARY HISTORIAN Height 161.8 cm (5' 3.7) 09/20/2015 8:29 AM LIBRARY HISTORIAN Body Mass Index 36.52 09/20/2015 8:29 AM LIBRARY HISTORIAN documented in this encounter Medications at Time [...] this encounter H&P Notes Aneta Whitaker APRN, LAMINATION BUILDER - 09/20/2015 8:23 AM CST [id number] CHIEF COMPLAINT/REASON FOR VISIT Annual exam. HISTORY OF PRESENT ILLNESS A very pleasant 74-year-old female presents for annual physical exam. She states she is doing very well. Did have recent left knee surgery and states it has been a long haul but she is doing much better. Started working out last month at the gym. She has a horse trainer and she says since she has [...] ordered for when she returns home from [place] in February. Strongly encouraged her to continue [...] WHITAKER CNP On: 10/18/2015 12:09 PM Source: [facility] MHSDOLBEYNONRADSYS Document Id: [id number] ARY HISTORIAN documented in this encounter Miscellaneous Notes Telephone Encounter - Conversion, Historical Provider Ser - 10/13/2015 9:54 AM CST *Phone Message Document Contains Addenda Addendum by STEPHEN RUBIN LPN on 13 October 2015 11:49:49 LIBRARY HISTORIAN From: STEPHEN RUBIN LPN ([facility] Nurse) To: ANETA WHITAKER CNP; Sent: 10/13/2015 11:49:49 LIBRARY HISTORIAN Subject: RE: *Phone Message FYI: Patient states she got a new order for her prednisone by her concrete building assembler in [place]. She states she is feeling congested on [...] this works for her. From: JEREMIAH ELLSWORTH ([facility] Wood Boat Builder Supervisor) [facility]: [facility] Medicine Nurse; Sent: 10/13/2015 09:54:00 LIBRARY HISTORIAN Subject: *Phone Message Caller is: ( x) [...] not better. Should she keep taking it? [phone] Message: Advice/Action: Source used: ( ) Verbalizes [...] back cell phone number ( ) Source: [facility] POWERCHART Document Id: [id number] Miscellaneous - Aneta Whitaker APRN, LAMINATION BUILDER - 09/27/2015 10:18 AM LIBRARY HISTORIAN Lab results Document Contains Addenda Addendum by STEPHEN RUBIN LPN on 27 September 2015 14:02:41 LIBRARY HISTORIAN Patient is aware and she is making an appointment at this time. From: ANETA WHITAKER CNP To: DAVID Pascual [facility] Medicine Nurse; Sent: 09/27/2015 10:18:33 LIBRARY HISTORIAN Subject: Lab results If possible please have patient follow up regarding labs. Prediabetic. Thank you. Source: [facility] [employer] Document Id: [id number] James - Stephen Rubin L.P.NAntwan - 09/20/2015 8:43 AM CST PHQ-9 PHQ-9 Entered On: 09/20/2015 8:43 LIBRARY HISTORIAN Performed On: 09/20/2015 8:43 LIBRARY HISTORIAN by STEPHEN RUBIN LPN PHQ-9 Little interest [...] all STEPHEN RUBIN LPN - 09/20/2015 8:43 LIBRARY HISTORIAN Source: [facility] [employer] Document Id: [id number] LIBRARY HISTORIAN!13 ARY HISTORIAN Amandacellavani - Stephen Rubin L.P.NAntwan - 09/20/2015 8:29 AM CST Adult Consulting Services Project Manager Intake/History Adult Consulting Services Project Manager Intake/History Entered On: 09/20/2015 8:33 LIBRARY HISTORIAN Performed On: 09/20/2015 8:29 LIBRARY HISTORIAN by STEPHEN RUBIN LPN Intake Chief Complaint [...] kg/m2 STEPHEN RUBIN LPN - 09/20/2015 8:29 LIBRARY HISTORIAN General Info Information Given By : Patient Preferred Communication Mode : Verbal Languages : Russian Is Patient Female and 13-50 no hysterectomy : No STEPHEN RUBIN LPN - 09/20/2015 8:29 LIBRARY HISTORIAN Subjective Pain Symptoms : Yes STEPHEN RUBIN LPN - 09/20/2015 8:29 LIBRARY HISTORIAN Pain Scale Pain Scale Verbal 0-10 : Open STEPHEN RUBIN LPN - 09/20/2015 8:29 LIBRARY HISTORIAN Pain Pain Assessment Grid Pain 1 Location : Wrist Laterality : Left Intensity : 7 Duration : 1 day STEPHEN RUBIN LPN - 09/20/2015 8:29 LIBRARY HISTORIAN Dependent Habits Exposure to Tobacco Smoke : Other: Never Smoked Smoking Status : Never smoker Tobacco 2A : No Alcohol Use : Yes STEPHEN RUBIN LPN - 09/20/2015 8:29 LIBRARY HISTORIAN Caffeine Use Grid Caffeine Use : Current Type : Soft drinks Frequency : Daily Amount : 1 can diet soda Last Use : 09/19/15 STEPHEN RUBIN LPN - 09/20/2015 8:29 LIBRARY HISTORIAN Recreational Drug Use Grid Drug Use : None STEPHEN RUBIN LPN - 09/20/2015 8:29 LIBRARY HISTORIAN [facility] Document Id: [id number] LIBRARY HISTORIAN!48 ARY HISTORIAN Miscellaneous - Stephen Rubin L.P.N. - 09/20/2015 8:29 AM CST Health Assessment Health Assessment Entered On: 09/20/2015 8:35 LIBRARY HISTORIAN Performed On: 09/20/2015 8:29 LIBRARY HISTORIAN by STEPHEN RUBIN LPN Health Assessment Complete Health Assessment Complete or Modified : Annual Health Assessment Annual Health Assessment Completed : Yes STEPHEN RUBIN LPN - 09/20/2015 8:29 LIBRARY HISTORIAN Nutrition Nutrition Risk Factors by History Adult : None STEPHEN RUBIN LPN - 09/20/2015 8:29 LIBRARY HISTORIAN Functional Current Daily Living Assistance : None Mobility Assistance Prior to Admission : Independent STEPHEN RUBIN LPN - 09/20/2015 8:29 LIBRARY HISTORIAN Dependent Habits Exposure to Tobacco Smoke : Other: Never Smoked Smoking Status : Never smoker Tobacco 2A : No STEPHEN RUBIN LPN - 09/20/2015 8:29 LIBRARY HISTORIAN Caffeine Use Grid Caffeine Use : Current Type : Soft drinks Frequency : Daily Amount : 1 can diet soda Last Use : 09/19/15 STEPHEN RUBIN LPN - 09/20/2015 8:29 LIBRARY HISTORIAN Alcohol Use : Yes STEPHEN RUBIN LPN - 09/20/2015 8:29 LIBRARY HISTORIAN Recreational Drug Use Grid Drug Use : None STEPHEN RUBIN LPN - 09/20/2015 8:29 LIBRARY HISTORIAN AUDIT Tool How Often Do You Have A Drink : Monthly or less How Many Drinks in a Day When Drinking : 1 or 2 Six or More Drinks On One Occassion : Never Audit Phase 1 Score : 1 STEPHEN RUBIN LPN 09/20/2015 8:29 LIBRARY HISTORIAN Psychosocial Domestic Abuse Concerns : None Marital Status : Behavioral Health Screen/Safety Assmt : No Education : High School Graduate Yaz[employer] Preference : STEPHEN Castellanos LPN - 09/20/2015 8:29 LIBRARY HISTORIAN Advance Directive Advanced Directives : No Advance Directive Additional Information : No STEPHEN RUBIN LPN - 09/20/2015 8:29 LIBRARY HISTORIAN Educ Needs Learning Style Preference Adult Grid Patient : Printed materials, Verbal explanation Family : None STEPHEN RUBIN LPN 09/20/2015 8:29 LIBRARY HISTORIAN Source: [facility] POWERCHART Document Id: [id number] LIBRARY HISTORIAN!42 ARY HISTORIAN documented in this encounter Plan of Treatment Upcoming Encounters Date Type Specialty Care Team Description 08/22/2022 Clinical Communication Admitting/Central Scheduling 08/24/2022 Appointment Radiation Oncology Sue Barry M.D. [address] [place] [address] documented as of this encounter Procedures Procedure Name Priority Date/Time Associated Comments Diagnosis BACTERIAL CULTURE, Routine 09/20/2015 10:14 Resul ts for this AEROBIC, URINE AM LIBRARY HISTORIAN procedure are in the results section. URINALYSIS, MIDSTREAM, Routine 09/20/2015 10:11 R esults for this WITH CULTURE IF AM LIBRARY HISTORIAN procedure ar e in INDICATED the results section. LIPID PANEL, S Routine 09/20/2015 9:10 AM Results for this LIBRARY HISTORIAN procedure are i n the results section. VITAMIN B12 AND Routine 09/20/2015 9:10 AM Result s for this FOLATE, S LIBRARY HISTORIAN procedure are i n the results section. AUTOMATED Routine 09/20/2015 9:10 AM Results f or this DIFFERENTIAL, B LIBRARY HISTORIAN procedure ar e in the results section. 25-HYDROXYVITAMIN D2 Routine 09/20/2015 9:10 AM R esults for this AND D3, S LIBRARY HISTORIAN procedure are i n the results section. CBC WITH DIFFERENTIAL, Routine 09/20/2015 9:10 AM Results for this B LIBRARY HISTORIAN procedure are i n the results section. THYROID-STIMULATING Routine 09/20/2015 9:10 AM Re sults for this HORMONE-SENSITIVE LIBRARY HISTORIAN procedure are in (S-TSH) the results section. HEMOGLOBIN A1C, B Routine 09/20/2015 9:10 AM Resu lts for this LIBRARY HISTORIAN procedure are i n the results section. COMPREHENSIVE Routine 09/20/2015 9:10 AM Results for this METABOLIC PANEL, S/P LIBRARY HISTORIAN procedu re are in the results section. documented in this encounter Results Bacterial Culture, Aerobic, Urine (09/20/2015 10:14 AM LIBRARY HISTORIAN) Analysis Performed At Patho logist Time Signature Bacterial POWERCHART Culture, Aerobic, Urine HXFinal No growth POWERCHART Specimen Anatomical Collection Method Collection Time Receive d Time (Source) Location / / Volume Laterality Urine, First 09/20/2015 10:14 09/20/2015 Voided AM LIBRARY HISTORIAN 10:14 AM LIBRARY HISTORIAN Victor Hugo Renteria APRNN.Lizabeth, M.S.N. LAB MICROB IOLOGY - GENERAL ORDERABLES Performing Organization Address City/[facility]/ZIP Code Phon e Number POWERCHART (ABNORMAL) Urinalysis, Midstream, with culture if indicated (09/20/2015 10:11 AM LIBRARY HISTORIAN) [facility] Method Time Signature Clarity Clear POWERCHART HXUr Color Yellow POWERCHART Specific 1.015 POWERCHART [place], POCT, U pH, POCT, Urine 7.0 POWERCHART [...] Laterality Urine, First 09/20/2015 10:11 Voided AM LIBRARY HISTORIAN Victor Hugo Renteria APRNNAvtar, M.S.N. LAB URINE ORDERABLES Performing Organization Address [facility] Phon e Number POWERCHART Automated Differential (09/20/2015 9:10 AM LIBRARY HISTORIAN) athologist Signature Absolute 3.76 1.70 - POWERCHART Neutrophils 7.00 109L Lymphocytes 1.82 0.90 - POWERCHART 2.90 X109L Monocytes 0.47 0.30 - POWERCHART 0.90 X109L Eosinophils 0.16 0.05 - POWERCHART 0.50 X109L Absolute 0.02 0.00 - POWERCHART Basophil 0.30 X109L Specimen Anatomical Collection Method Collection Time Receive d Time (Source) Location / / Volume Laterality Blood 09/20/2015 9:10 AM 5 9:10 LIBRARY HISTORIAN AM LIBRARY HISTORIAN Abelardo Renteria APRN.N.PAntwan, M.S.N. LAB BLOOD ADD-ON Performing Organization Address City/[facility] Code Phon e Number POWERCHART CBC with Differential (09/20/2015 9:10 AM LIBRARY HISTORIAN) athologist Signature Leukocytes 6.2 3.4 - 10.5 POWERCHART X109L Erythrocytes 4.50 3.90 - 5.03 POWERCHART [id number] Hemoglobin 12.4 12.0 - 15.5 POWERCHART GDL Hematocrit 39.4 34.9 - 44.5 POWERCHART MCV 87.6 82.0 - 98.0 POWERCHART FL HX RDW 14.8 11.9 - 15.5 POWERCHART Platelet Count 315 150 - 450 POWERCHART X109L Specimen (Source) Anatomical Collection Method Collection Time Re ceived Time Location / / Volume Laterality Blood 09/20/2015 9:10 AM LIBRARY HISTORIAN Victor Hugo Renteria APRNNCayla., M.S.N. LAB BLOOD ADD-ON Performing Organization Address City/[facility]/ZIP Code Phon e Number POWERCHART 25-Hydroxyvitamin D2 and D3 (09/20/2015 9:10 AM LIBRARY HISTORIAN) athologist Signature HX25 HYDROXY D2 <4.0 NGML POWERCHART 25-Hydroxy D3 30 NGML POWERCHART Vitamin D, S 30 NGML POWERCHART Comment: REFERENCE VALUE------ 25-HYDROXY D TOTAL (D2+D3) Optimum level s in the healthy population are 20-50, patients with bone disease may benefit from higher levels within this r anh. Test Performed by: [address] [address] Chemist Pharmaceutical: Hermes Lees II, M.D., Ph.D. Specimen (Source) Anatomical Collection Method Collection Time Re ceived Time Location / / Volume Laterality Blood 09/20/2015 9:10 AM LIBRARY HISTORIAN Victor Hugo Renteria APRNN.Amanda., M.S.N. LAB BLOOD ADD-ON Performing Organization Address City/State/ZIP Code Phon e Number POWERCHART Vitamin B12 Level and Folate (09/20/2015 9:10 AM LIBRARY HISTORIAN) P athologist Signature Vitamin B12 245 180 - 914 POWERCHART Assay, S NGL Folate, S 10.9 >=4.0 NGML POWERCHART Specimen (Source) Anatomical Collection Method Collection Time Re ceived Time Location / / Volume Laterality Blood 09/20/2015 9:10 AM LIBRARY HISTORIAN Aneta Michael Whitaker APRN C.N.P., M.S.N. LAB BLOOD NON ADD-ON Performing Organization Address City/State/ZIP Code Phon e Number POWERCHART (ABNORMAL) Lipid Panel (09/20/2015 9:10 AM LIBRARY HISTORIAN) P athologist Signature Calculated LDL 96 <=129 [...] for FH and FDB is available maxim [facility]: FH/ADH Genetic Reflex [place] (test ADHP). Acquired (non-genetic) causes of markedly increased LDL cholesterol include cholestatic liver disease due to the presence of LpX. If a genetic form of hypercholesterolemia is suspected, family studies including biochemical testing fo r lipids (total cholesterol,triglycerides, LDL cholesterol and HDL cholesterol) are recommended. ??Please contact the laboratory at or the on-line test catalog at [employer] for information about how to order [...] / Volume Laterality Blood 09/20/2015 9:10 AM LIBRARY HISTORIAN Abelardo Renteria APRN.N.P., M.S.N. LAB BLOOD ADD-ON Performing Organization Address City/State/ZIP Code Phon e Number POWERCHART Thyroid-Stimulating Hormone-Sensitive (s-TSH) (09/20/2015 9:10 AM LIBRARY HISTORIAN) P athologist Signature TSH 2.68 0.27 - 4.20 POWERCHART (Thyrotropin) MIUL Specimen (Source) Anatomical Collection Method Collection Time Re ceived Time Location / / Volume Laterality Blood 09/20/2015 9:10 AM LIBRARY HISTORIAN Aneta Whitaker APRN C.N.P., M.S.N. LAB BLOOD ADD-ON Performing Organization Address City/State/ZIP Code Phon e Number POWERCHART (ABNORMAL) Hemoglobin A1c (09/20/2015 9:10 AM LIBRARY HISTORIAN) P athologist Signature Hemoglobin A1c, 6.1 (H) <=5.6 A1C POWERCHART B Specimen (Source) Anatomical Collection Method Collection Time Re ceived Time Location / / Volume Laterality Blood 09/20/2015 9:10 AM LIBRARY HISTORIAN Victor Hugo Renteria APRNNCayla., M.S.N. LAB BLOOD ADD-ON Performing Organization Address City/State/ZIP Code Phon e Number POWERCHART (ABNORMAL) CMP (Comprehensive Metabolic Panel) (09/20/2015 9:10 AM LIBRARY HISTORIAN) Patholo gist Method Time Signature Anion Gap 9 [...] POWERCHART GDL HXeGFR (MDRD) >60 >=60 POWERCHART [id number] 2 eGFR Black/ >60 >=60 POWERCHART [place] [employer] [id number] 2 Specimen (Source) Anatomical Collection Method Collection Time Re ceived Time Location / / Volume Laterality Blood 09/20/2015 9:10 AM LIBRARY HISTORIAN Victor Hugo Renteria APRNN.P., M.S.N. LAB BLOOD ADD-ON Performing Organization Address City/State/ZIP Code Phon e Number POWERCHART documented in this encounter Visit Diagnoses Not on filedocumented in this encounter Additional Health Concerns Assessment Noted Time PHQ-9 Depression Total Score: 1 09/20/2015 8:43 AM LIBRARY HISTORIAN documented as of this encounter
--- OUTSIDE RECORDS SUMMARY | 2022-08-14 22:21 | XMS_ITS | Encounter Summary ---
:1940 Author Organization [facility] Address [address] [place] [address] Care Team Providers Name Role Phone Unavailable Primary Care Provider Unavailable Encounter Details Date Type Department Care Team Description 02/05/2017 Hospital Encounter HX [facility] FBK[facility] FAMILYPRA Delbert Whitaker APRN, C.N.P., M.S.N. 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 [...] away from the nail, to see a silo erector and/or get a pedicure to see if they can help with the nail pulling it further. Try this for 2 weeks. See the only one, either the silo erector or the lawn specialist, and then if that is unsuccessful to come back and see me and I can do a partial toenail removal. She verbalized good understanding and agreed to plan. 2. Basal cell, skin. 3. Squamous cell, history of, right forearm. PLAN: Dermatology referral done for [place]. This will be ordered today and processed. Did advise patient that [place] would call her for appointment times but to follow up with me if she had any future healthcare problem or concern. If she did not hear from [place] to also let me know within the next few days and I would help her with the referral process. Antolin Diaz -C./tello Electronically Signed By: DELBERT WHITAKER CNP On: 02/16/2017 02:39 PM Source: [facility] MHSDOLBEYNONRADSYS Document Id: [id number] documented in this encounter Miscellaneous Notes Miscellaneous [...] RUBIN LPN - 02/05/2017 10:07 CDT Source: [facility] [employer] Document Id: [id number] CDT!13 Miscellaneous - Joshua Rubin L.PAntwanNAntwan - 02/05/2017 10:05 AM CDT Adult Associate Professor Of Biostatistics Intake/History Adult Associate Professor Of Biostatistics Intake/History Entered On: 02/05/2017 10:07 CDT Performed [...] Preferred Communication Mode : Verbal Languages : Wallisian Is Patient Female and 13-50 no hysterectomy [...] RUBIN LPN - 02/05/2017 10:05 CDT Source: [facility] [employer] Document Id: [id number] CDT!39 documented in this encounter Plan of Treatment Upcoming Encounters Date Type Specialty Care Team Description 08/22/2022 Clinical Communication Admitting/Central Scheduling 08/24/2022 Appointment Radiation Oncology Sue Barry M.D. [address] [place] [address] documented as of this encounter Visit Diagnoses Not on filedocumented in this encounter
--- OUTSIDE RECORDS SUMMARY | 2022-08-14 22:22 | XMS_ITS | Encounter Summary ---
:1940 Author Organization [facility] Address [address] [place] [address] Care Team Providers Name Role Phone Unavailable Primary Care Provider Unavailable Encounter Details Date Type Department Care Team Description 09/24/2012 Hospital Encounter HX [facility] FBKF FAMILYPRA Naomi Parker, MISA, C.N.P., D. N.P. 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 Pulse - - Temperature - - Respiratory [...] Nurse Only Documentation Entered On: 09/24/2012 8:33 SUPERVISOR [employer]PARTMENT Performed On: 09/24/2012 8:33 SUPERVISOR GRE[employer] DEPARTMENT by TITA CALDWELL Vitals/Ht/Wt Systolic Blood Pressure : 152mmHg (HI) Diastolic Blood Pressure : 92mmHg (>HHI) NIBP Mean : 112mmHg BP Location : Right upper extremity Blood Pressure Cuff Size : Regular TITA CALDWELL - 09/24/2012 8:33 SUPERVISOR [employer]MENT Allergy Allergies (Active) Cats Estimated Onset Date: Unspecified ; Reactions: unknown ; Created By: PHILLIP JARAMILLO MD; Reaction Status: Active ; Category: Other ; Substance: Cats ; Type: Allergy ; Updated By: PHILLIP JARAMILLO; Reviewed Date: 09/12/2012 8:34 SUPERVISOR [employer] Dust Mite Estimated Onset Date: Unspecified ; Created By: KVNG PAULINO LPN; Reaction Status: Active ; Category: Drug ; Substance: Dust Mite ; Type: Allergy ; Updated By: KVNG PAULINO LPN; Reviewed Date: 09/12/2012 8:34 SUPER[employer] prochlorperazine Estimated Onset Date: Unspecified ; Reactions: unknown ; Created By: BRAD JARAMILLO MD; Reaction Status: Active ; Category: Drug ; Substance: prochlorperazine ; Type: Allergy ; Updated By: PHILLIP JARAMILLO MD; Reviewed Date: 09/12/2012 8:34 SUPERVISOR [employer]MENT Source: [facility] POWERCHART Document Id: [id number] documented in this encounter Miscellaneous Notes Miscellaneous - Conversion, Historical Provider Ser - 12/23/2012 11:27 AM CDT Medication Refill Msg Document Contains Addenda Addendum by EBEN JC on 23 December 2012 14:53:55 CDT Rx faxed to pharmacy. Addendum by JONATHON POTTER CNP on 23 December 2012 11:56:58 CDT From: JONATHON POTTER CNP To: DAVID Pascual [facility] Nurse; Sent: 12/23/2012 11:56:58 CDT Subject: FW: Medication Refill Msg Need to refax. She wanted 90 instead of 30 From: KARELY CHOW To: JONATHON POTTER CNP; Sent: 12/23/2012 11:27:19 CDT Subject: Medication Refill Msg Caller is: ( ) Patient ( ) Mother ( ) Father ( ) Spouse ( ) Daughter ( ) Son ( ) Pharmacy ( ) Other: Provider: Pharmacy: [facility] fax# [phone] Name of Medications Needing Refill: Chlorthalidone 25mg tab - patient is requesting 90 day refill. Last refill 12/22/12, #30 Last Refill Date: Additional Information: Last / Future Appointment: Disposition: ( ) Send to Pharmacy ( ) Call to Pharmacy ( ) Patient will bulk picker Script ( ) Mail Rx to Patient Source: [facility] [employer] Document Id: [id number] Miscellaneous - Conversion, Historical Provider Ser - 09/24/2012 3:14 PM [employer]PER[employer] General Message Document Contains Addenda Addendum by KARELY CHOW on 24 September 2012 16:02:46 [employer]PER[employer]OR [employer] From: KARELY CHOW To: JONATHON POTTER CNP; Sent: 09/24/2012 16:02:46 [employer]PER[employer] Subject: RE: General Message Thanks! Addendum by JONATHON POTTER CNP on 24 September 2012 15:58:34 SUPER[employer] From: JONATHON POTTER CNP To: KARELY CHOW; Sent: 09/24/2012 15:58:34 [employer]PER[employer] Subject: RE: General Message Called in 30 day supply to [facility]. From: KARELY CHOW To: JONATHON POTTER CNP; Sent: 09/24/2012 15:14:51 SUPER[employer] Subject: General Message Patient requesting med refills for Lisinopril, levothyroxine, Atenolol from [facility] pharmacy. Looks like her meds were printed off on 09/12/12 but cannot tell if pt has hardcopies or if they were faxed to pharmacy. Called [facility] and they are confused as well since they do not have a current rx for the meds requested. Source: [facility] POWERCHART Document Id: [id number] Miscellaneous - Conversion, Historical Provider Ser - 09/24/2012 8:34 AM SUPERVISOR [employer]MENT Ambulatory Vitals Height Weight Ambulatory Vitals Height Weight Entered On: 09/24/2012 8:35 SUPER[employer]OR [employer] Performed On: 09/24/2012 8:34 SUPERVISOR [employer]MENT by TITA CALDWELL Vitals/Ht/Wt Systolic Blood Pressure : 130mmHg Diastolic Blood Pressure : 80mmHg NIBP Mean : 97mmHg BP Location : Right upper extremity Blood Pressure Cuff Size : Regular TITA CALDWELL - 09/24/2012 8:34 SUPER[employer]OR [employer] Source: [employer] Document Id: [id number] documented in this encounter Plan of Treatment Upcoming Encounters Date Type Specialty Care Team Description 08/22/2022 Clinical Communication Admitting/Central Scheduling 08/24/2022 Appointment Radiation Oncology Sue Barry M.D. [address] [place] [address] documented as of this encounter Visit Diagnoses Not on filedocumented in this encounter
--- OUTSIDE RECORDS SUMMARY | 2022-08-14 22:22 | XMS_ITS | Encounter Summary ---
:1940 Author Organization [facility] Address [address] [place] [address] Care Team Providers Name Role Phone Unavailable Primary Care Provider Unavailable Encounter Details Date Type Department Care Team Description 09/25/2013 Hospital Encounter HX [facility] Naomi Parker, MISA, C.N.P., D. N.P. [address] [place], [place] [address] (Wo rk) Social History [...] Comments Blood Pressure 130/78 09/25/2013 8:26 AM MULTI SPINDLE OPERATOR Pulse 84 09/25/2013 8:26 AM MULTI SPINDLE OPERATOR Temperature - - Respiratory Rate 16 09/25/2013 8:26 AM MULTI SPINDLE OPERATOR Oxygen Saturation - - Inhaled Oxygen Concentration - - Weight 91.9 kg (202 lb 9.6 oz) 09/25/2013 8:26 AM MULTI SPINDLE OPERATOR Height 162.9 cm (5' 4.13) 09/25/2013 8:26 AM MULTI SPINDLE OPERATOR Body Mass Index 34.63 09/25/2013 8:26 AM MULTI SPINDLE OPERATOR documented in this encounter Medications at [...] APRN, C.N.P. - 09/25/2013 8:13 AM CST [id number] CHIEF COMPLAINT/REASON FOR VISIT Annual medication renewal HISTORY OF PRESENT ILLNESS The patient is a 72-year-old female who presents to the clinic for her annual medication renewal. She denies fever, chills, nausea, vomiting, shortness of breath or chest pain. 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 Patient did have a recent asthma exacerbation [...] does spend part of the winter in [place] from November to January. She exercises 4 [...] and she would like this ordered at [facility]. Patient was encouraged to exercise 30 minutes most days a week. Patient was encouraged follow a low-fat diet. Patient was encouraged to wear sunscreen when outside. 2. Asthma control is not indicated today. Patient will continue her prednisone prescribed by [facility]. Patient states she is feeling better; however [...] SKINNER CNP On: 10/02/2013 08:06 AM Source: [facility] MHSDOLBEYNONRADSYS Document Id: [id number] I SPINDLE OPERATOR documented in this encounter Procedure Notes Stephen Rubin L.P.N. - 10/14/2013 1:57 PM CST Asthma Control Test (12 yrs and older) Asthma Control Test (12 yrs and older) Entered On: 10/28/2013 13:57 MULTI SPINDLE OPERATOR Performed On: 10/14/2013 13:57 MULTI SPINDLE OPERATOR by STEPHEN RUBIN ACT Past 4 weeks [...] : 23 STEPHEN RUBIN - 10/28/2013 13:57 MULTI SPINDLE OPERATOR Source: [employer] Document Id: [id number] MULTI SPINDLE OPERATOR!8 I SPINDLE OPERATOR Stephen Rubin L.P.N. - 09/25/2013 8:30 AM CST Asthma Control Test (12 yrs and older) Asthma Control Test (12 yrs and older) Entered On: 09/25/2013 8:31 MULTI SPINDLE OPERATOR Performed On: 09/25/2013 8:30 MULTI SPINDLE OPERATOR by STEPHEN RUBIN ACT Past 4 weeks [...] : 10 STEPHEN RUBIN - 09/25/2013 8:30 MULTI SPINDLE OPERATOR Source: [employer] Document Id: [id number] MULTI SPINDLE OPERATOR!8 I SPINDLE OPERATOR documented in this encounter Miscellaneous Notes Miscellaneous - Jonathon Parker APRN, C.N.P. - 09/28/2013 9:06 AM MULTI SPINDLE OPERATOR Results Notification From: JONATHON SKINNER TEST BAKER To: DAVID Pascual Family Medicine Nurse; Sent: 09/28/2013 09:06:41 MULTI SPINDLE OPERATOR ! Show up: 09/28/2013 15:06:[address] [...] Sensitive-Campos 1.0 mIU/L (0.3-5.0 - ) Source: [facility] POWERCHART Document Id: [id number] Miscellaneous - Jonathon Parker APRN, C.N.P. - 09/25/2013 9:04 AM MULTI SPINDLE OPERATOR Ambulatory Patient Summary [facility] [address] [place] [address] Visit Information Name: AINSLEY AGUAYO [facility] Number: [id number] Visit Date: 09/25/2013 09:04:24 Attending [...] Shortness of breath / Wheezing Routed to [address] [id number] aspirin (aspirin 81 mg oral enteric coated tablet) 1 Tablet(s), Oral, once a day calcium-vitamin D (Calcium 600+D) 1 Tablet(s), Oral, three times a day chlorthalidone (chlorthalidone 25 mg oral tablet) 1 Tablet(s), Oral, once a day Routed to [address] [id number] fluticasone nasal (Flonase 0.05 mg/inh nasal spray) 1 [place](s), Nostrils(Both), once a day Routed [address] [id number] ibuprofen (ibuprofen 200 mg oral tablet) levothyroxine (Synthroid 75 mcg (0.075 mg) oral tablet) 1 Tablet(s), Oral, once a day Routed to [address] [id number] lisinopril (lisinopril 30 mg oral tablet) 1 Tablet(s), Oral, once a day Routed to [place] [address] [place], [place] [id number] loratadine (Claritin 10 mg oral tablet) 1 Tablet(s), Oral, once a day as needed for Allergy symptoms montelukast (Singulair 10 mg oral tablet) 1 Tablet(s), Oral, every evening omega-3 polyunsaturated fatty acids (Fish Oil oral capsule) three times a day pravastatin (pravastatin 40 mg oral tablet) 1.5 Tablet(s), Oral, once a day (at bedtime) New Dose Routed to [place] [address] [place], [place] [phone] predniSONE (predniSONE 10 mg oral tablet) See [...] in case of emergency. Additional Information: Source: [facility] POWERCHART Document Id: [id number] I SPINDLE OPERATOR Miscellaneous - Jonathon Parker APRN, C.N.P. - 09/25/2013 9:04 AM MULTI SPINDLE OPERATOR Ambulatory Depart Summary [address] [address] Visit Information Name: DEDE JOSI [facility] Number: [id number] Visit Date: 09/25/2013 09:04:20 Attending [...] Shortness of breath / Wheezing Routed to [address] [id number] aspirin (aspirin 81 mg oral enteric coated tablet) 1 Tablet(s), Oral, once a day calcium-vitamin D (Calcium 600+D) 1 Tablet(s), Oral, three times a day chlorthalidone (chlorthalidone 25 mg oral tablet) 1 Tablet(s), Oral, once a day Routed to [address] [id number] fluticasone nasal (Flonase 0.05 mg/inh nasal spray) 1 [place](s), Nostrils(Both), once a day Routed [address] [id number] ibuprofen (ibuprofen 200 mg oral tablet) levothyroxine (Synthroid 75 mcg (0.075 mg) oral tablet) 1 Tablet(s), Oral, once a day Routed to [address] [id number] lisinopril (lisinopril 30 mg oral tablet) 1 Tablet(s), Oral, once a day Routed to [address] [id number] loratadine (Claritin 10 mg oral tablet) 1 Tablet(s), Oral, once a day as needed for Allergy symptoms montelukast (Singulair 10 mg oral tablet) 1 Tablet(s), Oral, every evening omega-3 polyunsaturated fatty acids (Fish Oil oral capsule) three times a day pravastatin (pravastatin 40 mg oral tablet) 1.5 Tablet(s), Oral, once a day (at bedtime) New Dose Routed to [place] [address] [place], [place] [phone] predniSONE (predniSONE 10 mg oral tablet) See [...] in case of emergency. Additional Information: Source: [facility] POWERCHART Document Id: [id number] I SPINDLE OPERATOR Miscellaneous - Stephen Rubin, L.P.N. - 09/25/2013 9:00 AM CST PHQ-9 PHQ-9 Entered On: 09/25/2013 11:01 MULTI SPINDLE OPERATOR Performed On: 09/25/2013 9:00 MULTI SPINDLE OPERATOR by STEPHEN RUBIN PHQ-9 Little interest or [...] at all STEPHEN RUBIN - 09/25/2013 11:01 MULTI SPINDLE OPERATOR Source: [facility] POWERCHART Document Id: [id number] MULTI SPINDLE OPERATOR!13 I SPINDLE OPERATOR Miscellaneous - Jonathon Parker APRN, C.NAntwanPAntwan - 09/25/2013 8:40 AM MULTI SPINDLE OPERATOR Reminder Msg Document Contains Addenda Addendum by STEPHEN RUBIN LPN on 04 January 2014 14:19:15 CDT completed. From: JONATHON SKINNER TEST BAKER To: DAVID Pascual [facility] Medicine Nurse; Sent: 09/25/2013 08:40:11 MULTI SPINDLE OPERATOR Show up: 12/19/2013 08:38:00 CDT Subject: Reminder Msg Please Remember to: Please call patient and set up Mammogram in [facility]. (last one was 20 January 2014, so after this date) PATIENT: ( ) Call Patient ( ) Ask Patient to ( ) ( ) Call Relative ( ) Schedule Patient ( ) ( ) Call for Operator Vacuum ( ) Follow up on Results ( ) Other: PROVIDER: ( ) Call Physician ( ) Call Pharmacist ( ) Call Lab ( ) Other: Special Instructions: Comments: Source: [facility] [employer] Document Id: [id number] Miscellaneous - Stephen Rubin, L.P.N. - 09/25/2013 8:26 AM CST Adult Position Classifier Intake/History Adult Position Classifier Intake/History Entered On: 09/25/2013 8:28 MULTI SPINDLE OPERATOR Performed On: 09/25/2013 8:26 MULTI SPINDLE OPERATOR by STEPHEN RUBIN Intake Chief Complaint : [...] 34.63 kg/m2 STEPHEN RUBIN - 09/25/2013 8:26 MULTI SPINDLE OPERATOR General Info Information Given By : Patient Languages : Frisian STEPEHN RUBIN 09/25/2013 8:26 MULTI SPINDLE OPERATOR Subjective Pain Symptoms : No STEPHEN RUBIN - 09/25/2013 8:26 MULTI SPINDLE OPERATOR Dependent Habits Tobacco Use/Currently Using : No Tobacco Use/Last 12 months : No Tobacco Use/Advised to Quit : No Exposure to Tobacco Smoke : Other: Never Smoked Smoking Status : Never smoker STEPHEN RUBIN 09/25/2013 8:26 MULTI SPINDLE OPERATOR Caffeine Use Grid Caffeine Use : Current Type : Coffee, Soft drinks Frequency : Daily Amount : 1 cup & 2 cans STEPHEN RUBIN - 09/25/2013 8:26 MULTI SPINDLE OPERATOR Recreational Drug Use Grid Drug Use : None STEPHEN RUBIN - 09/25/2013 8:26 MULTI SPINDLE OPERATOR Source: [employer] Document Id: [id number] MULTI SPINDLE OPERATOR!37 I SPINDLE OPERATOR Miscellaneous - Stephen Rubin L.P.N. - 09/25/2013 8:26 AM CST Health Assessment Health Assessment Entered On: 09/25/2013 8:30 MULTI SPINDLE OPERATOR Performed On: 09/25/2013 8:26 MULTI SPINDLE OPERATOR by STEPHEN RUBIN Health Assessment Complete Health Assessment Complete or Modified : Annual Health Assessment Annual Health Assessment Completed : Yes STEPHEN RUBIN - 09/25/2013 8:26 MULTI SPINDLE OPERATOR Nutrition Nutrition Risk Factors by History Adult : None STEPHEN RUBIN 09/25/2013 8:26 MULTI SPINDLE OPERATOR Functional Current Daily Living Assistance : None STEPHEN RUBIN - 09/25/2013 8:26 MULTI SPINDLE OPERATOR Dependent Habits Tobacco Use/Currently Using : No Tobacco Use/Last 12 months : No Tobacco Use/Advised to Quit : No Exposure to Tobacco Smoke : Other: Never Smoked Smoking Status : Never smoker Alcohol Use : Yes STEPHEN RUBIN - 09/25/2013 8:26 MULTI SPINDLE OPERATOR Caffeine Use Grid Caffeine Use : Current Type : Soft drinks Frequency : Daily Amount : 1 can diet soda STEPHEN RUBIN - 09/25/2013 8:26 MULTI SPINDLE OPERATOR Recreational Drug Use Grid Drug Use : None STEPHEN RUBIN 09/25/2013 8:26 MULTI SPINDLE OPERATOR AUDIT Tool How Often Do You Have A Drink : 2 to 4 times a month How Many Drinks in a Day When Drinking : 1 or 2 Six or More Drinks On One Occassion : Never Audit Phase 1 Score : 2 STEPHEN RUBIN 09/25/2013 8:26 MULTI SPINDLE OPERATOR Psychosocial Domestic Abuse Concerns : None Marital Status : Years of Marriage : 3 Number of Children : 1 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 STEPHEN RUBIN 09/25/2013 8:26 MULTI SPINDLE OPERATOR Advance Directive Advanced Directives : No STEPHEN RUBIN 09/25/2013 8:26 MULTI SPINDLE OPERATOR Educ Needs Learning Style Preference Adult Grid Patient : Demonstration, Printed materials, Verbal explanation, Video/Educational TV Family : Demonstration, Printed materials, Verbal explanation, Video/Educational TV STEPHEN RUBIN 09/25/2013 8:26 MULTI SPINDLE OPERATOR Source: [facility] [employer] Document Id: [id number] MULTI SPINDLE OPERATOR!42 I SPINDLE OPERATOR documented in this encounter Plan of Treatment Upcoming Encounters Date Type Specialty Care Team Description 08/22/2022 Clinical Communication Admitting/Central Scheduling 08/24/2022 Appointment Radiation Oncology Sue Barry M.D. [address] [place] [address] documented as of this encounter Procedures Procedure Name Priority Date/Time Associated Comments Diagnosis LIPID PANEL, S Routine 09/25/2013 9:39 Results fo r this AM MULTI SPINDLE OPERATOR procedure are i n the results section. THYROID FUNCTION Routine 09/25/2013 9:39 Results for this CASCADE, S AM MULTI SPINDLE OPERATOR procedure are i n the results section. ASPARTATE Routine 09/25/2013 9:39 Results for this AMINOTRANSFERASE (AST), AM MULTI SPINDLE OPERATOR proc edure are in S/P the results section. BASIC METABOLIC PANEL, Routine 09/25/2013 9:39 Re sults for this S/P AM MULTI SPINDLE OPERATOR procedure are i n the results section. documented in this encounter Results Thyroid Function [place] (09/25/2013 9:39 AM MULTI SPINDLE OPERATOR) athologist Signature TSH, Sensitive 1.0 0.3 - 5.0 POWERCHART MIUL Comment: Test Performed by: [place] [address] Catastrophe Claims Supervisor: Michael marquis III, M.D. Specimen (Source) Anatomical Collection Method Collection Time Re ceived Time Location / / Volume Laterality Blood 09/25/2013 9:39 AM MULTI SPINDLE OPERATOR Abelardo Bullock APRN.N.P., D.N.P. LAB BLOOD ADD-ON Performing Organization Address City/[facility] Code Phon e Number POWERCHART (ABNORMAL) BMP (Basic Metabolic Panel) (09/25/2013 9:39 AM MULTI SPINDLE OPERATOR) athologist Signature BUN (Blood Urea 16 6 [...] / Volume Laterality Blood 09/25/2013 9:39 AM MULTI SPINDLE OPERATOR Abelardo Bullock APRN.N.P., D.N.P. LAB BLOOD ADD-ON Performing Organization Address City/State/ZIP Code Phon e Number POWERCHART AST (Aspartate Aminotransferase) (09/25/2013 9:39 AM MULTI SPINDLE OPERATOR) [facility] gist Method Time Signature Aspartate 18 8 - 43 POWERCHART Aminotransferase UNITL (AST), S Specimen (Source) Anatomical Collection Method Collection Time Re ceived Time Location / / Volume Laterality Blood 09/25/2013 9:39 AM MULTI SPINDLE OPERATOR Jonathon Parker APRN, C.N.P., D.N.P. LAB BLOOD ADD-ON Performing Organization Address City/State/ZIP Code Phon e Number POWERCHART (ABNORMAL) Lipid Panel (09/25/2013 9:39 AM MULTI SPINDLE OPERATOR) [facility] [employer] Method Time Signature Cholesterol, Total 178 0 - 200 POWERCHART MGDL HX HDL 42.0 40.0 - POWERCHART 60.0 MGDL Triglycerides 172 (H) 0 - 150 POWERCHART MGDL Calculated LDL 102 (H) 0 - 100 POWERCHART MGDL Specimen (Source) Anatomical Collection Method Collection Time Re ceived Time Location / / Volume Laterality Blood 09/25/2013 9:39 AM MULTI SPINDLE OPERATOR Jonathon Parker APRN, C.N.P., D.N.P. LAB BLOOD ADD-ON Performing Organization Address City/State/ZIP Code Phon e Number POWERCHART documented in this encounter Visit Diagnoses Not on filedocumented in this encounter
--- OUTSIDE RECORDS SUMMARY | 2022-08-14 22:22 | XMS_ITS | Encounter Summary ---
:1940 Author Organization [facility] Address [address] [place] [address] Care Team Providers Name Role Phone Unavailable Primary Care Provider Unavailable Encounter Details Date Type Department Care Team Description 04/22/2014 Hospital Encounter HX [facility] Naomi Parker, MISA, C.N.P., D. N.P. [address] [place], [place] [address] (Wo rk) Social History [...] Body Mass Index 35.16 09/25/2013 8:[address] documented in this encounter Medications at Time [...] APRN, C.N.P. - 04/22/2014 9:41 AM CDT [id number] CHIEF COMPLAINT/REASON FOR VISIT Sore hand. HISTORY [...] SKINNER CNP On: 05/28/2014 04:37 PM Source: [facility] MHSDOLBEYNONRADSYS Document Id: [id number] documented in this encounter Miscellaneous Notes Miscellaneous - Jonathon Parker APRN, C.N.P. - 04/22/2014 11:37 AM CDT Ambulatory Patient Summary [address] [id number] Visit Information Name: DEDEAINSLEY [facility] Number: [id number] Visit Date: 04/22/2014 11:37:03 Attending [...] nasal (Flonase 0.05 mg/inh nasal spray) 1 [place](s), Nostrils(Both), once a day hydrochlorothiazide (hydrochlorothiazide 25 [...] CNP Signed On:22-APR-2014 11:36:51 Additional Information: Source: [facility] POWERCHART Document Id: [id number] Miscellaneous - Jonathon Parker APRN C.N.P. - 04/22/2014 11:37 AM CDT Ambulatory Discharge Medication List [address] [id number] Visit Information Name: AINSLEY AGUAYO [facility] Number: [id number] Visit Date: 04/22/2014 11:37:01 Attending [...] nasal (Flonase 0.05 mg/inh nasal spray) 1 [place](s), Nostrils(Both), once a day hydrochlorothiazide (hydrochlorothiazide 25 [...] of emergency. Electronically Signed By: JONATHON SKINNER METAL OR WOOD BLOCKER Signed On:22-APR-2014 11:36:51 Additional Information: Source: [facility] POWERCHART Document Id: [id number] Electronically signed by Jonathon Parker, WIND TURBINE BLADE REPAIR TECHNICIAN, C.N.P., D.N.P. at 04/22/2014 11:37 AM CDT Miscellaneous - Stephen Rubin, L.P.N. - 04/22/2014 9:51 AM CDT Adult Computer Terminal Operator Intake/History Adult Computer Terminal Operator Intake/History Entered On: 04/22/2014 9:53 CDT Performed [...] Communication Mode : Verbal Languages : Swedish STEPHEN RUBIN LPN - 04/22/2014 9:51 CDT Subjective Pain Symptoms : Yes STEPHEN RUBIN LPN 04/22/2014 9:51 CDT Pain Pain Assessment Grid Pain 1 Location : Hand Laterality : Left Intensity : 8 (Comment: states does not hurt if not moving it. States pain is a 8 with ROM [STEPHEN RUBIN LPN - 04/22/2014 9:51 CDT] ) Duration : 04/06/14 STEPHEN RUBIN LPN 04/22/2014 9:51 CDT Dependent Habits Tobacco Use/Currently Using : No Tobacco Use/Last 12 months : No Tobacco Use/Advised to Quit : No Exposure to Tobacco Smoke : Other: Never Smoked Smoking Status : Never smoker STEPHEN RUBIN LPN 04/22/2014 9:51 CDT Caffeine Use Grid Caffeine Use : Current Type : Soft drinks Frequency : Daily Amount : 1 can diet soda STEPHEN RUBIN LPN - 04/22/2014 9:51 CDT Recreational Drug Use Grid Drug Use : None STEPHEN RUBIN LPN 04/22/2014 9:51 CDT Source: [employer] Document Id: [id number] CDT!43 documented in this encounter Plan of Treatment Upcoming Encounters Date Type Specialty Care Team Description 08/22/2022 Clinical Communication Admitting/Central Scheduling 08/24/2022 Appointment Radiation Oncology Sue Barry M.D. [address] [place] [id number] documented as of this encounter Procedures Procedure [...] 04/22/2014 10:51 AM CDT Addenda Addendum by Ned Rai M.D. o n 04/22/2014 10:51 AM CDT RAD^^^OW XR Hand Left 3 or more views 04/22/2014 10:51:10 Addendum by Provider, Cristiana Marino o n 04/22/2014 10:51 AM CDT RAD^^^MA XR Hand Left 3 or more views 04/22/2014 10:51:10 Narrative 04/22/2014 10:41 AM CDT Exam: ?XR Hand Left 3 or more views Clinical history: ??Hand pain [id number] s/ p fall (pain as base of [...] or more views Clinical history: Hand pain [id number] s/p fall (pain as base of palm [...] and wrist as described above. Alison Farmer(R), R.T.(R)(M) IMG DIAGNOSTIC IM AGING PROCEDURES documented in this encounter Visit Diagnoses Not on filedocumented in this encounter
--- OUTSIDE RECORDS SUMMARY | 2022-08-14 22:22 | XMS_ITS | Encounter Summary ---
:1940 Author Organization [facility] Address [address] [place] [address] Care Team Providers Name Role Phone Unavailable Primary Care Provider Unavailable Encounter Details Date Type Department Care Team Description 11/26/2014 Hospital Encounter [facility]X [facility] FB[facility] FAMILYPRA Jack Apodaca i, M.D. [address] [place] [address] (Wo rk) Social History Tobacco [...] Comments Blood Pressure 134/80 11/26/2014 11:47 AM COUTURIERE Pulse 84 11/26/2014 11:47 AM COUTURIERE Temperature - - Respiratory Rate 16 11/26/2014 11:47 AM COUTURIERE Oxygen Saturation - - Inhaled Oxygen Concentration - - Weight 93 kg (205 lb 0.4 oz) 11/26/2014 11:47 AM COUTURIERE Height - - Body Mass Index 35.88 10/15/2014 11:45 AM COUTURIERE documented in this encounter Medications at Time [...] Lopez M.D. - 11/26/2014 11:02 AM CST [id number] CHIEF COMPLAINT/ REASON FOR VISIT Followup knee arthroplasty HISTORY OF PRESENT ILLNESS Ainsley is a 74-year -old female who presents to the clinic today for followup knee arthroplasty. She was seen on 11/18 with a followup for a recent left knee arthroplasty where her prescription for [place] was renewed. She notices that her knee is very tender and will be tender even with light brushing from clothing. She has questions regarding her medications for pain management. She is currently taking one [place] twice daily with Tylenol at other times. [...] as outlined in the EMR including 1. [place] 0.5 tablet twice daily ALLERGIES Cats-unknown Prochlorperazine-unknown [...] IMPRESSION/REPORT/PLAN 1. Followup of recent knee arthroplasty. Hammondsport medication was decreased as above. She may [...] behalf by Selin Holloway, a trained medical claims examiner. The creation of this record is based on the scribe's personal observations and the provider's statements to them. This document has been denise cked and approved by the attending provider. Jack Martin M.D./denis Electronically Signed By: JACK LOPEZ MD On: 12/10/2014 08:41 AM Source: [facility] MHSDOLBEYNONRADSYS Document Id: [id number] URIERE documented in this encounter Miscellaneous Notes Telephone [...] appiontment status. From: JEREMIAH ELLSWORTH (DAVID Pascual Heater Operator Helper) To: DAVID Pascual Family Medicine Nurse; Sent: 12/20/2014 15:18:15 CDT Subject: *Phone Message Caller is: (x ) Patient ( ) Mother ( ) Father ( ) Spouse ( ) Daughter ( ) Son ( ) Pharmacy ( ) Other: Physician: Patient MRN #: Reason for Call: Patient is wondering if her Mammogram in [place] was scheduled? What day and time? [phone] Message: Advice/Action: Source used: ( ) Verbalizes [...] back cell phone number ( ) Source: [facility] POWERCHART Document Id: [id number] Miscellaneous - Jack Lopez M.D. - 11/27/2014 12:07 AM COUTURIERE Ambulatory Patient Summary [address] [id number] Visit Information Name: AINSLEY AGUAYO [facility] Number: [id number] Current Date: 11/27/2014 00:07:18 [...] nasal (Flonase 0.05 mg/inh nasal spray) 1 Milford(s), Nostrils(Both), once a day hydrochlorothiazide (hydrochlorothiazide 25 mg oral tablet) 1 Tablet(s), Oral, once a day HYDROcodone-acetaminophen ([place] 5 mg-325 mg oral tablet) 1 Tablet(s), [...] appointment detail needed. Your Goals/Additional instructions: Source: [facility] POWERCHART Document Id: [id number] URIERE Miscellaneous - Jack Lopez M.D. - 11/27/2014 12:07 AM COUTURIERE Ambulatory Discharge Medication List [address] [id number] Visit Information Name: AINSLEY AGUAYO [facility] Number: [id number] Visit Date: 11/27/2014 00:07:17 Attending Provider: JACK LOPEZ MD Primary Care Provider: JACK LOPEZ MD ARNOLBobbiGARCIA AINSLEY HERMAN has been given the following list of [...] nasal (Flonase 0.05 mg/inh nasal spray) 1 Milford(s), Nostrils(Both), once a day hydrochlorothiazide (hydrochlorothiazide 25 mg oral tablet) 1 Tablet(s), Oral, once a day HYDROcodone-acetaminophen ([place] 5 mg-325 mg oral tablet) 1 Tablet(s), [...] MD Signed On:27-NOV-2014 00:07:04 Additional Information: Source: [facility] POWERCHART Document Id: [id number] URIERE Miscellaneous - Conversion, Historical Provider Ser - 11/26/2014 11:47 AM COUTURIERE Adult Personal Counselor Intake/History Adult Personal Counselor Intake/History Entered On: 11/26/2014 11:48 COUTURIERE Performed On: 11/26/2014 11:47 COUTURIERE by JOE RAZA LPN Intake Chief Complaint [...] 93 kg JOE RAZA LPN 11/26/2014 11:47 COUTURIERE General Info Information Given By : Patient Languages : Uzbek Is Patient Female and 13-50 no hysterectomy : No JOE RAZA [facility] 11/26/2014 11:47 COUTURIERE Subjective Pain Symptoms : Yes JOE RAZA [facility] 11/26/2014 11:47 COUTURIERE Pain Scale Pain Scale Verbal 0-10 : Open JOE RAZA [facility] 11/26/2014 11:47 COUTURIERE Pain Pain Assessment Grid Pain 1 Location : Knee Laterality : Left JOE RAZA [facility] 11/26/2014 11:47 COUTURIERE Dependent Habits Tobacco Use/Currently Using : No Exposure to Tobacco Smoke : Other: Never Smoked Smoking Status : Never smoker JOE RAZA [facility] 11/26/2014 11:47 COUTURIERE Caffeine Use Grid Caffeine Use : Current Type : Soft drinks Frequency : Daily Amount : 1 can diet soda Last Use : 09/15/14 JOE RAZA [facility] 11/26/2014 11:47 COUTURIERE Recreational Drug Use Grid Drug Use : None JOE RAZA [facility] 11/26/2014 11:47 COUTURIERE ID Screen Drug Resistant Organism : No Travel Within Last 21 Days : No JOE RAZA [facility] 11/26/2014 11:47 COUTURIERE [facility] Document Id: [id number]!43 documented in this encounter Plan of Treatment Upcoming Encounters Date Type Specialty Care Team Description 08/22/2022 Clinical Communication Admitting/Central Scheduling 08/24/2022 Appointment Radiation Oncology Sue Barry M.D. [address] [place] [phone] documented as of this encounter Procedures Procedure Name Priority Date/Time Associated Diagnosis Comme nts BACTERIAL CULTURE, Routine 11/26/2014 12:30 PM Re sults for this AEROBIC, URINE COUTURIERE procedure are in the results section. documented in this encounter Results Bacterial Culture, Aerobic, Urine (11/26/2014 12:30 PM COUTURIERE) Patholo gist Method Time Signature Bacterial POWERCHART Culture, Aerobic, Urine HXFinal Mixed eros. No POWERCHART further studies unless notified. HXFinal [place]ock POWERCHART Microbiology laboratory [phone]. Specimen (Source) Anatomical Collection Method Collection Time Re ceived Time Location / / Volume Laterality Urine, First 11/26/2014 12:30 Voided PM COUTURIERE Jack Root M.D. LAB MICROBIOLOGY - GEN ERAL ORDERABLES Performing Organization Address City/State/ZIP Code Phon e Number POWERCHART documented in this encounter Visit Diagnoses Not on filedocumented in this encounter Additional Health Concerns Assessment Noted Time PHQ-9 Depression Total Score: 1 09/16/2014 9:15 AM COUTURIERE documented as of this encounter
--- OUTSIDE RECORDS SUMMARY | 2022-08-14 22:22 | XMS_ITS | Encounter Summary ---
:1940 Author Organization [facility] Address [address] [place] [address] Care Team Providers Name Role Phone Unavailable Primary Care Provider Unavailable Encounter Details Date Type Department Care Team Description 11/26/2014 Hospital Encounter HX NO MAPPING Anabella Root M.D. [address] [place], [place] [phone] (Wo rk) Social History [...] Historical Provider Ser - 11/26/2014 11:59 PM SCHOOL BUS DISPATCHER Coding Summary-Paper Based CODING DATE: 12/03/2014 FINAL [facility] STATUS: * Discharged to Home or Self [...] ALVARENGA Date Saved: 12/03/2014 06:42 pm [facility] Document Id: [id number] documented in this encounter Plan of Treatment Upcoming Encounters Date Type Specialty Care Team Description 08/22/2022 Clinical Communication Admitting/Central Scheduling 08/24/2022 Appointment Radiation Oncology Sue Barry M.D. [address] [place] [address] documented as of this encounter Visit Diagnoses Not on filedocumented in this encounter Additional Health Concerns Assessment Noted Time PHQ-9 Depression Total Score: 1 09/16/2014 9:15 AM SCHOOL BUS DISPATCHER documented as of this encounter
--- OUTSIDE RECORDS SUMMARY | 2022-08-14 22:22 | XMS_ITS | Encounter Summary ---
:1940 Author Organization [facility] Address [address] [place] [address] Care Team Providers Name Role Phone Unavailable Primary Care Provider Unavailable Encounter Details Date Type Department Care Team Description 09/12/2012 Hospital Encounter HX [facility] FBKF FAMILYPRA Naomi Parker, MISA, C.N.P., D. N.P. [address] [place], [place] [address] (Wo rk) Social History [...] Comments Blood Pressure 130/84 09/12/2012 8:37 AM CASHIER HOST/HOSTESS Pulse 68 09/12/2012 8:37 AM CASHIER HOST/HOSTESS Temperature - - Respiratory Rate 16 09/12/2012 8:37 AM CASHIER HOST/HOSTESS Oxygen Saturation - - Inhaled Oxygen Concentration - - Weight 88.5 kg (195 lb 1.7 oz) 09/12/2012 8:37 AM CASHIER HOST/HOSTESS Height 162.2 cm (5' 3.86) 09/12/2012 8:37 AM CASHIER HOST/HOSTESS Body Mass Index 33.64 09/12/2012 8:37 AM CASHIER HOST/HOSTESS documented in this encounter Medications at Time [...] APRN, C.N.P. - 09/12/2012 8:28 AM CST [id number] CHIEF COMPLAINT/REASON FOR VISIT Annual exam HISTORY OF PRESENT ILLNESS The patient is a 71-year-old female who presents to the clinic for her annual exam. Patient has a history of obesity and is currently following the Weight Watchers diet. Patient is also exercising fivetimes a week by using treadmill and weights. Patient's mammogram is due in October. However, she will be in [place] at this time. Patient is debating whether or not to have her mammogram done in [place] or when she returns in January. Patient [...] history of asthma and is followed by [facility] senior account executive. She also has a history of hyperlipidemia [...] Patient will schedule her mammogram in [place] in October, otherwise she will complete it [...] SKINNER CNP On: 09/15/2012 10:06 AM Source: [facility] MHSDOLBEYNONRADSYS Document Id: [id number] IER HOST/HOSTESS documented in this encounter Miscellaneous Notes Miscellaneous [...] Call to Pharmacy ( ) Patient will belt picker Script ( ) Mail Rx to Patient Source: [facility] Serene OncologyCHART Document Id: [id number] Electronically signed by Nikos [facility] Swimming Professor [id number] at 03/10/2017 12:45 AM CDT Miscellaneous - Jonathon Parker APRN, C.N.P. - 09/12/2012 12:10 PM CASHIER HOST/HOSTESS Quality Measures Quality Measures Entered On: 09/12/2012 12:11 CASHIER HOST/HOSTESS Performed On: 09/12/2012 12:10 CASHIER HOST/HOSTESS by JONATHON SKINNER CNP Asthma Asthma Control Test (ACT) Score : 23 ED visits past yr for asthma w/o hospital stay : 0 Hospitalizations/Overnight Stays in Past yr for Asthma : 0 Asthma Action Plan Provided/Reviewed : Reviewed with the patient Asthma Action Plan Copy : Scanned into EMR JONATHON SKINNER CNP - 09/12/2012 12:10 CASHIER HOST/HOSTESS Source: [facility] Serene OncologyCHART Document Id: [id number] IER HOST/HOSTESS Miscellaneous - Jonathon Parker APRN C.N.P. - 09/12/2012 12:03 PM CASHIER HOST/HOSTESS Ambulatory Patient Summary [facility] [address] [place] [address] Visit Information Name: AINSLEY AGUAYO [facility] Number: [id number] Current Date: 09/12/2012 12:02:59 [...] FamilyPrac BP Recheck Your Goals/Additional instructions: Source: [facility] POWERCHART Document Id: [id number] IER HOST/HOSTESS Miscellaneous - Jonathon Parker APRN, C.N.P. - 09/12/2012 12:02 PM CASHIER HOST/HOSTESS Ambulatory Depart Summary [address] [id number] Visit Information Name: AINSLEY AGUAYO [facility] Number: [id number] Visit Date: 09/12/2012 12:02:58 [...] your provider for clarification. Additional Information: Source: [facility] POWERCHART Document Id: [id number] IER HOST/HOSTESS Miscellaneous - Conversion, Historical Provider Ser - 09/12/2012 8:43 AM CASHIER HOST/HOSTESS Health Assessment Health Assessment Entered On: 09/12/2012 8:44 CASHIER HOST/HOSTESS Performed On: 09/12/2012 8:43 CASHIER HOST/HOSTESS by TITA CALDWELL Health Assessment Complete Health Assessment Complete or Modified : Modified Health Assessment TITA CALDWELL - 09/12/2012 8:43 CASHIER HOST/HOSTESS Nutrition Nutrition Risk Factors by History Adult : None TITA CALDWELL - 09/12/2012 8:43 CASHIER HOST/HOSTESS Functional Living Situation : Home independently Current Daily Living Assistance : None TITA CALDWELL - 09/12/2012 8:43 CASHIER HOST/HOSTESS Dependent Habits Tobacco Use/Currently Using : No Exposure to Tobacco Smoke : Other: Never Smoked Smoking Status : Never smoker Alcohol Use : Yes TITA CALDWELL - 09/12/2012 8:43 CASHIER HOST/HOSTESS Caffeine Use Grid Caffeine Use : Current Type : Coffee, Soft drinks Frequency : Daily Amount : 1 cup & 2 cans TITA CALDWELL - 09/12/2012 8:43 CASHIER HOST/HOSTESS Recreational Drug Use Grid Drug Use : None HUAHSANAYLASACHA Lindsay - 09/12/2012 8:43 CASHIER HOST/HOSTESS AUDIT Tool How Often Do You Have A Drink : Monthly or less How Many Drinks in a Day When Drinking : 1 or 2 Six or More Drinks On One Occassion : Never Audit Phase 1 Score : 1 AYLA CALDWELLSACHA Lindsay 09/12/2012 8:43 CASHIER HOST/HOSTESS Psychosocial Domestic Abuse Concerns : None Number of Children : 1 son 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 TITA CALDWELL 09/12/2012 8:43 CASHIER HOST/HOSTESS Advance Directive Advanced Directives : No TITA CALDWELL 09/12/2012 8:43 CASHIER HOST/HOSTESS Educ Needs Learning Style Preference Adult Grid Patient : None Family : None TITA CALDWELL 09/12/2012 8:43 CASHIER HOST/HOSTESS [facility] Document Id: [id number] Miscellaneous - Conversion, Historical Provider Ser - 09/12/2012 8:37 AM CASHIER HOST/HOSTESS Adult Senior Stack Engineer Intake/History Adult Senior Stack Engineer Intake/History Entered On: 09/12/2012 8:42 CASHIER HOST/HOSTESS Performed On: 09/12/2012 8:37 CASHIER HOST/HOSTESS by TITA CALDWELL Intake Chief Complaint : [...] 2.00 Body Mass Index : 33.64kg/m2 JAVI AYALSACHA Lindsay 09/12/2012 8:37 CASHIER HOST/HOSTESS Subjective Pain Symptoms : No TITA CALDWELL 09/12/2012 8:37 CASHIER HOST/HOSTESS Dependent Habits Tobacco Use/Currently Using : No Exposure to Tobacco Smoke : Other: Never Smoked Smoking Status : Never smoker TITA CALDWELL - 09/12/2012 8:37 CASHIER HOST/HOSTESS Caffeine Use Grid Caffeine Use : Current Type : Coffee, Soft drinks Frequency : Daily Amount : 1 cup & 2 cans Last Use : yesterday after noon TITA CALDWELL - 09/12/2012 8:37 CASHIER HOST/HOSTESS Recreational Drug Use Grid Drug Use : None TITA CALDWELL - 09/12/2012 8:37 CASHIER HOST/HOSTESS Allergy Allergies (Active) Cats Estimated Onset Date: Unspecified ; Reactions: unknown ; Created By: PHILLIP JARAMILLO MD; Reaction Status: Active ; Category: Other ; Substance: Cats ; Type: Allergy ; Updated By: PHILLIP JARAMILLO; Reviewed Date: 09/12/2012 8:34 CASHIER HOST/HOSTESS Dust Mite Estimated Onset Date: Unspecified ; Created By: KVNG PAULINO LPN; Reaction Status: Active ; Category: Drug ; Substance: Dust Mite ; Type: Allergy ; Updated By: KVNG PAULINO LPN; Reviewed Date: 09/12/2012 8:34 CASHIER HOST/HOSTESS prochlorperazine Estimated Onset Date: Unspecified ; Reactions: unknown ; Created By: BRAD JARAMILLO MD; Reaction Status: Active ; Category: Drug ; Substance: prochlorperazine ; Type: Allergy ; Updated By: PHILLIP JARAMILLO MD; Reviewed Date: 09/12/2012 8:34 CASHIER HOST/HOSTESS Source: [facility] [employer] Document Id: [id number] documented in this encounter Plan of Treatment Upcoming Encounters Date Type Specialty Care Team Description 08/22/2022 Clinical Communication Admitting/Central Scheduling 08/24/2022 Appointment Radiation Oncology Sue Barry M.D. [address] [place] [phone] documented as of this encounter Visit Diagnoses Not on filedocumented in this encounter
--- OUTSIDE RECORDS SUMMARY | 2022-08-14 22:22 | XMS_ITS | Encounter Summary ---
:1940 Author Organization [facility] Address [address] [place] [address] Care Team Providers Name Role Phone Unavailable Primary Care Provider Unavailable Encounter Details Date Type Department Care Team Description 03/09/2014 Hospital Encounter HX [facility] FBKF FAMILYPRA Naomi Parker, MISA, C.N.P., D. N.P. [address] [place], [place] [address] (Wo rk) Social History [...] Body Mass Index 35.2 09/25/2013 8:26 AM INSTITUTE DIRECTOR documented in this encounter Medications at Time [...] were injected. Band-Aid was applied. No complications. [place] protocol was followed and please see universal protocol sheet scanned into EMR. Patient was instructed to call immediately if she develops redness, pain, or swelling. Patient verbalizes understanding and agrees with plan of care. Elizabeth Skinner CNP/tello Electronically Signed By: ELIZABETH SKINNER CNP On: 05/27/2014 06:24 PM Modified by and Electronically Signed by: ELIZABETH SKINNER CNP On: 05/27/2014 06:24 PM Source: [facility] MHSDOLBEYNONRADSYS Document Id: [id number] documented in this encounter Miscellaneous Notes Miscellaneous - Joshua Rubin, L.P.N. - 03/09/2014 3:00 PM CDT Adult Hub Cutter Intake/History Adult Hub Cutter Intake/History Entered On: 03/09/2014 15:01 CDT Performed On: 03/09/2014 15:00 CDT by ERICHSEN, DWYN E BAND MASTER Intake Chief Complaint : cortisone injection in [...] Preferred Communication Mode : Verbal Languages : Fijian JOSHUA RUBIN LPN - 03/09/2014 15:00 CDT [...] RUBIN LPN - 03/09/2014 15:00 CDT Source: Ofelia Feliz Document Id: [id number]!41 documented in this encounter Plan of Treatment Upcoming Encounters Date Type Specialty Care Team Description 08/22/2022 Clinical Communication Admitting/Central Scheduling 08/24/2022 Appointment Radiation Oncology Sue Barry M.D. [address] [place] [address] documented as of this encounter Visit Diagnoses Not on filedocumented in this encounter
--- OUTSIDE RECORDS SUMMARY | 2022-08-14 22:22 | XMS_ITS | Encounter Summary ---
:1940 Author Organization [facility] Address [address] [place] [address] Care Team Providers Name Role Phone Unavailable Primary Care Provider Unavailable Encounter Details Date Type Department Care Team Description 03/31/2014 Hospital Encounter HX [facility] FBKF LAB Elizabeth Parker, MISA, C.N.P., D.N.P. [address] [place], [place] [address] (Wo rk) Social History [...] AM CDT General Message From: ELIZABETH POTTER TIRE MAKER To: ELISE AGUAYO Sent: 03/31/2014 11:31:27 CDT [...] Lvl 10.0 mg/dL (8.5 - 10.5) Source: [facility] POWERCHART Document Id: [id number] Electronically signed by Conversion, [facility] Diesel Engine Pipe Fitter [id number] at 03/05/2017 1:50 AM CDT documented in this encounter Plan of Treatment Upcoming Encounters Date Type Specialty Care Team Description 08/22/2022 Clinical Communication Admitting/Central Scheduling 08/24/2022 Appointment Radiation Oncology Sue Barry M.D. [address] [place] [address] documented as of this encounter Procedures Procedure [...]
--- OUTSIDE RECORDS SUMMARY | 2022-08-14 22:22 | XMS_ITS | Encounter Summary ---
:1940 Author Organization [facility] Address [address] [place] [address] Care Team Providers Name Role Phone Unavailable Primary Care Provider Unavailable Encounter Details Date Type Department Care Team Description 11/18/2014 Hospital Encounter HX NO MAPPING Anabella Root M.D. [address] [place], [place] [phone] (Wo rk) Social History [...] Historical Provider Ser - 11/18/2014 11:59 PM MANNEQUIN SANDER AND FINISHER Coding Summary-Paper Based CODING DATE: 11/25/2014 FINAL [facility] STATUS: * Discharged to Home [...] WHITMORE Date Saved: 11/25/2014 07:58 pm Source: [facility] POWERCHART Document Id: [id number] documented in this encounter Plan of Treatment Upcoming Encounters Date Type Specialty Care Team Description 08/22/2022 Clinical Communication Admitting/Central Scheduling 08/24/2022 Appointment Radiation Oncology Sue Barry M.D. [address] [place] [address] documented as of this encounter Visit Diagnoses Not on filedocumented in this encounter Additional Health Concerns Assessment Noted Time PHQ-9 Depression Total Score: 1 09/16/2014 9:15 AM MANNEQUIN SANDER AND FINISHER documented as of this encounter
--- OUTSIDE RECORDS SUMMARY | 2022-08-14 22:22 | XMS_ITS | Encounter Summary ---
:1940 Author Organization [facility] Address [address] [place] [address] Care Team Providers Name Role Phone Unavailable Primary Care Provider Unavailable Encounter Details Date Type Department Care Team Description 11/09/2014 Hospital Encounter HX NO MAPPING Donya Alexander V., APR N, C.N.P. [address] [place], [place] [phone] (Wo rk) Social History [...] MISA, C.N.P. - 11/09/2014 2:12 PM CST [id number] Dr[address] Zapien. HISTORY OF PRESENT ILLNESS I was asked to go speak with Ainsley regarding pain control. 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 She is doing well in the long-term and is actually planning on leaving on Saturday. She is pretty much independent in the long-term setting and is just receiving therapy here. She has two questions or complaints, the first one being she is asking for a laxative to be scheduled. The other thing is, she does not like the Percocet at all and would like to try and Tabor. I did tell her that she would get Senna-S 2 at bedtime tonight as senna given in the evening or at bedtime is to help promote a bowel movement in the morning. Her last BM was yesterday which was a medium. The Percocet will be discontinued, even though it was reduced yesterday. She will be started on Tabor 5/325 one for pain 1 to 5; [...] tightens. Nursing will continue to monitor, notify ANALYSIS LEAD/MD of changes. This was a face to face conversational visit for approximately 15 minutes. Donya Alexander CNP/tello cc: [place] [address] Electronically Signed By: DONYA ALEXANDER CNP On: 11/17/2014 08:07 AM Source: [facility] MHSDOLBEYNONRADSYS Document Id: [id number] MACHINE TENDER documented in this encounter Plan of Treatment Upcoming Encounters Date Type Specialty Care Team Description 08/22/2022 Clinical Communication Admitting/Central Scheduling 08/24/2022 Appointment Radiation Oncology Sue Barry M.D. [address] [place] [phone] documented as of this encounter Visit Diagnoses Not on filedocumented in this encounter Additional Health Concerns Assessment Noted Time PHQ-9 Depression Total Score: 1 09/16/2014 9:15 AM CUBE MACHINE TENDER documented as of this encounter
--- OUTSIDE RECORDS SUMMARY | 2022-08-14 22:22 | XMS_ITS | Encounter Summary ---
:1940 Author Organization [facility] Address [address] [place] [address] Care Team Providers Name Role Phone Unavailable Primary Care Provider Unavailable Encounter Details Date Type Department Care Team Description 07/01/2013 Hospital Encounter [facility] Elizabeth Parker, MISA, C.N.P., D.N.P. [address] [place], [place] [address] (Wo rk) Social History [...] : Negative Test Strip Lot # : [id number] Test Strip Expiration Date : TITA CALDWELL - 07/01/2013 15:50 CDT [facility] POWERCHART Document Id: [id number] CDT!16 documented in this encounter Nursing Notes [...] TITA CALDWELL - 07/01/2013 15:52 CDT Source: [employer] Document Id: [id number] CDT!22 documented in this encounter Plan of Treatment Upcoming Encounters Date Type Specialty Care Team Description 08/22/2022 Clinical Communication Admitting/Central Scheduling 08/24/2022 Appointment Radiation Oncology Sue Barry M.D. [address] [place] [address] documented as of this encounter Procedures Procedure [...] Provider LAB HISTORICAL ORDERS Performing Organization Address City/State/[facility] Code Phon e Number [...] CDT) P athologist Signature Specific 1.030 POWERCHART [place], POCT, U Specimen (Source) Anatomical Collection Method Collection Time Re ceived Time Location / / Volume Laterality 07/01/2013 3:51 PM CDT Historical Provider LAB POCT ORDERABLES - DEVICE Performing Organization Address [facility]/ZIP Code Phon e Number POWERCHART Dipstick, POCT, Urine (lab) (07/01/2013 3:51 PM CDT) athologist Signature Blood, POCT, U 3+ LARGE POWERCHART Specimen (Source) Anatomical Collection Method Collection Time Re ceived Time Location / / Volume Laterality 07/01/2013 3:51 PM CDT Historical Provider LAB POCT ORDERABLES - DEVICE Performing Organization Address [facility]/ZIP Code Phon e Number POWERCHART Dipstick, [...] ORDERABLES - DEVICE Performing Organization Address [facility]/ZIP [facility] Phon e Number POWERCHART Dipstick, POCT, Urine (lab) (07/01/2013 3:51 PM CDT) Analysis Performed At Patho logist Time Signature Urobilinogen, 0.2 mg/dl POWERCHART POCT, Urine Specimen (Source) Anatomical Collection Method Collection Time Re ceived Time Location / / Volume Laterality 07/01/2013 3:51 PM CDT Historical Provider LAB POCT ORDERABLES - DEVICE Performing Organization Address [facility]/ZIP [facility] Phon e Number POWERCHART HX UA NITRITE POC (07/01/2013 3:51 PM CDT) athologist Signature Nitrites, Positive POWERCHART POCT, U Specimen (Source) Anatomical Collection Method Collection Time Re ceived Time Location / / Volume Laterality 07/01/2013 3:51 PM CDT Historical Provider LAB HISTORICAL ORDERS Performing Organization Address [facility]/ZIP [facility] Phon e Number POWERCHART Dipstick, POCT, Urine (lab) (07/01/2013 3:51 PM CDT) Patholo gist Method Time Signature Leukocytes, 2+ Moderate POWERCHART POCT, U Specimen (Source) Anatomical Collection Method Collection Time Re ceived Time Location / / Volume Laterality 07/01/2013 3:51 PM CDT Historical Provider LAB POCT ORDERABLES - DEVICE Performing Organization Address [facility]/ZIP [facility] Phon e Number POWERCHART HX UA APPEAR POC (07/01/2013 3:51 PM CDT) athologist Signature Appearance Cloudy POWERCHART Specimen (Source) Anatomical Collection Method Collection Time Re ceived Time Location / / Volume Laterality 07/01/2013 3:51 PM CDT Historical Provider LAB HISTORICAL ORDERS Performing Organization Address City/[facility]/ZIP Code Phon e Number POWERCHART Dipstick, POCT, Urine (lab) (07/01/2013 3:51 PM CDT) athologist Signature Color Yellow POWERCHART Specimen (Source) Anatomical Collection Method Collection Time Re ceived Time Location / / Volume Laterality 07/01/2013 3:51 PM CDT Historical Provider LAB POCT ORDERABLES - DEVICE Performing Organization Address City/State/ZIP Code Phon e Number POWERCHART documented in this encounter Visit Diagnoses Not on filedocumented in this encounter
--- OUTSIDE RECORDS SUMMARY | 2022-08-14 22:22 | XMS_ITS | Encounter Summary ---
:1940 Author Organization [facility] Address [address] [place] [address] Care Team Providers Name Role Phone Unavailable Primary Care Provider Unavailable Encounter Details Date Type Department Care Team Description 03/31/2014 Hospital Encounter [facility] FAMILYPRA Naomi Parker, MISA, C.N.P., D. N.P. [address] [place], [place] [address] (Wo rk) Social History [...] RUBIN LPN - 03/31/2014 10:56 CDT Source: [facility] POWERCHART Document Id: [id number] CDT!7 Miscellaneous - Joshua Rubin L.P.N. - [...] RUBIN LPN - 03/31/2014 10:55 CDT Source: [employer] Document Id: [id number] CDT!10 documented in this encounter Plan of Treatment Upcoming Encounters Date Type Specialty Care Team Description 08/22/2022 Clinical Communication Admitting/Central Scheduling 08/24/2022 Appointment Radiation Oncology Sue Barry M.D. [address] [place] [address] documented as of this encounter Visit Diagnoses Not on filedocumented in this encounter
--- OUTSIDE RECORDS SUMMARY | 2022-08-14 22:22 | XMS_ITS | Encounter Summary ---
:1940 Author Organization [facility] Address [address] [place] [address] Care Team Providers Name Role Phone Unavailable Primary Care Provider Unavailable Encounter Details Date Type Department Care Team Description 09/18/2012 Hospital Encounter [facility] FAMILYPRA Naomi Parker, MISA, C.N.P., D. N.P. [address] [place], [place] [address] (Wo rk) Social History [...] Comments Blood Pressure 140/70 09/18/2012 8:39 AM BODY AND FENDER MECHANIC Pulse - - Temperature - - Respiratory [...] TITA CALDWELL On: 09/26/2012 04:33 PM Source: [facility] POWERCHART Document Id: [id number] Conversion, Historical Provider Ser - 09/18/2012 8:35 AM CST Nurse Only Documentation Nurse Only Documentation Entered On: 09/18/2012 8:35 BODY AND FENDER MECHANIC Performed On: 09/18/2012 8:35 BODY AND FENDER MECHANIC by TITA CALDWELL [employer]/Ht/Wt Systolic Blood Pressure : 140mmHg Diastolic Blood Pressure : 70mmHg NIBP Mean : 93mmHg BP Location : Right upper extremity Blood Pressure Cuff Size : Regular TITA CALDWELL - 09/18/2012 8:35 BODY AND FENDER MECHANIC Allergy Allergies (Active) Cats Estimated Onset Date: Unspecified ; Reactions: unknown ; Created By: PHILLIP JARAMILLO MD; Reaction Status: Active ; Category: Other ; Substance: Cats ; Type: Allergy ; Updated By: PHILLIP JARAMILLO; Reviewed Date: 09/12/2012 8:34 BODY AND FENDER MECHANIC Dust Mite Estimated Onset Date: Unspecified ; Created By: KVNG PAULINO LPN; Reaction Status: Active ; Category: Drug ; Substance: Dust Mite ; Type: Allergy ; Updated By: KVNG PAULINO LPN; Reviewed Date: 09/12/2012 8:34 BODY AND FENDER MECHANIC prochlorperazine Estimated Onset Date: Unspecified ; Reactions: unknown ; Created By: BRAD JARAMILLO MD; Reaction Status: Active ; Category: Drug ; Substance: prochlorperazine ; Type: Allergy ; Updated By: PHILLIP JARAMILLO MD; Reviewed Date: 09/12/2012 8:34 BODY AND FENDER MECHANIC Source: [employer] Document Id: [id number] documented in this encounter Miscellaneous Notes Miscellaneous - Conversion, Historical Provider Ser - 09/18/2012 8:39 AM BODY AND FENDER MECHANIC Ambulatory Vitals Height Weight Ambulatory Vitals Height Weight Entered On: 09/18/2012 8:39 BODY AND FENDER MECHANIC Performed On: 09/18/2012 8:39 BODY AND FENDER MECHANIC by TITA CALDWELL/Ht/Wt Systolic Blood Pressure : 140mmHg Diastolic Blood Pressure : 70mmHg NIBP Mean : 93mmHg BP Location : Right upper extremity Blood Pressure Cuff Size : Regular Weight Source : Standing scale TITA CALDWELL - 09/18/2012 8:39 BODY AND FENDER MECHANIC Source: [facility] POWERCHART Document Id: [id number] documented in this encounter Plan of Treatment Upcoming Encounters Date Type Specialty Care Team Description 08/22/2022 Clinical Communication Admitting/Central Scheduling 08/24/2022 Appointment Radiation Oncology Sue Barry M.D. [address] [place] [address] documented as of this encounter Visit Diagnoses Not on filedocumented in this encounter
--- OUTSIDE RECORDS SUMMARY | 2022-08-14 22:22 | XMS_ITS | Encounter Summary ---
:1940 Author Organization [facility] Address [address] [place] [address] Care Team Providers Name Role Phone Unavailable Primary Care Provider Unavailable Encounter Details Date Type Department Care Team Description 03/08/2014 Hospital Encounter [facility] FAMILYPRA Naomi Parker, MISA, C.N.P., D. N.P. [address] [place], [place] [address] (Wo rk) Social History [...] Body Mass Index 34.86 09/25/2013 8:26 AM KELLY MACHINE OPERATOR documented in this encounter Medications [...] APRN, C.N.P. - 03/08/2014 9:00 AM CDT [id number] CHIEF COMPLAINT/REASON FOR VISIT Knee pain. HISTORY [...] SKINNER CNP On: 05/27/2014 06:10 PM Source: [facility] MHSDOLBEYNONRADSYS Document Id: [id number] documented in this encounter Miscellaneous Notes Miscellaneous [...] Radiology XR Knee Left 3 views Source: [facility] POWERCHART Document Id: [id number] Electronically signed by Nikos [facility] Insanecameron Internal Salesperson [id number] at 03/05/2017 8:39 PM CDT Miscellaneous - Jonathon Parker APRN, C.N.P. - 03/08/2014 9:32 AM CDT Ambulatory Patient Summary [address] [id number] Visit Information Name: AINSLEY AGUAYO [facility] Number: [id number] Visit Date: 03/08/2014 09:32:58 Attending [...] nasal (Flonase 0.05 mg/inh nasal spray) 1 [place](s), Nostrils(Both), once a day ibuprofen (ibuprofen 200 [...] CNP Signed On:08-MAR-2014 09:32:42 Additional Information: Source: [facility] POWERCHART Document Id: [id number] Miscellaneous - Jonathon Parker APRN, C.N.P. - 03/08/2014 9:32 AM CDT Ambulatory Discharge Medication List [address] [id number] Visit Information Name: AINSLEY AGUAYO [facility] Number: [id number] Visit Date: 03/08/2014 09:32:56 Attending [...] nasal (Flonase 0.05 mg/inh nasal spray) 1 [place](s), Nostrils(Both), once a day ibuprofen (ibuprofen 200 [...] of emergency. Electronically Signed By: JONATHON SKINNER ELECTRONIC TYPESETTING MACHINE OPERATOR Signed On:08-MAR-2014 09:32:42 Additional Information: Source: [facility] POWERCHART Document Id: [id number] Miscellaneous - Stephen Rubin, L.P.N. - 03/08/2014 9:11 AM CDT Adult Preformer [employer] Intake/History Adult Preformer [employer] Intake/History Entered On: 03/08/2014 9:14 CDT Performed On: 03/08/2014 9:11 CDT by ERICHSEN, DWYN E CURTAIN FELLER BLINDSTITCH Intake Chief Complaint : Left knee bothers [...] Preferred Communication Mode : Verbal Languages : Arabic STEPHEN RUBIN LPN - 03/08/2014 9:11 CDT [...] STEPHEN RUBIN LPN 03/08/2014 9:11 CDT Source: [facility] POWERCHART Document Id: [id number] CDT!48 documented in this encounter Plan of Treatment Upcoming Encounters Date Type Specialty Care Team Description 08/22/2022 Clinical Communication Admitting/Central Scheduling 08/24/2022 Appointment Radiation Oncology Sue Barry M.D. [address] [place] [address] documented as of this encounter Procedures Procedure [...] moderate medial compartment degenerative change. Alison Farmer(R), RAntwanTAntwan(R)(M) IMG DIAGNOSTIC IM AGING PROCEDURES documented in this encounter Visit Diagnoses Not on filedocumented in this encounter
--- OUTSIDE RECORDS SUMMARY | 2022-08-14 22:22 | XMS_ITS | Encounter Summary ---
:1940 Author Organization [facility] Address [address] [place] [address] Care Team Providers Name Role Phone Unavailable Primary Care Provider Unavailable Encounter Details Date Type Department Care Team Description 06/10/2015 Hospital Encounter [facility]X [facility] FAMILYPRA [place] [facility] [address] [place], [place] [phone] (Wo rk) Social History Tobacco Use Types [...] Body Mass Index 36.65 10/15/2014 11:45 AM MACHINE REPAIR PERSON documented in this encounter Medications at Time [...] P.A.-C., P.A. - 06/10/2015 10:12 AM CDT [id number] CHIEF COMPLAINT/REASON FOR VISIT Asthma and allergies [...] does have an appointment to see her [facility] freelance photographer June 30. She is wondering about a [...] today which will be administered. MEDICATIONS Reviewed [facility] EMR dated 06/10/2015 and no changes. ALLERGIES Reviewed [facility] EMR dated 06/10/2015 and no changes. SYSTEMS REVIEW Complete review of systems is performed and is otherwise negative except as noted above. PHYSICAL EXAMINATION VITAL SIGNS: Reviewed [facility] EMR dated 06/10/2015 and no changes. [...] She does have appointment to see her freelance photographer later this month. Symptoms to warrant more urgent evaluation were discussed. PCV-13 was administered today. Catia Hay P.A.-C./tello Electronically Signed By: CATIA HAY PA-C On: 06/10/2015 02:23 PM Source: [facility] MHSDOLBEYNONRADSYS Document Id: [id number] documented in this encounter Miscellaneous Notes Telephone Encounter - Conversion, Historical Provider Ser - 06/30/2015 10:24 AM CDT *Phone Message Document Contains Addenda Addendum by STEPHEN RUBIN LPN on 30 June 2015 16:22:14 CDT noted, thank you Hazel. Addendum by HAZEL ELLSWORTH on 30 June 2015 15:31:20 CDT From: HAZEL ELLSWORTH ([employer] Events Associate) To: DAVID Pascual Family Medicine Nurse; Sent: 06/30/2015 15:31:20 CDT Subject: FW: *Phone Message Addendum by HAZEL ELLSWORTH on 30 June 2015 15:31:09 CDT Patient is scheduled for 7:45 am on 07/01 Addendum by STEPHEN RUBIN LPN on 30 June 2015 13:07:48 CDT From: STEPHEN RUBIN LPN ([facility] Family Medicine Nurse) To: DAVID [employer] Events Associate; Sent: 06/30/2015 13:07:48 CDT Subject: FW: *Phone [...] 2015 11:48:51 CDT From: STEPHEN RUBIN LPN ([facility] Nurse) To: APOLONIA PÉREZ PA-C; Sent: 06/30/2015 11:48:51 CDT Subject: FW: *Phone Message From: QUIANA FLORES ([facility] Events Associate) To: [facility] Nurse; Sent: 06/30/2015 10:24:34 CDT Subject: *Phone [...] Line. A: please call her back R: [phone] Advice/Action: Source used: ( ) Verbalizes understanding [...] back cell phone number ( ) Source: [facility] POWERCHART Document Id: [id number] Miscellaneous - Catia Hay P.A.-C., P.A. - 06/10/2015 12:08 PM CDT Ambulatory Patient Summary [address] [id number] Visit Information Name: AINSLEY AGUAYO [facility] Number: [id number] Current Date: 06/10/2015 12:08:29 Physicians [...] nasal (Flonase 0.05 mg/inh nasal spray) 1 [place](s), Nostrils(Both), once a day fluticasone-salmeterol (Advair Diskus 250 mcg-50 mcg inhalation powder) 1 puff(s), Inhalation, two times a day [facility] Routed to [address] [id number] hydrochlorothiazide (hydrochlorothiazide 25 mg oral tablet) 1 [...] for 4 days then stop Routed to [address] [id number] triamcinolone topical (triamcinolone 0.1% topical cream) See [...] if you dont have one. Go to [email or web address] and click on Create Your Account. Then, follow the directions to complete the online form. Youll be asked for your [facility] number which you can find at the top of this document. Your Goals/Additional instructions: Source: [facility] POWERCHART Document Id: [id number] Miscellaneous - Catia Hay P.A.-C., P.AAntwan - 06/10/2015 12:08 PM CDT Ambulatory Discharge Medication List [address] [id number] Visit Information Name: AINSLEY AGUAYO [facility] Number: [id number] Visit Date: 06/10/2015 12:08:27 Attending [...] nasal (Flonase 0.05 mg/inh nasal spray) 1 [place](s), Nostrils(Both), once a day fluticasone-salmeterol (Advair Diskus 250 mcg-50 mcg inhalation powder) 1 puff(s), Inhalation, two times a day New Routed to [address] [phone] hydrochlorothiazide (hydrochlorothiazide 25 mg oral tablet) 1 [...] for 4 days then stop Routed to [address] [phone] triamcinolone topical (triamcinolone 0.1% topical cream) See [...] PA-C Signed On:10-JUN-2015 12:08:11 Additional Information: Source: [facility] POWERCHART Document Id: [id number] Miscellaneous - Stephen Rubin L.PAntwanN. - 06/10/2015 10:24 AM CDT Adult Air Shovel Operator Intake/History Adult Air Shovel Operator Intake/History Entered On: 06/10/2015 10:34 CDT Performed [...] Preferred Communication Mode : Verbal Languages : Icelandic Is Patient Female and 13-50 no hysterectomy : STEPHEN Gautam LPN - 06/10/2015 10:24 CDT Subjective Pain [...] RUBIN LPN - 06/10/2015 10:24 CDT Source: [facility] [employer] Document Id: [id number] CDT!41 documented in this encounter Plan of Treatment Upcoming Encounters Date Type Specialty Care Team Description 08/22/2022 Clinical Communication Admitting/Central Scheduling 08/24/2022 Appointment Radiation Oncology Sue Barry M.D. [address] [place] [address] documented as of this encounter Visit Diagnoses Not on filedocumented in this encounter Additional Health Concerns Assessment Noted Time PHQ-9 Depression Total Score: 1 09/16/2014 9:15 AM MACHINE REPAIR PERSON documented as of this encounter
--- OUTSIDE RECORDS SUMMARY | 2022-08-14 22:22 | XMS_ITS | Encounter Summary ---
:1940 Author Organization [facility] Address [address] [place] [address] Care Team Providers Name Role Phone Unavailable Primary Care Provider Unavailable Encounter Details Date Type Department Care Team Description 09/14/2014 Hospital Encounter [facility]X [facility] [place] P.[address] [place], [place] [address] (Wo rk) Social History Tobacco Use Types [...] Radiation Oncology Sue Barry M.D. [address] [place] [address] documented as of this encounter Procedures Procedure Name Priority Date/Time Associated Comments Diagnosis LIPID PANEL, S Routine 09/14/2014 8:34 Results fo r this AM PHARMACY OPERATIONS MANAGER procedure are i n the results section. ASPARTATE Routine 09/14/2014 8:34 Results for this AMINOTRANSFERASE (AST), AM PHARMACY OPERATIONS MANAGER proc edure are in S/P the results section. THYROID-STIMULATING Routine 09/14/2014 8:34 Resul ts for this HORMONE-SENSITIVE AM PHARMACY OPERATIONS MANAGER procedure are in (S-TSH) the results section. BASIC METABOLIC PANEL, Routine 09/14/2014 8:34 Re sults for this S/P AM PHARMACY OPERATIONS MANAGER procedure are i n the results section. documented in this encounter Results (ABNORMAL) BMP (Basic Metabolic Panel) (09/14/2014 8:34 AM PHARMACY OPERATIONS MANAGER) P athologist Signature BUN (Blood Urea 18 [...] MLMIN POWERCHART eGFR >60 >=60 POWERCHART Black/ [id number] Congolese Glucose, 105 (H) 70 - 99 POWERCHART Fasting, S MGDL Specimen (Source) Anatomical Collection Method Collection Time Re ceived Time Location / / Volume Laterality Blood 09/14/2014 8:34 AM PHARMACY OPERATIONS MANAGER Igor Horn P.A.-C. LAB BLOOD ADD-ON Performing Organization Address City/State/ZIP Code Phon e Number POWERCHART Thyroid-Stimulating Hormone-Sensitive (s-TSH) (09/14/2014 8:34 AM PHARMACY OPERATIONS MANAGER) P athologist Signature TSH 1.73 0.27 - 4.20 POWERCHART (Thyrotropin) MIUL Specimen (Source) Anatomical Collection Method Collection Time Re ceived Time Location / / Volume Laterality Blood 09/14/2014 8:34 AM PHARMACY OPERATIONS MANAGER Igor Horn P.A.-C. LAB BLOOD ADD-ON Performing Organization Address City/State/ZIP Code Phon e Number POWERCHART AST (Aspartate Aminotransferase) (09/14/2014 8:34 AM PHARMACY OPERATIONS MANAGER) Patholo gist Method Time Signature Aspartate 21 8 - 43 POWERCHART Aminotransferase UNITL (AST), S Specimen (Source) Anatomical Collection Method Collection Time Re ceived Time Location / / Volume Laterality Blood 09/14/2014 8:34 AM PHARMACY OPERATIONS MANAGER Igor Horn P.A.-C. LAB BLOOD ADD-ON Performing Organization Address City/State/ZIP Code Phon e Number POWERCHART Lipid Panel (09/14/2014 8:34 AM PHARMACY OPERATIONS MANAGER) Analysis Performed At Patho logist Time Signature Cholesterol, Total 157 0 - 200 POWERCHART MGDL HX HDL 45.0 40.0 - POWERCHART 60.0 MGDL Triglycerides 125 0 - 150 POWERCHART MGDL Calculated LDL 87 0 - 100 POWERCHART MGDL Total 3 POWERCHART Cholesterol/HDL Ratio Specimen (Source) Anatomical Collection Method Collection Time Re ceived Time Location / / Volume Laterality Blood 09/14/2014 8:34 AM PHARMACY OPERATIONS MANAGER Igor Horn P.A.-C. LAB BLOOD ADD-ON Performing Organization Address City/State/ZIP Code Phon e Number POWERCHART documented in this encounter Visit Diagnoses Not on filedocumented in this encounter
--- OUTSIDE RECORDS SUMMARY | 2022-08-14 22:22 | XMS_ITS | Encounter Summary ---
:1940 Author Organization [facility] Address [address] [place] [address] Care Team Providers Name Role Phone Unavailable Primary Care Provider Unavailable Encounter Details Date Type Department Care Team Description 07/05/2014 Hospital Encounter [facility]X [facility] Naomi Parker, MISA, C.N.P., D. N.P. [address] [place], [place] [address] (Wo rk) Social History [...] Body Mass Index 35.2 09/25/2013 8:26 AM ASSISTANT PROFESSOR OF BIOLOGY documented in this encounter Medications at Time [...] SKINNER CNP On: 08/29/2014 10:37 AM Source: [facility] MHSDOLBEYNONRADSYS Document Id: [id number] STANT PROFESSOR OF BIOLOGY documented in this encounter Miscellaneous Notes Telephone Encounter - Conversion, Historical Provider Ser - 09/07/2014 10:27 AM CST *Phone Message Document Contains Addenda Addendum by JEREMIAH ELLSWORTH on 07 September 2014 14:00:49 ASSISTANT PROFESSOR OF BIOLOGY From: JEREMIAH ELLSWORTH ([facility] Toaster Operator) To: [facility] Family Medicine Nurse; Sent: 09/07/2014 14:00:49 ASSISTANT PROFESSOR OF BIOLOGY Subject: RE: *Phone Message scheduled Addendum by JOSHUA RUBIN LPN on 07 September 2014 12:01:39 ASSISTANT PROFESSOR OF BIOLOGY From: JOSHUA RUBIN LPN ([facility] Family Medicine Nurse) To: Ankur Toaster Operator; Sent: 09/07/2014 12:01:39 ASSISTANT PROFESSOR OF BIOLOGY Subject: FW: *Phone Message Addendum by ELIZABETH SKINNER CNP on 07 September 2014 11:36:25 ASSISTANT PROFESSOR OF BIOLOGY From: ELIZABETH SKINNER CNP To: DAVID Pascual Family Medicine Nurse; Sent: 09/07/2014 11:36:25 ASSISTANT PROFESSOR OF BIOLOGY Subject: RE: *Phone Message labs ordered based on last year if new concerns no gurantee additional labs may not be needed. BMP, TSH, Lipid panel, and AST From: JEREMIAH ELLSWORTH (DAVID Pascual Toaster Operator) To: ELIZABETH SKINNER CNP; Sent: 09/07/2014 10:27:03 ASSISTANT PROFESSOR OF BIOLOGY Subject: *Phone Message Caller is: ( x [...] back cell phone number ( ) Source: [facility] [employer] Document Id: [id number] Miscellaneous - Joshua Rubin, L.P.N. - 07/05/2014 1:38 PM CDT Adult Cross Tie Cutter Intake/History Adult Cross Tie Cutter Intake/History Entered On: 07/05/2014 13:40 CDT Performed On: 07/05/2014 13:38 CDT by JOSHUA RUBIN HAT LINER Intake Chief Complaint : left knee pain [...] Preferred Communication Mode : Verbal Languages : Kazakh Is Patient Female and 13-50 no hysterectomy [...] RUBIN LPN - 07/05/2014 13:38 CDT Source: [employer] Document Id: [id number] CDT!45 documented in this encounter Plan of Treatment Upcoming Encounters Date Type Specialty Care Team Description 08/22/2022 Clinical Communication Admitting/Central Scheduling 08/24/2022 Appointment Radiation Oncology Sue Barry M.D. [address] [place] [phone] documented as of this encounter Visit Diagnoses Not on filedocumented in this encounter
--- OUTSIDE RECORDS SUMMARY | 2022-08-14 22:22 | XMS_ITS | Encounter Summary ---
:1940 Author Organization [facility] Address [address] [place] [address] Care Team Providers Name Role Phone Unavailable Primary Care Provider Unavailable Encounter Details Date Type Department Care Team Description 09/16/2014 Hospital Encounter HX [facility] Tino Horn P.A.-C. [address] [place] [address] (Wo rk) Social History Tobacco [...] Comments Blood Pressure 120/78 09/16/2014 9:15 AM MANAGER STRATEGIC SOURCING Pulse 78 09/16/2014 9:15 AM MANAGER STRATEGIC SOURCING Temperature - - Respiratory Rate 16 09/16/2014 9:15 AM MANAGER STRATEGIC SOURCING Oxygen Saturation - - Inhaled Oxygen Concentration - - Weight 93.6 kg (206 lb 5.6 oz) 09/16/2014 9:15 AM MANAGER STRATEGIC SOURCING Height 162 cm (5' 3.78) 09/16/2014 9:15 AM MANAGER STRATEGIC SOURCING Body Mass Index 35.66 09/16/2014 9:15 AM MANAGER STRATEGIC SOURCING documented in this encounter Medications at Time [...] Horn P.A.-C. - 09/16/2014 8:49 AM CST [id number] CHIEF COMPLAINT/REASON FOR VISIT History and physical [...] within the next month. She would be [place] [employer] Anesthesiologists Class 2 for surgery. [...] HORN PA-C On: 09/16/2014 01:36 PM Source: [facility] MHSDOLBEYNONRADSYS Document Id: [id number] GER STRATEGIC SOURCING documented in this encounter Miscellaneous Notes Miscellaneous - Joshua Rubin L.P.N. - 09/16/2014 9:15 AM CST Adult Mental Measurements Teacher Intake/History Adult Mental Measurements Teacher Intake/History Entered On: 09/16/2014 9:17 MANAGER STRATEGIC SOURCING Performed On: 09/16/2014 9:15 MANAGER STRATEGIC SOURCING by JOSHUA RUBIN LPN Intake Chief Complaint [...] kg/m2 JOSHUA RUBIN LPN - 09/16/2014 9:15 MANAGER STRATEGIC SOURCING General Info Information Given By : Patient Preferred Communication Mode : Verbal Languages : Singaporean Is Patient Female and 13-50 no hysterectomy : No JOSHUA RUBIN LPN - 09/16/2014 9:15 MANAGER STRATEGIC SOURCING Subjective Pain Symptoms : Yes JOSHUA RUBIN LPN - 09/16/2014 9:15 MANAGER STRATEGIC SOURCING Pain Pain Assessment Grid Pain 1 Pain 2 Location : Knee Laterality : Left Intensity : 9 Duration : months JOSHUA RUBIN LPN - 09/16/2014 9:15 MANAGER STRATEGIC SOURCING JOSHUA RUBIN LPN - 09/16/2014 9:15 MANAGER STRATEGIC SOURCING Dependent Habits Tobacco Use/Currently Using : No Tobacco Use/Last 12 months : No Tobacco Use/Advised to Quit : No Exposure to Tobacco Smoke : Other: Never Smoked Smoking Status : Never smoker JOSHUA RUBIN LPN - 09/16/2014 9:15 MANAGER STRATEGIC SOURCING Caffeine Use Grid Caffeine Use : Current Type : Soft drinks Frequency : Daily Amount : 1 can diet soda JOSHUA RUBIN LPN - 09/16/2014 9:15 MANAGER STRATEGIC SOURCING Recreational Drug Use Grid Drug Use : None JOSHUA RUBIN LPN - 09/16/2014 9:15 MANAGER STRATEGIC SOURCING ID Screen Drug Resistant Organism : No Travel Within Last 21 Days : No JOSHUA RUBIN LPN - 09/16/2014 9:15 MANAGER STRATEGIC SOURCING Source: [facility] POWERCHART Document Id: [id number] MANAGER STRATEGIC SOURCING!50 GER STRATEGIC SOURCING Miscellaneous - Joshua Rubin L.P.NAntwan - 09/16/2014 9:15 AM CST Health Assessment Health Assessment Entered On: 09/16/2014 9:18 MANAGER STRATEGIC SOURCING Performed On: 09/16/2014 9:15 MANAGER STRATEGIC SOURCING by JOSHUA RUBIN LPN Health Assessment Complete Health Assessment Complete or Modified : Annual Health Assessment Annual Health Assessment Completed : Yes JOSHUA RUBIN LPN - 09/16/2014 9:15 MANAGER STRATEGIC SOURCING Nutrition Nutrition Risk Factors by History Adult : None JOSHUA RUBIN LPN - 09/16/2014 9:15 MANAGER STRATEGIC SOURCING Functional Current Daily Living Assistance : None Mobility Assistance Prior to Admission : Independent JOSHUA RUBIN LPN - 09/16/2014 9:15 MANAGER STRATEGIC SOURCING Dependent Habits Tobacco Use/Currently Using : No Tobacco Use/Last 12 months : No Tobacco Use/Advised to Quit : No Exposure to Tobacco Smoke : Other: Never Smoked Smoking Status : Never smoker Alcohol Use : Yes JOSHUA RUBIN LPN - 09/16/2014 9:15 MANAGER STRATEGIC SOURCING Caffeine Use Grid Caffeine Use : Current Type : Soft drinks Frequency : Daily Amount : 1 can diet soda Last Use : 09/15/14 JOSHUA RUBIN LPN - 09/16/2014 9:15 MANAGER STRATEGIC SOURCING Recreational Drug Use Grid Drug Use : None JOSHUA RUBIN LPN - 09/16/2014 9:15 MANAGER STRATEGIC SOURCING AUDIT Tool How Often Do You Have A Drink : 2 to 4 times a month How Many Drinks in a Day When Drinking : 1 or 2 Six or More Drinks On One Occassion : Never Audit Phase 1 Score : 2 JOSHUA RUBIN LPN - 09/16/2014 9:15 MANAGER STRATEGIC SOURCING Psychosocial Domestic Abuse Concerns : None Marital Status : Number of Children : 1 Employment Status : Retired Education : College Graduate Anabaptism Preference : Unknown JOSHUA RUBIN LPN - 09/16/2014 9:15 MANAGER STRATEGIC SOURCING Advance Directive Advanced Directives : No Advance Directive Additional Information : No JOSHUA RUBIN LPN - 09/16/2014 9:15 MANAGER STRATEGIC SOURCING Educ Needs Learning Style Preference Adult Grid Patient : Printed materials, Verbal explanation Family : Verbal explanation, Printed materials JOSHUA RUBIN LPN - 09/16/2014 9:15 MANAGER STRATEGIC SOURCING Source: [employer] Document Id: [id number] MANAGER STRATEGIC SOURCING!45 GER STRATEGIC SOURCING Miscellaneous - Joshua Rubin L.P.N. - 09/16/2014 9:15 AM CST PHQ-9 PHQ-9 Entered On: 09/16/2014 9:18 MANAGER STRATEGIC SOURCING Performed On: 09/16/2014 9:15 MANAGER STRATEGIC SOURCING by JOSHUA RUBIN LPN PHQ-9 Little interest [...] difficult JOSHUA RUBIN LPN - 09/16/2014 9:15 MANAGER STRATEGIC SOURCING Source: [employer] Document Id: [id number] MANAGER STRATEGIC SOURCING!13 GER STRATEGIC SOURCING documented in this encounter Plan of Treatment Upcoming Encounters Date Type Specialty Care Team Description 08/22/2022 Clinical Communication Admitting/Central Scheduling 08/24/2022 Appointment Radiation Oncology Sue Barry M.D. [address] [place] [address] documented as of this encounter Visit Diagnoses Not on filedocumented in this encounter Additional Health Concerns Assessment Noted Time PHQ-9 Depression Total Score: 1 09/16/2014 9:15 AM MANAGER STRATEGIC SOURCING documented as of this encounter
--- OUTSIDE RECORDS SUMMARY | 2022-08-14 22:22 | XMS_ITS | Encounter Summary ---
:1940 Author Organization [facility] Address [address] [place] [address] Care Team Providers Name Role Phone Unavailable Primary Care Provider Unavailable Encounter Details Date Type Department Care Team Description 10/15/2014 Hospital Encounter HX [facility] FAMILY[facility] Jack Apodaca i, M.D. [address] [place] [address] (Wo rk) Social History Tobacco [...] Comments Blood Pressure 136/76 10/15/2014 11:45 AM DEBURRING MACHINE OPERATOR Pulse 72 10/15/2014 11:45 AM DEBURRING MACHINE OPERATOR Temperature - - Respiratory Rate 16 10/15/2014 11:45 AM DEBURRING MACHINE OPERATOR Oxygen Saturation - - Inhaled Oxygen Concentration - - Weight 96 kg (211 lb 10.3 oz) 10/15/2014 11:45 AM DEBURRING MACHINE OPERATOR Height 161 cm (5' 3.39) 10/15/2014 11:45 AM DEBURRING MACHINE OPERATOR Body Mass Index 37.04 10/15/2014 11:45 AM DEBURRING MACHINE OPERATOR documented in this encounter Medications [...] Luo M.D. - 10/15/2014 11:08 AM CST [id number] CHIEF COMPLAINT/ REASON FOR VISIT Proposed surgery date: 11/02/14 Surgeon: Dr. Nickerson Proposed surgery: Left total knee arthroplasty Location: [facility] HISTORY OF PRESENT ILLNESS Ainsley is [...] has a grown son. She lives in [place]. FAMILY HISTORY Mother at age 90 of [...] behalf by Selin Holloway, a trained medical assistant supervisor. The creation of this record is based on the scribe's personal observations and the provider's statements to them. This document has been denise cked and approved by the attending provider. Jack Dorman M.D./denis Electronically Signed By: JACK LUO MD On: 11/01/2014 12:08 PM Source: [facility] MHSDOLBEYNONRADSYS Document Id: [id number] RRING MACHINE OPERATOR documented in this encounter Nursing Notes Conversion, Historical Provider Ser - 11/01/2014 3:13 PM CST pre-op Pre-op faxed to [facility]. Electronically Signed By: PRAKASH ACEVEDO On: 11/01/2014 03:14 PM Source: [employer] Document Id: [id number] documented in this encounter Miscellaneous Notes Telephone Encounter - Conversion, Historical Provider Ser - 11/15/2014 10:42 AM CST *Phone Message Document Contains Addenda Addendum by JOE RAZA LPN on 15 November 2014 10:50:59 DEBURRING MACHINE OPERATOR will fax after provider fills out and signs order From: JEREMIAH ELLSWORTH (DAVID Pascual Trackwalker) To: DAVID Dorman Nurse; Sent: 11/15/2014 10:42:52 DEBURRING MACHINE OPERATOR Subject: *Phone Message Caller is: [...] Any questions she can be reached at [phone] Message: Advice/Action: Source used: ( ) Verbalizes [...] back cell phone number ( ) [facility] Document Id: [id number] Miscellaneous - Jack Luo M.D. - 10/15/2014 8:48 PM DEBURRING MACHINE OPERATOR Ambulatory Patient Summary [address] [place] [id number] Visit Information Name: AINSLEY AGUAYO [facility] Number: [id number] Current Date: 10/15/2014 20:48:33 Physicians Attending Provider: JACK LUO MD Primary Care Provider: PCP, UNASSIGNED - FB ARNOLALEX AINSLEY HERMAN has been given the following [...] nasal (Flonase 0.05 mg/inh nasal spray) 1 Ivanhoe(s), Nostrils(Both), once a day hydrochlorothiazide (hydrochlorothiazide 25 [...] appointment detail needed. Your Goals/Additional instructions: Source: [facility] POWERCHART Document Id: [id number] RRING MACHINE OPERATOR Miscellaneous - Jack Luo M.D. - 10/15/2014 8:48 PM DEBURRING MACHINE OPERATOR Ambulatory Discharge Medication List [address] [id number] Visit Information Name: GALA AINSLEY HERMAN [facility] Number: [id number] Visit Date: 10/15/2014 20:48:32 Attending Provider: JACK LUO MD Primary Care Provider: PCP, UNASSIGNED - FB AINSLEY AGUAYO has been given the following [...] nasal (Flonase 0.05 mg/inh nasal spray) 1 Ivanhoe(s), Nostrils(Both), once a day hydrochlorothiazide (hydrochlorothiazide 25 [...] MD Signed On:15-OCT-2014 20:48:23 Additional Information: Source: [facility] POWERCHART Document Id: [id number] RRING MACHINE OPERATOR Miscellaneous - Conversion, Historical Provider Ser - 10/15/2014 11:45 AM DEBURRING MACHINE OPERATOR Adult Military Logistics Specialist Intake/History Adult Military Logistics Specialist Intake/History Entered On: 10/15/2014 11:46 DEBURRING MACHINE OPERATOR Performed On: 10/15/2014 11:45 DEBURRING MACHINE OPERATOR by JOE RAZA LPN Intake Chief Complaint [...] kg/m2 JOE RAZA LPN - 10/15/2014 11:45 DEBURRING MACHINE OPERATOR General Info Information Given By : Patient Languages : Bhutanese Is Patient Female and 13-50 no hysterectomy : No JOE RAZA LPN - 10/15/2014 11:45 DEBURRING MACHINE OPERATOR Subjective Pain Symptoms : Yes JOE RAZA LPN - 10/15/2014 11:45 DEBURRING MACHINE OPERATOR Pain Scale Pain Scale Verbal 0-10 : Open JOE RAZA LPN - 10/15/2014 11:45 DEBURRING MACHINE OPERATOR Pain Pain Assessment Grid Pain 1 Location : Knee Laterality : Left JOE RAZA LPN - 10/15/2014 11:45 DEBURRING MACHINE OPERATOR Dependent Habits Tobacco Use/Currently Using : No Exposure to Tobacco Smoke : Other: Never Smoked Smoking Status : Never smoker JOE RAZA ANKUSH - 10/15/2014 11:45 DEBURRING MACHINE OPERATOR Caffeine Use Grid Caffeine Use : Current Type : Soft drinks Frequency : Daily Amount : 1 can diet soda Last Use : 09/15/14 JOE RAZA NAVNEET LECHUGA - 10/15/2014 11:45 DEBURRING MACHINE OPERATOR Recreational Drug Use Grid Drug Use : None JOE RAZA NAVNEET LECHUGA - 10/15/2014 11:45 DEBURRING MACHINE OPERATOR ID Screen Drug Resistant Organism : No Travel Within Last 21 Days : No JOE RAZA NAVNEET LECHUGA - 10/15/2014 11:45 DEBURRING MACHINE OPERATOR Source: [employer] Document Id: [id number] DEBURRING MACHINE OPERATOR!48 Miscellaneous - Conversion, Historical Provider Ser - 10/15/2014 11:45 AM DEBURRING MACHINE OPERATOR Obstructive Sleep Apnea Obstructive Sleep Apnea Entered On: 10/15/2014 11:47 DEBURRING MACHINE OPERATOR Performed On: 10/15/2014 11:45 DEBURRING MACHINE OPERATOR by JOE RAZA LPN YOGI Screening Known Obstructive Sleep Apnea : No - NOT diagnosed with YOGI OLVIN MICHELLEVAZQUEZJOEANGIE TOTH LPN - 10/15/2014 11:45 DEBURRING MACHINE OPERATOR YOGI Assessment Do you have high blood [...] Clinical Score HTN Calc : 5 OLVIN MICHELLEVAZQUEZJOEANGIE TOTH LPN - 10/15/2014 11:45 DEBURRING MACHINE OPERATOR Source: [employer] Document Id: [id number] DEBURRING MACHINE OPERATOR!10 documented in this encounter Plan of Treatment Upcoming Encounters Date Type Specialty Care Team Description 08/22/2022 Clinical Communication Admitting/Central Scheduling 08/24/2022 Appointment Radiation Oncology Sue Barry M.D. [address] [place] [address] documented as of this encounter Procedures Procedure Name Priority Date/Time Associated Diagnosis Comme nts AUTOMATED Routine 10/15/2014 12:36 PM Results for this DIFFERENTIAL, B DEBURRING MACHINE OPERATOR procedure ar e in the results section. CBC WITH Routine 10/15/2014 12:36 PM Results for this DIFFERENTIAL, B DEBURRING MACHINE OPERATOR procedure ar e in the results section. DX CHEST 1 VIEW Routine 10/15/2014 12:07 PM Resul ts for this DEBURRING MACHINE OPERATOR procedure are i n the results section. documented in this encounter Results (ABNORMAL) Automated Differential (10/15/2014 12:36 PM DEBURRING MACHINE OPERATOR) Patholo gist Method Time Signature Absolute 4.48 1.70 - POWERCHART Neutrophils 7.00 109L Lymphocytes 3.58 (H) 0.90 - POWERCHART 2.90 X109L Monocytes 0.75 0.30 - POWERCHART 0.90 X109L Eosinophils 0.17 0.05 - POWERCHART 0.50 X109L Absolute 0.05 0.00 - POWERCHART Basophil 0.30 X109L Specimen Anatomical Collection Method Collection Time Receive d Time (Source) Location / / Volume Laterality Blood 10/15/2014 12:36 10/15/2014 PM DEBURRING MACHINE OPERATOR 12:36 PM DEBURRING MACHINE OPERATOR Jack Root M.D. LAB BLOOD ADD-ON Performing Organization Address City/State/ZIP Code Phon e Number POWERCHART CBC with Differential (10/15/2014 12:36 PM DEBURRING MACHINE OPERATOR) P athologist Signature Leukocytes 9.0 3.4 - 10.5 POWERCHART X109L Erythrocytes 4.30 3.90 - POWERCHART 5.03 O1327N Hemoglobin 12.1 12.0 - POWERCHART 15.5 GDL Hematocrit 38.4 34.9 - POWERCHART 44.5 MCV 89.3 82.0 - POWERCHART 98.0 FL Platelet Count 282 150 - 450 POWERCHART X109L HX RDW 14.3 11.9 - POWERCHART 15.5 HXDifferential? Auto POWERCHART Specimen (Source) Anatomical Collection Method Collection Time Re ceived Time Location / / Volume Laterality Blood 10/15/2014 12:36 PM DEBURRING MACHINE OPERATOR Jack Root M.D. LAB BLOOD ADD-ON Performing Organization Address City/State/ZIP Code Phon e Number POWERCHART DX Chest 1 View (10/15/2014 12:07 PM DEBURRING MACHINE OPERATOR) Anatomical Region Laterality Modality Chest N/A Radiographic Imaging Specimen (Source) Anatomical Collection Method Collection Time Re ceived Time Location / / Volume Laterality 10/15/2014 12:07 PM DEBURRING MACHINE OPERATOR Addenda Addendum by Provider, Cristiana Marino o n 10/15/2014 12:07 PM DEBURRING MACHINE OPERATOR RAD^^^OW XR Chest 1 view 10/15/2014 12:07:50 Addendum by Provider, Cristiana Marino o n 10/15/2014 12:07 PM DEBURRING MACHINE OPERATOR RAD^^^MA XR Chest 1 view 10/15/2014 12:07:50 Impressions 10/15/2014 12:57 PM DEBURRING MACHINE OPERATOR Stable chest, no active cardiopulmonary disease. Narrative 10/15/2014 12:57 PM DEBURRING MACHINE OPERATOR EXAM: XR Chest 1 view INDICATION: preop [...] Depression Total Score: 1 09/16/2014 9:15 AM DEBURRING MACHINE OPERATOR documented as of this encounter
--- OUTSIDE RECORDS SUMMARY | 2022-08-14 22:22 | XMS_ITS | Encounter Summary ---
:1940 Author Organization [facility] Address [address] [place] [address] Care Team Providers Name Role Phone Unavailable Primary Care Provider Unavailable Encounter Details Date Type Department Care Team Description 11/18/2014 Hospital Encounter HX [facility] FBHB FAMILYPRA Jack Apodaca i, M.D. [address] [place] [address] (Wo rk) Social History Tobacco [...] Comments Blood Pressure 132/74 11/18/2014 1:47 PM SANDWICH MACHINE OPERATOR Pulse 76 11/18/2014 1:47 PM SANDWICH MACHINE OPERATOR Temperature - - Respiratory Rate 12 11/18/2014 1:47 PM SANDWICH MACHINE OPERATOR Oxygen Saturation - - Inhaled Oxygen Concentration - - Weight 93 kg (205 lb 0.4 oz) 11/18/2014 1:47 PM SANDWICH MACHINE OPERATOR Height - - Body Mass Index 35.88 10/15/2014 11:45 AM SANDWICH MACHINE OPERATOR documented in this encounter Medications [...] Lopez M.D. - 11/18/2014 1:32 PM CST [id number] CHIEF COMPLAINT/ REASON FOR VISIT Possible UTI. [...] her pain medicationschedule. Ainsley also needs her Alden refilled. Ainsley has been constipated since her surgery. She has been taking over the counter Senna. The patientdenies any additional questions or concerns at this time. MEDICATIONS Post-visit Medication Reconciliation Reviewed and are as outlined in the EMR includin. Levaquin 250 mg, 1 tablet, PO, daily for 7 days, prescribed today. 2. Alden 5mg-325mg, 1 tablet, PO, q6hr, for pain, [...] about pain medications are answered prescription for Alden is renewed. 3. Constipation. She will continue [...] their behalf by Leila Alexandra, a trained hospital medical assistant. The creation of this record is based on the scribe's personal observations and the provider's statements to them. This document has been denise cked and approved by the attending provider. Jack Martin M.D./anson Electronically Signed By: JACK LOPEZ MD On: 11/21/2014 07:46 PM Source: [facility] MHSDOLBEYNONRADSYS Document Id: [id number] WICH MACHINE OPERATOR documented in this encounter Miscellaneous Notes Miscellaneous - Jack Lopez M.D. - 11/18/2014 11:30 PM SANDWICH MACHINE OPERATOR Ambulatory Patient Summary [address] [id number] Visit Information Name: AINSLEY AGUAYO [facility] Number: [id number] Current Date: 11/18/2014 23:30:21 [...] nasal (Flonase 0.05 mg/inh nasal spray) 1 [place](s), Nostrils(Both), once a day hydrochlorothiazide (hydrochlorothiazide 25 mg oral tablet) 1 Tablet(s), Oral, once a day HYDROcodone-acetaminophen (Alden 5 mg-325 mg oral tablet) 1 Tablet(s), Oral, every 6 hours New Routed to [place] levofloxacin (Levaquin 250 mg oral tablet) 1 Tablet(s), Oral, once a day x 7 day(s) New Routed to [place] [address] [place], [place] [id number] levothyroxine (Synthroid 75 mcg (0.075 mg) oral [...] Appointments Date Time Location Provider 11/26/2014 11:00 [facility] Jack Dorman MD Attention: Contact your local Clinic if further appointment detail needed. Your Goals/Additional instructions: Source: [facility] POWERCHART Document Id: [id number] WICH MACHINE OPERATOR Miscellaneous - Jack Lopez M.D. - 11/18/2014 11:30 PM SANDWICH MACHINE OPERATOR Ambulatory Discharge Medication List [address] [id number] Visit Information Name: ARNOLAINSLEY HEALYZABETH [facility] Number: [id number] Visit Date: 11/18/2014 23:30:20 [...] nasal (Flonase 0.05 mg/inh nasal spray) 1 [place](s), Nostrils(Both), once a day hydrochlorothiazide (hydrochlorothiazide 25 mg oral tablet) 1 Tablet(s), Oral, once a day HYDROcodone-acetaminophen (Alden 5 mg-325 mg oral tablet) 1 Tablet(s), Oral, every 6 hours New Routed to [place] levofloxacin (Levaquin 250 mg oral tablet) 1 Tablet(s), Oral, once a day x 7 day(s) New Routed to [address] [id number] levothyroxine (Synthroid 75 mcg (0.075 mg) oral [...] By: JACK LOPEZ MD Signed On:18-NOV-2014 23:30:06 Additional Information: Source: [facility] POWERCHART Document Id: [id number] WICH MACHINE OPERATOR Miscellaneous - Miya Lutz L.PAntwanNAntwan - 11/18/2014 1:47 PM CST Adult Software Qa System Specialist Intake/History Adult Software Qa System Specialist Intake/History Entered On: 11/18/2014 13:50 SANDWICH MACHINE OPERATOR Performed On: 11/18/2014 13:47 SANDWICH MACHINE OPERATOR by MIYA LUTZ LPN Intake Chief Complaint [...] kg MIYA LUTZ LPN - 11/18/2014 13:47 SANDWICH MACHINE OPERATOR General Info Information Given By : Patient Languages : Malian Is Patient Female and 13-50 no hysterectomy : No MIYA LUTZ LPN - 11/18/2014 13:47 SANDWICH MACHINE OPERATOR Subjective Pain Symptoms : Yes MIYA LUTZ LPN - 11/18/2014 13:47 SANDWICH MACHINE OPERATOR Dependent Habits Tobacco Use/Currently Using : No Exposure to Tobacco Smoke : Other: Never Smoked Smoking Status : Never smoker MIYA LUTZ LPN - 11/18/2014 13:47 SANDWICH MACHINE OPERATOR Caffeine Use Grid Caffeine Use : Current Type : Soft drinks Frequency : Daily Amount : 1 can diet soda Last Use : 09/15/14 MIYA LUTZ LPN - 11/18/2014 13:47 SANDWICH MACHINE OPERATOR Recreational Drug Use Grid Drug Use : None MIYA LUTZ LPN - 11/18/2014 13:47 SANDWICH MACHINE OPERATOR ID Screen Drug Resistant Organism : No Travel Within Last 21 Days : No MIYA LUTZ LPN - 11/18/2014 13:47 SANDWICH MACHINE OPERATOR Source: [facility] POWERCHART Document Id: [id number] SANDWICH MACHINE OPERATOR!38 WICH MACHINE OPERATOR documented in this encounter Plan of Treatment Upcoming Encounters Date Type Specialty Care Team Description 08/22/2022 Clinical Communication Admitting/Central Scheduling 08/24/2022 Appointment Radiation Oncology Sue Barry M.D. [address] [place] [address] documented as of this encounter Procedures Procedure Name Priority Date/Time Associated Comments Diagnosis BACTERIAL CULTURE, Routine 11/18/2014 1:45 PM Res ults for this AEROBIC, URINE SANDWICH MACHINE OPERATOR procedure are in the results section. HXUR % DYSMORPHIC RBC Routine 11/18/2014 1:44 PM Results for this SANDWICH MACHINE OPERATOR procedure are i n the results section. URINALYSIS WITH Routine 11/18/2014 1:44 PM Result s for this MICROSCOPIC SANDWICH MACHINE OPERATOR procedure are i n the results section. documented in this encounter Results Bacterial Culture, Aerobic, Urine (11/18/2014 1:45 PM SANDWICH MACHINE OPERATOR) Patholo gist Method Time Signature Bacterial POWERCHART Culture, Aerobic, Urine HXFinal Mixed eros. No POWERCHART further studies unless notified. HXFinal [employer] POWERCHART Microbiology laboratory [phone] Specimen (Source) Anatomical Collection Method Collection Time Re ceived Time Location / / Volume Laterality Urine, First 11/18/2014 1:45 PM Voided SANDWICH MACHINE OPERATOR Jack Root M.D. LAB MICROBIOLOGY - GEN ERAL ORDERABLES Performing Organization Address City/State/ZIP Code Phon e Number POWERCHART HXUR % DYSMORPHIC RBC (11/18/2014 1:44 PM SANDWICH MACHINE OPERATOR) P athologist Signature Dysmorphic RBC <=25 <=25 POWERCHART Specimen Anatomical Collection Method Collection Time Receive d Time (Source) Location / / Volume Laterality Urine, First 11/18/2014 1:44 PM 5 1:44 Voided SANDWICH MACHINE OPERATOR PM SANDWICH MACHINE OPERATOR Jack Root M.D. LAB HISTORICAL ORDERS Performing Organization Address City/State/ZIP Code Phon e Number POWERCHART (ABNORMAL) Urinalysis, Complete, Includes Microscopic (11/18/2014 1:44 PM SANDWICH MACHINE OPERATOR) [facility] gist Method Time Signature Protein, Ur, Trace Negative POWERCHART Dip MGDL HXUr Color Yellow Colorless POWERCHART Glucose Negative Negative POWERCHART MGDL HXBILIRUBIN Negative Negative POWERCHART Ketones, QL(U) Negative Negative POWERCHART MGDL Specific 1.020 POWERCHART [place], POCT, U Clarity Cloudy (A) Clear POWERCHART [...] Laterality Urine, First 11/18/2014 1:44 PM Voided SANDWICH MACHINE OPERATOR Jack Root M.D. LAB URINE ORDERABLES Performing Organization Address City/[facility]/ZIP Code Phon e Number POWERCHART documented in this encounter Visit Diagnoses Not on filedocumented in this encounter Additional Health Concerns Assessment Noted Time PHQ-9 Depression Total Score: 1 09/16/2014 9:15 AM SANDWICH MACHINE OPERATOR documented as of this encounter
--- OUTSIDE RECORDS SUMMARY | 2022-08-14 22:23 | XMS_ITS | Encounter Summary ---
:1940 Author Organization [facility] Address [address] [place] [address] Care Team Providers Name Role Phone Unavailable Primary Care Provider Unavailable Encounter Details Date Type Department Care Team Description 10/04/2011 Hospital Encounter HX [facility] FBKF FAMILYPRA Naomi Parker, MISA, C.N.P., D. N.P. [address] [place], [place] [address] (Wo rk) Social History [...] APRN, C.N.P. - 10/04/2011 12:00 AM CST [id number] CHIEF COMPLAINT/ REASON FOR VISIT Asthma exacerbation. HISTORY OF PRESENT ILLNESS The patient is a 70-year-old female who presents to the clinic for an asthma exacerbation. Patient was having coughing attacks and shortness of breath. Patient was wheezing. She is seen at [facility] at the allergy and asthma clinic. Yesterday she called them and she began taking her prednisone 40 milligrams for 5 days. She has been using her albuterol inhaler. She is now requesting Tessalon Perles at nighttime to help with sleep. She did not tolerate Robitussin with codeine. She also has a history of a recent UTI after returning from [facility] for a mission trip. She started Cipro [...] continue her prednisone given to her from [facility] from her asthma action plan. She will [...] SKINNER CNP On: 10/09/2011 08:58 AM Source: [facility] MHSDOLBEYNONRADSYS Document Id: [id number] GER ADVANCED documented in this encounter Nursing Notes Conversion, Historical Provider Ser - 10/19/2011 12:53 PM CST Urine culture sensatives received Notified patient (by cell #) of need to change antibotic again - not normal strain of E-coli seen here; not sensitive to either antibotics given, now have sensative received to changed new antibotic that it is sensative to. Prescription sent to [facility] Electronically Signed By: KVNG PAULINO LPN On: 10/19/2011 12:56 PM Source: [facility] POWERCHART Document Id: [id number] documented in this encounter Miscellaneous Notes Miscellaneous - Elizabeth Parker APRN, C.N.P. - 10/04/2011 10:19 AM MANAGER ADVANCED Ambulatory Patient Summary [address] [id number] Visit Information Name: ELISE GANDHI Current Date: [...] No Appointments found Your Goals/Additional instructions: Source: [facility] POWERCHART Document Id: [id number] GER ADVANCED Miscellaneous - Elizabeth Parker APRN, C.N.P. - 10/04/2011 10:19 AM MANAGER ADVANCED Ambulatory Depart Summary [address] [id number] Visit Information Name: ELISE GANDHI Current Date: [...] 200 mg oral tablet) Additional Information: Source: [facility] POWERCHART Document Id: [id number] GER ADVANCED Miscellaneous - Conversion, Historical Provider Ser - 10/04/2011 9:55 AM MANAGER ADVANCED Adult Fisheries Specialist Intake/History Adult Fisheries Specialist Intake/History Entered On: 10/04/2011 9:57 MANAGER ADVANCED Performed On: 10/04/2011 9:55 MANAGER ADVANCED by PRAKASH ACEVEDO Intake Chief Complaint : [...] : 87.60kg PRAKASH ACEVEDO - 10/04/2011 9:55 MANAGER ADVANCED Subjective Pain Symptoms : No PRAKASH ACEVEDO - 10/04/2011 9:55 MANAGER ADVANCED Dependent Habits Tobacco Use/Currently Using : No Smoking Status : Never smoker Alcohol Use : Yes PRAKASH ACEVEDO - 10/04/2011 9:55 MANAGER ADVANCED Caffeine Use Grid Caffeine Use : Current Type : Coffee, Soft drinks Frequency : Daily Amount : 1 cup & 2 cans Last Use : yesterday after noon PRAKASH ACEVEDO - 10/04/2011 9:55 MANAGER ADVANCED Recreational Drug Use Grid Drug Use : None PRAKASH ACEVEDO - 10/04/2011 9:55 MANAGER ADVANCED Allergy Allergies (Active) Cats Estimated Onset Date: [...] MD; Reviewed Date: 04/13/2011 9:12 CDT Source: [facility] POWERCHART Document Id: [id number] MANAGER ADVANCED!33 documented in this encounter Plan of Treatment Upcoming Encounters Date Type Specialty Care Team Description 08/22/2022 Clinical Communication Admitting/Central Scheduling 08/24/2022 Appointment Radiation Oncology Sue Barry M.D. [address] [place] [address] documented as of this encounter Visit Diagnoses Not on filedocumented in this encounter
--- OUTSIDE RECORDS SUMMARY | 2022-08-14 22:23 | XMS_ITS | Encounter Summary ---
:1940 Author Organization [facility] Address [address] [place] [address] Care Team Providers Name Role Phone Unavailable Primary Care Provider Unavailable Encounter Details Date Type Department Care Team Description 08/01/2012 Hospital Encounter HX [facility]S FBKF FAMILYPRA Naomi Parker, MISA, C.N.P., D. N.P. [address] [place], [place] [address] (Wo rk) Social History [...] APRN, C.N.P. - 08/01/2012 10:28 AM CDT [id number] CHIEF COMPLAINT/REASON FOR VISIT UTI. HISTORY OF [...] pain. Patient also will be traveling to [place] from October 07 to January 05 and is due for her mammogram in October. We have been arranging to have her mammogram completed in [place] while she is snowboarding. Patient will follow [...] SKINNER CNP On: 09/14/2012 08:54 PM Source: [facility] MHSDOLBEYNONRADSYS Document Id: [id number] S TECHNICIAN documented in this encounter Procedure Notes Duc [...] : Negative Test Strip Lot # : [id number] Test Strip Expiration Date : 05/21/2013 DUC RUCKER - 08/01/2012 11:15 CDT Source: [facility] POWERCHART Document Id: [id number] documented in this encounter Nursing Notes Duc Ling L.PKerrie. - 08/05/2012 4:03 PM CDT Mammo Screening Scheduled 10/20/2012 [facility] Document Contains Addenda Addendum by SE LOPEZ [facility], INBOX [id number] on December 15, 2015 15:49 GLASS TECHNICIAN The nurse who authored this document is no longer available to authenticate. The document will be filed without authentication. Modified by and Electronically Signed by: DUC RUCKER On: 12/15/2015 03:49 PM Electronically Signed by Proxy by: SE JOHN GILL, INBOX Mammo Screening Scheduled 10/20/2012 [facility]. [place] Referring Physicians fax [phone] and phone number [phone] or [phone] Electronically Signed By: DUC RUCKER On: 12/15/2015 03:49 PM Electronically Signed by Proxy by: SE JOHN GILL, INBOX Source: [facility] POWERCHART Document Id: [id number] S TECHNICIAN documented in this encounter Miscellaneous Notes Miscellaneous - Jonathon Parker APRN, C.N.P. - 08/07/2012 10:25 AM CDT Results Notification Document Contains Addenda Addendum by DUC RUCKER on 12 August 2012 13:47:44 GLASS TECHNICIAN being treated From: JONATHON SKINNER ALCOHOL STILL OPERATOR To: DAVID Pascual Nurse Sent: 08/07/2012 10:25:36 CDT ! Show up: 08/07/2012 15:25:36 [facility] Subject: Results Notification Actions: Notify patient-refer to General Message Source: [facility] POWERCHART Document Id: [id number] Electronically signed by Nikos [facility] Alternative Financing Specialist [id number] at 03/09/2017 10:55 PM CDT Miscellaneous - Jonathon Parker APRN, C.N.P. - 08/01/2012 11:24 AM CDT Ambulatory Patient Summary [address] [place] [address] Visit Information Name: AINSLEY GANDHI Visit Date: [...] your provider for clarification. Additional Information: Source: [facility] POWERCHART Document Id: [id number] Miscellaneous - Jonathon Parker APRN, C.N.P. - 08/01/2012 11:24 AM CDT Ambulatory Depart Summary [address] [id number] Visit Information Name: AINSLEY GANDHI Visit Date: 08/01/2012 11:23:59 Attending Provider: JONATHON SKINNER CNP Primary Care Provider: JONATHON SKINNER [facility] AINSLEY GANDHIZABETH has been given the following [...] your provider for clarification. Additional Information: Source: [facility] POWERCHART Document Id: [id number] Miscellaneous - Duc Ling L.P.N. 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 [address] [place] [id number] documented as of this encounter Procedures Procedure [...] Culture, Aerobic, Urine (08/01/2012 11:52 AM CDT) [facility] gist Method Time Signature Bacterial POWERCHART Culture, Aerobic, Urine HXFinal See POWERCHART scanned/paper report. Test performed at [facility]. Specimen (Source) Anatomical Collection Method Collection Time Re ceived Time Location / / Volume Laterality Urine, Clean 08/01/2012 11:52 Catch AM CDT Abelardo Bullock APRN.N.P., D.N.P. LAB MICROBIOLOGY - GENERAL ORDERABLES Performing Organization Address City/[facility]/ZIP Code Phon e Number POWERCHART HX UA GLUCOSE POC (08/01/2012 11:16 AM CDT) P athologist Signature Glucose, POCT, Negative POWERCHART U Specimen (Source) Anatomical Collection Method Collection Time Re ceived Time Location / / Volume Laterality 08/01/2012 11:16 AM CDT Historical Provider LAB HISTORICAL ORDERS Performing Organization Address City/[facility]/ZIP Code Phon e Number POWERCHART Dipstick, POCT, Urine (lab) (08/01/2012 11:16 AM CDT) P athologist Signature Bilirubin, 1+ Small POWERCHART POCT, U Specimen (Source) Anatomical Collection Method Collection Time Re ceived Time Location / / Volume Laterality 08/01/2012 11:16 AM CDT Historical Provider LAB POCT ORDERABLES - DEVICE Performing Organization Address [facility]/ZIP Code Phon e Number POWERCHART Ketone, Urine, POCT (08/01/2012 11:16 AM CDT) P athologist Signature Ketone, POCT, Negative POWERCHART U Specimen (Source) Anatomical Collection Method Collection Time Re ceived Time Location / / Volume Laterality 08/01/2012 11:16 AM CDT Historical Provider LAB POCT ORDERABLES-MANUAL Performing Organization Address City/[facility]/ZIP Code Phon e Number POWERCHART Dipstick, POCT, Urine (lab) (08/01/2012 11:16 AM CDT) P athologist Signature Specific 1.030 POWERCHART [place], POCT, U Specimen (Source) Anatomical Collection Method Collection Time Re ceived Time Location / / Volume Laterality 08/01/2012 11:16 AM CDT Historical Provider LAB POCT ORDERABLES - DEVICE Performing Organization Address City/[facility]/ZIP Code Phon e Number POWERCHART Dipstick, [...] POCT ORDERABLES - DEVICE Performing Organization Address [facility]/ZIP Code Phon e Number POWERCHART Dipstick, POCT, Urine (lab) (08/01/2012 11:16 AM CDT) Analysis Performed At [facility] Time Signature Protein, POCT, 3+ (300 POWERCHART U mg/dl) Specimen (Source) Anatomical Collection Method Collection Time Re ceived Time Location / / Volume Laterality 08/01/2012 11:16 AM CDT Historical Provider LAB POCT ORDERABLES - DEVICE Performing Organization Address [facility]/ZIP Code Phon e Number POWERCHART Dipstick, POCT, Urine (lab) (08/01/2012 11:16 AM CDT) Analysis Performed At [facility] Time Signature Urobilinogen, 0.2 mg/dl POWERCHART [...] POCT ORDERABLES - DEVICE Performing Organization Address City/[facility]/ZIP Code Phon e Number POWERCHART HX UA [...] CDT) P athologist Signature Specific 1.030 POWERCHART [place], POCT, U Specimen (Source) Anatomical Collection Method [...] UA NITRITE POC (08/01/2012 11:16 AM CDT) athologist Signature Nitrites, Negative POWERCHART POCT, U Specimen (Source) Anatomical Collection Method Collection Time Re ceived Time Location / / Volume Laterality 08/01/2012 11:16 AM CDT Historical Provider LAB HISTORICAL ORDERS Performing Organization Address City/[facility]/ZIP Code Phon e Number POWERCHART Dipstick, POCT, Urine (lab) (08/01/2012 11:16 AM CDT) P athologist Signature Leukocytes, 3+ Large POWERCHART POCT, U Specimen (Source) Anatomical Collection Method Collection Time Re ceived Time Location / / Volume Laterality 08/01/2012 11:16 AM CDT Historical Provider LAB POCT ORDERABLES - DEVICE Performing Organization Address City/[facility]/ZIP Code Phon e Number POWERCHART HX UA [...]
--- OUTSIDE RECORDS SUMMARY | 2022-08-14 22:23 | XMS_ITS | Encounter Summary ---
:1940 Author Organization [facility] Address [address] [place] [address] Care Team Providers Name Role Phone Unavailable Primary Care Provider Unavailable Encounter Details Date Type Department Care Team Description 10/20/2009 Hospital Encounter HX NO MAPPING Jennifer Deal M.D. [address] [place] [address] (Wo rk) Social History Tobacco Use [...] Admitting/Central Scheduling 08/24/2022 Appointment Radiation Oncology Sue Baryr M.D. [address] [place] [address] documented as of this encounter Procedures Procedure Name Priority Date/Time Associated Diagnosis Comme nts DX CHEST AP OR PA Routine 10/20/2009 3:16 PM Resu lts for this AND LATERAL 2 VIEWS HEALTH AND SAFETY SPECIALIST procedur e are in the results section. documented in this encounter Results DX Chest AP or PA and Lateral 2 Views (10/20/2009 3:16 PM HEALTH AND SAFETY SPECIALIST) Anatomical Region Laterality Modality Chest N/A Radiographic Imaging Specimen (Source) Anatomical Collection Method Collection Time Re ceived Time Location / / Volume Laterality 10/20/2009 3:16 PM HEALTH AND SAFETY SPECIALIST Addenda Addendum by Ned Rai M.D. o n 10/20/2009 3:16 PM HEALTH AND SAFETY SPECIALIST RAD^^^OW XR Chest 2 Views 10/20/2009 15:16:00 Addendum by Ned Rai M.D. o n 10/20/2009 3:16 PM HEALTH AND SAFETY SPECIALIST RAD^^^MA XR CHEST 2 VIEWS 10/20/2009 15:16:00 Impressions 10/20/2009 3:34 PM HEALTH AND SAFETY SPECIALIST No acute findings. Mild cardiomegaly. Narrative 10/20/2009 3:34 PM HEALTH AND SAFETY SPECIALIST HISTORY: Asthma. ?? COMPARISON: None. ?? FINDINGS: [...] No acute findings. Mild card iomegaly. Otis Farmer(Michael) IMG DIAGNOSTIC IMAGING PROCE DURES documented in this encounter Visit Diagnoses Not on filedocumented in this encounter
--- OUTSIDE RECORDS SUMMARY | 2022-08-14 22:23 | XMS_ITS | Encounter Summary ---
:1940 Author Organization [facility] Address [address] [place] [address] Care Team Providers Name Role Phone Unavailable Primary Care Provider Unavailable Encounter Details Date Type Department Care Team Description 04/13/2011 Hospital Encounter HX [facility] Tino Horn P.A.-C. [address] [place] [address] (Wo rk) Social History Tobacco [...] Horn P.A.-C. - 04/13/2011 12:00 AM CDT [id number] CHIEF COMPLAINT/REASON FOR VISIT Followup of her [...] HORN PA-C On: 04/16/2011 01:24 PM [facility] Document Id: [id number] documented in this encounter Miscellaneous Notes Miscellaneous - Apolonia Horn P.A.-C. - 04/13/2011 9:39 AM CDT Ambulatory Patient Summary [address] [address] Visit Information Name: AINSLEY GANHDI Current Date: 04/13/2011 09:39:25 Primary Care Provider: [...] No Appointments found Your Goals/Additional instructions: Source: [facility] POWERCHART Document Id: [id number] Electronically signed by Nikos, [facility] Physical Therapy Technician [id number] at 03/10/2017 3:00 PM CDT Miscellaneous - Apolonai Horn P.A.-C. - 04/13/2011 9:39 AM CDT Ambulatory Depart Summary [address] [address] Visit Information Name: AINSLEY GANDHI Current Date: [...] to the patient and/or family, guardian/caregiver. Source: [facility] POWERCHART Document Id: [id number] Electronically signed by Conversion, [facility] Physical Therapy Technician [id number] at 03/10/2017 3:00 PM CDT Miscellaneous - Conversion, Historical Provider Ser - 04/13/2011 9:14 AM CDT Adult Lease Purchase Driver Intake/History Adult Lease Purchase Driver Intake/History Entered On: 04/13/2011 9:19 CDT Performed [...] MD; Reviewed Date: 04/13/2011 9:12 CDT Source: [facility] [employer] Document Id: [id number] CDT!30 documented in this encounter Plan of Treatment Upcoming Encounters Date Type Specialty Care Team Description 08/22/2022 Clinical Communication Admitting/Central Scheduling 08/24/2022 Appointment Radiation Oncology Sue Barry M.D. [address] [place] [address] documented as of this encounter Visit Diagnoses Not on filedocumented in this encounter
--- OUTSIDE RECORDS SUMMARY | 2022-08-14 22:23 | XMS_ITS | Encounter Summary ---
:1940 Author Organization [facility] Address [address] [place] [address] Care Team Providers Name Role Phone Unavailable Primary Care Provider Unavailable Encounter Details Date Type Department Care Team Description 05/23/2011 Hospital Encounter HX [facility] Naomi Parker, MISA, C.N.P., D. N.P. [address] [place], [place] [address] (Wo rk) Social History [...] Appointment Radiation Oncology Sue Barry M.D. [address] [place] [address] documented as of this encounter Visit Diagnoses Not on filedocumented in this encounter
--- OUTSIDE RECORDS SUMMARY | 2022-08-14 22:23 | XMS_ITS | Encounter Summary ---
:1940 Author Organization [facility] Address [address] [place] [address] Care Team Providers Name Role Phone Unavailable [...] Chi C.N.P. - 02/05/2011 12:00 AM CDT [id number] IMPRESSION/REPORT/PLAN 1. Asthma. ACT score today is an 11. I did review asthma action plan with her today and she will continue on her Prednisone up through 7 days. She will follow up if gets worse with wheezing or shortness of breath. She will also follow up in one month either here or with her primary at [facility] for recheck of her asthma [...] flare up. She was recently in the [facility] with her son who has cats and she did get what she calls an asthma flare. She started prednisone 20 mg daily and is currently on day 6 of that. She will continue for one more day per the recommendation of her physician at [facility]. She is also continuing to use Albuterol as well. She does [facility] for her primary care and for her [...] MICHELLE CHI CNP On: 02/08/2011 08:21 Source: [facility]SDOLBE[facility]NONRADSYS Document Id: [id number] documented in this encounter Miscellaneous Notes Miscellaneous [...] CHI CNP - 02/05/2011 16:39 CDT Source: [facility] POWERCHART Document Id: [id number] CDT!5 Miscellaneous - Michelle Chi C.N.P. - 02/05/2011 4:32 PM CDT Ambulatory Patient Summary [address] [address] Visit Information Name: ELISE GANDHI Current Date: [...] No Appointments found Your Goals/Additional instructions: Source: [facility] POWERCHART Document Id: [id number] Electronically signed by Nikos, [facility] Corporate Operations Compliance Manager [id number] at 03/10/2017 6:33 PM CDT Miscellaneous - Michelle Chi, C.N.P. - 02/05/2011 4:32 PM CDT Ambulatory Depart Summary [address] [address] Visit Information Name: ELISE GANDHI Current Date: 02/05/2011 16:32:14 Primary Care Provider: MICHELLE CHI [facility] ELISE GANDHI has been given the [...] not getting better. either follow up at [facility] or here in one month for recheck of the asthma action plan. Yes - Current list of reconciled medications is provided and explained to the patient and/or family, guardian/caregiver. Source: [facility] POWERCHART Document Id: [id number] Electronically signed by Nikos, [facility] Corporate Operations Compliance Manager [id number] at 03/10/2017 6:33 PM CDT Miscellaneous - Conversion, Historical Provider Ser - 02/05/2011 4:00 PM CDT Adult Channel Specialist Intake/History Adult Channel Specialist Intake/History Entered On: 02/05/2011 16:05 CDT Performed [...] MD; Reviewed Date: 02/05/2011 15:57 CDT [facility] Document Id: [id number] CDT!33 documented in this encounter Plan of Treatment Upcoming Encounters Date Type Specialty Care Team Description 08/22/2022 Clinical Communication Admitting/Central Scheduling 08/24/2022 Appointment Radiation Oncology Jhonny, Sue I., M.D. [address] [place] [id number] documented as of this encounter Visit Diagnoses Not on filedocumented in this encounter
--- OUTSIDE RECORDS SUMMARY | 2022-08-14 22:23 | XMS_ITS | Clinical Summary ---
:1940 Author Organization [facility] [place] [address] Care Team Providers Name Role Phone Varsha Garcia INVESTIGATIONS CONSULTANT Primary Care Provider Allergies Active Allergy Reactions Severity Noted Date Comments Cats (Fur, Dander, Saliva) Shortness Of Breath 016 Codeine *Unknown 11/01/2014 Prochlorperazine Mental Status Change 11/01/2014 Dust Mites *Unknown 11/01/2014 Medications Medication Sig Dispensed Refills Start Date End Date Status omega-3 fatty Take 1 capsule 0 A ctive acids-vitamin E (FISH by mouth 3 times OIL) 1,000 mg cap daily with meals. calcium Take 1 tablet by 0 Act carrie carbonate-vitamin D3, mouth 3 times 600 mg-400 unit, daily with (CALCIUM 600 + D) 600 meals. mg(1,500mg) -400 unit tablet ondansetron (ZOFRAN) 4 Take 1 tablet by 10 tablet 0 11/05/2014 Active mg tablet mouth every 8 hours if needed for Nausea/Vomiting. clotrimazole (LOTRIMIN) Apply topically 60 g 1 10/16/2016 Active 1 % cream to affected area(s) 2 times daily. sennosides (SENNA) 8.6 Take 1-2 tablets 20 tablet 0 05/07/2019 Active mg tablet by mouth 2 times daily if needed. ondansetron (ZOFRAN ODT) Place 1 tablet 10 tablet 0 05/07/2019 Active 4 mg disintegrating on the tongue tablet every 6 hours if needed for nausea. acetaminophen (TYLENOL Take 1-2 tablets 100 tablet 0 9 Active EXTRA STRGTH) 500 mg by mouth every 6 tabletIndications: hours if needed. Presence of right artificial knee joint HYDROcodone-acetaminophe Take 1 to 2 20 tablet 0 05/14/2019 Active n, 5-325 mg, (NORCO) per tablets by mouth tablet every 4 to 6 hours if needed for pain predniSONE (DELTASONE) Take 1 tablet by 20 tablet 2 12/28/2019 Active 10 mg tablet mouth once daily with a meal. triamcinolone Apply topically 30 g 0 06/14/2021 Active (ARISTOCORT; KENALOG) to affected 0.1 % cream area(s) 1-2 times daily if needed. Avoid face and groin. triamcinolone Apply to 30 g 0 06/15/2021 Activ e (ARISTOCORT; KENALOG) affected area 0.1 % cream 1-2 times daily as needed. Avoid face and groin. ketoconazole 2% shampoo Apply 1 120 mL 06/30/2021 Active (NIZORAL) 2 % application shampooIndications: topically 3 Erythema intertrigo (three) times a week. Apply to damp skin, lather, leave on 5 minutes, and rinse ketoconazole 2% topical Apply 1 60 g 06/30/2021 Active (NIZORAL) application creamIndications: topically 2 Erythema intertrigo (two) times a day. Apply to red areas between folds of skin. fluticasone (50 mcg per Inhale 1 Fyffe 16 g 07/04/2021 Active actuation) nasal to both nostrils solution (FLONASE) once daily if needed for rhinitis or allergies. albuterol HFA (PRO-AIR; Inhale 2 Puffs 54 g 02/16/2022 Active VENTOLIN; PROVENTIL) 90 by mouth every 4 mcg/actuation inhaler hours if needed for wheezing. montelukast (SINGULAIR) Take 1 Tablet 90 Tablet 02/19/2022 Active 10 mg tablet (10 mg) by mouth once daily. pravastatin (PRAVACHOL) Take 1 Tablet 90 Tablet 02/19/2022 Active 40 mg tablet (40 mg) by mouth once daily. fluticasone Inhale 1 Puff by 180 Each 02/23/2022 Active propion-salmeteroL mouth once (Advair Diskus) 100-50 daily. mcg/dose diskus inhaler celecoxib (CELEBREX) 200 Take 1 Capsule 90 Capsule 3 2 Active mg capsule (200 mg) by mouth once daily with a meal. hydroCHLOROthiazide Take 1 Tablet 90 Tablet 3 03/01/2022 Active (HCTZ) 25 mg tablet (25 mg) by mouth once daily. levothyroxine Take 1 Tablet 90 Tablet 3 03/01/2022 A ctive (SYNTHROID) 75 mcg (75 mcg) by tablet mouth once daily. azelastine 137 Inhale 2 Sprays 30 mL 12 03/20/2022 Active mcg/actuation (ASTELIN) into affected nasal spray nostril(s) in the morning and 2 Sprays in the evening. lisinopriL (PRINIVIL; Take 1 Tablet 90 Tablet 3 07/09/2022 Active ZESTRIL) 40 mg tablet (40 mg) by mouth once daily. HYDROcodone-acetaminophe Take 1 to 2 14 Tablet 0 07/26/2022 Active n (NORCO) 5-325 mg per tablets by mouth tablet every 6 hours As Needed for Pain; ondansetron (ZOFRAN ODT) Take 1 tablet (4 5 Tablet 0 07/26/20 Active 4 mg disintegrating mg) by mouth tablet every 8 hours As Needed for nausea and vomiting tiotropium bromide Inhale 2 Puffs 4 g 1 08/14/2022 Active (Spiriva Respimat) 1.25 by mouth once mcg/actuation mist for daily in the inhalation morning. azithromycin (ZITHROMAX) Take 500 mg 6 Tablet 0 08/14/2022 Active 250 mg tablet today (day 1), then 250 mg for 4 days (days 2-5) amoxicillin (AMOXIL) 500 Take 4 Capsules 12 Capsule 0 07/16/20 22 07/17/20 mg capsule (2,000 mg) by 22 mouth one time 1 hour prior to dental appointment. predniSONE (DELTASONE) Take 1 Tablet 20 Tablet 0 08/03/2022 10 mg tablet (10 mg) by mouth 22 once daily with a meal for 3 days, THEN 0.5 Tablets (5 mg) once daily with a meal for 4 days. Active Problems Problem Noted Date Spondylolisthesis of lumbar region 04/06/2016 Lumbar facet arthropathy 04/06/2016 Lumbar foraminal stenosis 04/06/2016 Adjustment disorder with mixed anxiety and depressed m ood 01/23/2007 Resolved Problems Problem Noted Date Resolved Date Bereavement, uncomplicated 01/23/2007 04/06/2016 Encounters Date Type Specialty Care Team Description 07/26/2022 Lab Requisition Barbra Lamas MD 07/09/2022 Transcribe Orders Barbra Lamas MD 06/23/2022 [...] CDT Respiratory Rate 16 11/05/2014 8:14 AM MATERIAL CONTROL ASSOCIATE Oxygen Saturation 96% 03/23/2019 11:30 AM CDT Inhaled Oxygen Concentration - - Weight 101.2 kg (223 lb) 03/23/2019 11:30 AM CDT Height 161 cm (5' 3.39) 2014 7:04 AM MATERIAL CONTROL ASSOCIATE Body Mass Index 39.02 2014 7:04 AM MATERIAL CONTROL ASSOCIATE Plan of Treatment Upcoming Encounters Date Type Specialty Care Team Description 10/15/2022 Telemedicine Alexandra Jeff [place], [facility] [place] [address] [place] [address] [facility] [address] [address] [place] [address] (Wo rk) Health Maintenance Due Date Last [...] 65+ 06/07/2022 Medical Devices Implanted Type Area Child Care Lead Teacher Device Shelf Model / Identifier Expiration Serial / Date Lot [id number] - [id number] Ortho Left: DEPUY 01/07 1518-20-035 / Implanted: Qty: 1 on 2014 by Babatunde Mclain MD at [facility] Total Knee / Joint [id number] Description: Attune Patella Medialized D ome 35mm Cemented AOX [id number] - [id number] Left: Knee DEPUY 1516-40-505 / Implanted: Qty: 1 on 2014 by Babatunde Mclain MD at [facility] / [id number] Description: Attune Tibial Insert Fixed Bearing Posterior Stabilized Procedures Procedure Name Priority Date/Time Associated Diagnosis Comme nts LAB TRACKING EVENT Routine 07/26/2022 10:11 AM CDT PATH TISSUE EXAM Routine 07/26/2022 10:11 AM Resu lts for this CDT procedure are i n the results section. LAB TRACKING EVENT Routine 06/22/2022 10:41 AM CDT PATH BREAST CORE Routine 06/22/2022 10:41 AM Resu lts for this BIOPSY CDT procedure are i n the results section. from Last 3 Months Results LAB TRACKING EVENT (07/26/2022 10:11 AM CDT)Only the most recent of2 results within the time period is included. Specimen Anatomical Collection Method Collection Time Receive d Time (Source) Location / / Volume Laterality Other (Other) Client Collect / 07/26/2022 10:11 2021 2:26 Unknown AM CDT PM CDT Barbra Lamas MD LAB BILL ONLY Performing Organization Address City/State/ZIP Code Phon e Number [email or web address] [phone] [place] [address] LABORATORY-CENTRAL 1999 LABORATORY PATH TISSUE EXAM (07/26/2022 10:11 AM CDT) Component Value Ref Test Analysis Performed At [facility] gist Range Method Time Signature Case Report Pathology Report ?Case: [id number] ? 07/27/2022 [facility] Authorizing Provider: ??Barbra White MD ??Collected: ? 07/26/2022 1011 ? 3:01 PM HEALTH Ordering Location: ? L CENTRAL LAB ?Received: ?07/26/2022 1432 ? CDT LA KAVITHA-Abelardo Pathologist: ? Clemencia Perez MD ? ENTRAL Specimens: ?? A) - Left [address] st Lump ? LABORATORY ? B) - Left Axillary [place] Lymph Node 1 ? C) - Left Axillary [place] Lymph Node 2 ? Final Diagnosis A) LEFT BREAST, LUMPECTOMY: 2021 [facility] Electronically 1. Invasive ductal carcinoma, Lowpoint grade I of III 3:01 PM HEALTH signed by Chris, ?a. Size: 15 mm CDT LABORATOR Carolina Chavez MD ?b. Core biopsy site is associated with tumor ENTRAL on 07/27/2022 at 2. Ductal carcinoma in situ (DCIS), nucl ear grade 2, Cribriform and Solid type LABORATORY 3:01 PM 3. Margins: ?a. Invasive carcinoma is > 5 ??mm from all margins ?b. DCIS is > 5 ??mm from all margins 4. Breast Ancillary Testing: Performed on prior case ([id number]) ?a. Hormone Receptors: ?Estrogen receptor: Positive (99%, strong stai wilfrido) ?Progesterone receptor: Positive (98%, strong staining) ?b. HER2 by IHC: Negative (1+ by manual morphometry) ?c. Ki67: 7% 5. Surrounding breast with usual ductal hyperplasia B) LEFT AXILLARY SENTINEL LYMPH NODE 1, EXCISION: 1. One benign lymph node (0/1) 2. Negative for malignancy C) LEFT AXILLARY SENTINEL LYMPH NODE 2, EXCISION: 1. One benign lymph node (0/1) 2. Negative for malignancy Clinical Breast cancer 07/27/2022 [facility] Information 3:01 PM HEALTH CDT LABORATORY-C ENTRAL LABORATORY Gross A) Received fresh labeled wi th the patient's name and left breast lump, is a 74 g, 8 (M-L) x 7 (S-I) x 4.5 (A-P) cm portion of wire localized fibrofatty breast tissue, previously inked by the surgeon as follows: 07/27/2022 [facility] Description 3:01 PM HEALTH Anterior--[place] CDT LABORATORY-C Posterior--Black ENTRAL Superior--Blue LABORATORY Inferior--Red Medial--Green Lateral--Yellow Note: There is significant b lack ink seepage along the posterior aspect of the entire specimen. The specimen is serially sec tioned lateral to medial into 11 slices revealing a spiculated mass with biopsy clip in slices 4 and 5, measuring 1.5 (A-P) x 1 (M- L) x 1 (S-I) cm in greatest dimension. ??Gr ossly, tumor comes to within 0.7 cm of anterior margin, 1.7 cm from inferior and posterior margins, 2 cm from superior margin, and greater than 2 cm from medial and lateral margins. ??Overall, the speci men is comprised of 10% fibr ous tissue and 90% adipose tissue with no additional masses. ??A digital image has been uploaded. ??Holder Pile Driving sections are submitted as follows: 1. ??Sections perpendicular to lateral margin (from slice 1) 2. ??Middle third, slice 2 3. ??Section from slice 3 with anterior margin, adjacent to tumor 4- 9. ??Composite slice 4 with tumor and biopsy site 10. ??Remainder of tumor in slice 5 with relation to anterio r margin 11. ??Section from slice 6 with anterior margin (adjacent to tumor) 12. ??Section from slice 7 with anterior margin 13. ??Section from slice 8 with posterior margin 14. ??Section from slice 9 with posterior margin 15. ??Middle third, slice 10 16. ??Sections perpendicular to medial margin (from slice 11 ) Time removed from patient: 1011 Time placed in formalin: 1058 Date removed and placed in formalin: 07/26/2022 Cold ischemic time < 60 john ghada. The specimen was fixed in formalin for a minimum of 6 hours and not longer than 72 hours. B) Received fresh labeled wi th the patient's name and left axillary sentinel node, is a 2 cm portion of fibrofatty tissue with 1 identifiable lymph node measuring 1.8 cm. ??The lymph node is trisected and entirely submitted in 2 cassettes. Time removed from patient: 1055 Time placed in formalin: 1105 Date removed and placed in formalin: 07/26/2022 Cold ischemic time < 60 john ghada. The specimen was fixed in formalin for a minimum of 6 hours and not longer than 72 hours. C) Received fresh labeled wi th the patient's name and left breast sentinel node, is a 1.6 cm lymph node, trisected and entirely submitted in 1 cassette. Time removed from patient: 1103 Time placed in formalin: 1110 Date removed and placed in formalin: 07/26/2022 Cold ischemic time < 60 john ghada. The specimen was fixed in formalin for a minimum of 6 hours and not longer than 72 hours. TRB 07/26/2022 Intraoperative A) LEFT BREAST, LUMPECTOMY, INTRAOPERATIVE CONSULTATION (Gross Evaluation Only): 07/27/2022 [facility] Consultation 1. Tumor grossly identified 3:01 PM HEALTH 2. Biopsy site change is identified grossly CDT LABORATORY-C 3. Margins are grossly negative by 7 mm (the closest irma n is anterior) ENTRAL LABORATORY B) LYMPH NODE, LEFT AXILLARY SENTINEL 1, INTRAOPERATIVE CONS ULTATION: 1. Lymph node is present Chitra Long MD, via tel epathology with TORIE Macias, 07/26/2022 10:35 AM ??Intraoperative consultati on, which may have included frozen section preparation, gross specimen examination, and/or cytology touch imprints/smears, was performed by a pathologist during the surgical procedure. ??This testing was performed at: [place] [address] Microscopic The final 07/27/2022 [facility] Description diagnosis is 3:01 PM HEALTH based on CDT LABORATORY-C microscopic ENTRAL examination of LABORATORY appropriate sections of all specimens. 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 Procedure: ?Excision (less than total mastectomy) ?? Specimen Laterality: ?Left TUMOR ?? Tumor Site: ?Clock position ?? : ?2 o'clock Histologic Type: ?Invasive carcinoma of no special type (ductal) Histologic Grade (Lowpoint Histologic Score): ? Glandular (Acinar) / Tubular Differentiation: ?Score 2 ?? Nuclear Pleomorphism: ?Score 2 ?? Mitotic Rate: ?Score 1 ?? Overall Grade: ?Grade 1 (scores of 3, 4 or 5) Tumor Size: ?Greatest d imension of largest invasive focus (Millimeters): 15 mm Tumor Focality: ?Single focus of invasive carcinoma Ductal Carcinoma In Situ (DCIS): ?Present ?? : ?Negative for extensive intraductal component (EIC ) ?? Architectural Patterns: ?Cribriform ?? Architectural Patterns: ?Solid ?? Nuclear Grade: ?Grade II (intermediate) ?? Necrosis: ?Not identified Lobular Carcinoma In Situ (LCIS): ?Not identified Lymphovascular Invasion: ?Not identified Dermal Lymphovascular Invasion: ?No skin present Treatment Effect in the Breast: ?No known presurgical t herapy MARGINS Margin Status for Invasive Carcinoma: ?All margins negative for invasive carcinoma ?? Distance from Invasive C arcinoma to Closest Margin: ?Greater than: 5 mm ?? Closest Margin(s) to Invasive Carcinoma: ?From all m argins Margin Status for DCIS: ?All margins negative for DCIS ?? Distance from DCIS to Closest Margin: ?Greater than: 5 mm ?? Closest Margin(s) to DCIS: ?From all margins REGIONAL LYMPH NODES Regional Lymph Node Status: ? : ?All regional lymph nodes negative for tumor ?? Total Number of Lymph Nodes Examined (sentinel and non-sentinel): ?2 ?? Number of [place] Nodes Examined: ?2 PATHOLOGIC STAGE CLASSIFICATION (pTNM, AJCC 8th Edition) ?? Reporting of pT, pN, and (when applicable) pM categories is based on information available to the pathologist at the time the report is issued. As per the AJCC (Chapter 1, 8th Ed.) it is the managin g physician? s responsibility to establish the final pathologic stage based upon all pertinent information, including but potentially not limited to this pathology report. pT Category: ?pT1c Regional Lymph Nodes Modifier: ?(sn): [place] node(s) evaluated. pN Category: ?pN0 Comment(s): ?Ancillary studies block: A10 Additional 07/27/2022 [facility] Laboratory - [address] [facility] [address], [place] [address] 3:01 HEALTH CDT LABORATORY-C ENTRAL LABORATORY Specimen Anatomical Collection Method Collection Time Receive d Time (Source) Location / / Volume Laterality Other (Left 07/26/2022 10:11 07/26/2022 2:32 Breast Lump) AM CDT PM CDT Specimen 07/26/2022 10:55 07/26/2022 2:32 (specimen) (Left AM CDT PM CDT Axillary [place] Lymph Node 1) Specimen 07/26/2022 11:03 07/26/2022 2:32 (specimen) (Left AM CDT PM CDT Axillary [place] Lymph Node 2) Barbra Lamas MD PATHOLOGY/CYTOLOGY Performing Organization Address City/State/ZIP Code Phon e Number [email or web address] [phone] [place] [address] LABORATORY-CENTRAL 2000 LABORATORY PATH BREAST CORE BIOPSY (06/22/2022 10:41 AM CDT) Component Value Ref Test Analysis Performed At [facility] gist Range Method Time Signature Case Report Pathology Report ?Case: [id number] ? 06/27/2022 [facility] Authorizing Provider: ??Unkn own, Doctor ?Collected: ? 06/22/2022 1041 ? 1:18 PM HEAL TH Ordering Location: ? [facility] CENTRAL LAB ?Received: ?06/23/2022 0748 ? CDT LASHA PAYANC Pathologist: ? Jj Lema MD ? ENTRAL Specimen: ?Left Breast ? LABORATORY Amendment 06/27/2022 - 06/27/2022 [facility] Amendment issued 1:18 PM HEALTH to incorporate CDT LABORATORY-C ancillary ENTRAL studies. LABORATORY Final A) LEFT BREAST, 2:00, 4 CM FROM NIPPLE, ULTRASOUND-GABRIELA DED CORE BIOPSY: 06/27/2022 [facility] Amendment Diagnosis 1. Invasive ductal carcinoma 1:18 PM H EALTH electronically ?? a. Alvaro grade: I of III; Alvaro score: 5 of 9 CDT LABORATORY-C signed [...] LABORATORY SYNOPTIC Breast Biomarker Reporting Template 06/08 [facility] REPORTING Left Breast - A 1:18 PM [...] Drug Administration (FDA) cleared (test / vendor): Lovilia ? Primary Antibody: ?4B5 ?? Test(s) Performed: [...] Ki-67. Additional 06/27/2022 [facility] Information Interpreted at [facility], Central Laboratory - [address], [place] [address] 1:18 PM HEALTH CDT LABORATORY-C ENTRAL LABORATORY Specimen Anatomical Collection Method Collection Time Receive d Time (Source) Location / / Volume Laterality Other (Left 06/22/2022 10:41 06/23/2022 7:48 Breast) AM CDT AM CDT Doctor Unknown PATHOLOGY/CYTOLOGY Performing Organization Address City/State/ZIP Code Phon e Number [email or web address] [phone] [place] [address] LABORATORY-CENTRAL 2000 LABORATORY from Last 3 Months Insurance Payer Benefit Plan / Subscriber ID Effective Dates Phone Addre ss Type Group MEDICARE PART A MEDICARE PART A [id number] 2007-Presen ATTN: CLAIMS - HB USE ONLY HB ONLY t [address] [place] [address] MEDICARE PART B MEDICARE PART B [id number] 2007-Presen ATTN: CLAIMS - HB USE ONLY HB ONLY t [address] [place] [address] BLUE CROSS MR MR BC TORRES MARTINEZ [id number] 2014-Presen [address] [place] [address] BLUE CROSS MR BLUE CROSS [id number] 2016-Presen [address] [address] TORRES MARTINEZ BLUE t [place], [place] MR PB ONLY [id number] Sadiq Personal/Family Self 1940 [address] [place] (Home) [place] [address] Care Teams Emergency Management Director Relationship Specialty Start Date End Date Varsha Garcia, INVESTIGATIONS CONSULTANT PCP - General Emergency Medicine 03/07/[address] [place] [address] [place] [id number]
--- OUTSIDE RECORDS SUMMARY | 2022-08-14 22:23 | XMS_ITS | Encounter Summary ---
:1940 Author Organization [facility] Address [address] [place] [address] Care Team Providers Name Role Phone Unavailable Primary Care Provider Unavailable Encounter Details Date Type Department Care Team Description 09/12/2012 Hospital Encounter HX [facility] Srinivas Andrade M.D. [address] [place] [address] [phone] (Wo rk) Social History Tobacco [...] Parker APRN, C.N.P. - 09/14/2012 7:16 PM HEALTH SAFETY AND ENVIRONMENT MANAGER Results Notification Document Contains Addenda Addendum by PIYUSH ALVAREZ on 16 September 2012 15:31:28 HEALTH SAFETY AND ENVIRONMENT MANAGER Notified From: ELIZABETH POTTER DENTAL OFFICE COORDINATOR To: DAVID Pascual Nurse Sent: 09/14/2012 19:16:56 HEALTH SAFETY AND ENVIRONMENT MANAGER ! Show up: 09/15/2012 01:16:56 [facility] Subject: Results Notification Actions: Notify patient-refer to General Message Source: [facility] POWERCHART Document Id: [id number] Miscellaneous - Elizabeth Parker APRN, C.N.P. - 09/12/2012 11:55 AM HEALTH SAFETY AND ENVIRONMENT MANAGER Results Notification Document Contains Addenda Addendum by PIYUSH ALVAREZ on 16 September 2012 15:18:41 HEALTH SAFETY AND ENVIRONMENT MANAGER Spoke with patient. She will car pick up driver a paper copy of rx and is also requesting lab results to be printed. Will leave at the front desk assistant for her to car pick up driver. Addendum by TITA CALDWELL on 15 September 2012 17:11:13 HEALTH SAFETY AND ENVIRONMENT MANAGER Unable to reach faxed RX to [facility]. From: ELIZABETH POTTER CNP To: DAVID Pascual Nurse Sent: 09/12/2012 11:55:31 HEALTH SAFETY AND ENVIRONMENT MANAGER ! Show up: 09/12/2012 17:55:31 [facility] Subject: Results Notification Actions: Notify patient-refer to General Message Source: [facility] POWERCHART Document Id: [id number] documented in this encounter Plan of Treatment Upcoming Encounters Date Type Specialty Care Team Description 08/22/2022 Clinical Communication Admitting/Central Scheduling 08/24/2022 Appointment Radiation Oncology Sue Barry M.D. [address] [place] [address] documented as of this encounter Procedures Procedure Name Priority Date/Time Associated Comments Diagnosis LIPID PANEL, S Routine 09/12/2012 9:36 Results fo r this AM HEALTH SAFETY AND ENVIRONMENT MANAGER procedure are i n the results section. ASPARTATE Routine 09/12/2012 9:36 Results for this AMINOTRANSFERASE (AST), AM HEALTH SAFETY AND ENVIRONMENT MANAGER proc edure are in S/P the results section. THYROID-STIMULATING Routine 09/12/2012 9:36 Resul ts for this HORMONE-SENSITIVE AM HEALTH SAFETY AND ENVIRONMENT MANAGER procedure are in (S-TSH) the results section. BASIC METABOLIC PANEL, Routine 09/12/2012 9:36 Re sults for this S/P AM HEALTH SAFETY AND ENVIRONMENT MANAGER procedure are i n the results section. documented in this encounter Results Thyroid-Stimulating Hormone-Sensitive (s-TSH) (09/12/2012 9:36 AM HEALTH SAFETY AND ENVIRONMENT MANAGER) athologist Signature TSH, Sensitive 1.2 0.3 - 5.0 POWERCHART MIUL Comment: Test Performed by: [place] [address] Bail Attacher: Michael marquis III, M.D. Specimen (Source) Anatomical Collection Method Collection Time Re ceived Time Location / / Volume Laterality Blood 09/12/2012 9:36 AM HEALTH SAFETY AND ENVIRONMENT MANAGER Elizabeth Parker APRN, C.N.P., D.N.P. LAB BLOOD ADD-ON Performing Organization Address City/State/ZIP Code Phon e Number POWERCHART AST (Aspartate Aminotransferase) (09/12/2012 9:36 AM HEALTH SAFETY AND ENVIRONMENT MANAGER) [facility] gist Method Time Signature Aspartate 24 8 - 43 POWERCHART Aminotransferase UNITL (AST), S Specimen (Source) Anatomical Collection Method Collection Time Re ceived Time Location / / Volume Laterality Blood 09/12/2012 9:36 AM HEALTH SAFETY AND ENVIRONMENT MANAGER Elizabeth Parker APRN, C.N.P., D.N.P. LAB BLOOD ADD-ON Performing Organization Address City/State/ZIP Code Phon e Number POWERCHART (ABNORMAL) Lipid Panel (09/12/2012 9:36 AM HEALTH SAFETY AND ENVIRONMENT MANAGER) [facility] gist Method Time Signature Cholesterol, Total 190 0 - 200 POWERCHART MGDL HX HDL 47.0 40.0 - POWERCHART 60.0 MGDL Triglycerides 124 0 - 150 POWERCHART MGDL Calculated LDL 118 (H) 0 - 100 POWERCHART MGDL Specimen (Source) Anatomical Collection Method Collection Time Re ceived Time Location / / Volume Laterality Blood 09/12/2012 9:36 AM HEALTH SAFETY AND ENVIRONMENT MANAGER Elizabeth Parker APRN, C.N.P., D.N.P. LAB BLOOD ADD-ON Performing Organization Address City/State/ZIP Code Phon e Number POWERCHART BMP (Basic Metabolic Panel) (09/12/2012 9:36 AM HEALTH SAFETY AND ENVIRONMENT MANAGER) athologist Signature BUN (Blood Urea 17 6 [...] / Volume Laterality Blood 09/12/2012 9:36 AM HEALTH SAFETY AND ENVIRONMENT MANAGER Elizabeth Parker APRN, C.N.P., D.N.P. LAB BLOOD ADD-ON Performing Organization Address City/State/ZIP Code Phon e Number POWERCHART documented in this encounter Visit Diagnoses Not on filedocumented in this encounter
--- OUTSIDE RECORDS SUMMARY | 2022-08-14 22:23 | XMS_ITS | Encounter Summary ---
:1940 Author Organization [facility] Address [address] [place] [address] Care Team Providers Name Role Phone Unavailable [...] Oncology Sue Barry M.D. [address] [place] [address] documented as of this encounter Procedures Procedure [...] by: ?? Yovany Shanks MD. [id number] 17-Jun-20 15:04 Procedure Note Yovany Shanks M.D. - [...] signed by: Yovany Shanks MD. [id number] 17-Jun-20 15:04 Anusha Pacheco APRN, C.N.P., D.N.P. IMG [...] Electronically signed by: ?? Yovany Shanks MD. [id number] 17-Jun-20 15:04 Procedure Note Yovany Sahnks M.D. - 01/14/2018Fo rmatting of this note [...] Only Electronically signed by: Yovany Shanks MD. [id number] 17-Jun-20 03 15:04 Abelardo Lopez APRN.N.P., D.N.P. IMG BI PROCEDURES Echocardiogram (06/17/2003 9:59 AM CDT) Anatomical Region Laterality Modality Echocardiography Specimen (Source) Anatomical Collection Method Collection Time Re ceived Time Location / / Volume Laterality 06/17/2003 9:59 AM CDT Historical Provider CV ECHO PROCEDURES documented in this encounter Visit Diagnoses Not on filedocumented in this encounter
--- OUTSIDE RECORDS SUMMARY | 2022-08-14 22:23 | XMS_ITS | Encounter Summary ---
:1940 Author Organization [facility] Address [address] [place] [address] Care Team Providers Name Role Phone Unavailable [...] Chi C.N.P. - 08/23/2010 12:00 AM CST [id number] IMPRESSION/REPORT/PLAN 1. Physical exam satisfactory. Will schedule fro screening mammogram and screening dermatology appointment down at [place]. She was given a flu shot today. 2. Hypertension 3. Hyperlipidemia 4. Hypothyroidism. TSH, lipid panel and comprehensive panel pending. Will continue her medications of atenolol, Lisinopril, chlorthalidone, levothyroxine and Pravachol. Those will be renewed today. 5. Asthma. ACT 23 done at [place] August 21, 2010. The patient is on Symbicort and Albuterol. She will follow up as needed. Asthma action plan was given to her at that visit at [place] and she has no questions or concerns. [...] history of asthma and was seen in [place] for a recheck of that earlier this [...] scheduled Pap smear: N/A Colon screenin08/18/09 at [place] Depression: No Asthma: Yes. ACT score of 23 Lipids: 09/14 Tdap booster: 07/25/07 Pneumovax: 09/15/08 Influenza: Will done today VITAL SIGNS DATE/TIME 08/23/2010 WEIGHT 84.8 kg TEMPERATURE [id number] BMI 32 RESP RATE 18/ min PULSE [...] swelling, lesions or discharge noted from Bartholin's, [place]'s or urethra. Bimanual exam performed. No CMT. [...] reflexes 2+. NLP/cmt Signed Michelle Gould RN, [employer] Family Nurse Practitioner Electronically Signed By:MICHELLE CHI CNP On 08/25/2010 11:13 AM Source: [facility] MHSDOLBEYNONRADSYS Document Id: [id number] MACHINE OPERATOR documented in this encounter Nursing Notes Conversion, Historical Provider Ser - 09/08/2010 2:33 PM CST mammogram results from [facility] Called patient - informed of normal mammogram results. Electronically Signed By:KVNG PAULINO LPN On 09/08/2010 02:34 pm Source: [facility] POWERCHART Document Id: [id number] Michelle Chi C.N.P. - 08/23/2010 9:40 AM CST Asthma Assessment Asthma Assessment Entered On: 08/23/2010 9:41 SMT MACHINE OPERATOR Performed On: 08/23/2010 9:40 SMT MACHINE OPERATOR by MICHELLE CHI CNP History Co-Morbidities Asthma: Allergic rhinitis, Obesity, Sinusitis ED visits past yr for asthma w/o hospital stay: 0 Hospitalizations/Overnight Stays in Past yr for Asthma: 0 Number of Endotracheal Intubations: 0 B-2 Agonist Use: None Severity Classification: Mild Intermittent MICHELLE CHI CNP - 08/23/2010 9:40 SMT MACHINE OPERATOR Asthma Precipitating Factors Grid Airborne Particles: Yes Animals: Yes House Dust: Yes Mold: Yes Upper Respiratory Infection: Yes MICHELLE CHI CNP - 08/23/2010 9:40 SMT MACHINE OPERATOR Source: [employer] Document Id: [id number] SMT MACHINE OPERATOR!14 MACHINE OPERATOR documented in this encounter Miscellaneous Notes Miscellaneous - Michelle Chi C.N.P. - 08/23/2010 9:41 AM CST Quality Measures Quality Measures Entered On: 08/23/2010 9:42 SMT MACHINE OPERATOR Performed On: 08/23/2010 9:41 SMT MACHINE OPERATOR by MICHELLE CHI CNP BP/Tobacco/Misc Systolic Blood Pressure: 118mmHg Diastolic Blood Pressure: 78mmHg Tobacco Use/Currently Using: No Tobacco Use/Last 12 months: No MICHELLE CHI CNP - 08/23/2010 9:41 SMT MACHINE OPERATOR Asthma Asthma Control Test (ACT) Score: 23 Asthma Action Plan Provided/Reviewed: Reviewed with the patient Asthma Action Plan Copy: Other: in [facility] chart from Aug 21, 2010 MICHELLE CHI CNP - 08/23/2010 9:41 SMT MACHINE OPERATOR Source: [employer] Document Id: [id number] SMT MACHINE OPERATOR!10 MACHINE OPERATOR Miscellaneous - Michelle Chi C.N.P. - 08/23/2010 9:04 AM CST Ambulatory Patient Summary [address] [address] Visit Information Name: ELISE GANDHI Current Date: 08/23/2010 09:04:21 Primary Care Provider: MICHELLE CHI [facility] Your Medications Here is a list [...] No Appointments found Your Goals/Additional instructions: Source: [facility] POWER[facility]ART Document Id: [id number] Miscellaneous - Michelle Chi, C.N.P. - 08/23/2010 9:04 AM CST Ambulatory Depart Summary [address] [address] Visit Information Name: ELISE GANDHI Current Date: 08/23/2010 09:04:20 Primary Care Provider: MICHELLE CHI [facility] ARNOL GARCIA ELISE GAVIRIA has been [...] to the patient and/or family, guardian/caregiver. Source: [facility] POWERCHART Document Id: [id number] Miscellaneous - Conversion, Historical Provider Ser - 08/23/2010 8:18 AM SMT MACHINE OPERATOR Ambulatory Vitals Height Weight Ambulatory Vitals Height Weight Entered On: 08/23/2010 8:20 SMT MACHINE OPERATOR Performed On: 08/23/2010 8:18 SMT MACHINE OPERATOR by KVNG PAULINO LPN Vitals/Ht/Wt Systolic Blood Pressure: 118mmHg Diastolic Blood Pressure: 78mmHg NIBP Mean: 91mmHg BP Location: Right upper extremity KVNG PAULINO LPN - 08/23/2010 8:18 SMT MACHINE OPERATOR Source: [facility] Document Id: [id number] SMT MACHINE OPERATOR!6 Miscellaneous - Conversion, Historical Provider Ser - 08/23/2010 8:14 AM SMT MACHINE OPERATOR Adult Mail Teller Intake/History Adult Mail Teller Intake/History Entered On: 08/23/2010 8:18 SMT MACHINE OPERATOR Performed On: 08/23/2010 8:14 SMT MACHINE OPERATOR by KVNG PAULINO LPN Intake Chief Complaint: [...] 32kg/m2 KVNG PAULINO LPN - 08/23/2010 8:14 SMT MACHINE OPERATOR Subjective Pain Symptoms: No KVNG PAULINO LPN - 08/23/2010 8:14 SMT MACHINE OPERATOR Dependent Habits Tobacco Use/Currently Using: No Tobacco Use/Last 12 months: No Alcohol Use: Yes KVNG PAULINO LPN - 08/23/2010 8:14 SMT MACHINE OPERATOR Caffeine Use Grid Caffeine Use: Current Type: Coffee, Soft drinks Frequency: Daily Amount: 1 cup & 2 cans Last Use: yesterday 4:30 pm KVNG PAULINO LPN - 08/23/2010 8:14 SMT MACHINE OPERATOR Recreational Drug Use Grid Drug Use: None KVNG PAULINO LPN - 08/23/2010 8:14 SMT MACHINE OPERATOR Allergies Allergies (Active) Cats Estimated Onset Date: Unspecified ; Reactions: unknown ; Created By: PHILLIP JARAMILLO MD; Reaction Status: Active ; Category: Other ; Substance: Cats ; Type: Allergy ; Updated By: PHILLIP JARAMILLO; Reviewed Date: 08/23/2010 8:13 SMT MACHINE OPERATOR Dust Mite Estimated Onset Date: Unspecified ; Created By: KVNG PAULINO LPN; Reaction Status: Active ; Category: Drug ; Substance: Dust Mite ; Type: Allergy ; Updated By: KVNG PAULINO LPN; Reviewed Date: 08/23/2010 8:13 SMT MACHINE OPERATOR prochlorperazine Estimated Onset Date: Unspecified ; Reactions: unknown ; Created By: BRAD JARAMILLO MD; Reaction Status: Active ; Category: Drug ; Substance: prochlorperazine ; Type: Allergy ; Updated By: PHILLIP JARAMILLO MD; Reviewed Date: 08/23/2010 8:13 SMT MACHINE OPERATOR Source: [facility] [employer] Document Id: [id number] SMT MACHINE OPERATOR!34 documented in this encounter Plan of Treatment Upcoming Encounters Date Type Specialty Care Team Description 08/22/2022 Clinical Communication Admitting/Central Scheduling 08/24/2022 Appointment Radiation Oncology Sue Barry M.D. [address] [place] [address] documented as of this encounter Visit Diagnoses Not on filedocumented in this encounter
--- OUTSIDE RECORDS SUMMARY | 2022-08-14 22:23 | XMS_ITS | Encounter Summary ---
:[address] [facility] Address [address] [place] [address] Care Team Providers Name Role Phone Unavailable Primary Care Provider Unavailable Encounter Details Date Type Department Care Team Description 09/03/2011 Hospital Encounter HX [facility] Naomi Parker, MISA, C.N.P., D. N.P. [address] [place], [place] [address] (Wo rk) Social History [...] APRN, C.NAvtar - 09/03/2011 12:00 AM CST [id number] CHIEF COMPLAINT/ REASON FOR VISIT Annual medication [...] history of asthma. She also sees an bobbin marker at [place]. Patient takes Flonase, albuterol, Claritin and Advair [...] SKINNER CNP On: 09/14/2011 11:46 AM Source: [facility] MHSDOLBEYNONRADSYS Document Id: [id number] ONAL ACCOUNT EXECUTIVE documented in this encounter Nursing Notes Conversion, Historical Provider Ser - 09/06/2011 10:36 AM CST Appointments at [facility] Document Contains Addenda Addendum by KVNG PAULINO LPN on 06 September 2011 10:48 NATIONAL ACCOUNT EXECUTIVE Bone Density : 10:am Mammogram: 11:15 am Modified by and Electronically Signed by: KVNG PAULINO LPN On: 09/06/2011 10:48 AM Appointments scheduled for [facility] : Mammogram screening & bone density screening 10/16/2011; along with Dermatology with Gonzalez Briceño, [facility] 5th floor, desk East 5 at 1:05 pm Electronically Signed By: KVNG PAULINO LPN On: 09/06/2011 10:39 AM Source: [facility] [employer] Document Id: [id number] documented in this encounter Miscellaneous Notes Miscellaneous - Jonathon Parker APRN, C.NAvtar - 09/04/2011 3:32 PM NATIONAL ACCOUNT EXECUTIVE Results Notification Document Contains Addenda Addendum by KVNG PAULION LPN on 05 September 2011 15:04:05 NATIONAL ACCOUNT EXECUTIVE Stopped in given results. Addendum by KVNG PAULINO LPN on 04 September 2011 17:55:42 NATIONAL ACCOUNT EXECUTIVE Attempted to reach - no answer, will try again tomorrow. From: JONATHON SKINNER WHOLESALE BUYER To: KVNG PAULINO LPN Sent: 09/04/2011 15:32:59 NATIONAL ACCOUNT EXECUTIVE ! Show up: 09/04/2011 21:32:59 [facility] Subject: Results Notification Actions: Notify patient of results Due Date/Time: 09/04/2011 16:32:00 NATIONAL ACCOUNT EXECUTIVE Source: [facility] [employer] Document Id: [id number] Electronically signed by Conversion, [facility] Divider Operator [id number] at 03/10/2017 12:23 PM CDT Jonathon Paz APRN, C.N.P. - 09/03/2011 11:23 AM NATIONAL ACCOUNT EXECUTIVE Results Notification Document Contains Addenda Addendum by KVNG PAULINO LPN on 04 September 2011 15:18:55 NATIONAL ACCOUNT EXECUTIVE Return call received - will pharmacy picking tech copy of results tomorrow - at front end loader operator. Addendum by KVNG PAULINO LPN on 03 September 2011 17:07:43 NATIONAL ACCOUNT EXECUTIVE Attempted to reach - no answer, left voice message & # if further questions. From: JONATHON SKINNER CNP To: KVNG PAULINO LPN Sent: 09/03/2011 11:23:16 NATIONAL ACCOUNT EXECUTIVE ! Show up: 09/03/2011 17:23:16 [facility] Subject: Results Notification Actions: Notify patient of results Due Date/Time: 09/03/2011 12:22:00 NATIONAL ACCOUNT EXECUTIVE Source: [facility] [employer] Document Id: [id number] Electronically signed by Conversion, [facility] Divider Operator [id number] at 03/10/2017 12:23 PM CDT Jonathon Paz APRN, C.N.P. - 09/03/2011 11:00 AM NATIONAL ACCOUNT EXECUTIVE Quality Measures Quality Measures Entered On: 09/10/2011 8:48 NATIONAL ACCOUNT EXECUTIVE Performed On: 09/03/2011 11:00 NATIONAL ACCOUNT EXECUTIVE by JONATHON SKINNER CNP Asthma Asthma Control Test (ACT) Score : 24 ED visits past yr for asthma w/o hospital stay : 0 Hospitalizations/Overnight Stays in Past yr for Asthma : 0 Asthma Action Plan Provided/Reviewed : Reviewed with the patient Asthma Action Plan Copy : Scanned into EMR JONATHON SKINNER CNP - 09/10/2011 8:47 NATIONAL ACCOUNT EXECUTIVE Source: [facility] POWERCHART Document Id: [id number] NATIONAL ACCOUNT EXECUTIVE!7 ONAL ACCOUNT EXECUTIVE Miscellaneous - Conversion, Historical Provider Ser - 09/03/2011 8:38 AM NATIONAL ACCOUNT EXECUTIVE Adult Anthropology Professor Intake/History Adult Anthropology Professor Intake/History Entered On: 09/03/2011 8:40 NATIONAL ACCOUNT EXECUTIVE Performed On: 09/03/2011 8:38 NATIONAL ACCOUNT EXECUTIVE by KVNG PAULINO LPN Intake Temperature Oral : 36.7C(Converted to: 98.1DegF) Peripheral Pulse Rate : 64/min Respiratory Rate : 16/min Systolic Blood Pressure : 126mmHg Diastolic Blood Pressure : 74mmHg NIBP Mean : 91mmHg BP Location : Right upper extremity Heart Rhythm : Regular KVNG PAULINO LPN - 09/03/2011 8:40 NATIONAL ACCOUNT EXECUTIVE Chief Complaint : Refill meds Actual Weight : 85.7kg(Converted to: 188lb 15oz) Weight Source : Standing scale Dosing Weight Clinic : 85.70kg KVNG PAULINO LPN - 09/03/2011 8:38 NATIONAL ACCOUNT EXECUTIVE Subjective Pain Symptoms : No KVNG PAULINO LPN - 09/03/2011 8:38 NATIONAL ACCOUNT EXECUTIVE Dependent Habits Tobacco Use/Currently Using : No Tobacco Use/Last 12 months : No Smoking Status : Never smoker Alcohol Use : Yes KVNG PAULINO LPN - 09/03/2011 8:38 NATIONAL ACCOUNT EXECUTIVE Caffeine Use Grid Caffeine Use : Current Type : Coffee, Soft drinks Frequency : Daily Amount : 1 cup & 2 cans Last Use : yesterday after noon KVNG PAULINO LPN - 09/03/2011 8:38 NATIONAL ACCOUNT EXECUTIVE Recreational Drug Use Grid Drug Use : None KVNG PAULINO LPN - 09/03/2011 8:38 NATIONAL ACCOUNT EXECUTIVE Allergy Allergies (Active) Cats Estimated Onset Date: [...] MD; Reviewed Date: 04/13/2011 9:12 CDT Source: [facility] [employer] Document Id: [id number] NATIONAL ACCOUNT EXECUTIVE!10 documented in this encounter Plan of Treatment Upcoming Encounters Date Type Specialty Care Team Description 08/22/2022 Clinical Communication Admitting/Central Scheduling 08/24/2022 Appointment Radiation Oncology Sue Barry M.D. [address] [place] [phone] documented as of this encounter Visit Diagnoses Not on filedocumented in this encounter
--- OUTSIDE RECORDS SUMMARY | 2022-08-14 22:23 | XMS_ITS | Encounter Summary ---
:1940 Author Organization [facility] Address [address] [place] [address] Care Team Providers Name Role Phone Unavailable Primary Care Provider Unavailable Encounter Details Date Type Department Care Team Description 11/05/2011 Hospital Encounter HX [facility] Naomi Parker, MISA, C.N.P., D. N.P. [address] [place], [place] [address] (Wo rk) Social History [...] Comments Blood Pressure 120/80 11/05/2011 11:14 AM VETERINARY NURSE Pulse 68 11/05/2011 11:14 AM VETERINARY NURSE Temperature - - Respiratory Rate 20 11/05/2011 11:14 AM VETERINARY NURSE Oxygen Saturation - - Inhaled Oxygen Concentration - - Weight 86.5 kg (190 lb 11.2 oz) 11/05/2011 11:14 AM VETERINARY NURSE Height - - Body Mass Index - [...] APRN, C.N.P. - 11/05/2011 12:00 AM CST [id number] CHIEF COMPLAINT/ REASON FOR VISIT Cold. HISTORY [...] SKINNER CNP On: 11/06/2011 10:57 AM Source: [facility] MHSDOLBEYNONRADSYS Document Id: [id number] RINARY NURSE documented in this encounter Nursing Notes Conversion, Historical Provider Ser - 06/04/2012 4:47 PM CDT Change pharmacy Pt called wanting to change pharmacy to [facility] fax# [phone]. Pravastatin, Lisinopril, Atenolol, Chlorothalidone, Synthroid. [facility]# [id number] along with on coverletter. Will fax rx's to [facility]. Electronically Signed By: KARELY CHOW On: 06/04/2012 04:49 PM Source: [facility] POWERCHART Document Id: [id number] Conversion, Historical Provider Ser - 11/09/2011 3:22 PM CST Prior Authorization Called [facility] for a Prior authorization for Nitrofurantioin Reference # [id number] , I did this over the phone today, will know the outcome in a few day. I called . Electronically Signed By: PRAKASH ACEVEDO On: 11/09/2011 03:27 PM Source: [facility] P[facility] Document Id: [id number] documented in this encounter Miscellaneous Notes Telephone Encounter - Duc Ling L.P.N. - 11/14/2011 9:21 AM VETERINARY NURSE Phone Message From: DUC RUCKER Sent: 11/14/2011 09:21:25 VETERINARY NURSE Subject: Phone Message Caller is: ( ) Patient ( ) Mother ( ) Father ( ) Spouse ( ) Daughter ( ) Son ( ) Pharmacy ( X ) Other: Physician: Jonathon Skinner CNP Patient Reason for Call: Message: Appeal for prescribed medication that is not sensitive to bacteria vs what [employer] companysuggests. Advice/Action: Called [employer] at [facility]. on Nov 12, 2011 10:20am and left a message regarding the patient's sensitivities to ciprofloaxin, cephalexin sulfamethoxzole etc. And Microbid that was prescibed was not sensitive to the bacteria and can be used. Attemped to call again Professional [employer] Tournament Player at [facility]. on Nov 14, 2011 9:05am. Left a [...] phone number ( ) Source: [facility] P[facility] Document Id: [id number] Miscellaneous - Jonathon Parker APRN, C.N.P. - 11/05/2011 11:45 AM VETERINARY NURSE Ambulatory Patient Summary [address] [address] Visit Information Name: AINSLEY GANDHI Current Date: 11/05/2011 11:45:05 Primary Care Provider: JONATHON SKINNER [facility] Your Medications Here is a list of [...] No Appointments found Your Goals/Additional instructions: Source: [facility] POWERCH[facility] Document Id: [id number] RINARY NURSE Miscellaneous - Jonathon Parker APRN, C.N.P. - 11/05/2011 11:45 AM VETERINARY NURSE Ambulatory Depart Summary [address] [address] Visit Information Name: AINSLEY GANDHI Current Date: 11/05/2011 11:45:02 Attending Provider: JONATHON SKINNER CNP Primary Care Provider: JONATHON SKINNER RETAIL SUPPORT ASSOCIATE AINSLEY GANDHI has been given the following [...] 200 mg oral tablet) Additional Information: Source: [facility] POWER[facility]ART Document Id: [id number] RINARY NURSE Miscellaneous - Duc Ling LAntwanPAntwanN. - 11/05/2011 11:14 AM CST Adult Director News Intake/History Adult Director News Intake/History Entered On: 11/05/2011 11:19 VETERINARY NURSE Performed On: 11/05/2011 11:14 VETERINARY NURSE by DUC RUCKER Intake Chief Complaint : [...] : 86.50kg DUC RUCKER - 11/05/2011 11:14 VETERINARY NURSE Subjective Pain Symptoms : No DUC RUCKER - 11/05/2011 11:14 VETERINARY NURSE Dependent Habits Tobacco Use/Currently Using : No Exposure to Tobacco Smoke : Other: Never Smoked Smoking Status : Never smoker DUC RUCKER - 11/05/2011 11:14 VETERINARY NURSE Caffeine Use Grid Caffeine Use : Current Type : Coffee, Soft drinks Frequency : Daily Amount : 1 cup & 2 cans Last Use : yesterday after noon DUC RUCKER - 11/05/2011 11:14 VETERINARY NURSE Recreational Drug Use Grid Drug Use : None ALKA DUC [place] - 11/05/2011 11:14 VETERINARY NURSE Allergy Allergies (Active) Cats Estimated Onset Date: Unspecified ; Reactions: unknown ; Created By: PHILLIP JARAMILLO MD; Reaction Status: Active ; Category: Other ; Substance: Cats ; Type: Allergy ; Updated By: PHILLIP JARAMILLO; Reviewed Date: 11/05/2011 11:09 VETERINARY NURSE Dust Mite Estimated Onset Date: Unspecified ; Created By: KVNG PAULINO LPN; Reaction Status: Active ; Category: Drug ; Substance: Dust Mite ; Type: Allergy ; Updated By: KVNG PAULINO LPN; Reviewed Date: 11/05/2011 11:09 VETERINARY NURSE prochlorperazine Estimated Onset Date: Unspecified ; Reactions: unknown ; Created By: BRAD JARAMILLO MD; Reaction Status: Active ; Category: Drug ; Substance: prochlorperazine ; Type: Allergy ; Updated By: PHILLIP JARAMILLO MD; Reviewed Date: 11/05/2011 11:09 VETERINARY NURSE Source: [facility] Document Id: [id number] VETERINARY NURSE!31 RINARY NURSE documented in this encounter Plan of Treatment Upcoming Encounters Date Type Specialty Care Team Description 08/22/2022 Clinical Communication Admitting/Central Scheduling 08/24/2022 Appointment Radiation Oncology Sue Barry M.D. [address] [place] [phone] documented as of this encounter Visit Diagnoses Not on filedocumented in this encounter
--- OUTSIDE RECORDS SUMMARY | 2022-08-14 22:23 | XMS_ITS | Encounter Summary ---
:1940 Author Organization [facility] Address [address] [place] [address] Care Team Providers Name Role Phone Unavailable [...] Oncology Sue Barry M.D. [address] [place] [address] documented as of this encounter Procedures Procedure [...] 06/18/2003 1:56 PM CDT 18-Jun-2003 13:26:00 ??Exam: [id number] Indications: screening ORIGINAL REPORT - 18-Jun-2003 13:56:00 Diverticulosis. ??Patulous ileocecal nicolas ve. ??Otherwise normal colon and terminal ileum. Electronically signed by: ?? Mely Lyon MD, -[id number] 18-Jun-2003 13:56 ?Nisha Gudino ?? [id number] 18-Jun-2003 13:56 Procedure Note Tommy Gudino M.D. - 01/14/2018Formattin g of this note might be different from the original. 18-Jun-2003 13:26:00 Exam: [id number] nostic Indications: screening ORIGINAL REPORT - 18-Jun-2003 13:56:00 Diverticulosis. Patulous ileocecal valve . Otherwise normal colon and terminal ileum. Electronically signed by: Mely Lyon MD, -[id number] 18-Jun-2003 13:56 Nisha Gudino MD -[id number] 18-Jun-2003 13:56 Anusha Pacheco APRN, C.N.P., D.N.P. IMG FLUOROSCOPY PRO CEDURES documented in this encounter Visit Diagnoses Not on filedocumented in this encounter
--- OUTSIDE RECORDS SUMMARY | 2022-08-14 22:23 | XMS_ITS | Encounter Summary ---
:1940 Author Organization [facility] Address [address] [place] [address] Care Team Providers Name Role Phone Unavailable Primary Care Provider Unavailable Encounter Details Date Type Department Care Team Description 03/19/2011 Hospital Encounter HX [facility] FAMILYPRA Tino Horn P.A.-C. [address] [place] [address] (Wo rk) Social History Tobacco [...] Horn P.A.-C. - 03/19/2011 12:00 AM CDT [id number] CHIEF COMPLAINT/REASON FOR VISIT Travel immunizations. 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 She in general has been in good health. She is a . Her in [place] and she has decided that she wants to travel to [facility] because she has not been there. [...] At that time same time she could lease picker her malaria prophylaxis which could be mefloquine [...] she will let us know. TLR/kln Signed Apoolnia Cordova. T[facility] Electronically Signed By: APOLONIA HORN PA-C On: 03/21/2011 08:39 AM Source: [facility] MHSDOLBEYNONRADSYS Document Id: [id number] documented in this encounter Miscellaneous Notes Miscellaneous - Apolonia Horn P.A.-C. - 03/19/2011 5:16 PM CDT Ambulatory Patient Summary [address] [address] Visit Information Name: AINSLEY GANDHI Current Date: [...] No Appointments found Your Goals/Additional instructions: Source: [facility] POWERCHART Document Id: [id number] Electronically signed by Nikos, [facility] Frame Repairer [id number] at 03/10/2017 9:00 PM CDT Miscellaneous - Apolonia Horn P.A.-C. - 03/19/2011 5:16 PM CDT Ambulatory Depart Summary [address] [address] Visit Information Name: AINSLEY GANDHI Current Date: 03/19/2011 17:16:37 Primary Care Provider: [facility] AINSLEY GANDHI has been given the [...] to the patient and/or family, guardian/caregiver. Source: [facility] 911 View Document Id: [id number] Electronically signed by Conversion, [facility] Frame Repairer [id number] at 03/10/2017 9:00 PM CDT Miscellaneous - Conversion, Historical Provider [...] PAULINO LPN - 03/19/2011 13:46 CDT [facility] Document Id: [id number] CDT!8 Miscellaneous - Conversion, Historical Provider Ser - 03/19/2011 1:41 PM CDT Advance Directive Advance Directive Entered On: 03/19/2011 13:41 CDT Performed On: 03/19/2011 13:41 CDT by KVNG PAULINO LPN Advance Directive Advanced Directives: No KVNG PAULINO LPN - 03/19/2011 13:41 CDT [facility] Document Id: [id number] CDT!3 Miscellaneous - Conversion, Historical Provider Ser - 03/19/2011 1:41 PM CDT Adult Winchman/Crane Operator Intake/History Adult Winchman/Crane Operator Intake/History Entered On: 03/19/2011 13:46 CDT Performed On: 03/19/2011 13:41 CDT by KVNG PAULINO LPN Intake Chief Complaint: Need shots for trip to [facility] - Sep.10. + check spot on [...] Unspecified ; Reactions: unknown ; Created By: PIHLLIP JARAMILLO MD; Reaction Status: Active ; Category: [...] MD; Reviewed Date: 03/19/2011 13:40 CDT Source: [facility] 911 View Document Id: [id number]!31 documented in this encounter Plan of Treatment Upcoming Encounters Date Type Specialty Care Team Description 08/22/2022 Clinical Communication Admitting/Central Scheduling 08/24/2022 Appointment Radiation Oncology Sue Barry M.D. [address] [place] [phone] documented as of this encounter Visit Diagnoses Not on filedocumented in this encounter
--- OUTSIDE RECORDS SUMMARY | 2022-08-14 22:23 | XMS_ITS | Encounter Summary ---
:1940 Author Organization [facility] Address [address] [place] [address] Care Team Providers Name Role Phone Unavailable Primary Care Provider Unavailable Encounter Details Date Type Department Care Team Description 08/06/2012 Hospital Encounter HX [facility] FAMILYPRA Naomi Parker, MISA, C.N.P., D. N.P. [address] [place], [place] [address] (Wo rk) Social History [...] MD; Reviewed Date: 08/01/2012 10:35 CDT Source: [facility] XOJET Document Id: [id number] Radha Ling L.PAntwanNAntwan - 08/06/2012 8:47 AM [...] MD; Reviewed Date: 08/01/2012 10:35 CDT Source: [facility] Document Id: [id number] documented in this encounter Miscellaneous Notes Miscellaneous [...] RADHA RUCKER - 08/06/2012 8:51 CDT Source: [facility] Document Id: [id number] documented in this encounter Plan of Treatment Upcoming Encounters Date Type Specialty Care Team Description 08/22/2022 Clinical Communication Admitting/Central Scheduling 08/24/2022 Appointment Radiation Oncology Sue Barry M.D. [address] [place] [address] documented as of this encounter Visit Diagnoses Not on filedocumented in this encounter
--- OUTSIDE RECORDS SUMMARY | 2022-08-14 22:23 | XMS_ITS | Encounter Summary ---
:1940 Author Organization [facility] Address [address] [place] [address] Care Team Providers Name Role Phone Unavailable Primary Care Provider Unavailable Encounter Details Date Type Department Care Team Description 04/04/2011 Hospital Encounter HX [facility] FBK[facility] FAMILYPRA Tino Horn P.A.-C. [address] [place] [address] (Wo rk) Social History Tobacco [...] Horn P.A.-C. - 04/04/2011 12:00 AM CDT [id number] CHIEF COMPLAINT/REASON FOR VISIT Lesion on her [...] HORN PA-C On: 04/11/2011 09:58 AM Source: [facility] MHSDOLBEYNONRADSYS Document Id: [id number] documented in this encounter Miscellaneous Notes Miscellaneous - Apolonia Horn P.A.-C. - 04/04/2011 1:40 PM CDT Ambulatory Patient Summary [address] [address] Visit Information Name: AINSLEY GANDHI Current Date: [...] Ankur Visiting Provider Your Goals/Additional instructions: Source: [facility] POWERCHART Document Id: [id number] Miscellaneous - Apolonia Horn P.A.-C. - 04/04/2011 1:40 PM CDT Ambulatory Depart Summary [address] [address] Visit Information Name: ARNOL GARCIAAINSLEYJOSI Current Date: [...] to the patient and/or family, guardian/caregiver. Source: [facility] POWERCHART Document Id: [id number] Miscellaneous - Conversion, Historical Provider Ser - 04/04/2011 10:07 AM CDT Adult Open Hearth Worker Intake/History Adult Open Hearth Worker Intake/History Entered On: 04/04/2011 10:11 CDT Performed [...] Source: Standing scale Dosing Weight Clinic: 85.20kg VIRGINIE PAULINOElida Norris LPN - 04/04/2011 10:07 CDT Subjective Pain Symptoms: No Respiratory Symptoms: Difficulty breathing with activity LORAVIRGINIEElida Norris LPN - 04/04/2011 10:07 CDT Dependent Habits Tobacco Use/Currently Using: No Tobacco Use/Last 12 months: No Alcohol Use: Yes LORAJORDANA CarrollLENARDElida Norris LPN - 04/04/2011 10:07 CDT Caffeine Use Grid Caffeine Use: Current Type: Coffee, Soft drinks Frequency: Daily Amount: 1 cup & 2 cans Last Use: 4 pm yesterday afternoon KVNG PAULINO LPN - 04/04/2011 10:07 CDT Recreational Drug Use Grid Drug Use: None LORAVIRGINIEElida Norris LPN - 04/04/2011 10:07 CDT Allergy [...] MD; Reviewed Date: 04/04/2011 10:07 CDT Source: [facility] POWERCHART Document Id: [id number] CDT!31 documented in this encounter Plan of Treatment Upcoming Encounters Date Type Specialty Care Team Description 08/22/2022 Clinical Communication Admitting/Central Scheduling 08/24/2022 Appointment Radiation Oncology Sue Barry M.D. [address] [place] [phone] (work) documented as of this encounter Procedures Procedure [...] Time Signature HXLvl IV Surg Performed POWERCHART [facility] Comment: Test Performed by: [facility] Dpt of Lab Med and Pathology [address] [place] [address] Workgroup Leader: Michael marquis III, M.D. Specimen Anatomical Collection Method Collection Time Receive d Time (Source) Location / / Volume Laterality Tissue 04/04/2011 11:00 04/05/2011 6:49 AM CDT AM CDT Historical Provider LAB SURG PATH ORDERABLES Performing Organization Address City/State/ZIP Code Phon e Number POWERCHART Dermatopathology Consult (04/04/2011 11:00 AM CDT) [facility] Method Time Signature HXDrm Exam [id number] POWERCHART [facility] HXDrm Exam See Comment POWERCHART [facility] Comment: RESULT: Apolonia Horn M.D. HXDrm Exam Addr-[place] See Comment POWERCH ART Comment: [facility]-[address] [id number] HXDrm Exam Site-[place] See Comment POWERCH ART Comment: A. ??Received in formalin labeled with t he patient's name and medical record number as [id number] labeled rig ht leg is a 2.5 x 0.6 cm pale mccarthy unoriented skin ellipse excised to a depth of 0.3 cm. There is a 1.0 x 0.1 cm ill-defined lesi on centrally located on the skin surface. ??The specimen is inked, s erially sectioned and submitted as follows A1 tips; A2 remaini ng specimen. HXDrm Exam [facility] See Comment POWERCH ART Comment: RESULT: A. Right Leg, Skin: Irr itated seborrheic keratosis HXDrm Exam [facility] See Comment POWERCH ART Comment: RESULT: 04/10/2011 12:27 ??Interpreted by: Francesco Spangler Report electronically signed by Inocencia Pendleton DO Transcribed by: [email or web address] 04/10/2011 12:10:17 Test Performed by: [facility] Dpt of Lab Med and Pathology [address] [place] [address] Workgroup Leader: Michael marquis III, M.D. Specimen (Source) Anatomical Collection Method Collection Time Re ceived Time Location / / Volume Laterality Tissue 04/04/2011 11:00 AM CDT Apolonia Horn P.A.-C. LAB PATH DERM ORDERABLES Performing Organization Address City/State/ZIP Code Phon e Number POWERCHART documented in this encounter Visit Diagnoses Not on filedocumented in this encounter
--- OUTSIDE RECORDS SUMMARY | 2022-08-14 22:23 | XMS_ITS | Encounter Summary ---
:1940 Author Organization [facility] Address [address] [place] [address] Care Team Providers Name Role Phone Unavailable Primary Care Provider Unavailable Encounter Details Date Type Department Care Team Description 10/17/2011 Hospital Encounter HX [facility] FBKF Srinivas Andrade M.D. [address] [place] [phone] (Wo rk) Social History Tobacco [...] Parker, MISA, C.N.P. - 10/17/2011 11:26 AM STAVE PLANER TENDER Results Notification Document Contains Addenda Addendum by KVNG PAULINO LPN on 17 October 2011 16:44:20 STAVE PLANER TENDER Spoke with patient earlier & given below results & information prescription sent to [facility] From: ELIZABETH POTTER ELEVATOR OPERATOR To: KVNG PAULINO LPN Sent: 10/17/2011 11:26:03 STAVE PLANER TENDER ! Show up: 10/17/2011 17:26:03 [facility] Subject: Results Notification Actions: Notify patient of results Source: [facility] POWERCHART Document Id: [id number] Electronically signed by Nikos, [facility] [employer] [id number] at 03/09/2017 1:23 PM CDT documented in this encounter Plan of Treatment Upcoming Encounters Date Type Specialty Care Team Description 08/22/2022 Clinical Communication Admitting/Central Scheduling 08/24/2022 Appointment Radiation Oncology Sue Barry M.D. [address] [place] [address] documented as of this encounter Procedures Procedure Name Priority Date/Time Associated Diagnosis Comme nts DIPSTICK, U Routine 10/17/2011 9:09 AM Results f or this STAVE PLANER TENDER procedure are i n the results section. BACTERIAL CULTURE, Routine 10/17/2011 9:09 AM Res ults for this AEROBIC, URINE STAVE PLANER TENDER procedure are in the results section. documented in this encounter Results (ABNORMAL) Dipstick, Urine (10/17/2011 9:09 AM STAVE PLANER TENDER) [facility] Method Time Signature Source Clean Void POWERCHART Urine HXUr Color Yellow POWERCHART Appearance Cloudy (A) POWERCHART Glucose Negative Negative POWERCHART HXBILIRUBIN Negative Negative POWERCHART Ketones, QL(U) Negative Negative POWERCHART Specific 1.020 1.020 POWERCHART [place], POCT, U HXBLOOD Small (A) Negative POWERCHART pH, POCT, Urine 6.0 5.0 - 8.0 POWERCHART Protein, Ur, Dip Negative Negative POWERCHART Urobilinogen 0.2 0.2 - 1.0 POWERCHART HXNITRITE Positive (A) Negative POWERCHART Leukocyte Large (A) Negative POWERCHART Esterase Specimen (Source) Anatomical Collection Method Collection Time Re ceived Time Location / / Volume Laterality Urine 10/17/2011 9:09 AM STAVE PLANER TENDER Elizabeth Parker APRN, C.N.P., D.N.P. LAB URINE ORDERA BLES Performing Organization Address City/State/ZIP Code Phon e Number POWERCHART Bacterial Culture, Aerobic, Urine (10/17/2011 9:09 AM STAVE PLANER TENDER) [facility] Method Time Signature Bacterial POWERCHART Culture, Aerobic, Urine HXFinal See POWERCHART scanned/paper report. Test performed at [facility]. Specimen (Source) Anatomical Collection Method Collection Time Re ceived Time Location / / Volume Laterality Urine, Clean 10/17/2011 9:09 AM Catch STAVE PLANER TENDER Elizabeth Parker APRN, C.N.P., D.N.P. LAB MICROBIOLOGY - GENERAL ORDERABLES Performing Organization Address City/State/ZIP Code Phon e Number POWERCHART documented in this encounter Visit Diagnoses Not on filedocumented in this encounter
--- NOTE | 2022-08-21 13:10 | W.PM.SLEEP ---
Sleep Study Details Details Interpreting Provider: Cedric Lozano MD Date of Sleep Study: 08/14/22 Sleep Study Details: STUDY TYPE:? Home ? BMI:? 38.8 ORDERING PROVIDER:Bob Garcia INDICATION:? Concerns about sleep apnea ? SLEEP SUMMARY:? 430.4 minutes monitored RESPIRATORY SUMMARY:? AHI 7.8, supine 2.1, prone 8.1, left lateral 7.4, right lateral 5.1 Low oxygen 82 3.6% of study oxygen less than 90% Snoring none recorded PERIODIC LIMB MOVEMENTS OF SLEEP:? Not recorded CARDIAC:? 68-89, mean 77.4 IMPRESSION:? This study demonstrates mild obstructive sleep apnea RECOMMENDATION: Treatment options would include CPAP dental appliance weight loss and/or airway expansion surgery. CPAP would be favored
== END 2022-08-14 22:15 | disposition home or self-care (01) ==
LOC: SLEEP 22:15
PROVIDERS: PCP Nurse Practitioner Family; Visit Provider Nurse Practitioner Family
DX: G47.33 Obstructive sleep apnea (adult) (pediatric) (principal)
CPT/HCPCS: 95806

== ENCOUNTER 2022-08-22 14:30 | Outpatient (CLI) | payer MEDICARE, BC, SELFPAY ==
--- NOTE | 2022-08-22 14:30 | CRLHL7_ITS ---
For Patients: As a result of the Century Cures Act, medical imaging exams and procedure reports are released immediately into your electronic medical record. You may view this report before your referring provider. If you have questions, please contact your health care provider. DXA BONE MINERAL DENSITY STUDY Reason for exam: History of breast cancer. Long-term use of aromatase inhibitor. Current height (in): 63. Weight (lb): 215. Menopause age: 52. Ethnicity: White. 1. Have you had a previous hip or vertebral fracture? No. 2. Have you had any fractures during your adult life which did not result from significant trauma (e.g., auto accident)? No. 3. Did either of your parents have a hip fracture? No. 4. Do you smoke? No. 5. Have you ever taken Glucocorticoids? No. 6. Do you have rheumatoid arthritis? No. 7. Do you have secondary osteoporosis? No. 8. Do you drink 3 or more alcoholic drinks per day? No. 9. Are you being treated for osteoporosis? No. 10. Have you ever taken any of the following medications: Actonel, Evista, Fosamax, Miacalcin, Reclast, Boniva, Forteo, HRT (i.e., estrogen/hormone therapy), Protelos, Prolia, Vitamin D, Calcium, other ??? please specify. ANSWER: Yes, vitamin D. 11. Do you have any of the following medical conditions: Anorexia or bulimia, asthma or emphysema, end stage renal disease, hyperparathyroidism, any seizure disorders, cancer, inflammatory bowel diseases, hysterectomy, other ??? please specify. ANSWER: Yes, asthma or emphysema, cancer, and hysterectomy. 12. What was your maximum height (inches)? 66. 13. Do you perform weight bearing exercise regularly? Yes. 14. Do you regularly consume dairy products? No. 15. Do you drink caffeinated beverages? No. If female: 16. At what age did your period start? 16. 17. Are you premenopausal? No. 18. How many full-term pregnancies have you had? 1. 19. Have you ever missed your period for more than 6 months in a row (not including or menopause)? No. TECHNIQUE: Bone mineral density study was performed using the [facility]. FINDINGS: The results of the study expressed as bone mineral density (BMD) are as follows: Lumbar spine L1 to L4: BMD: 0.861 g/cm2. T-score: -1.7. Z-score: 1.0 Neck Left: BMD: 0.710 g/cm2. T-score: -1.3. Z-score: 1.0 Right: BMD: 0.750 g/cm2. T-score: -0.9. Z-score: 1.4 Total Left: BMD: 0.948 g/cm2. T-score: 0.1. Z-score: 2.1 Right: BMD: 0.952 g/cm2. T-score: 0.1. Z-score: 2.1 IMPRESSION: Osteopenia. FRAX 10-year Fracture Risk Major Osteoporotic Fracture: 11% Hip Fracture: 2.2% Reported Risk Factors: [place] () Neck BMD=0.710, BMI= 38.1 AMBERLY HERNANDEZ M.D. Diagnostic/Nuclear Medicine Radiologist [email or web address] JMN:[email or web address]/Dictated by: Amberly Hernandez MD @ 08/23/2022 9:55:00 AM (Electronically Signed)
--- OUTSIDE RECORDS SUMMARY | 2022-08-22 14:44 | XMS_ITS | Encounter Summary ---
:1940 Author Organization [facility] Address [address] [place] [address] Care Team Providers Name Role Phone Elsewhere, Pcp Primary Care Provider Unavailable Reason for Visit Reason Comments Prednisone refill - flare Encounter Details Date Type Department Care Team Description 08/03/2022 Clinical Communication Division of Vasiliy Ma refill - Allergic Diseases Valdemar Olivo M.D. flare in [place], [address] [place] [address] [place] [phone] [place], [place] [phone] (Work) [phone] Social History Tobacco Use Types Packs/Day Years [...] have completed or the highest Roland, MEd, SUPERVISOR SCRAP PREPARATION, MARIE) degree you have received? Sex Assigned [...] Encounters Date Type Specialty Care Team Description 08/24/2022 Appointment Radiation Oncology Rickey Barry M.D. [address] [place], [place] [phone] (Wo rk) documented as of this encounter Visit Diagnoses Not on filedocumented in this encounter Care Teams Tank Car Cleaner Relationship Specialty Start Date End Date Elsewhere, Pcp PCP - General Internal Medicine 03/16/22 documented as of this encounter
--- OUTSIDE RECORDS SUMMARY | 2022-08-22 14:44 | XMS_ITS | Encounter Summary ---
:1940 Author Organization [facility] Address [address] [place] [address] Care Team Providers Name Role Phone Elsewhere, Pcp Primary Care Provider Unavailable Reason for Referral Outpatient (Routine) - Authorized Specialty Diagnoses / Procedures Referred By Contact Refer red To Contact Allergy and Immunology Valdemar Ma [place] M.D. [address] [place] [address] Referral ID Status Reason Start Date Expiration Date Visits V isits Requested Authorized [id number] Authorized 03/20/2022 03/20/2023 1 1 Outpatient (Routine) - Authorized Specialty Diagnoses / Procedures Referred By Contact Refer red To Contact Diagnoses Asthma Intrinsic (HCC) Valdemar Ma M.D. [facility] Procedures Spirometry [address] [place], [place] [phone] Referral ID Status Reason Start Date Expiration Date Visits V isits Requested Authorized [id number] Authorized 03/20/2022 03/20/2023 1 1 Reason for Visit Outpatient (Routine) - Closed Specialty Diagnoses / Procedures Referred By Contact Refer red To Contact Allergy and Immunology Valdemar Ma [place] M.D. [address] [place] [address] Referral ID Status Reason Start Date Expiration Date Visits Requ ested Visits Authorized [id number] Closed 03/07/2021 03/07/2022 1 1 Encounter Details Date Type Department Care Team Description 03/20/2022 Office Visit Division of Allergic Valdemar Ma hma Intrinsic (HCC) Diseases in Geovani Ryder M.D. (Primary Dx) [place] [address] [place] [phone] Social History Tobacco Use Types Packs/Day Years [...] have completed or the highest Roland, Katie, ASSISTANT ACCOUNT MANAGER, MARIE) degree you have received? [...] female who spends March through August in [place] and the remaining months in [place] who was last seen in the division [...] is having more allergy-type symptoms, particularly in [place] and also here where she will notice [...] getting further evaluated locally and reports that krisithas had a chest x-ray, EKG, and echo [...] Valdemar Ma M.D. CT CT Job ID: [id number] documented in this encounter Plan of Treatment Upcoming Encounters Date Type Specialty Care Team Description 08/24/2022 Appointment Radiation Oncology Rickey Barry M.D. [address] [place] [phone] (Wo rk) Scheduled Orders Name Type Priority Associated Diagnoses [...] Primary documented in this encounter Care Teams Employment Programs Analyst Relationship Specialty Start Date End Date Elsewhere, Pcp PCP - General Internal Medicine 03/16/22 documented as of this encounter
--- OUTSIDE RECORDS SUMMARY | 2022-08-22 14:44 | XMS_ITS | Encounter Summary ---
:1940 Author Organization [facility] Address [address] [place] [address] Care Team Providers Name Role Phone Igor Horn P.A.-C. Primary Care Provider [phone] Encounter Details Date Type Department Care Team Description 02/19/2022 Clinical Communication Department of Igor Byrd, Medicine, Bertha Langley [facility], in [address] [address] [place], [place] [phone] (Work) [phone] Social History Tobacco Use Types Packs/Day Years [...] have completed or the highest Roland, MEd, COLOR PASTE MIXER, MARIE) degree you have received? Sex [...] Call back Name of Medication (if relevant): [facility] Please send all scheduling replies to scheduling pool. documented in this encounter Plan of Treatment Upcoming Encounters Date Type Specialty Care Team Description 08/24/2022 Appointment Radiation Oncology Rickey Barry M.D. [address] [place], [place] [phone] (Wo rk) documented as of this encounter Visit Diagnoses Not on filedocumented in this encounter Care Teams Embroidery Designer Relationship Specialty Start Date End Date Igor Horn P.A.-C. PCP - General 06/14/18 03/15/[address] [place] [phone] documented as of this encounter
--- OUTSIDE RECORDS SUMMARY | 2022-08-22 14:44 | XMS_ITS | Encounter Summary ---
:1940 Author Organization [facility] Address [address] [place] [address] Care Team Providers Name Role Phone Igor Horn P.A.-C. Primary Care Provider [phone] Reason for Visit Reason Comments Med Refill Encounter Details Date Type Department Care Team Description 02/17/2022 Refill Department of Family Medicine, Igor Ross P.A.-C. Med Refill [facility], in [address] [place] [phone] [place] [address] [place] [address] [phone] Social History Tobacco Use Types Packs/Day Years [...] have completed or the highest Roland, MEd, AIR CARRIER OPERATIONS INSPECTOR, MARIE) degree you have received? Sex Assigned at Date Recorded Female 06/26/2021 8:35 AM CDT documented as of this encounter Miscellaneous Notes Telephone Encounter - Jacob Parish - 02/19/2022 7:18 AM CDT Added to another encounter documented in this encounter Plan of Treatment Upcoming Encounters Date Type Specialty Care Team Description 08/24/2022 Appointment Radiation Oncology Rickey Barry M.D. [address] [place], [place] [phone] (Wo rk) documented as of this encounter Visit Diagnoses Not on filedocumented in this encounter Care Teams Streetcar Repairer Helper Relationship Specialty Start Date End Date Igor oHrn P.A.-C. PCP - General 06/14/18 03/15/22 [address] [place] [phone] documented as of this encounter
--- OUTSIDE RECORDS SUMMARY | 2022-08-22 14:44 | XMS_ITS | Encounter Summary ---
:1940 Author Organization [facility] Address [address] [place] [address] Care Team Providers Name Role Phone Igor Horn P.A.-C. Primary Care Provider [phone] Encounter Details Date Type Department Care Team Description 10/23/2021 Admin Visit Department of Family Medicine, [address] [phone] [facility] [phone] Social History Tobacco Use Types Packs/Day Years [...] have completed or the highest Roland, MEd, MALT LIQUORS SALES REPRESENTATIVE, MARIE) degree you have received? Sex Assigned at Date Recorded Female 06/26/2021 8:35 AM CDT documented as of this encounter Plan of Treatment Upcoming Encounters Date Type Specialty Care Team Description 08/24/2022 Appointment Radiation Oncology Rickey Barry M.D. [address] [place], [place] [phone] (Wo rk) documented as of this encounter Visit Diagnoses Not on filedocumented in this encounter Additional Health Concerns Infection Onset Date Last Indicated Resolved Time COVID19 Pending 10/23/2021 10/23/2021 10/24/2021 12:22 PM SHELF DRIER OPERATOR documented as of this encounter Care Teams Agricultural Services Director Relationship Specialty Start Date End Date Igor Horn P.A.-C. PCP - General 06/14/18 03/15/22 [address] [place] [phone] documented as of this encounter
--- OUTSIDE RECORDS SUMMARY | 2022-08-22 14:44 | XMS_ITS | Encounter Summary ---
:1940 Author Organization [facility] Address [address] [place] [address] Care Team Providers Name Role Phone Igor Horn P.A.-C. Primary Care Provider [phone] Reason for Visit Reason Comments Med Refill Encounter Details Date Type Department Care Team Description 02/18/2022 Refill Department of Family Medicine, Igor Ross P.A.-C. Med Refill [facility], in [address] [place] [phone] [place] [address] [place] [address] [phone] Social History Tobacco Use Types Packs/Day Years [...] have completed or the highest Roland, MEd, CABLE TELEVISION PROGRAM DIRECTOR, MARIE) degree you have received? Sex [...] Radiation Oncology Rickey Barry M.D. [address] [place], [place] [phone] (Wo rk) documented as of this encounter Visit Diagnoses Not on filedocumented in this encounter Care Teams Baker Operator Automatic Relationship Specialty Start Date End Date Igor Horn P.A.-C. PCP - General 06/14/18 03/15/22 [address] [place] [address] documented as of this encounter
--- OUTSIDE RECORDS SUMMARY | 2022-08-22 14:44 | XMS_ITS | Encounter Summary ---
:[address] [facility] Address [address] [place] [address] Care Team Providers Name Role Phone Elsewhere, Pcp Primary Care Provider Unavailable Reason for Visit Reason Comments Med Refill Encounter Details Date Type Department Care Team Description 02/19/2022 Refill Department of Family Medicine, Igor Ross P.A.-C. Med Refill [facility], in [address] [place] [phone] [place] [address] [place] [address] [phone] Social History Tobacco Use Types Packs/Day Years [...] have completed or the highest Roland, MEd, RACING SECRETARY, MARIE) degree you have received? Sex Assigned at Date Recorded Female 06/26/2021 8:35 AM CDT documented as of this encounter Plan of Treatment Upcoming Encounters Date Type Specialty Care Team Description 08/24/2022 Appointment Radiation Oncology Rickey Barry M.D. [address] [place], [place] [phone] (Wo rk) documented as of this encounter Visit Diagnoses Not on filedocumented in this encounter Additional Health Concerns Infection Onset Date Last Indicated Resolved Time COVID19 Pending 03/16/2022 03/16/2022 03/16/2022 11:54 PM CDT documented as of this encounter Care Teams Auto Slip Cover Installer Relationship Specialty Start Date End Date Elsewhere, Pcp PCP - General Internal Medicine 03/16/22 documented as of this encounter
--- OUTSIDE RECORDS SUMMARY | 2022-08-22 14:44 | XMS_ITS | Encounter Summary ---
:1940 Author Organization [facility] Address [address] [place] [address] Care Team Providers Name Role Phone Elsewhere, Pcp Primary Care Provider Unavailable Reason for Visit Reason Comments Med Refill Encounter Details Date Type Department Care Team Description 08/03/2022 Refill Division of Allergic Diseases Valdemar Snowden M.D. Med Refill in [facility] [address] [facility] [address] [place] [address] [place] [address] [phone] Social History Tobacco Use Types Packs/Day Years [...] have completed or the highest Roland, MEd, DRAPERY OPERATOR, MARIE) degree you have received? Sex Assigned at Date Recorded Female 06/26/2021 8:35 AM CDT documented as of this encounter Plan of Treatment Upcoming Encounters Date Type Specialty Care Team Description 08/24/2022 Appointment Radiation Oncology Rickey Barry M.D. [address] [place] [phone] (Wo rk) documented as of this encounter Visit Diagnoses Diagnosis Asthma Intrinsic (HCC) documented in this encounter Care Teams Continuity Reader Relationship Specialty Start Date End Date Elsewhere, Pcp PCP - General Internal Medicine 03/16/22 documented as of this encounter
--- OUTSIDE RECORDS SUMMARY | 2022-08-22 14:44 | XMS_ITS | Encounter Summary ---
:1940 Author Organization [facility] Address [address] [place] [address] Care Team Providers Name Role Phone Elsewhere, Pcp Primary Care Provider Unavailable Encounter Details Date Type Department Care Team Description 08/03/2022 Documentation Division of Allergic Valdemar Ma, Diseases in [place] [address] [facility] [address] [place] [phone] (Wo rk) Social History Tobacco Use Types [...] have completed or the highest Roland, MEd, OPERATIONS DIRECTOR, MARIE) degree you have received? Sex [...] to her previous asthma flares, she started [id number] mg a day 5 days ago. Overall, [...] Valdemar Ma M.D. CT CT Job ID: [id number] documented in this encounter Plan of Treatment Upcoming Encounters Date Type Specialty Care Team Description 08/24/2022 Appointment Radiation Oncology Rickey Barry M.D. [address] [place] [phone] (Wo rk) documented as of this encounter Visit Diagnoses Not on filedocumented in this encounter Care Teams Pattern Hanger Relationship Specialty Start Date End Date Elsewhere, Pcp PCP - General Internal Medicine 03/16/22 documented as of this encounter
--- OUTSIDE RECORDS SUMMARY | 2022-08-22 14:44 | XMS_ITS | Encounter Summary ---
:1940 Author Organization [facility] Address [address] [place] [address] Care Team Providers Name Role Phone Igor Horn P.A.-C. Primary Care Provider [phone] Reason for Visit Reason Comments Med Refill Encounter Details Date Type Department Care Team Description 02/16/2022 Refill Department of Family Medicine, Igor Ross P.A.-C. Med Refill [facility], in [address] [place] [phone] [place] [address] [place] [address] [phone] Social History Tobacco Use Types Packs/Day Years [...] have completed or the highest Roland, MEd, AUTOMOTIVE FUEL INJECTION SERVICER, MARIE) degree you have received? Sex Assigned at Date Recorded Female 06/26/2021 8:35 AM CDT documented as of this encounter Plan of Treatment Upcoming Encounters Date Type Specialty Care Team Description 08/24/2022 Appointment Radiation Oncology Rickey Barry M.D. [address] [place], [place] [phone] (Wo rk) documented as of this encounter Visit Diagnoses Not on filedocumented in this encounter Care Teams 911 Dispatcher Relationship Specialty Start Date End Date Igor Horn P.A.-C. PCP - General 06/14/18 03/15/22 [address] [place] [address] documented as of this encounter
--- OUTSIDE RECORDS SUMMARY | 2022-08-22 14:44 | XMS_ITS | Encounter Summary ---
:1940 Author Organization [facility] Address [address] [place] [address] Care Team Providers Name Role Phone Elsewhere, Pcp Primary Care Provider Unavailable Reason for Visit Appointment Request (Routine) - Closed Specialty Diagnoses / Procedures Referred By Contact Refer red To Contact Dermatology Diagnoses Screening Examination Skin Cancer Referral ID Status Reason Start Date Expiration Date Visits Requ ested Visits Authorized [id number] Closed 04/12/2022 04/12/2023 1 1 Encounter Details Date Type Department Care Team Description 05/29/2022 Office Visit Department of Brooks, Mervat Keratosis Seborrheic (Primary Dx); Dermatology in A, MOUNTER HAND, C.N.P., Screening Examination Skin Cancer; [place], [place] D.N.P. Dermatoheliosis; 200 [facility] 200 [facility] Personal History Of Other [place] [phone] Social History Tobacco Use Types Packs/Day Years [...] have completed or the highest Roland, MEd, PROGRAM COORDINATOR EXECUTIVE EDUCATION, MARIE) degree you have received? Sex [...] Radiation Oncology Rickey Barry M.D. [address] [place], [place] [phone] (Wo rk) documented as of this encounter Visit Diagnoses Diagnosis Keratosis Seborrheic - Primary Screening Examination Skin Cancer Dermatoheliosis Personal History Of Other Malignant Neop lasm Of Skin documented in this encounter Care Teams Plumbing Instructor Relationship Specialty Start Date End Date Elsewhere, Pcp PCP - General Internal Medicine 03/16/22 documented as of this encounter
--- OUTSIDE RECORDS SUMMARY | 2022-08-22 14:44 | XMS_ITS | Encounter Summary ---
:1940 Author Organization [facility] Address [address] [place] [address] Care Team Providers Name Role Phone Elsewhere, Pcp Primary Care Provider Unavailable Reason for Visit Reason Comments Allergy Testing Spirometry Outpatient (Routine) - Closed Specialty Diagnoses / Procedures Referred By Contact Refer red To Contact Diagnoses Asthma Intrinsic ([facility]) Valdemar Ma M.D. [facility] Procedures Spirometry [address] [place] [phone] Referral ID Status Reason Start Date Expiration Date Visits Requ ested Visits Authorized [id number] Closed 02/12/2022 02/12/2023 1 1 Encounter Details Date Type Department Care Team Description 03/20/2022 Clinical Support Division of Allergic Valdemar Ma M.D. [address] [place] [phone] Asthma Intrinsic Diseases in [place] Dominique R.N. ([facility]) [place], [place] [address] [place] [phone] Social History Tobacco Use Types Packs/Day Years [...] 03/16/2022 organizations such as congregational groups, unions, fraGear6 or athletic groups, or school groups? How [...] have completed or the highest Roland, MEd, LAUNDRY MANAGER, MARIE) degree you have received? Sex Assigned at Date Recorded Female 06/26/2021 8:35 AM CDT documented as of this encounter Plan of Treatment Upcoming Encounters Date Type Specialty Care Team Description 08/24/2022 Appointment Radiation Oncology Rickey Barry M.D. [address] [place] [phone] (Wo rk) documented as of this encounter Procedures Procedure Name Priority Date/Time Associated Comments Diagnosis KS BRONCHODILATION Routine 03/20/2022 8:51 Asthma Intrinsic Re sults for this RESPONSIVENESS AM CDT (HCC) procedure are in the results section. documented in this encounter Results Spirometry (03/20/2022 8:51 AM CDT) Analysis Performed At Patho logist Time Signature VC MAX POST 2.57 L 03/20/2022 [facility] 2:58 PM CDT SUITE PostFVC 2.31 L 03/20/2022 [facility] 2:58 PM CDT SUITE PostFEV1 1.59 L 03/20/2022 [facility] 2:58 PM CDT SUITE FEV1/FVC POST 68.91 % 03/20/2022 [facility] 2:58 PM CDT SUITE FEF 25-75 % 0.97 L/s 03/20/2022 [facility] 2:58 PM CDT SUITE PEF POST 4.78 L/s 03/20/2022 [facility] 2:58 PM CDT SUITE FET POST 16.80 sec 03/20/2022 [facility] 2:58 PM CDT SUITE VC MAX PRE 2.24 L 03/20/2022 [facility] 2:58 PM CDT SUITE FVC 2.12 L 03/20/2022 [facility] 2:58 PM CDT SUITE FEV1 1.40 L 03/20/2022 [facility] 2:58 PM CDT SUITE FEV1/FVC 66.11 % 03/20/2022 [facility] 2:58 PM CDT SUITE UDA06-75% 0.82 L/s 03/20/2022 [facility] 2:58 PM CDT SUITE PEF PRE 4.64 L/s 03/20/2022 [facility] 2:58 PM CDT SUITE FET PRE 18.40 sec 03/20/2022 [facility] 2:58 PM CDT SUITE SUBSTANCE POST Albuterol 03/20/2022 [facility] 2:58 PM CDT SU[address] DOSE POST 2 Puff 03/20/2022 [facility] 2:58 PM CDT SUITE % PRED VC MAX 91 % % 03/20/2022 [facility] 2:58 PM CDT SUITE FVC% 86 % % 03/20/2022 [facility] 2:58 PM CDT SUITE FEV1% 75 % % 03/20/2022 [facility] 2:58 PM CDT SUITE % PRED 86 % % 03/20/2022 [facility] FEV1/FVC 2:58 PM CDT SUITE % PRED FEF 54 % % 03/20/2022 [facility] 25-75% 2:58 PM CDT SUITE % PRED PEF 91 % % 03/20/2022 [facility] 2:58 PM CDT SU[address] PRED VC MAX 2.46 03/20/2022 [facility] 2:58 PM CDT SUITE PRED FVC 2.46 03/20/2022 [facility] 2:58 PM CDT SU[address] PRED FEV 1 1.87 03/20/2022 [facility] 2:58 PM CDT SU[address] PRED FEV1/FVC 77.2 03/20/2022 [facility] 2:58 PM CDT [address] PRED FEF 1.53 03/20/2022 [facility] 25-75% 2:[address] PRED PEF 5.1 03/20/2022 [facility] 2:58 PM CDT SUITE Specimen (Source) Anatomical Collection Method Collection Time Re ceived Time Location / / Volume Laterality 03/20/2022 8:51 AM CDT Impressions [facility] - 03/20/2022 2:58 PM C DT within normal limits Narrative This result has an attachment that is no t available. Procedure Note Valdemar Ma M.D. - 03/20/2022For matting of this note might be different from the original. IMPRESSION: within normal limits Valdemar Ma M.D. PFT ORDERABLES Performing Organization Address City/State/ZIP Code Phon e Number [facility] NA documented in this encounter Visit Diagnoses Diagnosis Asthma Intrinsic (HCC) documented in this encounter Care Teams Custodial Laborer Relationship Specialty Start Date End Date Elsewhere, Pcp PCP - General Internal Medicine 03/16/22 documented as of this encounter
--- OUTSIDE RECORDS SUMMARY | 2022-08-22 14:44 | XMS_ITS | Encounter Summary ---
:1940 Author Organization [facility] Address [address] [place] [address] Care Team Providers Name Role Phone Igor Horn P.A.-C. Primary Care Provider [phone] Reason for Referral Outpatient (Routine) - Closed Specialty Diagnoses / Procedures Referred By Contact Refer red To Contact Diagnoses Asthma Intrinsic (HCC) Valdemar Ma M.D. [facility] Procedures Spirometry [address] [place] [phone] Referral ID Status Reason Start Date Expiration Date Visits Requ ested Visits Authorized [id number] Closed 02/12/2022 02/12/2023 1 1 Encounter Details Date Type Department Care Team Description 02/12/2022 Clinical Communication Division of Allergic Valdemar Ma Diseases in Geovani Ryder M.D. [place] [address] [facility] [address] [place] [phone] Social History Tobacco Use Types Packs/Day Years [...] have completed or the highest Roland, MEd, CHOIR TEACHER, MARIE) degree you have received? Sex [...] Appointment Radiation Oncology Rickey Barry M.D. [address] [place] [address] [place] [phone] (Wo rk) documented as of this encounter Results Spirometry (03/20/2022 8:51 AM CDT) [facility] VC MAX POST 2.57 L 03/20/2022 [facility] 2:58 PM CDT SUITE PostFVC 2.31 L 03/20/2022 [facility] 2:58 PM CDT SUITE PostFEV1 1.59 L 03/20/2022 [facility] 2:58 PM CDT SUITE FEV1/FVC POST 68.91 % 03/20/2022 [facility] 2:58 PM CDT SUITE FEF 25-75 % 0.97 L/s 03/20/2022 [facility] 2:58 PM CDT SUITE PEF POST 4.78 L/s 03/20/2022 [facility] 2:58 PM CDT SUITE FET POST 16.80 sec 03/20/2022 [facility] 2:58 PM CDT SUITE VC MAX PRE 2.24 L 03/20/2022 [facility] 2:58 PM CDT SUITE FVC 2.12 L 03/20/2022 [facility] 2:58 PM CDT SUITE FEV1 1.40 L 03/20/2022 [facility] 2:58 PM CDT SUITE FEV1/FVC 66.11 % 03/20/2022 [facility] 2:58 PM CDT SUITE SWX08-11% 0.82 L/s 03/20/2022 [facility] 2:58 PM CDT SUITE PEF PRE 4.64 L/s 03/20/2022 [facility] 2:58 PM CDT SUITE FET PRE 18.40 sec 03/20/2022 [facility] 2:58 PM CDT SUITE SUBSTANCE POST Albuterol 03/20/2022 [facility] 2:58 PM CDT SUITE DOSE POST 2 Puff 03/20/2022 [facility] 2:58 PM CDT SUITE % PRED VC MAX 91 % % 03/20/2022 [facility] 2:58 PM CDT SUITE FVC% 86 % % 03/20/2022 [facility] 2:58 PM CDT SUITE FEV1% 75 % % 03/20/2022 [facility] 2:58 PM CDT SUITE % PRED 86 % % 03/20/2022 [facility] FEV1/FVC 2:58 PM CDT SUITE % PRED FEF 54 % % 03/20/2022 [facility] 25-75% 2:58 PM CDT SUITE % PRED PEF 91 % % 03/20/2022 [facility] 2:58 PM CDT SUITE PRED VC MAX 2.46 03/20/2022 [facility] 2:58 PM CDT SUITE PRED FVC 2.46 03/20/2022 [facility] 2:58 PM CDT SUITE PRED FEV 1 1.87 03/20/2022 [facility] 2:58 PM CDT SUITE PRED FEV1/FVC 77.2 03/20/2022 [facility] 2:58 PM CDT SUITE PRED FEF 1.53 03/20/2022 [facility] 25-75% 2:58 PM CDT SU[address] PRED PEF 5.1 03/20/2022 [facility] 2:58 PM CDT SUITE Specimen (Source) Anatomical Collection Method Collection Time Re ceived Time Location / / Volume Laterality 03/20/2022 8:51 AM CDT Impressions [facility] - 03/20/2022 2:58 PM C DT within normal limits Narrative This result has an attachment that is no t available. Procedure Note Valdemar Ma M.D. - 03/20/2022For matting of this note might be different from the original. IMPRESSION: within normal limits Valdemar Ma M.D. PFT ORDERABLES Performing Organization Address City/State/ZIP Code Phon e Number [facility] NA documented in this encounter Visit Diagnoses Diagnosis Asthma Intrinsic (HCC) - Primary Asthma Intrinsic (HCC) documented in this encounter Care Teams Can Closing Machine Operator Relationship Specialty Start Date End Date Igor Horn P.A.-C. PCP - General 06/14/18 03/15/22 [address] [place] [phone] documented as of this encounter
--- OUTSIDE RECORDS SUMMARY | 2022-08-22 14:44 | XMS_ITS | Encounter Summary ---
:1940 Author Organization [facility] Address [address] [place] [address] Care Team Providers Name Role Phone Igor Horn P.A.-C. Primary Care Provider [phone] Reason for Visit Reason Comments Med Refill Encounter Details Date Type Department Care Team Description 02/23/2022 Refill Department of Family Medicine, Igor Ross P.A.-C. Med Refill [facility], in [address] [place] [phone] [place] [address] [place] [address] [phone] Social History Tobacco Use Types Packs/Day Years [...] for the very basics like Not h hseyla at all 03/16/2022 food, housing, medical care, [...] have completed or the highest Roland, MEd, STRETCHING MACHINE OPERATOR, MARIE) degree you have received? Sex Assigned at Date Recorded Female 06/26/2021 8:35 AM CDT documented as of this encounter Miscellaneous Notes Telephone Encounter - Lauren Hidalgo - 02/23/2022 10:06 AM CDT Rhett Parkus - Pt will out on Saturday, please send to [facility] documented in this encounter Plan of Treatment Upcoming Encounters Date Type Specialty Care Team Description 08/24/2022 Appointment Radiation Oncology Rickey Barry M.D. [address] [place], [place] [phone] (Wo rk) documented as of this encounter Visit Diagnoses Not on filedocumented in this encounter Care Teams Orthopaedic Technologist Relationship Specialty Start Date End Date Igor Horn P.A.-C. PCP - General 06/14/18 03/15/22 [address] [place] [phone] documented as of this encounter
--- OUTSIDE RECORDS SUMMARY | 2022-08-22 14:44 | XMS_ITS | Encounter Summary ---
:[address] [facility] Address [address] [place] [address] Care Team Providers Name Role Phone Elsewhere, Pcp Primary Care Provider Unavailable Reason for Visit Reason Comments Pre-visit Intake Encounter Details Date Type Department Care Team Description 03/16/2022 Clinical Communication Visit Review in Pr e-visit Intake [place], [place] [address] [place], [place] [phone] Social History Tobacco Use Types Packs/Day Years [...] have completed or the highest Roland, MEd, STAINED GLASS GLAZIER HELPER, MARIE) degree you have received? Sex Assigned at Date Recorded Female 06/26/2021 8:35 AM CDT documented as of this encounter Plan of Treatment Upcoming Encounters Date Type Specialty Care Team Description 08/24/2022 Appointment Radiation Oncology Rickey Barry M.D. [address] [place], [place] [phone] (Wo rk) documented as of this encounter Visit Diagnoses Not on filedocumented in this encounter Additional Health Concerns Infection Onset Date Last Indicated Resolved Time COVID19 Pending 03/16/2022 03/16/2022 03/16/2022 11:54 PM CDT documented as of this encounter Care Teams Sand Cutter Operator Relationship Specialty Start Date End Date Elsewhere, Pcp PCP - General Internal Medicine 03/16/22 documented as of this encounter
--- OUTSIDE RECORDS SUMMARY | 2022-08-22 14:44 | XMS_ITS | Clinical Summary ---
:1940 Author Organization [facility] Address [address] [place] [address] Care Team Providers Name Role Phone Elsewhere, Pcp Primary Care Provider Unavailable Source Comments Patient records contain information from all sites at [facility]. For routine questions regarding patient records, call [phone] during business hours, M-F 8:00 AM - 5:00 PM Central Time. Record requests for emergency care only can be directed to [phone] at any time.[facility] Allergies Active Allergy Reactions Severity Noted Date Comments Animal Dander Shortness of breath 04/05/2016 Cat Dander Other (see comments) 12/21/2009 No reac tion noted in Cerner Cat Hair Standardized Other (see comments) 07/09/2022 Allergenic Extract Codeine Other (see comments) High 11/18/2014 No reac tion noted in Cerner [...] D (two) times a ORAL) day. DOCOSAHEXANOIC 3 (three) 0 12/22/19 Activ e ACID/EPA (FISH OIL times a day. 2 10 ORAL) in AM 1 capsule in PM amoxicillin (AMOXIL) Take 2,000 mg 0 09/27/20 Active 500 mg capsule by mouth. 16 celecoxib (CeleBREX) Take 1 Capsule 90 capsule 3 05/25/20 Active 200 mg capsule (200 mg) by 21 mouth once daily with a meal. triamcinolone Apply to 30 g 0 06/15/20 Active (KENALOG) 0.1 % cream affected area 21 1-2 times daily as needed. Avoid face and groin. triamcinolone Apply to 30 g 0 06/14/20 Active (KENALOG) 0.1 % cream affected area 21 1-2 times daily as needed. Avoid face and groin. ketoconazole (NIZORAL) Apply 1 60 g 11 06/30/20 Active 2 % creamIndications: application 21 Intertrigo topically 2 (two) times a day. Apply to red areas between folds of skin. fluticasone propionate Administer 1 16 g 0 10/02/20 Active (FLONASE) 50 spray into 21 mcg/actuation nasal each nostril sprayIndications: daily as Asthma Intrinsic (HCC) needed for rhinitis or allergies. albuterol 90 Inhale 2 Puffs 54 g 3 02/17/20 Ac tive mcg/actuation inhaler by mouth every 22 4 hours if needed for wheezing. hydroCHLOROthiazide Take 1 Tablet 90 tablet 3 02/20/20 Active (HYDRODIURIL) 25 mg (25 mg) by 22 tablet mouth once daily. levothyroxine Take 1 Tablet 90 tablet 3 02/20/20 Ac tive (SYNTHROID, (75 mcg) by 22 LEVOTHROID) 75 mcg mouth once tablet daily. pravastatin Take 1 Tablet 90 tablet 3 02/20/20 Acti ve (PRAVACHOL) 40 mg (40 mg) by 22 tablet mouth once daily. montelukast Take 1 tablet 90 tablet 3 02/20/20 Acti ve (SINGULAIR) 10 mg (10 mg total) 22 tablet by mouth daily. fluticasone Inhale 1 Puff 180 each 3 02/24/20 Acti ve propion-salmeteroL by mouth once 22 (Advair Diskus) 100-50 daily. mcg/actuation diskus inhaler azelastine (ASTELIN) Administer 2 30 mL 12 03/20/20 Active 137 mcg/spray (0.1 %) sprays into 22 nasal spray each nostril 2 (two) times a day. Use in each nostril as directed predniSONE (DELTASONE) Take 1 tablet 20 tablet 0 08/03/20 Active 10 mg a day for 3 22 tabletIndications: days then 1/2 Asthma Intrinsic (HCC) tablet a day for 4 days ondansetron ODT 0 07/26/20 Acti ve (ZOFRAN-ODT) 4 mg 22 disintegrating tablet azithromycin Take 500 mg 0 08/14/20 Activ e (ZITHROMAX) 250 mg today (day 1), 22 tablet then 250 mg for 4 days (days 2-5) HYDROcodone-acetaminop Take 1-2 0 07/26/20 Active hen (NORCO) 5-325 mg tablets by 22 per tablet mouth every 6 (six) hours as needed. tiotropium (Spiriva Inhale 2 0 08/14/20 Active Respimat) 1.25 puffs. 22 mcg/actuation inhaler lisinopriL Take 40 mg by 0 07/09/20 Activ e (PRINIVIL,ZESTRIL) 40 mouth. 22 mg tablet ketoconazole (NIZORAL) Apply 1 120 mL 11 06/30/20 Discontinued 2 % application (Therapy shampooIndications: topically 3 completed) Intertrigo (three) times a week. Apply to damp skin, lather, leave on 5 minutes, and rinse predniSONE (DELTASONE) Take 1 tablet 20 tablet 0 10/02/2004/12 Discontinued 10 mg (10 mg total) tabletIndications: by mouth Asthma Intrinsic (HCC) daily. albuterol 90 Inhale 2 Puffs 54 g 3 02/17/20 Di scontinued mcg/actuation inhaler by mouth every (Therapy 4 hours if completed ) needed for wheezing. lisinopriL Take 1 Tablet 90 tablet 3 02/20/20 Disco ntinued (PRINIVIL,ZESTRIL) 30 (30 mg) by (Therapy mg tablet mouth once completed ) daily. Active Problems Problem Noted Date Malignant Neoplasm Of Breast Female Left 08/20/2022 Cancer Staging: Pathologic stage from : Stage IA (pT1c, pN0(sn), cM0, G1, ER+, TN+, HER2-) - Unsigned Obesity Body Mass Index 30-39.9 Adult 09/28/2019 [...] Encounters Date Type Specialty Care Team Description 08/20/2022 Clinical Admitting/Central Pre-visit Intake Communication Scheduling 08/03/2022 Documentation Allergy and Valdemar Ma Immunology Cristiana Olivo 08/03/2022 Clinical Allergy and Valdemar Ma Prednisone refill Communication Immunology Cristiana Olivo - flare 08/03/2022 Refill Allergy and Valdemar Ma Med Refill Immunology Cristiana Olivo 05/29/2022 Office Visit Dermatology Mervat Guy Keratosis S eborrheic (Primary Dx); A, OCEAN EXPORT COORDINATOR, C.N.P., Screening E xamination Skin Cancer; D.N.P. [...] Preservative Free Influenza, Seasonal, Injectable 07/19/2011, 09/12/2004, 1204/2004, 10/21/2000, 10/21/2000, 08/28/1996 Influenza, Unspecified 08/03/2015, 07/02/2014, 07/21/2012, 08/26/2011 MMR 03/19/2011 PCV13 06/10/2015 PPSV23 09/15/2008 RZV (SHINGRIX) 08/05/2020, 04/26/2020 Td Preservative Free (TENIVAC, 02/12/2019 DECAVA) Td, (Adult) Unspecified 12/31/1997 Tdap 07/25/2007, 07/25/2007 [...] Smokeless Tobacco: Never Tobacco Cessation: Counseling Given: Not Answered Alcohol Use Standard Drinks/Week Comments Yes 1 [...] have completed or the highest Roland, MEd, GATE WATCHMAN, MARIE) degree you have received? Sex Assigned at Date Recorded Female 06/26/2021 8:35 AM CDT Last Filed Vital Signs Vital Sign Reading Time Taken Comments Blood Pressure 130/62 02/15/2021 9:32 AM CDT Pulse 80 02/15/2021 9:32 AM CDT Temperature 36.9 ??C (98.4 ??F) 03/20/2022 8:54 AM CDT Respiratory Rate 12 02/15/2021 9:32 AM CDT Oxygen Saturation 97% 09/28/2019 10:15 AM INSPECTOR AND UNLOADER Inhaled Oxygen Concentration - - Weight 99.5 kg (219 lb 4 oz) 03/20/2022 8:54 AM CDT Height 159.6 cm (5' 2.84) 03/20/2022 8:54 AM CDT Body Mass Index 39.04 03/20/2022 8:54 AM CDT Plan of Treatment Upcoming Encounters Date Type Specialty Care Team Description 08/24/2022 Appointment Radiation Oncology Rickey Barry M.D. [address] [place] [phone] (Wo rk) Health Maintenance Due Date Last [...] Colorectal Cancer Surveillance Discontinued CT Colonography Discontinued Medical Devices Implanted Type Area Gymnastics Instructor Device Shelf Model / Identifier Expiration Serial / Date Lot Knee Implant Knee Implant Left: Knee Procedures Procedure Name Priority Date/Time Associated Diagnosis [...] Volume Narrative IIMS - 08/14/2022 1:28 PM INSPECTOR AND UNLOADER This order has been created and auto-finalized to support the import of outside images. If available, original i nterpretation can be found on the Media Tab in Chart Review, in Document V iewer, or as an image in QREADS. If a re-interpretation or overread is re quired please follow defined workflow. ?? Provider Not In System IMG BI PROCEDURES Performing Organization Address City/[facility]/ZIP Code Phon e Number IIMS IIMS NA US BREAST NEEDLE LOC LT-Outside US Breast (07/26/2022 8:30 AM CDT)Only the most recent of3 resultswithin the time period is included. Specimen (Source) Anatomical Location Collection Method / Collectio n Time Received Time / Laterality Volume Narrative IIMS - 08/14/2022 1:28 PM INSPECTOR AND UNLOADER This order has been created and auto-finalized [...] e / Group Dates MEDICARE MEDICARE A [id number] 2007-Pres [address] [place] [address] BLUE CROSS BCBS HYDABURG [id number] 2016-Pres [phone] PO TURNER X Cost Share BLUE SHIELD BLUE COST ent [phone] SHARE JOHN MAYER [id number] Care Teams Urogynecology Physician Relationship Specialty Start Date End Date Elsewhere, Pcp PCP - General Internal Medicine 03/16/22
--- OUTSIDE RECORDS SUMMARY | 2022-08-22 14:44 | XMS_ITS | Encounter Summary ---
:1940 Author Organization [facility] Address [address] [place] [address] Care Team Providers Name Role Phone Elsewhere, Pcp Primary Care Provider Unavailable Encounter Details Date Type Department Care Team Description 03/16/2022 [facility] [place] Gerald W, Encounter For [place] Giuliano.Madeleine Preprocedural Laboratory [address] [facility] Examination (COVID-19) [place] [address] [place], [place] [phone] (Wo rk) Social History Tobacco Use Types [...] have completed or the highest Roland, MEd, IRRADIATED FUEL HANDLER, MARIE) degree you have received? Sex Assigned at Date Recorded Female 06/26/2021 8:35 AM CDT documented as of this encounter Plan of Treatment Upcoming Encounters Date Type Specialty Care Team Description 08/24/2022 Appointment Radiation Oncology Rickey Barry M.D. [address] [place], [place] [phone] (Wo rk) documented as of this encounter Procedures Procedure Name Priority Date/Time Associated Diagnosis Comme nts SARS CORONAVIRUS-2 STAT 03/16/2022 9:16 AM Encounter For Re sults for this RNA, V CDT Preprocedural procedure are in Laboratory Examination the r esults (COVID-19) section. documented in this encounter Results SARS Coronavirus-2 RNA, V Asymptomatic (03/16/2022 9:16 AM CDT) [facility] gist Method Time Signature SARS-CoV-2 Swab, 03/16/2022 MKTO [...] pe rformed using the Aptima SARS-CoV-2 assay ([employer] on the [place] Sys tem under emergency use authorization (EUA) by the U.S. Food and Drug Administ ration. Fact sheets for this EUA assay can be fo und at the following links: For Healthcare Providers: https://www.fd a.gov/media/811440/download For Patients: https://www.fda.gov/media/ 926571/download Specimen Anatomical Collection Method Collection Time Receive d Time (Source) Location / / Volume Laterality Varies 03/16/2022 9:16 AM 2:57 (Nasopharynx) CDT PM CDT Valdemar Ma M.D. LAB MICROBIOLOGY - GENERAL O RDERABLES Performing Organization Address City/State/ZIP [facility] Phon e Number [facility] [address] [place] [address] [place] [address] [address] documented in this encounter Visit Diagnoses Diagnosis Encounter For Preprocedural Laboratory E xamination (COVID-19) documented in this encounter Additional Health Concerns Infection Onset Date Last Indicated Resolved Time COVID19 Pending 03/16/2022 03/16/2022 03/16/2022 11:54 PM CDT documented as of this encounter Care Teams Literacy Teacher Relationship Specialty Start Date End Date Elsewhere, Pcp PCP - General Internal Medicine 03/16/22 documented as of this encounter
--- OUTSIDE RECORDS SUMMARY | 2022-08-22 14:44 | XMS_ITS | Encounter Summary ---
:1940 Author Organization [facility] Address [address] [place] [address] Care Team Providers Name Role Phone Igor Horn P.A.-C. Primary Care Provider [phone] Encounter Details Date Type Department Care Team Description 10/25/2021 Orders Only [facility] Express Care Nimisha Deutsch at [facility] MISA, C.N.PAntwan, M.S.N. [address] [place] [address] [place] [address] [place] [phone] (Wo rk) Social History Tobacco Use Types [...] meetings of the More than 4 times [facility] year 03/16/2022 clubs or organizations you [...] have completed or the highest Roland, MEd, FOREIGN FOOD COOK SPECIALTY, MARIE) degree you have received? Sex Assigned at Date Recorded Female 06/26/2021 8:35 AM CDT documented as of this encounter Plan of Treatment Upcoming Encounters Date Type Specialty Care Team Description 08/24/2022 Appointment Radiation Oncology Rickey Barry M.D. [address] [place], [place] [phone] (Wo rk) documented as of this encounter Visit Diagnoses Not on filedocumented in this encounter Care Teams Novelty Twister Operator Relationship Specialty Start Date End Date Igor Horn P.A.-C. PCP - General 06/14/18 03/15/22 [address] [place] [address] documented as of this encounter
--- OUTSIDE RECORDS SUMMARY | 2022-08-22 14:44 | XMS_ITS | Encounter Summary ---
:1940 Author Organization [facility] Address [address] [place] [address] Care Team Providers Name Role Phone Elsewhere, Pcp Primary Care Provider Unavailable Reason for Visit Reason Comments Pre-visit Intake Encounter Details Date Type Department Care Team Description 08/20/2022 Clinical Communication Visit Review in Pr e-visit Intake [place], [place] [address] [place], [place] [phone] Social History Tobacco Use Types Packs/Day Years [...] have completed or the highest Roland, MEd, DOCUMENTATION BILLING CLERK, MARIE) degree you have received? Sex Assigned at Date Recorded Female 06/26/2021 8:35 AM CDT documented as of this encounter Plan of Treatment Upcoming Encounters Date Type Specialty Care Team Description 08/24/2022 Appointment Radiation Oncology Rickey Barry M.D. [address] [place] [phone] (Wo rk) documented as of this encounter Visit Diagnoses Not on filedocumented in this encounter Care Teams School Age Program Teacher Relationship Specialty Start Date End Date Elsewhere, Pcp PCP - General Internal Medicine 03/16/22 documented as of this encounter
--- OUTSIDE RECORDS SUMMARY | 2022-08-22 14:45 | XMS_ITS | Encounter Summary ---
:1940 Author Organization [facility] Address [address] [place] [address] Care Team Providers Name Role Phone Igor Horn P.A.-C. Primary Care Provider [phone] Encounter Details Date Type Department Care Team Description 03/03/2021 Clinical Communication Division of Allergic Volcheck [facility] Diseases in [place] Ryder M.D. [address] [place] [phone] Social History Tobacco Use Types Packs/Day Years [...] have completed or the highest Roland, Katie, HOT CAR OPERATOR, MARIE) degree you have received? Sex Assigned at Date Recorded Female 06/26/2021 8:35 AM CDT documented as of this encounter Plan of Treatment Upcoming Encounters Date Type Specialty Care Team Description 08/24/2022 Appointment Radiation Oncology Rickey Barry M.D. [address] [place], [place] [phone] (Wo rk) documented as of this encounter Visit Diagnoses Not on filedocumented in this encounter Care Teams Family Assistant Relationship Specialty Start Date End Date Igor Horn P.A.-C. PCP - General 06/14/18 03/15/22 [address] [place] [phone] documented as of this encounter
--- OUTSIDE RECORDS SUMMARY | 2022-08-22 14:45 | XMS_ITS | Encounter Summary ---
:1940 Author Organization [facility] Address [address] [place] [address] Care Team Providers Name Role Phone Igor Horn P.A.-C. Primary Care Provider [phone] Reason for Visit Reason Comments Med Refill Encounter Details Date Type Department Care Team Description 05/22/2021 Refill Department of Family Medicine, Igor Ross P.A.-C. Med Refill [facility], in [address] [place] [phone] [place] [address] [place] [address] [phone] Social History Tobacco Use Types Packs/Day Years [...] have completed or the highest Roland, MEd, PHYSICIAN PRIMARY CARE SPORTS MEDICINE, MARIE) degree you have received? Sex Assigned at Date Recorded Female 06/26/2021 8:35 AM CDT documented as of this encounter Miscellaneous Notes Telephone Encounter - Kat Valenzuela L.P.N. - 05/25/2021 4:19 PM CDT Patient responded to portal message her arthritis started bothering her when she came back to [place] and restarted the Celebrex 200 mg daily [...] mouth once daily with a meal. Pharmacy: [facility] documented in this encounter Plan of Treatment Upcoming Encounters Date Type Specialty Care Team Description 08/24/2022 Appointment Radiation Oncology Rickey Barry M.D. [address] [place], [place] [phone] (Wo rk) documented as of this encounter Visit Diagnoses Not on filedocumented in this encounter Care Teams Terra Cotta Roofer Relationship Specialty Start Date End Date Igor Horn P.A.-C. PCP - General 06/14/18 03/15/[address] [place] [phone] documented as of this encounter
--- OUTSIDE RECORDS SUMMARY | 2022-08-22 14:45 | XMS_ITS | Encounter Summary ---
:1940 Author Organization [facility] Address [address] [place] [address] Care Team Providers Name Role Phone Igor Horn P.A.-C. Primary Care Provider [phone] Reason for Referral Outpatient (Routine) - Closed Specialty Diagnoses / Procedures Referred By Contact Refer red To Contact Family Medicine Igor Horn P. A.-C. [facility] [address] [phone] Referral ID Status Reason Start Date Expiration Date Visits Requ ested Visits Authorized [id number] Closed 02/15/2021 02/15/2022 1 1 Reason for Visit Reason Comments Med Management Discuss Pravastatin 1. Labs completed, No other concerns. Outpatient (Routine) - Closed Specialty Diagnoses / Procedures Referred By Contact Refer red To Contact Family Igor Winter P. A.-C. [facility] [address] [phone] Referral ID Status Reason Start Date Expiration Date Visits Requ ested Visits Authorized [id number] Closed 02/24/2020 02/23/2021 1 1 Encounter Details Date Type Department Care Team Description 02/15/2021 Comprehensive Visit Department of Coreen Horn (BREANNE) (Primary Dx); Family Igor Little Screening C ancfox Colon; [facility], [facility]. Hypertension Essential Primary; in [place], [address] Hyperlipidemia; [place], [place] Hypothyroidism Primary; [address] [phone] Rhinitis Allergic; [place], [place] [phone] General Medica l Examination Adult; [phone] (Work) Screening Mammogram Breast Cancer [phone] Social History Tobacco Use Types Packs/Day Years [...] have completed or the highest Roland, MEd, CORNER TRIMMER OPERATOR, MARIE) degree you have received? Sex [...] bothers her more when she was in [place]. Fortunately when she was in [place] her arthritis was much improved. She says this may be getting a little worse now that she is back in [place]. She has been trying some tumeric. She [...] be doing better when she is in [place] #2 Screening Cancer Colon We did discuss colon cancer screening. She is of average risk. [facility]. We did discuss continuing to do screening [...] Oncology Rickey Barry M.D. [address] [place], [place] [phone] (Wo rk) Scheduled Orders Name Type [...] Name Type Priority Associated Diagnoses Order S [facility] Medicine Outpatient Referral Routine Expec michelle: [...] (02/27/2021 9:55 PM CDT) Analysis Performed At [facility] Time Signature Result Negative Not [...] 94.7%). These data are based on a [facility] cross-sectional screening study of 10,00 0 individuals at average risk for colorectal cancer who w ere screened with both Cologuard and colonoscopy. (June Dumas et al, N Engl J Med 2014;370(14):1452-3429) The normal value (reference range) for this assay is negative. COLOG UARD RE-SCREENING RECOMMENDATION: Periodic routine colorec riya cancer screening is an important part of preven tive healthcare for asymptomatic persons at average risk for colorectal cancer. Following a negative Cologuard result, enoch ramirez [place] Cancer Society and U.S. Multi-Society Task Forc e screening guidelines recommend a Cologuard re-scre ening interval of 3 years. References: [place] Cancer Socie ty (ACS). Colorectal cancer prevention and early d etection. [place], [place]: [place] [employer] Society; [updated 20 Jan 28]. https://www.cancer.org/cancer/colon-rect al-cancer/detection- diagnosis-staging/acs-recommendations.ht ml. Accessed June 06, 2018; Yung LAMBERT, Med PECK, Ernesto DurantK , Colorectal Cancer Screening: Recommendations for Physician s and Patients from the U.S. Multi-Society Task Force on Col orectal Cancer Screening, Am J Gastroenterology 2017; 1 12:4017-3600. TEST TYPE: Composite algorithmic analysi s of [...] interval of every 3 years by the [place] Cancer Soc iety and U.S. Multi-Society Task [...] can be accessed at the following location: www.PlayMotion.com/results. Additional de scription of the Cologuard test process, warnings and pre cautions can be found at www.cologuardtest.com. Rx only. Specimen Anatomical Collection Method Collection Time Receive d Time (Source) Location / / Volume Laterality Stool (Stool) 02/27/2021 9:55 PM 03/01/20 21 3:38 CDT PM CDT Igor Horn P.A.-C. LAB BODY FLUIDS AND STOOLS O RDERABLES Performing Organization Address City/State/ZIP Code Phon e Number [facility] [address] [place], [place] [address] [place] [address] [address] [place] [address], [address] documented in this encounter Visit Diagnoses Diagnosis Asthma Intrinsic (HCC) - Primary Screening Cancer Colon Hypertension Essential Primary Hyperlipidemia Hypothyroidism Primary Rhinitis Allergic General Medical Examination Adult Screening Mammogram Breast Cancer documented in this encounter Care Teams Solar Manager Relationship Specialty Start Date End Date Igor Horn P.A.-C. PCP - General 06/14/18 03/15/22 [address] [place] [address] documented as of this encounter
--- OUTSIDE RECORDS SUMMARY | 2022-08-22 14:45 | XMS_ITS | Encounter Summary ---
:1940 Author Organization [facility] Address [address] [place] [address] Care Team Providers Name Role Phone Apolonia Horn P.A.-C. Primary Care Provider [phone] Reason for Visit Reason Comments Communication Derm Encounter Details Date Type Department Care Team Description 05/10/2021 Clinical Department of Steve Horn (Derm) Communication [facility] in [place], [address] [place] [address] [address] [facility] [address] [place], [place] [phone] [address] (Work) [phone] Social History Tobacco Use Types Packs/Day Years [...] have completed or the highest Roland, MEd, WOOD GRINDER, MARIE) degree you have received? Sex [...] order for her to see Dermatology in [place]. Thank you. documented in this encounter Plan of Treatment Upcoming Encounters Date Type Specialty Care Team Description 08/24/2022 Appointment Radiation Oncology Rickey Barry M.D. [address] [place], [place] [phone] (Wo rk) documented as of this encounter Visit Diagnoses Diagnosis Rash - Primary documented in this encounter Care Teams Custom Applicator Relationship Specialty Start Date End Date Apolonia Horn P.A.-C. PCP - General 06/14/18 03/15/22 [address] [place] [address] documented as of this encounter
--- OUTSIDE RECORDS SUMMARY | 2022-08-22 14:45 | XMS_ITS | Encounter Summary ---
:1940 Author Organization [facility] Address [address] [place] [address] Care Team Providers Name Role Phone Igor Horn P.A.-C. Primary Care Provider [phone] Encounter Details Date Type Department Care Team Description 10/23/2021 Clinical Communication Department of Igor Byrd, Medicine, [facility] [employer], in [address] [address] [place], [place] [phone] (Work) [phone] Social History Tobacco Use Types Packs/Day Years [...] have completed or the highest Roland, MEd, EDGE GRINDER MACHINE, MARIE) degree you have received? Sex Assigned at Date Recorded Female 06/26/2021 8:35 AM CDT documented as of this encounter Plan of Treatment Upcoming Encounters Date Type Specialty Care Team Description 08/24/2022 Appointment Radiation Oncology Rickey Barry M.D. [address] [place], [place] [phone] (Wo rk) documented as of this encounter Visit Diagnoses Not on filedocumented in this encounter Care Teams Acting Professor Relationship Specialty Start Date End Date Igor Horn P.A.-C. PCP - General 06/14/18 03/15/22 [address] [place] [phone] documented as of this encounter
--- OUTSIDE RECORDS SUMMARY | 2022-08-22 14:45 | XMS_ITS | Encounter Summary ---
:1940 Author Organization [facility] Address [address] [place] [address] Care Team Providers Name Role Phone Igor Horn P.A.-C. Primary Care Provider [phone] Encounter Details Date Type Department Care Team Description 12/02/2020 Orders Only Department of [facility] Igor Horn, Medicine, [facility], PNeda Jones in [facility] [address] [place] [address] [place] [address] [phone] Social History Tobacco Use Types Packs/Day Years [...] Radiation Oncology Rickey Barry M.D. [address] [place], [place] [phone] (Wo rk) documented as of this encounter Visit Diagnoses Not on filedocumented in this encounter Care Teams Flexo Folder Gluer Operator Relationship Specialty Start Date End Date Igor Horn P.A.-C. PCP - General 06/14/18 03/15/22 225 [place] [address] documented as of this encounter
--- OUTSIDE RECORDS SUMMARY | 2022-08-22 14:45 | XMS_ITS | Encounter Summary ---
:1940 Author Organization [facility] Address [address] [place] [address] Care Team Providers Name Role Phone Igor Horn P.A.-C. Primary Care Provider [phone] Reason for Referral Outpatient (Routine) - Closed Specialty Diagnoses / Procedures Referred By Contact Refer red To Contact Allergy and Immunology Valdemar Ma [place] M.D. [address] [place] [address] Referral ID Status Reason Start Date Expiration Date Visits Requ ested Visits Authorized [id number] Closed 01/10/2021 01/10/2022 1 1 Scheduling Instructions Patient prefers mid-morning appointments after February 09, 2021 Reason for Visit Reason Comments Symptom Assessment Encounter Details Date Type Department Care Team Description 01/09/2021 Clinical Communication Division of Kat Spain ptom Assessment Allergic Diseases D, R.N. in [place], [address] [place] [address] [place] [address] [place], [place] [phone] (Work) [phone] Social History Tobacco Use Types Packs/Day Years [...] appointment with Dr. Ma upon return to [place]. She expressed that she will return February [...] be seen for asthma symptoms while in [place] for the winter. ASSESSMENT/PLAN The following home [...] Oncology Rickey Barry M.D. [address] [place], [place] [phone] (Wo rk) Scheduled Referrals Name Type Priority Associated Order Schedule Diagnoses Allergy and Outpatient Referral Routine Expected : Immunology office 03/10/2021 visit (clinic) (Approximate) , Expires: 01/10/2024 documented as of this encounter Visit Diagnoses Not on filedocumented in this encounter Care Teams Team Psychologist Relationship Specialty Start Date End Date Igor Horn P.A.-C. PCP - General 06/14/18 03/15/22 225 [place] [address] documented as of this encounter
--- OUTSIDE RECORDS SUMMARY | 2022-08-22 14:45 | XMS_ITS | Encounter Summary ---
:1940 Author Organization [facility] Address [address] [place] [address] Care Team Providers Name Role Phone Igor Horn P.A.-C. Primary Care Provider [phone] Encounter Details Date Type Department Care Team Description 02/15/2021 Hospital Encounter Department of Melissa Horn Essential Primary; Laboratory Medicine Reyna Costa Hypothyroidism Primary; in [place], [address] [place] [address] Hyperlipidemia; [place], [place] Encounter For Screening For Cardiovascular Disorders [address] [facility] [address] [place], [place] [phone] [address] (Work) [phone] Social History Tobacco Use Types Packs/Day Years [...] have completed or the highest Roland, MEd, MECHANIC CHIEF, MARIE) degree you have received? Sex Assigned [...] Appointment Radiation Oncology Rickey Barry M.D. [address] [place] [phone] (Wo rk) documented as of this [...] Organization Address City/State/ZIP Code Phon e Number [facility]- [address] [place] [address] [facility] [address] System in [place] [address] (ABNORMAL) Lipid Panel (02/15/2021 [...] Organization Address City/State/ZIP Code Phon e Number [facility]- [address] [place] [address] [place] [address] System in [place] [address] [facility] Comprehensive Metabolic Panel (02/15/2021 8:46 AM CDT) [...] CDT eGFR-Black/Afric 83 >=60 02/15/2021 OW[place] an Russian mL/min/BSA 11:23 AM CDT Comment: ----ADDITIONAL INFORMATION---- [...] Organization Address City/State/ZIP Code Phon e Number [facility]- [address] [place] [address] [place] [address] System in [place] [address] documented in this encounter Visit Diagnoses Diagnosis Hypertension Essential Primary Hypothyroidism Primary Hyperlipidemia Encounter For Screening For Cardiovascul ar Disorders documented in this encounter Care Teams Inspector Sheet Metal Parts Relationship Specialty Start Date End Date Igor Horn P.A.-C. PCP - General 06/14/18 03/15/22 [address] [place] [phone] documented as of this encounter
--- OUTSIDE RECORDS SUMMARY | 2022-08-22 14:45 | XMS_ITS | Encounter Summary ---
:1940 Author Organization [facility] Address [address] [place] [address] Care Team Providers Name Role Phone Igor Horn P.A.-C. Primary Care Provider [phone] Encounter Details Date Type Department Care Team Description 12/01/2020 Orders Only Department of [facility] Igor Horn, Medicine, [facility], PNeda Jones in [facility] [address] [place] [address] [place] [address] [phone] Social History Tobacco Use Types Packs/Day Years [...] Radiation Oncology Rickey Barry M.D. [address] [place], [place] [phone] (Wo rk) documented as of this encounter Visit Diagnoses Not on filedocumented in this encounter Care Teams Mall Manager Relationship Specialty Start Date End Date Igor Horn P.A.-C. PCP - General 06/14/18 03/15/22 225 [place] [address] documented as of this encounter
--- OUTSIDE RECORDS SUMMARY | 2022-08-22 14:45 | XMS_ITS | Encounter Summary ---
:1940 Author Organization [facility] Address [address] [place] [address] Care Team Providers Name Role Phone Igor Horn P.A.-C. Primary Care Provider [phone] Encounter Details Date Type Department Care Team Description 11/21/2020 Orders Only [facility] Sa tanisha Arora M.D. [address] [place], [place] [phone] (Wo rk) Social History [...] Radiation Oncology Rickey Barry M.D. [address] [place], [place] [phone] (Wo rk) documented as of this encounter Visit Diagnoses Not on filedocumented in this encounter Care Teams Grease Cup Filler Relationship Specialty Start Date End Date Igor Horn P.A.-C. PCP - General 06/14/18 03/15/22 [address] [place] [address] documented as of this encounter
--- OUTSIDE RECORDS SUMMARY | 2022-08-22 14:45 | XMS_ITS | Encounter Summary ---
:1940 Author Organization [facility] Address [address] [place] [address] Care Team Providers Name Role Phone Igor Horn P.A.-C. Primary Care Provider [phone] Encounter Details Date Type Department Care [...] have completed or the highest Roland, MEd, STUCCO WORKER, MARIE) degree you have received? Sex Assigned at Date Recorded Female 06/26/2021 8:35 AM CDT documented as of this encounter Plan of Treatment Upcoming Encounters Date Type Specialty Care Team Description 08/24/2022 Appointment Radiation Oncology Rickey Barry M.D. [address] [place], [place] [phone] (Wo rk) documented as [...] on filedocumented in this encounter Care Teams Videotape Sales Representative Relationship Specialty Start Date End Date Igor Horn P.A.-C. PCP - General 06/14/18 03/15/22 [address] [place] [address] documented as of this encounter
--- OUTSIDE RECORDS SUMMARY | 2022-08-22 14:45 | XMS_ITS | Encounter Summary ---
:1940 Author Organization [facility] Address [address] [place] [address] Care Team Providers Name Role Phone Igor Horn P.A.-C. Primary Care Provider [phone] Reason for Visit Reason Comments Med Refill Encounter Details Date Type Department Care Team Description 07/04/2021 Refill Department of Family Medicine, Igor Ross P.A.-C. Med Refill [facility], in [address] [place] [address] [place] [address] [place] [address] [phone] Social History Tobacco Use Types Packs/Day Years [...] have completed or the highest Roland, MEd, INTERNET ASSESSOR, MARIE) degree you have received? Sex Assigned at Date Recorded Female 06/26/2021 8:35 AM CDT documented as of this encounter Miscellaneous Notes Telephone Encounter - Lashonda Samuel - 07/04/2021 1:48 PM CDT Images from the original note were not included. Nurse review: Unable to forward request to provider; Discrepancy; Verification Required. Directions on med list are incomplete Primary Provider: Igor Horn P.A.-C. Pharmacy: [facility] documented in this encounter Plan of Treatment Upcoming Encounters Date Type Specialty Care Team Description 08/24/2022 Appointment Radiation Oncology Rickey Barry M.D. [address] [place], [place] [phone] (Wo rk) documented as of this encounter Visit Diagnoses Not on filedocumented in this encounter Care Teams Riveting Machine Operator Automatic Relationship Specialty Start Date End Date Igor Horn P.A.-C. PCP - General 06/14/18 03/15/[address] [place] [address] documented as of this encounter
--- OUTSIDE RECORDS SUMMARY | 2022-08-22 14:45 | XMS_ITS | Encounter Summary ---
:1940 Author Organization [facility] Address [address] [place] [address] Care Team Providers Name Role Phone Igor Horn P.A.-C. Primary Care Provider [phone] Reason for Visit Reason Comments Med Refill Encounter Details Date Type Department Care Team Description 09/13/2021 Refill Department of Family Medicine, Igor Ross P.A.-C. Med Refill [facility], in [address] [place] [phone] [place] [address] [place] [address] [phone] Social History Tobacco Use Types Packs/Day Years [...] have completed or the highest Roland, MEd, PRINT TRAFFIC MANAGER, MARIE) degree you have received? Sex Assigned at Date Recorded Female 06/26/2021 8:35 AM CDT documented as of this encounter Miscellaneous Notes Addendum Note - Gerson Reaves L.P.N. - 09/14/2021 1:43 PM COLON THERAPIST Addended by: GERSON REAVES on: 09/14/2021 01:43 PM Modules accepted: Orders N THERAPIST Telephone Encounter - Gerson Reaves L.P.NAntwan - 09/14/2021 1:40 PM COLON THERAPIST SUBJECTIVE CHIEF COMPLAINT / REASON FOR CALL [...] The following references were used: provider Igor N THERAPIST documented in this encounter Plan of Treatment Upcoming Encounters Date Type Specialty Care Team Description 08/24/2022 Appointment Radiation Oncology Rickey Barry M.D. [address] [place], [place] [phone] (Wo rk) documented as of this encounter Visit Diagnoses Not on filedocumented in this encounter Care Teams Sand Technologist Relationship Specialty Start Date End Date Igor Horn P.A.-C. PCP - General 06/14/18 03/15/[address] [place] [address] documented as of this encounter
--- OUTSIDE RECORDS SUMMARY | 2022-08-22 14:45 | XMS_ITS | Encounter Summary ---
:1940 Author Organization [facility] Address [address] [place] [address] Care Team Providers Name Role Phone Igor Horn P.A.-C. Primary Care Provider [phone] Reason for Visit Reason Comments Follow-up question re prednisone Encounter Details Date Type Department Care Team Description 01/16/2021 Clinical Communication Division of Kang Ma-up question Allergic Diseases Valdemar Olivo M.D. re prednisone in [place], [address] [place] [address] [place] [address] [place], [place] [phone] (Work) [phone] Social History Tobacco Use Types Packs/Day Years [...] meetings of the [facility] than [facility] year 03/16/2022 clubs or organizations you [...] Radiation Oncology Rickey Barry M.D. [address] [place], [place] [phone] (Wo rk) documented as of this encounter Visit Diagnoses Not on filedocumented in this encounter Care Teams Car Customizer Relationship Specialty Start Date End Date Igor Horn P.A.-C. PCP - General 06/14/18 03/15/22 [address] [place] [address] documented as of this encounter
--- OUTSIDE RECORDS SUMMARY | 2022-08-22 14:45 | XMS_ITS | Encounter Summary ---
:1940 Author Organization [facility] Address [address] [place] [address] Care Team Providers Name Role Phone Igor Horn P.A.-C. Primary Care Provider [phone] Reason for Visit Reason Comments Med Refill Encounter Details Date Type Department Care Team Description 06/13/2021 Refill Department of Family Medicine, Igor Ross P.A.-C. Med Refill [facility], in [address] [place] [address] [place] [address] [place] [address] [phone] Social History Tobacco Use Types Packs/Day Years [...] have completed or the highest Roland, MEd, EYELET MAKER, MARIE) degree you have received? Sex Assigned at Date Recorded Female 06/26/2021 8:35 AM CDT documented as of this encounter Plan of Treatment Upcoming Encounters Date Type Specialty Care Team Description 08/24/2022 Appointment Radiation Oncology Rickey Barry M.D. [address] [place], [place] [phone] (Wo rk) documented as of this encounter Visit Diagnoses Not on filedocumented in this encounter Care Teams Plaster Pattern Caster Relationship Specialty Start Date End Date Igor Horn P.A.-C. PCP - General 06/14/18 03/15/22 [address] [place] [address] documented as of this encounter
--- OUTSIDE RECORDS SUMMARY | 2022-08-22 14:45 | XMS_ITS | Encounter Summary ---
:1940 Author Organization [facility] Address [address] [place] [address] Care Team Providers Name Role Phone Igor Horn P.A.-C. Primary Care Provider [phone] Reason for Visit Reason Comments COVID Nurse Line Triage Encounter Details Date Type Department Care Team Description 10/23/2021 Nurse Triage Department of [facility] Niharika Live C OVID Nurse Line; Medicine, [facility], in [place], [place] (Work) [address] [place] [address] Social History Tobacco Use Types Packs/Day Years [...] have completed or the highest Roland, MEd, RISK MANAGEMENT INTERNSHIP, MARIE) degree you have received? Sex Assigned at Date Recorded Female 06/26/2021 8:35 AM CDT documented as of this encounter Miscellaneous Notes Telephone Encounter - Niharika Evans, RAntwanN. - 10/23/2021 8:46 AM MINE MOTOR OPERATOR Chief Complaint / Reason for Call Patient [...] RSV and Strep Select appropriate region: : [place] Do you have any of the following [...] (Oseltamivir)?: Yes and patient is an established [facility] patient*. When screening complete, run the Influenza [...] swabbed for COVID-19 and Influenza, sent to [place] located at [address] [place] [address] ([facility]). An appointment is required for testing, please call [phone] Saturday-Saturday 7am to 6pm and Saturday & [...] frequently with soap and water, use hand vegetable grower if soap and water aren't available. -Wear [...] The following references were used: [facility] novel coronavirus (COVID- 19) resources CDC web site https://www.cdc.gov/coronavirus/2019-ncov/your-health/index.html Nursing judgement MOTOR OPERATOR documented in this encounter Plan of Treatment Upcoming Encounters Date Type Specialty Care Team Description 08/24/2022 Appointment Radiation Oncology Rickey Barry M.D. [address] [place], [place] [phone] (Wo rk) documented as of this encounter Visit Diagnoses Not on filedocumented in this encounter Care Teams Hot Mix Operator Relationship Specialty Start Date End Date Igor Horn P.A.-C. PCP - General 06/14/18 03/15/22 [address] [place] [address] documented as of this encounter
--- OUTSIDE RECORDS SUMMARY | 2022-08-22 14:45 | XMS_ITS | Encounter Summary ---
:1940 Author Organization [facility] Address [address] [place] [address] Care Team Providers Name Role Phone Igor Horn P.A.-C. Primary Care Provider [phone] Reason for Visit Outpatient (Routine) - Closed Specialty Diagnoses / Procedures Referred By Contact Refer red To Contact Dermatology Diagnoses Lesion Skin Igor Horn P.A.-C. [place] [address] [place] [address] Referral ID Status Reason Start Date Expiration Date Visits V isits Requested Authorized [id number] Closed Specialty 05/15/2021 05/15/2022 1 1 Services Required Encounter Details Date Type Department Care Team Description 06/30/2021 Comprehensive Visit Department of Mervat Guy atosis Seborrheic (Primary Dx); Dermatology in A, RAMP LEAD, C.N.P., Cancer Sk in Basal Cell Personal History; Aleksey, D.N.P. Cancer Skin Squamous Cell Personal Histo ry; [place] [address] [place] [address] Tumor Skin Uncertain Behavior; [address] [place] [address] Dermatoheliosis; [place] [address] Angioma Salmeron; [phone] [employer] Social History Tobacco Use Types Packs/Day [...] 03/16/2022 organizations such as mormonism groups, unions, [employer] [place] or athletic groups, or school groups? How [...] have completed or the highest Roland, MEd, DONOR SPECIALIST, MARIE) degree you have received? Sex Assigned at Date Recorded Female 06/26/2021 8:35 AM CDT documented as of this encounter Progress Notes Kathryn Moreau, R.N. - 06/30/2021 10:00 AM CDT Shave biopsy with electrodesiccation and curettage on the lower back was/were performed as ordered and outlined by Mervat Guy ([id number]) RAMP LEAD, RISK MANAGEMENT INTERN, MSN in the clinical note dated with [...] the breasts and under the abdomen for [id number] irritation, which worsened this summer. The patient does spend her ashley in [place], and tries to be diligent withphotoprotection. Allergies [...] the patient by letter. Patient given pamphlet [id number]. The anesthesia used was 1% lidocaine with [...] Radiation Oncology Rickey Barry M.D. [address] [place], [place] [phone] (Wo rk) documented as of this encounter Procedures Procedure Name Priority Date/Time Associated Diagnosis [facility] DERMATOPATHOLOGY Routine 06/30/2021 10:01 AM Cancer Skin Basal Results for this CDT Cell Personal procedure are in History the results Cancer Skin Squamous section . Cell Personal History Keratosis Seborr heic Tumor Skin Uncertain Behavior documented in this encounter Results Dermatopathology (06/30/2021 10:01 AM CDT) Component Value Ref Test Analysis Performed At [facility] Range Method Time Signature 07/05/2021 [facility] 8:24 AM CDT Report Wicho Cameron 07/05/2021 [facility] electronically Jose, 8:24 AM CDT signed by Cristiana Gross Description Received in formalin labeled with the patient's n vikram, 07/05/2021 [facility] medical record number, and right lower paraspinal back is 8:24 AM CDT a 1.4 x 0.6 x 0.1 cm pale mccarthy skin shave biopsy. No discrete lesion is grossly identified on the skin surface. The specimen is bisected and submitted entirely in cassette A1. ??Grossed by AJG. Interpretation FINAL DIAGNOSIS 07/05/2021 [facility] A. ??Right lower paraspinal back, Skin shave biopsy: 8:24 AM CDT Superficial and nodular basal cell carcinoma, involving biopsy border Specimen (Source) Anatomical Collection Method Collection Time Re ceived Time Location / / Volume Laterality Skin (Right lower 06/30/2021 10:01 paraspinal back) AM CDT Narrative This result has an attachment that is no t available. Mervat Guy APRN, C.N.P., MadeleineNAvtar LAB PATH DERM O RDERABLES Performing Organization Address City/State/ZIP Code Phon e Number [facility] - [address] [place], [place] [address] [facility] [place] [address] [facility] [address] documented in this encounter Visit Diagnoses Diagnosis Keratosis Seborrheic - Primary Cancer Skin Basal Cell Personal History Cancer Skin Squamous Cell Personal Histo ry Tumor Skin Uncertain Behavior Dermatoheliosis Angioma Salmeron Intertrigo documented in this encounter Care Teams Solar Sales Manager Relationship Specialty Start Date End Date Igor Horn P.A.-C. PCP - General 06/14/18 03/15/22 [address] [place] [address] documented as of this encounter
--- OUTSIDE RECORDS SUMMARY | 2022-08-22 14:45 | XMS_ITS | Encounter Summary ---
:1940 Author Organization [facility] Address [address] [place] [address] Care Team Providers Name Role Phone Igor Horn P.A.-C. Primary Care Provider [phone] Reason for Referral Outpatient (Routine) - Closed Specialty Diagnoses / Procedures Referred By Contact Refer red To Contact Allergy and Immunology Valdemar Ma Roche [place] Region M.D. 200 [place] [address] Referral ID Status Reason Start Date Expiration Date Visits Requ ested Visits Authorized [id number] Closed 03/07/2021 03/07/2022 1 1 Reason for Visit Outpatient (Routine) - Closed Specialty Diagnoses / Procedures Referred By Contact Refer red To Contact Allergy parmjit Immunology Valdemar Ma [place] [address] Referral ID Status Reason Start Date Expiration Date Visits Requ ested Visits Authorized [id number] Closed 01/10/2021 01/10/2022 1 1 Encounter Details Date Type Department Care Team Description 03/07/2021 Office Visit Division of Allergic Valdemar Maa Intrinsic (HCC) Diseases in Geovani Ryder M.D. (Primary Dx) [place] [address] [facility] 200 [place] [address] [phone] Social History Tobacco Use Types Packs/Day Years [...] have completed or the highest Roland, MEd, FIG BAR MACHINE OPERATOR, MARIE) degree you have received? [...] Ms. Cedeño is a 80-year-old female from [place], [place], who ashley in [place] from August through February with longstanding history of asthma. She was last seen in the division in August of 2018. Over the course of the last year, in general she had done well except for the December time frame whilein [place]. At that time, she had increased cough, [...] of her symptoms in December while in [place] and generally does better here in [place] [...] this prior to her going back to [place] in August. At present, we will continue [...] Valdemar Ma M.D. CT CT Job ID: [id number] documented in this encounter Plan of Treatment Upcoming Encounters Date Type Specialty Care Team Description 08/24/2022 Appointment Radiation Oncology Rickey Barry M.D. [address] [place], [place] [phone] (Wo rk) Scheduled Referrals Name Type Priority Associated Order Schedule Diagnoses Allergy and Outpatient Referral Routine Expected : Immunology office 03/07/2022 visit (clinic) (Approximate) , Expires: 03/07/2024 documented as of this encounter Visit Diagnoses Diagnosis Asthma Intrinsic (HCC) - Primary documented in this encounter Care Teams Pier Hand Helper Relationship Specialty Start Date End Date Igor Horn P.A.-C. PCP - General 06/14/18 03/15/[address] [place] [address] documented as of this encounter
--- OUTSIDE RECORDS SUMMARY | 2022-08-22 14:45 | XMS_ITS | Encounter Summary ---
:[address] [facility] Address [address] [place] [address] Care Team Providers Name Role Phone Igor Horn P.A.-C. Primary Care Provider [phone] Reason for Visit Reason Comments Med Refill Encounter Details Date Type Department Care Team Description 02/06/2021 Refill Department of Family Medicine, Igor Ross P.A.-C. Med Refill [facility], in [address] [place] [phone] [place] [address] [place] [address] [phone] Social History Tobacco Use Types Packs/Day Years [...] Radiation Oncology Rickey Barry M.D. [address] [place], [place] [phone] (Wo rk) documented as of this encounter Visit Diagnoses Not on filedocumented in this encounter Care Teams Tour Actor Relationship Specialty Start Date End Date Igor Horn P.A.-C. PCP - General 06/14/18 03/15/22 [address] [place] [phone] documented as of this encounter
--- OUTSIDE RECORDS SUMMARY | 2022-08-22 14:45 | XMS_ITS | Encounter Summary ---
:1940 Author Organization [facility] Address [address] [place] [address] Care Team Providers Name Role Phone Igor Horn P.A.-C. Primary Care Provider [phone] Reason for Visit Reason Comments Medication Question Encounter Details Date Type Department Care Team Description 10/02/2021 Clinical Communication Division of Anil, Medic ation Question Allergic Diseases Valdemar Olivo M.D. in [address] [place] [address] [place], [place] [phone] (Work) [phone] Social History Tobacco Use Types Packs/Day Years [...] have completed or the highest Roland, MEd, VARNISH THINNER, MARIE) degree you have received? Sex Assigned at Date Recorded Female 06/26/2021 8:35 AM CDT documented as of this encounter Miscellaneous Notes Addendum Note - John Paul Flores R.N. - 10/02/2021 12:56 PM SHIATSU THERAPIST Addended by: JOHN PAUL FLORES on: 10/02/2021 12:56 PM Modules accepted: Orders TSU THERAPIST Telephone Encounter - Anitha Alexander R.N. - 10/02/2021 11:44 AM CST Question(s) to be answered: Would you be able to fill a one time refill for Advair and Prednisone to [place], [place]? Background: Patient is in [place] visiting her children. She is requesting a one time refill of the noted medications in case she would need them before she returns from her trip. She is taking prednisone 10 mgdaily, as her asthma acted up some while in [place]. Her symptoms have improved since taking thisdosage. Date last seen: 03/07/21 Diagnoses: Asthma Recommendations: Please fill one time refill of medications as you see fit. Medications pended for review. TSU THERAPIST Telephone Encounter - Karina Perdomo - 10/02/2021 11:39 AM CST She is currently in [facility] visiting family. She has an unusual medication question. TSU THERAPIST documented in this encounter Plan of Treatment Upcoming Encounters Date Type Specialty Care Team Description 08/24/2022 Appointment Radiation Oncology Rickey Barry M.D. [address] [place], [place] [phone] (Wo rk) documented as of this encounter Visit Diagnoses Diagnosis Asthma Intrinsic (HCC) - Primary documented in this encounter Care Teams Research Phlebotomist Relationship Specialty Start Date End Date Igor Horn P.A.-C. PCP - General 06/14/18 03/15/22 [address] [place] [address] documented as of this encounter
--- OUTSIDE RECORDS SUMMARY | 2022-08-22 14:45 | XMS_ITS | Encounter Summary ---
:1940 Author Organization [facility] Address [address] [place] [address] Care Team Providers Name Role Phone Igor Horn P.A.-C. Primary Care Provider Reason for Visit Reason Onset Date Comments Testing For Upper Respiratory Virus Symptoms 10/23/2021 Encounter Details Date Type Department Care Team Description 10/23/2021 External Outreach Department of [facility] Kartik Jimenez Contact With And (Suspected) Exposure To COVID-19; Medicine, [facility] John Durant Infection Upper Respiratory Building, in [address] [address] [place], [place] [phone] [address] (Work) [phone] Social History Tobacco Use Types Packs/Day Years [...] Influenza, RSV, and/or Group A Strep testing. ELAIN ENAMELER documented in this encounter Plan of Treatment Upcoming Encounters Date Type Specialty Care Team Description 08/24/2022 Appointment Radiation Oncology Rickey Barry M.D. [address] [place], [place] [phone] (Wo rk) documented as of this encounter Procedures Procedure Name Priority Date/Time Associated Diagnosis Comme nts SARS CORONAVIRUS-2 Routine 10/23/2021 2:57 PM Contact With And Results for this RNA, V PORCELAIN ENAMELER (Suspected) Exposure procedu re are in To COVID-19 the results section. SARS-COV-2, FLU Routine 10/23/2021 2:56 PM Result s for this A+B, AND RSV PCR, V PORCELAIN ENAMELER procedur e are in the results section. RSV RNA PCR DETECT, Routine 10/23/2021 2:56 PM Re sults for this V PORCELAIN ENAMELER procedure are i n the results section. documented in this encounter Results SARS Coronavirus-2 RNA, V Symptomatic (10/23/2021 2:57 PM PORCELAIN ENAMELER) Patholo gist Method Time Signature SARS-CoV-2 Swab, 10/24/2021 MKTO Specimen Nasopharynx 12:21 PM Source PORCELAIN ENAMELER SARS CoV-2 Undetected Undetected 10/24/2021 MKTO RNA, TMA 12:21 PM PORCELAIN ENAMELER Comment: SARS-CoV-2 RNA absent. This result does not rule out COVID-19 in the patient, as the sensitivity of the test depends o n the timing of the specimen collection and the quality of the specim en. Result should be correlated with patient's history and clinical presentat ion. ----ADDITIONAL INFORMATION---- This molecular amplification test was pe rformed using the Aptima SARS-CoV-2 assay ([employer] on the TRAs tem under emergency use authorization (EUA) by the U.S. Food and Drug Administ ration. Fact sheets for this EUA assay can be fo und at the following links: For Healthcare Providers: https://www.Loccie a.gov/media/743239/download For Patients: https://www.fda.gov/media/ 000119/download Specimen Anatomical Collection Method Collection Time Receive d Time (Source) Location / / Volume Laterality Varies 10/23/2021 2:57 PM (Nasopharynx) PORCELAIN ENAMELER 10:30 PM PORCELAIN ENAMELER Kartik Jimenez D.O. LAB MICROBIOLOGY - GENERAL O RDERABLES Performing Organization Address City/State/ZIP Code Phon e Number [facility] [place] [address] [place] [address] System in [place] [address] [place] [address] RSV RNA PCR Detect, V (10/23/2021 2:56 PM PORCELAIN ENAMELER) Analysis Performed At Patho logist Time Signature RSV RNA PCR Undetected Undetected 10/25/2021 SDSC 1:08 PM PORCELAIN ENAMELER Comment: RSV RNA is absent. RSV Specimen Source Nasopharynx 10/25/2021 1:08 PM PORCELAIN ENAMELER [facility] Comment: ----ADDITIONAL INFORMATION---- Testing was performed using the leann In fluenza A/B & RSV UC assay ([employer] on the leann 68 00 / 8800 System, and only the RSV portion of this assay has been validated for testing. This test was developed and its performa nce characteristics determined by [facility] in a manner consistent with CLIA requirements. This test has not been cleared or approved by the U.S. Mark d and Drug Administration. Specimen Anatomical Collection Method Collection Time Receive d Time (Source) Location / / Volume Laterality Varies 10/23/2021 2:56 PM 6:15 PORCELAIN ENAMELER PM PORCELAIN ENAMELER Kartik Jimenez D.O. LAB MICROBIOLOGY - GENERAL O RDERABLES Performing Organization Address City/State/ZIP Code Phon e Number [facility] [address] [place] [address] SUPPORT CENTER [facility] [place] [address] Laboratory Medicine and Pathology [address] [place] (ABNORMAL) SARS-CoV-2, Flu A+B, and RSV PCR, V (10/23/2021 2:56 PM PORCELAIN ENAMELER) [facility] Method Time Signature Influenza A Detected (A) Undetected 10/24/2021 [facility] RNA PCR 11:22 PM PORCELAIN ENAMELER Comment: Influenza A RNA present. Influenza B RNA PCR Undetected Undetected 10/24/2021 11:22 P M PORCELAIN ENAMELER [facility] Comment: Influenza B RNA absent. SARS CoV-2 RNA PCR Undetected Undetected 10/24/2021 11:22 PM PORCELAIN ENAMELER [facility] Comment: SARS-CoV-2 RNA absent. This result does not rule out COVID-19 in the patient, as the sensitivity of the test depends o n the timing of the specimen collection and the quality of the specim en. Result should be correlated with patient's history and clinical presentat ion. SARS-CoV-2 & Flu A/B Specimen Source Nasopharynx 0 10/24/2021 11:22 PM PORCELAIN ENAMELER [facility] Comment: ----ADDITIONAL INFORMATION---- This PCR test is performed using the cob as SARS-CoV-2 & Influenza A/B assay ([employer] on the c bala 6800 / 8800 Systems, and it has received Emergency Use Authorization (EU A) by the U.S. Food and Drug Administration. Fact sheets for this Emergency Use Autho rization (EUA) assay can be found at the following links: https://www.fda.gov/media/806909/downloa d for Healthcare Providers https://www.fda.gov/media/514352/downloa d for Patients Specimen Anatomical Collection Method Collection Time Receive d Time (Source) Location / / Volume Laterality Varies 10/23/2021 2:56 PM 6:15 PORCELAIN ENAMELER PM PORCELAIN ENAMELER Kartik Jimenez D.O. LAB MICROBIOLOGY - GENERAL O RDERABLES Performing Organization Address City/State/ZIP Code Phon e Number [facility] [address] [place], [place] [address] [place], [place] [address]. [place] [address] Laboratory Medicine and Pathology [address] [place] documented in this encounter Visit Diagnoses Diagnosis Contact With And (Suspected) Exposure To COVID-19 Infection Upper Respiratory documented in this encounter Additional Health Concerns Infection Onset Date Last Indicated Resolved Time COVID19 Pending 10/23/2021 10/23/2021 10/24/2021 12:22 PM PORCELAIN ENAMELER documented as of this encounter Care Teams Cross Tie Tram Loader Relationship Specialty Start Date End Date Igor Horn P.A.-C. PCP - General 06/14/18 03/15/[address] [place] [address] documented as of this encounter
--- OUTSIDE RECORDS SUMMARY | 2022-08-22 14:45 | XMS_ITS | Encounter Summary ---
:1940 Author Organization [facility] Address [address] [place] [address] Care Team Providers Name Role Phone Igor Horn P.A.-C. Primary Care Provider [phone] Reason for Visit Reason Comments MELANIA Nurse Line Encounter Details Date Type Department Care Team Description 07/24/2020 Clinical Communication Division of MELANIA [place]abtree Nurse Telma [facility] Internal Cecilia Cordova Medicine, Kishore BYNUM, C.N.P., [facility], in D.N.P. [place], [address] [place], [place] [address] [place] [address] [place], [place] [phone] (Work) [phone] Social History Tobacco Use Types Packs/Day Years [...] and water aren't available, use a hand peoplesoft that contains at least 60% alcohol. Avoid [...] since you were tested. Educational Resource: https://www.cdc.gov/coronavirus/2019-ncov/ lffrifq-caqvtpq-bayw/index.html Education: Patient/caregiver able to teach back Patient agreeable to plan of care: Yes The following references were used: [facility] novel coronavirus (COVID- 19) resources CDC web site https://www.cdc.gov/coronavirus/2019-ncov/summary.html Nursing judgement documented in this encounter Plan of Treatment Upcoming Encounters Date Type Specialty Care Team Description 08/24/2022 Appointment Radiation Oncology Rickey Barry M.D. [address] [place], [place] [phone] (Wo rk) documented as of this encounter Visit Diagnoses Not on filedocumented in this encounter Care Teams Plastic Jig And Fixture Builder Relationship Specialty Start Date End Date Igor Horn P.A.-C. PCP - General 06/14/18 03/15/22 [address] [place] [address] documented as of this encounter
--- OUTSIDE RECORDS SUMMARY | 2022-08-22 14:45 | XMS_ITS | Encounter Summary ---
:1940 Author Organization [facility] Address [address] [place] [address] Care Team Providers Name Role Phone Igor Horn P.A.-C. Primary Care Provider [phone] Encounter Details Date Type Department Care Team Description 05/16/2020 Orders Only Department of Family Tammy Garvin, APR N, Medicine, [facility], C.N. P. in [facility] [address] [place] [address] [place] [address] [phone] Social History Tobacco Use Types Packs/Day Years [...] the More than 4 times [facility] year 03/16/2022 clubs or organizations you [...] Radiation Oncology Rickey Barry M.D. [address] [place], [place] [phone] (Wo rk) documented as of this encounter Visit Diagnoses Not on filedocumented in this encounter Care Teams Small Package And Bundle Sorter Clerk Relationship Specialty Start Date End Date Igor Horn P.A.-C. PCP - General 06/14/18 03/15/22 [address] [place] [phone] documented as of this encounter
--- OUTSIDE RECORDS SUMMARY | 2022-08-22 14:45 | XMS_ITS | Encounter Summary ---
:1940 Author Organization [facility] Address [address] [place] [address] Care Team Providers Name Role Phone Igor Horn P.A.-C. Primary Care Provider [phone] Encounter Details Date Type Department Care Team Description 01/10/2021 Clinical Communication Division of Allergic Volcheck Valdemar Diseases in Geovani Ryder M.D. [address] [place] [address] [phone] Social History Tobacco Use Types Packs/Day Years [...] Radiation Oncology Rickey Barry M.D. [address] [place], [place] [phone] (Wo rk) documented as of this encounter Visit Diagnoses Not on filedocumented in this encounter Care Teams Internal Audit Manager Relationship Specialty Start Date End Date Igor Horn P.A.-C. PCP - General 06/14/18 03/15/22 [address] [place] [address] documented as of this encounter
--- OUTSIDE RECORDS SUMMARY | 2022-08-22 14:45 | XMS_ITS | Encounter Summary ---
:1940 Author Organization [facility] Address [address] [place] [address] Care Team Providers Name Role Phone Igor Horn P.A.-C. Primary Care Provider [phone] Reason for Visit Reason Comments COVID Inquiry Encounter Details Date Type Department Care Team Description 10/23/2021 Clinical Communication Department of MELANIA Byrd [facility] Reyna Costa [facility], in [address] [address] [place], [place] [phone] (Work) [phone] Social History Tobacco Use Types Packs/Day Years [...] have completed or the highest Roland, MEd, CARDIAC MONITOR TECHNICIAN, MARIE) degree you have received? Sex Assigned at Date Recorded Female 06/26/2021 8:35 AM CDT documented as of this encounter Miscellaneous Notes Telephone Encounter - Diana Lawson - 10/23/2021 8:32 AM CST What is the purpose of the call?: Symptomatic (Calling PCP Office) Calling [place] PCP Office What region is the patient calling from? : [place] Have you tested positive for COVID-19 in [...] Because of symptoms, transfer patient to: : [place] COVID Nurse Line (End Screening) Symptom Onset Date of symptom onset: 10/21/21 Plan: Endpoint recommendation: Transferred to Nursing/COVID Line/Care Team *Reminder if sending patient for testing in [facility] or [facility], route encounter to the correct testing pool. RVISOR POWDER AND PRIMER CANNING documented in this encounter Plan of Treatment Upcoming Encounters Date Type Specialty Care Team Description 08/24/2022 Appointment Radiation Oncology Rickey Barry M.D. [address] [place], [place] [phone] (Wo rk) documented as of this encounter Visit Diagnoses Not on filedocumented in this encounter Care Teams Hot Knife Cutter Relationship Specialty Start Date End Date Igor Horn P.A.-C. PCP - General 06/14/18 03/15/22 225 [place] [address] documented as of this encounter
--- OUTSIDE RECORDS SUMMARY | 2022-08-22 14:46 | XMS_ITS | Encounter Summary ---
:1940 Author Organization [facility] Address [address] [place] [address] Care Team Providers Name Role Phone Igor Horn P.A.-C. Primary Care Provider [phone] Reason for Referral Outpatient (Routine) - Closed Specialty Diagnoses / Procedures Referred By Contact Refer red To Contact Family Medicine Igor Horn P. A.-C. [facility] [address] [address] Referral ID Status Reason Start Date Expiration Date Visits Requ ested Visits Authorized [id number] Closed 02/24/2020 02/23/2021 1 1 Reason for Visit Reason Comments Annual Exam Labs done 02-18-20 Outpatient (Routine) - Closed Specialty Diagnoses / Procedures Referred By Contact Refer red To Contact Family Igor Winter P. A.-C. [facility] [address] [phone] Referral ID Status Reason Start Date Expiration Date Visits Requ ested Visits Authorized [id number] Closed 02/12/2019 02/12/2020 1 1 Encounter Details Date Type Department Care Team Description 02/24/2020 Comprehensive Visit Department of Jacey Horn Essential Primary (Primary Dx); Igor Ma, Asthma Intr insic (HCC); [facility], P.A.-C. Bundle Branch Block Left; in [place], [address] Rhinitis Allergic; [facility] [place] Hypothyroidism Primary; [address] [address] Hyperlipidemia; [facility] [place] [phone] Encounter For Screening For Cardiovascular Disorders [phone] (Work) [phone] Social History Tobacco Use Types Packs/Day Years [...] was 25 minutes of which 15 was [id number] coordination of care and counseling Igor Horn P.A.-C. documented in this encounter Plan of Treatment Upcoming Encounters Date Type Specialty Care Team Description 08/24/2022 Appointment Radiation Oncology Rickey Barry M.D. [address] [place], [place] [phone] (Wo rk) Scheduled Referrals Name Type Priority Associated Diagnoses Order S [facility] Family Medicine Outpatient Referral Routine Expec michelle: [...] Organization Address City/State/ZIP Code Phon e Number [facility]- [address] [place] [address] [place] [address] System in [place] [address] (ABNORMAL) Lipid Panel (02/15/2021 8:46 [...] 02/16/20 Venous) CDT 10:39 AM CDT Igor Roethler P.A.-C. LAB BLOOD ADD-ON Performing Organization Address City/State/ZIP Code Phon e Number [facility]- [address] [facility] [place] [address] [facility] [place] [facility] [place] [address] System in [place] [address] Comprehensive Metabolic Panel (02/15/2021 8:46 [...] CDT eGFR-Black/Afric 83 >=60 02/15/2021 [place] an Micronesian mL/min/BSA 11:23 AM CDT Comment: ----ADDITIONAL INFORMATION---- [...] Phon e Number [facility]- [address] [place] [address] [place] [address] System in [place] [address] documented in this encounter Visit Diagnoses Diagnosis Hypertension Essential Primary - Primary Asthma Intrinsic (HCC) Bundle Branch Block Left Rhinitis Allergic Hypothyroidism Primary Hyperlipidemia Encounter For Screening For Cardiovascul ar Disorders documented in this encounter Care Teams Aerial Hurricane Hunter Relationship Specialty Start Date End Date Igor Horn P.A.-C. PCP - General 06/14/18 03/15/22 [address] [place] [phone] documented as of this encounter
--- OUTSIDE RECORDS SUMMARY | 2022-08-22 14:46 | XMS_ITS | Encounter Summary ---
:1940 Author Organization [facility] Address [address] [place] [address] Care Team Providers Name Role Phone Igor Horn P.A.-C. Primary Care Provider Reason for Visit Reason Comments COVMARIE Nurse Line Triage Encounter Details Date Type Department Care Team Description 04/19/2020 [facility]; Medicine, Misha [facility], in [facility] [phone] [place] [facility] [address] [place] [address] Social History Tobacco Use Types Packs/Day Years [...] and water aren't available, use a hand head sawyer automatic that contains at least 60% alcohol. Avoid [...] develop please contact your provider. Educational Resource: https://www.cdc.gov/coronavirus/2019-ncov/hbcupks-tjsjvtb-savd/index.html SELF CARE FOR ALL PATIENTS: Take breaks [...] Yes The following references were used: [facility] novel coronavirus (COVID- 19) resources documented in this encounter Plan of Treatment Upcoming Encounters Date Type Specialty Care Team Description 08/24/2022 Appointment Radiation Oncology Rickey Barry M.D. [address] [place], [place] [phone] (Wo rk) documented as of this encounter Visit Diagnoses Not on filedocumented in this encounter Care Teams Rn Pediatric Icu Relationship Specialty Start Date End Date Igor Horn P.A.-C. PCP - General 06/14/18 03/15/22 [address] [place] [address] documented as of this encounter
--- OUTSIDE RECORDS SUMMARY | 2022-08-22 14:46 | XMS_ITS | Encounter Summary ---
:1940 Author Organization [facility] Address [address] [place] [address] Care Team Providers Name Role Phone Igor Horn P.A.-C. 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 Keratosis Seborrheic Inflamed 200 [facility] 200 [place] [address] [phone] Social History Tobacco Use Types Packs/Day Years [...] Radiation Oncology Rickey Barry M.D. [address] [place], [place] [phone] (Wo rk) documented as of this encounter Visit Diagnoses Diagnosis Keratosis Actinic - Primary Malignant Neoplasm Of Forearm Squamous C ell Carcinoma Right Keratosis Seborrheic Inflamed documented in this encounter Care Teams Equipment Maintenance Technician Relationship Specialty Start Date End Date Igor Horn P.A.-C. PCP - General 06/14/18 03/15/22 [address] [place] [address] documented as of this encounter
--- OUTSIDE RECORDS SUMMARY | 2022-08-22 14:46 | XMS_ITS | Encounter Summary ---
:[address] [facility] Address [address] [place] [address] Care Team Providers Name Role Phone Igor Horn P.A.-C. Primary Care Provider [phone] Encounter Details Date Type Department Care Team Description 02/18/2020 Hospital Encounter Department of Justina Hyperlip idemia; Laboratory Medicine Reyna Costa Hypothyroidism Primary; in [place], [address] [place] [address] Hypertension Essential Primary [place], [place] 300 [facility] [address] [place], [place] [phone] [address] (Work) [phone] Social History Tobacco Use Types Packs/Day Years [...] have completed or the highest Roland, MEd, PUBLIC HEALTH SERVICE OFFICER, MARIE) degree you have received? Sex [...] Radiation Oncology Rickey Barry M.D. [address] [place] [address] [phone] (Wo rk) documented as of this [...] Organization Address City/State/ZIP Code Phon e Number [facility]- [address] [place] [address] [place] [address] System in [place] [address] (ABNORMAL) Lipid Panel (02/18/2020 [...] Organization Address City/State/ZIP Code Phon e Number [facility]- [address] [place] [address] [place] [address] System in [place] [address] Comprehensive Metabolic Panel (02/18/2020 9:05 [...] CDT eGFR-Black/Afric 89 >=60 02/18/2020 OW[place] an [place] mL/min/BSA 11:02 AM CDT Comment: ----ADDITIONAL INFORMATION---- [...] Organization Address City/State/ZIP Code Phon e Number [facility]- [address] [place] [address] [place] [address] System in [place] [address] [place] [address] documented in this encounter Visit Diagnoses Diagnosis Hyperlipidemia Hypothyroidism Primary Hypertension Essential Primary documented in this encounter Care Teams Abrasive Grader Relationship Specialty Start Date End Date Igor Horn P.A.-C. PCP - General 06/14/18 03/15/[address] [place] [address] documented as of this encounter
--- OUTSIDE RECORDS SUMMARY | 2022-08-22 14:46 | XMS_ITS | Encounter Summary ---
:1940 Author Organization [facility] Address [address] [place] [address] Care Team Providers Name Role Phone Igor Horn P.A.-C. Primary Care Provider [phone] Encounter Details Date Type Department Care Team Description 05/12/2020 Orders Only Department of Family Igor Horn Dy suria (Primary Dx) Medicine, [place] [facility], in [address] 300 [facility] [address] [place], [place] [phone] [address] (Work) [phone] Social History Tobacco Use Types Packs/Day Years [...] of the More than 4 times [facility] year 03/16/2022 clubs or organizations you [...] Appointment Radiation Oncology Rickey Barry M.D. [address] [place] [address] [phone] (Wo rk) documented as of this encounter Results (ABNORMAL) Bacterial Culture, Aerobic + Susc, Urine (05/12/2020 11:31 AM CDT) [facility] gist Method Time Signature Urine Culture [...] Organization Address City/State/ZIP Code Phon e Number [facility]- [address] [place] [address] [place] [address] [address] (ABNORMAL) Urinalysis with Microscopic if Indicated [...] 8.0 05/12/2020 11:41 AM CDT FB60 Specific [place] 1.020 1.001 - 1.035 05/12/2020 11:41 AM CDT FB60 Urobilinogen 0.2 0.2 - 1.0 mg/dL 05/12/2020 11:41 AM C DT FB60 Specimen Anatomical Collection Method Collection Time Receive d Time (Source) Location / / Volume Laterality Urine (Urine, 05/12/2020 11:31 05/12/2020 Clean Catch) AM CDT 11:37 AM CDT Igor Horn P.A.-C. LAB URINE ORDERABLES Performing Organization Address City/State/ZIP Code Phon e Number [address] [place] [address] [facility] [place] [address] [address] documented in this encounter Visit Diagnoses Diagnosis Dysuria - Primary documented in this encounter Care Teams Transit Worker Relationship Specialty Start Date End Date Igor Horn P.A.-C. PCP - General 06/14/18 03/15/[address] [place] [phone] documented as of this encounter
--- OUTSIDE RECORDS SUMMARY | 2022-08-22 14:46 | XMS_ITS | Encounter Summary ---
:1940 Author Organization [facility] Address [address] [place] [address] Care Team Providers Name Role Phone Igor Horn P.A.-C. Primary Care Provider [phone] Reason for Visit Reason Comments Communication symptoms Encounter Details Date Type Department Care Team Description 05/10/2020 Clinical Department of Steve Horn Family MedicineIgor, [facility]symptoms[facility] [address] 300 [facility] [address] [place], [place] [phone] [address] (Work) [phone] Social History Tobacco Use Types Packs/Day Years [...] this encounter Miscellaneous Notes Telephone Encounter - Rohna Chatman R.N. - 05/10/2020 10:24 AM CDT [...] you would like a UC. Uses Olivia Arbon Current Can Nursing/Provider leave a detailed message: Did the patient refuse triage through Nurse line? (for symptom based concerns): Action Needed: please clal Name of Medication (if relevant): documented in this encounter Plan of Treatment Upcoming Encounters Date Type Specialty Care Team Description 08/24/2022 Appointment Radiation Oncology Rickey Barry M.D. [address] [place], [place] [address] [phone] (Wo rk) documented as of this encounter Visit Diagnoses Not on filedocumented in this encounter Care Teams Mail Clerks Supervisor Relationship Specialty Start Date End Date Igor Horn P.A.-C. PCP - General 06/14/18 03/15/22 225 [place] [address] documented as of this encounter
--- OUTSIDE RECORDS SUMMARY | 2022-08-22 14:46 | XMS_ITS | Encounter Summary ---
:1940 Author Organization [facility] Address [address] [place] [address] Care Team Providers Name Role Phone Igor Horn P.A.-C. Primary Care Provider [phone] Reason for Referral Outpatient (Routine) - Closed Specialty Diagnoses / Procedures Referred By Contact Refer red To Contact Diagnoses Screening Mammogram Breast Cancer Igor Horn P.A.-C. [facility] Region Procedures BI Breast Screening Bilateral with Tomosynthesis [address] [place] [address] Referral ID Status Reason Start Date Expiration Date Visits Requ ested Visits Authorized [id number] Closed 03/14/2020 03/14/2021 1 1 Reason for Visit Outpatient (Routine) - Closed Specialty Diagnoses / Procedures Referred By Contact Refer red To Contact Diagnoses Screening Mammogram Breast Cancer Igor Horn P.A.-C. [facility] Region Procedures BI Breast Screening Bilateral with Tomosynthesis [address] [place] [address] Referral ID Status Reason Start Date Expiration Date Visits Requ ested Visits Authorized [id number] Closed 03/14/2020 03/14/2021 1 1 Encounter Details Date Type Department Care Team Description 04/11/2020 Hospital Encounter Department of Merlyn Horn Mammogram Radiology in Shivam Costa Breast Cancer [place], [place] [address] [facility] [address] [place], [place] JOHN FARRAR [phone] Social History Tobacco Use Types Packs/Day [...] Oncology Rickey Barry M.D. [address] [place] [address] [phone] (Wo rk) documented as of this [...] Imaging RST LOS, Breast Imaging ARZ LOS, [place] st Bilateral Mammography Imaging FLA LOS Specimen (Source) Anatomical Collection Method Collection Time Re ceived Time Location / / Volume Laterality 04/11/2020 1:52 PM CDT Impressions 04/11/2020 1:53 PM CDT Negative. RECOMMENDATION: ??Annual Screening Mammo gram ASSESSMENT: ??BI-RADS: 1: Negative. Narrative 04/11/2020 1:53 PM CDT EXAM: ??BI BREAST SCREENING BILATERAL WITH TOMOSYNTHESIS Current study was evaluated with a [employer]u ter Aided Detection (CAD) system. INDICATION: ??Screening [...] TOMOSYNTHESIS Current study was evaluated with a [employer]u [employer] Aided Detection (CAD) system. INDICATION: Screening mammogram. [...] Cancer documented in this encounter Care Teams Looping Machine Operator Relationship Specialty Start Date End Date Igor Horn P.A.-C. PCP - General 06/14/18 03/15/22 [address] [place] [address] documented as of this encounter
--- OUTSIDE RECORDS SUMMARY | 2022-08-22 14:46 | XMS_ITS | Encounter Summary ---
:1940 Author Organization [facility] Address [address] [place] [address] Care Team Providers Name Role Phone Igor Horn P.A.-C. Primary Care Provider [phone] Reason for Visit Reason Comments Med Refill Encounter Details Date Type Department Care Team Description 02/09/2020 Refill Department of Family Medicine Igor Rodríguez P.A.-C. Med Refill in [place], [place] [address] [facility] 225 [place] [address] [place] [address] [phone] Social History Tobacco Use Types Packs/Day Years [...] meetings of the More than 4 times [facility] year 03/16/2022 clubs or organizations you [...] have completed or the highest Roland, MEd, AIRPORT OPERATIONS SPECIALIST, MARIE) degree you have received? Sex Assigned at Date Recorded Female 06/26/2021 8:35 AM CDT documented as of this encounter Plan of Treatment Upcoming Encounters Date Type Specialty Care Team Description 08/24/2022 Appointment Radiation Oncology Rickey Barry M.D. [address] [place], [place] [address] [phone] (Wo rk) documented as of this encounter Visit Diagnoses Not on filedocumented in this encounter Care Teams Refrigeration Service Inspector Relationship Specialty Start Date End Date Igor Horn P.A.-C. PCP - General 06/14/18 03/15/22 225 [place] [phone] documented as of this encounter
--- OUTSIDE RECORDS SUMMARY | 2022-08-22 14:46 | XMS_ITS | Encounter Summary ---
:1940 Author Organization [facility] Address [address] [place] [address] Care Team Providers Name Role Phone Igor Horn P.A.-C. Primary Care Provider [phone] Encounter Details Date Type Department Care Team Description 05/12/2020 Orders Only Department of Family Igor Horn, In [facility] Urinary Medicine, [place] [facility], in [place], [address] [place] [address] 300 [facility] [address] [place], [place] [phone] [address] (Work) [phone] Social History Tobacco Use Types Packs/Day Years [...] Radiation Oncology Rickey Barry M.D. [address] [place], [place] [address] [phone] (Wo rk) documented as of this encounter Visit Diagnoses Diagnosis Infection Urinary Tract documented in this encounter Care Teams Senior Enterprise Architect Relationship Specialty Start Date End Date Igor Horn P.A.-C. PCP - General 06/14/18 03/15/22 225 [place] [address] documented as of this encounter
--- OUTSIDE RECORDS SUMMARY | 2022-08-22 14:46 | XMS_ITS | Encounter Summary ---
:1940 Author Organization [facility] Address [address] [place] [address] Care Team Providers Name Role Phone Igor Horn P.A.-C. Primary Care Provider [phone] Reason for Visit Reason Comments COVID Inquiry Encounter Details Date Type Department Care Team Description 03/22/2020 Clinical Communication Department of Mervat GuyID Inquiry Dermatology in A, BIKE DESIGNER, C.N.P., [place], [place] D.N.P. [address] [place] [address] [address] [place] [address] [phone] Social History Tobacco Use Types Packs/Day Years [...] meetings of the More than 4 times [facility] year 03/16/2022 clubs or organizations you [...] encounter Miscellaneous Notes Telephone Encounter - Tuyet Chariez Angélica - 03/22/2020 12:52 PM CDT (Note for [facility] locations only: If the patient [...] Oncology Rickey Barry M.D. [address] [place], [place] [address] [phone] (Wo rk) documented as of this encounter Visit Diagnoses Not on filedocumented in this encounter Care Teams Marketing Database Coordinator Relationship Specialty Start Date End Date Igor Horn P.A.-C. PCP - General 06/14/18 03/15/22 225 [place] [address] documented as of this encounter
--- OUTSIDE RECORDS SUMMARY | 2022-08-22 14:46 | XMS_ITS | Encounter Summary ---
:1940 Author Organization [facility] Address [address] [place] [address] Care Team Providers Name Role Phone Igor Horn P.A.-C. Primary Care Provider [phone] Encounter Details Date Type Department Care Team Description 12/24/2019 Refill Department of Family Medicine, Igor Ross P.A.-C. [facility], in [address] [place] [address] [place] [address] [place] [address] [phone] Social History Tobacco Use Types Packs/Day Years [...] have completed or the highest Roland, MEd, GAME PROGRAMER, MARIE) degree you have received? Sex Assigned at Date Recorded Female 06/26/2021 8:35 AM CDT documented as of this encounter Plan of Treatment Upcoming Encounters Date Type Specialty Care Team Description 08/24/2022 Appointment Radiation Oncology Rickey Barry M.D. [address] [place], [place] [address] [phone] (Wo rk) documented as of this encounter Visit Diagnoses Not on filedocumented in this encounter Care Teams Italian Teacher Relationship Specialty Start Date End Date Igor Horn P.A.-C. PCP - General 06/14/18 03/15/22 225 [place] [phone] documented as of this encounter
--- OUTSIDE RECORDS SUMMARY | 2022-08-22 14:46 | XMS_ITS | Encounter Summary ---
:1940 Author Organization [facility] Address [address] [place] [address] Care Team Providers Name Role Phone Igor Horn P.A.-C. Primary Care Provider [phone] Reason for Visit Reason Comments Medication Problem Encounter Details Date Type Department Care Team Description 04/19/2020 Clinical Communication Department of Ranulfo Cronin Family Medicine, [facility]ud[facility] in [address] [address] [place], [place] [phone] (Work) [phone] Social History Tobacco Use Types Packs/Day Years [...] to get it before the pharmacy closes. Front Worker called and spoke with pharmacist who stated there was a flag on the antibiotic and patient's lisinopril for concern of increasing potassium levels. Front Worker spoke with patient's PCP regarding the above concern who stated that since the patient is only taking the antibiotic for 3 days, this should not be of concern. Front Worker notified both pharmacist and patient of PCP's response. PLAN Disposition/Recommendation: Patient to potato picker Bactrim that was previously prescribed Information/Education: patient/caller able to teach back Caller agreeable to plan of care: yes The following references were used: provider Igor Horn Telephone Encounter - Karla Martinez - 04/19/2020 3:17 PM CDT Reason for Communication: Lashonda from [facility] calling, rx for Bactrim has drug [...] Radiation Oncology Rickey Barry M.D. [address] [place], [place] [address] [phone] (Wo rk) documented as of this encounter Visit Diagnoses Not on filedocumented in this encounter Care Teams Pool Nurse Relationship Specialty Start Date End Date Igor Horn P.A.-C. PCP - General 06/14/18 03/15/22 [address] [place] [phone] documented as of this encounter
--- OUTSIDE RECORDS SUMMARY | 2022-08-22 14:46 | XMS_ITS | Encounter Summary ---
:1940 Author Organization [facility] Address [address] [place] [address] Care Team Providers Name Role Phone Igor Horn P.A.-C. Primary Care Provider [phone] Encounter Details Date Type Department Care Team Description 05/10/2020 Nurse Triage Department of [facility] Rodriguez Mcneil [facility], [facility], [address] [place] [address] [place] [address] [place] [address] Social History Tobacco Use Types Packs/Day Years [...] Radiation Oncology Rickey Barry M.D. [address] [place], [place] [address] [phone] (Wo rk) documented as of this encounter Visit Diagnoses Not on filedocumented in this encounter Care Teams Semiautomatic Stitcher Operator Relationship Specialty Start Date End Date Igor Horn P.A.-C. PCP - General 06/14/18 03/15/22 225 [place] [address] documented as of this encounter
--- OUTSIDE RECORDS SUMMARY | 2022-08-22 14:46 | XMS_ITS | Encounter Summary ---
:1940 Author Organization [facility] Address [address] [place] [address] Care Team Providers Name Role Phone Igor Horn P.A.-C. Primary Care Provider [phone] Reason for Visit Reason Comments Asthma plan Encounter Details Date Type Department Care Team Description 01/08/2020 Clinical Communication Division of Allergic Valdemar Ma Asthma plan Diseases in [place] [address] [address] [facility] [address] [place] [address] [phone] Social History Tobacco Use Types Packs/Day Years [...] have completed or the highest Roland, MEd, PREMIUM REPRESENTATIVE, MARIE) degree you have received? Sex [...] that she is 40 minutes away from [place] so if she is unable to drive [...] since she doesn't have a provider in [place] if she should take her Prednisone if [...] 01/08/2020 2:09 PM CDT She is in [place]. She asks how she should take her meds if she gets COVID-19. documented in this encounter Plan of Treatment Upcoming Encounters Date Type Specialty Care Team Description 08/24/2022 Appointment Radiation Oncology Rickey Barry M.D. [address] [place], [place] [address] [phone] (Wo rk) documented as of this encounter Visit Diagnoses Not on filedocumented in this encounter Care Teams Hooker Laster Relationship Specialty Start Date End Date Igor Horn P.A.-C. PCP - General 06/14/18 03/15/[address] [place], [place] [address], [place] [address] documented as of this encounter
--- OUTSIDE RECORDS SUMMARY | 2022-08-22 14:46 | XMS_ITS | Encounter Summary ---
:1940 Author Organization [facility] Address [address] [place] [address] Care Team Providers Name Role Phone Igor Horn P.A.-C. Primary Care Provider [phone] Encounter Details Date Type Department Care Team Description 04/19/2020 Hospital Encounter Department of Laboratory Anirudh Cronin I., Dysuria Medicine in Roque Stone M.D. [place] 300 [facility] 300 [place] [address] [phone] (Wo rk) Social History Tobacco Use Types [...] meetings of the More than 4 times [facility] year 03/16/2022 clubs or organizations you [...] to patient: Not applicable Call back number: [phone] Communications Equipment Installer: Not applicable Information provided: Patient notified of results and Dr. Cronin's recommendations. Patient will bean picker machine operator and begin Bactrim. surgical appliances salesperson/patient received and understood education/information provided: Yes surgical appliances salesperson/patient agreed to the Plan of Care: [...] Oncology Rickey Barry M.D. [address] [place] [phone] (Wo rk) documented as of this encounter Procedures Procedure Name Priority Date/Time Associated Comments Diagnosis URINALYSIS WITH Routine 04/19/2020 1:52 PM Dysuria Result s for this MICROSCOPIC IF CDT procedure are in INDICATED, U the results section. NC URINALYSIS AUTO WO Routine 04/19/2020 1:52 PM [...] City/State/ZIP Code Phon e Number [facility]- [address] [place] [address] [facility] [place] [address] System in [place] [address] (ABNORMAL) Urinalysis with Microscopic [...] 8.0 04/19/2020 2:09 PM CDT FB60 Specific [place] 1.020 1.001 - 1.035 04/19/2020 2:09 PM [...] City/State/ZIP Code Phon e Number [facility]- [facility] [place] [address] [facility] [place] [address] System in [place] [address] documented in this encounter Visit Diagnoses Diagnosis Dysuria documented in this encounter Care Teams Fox Farmer Relationship Specialty Start Date End Date Igor Horn P.A.-C. PCP - General 06/14/18 03/15/22 225 [place] [address] documented as of this encounter
--- OUTSIDE RECORDS SUMMARY | 2022-08-22 14:46 | XMS_ITS | Encounter Summary ---
:1940 Author Organization [facility] Address [address] [place] [address] Care Team Providers Name Role Phone Igor Horn P.A.-C. Primary Care Provider [phone] Reason for Visit Reason Comments COVID Nurse Line Encounter Details Date Type Department Care Team Description 02/15/2020 Clinical Communication Department of LUIS Casas Nurse Line Dermatology in Provider [place], [place] [address] [place] [address] Social History Tobacco Use Types Packs/Day Years [...] have completed or the highest Roland, MEd, STRONG NITRIC OPERATOR, AMRIE) degree you have received? Sex Assigned at [...] Appointment Radiation Oncology Rickey Barry M.D. [address] [place] [phone] (Wo rk) documented as of this encounter Visit Diagnoses Not on filedocumented in this encounter Care Teams Cooperative Education Coordinator Relationship Specialty Start Date End Date Igor Honr P.A.-C. PCP - General 06/14/18 03/15/22 225 [place] [address] documented as of this encounter
--- OUTSIDE RECORDS SUMMARY | 2022-08-22 14:46 | XMS_ITS | Encounter Summary ---
:1940 Author Organization [facility] Address [address] [place] [address] Care Team Providers Name Role Phone Igor Horn P.A.-C. Primary Care Provider [phone] Encounter Details Date Type Department Care Team Description 04/19/2020 Clinical Communication Department of Igor Byrd, Medicine, [facility], in [address] [address] [place], [place] [phone] [phone] (Work) [phone] Social History Tobacco Use Types Packs/Day Years [...] was provided: Anirudh Cronin M.B.B.S., Cristiana You; [facility] Nurse 19 minutes ago (10:11 AM) Urinalysis [...] Radiation Oncology Rickey Barry M.D. [address] [place] [address] [phone] (Wo rk) documented as of this [...] 8.0 04/19/2020 2:09 PM CDT FB60 Specific [place] 1.020 1.001 - 1.035 04/19/2020 2:09 PM CDT FB60 Urobilinogen 0.2 0.2 - 1.0 mg/dL 04/19/2020 2:09 PM CD T FB60 Specimen Anatomical Collection Method Collection Time Receive d Time (Source) Location / / Volume Laterality Urine (Urine, 04/19/2020 1:52 PM 04/19/20 2:01 Clean Catch) CDT PM CDT Anirudh Nevarez M.D. LAB URINE ORDERABLES Performing Organization Address City/State/ZIP Code Phon e Number [facility]- [address] [place] [address] [facility] [address] [place] [address] System in [place] [address] documented in this encounter Visit Diagnoses Diagnosis Dysuria - Primary documented in this encounter Care Teams Senior Mobile Web Developer Relationship Specialty Start Date End Date Igor Horn P.A.-C. PCP - General 06/14/18 03/15/22 225 [place] [address] documented as of this encounter
--- OUTSIDE RECORDS SUMMARY | 2022-08-22 14:46 | XMS_ITS | Encounter Summary ---
:1940 Author Organization [facility] Address [address] [place] [address] Care Team Providers Name Role Phone Igor Horn P.A.-C. Primary Care Provider [phone] Encounter Details Date Type Department Care Team Description 04/19/2020 Orders Only Department of Family Anirudh Cronin Urinary Tract Medicine, [facility] [place], (Primar y Dx) Clinic, in [place] 300 [facility] 300 [place] [phone] Social History Tobacco Use Types Packs/Day Years [...] Radiation Oncology Rickey Barry M.D. [address] [place], [place] [phone] (Wo rk) documented as of this encounter Visit Diagnoses Diagnosis Infection Urinary Tract - Primary documented in this encounter Care Teams Upholsterer Helper Relationship Specialty Start Date End Date Igor Horn P.A.-C. PCP - General 06/14/18 03/15/22 225 [place] [address] documented as of this encounter
--- OUTSIDE RECORDS SUMMARY | 2022-08-22 14:46 | XMS_ITS | Encounter Summary ---
:1940 Author Organization [facility] Address [address] [place] [address] Care Team Providers Name Role Phone Igor Horn P.A.-C. Primary Care Provider [phone] Encounter Details Date Type Department Care Team Description 10/16/2019 Orders Only Department of Family Demian Page R.N. Medicine, [facility], [address] [place] [address] [place] [address] [place] [address] Social History Tobacco Use [...] have completed or the highest Roland, Katie, LACQUER SHADER, MARIE) degree you have received? Sex Assigned at Date Recorded Female 06/26/2021 8:35 AM CDT documented as of this encounter Plan of Treatment Upcoming Encounters Date Type Specialty Care Team Description 08/24/2022 Appointment Radiation Oncology Rickey Barry M.D. [address] [place], [place] [phone] (Wo rk) documented as of this encounter Visit Diagnoses Not on filedocumented in this encounter Care Teams Circus Performer Relationship Specialty Start Date End Date Igor Horn P.A.-C. PCP - General 06/14/18 03/15/22 [address] [place] [address] documented as of this encounter
--- OUTSIDE RECORDS SUMMARY | 2022-08-22 14:46 | XMS_ITS | Encounter Summary ---
:1940 Author Organization [facility] Address [address] [place] [address] Care Team Providers Name Role Phone Igor Horn P.A.-C. Primary Care Provider Encounter Details Date Type Department Care Team Description 03/14/2020 Clinical Communication Department of [facility] Igor Horn, Medicine, [facility], in [address] [address] [place], [place] [phone] [address] (Work) [phone] Social History Tobacco Use Types Packs/Day Years [...] no Route reply to: Scheduling Contact Number: [phone] documented in this encounter Plan of Treatment Upcoming Encounters Date Type Specialty Care Team Description 08/24/2022 Appointment Radiation Oncology Rickey Barry M.D. [address] [place], [place] [phone] (Wo rk) documented as of this encounter Visit Diagnoses Not on filedocumented in this encounter Care Teams Optical Goods Drilling Machine Operator Relationship Specialty Start Date End Date Igor Horn P.A.-C. PCP - General 06/14/18 03/15/22 [address] [place] [address] documented as of this encounter
--- OUTSIDE RECORDS SUMMARY | 2022-08-22 14:46 | XMS_ITS | Encounter Summary ---
:1940 Author Organization [facility] Address [address] [place] [address] Care Team Providers Name Role Phone Igor Horn P.A.-C. Primary Care Provider [phone] Encounter Details Date Type Department Care Team Description 05/12/2020 Hospital Encounter Department of Laboratory Igor Horn, Dysuria Medicine in Shivam Stone [place] 225 [facility] 300 [place] [address] [phone] (Wo rk) Social History Tobacco Use Types [...] patient: Not applicable Call back number: [phone] Millinery Teacher: Not applicable Information provided: Patient notified of results and recommendations as listed above by TORIE De Oliveira. Patient was instructed to pickling solution maker and start the Bactrim. salesperson books/patient received and understood education/information provided: Yes salesperson books/patient agreed to the Plan of Care: Yes documented in this encounter Plan of Treatment Upcoming Encounters Date Type Specialty Care Team Description 08/24/2022 Appointment Radiation Oncology Rickey Barry M.D. [address] [place] [phone] (Wo rk) documented as of this encounter Procedures Procedure Name Priority Date/Time Associated Comments Diagnosis URINALYSIS WITH Routine 05/12/2020 11:31 Dysuria Results for this MICROSCOPIC IF AM CDT procedure are in INDICATED, U the results section. ME URINALYSIS AUTO WO Routine 05/12/2020 11:31 Re [...] Organization Address City/State/ZIP Code Phon e Number [facility]- [address] [place] [address] [facility] [place] [address] System in [place] [address] (ABNORMAL) Bacterial Culture, Aerobic + [...] Organization Address City/State/ZIP Code Phon e Number [facility]- [address] [place] [address] [place] [address] System [address] (ABNORMAL) Urinalysis with Microscopic if Indicated [...] 8.0 05/12/2020 11:41 AM CDT [facility] Specific [place] 1.020 1.001 - 1.035 05/12/2020 11:41 AM CDT FB60 Urobilinogen 0.2 0.2 - 1.0 mg/dL 05/12/2020 11:41 AM C DT [facility]60 Specimen Anatomical Collection Method Collection Time Receive d Time (Source) Location / / Volume Laterality Urine (Urine, 05/12/2020 11:31 05/12/2020 Clean Catch) AM CDT 11:37 AM CDT Igor Horn P.A.-C. LAB URINE ORDERABLES Performing Organization Address City/State/ZIP Code Phon e Number [place] [facility] [address] [place] [address] [facility] [place] [address] [address] documented in this encounter Visit Diagnoses Diagnosis Dysuria documented in this encounter Care Teams Butadiene Convertor Operator Relationship Specialty Start Date End Date Igor Horn P.A.-C. PCP - General 06/14/18 03/15/22 225 [facility] [place] [phone] documented as of this encounter
--- OUTSIDE RECORDS SUMMARY | 2022-08-22 14:47 | XMS_ITS | Encounter Summary ---
:1940 Author Organization [facility] Address [address] [place] [address] Care Team Providers Name Role Phone Igor Horn P.A.-C. Primary Care Provider [phone] Encounter Details Date Type Department Care Team Description 12/25/2018 Clinical Communication Department of [facility] Fide Durant, Internal Medicine in [place], [place] [address] [address] [phone] Social History Tobacco Use Types Packs/Day Years [...] Radiation Oncology Rickey Barry M.D. [address] [place], [place] [phone] (Wo rk) documented as of this encounter Visit Diagnoses Not on filedocumented in this encounter Care Teams Ore Washer Relationship Specialty Start Date End Date Igor Horn P.A.-C. PCP - General 06/14/18 03/15/22 225 [place] [address] documented as of this encounter
--- OUTSIDE RECORDS SUMMARY | 2022-08-22 14:47 | XMS_ITS | Encounter Summary ---
:1940 Author Organization [facility] Address [address] [place] [address] Care Team Providers Name Role Phone Igor Horn P.A.-C. Primary Care Provider [phone] Reason for Visit Reason Comments Pre-op Exam Preop for right TKA. [facility]. with Dr. Nickerson on 05/05/19. Outpatient (Routine) - Closed Specialty Diagnoses / Procedures Referred By Contact Refer red To Contact General Surgery Diagnoses General Medical Examination Adult Igor Horn, [facility] P.A.-C. [address] [place] [address] Referral ID Status Reason Start Date Expiration Date Visits Requ ested Visits Authorized [id number] Closed 04/06/2019 04/05/2020 1 1 Encounter Details Date Type Department Care Team Description 04/30/2019 Office Visit Department of Family Igor Horn Pa in Knee Right (Primary Dx); Medicine in [place], [place]. General Medical Examination Adult; [place] 225 [facility] Branch Block Left [address] [place] [address] Social History Tobacco Use Types [...] 03/16/2022 organizations such as baptism groups, unions, fraAppMesh or athletic groups, or school groups? How [...] have completed or the highest Roland, MEd, DISPATCHER SHIP PILOT, MARIE) degree you have received? Sex Assigned [...] evaluation of Pre-op Exam (Preopfor right TKA. [facility]. with Dr. Nickerson on 05/05/19.). HISTORY [...] Appointment Radiation Oncology Rickey Barry M.D. [address] [place] [phone] (Wo rk) documented as of [...] ngs. IMPRESSION: 1. No acute findings. Igor Serrato.-C. IMG DIAGNOSTIC IMAGING [facility] ECG 12 Lead (04/30/2019 9:47 AM CDT) P athologist Signature Ventricular Rate 63 BPM MUSE ECG/Min SC Interval 180 ms MUSE QRSD Interval 154 ms MUSE QT Interval 448 ms MUSE QTC Interval 458 ms MUSE P Lavina 60 degrees MUSE R Lavina -42 degrees MUSE T Wave Lavina 81 degrees MUSE Specimen Anatomical Collection Method [...] has changed Reviewed by KRISHNA Meneses Igor Patel.Yady.-C. ECG ORDERABLES Performing Organization Address City/State/ZIP Code Phon e Number MUSE MUSE NA CBC with Differential, Blood (04/30/2019 9:42 AM CDT) athologist Signature Hemoglobin 12.0 11.6 - 04/30/2019 [...] City/State/ZIP Code Phon e Number [facility] [address] [place] [address] LAB Basic Metabolic Panel (04/30/2019 9:42 AM [...] >=60 04/30/2019 Black/ mL/min/BSA 4:08 PM CDT Rwandan Comment: ----ADDITIONAL INFORMATION---- Estimated GFR calculated using [...] City/State/ZIP Code Phon e Number [facility] [address] [place] [address] LAB documented in this encounter Visit Diagnoses Diagnosis Pain Knee Right - Primary General Medical Examination Adult Bundle Branch Block Left General Medical Examination Adult Pain Knee Right documented in this encounter Care Teams Asset Protection Manager Relationship Specialty Start Date End Date Igor Horn P.A.-C. PCP - General 06/14/18 03/15/22 [address] [place] [address] documented as of this encounter
--- OUTSIDE RECORDS SUMMARY | 2022-08-22 14:47 | XMS_ITS | Encounter Summary ---
:1940 Author Organization [facility] Address [address] [place] [address] Care Team Providers Name Role Phone Igor Horn P.A.-C. Primary Care Provider [phone] Reason for Visit Reason Onset Date Comments Recent asthma flare 10/27/2018 Encounter Details Date Type Department Care Team Description 10/27/2018 Clinical Communication Division of Selena Ma asthma flare Allergic Diseases Valdemar Olivo M.D. in [address] [place] [address] [place], [place] [phone] [phone] (Work) [phone] Social History Tobacco Use Types Packs/Day Years [...] of the More than 4 times [facility] year 03/16/2022 clubs or [...] Valdemar Ma M.D. - 10/28/2018 3:14 PM SED HIGH SCHOOL TEACHER Note reviewed. Recommend continuing the prednisone 10mg day for two more days. If continuing to do well can stop then. Would keep the Advair at 1 puff twice daily for two weeks. Thanks, Dr. Ma HIGH SCHOOL TEACHER Telephone Encounter - Alpa De RBenedict - 10/27/2018 10:52 AM SED HIGH SCHOOL TEACHER HISTORY OF PRESENT ILLNESS A phone call was returned to Ms. Cedeño who is currently wintering in [place], [place]. [facility] one week ago she noted some [...] during the extended stay. She returned to [place] on October 05, 2018. She is seeking recommendationsfrom Dr. Ma. She is aware that he is not in the [facility]. The following portions of the patient's history were reviewed and updated as appropriate: current medications, medical history and problem list. ASSESSMENT / PLAN Patient information will be forwarded to Dr. Ma for review. Disposition/Recommendation: provider notified and awaiting provider recommendations Education: patient/caller able to teach back Caller agreeable to plan of care: yes The following references were used: nursing clinical judgement HIGH SCHOOL TEACHER Telephone Encounter - Karina Perdomo - 10/27/2018 10:41 AM CST She had an asthma flare but [place]. She wants to know what to do going forward. HIGH SCHOOL TEACHER documented in this encounter Plan of Treatment Upcoming Encounters Date Type Specialty Care Team Description 08/24/2022 Appointment Radiation Oncology Rickey Barry M.D. [address] [place], [place] [phone] (Wo rk) documented as of this encounter Visit Diagnoses Not on filedocumented in this encounter Care Teams Stereo Plotter Operator Relationship Specialty Start Date End Date Igor Horn P.A.-C. PCP - General 06/14/18 03/15/22 [address] [place] [address] documented as of this encounter
--- OUTSIDE RECORDS SUMMARY | 2022-08-22 14:47 | XMS_ITS | Encounter Summary ---
:1940 Author Organization [facility] Address [address] [place] [address] Care Team Providers Name Role Phone Igor Horn P.A.-C. Primary Care Provider [phone] Encounter Details Date Type Department Care Team Description 04/07/2019 Orders Only Department of Family Tammy Garvin, APR N, Medicine, [facility], C.N. P. in [place] [facility] [address] [place] [phone] [place] [address] [phone] Social History Tobacco Use Types Packs/Day Years [...] have completed or the highest Roland, MEd, SLOPE HOIST OPERATOR, MARIE) degree you have received? Sex Assigned at Date Recorded Female 06/26/2021 8:35 AM CDT documented as of this encounter Plan of Treatment Upcoming Encounters Date Type Specialty Care Team Description 08/24/2022 Appointment Radiation Oncology Rickey Barry M.D. [address] [place], [place] [phone] (Wo rk) documented as of this encounter Visit Diagnoses Not on filedocumented in this encounter Care Teams Engineering Recruiter Relationship Specialty Start Date End Date Igor Horn P.A.-C. PCP - General 06/14/18 03/15/22 [address] [place] [phone] documented as of this encounter
--- OUTSIDE RECORDS SUMMARY | 2022-08-22 14:47 | XMS_ITS | Encounter Summary ---
:1940 Author Organization [facility] Address [address] [place] [address] Care Team Providers Name Role Phone Igor Horn P.A.-C. Primary Care Provider [phone] Encounter Details Date Type Department Care Team Description 12/25/2018 Clinical Communication Department of [facility] Fide Durant, Internal Medicine in [place], [place] [address] [address] [phone] Social History Tobacco Use Types Packs/Day Years [...] Radiation Oncology Rickey Barry M.D. [address] [place], [place] [phone] (Wo rk) documented as of this encounter Visit Diagnoses Not on filedocumented in this encounter Care Teams Animal Handler Relationship Specialty Start Date End Date Igor Horn P.A.-C. PCP - General 06/14/18 03/15/22 225 [place] [address] documented as of this encounter
--- OUTSIDE RECORDS SUMMARY | 2022-08-22 14:47 | XMS_ITS | Encounter Summary ---
:1940 Author Organization [facility] Address [address] [place] [address] Care Team Providers Name Role Phone Igor Horn P.A.-C. 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 [facility] [address] [place] [address] Referral ID Status Reason Start Date Expiration Date Visits V isits Requested Authorized [id number] Closed Specialty 03/23/2019 03/22/2020 1 1 Services Required Encounter Details Date Type Department Care Team Description 04/07/2019 Comprehensive Visit Department of Roro Mayes, Dermato heliosis (Primary Dx); Dermatology in M.D. Malignant Neoplasm Of Forearm Squamous C ell Carcinoma Right; [place], [address] Cancer Skin Per kassie History; [address] Keratosis Seborrheic Inflamed; [address] [place], [place] Keratosis Seborrheic; [place] [address] [place]; [phone] Angiomadeline Salmeron Social History Tobacco Use Types [...] have completed or the highest Roland, MEd, SVP OPERATIONS, MARIE) degree you have received? Sex Assigned at Date Recorded Female 06/26/2021 8:35 AM CDT documented as of this encounter Consult Notes Roro Mayes M.D. - 04/07/2019 3:40 PM CDT DERMATOLOGY CONSULT Supervised by: Dr. Dawna Quezada ([phone]). Patient seen and discussed with supervising international travel consultant, Dr. Quezada, who evaluated the patient [...] Radiation Oncology Rickey Barry M.D. [address] [place], [place] [phone] (Wo rk) Scheduled Referrals [...] Salmeron documented in this encounter Care Teams Hardware Engineering Manager Relationship Specialty Start Date End Date Igor Horn P.A.-C. PCP - General 06/14/18 03/15/22 [address] [place] [address] documented as of this encounter
--- OUTSIDE RECORDS SUMMARY | 2022-08-22 14:47 | XMS_ITS | Encounter Summary ---
:1940 Author Organization [facility] Address [address] [place] [address] Care Team Providers Name Role Phone Igor Horn P.A.-C. Primary Care Provider [phone] Reason for Referral Outpatient (Routine) - Closed Specialty Diagnoses / Procedures Referred By Contact Refer red To Contact Family Medicine Igor Horn P. A.-C. [facility] [address] [address] Referral ID Status Reason Start Date Expiration Date Visits Requ ested Visits Authorized [id number] Closed 02/12/2019 02/12/2020 1 1 Outpatient (Routine) - Closed Specialty Diagnoses / Procedures Referred By Contact Refer red To Contact Family Igor Winter P. A.-C. [facility] [address] [address] Referral ID Status Reason Start Date Expiration Date Visits Requ ested Visits Authorized [id number] Closed 02/12/2019 02/12/2020 1 1 Reason for Visit Reason Comments Med Refill Annual medication renewal/re viewed for the year. Would like 90 day supply with the 3 ref ills. Breast Cancer Screening Patient states she would lik e to get a mammogram in [place]. Order is already in chart. Outpatient (Routine) - Closed Specialty Diagnoses / Procedures Referred By Contact Refer red To Contact Family Medicine Igor Horn P. A.-C. [facility] [address] [place] [address] Referral ID Status Reason Start Date Expiration Date Visits Requ ested Visits Authorized [id number] Closed 08/25/2018 08/25/2019 1 1 Encounter Details Date Type Department Care Team Description 02/12/2019 Comprehensive Visit Department of Paige Hornli pidemia (Primary Dx); Family Medicine in Igor, Hypothyro idism Primary; [place], [place] Shivam Pain Knee Right; [address] [facility] 225 [facility] Rhinitis Allergic; [place], [place] Asthma Intrinsi c ([facility]); [phone] Hypertension Essential Primary; [phone] [facility] (Work) Social History Tobacco Use [...] Body Mass Index 38.57 08/19/2018 2:24 PM STITCH BONDING MACHINE TENDER documented in this encounter H&P Notes Igor Horn P.A.-C. - 02/12/2019 8:45 AM CDT CHIEF COMPLAINT / REASON FOR VISIT Ainsley Cedeño is a 78 y.o. female who presents for evaluation of Med Refill (Annualmedication renewal/reviewed for the year. Would like 90 day supply with the 3 refills.) and Breast Cancer Screening (Patient states she would like to get a mammogram in [place]. Order is already in chart.). HISTORY OF PRESENT ILLNESS Ainsley presents today for her yearly history and physical. For the most part she has been in good health. She has asthma she sees a physician in [place] for this. She has hypertension this is well controlled she has hyperlipidemia this is well controlled she has hypothyroidism this is well controlled. 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 She has allergies that are [...] She will continue to follow with her hydrology teacher in [place] she uses her inhalers regularly #6 Hypertension [...] Appointment Radiation Oncology Rickey Barry M.D. [address] [place] [phone] (Wo rk) Scheduled Referrals Name Type [...] Code Phon e Number [facility]- [address] [facility] [place] [address] [facility] [place] [address] System in [place] [address] [facility] (ABNORMAL) Lipid Panel (02/18/2020 9:05 AM CDT) [...] Code Phon e Number [facility]- [address] [facility] [place] [address] [facility] [place] [facility] [address] System in [place] [address] [facility] Comprehensive Metabolic Panel (02/18/2020 9:05 AM [...] CDT eGFR-Black/Afric 89 >=60 02/18/2020 [facility] an English mL/min/BSA 11:02 AM CDT Comment: ----ADDITIONAL INFORMATION---- [...] Organization Address City/State/ZIP Code Phon e Number [facility]- [address] [place] [address] [place] [address] System in [place] [address] (TTE) 2D ECHO DOPPLER COLOR (03/18/2019 2:54 PM CDT) [facility] Method Time Signature Ejection Fraction 66 [...] effusion. For the complete report, see the [employer] Documents below. See PDF For Result Procedure [...] Heart documented in this encounter Care Teams Floor Steward/Stewardess Relationship Specialty Start Date End Date Igor Horn P.A.-C. PCP - General 06/14/18 03/15/22 [address] [place] [address] documented as of this encounter
--- OUTSIDE RECORDS SUMMARY | 2022-08-22 14:47 | XMS_ITS | Encounter Summary ---
:1940 Author Organization [facility] Address [address] [place] [address] Care Team Providers Name Role Phone Igor Horn P.A.-C. Primary Care Provider [phone] Encounter Details Date Type Department Care Team Description 12/25/2018 Clinical Communication Department of Igor Byrd, Medicine, [place] Shivam [facility], in [address] [facility] [address] [place], [place] [phone] (Work) [phone] Social History Tobacco Use Types Packs/Day Years [...] meetings of the More than 4 times [facility] year 03/16/2022 clubs or organizations you belong [...] will check thru the portal, please add [place] number in message Name of Medication (if relevant): na documented in this encounter Plan of Treatment Upcoming Encounters Date Type Specialty Care Team Description 08/24/2022 Appointment Radiation Oncology Rickey Barry M.D. [address] [place], [place] [phone] (Wo rk) documented as of this encounter Visit Diagnoses Diagnosis Screening Mammogram Breast Cancer - Prim haroldo documented in this encounter Care Teams Theatre Instructor Relationship Specialty Start Date End Date Igor Horn P.A.-C. PCP - General 06/14/18 03/15/22 [address] [place] [phone] documented as of this encounter
--- OUTSIDE RECORDS SUMMARY | 2022-08-22 14:47 | XMS_ITS | Encounter Summary ---
:1940 Author Organization [facility] Address [address] [place] [address] Care Team Providers Name Role Phone Igor Horn P.A.-C. 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 [address] [phone] Referral ID Status Reason Start Date Expiration Date Visits V isits Requested Authorized [id number] Closed Specialty 03/23/2019 03/22/2020 1 1 Services Required Reason for Visit Reason Comments Results Echo results completed on 09/24. Outpatient (Routine) - Closed Specialty Diagnoses / Procedures Referred By Contact Refer red To Contact Family Medicine Igor Horn P. A.-C. [address] [phone] Referral ID Status Reason Start Date Expiration Date Visits Requ ested Visits Authorized [id number] Closed 02/12/2019 02/12/2020 1 1 Encounter Details Date Type Department Care Team Description 03/23/2019 Office Visit Department of Igor Byrd Pa in Knee Right (Primary Dx); Medicine in [place], P.A.-C. Regurgitation Mitral; [place] 225 [facility] Screening Mammogram Breast Cancer; 225 [place], [place] Malignant Neoplasm Of Forear m Squamous Cell Carcinoma Right JOHN PANG [address] [phone] Social History Tobacco Use Types Packs/Day Years [...] have completed or the highest Roland, MEd, NUT STEAMER, MARIE) degree you have received? 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 Total time spent with her today was 25 minutes of which 20 was ixdz-iq-oegq coordination of care and counseling Igor Horn P.A.-C. documented in this encounter Plan of Treatment Upcoming Encounters Date Type Specialty Care Team Description 08/24/2022 Appointment Radiation Oncology Rickey Barry M.D. [address] [place] [phone] (Wo rk) Scheduled Referrals Name Type Priority Associated Order Schedule Diagnoses Dermatology - General Outpatient Referral Routine Malignant Ne oplasm Expected: consult (clinic) Of Forearm Squamous 03/07 Cell Carcinoma (Approximate) , Right Expires: 03/23/2022 documented as of this encounter Results BI Breast Screening Bilateral with Tomosynthesis (04/07/2019 10:21 AM CDT) Anatomical Region Laterality Modality Breast, Breast Imaging RST LOS, Breast Imaging [facility], [address] Bilateral Mammography Imaging [facility] Specimen (Source) Anatomical Collection Method Collection [...] Cancer documented in this encounter Care Teams Motel Maid Relationship Specialty Start Date End Date Igor Horn P.A.-C. PCP - General 06/14/18 03/15/22 225 [place] [address] documented as of this encounter
--- OUTSIDE RECORDS SUMMARY | 2022-08-22 14:47 | XMS_ITS | Encounter Summary ---
:1940 Author Organization [facility] Address [address] [place] [address] Care Team Providers Name Role Phone Igor Horn P.A.-C. Primary Care Provider [phone] Reason for Visit Reason Onset Date Comments annual wellness scheduling 01/20/2019 Encounter Details Date Type Department Care Team Description 01/20/2019 Clinical Communication Department of car[place]o [place] Family [facility], [place] [facility], in [address] [phone] Social History Tobacco Use Types Packs/Day Years [...] Radiation Oncology Rickey Barry M.D. [address] [place], [place] [phone] (Wo rk) documented as of this encounter Visit Diagnoses Not on filedocumented in this encounter Care Teams Fruit Picker Machine Operator Relationship Specialty Start Date End Date Igor Horn P.A.-C. PCP - General 06/14/18 03/15/22 225 [place] [address] documented as of this encounter
--- OUTSIDE RECORDS SUMMARY | 2022-08-22 14:47 | XMS_ITS | Encounter Summary ---
:1940 Author Organization [facility] Address [address] [place] [address] Care Team Providers Name Role Phone Igor Horn P.A.-C. Primary Care Provider [phone] Encounter Details Date Type Department Care Team Description 08/20/2018 Orders Only Department of [facility] Igor Horn, Medicine, [facility], PNeda Jones in [facility] [address] [place] [address] [place] [address] [phone] Social History Tobacco Use Types Packs/Day Years [...] meetings of the More than 4 times [facility] year 03/16/2022 clubs or organizations you belong [...] Radiation Oncology Rickey Barry M.D. [address] [place], [place] [phone] (Wo rk) documented as of this encounter Visit Diagnoses Not on filedocumented in this encounter Care Teams Pen Maker Relationship Specialty Start Date End Date Igor Horn P.A.-C. PCP - General 06/14/18 03/15/22 225 [place] [phone] documented as of this encounter
--- OUTSIDE RECORDS SUMMARY | 2022-08-22 14:47 | XMS_ITS | Encounter Summary ---
:1940 Author Organization [facility] Address [address] [place] [address] Care Team Providers Name Role Phone Igor Horn P.A.-C. Primary Care Provider [phone] Encounter Details Date Type Department Care Team Description 03/18/2019 Hospital Encounter Department of Igor Horn [facility] Heart Cardiovascular Diseases [place] in [facility] [address] [facility] [address] [place] [address] [phone] Social History Tobacco Use Types Packs/Day Years [...] Appointment Radiation Oncology Rickey Barry M.D. [address] [place] [phone] (Wo rk) documented as of this encounter Procedures Procedure Name Priority Date/Time Associated Diagnosis Comme nts (TTE) 2D ECHO Routine 03/18/2019 2:54 PM Murmur Heart Results for this DOPPLER COLOR CDT procedure are in the results section. documented in this encounter Results (TTE) 2D ECHO DOPPLER COLOR (03/18/2019 2:54 PM CDT) [facility] Method Time Signature Ejection Fraction 66 [...] For the complete report, see the [employer] Documents below. See PDF For Result Procedure Note Wicho Flores M.D. - 03/18/2019Form atting of this note might be different from the original. For the complete report, see the Packet [employer] [facility] Documents below. Final Impressions 1. Aortic valve [...] Heart documented in this encounter Care Teams Sheet Metal Apprentice Relationship Specialty Start Date End Date Igor Horn P.A.-C. PCP - General 06/14/18 03/15/22 225 [place] [address] documented as of this encounter
--- OUTSIDE RECORDS SUMMARY | 2022-08-22 14:47 | XMS_ITS | Encounter Summary ---
:1940 Author Organization [facility] Address [address] [place] [address] Care Team Providers Name Role Phone Igor Horn P.A.-C. Primary Care Provider [phone] Reason for Visit Reason Comments Other Has many questions she would like answered today, She brought a list with her. 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 Appointment Request (Routine) - Closed Specialty Diagnoses / Procedures Referred By Contact Refer red To Contact Family Medicine Referral ID Status Reason Start Date Expiration Date Visits Requ ested Visits Authorized [id number] Closed 09/15/2019 09/14/2020 1 1 Encounter Details Date Type Department Care Team Description 09/28/2019 Office Visit Department of Family Igor Horn Pa in Knee Right (Primary Dx); Medicine in [place], [place]. Pain Low Back; [address] Body Mass Index 30-39.9 Adult; 225 [place], [place] [address] [phone] Social History Tobacco Use Types Packs/Day Years [...] 03/16/2022 organizations such as taoist groups, unions, fraVimessa or athletic groups, or school groups? How [...] have completed or the highest Roland, MEd, STAFFING ASSOCIATE, MARIE) degree you have received? Sex Assigned at Date Recorded Female 06/26/2021 8:35 AM CDT documented as of this encounter Last Filed Vital Signs Vital Sign Reading Time Taken Comments Blood Pressure 135/66 09/28/2019 10:18 AM EYEGLASS MAKER Pulse 76 09/28/2019 10:15 AM EYEGLASS MAKER Temperature 36 ??C (96.8 ??F) 09/28/2019 10:15 AM EYEGLASS MAKER Respiratory Rate 16 09/28/2019 10:15 AM EYEGLASS MAKER Oxygen Saturation 97% 09/28/2019 10:15 AM EYEGLASS MAKER Inhaled Oxygen Concentration - - Weight 101 kg (222 lb 7.1 oz) 09/28/2019 10:15 AM EYEGLASS MAKER Height 160.6 cm (5' 3.23) 09/28/2019 10:15 AM EYEGLASS MAKER Body Mass Index 39.12 09/28/2019 10:15 AM EYEGLASS MAKER documented in this encounter Progress Notes Igor [...] pain issues. She isplanning to go to [place] for the winter and the warm air has been very beneficial for her in the past and she is excited about doing that she is planning to return to [place] in February. OBJECTIVE Vitals: 09/28/19 1015 09/28/19 [...] her physical therapy once she returns to [place]. We stressed the importance of doing nonweightbearing [...] todaywas 25 minutes of which 20 was kzvl-[id number] coordination of care and counseling Igor Horn P.A.-C. LASS MAKER documented in this encounter Plan of Treatment Upcoming Encounters Date Type Specialty Care Team Description 08/24/2022 Appointment Radiation Oncology Rickey Barry M.D. [address] [place], [place] [phone] (Wo rk) documented as of this encounter Visit Diagnoses Diagnosis Pain Knee Right - Primary Pain Low Back Unspecified Obesity Body Mass Index 30-39.9 Adult Bundle Branch Block Left documented in this encounter Care Teams Computator Relationship Specialty Start Date End Date Igor Horn P.A.-C. PCP - General 06/14/18 03/15/22 225 [place] [address] documented as of this encounter
--- OUTSIDE RECORDS SUMMARY | 2022-08-22 14:47 | XMS_ITS | Encounter Summary ---
:1940 Author Organization [facility] Address [address] [place] [address] Care Team Providers Name Role Phone Igor Horn P.A.-C. Primary Care Provider [phone] Reason for Referral Outpatient (Routine) - Closed Specialty Diagnoses / Procedures Referred By Contact Refer red To Contact Family Medicine Igor Horn P. A.-C. [facility] Region [address] [place] [phone] Referral ID Status Reason Start Date Expiration Date Visits Requ ested Visits Authorized [id number] Closed 08/25/2018 08/25/2019 1 1 RUCTIONAL MATERIAL DIRECTOR Reason for Visit Reason Comments Med Refill States annual exam is not du e until February 2019. Her prescriptions run out in Nov. She will be out of town and does not return until February. Encounter Details Date Type Department Care Team Description 08/25/2018 Office Visit Department of Paige Byrdli pidemia (Primary Dx); Medicine [place] P.A. -C. Hypothyroidism Primary; [address] Pain Knee Right; [address] [place] [address] Asthma Intrinsic (HCC); [place] [address] Screening Examination Diabetes Mellitus; [phone] Rhinitis Allerg ic; (Work) Hypertension Essential Primary [...] Comments Blood Pressure 136/78 08/25/2018 8:48 AM INSTRUCTIONAL MATERIAL DIRECTOR Pulse 83 08/25/2018 8:48 AM INSTRUCTIONAL MATERIAL DIRECTOR Temperature 36.7 ??C (98.1 ??F) 08/25/2018 8:48 AM INSTRUCTIONAL MATERIAL DIRECTOR Respiratory Rate 16 08/25/2018 8:48 AM INSTRUCTIONAL MATERIAL DIRECTOR Oxygen Saturation 96% 08/25/2018 8:48 AM INSTRUCTIONAL MATERIAL DIRECTOR Inhaled Oxygen Concentration - - Weight 101 kg (223 lb 12.3 oz) 08/25/2018 8:48 AM INSTRUCTIONAL MATERIAL DIRECTOR Height - - Body Mass Index 38.91 08/19/2018 2:24 PM INSTRUCTIONAL MATERIAL DIRECTOR documented in this encounter H&P Notes Igor [...] near future but she is moving to [place] for the winter and will check her [...] Asthma Intrinsic (HCC) She just saw her picker and sorter load and unload in [place] for this I reviewed the note she [...] was 30 min of which 20 was [id number]-dm-[id number] coordination of care and counseling Igor Horn P.A.-C. RUCTIONAL MATERIAL DIRECTOR documented in this encounter Plan of Treatment Upcoming Encounters Date Type Specialty Care Team Description 08/24/2022 Appointment Radiation Oncology Rickey Barry M.D. [address] [place], [place] [phone] (Wo rk) Scheduled Referrals Name Type Priority Associated Diagnoses Order S jessica Family Medicine Outpatient Referral Routine Expec michelle: office visit 02/22/2019 (clinic) (Approximate), Expires: 08/25/2021 documented as of this encounter Results S-TSH (Thyroid-Stimulating Hormone - Sensitive) (02/09/2019 8:32 AM CDT) athologist Signature TSH, Sensitive 2.5 0.3 - 4.2 02/09/2019 [facility] mIU/L 1:57 PM CDT [facility] Comment: Biotin has been identified by [...] Organization Address City/State/ZIP Code Phon e Number [facility] [address] [place] [address] LAB (ABNORMAL) Lipid Panel (02/09/2019 8:32 AM CDT) athologist Signature Cholesterol, 166 mg/dL 02/09/2019 [facility] Total 1:[address] [facility] [place] [facility] Comment: ----REFERENCE VALUE---- Desirable: < 200 Borderline high: 200 - 239 High: > or = 240 Triglycerides 147 mg/dL 02/09/2019 1:57 PM CDT [facility] [place] [facility] Comment: ----REFERENCE VALUE---- Normal: <150 Borderline high: 150-199 High: 200-499 Very high: > or =500 Cholesterol, HDL, S 45 (L) >=50 mg/dL 02/09/2019 1:57 PM CDT [facility] [place] [facility] Calculated LDL 92 mg/dL 02/09/2019 1:57 PM CDT [place] [facility] [place] [facility] Comment: ----REFERENCE VALUE---- Desirable: <100 Above Desirable: 100-129 Borderline high: 130-159 High: 160-189 Very high: > or =190 Cholesterol, Non-HDL, 121 mg/dL 02/09/2019 1:57 PM CDT [facility] [place] [facility] Comment: ----REFERENCE VALUE---- Desirable: <130 Above Desirable: 130-159 Borderline high: 160-189 High: 190-219 Very high: > or =220 Specimen Anatomical Collection Method Collection Time Receive d Time (Source) Location / / Volume Laterality Blood (Blood, 02/09/2019 8:32 AM 02/10/20 1:12 Venous) CDT PM CDT Igor Horn P.A.-C. LAB BLOOD ADD-ON Performing Organization Address City/State/ZIP Code Phon e Number [facility] [address] [place] [address] LAB Comprehensive Metabolic Panel (02/09/2019 8:32 AM CDT) P athologist Signature Potassium, S 4.3 3.6 - 5.2 02/09/2019 [facility] mmol/L 1:57 PM CDT [facility] Sodium, S 142 135 - 145 02/09/2019 [facility] mmol/L 1:57 PM CDT [facility] Chloride, S 103 98 - 107 02/09/2019 [facility] mmol/L 1:57 PM CDT [facility] Bicarbonate, S 28 22 - 29 02/09/2019 [facility] mmol/L 1:57 PM CDT [facility] Anion Gap 11 7 - 15 02/09/2019 [facility] 1:57 PM CDT [facility] BUN (Blood Urea 16 6 - 21 02/09/2019 [facility] Nitrogen), S mg/dL 1:57 PM CDT [facility] Creatinine 0.76 0.59 - 02/09/2019 [facility] 1.04 mg/dL 1:57 PM [facility] [place] [facility] eGFR-Non 76 >=60 02/09/2019 [facility] Black/ mL/min/BSA 1:57 PM [facility] [place] [facility] Comment: ----ADDITIONAL INFORMATION---- Estimated GFR calculated using the 2009 CKD_EPI creatinine equation. eGFR-Black/ 88 >=60 mL/min/BSA 2018 1:57 PM [facility] [place] [facility] Comment: ----ADDITIONAL INFORMATION---- Estimated GFR calculated using the 2009 CKD_EPI creatinine equation. Calcium, Total, S 9.8 8.8 - 10.2 02/09/2019 1:57 PM [facility] mg/dL [facility] [place] [facility] Glucose, S 117 70 - 140 mg/dL 02/09/2019 3:19 PM [facility] [place] [facility] Protein, Total, S 7.0 6.3 - 7.9 g/dL 02/09/2019 1:57 P M [facility] [place] [facility] Albumin, S 4.1 3.5 - 5.0 g/dL 02/09/2019 1:57 PM [facility] [place] [facility] Aspartate Aminotransferase 14 8 - 43 U/L 02/09/2019 1 :57 PM [facility] [place] [facility] Alkaline Phosphatase, S 81 35 - 104 U/L 02/09/2019 2: 12 PM [facility] [place] [facility] Alanine Aminotransferase 19 7 - 45 U/L 02/09/2019 1:5 7 PM [facility] S [facility] [place] [facility] Bilirubin, Total, S 0.3 <=1.2 mg/dL 02/09/2019 1:57 PM [facility] [place] [facility] Specimen Anatomical Collection Method Collection Time Receive d Time (Source) Location / / Volume Laterality Blood (Blood, 02/09/2019 8:32 AM 02/10/20 1:12 Venous) [facility] Igor Horn P.A.-C. LAB BLOOD ADD-ON Performing Organization Address City/State/ZIP Code Phon e Number [facility] [address] [place] [address] LAB documented in this encounter Visit Diagnoses Diagnosis Hyperlipidemia - Primary Hypothyroidism Primary Pain Knee Right Asthma Intrinsic (HCC) Screening Examination Diabetes Mellitus Rhinitis Allergic Hypertension Essential Primary documented in this encounter Care Teams Full Stack Engineer Relationship Specialty Start Date End Date Igor Horn P.A.-C. PCP - General 06/14/18 03/15/[address] [place] [phone] documented as of this encounter
--- OUTSIDE RECORDS SUMMARY | 2022-08-22 14:47 | XMS_ITS | Encounter Summary ---
:1940 Author Organization [facility] Address [address] [place] [address] Care Team Providers Name Role Phone Igor Horn P.A.-C. Primary Care Provider [phone] Encounter Details Date Type Department Care Team Description 04/07/2019 Hospital Encounter Department of Merlyn Horn Mammogram Radiology in [place] Breast Cancer [place], [place] 225 [facility] [address] [place] [address] [phone] Social History Tobacco Use Types Packs/Day Years [...] of the More than 4 times [facility] year 03/16/2022 clubs or organizations [...] have completed or the highest Roland, MEd, STRUCTURAL STEEL PAINTER, MARIE) degree you have received? Sex Assigned [...] Appointment Radiation Oncology Rickey Barry M.D. [address] [place] [phone] (Wo rk) documented as of this [...] Breast Imaging RST LOS, Breast Imaging [facility] Bilateral Mammography Imaging [facility] Specimen (Source) Anatomical Collection Method [...] Cancer documented in this encounter Care Teams Him Specialist Relationship Specialty Start Date End Date Igor Horn P.A.-C. PCP - General 06/14/18 03/15/22 225 [place] [address] documented as of this encounter
--- OUTSIDE RECORDS SUMMARY | 2022-08-22 14:47 | XMS_ITS | Encounter Summary ---
:1940 Author Organization [facility] Address [address] [place] [address] Care Team Providers Name Role Phone Igor Horn P.A.-C. Primary Care Provider [phone] Reason for Visit Reason Comments Follow-up Follow up related to EKG res ults. Appointment Request (Routine) - Closed Specialty Diagnoses / Procedures Referred By Contact Refer red To Contact Family Medicine Referral ID Status Reason Start Date Expiration Date Visits Requ ested Visits Authorized [id number] Closed 05/04/2019 05/03/2020 1 1 Encounter Details Date Type Department Care Team Description 05/04/2019 Office Visit Department of Igor Byrd Bu [facility] in [place], [place] Left (Primary Dx) [address] [address] [phone] Social History Tobacco Use Types Packs/Day Years [...] have completed or the highest Roland, MEd, RN TESTING, MARIE) degree you have received? Sex Assigned [...] 08/24/2022 Appointment Radiation Oncology Rickey Barry M.D. [address] [place] [phone] (Wo rk) documented as of this encounter Visit Diagnoses Diagnosis Bundle Branch Block Left - Primary documented in this encounter Care Teams Cook Vegetable Relationship Specialty Start Date End Date Igor Horn P.A.-C. PCP - General 06/14/18 03/15/22 [address] [place] [address] documented as of this encounter
--- OUTSIDE RECORDS SUMMARY | 2022-08-22 14:47 | XMS_ITS | Encounter Summary ---
:1940 Author Organization [facility] Address [address] [place] [address] Care Team Providers Name Role Phone Igor Horn P.A.-C. Primary Care Provider [phone] Encounter Details Date Type Department Care Team Description 02/09/2019 Hospital Encounter Department of Justina Hyperlip idemia; Laboratory Medicine Reyna Costa Hypothyroidism Primary; in [address] Pain Knee Right; [place], [place] Asthma Intrinsic (HCC); [address] [facility] [address] Screening Examination Diabetes Mellitus; [place], [place] [phone] Hypertension Es sential Primary [address] (Work) [phone] Social History Tobacco Use Types Packs/Day Years [...] Radiation Oncology Rickey Barry M.D. [address] [place] [address] [phone] (Wo rk) documented as of this [...] 2.5 0.3 - 4.2 02/09/2019 [facility] mIU/L 1:[address] [facility] Comment: Biotin has been identified by the lopez ruiz as a potential interfering substance. ??Higher concentr ations of biotin may be found in multivitamins, hair/nail supple ments, and workout supplements. ??If the result does not [facility] clinical observations, repeat testing after patient refrains fr om the use of supplements for at least 12 hours. Specimen Anatomical Collection Method Collection Time Receive d Time (Source) Location / / Volume Laterality Blood (Blood, 02/09/2019 8:32 AM 02/10/20 1:12 Venous) CDT PM CDT Igor Horn P.A.-C. LAB BLOOD ADD-ON Performing Organization Address City/State/ZIP Code Phon e Number [facility] [address] [place] [id number] LAB (ABNORMAL) Lipid Panel (02/09/2019 8:32 AM CDT) athologist Signature Cholesterol, 166 mg/dL 02/09/2019 [facility] Total 1:[address] [facility] Comment: ----REFERENCE VALUE---- Desirable: < 200 Borderline high: 200 - 239 High: > or = 240 Triglycerides 147 mg/dL 02/09/2019 1:57 PM CDT [facility] Comment: ----REFERENCE VALUE---- Normal: <150 Borderline high: 150-199 High: 200-499 Very high: > or =500 Cholesterol, HDL, S 45 (L) >=50 mg/dL 02/09/2019 1:57 PM CDT [facility] Calculated LDL 92 mg/dL 02/09/2019 1:57 PM CDT [facility] [place] [facility] Comment: ----REFERENCE VALUE---- Desirable: <100 Above Desirable: 100-129 Borderline high: 130-159 High: 160-189 Very high: > or =190 Cholesterol, Non-HDL, 121 mg/dL 02/09/2019 1:57 PM CDT [facility] [place] LASHA Coronel Comment: ----REFERENCE VALUE---- Desirable: [...] Code Phon e Number [facility] [employer] [address] [place] [address] LAB Comprehensive Metabolic Panel (02/09/2019 8:32 AM CDT) P athologist Signature Potassium, S 4.3 3.6 - 5.2 02/09/2019 [facility] mmol/L 1:57 PM T [facility] Sodium, S 142 135 - 145 02/09/2019 [facility] mmol/L 1:57 PM [facility] Chloride, S 103 98 - 107 02/09/2019 [facility] mmol/L 1:57 PM [facility] Bicarbonate, S 28 22 - 29 02/09/2019 [facility] mmol/L 1:57 PM [facility] Anion Gap 11 7 - 15 02/09/2019 [facility] 1:57 PM [facility] BUN (Blood Urea 16 6 - 21 02/09/2019 [facility] Nitrogen), S mg/dL 1:[address] Creatinine 0.76 0.59 - 02/09/2019 [facility] 1.04 mg/dL 1:57 PM [facility] eGFR-Non 76 >=60 02/09/2019 [facility] Black/ mL/min/BSA 1:[address] [facility] [place] [facility] Comment: ----ADDITIONAL INFORMATION---- Estimated GFR calculated using the 2009 CKD_EPI creatinine equation. eGFR-Black/ 88 >=60 mL/min/BSA 2018 1:57 PM [facility] [place] [facility] Comment: ----ADDITIONAL INFORMATION---- Estimated GFR calculated using the 2009 CKD_EPI creatinine equation. Calcium, Total, S 9.8 8.8 - 10.2 02/09/2019 1:57 PM [facility] mg/dL [facility] [place] [facility] Glucose, S 117 70 - 140 mg/dL 02/09/2019 3:19 PM [facility] [place] [facility] Protein, Total, S 7.0 6.3 - 7.9 g/dL 02/09/2019 1:57 P M [facility] [place] [facility] Albumin, S 4.1 3.5 - 5.0 g/dL 02/09/2019 1:57 PM [facility] [place] [facility] Aspartate Aminotransferase 14 8 - 43 U/L 02/09/2019 1 :57 PM [facility] Alkaline Phosphatase, S 81 35 - 104 U/L 02/09/2019 2: 12 PM [facility] [place] [facility] Alanine Aminotransferase 19 7 - 45 U/L 02/09/2019 1:5 7 PM [facility] Bilirubin, Total, S 0.3 <=1.2 mg/dL 02/09/2019 1:57 PM [facility] Specimen Anatomical Collection Method Collection Time Receive d Time (Source) Location / / Volume Laterality Blood (Blood, 02/09/2019 8:32 AM 02/10/20 19 1:12 Venous) CDT PM CDT Igor Horn P.A.-C. LAB BLOOD ADD-ON Performing Organization Address City/State/ZIP Code Phon e Number [facility] [employer] [address] [place] [address] LAB documented in this encounter Visit Diagnoses Diagnosis Hyperlipidemia Hypothyroidism Primary Pain Knee Right Asthma Intrinsic (HCC) Screening Examination Diabetes Mellitus Hypertension Essential Primary documented in this encounter Care Teams Correctional Program Specialist Relationship Specialty Start Date End Date Igor Horn P.A.-C. PCP - General 06/14/18 03/15/22 [address] [place] [phone] documented as of this encounter
--- OUTSIDE RECORDS SUMMARY | 2022-08-22 14:47 | XMS_ITS | Encounter Summary ---
:1940 Author Organization [facility] Address [address] [place] [address] Care Team Providers Name Role Phone Igor Horn P.A.-C. Primary Care Provider Reason for Visit Reason Onset Date Comments Asthma flare update 10/31/2018 Encounter Details Date Type Department Care Team Description 10/31/2018 Clinical Communication Division of Arnulfo Ma flare update Allergic Diseases Valdemar Olivo M.D. in [address] [place] [address] [place], [place] [phone] (Work) [phone] Social History Tobacco Use Types Packs/Day Years [...] of the More than 4 times [facility] year 03/16/2022 clubs or organizations [...] following references were used: provider Dr. Ma ING AND COOLING TECHNICIAN Telephone Encounter - Valdemar Ma M.D. - 10/31/2018 3:54 PM HEATING AND COOLING TECHNICIAN Cale Parrish, Notes reviewed. Would recommend continuing the prednisone 5mg twice a day for the next 3 days, Then if doing well, can decrease to 5mg once a day for three days, then can stop. Thanks, Dr. Ma ING AND COOLING TECHNICIAN Telephone Encounter - Jodie Shaw R.N. - [...] that Dr. Ma is not at the [facility] today. Ainsley is seeking his recommendations prior to the upcoming weekend. ING AND COOLING TECHNICIAN Telephone Encounter - Karina Perdomo - 10/31/2018 9:51 AM CST Calling with update on asthma flare. Need further guidance for the weekend. ING AND COOLING TECHNICIAN documented in this encounter Plan of Treatment Upcoming Encounters Date Type Specialty Care Team Description 08/24/2022 Appointment Radiation Oncology Rickey Barry M.D. [address] [place] [address] [phone] (Wo rk) documented as of this encounter Visit Diagnoses Not on filedocumented in this encounter Care Teams Awning Spreader Relationship Specialty Start Date End Date Igor Horn P.A.-C. PCP - General 06/14/18 03/15/[address] [place] [phone] documented as of this encounter
--- OUTSIDE RECORDS SUMMARY | 2022-08-22 14:47 | XMS_ITS | Encounter Summary ---
:1940 Author Organization [facility] Address [address] [place] [address] Care Team Providers Name Role Phone Igor Horn P.A.-C. Primary Care Provider [phone] Encounter Details Date Type Department Care Team Description 04/30/2019 Orders Only Department of [facility] Igor Horn, Medicine, [facility], PNeda Jones in [facility] [address] [place] [address] [place] [address] [phone] Social History Tobacco Use Types Packs/Day Years [...] meetings of the More than 4 times [facility] year 03/16/2022 clubs or organizations [...] completed or the highest Roland, MEd, DIRECTOR TRIAL, MARIE) degree you have received? Sex Assigned at Date Recorded Female 06/26/2021 8:35 AM CDT documented as of this encounter Plan of Treatment Upcoming Encounters Date Type Specialty Care Team Description 08/24/2022 Appointment Radiation Oncology Rickey Barry M.D. [address] [place], [place] [phone] (Wo rk) documented as of this encounter Visit Diagnoses Not on filedocumented in this encounter Care Teams Offshore Wind Operations Manager Relationship Specialty Start Date End Date Igor Horn P.A.-C. PCP - General 06/14/18 03/15/22 [address] [place] [phone] documented as of this encounter
--- OUTSIDE RECORDS SUMMARY | 2022-08-22 14:47 | XMS_ITS | Encounter Summary ---
:[address] [facility] Address [address] [place] [address] Care Team Providers Name Role Phone Igor Horn P.A.-C. Primary Care Provider [phone] Encounter Details Date Type Department Care Team Description 05/01/2019 Hospital Encounter Department of Justina General Medical Examination Adult; Radiology in Shivam Costa Pain Knee Right [place], [place] [address] [place] [address] [phone] Social History Tobacco Use Types Packs/Day Years [...] meetings of the More than 4 times [facility] year 03/16/2022 clubs or organizations you [...] have completed or the highest Roland, MEd, LAST PULLER, MARIE) degree you have received? Sex Assigned [...] Appointment Radiation Oncology Rickey Barry M.D. [address] [place] [phone] (Wo rk) documented as of [...] findings. Igor Horn P.A.-C. IMG DIAGNOSTIC IMAGING OSMAN LE documented in this encounter Visit Diagnoses Diagnosis General Medical Examination Adult Pain Knee Right documented in this encounter Care Teams Associate Media Planner Relationship Specialty Start Date End Date Igor Horn P.A.-C. PCP - General 06/14/18 03/15/[address] [place] [address] documented as of this encounter
--- OUTSIDE RECORDS SUMMARY | 2022-08-22 14:48 | XMS_ITS | Encounter Summary ---
:1940 Author Organization [facility] Address [address] [place] [address] Care Team Providers Name Role Phone Aneta Whitaker APRN, C.N.PAntwan, M.S.N. Primary Care Pr ovider Encounter Details Date Type Department Care Team Description 10/09/2017 Orders Only Urgent Care in [facility], Dysuria (Prim haroldo Dx) [place], [place] Aneta Rodriguez APRN, [address] C.N.P., M.S.N. [place], [place] [address] [facility] [address] [place], [place] [phone] (Wo rk) Social History Tobacco Use Types [...] Radiation Oncology Rickey Barry M.D. [address] [place], [place] [phone] (Wo rk) documented as of this encounter Visit Diagnoses Diagnosis Dysuria - Primary documented in this encounter Care Teams Cryptographic Center Specialist Relationship Specialty Start Date End Date Aneta Whitaker APRN, C.N.P., PCP - General 06/13/18 M.S.NAntwan [address] [place] [phone] documented as of this encounter
--- OUTSIDE RECORDS SUMMARY | 2022-08-22 14:48 | XMS_ITS | Encounter Summary ---
:1940 Author Organization [facility] Address [address] [place] [address] Care Team Providers Name Role Phone Aneta Whitaker APRN C.N.PAntwan, M.S.N. Primary Care Pr ovider Encounter Details Date Type Department Care Team Description 09/14/2017 Abstract Department of Family Medicine, Provider, Historical [facility], in [place], [place] [address] [place] [address] Social History Tobacco Use Types Packs/Day [...] Appointment Radiation Oncology Rickey Barry M.D. [address] [place] [phone] (Wo rk) documented as of this encounter Visit Diagnoses Not on filedocumented in this encounter Care Teams Box Lidder Relationship Specialty Start Date End Date Aneta Whitaker APRN, C.N.P., PCP - General 06/13/18 M.S.N. [address] [place] [phone] documented as of this encounter
--- OUTSIDE RECORDS SUMMARY | 2022-08-22 14:48 | XMS_ITS | Encounter Summary ---
:1940 Author Organization [facility] Address [address] [place] [address] Care Team Providers Name Role Phone Aneta Whitaker APRN, C.N.P., M.S.N. Primary Care Pr ovider Encounter Details Date Type Department Care Team Description 09/17/2017 Hospital Encounter Department of [place], Hypothyr oidism; Laboratory Medicine Aneta Rodriguez APRN, Hyp erlipidemia; in [place], [place] Renée, M.S.N. Hypertension NOS [address] [place] [address] [phone] Social History Tobacco Use Types Packs/Day Years [...] Radiation Oncology Rickey Barry M.D. [address] [place] [address] [phone] (Wo rk) documented as of this encounter Procedures Procedure Name Priority Date/Time Associated Diagnosis Comme nts LIPID PANEL, S Routine 09/17/2017 8:29 AM Hyperlipidemia Resul ts for this SKID ROAD WORKER procedure are i n the results section. THYROID-STIMULATING Routine 09/17/2017 8:29 AM Hypothyroidism Results for this HORMONE-SENSITIVE SKID ROAD WORKER procedure are in (S-TSH) the results section. BASIC METABOLIC Routine 09/17/2017 8:29 AM Hypertension NOS Re sults for this PANEL, S/P SKID [address] WORKER procedure are i n the results section. documented in this encounter Results BMP (Basic Metabolic Panel) (09/17/2017 8:[address]) P athologist Signature Potassium, S 4.1 3.6 - 5.2 09/17/2017 [facility] mmol/L 11:32 AM [facility] [place] [facility] Sodium, S 143 135 - 145 09/17/2017 [facility] mmol/L 11:32 AM [facility] [place] [facility] Chloride, S 102 98 - 107 09/17/2017 [facility] mmol/L 11:32 AM [facility] Bicarbonate, S 27 22 - 29 09/17/2017 [facility] mmol/L 11:32 AM [facility] Anion Gap 14 7 - 15 09/17/2017 [facility] 11:32 AM [facility] BUN (Blood Urea 19 6 - 21 09/17/2017 [facility] Nitrogen), S mg/dL 11:32 AM [facility] [place] [facility] Creatinine 0.85 0.59 - 09/17/2017 [facility] 1.04 mg/dL 11:32 AM [facility] eGFR 68 >=60 09/17/2017 [facility] Non-Black/Afric mL/min/BSA 11:32 AM [facility] [place] [facility] Comment: ----ADDITIONAL INFORMATION---- Estimated GFR calculated using the 2009 CKD_EPI creatinine equation. eGFR Black/ 78 >=60 mL/min/BSA 09/17/2017 11:3 2 AM [facility] [place] [facility] Comment: ----ADDITIONAL INFORMATION---- Estimated GFR calculated using the 2009 CKD_EPI creatinine equation. Calcium, Total, S 10.1 8.9 - 10.1 mg/dL 09/17/2017 11:[address] [facility] Glucose, S 107 70 - 140 mg/dL 09/17/2017 11:[address] [facility] Specimen Anatomical Collection Method Collection Time Receive d Time (Source) Location / / Volume Laterality Blood 09/17/2017 8:29 AM 7 [facility] 10:57 AM [facility] Aneta Whitaker APRN, C.N.P., M.S.N. LAB BLOOD ADD-ON Performing Organization Address City/State/ZIP Code Phon e Number [facility] [place] [address] [address] LAB (ABNORMAL) Lipid Panel (09/17/2017 8:29 AM [facility]) athologist Signature Cholesterol, 176 mg/dL 09/17/2017 [facility] Total 11:32 AM [facility] [place] [facility] Comment: ----REFERENCE VALUE---- Desirable: < 200 Borderline high: 200 - 239 High: > or = 240 Triglycerides 186 (H) mg/dL 09/17/2017 11:[address] WORKER MA [facility] [place] [facility] Comment: ----REFERENCE VALUE---- Normal: <150 Borderline high: 150-199 High: 200-499 Very high: > or =500 Cholesterol, HDL, S 45 (L) >=50 mg/dL 09/17/2017 11:[address] [facility] [place] [facility] Calculated LDL 94 mg/dL 09/17/2017 11:[address] [facility] [place] [facility] Comment: ----REFERENCE VALUE---- Desirable: <100 Above Desirable: 100-129 Borderline high: 130-159 High: 160-189 Very high: > or =190 Cholesterol, Non-HDL, 131 mg/dL 09/17/2017 11:[address] WORKER [facility] [place] B Comment: ----REFERENCE VALUE---- Desirable: <130 Above Desirable: 130-159 Borderline high: 160-189 High: 190-219 Very high: > or =220 Specimen Anatomical Collection Method Collection Time Receive d Time (Source) Location / / Volume Laterality Blood 09/17/2017 8:[address] 10:[address] Aneta Whitaker APRN, C.N.P., M.S.N. LAB BLOOD ADD-ON Performing Organization Address City/State/ZIP Code Phon e Number [facility] [address] [place] [id number] LAB S-TSH (Thyroid-Stimulating Hormone - Sensitive) (09/17/2017 8:29 AM [facility]) P athologist Signature TSH, Sensitive 1.8 0.3 - 4.2 09/17/2017 [facility] mIU/L 11:32 AM [facility] Comment: Biotin has been identified by [...] Volume Laterality Blood 09/17/2017 8:[address] 10:[address] Aneta Whitaker APRN, C.N.P., M.S.N. LAB BLOOD ADD-ON Performing Organization Address City/State/ZIP Code Phon e Number [facility] [address] [place] [address] LAB documented in this encounter Visit Diagnoses Diagnosis Hypothyroidism Hyperlipidemia Hypertension NOS documented in this encounter Care Teams Silo Operator Relationship Specialty Start Date End Date Aneta Whitaker APRN, C.N.P., PCP - General 06/13/18 M.S.N. [address] [place] [phone] documented as of this encounter
--- OUTSIDE RECORDS SUMMARY | 2022-08-22 14:48 | XMS_ITS | Encounter Summary ---
:1940 Author Organization [facility] Address [address] [place] [address] Care Team Providers Name Role Phone Aneta Whitaker APRN, C.NAvtar, M.S.N. Primary Care Pr ovider Reason for Visit Reason Comments Med Refill Encounter Details Date Type Department Care Team Description 10/08/2017 Refill Department of Family Medicine Aneta Whitaker, Med Refill in [facility] [place] BYNUMNAvtar, M.S.N. [address] [place] [address] [place] [address] [phone] (Wo rk) Social History Tobacco Use Types [...] on filedocumented in this encounter Care Teams Instrument Room Technician Relationship Specialty Start Date End Date Aneta Whitaker APRN, C.N.P., PCP - General 06/13/18 M.S.NAntwan [address] [place] [phone] documented as of this encounter
--- OUTSIDE RECORDS SUMMARY | 2022-08-22 14:48 | XMS_ITS | Encounter Summary ---
:1940 Author Organization [facility] Address [address] [place] [address] Care Team Providers Name Role Phone Whitaker, Abelardo Marquis APRN.NAvtar, M.S.N. Primary Care Pr ovider Reason for Referral Outpatient (Routine) - Closed Specialty Diagnoses / Procedures Referred By Contact Refer red To Contact Allergy and Immunology Diagnoses Asthma (HCC) Valdemar Ma, [facility] [address] [place] [address] Referral ID Status Reason Start Date Expiration Date Visits Requ ested Visits Authorized [id number] Closed 01/24/2018 07/23/2018 1 1 Encounter Details Date Type Department Care Team Description 01/24/2018 Orders Only Division of Allergic Valdemar Ma, Asthma (HCC) Diseases in [facility] [address] [facility] 200 [place] [phone] (Wo rk) Social History Tobacco Use Types [...] Appointment Radiation Oncology Rickey Barry M.D. [address] [place] [address] [phone] (Wo rk) Scheduled Referrals Name Type Priority Associated Order Schedule Diagnoses Allergy and Outpatient Referral Routine Asthma (HCC) Expected : Immunology - 08/22/2018 Mastocytosis consult (Approx imate), (clinic) Expires: 01/24/2021 documented as of this encounter Results Spirometry (08/19/2018 1:35 PM NECKTIE MAKER) P athologist Signature VC MAX POST 2.29 1.87 - 08/27/2018 [place] [facility] 3.42 L 9:18 AM NECKTIE MAKER SU[address] PostFEV1 1.57 1.44 - 08/27/2018 [place] 2.57 L 9:18 AM NECKTIE MAKER SUITE FEV1/FVC POST 68.89 63.43 - 08/27/2018 [place] [facility] 89.68 % 9:18 AM NECKTIE MAKER SUITE PostFVC 2.28 1.87 - 08/27/2018 [place] [facility] 3.42 L 9:18 AM NECKTIE MAKER SUITE FET POST 7.68 sec 08/27/2018 [place] [facility] 9:18 AM NECKTIE MAKER SUITE PEF POST 4.51 2.65 - 08/27/2018 [place] [facility] 7.95 L/s 9:18 AM NECKTIE MAKER SUITE FEF 25-75 % 0.96 0.72 - 08/27/2018 [place] [facility] POST 3.04 L/s 9:18 AM NECKTIE MAKER SUITE VC MAX PRE 2.23 1.87 - 08/27/2018 [place] [facility] 3.42 L 9:18 AM NECKTIE MAKER SUITE FEV1 1.45 1.44 - 08/27/2018 [place] [facility] 2.57 L 9:18 AM NECKTIE MAKER SUITE FEV1/FVC 64.81 63.43 - 08/27/2018 [place] [facility] 89.68 % 9:18 AM NECKTIE MAKER SUITE FVC 2.23 1.87 - 08/27/2018 [place] [facility] 3.42 L 9:18 AM NECKTIE MAKER SUITE FET PRE 7.19 sec 08/27/2018 [place] [facility] 9:18 AM NECKTIE MAKER SUITE PEF PRE 4.20 2.65 - 08/27/2018 [facility] 7.95 L/s 9:18 AM NECKTIE MAKER SUITE MXQ45-61% 0.84 0.72 - 08/27/2018 [place] [facility] 3.04 L/s 9:18 AM NECKTIE MAKER SUITE SUBSTANCE POST NaN 08/27/2018 [place] 9:18 AM NECKTIE MAKER SUITE DOSE POST NaN 08/27/2018 [place] 9:18 AM NECKTIE MAKER SUITE % PRED VC MAX 2.23 1.87 - 08/27/2018 [place] [facility] 3.42 % 9:18 AM NECKTIE MAKER SUITE FEV1% 1.45 1.44 - 08/27/2018 [place] [facility] 2.57 % 9:18 AM NECKTIE MAKER SUITE % PRED FEV1/FVC 64.81 63.43 - 08/27/2018 [place] [facility] 89.68 % 9:18 AM NECKTIE MAKER SUITE FVC% 2.23 1.87 - 08/27/2018 [facility] [facility] 3.42 % 9:18 AM NECKTIE MAKER SUITE % PRED PEF 4.20 2.65 - 08/27/2018 [place] [facility] 7.95 % 9:18 AM NECKTIE MAKER SUITE % PRED FEF 0.84 0.72 - 08/27/2018 [place] 25-75% 3.04 % 9:18 AM NECKTIE MAKER SUITE PRED VC MAX NaN 1.87 - 08/27/2018 [place] [facility] 3.42 L 9:18 AM NECKTIE MAKER SUITE PRED FEV 1 NaN 1.44 - 08/27/2018 [place] [facility] 2.57 L 9:18 AM NECKTIE MAKER SUITE PRED FEV1/FVC NaN 63.43 - 08/27/2018 [place] 89.68 % 9:18 AM NECKTIE MAKER SUITE PRED FVC NaN 1.87 - 08/27/2018 [place] 3.42 L 9:18 AM NECKTIE MAKER SUITE PRED PEF NaN 2.65 - 08/27/2018 [place] [facility] 7.95 L/s 9:18 AM NECKTIE MAKER SUITE PRED FEF 25-75% NaN 0.72 - 08/27/2018 [place] [facility] 3.04 L/s 9:18 AM NECKTIE MAKER SUITE Specimen (Source) Anatomical Collection Method Collection Time Re ceived Time Location / / Volume Laterality 08/19/2018 1:35 PM NECKTIE MAKER Valdemar Ma M.D. PFT ORDERABLES Performing Organization Address City/State/ZIP Code Phon e Number [place] [facility] [address] [place] [address] documented in this encounter Visit Diagnoses Diagnosis Asthma (HCC) documented in this encounter Care Teams Topper Press Operator Automatic Relationship Specialty Start Date End Date Whitaker, Aneta Rodriguez APRN, C.N.P., PCP - General 06/13/18 M.S.N. [address] [place] [address] documented as of this encounter
--- OUTSIDE RECORDS SUMMARY | 2022-08-22 14:48 | XMS_ITS | Encounter Summary ---
:1940 Author Organization [facility] Address [address] [place] [address] Care Team Providers Name Role Phone Unavailable Primary Care Provider Unavailable Encounter Details Date Type Department Care Team Description 02/05/2017 Hospital Encounter HX [facility] FAMILYPRA Delbert Whitaker APRN, C.N.P., M.S.N. [address] [place] [address] (Wo rk) Social History Tobacco Use Types [...] Body Mass Index 37.52 09/21/2016 10:28 AM BULB ASSEMBLER documented in this encounter Medications at [...] of this encounter Progress Delbert Weiss, MISA, FRONT OFFICE ADMINISTRATOR - 02/05/2017 9:57 AM CDT [id number] CHIEF COMPLAINT/REASON FOR VISIT Bilateral ingrown toenails. [...] away from the nail, to see a model maker fiberglass and/or get a pedicure to see if they can help with the nail pulling it further. Try this for 2 weeks. See the only one, either the model maker fiberglass or the rent and housing investigator, and then if that is unsuccessful to come back and see me and I can do a partial toenail removal. She verbalized good understanding and agreed to plan. 2. Basal cell, skin. 3. Squamous cell, history of, right forearm. PLAN: Dermatology referral done for [place]. This will be ordered today and processed. Did advise patient that [place] would call her for appointment times but to follow up with me if she had any future healthcare problem or concern. If she did not hear from [place] to also let me know within the next few days and I would help her with the referral process. Antolin Diaz -C./tello Electronically Signed By: DELBERT WHITAKER CNP On: 02/16/2017 02:39 PM Source: [facility] [id number] Document Id: [id number] documented in this encounter Miscellaneous Notes Miscellaneous [...] RUBIN LPN - 02/05/2017 10:07 CDT Source: [facility] POWERCHART Document Id: [id number] CDT!13 Miscellaneous - Joshua Rubin L.PAntwanNAntwan - 02/05/2017 10:05 AM CDT Adult Rn Community Intake/History Adult Rn Community Intake/History Entered On: 02/05/2017 10:07 CDT Performed [...] Preferred Communication Mode : Verbal Languages : [place] Citizen Is Patient Female and 13-50 no hysterectomy [...] RUBIN LPN - 02/05/2017 10:05 CDT Source: [facility] 4Blox Document Id: [id number] CDT!39 documented in this encounter Plan of Treatment Upcoming Encounters Date Type Specialty Care Team Description 08/24/2022 Appointment Radiation Oncology Rickey Barry M.D. [address] [place] [phone] (Wo rk) documented as of this encounter Visit Diagnoses Not on filedocumented in this encounter
--- OUTSIDE RECORDS SUMMARY | 2022-08-22 14:48 | XMS_ITS | Encounter Summary ---
:1940 Author Organization [facility] Address [address] [place] [address] Care Team Providers Name Role Phone Igor Horn P.A.-C. Primary Care Provider [phone] Encounter Details Date Type Department Care Team Description 08/20/2018 Clinical Communication Department of Igor Byrd, Medicine, [facility], in [address] [address] [place], [place] [phone] [address] (Work) [phone] Social History Tobacco Use Types Packs/Day Years [...] and set up medications for trip to [place] PLAN Disposition/Recommendation: patient to schedule appointment Information: patient/caller able to repeat back in their own words Caller agreeable to plan of care: yes The following references were used: provider Igor Horn L STAMPER Telephone Encounter - Igor Horn P.A.-C. - 08/20/2018 5:34 PM LABEL STAMPER I have never seen her so she should come and see me before she leaves for [place] L STAMPER Telephone Encounter - Kelli Patel - 08/20/2018 2:18 PM CST Ainsley stopped by asking how to handle her med refills that will come due in September, since she is leaving for [place] 09[place]02[place]18 until January 2019. Please contact Ainsley to advise her at [phone]. L STAMPER documented in this encounter Plan of Treatment Upcoming Encounters Date Type Specialty Care Team Description 08/24/2022 Appointment Radiation Oncology Rickey Barry M.D. [address] [place], [place] [phone] (Wo rk) documented as of this encounter Visit Diagnoses Not on filedocumented in this encounter Care Teams Manager Metrology Relationship Specialty Start Date End Date Igor Horn P.A.-C. PCP - General 06/14/18 03/15/22 [address] [place] [phone] documented as of this encounter
--- OUTSIDE RECORDS SUMMARY | 2022-08-22 14:48 | XMS_ITS | Encounter Summary ---
:1940 Author Organization [facility] Address [address] [place] [address] Care Team Providers Name Role Phone Aneta Whitaker APRN C.N.PAntwan, M.S.N. Primary Care Pr ovider Encounter Details Date Type Department Care Team Description 10/14/2017 Abstract Department of Family Medicine, Provider, Historical [facility], in [place], [place] [address] [place], [place] [phone] Social History Tobacco Use Types Packs/Day [...] Radiation Oncology Rickey Barry M.D. [address] [place], [place] [phone] (Wo rk) documented as of this encounter Visit Diagnoses Not on filedocumented in this encounter Care Teams Instructor Ground Services Relationship Specialty Start Date End Date Aneta Whitaker APRN, C.N.P., PCP - General 06/13/18 M.S.NAntwan [address] [place] [phone] documented as of this encounter
--- OUTSIDE RECORDS SUMMARY | 2022-08-22 14:48 | XMS_ITS | Encounter Summary ---
:1940 Author Organization [facility] Address [address] [place] [address] Care Team Providers Name Role Phone Igor Horn P.A.-C. Primary Care Provider [phone] Reason for Visit Reason Comments Asthma Encounter Details Date Type Department Care Team Description 08/19/2018 Clinical Support Division of Allergic Valdemar Ma M.D. [address] [place] [phone] Asthma (HCC) Diseases in [place], Tanja Colmenares, R.N. [address] [place] [phone] [place] [address] [place] [phone] Social History Tobacco Use Types Packs/Day [...] 08/24/2022 Appointment Radiation Oncology Rickey Barry M.D. [address] [place] [phone] (Wo rk) documented as of this encounter Procedures Procedure Name Priority Date/Time Associated Diagnosis Comme nts ALI SPIROMETRY Routine 08/19/2018 1:35 PM Asthma (HCC) Results for this PICKLER HELPER procedure are i n the results section . documented in this encounter Results Spirometry (08/19/2018 1:35 PM PICKLER HELPER) P athologist Signature VC MAX POST 2.29 1.87 - 08/27/2018 [place] 3.42 L 9:18 AM PICKLER HELPER SUITE PostFEV1 1.57 1.44 - 08/27/2018 [place] 2.57 L 9:18 AM PICKLER HELPER SUITE FEV1/FVC POST 68.89 63.43 - 08/27/2018 [place] 89.68 % 9:18 AM PICKLER HELPER SUITE PostFVC 2.28 1.87 - 08/27/2018 [place] 3.42 L 9:18 AM PICKLER HELPER SUITE FET POST 7.68 sec 08/27/2018 [place] 9:18 AM PICKLER HELPER SUITE PEF POST 4.51 2.65 - 08/27/2018 [facility] 7.[facility] L/s 9:18 AM PICKLER HELPER SUITE FEF 25-75 % 0.96 0.72 - 08/27/2018 [place] POST 3.04 L/s 9:18 AM PICKLER HELPER SUITE VC MAX PRE 2.23 1.87 - 08/27/2018 [place] 3.42 L 9:18 AM PICKLER HELPER SUITE FEV1 1.45 1.44 - 08/27/2018 [place] 2.57 L 9:18 AM PICKLER HELPER SUITE FEV1/FVC 64.81 63.43 - 08/27/2018 [place] 89.68 % 9:18 AM PICKLER HELPER SUITE FVC 2.23 1.87 - 08/27/2018 [place] 3.42 L 9:18 AM PICKLER HELPER SUITE FET PRE 7.19 sec 08/27/2018 [place] 9:18 AM PICKLER HELPER SUITE PEF PRE 4.20 2.65 - 08/27/2018 [place] 7.95 L/s 9:18 AM PICKLER HELPER SUITE IEP90-87% 0.84 0.72 - 08/27/2018 [place] 3.04 L/s 9:18 AM PICKLER HELPER SUITE SUBSTANCE POST NaN 08/27/2018 [place] 9:18 AM PICKLER HELPER SUITE DOSE POST NaN 08/27/2018 [place] 9:18 AM PICKLER HELPER SUITE % PRED VC MAX 2.23 1. - 08/27/2018 [place] 3.42 % 9:18 AM PICKLER HELPER SUITE FEV1% 1.45 1.44 - 08/27/2018 [place] 2.57 % 9:18 AM PICKLER HELPER SUITE % PRED FEV1/FVC 64.81 63.43 - 08/27/2018 [place] 89.68 % 9:18 AM PICKLER HELPER SUITE FVC% 2.23 1.87 - 08/27/2018 [place] 3.42 % 9:18 AM PICKLER HELPER SUITE % PRED PEF 4.20 2.65 - 08/27/2018 [place] 7.95 % 9:18 AM PICKLER HELPER SUITE % PRED FEF 0.84 0.72 - 08/27/2018 [place] 25-75% 3.04 % 9:18 AM PICKLER HELPER SUITE PRED VC MAX NaN 1.87 - 08/27/2018 [place] 3.42 L 9:18 AM PICKLER HELPER SUITE PRED FEV 1 NaN 1.44 - 08/27/2018 [place] 2.57 L 9:18 AM PICKLER HELPER SUITE PRED FEV1/FVC NaN 63.43 - 08/27/2018 [place] 89.68 % 9:18 AM PICKLER HELPER SUITE PRED FVC NaN 1.87 - 08/27/2018 [place] 3.42 L 9:18 AM PICKLER HELPER SUITE PRED PEF NaN 2.65 - 08/27/2018 [place] 7.95 L/s 9:18 AM PICKLER HELPER SUITE PRED FEF 25-75% NaN 0.72 - 08/27/2018 [place] 3.04 L/s 9:18 AM PICKLER HELPER SUITE Specimen (Source) Anatomical Collection Method Collection Time Re ceived Time Location / / Volume Laterality 08/19/2018 1:35 PM PICKLER HELPER Valdemar Ma M.D. PFT ORDERABLES Performing Organization Address City/State/ZIP Code Phon e Number [place] SU[address] [facility] [address] documented in this encounter Visit Diagnoses Diagnosis Asthma (HCC) documented in this encounter Care Teams Raise Driller Relationship Specialty Start Date End Date Igor Horn P.A.-C. PCP - General 06/14/18 03/15/[address] [place] [phone] documented as of this encounter
--- OUTSIDE RECORDS SUMMARY | 2022-08-22 14:48 | XMS_ITS | Encounter Summary ---
:1940 Author Organization [facility] Address [address] [place] [address] Care Team Providers Name Role Phone Aneta Whitaker APRN, C.N.Lizabeth, M.S.N. Primary Care Pr ovider Reason for Visit Reason Comments Annual Exam would like medications renew ed going out of town please refill all Appointment Request (Routine) - Closed Specialty Diagnoses / Procedures Referred By Contact Refer red To Contact Family Medicine Whitaker, Aneta Rodriguez APRN, C.N.P., M.S.N. [address] [place] [address] Referral ID Status Reason Start Date Expiration Date Visits Requ ested Visits Authorized [id number] Closed 08/22/2017 02/18/2018 1 1 Encounter Details Date Type Department Care Team Description 10/04/2017 Comprehensive Visit Department of [place], [facility] [place] Family Medicine in [place] on Adult [place], [place] Abelardo BYNUM.N.PAntwan, (Primary Dx) [address] [facility] M[facility] [place], [place] [address] [facility] [address] [place], [place] [phone] Social History Tobacco Use Types Packs/Day [...] 03/16/2022 organizations such as sabianist groups, unions, fraFlotype or athletic groups, or school groups? How [...] Comments Blood Pressure 132/70 10/04/2017 10:56 AM WATER TESTER Pulse 78 10/04/2017 10:56 AM WATER TESTER Temperature 36.4 ??C (97.5 ??F) 10/04/2017 10:56 AM WATER TESTER Respiratory Rate 16 10/04/2017 10:56 AM WATER TESTER Oxygen Saturation 97% 10/04/2017 10:56 AM WATER TESTER Inhaled Oxygen Concentration - - Weight 96.3 kg (212 lb 4.9 oz) 10/04/2017 10:56 AM WATER TESTER Height 160.8 cm (5' 3.31) 10/04/2017 10:56 AM WATER TESTER Body Mass Index 37.24 10/04/2017 10:56 AM WATER TESTER documented in this encounter H&P Notes [place], Aneta Rodriguez, TANK PROCESSOR, DIRECTOR OF INSTITUTIONAL GIVING - 10/04/2017 11:00 AM CST SUBJECTIVE CHIEF COMPLAINT / REASON FOR VISIT Ainsley Cedeño is a 76 y.o. female who presents annual health maintenance exam. Patient lives half the year in [place] and half the year here in [place]. She is due for tetanus and breast [...] concern or problem. She voiced good understanding. R TESTER documented in this encounter Plan of Treatment Upcoming Encounters Date Type Specialty Care Team Description 08/24/2022 Appointment Radiation Oncology Rickey Barry M.D. [address] [place] [phone] (Wo rk) documented as of this encounter Visit Diagnoses Diagnosis Health Maintenance Examination Adult - P rimary documented in this encounter Care Teams Customer Success Associate Relationship Specialty Start Date End Date Aneta Whitaker APRN, C.N.P., PCP - General 06/13/18 M.S.N. [address] [place] [phone] documented as of this encounter
--- OUTSIDE RECORDS SUMMARY | 2022-08-22 14:48 | XMS_ITS | Encounter Summary ---
:1940 Author Organization [facility] Address [address] [place] [address] Care Team Providers Name Role Phone [place], Aneta Rodriguez APRN C.N.P., M.S.N. Primary Care Pr ovider Encounter Details Date Type Department Care Team Description 02/06/2018 Orders Only Department of [facility] Igor Horn, Medicine, [facility]. in [facility] [address] [place] [address] [place] [address] [phone] Social History Tobacco Use Types Packs/Day Years [...] Team Description 08/24/2022 Appointment Radiation Oncology Rickey Brary M.D. [address] [place], [place] [phone] (Wo rk) documented as of this encounter Visit Diagnoses Not on filedocumented in this encounter Care Teams Knitting Tester Relationship Specialty Start Date End Date Aneta Whitaker APRN, C.N.P., PCP - General 06/13/18 M.S.N. [address] [place] [address] documented as of this encounter
--- OUTSIDE RECORDS SUMMARY | 2022-08-22 14:48 | XMS_ITS | Encounter Summary ---
:1940 Author Organization [facility] Address [address] [place] [address] Care Team Providers Name Role Phone [place], Aneta Rodriguez APRN C.N.PAntwan, M.S.N. Primary Care Pr ovider Reason for Visit Reason Comments Medicare Annual Wellness Visit Subsequent Appointment Request (Routine) - Closed Specialty Diagnoses / Procedures Referred By Contact Refer red To Contact Family Medicine Referral ID Status Reason Start Date Expiration Date Visits Requ ested Visits Authorized [id number] Closed 01/23/2018 07/22/2018 1 1 Encounter Details Date Type Department Care Team Description 02/06/2018 Nurse Only Department of Family Anna Marie Babcock Med [facility] Annual Medicine, [place] B.SBenedict, R.N. Wellness Visit Clinic, in [address] [phone] Social History Tobacco Use Types [...] aids Nose symptoms: Other: no concerns LANGUAGES: Finnish VITALS: BP 146/86 (BP Location: Left arm, [...] of Children: 1- son who lives in [place] Special concerns reagding family members at home: [...] year?: No Home Environment note: Lives in [place] for warm months, in the cooler months lives in [place]. Has railings in homes for balance and [...] Appointment Radiation Oncology Rickey Barry M.D. [address] [place] [phone] (Wo rk) documented as of this encounter Visit Diagnoses Diagnosis Annual Medicare Examination Return - [facility] myke documented in this encounter Care Teams Remedy Developer Relationship Specialty Start Date End Date [place], Aneta Rodriguez APRN, C.N.P., PCP - General 06/13/18 M.S.N. [address] [place] [phone] documented as of this encounter
--- OUTSIDE RECORDS SUMMARY | 2022-08-22 14:48 | XMS_ITS | Encounter Summary ---
:1940 Author Organization [facility] Address [address] [place] [address] Care Team Providers Name Role Phone Aneta Whitaker APRN C.N.PAntwan, M.S.N. Primary Care Pr ovider Encounter Details Date Type Department Care Team Description 09/24/2017 Abstract Department of Family Medicine, Provider, Historical [facility], in [place], [place] [address] [place], [place] [phone] Social History Tobacco Use Types Packs/Day [...] Radiation Oncology Rickey Barry M.D. [address] [place], [place] [phone] (Wo rk) documented as of this encounter Visit Diagnoses Not on filedocumented in this encounter Care Teams Logistics Solution Manager Relationship Specialty Start Date End Date Aneta Whitaker APRN, C.N.P., PCP - General 06/13/18 M.S.N. [address] [place] [phone] documented as of this encounter
--- OUTSIDE RECORDS SUMMARY | 2022-08-22 14:48 | XMS_ITS | Encounter Summary ---
:1940 Author Organization [facility] Address [address] [place] [address] Care Team Providers Name Role Phone Aneta Whitaker APRN C.N.PAntwan, M.S.N. Primary Care Pr ovider Encounter Details Date Type Department Care Team Description 07/19/2017 Orders Only Department of [facility] [place], Arabella cruz Hypothyroidism; Medicine in [place] APRN, C.N.PAntwan, Hype rlipidemia; [place] M.S.N. Hypertension NOS [address] [place] [address] [place], [place] [phone] (Wo rk) Social History Tobacco Use Types [...] Radiation Oncology Rickey Barry M.D. [address] [place], [place] [phone] (Wo rk) documented as of this encounter Results BMP (Basic Metabolic Panel) (09/17/2017 8:29 AM [facility]) P athologist Signature Potassium, S 4.1 3.6 - 5.2 09/17/2017 [facility] mmol/L 11:32 AM [facility] Sodium, S 143 135 - 145 09/17/2017 [facility] mmol/L 11:32 AM [facility] Chloride, S 102 98 - 107 09/17/2017 [facility] mmol/L 11:32 AM [facility] Bicarbonate, S 27 22 - 29 09/17/2017 [facility] mmol/L 11:32 AM [facility] Anion Gap 14 7 - 15 09/17/2017 [facility] 11:32 AM [facility] BUN (Blood Urea 19 6 - 21 09/17/2017 [facility] Nitrogen), S mg/dL 11:32 AM [facility] Creatinine 0.85 0.59 - 09/17/2017 [facility] 1.04 mg/dL 11:32 AM [facility] eGFR 68 >=60 09/17/2017 [facility] Non-Black/Afric mL/min/BSA 11:32 AM [facility]- [facility] [employer] [place] [facility] Comment: ----ADDITIONAL INFORMATION---- Estimated GFR calculated using the 2009 CKD_EPI creatinine equation. eGFR Black/ 78 >=60 mL/min/BSA 09/17/2017 11:3 2 AM [facility] [place] [facility] Comment: ----ADDITIONAL INFORMATION---- Estimated GFR calculated using the 2009 CKD_EPI creatinine equation. Calcium, Total, S 10.1 8.9 - 10.1 mg/dL 09/17/2017 11:3 2 AM [facility] [place] [facility] Glucose, S 107 70 - 140 mg/dL 09/17/2017 11:32 AM [facility] [place] [facility] Specimen Anatomical Collection Method Collection Time Receive d Time (Source) Location / / Volume Laterality Blood 09/17/2017 8:29 AM 7 PRICING ANALYST 10:57 AM PRICING ANALYST Aneta Whitaker APRN, C.N.P., M.S.N. LAB BLOOD ADD-ON Performing Organization Address City/State/ZIP Code Phon e Number [facility] [address] [place] [address] LAB (ABNORMAL) Lipid Panel (09/17/2017 8:29 AM PRICING ANALYST) P athologist Signature Cholesterol, 176 mg/dL 09/17/2017 [facility] Total 11:32 AM [facility] [place] [facility] Comment: ----REFERENCE VALUE---- Desirable: < 200 Borderline high: 200 - 239 High: > or = 240 Triglycerides 186 (H) mg/dL 09/17/2017 11:32 AM [facility]- [place] [facility] Comment: ----REFERENCE VALUE---- Normal: <150 Borderline high: 150-199 High: 200-499 Very high: > or =500 Cholesterol, HDL, S 45 (L) >=50 mg/dL 09/17/2017 11:32 AM [facility] [place] [facility] Calculated LDL 94 mg/dL 09/17/2017 11:32 AM [facility] [place] [facility] Comment: ----REFERENCE VALUE---- Desirable: <100 Above Desirable: 100-129 Borderline high: 130-159 High: 160-189 Very high: > or =190 Cholesterol, Non-HDL, 131 mg/dL 09/17/2017 11:32 A M PRICING ANALYST [facility] Comment: ----REFERENCE VALUE---- Desirable: <130 Above Desirable: 130-159 Borderline high: 160-189 High: 190-219 Very high: > or =220 Specimen Anatomical Collection Method Collection Time Receive d Time (Source) Location / / Volume Laterality Blood 09/17/2017 8:29 AM 7 PRICING ANALYST 10:57 AM PRICING ANALYST Victor Hugo Renteria APRNNCayla., M.S.N. LAB BLOOD ADD-ON Performing Organization Address City/[facility]/ZIP Code Phon e Number [facility] [address] [place] [address] LAB S-TSH (Thyroid-Stimulating Hormone - Sensitive) (09/17/2017 8:29 AM PRICING ANALYST) athologist Signature TSH, Sensitive 1.8 0.3 - 4.2 09/17/2017 [facility] mIU/L 11:32 AM PRICING ANALYST [facility] Comment: Biotin has been identified [...] Volume Laterality Blood 09/17/2017 8:29 AM 7 PRICING ANALYST 10:57 AM PRICING ANALYST Victor Hugo Renteria APRNN.Amanda., M.S.N. LAB BLOOD ADD-ON Performing Organization Address City/State/ZIP Code Phon e Number [facility] [address] [place] [address] LAB documented in this encounter Visit Diagnoses Diagnosis Hypothyroidism Hyperlipidemia Hypertension NOS documented in this encounter Care Teams Charging Machine Operator Relationship Specialty Start Date End Date Whitaker, Aneta Rodriguez APRN, C.N.P., PCP - General 06/13/18 M.S.N. [address] [place] [phone] documented as of this encounter
--- OUTSIDE RECORDS SUMMARY | 2022-08-22 14:48 | XMS_ITS | Encounter Summary ---
:1940 Author Organization [facility] Address [address] [place] [address] Care Team Providers Name Role Phone Aneta Whitaker APRN, C.N.PAntwan, M.S.N. Primary Care Pr ovider Encounter Details Date Type Department Care Team Description 10/11/2017 Orders Only Urgent Care [facility] kate [place], [place] MISA C.N.PAntwan, M.S.N. [address] [place] [address] [place] [address] [phone] (Wo rk) Social History Tobacco Use Types [...] Appointment Radiation Oncology Rickey Barry M.D. [address] [place] [phone] (Wo rk) documented as of this encounter Visit Diagnoses Not on filedocumented in this encounter Care Teams Sample Shoe Inspector And Reworker Relationship Specialty Start Date End Date Aneta Whitaker APRN, C.N.P., PCP - General 06/13/18 M.S.N. [address] [place] [address] documented as of this encounter
--- OUTSIDE RECORDS SUMMARY | 2022-08-22 14:48 | XMS_ITS | Encounter Summary ---
:1940 Author Organization [facility] Address [address] [place] [address] Care Team Providers Name Role Phone Igor Horn P.A.-C. Primary Care Provider [phone] Reason for Visit Reason Comments Asthma Outpatient (Routine) - Closed Specialty Diagnoses / Procedures Referred By Contact Refer red To Contact Allergy and Immunology Diagnoses [facility] [address] [place] [address] Referral ID Status Reason Start Date Expiration Date Visits Requ ested Visits Authorized [id number] Closed 01/24/2018 07/23/2018 1 1 Encounter Details Date Type Department Care Team Description 08/19/2018 Comprehensive Visit Division of Allergic Jose Ma Asthma (HCC) Diseases in [facility] [address] [facility] 200 [place] [phone] Social History Tobacco Use Types Packs/Day Years [...] 03/16/2022 organizations such as sikhism groups, unions, [employer]ED [employer] or athletic groups, or school groups? How [...] Comments Blood Pressure 139/69 08/19/2018 2:24 PM FORKLIFT PICKER Pulse 77 08/19/2018 2:24 PM FORKLIFT PICKER Temperature 36.6 ??C (97.9 ??F) 08/19/2018 2:24 PM FORKLIFT PICKER Respiratory Rate - - Oxygen Saturation - - Inhaled Oxygen Concentration - - Weight 102 kg (225 lb 8.5 oz) 08/19/2018 2:24 PM FORKLIFT PICKER Height 161.5 cm (5' 3.58) 08/19/2018 2:24 PM FORKLIFT PICKER Body Mass Index 39.22 08/19/2018 2:24 PM FORKLIFT PICKER documented in this encounter Consult Notes Valdemar Ma M.D. - 08/19/2018 2:30 PM CST SUBJECTIVE REASON FOR CONSULT Asthma. HISTORY OF PRESENT ILLNESS Ms. Graves is a 77-year-old female with longstanding history of asthma. She was last seen in the Division approximately a year ago. When she visited her ixhiqzpy-qn-izu last year, she did take the 10 [...] spending a significant amount of time in [place] this winter. She likely will be spending more time at her sldlvvom-kr-pdv's, up to a 14-day timeframe, and likely will come back from [place] in the February timeframe. Past medical history, [...] puff twice a day. For visiting her ypylmjtk-wo-oyx, especially for the 1st go-round when she [...] during the visit. CT CT Job ID: [id number] LIFT PICKER documented in this encounter Plan of Treatment Upcoming Encounters Date Type Specialty Care Team Description 08/24/2022 Appointment Radiation Oncology Rickey Barry M.D. [address] [place], [place] [phone] (Wo rk) documented as of this encounter Visit Diagnoses Diagnosis Asthma (HCC) documented in this encounter Care Teams Nougat Cutter Machine Relationship Specialty Start Date End Date Igor Honr P.A.-C. PCP - General 06/14/18 03/15/22 225 [place] [address] documented as of this encounter
--- OUTSIDE RECORDS SUMMARY | 2022-08-22 14:48 | XMS_ITS | Encounter Summary ---
:1940 Author Organization [facility] Address [address] [place] [address] Care Team Providers Name Role Phone Aneta Whitaker APRN, C.N.P., M.S.N. Primary Care Pr ovider Reason for Visit Reason Comments Med Refill Encounter Details Date Type Department Care Team Description 11/05/2017 Refill Department of Family Medicine Aneta Whitaker, Med Refill in [place], [place] Renée BYNUM, M.S.N. [address] [facility] [address] [place] [address] [place] [address] [phone] (Wo rk) Social History Tobacco Use Types [...] Radiation Oncology Rickey Barry M.D. [address] [place], [place] [phone] (Wo rk) documented as of this encounter Visit Diagnoses Not on filedocumented in this encounter Care Teams Cotton Agent Relationship Specialty Start Date End Date Aneta Whitaker APRN, C.N.P., PCP - General 06/13/18 M.S.NAntwan [address] [place] [phone] documented as of this encounter
--- OUTSIDE RECORDS SUMMARY | 2022-08-22 14:48 | XMS_ITS | Encounter Summary ---
:1940 Author Organization [facility] Address [address] [place] [address] Care Team Providers Name Role Phone Sherman, Aneta Rodriguez APRN C.N.PAntwan, M.S.N. Primary Care Pr ovider Encounter Details Date Type Department Care Team Description 02/24/2018 Hospital Encounter Department of Mariama Horn Neoplasm Of Forearm Squamous Cell Carcinoma Right; Radiology in Shivam Costa Screening Mammogram Average Risk Patient [place], [place] [address] [place] [phone] Social History Tobacco Use Types Packs/Day Years [...] Appointment Radiation Oncology Rickey Barry M.D. [address] [place] [phone] (Wo rk) documented as of this [...] Patient documented in this encounter Care Teams Charter Coach Driver Relationship Specialty Start Date End Date Whitaker, Aneta Rodriguez APRN, C.N.P., PCP - General 06/13/18 M.S.N. [address] [place] [address] documented as of this encounter
--- OUTSIDE RECORDS SUMMARY | 2022-08-22 14:48 | XMS_ITS | Encounter Summary ---
:1940 Author Organization [facility] Address [address] [place] [address] Care Team Providers Name Role Phone Aneta Whitaker APRN, C.NAvtar, M.S.N. Primary Care Pr ovider Encounter Details Date Type Department Care Team Description 10/10/2017 Hospital Encounter Department of Sherman, Dysuria Laboratory Medicine in Aneta Rodriguez APRN, [place], [place] C.Brando, M.S.N. [address] [facility] [address] [place] [phone] (Wo rk) Social History Tobacco Use Types [...] 08/24/2022 Appointment Radiation Oncology Rickey Barry M.D. [address] [place] [phone] (Wo rk) documented as of this encounter Procedures Procedure Name Priority Date/Time Associated Comments Diagnosis URINALYSIS WITH Routine 10/10/2017 9:43 AM Result s for this MICROSCOPIC IF SURGICAL ELASTIC KNITTER HAND FRAME procedure are in INDICATED, U the results section. MICROSCOPIC MANUAL Routine 10/10/2017 9:43 AM Res ults for this SURGICAL ELASTIC KNITTER HAND FRAME procedure are i n the results section. documented in this encounter Results (ABNORMAL) Microscopic Manual (10/10/2017 9:43 AM SURGICAL ELASTIC KNITTER HAND FRAME) P athologist Signature White Blood 4-10 /hpf 10/10/2017 [facility] Cells 1:45 PM SURGICAL ELASTIC KNITTER HAND FRAME [facility] Comment: ----REFERENCE VALUE---- Males: 0-3 Females: 0-10 Unknown: 0-10 Red Blood Cells Occ-2 0 - 2 /hpf 10/10/2017 1:45 PM [facility] Bacteria Present (A) None Seen 10/10/2017 1:45 PM [facility] Specimen Anatomical Collection Method Collection Time Receive d Time (Source) Location / / Volume Laterality Urine 10/10/2017 9:43 AM 8 1:39 SURGICAL ELASTIC KNITTER HAND FRAME PM SURGICAL ELASTIC KNITTER HAND FRAME Aneta Whitaker APRN C.N.P., M.S.N. LAB URINE ORDERABLES Performing Organization Address City/State/ZIP Code Phon e Number [facility] [address] [place] [address] [place] [address] [facility]- [address] [place] [address], [place] [address] (ABNORMAL) Urinalysis with Microscopic if Indicated (10/10/2017 9:43 AM SURGICAL ELASTIC KNITTER HAND FRAME) P athologist Signature Source Midstream 10/10/2017 [facility] 9:51 AM [facility] Clarity Clear Clear 10/10/2017 [facility] 9:51 AM [facility] Color Yellow 10/10/2017 [facility] 9:51 AM [facility] Comment: ----REFERENCE VALUE---- Colorless Yellow [place]anna Blood Negative Negative 10/10/2017 9:51 AM [facility] Nitrite Negative Negative 10/10/2017 9:51 AM [facility] Leukocyte Esterase Trace (A) Negative 10/10/2017 9:51 A M [facility] Protein, U Negative mg/dL 10/10/2017 9:[address] [facility] Comment: ----REFERENCE VALUE---- Negative Trace Glucose Negative Negative mg/dL 10/10/2017 9:51 AM [facility] Ketones, QL(U) Negative Negative mg/dL 10/10/2017 9:51 AM [facility] Bilirubin Negative Negative 10/10/2017 9:51 AM [facility] pH 7.5 5.0 - 8.0 10/10/2017 9:51 AM [facility] Specific [place] 1.015 1.001 - 1.035 10/10/2017 9:51 AM [facility] Urobilinogen 0.2 0.2 - 1.0 mg/dL 10/10/2017 9:51 AM [facility] Specimen Anatomical Collection Method Collection Time Receive d Time (Source) Location / / Volume Laterality Urine 10/10/2017 9:43 AM 8 9:47 SURGICAL ELASTIC KNITTER HAND FRAME AM SURGICAL ELASTIC KNITTER HAND FRAME Aneta Whitaker APRN, C.N.P., M.S.N. LAB URINE ORDERABLES Performing Organization Address City/State/ZIP Code Phon e Number [facility] [address] [place], [place] [address] LAB documented in this encounter Visit Diagnoses Diagnosis Dysuria documented in this encounter Care Teams Screwhead Polisher Relationship Specialty Start Date End Date Aneta Whitaker APRN, C.N.P., PCP - General 06/13/18 M.S.N. [address] [place] [phone] documented as of this encounter
--- OUTSIDE RECORDS SUMMARY | 2022-08-22 14:48 | XMS_ITS | Encounter Summary ---
:1940 Author Organization [facility] Address [address] [place] [address] Care Team Providers Name Role Phone Aneta Whitaker APRN CAntwanNAntwanPAntwan, M.S.N. Primary Care Pr ovider Reason for Referral Outpatient (Routine) - Closed Specialty Diagnoses / Procedures Referred By Contact Refer red To Contact Diagnoses Pain Joint Foot Bilateral Apolonia Horn [facility].-CAntwan [facility] [address] [phone] [place] [phone] Phone: [phone] Referral ID Status Reason Start Date Expiration Visits Visits Date Requested Authorized [id number] Closed Patient 02/06/2018 08/05/2018 1 1 Preference Reason for Visit Reason Onset Date Comments Medicare Annual Wellness Visit 01/16/2018 Encounter Details Date Type Department Care Team Description 01/16/2018 Clinical Communication Department of Lashonda Page Annual Community Internal L, R.N. Wellness Visit Medicine in [address] [place], [place] [address] [address] [place], [place] [phone] (Work) [phone] Social History Tobacco Use Types Packs/Day Years [...] in a couple days to go to [place] for a week to visit her niece. Telephone Encounter - Lashonda Page R.N. - 01/23/2018 10:49 AM CDT Patient requesting Derm referral for Full skin exam due to history of squamous cell carcinoma (2001). She has been to [place] for this in the past, but is requesting a referral to go again. She also requests to have her Mammos done in [place]. Patient preference. Telephone Encounter - Lashonda Page R.N. - 01/23/2018 9:27 AM CDT Spoke with patient, she was seen in September for a physical with Aneta, but it was not an Annual Wellness visit. She is interested in scheduling that. We also discussed that she will need to establish care with a new PCP as Aneta is no longer going to the [facility]. Patient will think about a new PCP. She is thinking she would prefer a female provider. She is wanting to get scheduled for a Mammogram and a Dermatology appointment in [place] on or after 02/21/18, she is asking [...] Oncology Rickey Barry M.D. [address] [place] [phone] (Wo rk) documented as of this encounter Results BI [...] TOMOSYNTHESIS Current study was evaluated with a [employer] Aided Detection (CAD) system. INDICATION: ??Screening mammogram. [...] Patient documented in this encounter Care Teams Ibm Mainframe Developer Relationship Specialty Start Date End Date Whitaker, Aneta Rodriguez APRN, C.N.P., PCP - General 06/13/18 M.S.N. [address] [place] [address] documented as of this encounter
--- OUTSIDE RECORDS SUMMARY | 2022-08-22 14:48 | XMS_ITS | Encounter Summary ---
:1940 Author Organization [facility] Address [address] [place] [address] Care Team Providers Name Role Phone Igor Horn P.A.-C. Primary Care Provider [phone] Encounter Details Date Type Department Care Team Description 07/28/2018 Nurse Only Department of Family Medicine Francesco De Jesus, [place], [place] L.P.N. [address] [facility] [address] [address] [place], [place] [phone] Social History Tobacco Use Types Packs/Day [...] Radiation Oncology Rickey Barry M.D. [address] [place], [place] [phone] (Wo rk) documented as of this encounter Visit Diagnoses Not on filedocumented in this encounter Care Teams Regulator Mechanic Relationship Specialty Start Date End Date Igor Horn P.A.-C. PCP - General 06/14/18 03/15/22 225 [place] [address] documented as of this encounter
--- OUTSIDE RECORDS SUMMARY | 2022-08-22 14:48 | XMS_ITS | Encounter Summary ---
:1940 Author Organization [facility] Address [address] [place] [address] Care Team Providers Name Role Phone Aneta Whitaker APRN, C.N.P., M.S.N. Primary Care Pr ovider Reason for Visit Reason Comments Communication Encounter Details Date Type Department Care Team Description 01/17/2018 Clinical Communication Department of Family Cristóbal suarez Communication MedicineUlices APRN, Clinic, in Renée Elena, M.S .N. [place] [address] [address] [facility] [address] [place] [phone] Social History Tobacco Use Types Packs/Day [...] Radiation Oncology Rickey Barry M.D. [address] [place] [phone] (Wo rk) documented as of this encounter Visit Diagnoses Not on filedocumented in this encounter Care Teams Sterile Products Processor Relationship Specialty Start Date End Date Aneta Whitaker APRN, C.N.P., PCP - General 06/13/18 M.S.NAntwan [address] [place] [phone] documented as of this encounter
--- OUTSIDE RECORDS SUMMARY | 2022-08-22 14:49 | XMS_ITS | Encounter Summary ---
:1940 Author Organization [facility] Address [address] [place] [address] Care Team Providers Name Role Phone Unavailable Primary Care Provider Unavailable Encounter Details Date Type Department Care Team Description 07/01/2015 Hospital Encounter HX [facility] FBKF FAMILYPRA Aneta Whitaker APRN, C.N.P., M.S.N. [address] [place] [address] (Wo rk) Social History Tobacco Use Types [...] as of this encounter Progress Notes Aneta Wihtaker APRN, FLAMER AFTER LASTING - 07/01/2015 7:50 AM CDT [id number] CHIEF COMPLAINT/REASON FOR VISIT I think I [...] WHITAKER CNP On: 07/10/2015 10:54 AM Source: [facility] MHSDOLBEYNONRADSYS Document Id: [id number] documented in this encounter Procedure Notes Stephen [...] : Negative Test Strip Lot # : [id number] Test Strip Expiration Date : 03/2018 STEPHEN RUBIN LPN - 07/01/2015 8:09 CDT Source: [employer] Document Id: [id number] CDT!16 documented in this encounter Miscellaneous Notes [...] RUBIN LPN - 07/01/2015 8:48 CDT Source: [employer] Document Id: [id number] CDT!13 Miscellaneous - Stephen Rubin L.PAntwanNAntwan - 07/01/2015 7:59 AM CDT Adult Maintainability Engineer Intake/History Adult Maintainability Engineer Intake/History Entered On: 07/01/2015 8:00 CDT Performed [...] Preferred Communication Mode : Verbal Languages : Guamanian Is Patient Female and 13-50 no hysterectomy [...] RUBIN LPN - 07/01/2015 7:59 CDT Source: [facility] POWERCHART Document Id: [id number] CDT!39 documented in this encounter Plan of Treatment Upcoming Encounters Date Type Specialty Care Team Description 08/24/2022 Appointment Radiation Oncology Rickey Barry M.D. [address] [place] [phone] (Wo rk) documented as of this [...] Tobramycin SUSCEPTIBILITY, ALEJANDRA <=1: Suscep tible (MCG/ML) Abelardo Renteria APRN.NAvtar, M.S.N. LAB MICROB IOLOGY - GENERAL ORDERABLES Performing Organization Address City/State/ZIP Code Phon e Number POWERCHART Ketone, Urine, POCT (07/01/2015 8:09 AM CDT) [facility] gist Method Time Signature Color Pale Yellow POWERCHART Appearance Cloudy POWERCHART Leukocytes, Negative POWERCHART POCT, U Nitrites, Positive POWERCHART POCT, U Urobilinogen, 0.2 mg/dl POWERCHART POCT, Urine Protein, POCT, Negative POWERCHART U pH, POCT, 7.0 5.0 - 9.0 POWERCHART Urine Blood, POCT, U 2+ MODERATE POWERCHART Specific 1.020 1.000 - POWERCHART Davis, POCT, 1.030 U Ketone, POCT, Negative POWERCHART U Bilirubin, Negative POWERCHART POCT, U Glucose, POCT, Negative POWERCHART U Specimen (Source) Anatomical Collection Method Collection Time Re ceived Time Location / / Volume Laterality 07/01/2015 8:09 AM CDT Abelardo Renteria APRN.N.Lizabeth, M.S.N. LAB POCT O RDERABLES-MANUAL Performing Organization Address City/State/ZIP Code Phon e Number POWERCHART documented in this encounter Visit Diagnoses Not on filedocumented in this encounter Additional Health Concerns Assessment Noted Time PHQ-9 Depression Total Score: 5 07/01/2015 8:48 AM CDT documented as of this encounter
--- OUTSIDE RECORDS SUMMARY | 2022-08-22 14:49 | XMS_ITS | Encounter Summary ---
:1940 Author Organization [facility] Address [address] [place] [address] Care Team Providers Name Role Phone Unavailable [...] Historical Provider Ser - 09/13/2016 11:59 PM INSTRUCTIONAL DESIGN SPECIALIST Coding Summary-Paper Based CODING DATE: 09/25/2016 FINAL [facility] STATUS: * Discharged to Home [...] ROSALES Date Saved: 09/25/2016 08:46 am [facility] Document Id: [id number] documented in this encounter Plan of Treatment Upcoming Encounters Date Type Specialty Care Team Description 08/24/2022 Appointment Radiation Oncology Rickey Barry M.D. [address] [place] [phone] (Wo rk) documented as of this encounter Visit Diagnoses Not on filedocumented in this encounter
--- OUTSIDE RECORDS SUMMARY | 2022-08-22 14:49 | XMS_ITS | Encounter Summary ---
:1940 Author Organization [facility] Address [address] [place] [address] Care Team Providers Name Role Phone Unavailable Primary Care Provider Unavailable Encounter Details Date Type Department Care Team Description 10/18/2015 Hospital Encounter HX [facility] FBKF FAMILYPRA Delbert Whitaker APRN, C.N.P., M.S.N. [address] [place] [address] (Wo rk) Social History Tobacco Use Types [...] Comments Blood Pressure 134/74 10/18/2015 9:45 AM SAT INSTRUCTOR Pulse 81 10/18/2015 9:45 AM SAT INSTRUCTOR Temperature - - Respiratory Rate 16 10/18/2015 9:45 AM SAT INSTRUCTOR Oxygen Saturation - - Inhaled Oxygen Concentration - - Weight 97.5 kg (214 lb 15.2 oz) 10/18/2015 9:45 AM SAT INSTRUCTOR Height - - Body Mass Index 37.24 09/20/2015 8:29 AM SAT INSTRUCTOR documented in this encounter Medications at Time [...] this encounter Progress Notes Delbert Whitaker APRN, POLICE PILOT - 10/18/2015 9:26 AM CST [id number] CHIEF COMPLAINT/REASON FOR VISIT Follow up on labs. HISTORY OF PRESENT ILLNESS A very pleasant 74-year-old female presents for followup on lab work. Patient, on 09/20, had annual lab work collected for review. The patient does have history of asthma. Said she has been having someasthma related issues, chest congestion and head cold, and states that she does see [facility] for her asthma and allergy and has [...] understanding. [facility] States she knows she needs to [...] WHITAKER CNP On: 10/19/2015 07:45 AM Source: [facility] MHSDOLBEYNONRADSYS Document Id: [id number] INSTRUCTOR documented in this encounter Nursing Notes Joshua Rubin L.PAntwanN. - 12/05/2015 4:13 PM CST Prior authorization request pravastatin Document Contains Addenda Addendum by JOSHUA RUBIN LPN on December 12, 2015 10:14 SAT INSTRUCTOR Prior authorization approved. from 10/07/2015 through 12/06/2016. Will alert pharmacy. Modified by and Electronically Signed by: JOSHUA RUBIN LPN On: 12/12/2015 10:14 AM Prior authorization request for Pravastatin completed through Cover My Meds,[place] [id number]. Time spent on form 20 minutes. Electronically Signed By: JOSHUA RUBIN LPN On: 12/05/2015 04:14 PM Source: [employer] Document Id: [id number] INSTRUCTOR documented in this encounter Miscellaneous Notes Miscellaneous - Conversion, Historical Provider Ser - 03/12/2016 9:13 AM CDT [facility] March 12, 2016 Re: ELISE AMBROSEBobbiGARCIA 1940 MR# [id number] Date of Visit 10/18/2015 [facility] - Dr. Eliazar Elizalde, [...] treatment of this patient. Sincerely, Delbert Whitaker POLICE PILOT This document has images extracted. Source: [facility] Document Id: [id number] Miscellaneous - Joshua Rubin L.P.N. - 10/18/2015 9:45 AM CST Adult Assembler Product Intake/History Adult Assembler Product Intake/History Entered On: 10/18/2015 9:47 SAT INSTRUCTOR Performed On: 10/18/2015 9:45 SAT INSTRUCTOR by ERICHSEN, DWYN E COMMERCIAL CONSTRUCTION ESTIMATOR Intake Chief Complaint : Lab results Temperature [...] Dosing Weight Clinic : 97.5 kg JOSHUA RBUIN LPN - 10/18/2015 9:45 SAT INSTRUCTOR General Info Information Given By : Patient Preferred Communication Mode : Verbal Languages : Latvian Is Patient Female and 13-50 no hysterectomy : No JOSHUA RUBIN LPN - 10/18/2015 9:45 SAT INSTRUCTOR Subjective Pain Symptoms : JOSHUA Gautam LPN - 10/18/2015 9:45 SAT INSTRUCTOR Dependent Habits Exposure to Tobacco Smoke : Other: Never Smoked Smoking Status : Never smoker Tobacco 2A : No Tobacco Use/Currently Using : No Tobacco Use/Last 30 Days : No Tobacco Use/Last 12 months : No Alcohol Use : Yes JOSHUA RUBIN LPN - 10/18/2015 9:45 SAT INSTRUCTOR Caffeine Use Grid Caffeine Use : Current Type : Soft drinks Frequency : Daily Amount : 1 can diet soda Last Use : 10/18/14 JOSHUA RUBIN LPN - 10/18/2015 9:45 SAT INSTRUCTOR Recreational Drug Use Grid Drug Use : None JOSHUA RUBIN LPN - 10/18/2015 9:45 SAT INSTRUCTOR Source: [facility] POWERCHART Document Id: [id number] SAT INSTRUCTOR!41 INSTRUCTOR documented in this encounter Plan of Treatment Upcoming Encounters Date Type Specialty Care Team Description 08/24/2022 Appointment Radiation Oncology Rickey Barry M.D. [address] [place] [phone] (Wo rk) documented as of this encounter Visit Diagnoses Not on filedocumented in this encounter Additional Health Concerns Assessment Noted Time PHQ-9 Depression Total Score: 1 09/20/2015 8:43 AM SAT INSTRUCTOR documented as of this encounter
--- OUTSIDE RECORDS SUMMARY | 2022-08-22 14:49 | XMS_ITS | Encounter Summary ---
:1940 Author Organization [facility] Address [address] [place] [address] Care Team Providers Name Role Phone Unavailable Primary Care Provider Unavailable Encounter Details Date Type Department Care Team Description 09/21/2016 Hospital Encounter HX [facility] FAMILYPRA Aneta Whitaker APRN, C.N.P., M.S.N. [address] [place] [phone] (Wo rk) Social History Tobacco Use Types [...] Comments Blood Pressure 126/70 09/21/2016 10:28 AM HEAD CORRECTION OFFICER Pulse 74 09/21/2016 10:28 AM HEAD CORRECTION OFFICER Temperature - - Respiratory Rate 16 09/21/2016 10:28 AM HEAD CORRECTION OFFICER Oxygen Saturation - - Inhaled Oxygen Concentration - - Weight 95.8 kg (211 lb 3.2 oz) 09/21/2016 10:28 AM HEAD CORRECTION OFFICER Height 160.7 cm (5' 3.27) 09/21/2016 10:28 AM HEAD CORRECTION OFFICER Body Mass Index 37.1 09/21/2016 10:28 AM HEAD CORRECTION OFFICER documented in this encounter Medications at Time [...] encounter H&P Notes Sherman, Aneta Rodriguez, MISA, BEEF SKINNER - 09/21/2016 10:18 AM CST [id number] CHIEF COMPLAINT/REASON FOR VISIT Annual physical exam. [...] IMPRESSION/REPORT/PLAN 1. Health maintenance. Mammogram ordered for [place]. Patient is going to [place]. Will have this done in February. Encouraged [...] WHITAKER CNP On: 10/16/2016 11:05 AM Source: [facility] MHSDOLHUESYS Document Id: [id number] CORRECTION OFFICER documented in this encounter Miscellaneous Notes Miscellaneous - Stephen Rubin L.P.N. - 09/21/2016 10:28 AM CST Adult Bioinformatics Support Specialist Intake/History Adult Bioinformatics Support Specialist Intake/History Entered On: 09/21/2016 10:30 HEAD CORRECTION OFFICER Performed On: 09/21/2016 10:28 HEAD CORRECTION OFFICER by STEPHEN RUBIN LPN Intake Chief Complaint [...] kg/m2 STEPHEN RUBIN LPN - 09/21/2016 10:28 HEAD CORRECTION OFFICER General Info Information Given By : Patient Preferred Communication Mode : Verbal Languages : Somali Is Patient Female and 13-50 no hysterectomy : No STEPHEN RUBIN LPN - 09/21/2016 10:28 HEAD CORRECTION OFFICER Subjective Pain Symptoms : No STEPHEN RUBIN LPN - 09/21/2016 10:28 HEAD CORRECTION OFFICER Dependent Habits Exposure to Tobacco Smoke : Other: Never Smoked Smoking Status : Never smoker Tobacco 2A : No Tobacco Use/Currently Using : No Tobacco Use/Last 30 Days : No Tobacco Use/Last 12 months : No Alcohol Use : Yes STEPHEN RUBIN LPN - 09/21/2016 10:28 HEAD CORRECTION OFFICER Caffeine Use Grid Caffeine Use : Current Type : Soft drinks Frequency : Daily Amount : 1 can diet soda Last Use : 09/21/16 STEPHEN RUBIN LPN - 09/21/2016 10:28 HEAD CORRECTION OFFICER Recreational Drug Use Grid Drug Use : None STEPHEN RUBIN LPN - 09/21/2016 10:28 HEAD CORRECTION OFFICER Source: [facility] POWERCHART Document Id: [id number] HEAD CORRECTION OFFICER!42 CORRECTION OFFICER Miscellaneous - Stephen Rubin L.P.NAntwan - 09/21/2016 10:28 AM CST Health Assessment Health Assessment Entered On: 09/21/2016 10:31 HEAD CORRECTION OFFICER Performed On: 09/21/2016 10:28 HEAD CORRECTION OFFICER by STEPHEN RUBIN LPN Health Assessment Complete Health Assessment Complete or Modified : Annual Health Assessment Annual Health Assessment Completed : Yes STEPHEN RUBIN LPN - 09/21/2016 10:28 HEAD CORRECTION OFFICER Nutrition Nutrition Risk Factors by History Adult : None STEPHEN RUBIN LPN - 09/21/2016 10:28 HEAD CORRECTION OFFICER Functional Current Daily Living Assistance : None Mobility Assistance Prior to Admission : Independent STEPHEN RUBIN LPN - 09/21/2016 10:28 HEAD CORRECTION OFFICER Dependent Habits Exposure to Tobacco Smoke : Other: Never Smoked Smoking Status : Never smoker Tobacco 2A : No Tobacco Use/Currently Using : No Tobacco Use/Last 30 Days : No Tobacco Use/Last 12 months : No Alcohol Use : Yes STEPHEN RUBIN LPN - 09/21/2016 10:28 HEAD CORRECTION OFFICER Caffeine Use Grid Caffeine Use : Current Type : Soft drinks Frequency : Daily Amount : 1 can diet soda Last Use : 09/21/16 STEPHEN RUBIN LPN - 09/21/2016 10:28 HEAD CORRECTION OFFICER Recreational Drug Use Grid Drug Use : None STEPHEN RUBIN LPN - 09/21/2016 10:28 HEAD CORRECTION OFFICER AUDIT Tool How Often Do You Have A Drink : Monthly or less How Many Drinks in a Day When Drinking : 1 or 2 Six or More Drinks On One Occassion : Never Audit Phase 1 Score : 1 STEPHEN RUBIN LPN - 09/21/2016 10:28 HEAD CORRECTION OFFICER Psychosocial Domestic Abuse Concerns : None Marital Status : Number of Children : 1 Behavioral Health Screen/Safety Assmt : No [facility] Preference : STEPHEN Castellanos LPN - 09/21/2016 10:28 HEAD CORRECTION OFFICER Advance Directive Advanced Directives : No Advance Directive Additional Information : No STEPHEN RUBIN LPN - 09/21/2016 10:28 HEAD CORRECTION OFFICER Educ Needs Learning Style Preference Adult Grid Patient : Printed materials, Verbal explanation Family : Printed materials, Verbal explanation STEPHEN RUBIN LPN - 09/21/2016 10:28 HEAD CORRECTION OFFICER Source: [facility] [employer] Document Id: [id number] HEAD CORRECTION OFFICER!45 CORRECTION OFFICER documented in this encounter Plan of Treatment Upcoming Encounters Date Type Specialty Care Team Description 08/24/2022 Appointment Radiation Oncology Rickey Barry M.D. [address] [place] [phone] (Wo rk) documented as of this encounter Visit Diagnoses Not on filedocumented in this encounter
--- OUTSIDE RECORDS SUMMARY | 2022-08-22 14:49 | XMS_ITS | Encounter Summary ---
:1940 Author Organization [facility] Address [address] [place] [address] Care Team Providers Name Role Phone Unavailable Primary Care Provider Unavailable Encounter Details Date Type Department Care Team Description 11/26/2014 Hospital Encounter HX NO MAPPING Anabella Root M.D. [address] [place], [place] [phone] (Wo rk) Social History [...] Historical Provider Ser - 11/26/2014 11:[address]ICE OFFICER Coding Summary-Paper Based CODING DATE: 12/03/2014 FINAL [facility] STATUS: * Discharged to Home or Self [...] ALVARENGA Date Saved: 12/03/2014 06:42 pm [facility] Document Id: [id number] documented in this encounter Plan of Treatment Upcoming Encounters Date Type Specialty Care Team Description 08/24/2022 Appointment Radiation Oncology Rickey Barry M.D. [address] [place], [place] [phone] (Wo rk) documented as of this encounter Visit Diagnoses Not on filedocumented in this encounter Additional Health Concerns Assessment Noted Time PHQ-9 Depression Total Score: 1 09/16/2014 9:[address]ICE OFFICER documented as of this encounter
--- OUTSIDE RECORDS SUMMARY | 2022-08-22 14:49 | XMS_ITS | Encounter Summary ---
:1940 Author Organization [facility] Address [address] [place] [address] Care Team Providers Name Role Phone Unavailable Primary Care Provider Unavailable Encounter Details Date Type Department Care Team Description 03/13/2016 Hospital Encounter HX [facility] FBKF LAB Whitaker, Cecily Rodriguez, MISA, C.N.P., M. S.N. [address] [place], [place] [phone] (Wo rk) Social History [...] 11:47:45 CDT From: JEREMIAH ELLSWORTH (DAVID [facility] Imaging Aide) To: ANETA WHITAKER CNP; Sent: 08/10/2016 11:47:45 CDT Subject: RE: *Phone Message Addendum by JEREMIAH ELLSWORTH on August 10, 2016 11:47:41 CDT Pt notified and will call back to schedule. Addendum by JEREMIAH ELLSWORTH on August 10, 2016 11:46:03 CDT thank you. will notify patient. Addendum by ANETA WHITAKER CNP on August 10, 2016 07:37:49 CDT From: ANETA WHITAKER CNP To: DAVID Pascual Imaging Aide; Sent: 08/10/2016 07:37:49 CDT Subject: RE: *Phone Message Done From: JEREMIAH ELLSWORTH (DAVID [facility] Imaging Aide) To: ANETA WHITAKER CNP; Sent: 08/09/2016 13:28:27 [...] the patient. Patient can be reached at [phone] Message: Advice/Action: Source used: ( ) Verbalizes [...] back cell phone number ( ) [facility] Document Id: [id number] documented in this encounter Plan of Treatment Upcoming Encounters Date Type Specialty Care Team Description 08/24/2022 Appointment Radiation Oncology Rickey Barry M.D. [address] [place] [phone] (Wo rk) documented as of [...] for FH and FDB is available throu [facility]: FH/ADH Genetic Reflex Gan [...] at or the on-line test catalog at [employer] for information about how to order these [...] D2 and D3 (03/13/2016 8:39 AM CDT) athologist Signature HX25 HYDROXY D2 <4.0 [facility] POWERCHART 25-Hydroxy D3 42 [facility] POWERCHART Vitamin D, S 42 [facility] POWERCHART Comment: REFERENCE VALUE------ 25-HYDROXY D TOTAL (D2+D3) Optimum level s in the healthy population are 20-50, patients with bone disease may benefit from higher levels within this r anh. Test Performed by: [facility] [employer] - [address] [address] Process Eng: Hermes Lees II, M.D., Ph.D. Specimen (Source) Anatomical Collection Method Collection Time Re ceived Time Location / / Volume Laterality Blood 03/13/2016 8:39 AM CDT Aneta Whitaker APRN, C.N.P., M.S.N. LAB BLOOD [...] M.S.N. LAB BLOOD ADD-ON Performing Organization Address City/State/[facility] Code Phon e Number POWERCHART documented in this encounter Visit Diagnoses Not on filedocumented in this encounter
--- OUTSIDE RECORDS SUMMARY | 2022-08-22 14:49 | XMS_ITS | Encounter Summary ---
:1940 Author Organization [facility] Address [address] [place] [address] Care Team Providers Name Role Phone Unavailable Primary Care Provider Unavailable Encounter Details Date Type Department Care Team Description 09/13/2016 Hospital Encounter HX NO MAPPING Jasmeet Cardenas M.D. [address] [place], [place] [address] Social History Tobacco Use Types [...] Radiation Oncology Rickey Barry M.D. [address] [place], [place] [phone] (Wo rk) documented as of this encounter Visit Diagnoses Not on filedocumented in this encounter
--- OUTSIDE RECORDS SUMMARY | 2022-08-22 14:49 | XMS_ITS | Encounter Summary ---
:1940 Author Organization [facility] Address [address] [place] [address] Care Team Providers Name Role Phone Unavailable Primary Care Provider Unavailable Encounter Details Date Type Department Care Team Description 11/26/2014 Hospital Encounter HX [facility] FBHB FAMILYPRA Jack Apodaca i, M.D. [address] [place] [phone] (Wo rk) Social History Tobacco [...] Comments Blood Pressure 134/80 11/26/2014 11:47 AM COMPUTER FORENSICS TECHNICIAN Pulse 84 11/26/2014 11:47 AM COMPUTER FORENSICS TECHNICIAN Temperature - - Respiratory Rate 16 11/26/2014 11:47 AM COMPUTER FORENSICS TECHNICIAN Oxygen Saturation - - Inhaled Oxygen Concentration - - Weight 93 kg (205 lb 0.4 oz) 11/26/2014 11:47 AM COMPUTER FORENSICS TECHNICIAN Height - - Body Mass Index 35.88 10/15/2014 11:45 AM COMPUTER FORENSICS TECHNICIAN documented in this encounter Medications at [...] Lopez M.D. - 11/26/2014 11:02 AM CST [id number] CHIEF COMPLAINT/ REASON FOR VISIT Followup knee arthroplasty HISTORY OF PRESENT ILLNESS Ainsley is a 74-year -old female who presents to the clinic today for followup knee arthroplasty. She was seen on 11/18 with a followup for a recent left knee arthroplasty where her prescription for Dakota was renewed. She notices that her knee is very tender and will be tender even with light brushing from clothing. She has questions regarding her medications for pain management. She is currently taking one Dakota twice daily with Tylenol at other times. [...] as outlined in the EMR including 1. Dakota 0.5 tablet twice daily ALLERGIES Cats-unknown Prochlorperazine-unknown [...] IMPRESSION/REPORT/PLAN 1. Followup of recent knee arthroplasty. Dakota medication was decreased as above. She may [...] behalf by Selin Holloway, a trained medical insurance claims processor. The creation of this record is based on the scribe's personal observations and the provider's statements to them. This document has been denise cked and approved by the attending provider. Jack Martin M.D./denis Electronically Signed By: JACK LOPEZ MD On: 12/10/2014 08:41 AM Source: [facility] MHSDOLBEYNONRADSYS Document Id: [id number] UTER FORENSICS TECHNICIAN documented in this encounter Miscellaneous Notes Telephone [...] appiontment status. From: JEREMIAH ELLSWORTH (DAVID Pascual Inspector And Sorter) To: DAVID Pascual Family Medicine Nurse; Sent: 12/20/2014 15:18:15 CDT Subject: *Phone Message Caller is: (x ) Patient ( ) Mother ( ) Father ( ) Spouse ( ) Daughter ( ) Son ( ) Pharmacy ( ) Other: Physician: Patient MRN #: Reason for Call: Patient is wondering if her Mammogram in [place] was scheduled? What day and time? [phone] Message: Advice/Action: Source used: ( ) Verbalizes [...] back cell phone number ( ) Source: [facility] POWERCHART Document Id: [id number] Miscellaneous - Jack Lopez M.D. - 11/27/2014 12:07 AM COMPUTER FORENSICS TECHNICIAN Ambulatory Patient Summary [address] [id number] Visit Information Name: AINSLEY AGUAYO [facility] Number: [id number] Current Date: 11/27/2014 00:07:18 [...] nasal (Flonase 0.05 mg/inh nasal spray) 1 Fithian(s), Nostrils(Both), once a day hydrochlorothiazide (hydrochlorothiazide 25 mg oral tablet) 1 Tablet(s), Oral, once a day HYDROcodone-acetaminophen (Dakota 5 mg-325 mg oral tablet) 1 Tablet(s), [...] appointment detail needed. Your Goals/Additional instructions: Source: [facility] POWERCHART Document Id: [id number] UTER FORENSICS TECHNICIAN Miscellaneous - Jack Lopez M.D. - 11/27/2014 12:07 AM COMPUTER FORENSICS TECHNICIAN Ambulatory Discharge Medication List [address] [id number] Visit Information Name: AINSLEY AGUAYO [facility] Number: [id number] Visit Date: 11/27/2014 00:07:17 [...] nasal (Flonase 0.05 mg/inh nasal spray) 1 Fithian(s), Nostrils(Both), once a day hydrochlorothiazide (hydrochlorothiazide 25 mg oral tablet) 1 Tablet(s), Oral, once a day HYDROcodone-acetaminophen (Dakota 5 mg-325 mg oral tablet) 1 Tablet(s), [...] MD Signed On:27-NOV-2014 00:07:04 Additional Information: Source: [facility] POWERCHART Document Id: [id number] UTER FORENSICS TECHNICIAN Miscellaneous - Conversion, Historical Provider Ser - 11/26/2014 11:47 AM COMPUTER FORENSICS TECHNICIAN Adult Sales Service Executive Intake/History Adult Sales Service Executive Intake/History Entered On: 11/26/2014 11:48 COMPUTER FORENSICS TECHNICIAN Performed On: 11/26/2014 11:47 COMPUTER FORENSICS TECHNICIAN by JOE RAZA LPN Intake Chief Complaint [...] 93 kg JOE RAZA LPN 11/26/2014 11:47 COMPUTER FORENSICS TECHNICIAN General Info Information Given By : Patient Languages : Belarusian Is Patient Female and 13-50 no hysterectomy : No JOE RAZA [facility] 11/26/2014 11:47 COMPUTER FORENSICS TECHNICIAN Subjective Pain Symptoms : Yes JOE RAZA [facility] 11/26/2014 11:47 COMPUTER FORENSICS TECHNICIAN Pain Scale Pain Scale Verbal 0-10 : Open JOE RAZA [facility] 11/26/2014 11:47 COMPUTER FORENSICS TECHNICIAN Pain Pain Assessment Grid Pain 1 Location : Knee Laterality : Left JOE RAZA [facility] 11/26/2014 11:47 COMPUTER FORENSICS TECHNICIAN Dependent Habits Tobacco Use/Currently Using : No Exposure to Tobacco Smoke : Other: Never Smoked Smoking Status : Never smoker JOE RAZA [facility] 11/26/2014 11:47 COMPUTER FORENSICS TECHNICIAN Caffeine Use Grid Caffeine Use : Current Type : Soft drinks Frequency : Daily Amount : 1 can diet soda Last Use : 09/15/14 JOE RAZA [facility] 11/26/2014 11:47 COMPUTER FORENSICS TECHNICIAN Recreational Drug Use Grid Drug Use : None JOE RAZA [facility] 11/26/2014 11:47 COMPUTER FORENSICS TECHNICIAN ID Screen Drug Resistant Organism : No Travel Within Last 21 Days : No JOE RAZA [facility] 11/26/2014 11:47 COMPUTER FORENSICS TECHNICIAN Source: [facility] Document Id: [id number] COMPUTER FORENSICS TECHNICIAN!43 documented in this encounter Plan of Treatment Upcoming Encounters Date Type Specialty Care Team Description 08/24/2022 Appointment Radiation Oncology Rickey Barry M.D. [address] [place], [place] [phone] (Wo rk) documented as of this encounter Procedures Procedure Name Priority Date/Time Associated Diagnosis Comme nts BACTERIAL CULTURE, Routine 11/26/2014 12:30 PM Re sults for this AEROBIC, URINE COMPUTER FORENSICS TECHNICIAN procedure are in the results section. documented in this encounter Results Bacterial Culture, Aerobic, Urine (11/26/2014 12:30 PM COMPUTER FORENSICS TECHNICIAN) [facility] Method Time Signature Bacterial POWERCHART Culture, Aerobic, Urine HXFinal Mixed eros. No POWERCHART further studies unless notified. HXFinal [place] POWERCHART Microbiology laboratory [phone]. Specimen (Source) Anatomical Collection Method Collection Time Re ceived Time Location / / Volume Laterality Urine, First 11/26/2014 12:30 Voided PM COMPUTER FORENSICS TECHNICIAN Jack Root M.D. LAB MICROBIOLOGY - GEN ERAL ORDERABLES Performing Organization Address City/State/ZIP Code Phon e Number POWERCHART documented in this encounter Visit Diagnoses Not on filedocumented in this encounter Additional Health Concerns Assessment Noted Time PHQ-9 Depression Total Score: 1 09/16/2014 9:15 AM COMPUTER FORENSICS TECHNICIAN documented as of this encounter
--- OUTSIDE RECORDS SUMMARY | 2022-08-22 14:49 | XMS_ITS | Encounter Summary ---
:1940 Author Organization [facility] Address [address] [place] [address] Care Team Providers Name Role Phone Unavailable Primary Care Provider Unavailable Encounter Details Date Type Department Care Team Description 06/10/2015 Hospital Encounter HX [facility] FBK[facility] FAMILYPRA [facility] [address] [facility] [employer], [place] [phone] (Wo rk) Social History Tobacco Use Types [...] Body Mass Index 36.65 10/15/2014 11:45 AM CLOTH PRESSER documented in this encounter Medications at Time [...] P.A.-C., P.A. - 06/10/2015 10:12 AM CDT [id number] CHIEF COMPLAINT/REASON FOR VISIT Asthma and allergies [...] does have an appointment to see her [facility] citrix administrator June 30. She is wondering about a [...] today which will be administered. MEDICATIONS Reviewed [facility] EMR dated 06/10/2015 and no changes. ALLERGIES Reviewed [facility] EMR dated 06/10/2015 and no changes. SYSTEMS REVIEW Complete review of systems is performed and is otherwise negative except as noted above. PHYSICAL EXAMINATION VITAL SIGNS: Reviewed [facility] EMR dated 06/10/2015 and no changes. [...] She does have appointment to see her citrix administrator later this month. Symptoms to warrant more urgent evaluation were discussed. PCV-13 was administered today. Catia Hay P.A.-C./tello Electronically Signed By: CATIA HAY PA-C On: 06/10/2015 02:23 PM Source: [facility] MHSDOLBEYNONRADSYS Document Id: [id number] documented in this encounter Miscellaneous Notes Telephone Encounter - Conversion, Historical Provider Ser - 06/30/2015 10:24 AM CDT *Phone Message Document Contains Addenda Addendum by STEPHEN RUBIN LPN on 30 June 2015 16:22:14 CDT noted, thank you Hazel. Addendum by HAZEL ELLSWORTH on 30 June 2015 15:31:20 CDT From: HAZEL ELLSWORTH (DAVID Pascual Interpretive Naturalist) To: DAVID Pascual Family Medicine Nurse; Sent: 06/30/2015 15:31:20 CDT Subject: FW: *Phone Message Addendum by HAZEL ELLSWORTH on 30 June 2015 15:31:09 CDT Patient is scheduled for 7:45 am on 07/01 Addendum by STEPHEN RUBIN LPN on 30 June 2015 13:07:48 CDT From: STEPHEN RUBIN LPN ([facility] Family Medicine Nurse) To: DAVID Pascual Interpretive Naturalist; Sent: 06/30/2015 13:07:48 CDT Subject: FW: *Phone [...] ([facility] Nurse) To: APOLONIA PÉREZ PA-C; Sent: 06/30/2015 11:48:51 CDT Subject: FW: *Phone Message From: QUIANA FLORES ([facility] Interpretive Naturalist) To: [facility] Nurse; Sent: 06/30/2015 10:24:34 CDT Subject: *Phone [...] Line. A: please call her back R: [phone] Advice/Action: Source used: ( ) Verbalizes understanding [...] back cell phone number ( ) Source: [facility] POWERCHART Document Id: [id number] Miscellaneous - Catia Hay P.A.-C., P.A. - 06/10/2015 12:08 PM CDT Ambulatory Patient Summary [address] [id number] Visit Information Name: AINSLEY AGUAYO [facility] Number: [id number] Current Date: 06/10/2015 12:08:29 [...] nasal (Flonase 0.05 mg/inh nasal spray) 1 Vaughn(s), Nostrils(Both), once a day fluticasone-salmeterol (Advair Diskus 250 mcg-50 mcg inhalation powder) 1 puff(s), Inhalation, two times a day [facility] Routed to [address] [id number] hydrochlorothiazide (hydrochlorothiazide 25 mg oral tablet) 1 [...] for 4 days then stop Routed to [address] [id number] triamcinolone topical (triamcinolone 0.1% topical cream) See [...] if you dont have one. Go to [email or web address] and click on Create Your Account. Then, follow the directions to complete the online form. Youll be asked for your [facility] number which you can find at the top of this document. Your Goals/Additional instructions: Source: [facility] POWERCHART Document Id: [id number] Miscellaneous - Catia Hay P.A.-C., P.AAntwan - 06/10/2015 12:08 PM CDT Ambulatory Discharge Medication List [address] [id number] Visit Information Name: AINSLEY AGUAOY [facility] Number: [id number] Visit Date: 06/10/2015 12:08:27 [...] nasal (Flonase 0.05 mg/inh nasal spray) 1 Vaughn(s), Nostrils(Both), once a day fluticasone-salmeterol (Advair Diskus 250 mcg-50 mcg inhalation powder) 1 puff(s), Inhalation, two times a day New Routed to [address] [id number] hydrochlorothiazide (hydrochlorothiazide 25 mg oral tablet) 1 [...] for 4 days then stop Routed to [address] [id number] triamcinolone topical (triamcinolone 0.1% topical cream) See [...] PA-C Signed On:10-JUN-2015 12:08:11 Additional Information: Source: [facility] POWERCHART Document Id: [id number] Miscellaneous - Stephen Rubin L.PAntwanN. - 06/10/2015 10:24 AM CDT Adult Interlocker Intake/History Adult Interlocker Intake/History Entered On: 06/10/2015 10:34 CDT Performed [...] Preferred Communication Mode : Verbal Languages : Stateless Is Patient Female and 13-50 no hysterectomy [...] RUBIN LPN - 06/10/2015 10:24 CDT [facility] Document Id: [id number]!41 documented in this encounter Plan of Treatment Upcoming Encounters Date Type Specialty Care Team Description 08/24/2022 Appointment Radiation Oncology Rickey Barry M.D. [address] [place], [place] [phone] (Wo rk) documented as of this encounter Visit Diagnoses Not on filedocumented in this encounter Additional Health Concerns Assessment Noted Time PHQ-9 Depression Total Score: 1 09/16/2014 9:15 AM CLOTH PRESSER documented as of this encounter
--- OUTSIDE RECORDS SUMMARY | 2022-08-22 14:49 | XMS_ITS | Encounter Summary ---
:1940 Author Organization [facility] Address [address] [place] [address] Care Team Providers Name Role Phone Unavailable Primary Care Provider Unavailable Encounter Details Date Type Department Care Team Description 10/16/2016 Hospital Encounter HX [facility] Whitaker, Cecily Rodriguez, MISA, C.N.P., M. S.N. [address] [place], [place] [phone] (Wo rk) Social History [...] Miscellaneous Notes Miscellaneous - Delbert Whitaker APRN, CLASSROOM TECHNOLOGY COACH - 10/19/2016 8:53 AM FRUIT SHIPPER Normal Results Letter October 19, 2016 ELISE AGUAYO [address] [place] [id number] Dear ELISE AGUAYO, I am pleased to [...] None Seen - Sincerely, DELBERT WHITAKER [address] [place] [address] Electronic Signature Electronically Signed By: DELBERT WHITAKER CNP On: October 19, 2016 This document has images extracted. Source: [facility] POWERCHART Document Id: [id number] Electronically signed by Conversion, [facility] Yeast Tender [id number] at 03/18/2017 9:35 PM CDT documented in this encounter Plan of Treatment Upcoming Encounters Date Type Specialty Care Team Description 08/24/2022 Appointment Radiation Oncology Rickey Barry M.D. [address] [place], [place] [phone] (Wo rk) documented as of this encounter Procedures Procedure Name Priority Date/Time Associated Diagnosis Comme nts URINALYSIS, Routine 10/16/2016 4:17 PM Results f or this MIDSTREAM, WITH FRUIT SHIPPER procedure ar e in CULTURE IF the results INDICATED section. documented in this encounter Results (ABNORMAL) Urinalysis, Midstream, with culture if indicated (10/16/2016 4:17 PM FRUIT SHIPPER) [facility] Method Time Signature HXUR WBC. Occ-3 None Seen HPF POWERCHART HXUR RBC. Occ-2 None Seen HPF POWERCHART Squamous Occ-3 (A) None Seen HPF POWERCHART Epithelial HXUr Color Yellow Colorless POWERCHART Clarity Clear Clear POWERCHART Glucose Negative Negative MGDL POWERCHART HXBILIRUBIN Negative Negative POWERCHART Ketones, QL(U) Negative Negative MGDL POWERCHART Specific 1.015 POWERCHART [place], POCT, U Comment: Reference Range Specific [place]: 1.000-1.035 HXBLOOD Trace (A) Negative POWERCHART pH, [...] Laterality Urine, First 10/16/2016 4:17 PM Voided FRUIT SHIPPER Delbert Whitaker APRN C.N.P., M.S.N. LAB URINE ORDERABLES Performing Organization Address City/State/ZIP Code Phon e Number POWERCHART documented in this encounter Visit Diagnoses Not on filedocumented in this encounter
--- OUTSIDE RECORDS SUMMARY | 2022-08-22 14:49 | XMS_ITS | Encounter Summary ---
:1940 Author Organization [facility] Address [address] [place] [address] Care Team Providers Name Role Phone Unavailable Primary Care Provider Unavailable Encounter Details Date Type Department Care Team Description 09/20/2015 Hospital Encounter HX NO MAPPING Aneta Whitaker APRN, C.N.P., M. S.N. [address] [place], [place] [phone] (Wo rk) Social History [...] Historical Provider Ser - 09/20/2015 11:59 PM OFFICE ADMIN Coding Summary-Paper Based CODING DATE: 10/06/2015 FINAL [facility] STATUS: * Discharged to Home or Self [...] VIZCARRA Date Saved: 10/06/2015 02:57 pm Source: [facility] POWERCHART Document Id: [id number] documented in this encounter Plan of Treatment Upcoming Encounters Date Type Specialty Care Team Description 08/24/2022 Appointment Radiation Oncology Rickey Barry M.D. [address] [place], [place] [phone] (Wo rk) documented as of this encounter Visit Diagnoses Not on filedocumented in this encounter Additional Health Concerns Assessment Noted Time PHQ-9 Depression Total Score: 1 09/20/2015 8:43 AM OFFICE ADMIN documented as of this encounter
--- OUTSIDE RECORDS SUMMARY | 2022-08-22 14:49 | XMS_ITS | Encounter Summary ---
:1940 Author Organization [facility] Address [address] [place] [address] Care Team Providers Name Role Phone Unavailable Primary Care Provider Unavailable Encounter Details Date Type Department Care Team Description 11/18/2014 Hospital Encounter HX [facility] Jack Apodaca i, M.D. [address] [place] [address] (Wo rk) Social History Tobacco [...] Comments Blood Pressure 132/74 11/18/2014 1:47 PM VISCOSITY TESTER Pulse 76 11/18/2014 1:47 PM VISCOSITY TESTER Temperature - - Respiratory Rate 12 11/18/2014 1:47 PM VISCOSITY TESTER Oxygen Saturation - - Inhaled Oxygen Concentration - - Weight 93 kg (205 lb 0.4 oz) 11/18/2014 1:47 PM VISCOSITY TESTER Height - - Body Mass Index 35.88 10/15/2014 11:45 AM VISCOSITY TESTER documented in this encounter Medications at Time [...] Lopez M.D. - 11/18/2014 1:32 PM CST [id number] CHIEF COMPLAINT/ REASON FOR VISIT Possible UTI. [...] her pain medicationschedule. Ainsley also needs her Osseo refilled. Ainsley has been constipated since her surgery. She has been taking over the counter Senna. The patientdenies any additional questions or concerns at this time. MEDICATIONS Post-visit Medication Reconciliation Reviewed and are as outlined in the EMR includin. Levaquin 250 mg, 1 tablet, PO, daily for 7 days, prescribed today. 2. Osseo 5mg-325mg, 1 tablet, PO, q6hr, for pain, [...] about pain medications are answered prescription for Osseo is renewed. 3. Constipation. She will continue [...] behalf by Leila Alexandra, a trained medical cost consultant. The creation of this record is based on the scribe's personal observations and the provider's statements to them. This document has been denise cked and approved by the attending provider. Jack Martin M.D./anson Electronically Signed By: JACK LPOEZ MD On: 11/21/2014 07:46 PM Source: [facility] MHSDOLBEYNONRADSYS Document Id: [id number] OSITY TESTER documented in this encounter Miscellaneous Notes Miscellaneous - Jack Lopez M.D. - 11/18/2014 11:30 PM VISCOSITY TESTER Ambulatory Patient Summary [address] [id number] Visit Information Name: AINSLEY AGUAYO [facility] Number: [id number] Current Date: 11/18/2014 23:30:21 Physicians [...] nasal (Flonase 0.05 mg/inh nasal spray) 1 [place](s), Nostrils(Both), once a day hydrochlorothiazide (hydrochlorothiazide 25 mg oral tablet) 1 Tablet(s), Oral, once a day HYDROcodone-acetaminophen (Osseo 5 mg-325 mg oral tablet) 1 Tablet(s), Oral, every 6 hours New Routed to [facility] levofloxacin (Levaquin 250 mg oral tablet) 1 Tablet(s), Oral, once a day x 7 day(s) New Routed to [place] [id number] [place], [place] [phone] levothyroxine (Synthroid 75 mcg (0.075 mg) oral [...] Appointments Date Time Location Provider 11/26/2014 11:00 [facility] Jack Dorman MD Attention: Contact your local Clinic if further appointment detail needed. Your Goals/Additional instructions: Source: [facility] POWERCHART Document Id: [id number] OSITY TESTER Miscellaneous - Jack Lopez M.D. - 11/18/2014 11:30 PM VISCOSITY TESTER Ambulatory Discharge Medication List [address] [id number] Visit Information Name: ARNOLAINSLEY HEALYZABETH [facility] Number: [id number] Visit Date: 11/18/2014 23:30:20 Attending [...] nasal (Flonase 0.05 mg/inh nasal spray) 1 [place](s), Nostrils(Both), once a day hydrochlorothiazide (hydrochlorothiazide 25 mg oral tablet) 1 Tablet(s), Oral, once a day HYDROcodone-acetaminophen (Osseo 5 mg-325 mg oral tablet) 1 Tablet(s), Oral, every 6 hours New Routed to [place] levofloxacin (Levaquin 250 mg oral tablet) 1 Tablet(s), Oral, once a day x 7 day(s) New Routed to [address] [phone] levothyroxine (Synthroid 75 mcg (0.075 mg) oral [...] MD Signed On:18-NOV-2014 23:30:06 Additional Information: Source: [facility] POWERCHART Document Id: [id number] OSITY TESTER Miscellaneous - Miya Lutz L.PAntwanNAntwan - 11/18/2014 1:47 PM CST Adult Wood Processing Worker Intake/History Adult Wood Processing Worker Intake/History Entered On: 11/18/2014 13:50 VISCOSITY TESTER Performed On: 11/18/2014 13:47 VISCOSITY TESTER by MIYA LUTZ LPN Intake Chief Complaint [...] kg MIYA LUTZ LPN - 11/18/2014 13:47 VISCOSITY TESTER General Info Information Given By : Patient Languages : Micronesian Is Patient Female and 13-50 no hysterectomy : No MIYA LUTZ LPN - 11/18/2014 13:47 VISCOSITY TESTER Subjective Pain Symptoms : Yes MIYA LUTZ LPN - 11/18/2014 13:47 VISCOSITY TESTER Dependent Habits Tobacco Use/Currently Using : No Exposure to Tobacco Smoke : Other: Never Smoked Smoking Status : Never smoker MIYA LUTZ LPN - 11/18/2014 13:47 VISCOSITY TESTER Caffeine Use Grid Caffeine Use : Current Type : Soft drinks Frequency : Daily Amount : 1 can diet soda Last Use : 09/15/14 MIYA LUTZ LPN - 11/18/2014 13:47 VISCOSITY TESTER Recreational Drug Use Grid Drug Use : None MIYA LUTZ LPN - 11/18/2014 13:47 VISCOSITY TESTER ID Screen Drug Resistant Organism : No Travel Within Last 21 Days : No MIYA LUTZ LPN - 11/18/2014 13:47 VISCOSITY TESTER Source: [facility] POWERCHART Document Id: [id number] VISCOSITY TESTER!38 OSITY TESTER documented in this encounter Plan of Treatment Upcoming Encounters Date Type Specialty Care Team Description 08/24/2022 Appointment Radiation Oncology Rickey Barry M.D. [address] [place] [phone] (Wo rk) documented as of this encounter Procedures Procedure Name Priority Date/Time Associated Comments Diagnosis BACTERIAL CULTURE, Routine 11/18/2014 1:45 PM Res ults for this AEROBIC, URINE VISCOSITY TESTER procedure are in the results section. HXUR % DYSMORPHIC RBC Routine 11/18/2014 1:44 PM Results for this VISCOSITY TESTER procedure are i n the results section. URINALYSIS WITH Routine 11/18/2014 1:44 PM Result s for this MICROSCOPIC VISCOSITY TESTER procedure are i n the results section. documented in this encounter Results Bacterial Culture, Aerobic, Urine (11/18/2014 1:45 PM VISCOSITY TESTER) Patholo gist Method Time Signature Bacterial POWERCHART Culture, Aerobic, Urine HXFinal Mixed eros. No POWERCHART further studies unless notified. HXFinal [place] POWERCHART Microbiology laboratory [phone] Specimen (Source) Anatomical Collection Method Collection Time Re ceived Time Location / / Volume Laterality Urine, First 11/18/2014 1:45 PM Voided VISCOSITY TESTER Jack Root M.D. LAB MICROBIOLOGY - GEN ERAL ORDERABLES Performing Organization Address City/State/ZIP Code Phon e Number POWERCHART HXUR % DYSMORPHIC RBC (11/18/2014 1:44 PM VISCOSITY TESTER) P athologist Signature Dysmorphic RBC <=25 <=25 POWERCHART Specimen Anatomical Collection Method Collection Time Receive d Time (Source) Location / / Volume Laterality Urine, First 11/18/2014 1:44 PM 5 1:44 Voided VISCOSITY TESTER PM VISCOSITY TESTER Jack Root M.D. LAB HISTORICAL ORDERS Performing Organization Address City/State/ZIP Code Phon e Number POWERCHART (ABNORMAL) Urinalysis, Complete, Includes Microscopic (11/18/2014 1:44 PM VISCOSITY TESTER) [facility] gist Method Time Signature Protein, Ur, Trace Negative POWERCHART Dip MGDL HXUr Color Yellow Colorless POWERCHART Glucose Negative Negative POWERCHART MGDL HXBILIRUBIN Negative Negative POWERCHART Ketones, QL(U) Negative Negative POWERCHART MGDL Specific 1.020 POWERCHART [place], POCT, U Clarity Cloudy (A) Clear POWERCHART [...] Laterality Urine, First 11/18/2014 1:44 PM Voided VISCOSITY TESTER Jack Root M.D. LAB URINE ORDERABLES Performing Organization Address City/State/[facility] Code Phon e Number POWERCHART documented in this encounter Visit Diagnoses Not on filedocumented in this encounter Additional Health Concerns Assessment Noted Time PHQ-9 Depression Total Score: 1 09/16/2014 9:15 AM VISCOSITY TESTER documented as of this encounter
--- OUTSIDE RECORDS SUMMARY | 2022-08-22 14:49 | XMS_ITS | Encounter Summary ---
:1940 Author Organization [facility] Address [address] [place] [address] Care Team Providers Name Role Phone Unavailable Primary Care Provider Unavailable Encounter Details Date Type Department Care Team Description 09/20/2015 Hospital Encounter HX [facility] Aneta Whitaker APRN, C.N.P., M.S.N. [address] [place] [address] (Wo rk) Social History Tobacco Use Types [...] Comments Blood Pressure 121/74 09/20/2015 8:29 AM SOFTWARE DEVELOPMENT LEADER Pulse 72 09/20/2015 8:29 AM SOFTWARE DEVELOPMENT LEADER Temperature - - Respiratory Rate 16 09/20/2015 8:29 AM SOFTWARE DEVELOPMENT LEADER Oxygen Saturation - - Inhaled Oxygen Concentration - - Weight 95.6 kg (210 lb 12.2 oz) 09/20/2015 8:29 AM SOFTWARE DEVELOPMENT LEADER Height 161.8 cm (5' 3.7) 09/20/2015 8:29 AM SOFTWARE DEVELOPMENT LEADER Body Mass Index 36.52 09/20/2015 8:29 AM SOFTWARE DEVELOPMENT LEADER documented in this encounter Medications at Time [...] this encounter H&P Notes Aneta Whitaker APRN, FITTING ROOM MAINTENANCE MECHANIC - 09/20/2015 8:23 AM CST [id number] CHIEF COMPLAINT/REASON FOR VISIT Annual exam. HISTORY OF PRESENT ILLNESS A very pleasant 74-year-old female presents for annual physical exam. She states she is doing very well. Did have recent left knee surgery and states it has been a long haul but she is doing much better. Started working out last month at the gym. She has a service dog trainer and she says since she has [...] ordered for when she returns home from [place] in February. Strongly encouraged her to continue [...] WHITAKER CNP On: 10/18/2015 12:09 PM Source: [facility] MHSDOLBEYNONRADSYS Document Id: [id number] WARE DEVELOPMENT LEADER documented in this encounter Miscellaneous Notes Telephone Encounter - Conversion, Historical Provider Ser - 10/13/2015 9:54 AM CST *Phone Message Document Contains Addenda Addendum by STEPHEN RUBIN LPN on 13 October 2015 11:49:49 SOFTWARE DEVELOPMENT LEADER From: STEPHEN RUBIN LPN ([facility] Nurse) To: ANETA WHITAKER CNP; Sent: 10/13/2015 11:49:49 SOFTWARE DEVELOPMENT LEADER Subject: RE: *Phone Message FYI: Patient states she got a new order for her prednisone by her search analyst in [place]. She states she is feeling congested on [...] this works for her. From: JEREMIAH ELLSWORTH ([facility] Video Tape Editor) [facility] Nurse; Sent: 10/13/2015 09:54:00 SOFTWARE DEVELOPMENT LEADER Subject: *Phone Message Caller is: ( x) [...] not better. Should she keep taking it? [phone] Message: Advice/Action: Source used: ( ) Verbalizes [...] back cell phone number ( ) Source: [facility] POWERCHART Document Id: [id number] Miscellaneous - Aneta Whitaker APRN, FITTING ROOM MAINTENANCE MECHANIC - 09/27/2015 10:18 AM SOFTWARE DEVELOPMENT LEADER Lab results Document Contains Addenda Addendum by STEPHEN RUBIN LPN on 27 September 2015 14:02:41 SOFTWARE DEVELOPMENT LEADER Patient is aware and she is making an appointment at this time. From: ANETA WHITAKER CNP To: DAVID Pascual [facility] Medicine Nurse; Sent: 09/27/2015 10:18:33 SOFTWARE DEVELOPMENT LEADER Subject: Lab results If possible please have patient follow up regarding labs. Prediabetic. Thank you. Source: [facility] InSite Vision Document Id: [id number] James - Stephen Rubin L.P.NAntwan - 09/20/2015 8:43 AM CST PHQ-9 PHQ-9 Entered On: 09/20/2015 8:43 SOFTWARE DEVELOPMENT LEADER Performed On: 09/20/2015 8:43 SOFTWARE DEVELOPMENT LEADER by STEPHEN RUBIN LPN PHQ-9 Little interest [...] all STEPHEN RUBIN LPN - 09/20/2015 8:43 SOFTWARE DEVELOPMENT LEADER Source: [facility] [employer] Document Id: [id number] SOFTWARE DEVELOPMENT LEADER!13 WARE DEVELOPMENT LEADER Amandacellavani - Stephen Rubin L.P.NAntwan - 09/20/2015 8:29 AM CST Adult Belt Polisher Intake/History Adult Belt Polisher Intake/History Entered On: 09/20/2015 8:33 SOFTWARE DEVELOPMENT LEADER Performed On: 09/20/2015 8:29 SOFTWARE DEVELOPMENT LEADER by STEPHEN RUBIN LPN Intake Chief Complaint [...] kg/m2 STEPHEN RUBIN LPN - 09/20/2015 8:29 SOFTWARE DEVELOPMENT LEADER General Info Information Given By : Patient Preferred Communication Mode : Verbal Languages : Luxembourger Is Patient Female and 13-50 no hysterectomy : No STEPHEN RUBIN LPN - 09/20/2015 8:29 SOFTWARE DEVELOPMENT LEADER Subjective Pain Symptoms : Yes STEPHEN RUBIN LPN - 09/20/2015 8:29 SOFTWARE DEVELOPMENT LEADER Pain Scale Pain Scale Verbal 0-10 : Open STEPHEN RUBIN LPN - 09/20/2015 8:29 SOFTWARE DEVELOPMENT LEADER Pain Pain Assessment Grid Pain 1 Location : Wrist Laterality : Left Intensity : 7 Duration : 1 day STEPHEN RUBIN LPN - 09/20/2015 8:29 SOFTWARE DEVELOPMENT LEADER Dependent Habits Exposure to Tobacco Smoke : Other: Never Smoked Smoking Status : Never smoker Tobacco 2A : No Alcohol Use : Yes STEPHEN RUBIN LPN - 09/20/2015 8:29 SOFTWARE DEVELOPMENT LEADER Caffeine Use Grid Caffeine Use : Current Type : Soft drinks Frequency : Daily Amount : 1 can diet soda Last Use : 09/19/15 STEPHEN RUBIN LPN - 09/20/2015 8:29 SOFTWARE DEVELOPMENT LEADER Recreational Drug Use Grid Drug Use : None STEPHEN RUBIN LPN - 09/20/2015 8:29 SOFTWARE DEVELOPMENT LEADER [facility] POWERCHART Document Id: [id number] SOFTWARE DEVELOPMENT LEADER!48 WARE DEVELOPMENT LEADER Miscellaneous - Stephen Rubin L.P.N. - 09/20/2015 8:29 AM CST Health Assessment Health Assessment Entered On: 09/20/2015 8:35 SOFTWARE DEVELOPMENT LEADER Performed On: 09/20/2015 8:29 SOFTWARE DEVELOPMENT LEADER by STEPHEN RUBIN LPN Health Assessment Complete Health Assessment Complete or Modified : Annual Health Assessment Annual Health Assessment Completed : Yes STEPHEN RUBIN LPN - 09/20/2015 8:29 SOFTWARE DEVELOPMENT LEADER Nutrition Nutrition Risk Factors by History Adult : None STEPHEN RUBIN LPN - 09/20/2015 8:29 SOFTWARE DEVELOPMENT LEADER Functional Current Daily Living Assistance : None Mobility Assistance Prior to Admission : Independent STEPHEN RUBIN LPN - 09/20/2015 8:29 SOFTWARE DEVELOPMENT LEADER Dependent Habits Exposure to Tobacco Smoke : Other: Never Smoked Smoking Status : Never smoker Tobacco 2A : No STEPHEN RUBIN LPN - 09/20/2015 8:29 SOFTWARE DEVELOPMENT LEADER Caffeine Use Grid Caffeine Use : Current Type : Soft drinks Frequency : Daily Amount : 1 can diet soda Last Use : 09/19/15 STEPHEN RUBIN LPN - 09/20/2015 8:29 SOFTWARE DEVELOPMENT LEADER Alcohol Use : Yes STEPHEN RUBIN LPN - 09/20/2015 8:29 SOFTWARE DEVELOPMENT LEADER Recreational Drug Use Grid Drug Use : None STEPHEN RUBIN LPN - 09/20/2015 8:29 SOFTWARE DEVELOPMENT LEADER AUDIT Tool How Often Do You Have A Drink : Monthly or less How Many Drinks in a Day When Drinking : 1 or 2 Six or More Drinks On One Occassion : Never Audit Phase 1 Score : 1 STEPHEN RUBIN LPN 09/20/2015 8:29 SOFTWARE DEVELOPMENT LEADER Psychosocial Domestic Abuse Concerns : None Marital Status : Behavioral Health Screen/Safety Assmt : No Education : High School Graduate [employer] Preference : STEPHEN Castellanos LPN - 09/20/2015 8:29 SOFTWARE DEVELOPMENT LEADER Advance Directive Advanced Directives : No Advance Directive Additional Information : No STEPHEN RUBIN LPN - 09/20/2015 8:29 SOFTWARE DEVELOPMENT LEADER Educ Needs Learning Style Preference Adult Grid Patient : Printed materials, Verbal explanation Family : None STEPHEN RUBIN LPN 09/20/2015 8:29 SOFTWARE DEVELOPMENT LEADER Source: [facility] POWERCHART Document Id: [id number] SOFTWARE DEVELOPMENT LEADER!42 WARE DEVELOPMENT LEADER documented in this encounter Plan of Treatment Upcoming Encounters Date Type Specialty Care Team Description 08/24/2022 Appointment Radiation Oncology Rickey Brary M.D. [address] [place] [phone] (Wo rk) documented as of this encounter Procedures Procedure Name Priority Date/Time Associated Comments Diagnosis BACTERIAL CULTURE, Routine 09/20/2015 10:14 Resul ts for this AEROBIC, URINE AM SOFTWARE DEVELOPMENT LEADER procedure are in the results section. URINALYSIS, MIDSTREAM, Routine 09/20/2015 10:11 R esults for this WITH CULTURE IF AM SOFTWARE DEVELOPMENT LEADER procedure ar e in INDICATED the results section. LIPID PANEL, S Routine 09/20/2015 9:10 AM Results for this SOFTWARE DEVELOPMENT LEADER procedure are i n the results section. VITAMIN B12 AND Routine 09/20/2015 9:10 AM Result s for this FOLATE, S SOFTWARE DEVELOPMENT LEADER procedure are i n the results section. AUTOMATED Routine 09/20/2015 9:10 AM Results f or this DIFFERENTIAL, B SOFTWARE DEVELOPMENT LEADER procedure ar e in the results section. 25-HYDROXYVITAMIN D2 Routine 09/20/2015 9:10 AM R esults for this AND D3, S SOFTWARE DEVELOPMENT LEADER procedure are i n the results section. CBC WITH DIFFERENTIAL, Routine 09/20/2015 9:10 AM Results for this B SOFTWARE DEVELOPMENT LEADER procedure are i n the results section. THYROID-STIMULATING Routine 09/20/2015 9:10 AM Re sults for this HORMONE-SENSITIVE SOFTWARE DEVELOPMENT LEADER procedure are in (S-TSH) the results section. HEMOGLOBIN A1C, B Routine 09/20/2015 9:10 AM Resu lts for this SOFTWARE DEVELOPMENT LEADER procedure are i n the results section. COMPREHENSIVE Routine 09/20/2015 9:10 AM Results for this METABOLIC PANEL, S/P SOFTWARE DEVELOPMENT LEADER procedu re are in the results section. documented in this encounter Results Bacterial Culture, Aerobic, Urine (09/20/2015 10:14 AM SOFTWARE DEVELOPMENT LEADER) Analysis Performed At Patho logist Time Signature Bacterial POWERCHART Culture, Aerobic, Urine HXFinal No growth POWERCHART Specimen Anatomical Collection Method Collection Time Receive d Time (Source) Location / / Volume Laterality Urine, First 09/20/2015 10:14 09/20/2015 Voided AM SOFTWARE DEVELOPMENT LEADER 10:14 AM SOFTWARE DEVELOPMENT LEADER Aneta Whitaker APRN, C.N.P., M.S.N. LAB MICROB IOLOGY - GENERAL ORDERABLES Performing Organization Address City/[facility]/ZIP Code Phon e Number POWERCHART (ABNORMAL) Urinalysis, Midstream, with culture if indicated (09/20/2015 10:11 AM SOFTWARE DEVELOPMENT LEADER) [facility] gist Method Time Signature Clarity Clear POWERCHART HXUr Color Yellow POWERCHART Specific 1.015 POWERCHART [place], POCT, U pH, POCT, Urine 7.0 POWERCHART [...] Laterality Urine, First 09/20/2015 10:11 Voided AM SOFTWARE DEVELOPMENT LEADER Victor Hugo Renteria APRNNAvtar, M.S.N. LAB URINE ORDERABLES Performing Organization Address [facility] Phon e Number POWERCHART Automated Differential (09/20/2015 9:10 AM SOFTWARE DEVELOPMENT LEADER) athologist Signature Absolute 3.76 1.70 - POWERCHART Neutrophils 7.00 109L Lymphocytes 1.82 0.90 - POWERCHART 2.90 X109L Monocytes 0.47 0.30 - POWERCHART 0.90 X109L Eosinophils 0.16 0.05 - POWERCHART 0.50 X109L Absolute 0.02 0.00 - POWERCHART Basophil 0.30 X109L Specimen Anatomical Collection Method Collection Time Receive d Time (Source) Location / / Volume Laterality Blood 09/20/2015 9:10 AM 5 9:10 SOFTWARE DEVELOPMENT LEADER AM SOFTWARE DEVELOPMENT LEADER Abelardo Renteria APRN.N.PAntwan, M.S.N. LAB BLOOD ADD-ON Performing Organization Address City/[facility]/ZIP Code Phon e Number POWERCHART CBC with Differential (09/20/2015 9:10 AM SOFTWARE DEVELOPMENT LEADER) athologist Signature Leukocytes 6.2 3.4 - 10.5 POWERCHART X109L Erythrocytes 4.50 3.90 - 5.03 POWERCHART [id number] Hemoglobin 12.4 12.0 - 15.5 POWERCHART GDL Hematocrit 39.4 34.9 - 44.5 POWERCHART MCV 87.6 82.0 - 98.0 POWERCHART FL HX RDW 14.8 11.9 - 15.5 POWERCHART Platelet Count 315 150 - 450 POWERCHART X109L Specimen (Source) Anatomical Collection Method Collection Time Re ceived Time Location / / Volume Laterality Blood 09/20/2015 9:10 AM SOFTWARE DEVELOPMENT LEADER Aneta Whitaker APRN, C.N.P., M.S.N. LAB BLOOD ADD-ON Performing Organization Address City/[facility] Code Phon e Number POWERCHART 25-Hydroxyvitamin D2 and D3 (09/20/2015 9:10 AM SOFTWARE DEVELOPMENT LEADER) athologist Signature HX25 HYDROXY D2 <4.0 NGML POWERCHART 25-Hydroxy D3 30 NGML POWERCHART Vitamin D, S 30 NGML POWERCHART Comment: REFERENCE VALUE------ 25-HYDROXY D TOTAL (D2+D3) Optimum level s in the healthy population are 20-50, patients with bone disease may benefit from higher levels within this r anh. Test Performed by: [place] [address] Log Deck Tender: Hermes Lees II, M.D., Ph.D. Specimen (Source) Anatomical Collection Method Collection Time Re ceived Time Location / / Volume Laterality Blood 09/20/2015 9:10 AM SOFTWARE DEVELOPMENT LEADER Aneta Whitaker APRN, C.N.P., M.S.N. LAB BLOOD ADD-ON Performing Organization Address City/State/ZIP Code Phon e Number POWERCHART Vitamin B12 Level and Folate (09/20/2015 9:10 AM SOFTWARE DEVELOPMENT LEADER) athologist Signature Vitamin B12 245 180 - 914 POWERCHART Assay, S NGL Folate, S 10.9 >=4.0 NGML POWERCHART Specimen (Source) Anatomical Collection Method Collection Time Re ceived Time Location / / Volume Laterality Blood 09/20/2015 9:10 AM SOFTWARE DEVELOPMENT LEADER Aneta Rodriguez Sherman BYNUM C.N.P., M.S.N. LAB BLOOD NON ADD-ON Performing Organization Address City/State/ZIP Code Phon e Number POWERCHART (ABNORMAL) Lipid Panel (09/20/2015 9:10 AM SOFTWARE DEVELOPMENT LEADER) P athologist Signature Calculated LDL 96 <=129 [...] for FH and FDB is available [facility]: FH/ADH Genetic Reflex Gan [...] at or the on-line test catalog at [employer] for information about how to order these [...] mg/dL Triglycerides 146 <=149 MGDL POWERCHART Comment: 2014 National Lipid [...] / Volume Laterality Blood 09/20/2015 9:10 AM SOFTWARE DEVELOPMENT LEADER Aneta Whitaker APRN, C.N.P., M.S.N. LAB BLOOD ADD-ON Performing Organization Address City/State/ZIP Code Phon e Number POWERCHART Thyroid-Stimulating Hormone-Sensitive (s-TSH) (09/20/2015 9:10 AM SOFTWARE DEVELOPMENT LEADER) P athologist Signature TSH 2.68 0.27 - 4.20 POWERCHART (Thyrotropin) MIUL Specimen (Source) Anatomical Collection Method Collection Time Re ceived Time Location / / Volume Laterality Blood 09/20/2015 9:10 AM SOFTWARE DEVELOPMENT LEADER Aneta Whitaker APRN C.N.P., M.S.N. LAB BLOOD ADD-ON Performing Organization Address City/State/ZIP Code Phon e Number POWERCHART (ABNORMAL) Hemoglobin A1c (09/20/2015 9:10 AM SOFTWARE DEVELOPMENT LEADER) P athologist Signature Hemoglobin A1c, 6.1 (H) <=5.6 A1C POWERCHART B Specimen (Source) Anatomical Collection Method Collection Time Re ceived Time Location / / Volume Laterality Blood 09/20/2015 9:10 AM SOFTWARE DEVELOPMENT LEADER Victor Hugo Renteria APRNN.Amanda., M.S.N. LAB BLOOD ADD-ON Performing Organization Address City/State/ZIP Code Phon e Number POWERCHART (ABNORMAL) CMP (Comprehensive Metabolic Panel) (09/20/2015 9:10 AM SOFTWARE DEVELOPMENT LEADER) Patholo gist Method Time Signature Anion Gap [...] POWERCHART GDL HXeGFR (MDRD) >60 >=60 POWERCHART [id number] 2 eGFR Black/ >60 >=60 POWERCHART [place]ian [id number] 2 Specimen (Source) Anatomical Collection Method Collection Time Re ceived Time Location / / Volume Laterality Blood 09/20/2015 9:10 AM SOFTWARE DEVELOPMENT LEADER Abelardo Renteria APRN.N.P., M.S.N. LAB BLOOD ADD-ON Performing Organization Address City/State/ZIP Code Phon e Number POWERCHART documented in this encounter Visit Diagnoses Not on filedocumented in this encounter Additional Health Concerns Assessment Noted Time PHQ-9 Depression Total Score: 1 09/20/2015 8:43 AM SOFTWARE DEVELOPMENT LEADER documented as of this encounter
--- OUTSIDE RECORDS SUMMARY | 2022-08-22 14:49 | XMS_ITS | Encounter Summary ---
:1940 Author Organization [facility] Address [address] [place] [address] Care Team Providers Name Role Phone Unavailable Primary Care Provider Unavailable Encounter Details Date Type Department Care Team Description 11/18/2014 Hospital Encounter HX NO MAPPING Anabella Root M.D. [address] [place], [place] [phone] (Wo rk) Social History [...] Historical Provider Ser - 11/18/2014 11:59 PM JACK SPOOLER TENDER Coding Summary-Paper Based CODING DATE: 11/25/2014 FINAL [facility] STATUS: * Discharged to Home or Self [...] WHITMORE Date Saved: 11/25/2014 07:58 pm Source: [facility] POWERCHART Document Id: [id number] documented in this encounter Plan of Treatment Upcoming Encounters Date Type Specialty Care Team Description 08/24/2022 Appointment Radiation Oncology Rickey Barry M.D. [address] [place], [place] [phone] (Wo rk) documented as of this encounter Visit Diagnoses Not on filedocumented in this encounter Additional Health Concerns Assessment Noted Time PHQ-9 Depression Total Score: 1 09/16/2014 9:15 AM JACK SPOOLER TENDER documented as of this encounter
--- OUTSIDE RECORDS SUMMARY | 2022-08-22 14:49 | XMS_ITS | Encounter Summary ---
:1940 Author Organization [facility] Address [address] [place] [address] Care Team Providers Name Role Phone Unavailable Primary Care Provider Unavailable Encounter Details Date Type Department Care Team Description 10/24/2015 Hospital Encounter HX [facility] Luca Orona APRN, C.N.P., M. S.N. [address] [place], [place] [phone] (Wo rk) Social History [...] Radiation Oncology Rickey Barry M.D. [address] [place], [place] [phone] (Wo rk) documented as of this encounter Procedures Procedure Name Priority Date/Time Associated Diagnosis Comme nts DX CHEST AP OR PA Routine 10/24/2015 9:54 AM Resu lts for this AND LATERAL 2 VIEWS DIRECTOR MOBILE procedur e are in the results section. documented in this encounter Results DX Chest Anterior Posterior or Posterior Anterior and Lateral 2 Views (10/24/2015 9:54 AM DIRECTOR MOBILE) Anatomical Region Laterality Modality Chest N/A Radiographic Imaging Specimen (Source) Anatomical Collection Method Collection Time Re ceived Time Location / / Volume Laterality 10/24/2015 9:54 AM DIRECTOR MOBILE Addenda Addendum by Provider, Cristiana Marino 10/24/2015 9:54 AM DIRECTOR MOBILE RAD^^^OW XR Chest 2 Views 10/24/2015 09:54:36 Impressions 10/24/2015 10:32 AM DIRECTOR MOBILE No change. No focal consolidation or pleural effusion. Cardiac silhouette and pulmonary vascula rity are within the limits of normal. Narrative 10/24/2015 10:32 AM DIRECTOR MOBILE EXAM: XR Chest 2 Views INDICATION: Hx [...] Depression Total Score: 1 09/20/2015 8:43 AM DIRECTOR MOBILE documented as of this encounter
--- OUTSIDE RECORDS SUMMARY | 2022-08-22 14:49 | XMS_ITS | Encounter Summary ---
:1940 Author Organization [facility] Address [address] [place] [address] Care Team Providers Name Role Phone Unavailable Primary Care Provider Unavailable Encounter Details Date Type Department Care Team Description 10/16/2016 Hospital Encounter HX [facility] Delbert Whitaker APRN, C.N.P., M.S.N. [address] [place] [address] (Wo rk) Social History Tobacco Use Types [...] Comments Blood Pressure 138/68 10/16/2016 2:24 PM RETAIL EVENT ASSISTANT Pulse 68 10/16/2016 2:24 PM RETAIL EVENT ASSISTANT Temperature - - Respiratory Rate 16 10/16/2016 2:24 PM RETAIL EVENT ASSISTANT Oxygen Saturation - - Inhaled Oxygen Concentration - - Weight 96.9 kg (213 lb 10 oz) 10/16/2016 2:24 PM RETAIL EVENT ASSISTANT Height - - Body Mass Index 37.52 09/21/2016 10:28 AM RETAIL EVENT ASSISTANT documented in this encounter Medications at [...] encounter Progress Notes Sherman, Delbert Rodriguez APRN, BIODIESEL PLANT SUPERINTENDENT - 10/16/2016 2:01 PM CST [id number] CHIEF COMPLAINT/REASON FOR VISIT Right ingrown toenail [...] WHITAKER CNP On: 10/29/2016 05:17 PM Source: [facility] MHSDOLRAYMOND Document Id: [id number] [place] EVENT ASSISTANT documented in this encounter Miscellaneous Notes Miscellaneous - Joshua Rubin L.P.N. - 10/16/2016 2:24 PM CST Adult Music Education Adjunct Professor Intake/History Adult Music Education Adjunct Professor Intake/History Entered On: 10/16/2016 14:27 RETAIL EVENT ASSISTANT Performed On: 10/16/2016 14:24 RETAIL EVENT ASSISTANT by JOSHUA RUBIN LPN Intake Chief [...] kg JOSHUA RUBIN LPN - 10/16/2016 14:24 RETAIL EVENT ASSISTANT General Info Information Given By : Patient Preferred Communication Mode : Verbal Languages : Faroese Is Patient Female and 13-50 no hysterectomy : No JOSHUA RUBIN LPN - 10/16/2016 14:24 RETAIL EVENT ASSISTANT Subjective Pain Symptoms : No (Comment: states yes when she bumps it. [JOSHUA RUBIN LPN - 10/16/2016 14:24 RETAIL EVENT ASSISTANT] ) JOSHUA RUBIN LPN - 10/16/2016 14:24 RETAIL EVENT ASSISTANT Dependent Habits Exposure to Tobacco Smoke : Other: Never Smoked Smoking Status : Never smoker Tobacco 2A : No Tobacco Use/Currently Using : No Tobacco Use/Last 30 Days : No Tobacco Use/Last 12 months : No Alcohol Use : No JOSHUA RUBIN LPN - 10/16/2016 14:24 RETAIL EVENT ASSISTANT Caffeine Use Grid Caffeine Use : Current Type : Soft drinks Frequency : Daily Amount : 1 can diet soda Last Use : 10/16/2016 JOSHUA RUBIN LPN - 10/16/2016 14:24 RETAIL EVENT ASSISTANT Recreational Drug Use Grid Drug Use : None JOSHUA RUBIN LPN - 10/16/2016 14:24 RETAIL EVENT ASSISTANT Source: [facility] POWERCHART Document Id: [id number] RETAIL EVENT ASSISTANT!39 [place] EVENT ASSISTANT documented in this encounter Plan of Treatment Upcoming Encounters Date Type Specialty Care Team Description 08/24/2022 Appointment Radiation Oncology Rickey Barry M.D. [address] [place] [phone] (Wo rk) documented as of this encounter Visit Diagnoses Not on filedocumented in this encounter
--- OUTSIDE RECORDS SUMMARY | 2022-08-22 14:49 | XMS_ITS | Encounter Summary ---
:1940 Author Organization [facility] Address [address] [place] [address] Care Team Providers Name Role Phone Unavailable Primary Care Provider Unavailable Encounter Details Date Type Department Care Team Description 03/13/2016 Hospital Encounter HX [facility]ILY[facility]A Aneta Whitaker APRN, C.N.P., M.S.N. [address] [place] [phone] (Wo rk) Social History Tobacco Use Types [...] encounter Progress Notes Sherman, Aneta Rodriguez, MISA, COATING MIXER TENDER - 03/13/2016 8:31 AM CDT [id number] CHIEF COMPLAINT/REASON FOR VISIT Low back pain [...] has worked well for her arthritis in [facility] was Tylenol Arthritis. She does not take [...] Diaz -C./tello Electronically Signed By: ANETA WHITAKER [facility] On: 04/03/2016 11:12 AM Source: [facility] MHSDOLBEYNONRADSYS Document Id: [id number] documented in this encounter Miscellaneous Notes Miscellaneous - Stephen Rubin, LAntwanPAntwanNAntwan - 03/13/2016 8:44 AM CDT Adult Cripple Worker Intake/History Adult Cripple Worker Intake/History Entered On: 03/13/2016 8:47 CDT Performed [...] RUBIN LPN - 03/13/2016 8:44 CDT Source: [employer] Document Id: [id number] CDT!49 Miscellaneous - Stephen Rubin, L.P.N. - [...] RUBIN LPN - 03/13/2016 8:44 CDT Source: [facility] [employer] Document Id: [id number] CDT!13 documented in this encounter Plan of Treatment Upcoming Encounters Date Type Specialty Care Team Description 08/24/2022 Appointment Radiation Oncology Rickey Barry M.D. [address] [place] [phone] (Wo rk) documented as of this encounter Visit Diagnoses Not on filedocumented in this encounter
--- OUTSIDE RECORDS SUMMARY | 2022-08-22 14:49 | XMS_ITS | Encounter Summary ---
:1940 Author Organization [facility] Address [address] [place] [address] Care Team Providers Name Role Phone Unavailable Primary Care Provider Unavailable Encounter Details Date Type Department Care Team Description 09/13/2016 Hospital Encounter HX [facility] Whitaker, Cecily Rodriguez, MISA, C.N.P., M. S.N. [address] [place], [place] [phone] (Wo rk) Social History [...] Radiation Oncology Rickey Barry M.D. [address] [place], [place] [phone] (Wo rk) documented as of this encounter Procedures Procedure Name Priority Date/Time Associated Comments Diagnosis BACTERIAL CULTURE, Routine 09/13/2016 11:47 Resul ts for this AEROBIC, URINE AM GANG SAW OPERATOR procedure are in the results section. URINALYSIS, MIDSTREAM, Routine 09/13/2016 11:43 R esults for this WITH CULTURE IF AM GANG SAW OPERATOR procedure ar e in INDICATED the results section. LIPID PANEL, S Routine 09/13/2016 8:26 AM Results for this GANG SAW OPERATOR procedure are i n the results section. VITAMIN B12 AND Routine 09/13/2016 8:26 AM Result s for this FOLATE, S GANG SAW OPERATOR procedure are i n the results section. AUTOMATED Routine 09/13/2016 8:26 AM Results f or this DIFFERENTIAL, B GANG SAW OPERATOR procedure ar e in the results section. 25-HYDROXYVITAMIN D2 Routine 09/13/2016 8:26 AM R esults for this AND D3, S GANG SAW OPERATOR procedure are i n the results section. CBC WITH DIFFERENTIAL, Routine 09/13/2016 8:26 AM Results for this B GANG SAW OPERATOR procedure are i n the results section. THYROID-STIMULATING Routine 09/13/2016 8:26 AM Re sults for this HORMONE-SENSITIVE GANG SAW OPERATOR procedure are in (S-TSH) the results section. COMPREHENSIVE Routine 09/13/2016 8:26 AM Results for this METABOLIC PANEL, S/P GANG SAW OPERATOR procedu re are in the results section. documented in this encounter Results (ABNORMAL) Bacterial Culture, Aerobic, Urine (09/13/2016 11:47 AM GANG SAW OPERATOR) [facility] gist Method Time Signature Bacterial STASIM <=0.5 POWERCHART Culture, (POSITIVE) Aerobic, Urine HXPre STASIM POWERCHART Comment: >100,000 cfu/mL Staphylococcus simulans HXFinal STASIM POWERCHART Comment: >100,000 cfu/mL Staphylococcus simulans Specimen Anatomical Collection Method Collection Time Receive d Time (Source) Location / / Volume Laterality Urine, First 09/13/2016 11:47 09/13/2016 Voided AM GANG SAW OPERATOR 11:47 AM GANG SAW OPERATOR Organism Antibiotic Method Susceptibility Staphylococcus simulans [...] S usceptible ALEJANDRA (MCG/ML) Victor Hugo Renteria APRNNAvtar, M.S.N. LAB MICROB IOLOGY - GENERAL ORDERABLES Performing Organization Address [facility] Phon e Number POWERCHART (ABNORMAL) Urinalysis, Midstream, with culture if indicated (09/13/2016 11:43 AM GANG SAW OPERATOR) [facility] gist Method Time Signature HXUr Color Yellow POWERCHART Clarity Slightly POWERCHART Cloudy (A) Glucose Negative MGDL POWERCHART HXBILIRUBIN Negative POWERCHART Ketones, QL(U) Negative Negative POWERCHART MGDL Specific 1.020 POWERCHART [place], POCT, U Comment: Reference Range Specific [place]: 1.000-1.035 HXBLOOD Negative POWERCHART pH, POCT, Urine [...] Laterality Urine, First 09/13/2016 11:43 Voided AM GANG SAW OPERATOR Abelardo Renteria APRN.N.Lizabeth, M.S.N. LAB URINE ORDERABLES Performing Organization Address [facility] Phon e Number POWERCHART Automated Differential (09/13/2016 8:26 AM GANG SAW OPERATOR) athologist Signature Absolute 3.50 1.70 - POWERCHART Neutrophils 7.00 109L Lymphocytes 2.21 0.90 - POWERCHART 2.90 X109L Monocytes 0.51 0.30 - POWERCHART 0.90 X109L Eosinophils 0.12 0.05 - POWERCHART 0.50 X109L Absolute 0.03 0.00 - POWERCHART Basophil 0.30 X109L Specimen Anatomical Collection Method Collection Time Receive d Time (Source) Location / / Volume Laterality Blood 09/13/2016 8:26 AM 6 8:26 GANG SAW OPERATOR AM GANG SAW OPERATOR Aneta Whitaker APRN, C.N.P., M.S.N. LAB BLOOD ADD-ON Performing Organization Address City/[facility] Code Phon e Number POWERCHART CBC with Differential (09/13/2016 8:26 AM GANG SAW OPERATOR) athologist Signature Leukocytes 6.4 3.4 - 10.5 POWERCHART X109L Erythrocytes 4.20 3.90 - POWERCHART 5.03 [id number] Hemoglobin 12.0 12.0 - POWERCHART 15.5 GDL Hematocrit 36.7 34.9 - POWERCHART 44.5 MCV 87.4 82.0 - POWERCHART 98.0 FL HX RDW 14.9 11.9 - POWERCHART 15.5 Platelet Count 306 150 - 450 POWERCHART X109L HXDifferential? Auto POWERCHART Specimen (Source) Anatomical Collection Method Collection Time Re ceived Time Location / / Volume Laterality Blood 09/13/2016 8:26 AM GANG SAW OPERATOR Victor Hugo Renteria APRNNAntwanP., M.S.N. LAB BLOOD ADD-ON Performing Organization Address City/[facility] Phon e Number POWERCHART 25-Hydroxyvitamin D2 and D3 (09/13/2016 8:26 AM GANG SAW OPERATOR) athologist Signature HX25 HYDROXY D2 <4.0 [...] performa nce characteristics determined by [facility] in a manner co nsistent with CLIA requirements. This test has not been lolis ared or approved by the U.S. Food and Drug Administration. Test Performed by: [facility] [address] [address] Entry Specialist: Hermes Lees II, M.D., Ph.D. Specimen (Source) Anatomical Collection Method Collection Time Re ceived Time Location / / Volume Laterality Blood 09/13/2016 8:26 AM GANG SAW OPERATOR Aneta Whitaker APRN, C.N.P., M.S.N. LAB BLOOD ADD-ON Performing Organization Address City/State/ZIP Code Phon e Number POWERCHART Vitamin B12 Level and Folate (09/13/2016 8:26 AM GANG SAW OPERATOR) athologist Signature Vitamin B12 289 180 - 914 POWERCHART Assay, S NGL Comment: Biotin has been identified [facility] as a potential interfering substance. Higher concentrations of biotin may be found in multivitamins, hair/nail supplements, and workout supplements. If the result does not match clinical observat ions, repeat testing after patient refrains from the use of supplements for at least 12 hours. Folate, S 11.7 >=4.6 MCGL POWERCHART Comment: Biotin has been identified by the [facility] as a potential interfering substance. [...] / Volume Laterality Blood 09/13/2016 8:26 AM GANG SAW OPERATOR Aneta Whitaker APRN, C.N.P., M.S.N. LAB BLOOD NON ADD-ON Performing Organization Address City/State/ZIP Code Phon e Number POWERCHART Thyroid-Stimulating Hormone-Sensitive (s-TSH) (09/13/2016 8:26 AM GANG SAW OPERATOR) P athologist Signature TSH 1.33 0.27 - 4.20 POWERCHART (Thyrotropin) MIUL Comment: Biotin has been identified by the lopez cturer as a potential interfering substance. Higher concentrations of biotin may be found in multivitamins, hair/nail supplements, and workout supplements. If the result does not match clinical observat ions, repeat testing after patient refrains from the use of supplements for at least 12 hours. Specimen (Source) Anatomical Collection Method Collection Time Re ceived Time Location / / Volume Laterality Blood 09/13/2016 8:26 AM GANG SAW OPERATOR Aneta Whitaker APRN C.N.P., M.S.N. LAB BLOOD ADD-ON Performing Organization Address City/State/ZIP Code Phon e Number POWERCHART (ABNORMAL) Lipid Panel (09/13/2016 8:26 AM GANG SAW OPERATOR) P athologist Signature Cholesterol, 152 <=199 [...] Calculated LDL 85 <=129 MGDL POWERCHART Comment: 2014 National Lipid [...] for FH and FDB is available maxim [facility]: FH/ADH Genetic Reflex Gan [...] at or the on-line test catalog at [employer] for information about how to order these ghada ts or to speak with a genetic counselor. Further interpretation would require clinical information. Total Cholesterol/HDL Ratio 3.00 PO WERCHART HXLDL/HDL 2 POWERCHART Specimen (Source) Anatomical Collection Method Collection Time Re ceived Time Location / / Volume Laterality Blood 09/13/2016 8:26 AM GANG SAW OPERATOR Aneta Whitaker APRN, C.N.P., M.S.N. LAB BLOOD ADD-ON Performing Organization Address City/State/ZIP Code Phon e Number POWERCHART (ABNORMAL) CMP (Comprehensive Metabolic Panel) (09/13/2016 8:26 AM GANG SAW OPERATOR) [facility] Method Time Signature Alanine 20 7 - [...] POWERCHART MMOLL HXeGFR (MDRD) >60 >=60 POWERCHART [id number] 2 eGFR Black/ >60 >=60 POWERCHART Egyptian [id number] 2 Bilirubin, Total, S 0.5 <=1.2 POWERCHART MGDL Total Protein, S 7.1 6.4 - 8.3 POWERCHART GDL Specimen (Source) Anatomical Collection Method Collection Time Re ceived Time Location / / Volume Laterality Blood 09/13/2016 8:26 AM GANG SAW OPERATOR Aneta Whitaker APRN, C.N.P., M.S.N. LAB BLOOD ADD-ON Performing Organization Address City/State/ZIP Code Phon e Number POWERCHART documented in this encounter Visit Diagnoses Not on filedocumented in this encounter
--- OUTSIDE RECORDS SUMMARY | 2022-08-22 14:49 | XMS_ITS | Encounter Summary ---
:1940 Author Organization [facility] Address [address] [place] [address] Care Team Providers Name Role Phone Unavailable Primary Care Provider Unavailable Encounter Details Date Type Department Care Team Description 07/01/2015 Hospital Encounter HX NO MAPPING Aneta Whitaker APRN, C.N.P., M. S.N. [address] [place], [place] [phone] (Wo rk) Social History [...] Coding Summary-Paper Based CODING DATE: 07/12/2015 FINAL [facility] STATUS: * Discharged to Home or [...] VIZCARRA Date Saved: 07/12/2015 01:20 pm [facility] Document Id: [id number] documented in this encounter Plan of Treatment Upcoming Encounters Date Type Specialty Care Team Description 08/24/2022 Appointment Radiation Oncology Rickey Barry M.D. [address] [place], [place] [phone] (Wo rk) documented as of this encounter Visit Diagnoses Not on filedocumented in this encounter Additional Health Concerns Assessment Noted Time PHQ-9 Depression Total Score: 5 07/01/2015 8:48 AM CDT documented as of this encounter
--- OUTSIDE RECORDS SUMMARY | 2022-08-22 14:50 | XMS_ITS | Encounter Summary ---
:1940 Author Organization [facility] Address [address] [place] [address] Care Team Providers Name Role Phone Unavailable Primary Care Provider Unavailable Encounter Details Date Type Department Care Team Description 03/31/2014 Hospital Encounter HX [facility] FAMILYPRA Naomi Parker, MISA, C.N.P., D. N.P. [address] [place], [place] [address] (Wo rk) Social History [...] RUBIN LPN - 03/31/2014 10:56 CDT Source: [facility] POWERCHART Document Id: [id number] CDT!7 Miscellaneous - Joshua Rubin L.P.N. - [...] RUBIN LPN - 03/31/2014 10:55 CDT Source: [employer] Document Id: [id number] [id number] documented in this encounter Plan of Treatment Upcoming Encounters Date Type Specialty Care Team Description 08/24/2022 Appointment Radiation Oncology Rickey Barry M.D. [address] [place], [place] [phone] (Wo rk) documented as of this encounter Visit Diagnoses Not on filedocumented in this encounter
--- OUTSIDE RECORDS SUMMARY | 2022-08-22 14:50 | XMS_ITS | Encounter Summary ---
:1940 Author Organization [facility] Address [address] [place] [address] Care Team Providers Name Role Phone Unavailable Primary Care Provider Unavailable Encounter Details Date Type Department Care Team Description 09/18/2012 Hospital Encounter HX [facility] FAMILYPRA Naomi Parker, MISA, C.N.P., D. N.P. [address] [place], [place] [address] (Wo rk) Social History [...] Comments Blood Pressure 140/70 09/18/2012 8:39 AM CAT SCAN TECH Pulse - - Temperature - - Respiratory [...] TITA CALDWELL On: 09/26/2012 04:33 PM Source: [facility] POWERCHART Document Id: [id number] Conversion, Historical Provider Ser - 09/18/2012 8:35 AM CST Nurse Only Documentation Nurse Only Documentation Entered On: 09/18/2012 8:35 CAT SCAN TECH Performed On: 09/18/2012 8:35 CAT SCAN TECH by TITA CALDWELL Vitalcameron/Ht/Wt Systolic Blood Pressure : 140mmHg Diastolic Blood Pressure : 70mmHg NIBP Mean : 93mmHg BP Location : Right upper extremity Blood Pressure Cuff Size : Regular TITA CALDWELL - 09/18/2012 8:35 CAT SCAN TECH Allergy Allergies (Active) Cats Estimated Onset Date: Unspecified ; Reactions: unknown ; Created By: PHILLIP JARAMILLO MD; Reaction Status: Active ; Category: Other ; Substance: Cats ; Type: Allergy ; Updated By: PHILLIP JARAMILLO; Reviewed Date: 09/12/2012 8:34 CAT SCAN TECH Dust Mite Estimated Onset Date: Unspecified ; Created By: KVNG PAULINO LPN; Reaction Status: Active ; Category: Drug ; Substance: Dust Mite ; Type: Allergy ; Updated By: KVNG PAULINO LPN; Reviewed Date: 09/12/2012 8:34 CAT SCAN TECH prochlorperazine Estimated Onset Date: Unspecified ; Reactions: unknown ; Created By: BRAD JARAMILLO MD; Reaction Status: Active ; Category: Drug ; Substance: prochlorperazine ; Type: Allergy ; Updated By: PHILLIP JARAMILLO MD; Reviewed Date: 09/12/2012 8:34 CAT SCAN TECH Source: [employer] Document Id: [id number] documented in this encounter Miscellaneous Notes Miscellaneous - Conversion, Historical Provider Ser - 09/18/2012 8:39 AM CAT SCAN TECH Ambulatory Vitals Height Weight Ambulatory Vitals Height Weight Entered On: 09/18/2012 8:39 CAT SCAN TECH Performed On: 09/18/2012 8:39 CAT SCAN TECH by TITA CALDWELL/Ht/Wt Systolic Blood Pressure : 140mmHg Diastolic Blood Pressure : 70mmHg NIBP Mean : 93mmHg BP Location : Right upper extremity Blood Pressure Cuff Size : Regular Weight Source : Standing scale TITA CALDWELL - 09/18/2012 8:39 CAT SCAN TECH Source: [facility] POWERCHART Document Id: [id number] documented in this encounter Plan of Treatment Upcoming Encounters Date Type Specialty Care Team Description 08/24/2022 Appointment Radiation Oncology Rickey Barry M.D. [address] [place], [place] [phone] (Wo rk) documented as of this encounter Visit Diagnoses Not on filedocumented in this encounter
--- OUTSIDE RECORDS SUMMARY | 2022-08-22 14:50 | XMS_ITS | Encounter Summary ---
:1940 Author Organization [facility] Address [address] [place] [address] Care Team Providers Name Role Phone Unavailable Primary Care Provider Unavailable Encounter Details Date Type Department Care Team Description 10/15/2014 Hospital Encounter HX [facility] FAMILYPRA Jack Apodaca i, M.D. [address] [place] [address] (Wo rk) Social History Tobacco [...] Comments Blood Pressure 136/76 10/15/2014 11:45 AM CONTENT CHECKER Pulse 72 10/15/2014 11:45 AM CONTENT CHECKER Temperature - - Respiratory Rate 16 10/15/2014 11:45 AM CONTENT CHECKER Oxygen Saturation - - Inhaled Oxygen Concentration - - Weight 96 kg (211 lb 10.3 oz) 10/15/2014 11:45 AM CONTENT CHECKER Height 161 cm (5' 3.39) 10/15/2014 11:45 AM CONTENT CHECKER Body Mass Index 37.04 10/15/2014 11:45 AM CONTENT CHECKER documented in this encounter Medications at Time [...] Luo M.D. - 10/15/2014 11:08 AM CST [id number] CHIEF COMPLAINT/ REASON FOR VISIT Proposed surgery date: 11/02/14 Surgeon: Dr. Nickerson Proposed surgery: Left total knee arthroplasty Location: [facility] HISTORY OF PRESENT ILLNESS Ainsley is a [...] has a grown son. She lives in [place]. FAMILY HISTORY Mother at age 90 of [...] behalf by Selin Holloway, a trained medical apparatus model maker. The creation of this record is based on the scribe's personal observations and the provider's statements to them. This document has been denise cked and approved by the attending provider. Jack Dorman M.D./denis Electronically Signed By: JACK LUO MD On: 11/01/2014 12:08 PM Source: [facility] MHSDOLBEYNONRADSYS Document Id: [id number] ENT CHECKER documented in this encounter Nursing Notes Conversion, Historical Provider Ser - 11/01/2014 3:13 PM CST pre-op Pre-op faxed to [facility]. Electronically Signed By: PRAKASH ACEVEDO On: 11/01/2014 03:14 PM Source: [employer] Document Id: [id number] documented in this encounter Miscellaneous Notes Telephone Encounter - Conversion, Historical Provider Ser - 11/15/2014 10:42 AM CST *Phone Message Document Contains Addenda Addendum by JOE RAZA LPN on 15 November 2014 10:50:59 CONTENT CHECKER will fax after provider fills out and signs order From: JEREMIAH ELLSWORTH (DAV[facility] [employer] Economist) To: DAVID Dorman Nurse; Sent: 11/15/2014 10:42:52 CONTENT CHECKER Subject: *Phone Message Caller is: ( x [...] Any questions she can be reached at [phone] Message: Advice/Action: Source used: ( ) Verbalizes [...] back cell phone number ( ) [facility] Document Id: [id number] Miscellaneous - Jack Luo M.D. - 10/15/2014 8:48 PM CONTENT CHECKER Ambulatory [address] [place] [id number] Visit Information Name: AINSLEY AGUAYO [facility] Number: [id number] Current Date: 10/15/2014 20:48:33 [...] nasal (Flonase 0.05 mg/inh nasal spray) 1 [place](s), Nostrils(Both), once a day hydrochlorothiazide (hydrochlorothiazide 25 [...] appointment detail needed. Your Goals/Additional instructions: Source: [facility] POWERCHART Document Id: [id number] ENT CHECKER Miscellaneous - Jack Luo M.D. - 10/15/2014 8:48 PM CONTENT CHECKER Ambulatory Discharge Medication List [address] [id number] Visit Information Name: GALA AINSLEY HERMAN [facility] Number: [phone] Visit Date: 10/15/2014 20:48:32 [...] nasal (Flonase 0.05 mg/inh nasal spray) 1 [place](s), Nostrils(Both), once a day hydrochlorothiazide (hydrochlorothiazide 25 [...] MD Signed On:15-OCT-2014 20:48:23 Additional Information: Source: [facility] POWERCHART Document Id: [id number] ENT CHECKER Miscellaneous - Conversion, Historical Provider Ser - 10/15/2014 11:45 AM CONTENT CHECKER Adult Correction Officer [employer] Intake/History Adult Correction Officer [facility] Intake/History Entered On: 10/15/2014 11:46 CONTENT CHECKER Performed On: 10/15/2014 11:45 CONTENT CHECKER by JOE RAZA LPN Intake Chief Complaint [...] kg/m2 JOE RAZA LPN - 10/15/2014 11:45 CONTENT CHECKER General Info Information Given By : Patient Languages : Sammarinese Is Patient Female and 13-50 no hysterectomy : No JOE RAZA LPN - 10/15/2014 11:45 CONTENT CHECKER Subjective Pain Symptoms : Yes JOE RAZA LPN - 10/15/2014 11:45 CONTENT CHECKER Pain Scale Pain Scale Verbal 0-10 : Open JOE RAZA LPN - 10/15/2014 11:45 CONTENT CHECKER Pain Pain Assessment Grid Pain 1 Location : Knee Laterality : Left JOE RAZA LPN - 10/15/2014 11:45 CONTENT CHECKER Dependent Habits Tobacco Use/Currently Using : No Exposure to Tobacco Smoke : Other: Never Smoked Smoking Status : Never smoker OJE RAZA ANKUSH - 10/15/2014 11:45 CONTENT CHECKER Caffeine Use Grid Caffeine Use : Current Type : Soft drinks Frequency : Daily Amount : 1 can diet soda Last Use : 09/15/14 JOE RAZA NAVNEET LECHUGA - 10/15/2014 11:45 CONTENT CHECKER Recreational Drug Use Grid Drug Use : None JOE RAZA NAVNEET LECHUGA - 10/15/2014 11:45 CONTENT CHECKER ID Screen Drug Resistant Organism : No Travel Within Last 21 Days : No JOE RAZA NAVNEET LECHUGA - 10/15/2014 11:45 CONTENT CHECKER Source: [employer] Document Id: [id number] CONTENT CHECKER!48 Miscellaneous - Conversion, Historical Provider Ser - 10/15/2014 11:45 AM CONTENT CHECKER Obstructive Sleep Apnea Obstructive Sleep Apnea Entered On: 10/15/2014 11:47 CONTENT CHECKER Performed On: 10/15/2014 11:45 CONTENT CHECKER by JOE RAZA LPN YOGI Screening Known Obstructive Sleep Apnea : No - NOT diagnosed with YOGI OLVIN MICHELLEVAZQUEZJOEANGIE TOTH LPN - 10/15/2014 11:45 CONTENT CHECKER YOGI Assessment Do you have high blood [...] OLVIN MICHELLEVAZQUEZJOEANGIE TOTH LPN - 10/15/2014 11:45 CONTENT CHECKER Source: [employer] Document Id: [id number] CONTENT CHECKER!10 documented in this encounter Plan of Treatment Upcoming Encounters Date Type Specialty Care Team Description 08/24/2022 Appointment Radiation Oncology Rickey Barry M.D. [address] [place] [phone] (Wo rk) documented as of this encounter Procedures Procedure Name Priority Date/Time Associated Diagnosis Comme nts AUTOMATED Routine 10/15/2014 12:36 PM Results for this DIFFERENTIAL, B CONTENT CHECKER procedure ar e in the results section. CBC WITH Routine 10/15/2014 12:36 PM Results for this DIFFERENTIAL, B CONTENT CHECKER procedure ar e in the results section. DX CHEST 1 VIEW Routine 10/15/2014 12:07 PM Resul ts for this CONTENT CHECKER procedure are i n the results section. documented in this encounter Results (ABNORMAL) Automated Differential (10/15/2014 12:36 PM CONTENT CHECKER) Patholo gist Method Time Signature Absolute 4.48 1.70 - POWERCHART Neutrophils 7.00 109L Lymphocytes 3.58 (H) 0.90 - POWERCHART 2.90 X109L Monocytes 0.75 0.30 - POWERCHART 0.90 X109L Eosinophils 0.17 0.05 - POWERCHART 0.50 X109L Absolute 0.05 0.00 - POWERCHART Basophil 0.30 X109L Specimen Anatomical Collection Method Collection Time Receive d Time (Source) Location / / Volume Laterality Blood 10/15/2014 12:36 10/15/2014 PM CONTENT CHECKER 12:36 PM CONTENT CHECKER Jack Root M.D. LAB BLOOD ADD-ON Performing Organization Address City/State/ZIP Code Phon e Number POWERCHART CBC with Differential (10/15/2014 12:36 PM CONTENT CHECKER) P athologist Signature Leukocytes 9.0 3.4 - 10.5 POWERCHART X109L Erythrocytes 4.30 3.90 - POWERCHART 5.03 [id number] Hemoglobin 12.1 12.0 - POWERCHART 15.5 GDL Hematocrit 38.4 34.9 - POWERCHART 44.5 MCV 89.3 82.0 - POWERCHART 98.0 FL Platelet Count 282 150 - 450 POWERCHART X109L HX RDW 14.3 11.9 - POWERCHART 15.5 HXDifferential? Auto POWERCHART Specimen (Source) Anatomical Collection Method Collection Time Re ceived Time Location / / Volume Laterality Blood 10/15/2014 12:36 PM CONTENT CHECKER Jack Root M.D. LAB BLOOD ADD-ON Performing Organization Address City/State/ZIP Code Phon e Number POWERCHART DX Chest 1 View (10/15/2014 12:07 PM CONTENT CHECKER) Anatomical Region Laterality Modality Chest N/A Radiographic Imaging Specimen (Source) Anatomical Collection Method Collection Time Re ceived Time Location / / Volume Laterality 10/15/2014 12:07 PM CONTENT CHECKER Addenda Addendum by Provider, Cristiana Marino o n 10/15/2014 12:07 PM CONTENT CHECKER RAD^^^OW XR Chest 1 view 10/15/2014 12:07:50 Addendum by Provider, Cristiana Marino o n 10/15/2014 12:07 PM CONTENT CHECKER RAD^^^MA XR Chest 1 view 10/15/2014 12:07:50 Impressions 10/15/2014 12:57 PM CONTENT CHECKER Stable chest, no active cardiopulmonary disease. Narrative 10/15/2014 12:57 PM CONTENT CHECKER EXAM: XR Chest 1 view INDICATION: preop [...] chest, no active card iopulmonary disease. Alison Wei R.T.(R), R.T.(R)(M) IMG DIAGNOSTIC IM AGING PROCEDURES documented in this encounter Visit Diagnoses Not on filedocumented in this encounter Additional Health Concerns Assessment Noted Time PHQ-9 Depression Total Score: 1 09/16/2014 9:15 AM CONTENT CHECKER documented as of this encounter
--- OUTSIDE RECORDS SUMMARY | 2022-08-22 14:50 | XMS_ITS | Encounter Summary ---
:1940 Author Organization [facility] Address [address] [place] [address] Care Team Providers Name Role Phone Unavailable Primary Care Provider Unavailable Encounter Details Date Type Department Care Team Description 08/01/2012 Hospital Encounter HX [facility] Naomi Parker, MISA, C.N.P., D. N.P. [address] [place], [place] [address] (Wo rk) Social History [...] APRN, C.N.P. - 08/01/2012 10:28 AM CDT [id number] CHIEF COMPLAINT/REASON FOR VISIT UTI. HISTORY OF [...] pain. Patient also will be traveling to [place] from October 07 to January 05 and is due for her mammogram in October. We have been arranging to have her mammogram completed in [place] while she is snowboarding. Patient will follow [...] SKINNER CNP On: 09/14/2012 08:54 PM Source: [facility] MHSDOLBEYNONRADSYS Document Id: [id number] ADMINISTRATOR documented in this encounter Procedure Notes Duc [...] : Negative Test Strip Lot # : [id number] Test Strip Expiration Date : 05/21/2013 DUC RUCKER - 08/01/2012 11:15 CDT Source: [facility] POWERCHART Document Id: [id number] documented in this encounter Nursing Notes Duc Ling L.PKerrie. - 08/05/2012 4:03 PM CDT Mammo Screening Scheduled 10/20/2012 [facility] Document Contains Addenda Addendum by SE LOPEZ [facility], INBOX [id number] on December 15, 2015 15:49 SCCM ADMINISTRATOR The nurse who authored this document is no longer available to authenticate. The document will be filed without authentication. Modified by and Electronically Signed by: DUC RUCKER On: 12/15/2015 03:49 PM Electronically Signed by Proxy by: SE JOHN GILL, INBOX Mammo Screening Scheduled 10/20/2012 [facility]. [facility] Referring Physicians fax [phone] and phone number [phone] or [phone] Electronically Signed By: DUC RUCKER On: 12/15/2015 03:49 PM Electronically Signed by Proxy by: SE JOHN GILL, INBOX Source: [facility] POWERCHART Document Id: [id number] ADMINISTRATOR documented in this encounter Miscellaneous Notes Miscellaneous - Jonathon Parker APRN, C.N.P. - 08/07/2012 10:25 AM CDT Results Notification Document Contains Addenda Addendum by DUC RUCKER on 12 August 2012 13:47:44 SCCM ADMINISTRATOR being treated From: JONATHON SKINNER BREAKFAST BAR ATTENDANT To: DAVID Pascual Nurse Sent: 08/07/2012 10:25:36 CDT ! Show up: 08/07/2012 15:25:36 [facility] Subject: Results Notification Actions: Notify patient-refer to General Message Source: [facility] POWERCHART Document Id: [id number] Electronically signed by Nikos [facility] Surgical Corsetier [id number] at 03/09/2017 10:55 PM CDT Miscellaneous - Jonathon Parker APRN, C.N.P. - 08/01/2012 11:24 AM CDT Ambulatory Patient Summary [address] [place] [address] Visit Information Name: ANISLEY GANDHI Visit Date: 08/01/2012 11:24:00 Attending Provider: [...] provider for clarification. Additional Information: Source: [facility] POWERCHART Document Id: [id number] Miscellaneous - Jonathon Parker APRN, C.N.P. - 08/01/2012 11:24 AM CDT Ambulatory Depart Summary [address] [address] Visit Information Name: AINSLEY GANDHI Visit Date: 08/01/2012 11:23:59 Attending Provider: JONATHON SKINNER CNP Primary Care Provider: JONATHON SKINNER [facility] AINSLEY GANDHIZABETH has been given the [...] provider for clarification. Additional Information: Source: [facility] POWERCHART Document Id: [id number] Miscellaneous - Duc Ling L.P.N. - 08/01/2012 10:38 AM CDT Adult Fulfillment Specialist Intake/History Adult Fulfillment Specialist Intake/History Entered On: 08/01/2012 10:40 CDT Performed [...] MD; Reviewed Date: 08/01/2012 10:35 CDT Source: 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 [address] [place], [place] [phone] (Wo rk) documented as [...] Culture, Aerobic, Urine (08/01/2012 11:52 AM CDT) [facility] Method Time Signature Bacterial POWERCHART Culture, Aerobic, Urine HXFinal See POWERCHART scanned/paper report. Test performed at [facility]. Specimen (Source) Anatomical Collection Method Collection Time Re ceived Time Location / / Volume Laterality Urine, Clean 08/01/2012 11:52 Catch AM CDT Jonathon Parker APRN, C.N.P., D.N.P. LAB MICROBIOLOGY - GENERAL ORDERABLES Performing Organization Address [facility] Code Phon e Number POWERCHART HX UA GLUCOSE POC (08/01/2012 11:16 AM CDT) P athologist Signature Glucose, POCT, Negative POWERCHART U Specimen (Source) Anatomical Collection Method Collection Time Re ceived Time Location / / Volume Laterality 08/01/2012 11:16 AM CDT Historical Provider LAB HISTORICAL ORDERS Performing Organization Address [facility] Code Phon e Number POWERCHART Dipstick, POCT, Urine (lab) (08/01/2012 11:16 AM CDT) P athologist Signature Bilirubin, 1+ Small POWERCHART POCT, U Specimen (Source) Anatomical Collection Method Collection Time Re ceived Time Location / / Volume Laterality 08/01/2012 11:16 AM CDT Historical Provider LAB POCT ORDERABLES - DEVICE Performing Organization Address [facility] Phon e Number POWERCHART Ketone, Urine, POCT (08/01/2012 11:16 AM CDT) P athologist Signature Ketone, POCT, Negative POWERCHART U Specimen (Source) Anatomical Collection Method Collection Time Re ceived Time Location / / Volume Laterality 08/01/2012 11:16 AM CDT Historical Provider LAB POCT ORDERABLES-MANUAL Performing Organization Address [facility] Code Phon e Number POWERCHART Dipstick, POCT, Urine (lab) (08/01/2012 11:16 AM CDT) P athologist Signature Specific 1.030 POWERCHART [place], POCT, U Specimen (Source) Anatomical Collection Method Collection Time Re ceived Time Location / / Volume Laterality 08/01/2012 11:16 AM CDT Historical Provider LAB POCT ORDERABLES - DEVICE Performing Organization Address [facility] Phon e Number POWERCHART Dipstick, POCT, Urine [...] - DEVICE Performing Organization Address [facility] Phon e Number POWERCHART Dipstick, POCT, Urine (lab) (08/01/2012 11:16 AM CDT) Analysis Performed At Patho logis Time Signature Protein, POCT, 3+ (300 POWERCHART U mg/dl) Specimen (Source) Anatomical Collection Method Collection Time Re ceived Time Location / / Volume Laterality 08/01/2012 11:16 AM CDT Historical Provider LAB POCT ORDERABLES - DEVICE Performing Organization Address [facility] Phon e Number POWERCHART Dipstick, POCT, Urine (lab) (08/01/2012 11:16 AM CDT) Analysis Performed At Patho logist Time Signature Urobilinogen, 0.2 mg/dl POWERCHART POCT, Urine Specimen (Source) Anatomical Collection Method Collection Time Re ceived Time Location / / Volume Laterality 08/01/2012 11:16 AM CDT Historical Provider LAB POCT ORDERABLES - DEVICE Performing Organization Address City/[facility]/ZIP Code Phon e Number POWERCHART HX UA NITRITE POC (08/01/2012 11:16 AM CDT) P athologist Signature Nitrites, Negative POWERCHART POCT, U Specimen (Source) Anatomical Collection Method Collection Time Re ceived Time Location / / Volume Laterality 08/01/2012 11:16 AM CDT Historical Provider LAB HISTORICAL ORDERS Performing Organization Address City/[facility]/ZIP Code Phon e Number POWERCHART Dipstick, POCT, [...] CDT) P athologist Signature Specific 1.030 POWERCHART [place], POCT, U Specimen (Source) Anatomical Collection Method Collection Time Re ceived Time Location / / Volume Laterality 08/01/2012 11:16 AM CDT Historical Provider LAB POCT ORDERABLES - DEVICE Performing Organization Address [facility] Code Phon e Number POWERCHART Dipstick, POCT, Urine (lab) (08/01/2012 11:16 AM CDT) P athologist Signature Blood, POCT, U 3+ LARGE POWERCHART Specimen (Source) Anatomical Collection Method Collection Time Re ceived Time Location / / Volume Laterality 08/01/2012 11:16 AM CDT Historical Provider LAB POCT ORDERABLES - DEVICE Performing Organization Address [facility] Code Phon e Number POWERCHART Dipstick, POCT, Urine (lab) (08/01/2012 11:16 AM CDT) P athologist Signature pH, POCT, Urine 6.0 POWERCHART Specimen (Source) Anatomical Collection Method Collection Time Re ceived Time Location / / Volume Laterality 08/01/2012 11:16 AM CDT Historical Provider LAB POCT ORDERABLES - DEVICE Performing Organization Address City/[facility]/ZIP Code Phon e Number POWERCHART Dipstick, POCT, Urine (lab) (08/01/2012 11:16 AM CDT) Analysis Performed At Patho logist Time Signature Protein, POCT, 3+ (300 POWERCHART U mg/dl) Specimen (Source) Anatomical Collection Method Collection Time Re ceived Time Location / / Volume Laterality 08/01/2012 11:16 AM CDT Historical Provider LAB POCT ORDERABLES - DEVICE Performing Organization Address City/State/[facility] Phon e Number POWERCHART Dipstick, POCT, Urine (lab) (08/01/2012 11:16 AM CDT) Analysis Performed At Patho logist Time Signature Urobilinogen, 0.2 mg/dl POWERCHART POCT, Urine Specimen (Source) Anatomical Collection Method Collection Time Re ceived Time Location / / Volume Laterality 08/01/2012 11:16 AM CDT Historical Provider LAB POCT ORDERABLES - DEVICE Performing Organization Address [facility]/ZIP Code Phon e Number POWERCHART HX UA NITRITE POC (08/01/2012 11:16 AM CDT) P athologist Signature Nitrites, Negative POWERCHART POCT, U Specimen (Source) Anatomical Collection Method Collection Time Re ceived Time Location / / Volume Laterality 08/01/2012 11:16 AM CDT Historical Provider LAB HISTORICAL ORDERS Performing Organization Address [facility] Phon e Number POWERCHART Dipstick, POCT, Urine (lab) (08/01/2012 11:16 AM CDT) P athologist Signature Leukocytes, 3+ Large POWERCHART POCT, U Specimen (Source) Anatomical Collection Method Collection Time Re ceived Time Location / / Volume Laterality 08/01/2012 11:16 AM CDT Historical Provider LAB POCT ORDERABLES - DEVICE Performing Organization Address [facility] Phon e Number POWERCHART HX UA APPEAR POC (08/01/2012 11:16 AM CDT) P athologist Signature Appearance Cloudy POWERCHART Specimen (Source) Anatomical Collection Method Collection Time Re ceived Time Location / / Volume Laterality 08/01/2012 11:16 AM CDT Historical Provider LAB HISTORICAL ORDERS Performing Organization Address City/[facility]/ZIP Code Phon e Number POWERCHART Dipstick, POCT, [...]
--- OUTSIDE RECORDS SUMMARY | 2022-08-22 14:50 | XMS_ITS | Encounter Summary ---
:1940 Author Organization [facility] Address [address] [place] [address] Care Team Providers Name Role Phone Unavailable Primary Care Provider Unavailable Encounter Details Date Type Department Care Team Description 03/08/2014 Hospital Encounter HX [facility] FAMILYPRA Naomi Parker, MISA, C.N.P., D. N.P. [address] [place], [place] [address] (Wo rk) Social History [...] Body Mass Index 34.86 09/25/2013 8:26 AM VEGETABLE TIER documented in this encounter Medications at Time [...] APRN, C.N.P. - 03/08/2014 9:00 AM CDT [id number] CHIEF COMPLAINT/REASON FOR VISIT Knee pain. HISTORY [...] SKINNER CNP On: 05/27/2014 06:10 PM Source: [facility] MHSDOLBEYNONRADSYS Document Id: [id number] documented in this encounter Miscellaneous Notes Miscellaneous [...] Radiology XR Knee Left 3 views Source: [facility] POWERCHART Document Id: [id number] Electronically signed by Nikos [facility] Controller Repairer And Tester [id number] at 03/05/2017 8:39 PM CDT Miscellaneous - Jonathon Parker APRN, C.N.P. - 03/08/2014 9:32 AM CDT Ambulatory Patient Summary [address] [id number] Visit Information Name: AINSLEY AGUAYO [facility] Number: [phone] Visit Date: 03/08/2014 09:32:58 Attending [...] nasal (Flonase 0.05 mg/inh nasal spray) 1 [place](s), Nostrils(Both), once a day ibuprofen (ibuprofen 200 [...] CNP Signed On:08-MAR-2014 09:32:42 Additional Information: Source: [facility] POWERCHART Document Id: [id number] Miscellaneous - Jonathon Parker APRN, C.N.P. - 03/08/2014 9:32 AM CDT Ambulatory Discharge Medication List [address] [id number] Visit Information Name: AINSLEY AGUAYO [facility] Number: [phone] Visit Date: 03/08/2014 09:32:56 Attending [...] nasal (Flonase 0.05 mg/inh nasal spray) 1 [place](s), Nostrils(Both), once a day ibuprofen (ibuprofen 200 [...] of emergency. Electronically Signed By: JONATHON SKINNER TISSUE RECOVERY TECHNICIAN Signed On:08-MAR-2014 09:32:42 Additional Information: Source: [facility] POWERCHART Document Id: [id number] Miscellaneous - Stephen Rubin, L.P.N. - 03/08/2014 9:11 AM CDT Adult Tour Counselor Intake/History Adult Tour Counselor Intake/History Entered On: 03/08/2014 9:14 CDT Performed On: 03/08/2014 9:11 CDT by ERICHSEN, DWYN E [employer] SYSTEMS ENGINEER Intake Chief Complaint : Left knee bothers [...] Communication Mode : Verbal Languages : Faroese STEPHEN RUBIN LPN - 03/08/2014 9:11 CDT [...] Daily Amount : 1 can diet soda TSEPHEN RUBIN LPN - 03/08/2014 9:11 CDT Recreational Drug Use Grid Drug Use : None STEPHEN RUBIN LPN 03/08/2014 9:11 CDT Source: [facility] POWERCHART Document Id: [id number] documented in this encounter Plan of Treatment Upcoming Encounters Date Type Specialty Care Team Description 08/24/2022 Appointment Radiation Oncology Rickey Barry M.D. [address] [place] [phone] (Wo rk) documented as of this [...] change. Procedure Note Chaparro Vasquez M.D. / ProviderDaniel M.D. - 02/15/2017 Exam: XR Knee Left [...]
--- OUTSIDE RECORDS SUMMARY | 2022-08-22 14:50 | XMS_ITS | Encounter Summary ---
:[address] [facility] Address [address] [place] [address] Care Team Providers Name Role Phone Unavailable Primary Care Provider Unavailable Encounter Details Date Type Department Care Team Description 09/25/2013 Hospital Encounter [facility]X [facility] Naomi Parker, MISA, C.N.P., D. N.P. [address] [place], [place] [address] (Wo rk) Social History [...] Comments Blood Pressure 130/78 09/25/2013 8:26 AM ECOMMERCE MANAGER Pulse 84 09/25/2013 8:26 AM ECOMMERCE MANAGER Temperature - - Respiratory Rate 16 09/25/2013 8:26 AM ECOMMERCE MANAGER Oxygen Saturation - - Inhaled Oxygen Concentration - - Weight 91.9 kg (202 lb 9.6 oz) 09/25/2013 8:26 AM ECOMMERCE MANAGER Height 162.9 cm (5' 4.13) 09/25/2013 8:26 AM ECOMMERCE MANAGER Body Mass Index 34.63 09/25/2013 8:26 AM ECOMMERCE MANAGER documented in this encounter Medications at [...] APRN, C.N.P. - 09/25/2013 8:13 AM CST [id number] CHIEF COMPLAINT/REASON FOR VISIT Annual medication renewal HISTORY OF PRESENT ILLNESS The patient is a 72-year-old female who presents to the clinic for her annual medication renewal. She denies fever, chills, nausea, vomiting, shortness of breath or chest pain. Patient does have history of asthma and is followed by [facility] fingerprint classifier. Patient did have a recent asthma exacerbation [...] does spend part of the winter in [place] from November to January. She exercises 4 [...] and she would like this ordered at [facility]. Patient was encouraged to exercise 30 minutes most days a week. Patient was encouraged follow a low-fat diet. Patient was encouraged to wear sunscreen when outside. 2. Asthma control is not indicated today. Patient will continue her prednisone prescribed by [place]. Patient states she is feeling better; however [...] SKINNER CNP On: 10/02/2013 08:06 AM Source: [facility] MHSDOLBEYNONRADSYS Document Id: [id number] MERCE MANAGER documented in this encounter Procedure Notes Stephen Rubin L.P.N. - 10/14/2013 1:57 PM CST Asthma Control Test (12 yrs and older) Asthma Control Test (12 yrs and older) Entered On: 10/28/2013 13:57 ECOMMERCE MANAGER Performed On: 10/14/2013 13:57 ECOMMERCE MANAGER by STEPHEN RUBIN ACT Past 4 [...] : 23 STEPHEN RUBIN - 10/28/2013 13:57 ECOMMERCE MANAGER Source: [facility] Document Id: [id number] ECOMMERCE MANAGER!8 MERCE MANAGER Stephen Rubin L.P.N. - 09/25/2013 8:30 AM CST Asthma Control Test (12 yrs and older) Asthma Control Test (12 yrs and older) Entered On: 09/25/2013 8:31 ECOMMERCE MANAGER Performed On: 09/25/2013 8:30 ECOMMERCE MANAGER by STEPHEN RUBIN ACT Past 4 [...] : 10 STEPHEN RUBIN - 09/25/2013 8:30 ECOMMERCE MANAGER Source: [facility] Document Id: [id number] ECOMMERCE MANAGER!8 MERCE MANAGER documented in this encounter Miscellaneous Notes Miscellaneous - Jonathon Parker APRN, C.N.P. - 09/28/2013 9:06 AM ECOMMERCE MANAGER Results Notification From: JONATHON SKINNER BULK SUGAR HANDLER To: DAVID Pascual Family Medicine Nurse; Sent: 09/28/2013 09:06:41 ECOMMERCE MANAGER ! Show up: 09/28/2013 15:06:41 [facility] Subject: Results Notification Actions: Notify patient [...] Sensitive-Campos 1.0 mIU/L (0.3-5.0 - ) Source: [facility] POWERCHART Document Id: [id number] Electronically signed by Conversion, [facility] Grades 7 8 Tutor [id number] at 03/06/2017 8:38 PM CDT Miscellaneous - Jonathon Parker APRN, C.N.P. - 09/25/2013 9:04 AM ECOMMERCE MANAGER Ambulatory Patient Summary [facility] [address] [place] [address] Visit Information Name: AINSLEY AGUAYO [facility] Number: [id number] Visit Date: 09/25/2013 09:04:24 Attending [...] Shortness of breath / Wheezing Routed to [address] [id number] aspirin (aspirin 81 mg oral enteric coated tablet) 1 Tablet(s), Oral, once a day calcium-vitamin D (Calcium 600+D) 1 Tablet(s), Oral, three times a day chlorthalidone (chlorthalidone 25 mg oral tablet) 1 Tablet(s), Oral, once a day Routed to [address] [id number] fluticasone nasal (Flonase 0.05 mg/inh nasal spray) 1 [place](s), Nostrils(Both), once a day Routed [address] [id number] ibuprofen (ibuprofen 200 mg oral tablet) levothyroxine (Synthroid 75 mcg (0.075 mg) oral tablet) 1 Tablet(s), Oral, once a day Routed to [address] [id number] lisinopril (lisinopril 30 mg oral tablet) 1 Tablet(s), Oral, once a day Routed to [place] [address] [place], [place] [id number] loratadine (Claritin 10 mg oral tablet) 1 Tablet(s), Oral, once a day as needed for Allergy symptoms montelukast (Singulair 10 mg oral tablet) 1 Tablet(s), Oral, every evening omega-3 polyunsaturated fatty acids (Fish Oil oral capsule) three times a day pravastatin (pravastatin 40 mg oral tablet) 1.5 Tablet(s), Oral, once a day (at bedtime) New Dose Routed to [place] [address] [place], [place] [id number] predniSONE (predniSONE 10 mg oral tablet) See [...] in case of emergency. Additional Information: Source: [facility] POWERCHART Document Id: [id number] MERCE MANAGER Miscellaneous - Jonathon Parker APRN, C.N.P. - 09/25/2013 9:04 AM ECOMMERCE MANAGER Ambulatory Depart Summary [address] [address] Visit Information Name: DEDE JOSI [facility] Number: [id number] Visit Date: 09/25/2013 09:04:20 Attending Provider: JONATHON SKINNER CNP Primary Care Provider: JOANTHON SKINNER CNP AINSLEY AGUAYOBETH has been given [...] Shortness of breath / Wheezing Routed to [address] [id number] aspirin (aspirin 81 mg oral enteric coated tablet) 1 Tablet(s), Oral, once a day calcium-vitamin D (Calcium 600+D) 1 Tablet(s), Oral, three times a day chlorthalidone (chlorthalidone 25 mg oral tablet) 1 Tablet(s), Oral, once a day Routed to [address] [id number] fluticasone nasal (Flonase 0.05 mg/inh nasal spray) 1 [place](s), Nostrils(Both), once a day Routed [address] [id number] ibuprofen (ibuprofen 200 mg oral tablet) levothyroxine (Synthroid 75 mcg (0.075 mg) oral tablet) 1 Tablet(s), Oral, once a day Routed to [address] [id number] lisinopril (lisinopril 30 mg oral tablet) 1 Tablet(s), Oral, once a day Routed to [address] [id number] loratadine (Claritin 10 mg oral tablet) 1 Tablet(s), Oral, once a day as needed for Allergy symptoms montelukast (Singulair 10 mg oral tablet) 1 Tablet(s), Oral, every evening omega-3 polyunsaturated fatty acids (Fish Oil oral capsule) three times a day pravastatin (pravastatin 40 mg oral tablet) 1.5 Tablet(s), Oral, once a day (at bedtime) New Dose Routed to [place] [address] [place], [place] [phone] predniSONE (predniSONE 10 mg oral tablet) See [...] in case of emergency. Additional Information: Source: [facility] POWERCHART Document Id: [id number] MERCE MANAGER Miscellaneous - Stephen Rubin, L.P.N. - 09/25/2013 9:00 AM CST PHQ-9 PHQ-9 Entered On: 09/25/2013 11:01 ECOMMERCE MANAGER Performed On: 09/25/2013 9:00 ECOMMERCE MANAGER by STEPHEN RUBIN PHQ-9 Little interest [...] at all STEPHEN RUBIN - 09/25/2013 11:01 ECOMMERCE MANAGER Source: [facility] POWERCHART Document Id: [id number] ECOMMERCE MANAGER!13 MERCE MANAGER Miscellaneous - Jonathon Parker APRN, C.NAntwanPAntwan - 09/25/2013 8:40 AM ECOMMERCE MANAGER Reminder Msg Document Contains Addenda Addendum by STEPHEN RUBIN LPN on 04 January 2014 14:19:15 CDT completed. From: JONATHON SKINNER BULK SUGAR HANDLER To: DAVID Pascual [facility] Medicine Nurse; Sent: 09/25/2013 08:40:11 ECOMMERCE MANAGER Show up: 12/19/2013 08:38:00 CDT Subject: Reminder Msg Please Remember to: Please call patient and set up Mammogram in [facility]. (last one was 20 January 2014, so after this date) PATIENT: ( ) Call Patient ( ) Ask Patient to ( ) ( ) Call Relative ( ) Schedule Patient ( ) ( ) Call for Instructional Aide ( ) Follow up on Results ( ) Other: PROVIDER: ( ) Call Physician ( ) Call Pharmacist ( ) Call Lab ( ) Other: Special Instructions: Comments: Source: [facility] agreement24 [email or web address] Document Id: [id number] Electronically signed by Nikos [facility] Grades 7 8 Tutor [id number] at 03/06/2017 8:38 PM CDT Miscellaneous - Stephen Rubin, L.P.N. - 09/25/2013 8:26 AM CST Adult Surgical Lead Intake/History Adult Surgical Lead Intake/History Entered On: 09/25/2013 8:28 ECOMMERCE MANAGER Performed On: 09/25/2013 8:26 ECOMMERCE MANAGER by STEPHEN RUBIN Intake Chief Complaint [...] 34.63 kg/m2 STEPHEN RUBIN - 09/25/2013 8:26 ECOMMERCE MANAGER General Info Information Given By : Patient Languages : Romansh STEPHEN RUBIN 09/25/2013 8:26 ECOMMERCE MANAGER Subjective Pain Symptoms : No STEPHEN RUBIN - 09/25/2013 8:26 ECOMMERCE MANAGER Dependent Habits Tobacco Use/Currently Using : No Tobacco Use/Last 12 months : No Tobacco Use/Advised to Quit : No Exposure to Tobacco Smoke : Other: Never Smoked Smoking Status : Never smoker STEPHEN RUBIN 09/25/2013 8:26 ECOMMERCE MANAGER Caffeine Use Grid Caffeine Use : Current Type : Coffee, Soft drinks Frequency : Daily Amount : 1 cup & 2 cans STEPHEN RUBIN - 09/25/2013 8:26 ECOMMERCE MANAGER Recreational Drug Use Grid Drug Use : None STEPHEN RUBIN - 09/25/2013 8:26 ECOMMERCE MANAGER Source: [facility] Document Id: [id number] ECOMMERCE MANAGER!37 MERCE MANAGER Miscellaneous - Stephen Rubin L.P.N. - 09/25/2013 8:26 AM CST Health Assessment Health Assessment Entered On: 09/25/2013 8:30 ECOMMERCE MANAGER Performed On: 09/25/2013 8:26 ECOMMERCE MANAGER by STEPHEN RUBIN Health Assessment Complete Health Assessment Complete or Modified : Annual Health Assessment Annual Health Assessment Completed : Yes STEPHEN RUBIN - 09/25/2013 8:26 ECOMMERCE MANAGER Nutrition Nutrition Risk Factors by History Adult : None STEPHEN RUBIN 09/25/2013 8:26 ECOMMERCE MANAGER Functional Current Daily Living Assistance : None STEPHEN RUBIN - 09/25/2013 8:26 ECOMMERCE MANAGER Dependent Habits Tobacco Use/Currently Using : No Tobacco Use/Last 12 months : No Tobacco Use/Advised to Quit : No Exposure to Tobacco Smoke : Other: Never Smoked Smoking Status : Never smoker Alcohol Use : Yes STEPHEN RUBIN 09/25/2013 8:26 ECOMMERCE MANAGER Caffeine Use Grid Caffeine Use : Current Type : Soft drinks Frequency : Daily Amount : 1 can diet soda STEPHEN RUBIN 09/25/2013 8:26 ECOMMERCE MANAGER Recreational Drug Use Grid Drug Use : None STEPHEN RUBIN 09/25/2013 8:26 ECOMMERCE MANAGER AUDIT Tool How Often Do You Have A Drink : 2 to 4 times a month How Many Drinks in a Day When Drinking : 1 or 2 Six or More Drinks On One Occassion : Never Audit Phase 1 Score : 2 STEPHEN RUBIN 09/25/2013 8:26 ECOMMERCE MANAGER Psychosocial Domestic Abuse Concerns : None Marital Status : Years of Marriage : 3 Number of Children : 1 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 STEPHEN RUBIN 09/25/2013 8:26 ECOMMERCE MANAGER Advance Directive Advanced Directives : No STEPHEN RUBIN 09/25/2013 8:26 ECOMMERCE MANAGER Educ Needs Learning Style Preference Adult Grid Patient : Demonstration, Printed materials, Verbal explanation, Video/Educational TV Family : Demonstration, Printed materials, Verbal explanation, Video/Educational TV STEPHEN RUBIN 09/25/2013 8:26 ECOMMERCE MANAGER Source: [facility] agreement24 [email or web address] Document Id: [id number] ECOMMERCE MANAGER!42 MERCE MANAGER documented in this encounter Plan of Treatment Upcoming Encounters Date Type Specialty Care Team Description 08/24/2022 Appointment Radiation Oncology Rickey Barry M.D. [address] [place] [address] [phone] (Wo rk) documented as of this encounter Procedures Procedure Name Priority Date/Time Associated Comments Diagnosis LIPID PANEL, S Routine 09/25/2013 9:39 Results fo r this AM ECOMMERCE MANAGER procedure are i n the results section. THYROID FUNCTION Routine 09/25/2013 9:39 Results for this CASCADE, S AM ECOMMERCE MANAGER procedure are i n the results section. ASPARTATE Routine 09/25/2013 9:39 Results for this AMINOTRANSFERASE (AST), AM ECOMMERCE MANAGER proc edure are in S/P the results section. BASIC METABOLIC PANEL, Routine 09/25/2013 9:39 Re sults for this S/P AM ECOMMERCE MANAGER procedure are i n the results section. documented in this encounter Results Thyroid Function [place] (09/25/2013 9:39 AM ECOMMERCE MANAGER) athologist Signature TSH, Sensitive 1.0 0.3 - 5.0 POWERCHART MIUL Comment: Test Performed by: [place] [address] Fabrication Operator: Michael marquis III, M.D. Specimen (Source) Anatomical Collection Method Collection Time Re ceived Time Location / / Volume Laterality Blood 09/25/2013 9:39 AM ECOMMERCE MANAGER Jonathon Parker APRN, C.N.P., D.N.P. LAB BLOOD ADD-ON Performing Organization Address City/State/ZIP Code Phon e Number POWERCHART (ABNORMAL) BMP (Basic Metabolic Panel) (09/25/2013 9:39 AM ECOMMERCE MANAGER) athologist Signature BUN (Blood Urea 16 6 [...] / Volume Laterality Blood 09/25/2013 9:39 AM ECOMMERCE MANAGER Jonathon Parker APRN, C.N.P., D.N.P. LAB BLOOD ADD-ON Performing Organization Address City/State/ZIP Code Phon e Number POWERCHART AST (Aspartate Aminotransferase) (09/25/2013 9:39 AM ECOMMERCE MANAGER) [facility] Method Time Signature Aspartate 18 8 - 43 POWERCHART Aminotransferase UNITL (AST), S Specimen (Source) Anatomical Collection Method Collection Time Re ceived Time Location / / Volume Laterality Blood 09/25/2013 9:39 AM ECOMMERCE MANAGER Jonathon Parker APRN, C.N.P., D.N.P. LAB BLOOD ADD-ON Performing Organization Address City/State/ZIP Code Phon e Number POWERCHART (ABNORMAL) Lipid Panel (09/25/2013 9:39 AM ECOMMERCE MANAGER) [facility] Signature Cholesterol, Total 178 0 - 200 POWERCHART MGDL HX HDL 42.0 40.0 - POWERCHART 60.0 MGDL Triglycerides 172 (H) 0 - 150 POWERCHART MGDL Calculated LDL 102 (H) 0 - 100 POWERCHART MGDL Specimen (Source) Anatomical Collection Method Collection Time Re ceived Time Location / / Volume Laterality Blood 09/25/2013 9:39 AM ECOMMERCE MANAGER Jonathon Parker APRN, C.N.P., D.N.P. LAB BLOOD ADD-ON Performing Organization Address City/State/ZIP Code Phon e Number POWERCHART documented in this encounter Visit Diagnoses Not on filedocumented in this encounter
--- OUTSIDE RECORDS SUMMARY | 2022-08-22 14:50 | XMS_ITS | Encounter Summary ---
:1940 Author Organization [facility] Address [address] [place] [address] Care Team Providers Name Role Phone Unavailable Primary Care Provider Unavailable Encounter Details Date Type Department Care Team Description 04/22/2014 Hospital Encounter HX [facility] Naomi Parker, MISA, C.N.P., D. N.P. [address] [place], [place] [address] (Wo rk) Social History [...] Body Mass Index 35.16 09/25/2013 8:26 AM ASSOCIATE SOFTWARE DEVELOPER documented in this encounter Medications at [...] APRN, C.N.P. - 04/22/2014 9:41 AM CDT [id number] CHIEF COMPLAINT/REASON FOR VISIT Sore hand. HISTORY [...] SKINNER CNP On: 05/28/2014 04:37 PM Source: [facility] MHSDOLBEYNONRADSYS Document Id: [id number] documented in this encounter Miscellaneous Notes Miscellaneous - Jonathon Parker APRN, C.N.P. - 04/22/2014 11:37 AM CDT Ambulatory Patient Summary [address] [id number] Visit Information Name: DEDEAINSLEY [facility] Number: [id number] Visit Date: 04/22/2014 11:37:03 [...] nasal (Flonase 0.05 mg/inh nasal spray) 1 [place](s), Nostrils(Both), once a day hydrochlorothiazide (hydrochlorothiazide 25 [...] CNP Signed On:22-APR-2014 11:36:51 Additional Information: Source: [facility] POWERCHART Document Id: [id number] Miscellaneous - Jonathon Parker APRN C.N.P. - 04/22/2014 11:37 AM CDT Ambulatory Discharge Medication List [address] [id number] Visit Information Name: AINSLEY AGUAYO [facility] Number: [id number] Visit Date: 04/22/2014 11:37:01 [...] nasal (Flonase 0.05 mg/inh nasal spray) 1 [place](s), Nostrils(Both), once a day hydrochlorothiazide (hydrochlorothiazide 25 [...] of emergency. Electronically Signed By: JONATHON SKINNER INSTRUCTOR MODELING Signed On:22-APR-2014 11:36:51 Additional Information: Source: [facility] POWERCHART Document Id: [id number] Miscellaneous - Stephen Rubin, L.P.N. - 04/22/2014 9:51 AM CDT Adult Superintendent Meters Intake/History Adult Superintendent Meters Intake/History Entered On: 04/22/2014 9:53 CDT Performed [...] scale Dosing Weight Clinic : 93.3 kg CARYN STEPHEN Haynes LPN - 04/22/2014 9:51 CDT General Info Information Given By : Patient Preferred Communication Mode : Verbal Languages : Belgian MARIELEENASTEPHEN LPN - 04/22/2014 9:51 CDT Subjective Pain Symptoms : Yes CARYN STEPHEN Haynes LPN 04/22/2014 9:51 CDT Pain Pain Assessment [...] STEPHEN RUBIN LPN 04/22/2014 9:51 CDT Source: [facility] Document Id: [id number] CDT!43 documented in this encounter Plan of Treatment Upcoming Encounters Date Type Specialty Care Team Description 08/24/2022 Appointment Radiation Oncology Rickey Barry M.D. [address] [place] [phone] (Wo rk) documented as of this [...] or more views Clinical history: ??Hand pain [id number] s/ p fall (pain as base of [...] or more views Clinical history: Hand pain [id number] s/p fall (pain as base of palm [...] hand and wrist as described above. Alison Wei R.T.(R), R.T.(R)(M) IMG DIAGNOSTIC IM AGING PROCEDURES documented in this encounter Visit Diagnoses Not on filedocumented in this encounter
--- OUTSIDE RECORDS SUMMARY | 2022-08-22 14:50 | XMS_ITS | Encounter Summary ---
:1940 Author Organization [facility] Address [address] [place] [address] Care Team Providers Name Role Phone Unavailable Primary Care Provider Unavailable Encounter Details Date Type Department Care Team Description 09/16/2014 Hospital Encounter HX [facility] FAMILY[facility] Tino Horn P.A.-C. [address] [place] [address] (Wo rk) Social History Tobacco [...] Comments Blood Pressure 120/78 09/16/2014 9:15 AM MOLD FINISHER Pulse 78 09/16/2014 9:15 AM MOLD FINISHER Temperature - - Respiratory Rate 16 09/16/2014 9:15 AM MOLD FINISHER Oxygen Saturation - - Inhaled Oxygen Concentration - - Weight 93.6 kg (206 lb 5.6 oz) 09/16/2014 9:15 AM MOLD FINISHER Height 162 cm (5' 3.78) 09/16/2014 9:15 AM MOLD FINISHER Body Mass Index 35.66 09/16/2014 9:15 AM MOLD FINISHER documented in this encounter Medications at Time [...] Horn P.A.-C. - 09/16/2014 8:49 AM CST [id number] CHIEF COMPLAINT/REASON FOR VISIT History and physical [...] within the next month. She would be [place] Society of Anesthesiologists Class 2 for surgery. [...] HORN PA-C On: 09/16/2014 01:36 PM Source: [facility] MHSDOLBEYNONRADSYS Document Id: [id number] FINISHER documented in this encounter Miscellaneous Notes Miscellaneous - Joshua Rubin L.P.N. - 09/16/2014 9:15 AM CST Adult Marketing Strategy Lead Intake/History Adult Marketing Strategy Lead Intake/History Entered On: 09/16/2014 9:17 MOLD FINISHER Performed On: 09/16/2014 9:15 MOLD FINISHER by JOSHUA RUBIN LPN Intake Chief Complaint [...] kg/m2 JOSHUA RUBIN LPN - 09/16/2014 9:15 MOLD FINISHER General Info Information Given By : Patient Preferred Communication Mode : Verbal Languages : Greenlandic Is Patient Female and 13-50 no hysterectomy : No JOSHUA RUBIN LPN - 09/16/2014 9:15 MOLD FINISHER Subjective Pain Symptoms : Yes JOSHUA RUBIN LPN - 09/16/2014 9:15 MOLD FINISHER Pain Pain Assessment Grid Pain 1 Pain 2 Location : Knee Laterality : Left Intensity : 9 Duration : months JOSHUA RUBIN LPN - 09/16/2014 9:15 MOLD FINISHER JOSHUA RUBIN LPN - 09/16/2014 9:15 MOLD FINISHER Dependent Habits Tobacco Use/Currently Using : No Tobacco Use/Last 12 months : No Tobacco Use/Advised to Quit : No Exposure to Tobacco Smoke : Other: Never Smoked Smoking Status : Never smoker JOSHUA RUBIN LPN - 09/16/2014 9:15 MOLD FINISHER Caffeine Use Grid Caffeine Use : Current Type : Soft drinks Frequency : Daily Amount : 1 can diet soda JOSHUA RUBIN LPN - 09/16/2014 9:15 MOLD FINISHER Recreational Drug Use Grid Drug Use : None JOSHUA RUBIN LPN - 09/16/2014 9:15 MOLD FINISHER ID Screen Drug Resistant Organism : No Travel Within Last 21 Days : No JOSHUA RUBIN LPN - 09/16/2014 9:15 MOLD FINISHER Source: [facility] POWERCHART Document Id: [id number] MOLD FINISHER!50 FINISHER Miscellaneous - Joshua Rubin L.P.NAntwan - 09/16/2014 9:15 AM CST Health Assessment Health Assessment Entered On: 09/16/2014 9:18 MOLD FINISHER Performed On: 09/16/2014 9:15 MOLD FINISHER by JOSHUA RUBIN LPN Health Assessment Complete Health Assessment Complete or Modified : Annual Health Assessment Annual Health Assessment Completed : Yes JOSHUA RUBIN LPN - 09/16/2014 9:15 MOLD FINISHER Nutrition Nutrition Risk Factors by History Adult : None JOSHUA RUBIN LPN - 09/16/2014 9:15 MOLD FINISHER Functional Current Daily Living Assistance : None Mobility Assistance Prior to Admission : Independent JOSHUA RUBIN LPN - 09/16/2014 9:15 MOLD FINISHER Dependent Habits Tobacco Use/Currently Using : No Tobacco Use/Last 12 months : No Tobacco Use/Advised to Quit : No Exposure to Tobacco Smoke : Other: Never Smoked Smoking Status : Never smoker Alcohol Use : Yes JOSHUA RUBIN LPN - 09/16/2014 9:15 MOLD FINISHER Caffeine Use Grid Caffeine Use : Current Type : Soft drinks Frequency : Daily Amount : 1 can diet soda Last Use : 09/15/14 JOSHUA RUBIN LPN - 09/16/2014 9:15 MOLD FINISHER Recreational Drug Use Grid Drug Use : None JOSHUA RUBIN LPN - 09/16/2014 9:15 MOLD FINISHER AUDIT Tool How Often Do You Have A Drink : 2 to 4 times a month How Many Drinks in a Day When Drinking : 1 or 2 Six or More Drinks On One Occassion : Never Audit Phase 1 Score : 2 JOSHUA RUBIN LPN - 09/16/2014 9:15 MOLD FINISHER Psychosocial Domestic Abuse Concerns : None Marital Status : Number of Children : 1 Employment Status : Retired 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 - 09/16/2014 9:15 AM CST PHQ-9 PHQ-9 Entered On: 09/16/2014 9:18 MOLD FINISHER Performed On: 09/16/2014 9:15 MOLD FINISHER by JOSHUA RUBIN LPN PHQ-9 Little interest [...] difficult JOSHUA RUBIN LPN - 09/16/2014 9:15 MOLD FINISHER Source: [employer] Document Id: [id number] MOLD FINISHER!13 FINISHER documented in this encounter Plan of Treatment Upcoming Encounters Date Type Specialty Care Team Description 08/24/2022 Appointment Radiation Oncology Rickey Barry M.D. [address] [place], [place] [phone] (Wo rk) documented as of this encounter Visit Diagnoses Not on filedocumented in this encounter Additional Health Concerns Assessment Noted Time PHQ-9 Depression Total Score: 1 09/16/2014 9:15 AM MOLD FINISHER documented as of this encounter
--- OUTSIDE RECORDS SUMMARY | 2022-08-22 14:50 | XMS_ITS | Encounter Summary ---
:1940 Author Organization [facility] Address [address] [place] [address] Care Team Providers Name Role Phone Unavailable Primary Care Provider Unavailable Encounter Details Date Type Department Care Team Description 07/01/2013 Hospital Encounter HX [facility] Elizabeth Parker, MISA, C.N.P., D.N.P. [address] [place], [place] [address] (Wo rk) Social History [...] : Negative Test Strip Lot # : [id number] Test Strip Expiration Date : TITA CALDWELL - 07/01/2013 15:50 CDT [facility] P[facility] Document Id: [id number] CDT!16 documented in this encounter Nursing Notes [...] TITA CALDWELL - 07/01/2013 15:52 CDT Source: [employer] Document Id: [id number]!22 documented in this encounter Plan of Treatment Upcoming Encounters Date Type Specialty Care Team Description 08/24/2022 Appointment Radiation Oncology Rickey Barry M.D. [address] [place] [address] [phone] (Wo rk) documented as of [...] POCT ORDERABLES - DEVICE Performing Organization Address City/[facility]/ZIP Code Phon e Number POWERCHART Ketone, Urine, POCT (07/01/2013 3:51 PM CDT) Analysis Performed At Patho logist Time Signature Ketone, POCT, Trace (5 POWERCHART U mg/dl) Specimen (Source) Anatomical Collection Method Collection Time Re ceived Time Location / / Volume Laterality 07/01/2013 3:51 PM CDT Historical Provider LAB POCT ORDERABLES-MANUAL Performing Organization Address [facility] Code Phon e Number POWERCHART Dipstick, POCT, Urine (lab) (07/01/2013 3:51 PM CDT) athologist Signature Specific 1.030 POWERCHART [place], POCT, U Specimen (Source) Anatomical Collection Method Collection Time Re ceived Time Location / / Volume Laterality 07/01/2013 3:51 PM CDT Historical Provider LAB POCT ORDERABLES - DEVICE Performing Organization Address [facility] Code Phon e Number POWERCHART Dipstick, POCT, Urine (lab) (07/01/2013 3:51 PM CDT) athologist Signature Blood, POCT, U 3+ LARGE POWERCHART Specimen (Source) Anatomical Collection Method Collection Time Re ceived Time Location / / Volume Laterality 07/01/2013 3:51 PM CDT Historical Provider LAB POCT ORDERABLES - DEVICE Performing Organization Address [facility] Phon e Number POWERCHART Dipstick, POCT, Urine (lab) (07/01/2013 3:51 PM CDT) athologist Signature pH, POCT, Urine 6.0 POWERCHART Specimen (Source) Anatomical Collection Method Collection Time Re ceived Time Location / / Volume Laterality 07/01/2013 3:51 PM CDT Historical Provider LAB POCT ORDERABLES - DEVICE Performing Organization Address [facility] Phon e Number POWERCHART Dipstick, POCT, Urine (lab) (07/01/2013 3:51 PM CDT) Analysis Performed At Patho logist Time Signature Protein, POCT, 2+ (100 POWERCHART U mg/dl) Specimen (Source) Anatomical Collection Method Collection Time Re ceived Time Location / / Volume Laterality 07/01/2013 3:51 PM CDT Historical Provider LAB POCT ORDERABLES - DEVICE Performing Organization Address [facility] Phon e Number POWERCHART Dipstick, POCT, Urine (lab) (07/01/2013 3:51 PM CDT) Analysis Performed At Patho logist Time Signature Urobilinogen, 0.2 mg/dl POWERCHART POCT, Urine Specimen (Source) Anatomical Collection Method Collection Time Re ceived Time Location / / Volume Laterality 07/01/2013 3:51 PM CDT Historical Provider LAB POCT ORDERABLES - DEVICE Performing Organization Address [facility] Phon e Number POWERCHART HX UA NITRITE POC (07/01/2013 3:51 PM CDT) P athologist Signature Nitrites, Positive POWERCHART POCT, U Specimen (Source) Anatomical Collection Method Collection Time Re ceived Time Location / / Volume Laterality 07/01/2013 3:51 PM CDT Historical Provider LAB HISTORICAL ORDERS Performing Organization Address [facility] Phon e Number POWERCHART Dipstick, POCT, Urine (lab) (07/01/2013 3:51 PM CDT) Patholo gist Method Time Signature Leukocytes, 2+ Moderate POWERCHART POCT, U Specimen (Source) Anatomical Collection Method Collection Time Re ceived Time Location / / Volume Laterality 07/01/2013 3:51 PM CDT Historical Provider LAB POCT ORDERABLES - DEVICE Performing Organization Address [facility] Phon e Number POWERCHART HX UA APPEAR POC (07/01/2013 3:51 PM CDT) P athologist Signature Appearance Cloudy POWERCHART Specimen (Source) Anatomical Collection Method Collection Time Re ceived Time Location / / Volume Laterality 07/01/2013 3:51 PM CDT Historical Provider LAB HISTORICAL ORDERS Performing Organization Address [facility]/ZIP [facility] Phon e Number POWERCHART Dipstick, POCT, Urine [...]
--- OUTSIDE RECORDS SUMMARY | 2022-08-22 14:50 | XMS_ITS | Encounter Summary ---
:1940 Author Organization [facility] Address [address] [place] [address] Care Team Providers Name Role Phone Unavailable Primary Care Provider Unavailable Encounter Details Date Type Department Care Team Description 09/12/2012 Hospital Encounter HX [facility] Srinivas Andrade M.D. [address] [place] [phone] (Wo rk) Social History Tobacco [...] Parker APRN, C.N.P. - 09/14/2012 7:16 PM JAVA SDET Results Notification Document Contains Addenda Addendum by PIYUSH ALVAREZ on 16 September 2012 15:31:28 JAVA SDET Notified From: ELIZABETH POTTER BLACKTOP PAVER OPERATOR To: DAVID Pascual Nurse Sent: 09/14/2012 19:16:56 JAVA SDET ! Show up: 09/15/2012 01:16:56 [facility] Subject: Results Notification Actions: Notify patient-refer to General Message Source: [facility] POWERCHART Document Id: [id number] Miscellaneous - Elizabeth Parker APRN, C.N.P. - 09/12/2012 11:55 AM JAVA SDET Results Notification Document Contains Addenda Addendum by PIYUSH ALVAREZ on 16 September 2012 15:18:41 JAVA SDET Spoke with patient. She will slat pickler a paper copy of rx and is also requesting lab results to be printed. Will leave at the front sight attacher for her to slat pickler. Addendum by TITA CALDWELL on 15 September 2012 17:11:13 JAVA SDET Unable to reach faxed RX to [facility]. From: ELIZABETH POTTER BLACKTOP PAVER OPERATOR To: DAVID Pascual Nurse Sent: 09/12/2012 11:55:31 JAVA SDET ! Show up: 09/12/2012 17:55:31 [facility] Subject: Results Notification Actions: Notify patient-refer to General Message Source: [facility] real[employer]D Document Id: [id number] documented in this encounter Plan of Treatment Upcoming Encounters Date Type Specialty Care Team Description 08/24/2022 Appointment Radiation Oncology Rickye Barry M.D. [address] [place] [phone] (Wo rk) documented as of this encounter Procedures Procedure Name Priority Date/Time Associated Comments Diagnosis LIPID PANEL, S Routine 09/12/2012 9:36 Results fo r this AM JAVA SDET procedure are i n the results section. ASPARTATE Routine 09/12/2012 9:36 Results for this AMINOTRANSFERASE (AST), AM JAVA SDET proc edure are in S/P the results section. THYROID-STIMULATING Routine 09/12/2012 9:36 Resul ts for this HORMONE-SENSITIVE AM JAVA SDET procedure are in (S-TSH) the results section. BASIC METABOLIC PANEL, Routine 09/12/2012 9:36 Re sults for this S/P AM JAVA SDET procedure are i n the results section. documented in this encounter Results Thyroid-Stimulating Hormone-Sensitive (s-TSH) (09/12/2012 9:36 AM JAVA SDET) P athologist Signature TSH, Sensitive 1.2 0.3 - 5.0 POWERCHART MIUL Comment: Test Performed by: [place] [address] Steel Die Printer: Michael marquis III, M.D. Specimen (Source) Anatomical Collection Method Collection Time Re ceived Time Location / / Volume Laterality Blood 09/12/2012 9:36 AM JAVA SDET Elizabeth Parker APRN, C.N.P., D.N.P. LAB BLOOD ADD-ON Performing Organization Address City/State/ZIP Code Phon e Number POWERCHART AST (Aspartate Aminotransferase) (09/12/2012 9:36 AM JAVA SDET) [facility] gist Method Time Signature Aspartate 24 8 - 43 POWERCHART Aminotransferase UNITL (AST), S Specimen (Source) Anatomical Collection Method Collection Time Re ceived Time Location / / Volume Laterality Blood 09/12/2012 9:36 AM JAVA SDET Elizabeth Parker APRN, C.N.P., D.N.P. LAB BLOOD ADD-ON Performing Organization Address City/State/ZIP Code Phon e Number POWERCHART (ABNORMAL) Lipid Panel (09/12/2012 9:36 AM JAVA SDET) [facility] Method Time Signature Cholesterol, Total 190 0 - 200 POWERCHART MGDL HX HDL 47.0 40.0 - POWERCHART 60.0 MGDL Triglycerides 124 0 - 150 POWERCHART MGDL Calculated LDL 118 (H) 0 - 100 POWERCHART MGDL Specimen (Source) Anatomical Collection Method Collection Time Re ceived Time Location / / Volume Laterality Blood 09/12/2012 9:36 AM JAVA SDET Elizabeth Parker APRN, C.N.P., D.N.P. LAB BLOOD ADD-ON Performing Organization Address City/State/ZIP Code Phon e Number POWERCHART BMP (Basic Metabolic Panel) (09/12/2012 9:36 AM JAVA SDET) athologist Signature BUN (Blood Urea 17 6 [...] / Volume Laterality Blood 09/12/2012 9:36 AM JAVA SDET Elizabeth Parker APRN, C.N.P., D.N.P. LAB BLOOD ADD-ON Performing Organization Address City/State/ZIP Code Phon e Number POWERCHART documented in this encounter Visit Diagnoses Not on filedocumented in this encounter
--- OUTSIDE RECORDS SUMMARY | 2022-08-22 14:50 | XMS_ITS | Encounter Summary ---
:1940 Author Organization [facility] Address [address] [place] [address] Care Team Providers Name Role Phone Unavailable Primary Care Provider Unavailable Encounter Details Date Type Department Care Team Description 09/14/2014 Hospital Encounter HX [facility] [place] [facility] [place], [place] [address] (Wo rk) Social History Tobacco Use Types [...] 08/24/2022 Appointment Radiation Oncology Rickey Barry M.D. [address] [place] [phone] (Wo rk) documented as of this encounter Procedures Procedure Name Priority Date/Time Associated Comments Diagnosis LIPID PANEL, S Routine 09/14/2014 8:34 Results fo r this AM BIOMETRIC FINGERPRINTING TECHNICIAN procedure are i n the results section. ASPARTATE Routine 09/14/2014 8:34 Results for this AMINOTRANSFERASE (AST), AM BIOMETRIC FINGERPRINTING TECHNICIAN proc edure are in S/P the results section. THYROID-STIMULATING Routine 09/14/2014 8:34 Resul ts for this HORMONE-SENSITIVE AM BIOMETRIC FINGERPRINTING TECHNICIAN procedure are in (S-TSH) the results section. BASIC METABOLIC PANEL, Routine 09/14/2014 8:34 Re sults for this S/P AM BIOMETRIC FINGERPRINTING TECHNICIAN procedure are i n the results section. documented in this encounter Results (ABNORMAL) BMP (Basic Metabolic Panel) (09/14/2014 8:34 AM BIOMETRIC FINGERPRINTING TECHNICIAN) P athologist Signature BUN (Blood Urea 18 [...] MLMIN POWERCHART eGFR >60 >=60 POWERCHART Black/ [id number] Haitian Glucose, 105 (H) 70 - 99 POWERCHART Fasting, S MGDL Specimen (Source) Anatomical Collection Method Collection Time Re ceived Time Location / / Volume Laterality Blood 09/14/2014 8:34 AM BIOMETRIC FINGERPRINTING TECHNICIAN Igor Horn P.A.-C. LAB BLOOD ADD-ON Performing Organization Address City/State/ZIP Code Phon e Number POWERCHART Thyroid-Stimulating Hormone-Sensitive (s-TSH) (09/14/2014 8:34 AM BIOMETRIC FINGERPRINTING TECHNICIAN) P athologist Signature TSH 1.73 0.27 - 4.20 POWERCHART (Thyrotropin) MIUL Specimen (Source) Anatomical Collection Method Collection Time Re ceived Time Location / / Volume Laterality Blood 09/14/2014 8:34 AM BIOMETRIC FINGERPRINTING TECHNICIAN Igor Horn P.A.-C. LAB BLOOD ADD-ON Performing Organization Address City/State/ZIP Code Phon e Number POWERCHART AST (Aspartate Aminotransferase) (09/14/2014 8:34 AM BIOMETRIC FINGERPRINTING TECHNICIAN) Patholo gist Method Time Signature Aspartate 21 8 - 43 POWERCHART Aminotransferase UNITL (AST), S Specimen (Source) Anatomical Collection Method Collection Time Re ceived Time Location / / Volume Laterality Blood 09/14/2014 8:34 AM BIOMETRIC FINGERPRINTING TECHNICIAN Igor Horn P.A.-C. LAB BLOOD ADD-ON Performing Organization Address City/State/ZIP Code Phon e Number POWERCHART Lipid Panel (09/14/2014 8:34 AM BIOMETRIC FINGERPRINTING TECHNICIAN) Analysis Performed At Patho logist Time Signature Cholesterol, Total 157 0 - 200 POWERCHART MGDL HX HDL 45.0 40.0 - POWERCHART 60.0 MGDL Triglycerides 125 0 - 150 POWERCHART MGDL Calculated LDL 87 0 - 100 POWERCHART MGDL Total 3 POWERCHART Cholesterol/HDL Ratio Specimen (Source) Anatomical Collection Method Collection Time Re ceived Time Location / / Volume Laterality Blood 09/14/2014 8:34 AM BIOMETRIC FINGERPRINTING TECHNICIAN Igor Horn P.A.-C. LAB BLOOD ADD-ON Performing Organization Address City/State/ZIP Code Phon e Number POWERCHART documented in this encounter Visit Diagnoses Not on filedocumented in this encounter
--- OUTSIDE RECORDS SUMMARY | 2022-08-22 14:50 | XMS_ITS | Encounter Summary ---
:1940 Author Organization [facility] Address [address] [place] [address] Care Team Providers Name Role Phone Unavailable Primary Care Provider Unavailable Encounter Details Date Type Department Care Team Description 09/24/2012 Hospital Encounter HX [facility] FAMILYPRA Naomi Parker, MISA, C.N.P., D. N.P. [address] [place], [place] [address] (Wo rk) Social History [...] Comments Blood Pressure 130/80 09/24/2012 8:34 AM PROFESSIONAL ATHLETE Pulse - - Temperature - - Respiratory [...] Nurse Only Documentation Entered On: 09/24/2012 8:33 PROFESSIONAL ATHLETE Performed On: 09/24/2012 8:33 PROFESSIONAL ATHLETE by TITA CALDWELL Vitals/Ht/Wt Systolic Blood Pressure : 152mmHg (HI) Diastolic Blood Pressure : 92mmHg (>HHI) NIBP Mean : 112mmHg BP Location : Right upper extremity Blood Pressure Cuff Size : Regular TITA CALDWELL - 09/24/2012 8:33 PROFESSIONAL ATHLETE Allergy Allergies (Active) Cats Estimated Onset Date: Unspecified ; Reactions: unknown ; Created By: PHILLIP JARAMILLO MD; Reaction Status: Active ; Category: Other ; Substance: Cats ; Type: Allergy ; Updated By: PHILLIP JARAMILLO; Reviewed Date: 09/12/2012 8:34 PROFESSIONAL ATHLETE Dust Mite Estimated Onset Date: Unspecified ; Created By: KVNG PAULINO LPN; Reaction Status: Active ; Category: Drug ; Substance: Dust Mite ; Type: Allergy ; Updated By: KVNG PAULINO LPN; Reviewed Date: 09/12/2012 8:34 PROFESSIONAL ATHLETE prochlorperazine Estimated Onset Date: Unspecified ; Reactions: unknown ; Created By: BRAD JARAMILLO MD; Reaction Status: Active ; Category: Drug ; Substance: prochlorperazine ; Type: Allergy ; Updated By: PHILLIP JARAMILLO MD; Reviewed Date: 09/12/2012 8:34 PROFESSIONAL ATHLETE Source: [facility] POWERCHART Document Id: [id number] documented in this encounter Miscellaneous Notes Miscellaneous - Conversion, Historical Provider Ser - 12/23/2012 11:27 AM CDT Medication Refill Msg Document Contains Addenda Addendum by EBEN JC on 23 December 2012 14:53:55 CDT Rx faxed to pharmacy. Addendum by JONATHON POTTER CNP on 23 December 2012 11:56:58 CDT From: JONATHON POTTER CNP To: DAVID Pascual [facility] Nurse; Sent: 12/23/2012 11:56:58 CDT Subject: FW: Medication Refill Msg Need to refax. She wanted 90 instead of 30 From: KARELY CHOW To: JONATHON POTTER CNP; Sent: 12/23/2012 11:27:19 CDT Subject: Medication Refill Msg Caller is: ( ) Patient ( ) Mother ( ) Father ( ) Spouse ( ) Daughter ( ) Son ( ) Pharmacy ( ) Other: Provider: Pharmacy: [facility] fax# [phone] Name of Medications Needing Refill: Chlorthalidone 25mg tab - patient is requesting 90 day refill. Last refill 12/22/12, #30 Last Refill Date: Additional Information: Last / Future Appointment: Disposition: ( ) Send to Pharmacy ( ) Call to Pharmacy ( ) Patient will citrus picker Script ( ) Mail Rx to Patient Source: [facility] [employer] TechnologyCHART Document Id: [id number] Miscellaneous - Conversion, Historical Provider Ser - 09/24/2012 3:14 PM PROFESSIONAL ATHLETE General Message Document Contains Addenda Addendum by KARELY CHOW on 24 September 2012 16:02:46 PROFESSIONAL ATHLETE From: KARELY CHOW To: JONATHON POTTER CNP; Sent: 09/24/2012 16:02:46 PROFESSIONAL ATHLETE Subject: RE: General Message Thanks! Addendum by JONATHON POTTER CNP on 24 September 2012 15:58:34 PROFESSIONAL ATHLETE From: JONATHON POTTER CNP To: KARELY CHOW; Sent: 09/24/2012 15:58:34 PROFESSIONAL ATHLETE Subject: RE: General Message Called in 30 day supply to [facility]. From: KARELY CHOW To: JONATHON POTTER CNP; Sent: 09/24/2012 15:14:51 PROFESSIONAL ATHLETE Subject: General Message Patient requesting med refills for Lisinopril, levothyroxine, Atenolol from [facility] pharmacy. Looks like her meds were printed off on 09/12/12 but cannot tell if pt has hardcopies or if they were faxed to pharmacy. Called [facility] and they are confused as well since they do not have a current rx for the meds requested. Source: [facility] POWERCHART Document Id: [id number] Miscellaneous - Conversion, Historical Provider Ser - 09/24/2012 8:34 AM PROFESSIONAL ATHLETE Ambulatory Vitals Height Weight Ambulatory Vitals Height Weight Entered On: 09/24/2012 8:35 PROFESSIONAL ATHLETE Performed On: 09/24/2012 8:34 PROFESSIONAL ATHLETE by TITA CALDWELL Vitals/Ht/Wt Systolic Blood Pressure : 130mmHg Diastolic Blood Pressure : 80mmHg NIBP Mean : 97mmHg BP Location : Right upper extremity Blood Pressure Cuff Size : Regular TITA CALDWELL - 09/24/2012 8:34 PROFESSIONAL ATHLETE [facility] POWERCHART Document Id: [id number] documented in this encounter Plan of Treatment Upcoming Encounters Date Type Specialty Care Team Description 08/24/2022 Appointment Radiation Oncology Rickey Barry M.D. [address] [place] [phone] (Wo rk) documented as of this encounter Visit Diagnoses Not on filedocumented in this encounter
--- OUTSIDE RECORDS SUMMARY | 2022-08-22 14:50 | XMS_ITS | Encounter Summary ---
:1940 Author Organization [facility] Address [address] [place] [address] Care Team Providers Name Role Phone Unavailable Primary Care Provider Unavailable Encounter Details Date Type Department Care Team Description 11/09/2014 Hospital Encounter HX NO MAPPING Donya Alexander V., APR N, C.N.P. [address] [place], [place] [phone] (Wo rk) Social History [...] MISA, C.N.P. - 11/09/2014 2:12 PM CST [id number] PHYS[address]IAN Dr. Zapien. HISTORY OF PRESENT ILLNESS [...] all and would like to try and [place]. I did tell her that she would get Senna-S 2 at bedtime tonight as senna given in the evening or at bedtime is to help promote a bowel movement in the morning. Her last BM was yesterday which was a medium. The Percocet will be discontinued, even though it was reduced yesterday. She will be started on [place] 5/325 one for pain 1 to 5; [...] tightens. Nursing will continue to monitor, notify SOAP SLABBER/MD of changes. This was a face to face conversational visit for approximately 15 minutes. Donya Alexander CNP/tello cc: Sen[place] [address] Electronically Signed By: DONYA ALEXANDER CNP On: 11/17/2014 08:07 AM Source: [facility] MHSDOLBEYNONRADSYS Document Id: [id number] CH BREAKER documented in this encounter Plan of Treatment Upcoming Encounters Date Type Specialty Care Team Description 08/24/2022 Appointment Radiation Oncology Rickey Barry M.D. [address] [place] [address] [phone] (Wo rk) documented as of this encounter Visit Diagnoses Not on filedocumented in this encounter Additional Health Concerns Assessment Noted Time PHQ-9 Depression Total Score: 1 09/16/2014 9:15 AM CROTCH BREAKER documented as of this encounter
--- OUTSIDE RECORDS SUMMARY | 2022-08-22 14:50 | XMS_ITS | Encounter Summary ---
:1940 Author Organization [facility] Address [address] [place] [address] Care Team Providers Name Role Phone Unavailable Primary Care Provider Unavailable Encounter Details Date Type Department Care Team Description 07/05/2014 Hospital Encounter HX [facility] FAMILYPRA Naomi Parker, MISA, C.N.P., D. N.P. [address] [place], [place] [address] (Wo rk) Social History [...] Body Mass Index 35.2 09/25/2013 8:26 AM APPOINTMENT CLERK documented in this encounter Medications at [...] SKINNER CNP On: 08/29/2014 10:37 AM Source: [facility] MHSDOLBEYNONRADSYS Document Id: [id number] INTMENT CLERK documented in this encounter Miscellaneous Notes Telephone Encounter - Conversion, Historical Provider Ser - 09/07/2014 10:27 AM CST *Phone Message Document Contains Addenda Addendum by JEREMIAH ELLSWORTH on 07 September 2014 14:00:49 APPOINTMENT CLERK From: JEREMIAH ELLSWORTH ([facility] Hotel Office Manager) To: [facility] Family Medicine Nurse; Sent: 09/07/2014 14:00:49 APPOINTMENT CLERK Subject: RE: *Phone Message scheduled Addendum by JOSHUA RUBIN LPN on 07 September 2014 12:01:39 APPOINTMENT CLERK From: JOSHUA RUBIN LPN ([facility] Family Medicine Nurse) To: [employer] Hotel Office Manager; Sent: 09/07/2014 12:01:39 APPOINTMENT CLERK Subject: FW: *Phone Message Addendum by ELIZABETH SKINNER CNP on 07 September 2014 11:36:25 APPOINTMENT CLERK From: ELIZABETH SKINNER CNP To: DAVID Pascual Family Medicine Nurse; Sent: 09/07/2014 11:36:25 APPOINTMENT CLERK Subject: RE: *Phone Message labs ordered based on last year if new concerns no gurantee additional labs may not be needed. BMP, TSH, Lipid panel, and AST From: JEREMIAH ELLSWORTH (DAVID Pascual Hotel Office Manager) To: ELIZABETH SKINNER CNP; Sent: 09/07/2014 10:27:03 APPOINTMENT CLERK Subject: *Phone Message Caller is: ( x [...] ( ) Source: [facility] [employer] Document Id: [id number] Miscellaneous - Joshua Rubin, L.P.N. - 07/05/2014 1:38 PM CDT Adult Mechanic And Welder Intake/History Adult Mechanic And Welder Intake/History Entered On: 07/05/2014 13:40 CDT Performed On: 07/05/2014 13:38 CDT by JOSHUA RUBIN TIRE SETTER Intake Chief Complaint : left knee pain [...] Communication Mode : Verbal Languages : Serbian Is Patient Female and 13-50 no hysterectomy [...] RUBIN LPN - 07/05/2014 13:38 CDT Source: [facility] Document Id: [id number] documented in this encounter Plan of Treatment Upcoming Encounters Date Type Specialty Care Team Description 08/24/2022 Appointment Radiation Oncology Rickey Barry M.D. [address] [place], [place] [phone] (Wo rk) documented as of this encounter Visit Diagnoses Not on filedocumented in this encounter
--- OUTSIDE RECORDS SUMMARY | 2022-08-22 14:50 | XMS_ITS | Encounter Summary ---
:1940 Author Organization [facility] Address [address] [place] [address] Care Team Providers Name Role Phone Unavailable Primary Care Provider Unavailable Encounter Details Date Type Department Care Team Description 09/12/2012 Hospital Encounter HX [facility] Naomi Parker, MISA, C.N.P., D. N.P. [address] [place], [place] [address] (Wo rk) Social History [...] Comments Blood Pressure 130/84 09/12/2012 8:37 AM CLAIMS CONSULTANT Pulse 68 09/12/2012 8:37 AM CLAIMS CONSULTANT Temperature - - Respiratory Rate 16 09/12/2012 8:37 AM CLAIMS CONSULTANT Oxygen Saturation - - Inhaled Oxygen Concentration - - Weight 88.5 kg (195 lb 1.7 oz) 09/12/2012 8:37 AM CLAIMS CONSULTANT Height 162.2 cm (5' 3.86) 09/12/2012 8:37 AM CLAIMS CONSULTANT Body Mass Index 33.64 09/12/2012 8:37 AM CLAIMS CONSULTANT documented in this encounter Medications at [...] APRN, C.N.P. - 09/12/2012 8:28 AM CST [id number] CHIEF COMPLAINT/REASON FOR VISIT Annual exam HISTORY OF PRESENT ILLNESS The patient is a 71-year-old female who presents to the clinic for her annual exam. Patient has a history of obesity and is currently following the Weight Watchers diet. Patient is also exercising fivetimes a week by using treadmill and weights. Patient's mammogram is due in October. However, she will be in [place] at this time. Patient is debating whether or not to have her mammogram done in [place] or when she returns in January. Patient [...] history of asthma and is followed by [facility] boxcar weigher. She also has a history of hyperlipidemia [...] current. 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 - 09/12/2012 12:10 PM CLAIMS CONSULTANT Quality Measures Quality Measures Entered On: 09/12/2012 12:11 CLAIMS CONSULTANT Performed On: 09/12/2012 12:10 CLAIMS CONSULTANT by JONATHON SKINNER CNP Asthma Asthma Control Test (ACT) Score : 23 ED visits past yr for asthma w/o hospital stay : 0 Hospitalizations/Overnight Stays in Past yr for Asthma : 0 Asthma Action Plan Provided/Reviewed : Reviewed with the patient Asthma Action Plan Copy : Scanned into EMR JONATHON SKINNER CNP - 09/12/2012 12:10 CLAIMS CONSULTANT Source: [facility] iQ TechnologiesCHART Document Id: [id number] MS CONSULTANT Miscellaneous - Jonathon Parker APRN C.N.P. - 09/12/2012 12:03 PM CLAIMS CONSULTANT Ambulatory Patient Summary [facility] [address] [place] [address] Visit Information Name: AINSLEY AGUAYO [facility] Number: [id number] Current Date: 09/12/2012 12:02:59 Physicians [...] FamilyPrac BP Recheck Your Goals/Additional instructions: Source: [facility] POWERCHART Document Id: [id number] MS CONSULTANT Miscellaneous - Jonathon Parker APRN, C.N.P. - 09/12/2012 12:02 PM CLAIMS CONSULTANT Ambulatory Depart Summary [address] [address] Visit Information Name: AINSLEY AGUAYO [facility] Number: [id number] Visit Date: 09/12/2012 12:02:58 Attending [...] your provider for clarification. Additional Information: Source: [facility] POWERCHART Document Id: [id number] MS CONSULTANT Miscellaneous - Conversion, Historical Provider Ser - 09/12/2012 8:43 AM CLAIMS CONSULTANT Health Assessment Health Assessment Entered On: 09/12/2012 8:44 CLAIMS CONSULTANT Performed On: 09/12/2012 8:43 CLAIMS CONSULTANT by TITA CALDWELL Health Assessment Complete Health Assessment Complete or Modified : Modified Health Assessment TITA CALDWELL - 09/12/2012 8:43 CLAIMS CONSULTANT Nutrition Nutrition Risk Factors by History Adult : None TITA CALDWELL - 09/12/2012 8:43 CLAIMS CONSULTANT Functional Living Situation : Home independently Current Daily Living Assistance : None TITA CALDWELL - 09/12/2012 8:43 CLAIMS CONSULTANT Dependent Habits Tobacco Use/Currently Using : No Exposure to Tobacco Smoke : Other: Never Smoked Smoking Status : Never smoker Alcohol Use : Yes TITA CALDWELL - 09/12/2012 8:43 CLAIMS CONSULTANT Caffeine Use Grid Caffeine Use : Current Type : Coffee, Soft drinks Frequency : Daily Amount : 1 cup & 2 cans TITA CALDWELL - 09/12/2012 8:43 CLAIMS CONSULTANT Recreational Drug Use Grid Drug Use : None HUAHSANAYLASACHA Lindsay - 09/12/2012 8:43 CLAIMS CONSULTANT AUDIT Tool How Often Do You Have A Drink : Monthly or less How Many Drinks in a Day When Drinking : 1 or 2 Six or More Drinks On One Occassion : Never Audit Phase 1 Score : 1 AYLA CALDWELLSACHA Lindsay 09/12/2012 8:43 CLAIMS CONSULTANT Psychosocial Domestic Abuse Concerns : None Number of Children : 1 son 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 TITA CALDWELL 09/12/2012 8:43 CLAIMS CONSULTANT Advance Directive Advanced Directives : No ITTA CALDWELL 09/12/2012 8:43 CLAIMS CONSULTANT Educ Needs Learning Style Preference Adult Grid Patient : None Family : None TITA CALDWELL 09/12/2012 8:43 CLAIMS CONSULTANT [facility] Document Id: [id number] Miscellaneous - Conversion, Historical Provider Ser - 09/12/2012 8:37 AM CLAIMS CONSULTANT Adult Crane Manager Intake/History Adult Crane Manager Intake/History Entered On: 09/12/2012 8:42 CLAIMS CONSULTANT Performed On: 09/12/2012 8:37 CLAIMS CONSULTANT by TITA CALDWELL Intake Chief Complaint : [...] : 33.64kg/m2 JAVI AYLASACHA Lindsay 09/12/2012 8:37 CLAIMS CONSULTANT Subjective Pain Symptoms : No TITA CALDWELL 09/12/2012 8:37 CLAIMS CONSULTANT Dependent Habits Tobacco Use/Currently Using : No Exposure to Tobacco Smoke : Other: Never Smoked Smoking Status : Never smoker TITA CALDWELL - 09/12/2012 8:37 CLAIMS CONSULTANT Caffeine Use Grid Caffeine Use : Current Type : Coffee, Soft drinks Frequency : Daily Amount : 1 cup & 2 cans Last Use : yesterday after noon TITA CALDWELL - 09/12/2012 8:37 CLAIMS CONSULTANT Recreational Drug Use Grid Drug Use : None TITA CALDWELL - 09/12/2012 8:37 CLAIMS CONSULTANT Allergy Allergies (Active) Cats Estimated Onset Date: Unspecified ; Reactions: unknown ; Created By: PHILLIP JARAMILLO MD; Reaction Status: Active ; Category: Other ; Substance: Cats ; Type: Allergy ; Updated By: PHILLIP JARAMILLO; Reviewed Date: 09/12/2012 8:34 CLAIMS CONSULTANT Dust Mite Estimated Onset Date: Unspecified ; Created By: KVNG PAULINO LPN; Reaction Status: Active ; Category: Drug ; Substance: Dust Mite ; Type: Allergy ; Updated By: KVNG PAULINO LPN; Reviewed Date: 09/12/2012 8:34 CLAIMS CONSULTANT prochlorperazine Estimated Onset Date: Unspecified ; Reactions: unknown ; Created By: BRAD JARAMILLO MD; Reaction Status: Active ; Category: Drug ; Substance: prochlorperazine ; Type: Allergy ; Updated By: PHILLIP JARAMILLO MD; Reviewed Date: 09/12/2012 8:34 CLAIMS CONSULTANT Source: [facility] [employer] Document Id: [id number] documented in this encounter Plan of Treatment Upcoming Encounters Date Type Specialty Care Team Description 08/24/2022 Appointment Radiation Oncology Rickey Barry M.D. [address] [place] [phone] (Wo rk) documented as of this encounter Visit Diagnoses Not on filedocumented in this encounter
--- OUTSIDE RECORDS SUMMARY | 2022-08-22 14:50 | XMS_ITS | Encounter Summary ---
:1940 Author Organization [facility] Address [address] [place] [address] Care Team Providers Name Role Phone Unavailable Primary Care Provider Unavailable Encounter Details Date Type Department Care Team Description 03/31/2014 Hospital Encounter HX [facility] Elizabeth Parker, MISA, C.N.P., D.N.P. [address] [place], [place] [address] (Wo rk) Social History [...] AM CDT General Message From: ELIZABETH POTTER GERMAN TEACHER To: ELISE AGUAYO Sent: 03/31/2014 11:31:27 CDT [...] Lvl 10.0 mg/dL (8.5 - 10.5) Source: [facility] POWERCHART Document Id: [id number] Electronically signed by Conversion, [facility] Early Childhood Lead Teacher [id number] at 03/05/2017 1:50 AM CDT documented in this encounter Plan of Treatment Upcoming Encounters Date Type Specialty Care Team Description 08/24/2022 Appointment Radiation Oncology Rickey Barry M.D. [address] [place] [phone] (Wo rk) documented as of this [...]
--- OUTSIDE RECORDS SUMMARY | 2022-08-22 14:50 | XMS_ITS | Encounter Summary ---
:1940 Author Organization [facility] Address [address] [place] [address] Care Team Providers Name Role Phone Unavailable Primary Care Provider Unavailable Encounter Details Date Type Department Care Team Description 08/06/2012 Hospital Encounter HX [facility] FAMILY[facility] Naomi Parker, MISA, C.N.P., D. N.P. [address] [place], [place] [address] (Wo rk) Social History [...] MD; Reviewed Date: 08/01/2012 10:35 CDT Source: [facility] [employer] Document Id: [id number] Radha Ling L.PAntwanNAntwan - 08/06/2012 8:47 AM [...] MD; Reviewed Date: 08/01/2012 10:35 CDT Source: [employer] Document Id: [id number] documented in this encounter Miscellaneous Notes Miscellaneous [...] RADHA RUCKER - 08/06/2012 8:51 CDT Source: [employer] Document Id: [id number] documented in this encounter Plan of Treatment Upcoming Encounters Date Type Specialty Care Team Description 08/24/2022 Appointment Radiation Oncology Rickey Barry M.D. [address] [place], [place] [phone] (Wo rk) documented as of this encounter Visit Diagnoses Not on filedocumented in this encounter
--- OUTSIDE RECORDS SUMMARY | 2022-08-22 14:50 | XMS_ITS | Encounter Summary ---
:1940 Author Organization [facility] Address [address] [place] [address] Care Team Providers Name Role Phone Unavailable Primary Care Provider Unavailable Encounter Details Date Type Department Care Team Description 03/09/2014 Hospital Encounter HX [facility] FAMILYPRA Naomi Parker, MISA, C.N.P., D. N.P. 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 Band-Aid was applied. No complications. [place] protocol was followed and please see universal protocol sheet scanned into EMR. Patient was instructed to call immediately if she develops redness, pain, or swelling. Patient verbalizes understanding and agrees with plan of care. Elizabeth Skinner CNP/tello Electronically Signed By: ELIZABETH SKINNER CNP On: 05/27/2014 06:24 PM Modified by and Electronically Signed by: ELIZABETH SKINNER CNP On: 05/27/2014 06:24 PM Source: [facility] MHSDOLBEYNONRADSYS Document Id: [id number] documented in this encounter Miscellaneous Notes Miscellaneous - Joshua Rubin, L.P.N. - 03/09/2014 3:00 PM CDT Adult Stripper And Taper Intake/History Adult Stripper And Taper Intake/History Entered On: 03/09/2014 15:01 CDT Performed On: 03/09/2014 15:00 CDT by ERICHSEN, DWYN E SALES REPRESENTATIVE ADDING MACHINES Intake Chief Complaint : cortisone injection in [...] Communication Mode : Verbal Languages : Welsh JOSHUA RUBIN LPN - 03/09/2014 15:00 CDT [...] RUBIN LPN - 03/09/2014 15:00 CDT Source: [employer] Document Id: [id number] documented in this encounter Plan of Treatment Upcoming Encounters Date Type Specialty Care Team Description 08/24/2022 Appointment Radiation Oncology Rickey Barry M.D. [address] [place], [place] [phone] (Wo rk) documented as of this encounter Visit Diagnoses Not on filedocumented in this encounter
--- OUTSIDE RECORDS SUMMARY | 2022-08-22 14:51 | XMS_ITS | Encounter Summary ---
:1940 Author Organization [facility] Address [address] [place] [address] Care Team Providers Name Role Phone Unavailable [...] Radiation Oncology Rickey Barry M.D. [address] [place], [place] [phone] (Wo rk) documented as [...] MD. [id number] 17-Jun-20 03 15:04 Anusha Pacheco APRN C.N.P., D.N.P. IMG BI PROCEDURES Echocardiogram (06/17/2003 9:59 AM CDT) Anatomical Region Laterality Modality Echocardiography Specimen (Source) Anatomical Collection Method Collection Time Re ceived Time Location / / Volume Laterality 06/17/2003 9:59 AM CDT Historical Provider CV ECHO PROCEDURES documented in this encounter Visit Diagnoses Not on filedocumented in this encounter
--- OUTSIDE RECORDS SUMMARY | 2022-08-22 14:51 | XMS_ITS | Encounter Summary ---
:1940 Author Organization [facility] Address [address] [place] [address] Care Team Providers Name Role Phone Unavailable Primary Care Provider Unavailable Encounter Details Date Type Department Care Team Description 10/17/2011 Hospital Encounter HX [facility] Srinivas Andrade M.D. [address] [place] [phone] (Wo rk) Social History Tobacco [...] Parker, MISA, C.N.P. - 10/17/2011 11:26 AM REGISTERED RESPIRATORY THERAPIST Results Notification Document Contains Addenda Addendum by KVNG PAULINO LPN on 17 October 2011 16:44:20 REGISTERED RESPIRATORY THERAPIST Spoke with patient earlier & given below results & information prescription sent to [facility] From: ELIZABETH POTTER HIGH SPEED OPERATOR To: KVNG PAULINO LPN Sent: 10/17/2011 11:26:03 REGISTERED RESPIRATORY THERAPIST ! Show up: 10/17/2011 17:26:03 [facility] Subject: Results Notification Actions: Notify patient of results Source: [facility] POWERCHART Document Id: [id number] Electronically signed by Nikos, [facility] Sample Case Porter [id number] at 03/09/2017 1:23 PM CDT documented in this encounter Plan of Treatment Upcoming Encounters Date Type Specialty Care Team Description 08/24/2022 Appointment Radiation Oncology Rickey Barry M.D. [address] [place], [place] [phone] (Wo rk) documented as of this encounter Procedures Procedure Name Priority Date/Time Associated Diagnosis Comme nts DIPSTICK, U Routine 10/17/2011 9:09 AM Results f or this REGISTERED RESPIRATORY THERAPIST procedure are i n the results section. BACTERIAL CULTURE, Routine 10/17/2011 9:09 AM Res ults for this AEROBIC, URINE REGISTERED RESPIRATORY THERAPIST procedure are in the results section. documented in this encounter Results (ABNORMAL) Dipstick, Urine (10/17/2011 9:09 AM REGISTERED RESPIRATORY THERAPIST) [facility] Method Time Signature Source Clean Void POWERCHART Urine HXUr Color Yellow POWERCHART Appearance Cloudy (A) POWERCHART Glucose Negative Negative POWERCHART HXBILIRUBIN Negative Negative POWERCHART Ketones, QL(U) Negative Negative POWERCHART Specific 1.020 1.020 POWERCHART [place], POCT, U HXBLOOD Small (A) Negative POWERCHART pH, POCT, Urine 6.0 5.0 - 8.0 POWERCHART Protein, Ur, Dip Negative Negative POWERCHART Urobilinogen 0.2 0.2 - 1.0 POWERCHART HXNITRITE Positive (A) Negative POWERCHART Leukocyte Large (A) Negative POWERCHART Esterase Specimen (Source) Anatomical Collection Method Collection Time Re ceived Time Location / / Volume Laterality Urine 10/17/2011 9:09 AM REGISTERED RESPIRATORY THERAPIST Elizabeth Parker APRN, C.N.P., D.N.P. LAB URINE ORDERA BLES Performing Organization Address City/State/ZIP Code Phon e Number POWERCHART Bacterial Culture, Aerobic, Urine (10/17/2011 9:09 AM REGISTERED RESPIRATORY THERAPIST) [facility] Method Time Signature Bacterial POWERCHART Culture, Aerobic, Urine HXFinal See POWERCHART scanned/paper report. Test performed at [facility]. Specimen (Source) Anatomical Collection Method Collection Time Re ceived Time Location / / Volume Laterality Urine, Clean 10/17/2011 9:09 AM Catch REGISTERED RESPIRATORY THERAPIST Elizabeth Parker APRN, C.N.P., D.N.P. LAB MICROBIOLOGY - GENERAL ORDERABLES Performing Organization Address City/State/ZIP Code Phon e Number POWERCHART documented in this encounter Visit Diagnoses Not on filedocumented in this encounter
--- OUTSIDE RECORDS SUMMARY | 2022-08-22 14:51 | XMS_ITS | Encounter Summary ---
:1940 Author Organization [facility] Address [address] [place] [address] Care Team Providers Name Role Phone Unavailable Primary Care Provider Unavailable Encounter Details Date Type Department Care Team Description 10/20/2009 Hospital Encounter HX NO MAPPING Jennifer Deal M.D. [address] [place] [address] (Wo rk) Social History Tobacco Use [...] Radiation Oncology Rickey Barry M.D. [address] [place] [phone] (Wo rk) documented as of this encounter Procedures Procedure Name Priority Date/Time Associated Diagnosis Comme nts DX CHEST AP OR PA Routine 10/20/2009 3:16 PM Resu lts for this AND LATERAL 2 VIEWS [employer] procedur e are in the results section. documented in this encounter Results DX Chest AP or PA and Lateral 2 Views (10/20/2009 3:16 PM [employer]) Anatomical Region Laterality Modality Chest N/A Radiographic Imaging Specimen (Source) Anatomical Collection Method Collection Time Re ceived Time Location / / Volume Laterality 10/20/2009 3:16 PM [employer] Addenda Addendum by Ned Rai M.D. o n 10/20/2009 3:16 PM [employer] RAD^^^OW XR Chest 2 Views 10/20/2009 15:16:00 Addendum by Ned Rai M.D. o n 10/20/2009 3:16 PM [employer] RAD^^^MA XR CHEST 2 VIEWS 10/20/2009 15:16:00 Impressions 10/20/2009 3:34 PM [employer] No acute findings. Mild cardiomegaly. Narrative 10/20/2009 3:34 PM [employer] HISTORY: Asthma. ?? COMPARISON: None. ?? FINDINGS: Heart size is mildly enlarged. There is no vascular congestion. No pneumothorax or pleural f luid. No pulmonary edema or consolidating infiltrates. No hyperinfla tion. No peribronchial thickening. No acute bony findings. Mild aortic arch atherosclerosis. ?? Procedure Note Piter Hdz M.D. / Kristi Rai M.D. - 02/28/2017 HISTORY: Asthma. COMPARISON: None. [...]
--- OUTSIDE RECORDS SUMMARY | 2022-08-22 14:51 | XMS_ITS | Encounter Summary ---
:1940 Author Organization [facility] Address [address] [place] [address] Care Team Providers Name Role Phone Unavailable Primary Care Provider Unavailable Encounter Details Date Type Department Care Team Description 05/23/2011 Hospital Encounter HX [facility] FAMILYPRA Naomi Parker, MISA, C.N.P., D. N.P. [address] [place], [place] [address] (Wo rk) Social History [...] 08/24/2022 Appointment Radiation Oncology Rickey Barry M.D. [address] [place] [phone] (Wo rk) documented as of this encounter Visit Diagnoses Not on filedocumented in this encounter
--- OUTSIDE RECORDS SUMMARY | 2022-08-22 14:51 | XMS_ITS | Encounter Summary ---
:1940 Author Organization [facility] Address [address] [place] [address] Care Team Providers Name Role Phone Unavailable Primary Care Provider Unavailable Encounter Details Date Type Department Care Team Description 09/03/2011 Hospital Encounter [facility]X [facility] Naomi Parker, MISA, C.N.P., D. N.P. [address] [place], [place] [address] (Wo rk) Social History [...] APRN, C.NAvtar - 09/03/2011 12:00 AM CST [id number] CHIEF COMPLAINT/ REASON FOR VISIT Annual medication [...] history of asthma. She also sees an radio tower technician at [facility]. Patient takes Flonase, albuterol, Claritin and Advair [...] SKINNER CNP On: 09/14/2011 11:46 AM Source: [facility] MHSDOLBEYNONRADSYS Document Id: [id number] ICAL ASSOCIATE documented in this encounter Nursing Notes Conversion, Historical Provider Ser - 09/06/2011 10:36 AM CST Appointments at [facility] Document Contains Addenda Addendum by KVNG PAULINO LPN on 06 September 2011 10:48 CLINICAL ASSOCIATE Bone Density : 10:am Mammogram: 11:15 am Modified by and Electronically Signed by: KVNG PAULINO LPN On: 09/06/2011 10:48 AM Appointments scheduled for [facility] : Mammogram screening & bone density screening 10/16/2011; along with Dermatology with Gonzalez Briceño, [facility] 5th floor, desk East 5 at 1:05 pm Electronically Signed By: KVNG PAULINO LPN On: 09/06/2011 10:39 AM Source: [facility] [employer] Document Id: [id number] documented in this encounter Miscellaneous Notes Miscellaneous - Jonathon Parker APRN, C.NAvtar - 09/04/2011 3:32 PM CLINICAL ASSOCIATE Results Notification Document Contains Addenda Addendum by KVNG PAULINO LPN on 05 September 2011 15:04:05 CLINICAL ASSOCIATE Stopped in given results. Addendum by KVNG PAULINO LPN on 04 September 2011 17:55:42 CLINICAL ASSOCIATE Attempted to reach - no answer, will try again tomorrow. From: JONATHON SKINNER RESEARCH CHEMICAL ENGINEER To: KVNG PAULINO LPN Sent: 09/04/2011 15:32:59 CLINICAL ASSOCIATE ! Show up: 09/04/2011 21:32:59 [facility] Subject: Results Notification Actions: Notify patient of results Due Date/Time: 09/04/2011 16:32:00 CLINICAL ASSOCIATE Source: [facility] [employer] Document Id: [id number] Electronically signed by Conversion, [facility] Automatic Seamer [id number] at 03/10/2017 12:23 PM CDT Jonathon Paz APRN, C.N.P. - 09/03/2011 11:23 AM CLINICAL ASSOCIATE Results Notification Document Contains Addenda Addendum by KVNG PAULINO LPN on 04 September 2011 15:18:55 CLINICAL ASSOCIATE Return call received - will pharmacy picking technician copy of results tomorrow - at hotel front desk clerk. Addendum by KVNG PAULINO LPN on 03 September 2011 17:07:43 CLINICAL ASSOCIATE Attempted to reach - no answer, left voice message & # if further questions. From: JONATHON SKINNER CNP To: KVNG PAULINO LPN Sent: 09/03/2011 11:23:16 CLINICAL ASSOCIATE ! Show up: 09/03/2011 17:23:16 [facility] Subject: Results Notification Actions: Notify patient of results Due Date/Time: 09/03/2011 12:22:00 CLINICAL ASSOCIATE Source: [facility] [employer] Document Id: [id number] Electronically signed by Conversion, [facility] Automatic Seamer [id number] at 03/10/2017 12:23 PM CDT Jonathon Paz APRN, C.N.P. - 09/03/2011 11:00 AM CLINICAL ASSOCIATE Quality Measures Quality Measures Entered On: 09/10/2011 8:48 CLINICAL ASSOCIATE Performed On: 09/03/2011 11:00 CLINICAL ASSOCIATE by JONATHON SKINNER CNP Asthma Asthma Control Test (ACT) Score : 24 ED visits past yr for asthma w/o hospital stay : 0 Hospitalizations/Overnight Stays in Past yr for Asthma : 0 Asthma Action Plan Provided/Reviewed : Reviewed with the patient Asthma Action Plan Copy : Scanned into EMR JONATHON SKINNER CNP - 09/10/2011 8:47 CLINICAL ASSOCIATE Source: [facility] POWERCHART Document Id: [id number] CLINICAL ASSOCIATE!7 ICAL ASSOCIATE Miscellaneous - Conversion, Historical Provider Ser - 09/03/2011 8:38 AM CLINICAL ASSOCIATE Adult Cutter And Presser Intake/History Adult Cutter And Presser Intake/History Entered On: 09/03/2011 8:40 CLINICAL ASSOCIATE Performed On: 09/03/2011 8:38 CLINICAL ASSOCIATE by KVNG PAULINO LPN Intake Temperature Oral : 36.7C(Converted to: 98.1DegF) Peripheral Pulse Rate : 64/min Respiratory Rate : 16/min Systolic Blood Pressure : 126mmHg Diastolic Blood Pressure : 74mmHg NIBP Mean : 91mmHg BP Location : Right upper extremity Heart Rhythm : Regular KVNG PAULINO LPN - 09/03/2011 8:40 CLINICAL ASSOCIATE Chief Complaint : Refill meds Actual Weight : 85.7kg(Converted to: 188lb 15oz) Weight Source : Standing scale Dosing Weight Clinic : 85.70kg KVNG PAULINO LPN - 09/03/2011 8:38 CLINICAL ASSOCIATE Subjective Pain Symptoms : No KVNG PAULINO LPN - 09/03/2011 8:38 CLINICAL ASSOCIATE Dependent Habits Tobacco Use/Currently Using : No Tobacco Use/Last 12 months : No Smoking Status : Never smoker Alcohol Use : Yes KVNG PAULINO LPN - 09/03/2011 8:38 CLINICAL ASSOCIATE Caffeine Use Grid Caffeine Use : Current Type : Coffee, Soft drinks Frequency : Daily Amount : 1 cup & 2 cans Last Use : yesterday after noon KVNG PAULINO LPN - 09/03/2011 8:38 CLINICAL ASSOCIATE Recreational Drug Use Grid Drug Use : None KVNG PAULINO LPN - 09/03/2011 8:38 CLINICAL ASSOCIATE Allergy Allergies (Active) Cats Estimated Onset Date: Unspecified ; Reactions: unknown ; Created By: HPILLIP JARAMILLO MD; Reaction Status: Active ; Category: [...] MD; Reviewed Date: 04/13/2011 9:12 CDT Source: [facility] [employer] Document Id: [id number] CLINICAL ASSOCIATE!10 documented in this encounter Plan of Treatment Upcoming Encounters Date Type Specialty Care Team Description 08/24/2022 Appointment Radiation Oncology Rickey Barry M.D. [address] [place] [phone] (Wo rk) documented as of this encounter Visit Diagnoses Not on filedocumented in this encounter
--- OUTSIDE RECORDS SUMMARY | 2022-08-22 14:51 | XMS_ITS | Encounter Summary ---
:1940 Author Organization [facility] Address [address] [place] [address] Care Team Providers Name Role Phone Unavailable Primary Care Provider Unavailable Encounter Details Date Type Department Care Team Description 10/04/2011 Hospital Encounter HX [facility] FAMILY[facility] Naomi Parker, MISA, C.N.P., D. N.P. [address] [place], [place] [address] (Wo rk) Social History [...] APRN, C.N.P. - 10/04/2011 12:00 AM CST [id number] CHIEF COMPLAINT/ REASON FOR VISIT Asthma exacerbation. HISTORY OF PRESENT ILLNESS The patient is a 70-year-old female who presents to the clinic for an asthma exacerbation. Patient was having coughing attacks and shortness of breath. Patient was wheezing. She is seen at [facility] at the allergy and asthma clinic. Yesterday she called them and she began taking her prednisone 40 milligrams for 5 days. She has been using her albuterol inhaler. She is now requesting Tessalon Perles at nighttime to help with sleep. She did not tolerate Robitussin with codeine. She also has a history of a recent UTI after returning from [facility] for a mission trip. She started Cipro [...] continue her prednisone given to her from [facility] from her asthma action plan. She will [...] SKINNER CNP On: 10/09/2011 08:58 AM Source: [facility] MHSDOLBEYNONRADSYS Document Id: [id number] CTOR OF SALES SUPPORT documented in this encounter Nursing Notes Conversion, Historical Provider Ser - 10/19/2011 12:53 PM CST Urine culture sensatives received Notified patient (by cell #) of need to change antibotic again - not normal strain of E-coli seen here; not sensitive to either antibotics given, now have sensative received to changed new antibotic that it is sensative to. Prescription sent to [facility] Electronically Signed By: KVNG PAULINO LPN On: 10/19/2011 12:56 PM Source: [facility] POWERCHART Document Id: [id number] documented in this encounter Miscellaneous Notes Miscellaneous - Elizabeth Parker APRN, C.N.P. - 10/04/2011 10:19 AM DIRECTOR OF SALES SUPPORT Ambulatory Patient Summary [address] [address] Visit Information Name: ELISE GANDHI Current Date: [...] No Appointments found Your Goals/Additional instructions: Source: [facility] POWERCHART Document Id: [id number] CTOR OF SALES SUPPORT Miscellaneous - Elizabeth Parker APRN, C.N.P. - 10/04/2011 10:19 AM DIRECTOR OF SALES SUPPORT Ambulatory Depart Summary [address] [address] Visit Information Name: ELISE GANDHI Current Date: [...] 200 mg oral tablet) Additional Information: Source: [facility] POWERCHART Document Id: [id number] CTOR OF SALES SUPPORT Miscellaneous - Conversion, Historical Provider Ser - 10/04/2011 9:55 AM DIRECTOR OF SALES SUPPORT Adult Cnc Service Technician Intake/History Adult Cnc Service Technician Intake/History Entered On: 10/04/2011 9:57 DIRECTOR OF SALES SUPPORT Performed On: 10/04/2011 9:55 DIRECTOR OF SALES SUPPORT by PRAKASH ACEVEDO Intake Chief Complaint : [...] : 87.60kg PRAKASH ACEVEDO - 10/04/2011 9:55 DIRECTOR OF SALES SUPPORT Subjective Pain Symptoms : No PRAKASH ACEVEDO - 10/04/2011 9:55 DIRECTOR OF SALES SUPPORT Dependent Habits Tobacco Use/Currently Using : No Smoking Status : Never smoker Alcohol Use : Yes PRAKASH ACEVEDO - 10/04/2011 9:55 DIRECTOR OF SALES SUPPORT Caffeine Use Grid Caffeine Use : Current Type : Coffee, Soft drinks Frequency : Daily Amount : 1 cup & 2 cans Last Use : yesterday after noon PRAKASH ACEVEDO - 10/04/2011 9:55 DIRECTOR OF SALES SUPPORT Recreational Drug Use Grid Drug Use : None PRAKASH ACEVEDO - 10/04/2011 9:55 DIRECTOR OF SALES SUPPORT Allergy Allergies (Active) Cats Estimated Onset Date: [...] MD; Reviewed Date: 04/13/2011 9:12 CDT Source: [facility] POWERCHART Document Id: [id number] DIRECTOR OF SALES SUPPORT!33 documented in this encounter Plan of Treatment Upcoming Encounters Date Type Specialty Care Team Description 08/24/2022 Appointment Radiation Oncology Rickey Barry M.D. [address] [place] [phone] (Wo rk) documented as of this encounter Visit Diagnoses Not on filedocumented in this encounter
--- OUTSIDE RECORDS SUMMARY | 2022-08-22 14:51 | XMS_ITS | Encounter Summary ---
:1940 Author Organization [facility] Address [address] [place] [address] Care Team Providers Name Role Phone Unavailable [...] Chi C.N.P. - 02/05/2011 12:00 AM CDT [id number] IMPRESSION/REPORT/PLAN 1. Asthma. ACT score today is an 11. I did review asthma action plan with her today and she will continue on her Prednisone up through 7 days. She will follow up if gets worse with wheezing or shortness of breath. She will also follow up in one month either here or with her primary at [facility] for recheck of her asthma and to [...] flare up. She was recently in the [facility] with her son who has cats and she did get what she calls an asthma flare. She started prednisone 20 mg daily and is currently on day 6 of that. She will continue for one more day per the recommendation of her physician at [facility]. She is also continuing to use Albuterol as well. She does [place] for her primary care and for her [...] MICHELLE CHI CNP On: 02/08/2011 08:21 Source: [facility] MHSDOLBEYNONRADSYS Document Id: [id number] documented in this encounter Miscellaneous Notes Miscellaneous [...] CHI CNP - 02/05/2011 16:39 CDT Source: [facility] POWERCHART Document Id: [id number] CDT!5 Miscellaneous - Michelle Chi C.N.P. - 02/05/2011 4:32 PM CDT Ambulatory Patient Summary [address] [address] Visit Information Name: ELISE GANDHI Current Date: [...] No Appointments found Your Goals/Additional instructions: Source: [facility] POWERCHART Document Id: [id number] Electronically signed by Nikos, [facility] Wood Sawyer [id number] at 03/10/2017 6:33 PM CDT Miscellaneous - Michelle Chi, C.N.P. - 02/05/2011 4:32 PM CDT Ambulatory Depart Summary [address] [address] Visit Information Name: ELISE GANDHI Current Date: 02/05/2011 16:32:14 Primary Care Provider: MICHELLE CHI [facility] ELISE GANDHI has been given the following [...] not getting better. either follow up at [place] or here in one month for recheck of the asthma action plan. Yes - Current list of reconciled medications is provided and explained to the patient and/or family, guardian/caregiver. Source: [facility] POWERCHART Document Id: [id number] Electronically signed by Nikos, [facility] Wood Sawyer [id number] at 03/10/2017 6:33 PM CDT Miscellaneous - Conversion, Historical Provider Ser - 02/05/2011 4:00 PM CDT Adult Storage Garage Manager Intake/History Adult Storage Garage Manager Intake/History Entered On: 02/05/2011 16:05 CDT Performed [...] MD; Reviewed Date: 02/05/2011 15:57 CDT Source: [facility] POWERCHART Document Id: [id number] CDT!33 documented in this encounter Plan of Treatment Upcoming Encounters Date Type Specialty Care Team Description 08/24/2022 Appointment Radiation Oncology Rickey Barry M.D. [address] [place] [phone] (Wo rk) documented as of this encounter Visit Diagnoses Not on filedocumented in this encounter
--- OUTSIDE RECORDS SUMMARY | 2022-08-22 14:51 | XMS_ITS | Encounter Summary ---
:1940 Author Organization [facility] Address [address] [place] [address] Care Team Providers Name Role Phone Unavailable [...] Chi C.N.P. - 08/23/2010 12:00 AM CST [id number] IMPRESSION/REPORT/PLAN 1. Physical exam satisfactory. Will schedule fro screening mammogram and screening dermatology appointment down at [place]. She was given a flu shot today. 2. Hypertension 3. Hyperlipidemia 4. Hypothyroidism. TSH, lipid panel and comprehensive panel pending. Will continue her medications of atenolol, Lisinopril, chlorthalidone, levothyroxine and Pravachol. Those will be renewed today. 5. Asthma. ACT 23 done at [place] August 21, 2010. The patient is on Symbicort and Albuterol. She will follow up as needed. Asthma action plan was given to her at that visit at [place] and she has no questions or concerns. [...] history of asthma and was seen in [place] for a recheck of that earlier this [...] Pap smear: N/A Colon screenin08/18/09 at [place] Depression: No Asthma: Yes. ACT score of 23 Lipids: 09/14 Tdap booster: 07/25/07 Pneumovax: 09/15/08 Influenza: Will done today VITAL SIGNS DATE/TIME 08/23/2010 WEIGHT 84.8 kg TEMPERATURE [id number] BMI 32 RESP RATE 18/ min PULSE [...] swelling, lesions or discharge noted from Bartholin's, Shawmut's or urethra. Bimanual exam performed. No CMT. [...] reflexes 2+. NLP/cmt Signed Michelle Gould RN, NEUROLOGY HOSPITALIST Family Nurse Practitioner Electronically Signed By:MICHELLE CHI CNP On 08/25/2010 11:13 AM Source: [facility] MHSDOLBEYNONRADSYS Document Id: [id number] R OPTIC ASSEMBLY WORKER documented in this encounter Nursing Notes Conversion, Historical Provider Ser - 09/08/2010 2:33 PM CST mammogram results from [facility] Called patient - informed of normal mammogram results. Electronically Signed By:KVNG PAULINO LPN On 09/08/2010 02:34 pm Source: [facility] POWERCHART Document Id: [id number] Michelle Chi C.N.P. - 08/23/2010 9:40 AM CST Asthma Assessment Asthma Assessment Entered On: 08/23/2010 9:41 FIBER OPTIC ASSEMBLY WORKER Performed On: 08/23/2010 9:40 FIBER OPTIC ASSEMBLY WORKER by MICHELLE CHI CNP History Co-Morbidities Asthma: Allergic rhinitis, Obesity, Sinusitis ED visits past yr for asthma w/o hospital stay: 0 Hospitalizations/Overnight Stays in Past yr for Asthma: 0 Number of Endotracheal Intubations: 0 B-2 Agonist Use: None Severity Classification: Mild Intermittent MICHELLE CHI CNP - 08/23/2010 9:40 FIBER OPTIC ASSEMBLY WORKER Asthma Precipitating Factors Grid Airborne Particles: Yes Animals: Yes House Dust: Yes Mold: Yes Upper Respiratory Infection: Yes MICHELLE CHI CNP - 08/23/2010 9:40 FIBER OPTIC ASSEMBLY WORKER Source: [employer] Document Id: [id number] FIBER OPTIC ASSEMBLY WORKER!14 R OPTIC ASSEMBLY WORKER documented in this encounter Miscellaneous Notes Miscellaneous - Michelle Chi C.N.P. - 08/23/2010 9:41 AM CST Quality Measures Quality Measures Entered On: 08/23/2010 9:42 FIBER OPTIC ASSEMBLY WORKER Performed On: 08/23/2010 9:41 FIBER OPTIC ASSEMBLY WORKER by MICHELLE CHI CNP BP/Tobacco/Misc Systolic Blood Pressure: 118mmHg Diastolic Blood Pressure: 78mmHg Tobacco Use/Currently Using: No Tobacco Use/Last 12 months: No MICHELLE CHI CNP - 08/23/2010 9:41 FIBER OPTIC ASSEMBLY WORKER Asthma Asthma Control Test (ACT) Score: 23 Asthma Action Plan Provided/Reviewed: Reviewed with the patient Asthma Action Plan Copy: Other: in [facility] chart from Aug 21, 2010 MICHELLE CHI CNP - 08/23/2010 9:41 FIBER OPTIC ASSEMBLY WORKER Source: [employer] Document Id: [id number] FIBER OPTIC ASSEMBLY WORKER!10 R OPTIC ASSEMBLY WORKER Miscellaneous - Michelle Chi C.N.P. - 08/23/2010 9:04 AM CST Ambulatory Patient Summary [address] [address] Visit Information Name: ELISE GANDHI Current Date: 08/23/2010 09:04:21 Primary Care Provider: MICHELLE CHI [facility] Your Medications Here is a list [...] No Appointments found Your Goals/Additional instructions: Source: [facility] POWERCHART Document Id: [id number] Electronically signed by Conversion, [facility] Breed To We[employer] Production Technician [id number] at 03/11/2017 4:13 AM CDT Miscellaneous - Michelle Chi, C.N.P. - 08/23/2010 9:04 AM CST Ambulatory Depart Summary [address] [address] Visit Information Name: ELISE GANDHI Current Date: 08/23/2010 09:04:20 Primary Care Provider: MICHELLE CHI [facility] ARNOL GARCIA ELISE GAVIRIA has been [...] to the patient and/or family, guardian/caregiver. Source: [facility] POWERCHART Document Id: [id number] Electronically signed by Nikos, [facility] [employer] Production Technician [id number] at 03/11/2017 4:13 AM CDT Miscellaneous - Conversion, Historical Provider Ser - 08/23/2010 8:18 AM FIBER OPTIC ASSEMBLY WORKER Ambulatory Vitals Height Weight Ambulatory Vitals Height Weight Entered On: 08/23/2010 8:20 FIBER OPTIC ASSEMBLY WORKER Performed On: 08/23/2010 8:18 FIBER OPTIC ASSEMBLY WORKER by KVNG PAULINO LPN Vitals/Ht/Wt Systolic Blood Pressure: 118mmHg Diastolic Blood Pressure: 78mmHg NIBP Mean: 91mmHg BP Location: Right upper extremity KVNG PAULINO LPN - 08/23/2010 8:18 FIBER OPTIC ASSEMBLY WORKER Source: [facility] POWERCHART Document Id: [id number] FIBER OPTIC ASSEMBLY WORKER!6 Miscellaneous - Conversion, Historical Provider Ser - 08/23/2010 8:14 AM FIBER OPTIC ASSEMBLY WORKER Adult Cabin Man Intake/History Adult Cabin Man Intake/History Entered On: 08/23/2010 8:18 FIBER OPTIC ASSEMBLY WORKER Performed On: 08/23/2010 8:14 FIBER OPTIC ASSEMBLY WORKER by KVNG PAULINO LPN Intake Chief Complaint: [...] 32kg/m2 KVNG PAULINO LPN - 08/23/2010 8:14 FIBER OPTIC ASSEMBLY WORKER Subjective Pain Symptoms: No KVNG PAULINO LPN - 08/23/2010 8:14 FIBER OPTIC ASSEMBLY WORKER Dependent Habits Tobacco Use/Currently Using: No Tobacco Use/Last 12 months: No Alcohol Use: Yes KVNG PAULINO LPN - 08/23/2010 8:14 FIBER OPTIC ASSEMBLY WORKER Caffeine Use Grid Caffeine Use: Current Type: Coffee, Soft drinks Frequency: Daily Amount: 1 cup & 2 cans Last Use: yesterday 4:30 pm KVNG PAULINO LPN - 08/23/2010 8:14 FIBER OPTIC ASSEMBLY WORKER Recreational Drug Use Grid Drug Use: None KVNG PAULINO LPN - 08/23/2010 8:14 FIBER OPTIC ASSEMBLY WORKER Allergies Allergies (Active) Cats Estimated Onset Date: Unspecified ; Reactions: unknown ; Created By: PHILLIP JARAMILLO MD; Reaction Status: Active ; Category: Other ; Substance: Cats ; Type: Allergy ; Updated By: PHILLIP JARAMILLO; Reviewed Date: 08/23/2010 8:13 FIBER OPTIC ASSEMBLY WORKER Dust Mite Estimated Onset Date: Unspecified ; Created By: KVNG PAULINO LPN; Reaction Status: Active ; Category: Drug ; Substance: Dust Mite ; Type: Allergy ; Updated By: KVNG PAULINO LPN; Reviewed Date: 08/23/2010 8:13 FIBER OPTIC ASSEMBLY WORKER prochlorperazine Estimated Onset Date: Unspecified ; Reactions: unknown ; Created By: BRAD JARAMILLO MD; Reaction Status: Active ; Category: Drug ; Substance: prochlorperazine ; Type: Allergy ; Updated By: PHILLIP JARAMILLO MD; Reviewed Date: 08/23/2010 8:13 FIBER OPTIC ASSEMBLY WORKER Source: [facility] [employer] Document Id: [id number] FIBER OPTIC ASSEMBLY WORKER!34 documented in this encounter Plan of Treatment Upcoming Encounters Date Type Specialty Care Team Description 08/24/2022 Appointment Radiation Oncology Rickey Barry M.D. [address] [place] [address] [phone] (Wo rk) documented as of this encounter Visit Diagnoses Not on filedocumented in this encounter
--- OUTSIDE RECORDS SUMMARY | 2022-08-22 14:51 | XMS_ITS | Encounter Summary ---
:1940 Author Organization [facility] Address [address] [place] [address] Care Team Providers Name Role Phone Unavailable Primary Care Provider Unavailable Encounter Details Date Type Department Care Team Description 04/13/2011 Hospital Encounter HX [facility] FAMILYPRA Tino Horn P.A.-C. [address] [place] [address] (Wo rk) Social History [...] Horn P.A.-C. - 04/13/2011 12:00 AM CDT [id number] CHIEF COMPLAINT/REASON FOR VISIT Followup of her [...] HORN PA-C On: 04/16/2011 01:24 PM [facility] Document Id: [id number] documented in this encounter Miscellaneous Notes Miscellaneous - Apolonia Horn P.A.-C. - 04/13/2011 9:39 AM CDT Ambulatory Patient Summary [address] [address] Visit Information Name: AINSLEY GANDHI Current Date: [...] No Appointments found Your Goals/Additional instructions: Source: [facility] POWERCHART Document Id: [id number] Miscellaneous - Apolonia Horn P.A.-C. - 04/13/2011 9:39 AM CDT Ambulatory Depart Summary [address] [address] Visit Information Name: AINSLEY GANDHI Current Date: [...] to the patient and/or family, guardian/caregiver. Source: [facility] POWERCHART Document Id: [id number] Miscellaneous - Conversion, Historical Provider Ser - 04/13/2011 9:14 AM CDT Adult Ship Self Defense System Mk1 Operator Intake/History Adult Ship Self Defense System Mk1 Operator Intake/History Entered On: 04/13/2011 9:19 CDT Performed [...] MD; Reviewed Date: 04/13/2011 9:12 CDT Source: [facility] [employer] Document Id: [id number] CDT!30 documented in this encounter Plan of Treatment Upcoming Encounters Date Type Specialty Care Team Description 08/24/2022 Appointment Radiation Oncology Rickey Barry M.D. [address] [place] [phone] (Wo rk) documented as of this encounter Visit Diagnoses Not on filedocumented in this encounter
--- OUTSIDE RECORDS SUMMARY | 2022-08-22 14:51 | XMS_ITS | Encounter Summary ---
:1940 Author Organization [facility] Address [address] [place] [address] Care Team Providers Name Role Phone Unavailable [...] Radiation Oncology Rickey Barry M.D. [address] [place], [place] [phone] (Wo rk) documented as [...] 06/18/2003 1:56 PM CDT 18-Jun-2003 13:26:00 ??Exam: [id number] Indications: screening ORIGINAL REPORT - 18-Jun-2003 13:56:00 Diverticulosis. ??Patulous ileocecal nicolas ve. ??Otherwise normal colon and terminal ileum. Electronically signed by: ?? Mely Lyon MD, [phone] 18-Jun-2003 13:56 ?Nisha Gudino ?? [id number] 18-Jun-2003 13:56 Procedure Note Tommy Gudino M.D. - 01/14/2018Formattin g of this note might be different from the original. 18-Jun-2003 13:26:00 Exam: [id number] nostic Indications: screening ORIGINAL REPORT - 18-Jun-2003 13:56:00 Diverticulosis. Patulous ileocecal valve . Otherwise normal colon and terminal ileum. Electronically signed by: Mely Lyon MD, [phone] 18-Jun-2003 13:56 Nisha Gudino MD -[id number] 18-Jun-2003 13:56 Anusha Pacheco APRN, C.N.P., D.N.P. IMG FLUOROSCOPY PRO CEDURES documented in this encounter Visit Diagnoses Not on filedocumented in this encounter
--- OUTSIDE RECORDS SUMMARY | 2022-08-22 14:51 | XMS_ITS | Encounter Summary ---
:1940 Author Organization [facility] Address [address] [place] [address] Care Team Providers Name Role Phone Unavailable Primary Care Provider Unavailable Encounter Details Date Type Department Care Team Description 11/05/2011 Hospital Encounter HX [facility]ILY[facility] Naomi Parker, MISA, C.N.P., D. N.P. [address] [place], [place] [address] (Wo rk) Social History [...] Comments Blood Pressure 120/80 11/05/2011 11:14 AM WOOD HEEL FLAP INSERTER Pulse 68 11/05/2011 11:14 AM WOOD HEEL FLAP INSERTER Temperature - - Respiratory Rate 20 11/05/2011 11:14 AM WOOD HEEL FLAP INSERTER Oxygen Saturation - - Inhaled Oxygen Concentration - - Weight 86.5 kg (190 lb 11.2 oz) 11/05/2011 11:14 AM WOOD HEEL FLAP INSERTER Height - - Body Mass Index - [...] APRN, C.N.P. - 11/05/2011 12:00 AM CST [id number] CHIEF COMPLAINT/ REASON FOR VISIT Cold. HISTORY [...] SKINNER CNP On: 11/06/2011 10:57 AM Source: [facility] MHSDOLBEYNONRADSYS Document Id: [id number] HEEL FLAP INSERTER documented in this encounter Nursing Notes Conversion, Historical Provider Ser - 06/04/2012 4:47 PM CDT Change pharmacy Pt called wanting to change pharmacy to [facility] fax# [phone]. Pravastatin, Lisinopril, Atenolol, Chlorothalidone, Synthroid. [facility]# [id number] along with on coverletter. Will fax rx's to [facility]. Electronically Signed By: KARELY CHOW On: 06/04/2012 04:49 PM Source: [facility] POWERCHART Document Id: [id number] Conversion, Historical Provider Ser - 11/09/2011 3:22 PM CST Prior Authorization Called [facility] for a Prior authorization for Nitrofurantioin Reference # [id number] , I did this over the phone today, will know the outcome in a few day. I called . Electronically Signed By: PRAKASH ACEVEDO On: 11/09/2011 03:27 PM Source: [facility] POWERCHART Document Id: [id number] documented in this encounter Miscellaneous Notes Telephone Encounter - Duc Ling L.P.N. - 11/14/2011 9:21 AM WOOD HEEL FLAP INSERTER Phone Message From: DUC RUCKER Sent: 11/14/2011 09:21:25 WOOD HEEL FLAP INSERTER Subject: Phone Message Caller is: ( ) Patient ( ) Mother ( ) Father ( ) Spouse ( ) Daughter ( ) Son ( ) Pharmacy ( X ) Other: Physician: Jonathon Skinner CNP Patient Reason for Call: Message: Appeal for prescribed medication that is not sensitive to bacteria vs what [facility] companysuggests. Advice/Action: Called Dental Hygienist Mobile Coordinator at [employer]. on Nov 12, 2011 10:20am and left a message regarding the patient's sensitivities to ciprofloaxin, cephalexin sulfamethoxzole etc. And Microbid that was prescibed was not sensitive to the bacteria and can be used. Attemped to call again Dental Hygienist Mobile Coordinator at [employer]. on Nov 14, 2011 9:05am. Left a [...] back cell phone number ( ) Source: [facility] POWERCHART Document Id: [id number] Miscellaneous - Jonathon Parker APRN, C.N.P. - 11/05/2011 11:45 AM WOOD HEEL FLAP INSERTER Ambulatory Patient Summary [address] [address] Visit Information Name: AINSLEY GANDHI Current Date: 11/05/2011 11:45:05 Primary Care Provider: JONATHON SKINNER [facility] Your Medications Here is a list [...] No Appointments found Your Goals/Additional instructions: Source: [facility] POWERCHART Document Id: [id number] HEEL FLAP INSERTER Miscellaneous - Jonathon Parker APRN, C.N.P. - 11/05/2011 11:45 AM WOOD HEEL FLAP INSERTER Ambulatory Depart Summary [address] [address] Visit Information Name: AINSLEY GANDHI Current Date: 11/05/2011 11:45:02 Attending Provider: JONATHON SKINNER CNP Primary Care Provider: JONATHON SKINNER TELECOMMUNICATIONS SWITCH TECHNICIAN AINSLEY GANDHI has been given the following [...] 200 mg oral tablet) Additional Information: Source: [facility] POWERCHART Document Id: [id number] HEEL FLAP INSERTER Miscellaneous - Duc Ling LAntwanPAntwanN. - 11/05/2011 11:14 AM CST Adult Health Services Information Specialist Intake/History Adult Health Services Information Specialist Intake/History Entered On: 11/05/2011 11:19 WOOD HEEL FLAP INSERTER Performed On: 11/05/2011 11:14 WOOD HEEL FLAP INSERTER by DUC RUKCER Intake Chief Complaint : Allergies or Asthma [...] : 86.50kg DUC RUCKER - 11/05/2011 11:14 WOOD HEEL FLAP INSERTER Subjective Pain Symptoms : No DUC RUCKER - 11/05/2011 11:14 WOOD HEEL FLAP INSERTER Dependent Habits Tobacco Use/Currently Using : No Exposure to Tobacco Smoke : Other: Never Smoked Smoking Status : Never smoker DUC RUCKER - 11/05/2011 11:14 WOOD HEEL FLAP INSERTER Caffeine Use Grid Caffeine Use : Current Type : Coffee, Soft drinks Frequency : Daily Amount : 1 cup & 2 cans Last Use : yesterday after noon DUC RUCKER - 11/05/2011 11:14 WOOD HEEL FLAP INSERTER Recreational Drug Use Grid Drug Use : None ALKA DUC Cordova - 11/05/2011 11:14 WOOD HEEL FLAP INSERTER Allergy Allergies (Active) Cats Estimated Onset Date: Unspecified ; Reactions: unknown ; Created By: PHILLIP JARAMILLO MD; Reaction Status: Active ; Category: Other ; Substance: Cats ; Type: Allergy ; Updated By: PHILLIP JARAMILLO; Reviewed Date: 11/05/2011 11:09 WOOD HEEL FLAP INSERTER Dust Mite Estimated Onset Date: Unspecified ; Created By: KVNG PAULINO LPN; Reaction Status: Active ; Category: Drug ; Substance: Dust Mite ; Type: Allergy ; Updated By: KVNG PAULINO LPN; Reviewed Date: 11/05/2011 11:09 WOOD HEEL FLAP INSERTER prochlorperazine Estimated Onset Date: Unspecified ; Reactions: unknown ; Created By: BRAD JARAMILLO MD; Reaction Status: Active ; Category: Drug ; Substance: prochlorperazine ; Type: Allergy ; Updated By: PHILLIP JARAMILLO MD; Reviewed Date: 11/05/2011 11:09 WOOD HEEL FLAP INSERTER Source: [facility] POWERCHART Document Id: [id number] WOOD HEEL FLAP INSERTER!31 HEEL FLAP INSERTER documented in this encounter Plan of Treatment Upcoming Encounters Date Type Specialty Care Team Description 08/24/2022 Appointment Radiation Oncology Rickey Barry M.D. [address] [place] [phone] (Wo rk) documented as of this encounter Visit Diagnoses Not on filedocumented in this encounter
--- OUTSIDE RECORDS SUMMARY | 2022-08-22 14:51 | XMS_ITS | Encounter Summary ---
:1940 Author Organization [facility] Address [address] [place] [address] Care Team Providers Name Role Phone Unavailable Primary Care Provider Unavailable Encounter Details Date Type Department Care Team Description 03/19/2011 Hospital Encounter HX [facility] FAMILY[facility] Tino Horn P.A.-C. [address] [place] [address] (Wo rk) Social History Tobacco [...] Horn P.A.-C. - 03/19/2011 12:00 AM CDT [id number] CHIEF COMPLAINT/REASON FOR VISIT Travel immunizations. 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 She in general has been in good health. She is a . Her in [place] and she has decided that she wants to travel to [facility] because she has not been there. She [...] At that time same time she could package pick up her malaria prophylaxis which could be mefloquine [...] HORN PA-C On: 03/21/2011 08:39 AM Source: [facility] MHSDOLBEYNONRADSYS Document Id: [id number] documented in this encounter Miscellaneous Notes Miscellaneous - Apolonia Horn P.A.-C. - 03/19/2011 5:16 PM CDT Ambulatory Patient Summary [address] [address] Visit Information Name: AINSLEY GANDHI Current Date: [...] Appointments found Your Goals/Additional instructions: Source: [facility] POWERCHART Document Id: [id number] Electronically signed by Nikos, [facility] Finisher Cold Rolling [id number] at 03/10/2017 9:00 PM CDT Miscellaneous - Apolonia Horn P.A.-C. - 03/19/2011 5:16 PM CDT Ambulatory Depart Summary [address] [address] Visit Information Name: AINSLEY GANDHI Current Date: 03/19/2011 17:16:37 Primary Care Provider: [facility] AINSLEY GANDHI has been given the [...] to the patient and/or family, guardian/caregiver. Source: [facility] [employer] Document Id: [id number] Electronically signed by Conversion, [facility] Finisher Cold Rolling [id number] at 03/10/2017 9:00 PM CDT Miscellaneous - [...] PAULINO LPN - 03/19/2011 13:46 CDT [facility] Document Id: [id number] CDT!8 Miscellaneous - Conversion, Historical Provider Ser - 03/19/2011 1:41 PM CDT Advance Directive Advance Directive Entered On: 03/19/2011 13:41 CDT Performed On: 03/19/2011 13:41 CDT by KVNG PAULINO LPN Advance Directive Advanced Directives: No KVNG PAULINO LPN - 03/19/2011 13:41 CDT [facility] Document Id: [id number] CDT!3 Miscellaneous - Conversion, Historical Provider Ser - 03/19/2011 1:41 PM CDT Adult Assistant Professor Of Chemistry Intake/History Adult Assistant Professor Of Chemistry Intake/History Entered On: 03/19/2011 13:46 CDT Performed On: 03/19/2011 13:41 CDT by KVNG PAULINO LPN Intake Chief Complaint: Need shots for trip to [facility] - Sep.10. + check spot on lower [...] MD; Reviewed Date: 03/19/2011 13:40 CDT Source: [facility] [employer] Document Id: [id number] CDT!31 documented in this encounter Plan of Treatment Upcoming Encounters Date Type Specialty Care Team Description 08/24/2022 Appointment Radiation Oncology Rickey Barry M.D. [address] [place] [phone] (Wo rk) documented as of this encounter Visit Diagnoses Not on filedocumented in this encounter
--- OUTSIDE RECORDS SUMMARY | 2022-08-22 14:51 | XMS_ITS | Encounter Summary ---
:1940 Author Organization [facility] Address [address] [place] [address] Care Team Providers Name Role Phone Unavailable Primary Care Provider Unavailable Encounter Details Date Type Department Care Team Description 04/04/2011 Hospital Encounter HX [facility] FAMILYPRA Tino Horn P.A.-C. [address] [place] [address] (Wo rk) Social History Tobacco [...] Horn P.A.-C. - 04/04/2011 12:00 AM CDT [id number] CHIEF COMPLAINT/REASON FOR VISIT Lesion on her [...] HORN PA-C On: 04/11/2011 09:58 AM Source: [facility] MHSDOLBEYNONRADSYS Document Id: [id number] documented in this encounter Miscellaneous Notes Miscellaneous - Apolonia Horn P.A.-C. - 04/04/2011 1:40 PM CDT Ambulatory Patient Summary [address] [address] Visit Information Name: AINSLEY GANDHI Current Date: [...] Ankur Visiting Provider Your Goals/Additional instructions: Source: [facility] POWERCHART Document Id: [id number] Electronically signed by Nikos [facility] Rn Neurosurgical [id number] at 03/10/2017 9:00 PM CDT Miscellaneous - Apolonia Horn P.A.-C. - 04/04/2011 1:40 PM CDT Ambulatory Depart Summary [address] [address] Visit Information Name: ARNOL GARCIAAINSLEYJOSI Current Date: [...] patient and/or family, guardian/caregiver. Source: [facility] POWERCHART Document Id: [id number] Electronically signed by Nikos [facility] R[facility] Neurosurgical [id number] at 03/10/2017 9:00 PM CDT Miscellaneous - Conversion, Historical Provider Ser - 04/04/2011 10:07 AM CDT Adult Cardroom Drawing Runner Intake/History Adult Cardroom Drawing Runner Intake/History Entered On: 04/04/2011 10:11 CDT Performed [...] No Respiratory Symptoms: Difficulty breathing with activity VIRGINIE PAULINOElida Norris LPN - 04/04/2011 10:07 CDT Dependent Habits Tobacco Use/Currently Using: No Tobacco Use/Last 12 months: No Alcohol Use: Yes VIRGINIE PAULINOElida Jr MICA MINER - 04/04/2011 10:07 CDT Caffeine Use Grid Caffeine Use: Current Type: Coffee, Soft drinks Frequency: Daily Amount: 1 cup & 2 cans Last Use: 4 pm yesterday afternoon LORAKVNG Carroll LPN - 04/04/2011 10:07 CDT Recreational Drug Use Grid Drug Use: None VIRGINIE PAULINOElida Jr ANKUSH - 04/04/2011 10:07 CDT Allergy Allergies (Active) [...] MD; Reviewed Date: 04/04/2011 10:07 CDT Source: [facility] POWERCHART Document Id: [id number] CDT!31 documented in this encounter Plan of Treatment Upcoming Encounters Date Type Specialty Care Team Description 08/24/2022 Appointment Radiation Oncology Rickey Barry M.D. [address] [place] [phone] (Wo rk) documented as of this [...] Time Signature HXLvl IV Surg Performed POWERCHART [facility] Comment: Test Performed by: [facility] Dpt of Lab Med and Pathology [address] [place] [address] Child Care Attendant School: Michael marquis III, M.D. Specimen Anatomical Collection Method Collection Time Receive d Time (Source) Location / / Volume Laterality Tissue 04/04/2011 11:00 04/05/2011 6:49 AM CDT AM CDT Historical Provider LAB SURG PATH ORDERABLES Performing Organization Address City/State/ZIP Code Phon e Number POWERCHART Dermatopathology Consult (04/04/2011 11:00 AM CDT) [facility] Signature [facility] [id number] [facility] POWERCHART [facility] Comment: RESULT: Apolonia Horn M.D. HXDrm Exam Addr-[place] See Comment POWERCH ART Comment: [facility] [address] HXDrm Exam Site-[place] See Comment POWERCH ART Comment: A. ??Received in formalin labeled with t he patient's name and medical record number as [id number] labeled rig ht leg is a 2.5 x 0.6 cm pale mccarthy unoriented skin ellipse excised to a depth of 0.3 cm. There is a 1.0 x 0.1 cm ill-defined lesi on centrally located on the skin surface. ??The specimen is inked, s erially sectioned and submitted as follows A1 tips; A2 remaini ng specimen. HXDrm Exam [facility] See Comment POWERCH ART Comment: RESULT: A. Right Leg, Skin: Irr itated seborrheic keratosis HXDrm Exam Sign-[place] See Comment POWERCH ART Comment: RESULT: 04/10/2011 12:27 ??Interpreted by: Francesco Spangler Report electronically signed by Inocencia Pendleton DO Transcribed by: [email or web address] 04/10/2011 12:10:17 Test Performed by: [facility] Dpt of Lab Med and Pathology [address] [place] [address] Child Care Attendant School: Michael marquis III, M.D. Specimen (Source) Anatomical Collection Method Collection Time Re ceived Time Location / / Volume Laterality Tissue 04/04/2011 11:00 AM CDT Apolonia Horn P.A.-C. LAB PATH DERM ORDERABLES Performing Organization Address City/State/ZIP Code Phon e Number POWERCHART documented in this encounter Visit Diagnoses Not on filedocumented in this encounter
--- OUTSIDE RECORDS SUMMARY | 2022-08-22 14:52 | XMS_ITS | Clinical Summary ---
:1940 Author Organization [employer] [place] [address] Care Team Providers Name Role Phone Varsha Garcia LUMBER PLANER Primary Care Provider Allergies Active Allergy Reactions [...] of skin. fluticasone (50 mcg Inhale 1 [place] 16 g 07/04/20 Active per actuation) nasal to both 21 solution (FLONASE) nostrils once daily if needed for rhinitis or allergies. montelukast Take 1 Tablet 90 Tablet 3 02/20/20 Acti ve (SINGULAIR) 10 mg (10 mg) by 22 tablet mouth once daily. pravastatin Take 1 Tablet 90 Tablet 3 02/20/20 Acti ve (PRAVACHOL) 40 mg (40 mg) by 22 tablet mouth once daily. fluticasone Inhale 1 Puff 180 Each 02/24/20 Acti ve propion-salmeteroL by mouth once [...] (40 mg) by 22 mouth once daily. HYDROcodone-acetaminop Take 1 to 2 14 Tablet 0 07/26/20 Active hen (NORCO) 5-325 mg tablets by 22 per tablet mouth every 6 hours As Needed for Pain; ondansetron (ZOFRAN Take 1 tablet 5 Tablet 0 07/26/20 Active ODT) 4 mg (4 mg) by 22 disintegrating tablet mouth every 8 hours As Needed for nausea and vomiting tiotropium bromide Inhale 2 Puffs 4 g 1 08/14/20 Active (Spiriva Respimat) by mouth once 22 1.25 mcg/actuation daily in the mist for inhalation morning. azithromycin Take 500 mg 6 Tablet 0 08/14/20 Activ e (ZITHROMAX) 250 mg today (day 1), 22 tablet then 250 mg for 4 days (days 2-5) albuterol HFA Inhale 2 Puffs 54 g 3 02/17/20 D iscontinued (PRO-AIR; VENTOLIN; by mouth every 22 022 (Other - add PROVENTIL) 90 4 hours if note to specify mcg/actuation inhaler needed for (E-cancel not wheezing. sent)) predniSONE (DELTASONE) Take 1 Tablet 20 Tablet 0 08/03/2001/06 10 mg tablet (10 mg) by 22 022 mouth once daily with a meal for 3 [...] CDT Respiratory Rate 16 11/05/2014 8:14 AM MANAGEMENT LEAD Oxygen Saturation 96% 03/23/2019 11:30 AM CDT Inhaled Oxygen Concentration - - Weight 101.2 kg (223 lb) 03/23/2019 11:30 AM CDT Height 161 cm (5' 3.39) 2014 7:04 AM MANAGEMENT LEAD Body Mass Index 39.02 2014 7:04 AM MANAGEMENT LEAD Plan of Treatment Upcoming Encounters Date Type Specialty Care Team Description 10/15/2022 Telemedicine Alexandra Jeff , MS, [facility] [address] IN [facility] [address] [address] [place] [address] (Wo rk) Health Maintenance Due Date Last [...] 65+ 06/07/2022 Medical Devices Implanted Type Area Sole Buffer Device Shelf Model / Identifier Expiration Serial / Date Lot [id number] - [id number] Ortho Left: DEPUY 01/07 1518-20-035 / Implanted: Qty: 1 on 2014 by Babatunde Mclain MD at [facility] Total Knee / Joint [id number] Description: Attune Patella Medialized D ome 35mm Cemented AOX [id number] - [id number] Left: Knee DEPUY [id number] / Implanted: Qty: 1 on 2014 by Babatunde Mclain MD at [facility] / [id number] Description: Attune Tibial Insert Fixed Bearing Posterior [...] Organization Address City/State/ZIP Code Phon e Number [facility] [address] [place] [address] LABORATORY-CENTRAL 1999 LABORATORY PATH TISSUE EXAM (07/26/2022 10:11 AM CDT) Component Value Ref Test Analysis Performed At [facility] gist Range Method Time Signature Case Report Pathology Report ?Case: [id number] ? 08/20/2022 [facility] Authorizing Provider: ??Barbra White MD ??Collected: ? 07/26/2022 1011 ? 5:42 PM HEALTH Ordering Location: ? L CENTRAL LAB ?Received: ?07/26/2022 1432 ? ALEJANDRA MOURA Pathologist: ? Fide Pearson MD ? ENTRAL Specimens: ?? A) - Left Haylee st Lump ? LABORATORY ? B) - Left Axillary H[place]go Lymph Node 1 ? C) - Left Axillary [place] Lymph Node 2 ? Amendment 08/20/2022 - Per 08/20/2022 ZOIE Ruth, the 5:42 PM HEALTH tissue was MANAGEMENT LEAD LABORATORY-C submitted to [facility] LABORATORY for Oncotype DX Breast Cancer testing, please see attached scanned report for results. Final Diagnosis A) LEFT BREAST, LUMPECTOMY: 2021 [facility] Amendment 1. Invasive ductal carcinoma, Alvaro grade I of III 5:42 PM HEALTH electronically ?a. Size: 15 mm MANAGEMENT LEAD LABORATOR Y-C signed by Lili, ?b. Core biopsy site is associated with tumor ENTRAL Fide Velazquez, 2. Ductal carcinoma in situ (DCIS), nucl ear grade 2, Cribriform and Solid type LABORATORY MD on 08/20/2022 3. Margins: at 5:41 PM ?a. Invasive carcinoma is > 5 ??mm from all margins Electronically ?b. DCIS is > 5 ??mm from all margins signed by Chris 4. Breast Ancillary Testing: Performed on prior case ([id number]) Clemencia Chavez MD ?a. Hormone Receptors: on 07/27/2022 at ?Estrogen receptor: Positive (99%, strong stai wilfrido) 3:01 PM ?Progesterone receptor: Positive (98%, strong staining) ?b. [...] 2. Negative for malignancy Clinical Breast cancer 08/20/2022 [facility] Information 5:42 PM HEALTH MANAGEMENT LEAD LABORATORY-C ENTRAL LABORATORY Gross A) Received fresh labeled wi th the patient's name and left breast lump, is a 74 g, 8 (M-L) x 7 (S-I) x 4.5 (A-P) cm portion of wire localized fibrofatty breast tissue, previously inked by the surgeon as follows: 08/20/2022 [facility] Description 5:42 PM HEALTH Anterior--[place] MANAGEMENT LEAD LABORATORY-C Posterior--Black ENTRAL Superior--Blue LABORATORY Inferior--Red Medial--Green [...] masses. ??A digital image has been uploaded. ??Software Educator sections are submitted as follows: 1. ??Sections [...] BREAST, LUMPECTOMY, INTRAOPERATIVE CONSULTATION (Gross Evaluation Only): 08/20/2022 [facility] Consultation 1. Tumor grossly identified 5:42 PM HEALTH 2. Biopsy site change is identified grossly MANAGEMENT LEAD LABORATORY-C 3. Margins are grossly negative by [...] surgical procedure. ??This testing was performed at: [place] [address] Microscopic The final 08/20/2022 [facility] Description diagnosis is 5:42 PM HEALTH based on MANAGEMENT LEAD LABORATORY-C microscopic ENTRAL examination of LABORATORY appropriate sections of all specimens. 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 Procedure: ?Excision (less than total mastectomy) ?? Specimen Laterality: ?Left TUMOR ?? Tumor Site: ?Clock position ?? : ?2 o'clock Histologic Type: ?Invasive carcinoma of no special type (ductal) Histologic Grade (Alvaro Histologic Score): ? Glandular (Acinar) / Tubular [...] (sentinel and non-sentinel): ?2 ?? Number of Hidalgo Nodes Examined: ?2 PATHOLOGIC STAGE CLASSIFICATION (pTNM, [...] Category: ?pT1c Regional Lymph Nodes Modifier: ?(sn): Hidalgo node(s) evaluated. pN Category: ?pN0 Comment(s): ?Ancillary studies block: A10 Additional 08/20/2022 ZOIE Information Interpreted at [facility], Central Laboratory - [address], [place] [address] 5:42 PM HEALTH [facility] LABORATORY-C ENTRAL LABORATORY Specimen Anatomical Collection Method Collection Time Receive d Time (Source) Location / / Volume Laterality Other (Left 07/26/2022 10:11 07/26/2022 2:32 Breast Lump) AM CDT PM CDT Specimen 07/26/2022 10:55 07/26/2022 2:32 (specimen) (Left AM CDT PM CDT Axillary [place] Lymph Node 1) Specimen 07/26/2022 11:03 07/26/2022 2:32 (specimen) (Left AM CDT PM CDT Axillary H[place]go Lymph Node 2) Narrative This result has an attachment that is no t available. Barbra Lamas MD PATHOLOGY/CYTOLOGY Performing Organization Address City/State/ZIP Code Phon e Number [facility] [address] [place] [address] LABORATORY-CENTRAL 2000 LABORATORY PATH BREAST CORE BIOPSY (06/22/2022 10:41 AM CDT) Component Value Ref Test Analysis Performed At [facility] gist Range Method Time Signature Case Report Pathology Report ?Case: [id number] ? 06/27/2022 ZOIE Authorizing Provider: ??Unkn own, Doctor ?Collected: ? 06/22/2022 1041 ? 1:18 PM HEAL TH Ordering Location: ? [facility] CENTRAL LAB ?Received: ?06/23/2022 0748 ? CDT LASHA PLUMMER-C Pathologist: ? Jj Lema MD ? ENTRAL [...] Drug Administration (FDA) cleared (test / vendor): [facility] ? Primary Antibody: ?4B5 ?? Test(s) Performed: [...] ?2,368 nuclei analyzed for Ki-67. Additional 06/27/2022 ibeatyou Information Interpreted at [facility], Central Laboratory - [address], [place] [address] 1:18 PM HEALTH CDT LABORATORY-C ENTRAL LABORATORY Specimen Anatomical Collection Method Collection Time Receive d Time (Source) Location / / Volume Laterality Other (Left 06/22/2022 10:41 06/23/2022 7:48 Breast) AM CDT AM CDT Doctor Unknown PATHOLOGY/CYTOLOGY Performing Organization Address City/State/ZIP Code Phon e Number [facility] [address] [place] [address] LABORATORY-CENTRAL 2000 LABORATORY from Last 3 Months Insurance Payer Benefit Plan / Subscriber ID Effective Dates Phone Addre ss Type Group MEDICARE PART A MEDICARE PART A [id number] 2007-Presen ATTN: CLAIMS - HB USE ONLY HB ONLY t [address] [place] [phone] MEDICARE PART B MEDICARE PART B [id number] 2007-Presen ATTN: CLAIMS - HB USE ONLY HB ONLY t [address] [place] [address] BLUE CROSS MR BC [place] [id number] 2014-Presen [address] [place] [address] BLUE CROSS BLUE CROSS [id number] 2016-Didier [address] [address] [place] BLUE en[place]AK[place] ONLY [phone] Sadiq Personal/Family Self 1940 [address] (Home) [place] [id number] Care Teams Client Support Professional Relationship Specialty Start Date End Date Varsha Garcia LUMBER PLANER PCP - General Emergency Medicine 03/07/[address] [place] [address] [place] [phone]
== END 2022-08-22 14:31 | disposition home or self-care (01) ==
LOC: RAD 14:31
PROVIDERS: PCP Nurse Practitioner Family; Visit Provider Nurse Practitioner Family
DX: Z85.3 Personal history of malignant neoplasm of breast (principal); Z79.811 Long term (current) use of aromatase inhibitors
CPT/HCPCS: 77080

== ENCOUNTER 2022-08-27 10:45 | Outpatient (RCR) | payer MEDICARE, BC, SELFPAY ==
[2022-08-09 11:06] LABS: Vitamin D 25 Hydroxy* 36 ng/mL (30-80)
--- NOTE | 2022-09-26 11:37 | ONC.NURNOTE ---
Call to patient in follow up to new start Letrozole. Patient states she is tolerating it well. She notes intermittent hot flashes, 1-2 per day lasting a few minutes. At this time, she states this is tolerable. Patient encouraged to call with questions or concerns.
== END 2023-02-05 23:59 | disposition home or self-care (01) ==
LOC: CCIC 10:45
PROVIDERS: PCP Nurse Practitioner Family; Visit Provider Nurse Practitioner Family
DX: C50.912 Malignant neoplasm of unspecified site of left female breast (principal); Z17.0 Estrogen receptor positive status [ER+]; Z79.811 Long term (current) use of aromatase inhibitors; M85.88 Other specified disorders of bone density and structure, other site
CPT/HCPCS: 36415; 82306; 99202; 99205; 99212; 99214

== ENCOUNTER 2023-02-04 09:57 | Outpatient (CLI) | payer MEDICARE, BC, SELFPAY ==
[2023-02-04 14:12] LABS: Albumin* 4.4 g/dL (3.3-5.0); Chloride* 102 mmol/L (96-114); Sodium* 139 mmol/L (135-149)
[2023-02-04 14:13] LABS: Potassium* 4.4 mmol/L (3.6-5.1)
[2023-02-04 14:14] LABS: Cholesterol* 171 mg/dL (90-199); Creatinine* 0.7 mg/dL (0.5-1.5); Estimated Glomerular Filt Rate 87 ml/min
[2023-02-04 14:15] LABS: Alanine Aminotransferase* 24 U/L (4-35); Alkaline Phosphatase* 81 U/L (40-150); Aspartate Amino Transferase* 19 U/L (12-35); Bilirubin Total* 0.4 mg/dL (0.1-1.5); Blood Urea Nitrogen* 15 mg/dL (7-30); Carbon Dioxide* 28 mmol/L (20-32); Glucose* 127 mg/dL (60-115); Total Protein* 7.8 g/dL (6.0-8.3); Triglycerides* 186 mg/dL (40-149)
[2023-02-04 14:16] LABS: HDL Cholesterol* 43 mg/dL (>=50); LDL Cholesterol Calculated 91 mg/dL (<100)
[2023-02-04 22:36] LABS: Creatinine Urine 193.9 mg/dL
[2023-02-04 22:40] LABS: Microalbumin Creatinine Ratio 10 mg/g (0-30); Microalbumin Urine 2 mg/dL
== END 2023-02-04 09:58 | disposition home or self-care (01) ==
PROVIDERS: PCP Nurse Practitioner Family; Visit Provider Nurse Practitioner Family
DX: E11.9 Type 2 diabetes mellitus without complications (principal); I10 Essential (primary) hypertension; E03.9 Hypothyroidism, unspecified; E78.5 Hyperlipidemia, unspecified
CPT/HCPCS: 80053; 80061; 82043; 82570; 84443

== ENCOUNTER 2023-05-24 10:01 | Outpatient (CLI) | payer MEDICARE, BC, SELFPAY ==
--- NOTE | 2023-05-24 10:15 | CRLHL7_ITS ---
For Patients: As a result of the Century Cures Act, medical imaging exams and procedure reports are released immediately into your electronic medical record. You may view this report before your referring provider. If you have questions, please contact your health care provider. BILATERAL SCREENING MAMMOGRAM WITH COMPUTER-AIDED DETECTION AND TOMOSYNTHESIS TECHNIQUE: CC and MLO views were obtained. These mammographic images have been obtained using full-field digital technique. These mammographic images were interpreted with the benefit of computer-aided detection. Breast Tomosynthesis was used in this interpretation. COMPARISON FILM: 05/23/22, 04/11/20, 04/07/19. FINDINGS: There are scattered areas of fibroglandular density IMPRESSION: There is no radiographic evidence for malignancy. ASSESSMENT: BI-RADS Category 2: Benign RECOMMENDATION: Routine screening mammogram in 1 year. A lay language report of this examination will be provided to the patient. Jj Bates M.D. Diagnostic Radiologist [email or web address] RADHA/Dictated by: Jj Bates MD @ 05/24/2023 11:02:00 AM (Electronically Signed)
== END 2023-05-24 10:02 | disposition home or self-care (01) ==
LOC: MAMMO 10:03
PROVIDERS: PCP Nurse Practitioner Family; Visit Provider Nurse Practitioner Family
DX: Z12.31 Encounter for screening mammogram for malignant neoplasm of breast (principal)
CPT/HCPCS: 77063; 77067

== ENCOUNTER 2023-06-19 10:00 | Outpatient (RCR) | payer MEDICARE, BC, SELFPAY ==
--- NOTE | 2022-07-12 14:26 | OT.OPLE ---
OT Outpatient Lymphedema Eval OT Outpatient Lymphedema Eval Start: 07/11/22 18:55 Freq: Status: Active Protocol: Document 07/12/22 14:02 AMB (Rec: 07/12/22 14:24 AMB [id number]) E-signed By Vivien Zuleta, OTR/L, CLT, CHIEF NURSE OT Outpatient Evaluation Details Type Type Eval Complexity Low OT OP Lymphedema Evaluation Insurance Information Insurance Information Medicare B Current Condition/Medical Diagnosis Referring Provider Dr Lamas Treatment Diagnosis Left breast cancer / lymphedema risk Date Of Onset 07/26/22 Medical Contraindications HTN,CA,Metal Implants, Respiratory,Arthritis Current Work Status Current Work Status Retired Current Work Status Comments 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 Pt will undergo left breast lumpectomy with SLN biopsy on 07/26/22. Pt states she tries to stay active likes to walk, spends her ashley in [place], used to do a lot of golfing, not as much lately. Pt denies any pain and states she is trying to stay very positive. Pt is a but has a very supportive son who will accompany her to her surgery and stay with her if needed. Pt is not sure if she will need chemo or radiation, likely radiation, but states she will not know until after surgery. Medical History Medical History Cancer Treatment/Surgery, Obesity,HTN,Arthritis Medical History Comments Pt has had BLE TKA, asthma, bundle branch block left, JAVIER, MAYTE, heart murmur, seasonal allergies, basal cell carcinoma, breat cyst, hyperlipidemia, hypothyrooidism, squamous cell carcinoma, intertrigo, OA, osteopenia, snoring. Surgical History Surgical History BLE TKA, cataract surgery, epicondylectomy, hysterectomy. Family History Family History of Lymphedema No Living Situation Current Living Situation Private Home/Apartment (Alone) Exercise History Does Patient Exercise Regularly Yes Exercise Comments Likes to walk Pain Pain No Loss of Function/Strength/Mobility Loss Of Function/Strength/Mobility No Previous Treatment Previous Treatment/Current Home Program NA Compression History Does Patient Currently Wear Compression No During Daytime Does Patient Currently Wear Compression No At Night Circumferential Measurements Upper Extremity Left Upper Extremity MCP 19.4 Palm 20.0 Wrist 17.0 10cm 22.0 20cm 27.4 30cm 36.6 40cm 41.0 Total 183.4 Difference 3.4 Right Upper Extremity MCP 19.5 Palm 20.0 Wrist 17.4 10cm 21.6 20cm 27.0 30cm 34.5 40cm 40.0 Total 180.0 Assessment Assessment Pt presents pre-operatively for initiation of lymphedema surveillance program. Following her 07/26/22 lumpectomy with SLN biopsy, pt will be at risk for lymphedema in her LUE / upper quadrant due to LN removal. Pt may need radiation which would add to her risk. Pt will benefit from skilled OT intervention for pt education, monitoring / surveillance in order to provide early detection / intervention to assure best positive outcomes with fewer lymphedema related complications if the need arises. Pt demonstrates good interest and motivation to be an active participant in her care. Pt asked multiple pertinent questions and received satisfactory answers. Pt was given contact info and encouraged to reach out if more questions arise. Pt does have a regular exercise routine and likes to keep active, lives a healthy lifestyle and acknowledges the value in regular medical visits Problem List Problem List Limited Knowledge of Lymphedema Treatment/Condition /Precautions,Limited Knowledge of Skin Care & Infection Precautions,Significant Risk For Infection For Lymphedema Related Complications,Does Not Have a HEP Patient Goals Patient Goals 1. Pt will demonstrate a general understanding of the lymphatic system, s/s of lymphedema, treatment of lymphedema, implications of untreated lymphedema, s/s of infection and the correlation of infection related to lymphedema. 3 months 2. Pt will be compliant with quarterly assessments for lymphedema surveillance in order to obtain early intervention with best outcomes if needed. 12 months Treatment Plan Treatment Plan Evaluation,Edema Control, Manual Therapy,Splinting,Wound Care/Scar Management, Therapeutic Exercise, Therapeutic Activities,Self- Care/Home Management Other Treatment Plan 1 visit in 4 wks, then quartly x 12 months Certification Certification I Certify That: Therapy Services Provided, Therapy Plan Established, Therapy Plan Reviewed Recertification Information Recertification Information Initial Certification Date 07/12/22 Recertification Due Date 10/11/22 Reasons to Continue Skilled Therapy Initiated OT today for lymphedema surveillance program. Provider Signature Shows Agreement With POC & Medical Necessity Physician Comment/Change Comment or Changes Physician NPI Number #
--- NOTE | 2023-03-08 13:56 | OT.OPLDN ---
OT Outpatient Lymphedema Daily Note OT Outpatient Lymphedema Daily Note Start: 07/11/22 18:55 Freq: Status: Active Protocol: Document 03/08/23 12:36 AMB (Rec: 03/08/23 13:55 AMB [id number]) E-signed By Vivien Zuleta, OTR/L, CLT, GROUP EXERCISE CLASS INSTRUCTOR OT OP Lymphedema Daily/Progress Note Note Type Note Type Recert/Progress Note Visit Number 3 Insurance Information Insurance Information Medicare B Insurance Information Comments Recert due on 06/11/23 Current Condition/Medical Diagnosis Referring Provider Dr Lamas Treatment Diagnosis Left breast cancer / lymphedema risk Date Of Onset 07/26/22 Medical Contraindications HTN,CA,Metal Implants, Respiratory,Arthritis Subjective Subjective Pt returns for her lymphedema surveillance. Since our last visit, pt has undergone 5 rounds of radiation and is feeling really good. She went to [place] for the winter. She feels very grateful that her cancer journey has gone so well, expresses much gratitude for her cancer team, especially Dr Lamas and her staff. Pt has not had any concerns for lymphedema. Circumferential Measurements Upper Extremity Left Upper Extremity MCP 19.2 Palm 19.7 Wrist 16.5 10cm 22.1 20cm 27.0 30cm 36.5 40cm 40.2 Total 181.2 Right Upper Extremity MCP 19.5 Palm 20.0 Wrist 17.4 10cm 21.6 20cm 27.0 30cm 34.5 40cm 40.0 Total 180.0 Treatment Self Care Provided review of patient education regarding the lymphatic system, s/s of lymphedema, treatment options for lymphedema, implications of untreated lymphedema, infection and it's correlation to lymphedema as well as implications of untreated infection. Provided pt information on radiation and how it can affect the lymphatic system. Had conversation of her actual risk factors and what areas of her body would be affected should she get lymphedema. Discussed risk reduction practices including skin care and monitoring strategies. Discussed the importance of regular exercise and healthy habits. Pt asked multiple questions and was satisfied with answers. Self Care Activity Minutes (minutes) 15 Therapeutic Activity Minutes (minutes) 7 Other Interventions Re-assessment of circumferential measurements. Provided training and practice in scar tissue mobilization. Assessment Pt continues to do well. no concerns for lymphedema at this time. Skin condition is excellent, no significant changes in UE measurements or tissue texture. Pt demonstrates good knowledge of the lymphatics and understands and practices risk reduction concepts. Pt will benefit from a final visit in June to wrap up her 12 month lymphedema surveillance program. Problem List Limited Knowledge of Lymphedema Treatment/Condition /Precautions,Limited Knowledge of Skin Care & Infection Precautions,Significant Risk For Infection For Lymphedema Related Complications,Does Not Have a HEP Patient Goals Patient Goals 1. Pt will demonstrate a general understanding of the lymphatic system, s/s of lymphedema, treatment of lymphedema, implications of untreated lymphedema, s/s of infection and the correlation of infection related to lymphedema. 3 months 2. Pt will be compliant with quarterly assessments for lymphedema surveillance in order to obtain early intervention with best outcomes if needed. 12 months Treatment Plan Treatment Plan Evaluation,Edema Control, Manual Therapy,Splinting,Wound Care/Scar Management, Therapeutic Exercise, Therapeutic Activities,Self- Care/Home Management Other Treatment Plan 1 visit in 4 wks, then quartly x 12 months Expected Frequency Comments Re-assess in 3 months. Expected Duration 12 months Expected Duration Comments Quarterly re-assessments. Treatment Minutes Timed Treatment Minutes 22 Total Timed Treatment Minutes 22 Occupational Therapy Billing Units Billing Units Self Care/Home Management 1 Certification Certification I Certify That: Therapy Services Provided, Therapy Plan Established, Therapy Plan Reviewed Recertification Information Recertification Information Initial Certification Date 07/12/22 Recertification Due Date 06/11/23 Reasons to Continue Skilled Therapy Pt is participating in a lymphedema surveillance program and will benefit from continued surveillance to provide early intervention and treatment in the event that she develops lymphedema in order to achieve best outcomes as well as continued pt education on risk reduction practices. Rehabilitation Potential Good Continued Plan of Care and Interventions Re-asses in 3 months, if no concerns will discharge to independent monitoring program . Provider Signature Shows Agreement With POC & Medical Necessity Physician Comment/Change Comment or Changes Physician NPI Number #
== END 2023-06-19 11:03 | disposition home or self-care (01) ==
PROVIDERS: PCP Nurse Practitioner Family; Visit Provider Surgery
DX: C50.912 Malignant neoplasm of unspecified site of left female breast (principal); I89.0 Lymphedema, not elsewhere classified; Z51.89 Encounter for other specified aftercare
CPT/HCPCS: 97110; 97140; 97162; 97164; 97165; 97530; 97535

== ENCOUNTER 2023-08-12 13:06 | Outpatient (RCR) | payer MEDICARE, BC, SELFPAY | END 2023-10-02 23:59 | disposition home or self-care (01) | LOC: CCIC 13:06 | PROVIDERS: PCP Nurse Practitioner Family; Visit Provider Physician Assistant | DX: C50.912 Malignant neoplasm of unspecified site of left female breast (principal); Z17.0 Estrogen receptor positive status [ER+]; Z79.811 Long term (current) use of aromatase inhibitors; M85.80 Other specified disorders of bone density and structure, unspecified site | CPT/HCPCS: 99212; 99214; 99215 ==

== ENCOUNTER 2024-03-12 09:10 | Outpatient (CLI) | payer MEDICARE, BC, SELFPAY ==
--- OUTSIDE RECORDS SUMMARY | 2024-03-12 09:17 | XMS_ITS ---
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 Past Plans No past plan information found. Radiation Treatments * Plan Last Treated On Elapsed Days Fractions Treated Prescribed Fraction Dose Prescribed Total Dose [id number] 09/05/2022 7 5 of 5 520 cGy 2,600 cGy Reference Point Last Treated On Elapsed Days Session Dose Total Dose [id number] 09/05/2022 7 520 cGy 2,600 cGy Resolved Problems Problem Noted Date Diagnosed Date Resolved Date 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
--- OUTSIDE RECORDS SUMMARY | 2024-03-12 09:17 | XMS_ITS | Clinical Summary ---
Author Organization [facility] Address [address] [place] [address] Care Team Providers Care Business Specialist Name Role Phone Elsewhere, Pcp Primary Care Provider Unavailabl e Source Comments Patient records contain information from all sites at [facility]. For routine questions regarding patient records, call [phone] during business hours, M-F 8:00 AM - 5:00 PM Central Time. Record requests for emergency care only can be directed to [phone] at any time.[facility] Allergies Active Allergy Reactions Criticality Noted Date Comments Animal Dander Shortness of breath (Reselect Reaction) 04/05/2016 Cat Dander Other (see comments) 12/21/2009 No reaction noted in [facility] Cat Hair Standardized Allergenic Extract Other (see comments) 07/09/2022 Codeine Other (see comments) High 11/18/2014 No reaction noted in [facility] House Dust Mite Other (see comments) 08/23/2010 No reaction noted in [facility] Hydrocodone GI intolerance 02/06/2018 Prochlorperazine Other (see comments) 0 No reaction noted in [facility] Medications Medication Sig Dispensed Refills Start Date End Date Status CALCIUM CARB/VIT D3/MINERALS (CALCIUM-VITAMIN D ORAL) Take 1 tablet by mouth 2 (two) times a day. 11/05/2011 Active DOCOSAHEXANOIC ACID/EPA (FISH OIL ORAL) 3 (three) times a day. 2 in AM 1 capsule in PM 12/21/2009 Active amoxicillin (AMOXIL) 500 mg capsule Take 2,000 mg by mouth. 09/27/2016 Active celecoxib (CeleBREX) 200 mg capsule Take 1 Capsule (200 mg) by mouth once daily with a meal. 90 capsule 3 05/25/2021 Active triamcinolone (KENALOG) 0.1 % cream Apply to affected area 1-2 times daily as needed. Avoid face and groin. 30 g 06/14/2021 Active fluticasone propionate (FLONASE) 50 mcg/actuation nasal sprayIndications:As thma Intrinsic (HCC) Administer 1 spray into each nostril daily as needed for rhinitis or allergies. 16 g 10/02/2021 Active hydroCHLOROthiazide (HYDRODIURIL) 25 mg tablet Take 1 Tablet (25 mg) by mouth once daily. 90 tablet 3 02/19/2022 Active levothyroxine (SYNTHROID, LEVOTHROID) 75 mcg tablet Take 1 Tablet (75 mcg) by mouth once daily. 90 tablet 3 02/19/2022 Active pravastatin (PRAVACHOL) 40 mg tablet Take 1 Tablet (40 mg) by mouth once daily. 90 tablet 3 02/19/2022 Active azelastine (ASTELIN) 137 mcg/spray (0.1 %) nasal spray Administer 2 sprays into each nostril 2 (two) times a day. Use in each nostril as directed 30 mL 12 03/20/2022 Active azithromycin (ZITHROMAX) 250 mg tablet Take 500 mg today (day 1), then 250 mg for 4 days (days 2-5) 08/14/2022 Active lisinopriL (PRINIVIL,ZESTRIL) 40 mg tablet Take 40 mg by mouth. 07/09/2022 Active letrozole (FEMARA) 2.5 mg tablet 02/25/2023 Active albuterol 90 mcg/actuation inhaler Use 2 puffs prior to exercise and also as needed for shortness of breath, wheeze 54 g 3 02/28/2023 Active montelukast (SINGULAIR) 10 mg tablet Take 1 tablet (10 mg total) by mouth daily. 90 tablet 3 02/28/2023 Active predniSONE (DELTASONE) 10 mg tabletIndications:A sthma Intrinsic (HCC) Take 2 tabs a day for 5 days, then 1 tab a day for 5 days. Please have on file, will request when needed. 15 tablet 1 02/28/2023 Active fluticasone propion-salmeteroL (Advair Diskus) 100-50 mcg/actuation diskus inhaler 1 puff twice daily 180 each 1 10/17/2023 Active Active Problems Problem Noted Date Diagnosed Date Malignant Neoplasm Of Breast Upper Outer Quadrant Female Left 08/20/2022 Cancer Staging:Pathologic stage from 07/26/2022:Stage IA(pT1c, pN0(sn), cM0, G1, ER+, AL+, HER2-, Oncotype DX score: 5) - Unsigned Obesity Body Mass Index 30-39.9 Adult 09/28/2019 Bundle Branch Block Left 09/28/2019 Rhinitis Allergic 09/12/2012 Asthma Intrinsic 12/21/2009 Overview: Asthma, Instrinsic, unspecified Hypertension Essential Primary 12/21/2009 Overview: Hypertension Essential, Benign Hyperlipidemia 06/10/2003 Hypothyroidism Primary 06/10/2003 Resolved Problems Problem Noted Date Diagnosed Date Resolved Date 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 Immunizations Name Administration Dates Next Due DTaP (Infanrix, Tripedia) 07/25/2007 H1N1 All Forms 09/22/2009 HZV (ZOSTAVAX) 07/26/2009 HepA Adult 02/12/2019,03/19/2011 HepB Adult 02/12/2019 HepB, Unspecified 05/23/2011, 1,03/19/2011,2010 IPV 03/19/2011 Influenza Split 07/07/2014, 2,08/23/2010,1995 Influenza, Injectable, Quadrivalent 07/17/2016,1 Influenza, Quadrivalent, Adj uvanted, Preservative Free 06/29/2020 Influenza, Seasonal, Injectable 07/19/20 11,09/12/2004,09/12/2004,2000,10/21/2000,08/28/1996 Influenza, Unspecified 08/03/2015,2013,07/21/2012,2010 MMR 03/19/2011 PCV13 06/10/2015 PPSV23 09/15/2008 RZV (SHINGRIX) 08/05/2020,04/26/2020 Td Preservative Free (TENIVA C, DECAVAC) 02/12/2019 Td, (Adult) Unspecified 12/31/1997 Tdap 07/25/2007,07/25/2007 influenza high dose (65 year s or older) (PF) 07/21/2019,07/28/2018,07/12/2017 influenza vaccine quad (FLUZONE/FLUARIX) (6 months and older)(PF) 07/01/2014 Family History Medical History Relation Name Comments Asthma Brother Hypertension Brother Lung cancer Brother Asthma Father Hypertension Father Lung cancer Father Colon cancer Maternal Grandfather Heart attack Mother Relation Name Status Comments Brother Father Maternal Grandfather Mother Social History Tobacco Use Types Packs/Day Years Used Date Smoking Tobacco: Never Smokeless Tobacco: Never Tobacco Cessation:Counseling Given: Not Answered Alcohol Use Standard Drinks/Week Comments Yes 1 (1 standard drink = 0.6 oz pur e alcohol) very rarely Humiliation, Afraid, Rape, and Kick questionnair e Answer Date Recorded Within the last year, have y ou been afraid of your partner or ex-partner? No 03/16/2022 Within the last year, have y ou been humiliated or emotionally abused in other ways by your partner or ex-partner? No Within the last year, have y ou been kicked, hit, slapped, or otherwise physically hurt by your partner or ex-partner? No 03/16/2022 Within the last year, have y ou been raped or forced to have any kind of sexual activity by your partner or ex-partner? No 03/16/2022 Social Connection and Isolat ion Panel [NHANES] Answer Date Recorded In a typical week, how many times do you talk on the phone with family, friends, or neighbors? More than three times a week 03/16/2022 How often do you get togethe r with friends or relatives? Once a week 03/16/2022 How often do you attend chur ch or judaism services? More than 4 times per year 03/16/2022 Do you belong to any clubs o r organizations such as gnosticism groups, unions, fraternal or athletic groups, or school groups? Yes 03/16/2022 How often do you attend meet ings of the clubs or organizations you belong to? More than 4 times per year 03/16/2022 Are you , , di vorced, , never , or living with a partner? 03/16/2022 AUDIT-C Answer Date Recorded Q1: How often do you have a drink containing alcohol? Monthly or less 03/16/2022 Q2: How many drinks containi ng alcohol do you have on a typical day when you are drinking? Patient does not drink Q3: How often do you have si x or more drinks on one occasion? Never 03/16/2022 Overall Financial Resource Strain (CARDIA) Answe r Date Recorded How hard is it for you to pa y for the very basics like food, housing, medical care, and heating? Not hard at all 03/16/2022 PHQ-2 Answer Date Recorded PHQ-2 Score 0 02/15/2021 [facility] Occupational Stress Questionnaire Answer Date Recorded Do you feel stress - tense, restless, nervous, or anxious, or unable to sleep at night because your mind is troubled all the time - these days? Only a little 03/16/2022 Exercise Vital Sign Answer Date Recorde d On average, how many days pe r week do you engage in moderate to strenuous exercise (like a brisk walk)? 5 days 03/16/2022 On average, how many minutes do you engage in exercise at this level? 30 min 03/16/2022 Hunger Vital Sign Answer Date Recorded Within the past 12 months, y ou worried that your food would run out before you got the money to buy more. Never true 03/16/20 22 Within the past 12 months, t he food you bought just didn't last and you didn't have money to get more. Never true 03/16/2022 PRAPARE - Transportation Answer Date Re corded In the past 12 months, has l ack of transportation kept you from medical appointments or from getting medications? No 03/07 In the past 12 months, has l ack of transportation kept you from meetings, work, or from getting things needed for daily living? No 03/16/2022 Housing Stability Vital Sign Answer Chris e Recorded In the last 12 months, was t here a time when you were not able to pay the mortgage or rent on time? No 03/16/2022 In the last 12 months, how many places have you lived? 2 03/16/2022 In the last 12 months, was t here a time when you did not have a steady place to sleep or slept in a nursing home (including now)? No 03/16/2022 Nutrition Answer Date Recorded Nutrition: EVOO Fat Source Yes 03/16 On average, how many serving s of fruits and vegetables do you eat per day (serving size is equal to 1 cup or approximately the size of a tennis ball)? 2-3 03/16/2022 Dental Answer Date Recorded Dental: Regular Dentist Yes 03/16/20 Employment Answer Date Recorded Employment status Retired 03/16/2022 Education Answer Date Recorded What is the highest level of school you have completed or the highest degree you have received? Master's degree (e.g., MA, MS, Roland, MEd, EDITORIAL INTERN, MARIE) 02/15/2021 Sex and Gender Information Value Date Recorded Sex Assigned at Female 06/26/2021 8:35 AM CDT Gender Identity Female 02/05/2018 8:11 AM CDT Sexual Orientation Straight 02/05/2018 8: 11 AM CDT Last Filed Vital Signs Vital Sign Reading Time Taken Comments Blood Pressure 157/64 08/24/2022 7:58 AM VIDEO NEWS EDITOR Pulse 80 08/24/2022 7:58 AM VIDEO NEWS EDITOR Temperature 36.1 ??C (97 ??F) 02/28/2023 10:20 AM CDT Respiratory Rate 12 02/15/2021 9:32 AM CDT Oxygen Saturation 97% 09/28/2019 10:15 AM VIDEO NEWS EDITOR Inhaled Oxygen Concentration - - Weight 98.9 kg (218 lb 2.3 oz) 02/28/2023 10:20 AM CDT Height 159.5 cm (5' 2.8) 02/28/2023 10:20 AM CD T Body Mass Index 38.9 02/28/2023 10:20 AM CDT Plan of Treatment Upcoming Encounters Date Type Department Care Team (Latest Contact Info) Description 04/24/2024 11:00 AM CDT Clinical Communication Virtual Review in [place], [place] [address] [place] [phone] 04/28/2024 3:00 PM CDT Clinical Support Division of Allergic Diseases in [place], [place] [address] [place] [phone] Valdemar Ma M.D. [address] [place] [phone] 04/28/2024 4:00 PM CDT Office Visit Division of Allergic Diseases in [place], [place] [address] [place] [phone] Valdemar Ma M.D. [address] [place] [phone] Health Maintenance Due Date Last Done Comments Office Visit for Blood Pressure Check / Re-check 1942 Creatinine Level (Kidney Function Test) 02/15/2022 02/15/2021, 02/18/2020, 04/30/2019, Additional history exists Potassium Level 02/15/2022 02/15/2021, 02/04, 04/30/2019, Additional history exists Sodium Level 02/15/2022 02/15/2021, 02/04, 04/30/2019, Additional history exists Thyroid Stimulating Hormone (TSH) test for thyroid function 02/15/2022 02/15/2021, 02/18/2020, 02/09/2019, Additional history exists COVID-19 Vaccine ( season) 2023 08/12/2023, 03/30/2023, 08/27/2022, Additional history exists Depression Screening (Annual PHQ-2) 10/07/2023 Fall Risk Screen (Annual) 10/07/2023 DTaP,Tdap,and Td Vaccines (6 - Td or Tdap) 02/12/2029 02/12/2019, 10/04/2017, 07/25/2007, Additional history exists Colonoscopy Discontinued 08/18/2009 Pneumococcal vaccine (65+ years) Completed 06/10/2015, 09/15/2008 Hepatitis A Vaccines Completed 02/12/2019, 03/19/20 Hepatitis B Vaccines Completed 02/12/2019, 05/23/2011, 05/23/2011, Additional history exists Zoster Vaccines Completed 08/05/2020, 04/07, 07/26/2009 Cologuard Discontinued 02/27/2021 Colorectal Cancer Surveillance Discontinued Influenza Vaccine Completed 07/09/2023, , 07/06/2021, Additional history exists CT Colonography Discontinued HPV Vaccines Aged Out No longer eligi ble based on patient's age to complete this topic Medical Devices Implanted Type Area Solar Energy Advisor Device Identifier Shelf Expiration Date Model / Serial / Lot Knee Implant Knee Implant Right: Knee Knee Implant Knee Implant Left: Knee Procedures Procedure Name Priority Date/Time Associated Diagnosis Comments COLOGUARD Routine 02/27/2021 9:55 PM CDT Screening Cancer Colon THYROID-STIMULATING HORMONE-SENSITIVE (S-TSH) Routine 02/15/2021 8:46 AM CDT Hypertension Essential Primary Hypothyroidism Primary Hyperlipidemia Encounter For Screening For Cardiovascular Disorders COMPREHENSIVE METABOLIC PANEL, S/P Routine 02/15/2021 8:46 AM CDT Hypertension Essential Primary Hypothyroidism Primary Hyperlipidemia Encounter For Screening For Cardiovascular Disorders from Last 3 Months or Most Recently Relevant to Health Maintenance Results * Cologuard-Sent Out Lab (02/27/2021 9:55 PM CDT) Result Negative Not Applicable 03/03/2021 5:13 PM CDT [facility] Comment: A negative result indicates a low likelihood that a colorectal cancer (CRC) or an advanced adenoma (adenomatous polyps with more advanced pre-malignant features) is present. The chance that a person with a negative Cologuard test has a colorectal cancer is less than 1 in 1500 (negative predictive value >99.9%) or has an advanced adenoma is less than 5.3% (negative predictive value 94.7%). These data are based on a prospective cross-sectional screening study of 10,000 individuals at average risk for colorectal cancer who were screened with both Cologuard and colonoscopy. (Justin Shearer al, N Engl J Med 2014;370(14):3907-3577) The normal value (reference range) for this assay is negative. COLOGUARD RE-SCREENING RECOMMENDATION: Periodic routine colorectal cancer screening is an important part of preventive healthcare for asymptomatic persons at average risk for colorectal cancer. Following a negative Cologuard result, the [place] [employer] Society and U.S. Multi-Society Task Force screening guidelines recommend a Cologuard re-screening interval of 3 years. References: [place] [employer] Society (ACS). Colorectal cancer prevention and early detection. [place], [place]: [place] [employer]; [updated 2015Jan 28]. https://www.cancer.org/cancer/ijruz-vctszv-feaauc/detection- diagnosis-staging/acs-recommendations.html. Accessed June 06, 2018; Yung LAMBERT, Med PECK, Ernesto MATTHEWS, Colorectal Cancer Screening: Recommendations for Physicians and Patients from the U.S. Multi-Society Task Force on Colorectal Cancer Screening, Am J Gastroenterology 2017; 112:7556-0986. TEST TYPE: Composite algorithmic analysis of stool DNA-biomarkers with hemoglobin immunoassay. ??Quantitative values of individual biomarkers are not reportable and are not associated with individual biomarker result reference ranges. PRECAUTIONS AND LIMITATIONS: Cologuard is intended for colorectal cancer screening of adults of either sex, 45 years or older, who are at average-risk for colorectal cancer (CRC). Cologuard has been approved for use by the U.S. FDA. Cologuard may produce a false negative or false positive result. A negative Cologuard test result does not guarantee the absence of CRC or advanced adenoma (pre-cancer). Patients with a negative Cologuard test result should be advised to continue participating in a colorectal cancer screening program. The screening interval for Cologuard is currently recommended at an interval of every 3 years by the [place] [employer] Society and U.S. Multi-Society Task Force. A false positive result occurs when Cologuard produces a positive result, even though a colonoscopy may not find colorectal cancer or precancerous polyps. The performance of Cologuard has been established in a cross sectional study (i.e., single point in time) of average-risk adults aged 50-84. Cologuard performance in patients ages 45 to 49 years was estimated by sub-group analysis of near-age groups. Cologuard performance data in a 10,000 patient pivotal study using colonoscopy as the reference method can be accessed at the following location: www.[employer]/results. Additional description of the Cologuard test process, warnings and precautions can be found at www.cologuardtest.com. Rx only. Stool (Stool) 02/27/2021 9:5 5 PM CDT 03/01/2021 3:38 PM CDT Igor Horn P.A.-C., P.A. LAB BODY FLUIDS AND STOOLS ORDERABLES Performing Organization Address City/[facility]/ZIP Co de Phone Number [facility] [address] [place] [phone] EXLI [employer] [address] [place] [address], [address] [place] [address] * S-TSH (Thyroid-Stimulating Hormone - Sensitive) (02/15/2021 8:46 AM CDT) TSH, Sensitive 2.8 0.3 - 4.2 mIU/L 02/15/2021 11:24 AM CDT OWAT Blood (Blood, Venous) 02/15/2021 8:46 AM CDT 02/15/2021 10:39 AM CDT Igor Horn P.A.-C., P.A. LAB BLOO D ADD-ON [facility] [address] [place] [address], [facility] OWAT [facility] [place] [address] [place] [address] * Comprehensive Metabolic Panel (02/15/2021 8:46 AM CDT) Potassium, P 4.1 3.6 - 5.2 mmol/L 02/15/2021 11:23 AM CDT OWAT Sodium, P 139 135 - 145 mmol/L 02/15/2021 11:23 AM CDT OWAT Chloride, P 100 98 - 107 mmol/L 02/15/2021 11:23 AM CDT OWAT Bicarbonate, P 29 22 - 29 mmol/L 02/15/2021 11:23 AM CDT OW[facility] Anion Gap, P 10 7 - 15 02/15/2021 11:23 AM CDT [facility] BUN (Blood Urea Nitrogen), P 12 6 - 21 mg/dL 02/15/2021 11:23 AM CDT OWAT Creatinine 0.79 0.59 - 1.04 mg/dL 02/15/2021 11:23 AM CDT OWAT eGFR-Black/ 83 >=60 mL/min/BS A 02/15/2021 11:23 AM CDT OWAT Comment: ----ADDITIONAL INFORMATION---- Estimated GFR calculated using the 2009 CKD_EPI creatinine equation. eGFR Non-Black/ 72 >=60 mL/min/BS A 02/15/2021 11:23 AM CDT OWAT Comment: ----ADDITIONAL INFORMATION---- Estimated GFR calculated using the 2009 CKD_EPI creatinine equation. Calcium, Total, P 9.6 8.8 - 10.2 mg/dL 02/15/2021 11:23 AM CDT OWAT Glucose, P 129 70 - 140 mg/dL 02/15/2021 11:23 AM CDT OWAT Protein, Total, P 7.2 6.3 - 7.9 g/dL 02/15/2021 11:23 AM CDT OWAT Albumin, P 4.3 3.5 - 5.0 g/dL 02/15/2021 11:23 AM CDT OWAT Aspartate Aminotransferase (AST), P 24 8 - 43 U/L 02/15/2021 11:23 AM CDT OWAT Alkaline Phosphatase, P 82 35 - 104 U/L 02/15/2021 11:23 AM CDT OWAT Alanine Aminotransferase (ALT), P 19 7 - 45 U/L 02/15/2021 11:23 AM CDT OWAT Bilirubin, Total, P 0.5 <=1.2 mg/dL 02/15/2021 11:23 AM CDT OWAT Blood (Blood, Venous) 02/15/2021 8:46 AM CDT 02/15/2021 10:39 AM CDT Igor Horn P.A.-C., PAntwanAAntwna LAB BLOO D ADD-ON [facility] [address] [place] [address], [place] OW[facility] [place] [address] [place] [address] from Last 3 Months or Most Recently Relevant to Health Maintenance Care Teams Business Specialist Relationship Specialty Start Date End Date Elsewhere, Pcp PCP - General Internal Medicine 03/16/22
--- OUTSIDE RECORDS SUMMARY | 2024-03-12 09:17 | XMS_ITS ---
Author Organization [facility] Address [address] [place] [address] Care Team Providers Care Mobility Architect Name Role Phone Unavailable Unavailable Unavailable Surgery Details Not on file Complications Check Surgery Details section. Procedure Estimated Blood Loss Check Surgery Details section. Procedure Findings Check Surgery Details section. Procedure Specimens Taken Check Surgery Details section.
--- OUTSIDE RECORDS SUMMARY | 2024-03-12 09:17 | XMS_ITS | Referral Summary ---
Author Organization [facility] Address [address] [place] [address] Care Team Providers Care Statistical Programmer Analyst Name Role Phone Elsewhere, Pcp Primary Care Provider Unavailabl e Source Comments Patient records contain information from all sites at [facility]. For routine questions regarding patient records, call [phone] during business hours, M-F 8:00 AM - 5:00 PM Central Time. Record requests for emergency care only can be directed to [phone] at any time.[facility] Allergies Active Allergy Reactions Criticality Noted Date [...] quad (FLUZONE/FLUARIX) (6 months and older)(PF) 07/01/2014 Social History Tobacco Use Types Packs/Day Years [...] week 03/16/2022 How often do you attend [facility] or buddhist services? More than 4 times per year 03/16/2022 Do you belong to any clubs o r organizations such as confucianism groups, unions, fraternal [...] Answer Date Recorded PHQ-2 Score 0 02/15/2021 [facility] - Occupational Stress Questionnaire Answer Date Recorded [...] or slept in a prison (including now)? No 03/16/2022 Nutrition Answer Date [...] Master's degree (e.g., MA, MS, Roland, MEd, STRATEGIC PLANNING CONSULTANT, MARIE) 02/15/2021 Sex and Gender Information Value Date Recorded Sex Assigned at Female 06/26/2021 8:35 AM CDT Gender Identity Female 02/05/2018 8:11 AM CDT Sexual Orientation Straight 02/05/2018 8: 11 AM CDT Last Filed Vital Signs Vital Sign Reading Time Taken Comments Blood Pressure 157/64 08/24/2022 7:58 AM TOP COATER Pulse 80 08/24/2022 7:58 AM TOP COATER Temperature 36.1 ??C (97 ??F) 02/28/2023 10:20 AM CDT Respiratory Rate 12 02/15/2021 9:32 AM CDT Oxygen Saturation 97% 09/28/2019 10:15 AM TOP COATER Inhaled Oxygen Concentration - - Weight 98.9 kg (218 lb 2.3 oz) 02/28/2023 10:20 AM CDT Height 159.5 cm (5' 2.8) 02/28/2023 10:20 AM CD T Body Mass Index 38.9 02/28/2023 10:20 AM CDT Plan of Treatment Upcoming Encounters Date Type Department Care Team (Latest Contact Info) Description 04/24/2024 11:00 AM CDT Clinical Communication Virtual Review in [place], [place] [address] [place] [phone] 04/28/2024 3:00 PM CDT Clinical Support Division of Allergic Diseases in [place], [place] [address] [place] [address] Valdemar Ma M.D. [address] [place] [address] 04/28/2024 4:00 PM CDT Office Visit Division of Allergic Diseases in [place], [place] [address] [place] [address] Valdemar Ma M.D. [address] [place] [address] Medical Devices Implanted Type Area Tube Trailer Filler Device Identifier Shelf Expiration Date Model / [...] (Justin Shearer al, N Engl J Med 2014;370(14):3767-4282) The normal value (reference range) for this assay is negative. COLOGUARD RE-SCREENING RECOMMENDATION: Periodic routine colorectal cancer screening is an important part of preventive healthcare for asymptomatic persons at average risk for colorectal cancer. Following a negative Cologuard result, the [place] Cancer Society and U.S. Multi-Society Task Force screening guidelines recommend a Cologuard re-screening interval of 3 years. References: [place] Cancer Society (ACS). Colorectal cancer prevention and early detection. [place], [place]: [place] [employer] Society; [updated 2015Jan 28]. https://www.cancer.org/cancer/pgzts-snwdws-ctyjnd/detection- diagnosis-staging/acs-recommendations.html. Accessed June 06, 2018; Yung DK, Med PECK, Ernetso DurantK, Colorectal Cancer Screening: Recommendations for Physicians and Patients from the U.S. Multi-Society Task Force on Colorectal Cancer Screening, Am J Gastroenterology 2017; 112:2111-4196. TEST TYPE: Composite algorithmic analysis of stool [...] interval of every 3 years by the [place] Cancer Society and U.S. Multi-Society Task Force. [...] can be accessed at the following location: www.Ship It Bag Check.Folkstr/results. Additional description of the Cologuard test process, warnings and precautions can be found at www.cologuardtest.com. Rx only. Stool (Stool) 02/27/2021 9:5 5 PM CDT 03/01/2021 3:38 PM CDT Igor Horn P.A.-C., P.A. LAB BODY FLUIDS AND STOOLS ORDERABLES Performing Organization Address City/[facility]/ZIP Co de Phone Number [facility] [address] [place] [id number] [facility] [address] [place] [address], [address] [place] [address] * S-TSH (Thyroid-Stimulating Hormone - Sensitive) (02/15/2021 8:46 AM CDT) TSH, Sensitive 2.8 0.3 - 4.2 mIU/L 02/15/2021 11:24 AM CDT [facility] Blood (Blood, Venous) 02/15/2021 8:46 AM CDT 02/15/2021 10:39 AM CDT Igor Horn P.A.-C., P.A. LAB BLOO D ADD-ON [facility] [address] [place] [address], [facility] in [place] [address] [place] [address] * Comprehensive Metabolic Panel (02/15/2021 8:46 AM [...] 02/15/2021 10:39 AM CDT Igor Horn P.A.-C., PNeda LAB BLOO D ADD-ON [facility] [address] [place] [address], [place] [facility] in [place] [address] [place] [address] from Last 3 Months or Most Recently Relevant to Health Maintenance Care Teams Statistical Programmer Analyst Relationship Specialty Start Date End Date Elsewhere, Pcp PCP - General Internal Medicine 03/16/22
== END 2024-03-12 09:11 | disposition home or self-care (01) ==
PROVIDERS: PCP Nurse Practitioner Family; Visit Provider Nurse Practitioner Family
DX: E11.9 Type 2 diabetes mellitus without complications (principal); E03.9 Hypothyroidism, unspecified; E78.2 Mixed hyperlipidemia
CPT/HCPCS: 80053; 80061; 82043; 82570; 82607; 84443; 85025

== ENCOUNTER 2024-06-05 10:08 | Outpatient (CLI) | payer MEDICARE, BC, SELFPAY ==
--- OUTSIDE RECORDS SUMMARY | 2024-06-05 10:11 | XMS_ITS | Clinical Summary ---
Author Organization [facility] Address [address] [place] [address] Care Team Providers Care Hr Payroll Coordinator Name Role Phone Elsewhere, Pcp Primary Care Provider Unavailabl e Source Comments Patient records contain information from all sites at [facility]. For routine questions regarding patient records, call [phone] during business hours, M-F 8:00 AM - 5:00 PM Central Time. Record requests for emergency care only can be directed to [phone] at any time.[facility] Allergies Active Allergy Reactions Criticality Noted Date Comments Animal Dander Shortness of breath (Reselect Reaction) 04/05/2016 Cat Dander Other (see comments) High 12/21/2009 No reaction noted in [facility] Cat Hair Standardized Allergenic Extract Other (see comments) 07/09/2022 Codeine Other (see comments),GI intolerance High 11/18/2014 No reaction noted in [facility] House Dust Mite Other (see comments) 08/23/2010 No reaction noted in [facility] Hydrocodone GI intolerance 02/06/2018 Prochlorperazine Other (see comments) High 0 No reaction noted in [facility] (From Compazine) Medications Medication Sig Dispensed Refills Start Date [...] letrozole (FEMARA) 2.5 mg tablet 02/25/2023 Active fluticasone propion-salmeteroL (Advair Diskus) 100-50 mcg/actuation diskus inhaler Inhale 1 Puff by mouth two times daily. 180 each 3 04/28/2024 Active montelukast (Singulair) 10 mg tablet Take 1 tablet (10 mg total) by mouth daily. 90 tablet 3 04/28/2024 Active predniSONE (Deltasone) 10 mg tabletIndications:A sthma Intrinsic (HCC) Take 2 tabs a day for 5 days, then 1 tab a day for 5 days. Please have on file, will request when needed. 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 Overview (02/26/2017): Asthma, Instrinsic, unspecified Hypertension Essential Primary 12/21/2009 Overview (08/25/2018): Hypertension Essential, Benign Hyperlipidemia 06/10/2003 Hypothyroidism Primary 06/10/2003 Resolved Problems Problem Noted Date Diagnosed Date Resolved Date 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 Encounters Date Type Department Care Team Description 04/28/2024 4:00 PM CDT Office Visit Division of Allergic Diseases in [address] [address] Valdemar Ma M.D. Asthma Intrinsic (HCC) 04/28/2024 3:00 PM CDT Clinical Support Division of Allergic Diseases in [address] [address] Valdemar Ma M.D. Sherley Gonsalez D.N.P., R.N. Asthma Intrinsic (HCC) 04/24/2024 11:00 AM CDT Clinical Communication Virtual Review in [address] [phone] Previsit Preparation 03/24/2024 Refill Division of Allergic Diseases in [place], [place] [address] [place] [address] Valdemar Ma M.D. Med Refill 03/13/2024 Refill Division of Allergic Diseases in [place], [place] [address] [place] [address] Valdemar Ma M.D. Med Refill from Last 3 Months Immunizations Name Administration [...] 0.6 oz pur e alcohol) very rarely [facility] Utilities Answer Date Recorded In the past 12 months has e [employer], oil, or water [employer] threatened to shut off services in your home? No 04/28/2024 Humiliation, Afraid, Rape, and Kick questionnair e [...] How often do you attend [facility] or sabianist services? More than 4 times per year 03/16/2022 Do you belong to any clubs o r organizations such as nondenominational groups, unions, fraternal [...] Answer Date Recorded PHQ-2 Score 0 02/15/2021 [facility] - Occupational Stress Questionnaire Answer Date Recorded [...] exercise (like a brisk walk)? 5 days 04/28/2024 On average, how many minutes do you engage in exercise at this level? 40 min 04/28/2024 Hunger Vital Sign Answer Date Recorded Within the past 12 months, y ou worried that your food would run out before you got the money to buy more. Never true 04/28/20 Within the past 12 months, t he food you bought just didn't last and you didn't have money to get more. Never true 04/28/2024 PRAPARE - Transportation Answer Date Re corded In the past 12 months, has l ack of transportation kept you from medical appointments or from getting medications? No 04/07 In the past 12 months, has l ack of transportation kept you from meetings, work, or from getting things needed for daily living? No 04/28/2024 Nutrition Answer Date Recorded On average, how many serving s of fruits and vegetables do you eat per day (serving size is equal to 1 cup or approximately the size of a tennis ball)? 3-5 04/28/2024 Dental Answer Date Recorded Dental: Regular Dentist Yes 03/16/20 Employment Answer Date Recorded Employment status Retired 04/28/2024 Housing Stability Answer Date Recorded What is your living situation today? I have a [facility] place to live 04/28/2024 Education Answer Date Recorded What is the highest level of school you have completed or the highest degree you have received? Master's degree (e.g., MA, MS, Roland, MEd, PROCESS PUMPER, MARIE) 02/15/2021 Sex and Gender Information Value Date Recorded Sex Assigned at Female 06/26/2021 8:35 AM CDT Gender Identity Female 02/05/2018 8:11 AM CDT Sexual Orientation Straight 02/05/2018 8: 11 AM CDT Last Filed Vital Signs Vital Sign Reading Time Taken Comments Blood Pressure 157/64 08/24/2022 7:58 AM WATERSHED TENDER Pulse 80 08/24/2022 7:58 AM WATERSHED TENDER Temperature 36.1 ??C (97 ??F) 02/28/2023 10: 20 AM CDT Respiratory Rate 12 02/15/2021 9:32 AM CDT Oxygen Saturation 97% 09/28/2019 10: 15 AM WATERSHED TENDER Inhaled Oxygen Concentration - - Weight 97.4 kg (214 lb 11.7 oz) 04/28/2024 2:33 PM CDT Height 161.6 cm (5' 3.62) 04/28/2024 2:33 PM CD T Body Mass Index 37.3 04/28/2024 2:33 PM CDT Plan of Treatment Health Maintenance Due [...] 02/15/2022 02/15/2021, 02/18/2020, 02/09/2019, Additional history exists Depression Screening (Annual PHQ-2) 10/07/2023 Fall Risk Screen (Annual) 10/07/2023 Influenza Vaccine (#1) 2024 , 08/21/2022, 07/06/2021, Additional history exists DTaP,Tdap,and Td Vaccines (6 - Td or Tdap) 02/12/2029 02/12/2019, 10/04/2017, 07/25/2007, Additional history exists Colonoscopy Discontinued 08/18/2009 Pneumococcal vaccine (65+ years) Completed 06/10/2015, 09/15/2008 Hepatitis A Vaccines Completed 02/12/2019, 03/19/20 Hepatitis B Vaccines Completed 02/12/2019, 05/23/2011, 05/23/2011, Additional history exists Zoster Vaccines Completed 08/05/2020, 04/07, 07/26/2009 Cologuard Discontinued 03/03/2021, 02/27/2021 Colorectal Cancer Surveillance Discontinued COVID-19 Vaccine Completed 02/17/2024, 03/2023, 03/30/2023, Additional history exists CT Colonography Discontinued HPV Vaccines Aged Out No longer eligi ble based on patient's age to complete this topic Medical Devices Implanted Type Area Tobacco Prevention Health Educator Device Identifier Shelf Expiration Date Model / Serial / Lot Knee Implant Knee Implant Right: Knee Knee Implant Knee Implant Left: Knee Procedures Procedure Name Priority Date/Time Associated Diagnosis Comments [place] BRONCHODILATION RESPONSIVENESS Routine 04/28/2024 2:35 PM CDT Asthma Intrinsic (HCC) COLOGUARD Routine 02/27/2021 9:55 PM CDT Screening Cancer Colon THYROID-STIMULATING HORMONE-SENSITIVE (S-TSH) Routine 02/15/2021 8:46 AM CDT Hypertension Essential Primary Hypothyroidism Primary Hyperlipidemia Encounter For Screening For Cardiovascular Disorders COMPREHENSIVE METABOLIC PANEL, S/P Routine 02/15/2021 8:46 AM CDT Hypertension Essential Primary Hypothyroidism Primary Hyperlipidemia Encounter For Screening For Cardiovascular Disorders from Last 3 Months or Most Recently Relevant to Health Maintenance Results * Spirometry (04/28/2024 2:35 PM CDT) PostFVC 2.07 L 04/29/2024 5:47 PM CDT [facility] PostFEV1 1.38 L 04/29/2024 5:47 PM CDT [facility] SUITE FEV1/FVC POST 66.58 % 04/29/2024 5:47 PM CDT [facility] SU[facility] FEF 25-75 % POST 0.79 L/s 04/29/2024 5:47 PM CDT [facility] SUITE PEF POST 4.64 L/s 04/29/2024 5:47 PM CDT [facility] SUITE PIF POST 4.20 L/s 04/29/2024 5:47 PM CDT [facility] SUITE FEF 50 % FIF 50 POST 19.98 % 04/29/2024 5:47 PM CDT [facility] SUITE FET POST 12.91 sec 04/29/2024 5:47 PM CDT [facility] SUITE FVC 1.92 L 04/29/2024 5:47 PM CDT [facility] SUITE FEV1 1.21 L 04/29/2024 5:47 PM CDT [facility] FEV1/FVC 63.19 % 04/29/2024 5:47 PM CDT [facility] AQK44-08% 0.68 L/s 04/29/2024 5:47 PM CDT [facility] PEF PRE 4.10 L/s 04/29/2024 5:47 PM CDT [facility] SUITE PIF PRE 3.72 L/s 04/29/2024 5:47 PM CDT [facility] SUITE FEF 50 % FIF 50 PRE 16.74 % 04/29/2024 5:47 PM CDT [facility] SUITE FET PRE 8.38 sec 04/29/2024 5:47 PM CDT [facility] SUITE SUBSTANCE POST Albuterol 04/29/2024 5:47 PM CDT [facility] 04/28/2024 2:35 PM CDT Impressions [facility] - 04/29/2024 5:47 PM CDT Abnormal. Obstructive pattern, mild. No significant improvement after bronchodilator. Clinical correlation recommended. Narrative Procedure Note Haile Newell M.D. - 04/29/2024 IMPRESSION: Abnormal. Obstructive pattern, mild. No significant improvement afterbronchodilator. Clinical correlation recommended. Valdemar Ma M.D. PFT ORDERABLES [facility] SU[address] NA * Cologuard-Sent Out Lab (02/27/2021 9:55 PM [...] (Justin Shearer al, N Engl J Med 2014;370(14):3663-8358) The normal value (reference range) for this assay is negative. COLOGUARD RE-SCREENING RECOMMENDATION: Periodic routine colorectal cancer screening is an important part of preventive healthcare for asymptomatic persons at average risk for colorectal cancer. Following a negative Cologuard result, the [place] Cancer Society and U.S. Multi-Society Task Force screening guidelines recommend a Cologuard re-screening interval of 3 years. References: [place] Cancer Society (ACS). Colorectal cancer prevention and early detection. [place], [place]: [place] Cancer Society; [updated 2015Jan 28]. https://www.cancer.org/cancer/eyoge-qadltm-xoghcx/detection- diagnosis-staging/acs-recommendations.html. Accessed June 06, 2018; Yung LAMBERT, Med PECK, Ernesto MATTHEWS, Colorectal Cancer Screening: Recommendations for Physicians and Patients from the U.S. Multi-Society Task Force on Colorectal Cancer Screening, Am J Gastroenterology 2017; 112:0882-5604. TEST TYPE: Composite algorithmic analysis of stool [...] interval of every 3 years by the [place] Cancer Society and U.S. Multi-Society Task Force. [...] can be accessed at the following location: www.Clean Mobile/results. Additional description of the Cologuard test process, warnings and precautions can be found at www.cologuardtest.com. Rx only. Stool (Stool) 02/27/2021 9:5 5 PM CDT 03/01/2021 3:38 PM CDT Igor Horn P.A.-C. LAB BODY FLUID S AND STOOLS ORDERABLES [email or web address] [address] [place] [address] [facility] [address] [facility], [address] [place] [address] * S-TSH (Thyroid-Stimulating Hormone - Sensitive) (02/15/2021 8:46 AM CDT) TSH, Sensitive 2.8 0.3 - 4.2 mIU/L 02/15/2021 11:24 AM CDT [facility] Blood (Blood, Venous) 02/15/2021 8:46 AM CDT 02/15/2021 10:39 AM CDT Igor Horn P.A.-C. LAB BLOOD ADD- ON [facility] [address] [place] [address], [place] [facility] [place] [address] [place] [address] * Comprehensive Metabolic Panel (02/15/2021 8:46 AM [...] CDT 02/15/2021 10:39 AM CDT Igor Horn P.A.-C. LAB BLOOD ADD- ON [facility] [address] [place] [address], [place] OW[place] [facility] [place] [address] [place] [address] from Last 3 Months or Most Recently Relevant to Health Maintenance Care Teams Hr Payroll Coordinator Relationship Specialty Start Date End Date Elsewhere, Pcp PCP - General Internal Medicine 03/16/22
--- OUTSIDE RECORDS SUMMARY | 2024-06-05 10:12 | XMS_ITS ---
Author Organization [facility] Address [address] [place] [address] Care Team Providers Care Stripper Soft Plastic Name Role Phone Unavailable Unavailable Unavailable Surgery Details Not on file Complications Check Surgery Details section. Procedure Estimated Blood Loss Check Surgery Details section. Procedure Findings Check Surgery Details section. Procedure Specimens Taken Check Surgery Details section.
--- OUTSIDE RECORDS SUMMARY | 2024-06-05 10:12 | XMS_ITS | Encounter Summary ---
Author Organization [facility] Address [address] [place] [address] Care Team Providers Care Circulation Crew Leader Name Role Phone Elsewhere, Pcp Primary Care Provider Unavailabl e Reason for Visit * Reason Comments Med Refill Encounter Details Date Type Department Care Team (Late st Contact Info) Description 03/13/2024 Refill Division of Allergic Diseases in [place], [place] [address] [place] [phone] Valdemar Ma M.D. [address] [place] [phone] Med Refill Social History Tobacco Use Types Packs/Day Years [...] week 03/16/2022 How often do you attend [facility] or yazdanism services? More than 4 times per year 03/16/2022 Do you belong to any clubs o r organizations such as religious groups, unions, fraternal [...] Answer Date Recorded PHQ-2 Score 0 02/15/2021 [facility] - Occupational Stress Questionnaire Answer Date [...] money to buy more. Never true 03/16/20 Within the past 12 months, t he [...] or slept in a residential (including now)? No 03/16/2022 Nutrition Answer Date Recorded On average, how [...] Master's degree (e.g., MA, MS, Roland, MEd, INK MAKER, MARIE) 02/15/2021 Sex and Gender Information Value Date Recorded Sex Assigned at Female 06/26/2021 8:35 AM CDT Gender Identity Female 02/05/2018 8:11 AM CDT Sexual Orientation Straight 02/05/2018 8: 11 AM CDT documented as of this encounter Miscellaneous Notes * Telephone Encounter - Tanya Casas M.S.N., R.N. - 03/13/2024 3:21 PM CDT Prescription renewal request for Advair Diskus was received from [facility]. Patient last saw Dr. Volcheck in the Division of Allergic Diseases on 02/28/23. The requested medication was last prescribed by a provider in the Division of Allergic Diseases. The requested prescription matches the patient's medication profile in the electronic medical record. The requested prescription matches the plan of care in the Allergy provider's note. The following exclusion criteria were met: Not applicable. Patient has been seen within the last 15 months. Requested medication(s) has been renewed for a 3 month supply with no refills. Patient has follow up appointment scheduled on 04/28/24 where prescription can be renewed by Dr. Ma. Patient was assessed per the Division of Allergic Disease Prescription Renewal Request Protocol. documented in this encounter Plan of Treatment Not on file documented as of this encounter Visit Diagnoses Not on filedocumented in this encounter Additional Health Concerns Assessment Noted Time PHQ-9 Depression Total Score: 0 02/06/20 17 10:07 AM CDT documented as of this encounter Care Teams Circulation Crew Leader Relationship Specialty Start Date End Date Elsewhere, Pcp PCP - General Internal Medicine 03/16/22 documented as of this encounter
--- OUTSIDE RECORDS SUMMARY | 2024-06-05 10:12 | XMS_ITS | Encounter Summary ---
Author Organization [facility] Address [address] [place] [address] Care Team Providers Care Men'S Garment Fitter Name Role Phone Elsewhere, Pcp Primary Care Provider Unavailabl e Reason for Referral * Outpatient (Routine) - Authorized Specialty Diagnoses / Procedures Referred By Huma kendall Referred To Contact Diagnoses Asthma Intrinsic (HCC) Procedures Spirometry Valdemar Ma M.D. [address] [place] [phone] [facility] Referral ID Status Reason Start Date Expiration Date V isits Requested Visits Authorized [id number] Authorized 04/28/2024 04/28/2025 1 1 * Outpatient (Routine) - Authorized Specialty Diagnoses / Procedures Referred By Huma kendall Referred To Contact Allergy and Immunology Valdemar Ma M.D. [address] [place] [address] [facility] Referral ID Status Reason Start Date Expiration Date V isits Requested Visits Authorized [id number] Authorized 04/28/2024 10/28/2025 1 1 Reason for Visit * Outpatient (Routine) - Closed Specialty Diagnoses / Procedures Referred By Huma kendall Referred To Contact Allergy and Immunology Valdemar Ma M.D. [address] [place] [address] [facility] Referral ID Status Reason Start Date Expiration Date Visits Re quested Visits Authorized [id number] Closed 02/28/2023 02/27/2026 1 1 Encounter Details Date Type Department Care Team (Late st Contact Info) Description 04/28/2024 4:00 PM CDT Office Visit Division of Allergic Diseases in [place], [place] [address] [place] [address] Valdemar Ma M.D. [address] [place] [phone] Asthma Intrinsic (HCC) Social History Tobacco Use Types Packs/Day Years Used Date Smoking Tobacco: Never Smokeless Tobacco: Never Alcohol Use Standard Drinks/Week Comments Yes 1 (1 standard drink = 0.6 oz pur e alcohol) very rarely [facility] Speedshapeities Answer Date Recorded In the past 12 months has e [employer], gas, oil, or water [employer] threatened to shut off services in your [...] week 03/16/2022 How often do you attend [facility] or methodist services? More than 4 times per year 03/16/2022 Do you belong to any clubs o r organizations such as worship groups, unions, fraternal [...] Answer Date Recorded PHQ-2 Score 0 02/15/2021 [facility] of Occupat ional [facility] - Occupational Stress Questionnaire Answer Date Recorded [...] money to buy more. Never true 04/28/20 24 Within the past 12 months, t he [...] your living situation today? I have a [facility] place to live 04/28/2024 Education Answer Date Recorded What is the highest level of school you have completed or the highest degree you have received? Master's degree (e.g., JENNY, MS, Roland, MEd, ASSOCIATE ACCOUNTANT, MARIE) 02/15/2021 Sex and Gender Information Value Date Recorded Sex Assigned at Female 06/26/2021 8:35 AM CDT Gender Identity Female 02/05/2018 8:11 AM CDT Sexual Orientation Straight 02/05/2018 8: 11 AM CDT documented as of this encounter Last Filed Vital Signs Vital Sign Reading Time Taken Comments Blood Pressure - - Pulse - - Temperature - - Respiratory Rate - - Oxygen Saturation - - Inhaled Oxygen Concentration - - Weight 97.4 kg (214 lb 11.7 oz) 04/28/2024 2:33 PM CDT Height 161.6 cm (5' 3.62) 04/28/2024 2:33 PM CD T Body Mass Index 37.3 04/28/2024 2:33 PM CDT documented in this encounter Consult Notes * Valdemar Ma M.D. - 04/28/2024 4:00 PM CDT SUBJECTIVE REASON FOR CONSULT Asthma. HISTORY OF PRESENT ILLNESS Ms. Cedeño is an 83-year-old female from [place], [place]. She typically is in [place] August to January, and then in [place] from January to August. Interestingly, she will note typically with the 1st couple weeks in going to [place] she will have increase in symptoms and also when returning from [place] for a couple of weeks. Overall, she feels things have gone very well this past year. She continues on the Advair Diskus 100/50 one puff twice a day, Singulair 10 mg a day, and overall this has been working well for her. She rarely uses the albuterol outside of the couple weeks of when she arrives in [place] and then arrives in [place]. She has not had marked nasal symptoms typically. She will periodically use a nasal spray. Past medical history, medications, review of systems were reviewed. OBJECTIVE PHYSICAL EXAMINATION General: Pleasant female, in no distress. Skin: Negative. Eyes: Negative. ENT: There is cerumen in the right ear canal. The left is clear with normal tympanic membrane and light reflex. Throat is clear without evidence of thrush. Lungs: Clear to auscultation in all boyer. DIAGNOSTICS Further evaluation includes spirometry. This showed an FEV1 of 1.21 L, 65% of predicted, though with improvement to 73% of predicted with albuterol. This is in keeping where her previous studies havebeen. ASSESSMENT / PLAN #1 Asthma, stable At present, we will continue with the Advair 100/50 one puff twice a day and Singulair 10 mg a day.She will continue to have albuterol on hand for use on an as-needed basis. We are somewhat hesitant to increase the Advair in general, because of some of the difficulties it has cause for her voice. Overall though, this is currently stable. In addition, if she is having nasal symptoms, we discussed being aggressive with this. If she is continuing to do well from a symptom standpoint, she could decrease the Advair to 1 puff a day and we could monitor how she is doing with this. Valdemar Ma M.D. CT CT Job ID: [id number] documented in this encounter Plan of Treatment Scheduled Orders Name Type Priority Associated Diagnoses Orde r Schedule Spirometry PFT Routine Asthma Intrinsic (HCC) Expected: 04/28/2025 (Approximate), Expires: 07/29/2025 Scheduled Referrals Name Type Priority Associated Diagnoses Order Schedule Allergy and Immunology office visit (clinic) General Outpatient Referral Routine Expected: 04/28/2025 (Approximate), Expires: 07/29/2025 documented as of this encounter Visit Diagnoses Diagnosis Asthma Intrinsic (HCC) documented in this encounter Additional Health Concerns Assessment Noted Time PHQ-9 Depression Total Score: 0 02/06/20 17 10:07 AM CDT documented as of this encounter Care Teams Men'S Garment Fitter Relationship Specialty Start Date End Date Elsewhere, Pcp PCP - General Internal Medicine 03/16/22 documented as of this encounter
--- OUTSIDE RECORDS SUMMARY | 2024-06-05 10:12 | XMS_ITS ---
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 08/20/2022 Cancer Staging:Pathologic stage from 07/26/2022:Stage IA(pT1c, pN0(sn), cM0, G1, ER+, [place]+, HER2-, Oncotype DX score: 5) - Unsigned [...] Treated Prescribed Fraction Dose Prescribed Total Dose [id number] 09/05/2022 7 5 of 5 520 cGy 2,600 cGy Reference Point Last Treated On Elapsed Days Session Dose Total Dose [id number] 09/05/2022 7 520 cGy 2,600 cGy Resolved Problems Problem Noted Date Diagnosed Date Resolved Date 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
--- OUTSIDE RECORDS SUMMARY | 2024-06-05 10:12 | XMS_ITS | Encounter Summary ---
Author Organization [facility] Address [address] [place] [address] Care Team Providers Care Case Fitter Name Role Phone Elsewhere, Pcp Primary Care Provider Unavailabl e Reason for Visit * Reason Comments Allergy Testing Spirometry with bron chodilator * Outpatient (Routine) - Closed Specialty Diagnoses / Procedures Referred By Huma kendall Referred To Contact Diagnoses Asthma Intrinsic (HCC) Procedures Spirometry Valdemar Ma M.D. [address] [place] [phone] [facility] Referral ID Status Reason Start Date Expiration Date Visits Re quested Visits Authorized [id number] Closed 02/28/2023 02/28/2024 1 1 Encounter Details Date Type Department Care Team (Latest Contact Info) Description 04/28/2024 3:00 PM CDT Clinical Support Division of Allergic Diseases in [place], [place] [address] [place] [phone] Valdemar Ma M.D. [address] [place] [phone] Sherley Gonsalez D.N.P., R.N. [address] [place] [phone] Asthma Intrinsic (HCC) Social History Tobacco Use Types Packs/Day Years Used Date Smoking Tobacco: Never Smokeless Tobacco: Never Alcohol Use Standard Drinks/Week Comments Yes 1 (1 standard drink = 0.6 oz pur e alcohol) very rarely [facility] Utilities Answer Date Recorded In the past 12 months has e electric, gas, oil, or water company threatened to shut off services in your [...] week 03/16/2022 How often do you attend [facility] or rastafari services? More than 4 times per year 03/16/2022 Do you belong to any clubs o r organizations such as rastafari groups, unions, fraternal [...] Answer Date Recorded PHQ-2 Score 0 02/15/2021 [facility] of Occupat ional Health - Occupational Stress [...] your living situation today? I have a [facility] place to live 04/28/2024 Education Answer Date Recorded What is the highest level of school you have completed or the highest degree you have received? Master's degree (e.g., MA, MS, Roland, MEd, EYEGLASS LENS GRINDER, MARIE) 02/15/2021 Sex and Gender Information Value Date Recorded Sex Assigned at Female 06/26/2021 8:35 AM CDT Gender Identity Female 02/05/2018 8:11 AM CDT Sexual Orientation Straight 02/05/2018 8: 11 AM CDT documented as of this encounter Plan of Treatment Not on file documented as of this encounter Procedures Procedure Name Priority Date/Time Associated Diagnosis Comments SC BRONCHODILATION RESPONSIVENESS Routine 04/28/2024 2:35 PM CDT Asthma Intrinsic (HCC) documented in this encounter Results * Spirometry (04/28/2024 2:35 PM CDT) PostFVC 2.07 L 04/29/2024 5:47 PM CDT [facility] SUITE PostFEV1 1.38 L 04/29/2024 5:47 PM CDT [facility] FEV1/FVC POST 66.58 % 04/29/2024 5:47 PM CDT [facility] FEF 25-75 % POST 0.79 L/s 04/29/2024 5:47 PM CDT [facility] SUITE PEF POST 4.64 L/s 04/29/2024 5:47 PM CDT [facility] SU[facility] PIF POST 4.20 L/s 04/29/2024 5:47 PM CDT [facility] FEF 50 % FIF 50 POST 19.98 % 04/29/2024 5:47 PM CDT [facility] SUITE FET POST 12.91 sec 04/29/2024 5:47 PM CDT [facility] FVC 1.92 L 04/29/2024 5:47 PM CDT [facility] FEV1 1.21 L 04/29/2024 5:47 PM CDT [facility] FEV1/FVC 63.19 % 04/29/2024 5:47 PM CDT [facility] FTJ24-71% 0.68 L/s 04/29/2024 5:47 PM CDT [facility] SU[facility] PEF PRE 4.10 L/s 04/29/2024 5:47 PM CDT [facility] SU[facility] PIF PRE 3.72 L/s 04/29/2024 5:47 PM CDT [facility] SU[facility] FEF 50 % FIF 50 PRE 16.74 % 04/29/2024 5:47 PM CDT [facility] SUITE FET PRE 8.38 sec 04/29/2024 5:47 PM CDT [facility] SUBSTANCE POST Albuterol 04/29/2024 5:47 PM CDT [facility] 04/28/2024 2:35 PM CDT Impressions [facility] - 04/29/2024 5:47 PM CDT Abnormal. Obstructive pattern, mild. No significant improvement after bronchodilator. Clinical correlation recommended. Narrative Procedure Note Haile Newell M.D. - 04/29/2024 IMPRESSION: Abnormal. Obstructive pattern, mild. No significant improvement afterbronchodilator. Clinical correlation recommended. Valdemar Ma M.D. PFT ORDERABLES [facility] NA documented in this encounter Visit Diagnoses Diagnosis Asthma Intrinsic (HCC) documented in this encounter Additional Health Concerns Assessment Noted Time PHQ-9 Depression Total Score: 0 02/06/20 17 10:07 AM CDT documented as of this encounter Care Teams Case Fitter Relationship Specialty Start Date End Date Elsewhere, Pcp PCP - General Internal Medicine 03/16/22 documented as of this encounter
--- OUTSIDE RECORDS SUMMARY | 2024-06-05 10:12 | XMS_ITS | Encounter Summary ---
Author Organization [facility] Address [address] [place] [address] Care Team Providers Care Deportation Examiner Name Role Phone Elsewhere, Pcp Primary Care Provider Unavailabl e Reason for Visit * Reason Comments Med Refill Encounter Details Date Type Department Care Team (Late st Contact Info) Description 03/24/2024 Refill Division of Allergic Diseases in [place], [place] [address] [place] [phone] Valdemar Ma M.D. [address] [place] [phone] Med Refill Social History Tobacco Use Types [...] week 03/16/2022 How often do you attend [facility] or latter-day services? More than 4 times per year 03/16/2022 Do you belong to any clubs o r organizations such as rastafarian groups, unions, fraternal [...] Answer Date Recorded PHQ-2 Score 0 02/15/2021 [facility] of Occupat ionwv Health - Occupational Stress Questionnaire Answer Date [...] or slept in a penitentiary (including now)? No 03/16/2022 Nutrition Answer Date [...] Master's degree (e.g., MA, MS, Roland, MEd, MACHINE PACKAGE SEALER, MARIE) 02/15/2021 Sex and Gender Information Value [...] documented as of this encounter Care Teams Deportation Examiner Relationship Specialty Start Date End Date Elsewhere, Pcp PCP - General Internal Medicine 03/16/22 documented as of this encounter
--- OUTSIDE RECORDS SUMMARY | 2024-06-05 10:12 | XMS_ITS | Encounter Summary ---
Author Organization [facility] Address [address] [place] [address] Care Team Providers Care Cloth Stock Sorter Name Role Phone Elsewhere, Pcp Primary Care Provider Unavailabl e Reason for Visit * Reason Onset Date Comments Previsit Preparation 04/24/2024 * Appointment Request (Routine) - Authorized Specialty Diagnoses / Procedures Referred By Huma kendall Referred To Contact Allergy and Immunology Valdemar Ma M.D. [address] [place] [phone] Referral ID Status Reason Start Date Expiration Date V isits Requested Visits Authorized [id number] Authorized 12/09/2023 12/08/2024 1 1 Encounter Details Date Type Department Care Team (Latest Contact Info) Description 04/24/2024 11:00 AM CDT Clinical Communication Virtual Review in [place], [place] [address] [place] [phone] Previsit Preparation Social History Tobacco Use Types Packs/Day Years [...] week 03/16/2022 How often do you attend [facility] or buddhist services? More than 4 times per year 03/16/2022 Do you belong to any clubs o r organizations such as roman catholic groups, unions, [...] Answer Date Recorded PHQ-2 Score 0 02/15/2021 [facility] of Occupat ional Health - Occupational Stress [...] or slept in a detention (including now)? No 03/16/2022 Nutrition Answer Date [...] Master's degree (e.g., MA, MS, Roland, MEd, MANAGER FLIGHT OPERATIONS, MARIE) 02/15/2021 Sex and Gender Information Value [...] documented as of this encounter Care Teams Cloth Stock Sorter Relationship Specialty Start Date End Date Elsewhere, Pcp PCP - General Internal Medicine 03/16/22 documented as of this encounter
--- OUTSIDE RECORDS SUMMARY | 2024-06-05 10:12 | XMS_ITS | Referral Summary ---
Author Organization [facility] Address [address] [place] [address] Care Team Providers Care Second Cook And Baker Name Role Phone Elsewhere, Pcp Primary Care Provider Unavailabl e Source Comments Patient records contain information from all sites at [facility]. For routine questions regarding patient records, call [phone] during business hours, M-F 8:00 AM - 5:00 PM Central Time. Record requests for emergency care only can be directed to [phone] at any time.[facility] Encounters Date Type Department Care Team Description 04/28/2024 3:00 PM CDT Clinical Support Division of Allergic Diseases in [address] [phone] Valdemar Ma M.D. Sherley Gonsalez, Francesco.Elida.P., R.N. Asthma Intrinsic ([facility]) 04/28/2024 4:00 PM CDT Office Visit Division of Allergic Diseases in [address] [phone] Valdemar Ma M.D. Asthma Intrinsic ([facility]) 04/24/2024 11:00 AM CDT Clinical Communication Virtual Review in [place], [place] 200 [place] [address] Previsit Preparation 03/24/2024 Refill Division of Allergic Diseases in [place], [place] [address] [place] [phone] Valdemar Ma M.D. Med Refill 03/13/2024 Refill Division of Allergic Diseases in [place], [place] [address] [place] [address] Valdemar Ma M.D. Med Refill from Last 3 Months Allergies Active Allergy Reactions Criticality Noted Date [...] from 07/26/2022:Stage IA(pT1c, pN0(sn), cM0, G1, ER+, [place]+, HER2-, Oncotype DX score: 5) - Unsigned [...] 0.6 oz pur e alcohol) very rarely [facility] Utilities Answer Date Recorded In the past 12 months has th e electric, gas, oil, or water company [...] 03/16/2022 How often do you attend [facility] or advent services? More than 4 times per year 03/16/2022 Do you belong to any clubs o r organizations such as bahai groups, unions, fraternal or athletic groups, or [...] Date Recorded PHQ-2 Score 0 02/15/2021 [facility] of Occupat ional Health - Occupational Stress [...] your living situation today? I have a [facility] place to live 04/28/2024 Education Answer Date Recorded What is the highest level of school you have completed or the highest degree you have received? Master's degree (e.g., MA, MS, Roland, MEd, ELECTRONIC ORGAN TECHNICIAN, MARIE) 02/15/2021 Sex and Gender Information Value Date Recorded Sex Assigned at Female 06/26/2021 8:35 AM CDT Gender Identity Female 02/05/2018 8:11 AM CDT Sexual Orientation Straight 02/05/2018 8: 11 AM CDT Last Filed Vital Signs Vital Sign Reading Time Taken Comments Blood Pressure 157/64 08/24/2022 7:58 AM ARCHIVIST Pulse 80 08/24/2022 7:58 AM ARCHIVIST Temperature 36.1 ??C (97 ??F) 02/28/2023 10: 20 AM CDT Respiratory Rate 12 02/15/2021 9:32 AM CDT Oxygen Saturation 97% 09/28/2019 10: 15 AM ARCHIVIST Inhaled Oxygen Concentration - - Weight 97.4 kg (214 lb 11.7 oz) 04/28/2024 2:33 PM CDT Height 161.6 cm (5' 3.62) 04/28/2024 2:33 PM CD T Body Mass Index 37.3 04/28/2024 2:33 PM CDT Plan of Treatment Not on file Medical Devices Implanted Type Area Real Property Appraiser Device Identifier Shelf Expiration Date Model / Serial / Lot Knee Implant Knee Implant Right: Knee Knee Implant Knee Implant Left: Knee Procedures Procedure Name Priority Date/Time Associated Diagnosis Comments [place] BRONCHODILATION RESPONSIVENESS Routine 04/28/2024 2:35 PM CDT [...] PostFVC 2.07 L 04/29/2024 5:47 PM CDT [facility] PostFEV1 1.38 L 04/29/2024 5:47 PM CDT [facility] FEV1/FVC POST 66.58 % 04/29/2024 5:47 PM CDT [facility] FEF 25-75 % POST 0.79 L/s 04/29/2024 5:47 PM CDT [facility] SUITE PEF POST 4.64 L/s 04/29/2024 5:47 PM CDT [facility] PIF POST 4.20 L/s 04/29/2024 5:47 PM CDT [facility] FEF 50 % FIF 50 POST 19.98 % 04/29/2024 5:47 PM CDT [facility] FET POST 12.91 sec 04/29/2024 5:47 PM CDT [facility] FVC 1.92 L 04/29/2024 5:47 PM CDT [facility] FEV1 1.21 L 04/29/2024 5:47 PM CDT [facility] FEV1/FVC 63.19 % 04/29/2024 5:47 PM CDT [facility] GRP63-32% 0.68 L/s 04/29/2024 5:47 PM CDT [facility] PEF PRE 4.10 L/s 04/29/2024 5:47 PM CDT [facility] PIF PRE 3.72 L/s 04/29/2024 5:47 PM CDT [facility] FEF 50 % FIF 50 PRE 16.74 % 04/29/2024 5:47 PM CDT [facility] FET PRE 8.38 sec 04/29/2024 5:47 PM CDT [facility] SUBSTANCE POST Albuterol 04/29/2024 5:47 PM CDT [facility] 04/28/2024 2:35 PM CDT Impressions [facility] - 04/29/2024 5:47 PM CDT Abnormal. Obstructive pattern, mild. No significant improvement after bronchodilator. Clinical correlation recommended. Narrative Procedure Note Haile Newell M.D. - 04/29/2024 IMPRESSION: Abnormal. Obstructive pattern, mild. No significant improvement afterbronchodilator. Clinical correlation recommended. Valdemar Ma M.D. PFCarly ORDERABLES [facility] [address] * Cologuard-Sent Out Lab (02/27/2021 [...] screened with both Cologuard and colonoscopy. (Justin Carroll. et al, N Engl J Med 2014;370(14):0806-3895) The normal value (reference range) for this assay is negative. COLOGUARD RE-SCREENING RECOMMENDATION: Periodic routine colorectal cancer screening is an important part of preventive healthcare for asymptomatic persons at average risk for colorectal cancer. Following a negative Cologuard result, the [place] [employer] Society and U.S. Multi-Society Task Force screening guidelines recommend a Cologuard re-screening interval of 3 years. References: [place] [employer] Society (ACS). Colorectal cancer prevention and early detection. [place], [place]: [place] [employer]; [updated 2015Jan 28]. https://www.cancer.org/cancer/sksjm-uzekec-fpmzgd/detection- diagnosis-staging/acs-recommendations.html. Accessed June 06, 2018; Yung DK, Med CR, Ernesto DurantK, Colorectal Cancer Screening: Recommendations for Physicians and Patients from the U.S. Multi-Society Task Force on Colorectal Cancer Screening, Am J Gastroenterology 2017; 112:9222-3987. TEST TYPE: Composite algorithmic analysis of stool [...] interval of every 3 years by the [place] [employer] Society and U.S. Multi-Society Task Force. [...] can be accessed at the following location: www.Mobly.[facility]/results. Additional description of the Cologuard test process, warnings and precautions can be found at www.cologuardtest.com. Rx only. Stool (Stool) 02/27/2021 9:5 5 PM CDT 03/01/2021 3:38 PM CDT Igor Horn P.A.-C. LAB BODY FLUID S AND STOOLS ORDERABLES [facility] [address] [place] [address] EXLI [facility] [address] [facility], [address] [place] [address] * S-TSH (Thyroid-Stimulating Hormone - Sensitive) (02/15/2021 8:46 AM CDT) TSH, Sensitive 2.8 0.3 - 4.2 mIU/L 02/15/2021 11:24 AM CDT [facility] Blood (Blood, Venous) 02/15/2021 8:46 AM CDT 02/15/2021 10:39 AM CDT Igor Horn P.A.-C. LAB BLOOD ADD- ON [facility] [address] [place] [address], [place] [facility] [facility] [place] [address] [place] [address] * Comprehensive Metabolic Panel (02/15/2021 8:46 AM [...] Igor Horn P.A.-C. LAB BLOOD ADD- ON [facility] [address] [place] [address], [place] OW[place] [facility] [place] [address] [place] [address] from Last 3 Months or Most Recently Relevant to Health Maintenance Care Teams Second Cook And Baker Relationship Specialty Start Date End Date Elsewhere, Pcp PCP - General Internal Medicine 03/16/22
--- NOTE | 2024-06-05 10:15 | CRLHL7_ITS ---
For Patients: As a result of the Century Cures Act, medical imaging exams and procedure reports are released immediately into your electronic medical record. You may view this report before your referring provider. If you have questions, please contact your health care provider. BILATERAL SCREENING MAMMOGRAM WITH COMPUTER-AIDED DETECTION AND TOMOSYNTHESIS TECHNIQUE: CC and MLO views were obtained. These mammographic images have been obtained using full-field digital technique. These mammographic images were interpreted with the benefit of computer-aided detection. Breast Tomosynthesis was used in this interpretation. COMPARISON FILM: 05/24/22, 06/19/22. FINDINGS: There are scattered areas of fibroglandular density IMPRESSION: There is no radiographic evidence for malignancy. ASSESSMENT: BI-RADS Category 2: Benign RECOMMENDATION: Routine screening mammogram in 1 year. A lay language report of this examination will be provided to the patient. Jj Bates M.D. Diagnostic Radiologist [email or web address] RADHA/Dictated by: Jj Bates MD @ 06/05/2024 2:04:00 PM (Electronically Signed)
== END 2024-06-05 10:09 | disposition home or self-care (01) ==
LOC: MAMMO 10:09
PROVIDERS: PCP Nurse Practitioner Family; Visit Provider Nurse Practitioner Family
DX: Z12.31 Encounter for screening mammogram for malignant neoplasm of breast (principal)
CPT/HCPCS: 77063; 77067

== ENCOUNTER 2024-07-06 14:53 | Outpatient (CLI) | payer MEDICARE, BC, SELFPAY ==
--- OUTSIDE RECORDS SUMMARY | 2024-07-06 14:57 | XMS_ITS | Clinical Summary ---
Author Organization [facility] Address [address] [place] [address] Care Team Providers Care Carrier Washer Name Role Phone Elsewhere, Pcp Primary Care Provider Unavailabl e Source Comments Patient records contain information from all sites at [facility]. For routine questions regarding patient records, call [phone] during business hours, M-F 8:00 AM - 5:00 PM Central Time. Record requests for emergency care only can be directed to [phone] at any time.[facility] Allergies Active Allergy Reactions Criticality Noted [...] from 07/26/2022:Stage IA(pT1c, pN0(sn), cM0, G1, ER+, KS+, HER2-, Oncotype DX score: 5) - Unsigned [...] Office Visit Division of Allergic Diseases in [address] [phone] Valdemar Ma M.D. Asthma Intrinsic (HCC) 04/28/2024 3:00 PM CDT Clinical Support Division of Allergic Diseases in [address] [phone] Valdemar Ma M.D. Sherley Gonsalez D.N.P., R.N. Asthma Intrinsic (HCC) 04/24/2024 11:00 AM CDT Clinical Communication Virtual Review in [address] [phone] Previsit Preparation from Last 3 Months Immunizations Name Administration [...] Td, (Adult) Unspecified 12/31/1997 Tdap 07/25/2007,07/25/2007 influenza trivalent high dos e (HD)(PF) 07/21/2019,07/28/2018,07/12/2017 influenza vaccine quad (FLUZONE/FLUARIX) (6 months [...] 0.6 oz pur e alcohol) very rarely [facility] Utilities Answer Date Recorded In the past 12 months has th e electric, gas, oil, or water [employer] threatened to shut off services in your [...] How often do you attend chur or restorationist services? More than 4 times per year 03/16/2022 Do you belong to any clubs o r organizations such as voodoo groups, unions, fraternal [...] Date Recorded PHQ-2 Score 0 02/15/2021 [facility] - Occupational Stress Questionnaire Answer Date Recorded [...] living situation today? I have a [facility] place to live 04/28/2024 Education Answer Date Recorded What is the highest level of school you have completed or the highest degree you have received? Master's degree (e.g., JENNY, MS, Roladn, MEd, THREAT ANALYST, MARIE) 02/15/2021 Sex and Gender Information Value Date Recorded Sex Assigned at Female 06/26/2021 8:35 AM CDT Gender Identity Female 02/05/2018 8:11 AM CDT Sexual Orientation Straight 02/05/2018 8: 11 AM CDT Last Filed Vital Signs Vital Sign Reading Time Taken Comments Blood Pressure 157/64 08/24/2022 7:58 AM SALES ASSOCIATE FISHING Pulse 80 08/24/2022 7:58 AM SALES ASSOC[employer] Temperature 36.1 ??C (97 ??F) 02/28/2023 10: 20 AM CDT Respiratory Rate 12 02/15/2021 9:32 AM CDT Oxygen Saturation 97% 09/28/2019 10: 15 AM SALES ASSOCIATE [employer] Inhaled Oxygen Concentration - - Weight 97.4 [...] PHQ-2) 10/07/2023 Fall Risk Screen (Annual) 10/07/2023 COVID-19 Vaccine ( season) 2024 02/17/2024, 08/12/2023, 03/30/2023, Additional history exists Influenza Vaccine (#1) 2024 , 08/21/2022, 07/06/2021, [...] Discontinued 03/03/2021, 02/27/2021 Colorectal Cancer Surveillance Discontinued RSV vaccine - (32-36 weeks) or 60+ years Completed 08/07/2023 CT Colonography Discontinued HPV Vaccines Aged Out No longer eligi ble based on patient's age to complete this topic Medical Devices Implanted Type Area Wire Stripping Machine Operator Device Identifier Shelf Expiration Date Model / Serial / Lot Knee Implant Knee Implant Right: Knee Knee Implant Knee Implant Left: Knee Procedures Procedure Name Priority Date/Time Associated Diagnosis Comments [place] BRONCHODILATION RESPONSIVENESS Routine 04/28/2024 2:35 PM CDT [...] PostFVC 2.07 L 04/29/2024 5:47 PM CDT [facility] PostFEV1 1.38 L 04/29/2024 5:47 PM CDT [facility] FEV1/FVC POST 66.58 % 04/29/2024 5:47 PM CDT [facility] FEF 25-75 % POST 0.79 L/s 04/29/2024 5:47 PM CDT [facility] PEF POST 4.64 L/s 04/29/2024 5:47 PM CDT [employer] PIF POST 4.20 L/s 04/29/2024 5:47 PM CDT [facility] FEF 50 % FIF 50 POST 19.98 % 04/29/2024 5:47 PM CDT [facility] FET POST 12.91 sec 04/29/2024 5:47 PM CDT [facility] FVC 1.92 L 04/29/2024 5:47 PM CDT [facility] FEV1 1.21 L 04/29/2024 5:47 PM CDT [facility] FEV1/FVC 63.19 % 04/29/2024 5:47 PM CDT [facility] PYJ82-32% 0.68 L/s 04/29/2024 5:47 PM CDT [facility] PEF PRE 4.10 L/s 04/29/2024 5:47 PM CDT [facility] PIF PRE 3.72 L/s 04/29/2024 5:47 PM CDT [facility] FEF 50 % FIF 50 PRE 16.74 % 04/29/2024 5:47 PM CDT [facility] FET PRE 8.38 sec 04/29/2024 5:47 PM CDT [facility] SUBSTANCE POST Albuterol 04/29/2024 5:47 PM CDT [facility] 04/28/2024 2:35 PM CDT Impressions [facility] - 04/29/2024 5:47 PM CDT Abnormal. Obstructive pattern, mild. No significant improvement after bronchodilator. Clinical correlation recommended. Narrative Procedure Note Haile Newell M.D. - 04/29/2024 IMPRESSION: Abnormal. Obstructive pattern, mild. No significant improvement afterbronchodilator. Clinical correlation recommended. Valdemar Ma M.D. PFT ORDERABLES [facility] NA * Cologuard-Sent Out Lab (02/27/2021 9:55 PM CDT) Pathologist [facility] Result Negative Not Applicable 03/03/2021 5:13 PM [...] (Justin Shearer al, N Engl J Med 2014;370(14):9128-6009) The normal value (reference range) for this assay is negative. COLOGUARD RE-SCREENING RECOMMENDATION: Periodic routine colorectal cancer screening is an important part of preventive healthcare for asymptomatic persons at average risk for colorectal cancer. Following a negative Cologuard result, the [place] Cancer Society and U.S. Multi-Society Task Force screening guidelines recommend a Cologuard re-screening interval of 3 years. References: [place] Cancer Society (ACS). Colorectal cancer prevention and early detection. [place], [place]: [place] Cancer Society; [updated 2015Jan 28]. https://www.cancer.org/cancer/spvzh-swlaqc-sulkgu/detection- diagnosis-staging/acs-recommendations.html. Accessed June 06, 2018; Yung LAMBERT, Med PECK, Ernesto MATTHEWS, Colorectal Cancer Screening: Recommendations for Physicians and Patients from the U.S. Multi-Society Task Force on Colorectal Cancer Screening, Am J Gastroenterology 2017; 112:4433-5429. TEST TYPE: Composite algorithmic analysis of stool [...] interval of every 3 years by the [place] Cancer Society and U.S. Multi-Society Task Force. [...] can be accessed at the following location: www.[employer]/results. Additional description of the Cologuard test process, warnings and precautions can be found at www.cologuardtest.com. Rx only. Stool (Stool) 02/27/2021 9:5 5 PM CDT 03/01/2021 3:38 PM CDT Igor Horn P.A.-C. LAB BODY FLUID S AND STOOLS ORDERABLES Performing Organization Address City/[facility]/ZIP Co de Phone Number [employer] [address] [place] [address] [employer] [address] [place] [address], [address] [place] [address] * S-TSH (Thyroid-Stimulating Hormone - Sensitive) (02/15/2021 8:46 AM CDT) TSH, Sensitive 2.8 0.3 - 4.2 mIU/L 02/15/2021 11:24 AM CDT [facility]AT Blood (Blood, Venous) 02/15/2021 8:46 AM CDT 02/15/2021 10:39 AM CDT Igor Horn P.A.-C. LAB BLOOD ADD- ON [facility] [address] [place] [address], [place] [facility] [place] [address] [place] [address] * Comprehensive Metabolic Panel (02/15/2021 8:46 AM [...] Igor Horn P.A.-C. LAB BLOOD ADD- ON [facility] [address] [place] [address], [place] [employer] [facility] [place] [address] [place] [address] from Last 3 Months or Most Recently Relevant to Health Maintenance Care Teams Carrier Washer Relationship Specialty Start Date End Date Elsewhere, Pcp PCP - General Internal Medicine 03/16/22
--- OUTSIDE RECORDS SUMMARY | 2024-07-06 14:57 | XMS_ITS ---
Author Organization [facility] Address [address] [place] [address] Care Team Providers Care Furnace Clerk Name Role Phone Unavailable Unavailable Unavailable Surgery Details Not on file Complications Check Surgery Details section. Procedure Estimated Blood Loss Check Surgery Details section. Procedure Findings Check Surgery Details section. Procedure Specimens Taken Check Surgery Details section.
--- OUTSIDE RECORDS SUMMARY | 2024-07-06 14:57 | XMS_ITS | Encounter Summary ---
Author Organization [facility] Address [address] [place] [address] Care Team Providers Care Electric Spot Welder Name Role Phone Elsewhere, Pcp Primary Care Provider Unavailabl e Reason for Visit * Reason Comments Allergy Testing Spirometry with bron chodilator * Outpatient (Routine) - Closed Specialty Diagnoses / Procedures Referred By Huma kendall Referred To Contact Diagnoses Asthma Intrinsic (HCC) Procedures Spirometry Valdemar Ma M.D. [address] [place] [phone] [facility] Referral ID Status Reason Start Date Expiration Date Visits Re quested Visits Authorized [id number] Closed 02/28/2023 02/28/2024 1 1 Encounter Details Date Type Department Care Team (Latest Contact Info) Description 04/28/2024 3:00 PM CDT Clinical Support Division of Allergic Diseases in [place], [place] [address] [place] [phone] Valdemar Ma M.D. [address] [place] [phone] Sherley Gonsalez D.N.P., R.N. [address] [place] [phone] Asthma Intrinsic (HCC) Social History Tobacco Use Types Packs/Day Years Used Date Smoking Tobacco: Never Smokeless Tobacco: Never Alcohol Use Standard Drinks/Week Comments Yes 1 (1 standard drink = 0.6 oz pur e alcohol) very rarely [facility] Utilities Answer Date Recorded In the [...] week 03/16/2022 How often do you attend formerly [facility] or zoroastrian services? More than 4 times per year 03/16/2022 Do you belong to any clubs o r organizations such as restorationist groups, unions, fraternal [...] Answer Date Recorded PHQ-2 Score 0 02/15/2021 [facility] of Occupat ional Health - [...] your living situation today? I have a [facility] place to live 04/28/2024 Education Answer Date Recorded What is the highest level of school you have completed or the highest degree you have received? Master's degree (e.g., MA, MS, Roland, MEd, ELECTROLYTIC DE SCALER, MARIE) 02/15/2021 Sex and Gender Information Value Date Recorded Sex Assigned at Female 06/26/2021 8:35 AM CDT Gender Identity Female 02/05/2018 8:11 AM CDT Sexual Orientation Straight 02/05/2018 8: 11 AM CDT documented as of this encounter Plan of Treatment Not on file documented as of this encounter Procedures Procedure Name Priority Date/Time Associated Diagnosis Comments [place] BRONCHODILATION RESPONSIVENESS Routine 04/28/2024 2:35 PM CDT Asthma Intrinsic (HCC) documented in this encounter Results * Spirometry (04/28/2024 2:35 PM CDT) PostFVC 2.07 L 04/29/2024 5:47 PM CDT [facility] PostFEV1 1.38 L 04/29/2024 5:47 PM CDT [facility] FEV1/FVC POST 66.58 % 04/29/2024 5:47 PM CDT [facility] FEF 25-75 % POST 0.79 L/s 04/29/2024 5:47 PM CDT [facility] PEF POST 4.64 L/s 04/29/2024 5:47 PM CDT [facility] PIF POST 4.20 L/s 04/29/2024 5:47 PM CDT [facility] FEF 50 % FIF 50 POST 19.98 % 04/29/2024 5:47 PM CDT [facility] SUITE FET POST 12.91 sec 04/29/2024 5:47 PM CDT [facility] FVC 1.92 L 04/29/2024 5:47 PM CDT [facility] FEV1 1.21 L 04/29/2024 5:47 PM CDT [facility] FEV1/FVC 63.19 % 04/29/2024 5:47 PM CDT [facility] XFR90-90% 0.68 L/s 04/29/2024 5:47 PM CDT [facility] PEF PRE 4.10 L/s 04/29/2024 5:47 PM CDT [facility] PIF PRE 3.72 L/s 04/29/2024 5:47 PM CDT [facility] FEF 50 % FIF 50 PRE 16.74 % 04/29/2024 5:47 PM CDT [facility] FET PRE 8.38 sec 04/29/2024 5:47 PM CDT [facility] SUBSTANCE POST Albuterol 04/29/2024 5:47 PM CDT [facility] 04/28/2024 2:35 PM CDT Impressions [facility] - 04/29/2024 5:47 PM CDT Abnormal. Obstructive pattern, mild. No significant improvement after bronchodilator. Clinical correlation recommended. Narrative Procedure Note Haile Newell M.D. - 04/29/2024 IMPRESSION: Abnormal. Obstructive pattern, mild. No significant improvement afterbronchodilator. Clinical correlation recommended. Valdemar Ma M.D. PFT ORDERABLES [facility] NA documented in this encounter Visit Diagnoses Diagnosis Asthma Intrinsic (HCC) documented in this encounter Additional Health Concerns Assessment Noted Time PHQ-9 Depression Total Score: 0 02/06/20 17 10:07 AM CDT documented as of this encounter Care Teams Electric Spot Welder Relationship Specialty Start Date End Date Elsewhere, Pcp PCP - General Internal Medicine 03/16/22 documented as of this encounter
--- OUTSIDE RECORDS SUMMARY | 2024-07-06 14:57 | XMS_ITS | Encounter Summary ---
Author Organization [facility] Address [address] [place] [address] Care Team Providers Care Granulating Machine Operator Name Role Phone Elsewhere, Pcp Primary Care Provider Unavailabl e Reason for Referral * Outpatient (Routine) - Authorized Specialty Diagnoses / Procedures Referred By Huma kendall Referred To Contact Diagnoses Asthma Intrinsic (HCC) Procedures Spirometry Valdemar Ma M.D. [address] [place] [phone] [facility] Referral ID Status Reason Start Date Expiration Date V isits Requested Visits Authorized [id number] Authorized 04/28/2024 04/28/2025 1 1 * Outpatient (Routine) - Authorized Specialty Diagnoses / Procedures Referred By Huma kendall Referred To Contact Allergy and Immunology Valdemar Ma M.D. [address] [place] [phone] [facility] Referral ID Status Reason Start Date Expiration Date V isits Requested Visits Authorized [id number] Authorized 04/28/2024 10/28/2025 1 1 Reason for Visit * Outpatient (Routine) - Closed Specialty Diagnoses / Procedures Referred By Huma kendall Referred To Contact Allergy and Immunology Valdemar Ma M.D. [address] [place] [phone] [facility] Referral ID Status Reason Start Date Expiration Date Visits Re quested Visits Authorized [id number] Closed 02/28/2023 02/27/2026 1 1 Encounter Details Date Type Department Care Team (Late st Contact Info) Description 04/28/2024 4:00 PM CDT Office Visit Division of Allergic Diseases in [place], [place] [address] [place] [phone] Valdemar Ma M.D. [address] [place] [phone] Asthma Intrinsic (HCC) Social History Tobacco Use Types Packs/Day Years Used Date Smoking Tobacco: Never Smokeless Tobacco: Never Alcohol Use Standard Drinks/Week Comments Yes 1 (1 standard drink = 0.6 oz pur e alcohol) very rarely [facility] Click[employer] Answer Date Recorded In the past 12 months has e [employer], gas, oil, or water [employer] threatened to shut off services in your [...] do you attend [facility] health system or mandaeism services? More than 4 times per year [...] Answer Date Recorded PHQ-2 Score 0 02/15/2021 [facility] of Occupat ional [facility] - Occupational Stress Questionnaire [...] your living situation today? [facility] 04/28/2024 Education Answer Date Recorded What is the highest level of school you have completed or the highest degree you have received? Master's degree (e.g., JENNY, MS, Roland, MEd, WORK TICKET DISTRIBUTOR, MARIE) 02/15/2021 Sex and Gender Information Value [...] Ms. Cedeño is an 83-year-old female from [place], [place]. She typically is in [place] August to January, and then in [place] from January to August. Interestingly, she will note typically with the 1st couple weeks in going to [place] she will have increase in symptoms and also when returning from [place] for a couple of weeks. Overall, she feels things have gone very well this past year. She continues on the Advair Diskus 100/50 one puff twice a day, Singulair 10 mg a day, and overall this has been working well for her. She rarely uses the albuterol outside of the couple weeks of when she arrives in [place] and then arrives in [place]. She has not had marked nasal symptoms [...] Valdemar Ma M.D. CT CT Job ID: [id number] documented in this encounter Plan of Treatment [...] documented as of this encounter Care Teams Granulating Machine Operator Relationship Specialty Start Date End Date Elsewhere, Pcp PCP - General Internal Medicine 03/16/22 documented as of this encounter
--- OUTSIDE RECORDS SUMMARY | 2024-07-06 14:57 | XMS_ITS ---
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 08/20/2022 Cancer Staging:Pathologic stage from 07/26/2022:Stage IA(pT1c, pN0(sn), cM0, G1, ER+, [place]+, HER2-, Oncotype DX score: 5) - Unsigned [...] Treated Prescribed Fraction Dose Prescribed Total Dose [id number] 09/05/2022 7 5 of 5 520 cGy 2,600 cGy Reference Point Last Treated On Elapsed Days Session Dose Total Dose [id number] 09/05/2022 7 520 cGy 2,600 cGy Resolved Problems Problem Noted Date Diagnosed Date Resolved Date 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
--- OUTSIDE RECORDS SUMMARY | 2024-07-06 14:57 | XMS_ITS | Referral Summary ---
Author Organization [facility] Address [address] [place] [address] Care Team Providers Care Rod Machine Operator Name Role Phone Elsewhere, Pcp Primary Care Provider Unavailabl e Source Comments Patient records contain information from all sites at [facility]. For routine questions regarding patient records, call [phone] during business hours, M-F 8:00 AM - 5:00 PM Central Time. Record requests for emergency care only can be directed to [phone] at any time.[facility] Encounters Date Type Department Care Team Description 04/28/2024 3:00 PM CDT Clinical Support Division of Allergic Diseases in [address] [address] Valdemar Ma M.D. Sherley Gonsalez, Francesco.N.P., R.N. Asthma Intrinsic ([facility]) 04/28/2024 4:00 PM CDT Office Visit Division of Allergic Diseases in [address] [address] Valdemar Ma M.D. Asthma Intrinsic (HCC) 04/24/2024 11:00 AM CDT Clinical Communication Virtual Review in [place], [place] [address] [place] [address] Previsit Preparation from Last 3 Months Allergies Active Allergy [...] from 07/26/2022:Stage IA(pT1c, pN0(sn), cM0, G1, ER+, RI+, HER2-, Oncotype DX score: 5) - Unsigned [...] 0.6 oz pur e alcohol) very rarely C Utilities Answer Date Recorded In the past 12 months has th e [employer], gas, oil, or water gantto threatened to shut off services in your [...] week 03/16/2022 How often do you attend [facility] or episcopalian services? More than 4 times per year 03/16/2022 Do you belong to any clubs o r organizations such as hoahaoism groups, unions, fraternal [...] Answer Date Recorded PHQ-2 Score 0 02/15/2021 [facility] [place] of Occupat ional Health - Occupational Stress [...] your living situation today? I have a [facility] place to live 04/28/2024 Education Answer Date Recorded What is the highest level of school you have completed or the highest degree you have received? Master's degree (e.g., MA, MS, Roland, MEd, CONVEYOR TENDER [employer]CR[employer]ANT, MARIE) 02/15/2021 Sex and Gender Information Value Date Recorded Sex Assigned at Female 06/26/2021 8:35 AM CDT Gender Identity Female 02/05/2018 8:11 AM CDT Sexual Orientation Straight 02/05/2018 8: 11 AM CDT Last Filed Vital Signs Vital Sign Reading Time Taken Comments Blood Pressure 157/64 08/24/2022 7:58 AM FELT HAT POUNCING OPERATOR HAND Pulse 80 08/24/2022 7:58 AM FELT HAT POUNCING OPERATOR HAND Temperature 36.1 ??C (97 ??F) 02/28/2023 10: 20 AM CDT Respiratory Rate 12 02/15/2021 9:32 AM CDT Oxygen Saturation 97% 09/28/2019 10: 15 AM FELT HAT POUNCING OPERATOR HAND Inhaled Oxygen Concentration - - Weight 97.4 kg (214 lb 11.7 oz) 04/28/2024 2:33 PM CDT Height 161.6 cm (5' 3.62) 04/28/2024 2:33 PM CD T Body Mass Index 37.3 04/28/2024 2:33 PM CDT Plan of Treatment Not on file Medical Devices Implanted Type Area Warp Tension Tester Device Identifier Shelf Expiration Date Model / Serial / Lot Knee Implant Knee Implant Right: Knee Knee Implant Knee Implant Left: Knee Procedures Procedure Name Priority Date/Time Associated Diagnosis Comments RI BRONCHODILATION RESPONSIVENESS Routine 04/28/2024 2:35 PM CDT [...] PostFVC 2.07 L 04/29/2024 5:47 PM CDT [facility] PostFEV1 1.38 L 04/29/2024 5:47 PM CDT [facility] FEV1/FVC POST 66.58 % 04/29/2024 5:47 PM CDT [facility] FEF 25-75 % POST 0.79 L/s 04/29/2024 5:47 PM CDT [facility] PEF POST 4.64 L/s 04/29/2024 5:47 PM CDT [facility] PIF POST 4.20 L/s 04/29/2024 5:47 PM CDT [facility] FEF 50 % FIF 50 POST 19.98 % 04/29/2024 5:47 PM CDT [facility] FET POST 12.91 sec 04/29/2024 5:47 PM CDT [facility] FVC 1.92 L 04/29/2024 5:47 PM CDT [facility] FEV1 1.21 L 04/29/2024 5:47 PM CDT [facility] FEV1/FVC 63.19 % 04/29/2024 5:47 PM CDT [facility] VFL61-74% 0.68 L/s 04/29/2024 5:47 PM CDT [facility] PEF PRE 4.10 L/s 04/29/2024 5:47 PM CDT [facility] PIF PRE 3.72 L/s 04/29/2024 5:47 PM CDT [facility] FEF 50 % FIF 50 PRE 16.74 % 04/29/2024 5:47 PM CDT [facility] FET PRE 8.38 sec 04/29/2024 5:47 PM CDT [facility] SUBSTANCE POST Albuterol 04/29/2024 5:47 PM CDT [facility] 04/28/2024 2:35 PM CDT Impressions [facility] - 04/29/2024 5:47 PM CDT Abnormal. Obstructive pattern, mild. No significant improvement after bronchodilator. Clinical correlation recommended. Narrative Procedure Note Haile Newell M.D. - 04/29/2024 IMPRESSION: Abnormal. Obstructive pattern, mild. No significant improvement afterbronchodilator. Clinical correlation recommended. Valdemar Ma M.D. PFT ORDERABLES [facility] NA * Cologuard-Sent Out Lab (02/27/2021 9:55 [...] screened with both Cologuard and colonoscopy. (Justin Pierce et al, N Engl J Med 2014;370(14):1644-1695) The normal value (reference range) for this assay is negative. COLOGUARD RE-SCREENING RECOMMENDATION: Periodic routine colorectal cancer screening is an important part of preventive healthcare for asymptomatic persons at average risk for colorectal cancer. Following a negative Cologuard result, the [place] Cancer Society and U.S. Multi-Society Task Force screening guidelines recommend a Cologuard re-screening interval of 3 years. References: [place] [employer] Society (ACS). Colorectal cancer prevention and early detection. [place], [place]: [place] [employer]; [updated 2015Jan 28]. https://www.cancer.org/cancer/qivba-quolcd-sbcazw/detection- diagnosis-staging/acs-recommendations.html. Accessed June 06, 2018; Yung LAMBERT, Med PECK, Ernesto DurantK, Colorectal Cancer Screening: Recommendations for Physicians and Patients from the U.S. Multi-Society Task Force on Colorectal Cancer Screening, Am J Gastroenterology 2017; 112:3654-1999. TEST TYPE: Composite algorithmic analysis of stool [...] interval of every 3 years by the [place] [employer] Society and U.S. Multi-Society Task Force. [...] can be accessed at the following location: www.[employer]/results. Additional description of the Cologuard test process, warnings and precautions can be found at www.cologuardtest.com. Rx only. Stool (Stool) 02/27/2021 9:5 5 PM CDT 03/01/2021 3:38 PM CDT Igor Horn P.A.-C. LAB BODY FLUID S AND STOOLS ORDERABLES Performing Organization Address City/[facility]/ZIP Co de Phone Number [employer] [address] [place] [address] [employer] [address] [place] [address], [address] [place] [address] * S-TSH (Thyroid-Stimulating Hormone - Sensitive) (02/15/2021 8:46 AM CDT) TSH, Sensitive 2.8 0.3 - 4.2 mIU/L 02/15/2021 11:24 AM CDT [facility] Blood (Blood, Venous) 02/15/2021 8:46 AM CDT 02/15/2021 10:39 AM CDT Igor Horn P.A.-C. LAB BLOOD ADD- ON [facility] [address] [place] [address], [facility]AT [facility] [place] [address] [place] [address] * Comprehensive Metabolic Panel (02/15/2021 8:46 AM [...] Igor Horn P.A.-C. LAB BLOOD ADD- ON [facility] [address] [place] [address], [place] [facility] in [place] [address] [place] [address] from Last 3 Months or Most Recently Relevant to Health Maintenance Care Teams Rod Machine Operator Relationship Specialty Start Date End Date Elsewhere, Pcp PCP - General Internal Medicine 03/16/22
--- OUTSIDE RECORDS SUMMARY | 2024-07-06 14:57 | XMS_ITS | Encounter Summary ---
Author Organization [facility] Address [address] [place] [address] Care Team Providers Care Checkroom Chief Name Role Phone Elsewhere, Pcp Primary Care Provider Unavailabl e Reason for Visit * Reason Onset Date Comments Previsit Preparation 04/24/2024 * Appointment Request (Routine) - Authorized Specialty Diagnoses / Procedures Referred By Huma kendall Referred To Contact Allergy and Immunology Valdemar Ma M.D. [address] [place] [id number] Referral ID Status Reason Start Date Expiration Date V isits Requested Visits Authorized [id number] Authorized 12/09/2023 12/08/2024 1 1 Encounter Details Date Type Department Care Team (Latest Contact Info) Description 04/24/2024 11:00 AM CDT Clinical Communication Virtual Review in [place], [place] [address] [place] [address] Previsit Preparation Social History Tobacco Use Types [...] week 03/16/2022 How often do you attend [facility] or buddhist services? More than 4 times per year 03/16/2022 Do you belong to any clubs o r organizations such as sikhism groups, unions, fraternal [...] Answer Date Recorded PHQ-2 Score 0 02/15/2021 [facility] [place] of Occupat ional Health - Occupational Stress [...] slept in a skilled nursing (including now)? No 03/16/2022 Nutrition Answer Date [...] Master's degree (e.g., MA, MS, Roland, MEd, INSURANCE CLAIMS CLERK, MARIE) 02/15/2021 Sex and Gender Information Value [...] documented as of this encounter Care Teams Checkroom Chief Relationship Specialty Start Date End Date Elsewhere, Pcp PCP - General Internal Medicine 03/16/22 documented as of this encounter
== END 2024-07-06 14:54 | disposition home or self-care (01) ==
PROVIDERS: PCP Nurse Practitioner Family; Visit Provider Nurse Practitioner Family
DX: M79.644 Pain in right finger(s) (principal)
CPT/HCPCS: 84550

== ENCOUNTER 2024-08-11 12:34 | Outpatient (CLI) | payer MEDICARE, BC, SELFPAY | END 2024-08-11 12:35 | disposition home or self-care (01) | PROVIDERS: PCP Nurse Practitioner Family; Visit Provider Nurse Practitioner Family | DX: E53.8 Deficiency of other specified B group vitamins (principal); E78.5 Hyperlipidemia, unspecified | CPT/HCPCS: 80061; 82607 ==

== ENCOUNTER 2024-08-12 13:20 | Outpatient (CLI) | payer MEDICARE, BC, SELFPAY ==
--- OUTSIDE RECORDS SUMMARY | 2024-08-12 13:23 | XMS_ITS ---
Author Organization [facility] Address [address] [place] [address] Care Team Providers Care Wire Brush Maker Name Role Phone Elsewhere, Pcp Primary Care Provider Unavailabl e Active Problems * This document contains information received from the source organization and may not represent a complete record from that organization. 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
--- OUTSIDE RECORDS SUMMARY | 2024-08-12 13:23 | XMS_ITS | Clinical Summary ---
Author Organization [facility] Address [place], [place] [address] Care Team Providers Care Guide Escort Name Role Phone Varsha Garcia CALL OR CONTACT CENTRE COACH Primary Care Provider [phone] Allergies Active Allergy Reactions Criticality Noted Date Comments Cats (Fur, Dander, Saliva) Shortness Of Breath 04/05/2016 Codeine *Unknown,GI Upset,Other - Describe In Comment Field High 11/01/2014 No reaction noted in [place] Dust Mites *Unknown 11/01/2014 Prochlorperazine Mental Status Change,Other - Describe In Comment Field High 12/21/2009 No reaction noted in [place] (From Compazine) Medications Medication Sig Dispensed Refills Start Date End Date Status omega-3 fatty acids-vitamin E (FISH OIL) 1,000 mg cap Take 1 capsule by mouth 3 times daily with meals. Active calcium carbonate-vitamin D3, 600 mg-400 unit, (CALCIUM 600 + D) 600 mg(1,500mg) -400 unit tablet Take 1 tablet by mouth 3 times daily with meals. Active clotrimazole (LOTRIMIN) 1 % cream Apply topically to affected area(s) 2 times daily. 60 g 1 10/16/2016 Active sennosides (SENNA) 8.6 mg tablet Take 1-2 tablets by mouth 2 times daily if needed. 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 100 tablet 05/07/2019 Active ketoconazole 2% shampoo (NIZORAL) 2 % shampooIndications: Erythema intertrigo Apply 1 application topically 3 (three) times a week. Apply to damp skin, lather, leave on 5 minutes, and rinse 120 mL 11 06/30/2021 Active azelastine 137 mcg/actuation (ASTELIN) nasal spray Inhale 2 Sprays into affected nostril(s) in the morning and 2 Sprays in the evening. 30 mL 12 03/20/2022 Active HYDROcodone-acetami nophen (NORCO) 5-325 mg per tablet Take 1 to 2 tablets by mouth every 6 hours As Needed for Pain; 14 Tablet 07/26/2022 Active ondansetron (ZOFRAN ODT) 4 mg disintegrating tablet Take 1 tablet (4 mg) by mouth every 8 hours As Needed for nausea and vomiting 5 Tablet 07/26/2022 Active fluticasone (50 mcg per actuation) nasal solution (FLONASE) Inhale 2 Sprays to both nostrils once daily. 48 g 3 02/05/2023 Active loratadine (CLARITIN) 10 mg tablet Take 1 Tablet (10 mg) by mouth once daily. 90 Tablet 3 02/05/2023 Active Blood-Glucose Meter check blood sugar daily 1 Each 07/22/2023 Active lancets check blood sugars daily 100 Each 3 07/22/2023 Active amoxicillin (AMOXIL) 500 mg capsule Take 4 Capsules (2,000 mg) by mouth 1 hour before dental appointment. 12 Capsule 1 08/12/2023 Active amoxicillin 500 mg capsule Take 4 capsules by mouth once 1 hour before dental visit 4 Capsule 6 03/13/2024 Active celecoxib (CELEBREX) 200 mg capsule Take 1 capsule by mouth every day 90 Capsule 3 03/13/2024 Active hydroCHLOROthiazide 25 mg tablet Take 1 Tablet (25 mg) by mouth once daily. 90 Tablet 3 03/13/2024 Active letrozole (FEMARA) 2.5 mg tablet Take 2.5mg by mouth once daily 90 Tablet 3 03/13/2024 Active levothyroxine (SYNTHROID) 75 mcg tablet Take 1 Tablet (75 mcg) by mouth once daily. 90 Tablet 3 03/13/2024 Active pravastatin (PRAVACHOL) 40 mg tablet Take 1 Tablet (40 mg) by mouth once daily. 90 Tablet 3 03/13/2024 Active triamcinolone (ARISTOCORT; KENALOG) 0.1 % cream Apply topically to affected area(s) up to 2 times daily as needed for rash 30 g 1 03/13/2024 Active albuterol HFA (PRO-AIR; VENTOLIN; PROVENTIL) 90 mcg/actuation inhaler Inhale 2 Puffs by mouth prior to exercise and also as needed for shortness of breath, wheeze. 54 g 3 04/28/2024 Active fluticasone propion-salmeteroL (ADVAIR) 100-50 mcg/dose diskus inhaler Inhale 1 Puff by mouth two times daily. 180 Each 3 04/28/2024 Active montelukast (SINGULAIR) 10 mg tablet Take 1 Tablet (10 mg) by mouth once daily. 90 Tablet 3 04/28/2024 Active lisinopriL (PRINIVIL; ZESTRIL) 40 mg tablet Take 1 Tablet (40 mg) by mouth once daily. 90 Tablet 2 06/09/2024 Active predniSONE (DELTASONE) 10 mg tabletIndications:L umbar radiculopathy,Lumba r facet arthropathy,Trochan teric bursitis of right hip Take 2 Tablets (20 mg) by mouth two times daily with meals for 3 days, THEN 1 Tablet (10 mg) three times daily with meals for 3 days, THEN 2 Tablets (20 mg) once daily with a meal for 3 days, THEN 1 Tablet (10 mg) once daily with a meal for 3 days. 30 Tablet 07/30/2024 4 Active ketoconazole 2% topical (NIZORAL) creamIndications:Er ythema intertrigo Apply 1 application topically 2 (two) times a day. Apply to red areas between folds of skin. 60 g 11 06/30/2021 4 Discontinu ed(*Patien t states no longer taking) tiotropium bromide (Spiriva Respimat) 1.25 mcg/actuation mist for inhalation Inhale 2 Puffs by mouth once daily in the morning. 4 g 1 08/14/2022 4 Discontinu ed(*Patien t states no longer taking) azithromycin (ZITHROMAX) 250 mg tablet Take 500 mg today (day 1), then 250 mg daily for 4 days (days 2-5). 6 Tablet 08/01/2023 4 Discontinu ed(*Patien t states no longer taking) blood sugar diagnostic (Accu-Chek Guide test strips) strip check blood sugars daily 100 Each 3 11/14/2023 4 Discontinu ed(*Patien t states no longer taking) Active Problems Problem Noted Date Diagnosed Date Spondylolisthesis of lumbar region 04/06/2016 Lumbar facet arthropathy 04/06/2016 Lumbar foraminal stenosis 04/06/2016 Adjustment disorder with mixed anxiety and depre ssed mood 01/23/2007 Resolved Problems Problem Noted Date Diagnosed Date Resolved Date Bereavement, uncomplicated 01/23/2007 0 04/06/2016 Encounters Date Type Department Care Team Description 07/30/2024 3:00 PM CDT Office Visit [facility] [address] [place] [address] Eliazar Elizalde MD Musculoskeletal Problem (Consult back and right hip pain, has been seen in the past 2019) 07/30/2024 Travel 07/28/2024 Transcribe Orders [facility] [address] [place] [address] Varsha Garcia NP 07/28/2024 Transcribe Orders [address] [address] Varsha Garcia NP 07/27/2024 Telephone [facility] [address] [place] [address] Eliazar Elizalde MD Appointment Request (INCREASED BACK PAIN) 07/27/2024 Telephone [facility] [address] [place] [address] Eliazar Elizalde MD Referral from Last 3 Months Social History Tobacco Use Types Packs/Day Years Used Date Smoking Tobacco: Never Smokeless Tobacco: Never Tobacco Cessation:Counseling Given: Yes Alcohol Use Standard Drinks/Week Comments No 0.8 (1 standard drink = 0.6 oz p ure alcohol) Sex and Gender Information Value Date Recorded Sex Assigned at Not on file Gender Identity Not on file Sexual Orientation Not on file Obstetrics History Last Filed Vital Signs Vital Sign Reading Time Taken Comments Blood Pressure 155/84 07/30/2024 3:14 PM CDT Pulse 84 07/30/2024 3:14 PM CDT Temperature 37.1 ??C (98.7 ??F) 07/30/2024 3:14 PM CD T Respiratory Rate 16 11/05/2014 8:14 AM LINES TENDER Oxygen Saturation 96% 07/30/2024 3:14 PM CDT Inhaled Oxygen Concentration - - Weight 101.2 kg (223 lb) 03/23/2019 11:30 AM CDT Height 161 cm (5' 3.39) 2014 7:04 AM LINES TENDER Body Mass Index 39.02 2014 7:04 AM LINES TENDER Plan of Treatment Health Maintenance Due Date Last Done Comments Tdap 1953 Depression screening for age 12+ 1954 BMI (ht and wt on same day) for age 18+ 1960 Zoster (shingles) series for age 50+ (1 of 2) 1961 Tetanus booster 1962 DEXA/DXA scan for age 65+ 2007 Medicare Wellness for age 65+ 2007 Pneumococcal series for age 65+ (1 of 1 - PCV) 2007 RSV vaccine for adults or (1 - 1-dose 75+ series) 2017 COVID-19 vaccine series ( season) 2024 02/17/2024, 08/12/2023, 03/30/2023, Additional history exists Influenza for age 65+ 06/07/2024 Medical Devices Implanted Type Area Non Profit Financial Controller Device Identifier Shelf Expiration Date Model / Serial / Lot [id number] - [id number] Implanted:Qty: 1 on 2014 by Babatunde Nickerson MD at [facility] Total Joint Left: Knee DEPUY 02/05/2024 [id number] Description:Attune Tibial Ba se Fixed Bearing size 5 Cemented [id number] - [id number] Implanted:Qty: 1 on 2014 by Babatunde Nickerson MD at [facility] Total Joint Left: Knee DEPUY 07/06/2024 1504-07-16 5 / [id number] Description:Attune Femoral P osterior Stabilized Size 5 Left Cemented [id number] - [id number] Implanted:Qty: 1 on 2014 by Babatunde Nickerson MD at [facility] Total Joint Left: Knee DEPUY 02/03/2019 5 / / [id number] Description:Attune Patella M edialized Dome 35mm Cemented AOX Cement Simplex P#[id number] * - [id number] Implanted:Qty: 2 on 2014 by Babatunde Nickerson MD at [facility] Left: Knee D-HOWMEDICA 02/03/2017 6191-1-010 / / [id number] - [id number] Implanted:Qty: 1 on 2014 by Babatunde Nickerson MD at [facility] Left: Knee DEPUY 07/06/2019 [id number] Description:Attune Tibial In sert Fixed Bearing Posterior Stabilized Care Teams Guide Escort Relationship Specialty Start Date End Date Varsha Garcia NP [address] [place], [place] [address] PCP - General Emergency Medicine 03/07/22
--- OUTSIDE RECORDS SUMMARY | 2024-08-12 13:23 | XMS_ITS | Referral Summary ---
Author Organization [facility] Address [address] [place] [address] Care Team Providers Care Instructor Dramatic Arts Name Role Phone Elsewhere, Pcp Primary Care Provider Unavailabl e Source Comments Patient records contain information from all sites at [facility]. For routine questions regarding patient records, call [phone] during business hours, M-F 8:00 AM - 5:00 PM Central Time. Record requests for emergency care only can be directed to [phone] at any time.[facility] Allergies Active Allergy Reactions Criticality Noted Date [...] reaction noted in Cerner (From Compazine) Medications * This document contains information received from the source organization and may not represent a complete record from that organization. CALCIUM CARB/VIT D3/MINERALS (CALCIUM-VITAMI N D ORAL) Take 1 tablet by mouth 2 (two) times a day. 2 Active DOCOSAHEXANOIC ACID/EPA (FISH OIL ORAL) 3 (three) times a day. 2 in AM 1 capsule in PM 0 Active amoxicillin (AMOXIL) 500 mg capsule Take 2,000 mg by mouth. 6 Active celecoxib (CeleBREX) 200 mg capsule Take 1 Capsule (200 mg) by mouth once daily with a meal. 90 capsule 3 1 Active triamcinolone (KENALOG) 0.1 % cream Apply to affected area 1-2 times daily as needed. Avoid face and groin. 30 g 1 Active fluticasone propionate (FLONASE) 50 mcg/actuation nasal sprayIndication s:Asthma Intrinsic (HCC) Administer 1 spray into each nostril daily as needed for rhinitis or allergies. 16 g 1 Active hydroCHLOROthia zide (HYDRODIURIL) 25 mg tablet Take 1 Tablet (25 mg) by mouth once daily. 90 tablet 3 2 Active levothyroxine (SYNTHROID, LEVOTHROID) 75 mcg tablet Take 1 Tablet (75 mcg) by mouth once daily. 90 tablet 3 2 Active pravastatin (PRAVACHOL) 40 mg tablet Take 1 Tablet (40 mg) by mouth once daily. 90 tablet 3 2 Active azelastine (ASTELIN) 137 mcg/spray (0.1 %) nasal spray Administer 2 sprays into each nostril 2 (two) times a day. Use in each nostril as directed 30 mL 12 2 Active azithromycin (ZITHROMAX) 250 mg tablet Take 500 mg today (day 1), then 250 mg for 4 days (days 2-5) 2 Active lisinopriL (PRINIVIL,ZESTR IL) 40 mg tablet Take 40 mg by mouth. 2 Active letrozole (FEMARA) 2.5 mg tablet 3 Active fluticasone propion-salmete roL (Advair Diskus) 100-50 mcg/actuation diskus inhaler Inhale 1 Puff by mouth two times daily. 180 each 3 4 Active montelukast (Singulair) 10 mg tablet Take 1 tablet (10 mg total) by mouth daily. 90 tablet 3 4 Active predniSONE (Deltasone) 10 mg tabletIndicatio ns:Asthma Intrinsic (HCC) Take 2 tabs a day for 5 days, then 1 tab a day for 5 days. Please have on file, will request when needed. 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 More than 4 times per year 03/16/2022 Do you belong to any clubs o r organizations such as advent groups, unions, fraternal [...] Answer Date Recorded PHQ-2 Score 0 02/15/2021 [facility] - Occupational [...] your living situation today? I have a [facility] place to live 04/28/2024 Education Answer Date Recorded What is the highest level of school you have completed or the highest degree you have received? Master's degree (e.g., MA, MS, Roland, MEd, LAYOUT ARTIST, MARIE) 02/15/2021 Comments No Sex and Gender Information Value Date Recorded Sex Assigned at Female 06/26/2021 8:35 AM CDT Legal Sex Female 10:53 PM NEUROLOGY SPECIALIST Gender Identity Female 02/05/2018 8:11 AM CDT Sexual Orientation Straight 02/05/2018 8: 11 AM CDT Occupation Industry Job Start Date Job End Date Not on file Not on file Not on file Not on file Last Filed Vital Signs Vital Sign Reading Time Taken Comments Blood Pressure 157/64 08/24/2022 7:58 AM NEUROLOGY SPECIALIST Pulse 80 08/24/2022 7:58 AM NEUROLOGY SPECIALIST Temperature 36.1 ??C (97 ??F) 02/28/2023 10: 20 AM CDT Respiratory Rate 12 02/15/2021 9:32 AM CDT Oxygen Saturation 97% 09/28/2019 10: 15 AM NEUROLOGY SPECIALIST Inhaled Oxygen Concentration - - Weight 97.4 kg (214 lb 11.7 oz) 04/28/2024 2:33 PM CDT Height 161.6 cm (5' 3.62) 04/28/2024 2:33 PM CD T Body Mass Index 37.3 04/28/2024 2:33 PM CDT Plan of Treatment Not on file Medical Devices Implanted Type Area Real Estate Assessor Device Identifier Shelf Expiration Date Model / [...] (Justin Shearer al, N Engl J Med 2014;370(14):0661-6724) The normal value (reference range) for this assay is negative. COLOGUARD RE-SCREENING RECOMMENDATION: Periodic routine colorectal cancer screening is an important part of preventive healthcare for asymptomatic persons at average risk for colorectal cancer. Following a negative Cologuard result, the [place] Cancer Society and U.S. Multi-Society Task Force screening guidelines recommend a Cologuard re-screening interval of 3 years. References: [place] Cancer Society (ACS). Colorectal cancer prevention and early detection. [place], [place]: [place] [employer] Society; [updated 2016 Jan 28]. https://www.cancer.org/cancer/itmdq-phfbea-vkciko/detection- diagnosis-staging/acs-recommendations.html. Accessed June 06, 2018; Yung DK, Med PECK, Ernesto DurantK, Colorectal Cancer Screening: Recommendations for Physicians and Patients from the U.S. Multi-Society Task Force on Colorectal Cancer Screening, Am J Gastroenterology 2017; 112:8627-5868. TEST TYPE: Composite algorithmic analysis of stool [...] interval of every 3 years by the [place] Cancer Society and U.S. Multi-Society Task Force. [...] can be accessed at the following location: www.[employer]com/results. Additional description of the Cologuard test process, warnings and precautions can be found at www.cologuardtest.com. Rx only. Stool (Stool) 02/27/2021 9:5 5 PM CDT 03/01/2021 3:38 PM CDT us Igor Horn P.A.-C. LAB BODY FLUIDS AND ST OOLS ORDERABLES Final Result [employer] [address] [place] [address] EXLI [facility] [address] [facility], [address] [place] [address] * S-TSH (Thyroid-Stimulating Hormone - Sensitive) (02/15/2021 8:46 AM CDT) TSH, Sensitive 2.8 0.3 - 4.2 mIU/L 02/15/2021 11:24 AM CDT OWAT Blood (Blood, Venous) 02/15/2021 8:46 AM CDT 02/15/2021 10:39 AM CDT us Igor Horn P.A.-C. LAB BLOOD ADD-ON Final Result [facility] [address] [address], [facility] OWAT [facility] [place] [address] [place] [address] * Comprehensive Metabolic Panel (02/15/2021 8:46 AM [...] 8:46 AM CDT 02/15/2021 10:39 AM CDT us Igor Horn P.A.-C. LAB BLOOD ADD-ON Final Result [facility] [address] [place] [address], [place] OWAT [facility] [place] [address] [place] [address] from Last 3 Months or Most Recently Relevant to Health Maintenance Insurance [facility] BL[facility] MEDICARE Care Teams Instructor Dramatic Arts Relationship Specialty Start Date End Date Elsewhere, Pcp PCP - General Internal Medicine 03/16/22
--- OUTSIDE RECORDS SUMMARY | 2024-08-12 13:23 | XMS_ITS ---
Author Organization [facility] Address [address] [place] [address] Care Team Providers Care General Distillery Worker Name Role Phone Unavailable Unavailable Unavailable Surgery Details Not on file Complications Check Surgery Details section. Procedure Estimated Blood Loss Check Surgery Details section. Procedure Findings Check Surgery Details section. Procedure Specimens Taken Check Surgery Details section.
--- OUTSIDE RECORDS SUMMARY | 2024-08-12 13:23 | XMS_ITS | Clinical Summary ---
Author Organization [facility] Address [address] [place] [address] Care Team Providers Care Time Stamp Assembler Name Role Phone Elsewhere, Pcp Primary Care Provider Unavailabl e Source Comments Patient records contain information from all sites at [facility]. For routine questions regarding patient records, call [phone] during business hours, M-F 8:00 AM - 5:00 PM Central Time. Record requests for emergency care only can be directed to [phone] at any time.[facility] Allergies Active Allergy Reactions Criticality Noted [...] from 07/26/2022:Stage IA(pT1c, pN0(sn), cM0, G1, ER+, [place]+, HER2-, Oncotype DX score: 5) - Unsigned [...] 0.6 oz pur e alcohol) very rarely [facility] [employer] Answer Date Recorded In the past 12 months has e [employer], oil, or water [employer] threatened to shut off services in your [...] week 03/16/2022 How often do you attend [facility] or roman catholic services? More than 4 times per year [...] Answer Date Recorded PHQ-2 Score 0 02/15/2021 [facility] - Occupational [...] your living situation today? I have a [facility] place to live 04/28/2024 Education Answer Date Recorded What is the highest level of school you have completed or the highest degree you have received? Master's degree (e.g., MA, MS, Roland, MEd, LINING FOLDER, MARIE) 02/15/2021 Comments No Sex and Gender Information Value Date Recorded Sex Assigned at Female 06/26/2021 8:35 AM CDT Legal Sex Female 10:53 PM CHIEF ENGINEERING DIVISION Gender Identity Female 02/05/2018 8:11 AM CDT Sexual Orientation Straight 02/05/2018 8: 11 AM CDT Occupation Industry Job Start Date Job End Date Not on file Not on file Not on file Not on file Last Filed Vital Signs Vital Sign Reading Time Taken Comments Blood Pressure 157/64 08/24/2022 7:58 AM CHIEF ENGINEERING DIVISION Pulse 80 08/24/2022 7:58 AM CHIEF ENGINEERING DIVISION Temperature 36.1 ??C (97 ??F) 02/28/2023 10: 20 AM CDT Respiratory Rate 12 02/15/2021 9:32 AM CDT Oxygen Saturation 97% 09/28/2019 10: 15 AM CHIEF ENGINEERING DIVISION Inhaled Oxygen Concentration - - Weight 97.4 kg (214 lb 11.7 oz) 04/28/2024 2:33 PM CDT Height 161.6 cm (5' 3.62) 04/28/2024 2:33 PM CD T Body Mass Index 37.3 04/28/2024 2:33 PM CDT Plan of Treatment Health Maintenance Due Date Last Done Comments Office Visit for Blood Pressure Check / Re-check 1940 IPV Vaccines (2 of 3 - Adult catch-up series) 04/16/2011 03/19/2011 Creatinine Level (Kidney Function Test) 02/15/2022 02/15/2021, [...] 09/15/2008 Hepatitis A Vaccines Completed 02/12/2019, 03/19/20 11 Hepatitis B Vaccines Completed 02/12/2019, 05/23/2011, 05/23/2011, Additional history exists Zoster Vaccines Completed 08/05/2020, 04/07, 07/26/2009 Cologuard Discontinued 03/03/2021, 02/27/2021 Colorectal Cancer Surveillance Discontinued RSV vaccine - (32-36 weeks) or 60+ years Completed 08/07/2023 CT Colonography Discontinued HPV Vaccines Aged Out No longer eligi ble based on patient's age to complete this topic Medical Devices Implanted Type Area Embedded Software Manager Device Identifier Shelf Expiration Date Model / [...] Pierce et al, N Engl J Med 2014;370(14):6609-0335) The normal value (reference range) for this assay is negative. COLOGUARD RE-SCREENING RECOMMENDATION: Periodic routine colorectal cancer screening is an important part of preventive healthcare for asymptomatic persons at average risk for colorectal cancer. Following a negative Cologuard result, the [place] Cancer Society and U.S. Multi-Society Task Force screening guidelines recommend a Cologuard re-screening interval of 3 years. References: [place] Cancer Society (ACS). Colorectal cancer prevention and early detection. [place], [place]: [place] Cancer Society; [updated 2015Jan 28]. https://www.cancer.org/cancer/xyrgg-ohwrum-uhcita/detection- diagnosis-staging/acs-recommendations.html. Accessed June 06, 2018; Yung DK, Med PECK, Ernesto DurantK, Colorectal Cancer Screening: Recommendations for Physicians and Patients from the U.S. Multi-Society Task Force on Colorectal Cancer Screening, Am J Gastroenterology 2017; 112:7000-7813. TEST TYPE: Composite algorithmic analysis of stool [...] interval of every 3 years by the [place] Cancer Society and U.S. Multi-Society Task Force. [...] can be accessed at the following location: www.[employer]Path[employer]ion/results. Additional description of the Cologuard test process, warnings and precautions can be found at www.cologuardtest.com. Rx only. Stool (Stool) 02/27/2021 9:5 5 PM CDT 03/01/2021 3:38 PM CDT us Igor Horn P.A.-C. LAB BODY FLUIDS AND ST OOLS ORDERABLES Final Result Performing Organization Address City/[facility]/ZIP Co de Phone Number [employer] [address] [place] [address] EXLI [facility] [facility], [address] [place] [address] * S-TSH (Thyroid-Stimulating Hormone - Sensitive) (02/15/2021 8:46 AM CDT) TSH, Sensitive 2.8 0.3 - 4.2 mIU/L 02/15/2021 11:24 AM CDT OWAT Blood (Blood, Venous) 02/15/2021 8:46 AM CDT 02/15/2021 10:39 AM CDT us Igor Horn P.A.-C. LAB BLOOD ADD-ON Final Result [facility] [address] [place] [id number], [facility] OWAT [facility] [place] [address] [place] [id number] * Comprehensive Metabolic Panel (02/15/2021 8:46 AM [...] Horn P.A.-C. LAB BLOOD ADD-ON Final Result [facility] [address] [place] [address], [facility] OWAT [facility] [place] [address] [place] [address] from Last 3 Months or Most Recently Relevant to Health Maintenance Insurance [facility] MEDICARE Care Teams Time Stamp Assembler Relationship Specialty Start Date End Date Elsewhere, Pcp PCP - General Internal Medicine 03/16/22
--- NOTE | 2024-08-12 13:30 | CRLHL7_ITS ---
For Patients: As a result of the Century Cures Act, medical imaging exams and procedure reports are released immediately into your electronic medical record. You may view this report before your referring provider. If you have questions, please contact your health care provider. DXA BONE MINERAL DENSITY STUDY Reason for exam: Aromatase inhibitors. Current height (in): 63. Weight (lb): 215. Menopause age: 52. Ethnicity: White. 1. Have you had a previous hip or vertebral fracture? No. 2. Have you had any fractures during your adult life which did not result from significant trauma (e.g., auto accident)? No. 3. Did either of your parents have a hip fracture? No. 4. Do you smoke? No. 5. Have you ever taken Glucocorticoids? No. 6. Do you have rheumatoid arthritis? No. 7. Do you have secondary osteoporosis? No. 8. Do you drink 3 or more alcoholic drinks per day? No. 9. Are you being treated for osteoporosis? No. 10. Have you ever taken any of the following medications: Actonel, Evista, Fosamax, Miacalcin, Reclast, Boniva, Forteo, HRT (i.e., estrogen/hormone therapy), Protelos, Prolia, Vitamin D, Calcium, other ??? please specify. ANSWER: Yes, vitamin D and calcium. 11. Do you have any of the following medical conditions: Anorexia or bulimia, asthma or emphysema, end stage renal disease, hyperparathyroidism, any seizure disorders, cancer, inflammatory bowel diseases, hysterectomy, other ??? please specify. ANSWER: Yes, asthma or emphysema, cancer, hysterectomy. 12. What was your maximum height (inches)? 66. 13. Do you perform weight bearing exercise regularly? Yes. 14. Do you regularly consume dairy products? Yes. 15. Do you drink caffeinated beverages? Yes. 16. At what age did your period start? 16. 17. Are you premenopausal? No. 18. How many full-term pregnancies have you had? 1. 19. Have you ever missed your period for more than 6 months in a row (not including or menopause)? No. TECHNIQUE: Bone mineral density study was performed using the [employer]. FINDINGS: The results of the study expressed as bone mineral density (BMD) are as follows: Lumbar spine L1 to L4: BMD: 0.859 g/cm2. T-score: -1.7. Z-score: 1.0 Neck Left: BMD: 0.691 g/cm2. T-score: -1.4. Z-score: 1.0 Right: BMD: 0.727 g/cm2. T-score: -1.1. Z-score: 1.3 Total Left: BMD: 0.970 g/cm2. T-score: 0.2. Z-score: 2.4 Right: BMD: 0.959 g/cm2. T-score: 0.1. Z-score: 2.3 IMPRESSION: Osteopenia. *Comparison exams done prior to 03/2020 were performed on different unit, [employer]. COMPARISON: Compared with scan of 08/22/2022, the bone mineral density has decreased by 0.2 percent at the spine and increased by 1.5 percent at the hip. FRAX 10-year Fracture Risk Major Osteoporotic Fracture: 12% Hip Fracture: 2.7% Reported Risk Factors: [place] () Neck BMD=0.691, BMI=38.1 Cristiana NINO:josé luis Transcribed: 5:36 p.m. [email or web address] josé luis/Dictated by: Osmar Verdugo MD @ 08/16/2024 10:31:00 PM (Electronically Signed)
== END 2024-08-12 13:21 | disposition home or self-care (01) ==
LOC: RAD 13:21
PROVIDERS: PCP Nurse Practitioner Family; Visit Provider Physician Assistant
DX: M85.89 Other specified disorders of bone density and structure, multiple sites (principal); Z79.811 Long term (current) use of aromatase inhibitors
CPT/HCPCS: 77080

== ENCOUNTER 2024-08-20 10:30 | Outpatient (RCR) | payer MEDICARE, BC, SELFPAY | END 2024-09-01 23:59 | disposition home or self-care (01) | LOC: CCIC 10:30 | PROVIDERS: PCP Nurse Practitioner Family; Visit Provider Internal Medicine Hematology & Oncology | DX: C50.912 Malignant neoplasm of unspecified site of left female breast (principal); Z17.0 Estrogen receptor positive status [ER+]; M85.80 Other specified disorders of bone density and structure, unspecified site; Z79.811 Long term (current) use of aromatase inhibitors | CPT/HCPCS: 99213; 99214; G0463 ==

== ENCOUNTER 2025-03-02 09:30 | Outpatient (CLI) | payer MEDICARE, BC, SELFPAY | END 2025-03-02 09:31 | disposition home or self-care (01) | LOC: KYNREF 09:32 | PROVIDERS: PCP Nurse Practitioner Family; Visit Provider Nurse Practitioner Family | DX: N39.0 Urinary tract infection, site not specified (principal); B95.2 Enterococcus as the cause of diseases classified elsewhere | CPT/HCPCS: 81001; 87086; 87186 ==

== ENCOUNTER 2025-03-23 15:17 | Outpatient (CLI) | payer MEDICARE, BC, SELFPAY | END 2025-03-23 15:18 | disposition home or self-care (01) | PROVIDERS: PCP Nurse Practitioner Family; Visit Provider Nurse Practitioner Family | DX: N39.0 Urinary tract infection, site not specified (principal) | CPT/HCPCS: 81001; 87086; 87186 ==

== ENCOUNTER 2025-04-08 09:23 | Outpatient (CLI) | payer MEDICARE, BC, SELFPAY | END 2025-04-08 09:24 | disposition home or self-care (01) | PROVIDERS: PCP Nurse Practitioner Family; Referring Provider Nurse Practitioner Family; Visit Provider Nurse Practitioner Family | DX: N39.0 Urinary tract infection, site not specified (principal) | CPT/HCPCS: 81001; 87086; 87186 ==

== ENCOUNTER 2025-04-27 09:46 | Outpatient (CLI) | payer MEDICARE, BC, SELFPAY | END 2025-04-27 09:47 | disposition home or self-care (01) | LOC: NFLDREF 04-28 04:08 | PROVIDERS: PCP Nurse Practitioner Family; Referring Provider Nurse Practitioner Family; Visit Provider Nurse Practitioner Family | DX: N39.0 Urinary tract infection, site not specified (principal) | CPT/HCPCS: 81001; 87086; 87186 ==

== ENCOUNTER 2025-05-17 12:30 | Outpatient (CLI) | payer MEDICARE, BC, SELFPAY | END 2025-05-17 12:31 | disposition home or self-care (01) | LOC: NFLDREF 05-20 14:23 | PROVIDERS: PCP Nurse Practitioner Family; Referring Provider Nurse Practitioner Family; Visit Provider Nurse Practitioner Family | DX: N39.0 Urinary tract infection, site not specified (principal) | CPT/HCPCS: 81001; 87086 ==

== ENCOUNTER 2025-05-26 13:24 | Outpatient (CLI) | payer MEDICARE, BC, SELFPAY ==
--- NOTE | 2025-05-26 14:00 | CRLHL7_ITS ---
For Patients: As a result of the Century Cures Act, medical imaging exams and procedure reports are released immediately into your electronic medical record. You may view this report before your referring provider. If you have questions, please contact your health care provider. Indication: Recurrent UTI by multiple organisms Technique: CT through the abdomen and pelvis following 106 mL Isovue 370 IV contrast Comparison: None Findings: Lower chest: Mild basilar scarring and/or atelectasis. Hepatobiliary: Hepatic steatosis. Spleen: Unremarkable. Pancreas: Unremarkable. Adrenal glands: Unremarkable. Kidneys: No significant parenchymal abnormality appreciated. No visualized calculi. No hydronephrosis. Bowel: No obstruction. Scattered diverticula. No focal perienteric or pericolonic stranding is appreciated. Appendectomy. Vascular: Calcified and noncalcified atherosclerosis. Lymph nodes: No gross lymphadenopathy. Peritoneum: No free air. No free fluid. : Grossly unremarkable appearance to the bladder. Status post hysterectomy. Soft tissues: Unremarkable. Bones: Degenerative changes of the spine and pelvis. Impression: 1. No significant abnormality appreciated to account for patient`s reported symptoms. 2. Hepatic steatosis. Please note that all CT scans at this facility use dose modulation, iterative reconstruction, and/or weight-based dosing when appropriate to reduce radiation dose to as low as reasonably achievable. Dictated by Arsh Coe MD @ 05/29/2025 8:55:32 PM (Electronically Signed)
[2025-05-26 14:13] LABS: Creatinine* 0.9 mg/dL (0.5-1.5); Estimated Glomerular Filt Rate 64 ml/min
== END 2025-05-26 13:25 | disposition home or self-care (01) ==
LOC: CT 13:26
PROVIDERS: PCP Nurse Practitioner Family; Visit Provider Nurse Practitioner Family
DX: N39.0 Urinary tract infection, site not specified (principal); K76.0 Fatty (change of) liver, not elsewhere classified
CPT/HCPCS: 36415; 74177; 82565; Q9967

== ENCOUNTER 2025-06-10 08:32 | Outpatient (CLI) | payer MEDICARE, BC, SELFPAY | END 2025-06-10 08:33 | disposition home or self-care (01) | LOC: KYNREF 11:31 | PROVIDERS: PCP Nurse Practitioner Family; Visit Provider Nurse Practitioner Family | DX: N39.0 Urinary tract infection, site not specified (principal) | CPT/HCPCS: 87086 ==

== ENCOUNTER 2025-06-15 13:09 | Outpatient (CLI) | payer MEDICARE, BC, SELFPAY ==
--- NOTE | 2025-06-15 13:00 | CRLHL7_ITS ---
For Patients: As a result of the Century Cures Act, medical imaging exams and procedure reports are released immediately into your electronic medical record. You may view this report before your referring provider. If you have questions, please contact your health care provider. INDICATION: BILATERAL SCREENING MAMMOGRAM, ASYMPTOMATIC 84 Y/O FEMALE COMPARISON: 06/05/2024, 05/24/2023, 07/26/2022, 06/22/2022 TECHNIQUE: Digital mammogram in CC and MLO projections including computer-aided detection (CAD) and tomosynthesis. BREAST COMPOSITION: There are scattered areas of fibroglandular density. FINDINGS: No suspicious findings. ASSESSMENT: BI-RADS 2 Benign RECOMMENDATION: Annual screening mammogram. A lay language report of this examination will be provided to the patient. Dictated by: Jj Bates MD @ 06/16/2025 11:02:06 (Electronically Signed)
== END 2025-06-15 13:10 | disposition home or self-care (01) ==
LOC: MAMMO 13:10
PROVIDERS: PCP Nurse Practitioner Family; Visit Provider Nurse Practitioner Family
DX: Z12.31 Encounter for screening mammogram for malignant neoplasm of breast (principal)
CPT/HCPCS: 77063; 77067

== ENCOUNTER 2025-06-22 09:30 | Outpatient (RCR) | payer MEDICARE, BC, SELFPAY | END 2025-08-31 23:59 | disposition home or self-care (01) | LOC: CCIC 09:30 | PROVIDERS: PCP Nurse Practitioner Family; Visit Provider Internal Medicine Hematology & Oncology | DX: C50.912 Malignant neoplasm of unspecified site of left female breast (principal); Z17.0 Estrogen receptor positive status [ER+]; M85.80 Other specified disorders of bone density and structure, unspecified site; Z79.811 Long term (current) use of aromatase inhibitors | CPT/HCPCS: 80053; 80061; 82043; 82570; 82607; 84439; 84443; 85025; 99213; 99214; G0463 ==

== ENCOUNTER 2025-06-29 09:42 | Outpatient (CLI) | payer MEDICARE, BC, SELFPAY | END 2025-06-29 09:43 | disposition home or self-care (01) | LOC: KYNREF 10:10 | PROVIDERS: PCP Nurse Practitioner Family; Visit Provider Nurse Practitioner Family | DX: E03.9 Hypothyroidism, unspecified (principal) | CPT/HCPCS: 84443 ==

== ENCOUNTER 2025-07-08 14:06 | Outpatient (CLI) | payer MEDICARE, BC, SELFPAY | END 2025-07-08 14:07 | disposition home or self-care (01) | LOC: NFLDREF 07-11 20:47 | PROVIDERS: PCP Nurse Practitioner Family; Referring Provider Nurse Practitioner Family; Visit Provider Nurse Practitioner Family | DX: N39.0 Urinary tract infection, site not specified (principal) | CPT/HCPCS: 81001; 87086; 87186 ==

== ENCOUNTER 2025-07-29 15:06 | Outpatient (CLI) | payer MEDICARE, BC, SELFPAY | END 2025-07-29 15:07 | disposition home or self-care (01) | LOC: NFLDREF 07-31 19:24 | PROVIDERS: PCP Nurse Practitioner Family; Referring Provider Nurse Practitioner Family; Visit Provider Nurse Practitioner Family | DX: N39.0 Urinary tract infection, site not specified (principal) | CPT/HCPCS: 87086 ==